=== PATIENT | male | born 1955 | race Caucasian/White ===

== ENCOUNTER 2022-12-26 10:32 | Outpatient (OUT) | payer MEDICARE, BC, SELFPAY ==
--- NOTE | 2022-12-26 10:42 | XR_ITS ---
[facility] [id number] Patient Name: FELIPE QUAN MRN: [id number] date: 1955 Sex: M Assigned Patient Location: LAB Current Patient Location: Accession/Order Number: [id number] Exam Date: 12/26/2022 10:52 Report Date: 12/27/2022 06:41 At the request of: BELLE PRUITT Procedure: XR lumbar spine 6V w bending EXAMINATION: XR lumbar spine 6V w bending HISTORY: Lumbar spondylosis M47.816 ; chronic low back pain radiating into hips and legs COMPARISON: No relevant comparison available. FINDINGS: BONES: L1 minimal grade 1 retrolisthesis on L2; stable between neutral, flexion, extension. L4 mild grade 1 anterior listhesis on L5 during flexion, with normal alignment in neutral and extension. Mild-moderate degenerative facet arthropathy L4-5, L5-S1. Bone encroachment on L5-S1 neural foramen. DISC SPACES: Marked narrowing L5-S1. Mild degenerative endplate changes without significant disc space narrowing T12-L1, L1-2. PARASPINOUS: Negative. No paraspinous abnormality is seen. OTHER: Negative. XR/XR lumbar spine 6V w bending IMPRESSION: 1. Degenerative disc disease of lower lumbar spine and multilevel mobile grade 1 listhesis of L4 on 5. Consider MRI for further evaluation. Electronically authenticated by: LUZMA YEAGER Date: 12/27/2022 06:41
[2022-12-26 11:00] LABS: Estimated Average Glucose 189 mg/dL; Glycohemoglobin A1C 8.2 % (4.5-6.2)
== END 2022-12-26 10:33 | disposition home or self-care (01) ==
LOC: LAB 10:33
PROVIDERS: PCP Internal Medicine; Visit Provider Internal Medicine
DX: E11.65 Type 2 diabetes mellitus with hyperglycemia (principal); M47.816 Spondylosis without myelopathy or radiculopathy, lumbar region; M51.36 Other intervertebral disc degeneration, lumbar region
CPT/HCPCS: 36415; 72114; 83036

== ENCOUNTER 2023-01-03 15:19 | Outpatient (RCR) | payer MEDICARE, BC, SELFPAY | END 2023-03-14 13:57 | disposition home or self-care (01) | LOC: PT 15:19 | PROVIDERS: PCP Internal Medicine; Visit Provider Internal Medicine | DX: M47.816 Spondylosis without myelopathy or radiculopathy, lumbar region (principal); M54.9 Dorsalgia, unspecified | CPT/HCPCS: 97012; 97110; 97112; 97113; 97140; 97162; 97530 ==

== ENCOUNTER 2023-04-27 07:58 | Outpatient (OUT) | payer MEDICARE, BC, SELFPAY ==
[2023-04-27 08:20] LABS: Basophils Percent Auto 0.8 % (0.2-2.0); Eosinophils Absolute Auto 0.1 10^3/uL (0.0-0.7); Eosinophils Percent Auto 2.3 % (0.9-7.0); Hematocrit 43.3 % (42.0-54.0); Hemoglobin 14.8 g/dL (14.0-18.0); Immature Granulocytes Abs Auto 0.01 10^3/uL (0.00-0.03); Immature Granulocytes Pct Auto 0.2 % (0.0-0.5); Lymphocytes Absolute Auto 0.9 10^3/uL (1.2-3.8); Lymphocytes Percent Auto 17.8 % (20.5-60.0); Mean Corpuscular HGB Conc 34.2 g/dL (29.9-35.2); Mean Corpuscular Hemoglobin 30.4 pg (25.9-34.0); Mean Corpuscular Volume 88.9 fL (80.0-94.0); Mean Platelet Volume 12.2 fL (9.5-13.5); Monocytes Absolute Auto 0.4 10^3/uL (0.3-0.8); Monocytes Percent Auto 7.4 % (1.7-12.0); Neutrophils Absolute Auto 3.5 10^3/uL (1.4-6.5); Neutrophils Percent Auto 71.5 % (43.0-75.0); Platelet Count 160 10^3/uL (150-450); Red Blood Count 4.87 10^6/uL (4.70-6.10); Red Cell Distribution Width 11.4 % (11.0-15.0); White Blood Count 4.9 10^3/uL (4.0-11.0)
[2023-04-27 08:58] LABS: Anion Gap 13.1; BUN Creatinine Ratio 15.4; Calcium 8.6 mg/dL (8.5-10.1); Carbon Dioxide 27.5 mmol/L (21.0-32.0); Chloride 102 mmol/L (98-107); Chol HDL Ratio 2.7; Cholesterol 130 mg/dL (<=200); Estimated GFR (African America >60 (>=60); Estimated GFR (Non-African Ame >60 (>=60); Glucose 184 mg/dL (74-106); HDL Cholesterol 49 mg/dL (40-60); LDL Cholesterol Calculated 56.8 mg/dL; Potassium 4.6 mmol/L (3.5-5.1); Sodium 138 mmol/L (136-145); Triglycerides 121 mg/dL (<=150); VLDL CHOLESTEROL 24.2 mg/dL
[2023-04-27 09:11] LABS: Prostate Specific Antigen Scrn 0.88 ng/mL (<=4.00)
[2023-04-27 09:14] LABS: Estimated Average Glucose 197 mg/dL; Glycohemoglobin A1C 8.5 % (4.5-6.2)
[2023-04-27 09:33] LABS: Microalbumin Urine Random <1.3 mg/dL (<=30.0)
== END 2023-04-27 07:59 | disposition home or self-care (01) ==
LOC: LAB 07:59
PROVIDERS: PCP Internal Medicine; Visit Provider Internal Medicine
DX: E11.65 Type 2 diabetes mellitus with hyperglycemia (principal); I10 Essential (primary) hypertension; E78.00 Pure hypercholesterolemia, unspecified; Z12.5 Encounter for screening for malignant neoplasm of prostate; D69.6 Thrombocytopenia, unspecified
CPT/HCPCS: 36415; 80048; 80061; 81001; 82043; 83036; 85025; G0103

== ENCOUNTER 2023-05-20 13:00 | Outpatient (OUT) | payer MEDICARE, BC, SELFPAY ==
--- NOTE | 2023-05-20 15:21 | PM.CN ---
Consult Note: HPI Data of Consult Patient: new to practice Consult date: 05/20/23 Requesting Physician: Dm Cyr MD Primary Care Provider: Bogdan Green DO Consult Narrative Reason for consult: low back pain Narrative: 67yom who presents for evaluation. worsening axial low back pain that has persisted for >1 year. underwent physical therapy in the summer and continues in a course of provider directed home exercises, which have not provided significant relief for >6 weeks >3x/week. imaging reviewed, significant for facet arthropathy in lower lumbar spine. uses otc pain meds as needed. cc:: CC: Dm Cyr MD Review of Systems ROS Status of ROS 10 or more systems reviewed and unremarkable except as noted in history and below Exam Narrative Exam Narrative: Psych-alert and oriented x 3. Attentive and appropriate, constitutionally normal, displays normal mood and affect per situation.? There are no obvious deficits in memory, reasoning, or intellect.? Skin-no obvious rashes, bruising, erythema noted to the patient's area of pain. Extremities- extremities are warm with minimal edema and palpable pulses. Lumbar-no significant tenderness to palpation noted in the lumbar spine and paraspinal musculature.? Pain is elicited with extension, and lateral rotation of the lumbar spine. Range of motion is slightly diminished with these motions due to pain. Facet loading maneuvers are positive bilaterally and do appear to be concordant with the patient's normal complaints of pain.? Coordination remains intact.? Gait remains non-antalgic. Assessment and Plan Assessment and Plan (1) Lumbar spondylosis: Plan 67yom who presents for evaluation. failed conservatives measures, as noted. imaging reviewed, as noted. given symptoms and imaging, prudent to attempt diagnostic bilateral L4-5, l5-S1 medial branch block under fluoroscopic guidance with intention of proceeding to radiofrequency ablation. he is in agreement. meds reviewed, no changes. follow up after procedure.
== END 2023-05-20 13:01 | disposition home or self-care (01) ==
LOC: PM 13:01
PROVIDERS: PCP Internal Medicine; Visit Provider Anesthesiology
DX: M47.816 Spondylosis without myelopathy or radiculopathy, lumbar region (principal)
CPT/HCPCS: G0463

== ENCOUNTER 2023-06-24 08:24 | Day surgery (SDC) | payer MEDICARE, BC, SELFPAY ==
--- OUTSIDE RECORDS SUMMARY | 2023-06-24 08:28 | XMS_ITS | CCD ---
Author Name Unknown Address [address] [place] [address] Organization [facility] Care Team Providers Care Mma Fighter Name Role Phone BOGDAN GREEN Primary Care Physician [phone] DR BOGDAN GREEN Primary Care Unavailable FRANCISCA ., DIMAS Admitting Unavailable FRANCISCA ., DIMAS Attending Unavailable FRANCISCA ., DIMAS Consulting Unavailable MARIBEL, MALENA Consulting Unavailable GUERRERO, FILIPPO Consulting Unavailable REQUEST, DR CONCEPCION LISTED Admitting Unavaila ble REQUEST, DR CONCEPCION LISTED Attending Unavaila ble PETER, DR ODONNELL Primary Care Unavailable REQUEST, DR CONCEPCION LISTED Consulting Unavaila ble REQUEST, DR CONCEPCION LISTED Admitting Unavaila ble REQUEST, DR CONCEPCION LISTED Attending Unavaila ble BALL, DR ODONNELL Primary Care Unavailable REQUEST, DR CONCEPCION LISTED Consulting Unavaila ble BALL, DR ODONNELL Admitting Unavailable BALL, DR ODONNELL Attending Unavailable BALL, DR ODONNELL Primary Care Unavailable BALL, DR ODONNELL Admitting Unavailable BALL, DR ODONNELL Attending Unavailable BALL, DR ODONNELL Primary Care Unavailable BALL, DR ODONNELL Consulting Unavailable AMBRIZ ., DR VAUGHN Admitting Unavailable AMBRIZ ., DR VAUGHN Attending Unavailable BALL, DR ODONNELL Primary Care Unavailable AMBRIZ ., DR VAUGHN Consulting Unavailable BALL, DR ODONNELL Admitting Unavailable BALL, DR ODONNELL Attending Unavailable BALL, DR ODONNELL Primary Care Unavailable BALL, DR ODONNELL Consulting Unavailable Peter, Bogdan Unavailable Hola AMBRIZ Attending Unavailable Hola AMBRIZ Attending Unavailable Klarissa MCMANUS, Dm Santos Attending Unavailable Allergies Allergy Classification Reported Allergen(s) Allergy Type Date of Onset Reaction(s) Facility (1 source) No Known Medication Allergies; 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: [No Known Medication Allergies] Propensity to adverse reactions (disorder) [facility] Repository (2 sources) patient allergy list reviewed by nurse or physicia Propensity to adverse reactions 6 Comment:Done [employer] Other Medications Current Medications Medication Drug Class(es) Dates Sig (Normalized) Sig (Original) allopurinol 100 mg oral tablet (9 sources) Xanthine Oxidase Inhibitor Start: 10-06-2021 take 1 mg by mouth twice daily allopurinol 100 mg Tab mg tab(s), Oral, BID, Refills(s) 0 Start Date: 10/06/21 Status: Ordered take 1 tablet by osbaldo th every twenty-four hours Allopurinol 100 MG 1 tablet Orally Once a day for 30 days Active amLODIPine 5 mg oral tablet (10 sources) Dihydropyridine Calcium Channel Andrew Start: 10-22-2022 take 1 tablet by mouth every twenty-four hours amLODIPine Besylate 5 MG 1 tablet Orally Once a day October, Active atorvastatin 10 mg oral tablet (17 sources) HMG-CoA Reductase Inhibitor Start: 11-09-2022 atorvastatin 10 mg Tab Refills(s) 0 Start Date: 11/09/22 Status: Ordered benazepril hydrochloride 5 mg oral tablet (18 sources) Angiotensin Converting Enzyme Inhibitor Start: 03-25-2019 take 1 tablet by mouth once daily benazepril 5 mg oral tablet 5 mg = 1 tab(s), Oral, Daily Start Date: 03/25/19 Status: Ordered take 1 tablet by osbaldo th every twenty-four hours Benazepril HCl 20 MG 1 tablet Orally Onc e a day Active take 1 tablet by osbaldo th every twenty-four hours Benazepril HCl 10 MG 1 tablet Orally Onc e a day for 30 days Active 0.5 ml dulaglutide 3 mg/ml auto-injector (17 sources) GLP-1 Receptor Agonist Start: 08-23-2022 inject 1.5 mg by subcutaneous injection every week Trulicity 1.5 MG/0.5ML 1.5mg Subcutaneous weekly for 28 days Aug, Active Start: 10-03-2020 Trulicity Pen SubCutaneous, qWeek, Refills(s) 0 Start Date: 10/03/20 Status: Ordered Trulicity 3 MG/0 .5ML INJECT 1 PEN UNDER THE SKIN ONCE A WEEK for 28 Not-Taking Trulicity 3 MG/0 .5ML INJECT 1 PEN UNDER THE SKIN ONCE A WEEK for 28 Active finasteride 5 mg oral tablet (9 sources) 5-alpha Reductase Inhibitor Start: 11-09-2022 End: 11-04-2023 take 1 tablet by mouth once daily finasteride 5 mg Tab 5 mg = 1 tab(s), Oral, Daily, X 90 day(s), # 90 tab(s), Refills(s) 3, Pharmacy: [facility]/pharmacy #[id number], 195, cm, 11/09/22 11:00:00 EDT, Height/Length Dosing, 111, kg, 11/09/22 11:00:00 EDT, Weight Dosing Start Date: 11/09/22 Stop Date: 11/04/23 Status: Ordered Start: 10-06-2021 take 1 tablet by osbaldo th once daily finasteride 5 mg Tab 5 mg = 1 tab(s), Oral, Daily, # 90 tab(s), Refills(s) 3, Pharmacy: [facility]/pharmacy #[id number], 195, cm, 10/06/21 8:16:00 EDT, Height/Length Dosing, 109.5, kg, 10/06/21 8:16:00 EDT, Weight Dosing Start Date: 10/06/21 Status: Ordered take 1 tablet by osbaldo th every twelve hours Finasteride 5 MG 1 tablet Orally twice a day Active glimepiride 4 mg oral tablet (17 sources) Sulfonylurea Start: 11-09-2022 glimepiride 4 mg Tab Refills(s) 0 Start Date: 11/09/22 Status: Ordered take 2 tablets by mo [facility] every twenty-four hours Glimepiride 4 MG 2 tablets Orally once a day Active Glimepiride 4 MG 2 tablets taken 30 minutes prior to first meal of day Orally Once a day Active 3 ml insulin glargine 100 unt/ml pen injector (20 sources) Insulin Analog Start: 11-09-2022 Lantus Solosta r Pen 100 units/mL subcutaneous solution Refills(s) 0 Start Date: 11/09/22 Status: Ordered Start: 09-25-2022 Lantus SoloSta r 100 UNIT/ML 25 units Subcutaneous q HS Sep, Active Start: 09-25-2022 inject 10 [IU] by coley bcutaneous injection once at bedtime Basaglar KwikPen 100 UNIT/ML 10 units Subcutaneous q HS for 30 days Sep, Not-Taking Start: 09-25-2022 metFORMIN hydrochloride 1000 mg oral tablet (18 sources) Biguanide Start: 03-25-2019 take 1 tablet by mouth twice daily metformin 1000 mg Tab 1,000 mg = 1 tab(s), Oral, BID Start Date: 03/25/19 Status: Ordered omeprazole 20 mg oral tablet (7 sources) Proton Pump Inhibitor take 1 tablet by mouth once daily PriLOSEC OTC 20 MG 1 tablet 30 minutes before morning meal Orally Once a day Active OneTouch Ultra - (16 sources) OneTouch Ultra - USE TO TEST BLOOD SUGAR ONCE A DAY for 50 Active Pen [place] 10/30 (12 sources) Start: 09-27-2022 Start: 09-27-2022 Pen [place] Use to inject insulin qd SC daily for 30 days Sep, Active tamsulosin hydrochloride 0.4 mg oral capsule (9 sources) alpha-Adrenergic Andrew Start: 10-06-2021 End: 10-27-2023 take 1 capsule by mouth twice daily tamsulosin 0.4 mg Cap 0.4 mg = 1 cap(s), Oral, BID, X 30 day(s), # 60 cap(s), Refills(s) 11, Pharmacy: [facility]/pharmacy #[id number], 195, cm, 10/06/21 8:16:00 EDT, Height/Length Dosing, 109.5, kg, 10/06/21 8:16:00 EDT, Weight Dosing Start Date: 11/01/22 Stop Date: 10/27/23 Status: Ordered {20 (nirmatrelvir 150 MG Oral Tablet) / 10 (ritonavir 100 MG Oral Tablet) } Pack [Paxlovid 5-Day] (1 source) Start: 05-10-2023 Paxlovid (300/100) 20 x 150 MG & 10 x 100MG as directed Orally bid for 5 days Apr, Active Completed/Discontinued Medications Medication Drug Class(es) Dates Sig (Normalized) Sig (Original) ascorbic acid 4700 mg / polyethylene glycol 3350 [id number] mg / potassium chloride 1015 mg / sodium ascorbate 5900 mg / sodium chloride 2690 mg / sodium sulfate 7500 mg powder for oral solution (16 sources) Osmotic Laxative, Vitamin C Start: 04-07-2014 MoviPrep 100 GM as directed Orally as directed for 1 dose(s) Mar, Not-Taking azithromycin 250 mg oral tablet (7 sources) Macrolide Antimicrobial Start: 11-26-2022 Azithromycin 250 MG as directed Orally 2 tabs po today, then 1 tab daily x 4 more days for 5 Nov, Not-Taking benzonatate 200 mg oral capsule (7 sources) Non-narcotic Antitussive Start: 11-26-2022 take 1 capsule by mouth every eight hours Benzonatate 200 MG 1 capsule Orally Three times a day for 10 day(s) Nov, Not-Taking pioglitazone 15 mg oral tablet (14 sources) Peroxisome Proliferator Receptor alpha Agonist, Peroxisome Proliferator Receptor gamma Agonist, Thiazolidinedione Start: 09-21-2022 take 1 tablet by mouth every twenty-four hours Pioglitazone HCl 15 MG 1 tablet Orally Once a day for 30 days Sep, Not-Taking Problems Active Problems Problem Classification Problem Date Documented Date Episodic/Chronic Coagulation and hemorrhagic disorders (10 sources) Primary thrombocytopenia; 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: [Primary thrombocytopenia, unspecified] Onset: 09-20-2018 Chronic Conditions associated with dizziness or vertigo (1 source) Dizziness and giddiness; 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: [DIZZINESS AND GIDDINESS] Onset: 07-03-2022 Episodic Diabetes mellitus with complications (20 sources) Type 2 diabetes mellitus with hyperglycemia; 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: [Type 2 diabetes mellitus] Onset: 02-10-2015 Chronic Diabetes mellitus without complication (13 sources) Diabetes mellitus; 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: [Type 2 diabetes mellitus without complications] Onset: 12-15-2013 03-25-2019 Chronic Disorders of lipid metabolism (20 sources) Pure hypercholesterolemia, unspecified; 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: [Hypercholesterolemia ] Onset: 06-07-2015 Chronic Esophageal disorders (20 sources) Gastro-esophageal reflux disease with esophagitis; 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: [Gastroesophageal reflux disease with esophagitis without hemorrhage] Chronic Essential hypertension (20 sources) Essential (primary) hypertension; 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: [Essential hypertension] Onset: 04-23-2022 Chronic Genitourinary symptoms and ill-defined conditions (4 sources) Blood in urine; 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: [Nocturia] 03-25-2019 Episodic Gout and other crystal arthropathies (8 sources) Gout; 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: [Idiopathic gout, right knee] Onset: 04-18-2022 03-25-2019 Chronic Hyperplasia of prostate (12 sources) Benign prostatic hypertrophy with outflow obstruction; 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: [Benign prostatic hyperplasia with lower urinary tract symptoms] Onset: 03-05-2014 Chronic Osteoarthritis (4 sources) Osteoarthritis of knee; 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: [Bilateral primary osteoarthritis of knee] Onset: 05-09-2015 Chronic Other aftercare (1 source) Other prison (current) drug therapy; 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: [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 THERAPY] Onset: 07-03-2022 Episodic Other aftercare (1 source) prison (current) use of oral hypoglycemic drugs; 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: [SKILLED NURSING USE ORAL HYPOGLYCEMIC DX] Onset: 07-03-2022 Episodic Other aftercare (12 sources) Long-term current use of insulin; 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: [prison (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] Episodic Other aftercare (2 sources) 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 Episodic Other aftercare (2 sources) Long-term current use of drug therapy; 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: [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] Episodic Other and unspecified benign neoplasm (13 sources) Tubular adenoma of colon; 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: [Tubular adenoma of colon] Episodic Other and unspecified benign neoplasm (16 sources) Benign neoplasm of colon; 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: [Benign neoplasm of descending colon] Episodic Other and unspecified benign neoplasm (2 sources) Benign neoplasm of descending colon; 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: [Benign neoplasm of descending colon] Episodic Other connective tissue disease (3 sources) Personal history of other diseases of the musculoskeletal system and connective tissue Episodic Other connective tissue disease (2 sources) H/O: musculoskeletal disease; 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: [Personal history of other diseases of the musculoskeletal system and connective tissue] Episodic Other nutritional; endocrine; and metabolic disorders (7 sources) Body mass index 30+ - obesity; 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: [Body mass index (BMI) 31.0-31.9, adult] Chronic Other nutritional; endocrine; and metabolic disorders (7 sources) Obesity caused by energy imbalance; 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: [Other obesity due to excess calories] Chronic Other nutritional; endocrine; and metabolic disorders (1 source) Other obesity due to excess calories Chronic Other nutritional; endocrine; and metabolic disorders (1 source) Body mass index (BMI) 31.0-31.9, adult Chronic Other nutritional; endocrine; and metabolic disorders (2 sources) Obesity; 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: [Obesity, unspecified] Onset: 12-15-2013 Chronic Other nutritional; endocrine; and metabolic disorders (4 sources) Overweight; 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: [Overweight] Onset: 05-09-2015 Episodic Other screening for suspected conditions (not mental disorders or infectious disease) (5 sources) Raised prostate specific antigen; 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: [Elevated prostate specific antigen [PSA]] Onset: 10-06-2021 Episodic Spondylosis; intervertebral disc disorders; other back problems (20 sources) Lumbar spondylosis; 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: [Spondylosis without myelopathy or radiculopathy, lumbar region] Chronic Unclassified (1 source) CONTACT W/AND (SUSP) EXPOS COVID-19; 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: [CONTACT W/AND (SUSP) EXPOS COVID-19] Onset: 07-03-2022 Past or Other Problems Problem Classification Problem Date Documented Da te Episodic/Chronic Acute bronchitis (2 sources) Acute bronchitis; 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: [Acute bronchitis, unspecified] Onset: 07-13-2015 Episodic Esophageal disorders (4 sources) Esophageal disorders; 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: [Gastro-esophageal reflux disease with esophagitis, without bleeding] Hemorrhoids (4 sources) External hemorrhoids; 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: [External hemorrhoids with other complication] Onset: 11-30-2016 Episodic Joint disorders and dislocations; trauma-related (2 sources) Current tear of medial cartilage AND/OR meniscus of knee; 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: [Tear of medial cartilage or meniscus of knee, current] Onset: 02-10-2015 Episodic Malaise and fatigue (6 sources) Weakness; 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: [Malaise and fatigue] Onset: 04-26-2018 Episodic Nonspecific chest pain (2 sources) Chest pain; 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: [Other chest pain] Onset: 06-07-2015 Episodic Other connective tissue disease (2 sources) Disorder of soft tissue; 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: [Other specified soft tissue disorders] Onset: 12-15-2013 Episodic Other lower respiratory disease (2 sources) Cough; 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: [Cough, unspecified] Onset: 07-13-2015 Episodic Other non-traumatic joint disorders (2 sources) Arthralgia of the lower leg; 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: [Pain in unspecified knee] Onset: 12-15-2013 Episodic Other nutritional; endocrine; and metabolic disorders (4 sources) Body mass index 25-29 - overweight; 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: [Body mass index 28.0-28.9, adult] Onset: 07-13-2015 Episodic Varicose veins of lower extremity (4 sources) Venous varices; 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: [Asymptomatic varicose veins] Onset: 12-15-2013 Episodic Viral infection (1 source) COVID-19 Results Test Name Value Interpretation Reference Range Facility GLYCOHEMOGLOBIN A1Con 2022 ADA RECOMMENDATION SEE BELOW Normal [facility] Comment on above: Result Comment: ADA RECOMMENDED LIMIT 4.0 - 6.0 ADA THERAPEUTIC TARGET < 7.0 ACTION SUGGESTED > 7.0 Performed By: #### B MP, LIPID, ALT, URIC #### [facility] [address] [address] [address] Jorge L Carey Glucose [Mass/Vol] 148 mg/dL Normal [facility] Comment on above: Performed By: #### B MP, LIPID, ALT, URIC #### [facility] [address] [address] [address] Jorge L Carey HbA1c (Bld) [Mass fraction] 6.8 % Critically high 4.5-6.2 [facility] Comment on above: Performed By: #### B MP, LIPID, ALT, URIC #### [facility] [address] [address] [address] Jorge L Carey CARDIAC DANAY ADMITon 023 CK [Catalytic activity/Vol] 59 U/L Normal 39-308 [facility] Comment on above: Performed By: #### C MP, CMADM #### [facility] [address] [address] [address] Jorge L Carey CK.MB [Mass/Vol] 0.99 ng/mL Normal <=3.60 [facility] Comment on above: Performed By: #### C MP, CMADM #### [facility] [address] [address] [address] Jorge L Carey HSTROP 10.0 pg/mL Normal 4.0-76.1 [facility] Comment on above: Result Comment: CUT- OFF POINTS HAVE BEEN ESTABLISHED BASED ON THE FOURTH UNIVERSAL DEFINITIONS OF MYOCARDIAL INFARCTION. THE UPPER REFERENCE LIMIT (URL) OF TROPONIN, DEFINED THE 99TH PERCENTILE OF cTnI DISTRIBUTION IN A REFERENCE POPULATION, HAS BEEN CONFIRMED THE DECISION THRESHOLD FOR SD DIAGNOSIS. Performed By: #### C MP, CMADM #### [facility] [address] [address] [address] Jorge L Carey GARLAND 52 ng/mL Normal 16-96 [facility] Comment on above: Performed By: #### C MP, CMADM #### [facility] [address] [place] [address] Dr. Jorge L Carey CBC AUTO DIFFon 07-01-2022 BASO # 0.0 103/ul Normal 0.0-0.1 [facility] Comment on above: Performed By: #### B MP, LIPID, ALT, URIC #### [facility] [address] [place] [address] Dr. Jorge L Carey Basophils/100 WBC (Bld) 0.3 % Normal 0.2-2.0 [facility] Comment on above: Performed By: #### B MP, LIPID, ALT, URIC #### [facility] [address] [place] [address] Dr. Jorge L Carey EO # 0.1 103/ul Normal 0.0-0.7 [facility] Comment on above: Performed By: #### B MP, LIPID, ALT, URIC #### [facility] [address] [place] [address] Dr. Jorge L Carey Eosinophils/100 WBC (Bld) 0.9 % Normal 0.9-7.0 [facility] Comment on above: Performed By: #### B MP, LIPID, ALT, URIC #### [facility] [address] [place] [address] Dr. Jorge L Carey Erythrocyte distribution width (RBC) [Ratio] 11.7 % Normal 11.0-15.0 [facility] Comment on above: Performed By: #### B MP, LIPID, ALT, URIC #### [facility] [address] [place] [address] Dr. Jorge L Carey Hematocrit (Bld) [Volume fraction] 41.1 % Critically low 42.0-54.0 [facility] Comment on above: Performed By: #### B MP, LIPID, ALT, URIC #### [facility] [address] [place] [address] Dr. Jorge L Carey Hemoglobin (Bld) [Mass/Vol] 14.5 g/dL Normal 14.0-18.0 [facility] Comment on above: Performed By: #### B MP, LIPID, ALT, URIC #### [facility] [address] [place] [address] Dr. Jorge L Carey IG # 0.02 10e3/ul Normal 0.00-0.03 [facility] Comment on above: Performed By: #### B MP, LIPID, ALT, URIC #### [facility] [address] [place] [address] Dr. Jorge L Carey IG % 0.3 % Normal 0.0-0.5 [facility] Comment on above: Performed By: #### B MP, LIPID, ALT, URIC #### [facility] [address] [place] [address] Dr. Jorge L Carey LYMPH # 1.1 103/ul Critically low 1.2-3.8 [facility] Comment on above: Performed By: #### B MP, LIPID, ALT, URIC #### [facility] [address] [place] [address] Dr. Jorge L Carey Lymphocytes/100 WBC (Bld) 16.6 % Critically low 20.5-60.0 [facility] Comment on above: Performed By: #### B MP, LIPID, ALT, URIC #### [facility] [address] [place] [address] Dr. Jorge L Carey MANUAL DIFF REQ NO Normal [facility] Comment on above: Performed By: #### B MP, LIPID, ALT, URIC #### [facility] [address] [place] [address] Dr. Jorge L Carey MCH (RBC) [Entitic mass] 30.1 pg Normal 25.9-34.0 [facility] Comment on above: Performed By: #### B MP, LIPID, ALT, URIC #### [facility] [address] [place] [address] Dr. Jorge L Carey MCHC (RBC) [Mass/Vol] 35.3 g/dL Critically high 29.9-35.2 [facility] Comment on above: Performed By: #### B MP, LIPID, ALT, URIC #### [facility] [address] [place] [address] Dr. Jorge L Carey MCV (RBC) [Entitic vol] 85.4 fL Normal 80.0-94.0 [facility] Comment on above: Performed By: #### B MP, LIPID, ALT, URIC #### [facility] [address] [place] [address] Dr. Jorge L Carey MONO # 0.4 103/ul Normal 0.3-0.8 [facility] Comment on above: Performed By: #### B MP, LIPID, ALT, URIC #### [facility] [address] [place] [address] Dr. Jorge L Carey Monocytes/100 WBC (Bld) 5.1 % Normal 1.7-12.0 [facility] Comment on above: Performed By: #### B MP, LIPID, ALT, URIC #### [facility] [address] [place] [address] Dr. Jorge L Carey NEUT # 5.3 103/ul Normal 1.4-6.5 [facility] Comment on above: Performed By: #### B MP, LIPID, ALT, URIC #### [facility] [address] [place] [address] Dr. Jorge L Carey Neutrophils/100 WBC (Bld) 76.8 % Critically high 43.0-75.0 [facility] Comment on above: Performed By: #### B MP, LIPID, ALT, URIC #### [facility] [address] [place] [address] Dr. Jorge L Carey Platelet mean volume (Bld) [Entitic vol] 12.1 fL Normal 9.5-13.5 [facility] Comment on above: Performed By: #### B MP, LIPID, ALT, URIC #### [facility] [address] [place] [address] Dr. Jorge L Carey PLT 147 103/ul Critically low 150-450 [facility] Comment on above: Performed By: #### B MP, LIPID, ALT, URIC #### [facility] [address] [place] [address] Dr. Jorge L Carey RBC 4.81 106/ul Normal 4.70-6.10 [facility] Comment on above: Performed By: #### B MP, LIPID, ALT, URIC #### [facility] [address] [place], [place] [address] Dr. Jorge L Carey WBC 6.9 103/ul Normal 4.0-11.0 [facility] Comment on above: Performed By: #### B MP, LIPID, ALT, URIC #### [facility] [address] [place], [place] [address] Dr[address] HEAD WO CONon 07-01-2022 CT HEAD WO CON NONCONTRAST CT SCAN OF THE HEAD CT HEAD WO CON HISTORY: HEADACHE in a 66-year-old male TECHNIQUE: Multiple axial images are taken from the level the vertex down to the base of the skull without the use of IV contrast. Images were then reconstructed in the sagittal and coronal planes. This exam was performed according to our departmental dose-optimization program which includes use of Automated Exposure Control, adjustment of the mA and/or kV according to patient size and/or use of iterative reconstruction technique. COMPARISON: None. FINDINGS: Brain Parenchyma: No intracranial mass. No intracranial hemorrhage. [place]-white matter within expected limits of normal for patient's age. Posterior fossa: Normal. Midline shift: None Extra-axial fluid collection: None Ventricles: Normal. Mastoid air cells: Normal. Sinuses: Normal. Cranium: No depressed skull fracture. Soft tissues: Normal. Orbits: Normal. IMPRESSION: 1. No noncontrast CT evidence for acute intracranial pathology. 2. If symptoms continue and if clinically indicated, MRI may help better delineate. Electronically authenticated by: MALENA LÓPEZ Date: 2022-07-01 20:24 Normal [facility] SARS-CoV-2 (COVID-19) RNA EDVIN+probe Ql (Unsp spec) Not detected Normal NOT DETECTED [facility] Comment on above: Result Comment: When diagnostic testing is negative, the possibility of a false negative should be considered in the context of a patient's recent exposures and the presence of clinical signs and symptoms consistent with SARS-CoV-2. This test is not yet approved or cleared by the [place] FDA. When there are no FDA-approved or cleared tests available, and other criteria are met, FDA can make tests available under an emergency access mechanism called an Emergency Use Authorization (EUA). The EUA for this test is supported by the [place] of Health and Human Service's declaration that circumstances exist to justify the emergency use of in vitro diagnostics for the detection and/or diagnosis of the virus that causes COVID-19. This EUA will remain in effect for the duration of the COVID-19 declaration justifying emergency of IVDs, unless it is terminated or revoked by the FDA (after which the test may no longer be used). Performed By: #### C VDTBH #### [facility] [address] [place] [address] Dr. Jorge L Carey D-DIMERon 07-01-2022 D-DIMER 0.21 mg/L FEU Normal <=0.59 [facility] Comment on above: Performed By: #### B MP, LIPID, ALT, URIC #### [facility] [address] [place] [address] Dr. Jorge L Carey D-DIMER COMMENTS SEE BELOW Normal [facility] Comment on above: Result Comment: Incr eases in D-Dimer concentration observed with thromboembolic events can be variable due to localization, size, and age of the thrombus. Therefore, a thromboembolic event cannot be diagnosed with certainty on the basis of the reference range. D-Dimers may also be elevated for a variety of disorders including: advanced age, , coronary disease, cancer, liver disease, infection, inflammation, hematoma, DIC, trauma, post-surgery, diabetes, thrombolytic or anticoagulant therapy, stress, and generalized hospitalization. Performed By: #### B MP, LIPID, ALT, URIC #### [facility] [address] [place] [address] Dr. Jorge L Carey ER URINE PROFILEon 3 Bilirubin Ql (U) Negative Normal NEGATIVE [facility] Comment on above: Performed By: #### B MP, LIPID, ALT, URIC #### [facility] [address] [place] [address] Dr. Jorge L Carye Clarity (U) CLEAR Normal CLEAR [facility] Comment on above: Performed By: #### B MP, LIPID, ALT, URIC #### [facility] [address] [place] [address] Dr. Jorge L Carey Color (U) LT. YELLOW Normal YELLOW [facility] Comment on above: Performed By: #### B MP, LIPID, ALT, URIC #### [facility] [address] [place] [address] Dr. Jorge L HERNANDEZ A micrscopic examination will be performed if indicated. Normal [facility] Comment on above: Performed By: #### B MP, LIPID, ALT, URIC #### [facility] [address] [address] [address] Jorge L Carey Glucose Ql (U) Negative Normal NEGATIVE [facility] Comment on above: Performed By: #### B MP, LIPID, ALT, URIC #### [facility] [address] [place] [address] Dr. Jorge L Carey Hemoglobin Ql (U) Negative Normal NEGATIVE [facility] Comment on above: Performed By: #### B MP, LIPID, ALT, URIC #### [facility] [address] [place] [address] Dr. Jorge L Carey Ketones Ql (U) Negative Normal NEGATIVE [facility] Comment on above: Performed By: #### B MP, LIPID, ALT, URIC #### [facility] [address] [place] [address] Dr. Jorge L Carey LEUKOCYTES Negative Normal NEGATIVE [facility] Comment on above: Performed By: #### B MP, LIPID, ALT, URIC #### [facility] [address] [place] [address] Dr. Jorge L Carey Nitrite Ql (U) Negative Normal NEGATIVE [facility] Comment on above: Performed By: #### B MP, LIPID, ALT, URIC #### [facility] [address] [place] [address] Dr. Jorge L Carey pH (U) 6.0 [pH] Normal 5-9 [facility] Comment on above: Performed By: #### B MP, LIPID, ALT, URIC #### [facility] [address] [place] [address] Dr. Jorge L Carey SPEC GRAVITY 1.020 Normal 1.005-<=1.025 [facility] Comment on above: Performed By: #### B MP, LIPID, ALT, URIC #### [facility] [address] [place] [address] Dr. Jorge L Carey UA PROTEIN Negative Normal NEGATIVE/ TRACE [facility] Comment on above: Performed By: #### B MP, LIPID, ALT, URIC #### [facility] [address] [place] [address] Dr. Jorge L Carey UR MICRO IND NOT INDICATED Normal [facility] Comment on above: Performed By: #### B MP, LIPID, ALT, URIC #### [facility] [address] [place] [address] Dr. Jorge L Carey Urobilinogen Qn (U) 1.0 {Ila'U}/dL Normal 0.2 - 1. 0 [facility] Comment on above: Performed By: #### B MP, LIPID, ALT, URIC #### [facility] [address] [place] [address] Dr. Jorge L Carey INFLUENZA A AND B AGon 07-01 [facility] SEE BELOW Normal [facility] Comment on above: Result Comment: Nega tive for Flu A protein angiten. Infection due to Flu A cannot be ruled out. Flu A angiten in the sample may be below the detection limit of the test. Performed By: #### I NFLUAB #### [facility] [address] [place] [address] Dr. [facility] L [facility] Normal [facility] Comment on above: Result Comment: Nega tive for Flu B protein antigen. Infection due to Flu B cannot be ruled out. Flu B antigen in the sample may be below the detection limit of the test. Performed By: #### I NFLUAB #### [facility] [address] [place] [address] Dr. Jorge L Carey INFLUENZA A AG Negative Normal NEGATIVE SEE COMMENT [facility] Comment on above: Performed By: #### I NFLUAB #### [facility] [address] [place] [address] Dr. Jorge L Carey INFLUENZA B AG Negative Normal NEGATIVE SEE COMMENT [facility] Comment on above: Performed By: #### I NFLUAB #### [facility] [address] [address] [address] Jorge L Carey POINT OF CARE GLUCOSEon 06-17 Glucose [Mass/Vol] 130 mg/dL Critically high 74-106 T [facility] Comment on above: Performed By: #### B MP, LIPID, ALT, URIC #### [facility] [address] [address] [address] Jorge L Carey PROF 14(COMP METB)on 023 Albumin [Mass/Vol] 3.7 g/dL Normal 3.4-5.0 [facility] Comment on above: Performed By: #### C IGGY, CMADM #### [facility] [address] [place] [address] Dr. Jorge L Carey Albumin/Globulin [Mass ratio] 1.2 {ratio} Normal [facility] Comment on above: Performed By: #### C IGGY, CMADM #### [facility] [address] [place] [address] Dr. Jorge L Carey ALP [Catalytic activity/Vol] 49 U/L Normal 46-116 [facility] Comment on above: Performed By: #### C IGGY, CMADM #### [facility] [address] [place] [address] Dr. Jorge L Carey ALT [Catalytic activity/Vol] 30 U/L Normal 16-63 [facility] Comment on above: Performed By: #### C IGGY, CMADM #### [facility] [address] [address] [address] Jorge L Carey Anion gap [Moles/Vol] 12.7 mmol/L Normal [facility] Comment on above: Performed By: #### C IGGY, CMADM #### [facility] [address] [place] [address] Dr. Jorge L Carey AST [Catalytic activity/Vol] 21 U/L Normal 15-37 [facility] Comment on above: Performed By: #### C IGGY, CMADM #### [facility] [address] [address] [address] Jorge L Carey Bilirubin [Mass/Vol] 0.5 mg/dL Normal 0.2-1.0 [facility] Comment on above: Performed By: #### C IGGY, CMADM #### [facility] [address] [place] [address] Dr. Jorge L Carey Calcium [Mass/Vol] 8.9 mg/dL Normal 8.5-10.1 [facility] Comment on above: Performed By: #### C IGGY, CMADM #### [facility] [address] [place] [address] Dr. Jorge L Carey Chloride [Moles/Vol] 100 mmol/L Normal 98-107 [facility] Comment on above: Performed By: #### C IGGY, CMADM #### [facility] [address] [place] [address] Dr. Jorge L Carey CO2 [Moles/Vol] 29.0 mmol/L Normal 21.0-32.0 [facility] Comment on above: Performed By: #### C IGGY, CMADM #### [facility] [address] [place] [address] Dr. Jorge L Carey Creatinine [Mass/Vol] 1.04 mg/dL Normal 0.70-1.30 [facility] Comment on above: Performed By: #### C IGGY, CMADM #### [facility] [address] [place] [address] Dr. Jorge L Carey EGFR-AF BAHRAINI >60 Normal >=60 [facility] Comment on above: Performed By: #### C IGGY, CMADM #### [facility] [address] [place] [address] Dr. Jorge L Carey EGFR-NON AF BAHRAINI >60 Normal >=60 [facility] Comment on above: Performed By: #### C IGGY, CMADM #### [facility] [address] [place] [address] Dr. Jorge L Carey Globulin (S) [Mass/Vol] 3.1 g/dL Normal [facility] Comment on above: Performed By: #### C IGGY, CMADM #### [facility] [address] [place] [address] Dr. Jorge L Carey Glucose [Mass/Vol] 140 mg/dL Critically high 74-106 T [facility] Comment on above: Performed By: #### C MP, CMADM #### [facility] [address] [place] [address] Dr. Jorge L Carey Potassium [Moles/Vol] 3.7 mmol/L Normal 3.5-5.1 [facility] Comment on above: Performed By: #### C MP, CMADM #### [facility] [address] [place] [address] Dr. Jorge L Carey Protein [Mass/Vol] 6.8 g/dL Normal 6.4-8.2 [facility] Comment on above: Performed By: #### C MP, CMADM #### [facility] [address] [place] [address] Dr. Jorge L Carey Sodium [Moles/Vol] 138 mmol/L Normal 136-145 [facility] Comment on above: Performed By: #### C MP, CMADM #### [facility] [address] [place] [address] Dr. Jorge L Carey Urea nitrogen [Mass/Vol] 13.0 mg/dL Normal 7.0-18.0 [facility] Comment on above: Performed By: #### C IGGY, CMADM #### [facility] [address] [place] [address] Dr. Jorge L Carey Urea nitrogen/Creatinine [Mass ratio] 12.5 mg/mg Normal [facility] Comment on above: Performed By: #### C MP, CMADM #### [facility] [address] [place] [address] Dr. Jorge L Carey TROPONIN, HIGH SENSITIVITYon 07-01-2022 HSTROP 10.9 pg/mL Normal 4.0-76.1 [facility] Comment on above: Result Comment: CUT- OFF POINTS HAVE BEEN ESTABLISHED BASED ON THE FOURTH UNIVERSAL DEFINITIONS OF MYOCARDIAL INFARCTION. THE UPPER REFERENCE LIMIT (URL) OF TROPONIN, DEFINED THE 99TH PERCENTILE OF cTnI DISTRIBUTION IN A REFERENCE POPULATION, HAS BEEN CONFIRMED THE DECISION THRESHOLD FOR SD DIAGNOSIS. Performed By: #### B MP, LIPID, ALT, URIC #### [facility] [address] [place] [address] Dr. Jorge L Carey XR CHEST 1 Von 07-01-2022 XR CHEST 1 V EXAMINATION: XR CHES T 1 V HISTORY: Shortness of breath COMPARISON: None. TECHNIQUE: Portable chest FINDINGS: The lung parenchyma is free of consolidation or infiltrate. No pneumothorax or pleural effusion. The cardiac, mediastinal and hilar contours are normal. The visualized osseous structures exhibit no gross abnormality. IMPRESSION: No acute cardiopulmonary abnormality. Electronically authenticated by: FILIPPO MASTERS Date: 2022-07-01 19:57 Normal [facility] CBC AUTO DIFFon 04-18-2022 BASO # 0.0 103/ul Normal 0.0-0.1 [facility] Comment on above: Performed By: #### C BC #### [facility] [address] [place] [address] Dr. Jorge L Carey Basophils/100 WBC (Bld) 0.7 % Normal 0.2-2.0 [facility] Comment on above: Performed By: #### C BC #### [facility] [address] [place] [address] Dr. Jorge L Carey EO # 0.2 103/ul Normal 0.0-0.7 [facility] Comment on above: Performed By: #### C BC #### [facility] [address] [place] [address] Dr. Jorge L Carey Eosinophils/100 WBC (Bld) 2.6 % Normal 0.9-7.0 [facility] Comment on above: Performed By: #### C BC #### [facility] [address] [place] [address] Dr. Jorge L Carey Erythrocyte distribution width (RBC) [Ratio] 11.5 % Normal 11.0-15.0 [facility] Comment on above: Performed By: #### C BC #### [facility] [address] [place] [address] Dr. Jorge L Carey Hematocrit (Bld) [Volume fraction] 44.7 % Normal 42.0-54.0 [facility] Comment on above: Performed By: #### C BC #### [facility] [address] [place] [address] Dr. Jorge L Carey Hemoglobin (Bld) [Mass/Vol] 15.5 g/dL Normal 14.0-18.0 [facility] Comment on above: Performed By: #### C BC #### [facility] [address] [place] [address] Dr. Jorge L Carey IG # 0.01 10e3/ul Normal 0.00-0.03 [facility] Comment on above: Performed By: #### C BC #### [facility] [address] [place] [address] Dr. Jorge L Carey IG % 0.2 % Normal 0.0-0.5 [facility] Comment on above: Performed By: #### C BC #### [facility] [address] [place] [address] Dr. Jorge L Carey LYMPH # 1.3 103/ul Normal 1.2-3.8 [facility] Comment on above: Performed By: #### C BC #### [facility] [address] [place] [address] Dr. Jorge L Carey Lymphocytes/100 WBC (Bld) 21.3 % Normal 20.5-60.0 [facility] Comment on above: Performed By: #### C BC #### [facility] [address] [place] [address] Dr. Jorge L Carey MANUAL DIFF REQ NO Normal [facility] Comment on above: Performed By: #### C BC #### [facility] [address] [place] [address] Dr. Jorge L Carey MCH (RBC) [Entitic mass] 30.1 pg Normal 25.9-34.0 [facility] Comment on above: Performed By: #### C BC #### [facility] [address] [place] [address] Dr. Jorge L Carey MCHC (RBC) [Mass/Vol] 34.7 g/dL Normal 29.9-35.2 [facility] Comment on above: Performed By: #### C BC #### [facility] [address] [place] [address] Dr. Jorge L Carey MCV (RBC) [Entitic vol] 86.8 fL Normal 80.0-94.0 [facility] Comment on above: Performed By: #### C BC #### [facility] [address] [place] [address] Dr. Jorge L Carey MONO # 0.4 103/ul Normal 0.3-0.8 [facility] Comment on above: Performed By: #### C BC #### [facility] [address] [place] [address] Dr. Jorge L Carey Monocytes/100 WBC (Bld) 7.2 % Normal 1.7-12.0 [facility] Comment on above: Performed By: #### C BC #### [facility] [address] [place] [address] Dr. Jorge L Carey NEUT # 4.1 103/ul Normal 1.4-6.5 [facility] Comment on above: Performed By: #### C BC #### [facility] [address] [place] [address] Dr. Jorge L Carey Neutrophils/100 WBC (Bld) 68.0 % Normal 43.0-75.0 [facility] Comment on above: Performed By: #### C BC #### [facility] [address] [place] [address] Dr. Jorge L Carey Platelet mean volume (Bld) [Entitic vol] 12.0 fL Normal 9.5-13.5 [facility] Comment on above: Performed By: #### C BC #### [facility] [address] [place] [address] Dr. Jorge L Carey PLT 163 103/ul Normal 150-450 [facility] Comment on above: Performed By: #### C BC #### [facility] [address] [place] [address] Dr. Jorge L Carey RBC 5.15 106/ul Normal 4.70-6.10 [facility] Comment on above: Performed By: #### C BC #### [facility] [address] [place] [address] Dr. Jorge L Carey WBC 6.1 103/ul Normal 4.0-11.0 [facility] Comment on above: Performed By: #### C BC #### [facility] [address] [address] [address] Jorge L Carey GLYCOHEMOGLOBIN A1Con 2021 ADA RECOMMENDATION SEE BELOW Normal [facility] Comment on above: Result Comment: ADA RECOMMENDED LIMIT 4.0 - 6.0 ADA THERAPEUTIC TARGET < 7.0 ACTION SUGGESTED > 7.0 Performed By: #### B MP, LIPID, ALT, URIC #### [facility] [address] [address] [address] Jorge L Carey Glucose [Mass/Vol] 146 mg/dL Normal [facility] Comment on above: Performed By: #### B MP, LIPID, ALT, URIC #### [facility] [address] [address] [address] Jorge L Carey HbA1c (Bld) [Mass fraction] 6.7 % Critically high 4.5-6.2 [facility] Comment on above: Performed By: #### B MP, LIPID, ALT, URIC #### [facility] [address] [address] [address] Jorge L Carey LIPID PROFILEon 04-18-2022 CHOL-HDL RATIO NORM SEE BELOW Normal [facility] Comment on above: Result Comment: 3.3 - 4.4 LOW RISK 4.4 - 7.1 AVERAGE RISK 7.1 - 11.0 MODERATE RISK >11.0 HIGH RISK Performed By: #### B MP, LIPID, ALT, URIC #### [facility] [address] [address] [address] Jorge L Carey Cholesterol [Mass/Vol] 117 mg/dL Normal <=200 [facility] Comment on above: Performed By: #### B MP, LIPID, ALT, URIC #### [facility] [address] [address] [address] Jorge L Carey Cholesterol in HDL [Mass/Vol] 48 mg/dL Normal 40-60 [facility] Comment on above: Performed By: #### B MP, LIPID, ALT, URIC #### [facility] [address] [address] [address] Jorge L Carey Cholesterol in LDL [Mass/Vol] 50.6 mg/dL Normal [facility] Comment on above: Performed By: #### B MP, LIPID, ALT, URIC #### [facility] [address] [address] [address] Jorge L Carey Cholesterol.total/Ch olesterol in HDL [Mass ratio] 2.4 {ratio} Normal [facility] Comment on above: Performed By: #### B MP, LIPID, ALT, URIC #### [facility] [address] [address] [address] Jorge L Carey HDL NORMAL > or = 60 mg/dl - LO W CARDIOVASCULAR RISK <40 mg/dl - HIGH CARDIOVASCULAR RISK Normal [facility] Comment on above: Performed By: #### B MP, LIPID, ALT, URIC #### [facility] [address] [address] [address] Jorge L Carey LDL CALC NORMAL SEE BELOW Normal [facility] Comment on above: Result Comment: <100 mg/dl OPTIMAL 100 - 129 mg/dl NEAR OR ABOVE OPTIMAL 130 - 159 mg/dl BORDERLINE HIGH 160 - 189 mg/dl HIGH >190 mg/dl VERY HIGH Performed By: #### B MP, LIPID, ALT, URIC #### [facility] [address] [address] [address] Jorge L Carey Triglyceride [Mass/Vol] 92 mg/dL Normal <=150 [facility] Comment on above: Performed By: #### B MP, LIPID, ALT, URIC #### [facility] [address] [address] [address] Jorge L Carey VLDL CALC 18.4 mg/dL Normal [facility] Comment on above: Performed By: #### B MP, LIPID, ALT, URIC #### [facility] [address] [address] [address] Jorge L Carey MICROALBUMIN, RAND URon 11-0 mALB <1.3 Normal <=30.0 [facility] Comment on above: Performed By: #### M ALBR #### [facility] [address] [address] [address] Jorge L Carey PROF CHEM 8 (BAS METB)on 11- 02-2022 Anion gap [Moles/Vol] 9.5 mmol/L Normal [facility] Comment on above: Performed By: #### B MP, LIPID, ALT, URIC #### [facility] [address] [place] [address] Dr. Jorge L Carey Calcium [Mass/Vol] 8.6 mg/dL Normal 8.5-10.1 [facility] Comment on above: Performed By: #### B MP, LIPID, ALT, URIC #### [facility] [address] [place] [address] Dr. Jorge L Carey Chloride [Moles/Vol] 102 mmol/L Normal 98-107 [facility] Comment on above: Performed By: #### B MP, LIPID, ALT, URIC #### [facility] [address] [place] [address] Dr. Jorge L Carey CO2 [Moles/Vol] 30.8 mmol/L Normal 21.0-32.0 [facility] Comment on above: Performed By: #### B MP, LIPID, ALT, URIC #### [facility] [address] [place] [address] Dr. Jorge L Carey Creatinine [Mass/Vol] 0.95 mg/dL Normal 0.70-1.30 [facility] Comment on above: Performed By: #### B MP, LIPID, ALT, URIC #### [facility] [address] [place] [address] Dr. Jorge L Carey EGFR-AF BAHRAINI >60 Normal >=60 [facility] Comment on above: Performed By: #### B MP, LIPID, ALT, URIC #### [facility] [address] [place] [address] Dr. Jorge L Carey EGFR-NON AF BAHRAINI >60 Normal >=60 [facility] Comment on above: Performed By: #### B MP, LIPID, ALT, URIC #### [facility] [address] [place] [address] Dr. Jorge L Carey Glucose [Mass/Vol] 142 mg/dL Critically high 74-[address] [facility] Comment on above: Performed By: #### B MP, LIPID, ALT, URIC #### [facility] [address] [address] [address] Jorge L Carey Potassium [Moles/Vol] 4.3 mmol/L Normal 3.5-5.1 [facility] Comment on above: Performed By: #### B MP, LIPID, ALT, URIC #### [facility] [address] [address] [address] Jorge L Carey Sodium [Moles/Vol] 138 mmol/L Normal 136-145 [facility] Comment on above: Performed By: #### B MP, LIPID, ALT, URIC #### [facility] [address] [place] [address] Dr. Jorge L Carey Urea nitrogen [Mass/Vol] 14.0 mg/dL Normal 7.0-18.0 [facility] Comment on above: Performed By: #### B MP, LIPID, ALT, URIC #### [facility] [address] [place] [address] Dr. Jorge L Carey Urea nitrogen/Creatinine [Mass ratio] 14.7 mg/mg Normal [facility] Comment on above: Performed By: #### B MP, LIPID, ALT, URIC #### [facility] [address] [place] [address] Dr. Jorge L Carey SGPTon 04-18-2022 ALT [Catalytic activity/Vol] 27 U/L Normal 16-63 [facility] Comment on above: Performed By: #### B MP, LIPID, ALT, URIC #### [facility] [address] [place] [address] Dr. Jorge L Carey URIC ACID SERUMon 04-18-2022 Urate [Mass/Vol] 5.5 mg/dL Normal 3.5-7.2 [facility] Comment on above: Performed By: #### B MP, LIPID, ALT, URIC #### [facility] [address] [place] [address] Dr. Jorge L Carey GLYCOHEMOGLOBIN A1Con 2021 ADA RECOMMENDATION SEE BELOW Normal [facility] Comment on above: Result Comment: ADA RECOMMENDED LIMIT 4.0 - 6.0 ADA THERAPEUTIC TARGET < 7.0 ACTION SUGGESTED > 7.0 Performed By: #### B MP, LIPID, ALT, URIC #### [facility] [address] [place], [place] [address] Dr. Jorge L Carey Glucose [Mass/Vol] 160 mg/dL Normal [facility] Comment on above: Performed By: #### B MP, LIPID, ALT, URIC #### [facility] [address] [place], [place] [address] Dr. Jorge L Carey HbA1c (Bld) [Mass fraction] 7.2 % Critically high 4.5-6.2 [facility] Comment on above: Performed By: #### B MP, LIPID, ALT, URIC #### [facility] [address] [place], [place] [address] Dr. Jorge L Carey Ambulatory Visit Summaryon 0 10-06-2021 Ambulatory Visit Summary JOHANNELATISHA FELIEP Сергей :1955 Visit Date:10/06/2021 Ambulatory Visit Instructions Your Diagnosis BPH with urinary obstruction Elevated PSA Tests Performed Urnls Dip Stick Auto w/o Microscopy POC 79084 Your Care Team Attending Physician - Hola AMBRIZ MD Primary Care Physician - BOGDAN GREEN DO This Is Your Medications List finasteride (finasteride 5 mg Tab) tamsulosin (tamsulosin 0.4 mg Cap) Contact prescribing physician if questions or concerns allopurinol (allopurinol 100 mg Tab) benazepril (benazepril 5 mg oral tablet) dulaglutide (Trulicity Pen) metformin (metformin 1000 mg Tab) Procedures Performed Cystoscopy (12/20/2015), Colonoscopy, History of hernia repair, Perirectal abscess. Discharge Vitals Heart Rate (Peripheral) 78 Blood Pressure 145/98 Height 195 cm Height 195.0 cm Weight 109.5 kg Weight 109.5 kg BMI 28.8 What to do next Scheduled Follow-Up Appointments Saturday 8:00 AM EDT With: Hola AMBRIZ MD Where: [facility] Patient Educationon 10-07-19 Patient Education Urology Benign Prostatic Hyperplasia Benign prostatic hyperplasia (BPH) is an enlarged prostate gland that is caused by the normal aging process and not by cancer. The prostate is a walnut-sized gland that is involved in the production of semen. It is located in front of the rectum and below the bladder. The bladder stores urine and the urethra is the tube that carries the urine out of the body. The prostate may get bigger as a man gets older. An enlarged prostate can press on the urethra. This can make it harder to pass urine. The build-up of urine in the bladder can cause infection. Back pressure and infection may progress to bladder damage and kidney (renal) failure. What are the causes? This condition is part of a normal aging process. However, not all men develop problems from this condition. If the prostate enlarges away from the urethra, urine flow will not be blocked. If it enlarges toward the urethra and compresses it, there will be problems passing urine. What increases the risk? This condition is more likely to develop in men over the age of 50 years. What are the signs or symptoms? Symptoms of this condition include: ? Getting up often during the night to urinate. ? Needing to urinate frequently during the day. ? Difficulty starting urine flow. ? Decrease in size and strength of your urine stream. ? Leaking (dribbling) after urinating. ? Inability to pass urine. This needs immediate treatment. ? Inability to completely empty your bladder. ? Pain when you pass urine. This is more common if there is also an infection. ? Urinary tract infection (UTI). How is this diagnosed? This condition is diagnosed based on your medical history, a physical exam, and your symptoms. Tests will also be done, such as: ? A post-void bladder scan. This measures any amount of urine that may remain in your bladder after you finish urinating. ? A digital rectal exam. In a rectal exam, your health care provider checks your prostate by putting a lubricated, gloved finger into your rectum to feel the back of your prostate gland. This exam detects the size of your gland and any abnormal lumps or growths. ? An exam of your urine (urinalysis). ? A prostate specific antigen (PSA) screening. This is a blood test used to screen for prostate cancer. ? An ultrasound. This test uses sound waves to electronically produce a picture of your prostate gland. Your health care provider may refer you to a specialist in kidney and prostate diseases (urologist). How is this treated? Once symptoms begin, your health care provider will monitor your condition (active surveillance or watchful waiting). Treatment for this condition will depend on the severity of your condition. Treatment may include: ? Observation and yearly exams. This may be the only treatment needed if your condition and symptoms are mild. ? Medicines to relieve your symptoms, including: ? Medicines to shrink the prostate. ? Medicines to relax the muscle of the prostate. ? Surgery in severe cases. Surgery may include: ? Prostatectomy. In this procedure, the prostate tissue is removed completely through an open incision or with a laparoscope or robotics. ? Transurethral resection of the prostate (TURP). In this procedure, a tool is inserted through the opening at the tip of the penis (urethra). It is used to cut away tissue of the inner core of the prostate. The pieces are removed through the same opening of the penis. This removes the blockage. ? Transurethral incision (TUIP). In this procedure, small cuts are made in the prostate. This lessens the prostate's pressure on the urethra. ? Transurethral microwave thermotherapy (TUMT). This procedure uses microwaves to create heat. The heat destroys and removes a small amount of prostate tissue. ? Transurethral needle ablation (TUNA). This procedure uses radio frequencies to destroy and remove a small amount of prostate tissue. ? Interstitial laser coagulation (ILC). This procedure uses a laser to destroy and remove a small amount of prostate tissue. ? Transurethral electrovaporization (TUVP). This procedure uses electrodes to destroy and remove a small amount of prostate tissue. ? Prostatic urethral lift. This procedure inserts an implant to push the lobes of the prostate away from the urethra. Follow these instructions at home: ? Take xutm-kxn-pnmmppu and prescription medicines only as told by your health care provider. ? Monitor your symptoms for any changes. Contact your health care provider with any changes. ? Avoid drinking large amounts of liquid before going to bed or out in public. ? Avoid or reduce how much caffeine or alcohol you drink. ? Give yourself time when you urinate. ? Keep all follow-up visits as told by your health care provider. This is important. Contact a health care provider if: ? You have unexplained back pain. ? Your symptoms do not get better with treatment. ? You d (more content not included)... [facility] Office/Clinic Noteon 10-06-2021 Urology Office/Clinic Note Chief Complaint pt here for 1yr f/u with psa HPI Staff pt is here for 1yr f/u with PSA. Recent PSA done on 09/16/21 is at 0.84, previous PSA done 03/2020 was 0.97. previous dx: BPH w/urinary obstruction. Dysuria: _denies Incomplete bladder emptying: _denies Hematuria: _denies visibly Frequency: _denies Urgency: _denies Nocturia: _denies Stream: _steady Leaking: _denies Post void dripping: _denies Wearing pads/ Depends: _denies Urge incontinence: _denies Stress incontinence: _denies Incontinence without Sensory Awareness: _denies Abdominal pain: _denies Flank pain: _denies Sexual complaints: _ History of Present Illness I have reviewed and verified the staff HPI to be accurate for this encounter. Review of Systems PHQ Score Initial Depression Screen Score: 0 ROS - Provider Constitutional: denies weight loss, denies hot flashes. Eyes: denies eye problems. Gastrointestinal: denies nausea, denies vomiting. Cardiovascular: denies chest pain or angina. Integumentary: no dryness Musculoskeletal: denies musculoskeletal symptoms. ENMT: denies otolaryngeal symptoms. Respiratory: no shortness of breath. Heme/Lymph: denies easy bleeding tendency, denies easy bruising tendency. Psychiatric: no confusion, no anxiety. Genitourinary: denies dysuria, denies hematuria, denies discharge, denies urinary frequency, denies urinary hesitancy, denies nocturia, denies incontinence, denies genital sores, denies decreased libido, and denies erectile dysfunction. Physical Exam Vitals & Measurements HR: 78(Peripheral) BP: 145/98 HT: 195 cm HT: 195.0 cm WT: 109.5 kg WT: 109.5 kg BMI: 28.8 General Appearance: alert, no distress, well nourished, well developed male. Genitourinary: normal scrotum, normal testes, normal urethra, normal epididymis, normal vas deferens/spermatic cord. Flank Pain: none. Bladder: nonpalpable. Assessment/Plan 1. BPH with urinary obstruction (N40.1: Benign prostatic hyperplasia with lower urinary tract symptoms) Pt is on Flomax 0.4mg BID. Overall pt states he is doing well with his urination. Pt states he is no longer getting up throughout the night unless he drinks coffee at night. Pt feels like he is emptying his bladder, no blood, no leaking. If pt has any concerns he will contact our office. Pt understands and acknowledges. 2. Elevated PSA (R97.20: Elevated prostate specific antigen [PSA]) PSA done on 09/16/2021 0.84 (1.68) and Previous PSA was 0.97 (1.94) Finasteride effect. Pt is on Finasteride 5mg qd. Refill of Finasteride sent today to pt's pharmacy. Discussed with pt the results of his recent PSA and that his values have been trending down. JOHANNE will be done at next visit. Pt will return in a year with a PSA and johanne. Follow-up With When Contact Information JOSE MCMANUS, TIANA Perkins In 1 year 10/06/2022 EDT [facility] [address] [place] [address]- [phone] Additional Instructions: PSA Patient Education Benign Prostatic Hyperplasia I, Ciarra Mckeon, personally scribed for Dr. Ambriz on 10/06/2021 08:37:45. . Documentation recorded by the scribe, Ciarra Mckeon, accurately reflects the services(s) I performed and decisions made by me. Problem List/Past Medical History Ongoing BPH with urinary obstruction Diabetes Elevated PSA Gout Hematuria Nocturia Historical No qualifying data Procedure/Surgical History Cystoscopy (12/20/2015), Colonoscopy, History of hernia repair, Perirectal abscess. Medications allopurinol 100 mg Tab, Oral, BID benazepril 5 mg oral tablet, 5 mg= 1 tab(s), Oral, Daily finasteride 5 mg Tab, 5 mg= 1 tab(s), Oral, Daily, 3 refills metformin 1000 mg Tab, 1000 mg= 1 tab(s), Oral, BID tamsulosin 0.4 mg Cap, 0.4 mg= 1 cap(s), Oral, BID, 3 refills Trulicity Pen, SubCutaneous, qWeek Allergies No Known Medication Allergies Social History Alcohol - Low Risk, 10/03/2020 Tobacco Never (less than 100 in lifetime) Tobacco Use:., 10/06/2021 Family History Diabetes: Father. Heart disease: Father. Immunizations Vaccine Date Status Comments influenza virus vaccine, inactivated 03/30/2021 Recorded SARS-CoV-2 (COVID-19) mRNA BNT-162b2 vax 09/16/2020 Given Prophylaxis SARS-CoV-2 (COVID-19) mRNA BNT-162b2 vax 09/16/2020 Recorded SARS-CoV-2 (COVID-19) mRNA BNT-162b2 vax 08/26/2020 Given Prophylaxis Lab Results Test Name Test Result Date/Time PSA, External 0.84 ng/mL 09/16/2021 08:13 EDT PSA, External 0.97 ng/mL 04/01/2020 14:32 EDT PSA, External 1.01 ng/mL 03/30/2019 14:32 EDT Ambulatory Point of Care Results Bilirubin Urine Dipstick: Negative (10/06/21 08:08:00) Blood Urine Dipstick: Negative (10/06/21 08:08:00) Glucose Urine Dipstick: Negative (10/06/21 08:08:00) Ketones Urine Dipstick: Negative (10/06/21 08:08:00) Leukocytes Urine Dipstick: Negative (10/06/21 08:08:00) Nitrite Urine Dipstick: Negative (10/06/21 08:08:00) (more content not included)... [facility] Comment on above: Result Comment: Elec tronically Signed By: Hola AMBRIZ MD\.br\Date and Time Signed: 10/06/21 08:39 EDT\.br\Electronically Co-Signed By: Ciarra Mckeon MA\.br\Date and Time Co-Signed: 10/06/21 08:38 EDT Lab Report[facility] 09-19-2021 Lab Reports [id number] D:127 Normal [facility] GLYCOHEMOGLOBIN A1Con 2021 ADA RECOMMENDATION ADA THERAPEUTIC TARG ET 6.0 - 7.0 ACTION SUGGESTED > 7.0 Normal [facility] Comment on above: Performed By: #### B MP, LIPID, ALT, URIC #### [facility] [address] [place], [place] [address] Dr. Jorge L Carey Glucose [Mass/Vol] 177 mg/dL Normal [facility] Comment on above: Performed By: #### B MP, LIPID, ALT, URIC #### [facility] [address] [place], [place] [address] Dr. Jorge L Carey HbA1c (Bld) [Mass fraction] 7.8 % Critically high <=6.0 [facility] Comment on above: Performed By: #### B MP, LIPID, ALT, URIC #### [facility] [address] [place], [place] [address] Dr. Jorge L Carey [facility] 09-17-2020 Glucose [Mass/Vol] 151 mg/dL Normal [facility] Comment on above: Result Comment: PERF ORMED BY: [place] [address] PATHOLOGIST EMPLOYMENT SECURITY OFFICER SUSAN SEXTON M.D. Performed By: #### O UTREACH GLYCO #### [facility] [address] [place] [address] HbA1c (Bld) [Mass fraction] 6.9 % High 4.3-5.6 [facility] Comment on above: Result Comment: Incr eased risk for diabetes: 5.7 - 6.4 diabetes: >6.4 glycemic control for adults with diabetes: <7.0 Performed By: #### O UTREACH GLYCO #### [facility] [address] [place] [address] Vital Signs Date Time Vital Sign Value Performing Clinician Facility 05-01-2023 08:30-0500 Body height 190.5 cm Bogdan Tudou Other [facility] Other 05-01-2023 08:30-0500 Body mass index (BMI) [Ratio] 32.19 kg/m2 Bogdan Tudou Other [facility] Other 05-01-2023 08:30-0500 Body weight 116.85 kg Bogdan Tudou Other [facility] Other 05-01-2023 08:30-0500 Diastolic blood pressure 81 mm[Hg] Bogdan Ball Other [facility] Other 05-01-2023 08:30-0500 Respiratory rate 12 /min Bogdan Ball Other [facility] Other 05-01-2023 08:30-0500 Systolic blood pressure 135 mm[Hg] Bogdan Ball Other [facility] Other 12-26-2022 08:30-0400 Body height 190.5 cm Bogdan Ball Other [facility] Other 12-26-2022 08:30-0400 Body mass index (BMI) [Ratio] 31.54 kg/m2 Bogdan Ball Other [facility] Other 12-26-2022 08:30-0400 Body weight 114.49 kg Bogdan Ball Other [facility] Other 12-26-2022 08:30-0400 Diastolic blood pressure 85 mm[Hg] Bogdan Ball Other [facility] Other 12-26-2022 08:30-0400 Respiratory rate 12 /min Bogdan Ball Other [facility] Other 12-26-2022 08:30-0400 Systolic blood pressure 139 mm[Hg] Bogdan Ball Other [facility] Other 11-09-2022 10:58-0400 Blood Pressure Location Hola AMBRIZ [facility] 11-09-2022 10:58-0400 Diastolic blood pressure 80 mm[Hg] Hola AMBRIZ [facility] 11-09-2022 10:58-0400 Heart rate 78 /min Hola AMBRIZ [facility] 11-09-2022 10:58-0400 Respiratory rate 16 /min Hola AMBRIZ [facility] 11-09-2022 10:58-0400 Systolic blood pressure 130 mm[Hg] Hola AMBRIZ [facility] 10-05-2022 12:15-0400 Body height 190.5 cm Bogdan Ball Other [facility] [employer] Other 10-05-2022 12:15-0400 Body mass index (BMI) [Ratio] 31.17 kg/m2 Bogdan Ball Other [facility] [employer] Other 10-05-2022 12:15-0400 Body weight 113.13 kg Bogdan Ball Other [facility] Other 10-05-2022 12:15-0400 Diastolic blood pressure 95 mm[Hg] Bogdan Ball Other [facility] [employer] Other 10-05-2022 12:15-0400 Respiratory rate 12 /min Bogdan Ball Other [facility] Other 10-05-2022 12:15-0400 Systolic blood pressure 168 mm[Hg] Bogdan Ball Other [facility] Other 08-23-2022 08:30-0500 Body height 190.5 cm Bogdan Ball Other [facility] Other 08-23-2022 08:30-0500 Body mass index (BMI) [Ratio] 31.42 kg/m2 Bogdan Ball Other [facility] Other 08-23-2022 08:30-0500 Body weight 114.04 kg Bogdan Ball Other [facility] Other 08-23-2022 08:30-0500 Diastolic blood pressure 86 mm[Hg] Bogdan Ball Other [facility] Other 08-23-2022 08:30-0500 Respiratory rate 12 /min Bogdan Ball Other [facility] Other 08-23-2022 08:30-0500 Systolic blood pressure 132 mm[Hg] Bogdan Ball Other [facility] Other 10-06-2021 08:14-0400 Blood Pressure Location Hola AMBRIZ [facility] 10-06-2021 08:14-0400 Diastolic blood pressure 98 mm[Hg] Hola AMBRIZ [facility] 10-06-2021 08:14-0400 Heart rate 78 /min Hola AMBRIZ [facility] 10-06-2021 08:14-0400 Systolic blood pressure 145 mm[Hg] Hola AMBRIZ [facility] [employer] Encounters Encounter Date Encounter Type Care Provider Facility Start: 05-20-2023 End: 05-21-2023 ambulatory Dm Cyr MD Facility:[facility] Start: 05-10-2023 End: 05-10-2023 ambulatory Bogdan Ball Other [facility] Other Start: 05-10-2023 Office outpatient vi sit 15 minutes Bogdan Ball [facility] Start: 05-01-2023 End: 05-01-2023 ambulatory Bogdan Green Other [facility] Other Start: 05-01-2023 Patient encounter procedure Bogdan Green [facility] Start: 04-24-2023 End: 04-24-2023 ambulatory Bogdan Green Other [facility] Other Start: 04-24-2023 Telephone encounter Bogdan Green [facility] Start: 02-25-2023 End: 02-25-2023 ambulatory Bogdan Green Other [facility] Other Start: 02-25-2023 Telephone encounter Bogdan Green [facility] Start: 12-27-2022 End: 12-27-2022 ambulatory Bogdan Green Other [facility] Other Start: 12-27-2022 Telephone encounter Bogdan Green [facility] Start: 12-26-2022 End: 12-26-2022 ambulatory Bogdan Green Other [facility] Other Start: 12-26-2022 Office outpatient vi sit 25 minutes Bogdan Green [facility] Start: 11-19-2022 End: 11-19-2022 ambulatory Bogdan Green Other [facility] Other Start: 11-19-2022 Telephone encounter Bogdan Green [facility] Start: 11-09-2022 ambulatory Hola AMBRIZ Facili ty:[facility] Start: 11-09-2022 End: 11-09-2022 Patient encounter procedure Hola AMBRIZ [facility] [place] Start: 10-22-2022 End: 10-22-2022 ambulatory Bogdan Green Other [facility] Other Start: 10-22-2022 Telephone encounter Bogdan Peter [facility] Start: 10-18-2022 End: 10-18-2022 ambulatory Bogdan Peter Other [facility] Other Start: 10-18-2022 Telephone encounter Bogdan Peter [facility] Start: 10-05-2022 End: 10-05-2022 ambulatory Bogdan Green Other [facility] Other Start: 10-05-2022 Office outpatient vi sit 15 minutes Bogdan Ball [facility] Start: 09-27-2022 End: 09-27-2022 ambulatory Bogdan Peter Other [facility] Other Start: 09-27-2022 Telephone encounter Bogdan Peter [facility] Start: 09-25-2022 End: 09-25-2022 ambulatory Bogdan Green Other [facility] Other Start: 09-25-2022 Telephone encounter Bogdan Green [facility] Start: 09-21-2022 End: 09-21-2022 ambulatory Bogdan Green Other [facility] Other Start: 09-21-2022 Telephone encounter Bogdan Green [facility] Start: 08-23-2022 End: 08-23-2022 ambulatory Bogdan Green Other [facility] Other Start: 08-23-2022 Office outpatient vi sit 25 minutes Bogdan Green [facility] Start: 08-17-2022 End: 08-18-[address] BOGDAN GREEN Facility:[facility] Start: 08-14-2022 End: 08-14-2022 ambulatory Bogdan Green Other [facility] Other Start: 08-14-2022 Telephone encounter Bogdan Green [facility] Start: 07-01-2022 End: 07-01-[address] BOGDAN GREEN Facility:[facility] Start: 04-25-2022 Adult health examination Bogdan Green Other [facility] Other Start: 04-18-2022 End: 04-19-[address] BOGDAN GREEN Facility:[facility] Start: 01-20-2022 End: 01-21-2022 ambulatory NONE LISTED REQUEST Facility:[facility] Start: 10-06-2021 ambulatory Hola AMBRIZ Facility : [facility] Start: 10-06-2021 End: 10-07-2021 ambulatory Hola AMBRIZ Facility:[facility] Start: 10-06-2021 End: 10-06-2021 Patient encounter procedure Hola AMBRIZ [facility] Start: 09-16-2021 End: 09-17-[address] HOLA AMBRIZ . Facility:[facility] Start: 09-15-2021 End: 09-16-2021 ambulatory NONE LISTED REQUEST Facility:[facility] Start: 08-29-[address] BOGDAN GREEN Facili ty:[facility] Procedures Date Procedure Procedure Detail Performing Clinician Start: 09-16-[address] PISANO IN [facility] Comment on above: Performed By: #### B MP, LIPID, ALT, URIC #### [facility] [address] [place] [address] Dr. Jorge L Carey Start: 03-29-2017 General examination of patient Bogdan Green Other Start: 12-20-2015 Cystoscopy Hola FAITH Start: 12-15-2013 Hyperlipidemia screening Bogdan Green Other Start: 12-15-2013 Screening for malign ant neoplasm of prostate Bogdan Green Other Colonoscopy Hola AMBRIZ Depression screening Dwight Green Other History of hernia repair Maureen AMBRIZ Perirectal abscess (disorder) Hola AMBRIZ Screening for malign ant neoplasm of colon Bogdan Green Other Immunizations Immunization Date Immunization Notes Care Provider Cinthia bartlett 04-29-2023 zoster vaccine recombinant Bogdan Green Other [facility] Other 04-26-2023 influenza, high dose seasonal, preservative-free Bogdan Green Other [facility] Other 02-26-2023 zoster vaccine recombinant Bogdan Green Other [facility] Other 04-25-2022 pneumococcal 20-alber nt conjugate vaccine Hola AMBRIZ [facility] 04-16-2022 influenza virus vaccine, split virus (incl. purified surface antigen) Bogdan Green Other [facility] Other 04-16-2022 influenza virus vaccine, unspecified formulation Hola JOSE [facility] 03-23-2022 SARS-CoV-2 (COVID-19 ) [id number] Hola AMBRIZ [facility] 05-08-2021 SARS-CoV-2 (COVID-19 ) mRNA BNT-162b2 vax Holaconnor AMBRIZ [facility] 04-22-2021 influenza virus vaccine, split virus (incl. purified surface antigen) Bogdan Green Other [facility] Other 04-22-2021 influenza virus vaccine, unspecified formulation Hola JOSE [facility] 03-30-2021 influenza virus vaccine, unspecified formulation Hola AMBRIZ [facility] 09-16-2020 COVID-19, mRNA, LNP- S, PF, 30 mcg/0.3 mL dose; 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: [Pfizer-BioNTech COVID-19 Vaccine] Hoal AMBRIZ [facility] Comment on above: Reason for Medicatio n: Prophylaxis 08-26-2020 COVID-19, mRNA, LNP- S, PF, 30 mcg/0.3 mL dose; 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: [Pfizer-BioNTech COVID-19 Vaccine] Hoal AMBRIZ [facility] Comment on above: Reason for Medicatio n: Prophylaxis 04-16-2020 influenza virus vaccine, split virus (incl. purified surface antigen) Bogdan Green Other [facility] Other 04-16-2020 influenza virus vaccine, unspecified formulation Hola AMBRIZ [facility] pneumococcal Conjuga te, unspecified formulation; 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: [Need for prophylactic vaccination against Streptococcus pneumoniae (pneumococcus)] Bogdan Green Other [facility] Other Payers Date Payer Category Payer Medicare 2022 Unknown 2021 Medicare [id number] 2020 Unknown [id number] 1959 Medicare [id number] 1959 Self-pay [id number] 1959 Unknown [id number] 1959 Unknown [id number] 1956 Unknown [id number] 2.16.84 [id number] 1956 Unknown [id number] 2.16.84 [id number] 1956 Unknown [id number] 2.16.84 [id number] 1956 Unknown [id number] 2.16.84 [id number] 1956 Unknown [id number] 2.16.84 [id number] 1956 Unknown [id number] 2.16.8 [id number] 1956 Unknown [id number] 2.16.8 [id number] 1956 Unknown [id number] 2.16. [id number] [facility] [id number] Unknown [id number] 2.16.84 [id number] Unknown [id number] 2.16.84 [id number] Social History Date Type Detail Facility Start: 10-06-2021 End: 11-09-2022 Tobacco smoking status Never smoked tobacco (finding) [facility] Sex Assigned At Male [facility] Tobacco smoking status Never [facility] Functional Status Date Assessment Result Facility 11-09-2022 Functional Status N/A [facility] Clinical Notes 10-06-2021 to 05-10-2023 Note Date & Type Note Facility 05-10-2023 Evaluation note Encounter Date Diagnosis Assessment Notes Apr, COVID-19 (ICD-10 - U07.1) Instructed to use Robitussin or Mucinex for cough, saline or Flonase NS for congestion, Tylenol for pain and fever. Age and diabetes increases risk for more prolonged, serious infection. Self isolate at home. - Cannot work - avoid contact with others - avoid pets - wipe counters, door knobs if touched - if can't avoid leaving home, must wear mask to protect others - need to stay isolated for 10 days from onset of symptoms - to discontinue isolation must be 5 days AND must be without fever for 24 hours AND symptoms must be improving. Always wear a mask in public places for complete 10 days Apr, Type 2 diabetes mellitus with hyperglycemia (ICD-10 - E11.65) This patient is following a comprehensive diabetic treatment plan. They are checking their feet daily for calluses and nonhealing ulcers. They are being seen for yearly dilated eye examinations. Goals: SBP less than 130, LDL less than 100, FBS less than 140, A1C less than 7%. They are checking their BS daily, will which are reviewed at the office visit. Continue regular routine monitoring of A1C,] Microalbumin, Dilated eye exam and Foot exam [facility] Other 11-15-2023 Evaluation note* Encounter Date Diagnosis Assessment Notes Treatment Notes Treatment Clinical Notes Apr, Medicare annual wellness visit, initial (ICD-10 - Z00.00) Personalized health advice was given to the beneficiary including a written plan for screenings discussed and provided. Advanced care planning reviewed and/or information given as requested. Additional counseling was provided here today in regards to, [ ]. The above visit was performed by [ ] under direct supervision of [ ]. Document reviewed and amended by provider signed below. Apr, Type 2 diabetes mellitus with hyperglycemia, without long-term current use of insulin (ICD-10 - E11.65) This patient is following a comprehensive diabetic treatment plan. They are checking their feet daily for calluses and nonhealing ulcers. They are being seen for yearly dilated eye examinations. Goals: SBP less than 130, LDL less than 100, FBS less than 140, A1C less than 7%. They are checking their BS daily, will which are reviewed at the office visit. Continue regular routine monitoring of A1C,] Microalbumin, Dilated eye exam and Foot exam Apr, Primary hypertension (ICD-10 - I10) This patient is instructed to consume a healthy, low-fat, low-salt diet. They are also encouraged to continue exercise to achieve/maintain a normal BMI. Apr, Elevated cholesterol (ICD-10 - E78.00) Instructed on diet and exercise with continued statin therapy.Discussed the beneficial effects of lowering cholesterol in reducing the risk for cerebrovascular and cardiovascular disease. Apr, Spondylosis without myelopathy or radiculopathy, lumbar region (ICD-10 - M47.816) The patient is instructed to avoid bending, twisting or lifting. They are to use intermittent heat and ice as needed. They may schedule a massage or gentle manipulation. They may safely use Tylenol as needed. Completed PT and continues HEP. Traction seemed to help the most. Continues w/ daily pain w/o radicular symptoms Recommend referral to pain management Apr, Gastro-esophageal reflux disease with esophagitis, without bleeding (ICD-10 - K21.00) Diet instructions: Smaller portions, avoid eating and laying flat, avoid eating or drinking prior to bedtime. Weight loss. Apr, Screening PSA (prostate specific antigen) (ICD-10 - Z12.5) Yearly JOHANNE and PSA Taking Proscar, requires to double PSA Apr, Hx of gout (ICD-10 - Z87.39) DIet instructions reviewed. No acute flares Sep, Thrombocytopenia, unspecified (ICD-10 - D69.6) [facility] Other 11-15-2023 Evaluation note* Encounter Date Diagnosis Assessment Notes Treatment Notes Treatment Clinical Notes Apr, Medicare annual wellness visit, initial (ICD-10 - Z00.00) Personalized health advice was given to the beneficiary including a written plan for screenings discussed and provided. Advanced care planning reviewed and/or information given as requested. Additional counseling was provided here today in regards to, [ ]. The above visit was performed by [ ] under direct supervision of [ ]. Document reviewed and amended by provider signed below. Apr, Type 2 diabetes mellitus with hyperglycemia, without long-term current use of insulin (ICD-10 - E11.65) This patient is following a comprehensive diabetic treatment plan. They are checking their feet daily for calluses and nonhealing ulcers. They are being seen for yearly dilated eye examinations. Goals: SBP less than 130, LDL less than 100, FBS less than 140, A1C less than 7%. They are checking their BS daily, will which are reviewed at the office visit. Continue regular routine monitoring of A1C,] Microalbumin, Dilated eye exam and Foot exam Apr, Primary hypertension (ICD-10 - I10) This patient is instructed to consume a healthy, low-fat, low-salt diet. They are also encouraged to continue exercise to achieve/maintain a normal BMI. Apr, Spondylosis without myelopathy or radiculopathy, lumbar region (ICD-10 - M47.816) The patient is instructed to avoid bending, twisting or lifting. They are to use intermittent heat and ice as needed. They may schedule a massage or gentle manipulation. They may safely use Tylenol as needed. Completed PT and continues HEP. Traction seemed to help the most. Continues w/ daily pain w/o radicular symptoms Recommend referral to pain management Apr, Elevated cholesterol (ICD-10 - E78.00) Instructed on diet and exercise with continued statin therapy.Discussed the beneficial effects of lowering cholesterol in reducing the risk for cerebrovascular and cardiovascular disease. Apr, Gastro-esophageal reflux disease with esophagitis, without bleeding (ICD-10 - K21.00) Diet instructions: Smaller portions, avoid eating and laying flat, avoid eating or drinking prior to bedtime. Weight loss. Apr, Screening PSA (prostate specific antigen) (ICD-10 - Z12.5) Yearly JOHANNE and PSA Taking Proscar, requires to double PSA Apr, Hx of gout (ICD-10 - Z87.39) DIet instructions reviewed. No acute flares Sep, Thrombocytopenia, unspecified (ICD-10 - D69.6) [facility] Other 11-08-2023 Evaluation note* Encounter Date Diagnosis Assessment Notes Treatment Notes Treatment Clinical Notes Apr, Screening PSA (prostate specific antigen) (ICD-10 - Z12.5) Apr, Type 2 diabetes mellitus with hyperglycemia, without long-term current use of insulin (ICD-10 - E11.65) Apr, Elevated cholesterol (ICD-10 - E78.00) Apr, Primary hypertension (ICD-10 - I10) Sep, Thrombocytopenia, unspecified (ICD-10 - D69.6) Thrombocytopenia [facility] Other 07-12-2023 Evaluation note* Encounter Date Diagnosis Assessment Notes Treatment Notes Treatment Clinical Notes Dec, Type 2 diabetes mellitus with hyperglycemia (ICD-10 - E11.65) This patient is following a comprehensive diabetic treatment plan. They are checking their feet daily for calluses and nonhealing ulcers. They are being seen for yearly dilated eye examinations. Goals: SBP less than 130, LDL less than 100, FBS less than 140, AC and A1C less than 7%. They are checking their BS daily, will which are reviewed at the office visit. Continue regular routine monitoring of A1C,] Microalbumin, Dilated eye exam and Foot exam Increase Lantus to 22u for now then increase to 25u Decrease Glimepiride to 8mg, taken 30 minutes prior to bkfst Continue Metformin Check A1C Dec, Primary hypertension (ICD-10 - I10) This patient is instructed to consume a healthy, low-fat, low-salt diet. They are also encouraged to continue exercise to achieve/maintain a normal BMI. Didn't take medication this morning. Patient is instructed on home BP measurements: - rest for 5 minutes w/o talking- positioned w/ feet on floor and arm supported- average best 2/3 readings w/ goal < 135-85 Dec, Elevated cholesterol (ICD-10 - E78.00) Instructed on diet and exercise with continued statin therapy.Discussed the beneficial effects of lowering cholesterol in reducing the risk for cerebrovascular and cardiovascular disease. Dec, Lumbar spondylosis (ICD-10 - M47.816) The patient is instructed to avoid bending, twisting or lifting. They are to use intermittent heat and ice as needed. They may schedule a massage or gentle manipulation. They may safely use Tylenol as needed. Limiting daily activities - XR - Pain management - MRI if no improvement Likely lumbar canal stenosis Dec, Other obesity due to excess calories (ICD-10 - E66.09) This patient has been instructed on a low-fat, high-fiber diet. They are instructed to reduce calories, portion sizes and snacks. It is recommended that they exercise for 30 minutes, 3-5 times weekly. Dec, Body mass index [BMI] 31.0-31.9, adult (ICD-10 - Z68.31) Dec, prison (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 (ICD-10 - Z79.4) [facility] Other 05-26-2023 Hospital Discharge instructions Patient Education 11/09/2022 09:16:57 Prostate Cancer Screening Prostate Cancer Screening Prostate cancer screening is testing that is done to check for the presence of prostate cancer in men. The prostate gland is a walnut-sized gland that is located below the bladder and in front of therectum in males. The function of the prostate is to add fluid to semen during ejaculation. Prostatecancer is one of the most common types of cancer in men. Who should have prostate cancer screening? Screening recommendations vary based on age and other risk factors, as well as between the professional organizations who make the recommendations. In general, screening is recommended if: You are age 50 to 70 and have an average risk for prostate cancer. You should talk with your healthcare provider about your need for screening and how often screening should be done. Because most prostate cancers are slow growing and will not cause , screening in this age group is generally reserved for men who have a 10- to 15-year life expectancy. You are younger than age 50, and you have these risk factors: ?Having a father, brother, or uncle who has been diagnosed with prostate cancer. The risk is higherif your family member's cancer occurred at an early age or if you have multiple family members withprostate cancer at an early age. ?Being a male who is Black or is of [place] or sub-Saharan descent. In general, screening is not recommended if: You are younger than age 40. You are between the ages of 40 and 49 and you have no risk factors. You are 70 years of age or older. At this age, the risks that screening can cause are greater than the benefits that it may provide. If you are at high risk for prostate cancer, your health care provider may recommend that you have screenings more often or that you start screening at a younger age. How is screening for prostate cancer done? The recommended prostate cancer screening test is a blood test called the prostate-specific antigen(PSA) test. PSA is a protein that is made in the prostate. As you age, your prostate naturally produces more PSA. Abnormally high PSA levels may be caused by: Prostate cancer. An enlarged prostate that is not caused by cancer (benign prostatic hyperplasia, or BPH). This condition is very common in older men. A prostate gland infection (prostatitis) or urinary tract infection. Certain medicines such as male hormones (like testosterone) or other medicines that raise testosterone levels. A rectal exam may be done as part of prostate cancer screening to help provide information about the size of your prostate gland. When a rectal exam is performed, it should be done after the PSA level is drawn to avoid any effect on the results. Depending on the PSA results, you may need more tests, such as: A physical exam to check the size of your prostate gland, if not done as part of screening. Blood and imaging tests. A procedure to remove tissue samples from your prostate gland for testing (biopsy). This is the only way to know for certain if you have prostate cancer. What are the benefits of prostate cancer screening? Screening can help to identify cancer at an early stage, before symptoms start and when the cancer can be treated more easily. There is a small chance that screening may lower your risk of dying from prostate cancer. The chance is small because prostate cancer is a slow-growing cancer, and most men with prostate cancer from a different cause. What are the risks of prostate cancer screening? The main risk of prostate cancer screening is diagnosing and treating prostate cancer that would never have caused any symptoms or problems. This is called overdiagnosisand overtreatment. PSA screening cannot tell you if your PSA is high due to cancer or a different cause. A prostate biopsy is the only procedure to diagnose prostate cancer. Even the results of a biopsy may not tell you if your cancer needs to be treated. Slow-growing prostate cancer may not need any treatment other than monitoring, so diagnosing and treating it may cause unnecessary stress or other side effects. Questions to ask your health care provider When should I start prostate cancer screening? What is my risk for prostate cancer? How often do I need screening? What type of screening tests do I need? How do I get my test results? What do my results mean? Do I need treatment? Where to find more information [employer]: www.cancer.org [employer]: www.auanet.org Contact a health care provider if: You have difficulty urinating. You have pain when you urinate or ejaculate. You have blood in your urine or semen. You have pain in your back or in the area of your prostate. Summary Prostate cancer is a common type of cancer in men. The prostate gland is located below the bladder and in front of the rectum. This gland adds fluid to semen during ejaculation. Prostate cancer screening may identify cancer at an early stage, when the cancer can be treated more easily and is less likely to have spread to other areas of the body. The prostate-specific antigen (PSA) test is the recommended screening test for prostate cancer, butit has associated risks. Discuss the risks and benefits of prostate cancer screening with your health care provider. If you are age 70 or older, the risks that screening can cause are greater than the benefits that it may provide. This information is not intended to replace advice given to you by your health care provider. Make sure you discuss any questions you have with your health care provider. Document Revised: 11/27/2021 Document Reviewed: 11/27/2021 [employer] Patient Education 2022 [employer]. Follow Up Care 10/06/2021 08:40:21 With:JOSE MCMANUS, Hola Rushing, URL Address: [facility] [address], [place] [address]- When: Unknown [facility] 05-08-2023 Evaluation note* Encounter Date Diagnosis Assessment Notes Treatment Notes Treatment Clinical Notes October, Primary hypertension (ICD-10 - I10) [facility] Other 05-04-2023 Evaluation note* Encounter Date Diagnosis Assessment Notes Treatment Notes Treatment Clinical Notes October, Primary hypertension (ICD-10 - I10) [facility] Other 04-21-2023 Evaluation note* Encounter Date Diagnosis Assessment Notes Treatment Notes Treatment Clinical Notes Sep, Primary hypertension (ICD-10 - I10) This patient is instructed to consume a healthy, low-fat, low-salt diet. They are also encouraged to continue exercise to achieve/maintain a normal BMI. Increase Benazepril to 10mg qd. Monitor home BP and update office in week Sep, Elevated cholesterol (ICD-10 - E78.00) Diet and exercise with continued statin therapy. Sep, Type 2 diabetes mellitus with hyperglycemia (ICD-10 - E11.65) This patient is following a comprehensive diabetic treatment plan. They are checking their feet daily for calluses and nonhealing ulcers. They are being seen for yearly dilated eye examinations. Goals: SBP less than 130, LDL less than 100, FBS less than 140, AC and A1C less than 7%. They are checking their BS daily, will which are reviewed at the office visit. Metformin and Glimepiride appear to be controlling BS. [facility] Other 04-13-2023 Evaluation note* Encounter Date Diagnosis Assessment Notes Treatment Notes Treatment Clinical Notes Sep, Type 2 diabetes mellitus with hyperglycemia (ICD-10 - E11.65) Sep, prison (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 (ICD-10 - Z79.4) [facility] Other 04-11-2023 Evaluation note* Encounter Date Diagnosis Assessment Notes Treatment Notes Treatment Clinical Notes Sep, Type 2 diabetes mellitus with hyperglycemia, without long-term current use of insulin (ICD-10 - E11.65) [facility] Other 04-07-2023 Evaluation note* Encounter Date Diagnosis Assessment Notes Treatment Notes Treatment Clinical Notes Sep, Type 2 diabetes mellitus with hyperglycemia (ICD-10 - E11.65) [facility] Other 03-09-2023 Evaluation note* Encounter Date Diagnosis Assessment Notes Treatment Notes Treatment Clinical Notes Aug, Type 2 diabetes mellitus with hyperglycemia, without long-term current use of insulin (ICD-10 - E11.65) This patient is following a comprehensive diabetic treatment plan. They are checking their feet daily for calluses and nonhealing ulcers. They are being seen for yearly dilated eye examinations. Goals: SBP less than 130, LDL less than 100, FBS less than 140, AC and A1C less than 7%. They are checking their BS daily, will which are reviewed at the office visit. A1C < 7%, good control Aug, Primary hypertension (ICD-10 - I10) This patient is instructed to consume a healthy, low-fat, low-salt diet. They are also encouraged to continue exercise to achieve/maintain a normal BMI. Aug, Elevated cholesterol (ICD-10 - E78.00) Diet and exercise with continued statin therapy. Aug, Gastroesophageal reflux disease with esophagitis without hemorrhage (ICD-10 - K21.00) Diet instructions: Smaller portions, avoid eating and laying flat, avoid eating or drinking prior to bedtime. Weight loss. Continue PPI Aug, Hx of gout (ICD-10 - Z87.39) Occasional attacks, reviewed diet instructions, continue Allopurinol. Recheck uric acid at wellness Aug, Lumbar spondylosis (ICD-10 - M47.816) The patient is instructed to avoid bending, twisting or lifting. They are to use intermittent heat and ice as needed. They may schedule a massage or gentle manipulation. They may safely use Tylenol as needed. Stretching exercise handouts given to patient. Reviewed treatment options: PT, injections Reviewed red flag symptoms and nerve impingement [facility] Other 02-28-2023 Evaluation note* Encounter Date Diagnosis Assessment Notes Treatment Notes Treatment Clinical Notes Jul, Type 2 diabetes mellitus with hyperglycemia, without long-term current use of insulin (ICD-10 - E11.65) [facility] Other 04-22-2022 Hospital Discharge instructions Patient Education 10/06/2021 08:21:03 Benign Prostatic Hyperplasia Benign Prostatic Hyperplasia Benign prostatic hyperplasia (BPH) is an enlarged prostate gland that is caused by the normal agingprocess and not by cancer. The prostate is a walnut-sized gland that is involved in the production of semen. It is located in front of the rectum and below the bladder. The bladder stores urine and the urethra is the tube that carries the urine out of the body. The prostate may get bigger as a man gets older. An enlarged prostate can press on the urethra. This can make it harder to pass urine. The build-up of urine in the bladder can cause infection. Back pressure and infection may progress to bladder damage and kidney (renal) failure. What are the causes? This condition is part of a normal aging process. However, not all men develop problems from this condition. If the prostate enlarges away from the urethra, urine flow will not be blocked. If it enlarges toward the urethra and compresses it, there will be problems passing urine. What increases the risk? This condition is more likely to develop in men over the age of 50 years. What are the signs or symptoms? Symptoms of this condition include: Getting up often during the night to urinate. Needing to urinate frequently during the day. Difficulty starting urine flow. Decrease in size and strength of your urine stream. Leaking (dribbling) after urinating. Inability to pass urine. This needs immediate treatment. Inability to completely empty your bladder. Pain when you pass urine. This is more common if there is also an infection. Urinary tract infection (UTI). How is this diagnosed? This condition is diagnosed based on your medical history, a physical exam, and your symptoms. Tests will also be done, such as: A post-void bladder scan. This measures any amount of urine that may remain in your bladder after you finish urinating. A digital rectal exam. In a rectal exam, your health care provider checks your prostate by putting a lubricated, gloved finger into your rectum to feel the back of your prostate gland. This exam detects the size of your gland and any abnormal lumps or growths. An exam of your urine (urinalysis). A prostate specific antigen (PSA) screening. This is a blood test used to screen for prostate cancer. An ultrasound. This test uses sound waves to electronically produce a picture of your prostate gland. Your health care provider may refer you to a specialist in kidney and prostate diseases (urologist). How is this treated? Once symptoms begin, your health care provider will monitor your condition (active surveillance or watchful waiting). Treatment for this condition will depend on the severity of your condition. Treatment may include: Observation and yearly exams. This may be the only treatment needed if your condition and symptoms are mild. Medicines to relieve your symptoms, including: ?Medicines to shrink the prostate. ?Medicines to relax the muscle of the prostate. Surgery in severe cases. Surgery may include: ?Prostatectomy. In this procedure, the prostate tissue is removed completely through an open incision or with a laparoscope or robotics. ?Transurethral resection of the prostate (TURP). In this procedure, a tool is inserted through the opening at the tip of the penis (urethra). It is used to cut away tissue of the inner core of the prostate. The pieces are removed through the same opening of the penis. This removes the blockage. ?Transurethral incision (TUIP). In this procedure, small cuts are made in the prostate. This lessens the prostate's pressure on the urethra. ?Transurethral microwave thermotherapy (TUMT). This procedure uses microwaves to create heat. The heat destroys and removes a small amount of prostate tissue. ?Transurethral needle ablation (TUNA). This procedure uses radio frequencies to destroy and remove a small amount of prostate tissue. ?Interstitial laser coagulation (ILC). This procedure uses a laser to destroy and remove a small amount of prostate tissue. ?Transurethral electrovaporization (TUVP). This procedure uses electrodes to destroy and remove a small amount of prostate tissue. ?Prostatic urethral lift. This procedure inserts an implant to push the lobes of the prostate away from the urethra. Follow these instructions at home: Take toag-dri-fgtjtik and prescription medicines only as told by your health care provider. Monitor your symptoms for any changes. Contact your health care provider with any changes. Avoid drinking large amounts of liquid before going to bed or out in public. Avoid or reduce how much caffeine or alcohol you drink. Give yourself time when you urinate. Keep all follow-up visits as told by your health care provider. This is important. Contact a health care provider if: You have unexplained back pain. Your symptoms do not get better with treatment. You develop side effects from the medicine you are taking. Your urine becomes very dark or has a bad smell. Your lower abdomen becomes distended and you have trouble passing your urine. Get help right away if: You have a fever or chills. You suddenly cannot urinate. You feel lightheaded, or very dizzy, or you faint. There are large amounts of blood or clots in the urine. Your urinary problems become hard to manage. You develop moderate to severe low back or flank pain. The flank is the side of your body between the ribs and the hip. These symptoms may represent a serious problem that is an emergency. Do not wait to see if the symptoms will go away. Get medical help right away. Call your local emergency services (911 in the [place] Do not drive yourself to the hospital. Summary Benign prostatic hyperplasia (BPH) is an enlarged prostate that is caused by the normal aging process and not by cancer. An enlarged prostate can press on the urethra. This can make it hard to pass urine. This condition is part of a normal aging process and is more likely to develop in men over the age of 50 years. Get help right away if you suddenly cannot urinate. This information is not intended to replace advice given to you by your health care provider. Make sure you discuss any questions you have with your health care provider. Document Released: 06/03/2006 Document Revised: 04/28/2019 Document Reviewed: 07/08/2017 [employer] Patient Education 2020 [employer]. Follow Up Care 10/03/2020 15:00:49 With:Hola AMBRIZ MD, URL Address: [facility] [address], [place] [address]- [phone] When:10/06/2022 [facility] evaluation + Plan note Future Appointments Appointment Date:10/12/2022 08:00:00 AM Scheduled Provider:Hola AMBRIZ MD Location:[facility] Appointment Type:URO Office Visit Diagnostic Tests Pending * PSA Total 10/06/21 [facility] evaluation + Plan note Future Appointments Appointment Date:11/18/2023 08:45:00 AM Scheduled Provider:Hola AMBRIZ MD Location:[facility] Appointment Type:URO Office Visit Diagnostic Tests Pending * PSA Free & Total 11/09/22 [facility] evaluation note[employer] Other Evaluation noteNo InformationNo[employer], [employer] Other [employer] general Narrative - Reported* Type Description Date Medical History Controlled type 2 di abetes mellitus with hyperglycemia, without long-term current use of insulin Medical History Primary hypertension Medical History Elevated cholesterol Medical History Gastroesophageal ref lux disease with esophagitis without hemorrhage Medical History Adenomatous polyp of descending colon Medical History Lumbar spondylosis Surgical History COLONOSCOPY 2002,2013,2019 Surgical History CYSTOSCOPY 2016 Hospitalization History SEE SURGICAL [employer] Other History general Narrative - [employer]orted[employer] Other history general Narrative - Reported* Type Description Date Medical History Controlled type 2 di abetes mellitus with hyperglycemia, without long-term current use of insulin Medical History Primary hypertension Medical History Elevated cholesterol Medical History Gastroesophageal ref lux disease with esophagitis without hemorrhage Medical History Adenomatous polyp of descending colon Medical History Lumbar spondylosis Surgical History COLONOSCOPY, (repeat 2024) 2002 ,2013,2019 Surgical History CYSTOSCOPY 2016 Hospitalization History SEE SURGICAL HX [employer] Other Hospital course Narrative No data available for this section [facility] progress note No data available for this section [facility] Summary Purpose Family History No Family History Records FoundNo Family History Records FoundNo Family History Records FoundNo Family History Records Found Advance Directives No Advanced Directives Records FoundNo Advanced Directives Records FoundNo Advanced Directives Records FoundNo Advanced Directives Records Found Reason for Referral Reason *FU 05/16 Mr. Christianson er is being referred for chronic low back pain. Diagnosis 1 Medicare annual well ness visit, initial (Z00.00) Referral Organization [facility] jono Referring Provider First Name Bogdan Referring Provider Last Name Peter Referring Provider Specialty Internal Me dicine Referred Organization [facility] Referred Provider Swapnil French Referred Address [address], [place],[address] Referred Provider Specialty Pain Medicin e Referral Priority Routine General Notes Mr. Correa has chron ic low back pain w/o radicular symptoms. He denies radiating pain, N/T or weakness. He denies bowel or bladder dysfunction. He has completed PT w/o much benefit. He does state that traction was temporarily beneficial. His pain does limit certain activities but he continues to walk the golf course and mow his lawn w/o difficulty. He is being referred for evaluation and injections. Cathie Whitten 05/02/2023 12:14:08 PM >received today, attachments made, notes locked, referral faxed Clinical Notes Include XR lumbar sp ine f: [id number] Additional Source Comments (unrecognized sect ion and content) No Status Records FoundNo Status Records FoundNo Status Records FoundNo Status Records Found INFORMATION SOURCE (unrecogn ized section and content) DATE CREATED AUTHOR 07/30/2021 [facility] DATE CREATED AUTHOR AUTHOR'S ORGANIZ ATION 08/22/2022 [facility] DATE CREATED AUTHOR AUTHOR'S ORGANIZ ATION 09/07/2022 [facility] DATE CREATED AUTHOR AUTHOR'S ORGANIZ ATION 05/31/2023 [facility] REASON FOR VISIT (unrecogniz ed section and content) [phone] PositiveW ellnesslabsLab ResultsBP readingsrefillelevated BPMedication4 MONTH FOLLOW UP Patient Care team informatio n (unrecognized section and content) Personnel Name: BOGDAN GREEN DO Address: Address: [address] FOR RECORDS PERTAINING TO PATIENTS WHO ARE OR HAVE BEEN ENROLLED IN A CHEMICAL DEPENDENCY/SUBSTANCEABUSE PROGRAM, SOME INFORMATION MAY BE OMITTED. This clinical summary was aggregated from multiple sources. Caution should be exercised in using it in the provision of clinical care. This summary normalizes information from multiple sources, and as a consequence, information in this document may materially change the coding, format and clinical context of patient data. In addition, data may be omitted in some cases. CLINICAL DECISIONS SHOULD BE BASED ON THE PRIMARY CLINICAL RECORDS. [facility] [employer] [facility]. provides no warranty or guarantee of the accuracy or completeness of information in this document.
[2023-06-24 08:42] VITALS: BP 147/94; PULSE 94; RESP 16; TEMP 36.3; O2SAT 95
[2023-06-24 08:47] LABS: Glucometer 225 mg/dL (74-106)
[2023-06-24] MEDS: LIDOCAINE HCL 2% PF 100 MG/5 ML VIAL INJ (09:14)
[2023-06-24] MEDS: BUPIVACAINE HCL 0.5% PF 50 MG/10 ML VIAL INJ (09:14)
[2023-06-24 09:15] VITALS: BP 161/83; BP 172/81; PULSE 79; PULSE 82; RESP 18; O2SAT 97; O2SAT 98
--- NOTE | 2023-06-24 09:17 | W.PM.PROCNOT ---
Date of procedure: 06/24/23 Pre-op diagnosis: Lumbar spondylosis Post-op diagnosis: same as pre-op Procedure: Procedure: Bilateral L4-5, L5-S1 medial branch block Medications: Bupivacaine 0.25% 6cc The patient was seen and examined in the preoperative holding area.? An informed consent was obtained and placed on the chart.? The patient was brought to the medical procedure unit and placed in the prone position.? A timeout was completed verifying correct patient, procedure site, positioning, plan, and special equipment.? Using aseptic technique, the needle was placed at left L4. Under direct fluoroscopic visualization a Quincke-tipped spinal needle was advanced to the junction of the superior articulating process with the transverse process at the designated medial branch segment.? Preceded by negative aspiration, the above-mentioned injectate was placed in 1 mL aliquots.? The procedure was repeated at left L5, S1.? The needle was removed and insertion site was covered. The same procedure, at the same levels, was completed on the right side. The patient was taken to the postprocedural recovery area and monitored for an appropriate length of time before found suitable for discharge in the company of a responsible adult. Anesthesia: Local Surgeon: Dm Cyr Pathology: none sent Condition: stable Disposition: no change
== END 2023-06-24 09:21 | disposition home or self-care (01) ==
PROVIDERS: PCP Internal Medicine; Visit Provider Anesthesiology
DX: M47.816 Spondylosis without myelopathy or radiculopathy, lumbar region (principal); E11.9 Type 2 diabetes mellitus without complications
CPT/HCPCS: 36415; 64493; 64494; 82948; J0665

== ENCOUNTER 2023-07-04 10:10 | Outpatient (OUT) | payer MEDICARE, BC, SELFPAY ==
--- OUTSIDE RECORDS SUMMARY | 2023-07-04 10:15 | XMS_ITS | CCD ---
Author Name Unknown Address [address] [place] [address] Organization [facility] Care Team Providers Care Director Biomedical Engineering Name Role Phone BOGDAN GREEN Primary Care Physician DR BOGDAN GREEN Primary Care Unavailable FRANCISCA [...] Unavailable AMBRIZ ., DR VAUGHN Admitting Unavailable AMRBIZ ., DR VAUGHN Attending Unavailable BALL, DR [...] Medication Allergies] Propensity to adverse reactions (disorder) [facility] Repository (2 sources) patient allergy list reviewed by nurse or physicia Propensity to adverse reactions 6 Comment:Done echoBase Other Medications Current Medications Medication Drug Class(es) [...] day(s), # 90 tab(s), Refills(s) 3, Pharmacy: [facility]/pharmacy #[id number], 195, cm, 11/09/22 11:00:00 EDT, Height/Length Dosing, 111, kg, 11/09/22 11:00:00 EDT, Weight Dosing Start Date: 11/09/22 Stop Date: 11/04/23 Status: Ordered Start: 10-06-2021 take 1 tablet by osbaldo th once daily finasteride 5 mg Tab 5 mg = 1 tab(s), Oral, Daily, # 90 tab(s), Refills(s) 3, Pharmacy: [facility]/pharmacy #[id number], 195, cm, 10/06/21 8:16:00 EDT, Height/Length [...] Status: Ordered take 2 tablets by mo [facility] every twenty-four hours Glimepiride 4 MG 2 [...] ONCE A DAY for 50 Active [place] 10/30 (12 sources) Start: 09-27-2022 Start: 09-27-2022 Pen [place] Use to inject insulin qd SC daily for 30 days Sep, Active tamsulosin hydrochloride 0.4 mg oral capsule (9 sources) alpha-Adrenergic Andrew Start: 10-06-2021 End: 10-27-2023 take 1 capsule by mouth twice daily tamsulosin 0.4 mg Cap 0.4 mg = 1 cap(s), Oral, BID, X 30 day(s), # 60 cap(s), Refills(s) 11, Pharmacy: [facility]/pharmacy #[id number], 195, cm, 10/06/21 8:16:00 EDT, Height/Length [...] acid 4700 mg / polyethylene glycol 3350 [id number] mg / potassium chloride 1015 mg / [...] 05-09-2015 Chronic Other aftercare (1 source) Other shelter (current) drug therapy; 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: [OTH CLIENT MANAGER CURRENT DRUG THERAPY] Onset: 07-03-2022 Episodic Other aftercare (1 source) [employer]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; 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: [DETENTION USE ORAL HYPOGLYCEMIC DX] Onset: 07-03-2022 Episodic Other aftercare (12 sources) Long-term current use of insulin; 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 Jorge L Carey Glucose [Mass/Vol] 148 mg/dL Normal [facility] Comment on above: Performed By: #### B MP, LIPID, ALT, URIC #### [facility] [address] [address] [address] Jorge L Carey HbA1c (Bld) [Mass fraction] 6.8 % Critically high 4.5-6.2 [facility] Comment on above: Performed By: #### B MP, LIPID, ALT, URIC #### [facility] [address] [address] [address] Jorge L Carey CARDIAC DANAY ADMITon 023 CK [Catalytic activity/Vol] 59 U/L Normal 39-308 [facility] Comment on above: Performed By: #### C MP, CMADM #### [facility] [address] [address] [address] Jorge L Carey CK.MB [Mass/Vol] 0.99 ng/mL Normal <=3.60 [facility] Comment on above: Performed By: #### C MP, CMADM #### [facility] [address] [address] [address] Jorge L Carey HSTROP 10.0 pg/mL Normal 4.0-76.1 [facility] Comment on above: Result Comment: CUT- OFF POINTS HAVE BEEN ESTABLISHED BASED ON THE FOURTH UNIVERSAL DEFINITIONS OF MYOCARDIAL INFARCTION. THE UPPER REFERENCE LIMIT (URL) OF TROPONIN, DEFINED THE 99TH PERCENTILE OF cTnI DISTRIBUTION IN A REFERENCE POPULATION, HAS BEEN CONFIRMED THE DECISION THRESHOLD FOR DE DIAGNOSIS. Performed By: #### C MP, CMADM #### [facility] [address] [address] [address] Jorge L Carey GARLAND 52 ng/mL Normal 16-96 [facility] Comment on above: Performed By: #### C MP, CMADM #### [facility] [address] [place] [address] Dr. Jorge L Carey CBC AUTO DIFFon 07-01-2022 BASO # 0.0 103/ul Normal 0.0-0.1 [facility] Comment on above: Performed By: #### B MP, LIPID, ALT, URIC #### [facility] [address] [place] [address] Dr. Jorge L Carey Basophils/100 WBC (Bld) 0.3 % Normal 0.2-2.0 [facility] Comment on above: Performed By: #### B MP, LIPID, ALT, URIC #### [facility] [address] [place] [address] Dr. Jorge L Carey EO # 0.1 103/ul Normal 0.0-0.7 [facility] Comment on above: Performed By: #### B MP, LIPID, ALT, URIC #### [facility] [address] [place] [address] Dr. Jorge L Carey Eosinophils/100 WBC (Bld) 0.9 % Normal 0.9-7.0 [facility] Comment on above: Performed By: #### B MP, LIPID, ALT, URIC #### [facility] [address] [place] [address] Dr. Jorge L Carey Erythrocyte distribution width (RBC) [Ratio] 11.7 % Normal 11.0-15.0 [facility] Comment on above: Performed By: #### B MP, LIPID, ALT, URIC #### [facility] [address] [place] [address] Dr. Jorge L Carey Hematocrit (Bld) [Volume fraction] 41.1 % Critically low 42.0-54.0 [facility] Comment on above: Performed By: #### B MP, LIPID, ALT, URIC #### [facility] [address] [place] [address] Dr. Jorge L Carey Hemoglobin (Bld) [Mass/Vol] 14.5 g/dL Normal 14.0-18.0 [facility] Comment on above: Performed By: #### B MP, LIPID, ALT, URIC #### [facility] [address] [place] [address] Dr. Jorge L Carey IG # 0.02 10e3/ul Normal 0.00-0.03 [facility] Comment on above: Performed By: #### B MP, LIPID, ALT, URIC #### [facility] [address] [place] [address] Dr. Jorge L Carey IG % 0.3 % Normal 0.0-0.5 [facility] Comment on above: Performed By: #### B MP, LIPID, ALT, URIC #### [facility] [address] [place] [address] Dr. Jorge L Carey LYMPH # 1.1 103/ul Critically low 1.2-3.8 [facility] Comment on above: Performed By: #### B MP, LIPID, ALT, URIC #### [facility] [address] [place] [address] Dr. Jorge L Carey Lymphocytes/100 WBC (Bld) 16.6 % Critically low 20.5-60.0 [facility] Comment on above: Performed By: #### B MP, LIPID, ALT, URIC #### [facility] [address] [place] [address] Dr. Jorge L Carey MANUAL DIFF REQ NO Normal [facility] Comment on above: Performed By: #### B MP, LIPID, ALT, URIC #### [facility] [address] [place] [address] Dr. Jorge L Carey MCH (RBC) [Entitic mass] 30.1 pg Normal 25.9-34.0 [facility] Comment on above: Performed By: #### B MP, LIPID, ALT, URIC #### [facility] [address] [place] [address] Dr. Jorge L Carey MCHC (RBC) [Mass/Vol] 35.3 g/dL Critically high 29.9-35.2 [facility] Comment on above: Performed By: #### B MP, LIPID, ALT, URIC #### [facility] [address] [place] [address] Dr. Jorge L Carey MCV (RBC) [Entitic vol] 85.4 fL Normal 80.0-94.0 [facility] Comment on above: Performed By: #### B MP, LIPID, ALT, URIC #### [facility] [address] [place] [address] Dr. Jorge L Carey MONO # 0.4 103/ul Normal 0.3-0.8 [facility] Comment on above: Performed By: #### B MP, LIPID, ALT, URIC #### [facility] [address] [place] [address] Dr. Jorge L Carey Monocytes/100 WBC (Bld) 5.1 % Normal 1.7-12.0 [facility] Comment on above: Performed By: #### B MP, LIPID, ALT, URIC #### [facility] [address] [place] [address] Dr. Jorge L Carey NEUT # 5.3 103/ul Normal 1.4-6.5 [facility] Comment on above: Performed By: #### B MP, LIPID, ALT, URIC #### [facility] [address] [place] [address] Dr. Jorge L Carey Neutrophils/100 WBC (Bld) 76.8 % Critically high 43.0-75.0 [facility] Comment on above: Performed By: #### B MP, LIPID, ALT, URIC #### [facility] [address] [place] [address] Dr. Jorge L Carey Platelet mean volume (Bld) [Entitic vol] 12.1 fL Normal 9.5-13.5 [facility] Comment on above: Performed By: #### B MP, LIPID, ALT, URIC #### [facility] [address] [place] [address] Dr. Jorge L Carey PLT 147 103/ul Critically low 150-450 [facility] Comment on above: Performed By: #### B MP, LIPID, ALT, URIC #### [facility] [address] [place] [address] Dr. Jorge L Carey RBC 4.81 106/ul Normal 4.70-6.10 [facility] Comment on above: Performed By: #### B MP, LIPID, ALT, URIC #### [facility] [address] [place], [place] [address] Dr. Jorge L Carey WBC 6.9 103/ul Normal 4.0-11.0 [facility] Comment on above: Performed By: #### B MP, LIPID, ALT, URIC #### [facility] [address] [place], [place] [address] [address] HEAD WO [...] MALENA LÓPEZ Date: 2022-07-01 20:24 Normal [facility] Covid-19 PCR ([facility]on 06-17 SARS-CoV-2 (COVID-19) RNA EVDIN+probe Ql (Unsp spec) Not detected Normal NOT DETECTED [facility] Comment on above: Result Comment: When [...] for this test is supported by the [place] of [employer] and Human Service's declaration that [...] used). Performed By: #### C VDTBH #### [facility] [address] [place] [address] Dr. Jorge L Carey D-DIMERon 07-01-2022 D-DIMER 0.21 mg/L FEU Normal <=0.59 [facility] Comment on above: Performed By: #### B MP, LIPID, ALT, URIC #### [facility] [address] [place] [address] Dr. Jorge L Carey D-DIMER COMMENTS SEE BELOW Normal [facility] Comment on above: Result Comment: Incr eases [...] #### B MP, LIPID, ALT, URIC #### [facility] [address] [place] [address] Dr. Jorge L Carey ER URINE PROFILEon 3 Bilirubin Ql (U) Negative Normal NEGATIVE [facility] Comment on above: Performed By: #### B MP, LIPID, ALT, URIC #### [facility] [address] [place] [address] Dr. Jorge L Carey Clarity (U) CLEAR Normal CLEAR [facility] Comment on above: Performed By: #### B MP, LIPID, ALT, URIC #### [facility] [address] [place] [address] Dr. Jorge L Carey Color (U) LT. YELLOW Normal YELLOW [facility] Comment on above: Performed By: #### B MP, LIPID, ALT, URIC #### [facility] [address] [place] [address] Dr. Jorge L HERNANDEZ A micrscopic examination will be performed if indicated. Normal [facility] Comment on above: Performed By: #### B MP, LIPID, ALT, URIC #### [facility] [address] [address] [address] Jorge L Carey Glucose Ql (U) Negative Normal NEGATIVE [facility] Comment on above: Performed By: #### B MP, LIPID, ALT, URIC #### [facility] [address] [place] [address] Dr. Jorge L Carey Hemoglobin Ql (U) Negative Normal NEGATIVE [facility] Comment on above: Performed By: #### B MP, LIPID, ALT, URIC #### [facility] [address] [place] [address] Dr. Jorge L Carey Ketones Ql (U) Negative Normal NEGATIVE [facility] Comment on above: Performed By: #### B MP, LIPID, ALT, URIC #### [facility] [address] [place] [address] Dr. Jorge L Carey LEUKOCYTES Negative Normal NEGATIVE [facility] Comment on above: Performed By: #### B MP, LIPID, ALT, URIC #### [facility] [address] [place] [address] Dr. Jorge L Carey Nitrite Ql (U) Negative Normal NEGATIVE [facility] Comment on above: Performed By: #### B MP, LIPID, ALT, URIC #### [facility] [address] [place] [address] Dr. Jorge L Carey pH (U) 6.0 [pH] Normal 5-9 [facility] Comment on above: Performed By: #### B MP, LIPID, ALT, URIC #### [facility] [address] [place] [address] Dr. Jorge L Carey SPEC GRAVITY 1.020 Normal 1.005-<=1.025 [facility] Comment on above: Performed By: #### B MP, LIPID, ALT, URIC #### [facility] [address] [place] [address] Dr. Jorge L Carey UA PROTEIN Negative Normal NEGATIVE/ TRACE [facility] Comment on above: Performed By: #### B MP, LIPID, ALT, URIC #### [facility] [address] [place] [address] Dr. Jorge L Carey UR MICRO IND NOT INDICATED Normal [facility] Comment on above: Performed By: #### B MP, LIPID, ALT, URIC #### [facility] [address] [place] [address] Dr. Jorge L Carey Urobilinogen Qn (U) 1.0 {Ila'U}/dL Normal 0.2 - 1. 0 [facility] Comment on above: Performed By: #### B MP, LIPID, ALT, URIC #### [facility] [address] [place] [address] Dr. Jorge L Carey INFLUENZA A AND B AGon 07-01 [facility] SEE BELOW Normal [facility] Comment on above: Result Comment: Nega tive for Flu A protein angiten. Infection due to Flu A cannot be ruled out. Flu A angiten in the sample may be below the detection limit of the test. Performed By: #### I NFLUAB #### [facility] [address] [place] [address] Dr. Jorge L Carey [facility] SEE BELOW Normal [facility] Comment on above: Result Comment: Nega tive for Flu B protein antigen. Infection due to Flu B cannot be ruled out. Flu B antigen in the sample may be below the detection limit of the test. Performed By: #### I NFLUAB #### [facility] [address] [place] [address] Dr. Jorge L Carey INFLUENZA A AG Negative Normal NEGATIVE SEE COMMENT [facility] Comment on above: Performed By: #### I NFLUAB #### [facility] [address] [place] [address] Dr. Jorge L Carey INFLUENZA B AG Negative Normal NEGATIVE SEE COMMENT [facility] Comment on above: Performed By: #### I NFLUAB #### [facility] [address] [address] [address] Jorge L Carey POINT OF CARE GLUCOSEon 06-17 Glucose [Mass/Vol] 130 mg/dL Critically high 74-106 [facility] Comment on above: Performed By: #### B MP, LIPID, ALT, URIC #### [facility] [address] [address] [address] Jorge L Carey PROF 14(COMP METB)on 023 Albumin [Mass/Vol] 3.7 g/dL Normal 3.4-5.0 [facility] Comment on above: Performed By: #### C IGGY, CMADM #### [facility] [address] [place] [address] Dr. Jorge L Carey Albumin/Globulin [Mass ratio] 1.2 {ratio} Normal [facility] Comment on above: Performed By: #### C IGGY, CMADM #### [facility] [address] [place] [address] Dr. Jorge L Carey ALP [Catalytic activity/Vol] 49 U/L Normal 46-116 [facility] Comment on above: Performed By: #### C IGGY, CMADM #### [facility] [address] [place] [address] Dr. Jorge L Carey ALT [Catalytic activity/Vol] 30 U/L Normal 16-63 [facility] Comment on above: Performed By: #### C IGGY, CMADM #### [facility] [address] [address] [address] Jorge L Carey Anion gap [Moles/Vol] 12.7 mmol/L Normal [facility] Comment on above: Performed By: #### C IGGY, CMADM #### [facility] [address] [place] [address] Dr. Jorge L Carey AST [Catalytic activity/Vol] 21 U/L Normal 15-37 [facility] Comment on above: Performed By: #### C IGGY, CMADM #### [facility] [address] [address] [address] Jorge L Carey Bilirubin [Mass/Vol] 0.5 mg/dL Normal 0.2-1.0 [facility] Comment on above: Performed By: #### C IGGY, CMADM #### [facility] [address] [place] [address] Dr. Jorge L Carey Calcium [Mass/Vol] 8.9 mg/dL Normal 8.5-10.1 [facility] Comment on above: Performed By: #### C IGGY, CMADM #### [facility] [address] [place] [address] Dr. Jorge L Carey Chloride [Moles/Vol] 100 mmol/L Normal 98-107 [facility] Comment on above: Performed By: #### C IGGY, CMADM #### [facility] [address] [place] [address] Dr. Jorge L Carey CO2 [Moles/Vol] 29.0 mmol/L Normal 21.0-32.0 [facility] Comment on above: Performed By: #### C IGGY, CMADM #### [facility] [address] [place] [address] Dr. Jorge L Carey Creatinine [Mass/Vol] 1.04 mg/dL Normal 0.70-1.30 [facility] Comment on above: Performed By: #### C IGGY, CMADM #### [facility] [address] [place] [address] Dr. Jorge L Carey EGFR-AF SENEGALESE >60 Normal >=60 [facility] Comment on above: Performed By: #### C IGGY, CMADM #### [facility] [address] [place] [address] Dr. Jorge L Carey EGFR-NON AF SENEGALESE >60 Normal >=60 [facility] Comment on above: Performed By: #### C IGGY, CMADM #### [facility] [address] [place] [address] Dr. Jorge L Carey Globulin (S) [Mass/Vol] 3.1 g/dL Normal [facility] Comment on above: Performed By: #### C IGGY, CMADM #### [facility] [address] [place] [address] Dr. Jorge L Carey Glucose [Mass/Vol] 140 mg/dL Critically high 74-106 T [facility] Comment on above: Performed By: #### C MP, CMADM #### [facility] [address] [place] [address] Dr. Jorge L Carey Potassium [Moles/Vol] 3.7 mmol/L Normal 3.5-5.1 [facility] Comment on above: Performed By: #### C MP, CMADM #### [facility] [address] [place] [address] Dr. Jorge L Carey Protein [Mass/Vol] 6.8 g/dL Normal 6.4-8.2 [facility] Comment on above: Performed By: #### C MP, CMADM #### [facility] [address] [place] [address] Dr. Jorge L Carey Sodium [Moles/Vol] 138 mmol/L Normal 136-145 [facility] Comment on above: Performed By: #### C MP, CMADM #### [facility] [address] [place] [address] Dr. Jorge L Carey Urea nitrogen [Mass/Vol] 13.0 mg/dL Normal 7.0-18.0 [facility] Comment on above: Performed By: #### C IGGY, CMADM #### [facility] [address] [place] [address] Dr. Jorge L Carey Urea nitrogen/Creatinine [Mass ratio] 12.5 mg/mg Normal [facility] Comment on above: Performed By: #### C MP, CMADM #### [facility] [address] [place] [address] Dr. Jorge L Carey TROPONIN, HIGH SENSITIVITYon 07-01-2022 HSTROP 10.9 pg/mL Normal 4.0-76.1 [facility] Comment on above: Result Comment: CUT- OFF POINTS HAVE BEEN ESTABLISHED BASED ON THE FOURTH UNIVERSAL DEFINITIONS OF MYOCARDIAL INFARCTION. THE UPPER REFERENCE LIMIT (URL) OF TROPONIN, DEFINED THE 99TH PERCENTILE OF cTnI DISTRIBUTION IN A REFERENCE POPULATION, HAS BEEN CONFIRMED THE DECISION THRESHOLD FOR DE DIAGNOSIS. Performed By: #### B MP, LIPID, ALT, URIC #### [facility] [address] [place] [address] Dr. Jorge L Carey XR CHEST 1 [...] FILIPPO MASTERS Date: 2022-07-01 19:57 Normal [facility] CBC AUTO DIFFon 04-18-2022 BASO # 0.0 103/ul Normal 0.0-0.1 [facility] Comment on above: Performed By: #### C BC #### [facility] [address] [place] [address] Dr. Jorge L Carey Basophils/100 WBC (Bld) 0.7 % Normal 0.2-2.0 [facility] Comment on above: Performed By: #### C BC #### [facility] [address] [place] [address] Dr. Jorge L Carey EO # 0.2 103/ul Normal 0.0-0.7 [facility] Comment on above: Performed By: #### C BC #### [facility] [address] [place] [address] Dr. Jorge L Carey Eosinophils/100 WBC (Bld) 2.6 % Normal 0.9-7.0 [facility] Comment on above: Performed By: #### C BC #### [facility] [address] [place] [address] Dr. Jorge L Carey Erythrocyte distribution width (RBC) [Ratio] 11.5 % Normal 11.0-15.0 [facility] Comment on above: Performed By: #### C BC #### [facility] [address] [place] [address] Dr. Jorge L Carey Hematocrit (Bld) [Volume fraction] 44.7 % Normal 42.0-54.0 [facility] Comment on above: Performed By: #### C BC #### [facility] [address] [place] [address] Dr. Jorge L Carey Hemoglobin (Bld) [Mass/Vol] 15.5 g/dL Normal 14.0-18.0 [facility] Comment on above: Performed By: #### C BC #### [facility] [address] [place] [address] Dr. Jorge L Carey IG # 0.01 10e3/ul Normal 0.00-0.03 [facility] Comment on above: Performed By: #### C BC #### [facility] [address] [place] [address] Dr. Jorge L Carey IG % 0.2 % Normal 0.0-0.5 [facility] Comment on above: Performed By: #### C BC #### [facility] [address] [place] [address] Dr. Jorge L Carey LYMPH # 1.3 103/ul Normal 1.2-3.8 [facility] Comment on above: Performed By: #### C BC #### [facility] [address] [place] [address] Dr. Jorge L Carey Lymphocytes/100 WBC (Bld) 21.3 % Normal 20.5-60.0 [facility] Comment on above: Performed By: #### C BC #### [facility] [address] [place] [address] Dr. Jorge L Carey MANUAL DIFF REQ NO Normal [facility] Comment on above: Performed By: #### C BC #### [facility] [address] [place] [address] Dr. Jorge L Carey MCH (RBC) [Entitic mass] 30.1 pg Normal 25.9-34.0 [facility] Comment on above: Performed By: #### C BC #### [facility] [address] [place] [address] Dr. Jorge L Carey MCHC (RBC) [Mass/Vol] 34.7 g/dL Normal 29.9-35.2 [facility] Comment on above: Performed By: #### C BC #### [facility] [address] [place] [address] Dr. Jorge L Carey MCV (RBC) [Entitic vol] 86.8 fL Normal 80.0-94.0 [facility] Comment on above: Performed By: #### C BC #### [facility] [address] [place] [address] Dr. Jorge L Carey MONO # 0.4 103/ul Normal 0.3-0.8 [facility] Comment on above: Performed By: #### C BC #### [facility] [address] [place] [address] Dr. Jorge L Carey Monocytes/100 WBC (Bld) 7.2 % Normal 1.7-12.0 [facility] Comment on above: Performed By: #### C BC #### [facility] [address] [place] [address] Dr. Jorge L Carey NEUT # 4.1 103/ul Normal 1.4-6.5 [facility] Comment on above: Performed By: #### C BC #### [facility] [address] [place] [address] Dr. Jorge L Carey Neutrophils/100 WBC (Bld) 68.0 % Normal 43.0-75.0 [facility] Comment on above: Performed By: #### C BC #### [facility] [address] [place] [address] Dr. Jorge L Carey Platelet mean volume (Bld) [Entitic vol] 12.0 fL Normal 9.5-13.5 [facility] Comment on above: Performed By: #### C BC #### [facility] [address] [place] [address] Dr. Jorge L Carey PLT 163 103/ul Normal 150-450 [facility] Comment on above: Performed By: #### C BC #### [facility] [address] [place] [address] Dr. Jorge L Carey RBC 5.15 106/ul Normal 4.70-6.10 [facility] Comment on above: Performed By: #### C BC #### [facility] [address] [place] [address] Dr. Jorge L Carey WBC 6.1 103/ul Normal 4.0-11.0 [facility] Comment on above: Performed By: #### C BC #### [facility] [address] [address] [address] Jorge L Carey GLYCOHEMOGLOBIN A1Con 2021 ADA RECOMMENDATION SEE BELOW Normal [facility] Comment on above: Result Comment: ADA RECOMMENDED LIMIT 4.0 - 6.0 ADA THERAPEUTIC TARGET < 7.0 ACTION SUGGESTED > 7.0 Performed By: #### B MP, LIPID, ALT, URIC #### [facility] [address] [address] [address] Jorge L Carey Glucose [Mass/Vol] 146 mg/dL Normal [facility] Comment on above: Performed By: #### B MP, LIPID, ALT, URIC #### [facility] [address] [address] [address] Jorge L Carey HbA1c (Bld) [Mass fraction] 6.7 % Critically high 4.5-6.2 [facility] Comment on above: Performed By: #### B MP, LIPID, ALT, URIC #### [facility] [address] [address] [address] Jorge L Carey LIPID PROFILEon 04-18-2022 CHOL-HDL RATIO NORM SEE BELOW Normal [facility] Comment on above: Result Comment: 3.3 - 4.4 LOW RISK 4.4 - 7.1 AVERAGE RISK 7.1 - 11.0 MODERATE RISK >11.0 HIGH RISK Performed By: #### B MP, LIPID, ALT, URIC #### [facility] [address] [address] [address] Jorge L Carey Cholesterol [Mass/Vol] 117 mg/dL Normal <=200 [facility] Comment on above: Performed By: #### B MP, LIPID, ALT, URIC #### [facility] [address] [address] [address] Jorge L Carey Cholesterol in HDL [Mass/Vol] 48 mg/dL Normal 40-60 [facility] Comment on above: Performed By: #### B MP, LIPID, ALT, URIC #### [facility] [address] [address] [address] Jorge L Carey Cholesterol in LDL [Mass/Vol] 50.6 mg/dL Normal [facility] Comment on above: Performed By: #### B MP, LIPID, ALT, URIC #### [facility] [address] [address] [address] Jorge L Carey Cholesterol.total/Ch olesterol in HDL [Mass ratio] 2.4 {ratio} Normal [facility] Comment on above: Performed By: #### B MP, LIPID, ALT, URIC #### [facility] [address] [address] [address] Jorge L Carey HDL NORMAL > or = 60 mg/dl - LO W CARDIOVASCULAR RISK <40 mg/dl - HIGH CARDIOVASCULAR RISK Normal [facility] Comment on above: Performed By: #### B MP, LIPID, ALT, URIC #### [facility] [address] [address] [address] Jorge L Carey LDL CALC NORMAL SEE BELOW Normal [facility] Comment on above: Result Comment: <100 mg/dl OPTIMAL 100 - 129 mg/dl NEAR OR ABOVE OPTIMAL 130 - 159 mg/dl BORDERLINE HIGH 160 - 189 mg/dl HIGH >190 mg/dl VERY HIGH Performed By: #### B MP, LIPID, ALT, URIC #### [facility] [address] [address] [address] Jorge L Carey Triglyceride [Mass/Vol] 92 mg/dL Normal <=150 [facility] Comment on above: Performed By: #### B MP, LIPID, ALT, URIC #### [facility] [address] [address] [address] Jorge L Carey VLDL CALC 18.4 mg/dL Normal [facility] Comment on above: Performed By: #### B MP, LIPID, ALT, URIC #### [facility] [address] [address] [address] Jorge L Carey MICROALBUMIN, RAND URon 11-0 mALB <1.3 Normal <=30.0 [facility] Comment on above: Performed By: #### M ALBR #### [facility] [address] [address] [address] Jorge L Carey PROF CHEM 8 (BAS METB)on 11- 02-2022 Anion gap [Moles/Vol] 9.5 mmol/L Normal [facility] Comment on above: Performed By: #### B MP, LIPID, ALT, URIC #### [facility] [address] [place] [address] Dr. Jorge L Carey Calcium [Mass/Vol] 8.6 mg/dL Normal 8.5-10.1 [facility] Comment on above: Performed By: #### B MP, LIPID, ALT, URIC #### [facility] [address] [place] [address] Dr. Jorge L Carey Chloride [Moles/Vol] 102 mmol/L Normal 98-107 [facility] Comment on above: Performed By: #### B MP, LIPID, ALT, URIC #### [facility] [address] [place] [address] Dr. Jorge L Carey CO2 [Moles/Vol] 30.8 mmol/L Normal 21.0-32.0 [facility] Comment on above: Performed By: #### B MP, LIPID, ALT, URIC #### [facility] [address] [place] [address] Dr. Jorge L Carey Creatinine [Mass/Vol] 0.95 mg/dL Normal 0.70-1.30 [facility] Comment on above: Performed By: #### B MP, LIPID, ALT, URIC #### [facility] [address] [place] [address] Dr. Jorge L Carey EGFR-AF SENEGALESE >60 Normal >=60 [facility] Comment on above: Performed By: #### B MP, LIPID, ALT, URIC #### [facility] [address] [place] [address] Dr. Jorge L Carey EGFR-NON AF SENEGALESE >60 Normal >=60 [facility] Comment on above: Performed By: #### B MP, LIPID, ALT, URIC #### [facility] [address] [place] [address] Dr. Jorge L Carey Glucose [Mass/Vol] 142 mg/dL Critically high 74-106 [facility] Comment on above: Performed By: #### B MP, LIPID, ALT, URIC #### [facility] [address] [address] [address] Jorge L Carey Potassium [Moles/Vol] 4.3 mmol/L Normal 3.5-5.1 [facility] Comment on above: Performed By: #### B MP, LIPID, ALT, URIC #### [facility] [address] [address] [address] Jorge L Carey Sodium [Moles/Vol] 138 mmol/L Normal 136-145 [facility] Comment on above: Performed By: #### B MP, LIPID, ALT, URIC #### [facility] [address] [place] [address] Dr. Jorge L Carey Urea nitrogen [Mass/Vol] 14.0 mg/dL Normal 7.0-18.0 [facility] Comment on above: Performed By: #### B MP, LIPID, ALT, URIC #### [facility] [address] [place] [address] Dr. Jorge L Carey Urea nitrogen/Creatinine [Mass ratio] 14.7 mg/mg Normal [facility] Comment on above: Performed By: #### B MP, LIPID, ALT, URIC #### [facility] [address] [place] [address] Dr. Jorge L Carey SGPTon 04-18-2022 ALT [Catalytic activity/Vol] 27 U/L Normal 16-63 [facility] Comment on above: Performed By: #### B MP, LIPID, ALT, URIC #### [facility] [address] [place] [address] Dr. Jorge L Carey URIC ACID SERUMon 04-18-2022 Urate [Mass/Vol] 5.5 mg/dL Normal 3.5-7.2 [facility] Comment on above: Performed By: #### B MP, LIPID, ALT, URIC #### [facility] [address] [place] [address] Dr. Jorge L Carey GLYCOHEMOGLOBIN A1Con 2021 ADA RECOMMENDATION SEE BELOW Normal [facility] Comment on above: Result Comment: ADA RECOMMENDED LIMIT 4.0 - 6.0 ADA THERAPEUTIC TARGET < 7.0 ACTION SUGGESTED > 7.0 Performed By: #### B MP, LIPID, ALT, URIC #### [facility] [address] [place], [place] [address] Dr. Jorge L Carey Glucose [Mass/Vol] 160 mg/dL Normal [facility] Comment on above: Performed By: #### B MP, LIPID, ALT, URIC #### [facility] [address] [place], [place] [address] Dr. Jorge L Carey HbA1c (Bld) [Mass fraction] 7.2 % Critically high 4.5-6.2 [facility] Comment on above: Performed By: #### B MP, LIPID, ALT, URIC #### [facility] [address] [place], [place] [address] Dr. Jorge L Carey Ambulatory Visit Summaryon 0 10-06-2021 Ambulatory Visit Summary JOHANNELATISHA FELIPE Сергей :1955 Visit Date:10/06/2021 Ambulatory Visit Instructions Your Diagnosis BPH with urinary obstruction Elevated PSA Tests Performed Urnls Dip Stick Auto w/o Microscopy POC [id number] Your Care Team Attending Physician - Hola [...] Hola AMBRIZ MD Where: [facility] Patient Educationon 10-07-19 Patient Education Urology Benign [...] Follow these instructions at home: ? Take lddc-fbm-yypnqlu and prescription medicines only as told by [...] You d (more content not included)... Normal [facility] Urology Office/Clinic Noteon 10-06-2021 Urology Office/Clinic [...] 10/06/2022 EDT [facility] [address] [place] [address]- [phone] Additional Instructions: PSA Patient Education Benign Prostatic [...] (10/06/21 08:08:00) (more content not included)... Normal [facility] Comment on above: Result Comment: Elec tronically Signed By: Hola AMBRIZ MD\.br\Date and Time Signed: 10/06/21 08:39 EDT\.br\Electronically Co-Signed By: Ciarra Mckeon MA\.br\Date and Time Co-Signed: 10/06/21 08:38 EDT Lab Report[facility] 09-19-2021 Lab Reports [id number] D:127 Normal [facility] GLYCOHEMOGLOBIN A1Con 2021 ADA RECOMMENDATION ADA THERAPEUTIC TARG ET 6.0 - 7.0 ACTION SUGGESTED > 7.0 Normal [facility] Comment on above: Performed By: #### B MP, LIPID, ALT, URIC #### [facility] [address] [place], [place] [address] Dr. Jorge L Carey Glucose [Mass/Vol] 177 mg/dL Normal [facility] Comment on above: Performed By: #### B MP, LIPID, ALT, URIC #### [facility] [address] [place], [place] [address] Dr. Jorge L Carey HbA1c (Bld) [Mass fraction] 7.8 % Critically high <=6.0 [facility] Comment on above: Performed By: #### B MP, LIPID, ALT, URIC #### [facility] [address] [place], [place] [address] Dr. Jorge L Carey [facility] 09-17-2020 Glucose [Mass/Vol] 151 mg/dL Normal [facility] Comment on above: Result Comment: PERF ORMED BY: [place] [address] PATHOLOGIST [employer] SUSAN SEXTON M.D. Performed By: #### O UTREACH GLYCO #### [facility] [address] [place] [address] HbA1c (Bld) [Mass fraction] 6.9 % High 4.3-5.6 [facility] Comment on above: Result Comment: Incr eased risk for diabetes: 5.7 - 6.4 diabetes: >6.4 glycemic control for adults with diabetes: <7.0 Performed By: #### O UTREACH GLYCO #### [facility] [address] [place] [address] Vital Signs Date Time Vital Sign Value Performing Clinician Facility 05-01-2023 08:30-0500 Body height 190.5 cm [facility] Other [facility] Other 05-01-2023 08:30-0500 Body mass index (BMI) [Ratio] 32.19 kg/m2 [facility] [employer] Other [facility] Other 05-01-2023 08:30-0500 Body weight 116.85 kg [facility] [employer] Other [facility] Other 05-01-2023 08:30-0500 Diastolic blood pressure 81 mm[Hg] Bogdan Ball Other [facility] Other 05-01-2023 08:30-0500 Respiratory rate 12 /min Bogdan Ball Other [facility] Other 05-01-2023 08:30-0500 Systolic blood pressure 135 mm[Hg] Bogdan Ball Other [facility] Other 12-26-2022 08:30-0400 Body height 190.5 cm Bogdan Ball Other [facility] Other 12-26-2022 08:30-0400 Body mass index (BMI) [Ratio] 31.54 kg/m2 [facility]dan Ball Other [facility] Other 12-26-2022 08:30-0400 Body weight 114.49 kg Bogdan Ball Other [facility] Other 12-26-2022 08:30-0400 Diastolic blood pressure 85 mm[Hg] Bogdan Ball Other [facility] Other 12-26-2022 08:30-0400 Respiratory rate 12 /min Bogdan Ball Other [facility] Other 12-26-2022 08:30-0400 Systolic blood pressure 139 mm[Hg] Bogdan Ball Other [facility] Other 11-09-2022 10:58-0400 Blood Pressure Location Hola AMBRIZ [facility] 11-09-2022 10:58-0400 Diastolic blood pressure 80 mm[Hg] Hola AMBRIZ [facility] 11-09-2022 10:58-0400 Heart rate 78 /min Hola AMBRIZ [facility] 11-09-2022 10:58-0400 Respiratory rate 16 /min Hola AMBRIZ [facility] 11-09-2022 10:58-0400 Systolic blood pressure 130 mm[Hg] Hola AMBRIZ [facility] 10-05-2022 12:15-0400 Body height 190.5 cm Bogdan Ball Other [facility] Other 10-05-2022 12:15-0400 Body mass index (BMI) [Ratio] 31.17 kg/m2 Bogdan Ball Other [facility] Other 10-05-2022 12:15-0400 Body weight 113.13 kg Bogdan Ball Other [facility] Other 10-05-2022 12:15-0400 Diastolic blood pressure 95 mm[Hg] Bogdan Ball Other [facility] [employer] Other 10-05-2022 12:15-0400 Respiratory rate 12 /min Bogdan Ball Other [facility] Other 10-05-2022 12:15-0400 Systolic blood pressure 168 mm[Hg] Bogdan Ball Other [facility] Other 08-23-2022 08:30-0500 Body height 190.5 cm Bogdan Ball Other [facility] Other 08-23-2022 08:30-0500 Body mass index (BMI) [Ratio] 31.42 kg/m2 [facility]dan Ball Other [facility] Other 08-23-2022 08:30-0500 Body weight 114.04 kg Bogdan Ball Other [facility] Other 08-23-2022 08:30-0500 Diastolic blood pressure 86 mm[Hg] Bogdan Ball Other [facility] Other 08-23-2022 08:30-0500 Respiratory rate 12 /min Bogdan Ball Other [facility] Other 08-23-2022 08:30-0500 Systolic blood pressure 132 mm[Hg] Bogdan Ball Other [facility] Other 10-06-2021 08:14-0400 Blood Pressure Location Hola AMBRIZ [facility] 10-06-2021 08:14-0400 Diastolic blood pressure 98 mm[Hg] Hola AMBRIZ [facility] 10-06-2021 08:14-0400 Heart rate 78 /min Hola AMBRIZ [facility] 10-06-2021 08:14-0400 Systolic blood pressure 145 mm[Hg] Hola AMBRIZ [facility] [employer] Encounters Encounter Date Encounter Type Care Provider Facility Start: 05-20-2023 End: 05-21-2023 ambulatory Dm Cyr MD Facility:[facility] Start: 05-10-2023 End: 05-10-2023 ambulatory Bogdan Ball Other [facility] Other Start: 05-10-2023 Office outpatient vi sit 15 minutes Bogdan Ball [facility] Start: 05-01-2023 End: 05-01-2023 ambulatory Bogdan Green Other [facility] Other Start: 05-01-2023 Patient encounter procedure Bogdan Green [facility] Start: 04-24-2023 End: 04-24-2023 ambulatory Bogdan Green Other [facility] Other Start: 04-24-2023 Telephone encounter Bogdan Green [facility] Start: 02-25-2023 End: 02-25-2023 ambulatory Bogdan Green Other [facility] Other Start: 02-25-2023 Telephone encounter Bogdan Green [facility] Start: 12-27-2022 End: 12-27-2022 ambulatory Bogdan Green Other [facility] Other Start: 12-27-2022 Telephone encounter Bogdan Green [facility] Start: 12-26-2022 End: 12-26-2022 ambulatory Bogdan Green Other [facility] Other Start: 12-26-2022 Office outpatient vi sit 25 minutes Bogdan Green [facility] Start: 11-19-2022 End: 11-19-2022 ambulatory Bogdan Green Other [facility] Other Start: 11-19-2022 Telephone encounter Bogdan Green [facility] Start: 11-09-2022 ambulatory Hola AMBRIZ Facili ty:[facility] [place] Start: 11-09-2022 End: 11-09-2022 Patient encounter procedure Hola AMBRIZ [facility] [place] Start: 10-22-2022 End: 10-22-2022 ambulatory Bogdan Green Other [facility] Other Start: 10-22-2022 Telephone encounter Bogdan Peter [facility] Start: 10-18-2022 End: 10-18-2022 ambulatory Bogdan Peter Other [facility] Other Start: 10-18-2022 Telephone encounter Bogdan Peter [facility] Start: 10-05-2022 End: 10-05-2022 ambulatory Bogdan Green Other [facility] Other Start: 10-05-2022 Office outpatient vi sit 15 minutes Bogdan Ball [facility] Start: 09-27-2022 End: 09-27-2022 ambulatory Bogdan Peter Other [facility] Other Start: 09-27-2022 Telephone encounter Bogdan Peter [facility] Start: 09-25-2022 End: 09-25-2022 ambulatory Bogdan Green Other [facility] Other Start: 09-25-2022 Telephone encounter Bogdan Green [facility] Start: 09-21-2022 End: 09-21-2022 ambulatory Bogdan Green Other [facility] Other Start: 09-21-2022 Telephone encounter Bogdan Green [facility] Start: 08-23-2022 End: 08-23-2022 ambulatory Bogdan Green Other [facility] Other Start: 08-23-2022 Office outpatient vi sit 25 minutes Bogdan Green [facility] Start: 08-17-2022 End: 08-18-[address] BOGDAN GREEN Facility:[facility] Start: 08-14-2022 End: 08-14-2022 ambulatory Bogdan Green Other [facility] Other Start: 08-14-2022 Telephone encounter Bogdan Green [facility] Start: 07-01-2022 End: 07-01-[address] BOGDAN GREEN Facility:[facility] Start: 04-25-2022 Adult health examination Bogdan Green Other [facility] Other Start: 04-18-2022 End: 04-19-[address] BOGDAN GREEN Facility:[facility] Start: 01-20-2022 End: 01-21-2022 ambulatory NONE LISTED REQUEST Facility:[facility] Start: 10-06-2021 ambulatory Hola AMBRIZ Facility : [facility] Start: 10-06-2021 End: 10-07-2021 ambulatory Hola AMBRIZ Facility:[facility] [place] Start: 10-06-2021 End: 10-06-2021 Patient encounter procedure Hola AMBRIZ [facility] Start: 09-16-2021 End: 09-17-[address] HOLA AMBRIZ . Facility:[facility] Start: 09-15-2021 End: 09-16-2021 ambulatory NONE LISTED REQUEST Facility:[facility] Start: 08-29-[address] BOGDAN GREEN Facili ty:[facility] Procedures Date Procedure Procedure Detail Performing Clinician Start: 09-16-[address] PISANO IN [facility] Comment on above: Performed By: #### B MP, LIPID, ALT, URIC #### [facility] [address] [place] [address] Dr. Jorge L Carey Start: 03-29-2017 General [...] 04-29-2023 zoster vaccine recombinant [facility] Other [facility] Other 04-26-2023 influenza, high dose seasonal, preservative-free Bogdan Green Other [facility] Other 02-26-2023 zoster vaccine recombinant Bogdan Green Other [facility] Other 04-25-2022 pneumococcal 20-alber nt conjugate vaccine Hola AMBRIZ [facility] 04-16-2022 influenza virus vaccine, split virus (incl. purified surface antigen) [facility] Green Other [facility] Other 04-16-2022 influenza virus vaccine, unspecified formulation Hola JOSE [facility] 03-23-2022 SARS-CoV-2 (COVID-19 ) [id number] Hola AMBRIZ [facility] 05-08-2021 SARS-CoV-2 (COVID-19 ) mRNA BNT-162b2 vax Holaconnor AMBRIZ [facility] 04-22-2021 influenza virus vaccine, split virus (incl. purified surface antigen) Bogdan Green Other [facility] Other 04-22-2021 influenza virus vaccine, unspecified formulation Hola JOSE [facility] 03-30-2021 influenza virus vaccine, unspecified formulation Hola AMBRIZ [facility] 09-16-2020 COVID-19, mRNA, LNP- S, PF, 30 mcg/0.3 mL dose; 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: [Pfizer-BioNTech COVID-19 Vaccine] Hola AMBRIZ [facility] Comment on above: Reason for Medicatio n: Prophylaxis 08-26-2020 COVID-19, mRNA, LNP- S, PF, 30 mcg/0.3 mL dose; 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: [Pfizer-BioNTech COVID-19 Vaccine] Hola AMBRIZ [facility] Comment on above: Reason for Medicatio n: Prophylaxis 04-16-2020 influenza virus vaccine, split virus (incl. purified surface antigen) [facility] Green Other [facility] Other 04-16-2020 influenza virus vaccine, unspecified formulation Hola AMBRIZ [facility] pneumococcal Conjuga te, unspecified formulation; 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: [Need for prophylactic vaccination against Streptococcus pneumoniae (pneumococcus)] Bogdan Green Other [facility] Other Payers Date Payer Category Payer Medicare 2022 Unknown 2021 Medicare [id number] 2020 Unknown [id number] 1959 Medicare [id number] 1959 Self-pay [id number] 1959 Unknown [id number] 1959 Unknown [id number] 1956 Unknown [id number] 2.16.84 [id number] 1956 Unknown [id number] 2.16.84 [id number] 1956 Unknown [id number] 2.16.84 [id number] 1956 Unknown [id number] 2.16.84 [id number] 1956 Unknown [id number] 2.16.84 [id number] 1956 Unknown [id number] 2.16.8 [id number] 1956 Unknown [id number] 2.16.8 [id number] 1956 Unknown [id number] 2.16. [id number] [facility] [id number] Unknown [id number] 2.16.84 [id number] Unknown [id number] 2.16.84 [id number] Social History Date Type Detail Facility Start: 10-06-2021 End: 11-09-2022 Tobacco smoking status Never smoked tobacco (finding) [facility] Sex Assigned At Male [facility] Tobacco smoking status Never [facility] Functional Status Date Assessment Result Facility 11-09-2022 Functional Status N/A [facility] Clinical Notes 10-06-2021 to 05-10-2023 Note Date [...] Microalbumin, Dilated eye exam and Foot exam [facility] Other 11-15-2023 Evaluation note* Encounter Date Diagnosis [...] flares Sep, Thrombocytopenia, unspecified (ICD-10 - D69.6) [facility] Other 11-15-2023 Evaluation note* Encounter Date Diagnosis [...] flares Sep, Thrombocytopenia, unspecified (ICD-10 - D69.6) [facility] Other 11-08-2023 Evaluation note* Encounter Date Diagnosis Assessment Notes Treatment Notes Treatment Clinical Notes Apr, Screening PSA (prostate specific antigen) (ICD-10 - Z12.5) Apr, Type 2 diabetes mellitus with hyperglycemia, without long-term current use of insulin (ICD-10 - E11.65) Apr, Elevated cholesterol (ICD-10 - E78.00) Apr, Primary hypertension (ICD-10 - I10) Sep, Thrombocytopenia, unspecified (ICD-10 - D69.6) Thrombocytopenia [facility] Other 07-12-2023 Evaluation note* Encounter Date Diagnosis [...] [BMI] 31.0-31.9, adult (ICD-10 - Z68.31) Dec, FDC (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 (ICD-10 - Z79.4) [facility] Other 05-26-2023 Hospital Discharge instructions Patient Education [...] treatment? Where to find more information [employer] [place] [employer]: www.cancer.org [employer] [employer]: www.auanet.org Contact a health care [...] provider. Document Revised: 11/27/2021 Document Reviewed: 11/27/2021 [employer] Patient Education 2022 [place]. Follow Up Care 10/06/2021 08:40:21 With:JOSE MCMANUS, Hola Rushing, URL Address: [facility] [address], [place] [address]- When: Unknown [facility] 05-08-2023 Evaluation note* Encounter Date Diagnosis Assessment Notes Treatment Notes Treatment Clinical Notes October, Primary hypertension (ICD-10 - I10) [facility] Other 05-04-2023 Evaluation note* Encounter Date Diagnosis Assessment Notes Treatment Notes Treatment Clinical Notes October, Primary hypertension (ICD-10 - I10) [facility] Other 04-21-2023 Evaluation note* Encounter Date Diagnosis [...] and Glimepiride appear to be controlling BS. [facility] Other 04-13-2023 Evaluation note* Encounter Date Diagnosis Assessment Notes Treatment Notes Treatment Clinical Notes Sep, Type 2 diabetes mellitus with hyperglycemia (ICD-10 - E11.65) Sep, FDC (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 (ICD-10 - Z79.4) [facility] Other 04-11-2023 Evaluation note* Encounter Date Diagnosis Assessment Notes Treatment Notes Treatment Clinical Notes Sep, Type 2 diabetes mellitus with hyperglycemia, without long-term current use of insulin (ICD-10 - E11.65) [facility] Other 04-07-2023 Evaluation note* Encounter Date Diagnosis Assessment Notes Treatment Notes Treatment Clinical Notes Sep, Type 2 diabetes mellitus with hyperglycemia (ICD-10 - E11.65) [facility] Other 03-09-2023 Evaluation note* Encounter Date Diagnosis [...] Reviewed red flag symptoms and nerve impingement [facility] Other 02-28-2023 Evaluation note* Encounter Date Diagnosis Assessment Notes Treatment Notes Treatment Clinical Notes Jul, Type 2 diabetes mellitus with hyperglycemia, without long-term current use of insulin (ICD-10 - E11.65) [facility] Other 04-22-2022 Hospital Discharge instructions Patient Education [...] urethra. Follow these instructions at home: Take [id number] and prescription medicines only as told by [...] 06/03/2006 Document Revised: 04/28/2019 Document Reviewed: 07/08/2017 [employer] Patient Education 2020 [place]. Follow Up Care 10/03/2020 15:00:49 With:Hola AMBRIZ MD, URL Address: [facility] [address], [place] [address]- [phone] When:10/06/2022 [facility] evaluation + Plan note Future Appointments Appointment Date:10/12/2022 08:00:00 AM Scheduled Provider:Hola AMBRIZ MD Location:[facility] Appointment Type:URO Office Visit Diagnostic Tests Pending * PSA Total 10/06/21 [facility] evaluation + Plan note Future Appointments Appointment Date:11/18/2023 08:45:00 AM Scheduled Provider:Hola AMBRIZ MD Location:[facility] Appointment Type:URO Office Visit Diagnostic Tests Pending * PSA Free & Total 11/09/22 [facility] evaluation [email or web address] Other Evaluation noteNo [email or web address] Other [facility] general Narrative - Reported* Type Description Date [...] History CYSTOSCOPY 2016 Hospitalization History SEE SURGICAL [employer] Other History general Narrative - [facility] Other history general Narrative - Reported* Type [...] CYSTOSCOPY 2016 Hospitalization History SEE SURGICAL HX [facility] Other Hospital course Narrative No data available for this section [facility] progress note No data available for this section [facility] Summary Purpose Family History No Family History [...] well ness visit, initial (Z00.00) Referral Organization [facility] jono Referring Provider First Name Bogdan Referring Provider Last Name Peter Referring Provider Specialty Internal Me dicine Referred Organization [facility] Referred Provider Swapnil French Referred Address [address], [place],[address] Referred Provider Specialty Pain Medicin e Referral [...] Notes Include XR lumbar sp ine f: [id number] Additional Source Comments (unrecognized sect ion and content) No Status Records FoundNo Status Records FoundNo Status Records FoundNo Status Records Found INFORMATION SOURCE (unrecogn ized section and content) DATE CREATED AUTHOR 07/30/2021 [facility] DATE CREATED AUTHOR AUTHOR'S ORGANIZ ATION 08/22/2022 [facility] DATE CREATED AUTHOR AUTHOR'S ORGANIZ ATION 09/07/2022 [facility] DATE CREATED AUTHOR AUTHOR'S ORGANIZ ATION 05/31/2023 [facility] REASON FOR VISIT (unrecogniz ed section and content) [phone] PositiveW ellnesslabsLab ResultsBP readingsrefillelevated BPMedication4 MONTH FOLLOW UP Patient Care team informatio n (unrecognized section and content) Personnel Name: BOGDAN GREEN DO Address: Address: [address] FOR RECORDS PERTAINING TO PATIENTS WHO [...] BE BASED ON THE PRIMARY CLINICAL RECORDS. [facility]. provides no warranty or guarantee of the accuracy or completeness of information in this document.
--- NOTE | 2023-07-04 11:08 | P.CN_ITS ---
Consult Note: HPI Data of Consult Patient: known to practice within the last 3 years Consult date: 05/20/23 Requesting Physician: Radha Cope NP Primary Care Provider: Bogdan Green DO Family Provider: f/u Consult Narrative Reason for consult: low back pain Narrative: 67yom who presents for evaluation. worsening axial low back pain that has persisted for >1 year. underwent physical therapy in the summer and continues in a course of provider directed home exercises, which have not provided significant relief for >6 weeks >3x/week. imaging reviewed, significant for facet arthropathy in lower lumbar spine. uses otc pain meds as needed. Recently underwent bilateral L4-5 L5-S1 facet medial branch block #1 with 80% improvement in pain and functional ability immediately following and hours after. Patients goals are to ambulate further and be able to carry his granddaughter with less pain. cc:: CC: Radha Cope NP Review of Systems ROS Status of ROS 10 or more systems reviewed and unremark able except as noted in history and below Musculoskeletal Reports: back pain PFSH PFSH Medical History History of stress test ?Z92.89 - Personal history of other medical treatment (ICD-10) Acid reflux ?K21.9 - Gastro-esophageal reflux disease without esophagitis (ICD-10) Diabetes ?E11.9 - Type 2 diabetes mellitus without complications (ICD-10) HTN (hypertension) ?I10 - Essential (primary) hypertension (ICD-10) Surgical History History of hernia repair ?Z98.890 - Other specified postprocedural states (ICD-10) ?Z87.19 - Personal history of other diseases of the digestive system (ICD-10) Meds Home Medications and Allergies Home Medications Medication Instructions Recorded Confirmed Type allopurinol 100 mg tablet 100 mg PO DAILY 06/14/23 06/14/23 History amlodipine 5 mg tablet 5 mg PO DAILY 06/14/23 06/14/23 History atorvastatin 10 mg tablet 10 mg PO DAILY 06/14/23 06/14/23 History benazepril 5 mg tablet 20 mg PO DAILY 06/14/23 06/14/23 History finasteride 5 mg tablet 5 mg PO DAILY 06/14/23 06/14/23 History glimepiride 4 mg tablet 4 mg PO DAILY 06/14/23 06/14/23 History insulin glargine 100 unit/mL (3 25 unit subcut DAILY 06/14/23 06/14/23 History mL) subcutaneous pen (Lantus Solostar U-100 Insulin) latanoprost 0.005 % eye drops 1 drp ophthalmic (eye) DAILY 06/14/23 06/14/23 History metformin 1,000 mg tablet 1,000 mg PO BID 06/14/23 06/14/23 History tamsulosin 0.4 mg capsule 0.4 mg PO Q24H 06/14/23 06/14/23 History cetirizine 10 mg capsule (All Day 10 mg PO DAILY PRN allergy symptoms 06/24/23 06/24/23 History Allergy (cetirizine)) omeprazole 10 mg capsule,delayed 10 mg PO DAILY 06/24/23 06/24/23 History release Allergies Allergy/AdvReac Type Severity Reaction Status Date / Time No Known Drug Allergies Allergy Verified 06/24/23 08:39 Exam Narrative Exam Narrative: Psych-alert and oriented x 3. Attentive and appropriate, constitutionally normal, displays normal mood and affect per situation.? There are no obvious deficits in memory, reasoning, or intellect.? Skin-no obvious rashes, bruising, erythema noted to the patient's area of pain. Extremities- extremities are warm with minimal edema and palpable pulses. Lumbar-no significant tenderness to palpation noted in the lumbar spine and paraspinal musculature.? Pain is elicited with extension, and lateral rotation of the lumbar spine. Range of motion is slightly diminished with these motions due to pain. Facet loading maneuvers are positive bilaterally and do appear to be concordant with the patient's normal complaints of pain.? Coordination remains intact.? Gait remains non-antalgic. Assessment and Plan Assessment and Plan (1) Lumbar spondylosis: Assessment and Plan: The patient has had over 3 months of moderate to severe low back pain with functional impairment and inadequate response to conservative care including NSAIDS (unless there are contraindication such as concurrent blood thinners), multiple oral or topical pain medications, and home exercise program/physical therapy.? Patient has completed >6 weeks of guided home exercise program and/or formal physical therapy program without relief of their symptoms.? We discussed the risks and benefits of the procedure with the patient, and we are NOT planning on using sedation as outlined in the guidelines from Medicare unless there is a documented reason that sedation would be strongly recommended.?? The procedure will be completed with fluoroscopic guidance.? Plan proceed with bilateral L4-5 L5-S1 mbb #2 working towards thermal RFA continue HEP as tolerated f/u 1 week after procedure
== END 2023-07-04 10:11 | disposition home or self-care (01) ==
LOC: PM 10:11
PROVIDERS: PCP Internal Medicine; Visit Provider Nurse Practitioner
DX: M47.816 Spondylosis without myelopathy or radiculopathy, lumbar region (principal)
CPT/HCPCS: G0463

== ENCOUNTER 2023-07-15 09:29 | Day surgery (SDC) | payer MEDICARE, BC, SELFPAY ==
--- OUTSIDE RECORDS SUMMARY | 2023-07-15 09:32 | XMS_ITS | CCD ---
Author Name Unknown Address [address] [facility] [address] [place] [address] Organization [facility] Care Team Providers Care Chief Mechanical Engineer Name Role Phone BOGDAN GREEN Primary Care [...] Unavailable Klarissa MCMANUS, Dm Santos Attending Unavailable Klarissa MCMANUS, Dm Santos Attending Unavailable Allergies Allergy Classification Reported Allergen(s) Allergy Type Date of Onset Reaction(s) Facility (1 source) No Known Medication Allergies; 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: [No Known Medication Allergies] Propensity to adverse reactions (disorder) [facility] Repository (2 sources) patient allergy list reviewed by nurse or physicia Propensity to adverse reactions 05-24-201 6 Comment:Done [employer] Other Medications Current Medications Medication Drug Class(es) Dates Sig (Normalized) Sig (Original) allopurinol 100 mg oral tablet (10 sources) Xanthine Oxidase Inhibitor Start: 10-06-2021 take 1 mg by mouth twice daily allopurinol 100 mg Tab mg tab(s), Oral, BID, Refills(s) 0 Start Date: 10/06/21 Status: Ordered take 1 tablet by osbaldo th every twenty-four hours Allopurinol 100 MG 1 tablet Orally Once a day for 30 days Active amLODIPine 5 mg oral tablet (11 sources) Dihydropyridine Calcium Channel Andrew Start: 10-22-2022 take 1 tablet by mouth every twenty-four hours amLODIPine Besylate 5 MG 1 tablet Orally Once a day October, Active atorvastatin 10 mg oral tablet (18 sources) HMG-CoA Reductase Inhibitor Start: 11-09-2022 atorvastatin 10 mg Tab Refills(s) 0 Start Date: 11/09/22 Status: Ordered benazepril hydrochloride 5 mg oral tablet (19 sources) Angiotensin Converting Enzyme Inhibitor Start: 03-25-2019 [...] for 30 days Active 0.5 ml dulaglutide 1.5 mg/ml auto-injector (19 sources) GLP-1 Receptor Agonist Start: 07-08-2023 inject 0.75 mg by subcutaneous injection every week Trulicity 0.75 MG/0.5ML 0.75 MG Subcutaneous weekly for 28 days Jun, Active Start: 08-23-2022 inject 1.5 mg by sub cutaneous injection every week Trulicity 1.5 MG/0.5ML 1.5mg Subcutaneous weekly for 28 days Aug, Active Start: 10-03-2020 Trulicity Pen SubCutaneous, qWeek, Refills(s) 0 Start Date: 10/03/20 Status: Ordered Trulicity 3 MG/0 .5ML INJECT 1 PEN UNDER THE SKIN ONCE A WEEK for 28 Not-Taking/PRN Trulicity 3 MG/0 .5ML INJECT 1 PEN UNDER THE SKIN ONCE A WEEK for 28 Not-Taking Trulicity 3 MG/0 .5ML INJECT 1 PEN UNDER THE SKIN ONCE A WEEK for 28 Active finasteride 5 mg oral tablet (10 sources) 5-alpha Reductase Inhibitor Start: 11-09-2022 End: 11-04-2023 take 1 tablet by mouth once daily finasteride 5 mg Tab 5 mg = 1 tab(s), Oral, Daily, X 90 day(s), # 90 tab(s), Refills(s) 3, Pharmacy: [facility]/pharmacy #[id number], 195, cm, 11/09/22 11:00:00 EDT, Height/Length Dosing, 111, kg, 11/09/22 11:00:00 EDT, Weight Dosing Start Date: 11/09/22 Stop Date: 11/04/23 Status: Ordered Start: 10-06-2021 take 1 tablet by osbaldo once daily finasteride 5 mg Tab 5 mg = 1 tab(s), Oral, Daily, # 90 tab(s), Refills(s) 3, Pharmacy: [facility]/pharmacy #[id number], 195, cm, 10/06/21 8:16:00 EDT, Height/Length Dosing, 109.5, kg, 10/06/21 8:16:00 EDT, Weight Dosing Start Date: 10/06/21 Status: Ordered take 1 tablet by osbaldo every twelve hours Finasteride 5 MG 1 tablet Orally twice a day Active glimepiride 4 mg oral tablet (18 sources) Sulfonylurea Start: 11-09-2022 glimepiride 4 mg Tab Refills(s) 0 Start Date: 11/09/22 Status: Ordered take 2 tablets by [facility] every twenty-four hours Glimepiride 4 MG 2 tablets Orally once a day Active Glimepiride 4 MG 2 tablets taken 30 minutes prior to first meal of day Orally Once a day Active 3 ml insulin glargine 100 unt/ml pen injector (20 sources) Insulin Analog Start: 11-09-2022 Lantus Solosta r Pen 100 units/mL subcutaneous solution Refills(s) 0 Start Date: 5/26/23 Status: Ordered Start: 09-25-2022 Lantus SoloSta r 100 UNIT/ML 25 units Subcutaneous q HS Sep, Active Start: 09-25-2022 inject 10 [IU] by cifuentes bcutaneous injection once at bedtime Kg YañezPen 100 UNIT/ML 10 units Subcutaneous q HS for 30 days Sep, Not-Taking/PRN Start: 09-25-2022 metFORMIN hydrochloride 1000 mg oral tablet (19 sources) Biguanide Start: 03-25-2019 take 1 tablet by mouth twice daily metformin 1000 mg Tab 1,000 mg = 1 tab(s), Oral, BID Start Date: 03/25/19 Status: Ordered omeprazole 20 mg delayed release oral tablet (8 sources) Proton Pump Inhibitor take 1 tablet by mouth once daily PriLOSEC OTC 20 MG 1 tablet 30 minutes before morning meal Orally Once a day Active take 1 tablet by mouth once mattie y PriLOSEC OTC 20 MG 1 tablet 30 minutes before morning meal Orally Once a day Active OneTouch Ultra - (17 sources) OneTouch Ultra - USE TO TEST BLOOD SUGAR ONCE A DAY for 50 Active paxlovid (300/100) 20 x 150 mg & 10 x 100mg tablet therapy pack (1 source) Start: 05-10-2023 Paxlovid (300/ 100) 20 x 150 MG & 10 x 100MG as directed Orally bid for 5 days Apr, Active Pen Armstrong 5/16 (13 sources) Start: 09-27-2022 Start: 09-27-2022 Pen Armstrong 16 Use to inject insulin qd SC daily for 30 days Sep, Active tamsulosin hydrochloride 0.4 mg oral capsule (10 sources) alpha-Adrenergic Andrew Start: 10-06-2021 End: 10-27-2023 take 1 capsule by mouth twice daily tamsulosin 0.4 mg Cap 0.4 mg = 1 cap(s), Oral, BID, X 30 day(s), # 60 cap(s), Refills(s) 11, Pharmacy: [facility]/pharmacy #[id number], 195, cm, 10/06/21 8:16:00 EDT, Height/Length [...] acid 4700 mg / polyethylene glycol 3350 096755 mg / potassium chloride 1015 mg / sodium ascorbate 5900 mg / sodium chloride 2690 mg / sodium sulfate 7500 mg powder for oral solution (17 sources) Osmotic Laxative, Vitamin C Start: 04-07-2014 MoviPrep 100 GM as directed Orally as directed for 1 dose(s) Mar, Not-Taking/PRN azithromycin 250 mg oral tablet (8 sources) Macrolide Antimicrobial Start: 11-26-2022 Azithromycin 250 MG as directed Orally 2 tabs po today, then 1 tab daily x 4 more days for 5 Nov, Not-Taking/PRN benzonatate 200 mg oral capsule (8 sources) Non-narcotic Antitussive Start: 11-26-2022 take 1 capsule by mouth every eight hours Benzonatate 200 MG 1 capsule Orally Three times a day for 10 day(s) Nov, Not-Taking/PRN pioglitazone 15 mg oral tablet (15 sources) Peroxisome Proliferator Receptor alpha Agonist, Peroxisome Proliferator Receptor gamma Agonist, Thiazolidinedione Start: 09-21-2022 take 1 tablet by mouth every twenty-four hours Pioglitazone HCl 15 MG 1 tablet Orally Once a day for 30 days Sep, Not-Taking/PRN Problems Active Problems Problem Classification Problem Date Documented Date Episodic/Chronic Coagulation and hemorrhagic disorders (11 sources) Primary thrombocytopenia; 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: [Primary thrombocytopenia, unspecified] Onset: 09-20-2018 Chronic Conditions associated with dizziness or vertigo (1 source) Dizziness and giddiness; 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: [DIZZINESS AND GIDDINESS] Onset: 07-03-2022 Episodic Diabetes mellitus with complications (20 sources) Type 2 diabetes mellitus with hyperglycemia; 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: [Type 2 diabetes mellitus] Onset: 02-10-2015 Chronic Diabetes mellitus without complication (14 sources) Diabetes mellitus; 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: [Type 2 diabetes [...] 05-09-2015 Chronic Other aftercare (1 source) Other plush dresser (current) drug therapy; 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: [OTH SENIOR CARE CURRENT DRUG THERAPY] Onset: 07-03-2022 Episodic Other aftercare (1 source) mandate retail 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 of oral hypoglycemic drugs; 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: [SENIOR CARE USE ORAL HYPOGLYCEMIC DX] Onset: 07-03-2022 Episodic Other aftercare (13 sources) Long-term current use of insulin; 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: [alf (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] Episodic Other aftercare (2 sources) alf (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 Episodic Other aftercare (2 sources) Long-term current use of drug therapy; 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: [Other fci (current) drug therapy] Episodic Other and unspecified benign neoplasm (13 sources) Tubular adenoma of colon; 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: [Tubular adenoma of colon] Episodic Other and unspecified benign neoplasm (17 sources) Benign neoplasm of colon; 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: [Benign [...] Episodic Other nutritional; endocrine; and metabolic disorders (9 sources) Body mass index 30+ - obesity; 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: [Body mass index (BMI) 31.0-31.9, adult] Chronic Other nutritional; endocrine; and metabolic disorders (8 sources) Obesity caused by energy imbalance; 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: [Other obesity due to excess calories] Chronic Other nutritional; endocrine; and metabolic disorders (2 sources) Other obesity due to excess calories Chronic Other nutritional; endocrine; and metabolic disorders (1 source) Body mass index (BMI) 31.0-31.9, adult Chronic Other nutritional; endocrine; and metabolic disorders (2 sources) Obesity; 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: [Obesity, unspecified] Onset: 12-15-2013 Chronic Other nutritional; endocrine; and metabolic disorders (1 source) Body mass index (BMI) 32.0-32.9, adult Chronic Other nutritional; endocrine; and metabolic disorders (4 sources) Overweight; 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: [Overweight] Onset: 05-09-2015 Episodic Other screening for suspected conditions (not mental disorders or infectious disease) (5 sources) Raised prostate specific antigen; 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: [Elevated prostate specific antigen [PSA]] Onset: 10-06-2021 Episodic Other upper respiratory disease (1 source) Vasomotor rhinitis; 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: [Vasomotor rhinitis] Chronic Spondylosis; intervertebral disc disorders; other back problems (20 sources) Lumbar spondylosis; 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: [Spondylosis without myelopathy or radiculopathy, lumbar region] Chronic Unclassified (1 source) CONTACT W/AND (SUSP) EXPOS COVID-19; 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: [CONTACT W/AND (SUSP) EXPOS COVID-19] Onset: 07-03-2022 Past or Other Problems Problem Classification Problem Date Documented Da te Episodic/Chronic Acute bronchitis (2 sources) Acute bronchitis; 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: [Acute bronchitis, unspecified] Onset: 07-13-2015 Episodic Esophageal disorders (5 sources) Esophageal disorders; 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: [Gastro-esophageal reflux disease [...] A1Con 2022 ADA RECOMMENDATION SEE BELOW Normal [facility] Comment on above: Result Comment: ADA RECOMMENDED LIMIT 4.0 - 6.0 ADA THERAPEUTIC TARGET < 7.0 ACTION SUGGESTED > 7.0 Performed By: #### B MP, LIPID, ALT, URIC #### [facility] [address] [address] [address] Jorge L Carey Glucose [Mass/Vol] 148 mg/dL Normal [facility] Comment on above: Performed By: #### B MP, LIPID, ALT, URIC #### [facility] [address] [place], [place] [address] Dr. Jorge L Carey HbA1c (Bld) [Mass fraction] 6.8 % Critically high 4.5-6.2 [facility] Comment on above: Performed By: #### B MP, LIPID, ALT, URIC #### [facility] [address] [address] [address] Jorge L Carey CARDIAC DANAY ADMITon 023 CK [Catalytic activity/Vol] 59 U/L Normal 39-308 [facility] Comment on above: Performed By: #### C MP, CMADM #### [facility] [address] [address] [address] Jorge L Carey CK.MB [Mass/Vol] 0.99 ng/mL Normal <=3.60 [facility] Comment on above: Performed By: #### C MP, CMADM #### [facility] [address] [address] [address] Jorge L Carey HSTROP 10.0 pg/mL Normal 4.0-76.1 [facility] Comment on above: Result Comment: CUT- OFF POINTS HAVE BEEN ESTABLISHED BASED ON THE FOURTH UNIVERSAL DEFINITIONS OF MYOCARDIAL INFARCTION. THE UPPER REFERENCE LIMIT (URL) OF TROPONIN, DEFINED THE 99TH PERCENTILE OF cTnI DISTRIBUTION IN A REFERENCE POPULATION, HAS BEEN CONFIRMED THE DECISION THRESHOLD FOR OK DIAGNOSIS. Performed By: #### C MP, CMADM #### [facility] [address] [place] [address] Dr. Jorge L Carey GARLAND 52 ng/mL Normal 16-96 [facility] Comment on above: Performed By: #### C MP, CMADM #### [facility] [address] [place] [address] Dr. Jorge L Carey CBC AUTO DIFFon 07-01-2022 BASO # 0.0 103/ul Normal 0.0-0.1 [facility] Comment on above: Performed By: #### B MP, LIPID, ALT, URIC #### [facility] [address] [address] [address] Jorge L Carey Basophils/100 WBC (Bld) 0.3 % Normal 0.2-2.0 [facility] Comment on above: Performed By: #### B MP, LIPID, ALT, URIC #### [facility] [address] [place] [address] Dr. Jogre L Carey EO # 0.1 103/ul Normal 0.0-0.7 [facility] Comment on above: Performed By: #### B MP, LIPID, ALT, URIC #### [facility] [address] [address] [address] Jorge L Carey Eosinophils/100 WBC (Bld) 0.9 % Normal 0.9-7.0 [facility] Comment on above: Performed By: #### B MP, LIPID, ALT, URIC #### [facility] [address] [place] [address] Dr. Jorge L Carey Erythrocyte distribution width (RBC) [Ratio] 11.7 % Normal 11.0-15.0 [facility] Comment on above: Performed By: #### B MP, LIPID, ALT, URIC #### [facility] [address] [place] [address] Dr. Jorge L Carey Hematocrit (Bld) [Volume fraction] 41.1 % Critically low 42.0-54.0 [facility] Comment on above: Performed By: #### B MP, LIPID, ALT, URIC #### [facility] [address] [place] [address] Dr. Jorge L Carey Hemoglobin (Bld) [Mass/Vol] 14.5 g/dL Normal 14.0-18.0 [facility] Comment on above: Performed By: #### B MP, LIPID, ALT, URIC #### [facility] [address] [place] [address] Dr. Jorge L Carey IG # 0.02 10e3/ul Normal 0.00-0.03 [facility] Comment on above: Performed By: #### B MP, LIPID, ALT, URIC #### [facility] [address] [place] [address] Dr. Jorge L Carey IG % 0.3 % Normal 0.0-0.5 [facility] Comment on above: Performed By: #### B MP, LIPID, ALT, URIC #### [facility] [address] [place] [address] Dr. Jorge L Carey LYMPH # 1.1 103/ul Critically low 1.2-3.[address] [facility] Comment on above: Performed By: #### B MP, LIPID, ALT, URIC #### [facility] [address] [place] [address] Dr. Jorge L Carey Lymphocytes/100 WBC (Bld) 16.6 % Critically low 20.5-60.0 [facility] Comment on above: Performed By: #### B MP, LIPID, ALT, URIC #### [facility] [address] [address] [address] Jorge L Carey MANUAL DIFF REQ NO Normal [facility] Comment on above: Performed By: #### B MP, LIPID, ALT, URIC #### [facility] [address] [place] [address] Dr. Jorge L Carey MCH (RBC) [Entitic mass] 30.1 pg Normal 25.9-34.0 [facility] Comment on above: Performed By: #### B MP, LIPID, ALT, URIC #### [facility] [address] [place] [address] Dr. Jorge L Carey MCHC (RBC) [Mass/Vol] 35.3 g/dL Critically high 29.9-35.2 [facility] Comment on above: Performed By: #### B MP, LIPID, ALT, URIC #### [facility] [address] [place] [address] Dr. Jorge L Carey MCV (RBC) [Entitic vol] 85.4 fL Normal 80.0-94.0 [facility] Comment on above: Performed By: #### B MP, LIPID, ALT, URIC #### [facility] [address] [place] [address] Dr. Jorge L Carey MONO # 0.4 103/ul Normal 0.3-0.8 [facility] Comment on above: Performed By: #### B MP, LIPID, ALT, URIC #### [facility] [address] [place] [address] Dr. Jorge L Carey Monocytes/100 WBC (Bld) 5.1 % Normal 1.7-12.0 [facility] Comment on above: Performed By: #### B MP, LIPID, ALT, URIC #### [facility] [address] [place] [address] Dr. Jorge L Carey NEUT # 5.3 103/ul Normal 1.4-6.5 [facility] Comment on above: Performed By: #### B MP, LIPID, ALT, URIC #### [facility] [address] [place] [address] Dr. Jorge L Carey Neutrophils/100 WBC (Bld) 76.8 % Critically high 43.0-75.0 [facility] Comment on above: Performed By: #### B MP, LIPID, ALT, URIC #### [facility] [address] [place] [address] Dr. Jorge L Carey Platelet mean volume (Bld) [Entitic vol] 12.1 fL Normal 9.5-13.5 [facility] Comment on above: Performed By: #### B MP, LIPID, ALT, URIC #### [facility] [address] [place] [address] Dr. Jorge L Carey PLT 147 103/ul Critically low 150-450 [facility] Comment on above: Performed By: #### B MP, LIPID, ALT, URIC #### [facility] [address] [place] [address] Dr. Jorge L Carey RBC 4.81 106/ul Normal 4.70-6.10 [facility] Comment on above: Performed By: #### B MP, LIPID, ALT, URIC #### [facility] [address] [place] [address] Dr. Jorge L Carey WBC 6.9 103/ul Normal 4.0-11.0 [facility] Comment on above: Performed By: #### B MP, LIPID, ALT, URIC #### [facility] [address] [place] [address] Dr[address] L [address] HEAD WO [...] MALENA LÓPEZ Date: 2022-07-01 20:24 Normal [facility] Covid-19 PCR (CVDTB)on 06-17 SARS-CoV-2 (COVID-19) RNA EDVIN+probe Ql (Unsp spec) Not detected Normal NOT DETECTED [facility] Comment on above: Result Comment: When diagnostic [...] for this test is supported by the Account Liaison of Health and Human Service's declaration that [...] used). Performed By: #### C VDTBH #### [facility] [address] [place] [address] Dr. Jorge L Carey D-DIMERon 07-01-2022 D-DIMER 0.21 mg/L FEU Normal <=0.59 [facility] Comment on above: Performed By: #### B MP, LIPID, ALT, URIC #### [facility] [address] [place], [place] [address] Dr. Jorge L Carey D-DIMER COMMENTS SEE BELOW Normal [facility] Comment on above: Result Comment: Incr [...] #### B MP, LIPID, ALT, URIC #### [facility] [address] [place] [address] Dr. Jorge L Carey ER URINE PROFILEon 3 Bilirubin Ql (U) Negative Normal NEGATIVE [facility] Comment on above: Performed By: #### B MP, LIPID, ALT, URIC #### [facility] [address] [place] [address] Dr. Jorge L Carey Clarity (U) CLEAR Normal CLEAR [facility] Comment on above: Performed By: #### B MP, LIPID, ALT, URIC #### [facility] [address] [place] [address] Dr. Jorge L Carey Color (U) LT. YELLOW Normal YELLOW [facility] Comment on above: Performed By: #### B MP, LIPID, ALT, URIC #### [facility] [address] [place] [address] Dr. Jorge L HERNANDEZ A micrscopic examination will be performed if indicated. Normal [facility] Comment on above: Performed By: #### B MP, LIPID, ALT, URIC #### [facility] [address] [place] [address] Dr. Jorge L Carey Glucose Ql (U) Negative Normal NEGATIVE [facility] Comment on above: Performed By: #### B MP, LIPID, ALT, URIC #### [facility] [address] [place] [address] Dr. Jorge L Carey Hemoglobin Ql (U) Negative Normal NEGATIVE [facility] Comment on above: Performed By: #### B MP, LIPID, ALT, URIC #### [facility] [address] [place] [address] Dr. Jorge L Carey Ketones Ql (U) Negative Normal NEGATIVE [facility] Comment on above: Performed By: #### B MP, LIPID, ALT, URIC #### [facility] [address] [address] [address] Jorge L Carey LEUKOCYTES Negative Normal NEGATIVE [facility] Comment on above: Performed By: #### B MP, LIPID, ALT, URIC #### [facility] [address] [address] [address] Jorge L Carey Nitrite Ql (U) Negative Normal NEGATIVE [facility] Comment on above: Performed By: #### B MP, LIPID, ALT, URIC #### [facility] [address] [address] [address] Jorge L Carey pH (U) 6.0 [pH] Normal 5-9 [facility] Comment on above: Performed By: #### B MP, LIPID, ALT, URIC #### [facility] [address] [address] [address] Jorge L Carey SPEC GRAVITY 1.020 Normal 1.005-<=1.025 [facility] [place] [facility] Comment on above: Performed By: #### B MP, LIPID, ALT, URIC #### [facility] [address] [address] [address] Jorge L Carey UA PROTEIN Negative Normal NEGATIVE/ TRACE [facility] Comment on above: Performed By: #### B MP, LIPID, ALT, URIC #### [facility] [address] [address] [address] Jorge L Carey UR MICRO IND NOT INDICATED Normal [facility] Comment on above: Performed By: #### B MP, LIPID, ALT, URIC #### [facility] [address] [address] [address] Jorge L Carey Urobilinogen Qn (U) 1.0 {Ila'U}/dL Normal 0.2 - 1. 0 [facility] Comment on above: Performed By: #### B MP, LIPID, ALT, URIC #### [facility] [address] [place] [address] Dr. Jorge L Carey INFLUENZA A AND B AGon 07-01 INFLUANEGH SEE BELOW Normal [facility] Comment on above: Result Comment: Nega tive for Flu A protein angiten. Infection due to Flu A cannot be ruled out. Flu A angiten in the sample may be below the detection limit of the test. Performed By: #### I NFLUAB #### [facility] [address] [place] [address] Dr. Jorge L Carey [facility] SEE BELOW [facility] Comment on above: Result Comment: Nega tive for Flu B protein antigen. Infection due to Flu B cannot be ruled out. Flu B antigen in the sample may be below the detection limit of the test. Performed By: #### I NFLUAB #### [facility] [address] [place] [address] Dr. Jorge L Carey INFLUENZA A AG Negative Normal NEGATIVE SEE COMMENT [facility] Comment on above: Performed By: #### I NFLUAB #### [facility] [address] [place] [address] Dr. Jorge L Carey INFLUENZA B AG Negative Normal NEGATIVE SEE COMMENT [facility] Comment on above: Performed By: #### I NFLUAB #### [facility] [address] [place] [address] Dr. Jorge L [facility] POINT OF CARE GLUCOSEon 06-17 Glucose [Mass/Vol] 130 mg/dL Critically high 74-106 [facility] Comment on above: Performed By: #### B MP, LIPID, ALT, URIC #### [facility] [address] [place] [address] Dr. Jorge L Carey PROF 14(COMP METB)on 023 Albumin [Mass/Vol] 3.7 g/dL Normal 3.4-5.0 [facility] Comment on above: Performed By: #### C IGGY, CMADM #### [facility] [address] [place] [address] Dr. Jorge L Carey Albumin/Globulin [Mass ratio] 1.2 {ratio} Normal [facility] Comment on above: Performed By: #### C IGGY, CMADM #### [facility] [address] [place] [address] Dr. Jorge L Carey ALP [Catalytic activity/Vol] 49 U/L Normal 46-116 [facility] Comment on above: Performed By: #### C MP, CMADM #### [facility] [address] [address] [address] Jorge L Carey ALT [Catalytic activity/Vol] 30 U/L Normal 16-63 [facility] Comment on above: Performed By: #### C MP, CMADM #### [facility] [address] [address] [address] Jorge L Carey Anion gap [Moles/Vol] 12.7 mmol/L Normal [facility] Comment on above: Performed By: #### C MP, CMADM #### [facility] [address] [address] [address] Jorge L Carey AST [Catalytic activity/Vol] 21 U/L Normal 15-37 [facility] Comment on above: Performed By: #### C IGGY, CMADM #### [facility] [address] [address] [address] Jorge L Carey Bilirubin [Mass/Vol] 0.5 mg/dL Normal 0.2-1.0 [facility] Comment on above: Performed By: #### C IGGY, CMADM #### [facility] [address] [address] [address] Jorge L Carey Calcium [Mass/Vol] 8.9 mg/dL Normal 8.5-10.1 [facility] Comment on above: Performed By: #### C IGGY, CMADM #### [facility] [address] [address] [address] Jorge L Carey Chloride [Moles/Vol] 100 mmol/L Normal 98-107 [facility] Comment on above: Performed By: #### C IGGY, CMADM #### [facility] [address] [address] [address] Jorge L Carey CO2 [Moles/Vol] 29.0 mmol/L Normal 21.0-32.0 [facility] Comment on above: Performed By: #### C IGGY, CMADM #### [facility] [address] [address] [address] Jorge L Carey Creatinine [Mass/Vol] 1.04 mg/dL Normal 0.70-1.30 [facility] Comment on above: Performed By: #### C MP, CMADM #### [facility] [address] [address] [address] Jorge L Carey EGFR-AF EMIRATI >60 Normal >=60 [facility] Comment on above: Performed By: #### C MP, CMADM #### [facility] [address] [address] [address] Jorge L Carey EGFR-NON AF EMIRATI >60 Normal >=60 [facility] Comment on above: Performed By: #### C MP, CMADM #### [facility] [address] [address] [address] Jorge L Carey Globulin (S) [Mass/Vol] 3.1 g/dL Normal [facility] Comment on above: Performed By: #### C MP, CMADM #### [facility] [address] [address] [address] Jorge L Carey Glucose [Mass/Vol] 140 mg/dL Critically high 74-106 [facility] Comment on above: Performed By: #### C MP, CMADM #### [facility] [address] [address] [address] Jorge L Carey Potassium [Moles/Vol] 3.7 mmol/L Normal 3.5-5.1 [facility] Comment on above: Performed By: #### C MP, CMADM #### [facility] [address] [address] [address] Jorge L Carey Protein [Mass/Vol] 6.8 g/dL Normal 6.4-8.2 [facility] Comment on above: Performed By: #### C MP, CMADM #### [facility] [address] [address] [address] Jorge L Carey Sodium [Moles/Vol] 138 mmol/L Normal 136-145 [facility] Comment on above: Performed By: #### C MP, CMADM #### [facility] [address] [address] [address] Jorge L Carey Urea nitrogen [Mass/Vol] 13.0 mg/dL Normal 7.0-18.0 [facility] Comment on above: Performed By: #### C MP, CMADM #### [facility] [address] [place] [address] Dr. Jorge L Carey Urea nitrogen/Creatinine [Mass ratio] 12.5 mg/mg Normal [facility] Comment on above: Performed By: #### C MP, CMADM #### [facility] [address] [place] [address] Dr. Jorge L Carey TROPONIN, HIGH SENSITIVITYon 07-01-2022 HSTROP 10.9 pg/mL Normal 4.0-76.1 [facility] Comment on above: Result Comment: CUT- OFF POINTS HAVE BEEN ESTABLISHED BASED ON THE FOURTH UNIVERSAL DEFINITIONS OF MYOCARDIAL INFARCTION. THE UPPER REFERENCE LIMIT (URL) OF TROPONIN, DEFINED THE 99TH PERCENTILE OF cTnI DISTRIBUTION IN A REFERENCE POPULATION, HAS BEEN CONFIRMED THE DECISION THRESHOLD FOR OK DIAGNOSIS. Performed By: #### B MP, LIPID, ALT, URIC #### [facility] [address] [place] [address] Dr. Jorge L Carey XR CHEST 1 [...] [employer]ERS Date: 2022-07-01 19:57 Normal [facility] CBC AUTO DIFFon 04-18-2022 BASO # 0.0 103/ul Normal 0.0-0.1 [facility] Comment on above: Performed By: #### C BC #### [facility] [address] [place] [address] Dr. Jorge L Carey Basophils/100 WBC (Bld) 0.7 % Normal 0.2-2.0 [facility] Comment on above: Performed By: #### C BC #### [facility] [address] [place] [address] Dr. Jorge L Carey EO # 0.2 103/ul Normal 0.0-0.7 [facility] Comment on above: Performed By: #### C BC #### [facility] [address] [place] [address] Dr. Jorge L Carey Eosinophils/100 WBC (Bld) 2.6 % Normal 0.9-7.0 [facility] Comment on above: Performed By: #### C BC #### [facility] [address] [place] [address] Dr. Jorge L Carey Erythrocyte distribution width (RBC) [Ratio] 11.5 % Normal 11.0-15.0 [facility] Comment on above: Performed By: #### C BC #### [facility] [address] [place] [address] Dr. Jorge L Carey Hematocrit (Bld) [Volume fraction] 44.7 % Normal 42.0-54.0 [facility] Comment on above: Performed By: #### C BC #### [facility] [address] [place] [address] Dr. Jorge L Carey Hemoglobin (Bld) [Mass/Vol] 15.5 g/dL Normal 14.0-18.0 [facility] Comment on above: Performed By: #### C BC #### [facility] [address] [place] [address] Dr. Jorge L Carey IG # 0.01 10e3/ul Normal 0.00-0.03 [facility] Comment on above: Performed By: #### C BC #### [facility] [address] [place] [address] Dr. Jorge L Carey IG % 0.2 % Normal 0.0-0.5 [facility] Comment on above: Performed By: #### C BC #### [facility] [address] [place] [address] Dr. Jorge L Carey LYMPH # 1.3 103/ul Normal 1.2-3.8 [facility] Comment on above: Performed By: #### C BC #### [facility] [address] [place] [address] Dr. Jorge L Carey Lymphocytes/100 WBC (Bld) 21.3 % Normal 20.5-60.0 [facility] Comment on above: Performed By: #### C BC #### [facility] [address] [place] [address] Dr. Jorge L Carey MANUAL DIFF REQ NO Normal [facility] Comment on above: Performed By: #### C BC #### [facility] [address] [place] [address] Dr. Jorge L Carey MCH (RBC) [Entitic mass] 30.1 pg Normal 25.9-34.0 [facility] Comment on above: Performed By: #### C BC #### [facility] [address] [place] [address] Dr. Jorge L Carey MCHC (RBC) [Mass/Vol] 34.7 g/dL Normal 29.9-35.2 [facility] Comment on above: Performed By: #### C BC #### [facility] [address] [place] [address] Dr. Jorge L Carey MCV (RBC) [Entitic vol] 86.8 fL Normal 80.0-94.0 [facility] Comment on above: Performed By: #### C BC #### [facility] [address] [place] [address] Dr. Jorge L Carey MONO # 0.4 103/ul Normal 0.3-0.8 [facility] Comment on above: Performed By: #### C BC #### [facility] [address] [place] [address] Dr. Jorge L Carey Monocytes/100 WBC (Bld) 7.2 % Normal 1.7-12.0 [facility] Comment on above: Performed By: #### C BC #### [facility] [address] [place] [address] Dr. Jorge L Carey NEUT # 4.1 103/ul Normal 1.4-6.5 [facility] Comment on above: Performed By: #### C BC #### [facility] [address] [place] [address] Dr. Jorge L Carey Neutrophils/100 WBC (Bld) 68.0 % Normal 43.0-75.0 [facility] Comment on above: Performed By: #### C BC #### [facility] [address] [address] [address] Jorge L Carey Platelet mean volume (Bld) [Entitic vol] 12.0 fL Normal 9.5-13.5 [facility] Comment on above: Performed By: #### C BC #### [facility] [address] [address] [address] Jorge L Carey PLT 163 103/ul Normal 150-450 [facility] Comment on above: Performed By: #### C BC #### [facility] [address] [place] [address] Dr. Jorge L Carey RBC 5.15 106/ul Normal 4.70-6.10 [facility] Comment on above: Performed By: #### C BC #### [facility] [address] [place] [address] Dr. Jorge L Carey WBC 6.1 103/ul Normal 4.0-11.0 [facility] Comment on above: Performed By: #### C BC #### [facility] [address] [place] [address] Dr. Jorge L Carey GLYCOHEMOGLOBIN A1Con 2021 ADA RECOMMENDATION SEE BELOW Normal [facility] Comment on above: Result Comment: ADA RECOMMENDED LIMIT 4.0 - 6.0 ADA THERAPEUTIC TARGET < 7.0 ACTION SUGGESTED > 7.0 Performed By: #### B MP, LIPID, ALT, URIC #### [facility] [address] [place] [address] Dr. Jorge L Carey Glucose [Mass/Vol] 146 mg/dL Normal [facility] Comment on above: Performed By: #### B MP, LIPID, ALT, URIC #### [facility] [address] [place] [address] Dr. Jorge L Carey HbA1c (Bld) [Mass fraction] 6.7 % Critically high 4.5-6.2 [facility] Comment on above: Performed By: #### B MP, LIPID, ALT, URIC #### [facility] [address] [place] [address] Dr. Jorge L Carey LIPID PROFILEon 04-18-2022 CHOL-HDL RATIO NORM SEE BELOW Normal [facility] Comment on above: Result Comment: 3.3 - 4.4 LOW RISK 4.4 - 7.1 AVERAGE RISK 7.1 - 11.0 MODERATE RISK >11.0 HIGH RISK Performed By: #### B MP, LIPID, ALT, URIC #### [facility] [address] [address] [address] Jorge L Carey Cholesterol [Mass/Vol] 117 mg/dL Normal <=200 [facility] Comment on above: Performed By: #### B MP, LIPID, ALT, URIC #### [facility] [address] [address] [address] Jorge L Carey Cholesterol in HDL [Mass/Vol] 48 mg/dL Normal 40-60 [facility] Comment on above: Performed By: #### B MP, LIPID, ALT, URIC #### [facility] [address] [place] [address] Dr. Jorge L Carey Cholesterol in LDL [Mass/Vol] 50.6 mg/dL Normal [facility] Comment on above: Performed By: #### B MP, LIPID, ALT, URIC #### [facility] [address] [address] [address] Jorge L Carey Cholesterol.total/Ch olesterol in HDL [Mass ratio] 2.4 {ratio} Normal [facility] Comment on above: Performed By: #### B MP, LIPID, ALT, URIC #### [facility] [address] [address] [address] Jorge L Carey HDL NORMAL > or = 60 mg/dl - LO W CARDIOVASCULAR RISK <40 mg/dl - HIGH CARDIOVASCULAR RISK Normal [facility] Comment on above: Performed By: #### B MP, LIPID, ALT, URIC #### [facility] [address] [place] [address] Dr. Jorge L Carey LDL CALC NORMAL SEE BELOW Normal [facility] Comment on above: Result Comment: <100 mg/dl OPTIMAL 100 - 129 mg/dl NEAR OR ABOVE OPTIMAL 130 - 159 mg/dl BORDERLINE HIGH 160 - 189 mg/dl HIGH >190 mg/dl VERY HIGH Performed By: #### B MP, LIPID, ALT, URIC #### [facility] [address] [place] [address] Dr. Jorge L Carey Triglyceride [Mass/Vol] 92 mg/dL Normal <=150 [facility] Comment on above: Performed By: #### B MP, LIPID, ALT, URIC #### [facility] [address] [address] [address] Jorge L Carey VLDL CALC 18.4 mg/dL Normal [facility] Comment on above: Performed By: #### B MP, LIPID, ALT, URIC #### [facility] [address] [address] [address] Jorge L Carey MICROALBUMIN, RAND URon 11-0 mALB <1.3 Normal <=30.0 [facility] Comment on above: Performed By: #### M ALBR #### [facility] [address] [place] [address] Dr. Jorge L Carey PROF CHEM 8 (BAS METB)on Anion gap [Moles/Vol] 9.5 mmol/L Normal [facility] Comment on above: Performed By: #### B MP, LIPID, ALT, URIC #### [facility] [address] [place] [address] Dr. Jorge L Carey Calcium [Mass/Vol] 8.6 mg/dL Normal 8.5-10.1 [facility] Comment on above: Performed By: #### B MP, LIPID, ALT, URIC #### [facility] [address] [address] [address] Jorge L Carey Chloride [Moles/Vol] 102 mmol/L Normal 98-107 [facility] Comment on above: Performed By: #### B MP, LIPID, ALT, URIC #### [facility] [address] [place] [address] Dr. Jorge L Carey CO2 [Moles/Vol] 30.8 mmol/L Normal 21.0-32.0 [facility] Comment on above: Performed By: #### B MP, LIPID, ALT, URIC #### [facility] [address] [place] [address] Dr. Jorge L Carey Creatinine [Mass/Vol] 0.95 mg/dL Normal 0.70-1.30 [facility] Comment on above: Performed By: #### B MP, LIPID, ALT, URIC #### [facility] [address] [address] [address] Jorge L Carey EGFR-AF EMIRATI >60 Normal >=60 [facility] Comment on above: Performed By: #### B MP, LIPID, ALT, URIC #### [facility] [address] [address] [address] Jorge L Carey EGFR-NON AF EMIRATI >60 Normal >=60 [facility] Comment on above: Performed By: #### B MP, LIPID, ALT, URIC #### [facility] [address] [address] [address] Jorge L Carey Glucose [Mass/Vol] 142 mg/dL Critically high 74-106 [facility] Comment on above: Performed By: #### B MP, LIPID, ALT, URIC #### [facility] [address] [address] [address] Jorge L Carey Potassium [Moles/Vol] 4.3 mmol/L Normal 3.5-5.1 [facility] Comment on above: Performed By: #### B MP, LIPID, ALT, URIC #### [facility] [address] [address] [address] Jorge L Carey Sodium [Moles/Vol] 138 mmol/L Normal 136-145 [facility] Comment on above: Performed By: #### B MP, LIPID, ALT, URIC #### [facility] [address] [address] [address] Jorge L Carey Urea nitrogen [Mass/Vol] 14.0 mg/dL Normal 7.0-18.0 [facility] Comment on above: Performed By: #### B MP, LIPID, ALT, URIC #### [facility] [address] [address] [address] Jorge L Carye Urea nitrogen/Creatinine [Mass ratio] 14.7 mg/mg Normal [facility] Comment on above: Performed By: #### B MP, LIPID, ALT, URIC #### [facility] [address] [address] [address] Jorge L Carey SGPTon 04-18-2022 ALT [Catalytic activity/Vol] 27 U/L Normal 16-63 [facility] Comment on above: Performed By: #### B MP, LIPID, ALT, URIC #### [facility] [address] [address] [address] Jorge L Carey URIC ACID SERUMon 04-18-2022 Urate [Mass/Vol] 5.5 mg/dL Normal 3.5-7.2 [facility] Comment on above: Performed By: #### B MP, LIPID, ALT, URIC #### [facility] [address] [address] [address] Jorge L Carey GLYCOHEMOGLOBIN A1Con 2021 ADA RECOMMENDATION SEE BELOW Normal [facility] Comment on above: Result Comment: ADA RECOMMENDED LIMIT 4.0 - 6.0 ADA THERAPEUTIC TARGET < 7.0 ACTION SUGGESTED > 7.0 Performed By: #### B MP, LIPID, ALT, URIC #### [facility] [address] [address] [address] Jorge L Carey Glucose [Mass/Vol] 160 mg/dL Normal [facility] Comment on above: Performed By: #### B MP, LIPID, ALT, URIC #### [facility] [address] [address] [address] Jorge L Carey HbA1c (Bld) [Mass fraction] 7.2 % Critically high 4.5-6.2 [facility] Comment on above: Performed By: #### B MP, LIPID, ALT, URIC #### [facility] [address] [address] [address] Jorge L Carey Ambulatory Visit Summaryon 0 10-06-2021 Ambulatory Visit Summary FELIPE QUAN :1955 Visit Date:10/06/2021 Ambulatory Visit Instructions Your Diagnosis BPH with urinary obstruction Elevated PSA Tests Performed Urnls Dip Stick Auto w/o Microscopy POC [id number] Your Care Team Attending Physician - JOSE MCMANUS, Hola Rushing Primary Care Physician - BOGDAN GREEN DO [...] Follow-Up Appointments Saturday 8:00 AM EDT With: JOSE MCMANUS, Hola Rushing Where: [facility] Patient Educationon 10-07-19 Patient Education Urology [...] Follow these instructions at home: ? Take qxbl-idy-fymvafs and prescription medicines only as told by [...] You d (more content not included)... Normal [facility] Urology Office/Clinic Noteon 10-06-2021 Urology Office/Clinic [...] year 10/06/2022 EDT [facility] [address] [place] [address]- [phone] Additional Instructions: PSA Patient Education Benign Prostatic Hyperplasia I, Ciarra Mckeon, personally scribed for Dr. Ambriz on 10/06/2021 08:37:45. . Documentation recorded by the scribsony, Ciarra Mckeon, accurately reflects the services(s) I [...] (10/06/21 08:08:00) (more content not included)... Normal [facility] Comment on above: Result Comment: Elec tronically Signed By: Hola AMBRIZ MD\.br\Date and Time Signed: 10/06/21 08:39 EDT\.br\Electronically Co-Signed By: Ciarra Mckeon MA\.br\Date and Time Co-Signed: 10/06/21 08:38 EDT Lab Reportson 09-19-2021 Lab Reports [id number] D:127 Normal [facility] GLYCOHEMOGLOBIN A1Con 2021 ADA RECOMMENDATION ADA THERAPEUTIC TARG ET 6.0 - 7.0 ACTION SUGGESTED > 7.0 Normal [facility] Comment on above: Performed By: #### B MP, LIPID, ALT, URIC #### [facility] [address] [address] [address] Jorge L Carey Glucose [Mass/Vol] 177 mg/dL Normal [facility] Comment on above: Performed By: #### B MP, LIPID, ALT, URIC #### [facility] [address] [address] [address] Jorge L Carey HbA1c (Bld) [Mass fraction] 7.8 % Critically high <=6.0 [facility] Comment on above: Performed By: #### B MP, LIPID, ALT, URIC #### [facility] [address] [address] [address] Jorge L Carey Outreach [facility] 09-17-2020 Glucose [Mass/Vol] 151 mg/dL Normal [facility] Comment on above: Result Comment: PERF ORMED BY: [place] [address] PATHOLOGIST LYE TREATER SUSAN SEXTON M.D. Performed By: #### O MOE GLYCO #### [place] [address] [facility] HbA1c (Bld) [Mass fraction] 6.9 % High 4.3-5.6 [facility] Comment on above: Result Comment: Incr eased risk for diabetes: 5.7 - 6.4 diabetes: >6.4 glycemic control for adults with diabetes: <7.0 Performed By: #### O MOE GLYCO #### [facility] [address] [id number] [facility] Vital Signs Date Time Vital Sign Value Performing Clinician Facility 07-08-2023 09:00-0500 Body height 190.5 cm Bogdan Ball Other [facility] Other 07-08-2023 09:00-0500 Body mass index (BMI) [Ratio] 32.62 kg/m2 Bogdan Ball Other [facility] Other 07-08-2023 09:00-0500 Body weight 118.39 kg Bogdan Ball Other [facility] Other 07-08-2023 09:00-0500 Diastolic blood pressure 81 mm[Hg] Bogdan Ball Other [facility] Other 07-08-2023 09:00-0500 Respiratory rate 12 /min Bogdan Ball Other [facility] Other 07-08-2023 09:00-0500 Systolic blood pressure 117 mm[Hg] Bogdan Ball Other [facility] Other 05-01-2023 08:30-0500 Body height 190.5 cm Bogdan Ball Other [facility] Other 05-01-2023 08:30-0500 Body mass index (BMI) [Ratio] 32.19 kg/m2 Bogdan Ball Other [facility] Other 05-01-2023 08:30-0500 Body weight 116.85 kg Bogdan Ball Other [facility] Other 05-01-2023 08:30-0500 Diastolic blood pressure 81 mm[Hg] Bogdan Ball Other [facility] Other 05-01-2023 08:30-0500 Respiratory rate 12 /min Bogdan Ball Other [facility] Other 05-01-2023 08:30-0500 Systolic blood pressure 135 mm[Hg] Bogdan Ball Other [facility] Other 12-26-2022 08:30-0400 Body height 190.5 cm Bogdan Ball Other [facility] Other 12-26-2022 08:30-0400 Body mass index (BMI) [Ratio] 31.54 kg/m2 Bogdan Ball Other [facility] Other 12-26-2022 08:30-0400 Body weight 114.49 kg Bogdan Ball Other [facility] Other 12-26-2022 08:30-0400 Diastolic blood pressure 85 mm[Hg] Bogdan Ball Other [facility] Other 12-26-2022 08:30-0400 Respiratory rate 12 /min Bogdan Ball Other [facility] Other 12-26-2022 08:30-0400 Systolic blood pressure 139 mm[Hg] Bogdan Ball Other [facility] Other 11-09-2022 10:58-0400 Blood Pressure Location Hola AMBRIZ [facility] 11-09-2022 10:58-0400 Diastolic blood pressure 80 mm[Hg] Hola AMBRIZ [facility] 11-09-2022 10:58-0400 Heart rate 78 /min Hola AMBRIZ [facility] 11-09-2022 10:58-0400 Respiratory rate 16 /min Hola AMBRIZ [facility] 11-09-2022 10:58-0400 Systolic blood pressure 130 mm[Hg] Hola AMBRIZ [facility] 10-05-2022 12:15-0400 Body height 190.5 cm Bogdan Ball Other [email or web address] [facility] [employer] Other 10-05-2022 12:15-0400 Body mass index (BMI) [Ratio] 31.17 kg/m2 Bogdan Ball Other [email or web address] [facility] [employer] Other 10-05-2022 12:15-0400 Body weight 113.13 kg Bogdan Ball Other [employer] Other 10-05-2022 12:15-0400 Diastolic blood pressure 95 mm[Hg] Bogdan Ball Other [email or web address] [facility] [employer] Other 10-05-2022 12:15-0400 Respiratory rate 12 /min Bogdan Ball Other [employer] Other 10-05-2022 12:15-0400 Systolic blood pressure 168 mm[Hg] Bogdan Ball Other [employer] Other 08-23-2022 08:30-0500 Body height 190.5 cm Bogdan Ball Other [employer] Other 08-23-2022 08:30-0500 Body mass index (BMI) [Ratio] 31.42 kg/m2 Bogdan Ball Other [employer] Other 08-23-2022 08:30-0500 Body weight 114.04 kg Bogdan Ball Other [employer] Other 08-23-2022 08:30-0500 Diastolic blood pressure 86 mm[Hg] Bogdan Ball Other [employer] Other 08-23-2022 08:30-0500 Respiratory rate 12 /min Bogdan Ball Other [employer] Other 08-23-2022 08:30-0500 Systolic blood pressure 132 mm[Hg] Bogdan Ball Other [employer] Other 10-06-2021 08:14-0400 Blood Pressure Location Hola [employer] [facility] [place] 10-06-2021 08:14-0400 Diastolic blood pressure 98 mm[Hg] Hola [employer] [facility] [employer] 10-06-2021 08:14-0400 Heart rate 78 /min Hola [employer] [facility] [employer] 10-06-2021 08:14-0400 Systolic blood pressure 145 mm[Hg] Hola AMBRIZ [facility] [place] Encounters Encounter Date Encounter Type Care Provider Facility Start: 07-08-2023 End: 07-08-2023 ambulatory Bogdan Ball Other [employer] Other Start: 07-08-2023 Office outpatient vi sit 25 minutes Bogdan Ball [facility] Start: 06-24-2023 End: 06-25-2023 ambulatory Dm Cyr MD Facility: [facility] Start: 05-20-2023 End: 05-21-2023 ambulatory Dm Cyr MD Facility: [facility] Start: 05-10-2023 End: 05-10-2023 ambulatory Bogdan Green Other [employer] Other Start: 05-10-2023 Office outpatient vi sit 15 minutes Bogdan Ball [facility] Start: 05-01-2023 End: 05-01-2023 ambulatory Bogdan Green Other [employer] Other Start: 05-01-2023 Patient encounter procedure Bogdan Ball [facility] Start: 04-24-2023 End: 04-24-2023 ambulatory Bogdan Green Other [employer] Other Start: 04-24-2023 Telephone encounter Bogdan Peter [facility] Start: 02-25-2023 End: 02-25-2023 ambulatory Bogdan Green Other [employer] Other Start: 02-25-2023 Telephone encounter Bogdan Green [facility] Start: 12-27-2022 End: 12-27-2022 ambulatory Bogdan Green Other [employer] Other Start: 12-27-2022 Telephone encounter Bogdan Ball [facility] Start: 12-26-2022 End: 12-26-2022 ambulatory Bogdan Ball Other [employer] Other Start: 12-26-2022 Office outpatient vi sit 25 minutes Bogdan Ball [facility] Start: 11-19-2022 End: 11-19-2022 ambulatory Bogdan Ball Other [employer] Other Start: 11-19-2022 Telephone encounter Bogdan Ball [facility] Start: 11-09-2022 ambulatory Hola AMBRIZ Facili ty:[facility] Start: 11-09-2022 End: 11-09-2022 Patient encounter procedure Hola AMBRIZ [facility] [place] Start: 10-22-2022 End: 10-22-2022 ambulatory Bogdan Green Other [employer] Other Start: 10-22-2022 Telephone encounter Bogdan Ball [facility] Start: 10-18-2022 End: 10-18-2022 ambulatory Bogdan Green Other [employer] Other Start: 10-18-2022 Telephone encounter Bogdan Ball [facility] Start: 10-05-2022 End: 10-05-2022 ambulatory Bogdan Peter Other [employer] Other Start: 10-05-2022 Office outpatient vi sit 15 minutes Bogdan Ball [facility] Start: 09-27-2022 End: 09-27-2022 ambulatory Bogdan Peter Other [employer] Other Start: 09-27-2022 Telephone encounter Bogdan Ball [facility] Start: 09-25-2022 End: 09-25-2022 ambulatory Bogdan Peter Other [employer] Other Start: 09-25-2022 Telephone encounter Bogdan Ball [facility] Start: 09-21-2022 End: 09-21-2022 ambulatory Bogdan Ball Other [employer] Other Start: 09-21-2022 Telephone encounter Bogdan Ball [facility] Start: 08-23-2022 End: 08-23-2022 ambulatory Bogdan Ball Other [employer] Other Start: 08-23-2022 Office outpatient vi sit 25 minutes Bogdan Green [facility] Start: 08-17-2022 End: 08-18-[address] BOGDAN GREEN Facility:[facility] Start: 08-14-2022 End: 08-14-2022 ambulatory Bogdan Green Other [employer] Other Start: 08-14-2022 Telephone encounter Bogdan Green [facility] Start: 07-01-2022 End: 07-01-[address] BOGDAN GREEN Facility:[facility] Start: 04-25-2022 Adult health examination Bogdan Green Other [employer] Other Start: 04-18-2022 End: 04-19-[address] BOGDAN GREEN Facility:[facility] Start: 01-20-2022 End: 01-21-2022 ambulatory NONE LISTED REQUEST Facility:[facility] Start: 10-06-2021 ambulatory Hola AMBRIZ Facility :[facility] Start: 10-06-2021 End: 10-07-2021 ambulatory Hola AMBRIZ Facility:[facility] Start: 10-06-2021 End: 10-06-2021 Patient encounter procedure Hola AMBRIZ [facility] Start: 09-16-2021 End: 09-17-[address] HOLA AMBRIZ . Facility:[facility] Start: 09-15-2021 End: 09-16-2021 ambulatory NONE LISTED REQUEST Facility:[facility] Start: 08-29-[address] BOGDAN GREEN Facili ty:[facility] Procedures Date Procedure Procedure Detail Performing Clinician Start: 09-16-[address] PISANO IN [place] Comment on above: Performed By: #### B MP, LIPID, ALT, URIC #### [facility] [address] [place] [address] Dr. Jorge L Carey Start: 03-29-2017 General examination of patient Bogdan Peter Other Start: 12-20-2015 Cystoscopy Hola FAITH Start: 12-15-2013 Hyperlipidemia screening Bogdan Green Other Start: 12-15-2013 Screening for malign ant neoplasm of prostate Bogdan Green Other Colonoscopy Hola AMBRIZ Depression screening Dwihgt Green Other History of hernia repair Maureen AMBRIZ Perirectal abscess (disorder) Hola AMBRIZ Screening for malign ant neoplasm of colon Bogdan Green Other Immunizations Immunization Date Immunization Notes Care Provider [facility] 04-29-2023 zoster vaccine recombinant Bogdan Green Other [employer] Other 04-26-2023 influenza, high dose seasonal, preservative-free Bogdan Green Other [employer] Other 02-26-2023 zoster vaccine recombinant Bogdan Green Other [employer] Other 04-25-2022 pneumococcal 20-alber nt conjugate vaccine Hola AMBRIZ [facility] 04-16-2022 influenza virus vaccine, split virus (incl. purified surface antigen) Bogdan Green Other [employer] Other 04-16-2022 influenza virus vaccine, unspecified formulation Hola AMBRIZ [facility] 03-23-2022 SARS-CoV-2 (COVID-19 ) [id number] Hola AMBRIZ [facility] 05-08-2021 SARS-CoV-2 (COVID-19 ) mRNA BNT-162b2 vax Hola AMBRIZ [facility] 04-22-2021 influenza virus vaccine, split virus (incl. purified surface antigen) Bogdan Green Other [employer] Other 04-22-2021 influenza virus vaccine, unspecified formulation Hola AMBRIZ [facility] 03-30-2021 influenza virus vaccine, unspecified formulation Hola AMBRIZ [facility] 09-16-2020 COVID-19, mRNA, LNP- S, PF, 30 mcg/0.3 mL dose; 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: [Pfizer-BioNTech COVID-19 Vaccine] Hola AMBRIZ [facility] Comment on above: Reason for Medicatio n: Prophylaxis 08-26-2020 COVID-19, mRNA, LNP- S, PF, 30 mcg/0.3 mL dose; 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: [Pfizer-BioNTech COVID-19 Vaccine] Hola AMBRIZ [facility] Comment on above: Reason for Medicatio n: Prophylaxis 04-16-2020 influenza virus vaccine, split virus (incl. purified surface antigen) Bogdan Green Other [employer] Other 04-16-2020 influenza virus vaccine, unspecified formulation Hola AMBRIZ [facility] pneumococcal Conjuga te, unspecified formulation; 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: [Need for prophylactic vaccination against Streptococcus pneumoniae (pneumococcus)] Bogdan Green Other [employer] Other Payers Date Payer Category Payer Medicare 2022 Unknown 2021 Medicare [id number] 2020 Unknown [id number] 1959 Medicare [id number] 1959 Self-pay [id number] 1959 Unknown [id number] 1959 Unknown [id number] 1956 Unknown [id number] 2.16.84 [id number] 1956 Unknown [id number] 2.16.84 [id number] 1956 Unknown [id number] 2.16.84 [id number] 1956 Unknown [id number] 2.16.84 0.1.332430.3.579.2.593 1956 Unknown [id number] 2.16.84 [id number] 1956 Unknown [id number] 2.16.8 40.1.271018.3.579.2.727 1956 Unknown [id number] 2.16.8 40.1.026355.3.579.2.727 1956 Unknown [id number] 2.16. [id number] 1956 Unknown [id number] 2.16. [id number] Blue Cross Blue Shield [id number] [id number] Unknown [id number] 2.16.84 [id number] Unknown [id number] 2.16.84 [id number] Social History Date Type Detail Facility Start: 10-06-2021 End: 11-09-2022 Tobacco smoking status Never smoked tobacco (finding) [facility] Sex Assigned At Male [facility] Tobacco smoking status Never [facility] Functional Status Date Assessment Result Facility 11-09-2022 Functional Status N/A [facility] Clinical Notes 10-06-2021 to 07-08-2023 Note Date & Type Note Facility 07-08-2023 Evaluation note Encounter Date Diagnosis Assessment Notes Jun, Type 2 diabetes mellitus with hyperglycemia, without [...] Microalbumin, Dilated eye exam and Foot exam Making changes in treatment an postponing A1C Need improved glucose control Plan to decrease and hopefully d/c CIFUENTES Plan to continue basal insulin and add GLP-1i Jun, Primary hypertension (ICD-10 - I10) This patient is instructed to consume a healthy, low-fat, low-salt diet. They are also encouraged to continue exercise to achieve/maintain a normal BMI. Patient is instructed on home BP measurements: - rest for 5 minutes w/o talking.- positioned w/ feet on floor and arm supported.- average best 2/3 readings w/ goal < 135/85.- update office w/ home readings in 2 weeks. Jun, Elevated cholesterol (ICD-10 - E78.00) Instructed on diet and exercise with continued statin therapy.Discussed the beneficial effects of lowering cholesterol in reducing the risk for cerebrovascular and cardiovascular disease. Jun, Spondylosis without myelopathy or radiculopathy, lumbar region (ICD-10 - M47.816) The patient is instructed to avoid bending, twisting or lifting. They are to use intermittent heat and ice as needed. They may schedule a massage or gentle manipulation. They may safely use Tylenol as needed. Reviewed pain management treatment - completed localizing injections w/ some benefit - planning ablation in near future Completed PT No improvement w/ injections would schedule MRI Jun, Gastro-esophage al reflux disease with esophagitis, without bleeding (ICD-10 - K21.00) Avoid lying flat after eating. Avoid eating 2 hours prior to bedtime. Smaller, frequent meals may be better tolerated.Weight loss if overweight.PPI with any heartburn.Monitor for dysphagia. Jun, Other obesity due to excess calories (ICD-10 - E66.09) Jun, Body mass index [BMI] 32.0-32.9, adult (ICD-10 - Z68.32) [employer] Other 11-24-2023 Evaluation note* Encounter Date Diagnosis Assessment Notes Treatment Notes Treatment Clinical Notes Apr, COVID-19 (ICD-10 - U07.1) Instructed [...] Microalbumin, Dilated eye exam and Foot exam [employer] Other 11-15-2023 Evaluation note* Encounter Date Diagnosis [...] flares Sep, Thrombocytopenia, unspecified (ICD-10 - D69.6) [employer] Other 11-15-2023 Evaluation note* Encounter Date Diagnosis [...] flares Sep, Thrombocytopenia, unspecified (ICD-10 - D69.6) [employer] Other 11-08-2023 Evaluation note* Encounter Date Diagnosis Assessment Notes Treatment Notes Treatment Clinical Notes Apr, Screening PSA (prostate specific antigen) (ICD-10 - Z12.5) Apr, Type 2 diabetes mellitus with hyperglycemia, without long-term current use of insulin (ICD-10 - E11.65) Apr, Elevated cholesterol (ICD-10 - E78.00) Apr, Primary hypertension (ICD-10 - I10) Sep, Thrombocytopenia, unspecified (ICD-10 - D69.6) Thrombocytopenia [employer] Other 07-12-2023 Evaluation note* Encounter Date Diagnosis [...] [BMI] 31.0-31.9, adult (ICD-10 - Z68.31) Dec, alf (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 (ICD-10 - Z79.4) [employer] Other 05-26-2023 Hospital Discharge instructions Patient Education [...] treatment? Where to find more information [employer] [employer]: www.cancer.org [employer]: www.auanet.org Contact a health care [...] provider. Document Revised: 11/27/2021 Document Reviewed: 11/27/2021 [employer] Patient Education 2022 [employer]. Follow Up Care 10/06/2021 08:40:21 With:JOSE MCMANUS, Hola Rushing, URL Address: [facility] [address] , [place] [address]- When: Unknown [facility] 05-08-2023 Evaluation note* Encounter Date Diagnosis Assessment Notes Treatment Notes Treatment Clinical Notes October, Primary hypertension (ICD-10 - I10) [employer] Other 05-04-2023 Evaluation note* Encounter Date Diagnosis Assessment Notes Treatment Notes Treatment Clinical Notes October, Primary hypertension (ICD-10 - I10) [employer] Other 04-21-2023 Evaluation note* Encounter Date Diagnosis [...] and Glimepiride appear to be controlling BS. 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) [employer] Other 04-11-2023 Evaluation note* Encounter Date Diagnosis Assessment Notes Treatment Notes Treatment Clinical Notes Sep, Type 2 diabetes mellitus with hyperglycemia, without long-term current use of insulin (ICD-10 - E11.65) [employer] Other 04-07-2023 Evaluation note* Encounter Date Diagnosis Assessment Notes Treatment Notes Treatment Clinical Notes Sep, Type 2 diabetes mellitus with hyperglycemia (ICD-10 - E11.65) [employer] Other 03-09-2023 Evaluation note* Encounter Date Diagnosis [...] Reviewed red flag symptoms and nerve impingement [employer] Other 02-28-2023 Evaluation note* Encounter Date Diagnosis Assessment Notes Treatment Notes Treatment Clinical Notes Jul, Type 2 diabetes mellitus with hyperglycemia, without long-term current use of insulin (ICD-10 - E11.65) [employer] Other 04-22-2022 Hospital Discharge instructions Patient Education [...] urethra. Follow these instructions at home: Take nmeh-tjt-ykswycu and prescription medicines only as told by [...] 06/03/2006 Document Revised: 04/28/2019 Document Reviewed: 07/08/2017 [employer] Patient Education [employer]. Follow Up Care 10/03/2020 15:00:49 With:JOSE MCMANUS, Hola Rushing, URL Address: [facility] [address], [place] [address]- [phone] When:10/06/2022 [facility] evaluation + Plan note Future Appointments Appointment Date:10/12/2022 08:00:00 AM Scheduled Provider:Hola AMBRIZ MD Location:[facility] Appointment Type:URO Office Visit Diagnostic Tests Pending * PSA Total 10/06/21 [facility] evaluation + Plan note Future Appointments Appointment Date:11/18/2023 08:45:00 AM Scheduled Provider:Hola AMBRIZ MD Location:[facility] Appointment Type:URO Office Visit Diagnostic Tests Pending * PSA Free & Total 11/09/22 [facility] evaluation noteNortQazzow Other Evaluation noteNo InformationNort [employer] Other History general Narrative - Reported* Type Description Date [...] CYSTOSCOPY 2016 Hospitalization History SEE SURGICAL HX [employer] Other History general Narrative - ReportedNoQazzow Other History general Narrative - Reported* Type Description Date [...] CYSTOSCOPY 2016 Hospitalization History SEE SURGICAL HX [employer] Other Hospital course Narrative No data available for this section [facility] progress note No data available for this section [facility] Summary Purpose Family History No Family [...] well ness visit, initial (Z00.00) Referral Organization [facility] jono Referring Provider First Name Bogdan Referring Provider Last Name Peter Referring Provider Specialty Internal Me dicine Referred Organization [facility] Referred Provider Swapnil French Referred Address [address] [place], [place],[address] Referred Provider Specialty Pain Medicin e Referral Priority Routine General Notes Mr. Quan has chron ic low back pain w/o [...] Notes Include XR lumbar sp ine f: [id number] Additional Source Comments (unrecognized sect ion and content) No Status Records FoundNo Status Records FoundNo Status Records FoundNo Status Records Found INFORMATION SOURCE (unrecogn ized section and content) DATE CREATED AUTHOR 07/30/2021 [facility] DATE CREATED AUTHOR AUTHOR'S ORGANIZ ATION 08/22/2022 [facility] DATE CREATED AUTHOR AUTHOR'S ORGANIZ ATION [facility]/2022 [facility] DATE CREATED AUTHOR AUTHOR'S ORGANIZ ATION 07/09/2023 [facility] REASON FOR VISIT (unrecogniz ed section and content) Elevated blood [id number] Positive[employer]ness[employer] ResultsBP readingsrefillelevated BPMedication4 MONTH FOLLOW UP Patient Care team informatio n (unrecognized section and content) Personnel Name: PETER SANTOS BOGDAN Address: Address: [address] [place], [place] [address] FOR RECORDS PERTAINING TO PATIENTS WHO ARE [...] BE BASED ON THE PRIMARY CLINICAL RECORDS. [facility] [employer] [facility]. provides no warranty or guarantee of the accuracy or completeness of information in this document.
[2023-07-15 10:42] LABS: Glucometer 218 mg/dL (74-106)
[2023-07-15 10:46] VITALS: BP 131/86; PULSE 96; RESP 16; TEMP 36.6; O2SAT 96
[2023-07-15] MEDS: LIDOCAINE HCL 2% PF 100 MG/5 ML VIAL 1 ML INJ (11:15)
[2023-07-15] MEDS: BUPIVACAINE HCL 0.25% PF 25 MG/10 ML VIAL 8 ML INJ (11:15)
[2023-07-15 11:17] VITALS: BP 147/79; PULSE 79; PULSE 83; RESP 18; O2SAT 96
--- NOTE | 2023-07-15 11:17 | W.PM.PROCNOT ---
Date of procedure: 07/15/23 Pre-op diagnosis: Lumbar spondylosis Post-op diagnosis: same as pre-op Procedure: Procedure: Bilateral L4-5, L5-S1 medial branch block Medications: Bupivacaine 0.25% 6cc The patient was seen and examined in the preoperative holding area.? An informed consent was obtained and placed on the chart.? The patient was brought to the medical procedure unit and placed in the prone position.? A timeout was completed verifying correct patient, procedure site, positioning, plan, and special equipment.? Using aseptic technique, the needle was placed at left L4. Under direct fluoroscopic visualization a Quincke-tipped spinal needle was advanced to the junction of the superior articulating process with the transverse process at the designated medial branch segment.? Preceded by negative aspiration, the above-mentioned injectate was placed in 1 mL aliquots.? The procedure was repeated at left L5, S1.? The needle was removed and insertion site was covered. The same procedure, at the same levels, was completed on the right side. The patient was taken to the postprocedural recovery area and monitored for an appropriate length of time before found suitable for discharge in the company of a responsible adult. Anesthesia: Local Surgeon: Dm Cyr Pathology: none sent Condition: stable Disposition: no change
[2023-07-15 11:18] VITALS: BP 147/81
== END 2023-07-15 11:24 | disposition home or self-care (01) ==
PROVIDERS: PCP Internal Medicine; Visit Provider Anesthesiology
DX: M47.816 Spondylosis without myelopathy or radiculopathy, lumbar region (principal); Z79.84 Long term (current) use of oral hypoglycemic drugs; Z79.4 Long term (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
CPT/HCPCS: 36415; 64493; 64494; 82948; J0665

== ENCOUNTER 2023-07-25 10:06 | Outpatient (OUT) | payer MEDICARE, BC, SELFPAY ==
--- NOTE | 2023-07-25 10:10 | P.CN_ITS ---
Consult Note: HPI Data of Consult Patient: known to practice within the last 3 years Consult date: 05/20/23 Requesting Physician: Radha Cope NP Primary Care Provider: Bogdan Green DO Family Provider: f/u Consult Narrative Reason for consult: low back pain Narrative: 67yom who presents for evaluation. worsening axial low back pain that has persisted for >1 year. underwent physical therapy in the summer and continues in a course of provider directed home exercises, which have not provided significant relief for >6 weeks >3x/week. imaging reviewed, significant for facet arthropathy in lower lumbar spine. uses otc pain meds as needed. Recently underwent bilateral L4-5 L5-S1 facet medial branch block #2 with 80% improvement in pain and functional ability immediately following and hours after. Patients goals are to ambulate further and be able to carry his granddaughter with less pain. patient has had moderate to severe intermittent right calf pain the past 1-2 weeks. cc:: CC: Radha Cope NP Review of Systems ROS Status of ROS 10 or more systems reviewed and unremark able except as noted in history and below Musculoskeletal Reports: back pain, extremity pain and joint pain PFSH PFSH Medical History History of stress test ?Z92.89 - Personal history of other medical treatment (ICD-10) Acid reflux ?K21.9 - Gastro-esophageal reflux disease without esophagitis (ICD-10) Diabetes ?E11.9 - Type 2 diabetes mellitus without complications (ICD-10) HTN (hypertension) ?I10 - Essential (primary) hypertension (ICD-10) Surgical History History of hernia repair ?Z98.890 - Other specified postprocedural states (ICD-10) ?Z87.19 - Personal history of other diseases of the digestive system (ICD-10) Meds Home Medications and Allergies Home Medications Medication Instructions Recorded Confirmed Type allopurinol 100 mg tablet 100 mg PO DAILY 06/14/23 07/15/23 History amlodipine 5 mg tablet 5 mg PO DAILY 06/14/23 07/15/23 History atorvastatin 10 mg tablet 10 mg PO DAILY 06/14/23 07/15/23 History benazepril 5 mg tablet 20 mg PO DAILY 06/14/23 07/15/23 History finasteride 5 mg tablet 5 mg PO DAILY 06/14/23 07/15/23 History glimepiride 4 mg tablet 4 mg PO DAILY 06/14/23 07/15/23 History insulin glargine 100 unit/mL (3 25 unit subcut DAILY 06/14/23 07/15/23 History mL) subcutaneous pen (Lantus Solostar U-100 Insulin) latanoprost 0.005 % eye drops 1 drp ophthalmic (eye) DAILY 06/14/23 07/15/23 History metformin 1,000 mg tablet 1,000 mg PO BID 06/14/23 07/15/23 History tamsulosin 0.4 mg capsule 0.4 mg PO Q24H 06/14/23 07/15/23 History cetirizine 10 mg capsule (All Day 10 mg PO DAILY PRN allergy symptoms 06/24/23 07/15/23 History Allergy (cetirizine)) omeprazole 10 mg capsule,delayed 10 mg PO DAILY 06/24/23 07/15/23 History release Allergies Allergy/AdvReac Type Severity Reaction Status Date / Time No Known Drug Allergies Allergy Verified 07/15/23 10:42 Exam Narrative Exam Narrative: Psych-alert and oriented x 3. Attentive and appropriate, constitutionally normal, displays normal mood and affect per situation.? There are no obvious deficits in memory, reasoning, or intellect.? Skin-no obvious rashes, bruising, erythema noted to the patient's area of pain. Extremities- extremities are warm with minimal edema and palpable pulses. Lumbar-no significant tenderness to palpation noted in the lumbar spine and paraspinal musculature.? Pain is elicited with extension, and lateral rotation of the lumbar spine. Range of motion is slightly diminished with these motions due to pain. Facet loading maneuvers are positive bilaterally and do appear to be concordant with the patient's normal complaints of pain.? Coordination remains intact.? Gait remains non-antalgic. Constitutional Documenting provider has reviewed patient's vital signs: yes Common normals: no apparent distress, oriented x3, healthy appearing, alert and well nourished General appearance: cooperative [facility] Common normals: normocephalic, hearing grossly normal bilaterally and moist oral mucous membranes Head and scalp: normocephalic Eye Common normals: PERRL Pupil: PERRL Neck & C-Spine Common normals: full ROM General: normal visual inspection Chest Common normals: inspection of chest normal Respiratory Common normals: normal respiratory effort, no retractions and no use of accessory muscles Back & Pelvis Sacroiliac joints: SI joint(s) abnormal Other: positive PSIS, 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 and gaenslens Extremity Other: positive homans right calf, no redness heat or swelling at this time, tender to touch on posterior calf Neuro Common normals: oriented x3, CN's II-XII intact bilaterally, moves all extremities, no focal motor deficits, no sensory deficits noted and deep tendon reflexes 2+ bilaterally Sensorium/orientation: alert Motor exam: strength 5/5 throughout and no movement abnormalities noted Psych Common normals: mental status grossly normal, thought process normal, cooperative, affect normal, speech normal and activity/motor behavior normal Speech: normal speech Thought process: normal thought process Results Additional Findings Additional findings: I have checked an [facility] report on this patient today and there are no aberrancies noted in the prescribing history.?? A drug screen was completed and reviewed within the last year, and if there has not been a drug screen completed we ordered one today to monitor higher risk, state monitored pain medication use. As part of providing excellent, safe, comprehensive care, the following was completed at our patient's visit: 1. A medication reconciliation and review to ensure accurate knowledge of current/active medications, including asking our patients to inform us about any ytsr-man-fnqzvik medications or herbal remedies/nutritional supplements/alternative remedies. 2. A review to specifically ensure our patients have had annual screening for: elevated body mass index (BMI), tobacco use, screening for depression, and screening for unhealthy alcohol use. When screening is concerning, patients are provided with education and the specific recommendation to discuss the concerning health issue and treatment options with their primary care provider. Assessment and Plan Assessment and Plan (1) Lumbar spondylosis: (2) Right calf pain: (3) Bilateral sacroiliitis: Plan new onset intermittent moderate to severe right calf pain, positive homans sign negative for edema redness or heat to touch. stat ultrasound to right calf rule out DVT bilateral SIJ injection under fluoroscopy with Dr Cyr bilateral L4-5 L5-S1 facet medial branch RFA continue HEP as tolerated encouraged NSAIDs with food f/u after injection
== END 2023-07-25 10:07 | disposition home or self-care (01) ==
LOC: PM 10:06
PROVIDERS: PCP Internal Medicine; Visit Provider Nurse Practitioner
DX: M79.661 Pain in right lower leg (principal); M47.816 Spondylosis without myelopathy or radiculopathy, lumbar region; M46.1 Sacroiliitis, not elsewhere classified
CPT/HCPCS: 93971; G0463

== ENCOUNTER 2023-07-25 10:55 | Outpatient (OUT) | payer MEDICARE, BC, SELFPAY ==
--- NOTE | 2023-07-25 11:00 | US_ITS ---
[facility] [place] [id number] Patient Name: FELIPE QUAN MRN: [id number] date: 1955 Sex: M Assigned Patient Location: RAD Current Patient Location: RAD Accession/Order Number: [id number] Exam Date: 07/25/2023 11:01 Report Date: 07/25/2023 11:38 At the request of: KIMBERLY HERNANDEZ Procedure: US venous doppler LE RT ULTRASOUND OF RIGHT LOWER EXTREMITY VENOUS SYSTEMS WITH DUPLEX, 07/25/2023 11:01 AM EST INDICATION: Intermittent right calf pain. COMPARISON: No prior right lower extremity Doppler ultrasound available for comparison at the time of this dictation. TECHNIQUE: Multi-planar real-time ultrasonography of the right lower extremity venous systems using grayscale imaging supplemented by color Doppler. Augmentation and compression maneuvers were utilized as needed. FINDINGS: The saphenofemoral junction, common femoral, profunda femoral, superficial femoral and popliteal veins are fully compressible with anterograde flow. Respiratory variation and waveform response to augmentation within normal limits. The posterior tibial, peroneal, greater saphenous, smaller saphenous and anterior tibial veins are fully compressible. US/US venous doppler LE RT IMPRESSION: Negative for venous thrombosis within the right lower extremity. Electronically authenticated by: JUAN DAVID BEASLEY Date: 07/25/2023 11:38
--- OUTSIDE RECORDS SUMMARY | 2023-07-25 11:17 | XMS_ITS | CCD ---
Author Name Unknown Address [address] [facility] [address] [place] [address] Organization [facility] Care Team Providers Care Inside Finisher Name Role Phone BOGDAN GREEN Primary Care Physician [phone] DR BOGDAN GREEN Primary Care Unavailable FRANCISCA [...] Medication Allergies] Propensity to adverse reactions (disorder) [facility] Repository (2 sources) patient allergy list reviewed by nurse or physicia Propensity to adverse reactions 05-24-201 6 Comment:Done Stitch.es Other Medications Current Medications Medication Drug Class(es) [...] day(s), # 90 tab(s), Refills(s) 3, Pharmacy: [facility]/pharmacy #[id number], 195, cm, 11/09/22 11:00:00 EDT, Height/Length Dosing, 111, kg, 11/09/22 11:00:00 EDT, Weight Dosing Start Date: 11/09/22 Stop Date: 11/04/23 Status: Ordered Start: 10-06-2021 take 1 tablet by osbaldo once daily finasteride 5 mg Tab 5 mg = 1 tab(s), Oral, Daily, # 90 tab(s), Refills(s) 3, Pharmacy: [facility]/pharmacy #[id number], 195, cm, 10/06/21 8:16:00 EDT, [...] Status: Ordered take 2 tablets by mo [facility] every twenty-four hours Glimepiride 4 MG [...] bid for 5 days Apr, Active [place] 5/16 (13 sources) Start: 09-27-2022 Start: 09-27-2022 [place] 16 Use to inject insulin qd SC daily for 30 days Sep, Active tamsulosin hydrochloride 0.4 mg oral capsule (10 sources) alpha-Adrenergic Andrew Start: 10-06-2021 End: 10-27-2023 take 1 capsule by mouth twice daily tamsulosin 0.4 mg Cap 0.4 mg = 1 cap(s), Oral, BID, X 30 day(s), # 60 cap(s), Refills(s) 11, Pharmacy: [facility]/pharmacy #[id number], 195, cm, 10/06/21 8:16:00 EDT, [...] acid 4700 mg / polyethylene glycol 3350 [id number] mg / potassium chloride 1015 mg / [...] 05-09-2015 Chronic Other aftercare (1 source) 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; 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: [OTH CUSTODIAL CURRENT DRUG THERAPY] Onset: 07-03-2022 Episodic Other aftercare (1 source) cutter down (current) use of oral hypoglycemic drugs; 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: [CUSTODIAL USE ORAL HYPOGLYCEMIC DX] Onset: 07-03-2022 Episodic Other aftercare (13 sources) Long-term current use of insulin; 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: [detention (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] Episodic Other aftercare (2 sources) detention (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 Episodic Other aftercare (2 sources) Long-term current use of drug therapy; 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: [Other jail (current) drug therapy] Episodic Other and unspecified [...] A1Con 2022 ADA RECOMMENDATION SEE BELOW Normal [facility] Comment on above: Result Comment: ADA RECOMMENDED LIMIT 4.0 - 6.0 ADA THERAPEUTIC TARGET < 7.0 ACTION SUGGESTED > 7.0 Performed By: #### B MP, LIPID, ALT, URIC #### [facility] [address] [address] [address] Jorge L Carey Glucose [Mass/Vol] 148 mg/dL Normal [facility] Comment on above: Performed By: #### B MP, LIPID, ALT, URIC #### [facility] [address] [place], [place] [address] Dr. Jorge L Carey HbA1c (Bld) [Mass fraction] 6.8 % Critically high 4.5-6.2 [facility] Comment on above: Performed By: #### B MP, LIPID, ALT, URIC #### [facility] [address] [address] [address] Jorge L Carey CARDIAC DANAY ADMITon 023 CK [Catalytic activity/Vol] 59 U/L Normal 39-308 [facility] Comment on above: Performed By: #### C MP, CMADM #### [facility] [address] [address] [address] Jorge L Carey CK.MB [Mass/Vol] 0.99 ng/mL Normal <=3.60 [facility] Comment on above: Performed By: #### C MP, CMADM #### [facility] [address] [address] [address] Jorge L Carey HSTROP 10.0 pg/mL Normal 4.0-76.1 [facility] Comment on above: Result Comment: CUT- OFF POINTS HAVE BEEN ESTABLISHED BASED ON THE FOURTH UNIVERSAL DEFINITIONS OF MYOCARDIAL INFARCTION. THE UPPER REFERENCE LIMIT (URL) OF TROPONIN, DEFINED THE 99TH PERCENTILE OF cTnI DISTRIBUTION IN A REFERENCE POPULATION, HAS BEEN CONFIRMED THE DECISION THRESHOLD FOR [place] DIAGNOSIS. Performed By: #### C MP, CMADM #### [facility] [address] [place] [address] Dr. Jorge L Carey GARLAND 52 ng/mL Normal 16-96 [facility] Comment on above: Performed By: #### C MP, CMADM #### [facility] [address] [place] [address] Dr. Jorge L Carey CBC AUTO DIFFon 07-01-2022 BASO # 0.0 103/ul Normal 0.0-0.1 [facility] Comment on above: Performed By: #### B MP, LIPID, ALT, URIC #### [facility] [address] [address] [address] Jorge L Carey Basophils/100 WBC (Bld) 0.3 % Normal 0.2-2.0 [facility] Comment on above: Performed By: #### B MP, LIPID, ALT, URIC #### [facility] [address] [place] [address] Dr. Jorge L Carey EO # 0.1 103/ul Normal 0.0-0.7 [facility] Comment on above: Performed By: #### B MP, LIPID, ALT, URIC #### [facility] [address] [address] [address] Jorge L Carey Eosinophils/100 WBC (Bld) 0.9 % Normal 0.9-7.0 [facility] Comment on above: Performed By: #### B MP, LIPID, ALT, URIC #### [facility] [address] [place] [address] Dr. Jorge L Carey Erythrocyte distribution width (RBC) [Ratio] 11.7 % Normal 11.0-15.0 [facility] Comment on above: Performed By: #### B MP, LIPID, ALT, URIC #### [facility] [address] [place] [address] Dr. Jorge L Carey Hematocrit (Bld) [Volume fraction] 41.1 % Critically low 42.0-54.0 [facility] Comment on above: Performed By: #### B MP, LIPID, ALT, URIC #### [facility] [address] [place] [address] Dr. Jorge L Carey Hemoglobin (Bld) [Mass/Vol] 14.5 g/dL Normal 14.0-18.0 [facility] Comment on above: Performed By: #### B MP, LIPID, ALT, URIC #### [facility] [address] [place] [address] Dr. Jorge L Carey IG # 0.02 10e3/ul Normal 0.00-0.03 [facility] Comment on above: Performed By: #### B MP, LIPID, ALT, URIC #### [facility] [address] [place] [address] Dr. Jorge L Carey IG % 0.3 % Normal 0.0-0.5 [facility] Comment on above: Performed By: #### B MP, LIPID, ALT, URIC #### [facility] [address] [place] [address] Dr. Jorge L Carey LYMPH # 1.1 103/ul Critically low 1.2-3.8 [facility] Comment on above: Performed By: #### B MP, LIPID, ALT, URIC #### [facility] [address] [place] [address] Dr. Jorge L Carey Lymphocytes/100 WBC (Bld) 16.6 % Critically low 20.5-60.0 [facility] Comment on above: Performed By: #### B MP, LIPID, ALT, URIC #### [facility] [address] [address] [address] Jorge L Carey MANUAL DIFF REQ NO Normal [facility] Comment on above: Performed By: #### B MP, LIPID, ALT, URIC #### [facility] [address] [place] [address] Dr. Jorge L Carey MCH (RBC) [Entitic mass] 30.1 pg Normal 25.9-34.0 [facility] Comment on above: Performed By: #### B MP, LIPID, ALT, URIC #### [facility] [address] [place] [address] Dr. Jorge L Carey MCHC (RBC) [Mass/Vol] 35.3 g/dL Critically high 29.9-35.2 [facility] Comment on above: Performed By: #### B MP, LIPID, ALT, URIC #### [facility] [address] [place] [address] Dr. Jorge L Carey MCV (RBC) [Entitic vol] 85.4 fL Normal 80.0-94.0 [facility] Comment on above: Performed By: #### B MP, LIPID, ALT, URIC #### [facility] [address] [place] [address] Dr. Jorge L Carey MONO # 0.4 103/ul Normal 0.3-0.8 [facility] Comment on above: Performed By: #### B MP, LIPID, ALT, URIC #### [facility] [address] [place] [address] Dr. Jorge L Carey Monocytes/100 WBC (Bld) 5.1 % Normal 1.7-12.0 [facility] Comment on above: Performed By: #### B MP, LIPID, ALT, URIC #### [facility] [address] [place] [address] Dr. Jorge L Carey NEUT # 5.3 103/ul Normal 1.4-6.5 [facility] Comment on above: Performed By: #### B MP, LIPID, ALT, URIC #### [facility] [address] [place] [address] Dr. Jorge L Carey Neutrophils/100 WBC (Bld) 76.8 % Critically high 43.0-75.0 [facility] Comment on above: Performed By: #### B MP, LIPID, ALT, URIC #### [facility] [address] [place] [address] Dr. Jorge L Carey Platelet mean volume (Bld) [Entitic vol] 12.1 fL Normal 9.5-13.5 [facility] Comment on above: Performed By: #### B MP, LIPID, ALT, URIC #### [facility] [address] [place] [address] Dr. Jorge L Carey PLT 147 103/ul Critically low 150-450 [facility] Comment on above: Performed By: #### B MP, LIPID, ALT, URIC #### [facility] [address] [place] [address] Dr. Jorge L Carey RBC 4.81 106/ul Normal 4.70-6.10 [facility] Comment on above: Performed By: #### B MP, LIPID, ALT, URIC #### [facility] [address] [place] [address] Dr. Jorge L Carey WBC 6.9 103/ul Normal 4.0-11.0 [facility] Comment on above: Performed By: #### B MP, LIPID, ALT, URIC #### [facility] [address] [place] [address] Dr[address] HEAD WO [...] MALENA LÓPEZ Date: 2022-07-01 20:24 Normal [facility] Covid-19 PCR (CVDTB)on 06-17 SARS-CoV-2 (COVID-19) RNA EDVIN+probe Ql (Unsp spec) Not detected Normal NOT DETECTED [facility] Comment on above: Result Comment: When [...] for this test is supported by the Patrol Captain of Health and Human Service's declaration that [...] used). Performed By: #### C VDTBH #### [facility] [address] [place] [address] Dr. Jorge L Carey D-DIMERon 07-01-2022 D-DIMER 0.21 mg/L FEU Normal <=0.59 [facility] Comment on above: Performed By: #### B MP, LIPID, ALT, URIC #### [facility] [address] [place], [place] [address] Dr. Jorge L Carey D-DIMER COMMENTS SEE BELOW Normal [facility] Comment on above: Result Comment: Incr eases [...] #### B MP, LIPID, ALT, URIC #### [facility] [address] [place] [address] Dr. Jorge L Carey ER URINE PROFILEon 3 Bilirubin Ql (U) Negative Normal NEGATIVE [facility] Comment on above: Performed By: #### B MP, LIPID, ALT, URIC #### [facility] [address] [place] [address] Dr. Jorge L Carey Clarity (U) CLEAR Normal CLEAR [facility] Comment on above: Performed By: #### B MP, LIPID, ALT, URIC #### [facility] [address] [place] [address] Dr. Jorge L Carey Color (U) LT. YELLOW Normal YELLOW [facility] Comment on above: Performed By: #### B MP, LIPID, ALT, URIC #### [facility] [address] [place] [address] Dr. Jorge L HERNANDEZ A micrscopic examination will be performed if indicated. Normal [facility] Comment on above: Performed By: #### B MP, LIPID, ALT, URIC #### [facility] [address] [place] [address] Dr. Jorge L Carey Glucose Ql (U) Negative Normal NEGATIVE [facility] Comment on above: Performed By: #### B MP, LIPID, ALT, URIC #### [facility] [address] [place] [address] Dr. Jorge L Carey Hemoglobin Ql (U) Negative Normal NEGATIVE [facility] Comment on above: Performed By: #### B MP, LIPID, ALT, URIC #### [facility] [address] [place] [address] Dr. Jorge L Carey Ketones Ql (U) Negative Normal NEGATIVE [facility] Comment on above: Performed By: #### B MP, LIPID, ALT, URIC #### [facility] [address] [address] [address] Jorge L Carey LEUKOCYTES Negative Normal NEGATIVE [facility] Comment on above: Performed By: #### B MP, LIPID, ALT, URIC #### [facility] [address] [address] [address] Jorge L Carey Nitrite Ql (U) Negative Normal NEGATIVE [facility] Comment on above: Performed By: #### B MP, LIPID, ALT, URIC #### [facility] [address] [address] [address] Jorge L Carey pH (U) 6.0 [pH] Normal 5-9 [facility] Comment on above: Performed By: #### B MP, LIPID, ALT, URIC #### [facility] [address] [address] [address] Jorge L Carey SPEC GRAVITY 1.020 Normal 1.005-<=1.025 [facility] Comment on above: Performed By: #### B MP, LIPID, ALT, URIC #### [facility] [address] [address] [address] Jorge L Carey UA PROTEIN Negative Normal NEGATIVE/ TRACE [facility] Comment on above: Performed By: #### B MP, LIPID, ALT, URIC #### [facility] [address] [address] [address] Jorge L Carey UR MICRO IND NOT INDICATED Normal [facility] Comment on above: Performed By: #### B MP, LIPID, ALT, URIC #### [facility] [address] [address] [address] Jorge L Carey Urobilinogen Qn (U) 1.0 {Ila'U}/dL Normal 0.2 - 1. 0 [facility] Comment on above: Performed By: #### B MP, LIPID, ALT, URIC #### [facility] [address] [place] [address] Dr. Jorge L Carey INFLUENZA A AND B AGon 07-01 INFLUANEGH SEE BELOW Normal [facility] Comment on above: Result Comment: Nega tive for Flu A protein angiten. Infection due to Flu A cannot be ruled out. Flu A angiten in the sample may be below the detection limit of the test. Performed By: #### I NFLUAB #### [facility] [address] [place] [address] Dr. Jorge L Carey INFLUUNITED [facility] SEE BELOW [facility] Comment on above: Result Comment: Nega tive for Flu B protein antigen. Infection due to Flu B cannot be ruled out. Flu B antigen in the sample may be below the detection limit of the test. Performed By: #### I NFLUAB #### [facility] [address] [place] [address] Dr. Jorge L Carey INFLUENZA A AG Negative Normal NEGATIVE SEE COMMENT [facility] Comment on above: Performed By: #### I NFLUAB #### [facility] [address] [place] [address] Dr. Jorge L Carey INFLUENZA B AG Negative Normal NEGATIVE SEE COMMENT [facility] Comment on above: Performed By: #### I NFLUAB #### [facility] [address] [place] [address] Dr. Jorge L Carey POINT OF CARE GLUCOSEon 06-17 Glucose [Mass/Vol] 130 mg/dL Critically high 74-106 [facility] Comment on above: Performed By: #### B MP, LIPID, ALT, URIC #### [facility] [address] [place] [address] Dr. Jorge L Carey PROF 14(COMP METB)on 023 Albumin [Mass/Vol] 3.7 g/dL Normal 3.4-5.0 [facility] Comment on above: Performed By: #### C IGGY, CMADM #### [facility] [address] [place] [address] Dr. Jorge L Carey Albumin/Globulin [Mass ratio] 1.2 {ratio} Normal [facility] Comment on above: Performed By: #### C IGGY, CMADM #### [facility] [address] [place] [address] Dr. Jorge L Carey ALP [Catalytic activity/Vol] 49 U/L Normal 46-116 [facility] Comment on above: Performed By: #### C MP, CMADM #### [facility] [address] [address] [address] Jorge L Carey ALT [Catalytic activity/Vol] 30 U/L Normal 16-63 [facility] Comment on above: Performed By: #### C MP, CMADM #### [facility] [address] [address] [address] Jorge L Carey Anion gap [Moles/Vol] 12.7 mmol/L Normal [facility] Comment on above: Performed By: #### C MP, CMADM #### [facility] [address] [address] [address] Jorge L Carey AST [Catalytic activity/Vol] 21 U/L Normal 15-37 [facility] Comment on above: Performed By: #### C IGGY, CMADM #### [facility] [address] [address] [address] Jorge L Carey Bilirubin [Mass/Vol] 0.5 mg/dL Normal 0.2-1.0 [facility] Comment on above: Performed By: #### C IGGY, CMADM #### [facility] [address] [address] [address] Jorge L Carey Calcium [Mass/Vol] 8.9 mg/dL Normal 8.5-10.1 [facility] Comment on above: Performed By: #### C IGGY, CMADM #### [facility] [address] [address] [address] Jorge L Carey Chloride [Moles/Vol] 100 mmol/L Normal 98-107 [facility] Comment on above: Performed By: #### C IGGY, CMADM #### [facility] [address] [address] [address] Jorge L Carey CO2 [Moles/Vol] 29.0 mmol/L Normal 21.0-32.0 [facility] Comment on above: Performed By: #### C IGGY, CMADM #### [facility] [address] [address] [address] Jorge L Carey Creatinine [Mass/Vol] 1.04 mg/dL Normal 0.70-1.30 [facility] Comment on above: Performed By: #### C MP, CMADM #### [facility] [address] [address] [address] Jorge L Carey EGFR-AF CHINESE >60 Normal >=60 [facility] Comment on above: Performed By: #### C MP, CMADM #### [facility] [address] [address] [address] Jorge L Carey EGFR-NON AF CHINESE >60 Normal >=60 [facility] Comment on above: Performed By: #### C MP, CMADM #### [facility] [address] [address] [address] Jorge L Carey Globulin (S) [Mass/Vol] 3.1 g/dL Normal [facility] Comment on above: Performed By: #### C MP, CMADM #### [facility] [address] [address] [address] Jorge L Carey Glucose [Mass/Vol] 140 mg/dL Critically high 74-106 [facility] Comment on above: Performed By: #### C MP, CMADM #### [facility] [address] [address] [address] Jorge L Carey Potassium [Moles/Vol] 3.7 mmol/L Normal 3.5-5.1 [facility] Comment on above: Performed By: #### C MP, CMADM #### [facility] [address] [address] [address] Jorge L Carey Protein [Mass/Vol] 6.8 g/dL Normal 6.4-8.2 [facility] Comment on above: Performed By: #### C MP, CMADM #### [facility] [address] [address] [address] Jorge L Carey Sodium [Moles/Vol] 138 mmol/L Normal 136-145 [facility] Comment on above: Performed By: #### C MP, CMADM #### [facility] [address] [address] [address] Jorge L Carey Urea nitrogen [Mass/Vol] 13.0 mg/dL Normal 7.0-18.0 [facility] Comment on above: Performed By: #### C MP, CMADM #### [facility] [address] [place] [address] Dr. Jorge L Carey Urea nitrogen/Creatinine [Mass ratio] 12.5 mg/mg Normal [facility] Comment on above: Performed By: #### C MP, CMADM #### [facility] [address] [place] [address] Dr. Jorge L Carey TROPONIN, HIGH SENSITIVITYon 07-01-2022 HSTROP 10.9 pg/mL Normal 4.0-76.1 [facility] Comment on above: Result Comment: CUT- OFF POINTS HAVE BEEN ESTABLISHED BASED ON THE FOURTH UNIVERSAL DEFINITIONS OF MYOCARDIAL INFARCTION. THE UPPER REFERENCE LIMIT (URL) OF TROPONIN, DEFINED THE 99TH PERCENTILE OF cTnI DISTRIBUTION IN A REFERENCE POPULATION, HAS BEEN CONFIRMED THE DECISION THRESHOLD FOR [place] DIAGNOSIS. Performed By: #### B MP, LIPID, ALT, URIC #### [facility] [address] [place] [address] Dr. Jorge L Carey XR CHEST 1 [...] FILIPPO MASTERS Date: 2022-07-01 19:57 Normal [facility] CBC AUTO DIFFon 04-18-2022 BASO # 0.0 103/ul Normal 0.0-0.1 [facility] Comment on above: Performed By: #### C BC #### [facility] [address] [place] [address] Dr. Jorge L Carey Basophils/100 WBC (Bld) 0.7 % Normal 0.2-2.0 [facility] Comment on above: Performed By: #### C BC #### [facility] [address] [place] [address] Dr. Jorge L Carey EO # 0.2 103/ul Normal 0.0-0.7 [facility] Comment on above: Performed By: #### C BC #### [facility] [address] [place] [address] Dr. Jorge L Carey Eosinophils/100 WBC (Bld) 2.6 % Normal 0.9-7.0 [facility] Comment on above: Performed By: #### C BC #### [facility] [address] [place] [address] Dr. Jorge L Carey Erythrocyte distribution width (RBC) [Ratio] 11.5 % Normal 11.0-15.0 [facility] Comment on above: Performed By: #### C BC #### [facility] [address] [place] [address] Dr. Jorge L Carey Hematocrit (Bld) [Volume fraction] 44.7 % Normal 42.0-54.0 [facility] Comment on above: Performed By: #### C BC #### [facility] [address] [place] [address] Dr. Jorge L Carey Hemoglobin (Bld) [Mass/Vol] 15.5 g/dL Normal 14.0-18.0 [facility] Comment on above: Performed By: #### C BC #### [facility] [address] [place] [address] Dr. Jorge L Carey IG # 0.01 10e3/ul Normal 0.00-0.03 [facility] Comment on above: Performed By: #### C BC #### [facility] [address] [place] [address] Dr. Jorge L Carey IG % 0.2 % Normal 0.0-0.5 [facility] Comment on above: Performed By: #### C BC #### [facility] [address] [place] [address] Dr. Jorge L Carey LYMPH # 1.3 103/ul Normal 1.2-3.8 [facility] Comment on above: Performed By: #### C BC #### [facility] [address] [place] [address] Dr. Jorge L Carey Lymphocytes/100 WBC (Bld) 21.3 % Normal 20.5-60.0 [facility] Comment on above: Performed By: #### C BC #### [facility] [address] [place] [address] Dr. Jorge L Carey MANUAL DIFF REQ NO Normal [facility] Comment on above: Performed By: #### C BC #### [facility] [address] [place] [address] Dr. Jorge L Carey MCH (RBC) [Entitic mass] 30.1 pg Normal 25.9-34.0 [facility] Comment on above: Performed By: #### C BC #### [facility] [address] [place] [address] Dr. Jorge L Carey MCHC (RBC) [Mass/Vol] 34.7 g/dL Normal 29.9-35.2 [facility] Comment on above: Performed By: #### C BC #### [facility] [address] [place] [address] Dr. Jorge L Carey MCV (RBC) [Entitic vol] 86.8 fL Normal 80.0-94.0 [facility] Comment on above: Performed By: #### C BC #### [facility] [address] [place] [address] Dr. Jorge L Carey MONO # 0.4 103/ul Normal 0.3-0.8 [facility] Comment on above: Performed By: #### C BC #### [facility] [address] [place] [address] Dr. Jorge L Carey Monocytes/100 WBC (Bld) 7.2 % Normal 1.7-12.0 [facility] Comment on above: Performed By: #### C BC #### [facility] [address] [place] [address] Dr. Jorge L Carey NEUT # 4.1 103/ul Normal 1.4-6.5 [facility] Comment on above: Performed By: #### C BC #### [facility] [address] [place] [address] Dr. Jorge L Carey Neutrophils/100 WBC (Bld) 68.0 % Normal 43.0-75.0 [facility] Comment on above: Performed By: #### C BC #### [facility] [address] [address] [address] Jorge L Carey Platelet mean volume (Bld) [Entitic vol] 12.0 fL Normal 9.5-13.5 [facility] Comment on above: Performed By: #### C BC #### [facility] [address] [address] [address] Jorge L Carey PLT 163 103/ul Normal 150-450 [facility] Comment on above: Performed By: #### C BC #### [facility] [address] [place] [address] Dr. Jorge L Carey RBC 5.15 106/ul Normal 4.70-6.10 [facility] Comment on above: Performed By: #### C BC #### [facility] [address] [place] [address] Dr. Jorge L Carey WBC 6.1 103/ul Normal 4.0-11.0 [facility] Comment on above: Performed By: #### C BC #### [facility] [address] [place] [address] Dr. Jorge L Carey GLYCOHEMOGLOBIN A1Con 2021 ADA RECOMMENDATION SEE BELOW Normal [facility] Comment on above: Result Comment: ADA RECOMMENDED LIMIT 4.0 - 6.0 ADA THERAPEUTIC TARGET < 7.0 ACTION SUGGESTED > 7.0 Performed By: #### B MP, LIPID, ALT, URIC #### [facility] [address] [place] [address] Dr. Jorge L Carey Glucose [Mass/Vol] 146 mg/dL Normal [facility] Comment on above: Performed By: #### B MP, LIPID, ALT, URIC #### [facility] [address] [place] [address] Dr. Jorge L Carey HbA1c (Bld) [Mass fraction] 6.7 % Critically high 4.5-6.2 [facility] Comment on above: Performed By: #### B MP, LIPID, ALT, URIC #### [facility] [address] [place] [address] Dr. Jorge L Carey LIPID PROFILEon 04-18-2022 CHOL-HDL RATIO NORM SEE BELOW Normal [facility] Comment on above: Result Comment: 3.3 - 4.4 LOW RISK 4.4 - 7.1 AVERAGE RISK 7.1 - 11.0 MODERATE RISK >11.0 HIGH RISK Performed By: #### B MP, LIPID, ALT, URIC #### [facility] [address] [address] [address] Jroge L Carey Cholesterol [Mass/Vol] 117 mg/dL Normal <=200 [facility] Comment on above: Performed By: #### B MP, LIPID, ALT, URIC #### [facility] [address] [address] [address] Jorge L Carey Cholesterol in HDL [Mass/Vol] 48 mg/dL Normal 40-60 [facility] Comment on above: Performed By: #### B MP, LIPID, ALT, URIC #### [facility] [address] [place] [address] Dr. Jorge L Carey Cholesterol in LDL [Mass/Vol] 50.6 mg/dL Normal [facility] Comment on above: Performed By: #### B MP, LIPID, ALT, URIC #### [facility] [address] [address] [address] Jorge L Carey Cholesterol.total/Ch olesterol in HDL [Mass ratio] 2.4 {ratio} Normal [facility] Comment on above: Performed By: #### B MP, LIPID, ALT, URIC #### [facility] [address] [address] [address] Jorge L Carey HDL NORMAL > or = 60 mg/dl - LO W CARDIOVASCULAR RISK <40 mg/dl - HIGH CARDIOVASCULAR RISK Normal [facility] Comment on above: Performed By: #### B MP, LIPID, ALT, URIC #### [facility] [address] [place] [address] Dr. Jorge L Carey LDL CALC NORMAL SEE BELOW Normal [facility] Comment on above: Result Comment: <100 mg/dl OPTIMAL 100 - 129 mg/dl NEAR OR ABOVE OPTIMAL 130 - 159 mg/dl BORDERLINE HIGH 160 - 189 mg/dl HIGH >190 mg/dl VERY HIGH Performed By: #### B MP, LIPID, ALT, URIC #### [facility] [address] [place] [address] Dr. Jorge L Carey Triglyceride [Mass/Vol] 92 mg/dL Normal <=150 [facility] Comment on above: Performed By: #### B MP, LIPID, ALT, URIC #### [facility] [address] [address] [address] Jorge L Carey VLDL CALC 18.4 mg/dL Normal [facility] Comment on above: Performed By: #### B MP, LIPID, ALT, URIC #### [facility] [address] [address] [address] Jorge L Carey MICROALBUMIN, RAND URon 11-0 mALB <1.3 Normal <=30.0 [facility] Comment on above: Performed By: #### M ALBR #### [facility] [address] [place] [address] Dr. Jorge L Carey PROF CHEM 8 (BAS METB)on Anion gap [Moles/Vol] 9.5 mmol/L Normal [facility] Comment on above: Performed By: #### B MP, LIPID, ALT, URIC #### [facility] [address] [place] [address] Dr. Jorge L Carey Calcium [Mass/Vol] 8.6 mg/dL Normal 8.5-10.1 [facility] Comment on above: Performed By: #### B MP, LIPID, ALT, URIC #### [facility] [address] [address] [address] Jorge L Carey Chloride [Moles/Vol] 102 mmol/L Normal 98-107 [facility] Comment on above: Performed By: #### B MP, LIPID, ALT, URIC #### [facility] [address] [place] [address] Dr. Jorge L Carey CO2 [Moles/Vol] 30.8 mmol/L Normal 21.0-32.0 [facility] Comment on above: Performed By: #### B MP, LIPID, ALT, URIC #### [facility] [address] [place] [address] Dr. Jorge L Carey Creatinine [Mass/Vol] 0.95 mg/dL Normal 0.70-1.30 [facility] Comment on above: Performed By: #### B MP, LIPID, ALT, URIC #### [facility] [address] [address] [address] Jorge L Carey EGFR-AF CHINESE >60 Normal >=60 [facility] Comment on above: Performed By: #### B MP, LIPID, ALT, URIC #### [facility] [address] [address] [address] Jorge L Carey EGFR-NON AF CHINESE >60 Normal >=60 [facility] Comment on above: Performed By: #### B MP, LIPID, ALT, URIC #### [facility] [address] [address] [address] Jorge L Carey Glucose [Mass/Vol] 142 mg/dL Critically high 74-106 [facility] Comment on above: Performed By: #### B MP, LIPID, ALT, URIC #### [facility] [address] [address] [address] Jorge L Carey Potassium [Moles/Vol] 4.3 mmol/L Normal 3.5-5.1 [facility] Comment on above: Performed By: #### B MP, LIPID, ALT, URIC #### [facility] [address] [address] [address] Jorge L Carey Sodium [Moles/Vol] 138 mmol/L Normal 136-145 [facility] Comment on above: Performed By: #### B MP, LIPID, ALT, URIC #### [facility] [address] [address] [address] Jorge L Carey Urea nitrogen [Mass/Vol] 14.0 mg/dL Normal 7.0-18.0 [facility] Comment on above: Performed By: #### B MP, LIPID, ALT, URIC #### [facility] [address] [address] [address] Jorge L Carey Urea nitrogen/Creatinine [Mass ratio] 14.7 mg/mg Normal [facility] Comment on above: Performed By: #### B MP, LIPID, ALT, URIC #### [facility] [address] [address] [address] Jorge L Carey SGPTon 04-18-2022 ALT [Catalytic activity/Vol] 27 U/L Normal 16-63 [facility] Comment on above: Performed By: #### B MP, LIPID, ALT, URIC #### [facility] [address] [address] [address] Jorge L Carey URIC ACID SERUMon 04-18-2022 Urate [Mass/Vol] 5.5 mg/dL Normal 3.5-7.2 [facility] Comment on above: Performed By: #### B MP, LIPID, ALT, URIC #### [facility] [address] [address] [address] Jorge L Carey GLYCOHEMOGLOBIN A1Con 2021 ADA RECOMMENDATION SEE BELOW Normal [facility] Comment on above: Result Comment: ADA RECOMMENDED LIMIT 4.0 - 6.0 ADA THERAPEUTIC TARGET < 7.0 ACTION SUGGESTED > 7.0 Performed By: #### B MP, LIPID, ALT, URIC #### [facility] [address] [address] [address] Jorge L Carey Glucose [Mass/Vol] 160 mg/dL Normal [facility] Comment on above: Performed By: #### B MP, LIPID, ALT, URIC #### [facility] [address] [address] [address] Jorge L Carey HbA1c (Bld) [Mass fraction] 7.2 % Critically high 4.5-6.2 [facility] Comment on above: Performed By: #### B MP, LIPID, ALT, URIC #### [facility] [address] [address] [address] Jorge L Carey Ambulatory Visit Summaryon 0 10-06-2021 Ambulatory Visit Summary FELIPE QUAN :1955 Visit Date:10/06/2021 Ambulatory Visit Instructions Your Diagnosis BPH with urinary obstruction Elevated PSA Tests Performed Urnls Dip Stick Auto w/o Microscopy POC 88902 Your Care Team Attending Physician - JOSE [...] MCMANUS, Hola Rushing Where: [facility] Patient Educationon 10-07-19 Patient Education Urology Benign [...] Follow these instructions at home: ? Take qwab-[id number] and prescription medicines only as told by [...] You d (more content not included)... Normal [facility] Urology Office/Clinic Noteon 10-06-2021 Urology Office/Clinic [...] EDT [facility] [address] [place] [address]- [phone] Additional Instructions: PSA Patient Education Benign Prostatic [...] (10/06/21 08:08:00) (more content not included)... Normal [facility] Comment on above: Result Comment: Elec tronically Signed By: Hola AMBRIZ MD\.br\Date and Time Signed: 10/06/21 08:39 EDT\.br\Electronically Co-Signed By: Ciarra Mckeon MA\.br\Date and Time Co-Signed: 10/06/21 08:38 EDT Lab [facility] 09-19-2021 Lab Reports [id number] D:[address] [facility] GLYCOHEMOGLOBIN A1Con 2021 ADA RECOMMENDATION ADA THERAPEUTIC TARG ET 6.0 - 7.0 ACTION SUGGESTED > 7.0 Normal [facility] Comment on above: Performed By: #### B MP, LIPID, ALT, URIC #### [facility] [address] [address] [address] Jorge L Carey Glucose [Mass/Vol] 177 mg/dL Normal [facility] Comment on above: Performed By: #### B MP, LIPID, ALT, URIC #### [facility] [address] [address] [address] Jorge L Carey HbA1c (Bld) [Mass fraction] 7.8 % Critically high <=6.0 [facility] Comment on above: Performed By: #### B MP, LIPID, ALT, URIC #### [facility] [address] [address] [address] Jorge L Carey [facility] 09-17-2020 Glucose [Mass/Vol] 151 mg/dL Normal [facility] Comment on above: Result Comment: PERF ORMED BY: [place] [address] PATHOLOGIST VALVE REPAIRER SUSAN SEXTON M.D. Performed By: #### O MOE GLYCO #### [place] [address] [facility] HbA1c (Bld) [Mass fraction] 6.9 % High 4.3-5.6 [facility] Comment on above: Result Comment: Incr eased risk for diabetes: 5.7 - 6.4 diabetes: >6.4 glycemic control for adults with diabetes: <7.0 Performed By: #### O MOE GLYCO #### [facility] [address] [id number] [facility] Vital Signs Date Time Vital Sign Value Performing Clinician Facility 07-08-2023 09:00-0500 Body height 190.5 cm Bogdan Ball Other [facility] Other 07-08-2023 09:00-0500 Body mass index (BMI) [Ratio] 32.62 kg/m2 Bogdan Ball Other [facility] Other 07-08-2023 09:00-0500 Body weight 118.39 kg Bogdan Ball Other [facility] Other 07-08-2023 09:00-0500 Diastolic blood pressure 81 mm[Hg] Bogdan Ball Other [facility] Other 07-08-2023 09:00-0500 Respiratory rate 12 /min Bogdan Ball Other [facility] Other 07-08-2023 09:00-0500 Systolic blood pressure 117 mm[Hg] Bogdan Ball Other [facility] Other 05-01-2023 08:30-0500 Body height 190.5 cm Bogdan Ball Other [facility] Other 05-01-2023 08:30-0500 Body mass index (BMI) [Ratio] 32.19 kg/m2 Bogdan Ball Other [facility] Other 05-01-2023 08:30-0500 Body weight 116.85 kg Bogdan Ball Other [facility] Other 05-01-2023 08:30-0500 Diastolic blood pressure 81 mm[Hg] Bogdan Ball Other [facility] Other 05-01-2023 08:30-0500 Respiratory rate 12 /min Bogdan Ball Other [facility] Other 05-01-2023 08:30-0500 Systolic blood pressure 135 mm[Hg] Bogdan Ball Other [facility] Other 12-26-2022 08:30-0400 Body height 190.5 cm Bogdan Ball Other [facility] Other 12-26-2022 08:30-0400 Body mass index (BMI) [Ratio] 31.54 kg/m2 Bogdan Ball Other [facility] Other 12-26-2022 08:30-0400 Body weight 114.49 kg Bogdan Ball Other [facility] Other 12-26-2022 08:30-0400 Diastolic blood pressure 85 mm[Hg] Bogdan Ball Other [facility] Other 12-26-2022 08:30-0400 Respiratory rate 12 /min Bogdan Ball Other [facility] Other 12-26-2022 08:30-0400 Systolic blood pressure 139 mm[Hg] Bogdan Ball Other [facility] Other 11-09-2022 10:58-0400 Blood Pressure Location Hola AMBRIZ [facility] 11-09-2022 10:58-0400 Diastolic blood pressure 80 mm[Hg] Hola AMBRIZ [facility] 11-09-2022 10:58-0400 Heart rate 78 /min Hola AMBRIZ [facility] 11-09-2022 10:58-0400 Respiratory rate 16 /min Hola AMBRIZ [facility] 11-09-2022 10:58-0400 Systolic blood pressure 130 mm[Hg] Hola AMBRIZ [facility] 10-05-2022 12:15-0400 Body height 190.5 cm Bogdan Ball Other [employer] [facility] [employer] Other 10-05-2022 12:15-0400 Body mass index (BMI) [Ratio] 31.17 kg/m2 Bogdan Ball Other [facility] [facility] [employer] Other 10-05-2022 12:15-0400 Body weight 113.13 kg Bogdan Ball Other [facility] Other 10-05-2022 12:15-0400 Diastolic blood pressure 95 mm[Hg] Bogdan Ball Other [facility] [employer] Other 10-05-2022 12:15-0400 Respiratory rate 12 /min Bogdan Ball Other [facility] Other 10-05-2022 12:15-0400 Systolic blood pressure 168 mm[Hg] Bogdan Ball Other [facility] Other 08-23-2022 08:30-0500 Body height 190.5 cm Bogdan Ball Other [facility] Other 08-23-2022 08:30-0500 Body mass index (BMI) [Ratio] 31.42 kg/m2 Bogdan Ball Other [facility] Other 08-23-2022 08:30-0500 Body weight 114.04 kg Bogdan Ball Other [facility] Other 08-23-2022 08:30-0500 Diastolic blood pressure 86 mm[Hg] Bogdan Ball Other [facility] Other 08-23-2022 08:30-0500 Respiratory rate 12 /min Bogdan Ball Other [facility] Other 08-23-2022 08:30-0500 Systolic blood pressure 132 mm[Hg] Bogdan Ball Other [facility] Other 10-06-2021 08:14-0400 Blood Pressure Location Hola [employer] [facility] 10-06-2021 08:14-0400 Diastolic blood pressure 98 mm[Hg] Hola [employer] [facility] 10-06-2021 08:14-0400 Heart rate 78 /min Hola [employer] [facility] 10-06-2021 08:14-0400 Systolic blood pressure 145 mm[Hg] Hola AMBRIZ [facility] Encounters Encounter Date Encounter Type Care Provider Facility Start: 07-08-2023 End: 07-08-2023 ambulatory Bogdan Ball Other [facility] Other Start: 07-08-2023 Office outpatient vi sit 25 minutes Bogdan Ball [facility] Start: 06-24-2023 End: 06-25-2023 ambulatory Dm Cyr MD Facility: [facility] Start: 05-20-2023 End: 05-21-2023 ambulatory Dm Cyr MD Facility: [facility] Start: 05-10-2023 End: 05-10-2023 ambulatory Bogdan Green Other [facility] Other Start: 05-10-2023 Office outpatient vi sit 15 minutes Bogdan Ball [facility] Start: 05-01-2023 End: 05-01-2023 ambulatory Bogdan Green Other [facility] Other Start: 05-01-2023 Patient encounter procedure Bogdan Ball [facility] Start: 04-24-2023 End: 04-24-2023 ambulatory Bogdan Green Other [facility] Other Start: 04-24-2023 Telephone encounter Bogdan Peter [facility] Start: 02-25-2023 End: 02-25-2023 ambulatory Bogdan Green Other [facility] Other Start: 02-25-2023 Telephone encounter Bogdan Green [facility] Start: 12-27-2022 End: 12-27-2022 ambulatory Bogdan Green Other [facility] Other Start: 12-27-2022 Telephone encounter Bogdan Ball [facility] Start: 12-26-2022 End: 12-26-2022 ambulatory Bogdan Ball Other [facility] Other Start: 12-26-2022 Office outpatient vi sit 25 minutes Bogdan Ball [facility] Start: 11-19-2022 End: 11-19-2022 ambulatory Bogdan Ball Other [facility] Other Start: 11-19-2022 Telephone encounter Bogdan Ball [facility] Start: 11-09-2022 ambulatory Hola AMBRIZ Facili ty:[facility] Start: 11-09-2022 End: 11-09-2022 Patient encounter procedure Hola AMBRIZ [facility] Start: 10-22-2022 End: 10-22-2022 ambulatory Bogdan Green Other [facility] Other Start: 10-22-2022 Telephone encounter Bogdan Ball [facility] Start: 10-18-2022 End: 10-18-2022 ambulatory Bogdan Green Other [facility] Other Start: 10-18-2022 Telephone encounter Bogdan Ball [facility] Start: 10-05-2022 End: 10-05-2022 ambulatory Bogdan Peter Other [facility] Other Start: 10-05-2022 Office outpatient vi sit 15 minutes Bogdan Ball [facility] Start: 09-27-2022 End: 09-27-2022 ambulatory Bogdan Peter Other [facility] Other Start: 09-27-2022 Telephone encounter Bogdan Ball [facility] Start: 09-25-2022 End: 09-25-2022 ambulatory Bogdan Peter Other [facility] Other Start: 09-25-2022 Telephone encounter Bogdan Ball [facility] Start: 09-21-2022 End: 09-21-2022 ambulatory Bogdan Ball Other [facility] Other Start: 09-21-2022 Telephone encounter Bogdan Ball [facility] Start: 08-23-2022 End: 08-23-2022 ambulatory Bogdan Ball Other [facility] Other Start: 08-23-2022 Office outpatient vi sit 25 minutes Bogdan Green [facility] Start: 08-17-2022 End: 08-18-[address] BOGDAN GREEN Facility:[facility] Start: 08-14-2022 End: 08-14-2022 ambulatory Bogdan Green Other [facility] Other Start: 08-14-2022 Telephone encounter Bogdan Green [facility] Start: 07-01-2022 End: 07-01-[address] BOGDAN GREEN Facility:[facility] Start: 04-25-2022 Adult health examination Bogdan Green Other [facility] Other Start: 04-18-2022 End: 04-19-[address] BOGDAN GREEN Facility:[facility] Start: 01-20-2022 End: 01-21-2022 ambulatory NONE LISTED REQUEST Facility:[facility] Start: 10-06-2021 ambulatory Hola AMBRIZ Facility :[facility] Start: 10-06-2021 End: 10-07-2021 ambulatory Hola AMBRIZ [facility] Start: 10-06-2021 End: 10-06-2021 Patient encounter procedure Hola AMBRIZ [facility] Start: 09-16-2021 End: 09-17-[address] HOLA AMBRIZ . Facility:[facility] Start: 09-15-2021 End: 09-16-2021 ambulatory NONE LISTED REQUEST Facility:[facility] Start: 08-29-[address] BOGDAN GREEN Facili ty:[facility] Procedures Date Procedure Procedure Detail Performing Clinician Start: 09-16-[address] PISANO [place] Comment on above: Performed By: #### B MP, LIPID, ALT, URIC #### [facility] [address] [place] [address] Dr. Jorge L Carey Start: 03-29-2017 General [...] Immunization Date Immunization Notes Care Provider Fa [facility] 04-29-2023 zoster vaccine recombinant Bogdan Green Other [facility] Other 04-26-2023 influenza, high dose seasonal, preservative-free Bogdan Green Other [facility] Other 02-26-2023 zoster vaccine recombinant Bogdan Green Other [facility] Other 04-25-2022 pneumococcal 20-alber nt conjugate vaccine Hola AMBRIZ [facility] 04-16-2022 influenza virus vaccine, split virus (incl. purified surface antigen) Bogdan Green Other [facility] Other 04-16-2022 influenza virus vaccine, unspecified formulation Hola AMBRIZ [facility] 03-23-2022 SARS-CoV-2 (COVID-19 ) [id number] Hola AMBRIZ [facility] 05-08-2021 SARS-CoV-2 (COVID-19 ) mRNA BNT-162b2 vax Hola AMBRIZ [facility] 04-22-2021 influenza virus vaccine, split virus (incl. purified surface antigen) Bogdan Green Other [facility] Other 04-22-2021 influenza virus vaccine, unspecified formulation Hola AMBRIZ [facility] 03-30-2021 influenza virus vaccine, unspecified formulation Hola AMBRIZ [facility] 09-16-2020 COVID-19, mRNA, LNP- S, PF, 30 mcg/0.3 mL dose; 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: [Pfizer-BioNTech COVID-19 Vaccine] Hola AMBRIZ [facility] Comment on above: Reason for Medicatio n: Prophylaxis 08-26-2020 COVID-19, mRNA, LNP- S, PF, 30 mcg/0.3 mL dose; 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: [Pfizer-BioNTech COVID-19 Vaccine] Hola AMBRIZ [facility] Comment on above: Reason for Medicatio n: Prophylaxis 04-16-2020 influenza virus vaccine, split virus (incl. purified surface antigen) Bogdan Green Other [facility] Other 04-16-2020 influenza virus vaccine, unspecified formulation Hola AMBRIZ [facility] pneumococcal Conjuga te, unspecified formulation; 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: [Need for prophylactic vaccination against Streptococcus pneumoniae (pneumococcus)] Bogdan Green Other [facility] Other Payers Date Payer Category Payer Medicare 2022 Unknown 2021 Medicare [id number] 2020 Unknown [id number] 1959 Medicare [id number] 1959 Self-pay [id number] 1959 Unknown [id number] 1959 Unknown [id number] 1956 Unknown [id number] 2.16.84 [id number] 1956 Unknown [id number] 2.16.84 [id number] 1956 Unknown [id number] 2.16.84 [id number] 1956 Unknown [id number] 2.16.84 [id number] 1956 Unknown [id number] 2.16.84 [id number] 1956 Unknown [id number] 2.16.8 [id number] 1956 Unknown [id number] 2.16.8 [id number] 1956 Unknown [id number] 2.16. [id number] 1955 Unknown [id number] 2.16. [id number] Blue Cross Blue Shield [id number] Unknown [id number] 2.16.84 [id number] Unknown [id number] 2.16.84 [id number] Social History Date Type Detail Facility Start: 10-06-2021 End: 11-09-2022 Tobacco smoking status Never smoked tobacco (finding) [facility] Sex Assigned At Male [facility] Tobacco smoking status Never [facility] Functional Status Date Assessment Result Facility 11-09-2022 Functional Status N/A [facility] Clinical Notes 10-06-2021 to 07-08-2023 Note [...] index [BMI] 32.0-32.9, adult (ICD-10 - Z68.32) [facility] Other 11-24-2023 Evaluation note* Encounter Date Diagnosis [...] Microalbumin, Dilated eye exam and Foot exam [facility] Other 11-15-2023 Evaluation note* Encounter Date Diagnosis [...] flares Sep, Thrombocytopenia, unspecified (ICD-10 - D69.6) [facility] Other 11-15-2023 Evaluation note* Encounter Date Diagnosis [...] flares Sep, Thrombocytopenia, unspecified (ICD-10 - D69.6) [facility] Other 11-08-2023 Evaluation note* Encounter Date Diagnosis Assessment Notes Treatment Notes Treatment Clinical Notes Apr, Screening PSA (prostate specific antigen) (ICD-10 - Z12.5) Apr, Type 2 diabetes mellitus with hyperglycemia, without long-term current use of insulin (ICD-10 - E11.65) Apr, Elevated cholesterol (ICD-10 - E78.00) Apr, Primary hypertension (ICD-10 - I10) Sep, Thrombocytopenia, unspecified (ICD-10 - D69.6) Thrombocytopenia [facility] Other 07-12-2023 Evaluation note* Encounter Date Diagnosis [...] [BMI] 31.0-31.9, adult (ICD-10 - Z68.31) Dec, detention (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 (ICD-10 - Z79.4) [facility] Other 05-26-2023 Hospital Discharge instructions Patient Education [...] treatment? Where to find more information [employer]: www.cancer.org [employer]: www.auanet.org Contact a health care [...] provider. Document Revised: 11/27/2021 Document Reviewed: 11/27/2021 [employer] Patient Education 2022 e-contratos. Follow Up Care 10/06/2021 08:40:21 With:JOSE MCMANUS, Hola Rushing, URL Address: [facility] [address] , [place] [address]- When: Unknown [facility] Kyree 05-08-2023 Evaluation note* Encounter Date Diagnosis Assessment Notes Treatment Notes Treatment Clinical Notes October, Primary hypertension (ICD-10 - I10) [facility] Other 05-04-2023 Evaluation note* Encounter Date Diagnosis Assessment Notes Treatment Notes Treatment Clinical Notes October, Primary hypertension (ICD-10 - I10) [facility] Other 04-21-2023 Evaluation note* Encounter Date Diagnosis [...] and Glimepiride appear to be controlling BS. [facility] Other 04-13-2023 Evaluation note* Encounter Date Diagnosis Assessment Notes Treatment Notes Treatment Clinical Notes Sep, Type 2 diabetes mellitus with hyperglycemia (ICD-10 - E11.65) Sep, cutter down (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 (ICD-10 - Z79.4) [facility] Other 04-11-2023 Evaluation note* Encounter Date Diagnosis Assessment Notes Treatment Notes Treatment Clinical Notes Sep, Type 2 diabetes mellitus with hyperglycemia, without long-term current use of insulin (ICD-10 - E11.65) [facility] Other 04-07-2023 Evaluation note* Encounter Date Diagnosis Assessment Notes Treatment Notes Treatment Clinical Notes Sep, Type 2 diabetes mellitus with hyperglycemia (ICD-10 - E11.65) [facility] Other 03-09-2023 Evaluation note* Encounter Date Diagnosis [...] Reviewed red flag symptoms and nerve impingement [facility] Other 02-28-2023 Evaluation note* Encounter Date Diagnosis Assessment Notes Treatment Notes Treatment Clinical Notes Jul, Type 2 diabetes mellitus with hyperglycemia, without long-term current use of insulin (ICD-10 - E11.65) [facility] Other 04-22-2022 Hospital Discharge instructions Patient Education [...] urethra. Follow these instructions at home: Take wege-fdx-nvuizug and prescription medicines only as told by [...] 06/03/2006 Document Revised: 04/28/2019 Document Reviewed: 07/08/2017 [employer] Patient Education [employer]. Follow Up Care 10/03/2020 15:00:49 With:JOSE MCMANUS, Hola Rushing, URL Address: [facility] [address], [place] [address]- [phone] When:10/06/2022 [facility] evaluation + Plan note Future Appointments Appointment Date:10/12/2022 08:00:00 AM Scheduled Provider:Hola AMBRIZ MD Location:[facility] Appointment Type:URO Office Visit Diagnostic Tests Pending * PSA Total 10/06/21 [facility] evaluation + Plan note Future Appointments Appointment Date:11/18/2023 08:45:00 AM Scheduled Provider:Hola AMBRIZ MD Location:[facility] Appointment Type:URO Office Visit Diagnostic Tests Pending * PSA Free & Total 11/09/22 [facility] evaluation noteNortGeckoLife Other Evaluation noteNo InformationNort [employer] Other History general Narrative - Reported* Type [...] CYSTOSCOPY 2016 Hospitalization History SEE SURGICAL HX [facility] Other History general Narrative - ReportedNoGeckoLife Other History general Narrative - Reported* Type [...] CYSTOSCOPY 2016 Hospitalization History SEE SURGICAL HX [facility] Other Hospital course Narrative No data available for this section [facility] progress note No data available for this section [facility] Summary Purpose Family History No Family [...] well ness visit, initial (Z00.00) Referral Organization [facility] jono Referring Provider First Name Bogdan Referring Provider Last Name Peter Referring Provider Specialty Internal Me dicine Referred Organization [facility] Referred Provider Swapnil French Referred Address [address] [place], [place],[address] Referred Provider Specialty Pain Medicin e Referral [...] Notes Include XR lumbar sp ine f: [phone] Additional Source Comments (unrecognized sect ion and content) No Status Records FoundNo Status Records FoundNo Status Records FoundNo Status Records Found INFORMATION SOURCE (unrecogn ized section and content) DATE CREATED AUTHOR 07/30/2021 [facility] DATE CREATED AUTHOR AUTHOR'S ORGANIZ ATION 08/22/2022 [facility] DATE CREATED AUTHOR AUTHOR'S ORGANIZ ATION [facility] DATE CREATED AUTHOR AUTHOR'S ORGANIZ ATION 07/09/2023 [facility] REASON FOR VISIT (unrecogniz ed section and content) Elevated blood [id number] PositiveWellnesslabsLab ResultsBP readingsrefillelevated BPMedication4 MONTH FOLLOW UP Patient Care team informatio n (unrecognized section and content) Personnel Name: PETER SANTOS BOGDAN Address: Address: [address] [place], [place] [address] FOR RECORDS PERTAINING TO PATIENTS WHO ARE [...] BE BASED ON THE PRIMARY CLINICAL RECORDS. [facility] [employer] [facility]. provides no warranty or guarantee of the accuracy or completeness of information in this document.
== END 2023-07-25 10:56 | disposition home or self-care (01) ==
PROVIDERS: PCP Internal Medicine; Visit Provider Nurse Practitioner
DX: M79.661 Pain in right lower leg (principal)
CPT/HCPCS: 93971

== ENCOUNTER 2023-07-29 09:13 | Day surgery (SDC) | payer MEDICARE, BC, SELFPAY ==
--- OUTSIDE RECORDS SUMMARY | 2023-07-29 09:21 | XMS_ITS | CCD ---
Author Name Unknown Address [id number] [facility] [address] [place] [address] Organization [facility] Care Team Providers Care Chief Information Officer Name Role Phone BOGDAN GREEN Primary Care [...] Allergies] Propensity to adverse reactions (disorder) [facility] Repository (2 sources) patient allergy list reviewed by nurse or physicia Propensity to adverse reactions 05-24-201 6 Comment:Done [employer] Other Medications Current Medications Medication Drug Class(es) [...] day(s), # 90 tab(s), Refills(s) 3, Pharmacy: [facility]/pharmacy #[id number], 195, cm, 11/09/22 11:00:00 EDT, Height/Length Dosing, 111, kg, 11/09/22 11:00:00 EDT, Weight Dosing Start Date: 11/09/22 Stop Date: 11/04/23 Status: Ordered Start: 10-06-2021 take 1 tablet by osbaldo once daily finasteride 5 mg Tab 5 mg = 1 tab(s), Oral, Daily, # 90 tab(s), Refills(s) 3, Pharmacy: [facility]/pharmacy #[id number], 195, cm, 10/06/21 [...] Status: Ordered take 2 tablets by mo [facility] every twenty-four hours Glimepiride 4 MG 2 [...] bid for 5 days Apr, Active [place] 5/16 (13 sources) Start: 09-27-2022 Start: 09-27-2022 [place] 16 Use to inject insulin qd SC daily for 30 days Sep, Active tamsulosin hydrochloride 0.4 mg oral capsule (10 sources) alpha-Adrenergic Andrew Start: 10-06-2021 End: 10-27-2023 take 1 capsule by mouth twice daily tamsulosin 0.4 mg Cap 0.4 mg = 1 cap(s), Oral, BID, X 30 day(s), # 60 cap(s), Refills(s) 11, Pharmacy: [facility]/pharmacy #[id number], 195, cm, 10/06/21 [...] acid 4700 mg / polyethylene glycol 3350 277464 mg / potassium chloride 1015 mg / [...] 05-09-2015 Chronic Other aftercare (1 source) Other intermediate (current) drug therapy; 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: [OTH SLURRY MAN CURRENT DRUG THERAPY] Onset: 07-03-2022 Episodic Other aftercare (1 source) 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; 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: [SLURRY MAN USE ORAL HYPOGLYCEMIC DX] Onset: 07-03-2022 Episodic Other aftercare (13 sources) Long-term current use of insulin; 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: [half-way (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] Episodic Other aftercare (2 sources) 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 Jorge L Carey Glucose [Mass/Vol] 148 mg/dL Normal The [facility] Comment on above: Performed By: #### B MP, LIPID, ALT, URIC #### [facility] [address] [place], [place] [address] Dr. Jorge L Carey HbA1c (Bld) [Mass fraction] 6.8 % Critically high 4.5-6.2 [facility] Comment on above: Performed By: #### B MP, LIPID, ALT, URIC #### [facility] [address] [address] [address] Jorge L Carey CARDIAC DANAY ADMITon 023 CK [Catalytic activity/Vol] 59 U/L Normal 39-308 [facility] Comment on above: Performed By: #### C MP, CMADM #### [facility] [address] [address] [address] Jorge L Carey CK.MB [Mass/Vol] 0.99 ng/mL Normal <=3.60 [facility] Comment on above: Performed By: #### C MP, CMADM #### [facility] [address] [address] [address] Jorge L Carey HSTROP 10.0 pg/mL Normal 4.0-76.1 [facility] Comment on above: Result Comment: CUT- OFF POINTS HAVE BEEN ESTABLISHED BASED ON THE FOURTH UNIVERSAL DEFINITIONS OF MYOCARDIAL INFARCTION. THE UPPER REFERENCE LIMIT (URL) OF TROPONIN, DEFINED THE 99TH PERCENTILE OF cTnI DISTRIBUTION IN A REFERENCE POPULATION, HAS BEEN CONFIRMED THE DECISION THRESHOLD FOR HI DIAGNOSIS. Performed By: #### C MP, CMADM #### [facility] [address] [place] [address] Dr. Jorge L Carey GARLAND 52 ng/mL Normal 16-96 [facility] Comment on above: Performed By: #### C MP, CMADM #### [facility] [address] [place] [address] Dr. Jorge L Carey CBC AUTO DIFFon 07-01-2022 BASO # 0.0 103/ul Normal 0.0-0.1 [facility] Comment on above: Performed By: #### B MP, LIPID, ALT, URIC #### [facility] [address] [address] [address] Jorge L Carey Basophils/100 WBC (Bld) 0.3 % Normal 0.2-2.0 [facility] Comment on above: Performed By: #### B MP, LIPID, ALT, URIC #### [facility] [address] [place] [address] Dr. Jorge L Carey EO # 0.1 103/ul Normal 0.0-0.7 [facility] Comment on above: Performed By: #### B MP, LIPID, ALT, URIC #### [facility] [address] [address] [address] Jorge L Carey Eosinophils/100 WBC (Bld) 0.9 % Normal 0.9-7.0 [facility] Comment on above: Performed By: #### B MP, LIPID, ALT, URIC #### [facility] [address] [place] [address] Dr. Jorge L Carey Erythrocyte distribution width (RBC) [Ratio] 11.7 % Normal 11.0-15.0 [facility] Comment on above: Performed By: #### B MP, LIPID, ALT, URIC #### [facility] [address] [place] [address] Dr. Jorge L Carey Hematocrit (Bld) [Volume fraction] 41.1 % Critically low 42.0-54.0 [facility] Comment on above: Performed By: #### B MP, LIPID, ALT, URIC #### [facility] [address] [place] [address] Dr. Jorge L Carey Hemoglobin (Bld) [Mass/Vol] 14.5 g/dL Normal 14.0-18.0 [facility] Comment on above: Performed By: #### B MP, LIPID, ALT, URIC #### [facility] [address] [place] [address] Dr. Jorge L Carey IG # 0.02 10e3/ul Normal 0.00-0.03 [facility] Comment on above: Performed By: #### B MP, LIPID, ALT, URIC #### [facility] [address] [place] [address] Dr. Jorge L Carey IG % 0.3 % Normal 0.0-0.5 [facility] Comment on above: Performed By: #### B MP, LIPID, ALT, URIC #### [facility] [address] [place] [address] Dr. Jorge L Carey LYMPH # 1.1 103/ul Critically low 1.2-3.8 [facility] Comment on above: Performed By: #### B MP, LIPID, ALT, URIC #### [facility] [address] [place] [address] Dr. Jorge L Carey Lymphocytes/100 WBC (Bld) 16.6 % Critically low 20.5-60.0 [facility] Comment on above: Performed By: #### B MP, LIPID, ALT, URIC #### [facility] [address] [address] [address] Jorge L Carey MANUAL DIFF REQ NO Normal [facility] Comment on above: Performed By: #### B MP, LIPID, ALT, URIC #### [facility] [address] [place] [address] Dr. Jorge L Carey MCH (RBC) [Entitic mass] 30.1 pg Normal 25.9-34.0 [facility] Comment on above: Performed By: #### B MP, LIPID, ALT, URIC #### [facility] [address] [place] [address] Dr. Jorge L Carey MCHC (RBC) [Mass/Vol] 35.3 g/dL Critically high 29.9-35.2 [facility] Comment on above: Performed By: #### B MP, LIPID, ALT, URIC #### [facility] [address] [place] [address] Dr. Jorge L Carey MCV (RBC) [Entitic vol] 85.4 fL Normal 80.0-94.0 [facility] Comment on above: Performed By: #### B MP, LIPID, ALT, URIC #### [facility] [address] [place] [address] Dr. Jorge L Carey MONO # 0.4 103/ul Normal 0.3-0.8 [facility] Comment on above: Performed By: #### B MP, LIPID, ALT, URIC #### [facility] [address] [place] [address] Dr. Jorge L Carey Monocytes/100 WBC (Bld) 5.1 % Normal 1.7-12.0 [facility] Comment on above: Performed By: #### B MP, LIPID, ALT, URIC #### [facility] [address] [place] [address] Dr. Jorge L Carey NEUT # 5.3 103/ul Normal 1.4-6.5 [facility] Comment on above: Performed By: #### B MP, LIPID, ALT, URIC #### [facility] [address] [place] [address] Dr. Jorge L Carey Neutrophils/100 WBC (Bld) 76.8 % Critically high 43.0-75.0 [facility] Comment on above: Performed By: #### B MP, LIPID, ALT, URIC #### [facility] [address] [place] [address] Dr. Jorge L Carey Platelet mean volume (Bld) [Entitic vol] 12.1 fL Normal 9.5-13.5 [facility] Comment on above: Performed By: #### B MP, LIPID, ALT, URIC #### [facility] [address] [place] [address] Dr. Jorge L Carey PLT 147 103/ul Critically low 150-450 [facility] Comment on above: Performed By: #### B MP, LIPID, ALT, URIC #### [facility] [address] [place] [address] Dr. Jorge L Carey RBC 4.81 106/ul Normal 4.70-6.10 [facility] Comment on above: Performed By: #### B MP, LIPID, ALT, URIC #### [facility] [address] [place] [address] Dr. Jorge L Carey WBC 6.9 103/ul Normal 4.0-11.0 [facility] Comment on above: Performed By: #### B MP, LIPID, ALT, URIC #### [facility] [address] [place] [address] Dr[address] HEAD WO [...] MALENA LÓPEZ Date: 2022-07-01 20:24 Normal [facility] Covid-19 PCR (CVDTB)on 06-17 SARS-CoV-2 (COVID-19) RNA EDVIN+probe Ql (Unsp spec) Not detected Normal NOT DETECTED [facility] Comment on above: Result Comment: When [...] for this test is supported by the [place] of Health and Human Service's declaration that [...] used). Performed By: #### C VDTBH #### [facility] [address] [place] [address] Dr. Jorge L Carey D-DIMERon 07-01-2022 D-DIMER 0.21 mg/L FEU Normal <=0.59 [facility] Comment on above: Performed By: #### B MP, LIPID, ALT, URIC #### [facility] [address] [place], [place] [address] Dr. Jorge L Carey D-DIMER COMMENTS SEE BELOW Normal [facility] Comment on above: Result Comment: Incr [...] #### B MP, LIPID, ALT, URIC #### [facility] [address] [place] [address] Dr. Jorge L Carey ER URINE PROFILEon 3 Bilirubin Ql (U) Negative Normal NEGATIVE [facility] Comment on above: Performed By: #### B MP, LIPID, ALT, URIC #### [facility] [address] [place] [address] Dr. Jorge L Carey Clarity (U) CLEAR Normal CLEAR [facility] Comment on above: Performed By: #### B MP, LIPID, ALT, URIC #### [facility] [address] [place] [address] Dr. Jorge L Carey Color (U) LT. YELLOW Normal YELLOW [facility] Comment on above: Performed By: #### B MP, LIPID, ALT, URIC #### [facility] [address] [place] [address] Dr. Jorge L HERNANDEZ A micrscopic examination will be performed if indicated. Normal [facility] Comment on above: Performed By: #### B MP, LIPID, ALT, URIC #### [facility] [address] [place] [address] Dr. Jorge L Carey Glucose Ql (U) Negative Normal NEGATIVE [facility] Comment on above: Performed By: #### B MP, LIPID, ALT, URIC #### [facility] [address] [place] [address] Dr. Jorge L Carey Hemoglobin Ql (U) Negative Normal NEGATIVE [facility] Comment on above: Performed By: #### B MP, LIPID, ALT, URIC #### [facility] [address] [place] [address] Dr. Jorge L Carey Ketones Ql (U) Negative Normal NEGATIVE [facility] Comment on above: Performed By: #### B MP, LIPID, ALT, URIC #### [facility] [address] [address] [address] Jorge L Carey LEUKOCYTES Negative Normal NEGATIVE [facility] Comment on above: Performed By: #### B MP, LIPID, ALT, URIC #### [facility] [address] [address] [address] Jorge L Carey Nitrite Ql (U) Negative Normal NEGATIVE [facility] Comment on above: Performed By: #### B MP, LIPID, ALT, URIC #### [facility] [address] [address] [address] Jorge L Carey pH (U) 6.0 [pH] Normal 5-9 [facility] Comment on above: Performed By: #### B MP, LIPID, ALT, URIC #### [facility] [address] [address] [address] Jorge L Carey SPEC GRAVITY 1.020 Normal 1.005-<=1.025 [facility] Comment on above: Performed By: #### B MP, LIPID, ALT, URIC #### [facility] [address] [address] [address] Jorge L Carey UA PROTEIN Negative Normal NEGATIVE/ TRACE [facility] Comment on above: Performed By: #### B MP, LIPID, ALT, URIC #### [facility] [address] [address] [address] Jorge L Carey UR MICRO IND NOT INDICATED Normal [facility] Comment on above: Performed By: #### B MP, LIPID, ALT, URIC #### [facility] [address] [address] [address] Jorge L Carey Urobilinogen Qn (U) 1.0 {Ila'U}/dL Normal 0.2 - 1. 0 [facility] Comment on above: Performed By: #### B MP, LIPID, ALT, URIC #### [facility] [address] [place] [address] Dr. Jorge L Carey INFLUENZA A AND B AGon 07-01 INFLUANEGH SEE BELOW Normal [facility] Comment on above: Result Comment: Nega tive for Flu A protein angiten. Infection due to Flu A cannot be ruled out. Flu A angiten in the sample may be below the detection limit of the test. Performed By: #### I NFLUAB #### [facility] [address] [place] [address] Dr. Jorge L Carey [facility] SEE BELOW [facility] Comment on above: Result Comment: Nega tive for Flu B protein antigen. Infection due to Flu B cannot be ruled out. Flu B antigen in the sample may be below the detection limit of the test. Performed By: #### I NFLUAB #### [facility] [address] [place] [address] Dr. Jorge L Carey INFLUENZA A AG Negative Normal NEGATIVE SEE COMMENT [facility] Comment on above: Performed By: #### I NFLUAB #### [facility] [address] [place] [address] Dr. Jorge L Carey INFLUENZA B AG Negative Normal NEGATIVE SEE COMMENT [facility] Comment on above: Performed By: #### I NFLUAB #### [facility] [address] [place] [address] Dr. Jorge L Carey POINT OF CARE GLUCOSEon 06-17 Glucose [Mass/Vol] 130 mg/dL Critically high 74-106 [facility] Comment on above: Performed By: #### B MP, LIPID, ALT, URIC #### [facility] [address] [place] [address] Dr. Jorge L Carey PROF 14(COMP METB)on 023 Albumin [Mass/Vol] 3.7 g/dL Normal 3.4-5.0 [facility] Comment on above: Performed By: #### C IGGY, CMADM #### [facility] [address] [place] [address] Dr. Jorge L Carey Albumin/Globulin [Mass ratio] 1.2 {ratio} Normal [facility] Comment on above: Performed By: #### C IGGY, CMADM #### [facility] [address] [place] [address] Dr. Jorge L Carey ALP [Catalytic activity/Vol] 49 U/L Normal 46-116 [facility] Comment on above: Performed By: #### C MP, CMADM #### [facility] [address] [address] [address] Jorge L Carey ALT [Catalytic activity/Vol] 30 U/L Normal 16-63 [facility] Comment on above: Performed By: #### C MP, CMADM #### [facility] [address] [address] [address] Jorge L Carey Anion gap [Moles/Vol] 12.7 mmol/L Normal [facility] Comment on above: Performed By: #### C MP, CMADM #### [facility] [address] [address] [address] Jorge L Carey AST [Catalytic activity/Vol] 21 U/L Normal 15-37 [facility] Comment on above: Performed By: #### C IGGY, CMADM #### [facility] [address] [address] [address] Jorge L Carey Bilirubin [Mass/Vol] 0.5 mg/dL Normal 0.2-1.0 [facility] Comment on above: Performed By: #### C IGGY, CMADM #### [facility] [address] [address] [address] Jorge L Carey Calcium [Mass/Vol] 8.9 mg/dL Normal 8.5-10.1 [facility] Comment on above: Performed By: #### C IGGY, CMADM #### [facility] [address] [address] [address] Jorge L Carey Chloride [Moles/Vol] 100 mmol/L Normal 98-107 [facility] Comment on above: Performed By: #### C IGGY, CMADM #### [facility] [address] [address] [address] Jorge L Carey CO2 [Moles/Vol] 29.0 mmol/L Normal 21.0-32.0 [facility] Comment on above: Performed By: #### C IGGY, CMADM #### [facility] [address] [address] [address] Jorge L Carey Creatinine [Mass/Vol] 1.04 mg/dL Normal 0.70-1.30 [facility] Comment on above: Performed By: #### C MP, CMADM #### [facility] [address] [address] [address] Jorge L Carey EGFR-AF SPANISH >60 Normal >=60 [facility] Comment on above: Performed By: #### C MP, CMADM #### [facility] [address] [address] [address] Jorge L Carey EGFR-NON AF SPANISH >60 Normal >=60 [facility] Comment on above: Performed By: #### C MP, CMADM #### [facility] [address] [address] [address] Jorge L Carey Globulin (S) [Mass/Vol] 3.1 g/dL Normal [facility] Comment on above: Performed By: #### C MP, CMADM #### [facility] [address] [address] [address] Jorge L Carey Glucose [Mass/Vol] 140 mg/dL Critically high 74-106 [facility] Comment on above: Performed By: #### C MP, CMADM #### [facility] [address] [address] [address] Jorge L Carey Potassium [Moles/Vol] 3.7 mmol/L Normal 3.5-5.1 [facility] Comment on above: Performed By: #### C MP, CMADM #### [facility] [address] [address] [address] Jorge L Carey Protein [Mass/Vol] 6.8 g/dL Normal 6.4-8.2 [facility] Comment on above: Performed By: #### C MP, CMADM #### [facility] [address] [address] [address] Jorge L Carey Sodium [Moles/Vol] 138 mmol/L Normal 136-145 [facility] Comment on above: Performed By: #### C MP, CMADM #### [facility] [address] [address] [address] Jorge L Carey Urea nitrogen [Mass/Vol] 13.0 mg/dL Normal 7.0-18.0 [facility] Comment on above: Performed By: #### C MP, CMADM #### [facility] [address] [place] [address] Dr. Jorge L Carey Urea nitrogen/Creatinine [Mass ratio] 12.5 mg/mg Normal [facility] Comment on above: Performed By: #### C MP, CMADM #### [facility] [address] [place] [address] Dr. Jorge L Carey TROPONIN, HIGH SENSITIVITYon 07-01-2022 HSTROP 10.9 pg/mL Normal 4.0-76.1 [facility] Comment on above: Result Comment: CUT- OFF POINTS HAVE BEEN ESTABLISHED BASED ON THE FOURTH UNIVERSAL DEFINITIONS OF MYOCARDIAL INFARCTION. THE UPPER REFERENCE LIMIT (URL) OF TROPONIN, DEFINED THE 99TH PERCENTILE OF cTnI DISTRIBUTION IN A REFERENCE POPULATION, HAS BEEN CONFIRMED THE DECISION THRESHOLD FOR HI DIAGNOSIS. Performed By: #### B MP, LIPID, ALT, URIC #### [facility] [address] [place] [address] Dr. Jorge L Carey XR CHEST 1 [...] FILIPPO MASTERS Date: 2022-07-01 19:57 Normal [facility] CBC AUTO DIFFon 04-18-2022 BASO # 0.0 103/ul Normal 0.0-0.1 [facility] Comment on above: Performed By: #### C BC #### [facility] [address] [place] [address] Dr. Jorge L Carey Basophils/100 WBC (Bld) 0.7 % Normal 0.2-2.0 [facility] Comment on above: Performed By: #### C BC #### [facility] [address] [place] [address] Dr. Jorge L Carey EO # 0.2 103/ul Normal 0.0-0.7 [facility] Comment on above: Performed By: #### C BC #### [facility] [address] [place] [address] Dr. Jorge L Carey Eosinophils/100 WBC (Bld) 2.6 % Normal 0.9-7.0 [facility] Comment on above: Performed By: #### C BC #### [facility] [address] [place] [address] Dr. Jorge L Carey Erythrocyte distribution width (RBC) [Ratio] 11.5 % Normal 11.0-15.0 [facility] Comment on above: Performed By: #### C BC #### [facility] [address] [place] [address] Dr. Jorge L Carey Hematocrit (Bld) [Volume fraction] 44.7 % Normal 42.0-54.0 [facility] Comment on above: Performed By: #### C BC #### [facility] [address] [place] [address] Dr. Jorge L Carey Hemoglobin (Bld) [Mass/Vol] 15.5 g/dL Normal 14.0-18.0 [facility] Comment on above: Performed By: #### C BC #### [facility] [address] [place] [address] Dr. Jorge L Carey IG # 0.01 10e3/ul Normal 0.00-0.03 [facility] Comment on above: Performed By: #### C BC #### [facility] [address] [place] [address] Dr. Jorge L Carey IG % 0.2 % Normal 0.0-0.5 [facility] Comment on above: Performed By: #### C BC #### [facility] [address] [place] [address] Dr. Jorge L Carey LYMPH # 1.3 103/ul Normal 1.2-3.8 [facility] Comment on above: Performed By: #### C BC #### [facility] [address] [place] [address] Dr. Jorge L Carey Lymphocytes/100 WBC (Bld) 21.3 % Normal 20.5-60.0 [facility] Comment on above: Performed By: #### C BC #### [facility] [address] [place] [address] Dr. Jorge L Carey MANUAL DIFF REQ NO Normal [facility] Comment on above: Performed By: #### C BC #### [facility] [address] [place] [address] Dr. Jorge L Carey MCH (RBC) [Entitic mass] 30.1 pg Normal 25.9-34.0 [facility] Comment on above: Performed By: #### C BC #### [facility] [address] [place] [address] Dr. Jorge L Carey MCHC (RBC) [Mass/Vol] 34.7 g/dL Normal 29.9-35.2 [facility] Comment on above: Performed By: #### C BC #### [facility] [address] [place] [address] Dr. Jorge L Carey MCV (RBC) [Entitic vol] 86.8 fL Normal 80.0-94.0 [facility] Comment on above: Performed By: #### C BC #### [facility] [address] [place] [address] Dr. Jorge L Carey MONO # 0.4 103/ul Normal 0.3-0.8 [facility] Comment on above: Performed By: #### C BC #### [facility] [address] [place] [address] Dr. Jorge L Carey Monocytes/100 WBC (Bld) 7.2 % Normal 1.7-12.0 [facility] Comment on above: Performed By: #### C BC #### [facility] [address] [place] [address] Dr. Jorge L Carey NEUT # 4.1 103/ul Normal 1.4-6.5 [facility] Comment on above: Performed By: #### C BC #### [facility] [address] [place] [address] Dr. Jorge L Carey Neutrophils/100 WBC (Bld) 68.0 % Normal 43.0-75.0 [facility] Comment on above: Performed By: #### C BC #### [facility] [address] [address] [address] Jorge L Carey Platelet mean volume (Bld) [Entitic vol] 12.0 fL Normal 9.5-13.5 [facility] Comment on above: Performed By: #### C BC #### [facility] [address] [address] [address] Jorge L Carey PLT 163 103/ul Normal 150-450 [facility] Comment on above: Performed By: #### C BC #### [facility] [address] [place] [address] Dr. Jorge L Carey RBC 5.15 106/ul Normal 4.70-6.10 [facility] Comment on above: Performed By: #### C BC #### [facility] Laboratory [address] [place] [address] Dr. Jorge L Carey WBC 6.1 103/ul Normal 4.0-11.0 [facility] Comment on above: Performed By: #### C BC #### [facility] [address] [place] [address] Dr. Jorge L Carey GLYCOHEMOGLOBIN A1Con 2021 ADA RECOMMENDATION SEE BELOW Normal [facility] Comment on above: Result Comment: ADA RECOMMENDED LIMIT 4.0 - 6.0 ADA THERAPEUTIC TARGET < 7.0 ACTION SUGGESTED > 7.0 Performed By: #### B MP, LIPID, ALT, URIC #### [facility] [address] [place] [address] Dr. Jorge L Carey Glucose [Mass/Vol] 146 mg/dL Normal The [facility] Comment on above: Performed By: #### B MP, LIPID, ALT, URIC #### [facility] [address] [place] [address] Dr. Jorge L Craey HbA1c (Bld) [Mass fraction] 6.7 % Critically high 4.5-6.2 [facility] Comment on above: Performed By: #### B MP, LIPID, ALT, URIC #### [facility] [address] [place] [address] Dr. Jorge L Carey LIPID PROFILEon 04-18-2022 CHOL-HDL RATIO NORM SEE BELOW Normal [facility] Comment on above: Result Comment: 3.3 - 4.4 LOW RISK 4.4 - 7.1 AVERAGE RISK 7.1 - 11.0 MODERATE RISK >11.0 HIGH RISK Performed By: #### B MP, LIPID, ALT, URIC #### [facility] [address] [address] [address] Jorge L Carey Cholesterol [Mass/Vol] 117 mg/dL Normal <=200 [facility] Comment on above: Performed By: #### B MP, LIPID, ALT, URIC #### [facility] [address] [address] [address] Jorge L Carey Cholesterol in HDL [Mass/Vol] 48 mg/dL Normal 40-60 [facility] Comment on above: Performed By: #### B MP, LIPID, ALT, URIC #### [facility] [address] [place] [address] Dr. Jorge L Carey Cholesterol in LDL [Mass/Vol] 50.6 mg/dL Normal [facility] Comment on above: Performed By: #### B MP, LIPID, ALT, URIC #### [facility] [address] [address] [address] Jorge L Carey Cholesterol.total/Ch olesterol in HDL [Mass ratio] 2.4 {ratio} Normal [facility] Comment on above: Performed By: #### B MP, LIPID, ALT, URIC #### [facility] [address] [address] [address] Jorge L Carey HDL NORMAL > or = 60 mg/dl - LO W CARDIOVASCULAR RISK <40 mg/dl - HIGH CARDIOVASCULAR RISK Normal [facility] Comment on above: Performed By: #### B MP, LIPID, ALT, URIC #### [facility] [address] [place] [address] Dr. Jorge L Carey LDL CALC NORMAL SEE BELOW Normal [facility] Comment on above: Result Comment: <100 mg/dl OPTIMAL 100 - 129 mg/dl NEAR OR ABOVE OPTIMAL 130 - 159 mg/dl BORDERLINE HIGH 160 - 189 mg/dl HIGH >190 mg/dl VERY HIGH Performed By: #### B MP, LIPID, ALT, URIC #### [facility] [address] [place] [address] Dr. Jorge L Carey Triglyceride [Mass/Vol] 92 mg/dL Normal <=150 [facility] Comment on above: Performed By: #### B MP, LIPID, ALT, URIC #### [facility] [address] [address] [address] Jorge L Carey VLDL CALC 18.4 mg/dL Normal [facility] Comment on above: Performed By: #### B MP, LIPID, ALT, URIC #### [facility] [address] [address] [address] Jorge L Carey MICROALBUMIN, RAND URon 11-0 mALB <1.3 Normal <=30.0 [facility] Comment on above: Performed By: #### M ALBR #### [facility] [address] [place] [address] Dr. Jorge L Carey PROF CHEM 8 (BAS METB)on Anion gap [Moles/Vol] 9.5 mmol/L Normal [facility] Comment on above: Performed By: #### B MP, LIPID, ALT, URIC #### [facility] [address] [place] [address] Dr. Jorge L Carey Calcium [Mass/Vol] 8.6 mg/dL Normal 8.5-10.1 [facility] Comment on above: Performed By: #### B MP, LIPID, ALT, URIC #### [facility] [address] [address] [address] Jorge L Carey Chloride [Moles/Vol] 102 mmol/L Normal 98-107 [facility] Comment on above: Performed By: #### B MP, LIPID, ALT, URIC #### [facility] [address] [place] [address] Dr. Jorge L Carey CO2 [Moles/Vol] 30.8 mmol/L Normal 21.0-32.0 [facility] Comment on above: Performed By: #### B MP, LIPID, ALT, URIC #### [facility] [address] [place] [address] Dr. Jorge L Carey Creatinine [Mass/Vol] 0.95 mg/dL Normal 0.70-1.30 [facility] Comment on above: Performed By: #### B MP, LIPID, ALT, URIC #### [facility] [address] [address] [address] Jorge L Carey EGFR-AF SPANISH >60 Normal >=60 [facility] Comment on above: Performed By: #### B MP, LIPID, ALT, URIC #### [facility] [address] [address] [address] Jorge L Carey EGFR-NON AF SPANISH >60 Normal >=60 [facility] Comment on above: Performed By: #### B MP, LIPID, ALT, URIC #### [facility] [address] [address] [address] Jorge L Carey Glucose [Mass/Vol] 142 mg/dL Critically high 74-106 [facility] Comment on above: Performed By: #### B MP, LIPID, ALT, URIC #### [facility] [address] [address] [address] Jorge L Carey Potassium [Moles/Vol] 4.3 mmol/L Normal 3.5-5.1 [facility] Comment on above: Performed By: #### B MP, LIPID, ALT, URIC #### [facility] [address] [address] [address] Jorge L Carey Sodium [Moles/Vol] 138 mmol/L Normal 136-145 [facility] Comment on above: Performed By: #### B MP, LIPID, ALT, URIC #### [facility] [address] [address] [address] JorgeL Carey Urea nitrogen [Mass/Vol] 14.0 mg/dL Normal 7.0-18.0 [facility] Comment on above: Performed By: #### B MP, LIPID, ALT, URIC #### [facility] [address] [address] [address] Jorge L Carey Urea nitrogen/Creatinine [Mass ratio] 14.7 mg/mg Normal [facility] Comment on above: Performed By: #### B MP, LIPID, ALT, URIC #### [facility] [address] [address] [address] Jorge L Carey SGPTon 04-18-2022 ALT [Catalytic activity/Vol] 27 U/L Normal 16-63 [facility] Comment on above: Performed By: #### B MP, LIPID, ALT, URIC #### [facility] [address] [address] [address] Jorge L Carey URIC ACID SERUMon 04-18-2022 Urate [Mass/Vol] 5.5 mg/dL Normal 3.5-7.2 [facility] Comment on above: Performed By: #### B MP, LIPID, ALT, URIC #### [facility] [address] [address] [address] Jorge L Carey GLYCOHEMOGLOBIN A1Con 2021 ADA RECOMMENDATION SEE BELOW Normal The [facility] Comment on above: Result Comment: ADA RECOMMENDED LIMIT 4.0 - 6.0 ADA THERAPEUTIC TARGET < 7.0 ACTION SUGGESTED > 7.0 Performed By: #### B MP, LIPID, ALT, URIC #### [facility] [address] [address] [address] Jorge L Carey Glucose [Mass/Vol] 160 mg/dL Normal The [facility] Comment on above: Performed By: #### B MP, LIPID, ALT, URIC #### [facility] [address] [address] [address] Jorge L Carey HbA1c (Bld) [Mass fraction] 7.2 % Critically high 4.5-6.2 [facility] Comment on above: Performed By: #### B MP, LIPID, ALT, URIC #### [facility] [address] [address] [address] Jorge L Carey Ambulatory Visit Summaryon 0 10-06-2021 Ambulatory Visit Summary FELIPE QUAN :1955 Visit Date:10/06/2021 Ambulatory Visit Instructions Your Diagnosis BPH with urinary obstruction Elevated PSA Tests Performed Urnls Dip Stick Auto w/o Microscopy POC [id number] Your Care Team Attending Physician - JOSE [...] Rushing Where: [facility] Patient Educationon 10-07-19 Patient Education [...] Follow these instructions at home: ? Take [id number]-[id number] and prescription medicines only as told by [...] d (more content not included)... Normal [facility] Urology Office/Clinic Noteon 10-06-2021 Urology Office/Clinic Note [...] EDT [facility] [address] [place] [address]- [phone] Additional Instructions: PSA Patient Education Benign Prostatic [...] 08:08:00) (more content not included)... Normal [facility] Comment on above: Result Comment: Elec tronically Signed By: Hola AMBRIZ MD\.br\Date and Time Signed: 10/06/21 08:39 EDT\.br\Electronically Co-Signed By: Ciarra Mckeon MA\.br\Date and Time Co-Signed: 10/06/21 08:38 EDT Lab Reportson 09-19-2021 Lab Reports [id number] D:127 Normal [facility] GLYCOHEMOGLOBIN A1Con 2021 ADA RECOMMENDATION ADA THERAPEUTIC TARG ET 6.0 - 7.0 ACTION SUGGESTED > 7.0 Normal [facility] Comment on above: Performed By: #### B MP, LIPID, ALT, URIC #### [facility] [address] [address] [address] Jorge L Carey Glucose [Mass/Vol] 177 mg/dL Normal [facility] Comment on above: Performed By: #### B MP, LIPID, ALT, URIC #### [facility] [address] [address] [address] Jorge L Carey HbA1c (Bld) [Mass fraction] 7.8 % Critically high <=6.0 [facility] Comment on above: Performed By: #### B MP, LIPID, ALT, URIC #### [facility] [address] [address] [address] Jorge L Carey [facility] 09-17-2020 Glucose [Mass/Vol] 151 mg/dL Normal [facility] Comment on above: Result Comment: PERF ORMED BY: [place] [address] PATHOLOGIST [employer] SUSAN SEXTON M.D. Performed By: #### O MOE GLYCO #### [place] [address] [facility] HbA1c (Bld) [Mass fraction] 6.9 % High 4.3-5.6 [facility] Comment on above: Result Comment: Incr eased risk for diabetes: 5.7 - 6.4 diabetes: >6.4 glycemic control for adults with diabetes: <7.0 Performed By: #### O MOE GLYCO #### [facility] [address] [id number] [facility] Vital Signs Date Time Vital Sign Value Performing Clinician Facility 07-08-2023 09:00-0500 Body height 190.5 cm Bogdan Ball Other [facility] Other 07-08-2023 09:00-0500 Body mass index (BMI) [Ratio] 32.62 kg/m2 Bogdan Ball Other [facility] Other 07-08-2023 09:00-0500 Body weight 118.39 kg Bogdan Ball Other [facility] Other 07-08-2023 09:00-0500 Diastolic blood pressure 81 mm[Hg] Bogdan Ball Other [facility] Other 07-08-2023 09:00-0500 Respiratory rate 12 /min Bogdan Ball Other [facility] Other 07-08-2023 09:00-0500 Systolic blood pressure 117 mm[Hg] Bogdan Ball Other [facility] Other 05-01-2023 08:30-0500 Body height 190.5 cm Bogdan Ball Other [facility] Other 05-01-2023 08:30-0500 Body mass index (BMI) [Ratio] 32.19 kg/m2 Bogdan Ball Other [facility] Other 05-01-2023 08:30-0500 Body weight 116.85 kg Bogdan Ball Other [facility] Other 05-01-2023 08:30-0500 Diastolic blood pressure 81 mm[Hg] Bogdan Ball Other [facility] Other 05-01-2023 08:30-0500 Respiratory rate 12 /min Bogdan Ball Other [facility] Other 05-01-2023 08:30-0500 Systolic blood pressure 135 mm[Hg] Bogdan Ball Other [facility] Other 12-26-2022 08:30-0400 Body height 190.5 cm Bogdan Ball Other [facility] Other 12-26-2022 08:30-0400 Body mass index (BMI) [Ratio] 31.54 kg/m2 Bogdan Ball Other [facility] Other 12-26-2022 08:30-0400 Body weight 114.49 kg Bogdan Ball Other [facility] Other 12-26-2022 08:30-0400 Diastolic blood pressure 85 mm[Hg] Bogdan Ball Other [facility] Other 12-26-2022 08:30-0400 Respiratory rate 12 /min Bogdan Ball Other [facility] Other 12-26-2022 08:30-0400 Systolic blood pressure 139 mm[Hg] Bogdan Ball Other [facility] Other 11-09-2022 10:58-0400 Blood Pressure Location Hola AMBRIZ [facility] 11-09-2022 10:58-0400 Diastolic blood pressure 80 mm[Hg] Hola AMBRIZ [facility] 11-09-2022 10:58-0400 Heart rate 78 /min Hola AMBRIZ [facility] 11-09-2022 10:58-0400 Respiratory rate 16 /min Hola AMBRIZ [facility] 11-09-2022 10:58-0400 Systolic blood pressure 130 mm[Hg] Hola AMBRIZ [facility] 10-05-2022 12:15-0400 Body height 190.5 cm Bogdan Ball Other [facility] [employer] Other 10-05-2022 12:15-0400 Body mass index (BMI) [Ratio] 31.17 kg/m2 Bogdan Ball Other [facility] [employer] Other 10-05-2022 12:15-0400 Body weight 113.13 kg Bogdan Ball Other [facility] Other 10-05-2022 12:15-0400 Diastolic blood pressure 95 mm[Hg] Bogdan Ball Other [facility] [employer] Other 10-05-2022 12:15-0400 Respiratory rate 12 /min Bogdan Ball Other [facility] Other 10-05-2022 12:15-0400 Systolic blood pressure 168 mm[Hg] Bogdan Ball Other [facility] Other 08-23-2022 08:30-0500 Body height 190.5 cm Bogdan Ball Other [facility] Other 08-23-2022 08:30-0500 Body mass index (BMI) [Ratio] 31.42 kg/m2 Bogdan Ball Other [facility] Other 08-23-2022 08:30-0500 Body weight 114.04 kg Bogdan Ball Other [facility] Other 08-23-2022 08:30-0500 Diastolic blood pressure 86 mm[Hg] Bogdan Ball Other [facility] Other 08-23-2022 08:30-0500 Respiratory rate 12 /min Bogdan Ball Other [facility] Other 08-23-2022 08:30-0500 Systolic blood pressure 132 mm[Hg] Bogdan Ball Other [facility] Other 10-06-2021 08:14-0400 Blood Pressure Location [facility] 10-06-2021 08:14-0400 Diastolic blood pressure 98 mm[Hg] [facility] 10-06-2021 08:14-0400 Heart rate 78 /min [facility] 10-06-2021 08:14-0400 Systolic blood pressure 145 mm[Hg] Hola AMBRIZ [facility] Encounters Encounter Date Encounter Type Care Provider Facility Start: 07-08-2023 End: 07-08-2023 ambulatory Bogdan Ball Other [facility] Other Start: 07-08-2023 Office outpatient vi sit 25 minutes Bogdan Ball [facility] Start: 06-24-2023 End: 06-25-2023 ambulatory Dm Cyr MD Facility: [facility] Start: 05-20-2023 End: 05-21-2023 ambulatory Dm Cyr MD Facility: [facility] Start: 05-10-2023 End: 05-10-2023 ambulatory Bogdan Green Other [facility] Other Start: 05-10-2023 Office outpatient vi sit 15 minutes Bogdan Ball [facility] Start: 05-01-2023 End: 05-01-2023 ambulatory Bogdan Green Other [facility] Other Start: 05-01-2023 Patient encounter procedure Bogdan Ball [facility] Start: 04-24-2023 End: 04-24-2023 ambulatory Bogdan Green Other [facility] Other Start: 04-24-2023 Telephone encounter Bogdan Peter [facility] Start: 02-25-2023 End: 02-25-2023 ambulatory Bogdan Green Other [facility] Other Start: 02-25-2023 Telephone encounter Bogdan Green [facility] Start: 12-27-2022 End: 12-27-2022 ambulatory Bogdan Green Other [facility] Other Start: 12-27-2022 Telephone encounter Bogdan Ball [facility] Start: 12-26-2022 End: 12-26-2022 ambulatory Bogdan Ball Other [facility] Other Start: 12-26-2022 Office outpatient vi sit 25 minutes Bogdan Ball [facility] Start: 11-19-2022 End: 11-19-2022 ambulatory Bogdan Ball Other [facility] Other Start: 11-19-2022 Telephone encounter Bogdan Ball [facility] Start: 11-09-2022 ambulatory Hola AMBRIZ Facili ty:[facility] Start: 11-09-2022 End: 11-09-2022 Patient encounter procedure Hola AMBRIZ [facility] Start: 10-22-2022 End: 10-22-2022 ambulatory Bogdan Green Other [facility] Other Start: 10-22-2022 Telephone encounter Bogdan Ball [facility] Start: 10-18-2022 End: 10-18-2022 ambulatory Bogdan Green Other [facility] Other Start: 10-18-2022 Telephone encounter Bogdan Ball [facility] Start: 10-05-2022 End: 10-05-2022 ambulatory Bogdan Peter Other [facility] Other Start: 10-05-2022 Office outpatient vi sit 15 minutes Bogdan Ball [facility] Start: 09-27-2022 End: 09-27-2022 ambulatory Bogdan Peter Other [facility] Other Start: 09-27-2022 Telephone encounter Bogdan Ball [facility] Start: 09-25-2022 End: 09-25-2022 ambulatory Bogdan Peter Other [facility] Other Start: 09-25-2022 Telephone encounter Bogdan Ball [facility] Start: 09-21-2022 End: 09-21-2022 ambulatory Bogdan Ball Other [facility] Other Start: 09-21-2022 Telephone encounter Bogdan Ball [facility] Start: 08-23-2022 End: 08-23-2022 ambulatory Bogdan Ball Other [facility] Other Start: 08-23-2022 Office outpatient vi sit 25 minutes Bogdan Green [facility] Start: 08-17-2022 End: 08-18-[address] BOGDAN GREEN Facility:[facility] Start: 08-14-2022 End: 08-14-2022 ambulatory Bogdan Green Other [facility] Other Start: 08-14-2022 Telephone encounter Bogdan Green [facility] Start: 07-01-2022 End: 07-01-[address] BOGDAN GREEN Facility:[facility] Start: 04-25-2022 Adult health examination Bogdan Green Other [facility] Other Start: 04-18-2022 End: 04-19-[address] BOGDAN GREEN Facility:[facility] Start: 01-20-2022 End: 01-21-2022 ambulatory NONE LISTED REQUEST Facility:[facility] Start: 10-06-2021 ambulatory Hola AMBRIZ Facility :[facility] Start: 10-06-2021 End: 10-07-2021 ambulatory Hola AMBRIZ Facility:[facility] Start: 10-06-2021 End: 10-06-2021 Patient encounter procedure Hola AMBRIZ [facility] Start: 09-16-2021 End: 09-17-[address] HOLA AMBRIZ . Facility:[facility] Start: 09-15-2021 End: 09-16-2021 ambulatory NONE LISTED REQUEST Facility:[facility] Start: 08-29-[address] BOGDAN GREEN Facili ty:[facility] Procedures Date Procedure Procedure Detail Performing Clinician Start: 09-16-[address] PISANO IN [place] Comment on above: Performed By: #### B MP, LIPID, ALT, URIC #### [facility] [address] [place] [address] Dr. Jorge L Carey Start: 03-29-2017 General [...] Immunization Date Immunization Notes Care Provider Fa [facility] 04-29-2023 zoster vaccine recombinant Bogdan Green Other [facility] Other 04-26-2023 influenza, high dose seasonal, preservative-free Bogdan Green Other [facility] Other 02-26-2023 zoster vaccine recombinant Bogdan Green Other [facility] Other 04-25-2022 pneumococcal 20-alber nt conjugate vaccine Hola AMBRIZ [facility] 04-16-2022 influenza virus vaccine, split virus (incl. purified surface antigen) Bogdan Green Other [facility] Other 04-16-2022 influenza virus vaccine, unspecified formulation Hola AMBRIZ [facility] 03-23-2022 SARS-CoV-2 (COVID-19 ) [id number] Hola AMBRIZ [facility] 05-08-2021 SARS-CoV-2 (COVID-19 ) mRNA BNT-162b2 vax Hola AMBRIZ [facility] 04-22-2021 influenza virus vaccine, split virus (incl. purified surface antigen) Bogdan Green Other [facility] Other 04-22-2021 influenza virus vaccine, unspecified formulation Hola AMBRIZ [facility] 03-30-2021 influenza virus vaccine, unspecified formulation Hola AMBRIZ [facility] 09-16-2020 COVID-19, mRNA, LNP- S, PF, 30 mcg/0.3 mL dose; 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: [Pfizer-BioNTech COVID-19 Vaccine] Hola AMBRIZ [facility] Comment on above: Reason for Medicatio n: Prophylaxis 08-26-2020 COVID-19, mRNA, LNP- S, PF, 30 mcg/0.3 mL dose; 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: [Pfizer-BioNTech COVID-19 Vaccine] Hola AMBRIZ [facility] Comment on above: Reason for Medicatio n: Prophylaxis 04-16-2020 influenza virus vaccine, split virus (incl. purified surface antigen) Bogdan Green Other [facility] Other 04-16-2020 influenza virus vaccine, unspecified formulation Hola AMBRIZ [facility] pneumococcal Conjuga te, unspecified formulation; 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: [Need for prophylactic vaccination against Streptococcus pneumoniae (pneumococcus)] Bogdan Green Other [facility] Other Payers Date Payer Category Payer Medicare 2022 Unknown 2021 Medicare [id number] 2020 Unknown [id number] 1959 Medicare [id number] 1959 Self-pay [id number] 1959 Unknown [id number] 1959 Unknown [id number] 1956 Unknown [id number] 2.16.84 [id number] 1956 Unknown [id number] 2.16.84 [id number] 1956 Unknown [id number] 2.16.84 [id number] 1956 Unknown [id number] 2.16.84 [id number] 1956 Unknown [id number] 2.16.84 [id number] 1956 Unknown [id number] 2.16.8 [id number] 1956 Unknown [id number] 2.16.8 [id number] 1956 Unknown [id number] 2.16. [id number] 1955 Unknown [id number] 2.16. [id number] Blue Cross Blue Shield [id number] Unknown [id number] 2.16.84 [id number] Unknown [id number] 2.16.84 [id number] Social History Date Type Detail Facility Start: 10-06-2021 End: 11-09-2022 Tobacco smoking status Never smoked tobacco (finding) [facility] Sex Assigned At Male [facility] Tobacco smoking status Never [facility] Functional Status Date Assessment Result Facility 11-09-2022 Functional Status N/A [facility] Clinical Notes 10-06-2021 to 07-08-2023 Note Date [...] index [BMI] 32.0-32.9, adult (ICD-10 - Z68.32) [facility] Other 11-24-2023 Evaluation note* Encounter Date Diagnosis [...] Microalbumin, Dilated eye exam and Foot exam [facility] Other 11-15-2023 Evaluation note* Encounter Date Diagnosis [...] flares Sep, Thrombocytopenia, unspecified (ICD-10 - D69.6) [facility] Other 11-15-2023 Evaluation note* Encounter Date Diagnosis [...] flares Sep, Thrombocytopenia, unspecified (ICD-10 - D69.6) [facility] Other 11-08-2023 Evaluation note* Encounter Date Diagnosis Assessment Notes Treatment Notes Treatment Clinical Notes Apr, Screening PSA (prostate specific antigen) (ICD-10 - Z12.5) Apr, Type 2 diabetes mellitus with hyperglycemia, without long-term current use of insulin (ICD-10 - E11.65) Apr, Elevated cholesterol (ICD-10 - E78.00) Apr, Primary hypertension (ICD-10 - I10) Sep, Thrombocytopenia, unspecified (ICD-10 - D69.6) Thrombocytopenia [facility] Other 07-12-2023 Evaluation note* Encounter Date Diagnosis [...] [BMI] 31.0-31.9, adult (ICD-10 - Z68.31) 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 Where to find more information [employer] [employer]: www.cancer.org [employer] [employer]: www.auanet.org Contact a health care [...] provider. Document Revised: 11/27/2021 Document Reviewed: 11/27/2021 [email or web address] Patient Education 2022 [employer]. Follow Up Care 10/06/2021 08:40:21 With:JOSE MCMANUS, Hola Rushing, URL Address: [facility] [address] , [place] [address]- When: Unknown [facility] 05-08-2023 Evaluation note* Encounter Date Diagnosis Assessment Notes Treatment Notes Treatment Clinical Notes October, Primary hypertension (ICD-10 - I10) [facility] Other 05-04-2023 Evaluation note* Encounter Date Diagnosis Assessment Notes Treatment Notes Treatment Clinical Notes October, Primary hypertension (ICD-10 - I10) [facility] Other 04-21-2023 Evaluation note* Encounter Date Diagnosis [...] and Glimepiride appear to be controlling BS. 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) [facility] Other 04-11-2023 Evaluation note* Encounter Date Diagnosis Assessment Notes Treatment Notes Treatment Clinical Notes Sep, Type 2 diabetes mellitus with hyperglycemia, without long-term current use of insulin (ICD-10 - E11.65) [facility] Other 04-07-2023 Evaluation note* Encounter Date Diagnosis Assessment Notes Treatment Notes Treatment Clinical Notes Sep, Type 2 diabetes mellitus with hyperglycemia (ICD-10 - E11.65) [facility] Other 03-09-2023 Evaluation note* Encounter Date Diagnosis [...] Reviewed red flag symptoms and nerve impingement [facility] Other 02-28-2023 Evaluation note* Encounter Date Diagnosis Assessment Notes Treatment Notes Treatment Clinical Notes Jul, Type 2 diabetes mellitus with hyperglycemia, without long-term current use of insulin (ICD-10 - E11.65) [facility] Other 04-22-2022 Hospital Discharge instructions Patient Education [...] urethra. Follow these instructions at home: Take wagk-hkj-huvxgqm and prescription medicines only as told by [...] 06/03/2006 Document Revised: 04/28/2019 Document Reviewed: 07/08/2017 [email or web address] Patient Education M[place]rid[place]. Follow Up Care 10/03/2020 15:00:49 With:JOSE MCMANUS, Hola Rushing, URL Address: [facility] [address], [place] [address]- [phone] When:10/06/2022 [facility] evaluation + Plan note Future Appointments Appointment Date:10/12/2022 08:00:00 AM Scheduled Provider:Hola AMBRIZ MD Location:[facility] Appointment Type:URO Office Visit Diagnostic Tests Pending * PSA Total 10/06/21 [facility] evaluation + Plan note Future Appointments Appointment Date:11/18/2023 08:45:00 AM Scheduled Provider:Hola AMBRIZ MD Location:[facility] Appointment Type:URO Office Visit Diagnostic Tests Pending * PSA Free & Total 11/09/22 [facility] evaluation noteNortCareerStarter Other Evaluation noteNo InformationNort ticketscript Other History general Narrative - Reported* Type [...] CYSTOSCOPY 2016 Hospitalization History SEE SURGICAL HX [facility] Other History general Narrative - ReportedNoCareerStarter Other History general Narrative - Reported* Type [...] CYSTOSCOPY 2016 Hospitalization History SEE SURGICAL HX [facility] Other Hospital course Narrative No data available for this section [facility] progress note No data available for this section [facility] Summary Purpose Family History No Family History [...] well ness visit, initial (Z00.00) Referral Organization [facility] jono Referring Provider First Name Bogdan Referring Provider Last Name Peter Referring Provider Specialty Internal Me dicine Referred Organization [facility] Referred Provider Swapnil French Referred Address [address] [place], [place],[address] Referred Provider Specialty Pain Medicin e Referral [...] Notes Include XR lumbar sp ine f: [phone] Additional Source Comments (unrecognized sect ion and content) No Status Records FoundNo Status Records FoundNo Status Records FoundNo Status Records Found INFORMATION SOURCE (unrecogn ized section and content) DATE CREATED AUTHOR 07/30/2021 [facility] DATE CREATED AUTHOR AUTHOR'S ORGANIZ ATION [facility]/22/2022 [facility] DATE CREATED AUTHOR AUTHOR'S ORGANIZ ATION [facility] DATE CREATED AUTHOR AUTHOR'S ORGANIZ ATION 07/09/2023 [facility] REASON FOR VISIT (unrecogniz ed section and content) Elevated blood -[phone] [phone] PositiveWellnesslabsLab ResultsBP readingsrefillelevated BPMedication4 MONTH FOLLOW UP Patient Care team informatio n (unrecognized section and content) Personnel Name: PETER SANTOS BOGDAN Address: Address: [address] [place], [place] [address] FOR RECORDS PERTAINING TO PATIENTS WHO [...] BE BASED ON THE PRIMARY CLINICAL RECORDS. [facility]. provides no warranty or guarantee of the accuracy or completeness of information in this document.
[2023-07-29 09:25] VITALS: BP 147/88; PULSE 88; RESP 16; TEMP 36.3; O2SAT 98
[2023-07-29 09:43] LABS: Glucometer 202 mg/dL (74-106)
[2023-07-29 09:58] VITALS: BP 163/83; BP 166/101; PULSE 84; PULSE 88; RESP 18; O2SAT 97
[2023-07-29] MEDS: LIDOCAINE HCL 2% PF 100 MG/5 ML VIAL 1 ML INJ (10:06)
[2023-07-29] MEDS: BUPIVACAINE HCL 0.25% PF 25 MG/10 ML VIAL 4 ML INJ (10:06)
[2023-07-29] MEDS: TRIAMCINOLONE ACETONIDE 40 MG/ML VIAL INJ (10:06)
[2023-07-29] MEDS: IOHEXOL 240 MG/ML - 10 ML VIAL INJ (10:06)
--- NOTE | 2023-07-29 10:10 | P.ON_ITS ---
Date of procedure: 07/29/23 Pre-op diagnosis: Sacroiliitis, bilateral Post-op diagnosis: same as pre-op Procedure: Procedure: Bilateral sacroiliitis Medications: Bupivacaine 0.25% 3cc, kenalog 40mg x2 After informed consent was obtained, the patient was brought to the medical pro cedure unit and placed in the prone position, when a timeout was completed verifying correct patient, procedure, site, positioning, implant, and/or special equipment.? The skin overlying the area was prepped and draped in standard sterile fashion using alcohol.? A 25-gauge needle was inserted towards the left sacroiliac joint under direct fluoroscopic imaging.? Needle tip was advanced until the joint was encountered.? We instilled a total of 3 mL of solution.? The same procedure was then completed on the right side.? Postoperatively needles were removed.? The patient tolerated the procedure well without complication.? The patient reported reduction in pain symptoms postoperatively. Anesthesia: Local Surgeon: Dm Cyr Pathology: none sent Condition: stable Disposition: no change
== END 2023-07-29 10:14 | disposition home or self-care (01) ==
PROVIDERS: PCP Internal Medicine; Visit Provider Anesthesiology
DX: M46.1 Sacroiliitis, not elsewhere classified (principal); Z79.4 Long term (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
CPT/HCPCS: 27096; 36415; 82948; J0665; J3301; Q9966

== ENCOUNTER 2023-08-19 08:17 | Day surgery (SDC) | payer MEDICARE, BC, SELFPAY ==
--- OUTSIDE RECORDS SUMMARY | 2023-08-19 08:22 | XMS_ITS | CCD ---
Author Name Unknown Address [id number] [place] [address] Organization [facility] Care Team Providers Care Central Aisle Cashier Name Role Phone BOGDAN GREEN Primary Care [...] Care Unavailable BALL, DR ODONNELL Consulting Unavailable JOSE ., DR VAUGHN Admitting Unavailable AMBRIZ ., [...] Medication Allergies] Propensity to adverse reactions (disorder) [facility] Repository (2 sources) patient allergy list reviewed by nurse or physicia Propensity to adverse reactions Comment:Done [employer] Other Medications Current Medications Medication Drug Class(es) Dates Sig (Normalized) Sig (Original) allopurinol 100 mg oral tablet (12 sources) Xanthine Oxidase Inhibitor Start: 10-06-2021 take 1 mg by mouth twice daily allopurinol 100 mg Tab mg tab(s), Oral, BID, Refills(s) 0 Start Date: 10/06/21 Status: Ordered take 1 tablet by osbaldo th every twenty-four hours Allopurinol 100 MG 1 tablet Orally Once a day for 30 days Active amLODIPine 5 mg oral tablet (13 sources) Dihydropyridine Calcium Channel Andrew Start: 10-22-2022 take 1 tablet by mouth every twenty-four hours amLODIPine Besylate 5 MG 1 tablet Orally Once a day October, Active atorvastatin 10 mg oral tablet (20 sources) HMG-CoA Reductase Inhibitor Start: 11-09-2022 atorvastatin 10 mg Tab Refills(s) 0 Start Date: 11/09/22 Status: Ordered benazepril hydrochloride 5 mg oral tablet (20 sources) Angiotensin Converting Enzyme Inhibitor Start: 03-25-2019 [...] Active 0.5 ml dulaglutide 3 mg/ml auto-injector (20 sources) GLP-1 Receptor Agonist Start: 07-08-2023 inject 1.5 mg by subcutaneous injection every week Trulicity 1.5 MG/0.5ML 1.5MG Subcutaneous weekly for 28 days Jun, Active Start: 07-08-2023 inject 0.75 mg by cifuentes bcutaneous injection every week Trulicity 0.75 MG/0.5ML 0.75 [...] 28 Active finasteride 5 mg oral tablet (12 sources) 5-alpha Reductase Inhibitor Start: 11-09-2022 End: 11-04-2023 take 1 tablet by mouth once daily finasteride 5 mg Tab 5 mg = 1 tab(s), Oral, Daily, X 90 day(s), # 90 tab(s), Refills(s) 3, Pharmacy: [facility]/pharmacy #[id number], 195, cm, 11/09/22 11:00:00 EDT, Height/Length Dosing, 111, kg, 11/09/22 11:00:00 EDT, Weight Dosing Start Date: 11/09/22 Stop Date: 11/04/23 Status: Ordered Start: 10-06-2021 take 1 tablet by osbaldo once daily finasteride 5 mg Tab 5 mg = 1 tab(s), Oral, Daily, # 90 tab(s), Refills(s) 3, Pharmacy: [facility]/pharmacy #[id number], 195, cm, 10/06/21 8:16:00 EDT, Height/Length Dosing, 109.5, kg, 10/06/21 8:16:00 EDT, Weight Dosing Start Date: 10/06/21 Status: Ordered take 1 tablet by osbaldo every twelve hours Finasteride 5 MG 1 tablet Orally twice a day Active glimepiride 4 mg oral tablet (20 sources) Sulfonylurea Start: 11-09-2022 glimepiride 4 mg Tab Refills(s) 0 Start Date: 11/09/22 Status: Ordered take 2 tablets by mo [facility] every twenty-four hours Glimepiride 4 MG 2 [...] 09-25-2022 metFORMIN hydrochloride 1000 mg oral tablet (20 sources) Biguanide Start: 03-25-2019 take 1 tablet by mouth twice daily metformin 1000 mg Tab 1,000 mg = 1 tab(s), Oral, BID Start Date: 03/25/19 Status: Ordered omeprazole 20 mg delayed release oral tablet (10 sources) Proton Pump Inhibitor take 1 tablet by mouth once daily PriLOSEC OTC 20 MG 1 tablet 30 minutes before morning meal Orally Once a day Active take 1 tablet by mouth once mattie y PriLOSEC OTC 20 MG 1 tablet 30 minutes before morning meal Orally Once a day Active OneTouch Ultra - (19 sources) OneTouch Ultra - USE TO TEST BLOOD SUGAR ONCE A DAY for 50 Active paxlovid (300/100) 20 x 150 mg & 10 x 100mg tablet therapy pack (3 sources) Start: 05-10-2023 Paxlovid (300/ 100) 20 x 150 MG & 10 x 100MG as directed Orally bid for 5 days Apr, Active [place] 5/16 (15 sources) Start: 09-27-2022 Start: 09-27-2022 [place] 5 16 Use to inject insulin qd SC daily for 30 days Sep, Active tamsulosin hydrochloride 0.4 mg oral capsule (12 sources) alpha-Adrenergic Andrew Start: 10-06-2021 End: 10-27-2023 take 1 capsule by mouth twice daily tamsulosin 0.4 mg Cap 0.4 mg = 1 cap(s), Oral, BID, X 30 day(s), # 60 cap(s), Refills(s) 11, Pharmacy: [facility]/pharmacy #[id number], 195, cm, 10/06/21 8:16:00 EDT, Height/Length [...] acid 4700 mg / polyethylene glycol 3350 [id number] mg / potassium chloride 1015 mg / sodium ascorbate 5900 mg / sodium chloride 2690 mg / sodium sulfate 7500 mg powder for oral solution (19 sources) Osmotic Laxative, Vitamin C Start: 04-07-2014 MoviPrep 100 GM as directed Orally as directed for 1 dose(s) Mar, Not-Taking/PRN azithromycin 250 mg oral tablet (10 sources) Macrolide Antimicrobial Start: 11-26-2022 Azithromycin 250 MG as directed Orally 2 tabs po today, then 1 tab daily x 4 more days for 5 Nov, Not-Taking/PRN benzonatate 200 mg oral capsule (10 sources) Non-narcotic Antitussive Start: 11-26-2022 take 1 capsule by mouth every eight hours Benzonatate 200 MG 1 capsule Orally Three times a day for 10 day(s) Nov, Not-Taking/PRN pioglitazone 15 mg oral tablet (17 sources) Peroxisome Proliferator Receptor alpha Agonist, Peroxisome Proliferator Receptor gamma Agonist, Thiazolidinedione Start: 09-21-2022 take 1 tablet by mouth every twenty-four hours Pioglitazone HCl 15 MG 1 tablet Orally Once a day for 30 days Sep, Not-Taking/PRN Problems Active Problems Problem Classification Problem Date Documented Date Episodic/Chronic Coagulation and hemorrhagic disorders (13 sources) Primary thrombocytopenia; 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: [Primary thrombocytopenia, unspecified] Onset: 09-20-2018 Chronic Conditions associated with dizziness or vertigo (1 source) Dizziness and giddiness; 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: [DIZZINESS AND GIDDINESS] Onset: 07-03-2022 Episodic Diabetes mellitus with complications (20 sources) Type 2 diabetes mellitus with hyperglycemia; 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: [Type 2 diabetes mellitus] Onset: 02-10-2015 Chronic Diabetes mellitus without complication (16 sources) Diabetes mellitus; 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: [Type 2 diabetes [...] 05-09-2015 Chronic Other aftercare (1 source) Other nursing home (current) drug therapy; 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: [OTH [facility] CURRENT DRUG THERAPY] Onset: 07-03-2022 Episodic Other aftercare (1 source) jail (current) use of oral hypoglycemic drugs; 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: [[facility] USE ORAL HYPOGLYCEMIC DX] Onset: 07-03-2022 Episodic Other aftercare (15 sources) Long-term current use of insulin; 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: [termination clerk (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] Episodic Other aftercare (2 sources) termination clerk (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 Episodic Other aftercare (2 sources) Long-term current use of drug therapy; 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: [Other nursing home (current) drug therapy] Episodic Other and unspecified benign neoplasm (13 sources) Tubular adenoma of colon; 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: [Tubular adenoma of colon] Episodic Other and unspecified benign neoplasm (19 sources) Benign neoplasm of colon; 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: [Benign [...] Episodic Other nutritional; endocrine; and metabolic disorders (13 sources) Body mass index 30+ - obesity; 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: [Body mass index (BMI) 31.0-31.9, adult] Chronic Other nutritional; endocrine; and metabolic disorders (10 sources) Obesity caused by energy imbalance; 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: [...] Onset: 10-06-2021 Episodic Other upper respiratory disease (3 sources) Vasomotor rhinitis; 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: [Vasomotor rhinitis] Chronic Spondylosis; [...] 2022 ADA RECOMMENDATION SEE BELOW Normal [facility] Comment on above: Result Comment: ADA RECOMMENDED LIMIT 4.0 - 6.0 ADA THERAPEUTIC TARGET < 7.0 ACTION SUGGESTED > 7.0 Performed By: #### B MP, LIPID, ALT, URIC #### [facility] [address] [place], [place] [address] Dr. Jorge L Carey Glucose [Mass/Vol] 148 mg/dL Normal [facility] Comment on above: Performed By: #### B MP, LIPID, ALT, URIC #### [facility] [address] [place], [place] [address] Dr. Jorge L Carey HbA1c (Bld) [Mass fraction] 6.8 % Critically high 4.5-6.2 [facility] Comment on above: Performed By: #### B MP, LIPID, ALT, URIC #### [facility] [address] [place] [address] Dr. Jorge L Carey CARDIAC DANAY ADMITon 023 CK [Catalytic activity/Vol] 59 U/L Normal 39-308 [facility] Comment on above: Performed By: #### C MP, CMADM #### [facility] [address] [place] [address] Dr. Jorge L Carey CK.MB [Mass/Vol] 0.99 ng/mL Normal <=3.60 [facility] Comment on above: Performed By: #### C IGGY, CMADM #### [facility] [address] [place] [address] Dr. Jorge L Carey HSTROP 10.0 pg/mL Normal 4.0-76.1 [facility] Comment on above: Result Comment: CUT- OFF POINTS HAVE BEEN ESTABLISHED BASED ON THE FOURTH UNIVERSAL DEFINITIONS OF MYOCARDIAL INFARCTION. THE UPPER REFERENCE LIMIT (URL) OF TROPONIN, DEFINED THE 99TH PERCENTILE OF cTnI DISTRIBUTION IN A REFERENCE POPULATION, HAS BEEN CONFIRMED THE DECISION THRESHOLD FOR CT DIAGNOSIS. Performed By: #### C IGGY, CMADM #### [facility] [address] [place] [address] Dr. Jorge L Carey GARLAND 52 ng/mL Normal 16-96 [facility] Comment on above: Performed By: #### C IGGY, CMADM #### [facility] [address] [place] [address] Dr. Jorge L Carey CBC AUTO DIFFon 07-01-2022 BASO # 0.0 103/ul Normal 0.0-0.1 [facility] Comment on above: Performed By: #### B MP, LIPID, ALT, URIC #### [facility] [address] [place] [address] Dr. Jorge L Carey Basophils/100 WBC (Bld) 0.3 % Normal 0.2-2.0 [facility] Comment on above: Performed By: #### B MP, LIPID, ALT, URIC #### [facility] [address] [place] [address] Dr. Jorge L Carey EO # 0.1 103/ul Normal 0.0-0.7 [facility] Comment on above: Performed By: #### B MP, LIPID, ALT, URIC #### [facility] [address] [place] [address] [address] Jorge L Carey Eosinophils/100 WBC (Bld) 0.9 % Normal 0.9-7.0 [facility] Comment on above: Performed By: #### B MP, LIPID, ALT, URIC #### [facility] [address] [place] [address] Dr. Jorge L Carey Erythrocyte distribution width (RBC) [Ratio] 11.7 % Normal 11.0-15.0 [facility] Comment on above: Performed By: #### B MP, LIPID, ALT, URIC #### [facility] [address] [place] [address] Dr. Jorge L Carey Hematocrit (Bld) [Volume fraction] 41.1 % Critically low 42.0-54.0 [facility] Comment on above: Performed By: #### B MP, LIPID, ALT, URIC #### [facility] [address] [place] [address] Dr. Jorge L Carey Hemoglobin (Bld) [Mass/Vol] 14.5 g/dL Normal 14.0-18.0 [facility] Comment on above: Performed By: #### B MP, LIPID, ALT, URIC #### [facility] [address] [place] [address] Dr. Jorge L Carey IG # 0.02 10e3/ul Normal 0.00-0.03 [facility] Comment on above: Performed By: #### B MP, LIPID, ALT, URIC #### [facility] [address] [place] [address] Dr. Jorge L Carey IG % 0.3 % Normal 0.0-0.5 [facility] Comment on above: Performed By: #### B MP, LIPID, ALT, URIC #### [facility] [address] [place] [address] Dr. Jorge L Carey LYMPH # 1.1 103/ul Critically low 1.2-3.8 [facility] Comment on above: Performed By: #### B MP, LIPID, ALT, URIC #### [facility] [address] [place] [address] [address] Jorge L Carey Lymphocytes/100 WBC (Bld) 16.6 % Critically low 20.5-60.0 [facility] Comment on above: Performed By: #### B MP, LIPID, ALT, URIC #### [facility] [address] [place] [address] Dr. Jorge L Carey MANUAL DIFF REQ NO Normal [facility] Comment on above: Performed By: #### B MP, LIPID, ALT, URIC #### [facility] [address] [place] [address] Dr. Jorge L Carey MCH (RBC) [Entitic mass] 30.1 pg Normal 25.9-34.0 [facility] Comment on above: Performed By: #### B MP, LIPID, ALT, URIC #### [facility] [address] [place] [address] Dr. Jorge L Carey MCHC (RBC) [Mass/Vol] 35.3 g/dL Critically high 29.9-35.2 [facility] Comment on above: Performed By: #### B MP, LIPID, ALT, URIC #### [facility] [address] [place] [address] Dr. Jorge L Carey MCV (RBC) [Entitic vol] 85.4 fL Normal 80.0-94.0 [facility] Comment on above: Performed By: #### B MP, LIPID, ALT, URIC #### [facility] [address] [place] [address] Dr. Jorge L Carey MONO # 0.4 103/ul Normal 0.3-0.8 [facility] Comment on above: Performed By: #### B MP, LIPID, ALT, URIC #### [facility] [address] [place] [address] Dr. Jorge L Carey Monocytes/100 WBC (Bld) 5.1 % Normal 1.7-12.0 [facility] Comment on above: Performed By: #### B MP, LIPID, ALT, URIC #### [facility] [address] [place] [address] [address] Jorge L Carey NEUT # 5.3 103/ul Normal 1.4-6.5 [facility] Comment on above: Performed By: #### B MP, LIPID, ALT, URIC #### [facility] [address] [address] [address] Jorge L Carey Neutrophils/100 WBC (Bld) 76.8 % Critically high 43.0-75.0 [facility] Comment on above: Performed By: #### B MP, LIPID, ALT, URIC #### [facility] [address] [address] [address] Jorge L Carey Platelet mean volume (Bld) [Entitic vol] 12.1 fL Normal 9.5-13.5 [facility] Comment on above: Performed By: #### B MP, LIPID, ALT, URIC #### [facility] [address] [place] [address] [address] Jorge L Carey PLT 147 103/ul Critically low 150-450 [facility] Comment on above: Performed By: #### B MP, LIPID, ALT, URIC #### [facility] [address] [place] [address] [address] Jorge L Carey RBC 4.81 106/ul Normal 4.70-6.10 [facility] Comment on above: Performed By: #### B MP, LIPID, ALT, URIC #### [facility] [address] [place] [address] [address] Jorge L Carey WBC 6.9 103/ul Normal 4.0-11.0 [facility] Comment on above: Performed By: #### B MP, LIPID, ALT, URIC #### [facility] [address] [place] [address] [address] L [address] HEAD WO [...] MALENA LÓPEZ Date: 2022-07-01 20:24 Normal [facility] Covid-19 PCR (CVDTBH)on 06-17 SARS-CoV-2 (COVID-19) RNA EDVIN+probe Ql (Unsp spec) Not detected Normal NOT DETECTED [facility] Comment on above: Result Comment: When [...] this test is supported by the [place] of Health and Human Service's declaration that [...] longer be used). Performed By: #### C VDTB #### [facility] [address] [place] [address] Dr. Jorge L Carey D-DIMERon 07-01-2022 D-DIMER 0.21 mg/L FEU Normal <=0.59 [facility] Comment on above: Performed By: #### B MP, LIPID, ALT, URIC #### [facility] [address] [place] [address] Dr. Jorge L Carey D-DIMER COMMENTS SEE BELOW Normal [facility] Comment on above: Result Comment: Incr [...] #### B MP, LIPID, ALT, URIC #### [facility] [address] [place] [address] Dr. Jorge L Carey ER URINE PROFILEon 3 Bilirubin Ql (U) Negative Normal NEGATIVE [facility] Comment on above: Performed By: #### B MP, LIPID, ALT, URIC #### [facility] [address] [place] [address] Dr. Jorge L Carey Clarity (U) CLEAR Normal CLEAR [facility] Comment on above: Performed By: #### B MP, LIPID, ALT, URIC #### [facility] [address] [place] [address] Dr. Jorge L Carey Color (U) LT. YELLOW Normal YELLOW [facility] Comment on above: Performed By: #### B MP, LIPID, ALT, URIC #### [facility] [address] [place] [address] Dr. Jorge L Carey ERUAHD A micrscopic examination will be performed if indicated. Normal [facility] Comment on above: Performed By: #### B MP, LIPID, ALT, URIC #### [facility] [address] [place] [address] Dr. Jorge L Carey Glucose Ql (U) Negative Normal NEGATIVE [facility] Comment on above: Performed By: #### B MP, LIPID, ALT, URIC #### [facility] [address] [place] [address] Dr. Jorge L Carey Hemoglobin Ql (U) Negative Normal NEGATIVE [facility] Comment on above: Performed By: #### B MP, LIPID, ALT, URIC #### [facility] [address] [place] [address] [address] Jorge L Carey Ketones Ql (U) Negative Normal NEGATIVE [facility] Comment on above: Performed By: #### B MP, LIPID, ALT, URIC #### [facility] [address] [place] [address] [address] Jorge L Carey LEUKOCYTES Negative Normal NEGATIVE [facility] Comment on above: Performed By: #### B MP, LIPID, ALT, URIC #### [facility] [address] [place] [address] [address] Jorge L Carey Nitrite Ql (U) Negative Normal NEGATIVE [facility] Comment on above: Performed By: #### B MP, LIPID, ALT, URIC #### [facility] [address] [place] [address] Dr. Jorge L Carey pH (U) 6.0 [pH] Normal 5-9 [facility] Comment on above: Performed By: #### B MP, LIPID, ALT, URIC #### [facility] [address] [place] [address] [address] Jorge L Carey SPEC GRAVITY 1.020 Normal 1.005-<=1.025 [facility] Comment on above: Performed By: #### B MP, LIPID, ALT, URIC #### [facility] [address] [place] [address] [address] Jorge L Carey UA PROTEIN Negative Normal NEGATIVE/ TRACE [facility] Comment on above: Performed By: #### B MP, LIPID, ALT, URIC #### [facility] [address] [place] [address] [address] Jorge L Carey UR MICRO IND NOT INDICATED Normal [facility] Comment on above: Performed By: #### B MP, LIPID, ALT, URIC #### [facility] [address] [place] [address] Dr. Jorge L Carey Urobilinogen Qn (U) 1.0 {Ila'U}/dL Normal 0.2 - 1. 0 [facility] Comment on above: Performed By: #### B MP, LIPID, ALT, URIC #### [facility] [address] [place] [address] Dr. JorgeL Carey INFLUENZA A AND B AGon 07-01 INFLUANE SEE BELOW Normal [facility] Comment on above: Result Comment: Nega tive for Flu A protein angiten. Infection due to Flu A cannot be ruled out. Flu A angiten in the sample may be below the detection limit of the test. Performed By: #### I NFLUAB #### [facility] [address] [place] [address] Dr. Jorge L Carey INFLUBNEG SEE BELOW Normal [facility] Comment on above: Result Comment: Nega tive for Flu B protein antigen. Infection due to Flu B cannot be ruled out. Flu B antigen in the sample may be below the detection limit of the test. Performed By: #### I NFLUAB #### [facility] [address] [place] [address] Dr. Jorge L Carey INFLUENZA A AG Negative Normal NEGATIVE SEE COMMENT [facility] Comment on above: Performed By: #### I NFLUAB #### [facility] [address] [place] [address] Dr. Jorge L Carey INFLUENZA B AG Negative Normal NEGATIVE SEE COMMENT [facility] Comment on above: Performed By: #### I NFLUAB #### [facility] [address] [place] [address] Dr. Jorge L Carey POINT OF CARE GLUCOSEon 06-17 Glucose [Mass/Vol] 130 mg/dL Critically high 74-106 [facility] Comment on above: Performed By: #### B MP, LIPID, ALT, URIC #### [facility] [address] [place] [address] Dr. Jorge L Carey PROF 14(COMP METB)on 023 Albumin [Mass/Vol] 3.7 g/dL Normal 3.4-5.0 [facility] Comment on above: Performed By: #### C MP, CMADM #### [facility] [address] [place] [address] Dr. Jorge L Carey Albumin/Globulin [Mass ratio] 1.2 {ratio} Normal [facility] Comment on above: Performed By: #### C MP, CMADM #### [facility] [address] [place] [address] Dr. Jorge L Carey ALP [Catalytic activity/Vol] 49 U/L Normal 46-116 [facility] Comment on above: Performed By: #### C MP, CMADM #### [facility] [address] [place] [address] Dr. Jorge L Carey ALT [Catalytic activity/Vol] 30 U/L Normal 16-63 [facility] Comment on above: Performed By: #### C MP, CMADM #### [facility] [address] [place] [address] Dr. Jorge L Carey Anion gap [Moles/Vol] 12.7 mmol/L Normal [facility] Comment on above: Performed By: #### C IGGY, CMADM #### [facility] [address] [place] [address] Dr. Jorge L Carey AST [Catalytic activity/Vol] 21 U/L Normal 15-37 [facility] Comment on above: Performed By: #### C IGGY, CMADM #### [facility] [address] [place] [address] Dr. Jorge L Carey Bilirubin [Mass/Vol] 0.5 mg/dL Normal 0.2-1.0 [facility] Comment on above: Performed By: #### C MP, CMADM #### [facility] [address] [place] [address] Dr. Jorge L Carey Calcium [Mass/Vol] 8.9 mg/dL Normal 8.5-10.1 [facility] Comment on above: Performed By: #### C MP, CMADM #### [facility] [address] [place] [address] Dr. Jorge L Carey Chloride [Moles/Vol] 100 mmol/L Normal 98-107 [facility] Comment on above: Performed By: #### C MP, CMADM #### [facility] [address] [place] [address] Dr. Jorge L Carey CO2 [Moles/Vol] 29.0 mmol/L Normal 21.0-32.0 [facility] Comment on above: Performed By: #### C MP, CMADM #### [facility] [address] [place] [address] Dr. Jorge L Carey Creatinine [Mass/Vol] 1.04 mg/dL Normal 0.70-1.30 [facility] Comment on above: Performed By: #### C MP, CMADM #### [facility] [facility] [address] [address] [address] Jorge L Carey EGFR-AF MONTENEGRIN >60 Normal >=60 [facility] Comment on above: Performed By: #### C IGGY, CMADM #### [facility] [address] [place] [address] Dr. Jorge L Carey EGFR-NON AF MONTENEGRIN >60 Normal >=60 [facility] Comment on above: Performed By: #### C IGGY, CMADM #### [facility] [address] [place] [address] Dr. Jorge L Carey Globulin (S) [Mass/Vol] 3.1 g/dL Normal [facility] Comment on above: Performed By: #### C IGGY, CMADM #### [facility] [address] [place] [address] Dr. Jorge L Carey Glucose [Mass/Vol] 140 mg/dL Critically high 74-106 T [facility] Comment on above: Performed By: #### C IGGY, CMADM #### [facility] [address] [address] [address] Jorge L Carey Potassium [Moles/Vol] 3.7 mmol/L Normal 3.5-5.1 [facility] Comment on above: Performed By: #### C MP, CMADM #### [facility] [address] [place] [address] Dr. Jorge L Carey Protein [Mass/Vol] 6.8 g/dL Normal 6.4-8.2 [facility] Comment on above: Performed By: #### C MP, CMADM #### [facility] [address] [place] [address] Dr. Jorge L Carey Sodium [Moles/Vol] 138 mmol/L Normal 136-145 [facility] Comment on above: Performed By: #### C CEE PARKINSON #### [facility] [address] [place] [address] Dr. Jorge L Carey Urea nitrogen [Mass/Vol] 13.0 mg/dL Normal 7.0-18.0 [facility] Comment on above: Performed By: #### C CEE PARKINSON #### [facility] [address] [place] [address] Dr. Jorge L Carey Urea nitrogen/Creatinine [Mass ratio] 12.5 mg/mg Normal [facility] Comment on above: Performed By: #### C CEE PARKINSON #### [facility] [address] [place] [address] Dr. Jorge L Carey TROPONIN, HIGH SENSITIVITYon 07-01-2022 HSTROP 10.9 pg/mL Normal 4.0-76.1 [facility] Comment on above: Result Comment: CUT- OFF POINTS HAVE BEEN ESTABLISHED BASED ON THE FOURTH UNIVERSAL DEFINITIONS OF MYOCARDIAL INFARCTION. THE UPPER REFERENCE LIMIT (URL) OF TROPONIN, DEFINED THE 99TH PERCENTILE OF cTnI DISTRIBUTION IN A REFERENCE POPULATION, HAS BEEN CONFIRMED THE DECISION THRESHOLD FOR CT DIAGNOSIS. Performed By: #### B MP, LIPID, ALT, URIC #### [facility] [address] [place] [address] Dr. Jorge L Carey XR CHEST 1 [...] by: FILIPPO MASTERS Date: 2022-07-01 19:57 Normal [facility] CBC AUTO DIFFon 04-18-2022 BASO # 0.0 103/ul Normal 0.0-0.1 [facility] Comment on above: Performed By: #### C BC #### [facility] [address] [place] [address] Dr. Jorge L Carey Basophils/100 WBC (Bld) 0.7 % Normal 0.2-2.0 [facility] Comment on above: Performed By: #### C BC #### [facility] [address] [place] [address] Dr. Jorge L Carey EO # 0.2 103/ul Normal 0.0-0.7 [facility] Comment on above: Performed By: #### C BC #### [facility] [address] [place] [address] Dr. Jorge L Carey Eosinophils/100 WBC (Bld) 2.6 % Normal 0.9-7.0 [facility] Comment on above: Performed By: #### C BC #### [facility] [address] [place] [address] Dr. Jorge L Carey Erythrocyte distribution width (RBC) [Ratio] 11.5 % Normal 11.0-15.0 [facility] Comment on above: Performed By: #### C BC #### [facility] [address] [place] [address] Dr. Jorge L Carey Hematocrit (Bld) [Volume fraction] 44.7 % Normal 42.0-54.0 [facility] Comment on above: Performed By: #### C BC #### [facility] [address] [place] [address] Dr. Jorge L Carey Hemoglobin (Bld) [Mass/Vol] 15.5 g/dL Normal 14.0-18.0 [facility] Comment on above: Performed By: #### C BC #### [facility] [address] [place] [address] Dr. Jorge L Carey IG # 0.01 10e3/ul Normal 0.00-0.03 [facility] Comment on above: Performed By: #### C BC #### [facility] [address] [place] [address] Dr. Jorge L Carey IG % 0.2 % Normal 0.0-0.5 [facility] Comment on above: Performed By: #### C BC #### [facility] [address] [place] [address] Dr. Jorge L Carey LYMPH # 1.3 103/ul Normal 1.2-3.8 [facility] Comment on above: Performed By: #### C BC #### [facility] [address] [place] [address] Dr. Jorge L Carey Lymphocytes/100 WBC (Bld) 21.3 % Normal 20.5-60.0 [facility] Comment on above: Performed By: #### C BC #### [facility] [address] [place] [address] Dr. Jorge L Carey MANUAL DIFF REQ NO Normal [facility] Comment on above: Performed By: #### C BC #### [facility] [address] [place] [address] Dr. Jorge L Carey MCH (RBC) [Entitic mass] 30.1 pg Normal 25.9-34.0 [facility] Comment on above: Performed By: #### C BC #### [facility] [address] [place] [address] Dr. Jorge L Carey MCHC (RBC) [Mass/Vol] 34.7 g/dL Normal 29.9-35.2 [facility] Comment on above: Performed By: #### C BC #### [facility] [address] [place] [address] Dr. Jorge L Carey MCV (RBC) [Entitic vol] 86.8 fL Normal 80.0-94.0 [facility] Comment on above: Performed By: #### C BC #### [facility] [address] [place] [address] Dr. Jorge L Carey MONO # 0.4 103/ul Normal 0.3-0.8 [facility] Comment on above: Performed By: #### C BC #### [facility] [address] [place] [address] Dr. Jorge L Carey Monocytes/100 WBC (Bld) 7.2 % Normal 1.7-12.0 [facility] Comment on above: Performed By: #### C BC #### [facility] [address] [place] [address] Dr. Jorge L Carey NEUT # 4.1 103/ul Normal 1.4-6.5 [facility] Comment on above: Performed By: #### C BC #### [facility] [address] [address] [address] Jorge L Carey Neutrophils/100 WBC (Bld) 68.0 % Normal 43.0-75.0 [facility] Comment on above: Performed By: #### C BC #### [facility] [address] [address] [address] Jorge L Carey Platelet mean volume (Bld) [Entitic vol] 12.0 fL Normal 9.5-13.5 [facility] Comment on above: Performed By: #### C BC #### [facility] [address] [place] [address] Dr. Jorge L Carey PLT 163 103/ul Normal 150-450 [facility] Comment on above: Performed By: #### C BC #### [facility] [address] [place] [address] Dr. Jorge L Carey RBC 5.15 106/ul Normal 4.70-6.10 [facility] Comment on above: Performed By: #### C BC #### [facility] [address] [place] [address] Dr. Jorge L Carey WBC 6.1 103/ul Normal 4.0-11.0 [facility] Comment on above: Performed By: #### C BC #### [facility] [address] [place] [address] Dr. Jorge L Carey GLYCOHEMOGLOBIN A1Con 2021 ADA RECOMMENDATION SEE BELOW Normal [facility] Comment on above: Result Comment: ADA RECOMMENDED LIMIT 4.0 - 6.0 ADA THERAPEUTIC TARGET < 7.0 ACTION SUGGESTED > 7.0 Performed By: #### B MP, LIPID, ALT, URIC #### [facility] [address] [place] [address] Dr. Jorge L Carey Glucose [Mass/Vol] 146 mg/dL Normal [facility] Comment on above: Performed By: #### B MP, LIPID, ALT, URIC #### [facility] [address] [place] [address] Dr. Jorge L Carey HbA1c (Bld) [Mass fraction] 6.7 % Critically high 4.5-6.2 [facility] Comment on above: Performed By: #### B MP, LIPID, ALT, URIC #### [facility] [address] [address] [address] Jorge L Carey LIPID PROFILEon 04-18-2022 CHOL-HDL RATIO NORM SEE BELOW Normal [facility] Comment on above: Result Comment: 3.3 - 4.4 LOW RISK 4.4 - 7.1 AVERAGE RISK 7.1 - 11.0 MODERATE RISK >11.0 HIGH RISK Performed By: #### B MP, LIPID, ALT, URIC #### [facility] [address] [address] [address] Jorge L Carey Cholesterol [Mass/Vol] 117 mg/dL Normal <=200 [facility] Comment on above: Performed By: #### B MP, LIPID, ALT, URIC #### [facility] [address] [place] [address] Dr. Jorge L Carey Cholesterol in HDL [Mass/Vol] 48 mg/dL Normal 40-60 [facility] Comment on above: Performed By: #### B MP, LIPID, ALT, URIC #### [facility] [address] [place] [address] Dr. Jorge L Carey Cholesterol in LDL [Mass/Vol] 50.6 mg/dL Normal [facility] Comment on above: Performed By: #### B MP, LIPID, ALT, URIC #### [facility] [address] [address] [address] Jorge L Carey Cholesterol.total/Ch olesterol in HDL [Mass ratio] 2.4 {ratio} Normal [facility] Comment on above: Performed By: #### B MP, LIPID, ALT, URIC #### [facility] [address] [place] [address] Dr. Jorge L Carey HDL NORMAL > or = 60 mg/dl - LO W CARDIOVASCULAR RISK <40 mg/dl - HIGH CARDIOVASCULAR RISK Normal [facility] Comment on above: Performed By: #### B MP, LIPID, ALT, URIC #### [facility] [address] [place] [address] Dr. Jorge L Carey LDL CALC NORMAL SEE BELOW Normal [facility] Comment on above: Result Comment: <100 mg/dl OPTIMAL 100 - 129 mg/dl NEAR OR ABOVE OPTIMAL 130 - 159 mg/dl BORDERLINE HIGH 160 - 189 mg/dl HIGH >190 mg/dl VERY HIGH Performed By: #### B MP, LIPID, ALT, URIC #### [facility] [address] [address] [address] Jorge L Carey Triglyceride [Mass/Vol] 92 mg/dL Normal <=150 [facility] Comment on above: Performed By: #### B MP, LIPID, ALT, URIC #### [facility] [address] [address] [address] Jorge L Carey VLDL CALC 18.4 mg/dL Normal [facility] Comment on above: Performed By: #### B MP, LIPID, ALT, URIC #### [facility] [address] [address] [address] Jorge L Carey MICROALBUMIN, RAND URon 11-0 mALB <1.3 Normal <=30.0 [facility] Comment on above: Performed By: #### M ALBR #### [facility] [address] [address] [address] Jorge L Carey PROF CHEM 8 (BAS METB)on Anion gap [Moles/Vol] 9.5 mmol/L Normal [facility] Comment on above: Performed By: #### B MP, LIPID, ALT, URIC #### [facility] [address] [address] [address] Jorge L Carey Calcium [Mass/Vol] 8.6 mg/dL Normal 8.5-10.1 [facility] Comment on above: Performed By: #### B MP, LIPID, ALT, URIC #### [facility] [address] [address] [address] Jorge L Carey Chloride [Moles/Vol] 102 mmol/L Normal 98-107 [facility] Comment on above: Performed By: #### B MP, LIPID, ALT, URIC #### [facility] [address] [address] [address] Jorge L Carey CO2 [Moles/Vol] 30.8 mmol/L Normal 21.0-32.0 [facility] Comment on above: Performed By: #### B MP, LIPID, ALT, URIC #### [facility] [address] [address] [address] Jorge L Carey Creatinine [Mass/Vol] 0.95 mg/dL Normal 0.70-1.30 [facility] Comment on above: Performed By: #### B MP, LIPID, ALT, URIC #### [facility] [address] [address] [address] Jorge L Carey EGFR-AF MONTENEGRIN >60 Normal >=60 [facility] Comment on above: Performed By: #### B MP, LIPID, ALT, URIC #### [facility] [address] [place] [address] Dr. Jorge L Carey EGFR-NON AF MONTENEGRIN >60 Normal >=60 [facility] Comment on above: Performed By: #### B MP, LIPID, ALT, URIC #### [facility] [address] [address] [address] Jorge L Carey Glucose [Mass/Vol] 142 mg/dL Critically high 74-106 T [facility] Comment on above: Performed By: #### B MP, LIPID, ALT, URIC #### [facility] [address] [address] [address] Jorge L Carey Potassium [Moles/Vol] 4.3 mmol/L Normal 3.5-5.1 [facility] Comment on above: Performed By: #### B MP, LIPID, ALT, URIC #### [facility] [address] [address] [address] Jorge L Carey Sodium [Moles/Vol] 138 mmol/L Normal 136-145 [facility] Comment on above: Performed By: #### B MP, LIPID, ALT, URIC #### [facility] [address] [address] [address] Jorge L Carey Urea nitrogen [Mass/Vol] 14.0 mg/dL Normal 7.0-18.0 [facility] Comment on above: Performed By: #### B MP, LIPID, ALT, URIC #### [facility] [address] [address] [address] Jorge L Carey Urea nitrogen/Creatinine [Mass ratio] 14.7 mg/mg Normal [facility] Comment on above: Performed By: #### B MP, LIPID, ALT, URIC #### [facility] [address] [address] [address] Jorge L Carey SGPTon 04-18-2022 ALT [Catalytic activity/Vol] 27 U/L Normal 16-63 [facility] Comment on above: Performed By: #### B MP, LIPID, ALT, URIC #### [facility] [address] [address] [address] Jorge L Carey URIC ACID SERUMon 04-18-2022 Urate [Mass/Vol] 5.5 mg/dL Normal 3.5-7.2 [facility] Comment on above: Performed By: #### B MP, LIPID, ALT, URIC #### [facility] [address] [address] [address] Jorge L Carey GLYCOHEMOGLOBIN A1Con 2021 ADA RECOMMENDATION SEE BELOW Normal [facility] Comment on above: Result Comment: ADA RECOMMENDED LIMIT 4.0 - 6.0 ADA THERAPEUTIC TARGET < 7.0 ACTION SUGGESTED > 7.0 Performed By: #### B MP, LIPID, ALT, URIC #### [facility] [address] [address] [address] Jorge L Carey Glucose [Mass/Vol] 160 mg/dL Normal [facility] Comment on above: Performed By: #### B MP, LIPID, ALT, URIC #### [facility] [address] [address] [address] Jorge L Carey HbA1c (Bld) [Mass fraction] 7.2 % Critically high 4.5-6.2 [facility] Comment on above: Performed By: #### B MP, LIPID, ALT, URIC #### [facility] [address] [address] [address] Jorge L Carey Ambulatory Visit Summaryon 0 10-06-2021 Ambulatory Visit Summary FELIPE QUAN :1955 Visit Date:10/06/2021 Ambulatory Visit Instructions Your Diagnosis BPH with urinary obstruction Elevated PSA Tests Performed Urnls Dip Stick Auto w/o Microscopy POC [id number] Your Care Team Attending Physician - Hola [...] MCMANUS, Hola Rushing Where: [facility] Patient Educationon 10-07-19 Patient Education [...] Follow these instructions at home: ? Take [id number] and prescription medicines only as told by [...] You d (more content not included)... Normal [facility] Urology Office/Clinic Noteon 10-06-2021 Urology Office/Clinic [...] Follow-up With When Contact Information JOSE MCMANUS, Hola R, URL In 1 year 10/06/2022 EDT [facility] [address] [place] [address]- [phone] Additional Instructions: PSA Patient Education Benign Prostatic [...] (10/06/21 08:08:00) (more content not included)... Normal [facility] Comment on above: Result Comment: Elec tronically Signed By: Hola AMBRIZ MD\.br\Date and Time Signed: 10/06/21 08:39 EDT\.br\Electronically Co-Signed By: Ciarra Mckeon MA\.br\Date and Time Co-Signed: 10/06/21 08:38 EDT [facility] 09-19-2021 Lab Reports [id number] D:127 Normal [facility] GLYCOHEMOGLOBIN A1Con 2021 ADA RECOMMENDATION ADA THERAPEUTIC TARG ET 6.0 - 7.0 ACTION SUGGESTED > 7.0 Normal [facility] Comment on above: Performed By: #### B MP, LIPID, ALT, URIC #### [facility] [address] [address] [address] Jorge L Carey Glucose [Mass/Vol] 177 mg/dL Normal [facility] Comment on above: Performed By: #### B MP, LIPID, ALT, URIC #### [facility] [address] [place], [place] [address] Dr. Jorge L Carey HbA1c (Bld) [Mass fraction] 7.8 % Critically high <=6.0 [facility] Comment on above: Performed By: #### B MP, LIPID, ALT, URIC #### [facility] [address] [address] [address] Jorge L Carey [facility] 09-17-2020 Glucose [Mass/Vol] 151 mg/dL Normal [facility] Comment on above: Result Comment: PERF ORMED BY: [place] [address] PATHOLOGIST BOILER OPERATOR SUSAN SEXTON M.D. Performed By: #### O UTREACH GLYCO #### [facility] [address] [place] [address] HbA1c (Bld) [Mass fraction] 6.9 % High 4.3-5.6 [facility] Comment on above: Result Comment: Incr eased risk for diabetes: 5.7 - 6.4 diabetes: >6.4 glycemic control for adults with diabetes: <7.0 Performed By: #### O UTREACH GLYCO #### [facility] [address] [place] [address] Vital Signs Date Time Vital Sign Value Performing Clinician Facility 07-08-2023 09:00-0500 Body height 190.5 cm Bogdan Ball Other [facility] Other 07-08-2023 09:00-0500 Body mass index (BMI) [Ratio] 32.62 kg/m2 Bogdan Ball Other [facility] Other 07-08-2023 09:00-0500 Body weight 118.39 kg Bogdan Ball Other [facility] Other 07-08-2023 09:00-0500 Diastolic blood pressure 81 mm[Hg] Bogdan Ball Other [facility] Other 07-08-2023 09:00-0500 Respiratory rate 12 /min Bogdan Ball Other [facility] Other 07-08-2023 09:00-0500 Systolic blood pressure 117 mm[Hg] Bogdan Ball Other [facility] Other 05-01-2023 08:30-0500 Body height 190.5 cm Bogdan Ball Other [facility] Other 05-01-2023 08:30-0500 Body mass index (BMI) [Ratio] 32.19 kg/m2 Bogdan Ball Other [facility] Other 05-01-2023 08:30-0500 Body weight 116.85 kg Bogdan Ball Other [facility] Other 05-01-2023 08:30-0500 Diastolic blood pressure 81 mm[Hg] Bogdan Ball Other [facility] Other 05-01-2023 08:30-0500 Respiratory rate 12 /min Bogdan Ball Other [facility] Other 05-01-2023 08:30-0500 Systolic blood pressure 135 mm[Hg] Bogdan Ball Other [facility] Other 12-26-2022 08:30-0400 Body height 190.5 cm Bogdan Ball Other [facility] Other 12-26-2022 08:30-0400 Body mass index (BMI) [Ratio] 31.54 kg/m2 Bogdan Ball Other [facility] Other 12-26-2022 08:30-0400 Body weight 114.49 kg Bogdan Ball Other [facility] Other 12-26-2022 08:30-0400 Diastolic blood pressure 85 mm[Hg] Bogdan Ball Other [facility] Other 12-26-2022 08:30-0400 Respiratory rate 12 /min Bogdan Ball Other [facility] Other 12-26-2022 08:30-0400 Systolic blood pressure 139 mm[Hg] Bogdan Ball Other [facility] Other 11-09-2022 10:58-0400 Blood Pressure Location Hola AMBRIZ [facility] 11-09-2022 10:58-0400 Diastolic blood pressure 80 mm[Hg] Hola AMBRIZ [facility] 11-09-2022 10:58-0400 Heart rate 78 /min Hola AMBRIZ [facility] 11-09-2022 10:58-0400 Respiratory rate 16 /min oHla AMBRIZ [facility] 11-09-2022 10:58-0400 Systolic blood pressure 130 mm[Hg] Hola AMBRIZ [facility] 10-05-2022 12:15-0400 Body height 190.5 cm Bogdan Ball Other [facility] [employer] Other 10-05-2022 12:15-0400 Body mass index (BMI) [Ratio] 31.17 kg/m2 Bogdan Ball Other [facility] [employer] Other 10-05-2022 12:15-0400 Body weight 113.13 kg Bogdan Ball Other [facility] [employer] Other 10-05-2022 12:15-0400 Diastolic blood pressure 95 mm[Hg] Bogdan Ball Other [facility] Other 10-05-2022 12:15-0400 Respiratory rate 12 /min Bogdan Ball Other [facility] Other 10-05-2022 12:15-0400 Systolic blood pressure 168 mm[Hg] Bogdan Ball Other [facility] Other 08-23-2022 08:30-0500 Body height 190.5 cm Bogdan Ball Other [facility] Other 08-23-2022 08:30-0500 Body mass index (BMI) [Ratio] 31.42 kg/m2 Bogdan Ball Other [facility] Other 08-23-2022 08:30-0500 Body weight 114.04 kg Bogdan Ball Other [facility] Other 08-23-2022 08:30-0500 Diastolic blood pressure 86 mm[Hg] Bogdan Ball Other [facility] Other 08-23-2022 08:30-0500 Respiratory rate 12 /min Bogdan Ball Other [facility] Other 08-23-2022 08:30-0500 Systolic blood pressure 132 mm[Hg] Bogdan Ball Other [facility] Other 10-06-2021 08:14-0400 Blood Pressure Location Hola [employer] [facility] 10-06-2021 08:14-0400 Diastolic blood pressure 98 mm[Hg] Hola AMBRIZ [facility] 10-06-2021 08:14-0400 Heart rate 78 /min Hola AMBRIZ [facility] 10-06-2021 08:14-0400 Systolic blood pressure 145 mm[Hg] Hola AMBRIZ [facility] Encounters Encounter Date Encounter Type Care Provider Facility Start: 07-29-2023 End: 07-30-2023 ambulatory Dm Cyr MD [facility] Other Start: 07-29-2023 Telephone encounter Bogdan Green [facility] Start: 07-08-2023 End: 07-08-2023 ambulatory Bogdan Green Other [facility] Other Start: 07-08-2023 Office outpatient vi sit 25 minutes Bogdan Green [facility] Start: 06-24-2023 End: 06-25-2023 ambulatory Dm Cyr MD Facility:[facility] Start: 05-20-2023 End: 05-21-2023 ambulatory Dm Cyr MD Facility:[facility] Start: 05-10-2023 End: 05-10-2023 ambulatory Bogdan Green Other [facility] Other Start: 05-10-2023 Office outpatient vi sit 15 minutes Bogdan Green [facility] Start: 05-01-2023 End: 05-01-2023 ambulatory Bogdan Green Other [facility] Other Start: 05-01-2023 Patient encounter procedure Bogdan Green [facility] Start: 04-24-2023 End: 04-24-2023 ambulatory Bogdan Green Other [facility] Other Start: 04-24-2023 Telephone encounter Bogdan Green [facility] [facility] Start: 02-25-2023 End: 02-25-2023 ambulatory Bogdan Green Other [employer] Other Start: 02-25-2023 Telephone encounter Bogdan Green FP [facility] Start: 12-27-2022 End: 12-27-2022 ambulatory Bogdan Green Other [employer] Other Start: 12-27-2022 Telephone encounter Bogdan Ball FP [facility] Start: 12-26-2022 End: 12-26-2022 ambulatory Bogdan Ball Other [employer] Other Start: 12-26-2022 Office outpatient vi sit 25 minutes Bogdan Ball [facility] Start: 11-19-2022 End: 11-19-2022 ambulatory Bogdan Ball Other [employer] Other Start: 11-19-2022 Telephone encounter Bogdan Ball FP [facility] Start: 11-09-2022 ambulatory Hola AMBRIZ Facili ty:[facility] Start: 11-09-2022 End: 11-09-2022 Patient encounter procedure Hola AMBRIZ [facility] [place] Start: 10-22-2022 End: 10-22-2022 ambulatory Bogdan Ball Other [employer] Other Start: 10-22-2022 Telephone encounter Bogdan Ball FP [facility] Start: 10-18-2022 End: 10-18-2022 ambulatory Bogdan Ball Other [employer] Other Start: 10-18-2022 Telephone encounter Bogdan Ball FP [facility] Start: 10-05-2022 End: 10-05-2022 ambulatory Bogdan Ball Other [employer] Other Start: 10-05-2022 Office outpatient vi sit 15 minutes Bogdan Ball [facility] Start: 09-27-2022 End: 09-27-2022 ambulatory Bogdan Ball Other [employer] Other Start: 09-27-2022 Telephone encounter Bogdan Ball [facility] Start: 09-25-2022 End: 09-25-2022 ambulatory Bogdan Ball Other [employer] Other Start: 09-25-2022 Telephone encounter Bogdan Green [facility] Start: 09-21-2022 End: 09-21-2022 ambulatory Bogdan Green Other [employer] Other Start: 09-21-2022 Telephone encounter Bogdan Green [facility] Start: 08-23-2022 End: 08-23-2022 ambulatory Bogdan Green Other [employer] Other Start: 08-23-2022 Office outpatient vi sit 25 minutes Bogdan Green [facility] Start: 08-17-2022 End: 08-18-[address] BOGDAN GREEN Facility:[facility] Start: 08-14-2022 End: 08-14-2022 ambulatory Bogdan Green Other [employer] Other Start: 08-14-2022 Telephone encounter Bogdan Green [facility] Start: 07-01-2022 End: 07-01-[address] BOGDAN GREEN Facility:[facility] Start: 04-25-2022 Adult health examination Bogdan Green Other [employer] Other Start: 04-18-2022 End: 04-19-[address] BOGDAN GREEN Facility:[facility] Start: 01-20-2022 End: 01-21-2022 ambulatory NONE LISTED REQUEST Facility:[facility] Start: 10-06-2021 ambulatory Hola AMBRIZ Facility :[facility] Start: 10-06-2021 End: 10-07-2021 ambulatory Hola AMBRIZ Facility:[facility] Start: 10-06-2021 End: 10-06-2021 Patient encounter procedure Hola AMBRIZ [facility] Start: 09-16-2021 End: 09-17-[address] HOLA AMBRIZ . Facility:[facility] Start: 09-15-2021 End: 09-16-2021 ambulatory NONE LISTED REQUEST Facility:[facility] Start: 08-29-[address] BOGDAN GREEN Facili ty:[facility] Procedures Date Procedure Procedure Detail Performing Clinician Start: 09-16-[address] PISANO IN [place] Comment on above: Performed By: #### B MP, LIPID, ALT, URIC #### [facility] [address] [address] [address] Jorge L Carey Start: 03-29-2017 General examination of patient Bogdan Green Other Start: 12-20-2015 Cystoscopy Hola GENO FAITH Start: 12-15-2013 Hyperlipidemia screening Bogdan Green Other Start: 12-15-2013 Screening for malign ant neoplasm of prostate Bogdan Green Other Colonoscopy Hola AMBRIZ Depression screening Dwight Green Other History of hernia repair Maureen AMBRIZ Perirectal abscess (disorder) Hola AMBRIZ Screening for malign ant neoplasm of colon Bogdan Green Other Immunizations Immunization Date Immunization Notes Care Provider [facility] 04-29-2023 zoster vaccine recombinant Bogdan Green Other [employer] Other 04-26-2023 influenza, high dose seasonal, preservative-free Bogdan Green Other [employer] Other 02-26-2023 zoster vaccine recombinant Bogdan Green Other [employer] Other 04-25-2022 pneumococcal 20-alber nt conjugate vaccine Hola AMBRIZ [facility] 04-16-2022 influenza virus vaccine, split virus (incl. purified surface antigen) Bogdan Green Other [employer] Other 04-16-2022 influenza virus vaccine, unspecified formulation Hola AMBRIZ [facility] 03-23-2022 SARS-CoV-2 (COVID-19 ) [id number] Hola AMBRIZ [facility] 05-08-2021 SARS-CoV-2 (COVID-19 ) mRNA BNT-162b2 vax Hola AMBRIZ [facility] 04-22-2021 influenza virus vaccine, split virus (incl. purified surface antigen) Bogdan Green Other [employer] Other 04-22-2021 influenza virus vaccine, unspecified formulation Hola AMBRIZ [facility] 03-30-2021 influenza virus vaccine, unspecified formulation Hola AMBRIZ [facility] 09-16-2020 COVID-19, mRNA, LNP- S, PF, 30 mcg/0.3 mL dose; 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: [Pfizer-BioNTech COVID-19 Vaccine] Hola AMBRIZ [facility] Comment on above: Reason for Medicatio n: Prophylaxis 08-26-2020 COVID-19, mRNA, LNP- S, PF, 30 mcg/0.3 mL dose; 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: [Pfizer-BioNTech COVID-19 Vaccine] Hola AMBRIZ [facility] Comment on above: Reason for Medicatio n: Prophylaxis 04-16-2020 influenza virus vaccine, split virus (incl. purified surface antigen) Bogdan Green Other [employer] Other 04-16-2020 influenza virus vaccine, unspecified formulation Hola AMBRIZ [facility] pneumococcal Conjuga te, unspecified formulation; 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: [Need for prophylactic vaccination against Streptococcus pneumoniae (pneumococcus)] Bogdan Green Other [employer] Other Payers Date Payer Category Payer Medicare 2022 Unknown 2021 Medicare [id number] 2020 Unknown [id number] 1959 Medicare [id number] 1959 Self-pay [id number] 1959 Unknown [id number] 1959 Unknown [id number] 1956 Unknown [id number] 2.16.84 [id number] 1956 Unknown [id number] 2.16.84 [id number] 1956 Unknown [id number] 2.16.84 0.1.261009.3.579.2.593 1956 Unknown [id number] 2.16.84 0.1.915923.3.579.2.593 1956 Unknown [id number] 2.16.84 0.1.870091.3.579.2.593 1956 Unknown [id number] 2.16.8 40.1.066182.3.579.2.727 1956 Unknown [id number] 2.16.8 40.1.740788.3.579.2.727 1956 Unknown [id number] 2.16. 840.1.196245.3.579.2.196 1956 Unknown [id number] 2.16. 840.1.496480.3.579.2.196 1956 Unknown [id number] 2.16. [id number] Blue Cross Blue Shield [id number] [id number] Unknown [id number] 2.16.84 0.1.965506.3.579.2.593 Unknown [id number] 2.16.84 0.1.457428.3.579.2.593 Social History Date Type Detail Facility Start: 10-06-2021 End: 11-09-2022 Tobacco smoking status Never smoked tobacco (finding) [facility] Sex Assigned At Male [facility] Tobacco smoking status Never [facility] Functional Status Date Assessment Result Facility 11-09-2022 Functional Status N/A [facility] Clinical Notes 10-06-2021 to 07-29-2023 Note Date & Type Note Facility 07-29-2023 Evaluation note Encounter Date Diagnosis Assessment Notes Jul, Type 2 diabetes mellitus with hyperglycemia , without long-term current use of insulin (ICD-10 - E11.65) [employer] Other 01-22-2024 Evaluation note* Encounter Date Diagnosis Assessment Notes Treatment Notes Treatment Clinical Notes Jun, Type 2 diabetes mellitus with [...] improvement w/ injections would schedule MRI Jun, Gastro-esophageal reflux disease with esophagitis, without bleeding (ICD-10 - K21.00) Avoid lying flat after eating. Avoid eating 2 hours prior to bedtime. Smaller, frequent meals may be better tolerated.Weight loss if overweight.PPI with any heartburn.Monitor for dysphagia. Jun, Other obesity due to excess calories (ICD-10 - E66.09) Jun, Body mass index [BMI] 32.0-32.9, adult (ICD-10 - Z68.32) [employer] Other 11-24-2023 Evaluation note* Encounter Date Diagnosis [...] Microalbumin, Dilated eye exam and Foot exam [employer] Other 11-15-2023 Evaluation note* Encounter Date Diagnosis [...] flares Sep, Thrombocytopenia, unspecified (ICD-10 - D69.6) [facility] Other 11-15-2023 Evaluation note* Encounter Date Diagnosis [...] flares Sep, Thrombocytopenia, unspecified (ICD-10 - D69.6) [employer] Other 11-08-2023 Evaluation note* Encounter Date Diagnosis Assessment Notes Treatment Notes Treatment Clinical Notes Apr, Screening PSA (prostate specific antigen) (ICD-10 - Z12.5) Apr, Type 2 diabetes mellitus with hyperglycemia, without long-term current use of insulin (ICD-10 - E11.65) Apr, Elevated cholesterol (ICD-10 - E78.00) Apr, Primary hypertension (ICD-10 - I10) Sep, Thrombocytopenia, unspecified (ICD-10 - D69.6) Thrombocytopenia [employer] Other 07-12-2023 Evaluation note* Encounter Date Diagnosis [...] [BMI] 31.0-31.9, adult (ICD-10 - Z68.31) Dec, jail (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 (ICD-10 - Z79.4) [employer] Other 05-26-2023 Hospital Discharge instructions Patient Education [...] treatment? Where to find more information The [place] Cancer Society: www.cancer.org Citizen [place] Urological Association: www.auanet.org Contact a health care [...] provider. Document Revised: 11/27/2021 Document Reviewed: 11/27/2021 [employer] Patient Education 2022 [employer]. Follow Up Care 10/06/2021 08:40:21 With:JOSE MCMANUS, Hola Rushing, URL Address: [facility] [address], [place] [address]- When: Unknown [facility] 05-08-2023 Evaluation note* Encounter Date Diagnosis Assessment Notes Treatment Notes Treatment Clinical Notes October, Primary hypertension (ICD-10 - I10) [facility] Other 05-04-2023 Evaluation note* Encounter Date Diagnosis Assessment Notes Treatment Notes Treatment Clinical Notes October, Primary hypertension (ICD-10 - I10) [facility] Other 04-21-2023 Evaluation note* Encounter Date Diagnosis [...] and Glimepiride appear to be controlling BS. 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) [employer] Other 04-11-2023 Evaluation note* Encounter Date Diagnosis Assessment Notes Treatment Notes Treatment Clinical Notes Sep, Type 2 diabetes mellitus with hyperglycemia, without long-term current use of insulin (ICD-10 - E11.65) [employer] Other 04-07-2023 Evaluation note* Encounter Date Diagnosis Assessment Notes Treatment Notes Treatment Clinical Notes Sep, Type 2 diabetes mellitus with hyperglycemia (ICD-10 - E11.65) [employer] Other 03-09-2023 Evaluation note* Encounter Date Diagnosis [...] Reviewed red flag symptoms and nerve impingement [employer] Other 02-28-2023 Evaluation note* Encounter Date Diagnosis Assessment Notes Treatment Notes Treatment Clinical Notes Jul, Type 2 diabetes mellitus with hyperglycemia, without long-term current use of insulin (ICD-10 - E11.65) [employer] Other 04-22-2022 Hospital Discharge instructions Patient Education [...] urethra. Follow these instructions at home: Take diqq-zwi-rskdyxh and prescription medicines only as told by [...] 06/03/2006 Document Revised: 04/28/2019 Document Reviewed: 07/08/2017 [employer] Patient Education 2020 [employer]. Follow Up Care 10/03/2020 15:00:49 With:JOSE MCMANUS, Hola Rushing, ATTILAL Address: [facility] [address] , [place] [address]- [phone] When:10/06/2022 [facility] evaluation + Plan note Future Appointments Appointment Date:10/12/2022 08:00:00 AM Scheduled Provider:Hola AMBRIZ MD Location:[facility] Appointment Type:URO Office Visit Diagnostic Tests Pending * PSA Total 10/06/21 [facility] evaluation + Plan note Future Appointments Appointment Date:11/18/2023 08:45:00 AM Scheduled Provider:Hola AMBRIZ MD Location:[facility] Appointment Type:URO Office Visit Diagnostic Tests Pending * PSA Free & Total 11/09/22 [facility] Other Evaluation [facility]No [facility] [employer] Other History general Narrative - Reported* Type Description Date Medical History Controlled type 2 di abetes mellitus with hyperglycemia, without long-term current use of insulin Medical History Primary hypertension Medical History Elevated cholesterol Medical History Gastroesophageal ref lux disease with esophagitis without hemorrhage Medical History Adenomatous polyp of descending colon Medical History Lumbar spondylosis Surgical History COLONOSCOPY 2002,2013,2020 Surgical History CYSTOSCOPY 2016 Hospitalization History SEE SURGICAL HX [employer] Other [facility] - [facility] [employer] Other [facility] Narrative - Reported* Type Description Date Medical History Controlled type 2 di abetes mellitus with hyperglycemia, without long-term current use of insulin Medical History Primary hypertension Medical History Elevated cholesterol Medical History Gastroesophageal ref lux disease with esophagitis without hemorrhage Medical History Adenomatous polyp of descending colon Medical History Lumbar spondylosis Surgical History COLONOSCOPY, (repeat 2024) 2002 ,2013,2020 Surgical History CYSTOSCOPY 2016 Hospitalization History SEE SURGICAL HX [employer] Other Hospital course Narrative No data available for this section [facility] No data available for this section [facility] Summary Purpose Family History No Family History [...] well ness visit, initial (Z00.00) Referral Organization [facility] C jono Referring Provider First Name Bogdan Referring Provider Last Name Peter Referring Provider Specialty Internal Me dicine Referred Organization [facility] Referred Provider Swapnil French Referred Address [address] [place], [place],[address] Referred Provider Specialty Pain Medicin e Referral [...] Notes Include XR lumbar sp ine f: [id number] Additional Source Comments (unrecognized sect ion and content) No Status Records FoundNo Status Records FoundNo Status Records FoundNo Status Records Found INFORMATION SOURCE (unrecogn ized section and content) DATE CREATED AUTHOR 07/30/2021 [facility] DATE CREATED AUTHOR AUTHOR'S ORGANIZ ATION 08/22/2022 [facility] DATE CREATED AUTHOR AUTHOR'S ORGANIZ ATION 09/07/2022 [facility] DATE CREATED AUTHOR AUTHOR'S ORGANIZ ATION 08/04/2023 [facility] REASON FOR VISIT (unrecogniz ed section and content) BS readingsElevated blood cifuentes [id number] [employer] ResultsBP readingsrefillelevated BPMedication4 MONTH FOLLOW UP Patient Care team informatio n (unrecognized section and content) Personnel Name: BOGDAN GREEN DO Address: Address: [address] [facility], [place] FOR RECORDS PERTAINING TO PATIENTS WHO [...] BE BASED ON THE PRIMARY CLINICAL RECORDS. [facility]. provides no warranty or guarantee of the accuracy or completeness of information in this document.
[2023-08-19 08:27] VITALS: BP 139/84; PULSE 97; RESP 16; TEMP 36.6; O2SAT 99
[2023-08-19 08:33] LABS: Glucometer 149 mg/dL (74-106)
[2023-08-19 09:13] VITALS: RESP 20
[2023-08-19 09:20] VITALS: BP 145/87; PULSE 84; PULSE 88; O2SAT 96; O2SAT 97
[2023-08-19] MEDS: TRIAMCINOLONE ACETONIDE 40 MG/ML VIAL 80 MG INJ (09:22)
[2023-08-19] MEDS: LIDOCAINE HCL 2% 400 MG/20 ML MDV 12 ML INJ (09:22)
[2023-08-19] MEDS: BUPIVACAINE HCL 0.25% PF 25 MG/10 ML VIAL 4 ML INJ (09:22)
[2023-08-19 09:26] VITALS: BP 138/81
--- NOTE | 2023-08-19 09:31 | P.ON_ITS ---
Date of procedure: 08/19/23 Pre-op diagnosis: Lumbar spondylosis Post-op diagnosis: same as pre-op Procedure: Procedure: Bilateral L4-5, L5-S1 radiofrequency ablation Medications: Bupivacaine 0.25% 6cc, lidocaine 2% 5cc, kenalog 80mg The patient was seen and examined in the preoperative holding area.? The site was marked.? Written informed consent was obtained and placed on the chart.? The patient was brought to the medical procedure unit and placed in the prone position.? A timeout was completed verifying correct patient, procedure, positioning, and special requirements.? The skin overlying the target points, the designated medial branch, were prepped and draped in the usual sterile fashion.? The target point was achieved with a 20-gauge 15 cm with a 10 mm curved active tip radiofrequency cannula under direct fluoroscopic visualization.? The needle was inserted at level L4 on the right side. Needle tip position was confirmed with lateral fluoroscopic position.? Motor stimulation was carried out at 2 Hz up to 5 volts with the absence of extremity activity.? This was repeated at level L5, S1 on right side.?? Sensory stimulation was carried out.? Concordant pain was realized at the above- mentioned sites.? Then radiofrequency lesioning was carried out times 90 seconds at 80 degrees times 2 lesions at each level.? The radiofrequency probe was removed prior to cannula removal.? The above-mentioned injectate was placed in 1 mL increments.? The needle was removed. The same procedure, with the same steps, was then completed on the left side at the same levels. Insertion sites were covered.? The patient was taken to the postoperative recovery area and monitored for an appropriate length of time before being found suitable for discharge in the company of a responsible adult. Anesthesia: Local Surgeon: Dm Cyr Pathology: none sent Condition: stable Disposition: no change
== END 2023-08-19 09:35 | disposition home or self-care (01) ==
LOC: SURGOUT 08:18
PROVIDERS: PCP Internal Medicine; Visit Provider Anesthesiology
DX: M47.816 Spondylosis without myelopathy or radiculopathy, lumbar region (principal); Z79.4 Long term (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; Z79.84 Long term (current) use of oral hypoglycemic drugs
CPT/HCPCS: 36415; 64635; 64636; 82948

== ENCOUNTER 2023-09-26 10:11 | Outpatient (OUT) | payer MEDICARE, BC, SELFPAY ==
--- NOTE | 2023-09-26 10:35 | PM.CN ---
Consult Note: HPI Data of Consult Patient: known to practice within the last 3 years Consult date: 05/20/23 Requesting Physician: Radha Cope NP Primary Care Provider: Bogdan Green DO Family Provider: f/u Consult Narrative Reason for consult: f/u Narrative: 68yom who presents for evaluation. worsening axial low back pain that has persisted for >1 year. underwent physical therapy in the summer and continues in a course of provider directed home exercises, which have not provided significant relief for >6 weeks >3x/week. imaging reviewed, significant for facet arthropathy in lower lumbar spine. uses otc pain meds as needed. Patient recently underwent bilateral L4-5 L5-S1 thermal RFA with mild improvement ongoing, patient notices improvement in ambulation. Patient reports he continues to notice gradual improvement, but is pleased with the results. Pain today 2/10 in low back and bilateral hips, increasing to 4-5/10 by end of day. cc:: CC: Radha Cope NP Review of Systems ROS Status of ROS 10 or more systems reviewed and unremarkable except as noted in history and below Musculoskeletal Reports: back pain PFSH PFSH Medical History History of stress test ?Z92.89 - Personal history of other medical treatment (ICD-10) Acid reflux ?K21.9 - Gastro-esophageal reflux disease without esophagitis (ICD-10) Diabetes ?E11.9 - Type 2 diabetes mellitus without complications (ICD-10) HTN (hypertension) ?I10 - Essential (primary) hypertension (ICD-10) Surgical History History of hernia repair ?Z98.890 - Other specified postprocedural states (ICD-10) ?Z87.19 - Personal history of other diseases of the digestive system (ICD-10) Meds Home Medications and Allergies Home Medications ?Medication ?Instructions ?Recorded ?Confirmed ?Type allopurinol 100 mg tablet 100 mg PO DAILY 06/14/23 08/19/23 History amlodipine 5 mg tablet 5 mg PO DAILY 06/14/23 08/19/23 History atorvastatin 10 mg tablet 10 mg PO DAILY 06/14/23 08/19/23 History benazepril 5 mg tablet 20 mg PO DAILY 06/14/23 08/19/23 History finasteride 5 mg tablet 5 mg PO DAILY 06/14/23 08/19/23 History glimepiride 4 mg tablet 4 mg PO DAILY 06/14/23 08/19/23 History insulin glargine 100 unit/mL (3 25 unit subcut DAILY 06/14/23 08/19/23 History mL) subcutaneous pen (Lantus Solostar U-100 Insulin) latanoprost 0.005 % eye drops 1 drp ophthalmic (eye) DAILY 06/14/23 08/19/23 History metformin 1,000 mg tablet 1,000 mg PO BID 06/14/23 08/19/23 History tamsulosin 0.4 mg capsule 0.4 mg PO Q24H 06/14/23 08/19/23 History cetirizine 10 mg capsule (All Day 10 mg PO DAILY PRN allergy symptoms 06/24/23 08/19/23 History Allergy (cetirizine)) omeprazole 10 mg capsule,delayed 10 mg PO DAILY 06/24/23 08/19/23 History release dulaglutide 0.75 mg/0.5 mL 0.75 mg subcut QWEEK 08/07/23 08/07/23 History subcutaneous pen injector (Trulicity) Allergies Allergy/AdvReac Type Severity Reaction Status Date / Time No Known Drug Allergies Allergy Verified 07/29/23 09:29 Exam Constitutional Documenting provider has reviewed patient's vital signs: yes Common normals: no apparent distress, oriented x3, healthy appearing, alert and well nourished General appearance: cooperative [facility] Common normals: normocephalic, hearing grossly normal bilaterally and moist oral mucous membranes Head and scalp: normocephalic Eye Common normals: PERRL Pupil: PERRL Neck & C-Spine Common normals: full ROM General: normal visual inspection Chest Common normals: inspection of chest normal Respiratory Common normals: normal respiratory effort, no retractions and no use of accessory muscles Back & Pelvis Lumbar spine/lower back: lumbar ROM normal, pain with ROM and lumbar spinal tenderness Sacroiliac joints: SI joints normal Other: negative PSIS, 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 and gaenslens mildly positive facet loading myofascial pain without notable trigger points Extremity Common normals: normal to inspection and full ROM Neuro Common normals: oriented x3, CN's II-XII intact bilaterally, moves all extremities, no focal motor deficits, no sensory deficits noted, deep tendon reflexes 2+ bilaterally and gait normal Sensorium/orientation: alert Motor exam: strength 5/5 throughout and no movement abnormalities noted Psych Common normals: mental status grossly normal, thought process normal, cooperative, affect normal, speech normal and activity/motor behavior normal Speech: normal speech Thought process: normal thought process Results Additional Findings Additional findings: If on a controlled substance or opioids, I have checked an [place]ARRS report on this patient and there are no aberrancies noted in the prescribing history.??If on a controlled substance or opioid a drug screen was completed and reviewed within the last year, and if there has not been a drug screen completed we ordered one today to monitor higher risk, state monitored pain medication use. As part of providing excellent, safe, comprehensive care, the following was completed at our patient's visit: 1. A medication reconciliation and review to ensure accurate knowledge of current/active medications, including asking our patients to inform us about any [id number]-pws-rjgobqt medications or herbal remedies/nutritional supplements/alternative remedies. 2. A review to specifically ensure our patients have had annual screening for screening for depression, screening for tobacco use, and screening for unhealthy alcohol use. For concerning screenings had a discussion with the patient, provided patient education, and recommended follow-up with primary care provider when appropriate. If patient noted with a risk of falling, they received education on strength, gait, and balance training to prevent future risk of falling. Assessment and Plan Assessment and Plan (1) Lumbar spondylosis: (2) Bilateral sacroiliitis: Assessment and Plan: negative exam as noted above Plan overall improvement as a result of bilateral SI nerve blocks and bilateral L4-5 L5-S1 facet RFA continue HEP as tolerated continue otc medications for mild pain continue heat prn declining muscle relaxer for PRN use f/u 6 months, sooner if needed
--- OUTSIDE RECORDS SUMMARY | 2023-09-26 10:35 | XMS_ITS | CCD ---
Author Organization [facility] Care Team Providers Care Brush Maker Machine Name Role Phone BOGDAN GREEN Primary Care Physician [phone] DR BOGDAN GREEN Primary Care Unavailable FRANCISCA [...] AMBRIZ Attending Unavailable Hola AMBRIZ Attending Unavailable Giedraitis , Dm Santos Attending Unavailable Giedraitis , Andrius Vmarietta Attending Unavailable Giwilitis , Andrius Tom Attending Unavailable Gieditis , Andrius Vmarietta Attending Unavailable Gieditis , Andri Vmarietta Attending Unavailable Allergies Allergy Classification Reported Allergen(s) Allergy Type Date of Onset Reaction(s) Facility (1 source) No Known Medication Allergies; 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: [No Known Medication Allergies] Propensity to adverse reactions (disorder) [facility] Repository (2 sources) patient allergy list reviewed by nurse or physicia Propensity to adverse reactions Comment:Done Gazelle Other Medications Current Medications Medication Drug Class(es) [...] day(s), # 90 tab(s), Refills(s) 3, Pharmacy: [facility]/pharmacy #[id number], 195, cm, 11/09/22 11:00:00 EDT, Height/Length Dosing, 111, kg, 11/09/22 11:00:00 EDT, Weight Dosing Start Date: 11/09/22 Stop Date: 11/04/23 Status: Ordered Start: 10-06-2021 take 1 tablet by osbaldo th once daily finasteride 5 mg Tab 5 mg = 1 tab(s), Oral, Daily, # 90 tab(s), Refills(s) 3, Pharmacy: [facility]/pharmacy #[id number], 195, cm, 10/06/21 8:16:00 EDT, [...] Status: Ordered take 2 tablets by mo ut every twenty-four hours Glimepiride 4 MG 2 [...] by cifuentes bcutaneous injection once at bedtime Luz Mariaaglar GeoffreyikPen 100 UNIT/ML 10 units Subcutaneous q HS [...] bid for 5 days Apr, Active Pen Toponas 5/16 (15 sources) Start: 09-27-2022 Start: 09-27-2022 Pen Toponas 5/ 16 Use to inject insulin qd SC daily for 30 days Sep, Active tamsulosin hydrochloride 0.4 mg oral capsule (12 sources) alpha-Adrenergic Andrew Start: 10-06-2021 End: 10-27-2023 take 1 capsule by mouth twice daily tamsulosin 0.4 mg Cap 0.4 mg = 1 cap(s), Oral, BID, X 30 day(s), # 60 cap(s), Refills(s) 11, Pharmacy: [facility]/pharmacy #[id number], 195, cm, 10/06/21 8:16:00 EDT, [...] acid 4700 mg / polyethylene glycol 3350 [id number] mg / potassium chloride 1015 mg / [...] 05-09-2015 Chronic Other aftercare (1 source) 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..] 2022 ADA RECOMMENDATION SEE BELOW Normal [facility] Comment on above: Result Comment: ADA RECOMMENDED LIMIT 4.0 - 6.0 ADA THERAPEUTIC TARGET < 7.0 ACTION SUGGESTED > 7.0 Performed By: #### B MP, LIPID, ALT, URIC #### [facility] [address] [place], [place] [address] Dr. Jorge L Carey Glucose [Mass/Vol] 148 mg/dL Normal [facility] Comment on above: Performed By: #### B MP, LIPID, ALT, URIC #### [facility] [address] [place], [place] [address] Dr. Jorge L Carey HbA1c (Bld) [Mass fraction] 6.8 % Critically high 4.5-6.2 [facility] Comment on above: Performed By: #### B MP, LIPID, ALT, URIC #### [facility] [address] [place] [address] Dr. Jorge L Carey CARDIAC DANAY ADMITon 023 CK [Catalytic activity/Vol] 59 U/L Normal 39-308 [facility] Comment on above: Performed By: #### C IGGY, CMADM #### [facility] [address] [place] [address] Dr. Jorge L Carey CK.MB [Mass/Vol] 0.99 ng/mL Normal <=3.60 The [facility] Comment on above: Performed By: #### C IGGY CMADM #### [facility] [address] [place] [address] Dr. Jorge L Carey HSTROP 10.0 pg/mL Normal 4.0-76.1 [facility] Comment on above: Result Comment: CUT- OFF POINTS HAVE BEEN ESTABLISHED BASED ON THE FOURTH UNIVERSAL DEFINITIONS OF MYOCARDIAL INFARCTION. THE UPPER REFERENCE LIMIT (URL) OF TROPONIN, DEFINED THE 99TH PERCENTILE OF cTnI DISTRIBUTION IN A REFERENCE POPULATION, HAS BEEN CONFIRMED THE DECISION THRESHOLD FOR [place] DIAGNOSIS. Performed By: #### C IGGY CMADM #### [facility] [address] [place] [address] Dr. Jorge L Carey GARLAND 52 ng/mL Normal 16-96 [facility] Comment on above: Performed By: #### C IGGY, CMADM #### [facility] [address] [place] [address] Dr. Jorge L Carey CBC AUTO DIFFon 07-01-2022 BASO # 0.0 103/ul Normal 0.0-0.1 [facility] Comment on above: Performed By: #### B MP, LIPID, ALT, URIC #### [facility] [address] [place] [address] Dr. Jorge L Carey Basophils/100 WBC (Bld) 0.3 % Normal 0.2-2.0 [facility] Comment on above: Performed By: #### B MP, LIPID, ALT, URIC #### [facility] [address] [place] [address] Dr. Jorge L Carey EO # 0.1 103/ul Normal 0.0-0.7 [facility] Comment on above: Performed By: #### B MP, LIPID, ALT, URIC #### [facility] [address] [place] [address] Dr. Jorge L Carey Eosinophils/100 WBC (Bld) 0.9 % Normal 0.9-7.0 [facility] Comment on above: Performed By: #### B MP, LIPID, ALT, URIC #### [facility] [address] [place] [address] Dr. Jorge L Carey Erythrocyte distribution width (RBC) [Ratio] 11.7 % Normal 11.0-15.0 [facility] Comment on above: Performed By: #### B MP, LIPID, ALT, URIC #### [facility] [address] [place] [address] Dr. Jorge L Carey Hematocrit (Bld) [Volume fraction] 41.1 % Critically low 42.0-54.0 [facility] Comment on above: Performed By: #### B MP, LIPID, ALT, URIC #### [facility] [address] [place] [address] Dr. Jorge L Carey Hemoglobin (Bld) [Mass/Vol] 14.5 g/dL Normal 14.0-18.0 [facility] Comment on above: Performed By: #### B MP, LIPID, ALT, URIC #### [facility] [address] [place] [address] Dr. Jorge L Carey IG # 0.02 10e3/ul Normal 0.00-0.03 [facility] Comment on above: Performed By: #### B MP, LIPID, ALT, URIC #### [facility] [address] [place] [address] Dr. Jorge L Carey IG % 0.3 % Normal 0.0-0.5 [facility] Comment on above: Performed By: #### B MP, LIPID, ALT, URIC #### [facility] [address] [place] [address] Dr. Jorge L Carey LYMPH # 1.1 103/ul Critically low 1.2-3.8 [facility] Comment on above: Performed By: #### B MP, LIPID, ALT, URIC #### [facility] [address] [place] [address] Dr. Jorge L Carey Lymphocytes/100 WBC (Bld) 16.6 % Critically low 20.5-60.0 [facility] Comment on above: Performed By: #### B MP, LIPID, ALT, URIC #### [facility] [address] [place] [address] Dr. Jorge L Carey MANUAL DIFF REQ NO Normal [facility] Comment on above: Performed By: #### B MP, LIPID, ALT, URIC #### [facility] [address] [place] [address] Dr. Jorge L Caery MCH (RBC) [Entitic mass] 30.1 pg Normal 25.9-34.0 [facility] Comment on above: Performed By: #### B MP, LIPID, ALT, URIC #### [facility] [address] [place] [address] Dr. Jorge L Carey MCHC (RBC) [Mass/Vol] 35.3 g/dL Critically high 29.9-35.2 [facility] Comment on above: Performed By: #### B MP, LIPID, ALT, URIC #### [facility] [address] [place] [address] Dr. Jorge L Carey MCV (RBC) [Entitic vol] 85.4 fL Normal 80.0-94.0 [facility] Comment on above: Performed By: #### B MP, LIPID, ALT, URIC #### [facility] [address] [place] [address] Dr. Jorge L Carey MONO # 0.4 103/ul Normal 0.3-0.8 [facility] Comment on above: Performed By: #### B MP, LIPID, ALT, URIC #### [facility] [address] [place] [address] Dr. Jorge L Carey Monocytes/100 WBC (Bld) 5.1 % Normal 1.7-12.0 [facility] Comment on above: Performed By: #### B MP, LIPID, ALT, URIC #### [facility] [address] [place] [address] [address] Jorge L Carey NEUT # 5.3 103/ul Normal 1.4-6.5 [facility] Comment on above: Performed By: #### B MP, LIPID, ALT, URIC #### [facility] [address] [place] [address] [address] Jorge L Carey Neutrophils/100 WBC (Bld) 76.8 % Critically high 43.0-75.0 [facility] Comment on above: Performed By: #### B MP, LIPID, ALT, URIC #### [facility] [address] [place] [address] [address] Jorge L Carey Platelet mean volume (Bld) [Entitic vol] 12.1 fL Normal 9.5-13.5 [facility] Comment on above: Performed By: #### B MP, LIPID, ALT, URIC #### [facility] [address] [place] [address] Dr. Jorge L Carey PLT 147 103/ul Critically low 150-450 [facility] Comment on above: Performed By: #### B MP, LIPID, ALT, URIC #### [facility] [address] [place] [address] [address] Jorge L Carey RBC 4.81 106/ul Normal 4.70-6.10 [facility] Comment on above: Performed By: #### B MP, LIPID, ALT, URIC #### [facility] [address] [place] [address] Dr. Jorge L Carey WBC 6.9 103/ul Normal 4.0-11.0 [facility] Comment on above: Performed By: #### B MP, LIPID, ALT, URIC #### [facility] [address] [place] [address] [address] HEAD WO [...] MALENA LÓPEZ Date: 2022-07-01 20:24 Normal [facility]17 SARS-CoV-2 (COVID-19) RNA EDVIN+probe Ql (Unsp spec) Not detected Normal NOT DETECTED [facility] Comment on above: Result Comment: When diagnostic [...] for this test is supported by the [place] of Health and Human Service's declaration that [...] used). Performed By: #### C VDTB #### [facility] [address] [place] [address] Dr. Jorge L Carey D-DIMERon 07-01-2022 D-DIMER 0.21 mg/L FEU Normal <=0.59 [facility] Comment on above: Performed By: #### B MP, LIPID, ALT, URIC #### [facility] [address] [place] [address] Dr. Jorge L Carey D-DIMER COMMENTS SEE BELOW Normal [facility] Comment on above: Result Comment: Incr eases [...] #### B MP, LIPID, ALT, URIC #### [facility] [address] [place] [address] Dr. Jorge L Carey ER URINE PROFILEon 3 Bilirubin Ql (U) Negative Normal NEGATIVE [facility] Comment on above: Performed By: #### B MP, LIPID, ALT, URIC #### [facility] [address] [place] [address] Dr. Jorge L Carey Clarity (U) CLEAR Normal CLEAR [facility] Comment on above: Performed By: #### B MP, LIPID, ALT, URIC #### [facility] [address] [place] [address] Dr. Jorge L Carey Color (U) LT. YELLOW Normal YELLOW [facility] Comment on above: Performed By: #### B MP, LIPID, ALT, URIC #### [facility] [address] [place] [address] Dr. Jorge L Carey ERUAHD A micrscopic examination will be performed if indicated. Normal [facility] Comment on above: Performed By: #### B MP, LIPID, ALT, URIC #### [facility] [address] [place] [address] Dr. Jorge L Carey Glucose Ql (U) Negative Normal NEGATIVE [facility] Comment on above: Performed By: #### B MP, LIPID, ALT, URIC #### [facility] [address] [place] [address] Dr. Jorge L Carey Hemoglobin Ql (U) Negative Normal NEGATIVE [facility] Comment on above: Performed By: #### B MP, LIPID, ALT, URIC #### [facility] [address] [place] [address] [address] Jorge L Carey Ketones Ql (U) Negative Normal NEGATIVE [facility] Comment on above: Performed By: #### B MP, LIPID, ALT, URIC #### [facility] [address] [place] [address] [address] Jorge L Carey LEUKOCYTES Negative Normal NEGATIVE [facility] Comment on above: Performed By: #### B MP, LIPID, ALT, URIC #### [facility] [address] [place] [address] [address] Jorge L Carey Nitrite Ql (U) Negative Normal NEGATIVE [facility] Comment on above: Performed By: #### B MP, LIPID, ALT, URIC #### [facility] [address] [place] [address] Dr. Jorge L Carey pH (U) 6.0 [pH] Normal 5-9 [facility] Comment on above: Performed By: #### B MP, LIPID, ALT, URIC #### [facility] [address] [place] [address] [address] Jorge L Carey SPEC GRAVITY 1.020 Normal 1.005-<=1.025 [facility] Comment on above: Performed By: #### B MP, LIPID, ALT, URIC #### [facility] [address] [place] [address] [address] Jorge L Carey UA PROTEIN Negative Normal NEGATIVE/ TRACE [facility] Comment on above: Performed By: #### B MP, LIPID, ALT, URIC #### [facility] [address] [place] [address] [address] Jorge L Carey UR MICRO IND NOT INDICATED Normal [facility] Comment on above: Performed By: #### B MP, LIPID, ALT, URIC #### [facility] [address] [place] [address] [address] Jorge L Carey Urobilinogen Qn (U) 1.0 {Ila'U}/dL Normal 0.2 - 1. 0 [facility] Comment on above: Performed By: #### B MP, LIPID, ALT, URIC #### [facility] [address] [place] [address] Dr. Jorge L Carey INFLUENZA A AND B AGon 07-01 [facility] SEE BELOW Normal [facility] Comment on above: Result Comment: Nega tive for Flu A protein angiten. Infection due to Flu A cannot be ruled out. Flu A angiten in the sample may be below the detection limit of the test. Performed By: #### I NFLUAB #### [facility] [address] [place] [address] Dr. Jorge L [facility] Normal [facility] Comment on above: Result Comment: Nega tive for Flu B protein antigen. Infection due to Flu B cannot be ruled out. Flu B antigen in the sample may be below the detection limit of the test. Performed By: #### I NFLUAB #### [facility] [address] [place] [address] Dr. Jorge L Carey INFLUENZA A AG Negative Normal NEGATIVE SEE COMMENT [facility] Comment on above: Performed By: #### I NFLUAB #### [facility] [address] [place] [address] Dr. Jorge L Carey INFLUENZA B AG Negative Normal NEGATIVE SEE COMMENT [facility] Comment on above: Performed By: #### I NFLUAB #### [facility] [address] [place] [address] Dr. Jorge L Carey POINT OF CARE GLUCOSEon 06-17 Glucose [Mass/Vol] 130 mg/dL Critically high 74-106 T [facility] Comment on above: Performed By: #### B MP, LIPID, ALT, URIC #### [facility] [address] [place] [address] Dr. Jorge L Carey PROF 14(COMP METB)on 023 Albumin [Mass/Vol] 3.7 g/dL Normal 3.4-5.0 [facility] Comment on above: Performed By: #### C MP, CMADM #### [facility] [address] [place] [address] Dr. Jorge L Carey Albumin/Globulin [Mass ratio] 1.2 {ratio} Normal [facility] Comment on above: Performed By: #### C IGGY, CMADM #### [facility] [address] [place] [address] [address] Jorge L Carey ALP [Catalytic activity/Vol] 49 U/L Normal 46-116 [facility] Comment on above: Performed By: #### C IGGY, CMADM #### [facility] [address] [place] [address] [address] Jorge L Carey ALT [Catalytic activity/Vol] 30 U/L Normal 16-63 [facility] Comment on above: Performed By: #### C IGGY, RAMYDM #### [facility] [address] [place] [address] Dr. Jorge L Carey Anion gap [Moles/Vol] 12.7 mmol/L Normal [facility] Comment on above: Performed By: #### C IGGY, CMADM #### [facility] [address] [place] [address] [address] Jorge L Carey AST [Catalytic activity/Vol] 21 U/L Normal 15-37 [facility] Comment on above: Performed By: #### C IGGY, RAMYDM #### [facility] [address] [place] [address] Dr. Jorge L Carey Bilirubin [Mass/Vol] 0.5 mg/dL Normal 0.2-1.0 [facility] Comment on above: Performed By: #### C IGGY, CMADM #### [facility] [address] [place] [address] [address] Jorge L Carey Calcium [Mass/Vol] 8.9 mg/dL Normal 8.5-10.1 [facility] Comment on above: Performed By: #### C IGGY, CMADM #### [facility] [address] [place] [address] Dr. Jorge L Carey Chloride [Moles/Vol] 100 mmol/L Normal 98-107 [facility] Comment on above: Performed By: #### C IGGY, RAMYDM #### [facility] [address] [place] [address] Dr. Jorge L Carey CO2 [Moles/Vol] 29.0 mmol/L Normal 21.0-32.0 [facility] Comment on above: Performed By: #### C IGGY, CMADM #### [facility] [address] [place] [address] [address] Jorge L Carey Creatinine [Mass/Vol] 1.04 mg/dL Normal 0.70-1.30 [facility] Comment on above: Performed By: #### C IGGY, CMADM #### [facility] [address] [place] [address] [address] Jorge L Carey EGFR-AF UZBEK >60 Normal >=60 [facility] Comment on above: Performed By: #### C IGGY, CMADM #### [facility] [address] [place] [address] [address] Jorge L Carey EGFR-NON AF UZBEK >60 Normal >=60 [facility] Comment on above: Performed By: #### C IGGY, CMADM #### [facility] [address] [place] [address] [address] Jorge L Carey Globulin (S) [Mass/Vol] 3.1 g/dL Normal [facility] Comment on above: Performed By: #### C IGGY, CMADM #### [facility] [address] [place] [address] [address] Jorge L Carey Glucose [Mass/Vol] 140 mg/dL Critically high 74-106 T [facility] Comment on above: Performed By: #### C IGGY, CMADM #### [facility] [address] [place] [address] [address] Jorge L Carey Potassium [Moles/Vol] 3.7 mmol/L Normal 3.5-5.1 [facility] Comment on above: Performed By: #### C IGGY, CMADM #### [facility] [address] [place] [address] [address] Jorge L Carey Protein [Mass/Vol] 6.8 g/dL Normal 6.4-8.2 [facility] Comment on above: Performed By: #### C IGGY, RAMYDM #### [facility] [address] [place] [address] [address] Jorge L Carey Sodium [Moles/Vol] 138 mmol/L Normal 136-145 [facility] Comment on above: Performed By: #### C IGGY, CEE #### [facility] [address] [place] [address] Dr. Jorge L Carey Urea nitrogen [Mass/Vol] 13.0 mg/dL Normal 7.0-18.0 [facility] Comment on above: Performed By: #### C IGGY, CEE #### [facility] [address] [place] [address] Dr. Jorge L Carey Urea nitrogen/Creatinine [Mass ratio] 12.5 mg/mg Normal [facility] Comment on above: Performed By: #### C CEE PARKINSON #### [facility] [address] [place] [address] Dr. Jorge L Carey TROPONIN, HIGH SENSITIVITYon 07-01-2022 HSTROP 10.9 pg/mL Normal 4.0-76.1 [facility] Comment on above: Result Comment: CUT- OFF POINTS HAVE BEEN ESTABLISHED BASED ON THE FOURTH UNIVERSAL DEFINITIONS OF MYOCARDIAL INFARCTION. THE UPPER REFERENCE LIMIT (URL) OF TROPONIN, DEFINED THE 99TH PERCENTILE OF cTnI DISTRIBUTION IN A REFERENCE POPULATION, HAS BEEN CONFIRMED THE DECISION THRESHOLD FOR [place] DIAGNOSIS. Performed By: #### B MP, LIPID, ALT, URIC #### [facility] [address] [place] [address] Dr. Jorge L Carey XR CHEST 1 [...] FILIPPO MASTERS Date: 2022-07-01 19:57 Normal [facility] CBC AUTO DIFFon 04-18-2022 BASO # 0.0 103/ul Normal 0.0-0.1 [facility] Comment on above: Performed By: #### C BC #### [facility] [address] [place] [address] Dr. Jorge L Carey Basophils/100 WBC (Bld) 0.7 % Normal 0.2-2.0 [facility] Comment on above: Performed By: #### C BC #### [facility] [address] [place] [address] Dr. Jorge L Carey EO # 0.2 103/ul Normal 0.0-0.7 [facility] Comment on above: Performed By: #### C BC #### [facility] [address] [place] [address] Dr. Jorge L Carey Eosinophils/100 WBC (Bld) 2.6 % Normal 0.9-7.0 [facility] Comment on above: Performed By: #### C BC #### [facility] [address] [place] [address] Dr. Jorge L Carey Erythrocyte distribution width (RBC) [Ratio] 11.5 % Normal 11.0-15.0 [facility] Comment on above: Performed By: #### C BC #### [facility] [address] [place] [address] Dr. Jorge L Carey Hematocrit (Bld) [Volume fraction] 44.7 % Normal 42.0-54.0 [facility] Comment on above: Performed By: #### C BC #### [facility] [address] [place] [address] Dr. Jorge L Carey Hemoglobin (Bld) [Mass/Vol] 15.5 g/dL Normal 14.0-18.0 [facility] Comment on above: Performed By: #### C BC #### [facility] [address] [place] [address] Dr. Jorge L Carey IG # 0.01 10e3/ul Normal 0.00-0.03 [facility] Comment on above: Performed By: #### C BC #### [facility] [address] [place] [address] Dr. Jorge L Carey IG % 0.2 % Normal 0.0-0.5 [facility] Comment on above: Performed By: #### C BC #### [facility] [address] [place] [address] Dr. Jorge L Carey LYMPH # 1.3 103/ul Normal 1.2-3.8 [facility] Comment on above: Performed By: #### C BC #### [facility] [address] [place] [address] Dr. Jorge L Carey Lymphocytes/100 WBC (Bld) 21.3 % Normal 20.5-60.0 [facility] Comment on above: Performed By: #### C BC #### [facility] [address] [place] [address] Dr. Jorge L Carey MANUAL DIFF REQ NO Normal [facility] Comment on above: Performed By: #### C BC #### [facility] [address] [place] [address] Dr. Jorge L Carey MCH (RBC) [Entitic mass] 30.1 pg Normal 25.9-34.0 [facility] Comment on above: Performed By: #### C BC #### [facility] [address] [place] [address] Dr. Jorge L Carey MCHC (RBC) [Mass/Vol] 34.7 g/dL Normal 29.9-35.2 [facility] Comment on above: Performed By: #### C BC #### [facility] [address] [place] [address] Dr. Jorge L Carey MCV (RBC) [Entitic vol] 86.8 fL Normal 80.0-94.0 [facility] Comment on above: Performed By: #### C BC #### [facility] [address] [place] [address] Dr. Jorge L Carey MONO # 0.4 103/ul Normal 0.3-0.8 [facility] Comment on above: Performed By: #### C BC #### [facility] [address] [place] [address] Dr. Jorge L Carey Monocytes/100 WBC (Bld) 7.2 % Normal 1.7-12.0 [facility] Comment on above: Performed By: #### C BC #### [facility] [address] [place] [address] Dr. Jorge L Carey NEUT # 4.1 103/ul Normal 1.4-6.5 [facility] Comment on above: Performed By: #### C BC #### [facility] [address] [place] [address] Dr. Jorge L Carey Neutrophils/100 WBC (Bld) 68.0 % Normal 43.0-75.0 [facility] Comment on above: Performed By: #### C BC #### [facility] [address] [place] [address] Dr. Jorge L Carey Platelet mean volume (Bld) [Entitic vol] 12.0 fL Normal 9.5-13.5 [facility] Comment on above: Performed By: #### C BC #### [facility] [address] [place] [address] Dr. Jorge L Carey PLT 163 103/ul Normal 150-450 [facility] Comment on above: Performed By: #### C BC #### [facility] [address] [place] [address] Dr. Jorge L Carey RBC 5.15 106/ul Normal 4.70-6.10 [facility] Comment on above: Performed By: #### C BC #### [facility] [address] [place] [address] Dr. Jorge L Carey WBC 6.1 103/ul Normal 4.0-11.0 [facility] Comment on above: Performed By: #### C BC #### [facility] [address] [place] [address] Dr. Jorge L Carey GLYCOHEMOGLOBIN A1Con 2021 ADA RECOMMENDATION SEE BELOW Normal [facility] Comment on above: Result Comment: ADA RECOMMENDED LIMIT 4.0 - 6.0 ADA THERAPEUTIC TARGET < 7.0 ACTION SUGGESTED > 7.0 Performed By: #### B MP, LIPID, ALT, URIC #### [facility] [address] [place] [address] Dr. Jorge L Carey Glucose [Mass/Vol] 146 mg/dL Normal [facility] Comment on above: Performed By: #### B MP, LIPID, ALT, URIC #### [facility] [address] [place] [address] Dr. Jorge L Carey HbA1c (Bld) [Mass fraction] 6.7 % Critically high 4.5-6.2 [facility] Comment on above: Performed By: #### B MP, LIPID, ALT, URIC #### [facility] [address] [address] [address] Jorge L Carey LIPID PROFILEon 04-18-2022 CHOL-HDL RATIO NORM SEE BELOW Normal [facility] Comment on above: Result Comment: 3.3 - 4.4 LOW RISK 4.4 - 7.1 AVERAGE RISK 7.1 - 11.0 MODERATE RISK >11.0 HIGH RISK Performed By: #### B MP, LIPID, ALT, URIC #### [facility] [address] [address] [address] Jorge L Carey Cholesterol [Mass/Vol] 117 mg/dL Normal <=200 [facility] Comment on above: Performed By: #### B MP, LIPID, ALT, URIC #### [facility] [address] [place] [address] Dr. Jorge L Carey Cholesterol in HDL [Mass/Vol] 48 mg/dL Normal 40-60 [facility] Comment on above: Performed By: #### B MP, LIPID, ALT, URIC #### [facility] [address] [address] [address] Jorge L Carey Cholesterol in LDL [Mass/Vol] 50.6 mg/dL Normal [facility] Comment on above: Performed By: #### B MP, LIPID, ALT, URIC #### [facility] [address] [place] [address] Dr. Jorge L Carey Cholesterol.total/Ch olesterol in HDL [Mass ratio] 2.4 {ratio} Normal [facility] Comment on above: Performed By: #### B MP, LIPID, ALT, URIC #### [facility] [address] [place] [address] Dr. Jorge L Carey HDL NORMAL > or = 60 mg/dl - LO W CARDIOVASCULAR RISK <40 mg/dl - HIGH CARDIOVASCULAR RISK Normal [facility] Comment on above: Performed By: #### B MP, LIPID, ALT, URIC #### [facility] [address] [place], [place] [id number] Dr. Jorge L Carey LDL CALC NORMAL SEE BELOW Normal [facility] Comment on above: Result Comment: <100 mg/dl OPTIMAL 100 - 129 mg/dl NEAR OR ABOVE OPTIMAL 130 - 159 mg/dl BORDERLINE HIGH 160 - 189 mg/dl HIGH >190 mg/dl VERY HIGH Performed By: #### B MP, LIPID, ALT, URIC #### [facility] [address] [address] [address] Jorge L Carey Triglyceride [Mass/Vol] 92 mg/dL Normal <=150 [facility] Comment on above: Performed By: #### B MP, LIPID, ALT, URIC #### [facility] [address] [place] [address] Dr. Jorge L Carey VLDL CALC 18.4 mg/dL Normal [facility] Comment on above: Performed By: #### B MP, LIPID, ALT, URIC #### [facility] [address] [place] [address] Dr. Jorge L Carey MICROALBUMIN, RAND URon 11-0 mALB <1.3 Normal <=30.0 [facility] Comment on above: Performed By: #### M ALBR #### [facility] [address] [place] [address] Dr. Jorge L Carey PROF CHEM 8 (BAS METB)on Anion gap [Moles/Vol] 9.5 mmol/L Normal [facility] Comment on above: Performed By: #### B MP, LIPID, ALT, URIC #### [facility] [address] [address] [address] Jorge L Carey Calcium [Mass/Vol] 8.6 mg/dL Normal 8.5-10.1 [facility] Comment on above: Performed By: #### B MP, LIPID, ALT, URIC #### [facility] [address] [address] [address] Jorge L Carey Chloride [Moles/Vol] 102 mmol/L Normal 98-107 [facility] Comment on above: Performed By: #### B MP, LIPID, ALT, URIC #### [facility] [address] [place], [place] [id number] Dr. Jorge L Carey CO2 [Moles/Vol] 30.8 mmol/L Normal 21.0-32.0 [facility] Comment on above: Performed By: #### B MP, LIPID, ALT, URIC #### [facility] [address] [address] [address] Jorge L Carey Creatinine [Mass/Vol] 0.95 mg/dL Normal 0.70-1.30 [facility] Comment on above: Performed By: #### B MP, LIPID, ALT, URIC #### [facility] [address] [address] [address] Jorge L Carey EGFR-AF UZBEK >60 Normal >=60 [facility] Comment on above: Performed By: #### B MP, LIPID, ALT, URIC #### [facility] [address] [place] [address] Dr. Jorge L Carey EGFR-NON AF UZBEK >60 Normal >=60 [facility] Comment on above: Performed By: #### B MP, LIPID, ALT, URIC #### [facility] [address] [address] [address] Jorge L Carey Glucose [Mass/Vol] 142 mg/dL Critically high 74-106 [facility] Comment on above: Performed By: #### B MP, LIPID, ALT, URIC #### [facility] [address] [place] [address] Dr. Jorge L Carey Potassium [Moles/Vol] 4.3 mmol/L Normal 3.5-5.1 [facility] Comment on above: Performed By: #### B MP, LIPID, ALT, URIC #### [facility] [address] [address] [address] Jorge L Carey Sodium [Moles/Vol] 138 mmol/L Normal 136-145 [facility] Comment on above: Performed By: #### B MP, LIPID, ALT, URIC #### [facility] [address] [address] [address] Jorge L Carey Urea nitrogen [Mass/Vol] 14.0 mg/dL Normal 7.0-18.0 [facility] Comment on above: Performed By: #### B MP, LIPID, ALT, URIC #### [facility] [address] [address] [address] Jorge L Carey Urea nitrogen/Creatinine [Mass ratio] 14.7 mg/mg Normal [facility] Comment on above: Performed By: #### B MP, LIPID, ALT, URIC #### [facility] [address] [address] [address] Jorge L Carey SGPTon 04-18-2022 ALT [Catalytic activity/Vol] 27 U/L Normal 16-63 [facility] Comment on above: Performed By: #### B MP, LIPID, ALT, URIC #### [facility] [address] [address] [address] Jorge L Carey URIC ACID SERUMon 04-18-2022 Urate [Mass/Vol] 5.5 mg/dL Normal 3.5-7.2 [facility] Comment on above: Performed By: #### B MP, LIPID, ALT, URIC #### [facility] [address] [address] [address] Jorge L Carey GLYCOHEMOGLOBIN A1Con 2021 ADA RECOMMENDATION SEE BELOW Normal [facility] Comment on above: Result Comment: ADA RECOMMENDED LIMIT 4.0 - 6.0 ADA THERAPEUTIC TARGET < 7.0 ACTION SUGGESTED > 7.0 Performed By: #### B MP, LIPID, ALT, URIC #### [facility] [address] [address] [address] Jorge L Carey Glucose [Mass/Vol] 160 mg/dL Normal [facility] Comment on above: Performed By: #### B MP, LIPID, ALT, URIC #### [facility] [address] [address] [address] Jorge L Carey HbA1c (Bld) [Mass fraction] 7.2 % Critically high 4.5-6.2 [facility] Comment on above: Performed By: #### B MP, LIPID, ALT, URIC #### [facility] [address] [address] [address] Jorge L Carey Ambulatory Visit Summaryon 0 10-06-2021 Ambulatory Visit Summary FELIPE QUAN:1955 Visit Date:10/06/2021 Ambulatory Visit Instructions Your Diagnosis BPH with urinary obstruction Elevated PSA Tests Performed Urnls Dip Stick Auto w/o Microscopy POC [id number] Your Care Team Attending Physician - Hola [...] Hola AMBRIZ MD Where: [facility] Patient Educationon 10-07-19 Patient [...] Follow these instructions at home: ? Take [id number] and prescription medicines only as told by [...] You d (more content not included)... Normal [facility] Urology Office/Clinic Noteon 10-06-2021 Urology Office/Clinic Note [...] year 10/06/2022 EDT [facility] [address] [place] [address] [phone] Additional Instructions: PSA Patient Education Benign Prostatic [...] (10/06/21 08:08:00) (more content not included)... Normal [facility] Comment on above: Result Comment: Elec tronically Signed By: Hola AMBRIZ MD\.br\Date and Time Signed: 10/06/21 08:39 EDT\.br\Electronically Co-Signed By: Ciarra Mckeon MA\.br\Date and Time Co-Signed: 10/06/21 08:38 EDT [facility] 09-19-2021 Lab Reports [id number] D:127 Normal [facility] GLYCOHEMOGLOBIN A1Con 2021 ADA RECOMMENDATION ADA THERAPEUTIC TARG ET 6.0 - 7.0 ACTION SUGGESTED > 7.0 Normal [facility] Comment on above: Performed By: #### B MP, LIPID, ALT, URIC #### [facility] [address] [address] [address] Jorge L Carey Glucose [Mass/Vol] 177 mg/dL Normal [facility] Comment on above: Performed By: #### B MP, LIPID, ALT, URIC #### [facility] [address] [place], [place] [address] Dr. Jorge L Carey HbA1c (Bld) [Mass fraction] 7.8 % Critically high <=6.0 [facility] Comment on above: Performed By: #### B MP, LIPID, ALT, URIC #### [facility] [address] [address] [address] Jorge L Carey [facility] 09-17-2020 Glucose [Mass/Vol] 151 mg/dL Normal [facility] Comment on above: Result Comment: PERF ORMED BY: [place] [address] PATHOLOGIST [facility] SUSAN SEXTON M.D. Performed By: #### O UTREACH GLYCO #### [facility] [address] HbA1c (Bld) [Mass fraction] 6.9 % High 4.3-5.6 [facility] Comment on above: Result Comment: Incr eased risk for diabetes: 5.7 - 6.4 diabetes: >6.4 glycemic control for adults with diabetes: <7.0 Performed By: #### O UTREACH GLYCO #### [facility] [address] [place] [address] Vital Signs Date Time Vital Sign Value Performing Clinician Facility 07-08-2023 09:00-0500 Body height 190.5 cm Bogdan [facility] Other [facility] Other 07-08-2023 09:00-0500 Body mass index (BMI) [Ratio] 32.62 kg/m2 Bogdan Ball Other [facility] Other 07-08-2023 09:00-0500 Body weight 118.39 kg Bogdan Ball Other [facility] Other 07-08-2023 09:00-0500 Diastolic blood pressure 81 mm[Hg] Bogdan Ball Other [facility] Other 07-08-2023 09:00-0500 Respiratory rate 12 /min Bogdan Ball Other [facility] Other 07-08-2023 09:00-0500 Systolic blood pressure 117 mm[Hg] Bogdan Ball Other [facility] Other 05-01-2023 08:30-0500 Body height 190.5 cm Bogdan Ball Other [facility] Other 05-01-2023 08:30-0500 Body mass index (BMI) [Ratio] 32.19 kg/m2 Bogdan Ball Other [facility] Other 05-01-2023 08:30-0500 Body weight 116.85 kg Bogdan Ball Other [facility] Other 05-01-2023 08:30-0500 Diastolic blood pressure 81 mm[Hg] Bogdan Ball Other [facility] Other 05-01-2023 08:30-0500 Respiratory rate 12 /min Bogdan Ball Other [facility] Other 05-01-2023 08:30-0500 Systolic blood pressure 135 mm[Hg] Bogdan Ball Other [facility] Other 12-26-2022 08:30-0400 Body height 190.5 cm Bogdan Ball Other [facility] Other 12-26-2022 08:30-0400 Body mass index (BMI) [Ratio] 31.54 kg/m2 Bogdan Ball Other [facility] Other 12-26-2022 08:30-0400 Body weight 114.49 kg Bogdan Ball Other [facility] Other 12-26-2022 08:30-0400 Diastolic blood pressure 85 mm[Hg] Bogdan Ball Other [facility] Other 12-26-2022 08:30-0400 Respiratory rate 12 /min Bogdan Ball Other [facility] Other 12-26-2022 08:30-0400 Systolic blood pressure 139 mm[Hg] Bogdan Ball Other [facility] [email or web address] Other 11-09-2022 10:58-0400 Blood Pressure Location Hola AMBRIZ [facility] 11-09-2022 10:58-0400 Diastolic blood pressure 80 mm[Hg] Hola AMBRIZ [facility] 11-09-2022 10:58-0400 Heart rate 78 /min Hola AMBRIZ [facility] 11-09-2022 10:58-0400 Respiratory rate 16 /min Hola AMBRIZ [facility] 11-09-2022 10:58-0400 Systolic blood pressure 130 mm[Hg] Hola AMBRIZ [facility] 10-05-2022 12:15-0400 Body height 190.5 cm Bogdan Ball Other [facility] [email or web address] Other 10-05-2022 12:15-0400 Body mass index (BMI) [Ratio] 31.17 kg/m2 Bogdan Ball Other [facility] [employer] Other 10-05-2022 12:15-0400 Body weight 113.13 kg Bogdan Ball Other [facility] [employer] Other 10-05-2022 12:15-0400 Diastolic blood pressure 95 mm[Hg] Bogdan Ball Other [facility] [employer] Other 10-05-2022 12:15-0400 Respiratory rate 12 /min Bogdan Ball Other [facility] [employer] Other 10-05-2022 12:15-0400 Systolic blood pressure 168 mm[Hg] Bogdan Ball Other [facility] Other 08-23-2022 08:30-0500 Body height 190.5 cm Bogdan Ball Other [facility] Other 08-23-2022 08:30-0500 Body mass index (BMI) [Ratio] 31.42 kg/m2 Bogdan Ball Other [facility] Other 08-23-2022 08:30-0500 Body weight 114.04 kg Bogdan Ball Other [facility] Other 08-23-2022 08:30-0500 Diastolic blood pressure 86 mm[Hg] Bogdan Ball Other [facility] Other 08-23-2022 08:30-0500 Respiratory rate 12 /min Bogdan Ball Other [facility] Other 08-23-2022 08:30-0500 Systolic blood pressure 132 mm[Hg] Bogdan Ball Other [facility] Other 10-06-2021 08:14-0400 Blood Pressure Location Hola [place] Self Representation Document Preparation [facility] 10-06-2021 08:14-0400 Diastolic blood pressure 98 mm[Hg] Hola AMBRIZ [facility] 10-06-2021 08:14-0400 Heart rate 78 /min Hola AMBRIZ [facility] 10-06-2021 08:14-0400 Systolic blood pressure 145 mm[Hg] Hola AMBRIZ [facility] Encounters Encounter Date Encounter Type Care Provider Facility Start: 08-19-2023 End: 08-20-2023 ambulatory Dm Cyr MD Facility:[facility] Start: 07-29-2023 End: 07-30-2023 ambulatory Dm Cyr MD [facility] Other Start: 07-29-2023 Telephone encounter Bogdan HORTON [facility] Start: 07-15-2023 End: 07-16-2023 ambulatory Dm Cyr MD Facility:[facility] Start: 07-08-2023 End: 07-08-2023 ambulatory Bogdan Green Other [facility] Other Start: 07-08-2023 Office outpatient vi sit 25 minutes Bogdan Green [facility] Start: 06-24-2023 End: 06-25-2023 ambulatory Dm Cyr MD Facility:[facility] Start: 05-20-2023 End: 05-21-2023 ambulatory Dm Cyr MD Facility:[facility] Start: 05-10-2023 End: 05-10-2023 ambulatory Bogdan Green Other [facility] Other Start: 05-10-2023 Office outpatient vi sit 15 minutes Bogdan Green [facility] Start: 05-01-2023 End: 05-01-2023 ambulatory Bogdan Green Other [facility] Other Start: 05-01-2023 Patient encounter procedure Bogdan Green [facility] Start: 04-24-2023 End: 04-24-2023 ambulatory Bogdan Green Other [facility] Other Start: 04-24-2023 Telephone encounter Bogdan HORTON [facility] Start: 02-25-2023 End: 02-25-2023 ambulatory Bogdan Green Other [facility] Other Start: 02-25-2023 Telephone encounter Bogdan Green [facility] Start: 12-27-2022 End: 12-27-2022 ambulatory Bogdan Green Other [facility] Other Start: 12-27-2022 Telephone encounter Bogdan Green [facility] Start: 12-26-2022 End: 12-26-2022 ambulatory Bogdan Green Other [facility] Other Start: 12-26-2022 Office outpatient vi sit 25 minutes Bogdan Ball [facility] Start: 11-19-2022 End: 11-19-2022 ambulatory Bogdan Peter Other [facility] Other Start: 11-19-2022 Telephone encounter Bogdan Green [facility] Start: 11-09-2022 ambulatory Hola AMBRIZ Facili ty:[facility] [place] Start: 11-09-2022 End: 11-09-2022 Patient encounter procedure Hola AMBRIZ [facility] Start: 10-22-2022 End: 10-22-2022 ambulatory Bogdan Green Other [facility] Other Start: 10-22-2022 Telephone encounter Bogdan Green [facility] Start: 10-18-2022 End: 10-18-2022 ambulatory Bogdan Green Other [facility] Other Start: 10-18-2022 Telephone encounter Bogdan Green [facility] Start: 10-05-2022 End: 10-05-2022 ambulatory Bogdan Green Other [facility] Other Start: 10-05-2022 Office outpatient vi sit 15 minutes Bogdan Ball [facility] Start: 09-27-2022 End: 09-27-2022 ambulatory Bogdan Ball Other [facility] Other Start: 09-27-2022 Telephone encounter Bogdan Green [facility] Start: 09-25-2022 End: 09-25-2022 ambulatory Bogdan Green Other [facility] Other Start: 09-25-2022 Telephone encounter Bogdan Green [facility] Start: 09-21-2022 End: 09-21-2022 ambulatory Bogdan Green Other [facility] Other Start: 09-21-2022 Telephone encounter Bogdan Green [facility] Start: 08-23-2022 End: 08-23-2022 ambulatory Bogdan Green Other [facility] Other Start: 08-23-2022 Office outpatient vi sit 25 minutes Bogdan Green [facility] Start: 08-17-2022 End: 08-18-[address] BOGDAN GREEN Facility:[facility] Start: 08-14-2022 End: 08-14-2022 ambulatory Bogdan Green Other [facility] Other Start: 08-14-2022 Telephone encounter Bogdan Green [facility] Start: 07-01-2022 End: 07-01-[address] BOGDAN GREEN Facility:[facility] Start: 04-25-2022 Adult health examination Bogdan Green Other [facility] Other Start: 04-18-2022 End: 04-19-[address] BOGDAN GREEN Facility:[facility] Start: 01-20-2022 End: 01-21-[address] CONCEPCION LISTED REQUEST Facility:[facility] Start: 10-06-2021 ambulatory Hola AMBRIZ Facility :[facility] Start: 10-06-2021 End: 10-07-2021 ambulatory Hola AMBRIZ Facility:[facility] Start: 10-06-2021 End: 10-06-2021 Patient encounter procedure Hola AMBRIZ [facility] Start: 09-16-2021 End: 09-17-[address] HOLA AMBRIZ . Facility:[facility] Start: 09-15-2021 End: 09-16-[address] CONCEPCION LISTED REQUEST Facility:[facility] Start: 08-29-[address] BOGDAN GREEN Facili ty:[facility] Procedures Date Procedure Procedure Detail Performing Clinician Start: 09-16-[address] NORRIS GREEN Comment on above: Performed By: #### B MP, LIPID, ALT, URIC #### [facility] [address] [address] [address] Jorge L Carey Start: 03-29-2017 General examination of patient Bogdan Peter Other Start: 12-20-2015 Cystoscopy Hola FAITH Start: 12-15-2013 Hyperlipidemia screening Bogdan Peter Other Start: 12-15-2013 Screening for malign ant neoplasm of prostate Bogdan Peter Other Colonoscopy Hola AMBRIZ Depression screening Dwight Green Other History of hernia repair Maureen AMBRIZ Perirectal abscess (disorder) Hola AMBRIZ Screening for malign ant neoplasm of colon Bogdan Green Other Immunizations Immunization Date Immunization Notes Care Provider Cinthia bartlett 04-29-2023 zoster vaccine recombinant Bogdan Green Other [facility] Other 04-26-2023 influenza, high dose seasonal, preservative-free Bogdan Green Other [facility] Other 02-26-2023 zoster vaccine recombinant Bogdan Peter Other [facility] Other 04-25-2022 pneumococcal 20-alber nt conjugate vaccine Hola AMBRIZ [facility] 04-16-2022 influenza virus vaccine, split virus (incl. purified surface antigen) Bogdan Green Other [facility] Other 04-16-2022 influenza virus vaccine, unspecified formulation Hola AMBRIZ [facility] 03-23-2022 SARS-CoV-2 (COVID-19 ) [id number] Hola AMBRIZ [facility] 05-08-2021 SARS-CoV-2 (COVID-19 ) mRNA BNT-162b2 vax Hola AMBRIZ [facility] 04-22-2021 influenza virus vaccine, split virus (incl. purified surface antigen) Bogdan Green Other [facility] Other 04-22-2021 influenza virus vaccine, unspecified formulation Hola AMBRIZ [facility] 03-30-2021 influenza virus vaccine, unspecified formulation Hola AMBRIZ [facility] 09-16-2020 COVID-19, mRNA, LNP- S, PF, 30 mcg/0.3 mL dose; 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: [Pfizer-BioNTech COVID-19 Vaccine] Hola AMBRIZ [facility] Comment on above: Reason for Medicatio n: Prophylaxis 08-26-2020 COVID-19, mRNA, LNP- S, PF, 30 mcg/0.3 mL dose; 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: [Pfizer-BioNTech COVID-19 Vaccine] Hola AMBRIZ [facility] Comment on above: Reason for Medicatio n: Prophylaxis 04-16-2020 influenza virus vaccine, split virus (incl. purified surface antigen) Bogdan Peter Other [facility] Other 04-16-2020 influenza virus vaccine, unspecified formulation Hola AMBRIZ [facility] pneumococcal Conjuga te, unspecified formulation; 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: [Need for prophylactic vaccination against Streptococcus pneumoniae (pneumococcus)] Bogdan Green Other [facility] Other Payers Date Payer Category Payer Medicare 2022 Unknown 2021 Medicare [id number] 2020 Unknown [id number] 1958 Medicare [id number] 1959 Self-pay [id number] 1959 Unknown [id number] 1959 Unknown [id number] 1956 Unknown [id number] 2.16.84 [id number] 1956 Unknown [id number] 2.16.84 [id number] 1956 Unknown [id number] 2.16.84 [id number] 1956 Unknown [id number] 2.16.84 0.1.496002.3.579.2.593 1956 Unknown [id number] 2.16.84 0.1.968572.3.579.2.593 1956 Unknown [id number] 2.16.8 40.1.421275.3.579.2.727 1956 Unknown [id number] 2.16.8 40.1.622182.3.579.2.727 1956 Unknown [id number] 2.16. [id number] 1956 Unknown [id number] 2.16. 840.1.238182.3.579.2.196 1956 Unknown [id number] 2.16. 840.1.883767.3.579.2.196 1956 Unknown [id number] 2.16. 840.1.557649.3.579.2.196 1956 Unknown [id number] 2.16. [id number] [facility] [id number] [id number] Unknown [id number] 2.16.84 [id number] Unknown [id number] Social History Date Type Detail Facility Start: 10-06-2021 End: 11-09-2022 Tobacco smoking status Never smoked tobacco (finding) [facility] Sex Assigned At Male [facility] Tobacco smoking status Never [facility] Functional Status Date Assessment Result Facility 11-09-2022 Functional Status N/A [facility] Clinical Notes 10-06-2021 to 07-29-2023 Note Date & Type Note Facility 07-29-2023 Evaluation note Encounter Date Diagnosis Assessment Notes Jul, Type 2 diabetes mellitus with hyperglycemia , without long-term current use of insulin (ICD-10 - E11.65) [facility] 01-22-2024 Evaluation note* Encounter Date Diagnosis [...] index [BMI] 32.0-32.9, adult (ICD-10 - Z68.32) [facility] Other 11-24-2023 Evaluation note* Encounter Date Diagnosis [...] Microalbumin, Dilated eye exam and Foot exam [facility] Other 11-15-2023 Evaluation note* Encounter Date Diagnosis [...] flares Sep, Thrombocytopenia, unspecified (ICD-10 - D69.6) [facility] Other 11-15-2023 Evaluation note* Encounter Date Diagnosis [...] flares Sep, Thrombocytopenia, unspecified (ICD-10 - D69.6) [facility] Other 11-08-2023 Evaluation note* Encounter Date Diagnosis Assessment Notes Treatment Notes Treatment Clinical Notes Apr, Screening PSA (prostate specific antigen) (ICD-10 - Z12.5) Apr, Type 2 diabetes mellitus with hyperglycemia, without long-term current use of insulin (ICD-10 - E11.65) Apr, Elevated cholesterol (ICD-10 - E78.00) Apr, Primary hypertension (ICD-10 - I10) Sep, Thrombocytopenia, unspecified (ICD-10 - D69.6) Thrombocytopenia [facility] Other 07-12-2023 Evaluation note* Encounter Date Diagnosis [...] exercise for 30 minutes, 3-5 times weekly. 12 Preston, 2023 Body mass index [BMI] 31.0-31.9, adult (ICD-10 - Z68.31) Dec, alf (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 (ICD-10 - Z79.4) [facility] Other 05-26-2023 Hospital Discharge instructions Patient Education [...] treatment? Where to find more information [employer]: www.cancer.org [employer]: www.auanet.org Contact a health care [...] provider. Document Revised: 11/27/2021 Document Reviewed: 11/27/2021 [facility] Patient Education 2022 [employer]. Follow Up Care 10/06/2021 08:40:21 With:JOSE MCMANUS, Hola Rushing, URL Address: [facility] [address], [place] [address]- When: Unknown [facility] 05-08-2023 Evaluation note* Encounter Date Diagnosis Assessment Notes Treatment Notes Treatment Clinical Notes October, Primary hypertension (ICD-10 - I10) [facility] [email or web address] Other 05-04-2023 Evaluation note* Encounter Date Diagnosis Assessment Notes Treatment Notes Treatment Clinical Notes October, Primary hypertension (ICD-10 - I10) [facility] [email or web address] Other 04-21-2023 Evaluation note* Encounter Date Diagnosis [...] and Glimepiride appear to be controlling BS. [facility] Other 04-13-2023 Evaluation note* Encounter Date Diagnosis Assessment Notes Treatment Notes Treatment Clinical Notes Sep, Type 2 diabetes mellitus with hyperglycemia (ICD-10 - E11.65) Sep, alf (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 (ICD-10 - Z79.4) [facility] Other 04-11-2023 Evaluation note* Encounter Date Diagnosis Assessment Notes Treatment Notes Treatment Clinical Notes Sep, Type 2 diabetes mellitus with hyperglycemia, without long-term current use of insulin (ICD-10 - E11.65) [facility] Other 04-07-2023 Evaluation note* Encounter Date Diagnosis Assessment Notes Treatment Notes Treatment Clinical Notes Sep, Type 2 diabetes mellitus with hyperglycemia (ICD-10 - E11.65) [facility] Other 03-09-2023 Evaluation note* Encounter Date Diagnosis [...] Reviewed red flag symptoms and nerve impingement [facility] Other 02-28-2023 Evaluation note* Encounter Date Diagnosis Assessment Notes Treatment Notes Treatment Clinical Notes Jul, Type 2 diabetes mellitus with hyperglycemia, without long-term current use of insulin (ICD-10 - E11.65) [facility] Other 04-22-2022 Hospital Discharge instructions Patient Education [...] urethra. Follow these instructions at home: Take exzi-efo-iroglpy and prescription medicines only as told by [...] 06/03/2006 Document Revised: 04/28/2019 Document Reviewed: 07/08/2017 [facility] Patient Education 2020 [employer]. Follow Up Care 10/03/2020 15:00:49 With:Hola AMBRIZ MD, URL Address: [facility] [address], [place] [address]- [phone] When:10/06/2022 [facility] evaluation + Plan note Future Appointments Appointment Date:10/12/2022 08:00:00 AM Scheduled Provider:Hola AMBRIZ MD Location:[facility] Appointment Type:URO Office Visit Diagnostic Tests Pending * PSA Total 10/06/21 [facility] evaluation + Plan note Future Appointments Appointment Date:11/18/2023 08:45:00 AM Scheduled Provider:Hola AMBRIZ MD Location:[facility] Appointment Type:URO Office Visit Diagnostic Tests Pending * PSA Free & Total 11/09/22 [facility] [employer] Other Evaluation noteNo InformationNowashington [facility] [employer] Other Hisygbb general Narrative - Reported* Type Description Date [...] CYSTOSCOPY 2016 Hospitalization History SEE SURGICAL HX [facility] [employer] Other Hisjpfm general Narrative - [facility] [employer] Other Hisjxhe general Narrative - Reported* Type Description Date [...] CYSTOSCOPY 2016 Hospitalization History SEE SURGICAL HX [facility] [email or web address] Other Hospital course Narrative No data available for this section [facility] progress note No data available for this section [facility] Summary Purpose Family History No Family [...] well ness visit, initial (Z00.00) Referral Organization formerly [facility] Referring Provider First Name Bogdan Referring Provider Last Name Peter Referring Provider Specialty Internal Me dicine Referred Organization [facility] Referred Provider Swapnil French Referred Address [address] [place], [place],[address] Referred Provider Specialty Pain Medicin e Referral [...] Notes Include XR lumbar sp ine f: [id number] Additional Source Comments (unrecognized sect ion and content) No Status Records FoundNo Status Records FoundNo Status Records FoundNo Status Records Found INFORMATION SOURCE (unrecogn ized section and content) DATE CREATED AUTHOR 07/30/2021 [facility] DATE CREATED AUTHOR AUTHOR'S ORGANIZ ATION 08/22/2022 [facility] DATE CREATED AUTHOR AUTHOR'S ORGANIZ ATION 09/07/2022 [facility] DATE CREATED AUTHOR AUTHOR'S ORGANIZ ATION 08/23/2023 [facility] REASON FOR VISIT (unrecogniz ed section and content) BS readingsElevated blood cifuentes [id number] [employer] ResultsBP readingsrefillelevated BPMedication4 MONTH FOLLOW UP Patient Care team informatio n (unrecognized section and content) Personnel Name: BOGDAN GREEN DO Address: Address: [address] [place], [place] [address] FOR RECORDS PERTAINING TO PATIENTS WHO [...] BE BASED ON THE PRIMARY CLINICAL RECORDS. [facility] [employer] [facility]. provides no warranty or guarantee of the accuracy or completeness of information in this document.
== END 2023-09-26 10:12 | disposition home or self-care (01) ==
LOC: PM 10:11
PROVIDERS: PCP Internal Medicine; Visit Provider Nurse Practitioner
DX: M47.816 Spondylosis without myelopathy or radiculopathy, lumbar region (principal); M46.1 Sacroiliitis, not elsewhere classified
CPT/HCPCS: G0463

== ENCOUNTER 2023-10-12 06:38 | Outpatient (OUT) | payer MEDICARE, BC, SELFPAY ==
--- OUTSIDE RECORDS SUMMARY | 2023-10-12 06:41 | XMS_ITS | CCD ---
Author Organization [facility] Care Team Providers Care Broadcast Operations Director Name Role Phone BOGDAN GREEN Primary Care [...] Unavailable Giedraitis , Andrius Vmarietta Attending Unavailable Gishai MCMANUS, Andrius Tom Attending Unavailable Gieditis , Andrius Vmarietta Attending Unavailable Gieditis , Andri Vmarietta Attending Unavailable Allergies Allergy Classification Reported Allergen(s) Allergy Type Date of Onset Reaction(s) Facility (1 source) No Known Medication Allergies; 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: [No Known Medication Allergies] Propensity to adverse reactions (disorder) [facility] Repository (2 sources) patient allergy list reviewed by nurse or physicia Propensity to adverse reactions Comment:Done Girls Guide To Other Medications Current Medications Medication Drug Class(es) [...] day(s), # 90 tab(s), Refills(s) 3, Pharmacy: [facility]/pharmacy #[id number], 195, cm, 11/09/22 11:00:00 EDT, Height/Length Dosing, 111, kg, 11/09/22 11:00:00 EDT, Weight Dosing Start Date: 11/09/22 Stop Date: 11/04/23 Status: Ordered Start: 10-06-2021 take 1 tablet by osbaldo th once daily finasteride 5 mg Tab 5 mg = 1 tab(s), Oral, Daily, # 90 tab(s), Refills(s) 3, Pharmacy: [facility]/pharmacy #[id number], 195, cm, 10/06/21 8:16:00 EDT, [...] bid for 5 days Apr, Active [place] 5/16 (15 sources) Start: 09-27-2022 Start: 09-27-2022 [place] 5/ 16 Use to inject insulin qd SC daily for 30 days Sep, Active tamsulosin hydrochloride 0.4 mg oral capsule (12 sources) alpha-Adrenergic Andrew Start: 10-06-2021 End: 10-27-2023 take 1 capsule by mouth twice daily tamsulosin 0.4 mg Cap 0.4 mg = 1 cap(s), Oral, BID, X 30 day(s), # 60 cap(s), Refills(s) 11, Pharmacy: [facility]/pharmacy #[id number], 195, cm, 10/06/21 8:16:00 EDT, [...] acid 4700 mg / polyethylene glycol 3350 869195 mg / potassium chloride 1015 mg / [...] 05-09-2015 Chronic Other aftercare (1 source) Other long term care phlebotomist (current) drug therapy; 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] Onset: 07-03-2022 Episodic Other aftercare (1 source) long term care phlebotomist (current) use of oral hypoglycemic drugs; 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: [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 USE ORAL HYPOGLYCEMIC DX] Onset: 07-03-2022 Episodic Other aftercare (15 sources) Long-term current use of insulin; 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: [correction (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] Episodic Other aftercare (2 sources) correction (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 Episodic Other aftercare (2 sources) Long-term current use of drug therapy; 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: [Other halfway (current) drug therapy] Episodic Other and unspecified [...] 2022 ADA RECOMMENDATION SEE BELOW Normal [facility] Comment on above: Result Comment: ADA RECOMMENDED LIMIT 4.0 - 6.0 ADA THERAPEUTIC TARGET < 7.0 ACTION SUGGESTED > 7.0 Performed By: #### B MP, LIPID, ALT, URIC #### [facility] [address], [place] [address] Dr. Jorge L Carey Glucose [Mass/Vol] 148 mg/dL Normal [facility] Comment on above: Performed By: #### B MP, LIPID, ALT, URIC #### [facility] [address] [place], [place] [address] Dr. Jorge L Carey HbA1c (Bld) [Mass fraction] 6.8 % Critically high 4.5-6.[address] [facility] Comment on above: Performed By: #### B MP, LIPID, ALT, URIC #### [facility] [address] [place] [address] Dr. Jorge L Carey CARDIAC DANAY ADMITon 023 CK [Catalytic activity/Vol] 59 U/L Normal 39-[address] [facility] Comment on above: Performed By: #### C IGGY, CMADM #### [facility] [address] [place] [address] Dr. oJrge L Carey CK.MB [Mass/Vol] 0.99 ng/mL Normal <=3.60 [facility] Comment on above: Performed By: #### C IGGY CMADM #### [facility] [address] [place] [address] Dr. Jorge L Carey HSTROP 10.0 pg/mL Normal 4.0-76.[address] [facility] Comment on above: Result Comment: CUT- OFF POINTS HAVE BEEN ESTABLISHED BASED ON THE FOURTH UNIVERSAL DEFINITIONS OF MYOCARDIAL INFARCTION. THE UPPER REFERENCE LIMIT (URL) OF TROPONIN, DEFINED THE 99TH PERCENTILE OF cTnI DISTRIBUTION IN A REFERENCE POPULATION, HAS BEEN CONFIRMED THE DECISION THRESHOLD FOR DC DIAGNOSIS. Performed By: #### C IGGY CMADM #### [facility] [address] [place] [address] Dr. Jorge L Carey GARLAND 52 ng/mL Normal 16-[address] [facility] Comment on above: Performed By: #### C IGGY, CMADM #### [facility] [address] [place] [address] Dr. Jorge L Carey CBC AUTO DIFFon 07-01-2022 BASO # 0.0 103/ul Normal 0.0-0.1 [facility] Comment on above: Performed By: #### B MP, LIPID, ALT, URIC #### [facility] [address] [place] [address] Dr. Jorge L Carey Basophils/100 WBC (Bld) 0.3 % Normal 0.2-2.[address] [facility] Comment on above: Performed By: #### B MP, LIPID, ALT, URIC #### [facility] [address] [place] [address] Dr. Jorge L Carey EO # 0.1 103/ul Normal 0.0-0.[address] [facility] Comment on above: Performed By: #### B MP, LIPID, ALT, URIC #### [facility] [address] [place] [address] Dr. Jorge L Carey Eosinophils/100 WBC (Bld) 0.9 % Normal 0.9-7.0 [facility] Comment on above: Performed By: #### B MP, LIPID, ALT, URIC #### [facility] [address] [place] [address] Dr. Jorge L Carey Erythrocyte distribution width (RBC) [Ratio] 11.7 % Normal 11.0-15.[address] [facility] Comment on above: Performed By: #### B MP, LIPID, ALT, URIC #### [facility] [address] [place] [address] Dr. Jorge L Carey Hematocrit (Bld) [Volume fraction] 41.1 % Critically low 42.0-54.0 [facility] Comment on above: Performed By: #### B MP, LIPID, ALT, URIC #### [facility] [address] [place] [address] Dr. Jorge L Carey Hemoglobin (Bld) [Mass/Vol] 14.5 g/dL Normal 14.0-18.0 [facility] Comment on above: Performed By: #### B MP, LIPID, ALT, URIC #### [facility] [address] [place] [address] Dr. Jorge L Carey IG # 0.02 10e3/ul Normal 0.00-0.[address] [facility] Comment on above: Performed By: #### B MP, LIPID, ALT, URIC #### [facility] [address] [place] [address] Dr. Jorge L Carey IG % 0.3 % Normal 0.0-0.[address] [facility] Comment on above: Performed By: #### B MP, LIPID, ALT, URIC #### [facility] [address] [place] [address] Dr. Jorge L Carey LYMPH # 1.1 103/ul Critically low 1.2-3.8 The [facility] Comment on above: Performed By: #### B MP, LIPID, ALT, URIC #### [facility] [address] [place] [address] Dr. Jorge L Carey Lymphocytes/100 WBC (Bld) 16.6 % Critically low 20.5-60.0 [facility] Comment on above: Performed By: #### B MP, LIPID, ALT, URIC #### [facility] [address] [place] [address] Dr. Jorge L Carey MANUAL DIFF REQ NO Normal [facility] Comment on above: Performed By: #### B MP, LIPID, ALT, URIC #### [facility] [address] [place] [address] Dr. Jorge L Carey MCH (RBC) [Entitic mass] 30.1 pg Normal 25.9-34.0 [facility] Comment on above: Performed By: #### B MP, LIPID, ALT, URIC #### [facility] [address] [place] [address] Dr. Jorge L Carey MCHC (RBC) [Mass/Vol] 35.3 g/dL Critically high 29.9-35.[address] [facility] Comment on above: Performed By: #### B MP, LIPID, ALT, URIC #### [facility] [address] [place] [address] Dr. Jorge L Carey MCV (RBC) [Entitic vol] 85.4 fL Normal 80.0-94.[address] [facility] Comment on above: Performed By: #### B MP, LIPID, ALT, URIC #### [facility] [address] [place] [address] Dr. Jorge L Carey MONO # 0.4 103/ul Normal 0.3-0.[address] [facility] Comment on above: Performed By: #### B MP, LIPID, ALT, URIC #### [facility] [address] [place] [address] Dr. Jorge L Carey Monocytes/100 WBC (Bld) 5.1 % Normal 1.7-12.0 [facility] Comment on above: Performed By: #### B MP, LIPID, ALT, URIC #### [facility] [address] [place] [address] [address] Jorge L Carey NEUT # 5.3 103/ul Normal 1.4-6.[address] [facility] Comment on above: Performed By: #### B MP, LIPID, ALT, URIC #### [facility] [address] [place] [address] [address] Jorge L Carey Neutrophils/100 WBC (Bld) 76.8 % Critically high 43.0-75.0 [facility] Comment on above: Performed By: #### B MP, LIPID, ALT, URIC #### [facility] [address] [place] [address] [address] Jorge L Carey Platelet mean volume (Bld) [Entitic vol] 12.1 fL Normal 9.5-13.5 [facility] Comment on above: Performed By: #### B MP, LIPID, ALT, URIC #### [facility] [address] [place] [address] Dr. Jorge L Carey PLT 147 103/ul Critically low 150-450 [facility] Comment on above: Performed By: #### B MP, LIPID, ALT, URIC #### [facility] [address] [place] [address] [address] Jorge L Carey RBC 4.81 106/ul Normal 4.70-6.[address] [facility] Comment on above: Performed By: #### B MP, LIPID, ALT, URIC #### [facility] [address] [place] [address] Dr. Jorge L Carey WBC 6.9 103/ul Normal 4.0-11.[address] [facility] Comment on above: Performed By: #### B MP, LIPID, ALT, URIC #### [facility] [address] [place] [address] Dr[address] HEAD WO [...] MALENA LÓPEZ Date: 2022-07-01 20:[address] [facility] SARS-CoV-2 (COVID-19) RNA EDVIN+probe Ql (Unsp spec) Not detected Normal NOT DETECTED [facility] Comment on above: Result Comment: [...] for this test is supported by the [place] of Health and Human Service's declaration that [...] used). Performed By: #### C VDTB #### [facility] [address] [place] [address] Dr. Jorge L Carey D-DIMERon 07-01-2022 D-DIMER 0.21 mg/L FEU Normal <=0.59 [facility] Comment on above: Performed By: #### B MP, LIPID, ALT, URIC #### [facility] [address] [place] [address] Dr. Jorge L Carey D-DIMER COMMENTS SEE BELOW Normal [facility] Comment on above: Result Comment: Incr [...] #### B MP, LIPID, ALT, URIC #### [facility] [address] [place] [address] Dr. Jorge L Carey ER URINE PROFILEon 3 Bilirubin Ql (U) Negative Normal NEGATIVE [facility] Comment on above: Performed By: #### B MP, LIPID, ALT, URIC #### [facility] [address] [place] [address] Dr. Jorge L Carey Clarity (U) CLEAR Normal CLEAR [facility] Comment on above: Performed By: #### B MP, LIPID, ALT, URIC #### [facility] [address] [place] [address] Dr. Jorge L Carey Color (U) LT. YELLOW Normal YELLOW [facility] Comment on above: Performed By: #### B MP, LIPID, ALT, URIC #### [facility] [address] [place] [address] Dr. Jorge L Carey ERUAHD A micrscopic examination will be performed if indicated. Normal [facility] Comment on above: Performed By: #### B MP, LIPID, ALT, URIC #### [facility] [address] [place] [address] Dr. Jorge L Carey Glucose Ql (U) Negative Normal NEGATIVE [facility] Comment on above: Performed By: #### B MP, LIPID, ALT, URIC #### [facility] [address] [place] [address] Dr. Jorge L Carey Hemoglobin Ql (U) Negative Normal NEGATIVE [facility] Comment on above: Performed By: #### B MP, LIPID, ALT, URIC #### [facility] [address] [place] [address] [address] Jorge L Carey Ketones Ql (U) Negative Normal NEGATIVE [facility] Comment on above: Performed By: #### B MP, LIPID, ALT, URIC #### [facility] [address] [place] [address] [address] Jorge L Carey LEUKOCYTES Negative Normal NEGATIVE [facility] Comment on above: Performed By: #### B MP, LIPID, ALT, URIC #### [facility] [address] [place] [address] [address] Jorge L Carey Nitrite Ql (U) Negative Normal NEGATIVE [facility] Comment on above: Performed By: #### B MP, LIPID, ALT, URIC #### [facility] [address] [place] [address] Dr. Jorge L Carey pH (U) 6.0 [pH] Normal 5-9 [facility] Comment on above: Performed By: #### B MP, LIPID, ALT, URIC #### [facility] [address] [place] [address] [address] Jorge L Carey SPEC GRAVITY 1.020 Normal 1.005-<=1.025 [facility] Comment on above: Performed By: #### B MP, LIPID, ALT, URIC #### [facility] [address] [place] [address] [address] Jorge L Carey UA PROTEIN Negative Normal NEGATIVE/ TRACE [facility] Comment on above: Performed By: #### B MP, LIPID, ALT, URIC #### [facility] [address] [place] [address] [address] Jorge L Carey UR MICRO IND NOT INDICATED Normal [facility] Comment on above: Performed By: #### B MP, LIPID, ALT, URIC #### [facility] [address] [place] [address] [address] Jorge L Carey Urobilinogen Qn (U) 1.0 {Ila'U}/dL Normal 0.2 - 1. 0 [facility] Comment on above: Performed By: #### B MP, LIPID, ALT, URIC #### [facility] [address] [place] [address] Dr. Jorge L Carey INFLUENZA A AND B AGon 07-01 [facility] SEE BELOW Normal [facility] Comment on above: Result Comment: Nega tive for Flu A protein angiten. Infection due to Flu A cannot be ruled out. Flu A angiten in the sample may be below the detection limit of the test. Performed By: #### I NFLUAB #### [facility] [address] [place] [address] Dr. Jorge L Carey [facility] SEE BELOW Normal [facility] Comment on above: Result Comment: Nega tive for Flu B protein antigen. Infection due to Flu B cannot be ruled out. Flu B antigen in the sample may be below the detection limit of the test. Performed By: #### I NFLUAB #### [facility] [address] [place] [address] Dr. Jorge L Carey INFLUENZA A AG Negative Normal NEGATIVE SEE COMMENT [facility] Comment on above: Performed By: #### I NFLUAB #### [facility] [address] [place] [address] Dr. Jorge L Carey INFLUENZA B AG Negative Normal NEGATIVE SEE COMMENT [facility] Comment on above: Performed By: #### I NFLUAB #### [facility] [address] [place] [address] Dr. Jorge L Caery POINT OF CARE GLUCOSEon 06-17 Glucose [Mass/Vol] 130 mg/dL Critically high 74-106 [facility] Comment on above: Performed By: #### B MP, LIPID, ALT, URIC #### [facility] [address] [place] [address] Dr. Jorge L Carey PROF 14(COMP METB)on 023 Albumin [Mass/Vol] 3.7 g/dL Normal 3.4-5.0 [facility] Comment on above: Performed By: #### C MP, CMADM #### [facility] [address] [place] [address] Dr. Jorge L Carey Albumin/Globulin [Mass ratio] 1.2 {ratio} Normal [facility] Comment on above: Performed By: #### C IGGY, CMADM #### [facility] [address] [place] [address] [address] Jorge L Carey ALP [Catalytic activity/Vol] 49 U/L Normal 46-116 [facility] Comment on above: Performed By: #### C IGGY, CMADM #### [facility] [address] [place] [address] [address] Jorge L Carey ALT [Catalytic activity/Vol] 30 U/L Normal 16-63 [facility] Comment on above: Performed By: #### C IGGY, RAMYDM #### [facility] [address] [place] [address] Dr. Jorge L Carey Anion gap [Moles/Vol] 12.7 mmol/L Normal [facility] Comment on above: Performed By: #### C IGGY, CMADM #### [facility] [address] [place] [address] [address] Jorge L Carey AST [Catalytic activity/Vol] 21 U/L Normal 15-37 [facility] Comment on above: Performed By: #### C IGGY, RAMYDM #### [facility] [address] [place] [address] Dr. Jorge L Carey Bilirubin [Mass/Vol] 0.5 mg/dL Normal 0.2-1.0 [facility] Comment on above: Performed By: #### C IGGY, CMADM #### [facility] [address] [place] [address] [address] Jorge L Carey Calcium [Mass/Vol] 8.9 mg/dL Normal 8.5-10.1 [facility] Comment on above: Performed By: #### C IGGY, CMADM #### [facility] [address] [place] [address] Dr. Jorge L Carey Chloride [Moles/Vol] 100 mmol/L Normal 98-107 [facility] Comment on above: Performed By: #### C IGGY, RAMYDM #### [facility] [address] [place] [address] Dr. Jorge L Carey CO2 [Moles/Vol] 29.0 mmol/L Normal 21.0-32.0 [facility] Comment on above: Performed By: #### C IGGY, CMADM #### [facility] [address] [place] [address] [address] Jorge L Carey Creatinine [Mass/Vol] 1.04 mg/dL Normal 0.70-1.30 [facility] Comment on above: Performed By: #### C IGGY, CMADM #### [facility] [address] [place] [address] [address] Jorge L Carey EGFR-AF JAMA[place] >60 Normal >=60 [facility] Comment on above: Performed By: #### C IGGY, CMADM #### [facility] [address] [place] [address] [address] Jorge L Carey EGFR-NON AF [place] >60 Normal >=60 [facility] Comment on above: Performed By: #### C IGGY, CMADM #### [facility] [address] [place] [address] [address] Jorge L Carey Globulin (S) [Mass/Vol] 3.1 g/dL Normal [facility] Comment on above: Performed By: #### C IGGY, CMADM #### [facility] [address] [place] [address] [address] Jorge L Carey Glucose [Mass/Vol] 140 mg/dL Critically high 74-106 [facility] Comment on above: Performed By: #### C IGGY, CMADM #### [facility] [address] [place] [address] [address] Jorge L Carey Potassium [Moles/Vol] 3.7 mmol/L Normal 3.5-5.[address] [facility] Comment on above: Performed By: #### C IGGY, CMADM #### [facility] [address] [place] [address] [address] Jorge L Carey Protein [Mass/Vol] 6.8 g/dL Normal 6.4-8.2 [facility] Comment on above: Performed By: #### C IGGY, RAMYDM #### [facility] [address] [place] [address] [address] Jorge L Carey Sodium [Moles/Vol] 138 mmol/L Normal 136-145 [facility] Comment on above: Performed By: #### C IGGY, CEE #### [facility] [address] [place] [address] Dr. Jorge L Carey Urea nitrogen [Mass/Vol] 13.0 mg/dL Normal 7.0-18.0 [facility] Comment on above: Performed By: #### C IGGY, CEE #### [facility] [address] [place] [address] Dr. Jorge L Carey Urea nitrogen/Creatinine [Mass ratio] 12.5 mg/mg Normal [facility] Comment on above: Performed By: #### C CEE PARKINSON #### [facility] [address] [place] [address] Dr. Jorge L Carey TROPONIN, HIGH SENSITIVITYon 07-01-2022 HSTROP 10.9 pg/mL Normal 4.0-76.1 [facility] Comment on above: Result Comment: CUT- OFF POINTS HAVE BEEN ESTABLISHED BASED ON THE FOURTH UNIVERSAL DEFINITIONS OF MYOCARDIAL INFARCTION. THE UPPER REFERENCE LIMIT (URL) OF TROPONIN, DEFINED THE 99TH PERCENTILE OF cTnI DISTRIBUTION IN A REFERENCE POPULATION, HAS BEEN CONFIRMED THE DECISION THRESHOLD FOR DC DIAGNOSIS. Performed By: #### B MP, LIPID, ALT, URIC #### [facility] [address] [place] [address] Dr. Jorge L Carey XR CHEST 1 [...] FILIPPO MASTERS Date: 2022-07-01 19:[address] [facility] CBC AUTO DIFFon 04-18-2022 BASO # 0.0 103/ul Normal 0.0-0.1 [facility] Comment on above: Performed By: #### C BC #### [facility] [address] [place] [address] Dr. Jorge L Carey Basophils/100 WBC (Bld) 0.7 % Normal 0.2-2.0 [facility] Comment on above: Performed By: #### C BC #### [facility] [address] [place] [address] Dr. Jorge L Carey EO # 0.2 103/ul Normal 0.0-0.7 [facility] Comment on above: Performed By: #### C BC #### [facility] [address] [place] [address] Dr. Jorge L Carey Eosinophils/100 WBC (Bld) 2.6 % Normal 0.9-7.0 [facility] Comment on above: Performed By: #### C BC #### [facility] [address] [place] [address] Dr. Jorge L Carey Erythrocyte distribution width (RBC) [Ratio] 11.5 % Normal 11.0-15.0 [facility] Comment on above: Performed By: #### C BC #### [facility] [address] [place] [address] Dr. Jorge L Carey Hematocrit (Bld) [Volume fraction] 44.7 % Normal 42.0-54.0 [facility] Comment on above: Performed By: #### C BC #### [facility] [address] [place] [address] Dr. Jorge L Carey Hemoglobin (Bld) [Mass/Vol] 15.5 g/dL Normal 14.0-18.0 [facility] Comment on above: Performed By: #### C BC #### [facility] [address] [place] [address] Dr. Jorge L Carey IG # 0.01 10e3/ul Normal 0.00-0.03 [facility] Comment on above: Performed By: #### C BC #### [facility] [address] [place] [address] Dr. Jorge L Carey IG % 0.2 % Normal 0.0-0.[address] [facility] Comment on above: Performed By: #### C BC #### [facility] [address] [place] [address] Dr. Jorge L Carey LYMPH # 1.3 103/ul Normal 1.2-3.8 [facility] Comment on above: Performed By: #### C BC #### [facility] [address] [place] [address] Dr. Jorge L Carey Lymphocytes/100 WBC (Bld) 21.3 % Normal 20.5-60.0 [facility] Comment on above: Performed By: #### C BC #### [facility] [address] [place] [address] Dr. Jorge L Carey MANUAL DIFF REQ NO Normal [facility] Comment on above: Performed By: #### C BC #### [facility] [address] [place] [address] Dr. Jorge L Carey MCH (RBC) [Entitic mass] 30.1 pg Normal 25.9-34.0 [facility] Comment on above: Performed By: #### C BC #### [facility] [address] [place] [address] Dr. Jorge L Carey MCHC (RBC) [Mass/Vol] 34.7 g/dL Normal 29.9-35.2 [facility] Comment on above: Performed By: #### C BC #### [facility] [address] [place] [address] Dr. Jorge L Carey MCV (RBC) [Entitic vol] 86.8 fL Normal 80.0-94.0 [facility] Comment on above: Performed By: #### C BC #### [facility] [address] [place] [address] Dr. Jorge L Carey MONO # 0.4 103/ul Normal 0.3-0.8 [facility] Comment on above: Performed By: #### C BC #### [facility] [address] [place] [address] Dr. Jorge L Carey Monocytes/100 WBC (Bld) 7.2 % Normal 1.7-12.0 [facility] Comment on above: Performed By: #### C BC #### [facility] [address] [place] [address] Dr. Jorge L Carey NEUT # 4.1 103/ul Normal 1.4-6.5 [facility] Comment on above: Performed By: #### C BC #### [facility] [address] [place] [address] Dr. Jorge L Carey Neutrophils/100 WBC (Bld) 68.0 % Normal 43.0-75.0 [facility] Comment on above: Performed By: #### C BC #### [facility] [address] [place] [address] Dr. Jorge L Carey Platelet mean volume (Bld) [Entitic vol] 12.0 fL Normal 9.5-13.5 [facility] Comment on above: Performed By: #### C BC #### [facility] [address] [place] [address] Dr. Jorge L Carey PLT 163 103/ul Normal 150-450 [facility] Comment on above: Performed By: #### C BC #### [facility] [address] [place] [address] Dr. Jorge L Carey RBC 5.15 106/ul Normal 4.70-6.10 [facility] Comment on above: Performed By: #### C BC #### [facility] [address] [place] [address] Dr. Jorge L Carey WBC 6.1 103/ul Normal 4.0-11.0 [facility] Comment on above: Performed By: #### C BC #### [facility] [address] [place] [address] Dr. Jorge L Carey GLYCOHEMOGLOBIN A1Con 2021 ADA RECOMMENDATION SEE BELOW Normal [facility] Comment on above: Result Comment: ADA RECOMMENDED LIMIT 4.0 - 6.0 ADA THERAPEUTIC TARGET < 7.0 ACTION SUGGESTED > 7.0 Performed By: #### B MP, LIPID, ALT, URIC #### [facility] [address] [place] [address] Dr. Jorge L Carey Glucose [Mass/Vol] 146 mg/dL Normal [facility] Comment on above: Performed By: #### B MP, LIPID, ALT, URIC #### [facility] [address] [place] [address] Dr. Jorge L Carey HbA1c (Bld) [Mass fraction] 6.7 % Critically high 4.5-6.2 [facility] Comment on above: Performed By: #### B MP, LIPID, ALT, URIC #### [facility] [address] [address] [address] Jorge L Carey LIPID PROFILEon 04-18-2022 CHOL-HDL RATIO NORM SEE BELOW Normal [facility] Comment on above: Result Comment: 3.3 - 4.4 LOW RISK 4.4 - 7.1 AVERAGE RISK 7.1 - 11.0 MODERATE RISK >11.0 HIGH RISK Performed By: #### B MP, LIPID, ALT, URIC #### [facility] [address] [address] [address] Jorge L Carey Cholesterol [Mass/Vol] 117 mg/dL Normal <=200 [facility] Comment on above: Performed By: #### B MP, LIPID, ALT, URIC #### [facility] [address] [place] [address] Dr. Jorge L Carey Cholesterol in HDL [Mass/Vol] 48 mg/dL Normal 40-60 [facility] Comment on above: Performed By: #### B MP, LIPID, ALT, URIC #### [facility] [address] [address] [address] Jorge L Carey Cholesterol in LDL [Mass/Vol] 50.6 mg/dL Normal [facility] Comment on above: Performed By: #### B MP, LIPID, ALT, URIC #### [facility] [address] [place] [address] Dr. Jorge L Carey Cholesterol.total/Ch olesterol in HDL [Mass ratio] 2.4 {ratio} Normal [facility] Comment on above: Performed By: #### B MP, LIPID, ALT, URIC #### [facility] [address] [place] [address] Dr. Jorge L Carey HDL NORMAL > or = 60 mg/dl - LO W CARDIOVASCULAR RISK <40 mg/dl - HIGH CARDIOVASCULAR RISK Normal [facility] Comment on above: Performed By: #### B MP, LIPID, ALT, URIC #### [facility] [address] [place], [place] [id number] Dr. Jorge L Carey LDL CALC NORMAL SEE BELOW Normal [facility] Comment on above: Result Comment: <100 mg/dl OPTIMAL 100 - 129 mg/dl NEAR OR ABOVE OPTIMAL 130 - 159 mg/dl BORDERLINE HIGH 160 - 189 mg/dl HIGH >190 mg/dl VERY HIGH Performed By: #### B MP, LIPID, ALT, URIC #### [facility] [address] [address] [address] Jorge L Carey Triglyceride [Mass/Vol] 92 mg/dL Normal <=150 [facility] Comment on above: Performed By: #### B MP, LIPID, ALT, URIC #### [facility] [address] [place] [address] Dr. Jorge L Carey VLDL CALC 18.4 mg/dL Normal [facility] Comment on above: Performed By: #### B MP, LIPID, ALT, URIC #### [facility] [address] [place] [address] Dr. Jorge L Carey MICROALBUMIN, RAND URon 11-0 mALB <1.3 Normal <=30.0 [facility] Comment on above: Performed By: #### M ALBR #### [facility] [address] [place] [address] Dr. Jorge L Carey PROF CHEM 8 (BAS METB)on Anion gap [Moles/Vol] 9.5 mmol/L Normal [facility] Comment on above: Performed By: #### B MP, LIPID, ALT, URIC #### [facility] [address] [address] [address] Jorge L Carey Calcium [Mass/Vol] 8.6 mg/dL Normal 8.5-10.1 [facility] Comment on above: Performed By: #### B MP, LIPID, ALT, URIC #### [facility] [address] [address] [address] Jorge L Carey Chloride [Moles/Vol] 102 mmol/L Normal 98-107 [facility] Comment on above: Performed By: #### B MP, LIPID, ALT, URIC #### [facility] [address] [place], [place] [id number] Dr. Jorge L Carey CO2 [Moles/Vol] 30.8 mmol/L Normal 21.0-32.0 [facility] Comment on above: Performed By: #### B MP, LIPID, ALT, URIC #### [facility] [address] [address] [address] Jorge L Carey Creatinine [Mass/Vol] 0.95 mg/dL Normal 0.70-1.30 [facility] Comment on above: Performed By: #### B MP, LIPID, ALT, URIC #### [facility] [address] [address] [address] Jorge L Carey EGFR-AF JAMAICAN >60 Normal >=60 [facility] Comment on above: Performed By: #### B MP, LIPID, ALT, URIC #### [facility] [address] [place] [address] Dr. Jorge L Carey EGFR-NON AF JAMAICAN >60 Normal >=60 [facility] Comment on above: Performed By: #### B MP, LIPID, ALT, URIC #### [facility] [address] [address] [address] Jorge L Carey Glucose [Mass/Vol] 142 mg/dL Critically high 74-106 [facility] Comment on above: Performed By: #### B MP, LIPID, ALT, URIC #### [facility] [address] [place] [address] Dr. Jorge L Carey Potassium [Moles/Vol] 4.3 mmol/L Normal 3.5-5.1 [facility] Comment on above: Performed By: #### B MP, LIPID, ALT, URIC #### [facility] [address] [address] [address] Jorge L Carey Sodium [Moles/Vol] 138 mmol/L Normal 136-145 [facility] Comment on above: Performed By: #### B MP, LIPID, ALT, URIC #### [facility] [address] [address] [address] Jorge L Carey Urea nitrogen [Mass/Vol] 14.0 mg/dL Normal 7.0-18.0 [facility] Comment on above: Performed By: #### B MP, LIPID, ALT, URIC #### [facility] [address] [address] [address] Jorge L Carey Urea nitrogen/Creatinine [Mass ratio] 14.7 mg/mg Normal [facility] Comment on above: Performed By: #### B MP, LIPID, ALT, URIC #### [facility] [address] [address] [address] Jorge L Carey SGPTon 04-18-2022 ALT [Catalytic activity/Vol] 27 U/L Normal 16-63 [facility] Comment on above: Performed By: #### B MP, LIPID, ALT, URIC #### [facility] [address] [address] [address] Jorge L Carey URIC ACID SERUMon 04-18-2022 Urate [Mass/Vol] 5.5 mg/dL Normal 3.5-7.2 [facility] Comment on above: Performed By: #### B MP, LIPID, ALT, URIC #### [facility] [address] [address] [address] Jorge L Carey GLYCOHEMOGLOBIN A1Con 2021 ADA RECOMMENDATION SEE BELOW Normal [facility] Comment on above: Result Comment: ADA RECOMMENDED LIMIT 4.0 - 6.0 ADA THERAPEUTIC TARGET < 7.0 ACTION SUGGESTED > 7.0 Performed By: #### B MP, LIPID, ALT, URIC #### [facility] [address] [address] [address] Jorge L Carey Glucose [Mass/Vol] 160 mg/dL Normal [facility] Comment on above: Performed By: #### B MP, LIPID, ALT, URIC #### [facility] [address] [address] [address] Jorge L Carey HbA1c (Bld) [Mass fraction] 7.2 % Critically high 4.5-6.2 [facility] Comment on above: Performed By: #### B MP, LIPID, ALT, URIC #### [facility] [address] [address] [address] Jorge L Carey Ambulatory Visit Summaryon 0 10-06-2021 Ambulatory Visit Summary FELIPE QUAN:1955 Visit Date:10/06/2021 Ambulatory Visit Instructions Your Diagnosis BPH with urinary obstruction Elevated PSA Tests Performed Urnls Dip Stick Auto w/o Microscopy POC 96520 Your Care Team Attending Physician - Hola AMBIRZ MD Primary Care Physician - BOGDAN GREEN [...] Hola AMBRIZ MD Where: [facility] Patient Educationon 10-07-19 Patient Education Urology Benign [...] Follow these instructions at home: ? Take bhzu-[id number] and prescription medicines only as told by [...] You d (more content not included)... Normal [facility] Urology Office/Clinic Noteon 10-06-2021 Urology Office/Clinic [...] [facility] [address] [place] [phone] Additional Instructions: PSA Patient Education Benign Prostatic [...] (10/06/21 08:08:00) (more content not included)... Normal [facility] Comment on above: Result Comment: Elec tronically Signed By: Hola AMBRIZ MD\.br\Date and Time Signed: 10/06/21 08:39 EDT\.br\Electronically Co-Signed By: Ciarra Mckeon MA\.br\Date and Time Co-Signed: 10/06/21 08:38 EDT Lab Reportson 09-19-2021 Lab Reports [id number] D:127 Normal [facility] GLYCOHEMOGLOBIN A1Con 2021 ADA RECOMMENDATION ADA THERAPEUTIC TARG ET 6.0 - 7.0 ACTION SUGGESTED > 7.0 Normal [facility] Comment on above: Performed By: #### B MP, LIPID, ALT, URIC #### [facility] [address] [address] [address] Jorge L Carey Glucose [Mass/Vol] 177 mg/dL Normal [facility] Comment on above: Performed By: #### B MP, LIPID, ALT, URIC #### [facility] [address] [place], [place] [address] Dr. Jorge L Carey HbA1c (Bld) [Mass fraction] 7.8 % Critically high <=6.0 [facility] Comment on above: Performed By: #### B MP, LIPID, ALT, URIC #### [facility] [address] [address] [address] Jorge L Carey [facility] 09-17-2020 Glucose [Mass/Vol] 151 mg/dL Normal [facility] Comment on above: Result Comment: PERF ORMED BY: [place] [address] PATHOLOGIST [employer] SUPER[employer] SUSAN SEXTON M.D. Performed By: #### O UTREACH GLYCO #### [facility] [address] HbA1c (Bld) [Mass fraction] 6.9 % High 4.3-5.6 [facility] Comment on above: Result Comment: Incr eased risk for diabetes: 5.7 - 6.4 diabetes: >6.4 glycemic control for adults with diabetes: <7.0 Performed By: #### O UTREACH GLYCO #### [facility] [address] [place] [address] Vital Signs Date Time Vital Sign Value Performing Clinician Facility 07-08-2023 09:00-0500 Body height 190.5 cm Bogdan [facility] Other [facility] Other 07-08-2023 09:00-0500 Body mass index (BMI) [Ratio] 32.62 kg/m2 Bogdan Ball Other [facility] Other 07-08-2023 09:00-0500 Body weight 118.39 kg Bogdan Ball Other [facility] Other 07-08-2023 09:00-0500 Diastolic blood pressure 81 mm[Hg] Bogdan Ball Other [facility] Other 07-08-2023 09:00-0500 Respiratory rate 12 /min Bogdan Ball Other [facility] Other 07-08-2023 09:00-0500 Systolic blood pressure 117 mm[Hg] Bogdan Ball Other [facility] Other 05-01-2023 08:30-0500 Body height 190.5 cm Bodgan Ball Other [facility] Other 05-01-2023 08:30-0500 Body mass index (BMI) [Ratio] 32.19 kg/m2 Bogdan Ball Other [facility] Other 05-01-2023 08:30-0500 Body weight 116.85 kg Bogdan Ball Other [facility] Other 05-01-2023 08:30-0500 Diastolic blood pressure 81 mm[Hg] Bogdan Ball Other [facility] Other 05-01-2023 08:30-0500 Respiratory rate 12 /min Bogdan Ball Other [facility] Other 05-01-2023 08:30-0500 Systolic blood pressure 135 mm[Hg] Bogdan Ball Other [facility] Other 12-26-2022 08:30-0400 Body height 190.5 cm Bogdan Ball Other [facility] Other 12-26-2022 08:30-0400 Body mass index (BMI) [Ratio] 31.54 kg/m2 Bogdan Ball Other [facility] Other 12-26-2022 08:30-0400 Body weight 114.49 kg Bogdan Ball Other [facility] Other 12-26-2022 08:30-0400 Diastolic blood pressure 85 mm[Hg] Bogdan Ball Other [facility] Other 12-26-2022 08:30-0400 Respiratory rate 12 /min Bogdan Ball Other [facility] Other 12-26-2022 08:30-0400 Systolic blood pressure 139 mm[Hg] Bogdan Ball Other [facility] [employer] Other 11-09-2022 10:58-0400 Blood Pressure Location Hola AMBRIZ [facility] 11-09-2022 10:58-0400 Diastolic blood pressure 80 mm[Hg] Hola AMBRIZ [facility] 11-09-2022 10:58-0400 Heart rate 78 /min Hola AMBRIZ [facility] 11-09-2022 10:58-0400 Respiratory rate 16 /min Hola AMBRIZ [facility] 11-09-2022 10:58-0400 Systolic blood pressure 130 mm[Hg] Hola AMBRIZ [facility] 10-05-2022 12:15-0400 Body height 190.5 cm Bogdan Ball Other [facility] [employer] Other 10-05-2022 12:15-0400 Body mass index (BMI) [Ratio] 31.17 kg/m2 Bogdan Ball Other [facility] [employer] Other 10-05-2022 12:15-0400 Body weight 113.13 kg Bogdan Ball Other [facility] [employer] Other 10-05-2022 12:15-0400 Diastolic blood pressure 95 mm[Hg] Bogdan Ball Other [facility] [employer] Other 10-05-2022 12:15-0400 Respiratory rate 12 /min Bogdan Ball Other [facility] [employer] Other 10-05-2022 12:15-0400 Systolic blood pressure 168 mm[Hg] Bogdan Ball Other [facility] Other 08-23-2022 08:30-0500 Body height 190.5 cm Bogdan Ball Other [facility] Other 08-23-2022 08:30-0500 Body mass index (BMI) [Ratio] 31.42 kg/m2 Bogdan Ball Other [facility] Other 08-23-2022 08:30-0500 Body weight 114.04 kg Bogdan Ball Other [facility] Other 08-23-2022 08:30-0500 Diastolic blood pressure 86 mm[Hg] Bogdan Ball Other [facility] Other 08-23-2022 08:30-0500 Respiratory rate 12 /min Bogdan Ball Other [facility] Other 08-23-2022 08:30-0500 Systolic blood pressure 132 mm[Hg] Bogdan Ball Other [facility] Other 10-06-2021 08:14-0400 Blood Pressure Location [facility] 10-06-2021 08:14-0400 Diastolic blood pressure 98 mm[Hg] Hola AMBRIZ [facility] 10-06-2021 08:14-0400 Heart rate 78 /min Hola AMBRIZ [facility] 10-06-2021 08:14-0400 Systolic blood pressure 145 mm[Hg] Hola AMBRIZ [facility] Encounters Encounter Date Encounter Type Care Provider Facility Start: 08-19-2023 End: 08-20-2023 ambulatory Dm Cyr MD Facility:[facility] Start: 07-29-2023 End: 07-30-2023 ambulatory Dm Cyr MD [facility] Start: 07-29-2023 Telephone encounter Bogdan HORTON [facility] Start: 07-15-2023 End: 07-16-2023 ambulatory Dm Cyr MD Facility:[facility] Start: 07-08-2023 End: 07-08-2023 ambulatory Bogdan Green Other [facility] Other Start: 07-08-2023 Office outpatient vi sit 25 minutes Bogdan Green [facility] Start: 06-24-2023 End: 06-25-2023 ambulatory Dm Cyr MD Facility:[facility] Start: 05-20-2023 End: 05-21-2023 ambulatory Dm Cyr MD Facility:[facility] Start: 05-10-2023 End: 05-10-2023 ambulatory Bogdan Green Other [facility] Other Start: 05-10-2023 Office outpatient vi sit 15 minutes Bogdan Green [facility] Start: 05-01-2023 End: 05-01-2023 ambulatory Bogdan Green Other [facility] Other Start: 05-01-2023 Patient encounter procedure Bogdan Green [facility] Start: 04-24-2023 End: 04-24-2023 ambulatory Bogdan Green Other [facility] Other Start: 04-24-2023 Telephone encounter Bogdan HORTON [facility] Start: 02-25-2023 End: 02-25-2023 ambulatory Bogdan Green Other [facility] Other Start: 02-25-2023 Telephone encounter Bogdan Green [facility] Start: 12-27-2022 End: 12-27-2022 ambulatory Bogdan Green Other [facility] Other Start: 12-27-2022 Telephone encounter Bogdan Green [facility] Start: 12-26-2022 End: 12-26-2022 ambulatory Bogdan Green Other [facility] Other Start: 12-26-2022 Office outpatient vi sit 25 minutes Bogdan Ball [facility] Start: 11-19-2022 End: 11-19-2022 ambulatory Bogdan Peter Other [facility] Other Start: 11-19-2022 Telephone encounter Bogdan Green [facility] Start: 11-09-2022 ambulatory Hola AMBRIZ Facili ty:[facility] [place] Start: 11-09-2022 End: 11-09-2022 Patient encounter procedure Hola AMBRIZ [facility] Start: 10-22-2022 End: 10-22-2022 ambulatory Bogdan Green Other [facility] Other Start: 10-22-2022 Telephone encounter Bogdan Green [facility] Start: 10-18-2022 End: 10-18-2022 ambulatory Bogdan Green Other [facility] Other Start: 10-18-2022 Telephone encounter Bogdan Green [facility] Start: 10-05-2022 End: 10-05-2022 ambulatory Bogdan Green Other [facility] Other Start: 10-05-2022 Office outpatient vi sit 15 minutes Bogdan Ball [facility] Start: 09-27-2022 End: 09-27-2022 ambulatory Bogdan Ball Other [facility] Other Start: 09-27-2022 Telephone encounter Bogdan Green [facility] Start: 09-25-2022 End: 09-25-2022 ambulatory Bogdan Green Other [facility] Other Start: 09-25-2022 Telephone encounter Bogdan Green [facility] Start: 09-21-2022 End: 09-21-2022 ambulatory Bogdan Green Other [facility] Other Start: 09-21-2022 Telephone encounter Bogdan Green [facility] Start: 08-23-2022 End: 08-23-2022 ambulatory Bogdan Green Other [facility] Other Start: 08-23-2022 Office outpatient vi sit 25 minutes Bogdan Green [facility] Start: 08-17-2022 End: 08-18-[address] BOGDAN GREEN Facility:[facility] Start: 08-14-2022 End: 08-14-2022 ambulatory Bogdan Green Other [facility] Start: 08-14-2022 Telephone encounter Bogdan Green [facility] Start: 07-01-2022 End: 07-01-[address] BOGDAN GREEN Facility:[facility] Start: 04-25-2022 Adult health examination Bogdan Green Other [facility] Other Start: 04-18-2022 End: 04-19-[address] BOGDAN GREEN Facility:[facility] Start: 01-20-2022 End: 01-21-[address] CONCEPCION LISTED REQUEST Facility:[facility] Start: 10-06-2021 ambulatory Hola AMBRIZ Facility :[facility] [place] Start: 10-06-2021 End: 10-07-2021 ambulatory Hola AMBRIZ Facility:[facility] Start: 10-06-2021 End: 10-06-2021 Patient encounter procedure Hola AMBRIZ [facility] Start: 09-16-2021 End: 09-17-[address] HOLA AMBRIZ . Facility:[facility] Start: 09-15-2021 End: 09-16-[address] CONCEPCION LISTED REQUEST Facility:[facility] Start: 08-29-[address] BOGDAN GREEN Facili ty:[facility] Procedures Date Procedure Procedure Detail Performing Clinician Start: 09-16-[address] NORRIS GREEN Comment on above: Performed By: #### B MP, LIPID, ALT, URIC #### [facility] [address] [address] [address] Jorge L Carey Start: 03-29-2017 General [...] 04-29-2023 zoster vaccine recombinant Bogdan Green Other [facility] Other 04-26-2023 influenza, high dose seasonal, preservative-free Bogdan Green Other [facility] Other 02-26-2023 zoster vaccine recombinant Bogdan Peter Other [facility] Other 04-25-2022 pneumococcal 20-alber nt conjugate vaccine Hola AMBRIZ [facility] 04-16-2022 influenza virus vaccine, split virus (incl. purified surface antigen) Bogdan Green Other [facility] Other 04-16-2022 influenza virus vaccine, unspecified formulation Hola AMBRIZ [facility] 03-23-2022 SARS-CoV-2 (COVID-19 ) [id number] Hola AMBRIZ [facility] 05-08-2021 SARS-CoV-2 (COVID-19 ) mRNA BNT-162b2 vax Hola AMBRIZ [facility] 04-22-2021 influenza virus vaccine, split virus (incl. purified surface antigen) Bogdan Green Other [facility] Other 04-22-2021 influenza virus vaccine, unspecified formulation Hola AMBRIZ [facility] 03-30-2021 influenza virus vaccine, unspecified formulation Hola AMBRIZ [facility] 09-16-2020 COVID-19, mRNA, LNP- S, PF, 30 mcg/0.3 mL dose; 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: [Pfizer-BioNTech COVID-19 Vaccine] Hola AMBRIZ [facility] Comment on above: Reason for Medicatio n: Prophylaxis 08-26-2020 COVID-19, mRNA, LNP- S, PF, 30 mcg/0.3 mL dose; 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: [Pfizer-BioNTech COVID-19 Vaccine] Hola AMBRIZ [facility] Comment on above: Reason for Medicatio n: Prophylaxis 04-16-2020 influenza virus vaccine, split virus (incl. purified surface antigen) Bogdan Peter Other [facility] Other 04-16-2020 influenza virus vaccine, unspecified formulation Hola AMBRIZ [facility] pneumococcal Conjuga te, unspecified formulation; 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: [Need for prophylactic vaccination against Streptococcus pneumoniae (pneumococcus)] Bogdan Green Other [facility] Other Payers Date Payer Category Payer Medicare 2022 Unknown 2021 Medicare [id number] 2020 Unknown [id number] 1959 Medicare [id number] 1959 Self-pay [id number] 1959 Unknown [id number] 1959 Unknown [id number] 1956 Unknown [id number] 2.16.84 [id number] 1956 Unknown [id number] 2.16.84 [id number] 1956 Unknown [id number] 2.16.84 0.1.003389.3.579.2.593 1956 Unknown [id number] 2.16.84 0.1.148294.3.579.2.593 1956 Unknown [id number] 2.16.84 0.1.163949.3.579.2.593 1956 Unknown [id number] 2.16.8 40.1.711252.3.579.2.727 1956 Unknown [id number] 2.16.8 40.1.669542.3.579.2.727 1956 Unknown [id number] 2.16. 840.1.997096.3.579.2.196 1956 Unknown [id number] 2.16. 840.1.224730.3.579.2.196 1956 Unknown [id number] 2.16. 840.1.012643.3.579.2.196 1956 Unknown [id number] 2.16. 840.1.115424.3.579.2.196 1956 Unknown [id number] 2.16. 840.1.913764.3.579.2.196 [facility] [id number] [id number] Unknown [id number] 2.16.84 0.1.709802.3.579.2.593 Unknown [id number] 2.16.84 0.1.162174.3.579.2.593 Social History Date Type Detail Facility Start: 10-06-2021 End: 11-09-2022 Tobacco smoking status Never smoked tobacco (finding) [facility] Sex Assigned At Male [facility] Tobacco smoking status Never [facility] Functional Status Date Assessment Result Facility 11-09-2022 Functional Status N/A [facility] Clinical Notes 10-06-2021 to 07-29-2023 Note Date & Type Note Facility 07-29-2023 Evaluation note Encounter Date Diagnosis Assessment Notes Jul, Type 2 diabetes mellitus with hyperglycemia , without long-term current use of insulin (ICD-10 - E11.65) [facility] Other 01-22-2024 Evaluation note* Encounter Date Diagnosis [...] index [BMI] 32.0-32.9, adult (ICD-10 - Z68.32) [facility] Other 11-24-2023 Evaluation note* Encounter Date Diagnosis [...] Microalbumin, Dilated eye exam and Foot exam [facility] Other 11-15-2023 Evaluation note* Encounter Date Diagnosis [...] flares Sep, Thrombocytopenia, unspecified (ICD-10 - D69.6) [facility] Other 11-15-2023 Evaluation note* Encounter Date Diagnosis [...] flares Sep, Thrombocytopenia, unspecified (ICD-10 - D69.6) [facility] Other 11-08-2023 Evaluation note* Encounter Date Diagnosis Assessment Notes Treatment Notes Treatment Clinical Notes Apr, Screening PSA (prostate specific antigen) (ICD-10 - Z12.5) Apr, Type 2 diabetes mellitus with hyperglycemia, without long-term current use of insulin (ICD-10 - E11.65) Apr, Elevated cholesterol (ICD-10 - E78.00) Apr, Primary hypertension (ICD-10 - I10) Sep, Thrombocytopenia, unspecified (ICD-10 - D69.6) Thrombocytopenia [facility] Other 07-12-2023 Evaluation note* Encounter Date Diagnosis [...] [BMI] 31.0-31.9, adult (ICD-10 - Z68.31) Dec, correction (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 (ICD-10 - Z79.4) [facility] Other 05-26-2023 Hospital Discharge instructions Patient Education [...] treatment? Where to find more information [employer]: www.cancer.org [employer]: www.auanet.org Contact a health care [...] provider. Document Revised: 11/27/2021 Document Reviewed: 11/27/2021 [employer] Patient Education 2022 [employer]. Follow Up Care 10/06/2021 08:40:21 With:JOSE MCMANUS, Hola Rushing, URL Address: [facility] [address], [place] [address]- When: Unknown [facility] 05-08-2023 Evaluation note* Encounter Date Diagnosis Assessment Notes Treatment Notes Treatment Clinical Notes October, Primary hypertension (ICD-10 - I10) [facility] [employer] Other 05-04-2023 Evaluation note* Encounter Date Diagnosis Assessment Notes Treatment Notes Treatment Clinical Notes October, Primary hypertension (ICD-10 - I10) [facility] [employer] Other 04-21-2023 Evaluation note* Encounter Date Diagnosis [...] and Glimepiride appear to be controlling BS. [facility] Other 04-13-2023 Evaluation note* Encounter Date Diagnosis Assessment Notes Treatment Notes Treatment Clinical Notes Sep, Type 2 diabetes mellitus with hyperglycemia (ICD-10 - E11.65) Sep, correction (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 (ICD-10 - Z79.4) [facility] Other 04-11-2023 Evaluation note* Encounter Date Diagnosis Assessment Notes Treatment Notes Treatment Clinical Notes Sep, Type 2 diabetes mellitus with hyperglycemia, without long-term current use of insulin (ICD-10 - E11.65) [facility] Other 04-07-2023 Evaluation note* Encounter Date Diagnosis Assessment Notes Treatment Notes Treatment Clinical Notes Sep, Type 2 diabetes mellitus with hyperglycemia (ICD-10 - E11.65) [facility] Other 03-09-2023 Evaluation note* Encounter Date Diagnosis [...] Reviewed red flag symptoms and nerve impingement [facility] Other 02-28-2023 Evaluation note* Encounter Date Diagnosis Assessment Notes Treatment Notes Treatment Clinical Notes Jul, Type 2 diabetes mellitus with hyperglycemia, without long-term current use of insulin (ICD-10 - E11.65) [facility] Other 04-22-2022 Hospital Discharge instructions Patient Education [...] urethra. Follow these instructions at home: Take [id number] and prescription medicines only as told by [...] 06/03/2006 Document Revised: 04/28/2019 Document Reviewed: 07/08/2017 [employer] Patient Education 2020 [employer]. Follow Up Care 10/03/2020 15:00:49 With:Hola AMBRIZ MD, URL Address: [facility] [address], [place] [address]- [phone] When:10/06/2022 [facility] evaluation + Plan note Future Appointments Appointment Date:10/12/2022 08:00:00 AM Scheduled Provider:Hola AMBRIZ MD Location:[facility] Appointment Type:URO Office Visit Diagnostic Tests Pending * PSA Total 10/06/21 [facility] evaluation + Plan note Future Appointments Appointment Date:11/18/2023 08:45:00 AM Scheduled Provider:Hola AMBRIZ MD Location:[facility] Appointment Type:URO Office Visit Diagnostic Tests Pending * PSA Free & Total 11/09/22 [facility] [employer] Other Evaluation noteNo [facility] [employer] Other Hisvzwa general Narrative - Reported* Type Description Date [...] CYSTOSCOPY 2016 Hospitalization History SEE SURGICAL HX [place] [employer] Other Hisdfxs general Narrative - [facility] [employer] Other Hisotcu general Narrative - Reported* Type Description Date [...] CYSTOSCOPY 2016 Hospitalization History SEE SURGICAL HX [facility] [employer] Other Hospital course Narrative No data available for this section [facility] progress note No data available for this section [facility] Summary Purpose Family History No Family [...] ness visit, initial (Z00.00) Referral Organization [facility] jono Referring Provider First Name Bogdan Referring Provider Last Name Peter Referring Provider Specialty Internal Me dicine Referred Organization [facility] Referred Provider Swapnil French Referred Address [address], [place],[address] Referred Provider Specialty Pain Medicin e Referral [...] Notes Include XR lumbar sp ine f: [id number] Additional Source Comments (unrecognized sect ion and content) No Status Records FoundNo Status Records FoundNo Status Records FoundNo Status Records Found INFORMATION SOURCE (unrecogn ized section and content) DATE CREATED AUTHOR 07/30/2021 [facility] DATE CREATED AUTHOR AUTHOR'S ORGANIZ ATION 08/22/2022 [facility] DATE CREATED AUTHOR AUTHOR'S ORGANIZ ATION 09/07/2022 [facility] DATE CREATED AUTHOR AUTHOR'S ORGANIZ ATION 08/23/2023 [facility] REASON FOR VISIT (unrecogniz ed section and content) BS readingsElevated blood cifuentes [id number] [facility] ResultsBP readingsrefillelevated BPMedication4 MONTH FOLLOW UP Patient Care team informatio n (unrecognized section and content) Personnel Name: BOGDAN GREEN DO Address: Address: [address] [place] [place], [place] [address] FOR RECORDS PERTAINING TO PATIENTS WHO ARE [...] BE BASED ON THE PRIMARY CLINICAL RECORDS. [facility] [email or web address] [facility]. provides no warranty or guarantee of the accuracy or completeness of information in this document.
[2023-10-12 07:15] LABS: Estimated Average Glucose 180 mg/dL; Glycohemoglobin A1C 7.9 % (4.5-6.2)
== END 2023-10-12 06:39 | disposition home or self-care (01) ==
LOC: LAB 06:39
PROVIDERS: PCP Internal Medicine; Visit Provider Internal Medicine
DX: Z79.4 Long term (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 (principal); E11.65 Type 2 diabetes mellitus with hyperglycemia
CPT/HCPCS: 36415; 83036

== ENCOUNTER 2024-02-11 07:02 | Outpatient (OUT) | payer MEDICARE, BC, SELFPAY ==
--- OUTSIDE RECORDS SUMMARY | 2024-02-11 07:05 | XMS_ITS | CCD ---
Author Organization [facility] Care Team Providers Care Geology Professor Name Role Phone BOGDAN GREEN Primary Care Physician PETER, DR MCFADDEN Primary Care Unavailable FRANCISCA ., DIMAS Admitting Unavailable FRANCISCA ., DIMAS Attending Unavailable FRANCISCA ., DIMAS Consulting Unavailable MARIBEL, MALENA Consulting Unavailable GUERRERO, FILIPPO Consulting Unavailable REQUEST, DR CONCEPCION LISTED Admitting Unavaila ble REQUEST, DR CONCEPCION LISTED Attending Unavaila ble BALL, DR MCFADDEN Primary Care Unavailable REQUEST, DR CONCEPCION LISTED Consulting Unavaila ble REQUEST, DR CONCEPCION LISTED Admitting Unavaila ble REQUEST, DR CONCEPCION LISTED Attending Unavaila ble BALL, DR MCFADDEN Primary Care Unavailable REQUEST, DR CONCEPCION LISTED Consulting Unavaila ble BALL, DR MCFADDEN Admitting Unavailable BALL, DR MCFADDEN Attending Unavailable BALL, DR MCFADDEN Primary Care Unavailable BALL, DR MCFADDEN Admitting Unavailable BALL, DR MCFADDEN Attending Unavailable BALL, DR MCFADDEN Primary Care Unavailable BALL, DR MCFADDEN Consulting Unavailable GARCIA ., DR VAUGHN Admitting Unavailable GARCIA ., DR VAUGHN Attending Unavailable BALL, DR MCFADDEN Primary Care Unavailable GARCIA ., DR VAUGHN Consulting Unavailable BALL, DR MCFADDEN Admitting Unavailable BALL, DR MCFADDEN Attending Unavailable BALL, DR MCFADDEN Primary Care Unavailable BALL, DR MCFADDEN Consulting Unavailable Peter, Bogdan Unavailable Klarissa MCMANUS, Dm Santos Attending Unavailable Klarissa MCMANUS, Andrius Vmarietta Attending Unavailable Klarissa MCMANUS, Andrius Tom Attending Unavailable Klarissa MCMANUS, Andrius Tom Attending Unavailable Klarissa MCMANUS, Dm Santos Attending Unavailable Hola GARCIA Attending Unavailable Allergies Allergy Classification Reported Allergen(s) Allergy Type Date of Onset Reaction(s) Facility (2 sources) patient allergy list reviewed by nurse or physicia Propensity to adverse reactions 6 Comment:Done [employer] Other (1 source) No Known Medication Allergies; 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: [No Known Medication Allergies] Propensity to adverse reactions (disorder) [facility] Repository Medications Current Medications Medication Drug Class(es) Dates Sig (Normalized) Sig (Original) allopurinol 100 mg oral tablet (13 sources) Xanthine Oxidase Inhibitor Start: 07-27-2023 take 1 tablet by mouth once daily Allopurinol Active 1 TAB PO Daily July 27, 2023 1:00am FreeTextSi tablet Orally Once a day; Note: Source Status: Taking; Refills: 12; Qty: 30 Tablet; Provider: Peter Hagan Start: 10-06-2021 take 1 mg by mouth twice daily allopurinol 100 mg Tab mg tab(s), Oral, BID, Refills(s) 0 Start Date: 10/06/21 Status: Ordered amLODIPine 5 mg oral tablet (14 sources) Dihydropyridine Calcium Channel Andrew Start: 10-22-2022 take 1 tablet by mouth once daily Amlodipine Active 1 TAB PO Daily July 27, 2023 1:00am FreeText[employer] tablet Orally Once a day; Note: Source Status: Continue; Provider: Peter Mcfadden ( ) atorvastatin 10 mg oral tablet (20 sources) HMG-CoA Reductase Inhibitor Start: 11-09-2022 take 1 tablet by mouth once daily Atorvastatin Active 1 TAB PO Daily July 27, 2023 1:00am FreeTextSig: TAKE 1 TABLET BY MOUTH EVERY DAY; Note: Source Status: Start; Refills: 11; Qty: 30 Tablet; Provider: Peter Mcfadden ( ) benazepril hydrochloride 20 mg oral tablet (20 sources) Angiotensin Converting Enzyme Inhibitor Start: 07-27-2023 take 1 tablet by mouth once daily Benazepril Active 1 TAB PO Daily July 27, 2023 1:00am FreeTextSi tablet Orally Once a day; Note: Source Status: Continue; Provider: Peter Mcfadden ( ) Start: 03-25-2019 take 1 tablet by osbaldo th once daily benazepril 5 mg oral tablet 5 mg = 1 tab(s), Oral, Daily Start Date: 03/25/19 Status: Ordered take 1 tablet by osbaldo th every twenty-four hours Benazepril HCl 10 MG 1 tablet Orally Once a day for 30 days Active 0.5 ml dulaglutide 1.5 mg/ml auto-injector (20 sources) GLP-1 Receptor Agonist Start: 07-27-2023 End: 09-02-2023 Dulaglutide (Trulicity) 0.75 mg/0.5 mL pen injector Active 0.75 MG SUBCUT every week 6 90 September 02, 2023 5:00pm Start: 07-08-2023 inject 1.5 mg by sub cutaneous injection every week Trulicity 1.5 MG/0.5ML 1.5MG [...] 28 Active finasteride 5 mg oral tablet (13 sources) 5-alpha Reductase Inhibitor Start: 07-27-2023 take 1 tablet by mouth twice daily Finasteride Active 1 TAB PO Twice daily July 27, 2023 1:00am FreeTextSi tablet Orally twice a day; Note: Source Status: Taking; Provider: Peter Mcfadden ( ) Start: 11-09-2022 End: 11-04-2023 take 1 tablet by mouth once daily finasteride 5 mg Tab 5 mg = 1 tab(s), Oral, Daily, X 90 day(s), # 90 tab(s), Refills(s) 3, Pharmacy: [facility]/pharmacy #[id number], 195, cm, 11/09/22 11:00:00 EDT, Height/Length Dosing, 111, kg, 11/09/22 11:00:00 EDT, Weight Dosing Start Date: 11/09/22 Stop Date: 11/04/23 Status: Ordered Start: 10-06-2021 take 1 tablet by osbaldo th once daily finasteride 5 mg Tab 5 mg = 1 tab(s), Oral, Daily, # 90 tab(s), Refills(s) 3, Pharmacy: [facility]/pharmacy #[id number], 195, cm, 10/06/21 8:16:00 EDT, Height/Length Dosing, 109.5, kg, 10/06/21 8:16:00 EDT, Weight Dosing Start Date: 10/06/21 Status: Ordered glimepiride 4 mg oral tablet (20 sources) Sulfonylurea Start: 07-27-2023 take 2 tablets by mouth once daily Glimepiride Active 2 TAB PO Daily July 27, 2023 1:00am FreeTextSi tablets Orally once a day; Note: Source Status: Continue; Provider: Peter Hagan Start: 11-09-2022 glimepiride 4 mg Tab Refills(s) 0 Start Date: 11/09/22 Status: Ordered Glimepiride 4 MG 2 tablets taken 30 minutes prior to first meal of day Orally Once a day Active 3 ml insulin glargine 100 unt/ml pen injector (20 sources) Insulin Analog Start: 08-23-2023 End: 08-23-2023 Insulin Glargine (Lantus Solostar U-100 Insulin) 100 unit/mL (3 mL) insulin pen Active 30 UNIT SUBCUT Every evening 03 16August 23, 2023 2:30pm Start: 11-09-2022 Lantus Solosta r Pen 100 units/mL subcutaneous solution Refills(s) 0 Start Date: 11/09/22 Status: Ordered Start: 09-25-2022 inject 10 [IU] by cifuentes bcutaneous injection once at bedtime Insulin Glargine (Basaglar Kwikpen U-100 Insulin) 100 unit/mL (3 mL) insulin pen Active UNIT SUBCUT July 27, 2023 1:00am FreeTextSi units Subcutaneous q HS; Note: Source Status: Not-Taking\PRN; Refills: 5; Qty: 1 Each; Provider: Peter Hagan Start: 09-25-2022 Lantus SoloSta r 100 UNIT/ML 25 units Subcutaneous q HS Sep, Active Start: 09-25-2022 metFORMIN hydrochloride 1000 mg oral tablet (20 sources) Biguanide Start: 09-16-2023 take 1 tablet by mouth before breakfast Metformin Active 0 .ROUTE .COMPLEX 180 September 16, 2023 5:10pm TAKE 1 TABLET BY MOUTH BEFORE BREAKFAST AND EVENING MEAL Start: 03-25-2019 End: 09-16-2023 take 1000 mg by mouth twice daily at mealtime Metformin Discontinued 1000 MG PO Twice daily with meals July 27, 2023 1:00am September 16, 2023 5:10pm omeprazole 20 mg delayed release oral tablet (10 sources) Proton Pump Inhibitor take 1 tablet by mouth once daily PriLOSEC OTC 20 MG 1 tablet 30 minutes before morning meal Orally Once a day Active take 1 tablet by mouth once mattie y PriLOSEC OTC 20 MG 1 tablet 30 minutes before morning meal Orally Once a day Active Omeprazole Magnesium (Prilosec Otc) 20 mg tablet,delayed release (DR/EC) (1 source) Start: 07-27-2023 take 1 tablet by mouth once daily Omeprazole Magnesium (Prilosec Otc) 20 mg tablet,delayed release (DR/EC) Active 20 MG PO Daily July 27, 2023 1:00am OneTouch Ultra - (19 sources) OneTouch Ultra - USE TO TEST BLOOD SUGAR ONCE A DAY for 50 Active paxlovid (300/100) 20 x 150 mg & 10 x 100mg tablet therapy pack (3 sources) Start: 05-10-2023 Paxlovid (300/ 100) 20 x 150 MG & 10 x 100MG as directed Orally bid for 5 days Apr, Active Pen Grandin /16 (15 sources) Start: 09-27-2022 Start: 09-27-2022 Pen Grandin 16 Use to inject insulin qd SC daily for 30 days Sep, Active tamsulosin hydrochloride 0.4 mg oral capsule (13 sources) alpha-Adrenergic Andrew Start: 10-06-2021 End: 10-27-2023 take 1 capsule by mouth twice daily Tamsulosin Active 1 CAP PO Twice daily July 27, 2023 1:00am FreeTextSi capsule Orally twice a day; Note: Source Status: Taking; Provider: Peter Mcfadden ( ) {20 (nirmatrelvir 150 MG Oral Tablet) / 10 (ritonavir 100 MG Oral Tablet) } Pack [Paxlovid 5-Day] (1 source) Start: 05-10-2023 Paxlovid (300/100) 20 x 150 MG & 10 x 100MG as directed Orally bid for 5 days Apr, Active Completed/Discontinued Medications Medication Drug Class(es) Dates Sig (Normalized) Sig (Original) ascorbic acid 4700 mg / polyethylene glycol 3350 [id number] mg / potassium chloride 1015 mg / [...] a day for 10 day(s) Nov, Not-Taking/PRN Blood Sugar Diagnostic (1 source) Start: 08-16-2023 End: 08-16-2023 Blood Sugar Diagnostic Discontinued 0 .Route 50 August 16, 2023 1:00am August 16, 2023 6:08pm As directed pioglitazone 15 mg oral tablet (17 sources) [...] [Gastroesophageal reflux disease with esophagitis without hemorrhage] 07-27-2023 Chronic Essential hypertension (20 sources) Essential (primary) [...] Other shelter (current) drug therapy; 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: [OTH INTERMEDIATE CURRENT DRUG THERAPY] Onset: 07-03-2022 Episodic Other aftercare (1 source) longterm (current) use of oral hypoglycemic drugs; 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] Onset: 07-03-2022 Episodic Other aftercare (15 sources) Long-term current use of insulin; 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] Episodic Other aftercare (2 sources) 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 Episodic Other aftercare [...] Chronic Other nutritional; endocrine; and metabolic disorders (3 sources) Obesity; 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: [Obesity, unspecified] Onset: 12-15-2013 10-18-2023 Chronic Other nutritional; endocrine; and metabolic disorders (1 source) Body mass index (BMI) 32.0-32.9, adult Chronic Other nutritional; endocrine; and metabolic disorders (1 source) Obesity, unspecified; 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: [Obesity, unspecified] 10-18-2023 Chronic Other nutritional; endocrine; and metabolic disorders [...] Test Name Value Interpretation Reference Range Facility Glucose mean value [Mass/vol ume] in Blood Estimated from glycated hemoglobinon 10-12-2023 Average glucose Estimated from glycated hemoglobin (Bld) [Mass/Vol] 180 mg/dL [facility] - Hematology and Cell countson 10-12-2023 HbA1c (Bld) [Mass fraction] 7.9 % 4.5-6.2 [facility] Comment on above: ADA RECOMMENDED LIMI T 4.0 - 6.0ADA THERAPEUTIC TARGET < 7.0ACTION SUGGESTED> 7.0 GLYCOHEMOGLOBIN A1Con 2022 ADA RECOMMENDATION SEE BELOW Normal [facility] Comment on above: Result Comment: ADA RECOMMENDED LIMIT 4.0 - 6.0 ADA THERAPEUTIC TARGET < 7.0 ACTION SUGGESTED > 7.0 Performed By: #### B MP, LIPID, ALT, URIC #### [facility] [address] [address] [address] Jorge L Carey Glucose [Mass/Vol] 148 mg/dL Normal [facility] Comment on above: Performed By: #### B MP, LIPID, ALT, URIC #### [facility] [address] [address] [address] Jorge L Carey HbA1c (Bld) [Mass fraction] 6.8 % Critically high 4.5-6.2 [facility] Comment on above: Performed By: #### B MP, LIPID, ALT, URIC #### [facility] [address] [place] [address] Dr. Jorge L Carey CARDIAC DANAY ADMITon 023 CK [Catalytic activity/Vol] 59 U/L Normal 39-308 [facility] Comment on above: Performed By: #### C MP, CMADM #### [facility] [address] [place] [address] Dr. Jorge L Carey CK.MB [Mass/Vol] 0.99 ng/mL Normal <=3.60 [facility] Comment on above: Performed By: #### C MP, CMADM #### [facility] [address] [place] [address] Dr. Jorge L Carey HSTROP 10.0 pg/mL Normal 4.0-76.1 [facility] Comment on above: Result Comment: CUT- OFF POINTS HAVE BEEN ESTABLISHED BASED ON THE FOURTH UNIVERSAL DEFINITIONS OF MYOCARDIAL INFARCTION. THE UPPER REFERENCE LIMIT (URL) OF TROPONIN, DEFINED THE 99TH PERCENTILE OF cTnI DISTRIBUTION IN A REFERENCE POPULATION, HAS BEEN CONFIRMED THE DECISION THRESHOLD FOR NC DIAGNOSIS. Performed By: #### C MP, CMADM #### [facility] [address] [place] [address] Dr. Jorge L Carey GARLAND 52 ng/mL Normal 16-96 [facility] Comment on above: Performed By: #### C MP, CMADM #### [facility] [address] [place] [address] Dr. Jorge L Carey CBC AUTO DIFFon 07-01-2022 BASO # 0.0 103/ul Normal 0.0-0.1 [facility] Comment on above: Performed By: #### B MP, LIPID, ALT, URIC #### [facility] [address] [place] [address] Dr. Jorge L Carey Basophils/100 WBC (Bld) 0.3 % Normal 0.2-2.0 [facility] Comment on above: Performed By: #### B MP, LIPID, ALT, URIC #### [facility] [address] [place] [address] Dr. Jorge L Carey EO # 0.1 103/ul Normal 0.0-0.7 [facility] Comment on above: Performed By: #### B MP, LIPID, ALT, URIC #### [facility] [address] [place] [address] Dr. Jorge L Carey Eosinophils/100 WBC (Bld) 0.9 % Normal 0.9-7.0 [facility] Comment on above: Performed By: #### B MP, LIPID, ALT, URIC #### [facility] [address] [place] [address] Dr. Jorge L Carey Erythrocyte distribution width (RBC) [Ratio] 11.7 % Normal 11.0-15.0 [facility] Comment on above: Performed By: #### B MP, LIPID, ALT, URIC #### [facility] [address] [place] [address] Dr. Jorge L Carey Hematocrit (Bld) [Volume fraction] 41.1 % Critically low 42.0-54.0 [facility] Comment on above: Performed By: #### B MP, LIPID, ALT, URIC #### [facility] [address] [place] [address] Dr. Jorge L Carey Hemoglobin (Bld) [Mass/Vol] 14.5 g/dL Normal 14.0-18.0 [facility] Comment on above: Performed By: #### B MP, LIPID, ALT, URIC #### [facility] [address] [address] [address] Jorge L Carey IG # 0.02 10e3/ul Normal 0.00-0.03 [facility] Comment on above: Performed By: #### B MP, LIPID, ALT, URIC #### [facility] [address] [place] [address] Dr. Jorge L Carey IG % 0.3 % Normal 0.0-0.5 [facility] Comment on above: Performed By: #### B MP, LIPID, ALT, URIC #### [facility] [address] [place] [address] Dr. Jorge L Carey LYMPH # 1.1 103/ul Critically low 1.2-3.8 [facility] Comment on above: Performed By: #### B MP, LIPID, ALT, URIC #### [facility] [address] [place] [address] Dr. Jorge L Carey Lymphocytes/100 WBC (Bld) 16.6 % Critically low 20.5-60.0 [facility] Comment on above: Performed By: #### B MP, LIPID, ALT, URIC #### [facility] [address] [place] [address] Dr. Jorge L Carey MANUAL DIFF REQ NO Normal [facility] Comment on above: Performed By: #### B MP, LIPID, ALT, URIC #### [facility] [address] [place] [address] Dr. Jorge L Carey MCH (RBC) [Entitic mass] 30.1 pg Normal 25.9-34.0 [facility] Comment on above: Performed By: #### B MP, LIPID, ALT, URIC #### [facility] [address] [place] [address] Dr. Jorge L Carey MCHC (RBC) [Mass/Vol] 35.3 g/dL Critically high 29.9-35.2 [facility] Comment on above: Performed By: #### B MP, LIPID, ALT, URIC #### [facility] [address] [place] [address] Dr. Jorge L Carey MCV (RBC) [Entitic vol] 85.4 fL Normal 80.0-94.0 [facility] Comment on above: Performed By: #### B MP, LIPID, ALT, URIC #### [facility] [address] [place] [address] Dr. Jorge L Carey MONO # 0.4 103/ul Normal 0.3-0.8 [facility] Comment on above: Performed By: #### B MP, LIPID, ALT, URIC #### [facility] [address] [place] [address] Dr. Jorge L Carey Monocytes/100 WBC (Bld) 5.1 % Normal 1.7-12.0 [facility] Comment on above: Performed By: #### B MP, LIPID, ALT, URIC #### [facility] [address] [place] [address] Dr. Jorge L Carey NEUT # 5.3 103/ul Normal 1.4-6.5 [facility] Comment on above: Performed By: #### B MP, LIPID, ALT, URIC #### [facility] [address] [place] [address] Dr. Jorge L Carey Neutrophils/100 WBC (Bld) 76.8 % Critically high 43.0-75.0 [facility] Comment on above: Performed By: #### B MP, LIPID, ALT, URIC #### [facility] [address] [place] [address] Dr. Jorge L Carey Platelet mean volume (Bld) [Entitic vol] 12.1 fL Normal 9.5-13.5 [facility] Comment on above: Performed By: #### B MP, LIPID, ALT, URIC #### [facility] [address] [place] [address] Dr. Jorge L Carey PLT 147 103/ul Critically low 150-450 [facility] Comment on above: Performed By: #### B MP, LIPID, ALT, URIC #### [facility] [address] [place] [address] Dr. Jorge L Carey RBC 4.81 106/ul Normal 4.70-6.10 [facility] Comment on above: Performed By: #### B MP, LIPID, ALT, URIC #### [facility] [address], [place] [address] Dr. Jorge L Carey WBC 6.9 103/ul Normal 4.0-11.0 [facility] Comment on above: Performed By: #### B MP, LIPID, ALT, URIC #### [facility] [address], [place] [address] [address] HEAD WO [...] MALENA LÓPEZ Date: 2022-07-01 20:24 Normal [facility] Covid-19 PCR (CVDTB)on 06-17 SARS-CoV-2 (COVID-19) RNA EDVIN+probe Ql (Unsp spec) Not detected Normal NOT DETECTED [facility] Comment on above: Result Comment: When [...] for this test is supported by the [place] of Health and Human Service's declaration that [...] used). Performed By: #### C VDTBH #### [facility] [address] [place] [address] Dr. Jorge L Carey D-DIMERon 07-01-2022 D-DIMER 0.21 mg/L FEU Normal <=0.59 [facility] Comment on above: Performed By: #### B MP, LIPID, ALT, URIC #### [facility] [address] [place] [address] Dr. Jorge L Carey D-DIMER COMMENTS SEE BELOW Normal [facility] Comment on above: Result Comment: Incr eases [...] #### B MP, LIPID, ALT, URIC #### [facility] [address] [place] [address] Dr. Jorge L Carey ER URINE PROFILEon 3 Bilirubin Ql (U) Negative Normal NEGATIVE [facility] Comment on above: Performed By: #### B MP, LIPID, ALT, URIC #### [facility] [address] [place] [address] Dr. Jorge L Carey Clarity (U) CLEAR Normal CLEAR [facility] Comment on above: Performed By: #### B MP, LIPID, ALT, URIC #### [facility] [address] [place] [address] Dr. Jorge L Carey Color (U) LT. YELLOW Normal YELLOW [facility] Comment on above: Performed By: #### B MP, LIPID, ALT, URIC #### [facility] [address] [address] [address] Jorge L HERNANDEZ A micrscopic examination will be performed if indicated. Normal [facility] Comment on above: Performed By: #### B MP, LIPID, ALT, URIC #### [facility] [address] [address] [address] Jorge L Carey Glucose Ql (U) Negative Normal NEGATIVE [facility] Comment on above: Performed By: #### B MP, LIPID, ALT, URIC #### [facility] [address] [place] [address] Dr. Jorge L Carey Hemoglobin Ql (U) Negative Normal NEGATIVE [facility] Comment on above: Performed By: #### B MP, LIPID, ALT, URIC #### [facility] [address] [place] [address] Dr. Jorge L Carey Ketones Ql (U) Negative Normal NEGATIVE [facility] Comment on above: Performed By: #### B MP, LIPID, ALT, URIC #### [facility] [address] [place] [address] Dr. Jorge L Carey LEUKOCYTES Negative Normal NEGATIVE [facility] Comment on above: Performed By: #### B MP, LIPID, ALT, URIC #### [facility] [address] [place] [address] Dr. Jorge L Carey Nitrite Ql (U) Negative Normal NEGATIVE [facility] Comment on above: Performed By: #### B MP, LIPID, ALT, URIC #### [facility] [address] [place] [address] Dr. Jorge L Carey pH (U) 6.0 [pH] Normal 5-9 [facility] Comment on above: Performed By: #### B MP, LIPID, ALT, URIC #### [facility] [address] [address] [address] Jorge L Carey SPEC GRAVITY 1.020 Normal 1.005-<=1.025 [facility] Comment on above: Performed By: #### B MP, LIPID, ALT, URIC #### [facility] [address] [place] [address] Dr. Jorge L Carey UA PROTEIN Negative Normal NEGATIVE/ TRACE [facility] Comment on above: Performed By: #### B MP, LIPID, ALT, URIC #### [facility] [address] [place] [address] Dr. Jorge L Carey UR MICRO IND NOT INDICATED Normal [facility] Comment on above: Performed By: #### B MP, LIPID, ALT, URIC #### [facility] [address] [place] [address] Dr. Jorge L Carey Urobilinogen Qn (U) 1.0 {Ila'U}/dL Normal 0.2 - 1. 0 [facility] Comment on above: Performed By: #### B MP, LIPID, ALT, URIC #### [facility] [address] [place] [address] Dr. Jorge L Carey INFLUENZA A AND B AGon 07-01 [facility] SEE BELOW Normal [facility] Comment on above: Result Comment: Nega tive for Flu A protein angiten. Infection due to Flu A cannot be ruled out. Flu A angiten in the sample may be below the detection limit of the test. Performed By: #### I NFLUAB #### [facility] [address] [place] [address] Dr. Jorge L Carey INFLUBNEGH SEE BELOW Normal [facility] Comment on above: Result Comment: Nega tive for Flu B protein antigen. Infection due to Flu B cannot be ruled out. Flu B antigen in the sample may be below the detection limit of the test. Performed By: #### I NFLUAB #### [facility] [address] [place] [address] Dr. Jorge L Carey INFLUENZA A AG Negative Normal NEGATIVE SEE COMMENT [facility] Comment on above: Performed By: #### I NFLUAB #### [facility] [address] [place] [address] Dr. Jorge L Carey INFLUENZA B AG Negative Normal NEGATIVE SEE COMMENT [facility] Comment on above: Performed By: #### I NFLUAB #### [facility] [address] [place] [address] Dr. Jorge L Carey POINT OF CARE GLUCOSEon 06-17 Glucose [Mass/Vol] 130 mg/dL Critically [facility] Comment on above: Performed By: #### B MP, LIPID, ALT, URIC #### [facility] [address] [place] [address] Dr. Jorge L Carey PROF 14(COMP METB)on 023 Albumin [Mass/Vol] 3.7 g/dL Normal 3.4-5.0 [facility] Comment on above: Performed By: #### C MP, CMADM #### [facility] [address] [place] [address] Dr. Jorge L Carey Albumin/Globulin [Mass ratio] 1.2 {ratio} Normal [facility] Comment on above: Performed By: #### C IGGY, CMADM #### [facility] [address] [place] [address] Dr. Jorge L Carey ALP [Catalytic activity/Vol] 49 U/L Normal 46-116 [facility] Comment on above: Performed By: #### C IGGY, CMADM #### [facility] [address] [place] [address] Dr. Jorge L Carey ALT [Catalytic activity/Vol] 30 U/L Normal 16-63 [facility] Comment on above: Performed By: #### C IGGY, CMADM #### [facility] [address] [place] [address] Dr. Jorge L Carey Anion gap [Moles/Vol] 12.7 mmol/L Normal [facility] Comment on above: Performed By: #### C MP, CMADM #### [facility] [address] [place] [address] Dr. Jorge L Carey AST [Catalytic activity/Vol] 21 U/L Normal 15-37 [facility] Comment on above: Performed By: #### C MP, CMADM #### [facility] [address] [place] [address] Dr. Jorge L Carey Bilirubin [Mass/Vol] 0.5 mg/dL Normal 0.2-1.0 [facility] Comment on above: Performed By: #### C IGGY, CMADM #### [facility] [address] [address] [address] Jorge L Carey Calcium [Mass/Vol] 8.9 mg/dL Normal 8.5-10.1 [facility] Comment on above: Performed By: #### C MP, CMADM #### [facility] [address] [place] [address] Dr. Jorge L Carey Chloride [Moles/Vol] 100 mmol/L Normal 98-107 [facility] Comment on above: Performed By: #### C IGGY, CMADM #### [facility] [address] [place] [address] Dr. Jorge L Carey CO2 [Moles/Vol] 29.0 mmol/L Normal 21.0-32.0 [facility] Comment on above: Performed By: #### C IGGY, CMADM #### [facility] [address] [place] [address] Dr. Jorge L Carey Creatinine [Mass/Vol] 1.04 mg/dL Normal 0.70-1.30 [facility] Comment on above: Performed By: #### C IGGY, CMADM #### [facility] [address] [place] [address] Dr. Jorge L Carey EGFR-AF SINGAPOREAN >60 Normal >=60 [facility] Comment on above: Performed By: #### C IGGY, CMADM #### [facility] [address] [place] [address] Dr. Jorge L Carey EGFR-NON AF SINGAPOREAN >60 Normal >=60 [facility] Comment on above: Performed By: #### C IGGY, CMADM #### [facility] [address] [place] [address] Dr. Jorge L Carey Globulin (S) [Mass/Vol] 3.1 g/dL Normal [facility] Comment on above: Performed By: #### C IGGY, CMADM #### [facility] [address] [place] [address] Dr. Jorge L Carey Glucose [Mass/Vol] 140 mg/dL Critically high 74-106 [facility] Comment on above: Performed By: #### C MP, CMADM #### [facility] [address] [place] [address] Dr. Jorge L Carey Potassium [Moles/Vol] 3.7 mmol/L Normal 3.5-5.1 [facility] Comment on above: Performed By: #### C MP, CMADM #### [facility] [address] [place] [address] Dr. Jorge L Carey Protein [Mass/Vol] 6.8 g/dL Normal 6.4-8.2 [facility] Comment on above: Performed By: #### C MP, CMADM #### [facility] [address] [place] [address] Dr. Jorge L Carey Sodium [Moles/Vol] 138 mmol/L Normal 136-145 [facility] Comment on above: Performed By: #### C MP, CMADM #### [facility] [address] [place] [address] Dr. Jorge L Carey Urea nitrogen [Mass/Vol] 13.0 mg/dL Normal 7.0-18.0 [facility] Comment on above: Performed By: #### C IGGY, CMADM #### [facility] [address] [place] [address] Dr. Jorge L Carey Urea nitrogen/Creatinine [Mass ratio] 12.5 mg/mg Normal [facility] Comment on above: Performed By: #### C IGGY, CMADM #### [facility] [address] [place] [address] Dr. Jorge L Carey TROPONIN, HIGH SENSITIVITYon 07-01-2022 HSTROP 10.9 pg/mL Normal 4.0-76.1 [facility] Comment on above: Result Comment: CUT- OFF POINTS HAVE BEEN ESTABLISHED BASED ON THE FOURTH UNIVERSAL DEFINITIONS OF MYOCARDIAL INFARCTION. THE UPPER REFERENCE LIMIT (URL) OF TROPONIN, DEFINED THE 99TH PERCENTILE OF cTnI DISTRIBUTION IN A REFERENCE POPULATION, HAS BEEN CONFIRMED THE DECISION THRESHOLD FOR NC DIAGNOSIS. Performed By: #### B MP, LIPID, ALT, URIC #### [facility] [address] [place] [address] Dr. Jorge L Carey XR CHEST 1 Von 07-01-2022 XR CHEST 1 V EXAMINATION: XR CHEST 1 V HISTORY: Shortness of breath COMPARISON: None. TECHNIQUE: Portable chest FINDINGS: The lung parenchyma is free of consolidation or infiltrate. No pneumothorax or pleural effusion. The cardiac, mediastinal and hilar contours are normal. The visualized osseous structures exhibit no gross abnormality. IMPRESSION: No acute cardiopulmonary abnormality. Electronically authenticated by: [employer] MASTERS Date: 2022-07-01 19:57 Normal [facility] CBC AUTO DIFFon 04-18-2022 BASO # 0.0 103/ul Normal 0.0-0.1 [facility] Comment on above: Performed By: #### C BC #### [facility] [address] [place] [address] Dr. Jorge L Carey Basophils/100 WBC (Bld) 0.7 % Normal 0.2-2.0 [facility] Comment on above: Performed By: #### C BC #### [facility] [address] [place] [address] Dr. Jorge L Carey EO # 0.2 103/ul Normal 0.0-0.7 [facility] Comment on above: Performed By: #### C BC #### [facility] [address] [place] [address] Dr. Jorge L Carey Eosinophils/100 WBC (Bld) 2.6 % Normal 0.9-7.0 [facility] Comment on above: Performed By: #### C BC #### [facility] [address] [place] [address] Dr. Jorge L Carey Erythrocyte distribution width (RBC) [Ratio] 11.5 % Normal 11.0-15.0 [facility] Comment on above: Performed By: #### C BC #### [facility] [address] [place] [address] Dr. Jorge L Carey Hematocrit (Bld) [Volume fraction] 44.7 % Normal 42.0-54.0 [facility] Comment on above: Performed By: #### C BC #### [facility] [address] [place] [address] Dr. Jorge L Carey Hemoglobin (Bld) [Mass/Vol] 15.5 g/dL Normal 14.0-18.0 [facility] Comment on above: Performed By: #### C BC #### [facility] [address] [place] [address] Dr. Jorge L Carey IG # 0.01 10e3/ul Normal 0.00-0.03 [facility] Comment on above: Performed By: #### C BC #### [facility] [address] [place] [address] Dr. Jorge L Carey IG % 0.2 % Normal 0.0-0.5 [facility] Comment on above: Performed By: #### C BC #### [facility] [address] [place] [address] Dr. Jorge L Carey LYMPH # 1.3 103/ul Normal 1.2-3.8 [facility] Comment on above: Performed By: #### C BC #### [facility] [address] [place] [address] Dr. Jorge L Carey Lymphocytes/100 WBC (Bld) 21.3 % Normal 20.5-60.0 [facility] Comment on above: Performed By: #### C BC #### [facility] [address] [place] [address] Dr. Jorge L Carey MANUAL DIFF REQ NO Normal [facility] Comment on above: Performed By: #### C BC #### [facility] [address] [place] [address] Dr. Jorge L Carey MCH (RBC) [Entitic mass] 30.1 pg Normal 25.9-34.0 [facility] Comment on above: Performed By: #### C BC #### [facility] [address] [place] [address] Dr. Jorge L Carey MCHC (RBC) [Mass/Vol] 34.7 g/dL Normal 29.9-35.2 [facility] Comment on above: Performed By: #### C BC #### [facility] [address] [place] [address] Dr. Jorge L Carey MCV (RBC) [Entitic vol] 86.8 fL Normal 80.0-94.0 [facility] Comment on above: Performed By: #### C BC #### [facility] [address] [place] [address] Dr. Jorge L Carey MONO # 0.4 103/ul Normal 0.3-0.8 [facility] Comment on above: Performed By: #### C BC #### [facility] [address] [place] [address] Dr. Jorge L Carey Monocytes/100 WBC (Bld) 7.2 % Normal 1.7-12.0 [facility] Comment on above: Performed By: #### C BC #### [facility] [address] [place] [address] Dr. Jorge L Carey NEUT # 4.1 103/ul Normal 1.4-6.5 [facility] Comment on above: Performed By: #### C BC #### [facility] [address] [place] [address] Dr. Jorge L Carey Neutrophils/100 WBC (Bld) 68.0 % Normal 43.0-75.0 [facility] Comment on above: Performed By: #### C BC #### [facility] [address] [place] [address] Dr. Jorge L Carey Platelet mean volume (Bld) [Entitic vol] 12.0 fL Normal 9.5-13.5 [facility] Comment on above: Performed By: #### C BC #### [facility] [address] [place] [address] Dr. Jorge L Carey PLT 163 103/ul Normal 150-450 [facility] Comment on above: Performed By: #### C BC #### [facility] [address] [place] [address] Dr. Jorge L Carey RBC 5.15 106/ul Normal 4.70-6.10 [facility] Comment on above: Performed By: #### C BC #### [facility] [address] [place] [address] Dr. Jorge L Carey WBC 6.1 103/ul Normal 4.0-11.0 [facility] Comment on above: Performed By: #### C BC #### [facility] [address] [address] [address] Jorge L Carey GLYCOHEMOGLOBIN A1Con 2021 ADA RECOMMENDATION SEE BELOW Normal [facility] Comment on above: Result Comment: ADA RECOMMENDED LIMIT 4.0 - 6.0 ADA THERAPEUTIC TARGET < 7.0 ACTION SUGGESTED > 7.0 Performed By: #### B MP, LIPID, ALT, URIC #### [facility] [address] [address] [address] Jorge L Carey Glucose [Mass/Vol] 146 mg/dL Normal [facility] Comment on above: Performed By: #### B MP, LIPID, ALT, URIC #### [facility] [address] [address] [address] Jorge L Carey HbA1c (Bld) [Mass fraction] 6.7 % Critically high 4.5-6.2 [facility] Comment on above: Performed By: #### B MP, LIPID, ALT, URIC #### [facility] [address] [address] [address] Jorge L Carey LIPID PROFILEon 04-18-2022 CHOL-HDL RATIO NORM SEE BELOW Normal [facility] Comment on above: Result Comment: 3.3 - 4.4 LOW RISK 4.4 - 7.1 AVERAGE RISK 7.1 - 11.0 MODERATE RISK >11.0 HIGH RISK Performed By: #### B MP, LIPID, ALT, URIC #### [facility] [address] [address] [address] Jorge L Carey Cholesterol [Mass/Vol] 117 mg/dL Normal <=200 [facility] Comment on above: Performed By: #### B MP, LIPID, ALT, URIC #### [facility] [address] [address] [address] Jorge L Carey Cholesterol in HDL [Mass/Vol] 48 mg/dL Normal 40-60 [facility] Comment on above: Performed By: #### B MP, LIPID, ALT, URIC #### [facility] [address] [address] [address] Jorge L Carey Cholesterol in LDL [Mass/Vol] 50.6 mg/dL Normal [facility] Comment on above: Performed By: #### B MP, LIPID, ALT, URIC #### [facility] [address] [address] [address] Jorge L Carey Cholesterol.total/Cho lesterol in HDL [Mass ratio] 2.4 {ratio} Normal [facility] Comment on above: Performed By: #### B MP, LIPID, ALT, URIC #### [facility] [address] [address] [address] Jorge L Carey HDL NORMAL > or = 60 mg/dl - LOW CARDIOVASCULAR RISK <40 mg/dl - HIGH CARDIOVASCULAR RISK Normal [facility] Comment on above: Performed By: #### B MP, LIPID, ALT, URIC #### [facility] [address] [address] [address] Jorge L Carey LDL CALC NORMAL SEE BELOW Normal [facility] Comment on above: Result Comment: <100 mg/dl OPTIMAL 100 - 129 mg/dl NEAR OR ABOVE OPTIMAL 130 - 159 mg/dl BORDERLINE HIGH 160 - 189 mg/dl HIGH >190 mg/dl VERY HIGH Performed By: #### B MP, LIPID, ALT, URIC #### [facility] [address] [address] [address] Jorge L Carey Triglyceride [Mass/Vol] 92 mg/dL Normal <=150 [facility] Comment on above: Performed By: #### B MP, LIPID, ALT, URIC #### [facility] [address] [address] [address] Jorge L Carey VLDL CALC 18.4 mg/dL Normal [facility] Comment on above: Performed By: #### B MP, LIPID, ALT, URIC #### [facility] [address] [address] [address] Jorge L Carey MICROALBUMIN, RAND URon 11-0 mALB <1.3 Normal <=30.0 [facility] Comment on above: Performed By: #### M ALBR #### [facility] [address] [address] [address] Jorge L Carey PROF CHEM 8 (BAS METB)on Anion gap [Moles/Vol] 9.5 mmol/L Normal [facility] Comment on above: Performed By: #### B MP, LIPID, ALT, URIC #### [facility] [address] [place] [address] Dr. Jorge L Carey Calcium [Mass/Vol] 8.6 mg/dL Normal 8.5-10.1 [facility] Comment on above: Performed By: #### B MP, LIPID, ALT, URIC #### [facility] [address] [place] [address] Dr. Jorge L Carey Chloride [Moles/Vol] 102 mmol/L Normal 98-107 [facility] Comment on above: Performed By: #### B MP, LIPID, ALT, URIC #### [facility] [address] [place] [address] Dr. Jorge L Carey CO2 [Moles/Vol] 30.8 mmol/L Normal 21.0-32.0 [facility] Comment on above: Performed By: #### B MP, LIPID, ALT, URIC #### [facility] [address] [place] [address] Dr. Jorge L Carey Creatinine [Mass/Vol] 0.95 mg/dL Normal 0.70-1.30 [facility] Comment on above: Performed By: #### B MP, LIPID, ALT, URIC #### [facility] [address] [place] [address] Dr. Jorge L Carey EGFR-AF SINGAPOREAN >60 Normal >=60 [facility] Comment on above: Performed By: #### B MP, LIPID, ALT, URIC #### [facility] [address] [place] [address] Dr. Jorge L Carey EGFR-NON AF SINGAPOREAN >60 Normal >=60 [facility] Comment on above: Performed By: #### B MP, LIPID, ALT, URIC #### [facility] [address] [place] [address] Dr. Jorge L Carey Glucose [Mass/Vol] 142 mg/dL Critically high 74-106 [facility] Comment on above: Performed By: #### B MP, LIPID, ALT, URIC #### [facility] [address] [place] [address] Dr. Jorge L Carey Potassium [Moles/Vol] 4.3 mmol/L Normal 3.5-5.1 [facility] Comment on above: Performed By: #### B MP, LIPID, ALT, URIC #### [facility] [address] [place] [address] Dr. Jorge L Carey Sodium [Moles/Vol] 138 mmol/L Normal 136-145 [facility] Comment on above: Performed By: #### B MP, LIPID, ALT, URIC #### [facility] [address] [place] [address] Dr. Jorge L Carey Urea nitrogen [Mass/Vol] 14.0 mg/dL Normal 7.0-18.0 [facility] Comment on above: Performed By: #### B MP, LIPID, ALT, URIC #### [facility] [address] [place] [address] Dr. Jorge L Carey Urea nitrogen/Creatinine [Mass ratio] 14.7 mg/mg Normal [facility] Comment on above: Performed By: #### B MP, LIPID, ALT, URIC #### [facility] [address] [place] [address] Dr. Jorge L Carey SGPTon 04-18-2022 ALT [Catalytic activity/Vol] 27 U/L Normal 16-63 [facility] Comment on above: Performed By: #### B MP, LIPID, ALT, URIC #### [facility] [address] [place] [address] Dr. Jorge L Carey URIC ACID SERUMon 04-18-2022 Urate [Mass/Vol] 5.5 mg/dL Normal 3.5-7.2 [facility] Comment on above: Performed By: #### B MP, LIPID, ALT, URIC #### [facility] [address] [place] [address] Dr. Jorge L Carey GLYCOHEMOGLOBIN A1Con 2021 ADA RECOMMENDATION SEE BELOW Normal [facility] Comment on above: Result Comment: ADA RECOMMENDED LIMIT 4.0 - 6.0 ADA THERAPEUTIC TARGET < 7.0 ACTION SUGGESTED > 7.0 Performed By: #### B MP, LIPID, ALT, URIC #### [facility] [address] [address] [address] Jorge L Carey Glucose [Mass/Vol] 160 mg/dL Normal [facility] Comment on above: Performed By: #### B MP, LIPID, ALT, URIC #### [facility] [address] [address] [address] Jorge L Carey HbA1c (Bld) [Mass fraction] 7.2 % Critically high 4.5-6.2 [facility] Comment on above: Performed By: #### B MP, LIPID, ALT, URIC #### [facility] [address] [address] [address] Jorge L Carey GLYCOHEMOGLOBIN A1Con 2021 ADA RECOMMENDATION ADA THERAPEUTIC TARGET 6.0 - 7.0 ACTION SUGGESTED > 7.0 Normal [facility] Comment on above: Performed By: #### B MP, LIPID, ALT, URIC #### [facility] [address] [address] [address] Jorge L Carey Glucose [Mass/Vol] 177 mg/dL Normal [facility] Comment on above: Performed By: #### B MP, LIPID, ALT, URIC #### [facility] [address] [address] [address] Jorge L Carey HbA1c (Bld) [Mass fraction] 7.8 % Critically high <=6.0 [facility] Comment on above: Performed By: #### B MP, LIPID, ALT, URIC #### [facility] [address] [address] [address] Jorge L Carey [facility] [employer] 09-17-2020 Glucose [Mass/Vol] 151 mg/dL Normal [facility] Comment on above: Result Comment: PERF ORMED BY: [place] [address] PATHOLOGIST [employer] SUSAN SEXTON M.D. Performed By: #### O LUCI GLYCO #### [address] HbA1c (Bld) [Mass fraction] 6.9 % High 4.3-5.6 [facility] Comment on above: Result Comment: Incr eased risk for diabetes: 5.7 - 6.4 diabetes: >6.4 glycemic control for adults with diabetes: <7.0 Performed By: #### O MOE GLYCO #### [id number] [facility] Vital Signs Date Time Vital Sign Value Performing Clinician Facility 10-18-2023 09:06-0400 Body height 190.5 cm [facility] 10-18-2023 09:06-0400 Body mass index (BMI) [Ratio] 31.8 kg/m2 [facility] 10-18-2023 [id number] Body weight 115.32 kg [facility] 10-18-2023 09:06-0400 Diastolic blood pressure 77 mm[Hg] [facility] 10-18-2023 09:06-0400 Heart rate 80 /min [facility] 10-18-2023 09:06-0400 Respiratory rate 12 /min [facility] 10-18-2023 09:06-0400 Systolic blood pressure 116 mm[Hg] [facility] 07-08-2023 09:00-0500 Body height 190.5 cm Bogdan Ball Other [facility] [employer] Other 07-08-2023 09:00-0500 Body mass index (BMI) [Ratio] 32.62 kg/m2 Bogdan Ball Other [facility] [employer] Other 07-08-2023 09:00-0500 Body weight 118.39 kg Bogdan Ball Other [facility] [employer] Other 07-08-2023 09:00-0500 Diastolic blood pressure 81 mm[Hg] Bogdan Ball Other [facility] [employer] Other 07-08-2023 09:00-0500 Respiratory rate 12 /min Bogdan Ball Other [facility] [employer] Other 07-08-2023 09:00-0500 Systolic blood pressure 117 mm[Hg] Bogdan Ball Other [employer] Other 05-01-2023 08:30-0500 Body height 190.5 cm Bogdan Ball Other [employer] Other 05-01-2023 08:30-0500 Body mass index (BMI) [Ratio] 32.19 kg/m2 Bogdan Ball Other [employer] Other 05-01-2023 08:30-0500 Body weight 116.85 kg Bogdan Ball Other [employer] Other 05-01-2023 08:30-0500 Diastolic blood pressure 81 mm[Hg] Bogdan Ball Other [employer] Other 05-01-2023 08:30-0500 Respiratory rate 12 /min Bogdan Ball Other [employer] Other 05-01-2023 08:30-0500 Systolic blood pressure 135 mm[Hg] Bogdan Ball Other [employer] Other 12-26-2022 08:30-0400 Body height 190.5 cm Bogdan Ball Other [employer] Other 12-26-2022 08:30-0400 Body mass index (BMI) [Ratio] 31.54 kg/m2 Bogdan Ball Other [employer] Other 12-26-2022 08:30-0400 Body weight 114.49 kg Bogdan Ball Other [employer] Other 12-26-2022 08:30-0400 Diastolic blood pressure 85 mm[Hg] Bogdan Ball Other [employer] Other 12-26-2022 08:30-0400 Respiratory rate 12 /min Bogdan Ball Other [employer] [facility] [employer] Other 12-26-2022 08:30-0400 Systolic blood pressure 139 mm[Hg] Bogdan Ball Other [employer] [facility] [employer] Other 11-09-2022 10:58-0400 Blood Pressure Location Hola GARCIA [facility] 11-09-2022 10:58-0400 Diastolic blood pressure 80 mm[Hg] Hola GARCIA [facility] 11-09-2022 10:58-0400 Heart rate 78 /min Hola GARCIA [facility] 11-09-2022 10:58-0400 Respiratory rate 16 /min Hola GARCIA [facility] 11-09-2022 10:58-0400 Systolic blood pressure 130 mm[Hg] Hola GARCIA [facility] 10-05-2022 12:15-0400 Body height 190.5 cm Bogdan Ball Other [facility] [employer] Other 10-05-2022 12:15-0400 Body mass index (BMI) [Ratio] 31.17 kg/m2 Bogdan Ball Other [employer] [facility] [employer] Other 10-05-2022 12:15-0400 Body weight 113.13 kg Bogdan Ball Other [employer] Other 10-05-2022 12:15-0400 Diastolic blood pressure 95 mm[Hg] Bogdan Ball Other [employer] Other 10-05-2022 12:15-0400 Respiratory rate 12 /min Bogdan Ball Other [employer] Other 10-05-2022 12:15-0400 Systolic blood pressure 168 mm[Hg] Bogdan Ball Other [employer] Other 08-23-2022 08:30-0500 Body height 190.5 cm Bogdan Ball Other [employer] Other 08-23-2022 08:30-0500 Body mass index (BMI) [Ratio] 31.42 kg/m2 Bogdan Ball Other [employer] Other 08-23-2022 08:30-0500 Body weight 114.04 kg Bogdan Ball Other [employer] Other 08-23-2022 08:30-0500 Diastolic blood pressure 86 mm[Hg] Bogdan Ball Other [employer] Other 08-23-2022 08:30-0500 Respiratory rate 12 /min Bogdan Ball Other [employer] Other 08-23-2022 08:30-0500 Systolic blood pressure 132 mm[Hg] Bogdan Ball Other [employer] Other 10-06-2021 08:14-0400 Blood Pressure Location Hola GARCIA [facility] 10-06-2021 08:14-0400 Diastolic blood pressure 98 mm[Hg] Hola GARCIA [facility] 10-06-2021 08:14-0400 Heart rate 78 /min Hola GARCIA [facility] 10-06-2021 08:14-0400 Systolic blood pressure 145 mm[Hg] [facility] Encounter Date Encounter Type Care Provider Facility Start: 04-03-2024 ambulatory Hola GARCIA Facili ty:[facility] Start: 10-18-2023 End: 10-18-2023 ambulatory [facility] Work Phone: Start: 10-18-2023 End: 10-18-2023 Patient encounter procedure [facility] Work Phone: Start: 10-12-2023 Non-patient / Non-visit [facility] Work Phone: Start: 08-23-2023 Non-patient / Non-visit [facility] Work Phone: Start: 08-19-2023 End: 08-20-2023 ambulatory Dm Cyr MD Facility:[facility] Start: 08-16-2023 Non-patient / Non-visit [facility] Work Phone: Start: 07-30-2023 Non-patient / Non-visit [facility] Work Phone: Start: 07-29-2023 End: 07-30-2023 ambulatory Dm Cyr MD [employer] Other Start: 07-29-2023 Telephone encounter Bogdan HORTON [facility] Start: 07-15-2023 End: 07-16-2023 ambulatory [facility] Start: 07-08-2023 End: 07-08-2023 ambulatory Bogdan Green Other [employer] Other Start: 07-08-2023 Office outpatient vi sit 25 minutes Bogdan Ball [facility] Start: 06-24-2023 End: 06-25-2023 ambulatory [facility] Start: 05-20-2023 End: 05-21-2023 ambulatory Dm Cyr MD Facility:[facility] Start: 05-10-2023 End: 05-10-2023 ambulatory Bogdan Peter Other [employer] Other Start: 05-10-2023 Office outpatient vi sit 15 minutes Bogdan Ball [facility] Start: 05-01-2023 End: 05-01-2023 ambulatory Bogdan Ball Other [employer] Other Start: 05-01-2023 Patient encounter procedure Bogdan Ball [facility] Start: 04-24-2023 End: 04-24-2023 ambulatory Bogdan Ball Other [employer] Other Start: 04-24-2023 Telephone encounter Bogdan Ball [facility] Start: 02-25-2023 End: 02-25-2023 ambulatory Bogdan Ball Other [employer] Other Start: 02-25-2023 Telephone encounter Bogdan Ball [facility] Start: 12-27-2022 End: 12-27-2022 ambulatory Bogdan Ball Other [employer] Other Start: 12-27-2022 Telephone encounter Bogdan Ball [facility] Start: 12-26-2022 End: 12-26-2022 ambulatory Bogdan Ball Other [employer] Other Start: 12-26-2022 Office outpatient vi sit 25 minutes Bogdan Ball [facility] Start: 11-19-2022 End: 11-19-2022 ambulatory Bogdan Ball Other [employer] Other Start: 11-19-2022 Telephone encounter Bogdan Ball [facility] Start: 11-09-2022 End: 11-09-2022 Patient encounter procedure Hola GARCIA [facility] Start: 10-22-2022 End: 10-22-2022 ambulatory Bogdan Ball Other [employer] Other Start: 10-22-2022 Telephone encounter Bogdan Ball [facility] Start: 10-18-2022 End: 10-18-2022 ambulatory Bogdan Ball Other [employer] Other Start: 10-18-2022 Telephone encounter Bogdan Ball [facility] Start: 10-05-2022 End: 10-05-2022 ambulatory Bogdan Ball Other [employer] Other Start: 10-05-2022 Office outpatient vi sit 15 minutes Bogdan Ball [facility] Start: 09-27-2022 End: 09-27-2022 ambulatory Bogdan Ball Other [employer] Other Start: 09-27-2022 Telephone encounter Bogdan Ball [facility] Start: 09-25-2022 End: 09-25-2022 ambulatory Bogdan Ball Other [employer] Other Start: 09-25-2022 Telephone encounter Bogdan Ball [facility] Start: 09-21-2022 End: 09-21-2022 ambulatory Bogdan Ball Other [employer] Other Start: 09-21-2022 Telephone encounter Bogdan Ball [facility] Start: 08-23-2022 End: 08-23-2022 ambulatory Bogdan Ball Other [employer] Other Start: 08-23-2022 Office outpatient vi sit 25 minutes Bogdan Ball [facility] Start: 08-17-2022 End: 08-18-[address] BOGDAN GREEN Facility:[facility] Start: 08-14-2022 End: 08-14-2022 ambulatory Bogdan Green Other [employer] Other Start: 08-14-2022 Telephone encounter Bogdan Green [facility] Start: 07-01-2022 End: 07-01-[address] BOGDAN GREEN Facility:[facility] Start: 04-25-2022 Adult health examination Bogdan Peter Other [employer] Other Start: 04-18-2022 End: 04-19-[address] BOGDAN GREEN Facility:[facility] Start: 01-20-2022 End: 01-21-2022 ambulatory NONE LISTED REQUEST Facility:[facility] Start: 10-06-2021 End: 10-06-2021 Patient encounter procedure Hola GARCIA [facility] Start: 09-16-2021 End: 09-17-[address] HOLA GARCIA . Facility:[facility] Start: 09-15-2021 End: 09-16-2021 ambulatory NONE LISTED REQUEST Facility:[facility] Start: 08-29-[address] BOGDAN GREEN Facili ty:[facility] Procedures Date Procedure Procedure Detail Performing Clinician Start: 09-16-[address] PISANO [place] Comment on above: Performed By: #### B MP, LIPID, ALT, URIC #### [facility] [address] [address] [address] Jorge L Carey Start: 03-29-2017 General examination of patient Bogdan Green Other Start: 12-20-2015 Cystoscopy Hola FAITH Start: 12-15-2013 Hyperlipidemia screening Bogdan Green Other Start: 12-15-2013 Screening for malign ant neoplasm of prostate Bogdan Green Other Colonoscopy Hola GARCIA Depression screening Dwight Green Other History of hernia repair Maureen GARCIA Perirectal abscess (disorder) Hola GARCIA Screening for malign ant neoplasm of colon Bogdan Green Other Plan of Treatment Date Care Activity Detail Author [facility] Immunizations Immunization Date Immunization Notes Care Provider Fa tri 04-29-2023 zoster vaccine recombinant Bogdan Green Other [facility] 04-26-2023 influenza virus vaccine, unspecified formulation [facility] 04-26-2023 influenza, high dose seasonal, preservative-free Bogdan Green Other [employer] Other 02-26-2023 zoster vaccine recombinant Bogdan Green Other [facility] 04-25-2022 pneumococcal 20-alber nt conjugate vaccine Hola GARCIA [facility] 04-16-2022 influenza virus vaccine, split virus (incl. purified surface antigen) Bogdan Green Other [employer] Other 04-16-2022 influenza virus vaccine, unspecified formulation Hola GARCIA [facility] 03-23-2022 SARS-CoV-2 (COVID-19 ) [id number] Hola GARCIA [facility] 05-08-2021 SARS-CoV-2 (COVID-19 ) mRNA BNT-162b2 vax Hola GARCIA [facility] 04-22-2021 influenza virus vaccine, split virus (incl. purified surface antigen) Bogdan Green Other [employer] Other 04-22-2021 influenza virus vaccine, unspecified formulation Hola GARCIA [facility] 03-30-2021 influenza virus vaccine, unspecified formulation Hola GARCIA [facility] 09-16-2020 COVID-19, mRNA, LNP- S, PF, 30 mcg/0.3 mL dose; 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: [Pfizer-BioNTech COVID-19 Vaccine] Hola GARCIA [facility] Comment on above: Reason for Medicatio n: Prophylaxis 08-26-2020 COVID-19, mRNA, LNP- S, PF, 30 mcg/0.3 mL dose; 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: [Pfizer-BioNTech COVID-19 Vaccine] Hola GARCIA [facility] Comment on above: Reason for Medicatio n: Prophylaxis 04-16-2020 influenza virus vaccine, split virus (incl. purified surface antigen) Bogdan Green Other [employer] Other 04-16-2020 influenza virus vaccine, unspecified formulation Holaconnor GARCIA [facility] pneumococcal Conjuga te, unspecified formulation; 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: [Need for prophylactic vaccination against Streptococcus pneumoniae (pneumococcus)] Bogdan Green Other [employer] Other Payers Date Payer Category Payer Medicare 2022 Unknown 2021 Medicare [id number] 2020 Unknown [id number] 1959 Medicare [id number] 1959 Self-pay [id number] 1959 Unknown [id number] 1959 Unknown [id number] 1955 Unknown [id number] 2.16.84 [id number] 1955 Unknown [id number] 2.16.84 [id number] 1955 Unknown [id number] 2.16.84 0.1.641234.3.579.2.593 1956 Unknown [id number] 2.16.84 0.1.699422.3.579.2.593 1956 Unknown [id number] 2.16.84 0.1.845390.3.579.2.593 1956 Unknown [id number] 2.16. 840.1.568932.3.579.2.196 1955 Unknown [id number] 2.16. 840.1.138010.3.579.2.196 1955 Unknown [id number] 2.16. 840.1.044397.3.579.2.196 1956 Unknown [id number] 2.16. 840.1.906770.3.579.2.196 1956 Unknown [id number] 2.16. 840.1.358554.3.579.2.196 1955 Unknown [id number] 2.16.8 [id number] Blue Cross Blue [facility] [id number] [id number] Self-pay Self Pay [id number] Unknown [id number] 2.16.84 [id number] Unknown [id number] 2.16.84 [id number] Social History Date Type Detail Facility Start: 10-06-2021 End: 07-27-2023 Tobacco smoking status Never smoked tobacco (finding) [facility] Sex Assigned At Male [facility] Tobacco smoking status Never [facility] Start: 1955 Sex Assigned At Male F [facility] Medical Equipment Procedure Code Equipment Code Equipment Origin al Text Equipment Identifier Dates Blood Sugar Diagnostic (Onetouch Ultra Test) strip Start: 08-16-2023 Functional Status Date Assessment Result Facility 11-09-2022 Functional Status N/A [facility] Clinical Notes 10-06-2021 to 07-29-2023 Note Date & Type Note Facility 07-29-2023 Evaluation note Encounter Date Diagnosis Assessment Notes Jul, Type 2 diabetes mellitus with hyperglycemia , without long-term current use of insulin (ICD-10 - E11.65) [employer] Other 01-22-2024 Evaluation note* Encounter Date Diagnosis [...] index [BMI] 32.0-32.9, adult (ICD-10 - Z68.32) [employer] Other 11-24-2023 Evaluation note* Encounter Date Diagnosis [...] Microalbumin, Dilated eye exam and Foot exam [employer] Other 11-15-2023 Evaluation note* Encounter Date Diagnosis [...] flares Sep, Thrombocytopenia, unspecified (ICD-10 - D69.6) [employer] Other 11-15-2023 Evaluation note* Encounter Date Diagnosis [...] flares Sep, Thrombocytopenia, unspecified (ICD-10 - D69.6) [employer] Other 11-08-2023 Evaluation note* Encounter Date Diagnosis Assessment Notes Treatment Notes Treatment Clinical Notes Apr, Screening PSA (prostate specific antigen) (ICD-10 - Z12.5) Apr, Type 2 diabetes mellitus with hyperglycemia, without long-term current use of insulin (ICD-10 - E11.65) Apr, Elevated cholesterol (ICD-10 - E78.00) Apr, Primary hypertension (ICD-10 - I10) Sep, Thrombocytopenia, unspecified (ICD-10 - D69.6) Thrombocytopenia [employer] Other 07-12-2023 Evaluation note* Encounter Date Diagnosis [...] [BMI] 31.0-31.9, adult (ICD-10 - Z68.31) Dec, 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 Where to find more information [employer] [place] [employer]: www.cancer.org [place] [employer]: www.auanet.org Contact a health care [...] provider. Document Revised: 11/27/2021 Document Reviewed: 11/27/2021 [employer] Patient Education 2022 [employer]. Follow Up Care 10/06/2021 08:40:21 With:JOSE MCMANUS, Hola Rushing, URL Address: [facility] [address], [place] [address]- When: Unknown [facility] 05-08-2023 Evaluation note* Encounter Date Diagnosis Assessment Notes Treatment Notes Treatment Clinical Notes October, Primary hypertension (ICD-10 - I10) [employer] Other 05-04-2023 Evaluation note* Encounter Date Diagnosis Assessment Notes Treatment Notes Treatment Clinical Notes October, Primary hypertension (ICD-10 - I10) [employer] Other 04-21-2023 Evaluation note* Encounter Date Diagnosis [...] and Glimepiride appear to be controlling BS. [employer] Other 04-13-2023 Evaluation note* Encounter Date Diagnosis Assessment Notes Treatment Notes Treatment Clinical Notes Sep, Type 2 diabetes mellitus with hyperglycemia (ICD-10 - E11.65) Sep, longterm (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 (ICD-10 - Z79.4) [employer] Other 04-11-2023 Evaluation note* Encounter Date Diagnosis Assessment Notes Treatment Notes Treatment Clinical Notes Sep, Type 2 diabetes mellitus with hyperglycemia, without long-term current use of insulin (ICD-10 - E11.65) [employer] Other 04-07-2023 Evaluation note* Encounter Date Diagnosis Assessment Notes Treatment Notes Treatment Clinical Notes Sep, Type 2 diabetes mellitus with hyperglycemia (ICD-10 - E11.65) [employer] Other 03-09-2023 Evaluation note* Encounter Date Diagnosis [...] Reviewed red flag symptoms and nerve impingement [employer] Other 02-28-2023 Evaluation note* Encounter Date Diagnosis Assessment Notes Treatment Notes Treatment Clinical Notes Jul, Type 2 diabetes mellitus with hyperglycemia, without long-term current use of insulin (ICD-10 - E11.65) [employer] Other 04-22-2022 Hospital Discharge instructions Patient Education [...] urethra. Follow these instructions at home: Take qhas-rdl-dwfytju and prescription medicines only as told by [...] 06/03/2006 Document Revised: 04/28/2019 Document Reviewed: 07/08/2017 [employer] Patient Education 2020 [employer]. Follow Up Care 10/03/2020 15:00:49 With:Hola GARCIA MD, URL Address: [facility] [address] , [place] [address]- [phone] When:10/06/2022 [facility] evaluation + Plan note Future Appointments Appointment Date:10/12/2022 08:00:00 AM Scheduled Provider:Hola GARCIA MD Location:[facility] Appointment Type:URO Office Visit Diagnostic Tests Pending * PSA Total 4/22/22 [facility] evaluation + Plan note Future Appointments Appointment Date:11/18/2023 08:45:00 AM Scheduled Provider:Hola GARCIA MD Location:[facility] Appointment Type:URO Office Visit Diagnostic Tests Pending * PSA Free & Total 11/09/22 [facility] evaluation noteNort [employer] Other Evaluation noteNo InformationNoUnidym Other Evaluation note* Diagnosis Onset Date Resolution Status Elevated cholesterol acute Gastroesophageal reflux dise ase with esophagitis without hemorrhage acute Obesity acute Primary hypertension acute Spondylosis without myelopat hy or radiculopathy, lumbar region acute Type 2 diabetes mellitus with hyperglycemia acute [facility] Work Phone: [facility] general Narrative - Reported* Type Description Date [...] CYSTOSCOPY 2016 Hospitalization History SEE SURGICAL HX [employer] Other [facility] N[facility] - [facility] [employer] Other [facility] general Narrative - Reported* Type Description Date [...] CYSTOSCOPY 2016 Hospitalization History SEE SURGICAL HX [employer] Other Hospital course Narrative No data available for this section [facility] progress note No data available for this section [facility] Summary Purpose Family History No Family History Records Found Relationship Condition Age at Onset Recorded Date/T marbella father Heart disease Unknown Hypertension Unknown Diabetes mellitus Unknown Unknown Not Specified Unknown Advance Directives No Advanced Directives Records Found Advance Directive Response Recorded Date/ Time Advance Directives No July 06, 2023 1:00pm Reason for Referral Reason *FU 05/16 Mr. Christianson er is being referred for chronic low back pain. Diagnosis 1 Medicare annual well ness visit, initial (Z00.00) Referral Organization [facility] linlibertad Referring Provider First Name Bogdan Referring Provider Last Name Peter Referring Provider Specialty Internal Me dicine Referred Organization [facility] Referred Provider Swapnil French Referred Address [address], [place],[address] Referred Provider Specialty Pain Medicin e Referral Priority Routine General Notes Mr. uQan has chron ic low back pain w/o [...] Notes Include XR lumbar sp ine f: [id number] Chief Complaint and Reason for Visit Chief Complaint Amb Documentation Amb Documentation Amb Documentation 3 month follow up (LM FOR PATIENT TO RESCHDULE) Reason for Visit Elevated cholesterol Gastroesophageal reflux disease with esophagitis without hemorrhage Obesity Primary hypertension Spondylosis without myelopathy or radiculopathy, lumbar region Type 2 diabetes mellitus with hyperglycemia Additional Source Comments (unrecognized sect ion and content) No Status Records FoundNo Status Records FoundNo Status Records FoundNo Status Records Found INFORMATION SOURCE (unrecogn ized section and content) DATE CREATED AUTHOR 07/30/2021 [facility] DATE CREATED AUTHOR AUTHOR'S ORGANIZ ATION 08/22/[address] [facility] DATE CREATED AUTHOR AUTHOR'S ORGANIZ ATION 08/23/2023 [facility] DATE CREATED AUTHOR AUTHOR'S ORGANIZ ATION 11/14/2023 [employer] [facility] REASON FOR VISIT (unrecogniz ed section and content) BS readingsElevated blood cifuentes [id number] [facility] ResultsBP readingsrefillelevated BPMedication4 MONTH FOLLOW UP Patient Care team informatio n (unrecognized section and content) Team Status: Active Member Role Status Dates Bogdan Green , Primary Care Provider Active Team Status: Active Member Role Status Dates Bogdan Green , Primary Care Provide r, Attending Provider Active Start: July 30, 2023 Team Status: Active Member Role Status Dates Bogdan Green , Primary Care Provider Active Start: August 16, 2023 [employer] Max Attending Provider Active Start : August 16, 2023 Team Status: Active Member Role Status Dates Bogdan Green , Primary Care Provider Active Start: August 23, 2023 [employer] Alvarez Attending Provider Active St art: August 23, 2023 Team Status: Active Member Role Status Dates Bogdan Green , Primary Care Provide r, Attending Provider Active Start: October 12, 2023 Team Status: Inactive Member Role Status Dates Bogdan Green , Primary Care Provide r, Attending Provider Active Start: October 18, 2023 End: October 18, 2023 Goals (unrecognized section and content) Goals may be documented in a n alternate section FOR RECORDS PERTAINING TO PATIENTS WHO ARE [...] BE BASED ON THE PRIMARY CLINICAL RECORDS. [facility] [facility]. provides no warranty or guarantee of the accuracy or completeness of information in this document.
[2024-02-11 08:01] LABS: Estimated Average Glucose 169 mg/dL; Glycohemoglobin A1C 7.5 % (4.5-6.2)
== END 2024-02-11 07:03 | disposition home or self-care (01) ==
LOC: LAB 07:02
PROVIDERS: PCP Internal Medicine; Visit Provider Internal Medicine
DX: Z79.4 Long term (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 (principal); E11.65 Type 2 diabetes mellitus with hyperglycemia
CPT/HCPCS: 36415; 83036

== ENCOUNTER 2024-02-26 09:49 | Outpatient (OUT) | payer MEDICARE, BC, SELFPAY ==
--- NOTE | 2024-02-26 09:53 | CA_ITS ---
Patient Name: FELIPE QUAN MR#: [id number] : 1955 Exam Date: 02/26/2024 Ordering Doctor: DR Bogdan Green D.O. ECHOCARDIOGRAM REPORT PROCEDURE: CA ECHO DOPPLER COMPLETE INDICATIONS: Dyspnea, Murmur, Primary HTN COMPARISON: None. DESCRIPTION: COMPLETE ECHOCARDIOGRAM Real-time transthoracic echocardiography with 2D, M-mode, spectral and color flow Doppler performed. QUALITY: Technical quality was good. LEFT VENTRICLE: Normal chamber size. Moderate left ventricular hypertrophy. LV EF: Global left ventricular systolic function is normal. Calculated left ventricular ejection fraction is 58%. No significant wall motion abnormalities. DIASTOLIC: Normal diastolic function. ATRIAL SEPTUM: Inadequately seen. LEFT ATRIUM: Moderate dilatation. RIGHT ATRIUM: Moderate dilatation. RIGHT VENTRICLE: Normal chamber size. Normal right ventricular systolic function. TRICUSPID VALVE: Normal mobility and thickness. No stenosis with trivial regurgitation. Mild pulmonary hypertension. RVSP 39mmHg MITRAL VALVE: Normal mobility and thickness. No evidence of mitral valve stenosis. There is no mitral annular calcification. Trivial mitral regurgitation. AORTIC VALVE: Normal trileaflet appearance. No visible sclerosis. Normal leaflet mobility. No evidence of aortic valve stenosis. No aortic regurgitation. AORTIC ROOT: Normal diameter and appearance. PULMONIC VALVE: Normal thickness and mobility. No stenosis. Trivial regurgitation. PERICARDIUM: No evidence of pericardial effusion. IVC: Collapses with inspirations. Mild dilatation. CONCLUSION: 1. Global left ventricular systolic function is normal; visually estimated ejection fraction is 55 to 60% 2. Normal right ventricular size and systolic function 3. Moderate left ventricular hypertrophy 4. Normal diastolic function 5. Moderate biatrial enlargement 6. Mildly elevated right ventricular systolic pressure; RVSP 39 mmHg 7. No significant valvular abnormalities Adult Echocardiography Procedure Report Left Ventricle LVEDD (3.7 - 5.6 cm): 4.63 cm LVESD (2.2 - 4.0 cm): 2.96 cm LVIVS thickness (0.6 - 1.2 cm): 1.40 cm LVPW thickness (0.5 - 1.0 cm): 1.38 cm e': 0.15 m/s E - e': 4.91 LVOT Max Gradient: 3.95 mm[Hg] LVOT Area (cm2): 0.99 m/s Peak Velocity (LVOT): 0.99 m/s Mean Velocity (LVOT): 0.64 m/s LVOT Diameter 2.22 cm Left Ventricular Ejection Fraction: 58.20 % Left Atrium LA Volume Index (2D A2C): 48.77 ml/m2 Left Atrium Systolic Dimension: 5.21 cm Mitral Valve MV E to A Ratio: 1.14, 1 Mitral Valve A-Wave Peak Velocity: 0.70 m/s Mitral Valve E-Wave Peak Velocity: 0.75 m/s Right Ventricle RV Internal Diastolic Dimension: 3.62 cm Aorta AO Root Diam: 3.74 cm Ascending Ao Diam: 3.33 cm Aortic Valve AoV Area (Peak Matthew): 3.18 cm2, 3.18 cm2 AoV Area (VTI): 3.01 cm2, 3.01 cm2 Peak Velocity(Antegrade Flow): 1.21 m/s Peak Gradient(Antegrade Flow): 5.82 mm[Hg] Mean Velocity(Antegrade Flow): 0.87 m/s Mean Gradient(Antegrade Flow): 3.49 mm[Hg] Velocity Time Integral: 26.23 cm Tricuspid Valve Peak Velocity (Regurgitant Flow): 2.62 m/s, 2.44 m/s, 2.78 m/s Pulmonic Valve Peak Velocity: 0.90 m/s Peak Gradient: 3.01 mm[Hg], 3.46 mm[Hg] Right Atrium Right Atrium Systolic Pressure: 47.59 ml, 47.59 ml Dictated by: Jori Ferraro M.D. on 02/27/2024 at 15:19 Approved by: Jori Ferraro M.D. on 02/27/2024 at 15:23
--- OUTSIDE RECORDS SUMMARY | 2024-02-26 10:10 | XMS_ITS | CCD ---
Author Organization [facility] Care Team Providers Care Grill Chef Name Role Phone BOGDAN GREEN Primary Care Physician [phone] PETER, DR MCFADDEN Primary Care Unavailable FRANCISCA [...] Andrius Vmarietta Attending Unavailable Klarissa MCMANUS, Andrius oTm Attending Unavailable Klarissa MCMANUS, Andrius Tom Attending Unavailable Klarissa MCMANUS, Dm Santos Attending Unavailable Hola GARCIA Attending Unavailable Allergies Allergy Classification Reported Allergen(s) Allergy Type Date of Onset Reaction(s) Facility (2 sources) patient allergy list reviewed by nurse or physicia Propensity to adverse reactions 6 Comment:Done Scour Prevention Other (1 source) No Known Medication Allergies; 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: [No Known Medication Allergies] Propensity to adverse reactions (disorder) [facility] Repository Medications Current Medications Medication Drug Class(es) Dates Sig (Normalized) Sig (Original) allopurinol 100 mg oral tablet (14 sources) Xanthine Oxidase Inhibitor Start: 07-27-2023 take [...] Status: Ordered amLODIPine 5 mg oral tablet (16 sources) Dihydropyridine Calcium Channel Andrew Start: 02-12-2024 take 1 tablet by mouth once daily Amlodipine Active 0 .ROUTE .COMPLEX February 12, 2024 7:38am TAKE 1 TABLET BY MOUTH EVERY DAY FOR 90 DAYS Start: 10-22-2022 End: 02-12-2024 take 1 tablet by mouth once daily Amlodipine Discontinued 1 TAB PO Daily July 27, 2023 1:00am February 12, 2024 7:38am FreeTextSi tablet Orally Once a day; Note: [...] Tablet; Provider: Peter Mcfadden ( ) benazepril (20 sources) Angiotensin Converting Enzyme Inhibitor Start: 02-12-2024 take 1 tablet by mouth once daily Benazepril Active 0 .ROUTE .COMPLEX February 12, 2024 7:38am TAKE 1 TABLET BY MOUTH EVERY DAY FOR 90 DAYS Start: 07-27-2023 End: 02-12-2024 take 1 tablet by mouth once daily Benazepril Discontinued 1 TAB PO Daily July 27, 2023 1:00am February 12, 2024 7:38am FreeTextSi tablet Orally Once a day; Note: [...] auto-injector (20 sources) GLP-1 Receptor Agonist Start: 12-03-2023 Dulaglutide (Trulicity) 1.5 mg/0.5 mL pen injector Active 1.5 MG SUBCUT every week 08 14December 03, 2023 11:24am Start: 10-28-2023 End: 12-03-2023 Dulaglutide (Trulicity) 0.75 mg/0.5 mL pen injector Discontinued 1.5 MG SUBCUT every week 13 October 28, 2023 5:39pm December 03, 2023 11:24am Start: 07-27-2023 End: 10-28-2023 Dulaglutide (Trulicity) 0.75 mg/0.5 mL pen injector Discontinued 0.75 MG SUBCUT every week July 30, 2023 12:46pm September 02, 2023 5:01pm Start: 07-08-2023 inject 1.5 mg by sub [...] 28 Active finasteride 5 mg oral tablet (14 sources) 5-alpha Reductase Inhibitor Start: 07-27-2023 take [...] day(s), # 90 tab(s), Refills(s) 3, Pharmacy: [facility]/pharmacy #[id number], 195, cm, 11/09/22 11:00:00 EDT, Height/Length Dosing, 111, kg, 11/09/22 11:00:00 EDT, Weight Dosing Start Date: 11/09/22 Stop Date: 11/04/23 Status: Ordered Start: 10-06-2021 take 1 tablet by osbaldo th once daily finasteride 5 mg Tab 5 mg = 1 tab(s), Oral, Daily, # 90 tab(s), Refills(s) 3, Pharmacy: [facility]/pharmacy #[id number], 195, cm, 10/06/21 8:16:00 EDT, Height/Length Dosing, 109.5, kg, 10/06/21 8:16:00 EDT, Weight Dosing Start Date: 10/06/21 Status: Ordered glimepiride 4 mg oral tablet (20 sources) Sulfonylurea Start: 12-22-2023 take 2 tablets by mouth once daily at mealtime Glimepiride Active 0 .ROUTE .COMPLEX 60 December 22, 2023 2:14pm TAKE 2 TABLETS BY MOUTH ONCE DAILY 30 MINUTES PRIOR TO FIRST MEAL OF THE DAY Start: 07-27-2023 End: 12-22-2023 take 4 mg by mouth once daily Glimepiride Discontinued 4 MG PO Daily October 29, 2023 1:09pm December 22, 2023 2:14pm Start: 07-27-2023 take 2 tablets by mo uth once daily Glimepiride Active 2 TAB PO [...] Start Date: 11/09/22 Status: Ordered Start: 09-25-2022 End: 02-18-2024 inject 10 [IU] by subcutaneous injection once at bedtime Insulin Glargine (Basaglar Kwikpen U-100 Insulin) 100 unit/mL (3 mL) insulin pen Discontinued UNIT SUBCUT July 27, 2023 1:00am February 18, 2024 9:43am FreeTextSi units Subcutaneous q HS; Note: Source Status: Not-Taking\PRN; Refills: 5; Qty: 1 Each; Provider: Peter Hagan Start: 09-25-2022 Lantus SoloSta r 100 UNIT/ML 25 units Subcutaneous q HS Sep, Active Start: 09-25-2022 latanoprost 0.05 mg/ml ophthalmic solution (1 source) Prostaglandin Analog Start: 02-18-2024 take 1 drop(s) into the eye(s) once daily Latanoprost Active 1 DROPS EYE-BOTH Daily February 18, 2024 12:00am metFORMIN hydrochloride 1000 mg oral tablet (20 [...] (Prilosec Otc) 20 mg tablet,delayed release (DR/EC) (2 sources) Start: 07-27-2023 take 1 tablet by mouth [...] bid for 5 days Apr, Active Pen Hoolehua 5/16 (15 sources) Start: 09-27-2022 Start: 09-27-2022 Pen Hoolehua 5/ 16 Use to inject insulin qd SC daily for 30 days Sep, Active tamsulosin hydrochloride 0.4 mg oral capsule (14 sources) alpha-Adrenergic Andrew Start: 10-06-2021 End: 10-27-2023 [...] acid 4700 mg / polyethylene glycol 3350 [id number] mg / potassium chloride 1015 mg / [...] 10 day(s) Nov, Not-Taking/PRN Blood Sugar Diagnostic (2 sources) Start: 08-16-2023 End: 08-16-2023 Blood Sugar Diagnostic [...] 05-09-2015 Chronic Other aftercare (1 source) 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..] musculoskeletal system and connective tissue] Episodic Other lower respiratory disease (1 source) Dyspnea; 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: [Dyspnea, unspecified] 02-18-2024 Episodic Other nutritional; endocrine; and metabolic disorders [...] nutritional; endocrine; and metabolic disorders (4 sources) Obesity; 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: [Obesity, unspecified] Onset: 12-15-2013 [...] ume] in Blood Estimated from glycated hemoglobinon 02-11-2024 Average glucose Estimated from glycated hemoglobin (Bld) [Mass/Vol] 169 mg/dL [facility] - Hematology and Cell countson 02-11-2024 HbA1c (Bld) [Mass fraction] 7.5 % High 4.5-6.2 [facility] Comment on above: ADA RECOMMENDED LIMI T 4.0 - 6.0ADA THERAPEUTIC TARGET < 7.0ACTION SUGGESTED> 7.0 Glucose mean value [Mass/vol ume] in Blood Estimated from glycated hemoglobinon 10-12-2023 Average glucose Estimated from glycated hemoglobin (Bld) [Mass/Vol] 180 mg/dL [facility] - Hematology and Cell countson 10-12-2023 HbA1c (Bld) [Mass fraction] 7.9 % 4.5-6.2 [facility] Comment on above: ADA RECOMMENDED LIMI T 4.0 - 6.0ADA THERAPEUTIC TARGET < 7.0ACTION SUGGESTED> 7.0 GLYCOHEMOGLOBIN A1Con 2022 ADA RECOMMENDATION SEE BELOW Normal [facility] Comment on above: Result Comment: ADA RECOMMENDED LIMIT 4.0 - 6.0 ADA THERAPEUTIC TARGET < 7.0 ACTION SUGGESTED > 7.0 Performed By: #### B MP, LIPID, ALT, URIC #### [facility] [address] [place] [address] Dr. Jorge L Carey Glucose [Mass/Vol] 148 mg/dL Normal [facility] Comment on above: Performed By: #### B MP, LIPID, ALT, URIC #### [facility] [address] [address] [address] Jorge L Carey HbA1c (Bld) [Mass fraction] 6.8 % Critically high 4.5-6.2 [facility] Comment on above: Performed By: #### B MP, LIPID, ALT, URIC #### [facility] [address] [address] [address] Jorge L Carey CARDIAC DANAY ADMITon 023 CK [Catalytic activity/Vol] 59 U/L Normal 39-308 [facility] Comment on above: Performed By: #### C MP, CMADM #### [facility] [address] [address] [address] Jorge L Carey CK.MB [Mass/Vol] 0.99 ng/mL Normal <=3.[address] [facility] Comment on above: Performed By: #### C MP, CMADM #### [facility] [address] [place] [address] Dr. Jorge L Carey HSTROP 10.0 pg/mL Normal 4.0-76.1 [facility] Comment on above: Result Comment: CUT- OFF POINTS HAVE BEEN ESTABLISHED BASED ON THE FOURTH UNIVERSAL DEFINITIONS OF MYOCARDIAL INFARCTION. THE UPPER REFERENCE LIMIT (URL) OF TROPONIN, DEFINED THE 99TH PERCENTILE OF cTnI DISTRIBUTION IN A REFERENCE POPULATION, HAS BEEN CONFIRMED THE DECISION THRESHOLD FOR SD DIAGNOSIS. Performed By: #### C MP, CMADM #### [facility] [address] [place] [address] Dr. Jorge L Carey GARLAND 52 ng/mL Normal 16-96 [facility] Comment on above: Performed By: #### C MP, CMADM #### [facility] [address] [place] [address] Dr. Jorge L Carey CBC AUTO DIFFon 07-01-2022 BASO # 0.0 103/ul Normal 0.0-0.1 [facility] Comment on above: Performed By: #### B MP, LIPID, ALT, URIC #### [facility] [address] [place] [address] Dr. Jorge L Carey Basophils/100 WBC (Bld) 0.3 % Normal 0.2-2.0 [facility] Comment on above: Performed By: #### B MP, LIPID, ALT, URIC #### [facility] [address] [place] [address] Dr. Jorge L Carey EO # 0.1 103/ul Normal 0.0-0.7 [facility] Comment on above: Performed By: #### B MP, LIPID, ALT, URIC #### [facility] [address] [place] [address] Dr. Jorge L Carey Eosinophils/100 WBC (Bld) 0.9 % Normal 0.9-7.0 [facility] Comment on above: Performed By: #### B MP, LIPID, ALT, URIC #### [facility] [address] [place] [address] Dr. Jorge L Carey Erythrocyte distribution width (RBC) [Ratio] 11.7 % Normal 11.0-15.0 [facility] Comment on above: Performed By: #### B MP, LIPID, ALT, URIC #### [facility] [address] [place] [address] Dr. Jorge L Carey Hematocrit (Bld) [Volume fraction] 41.1 % Critically low 42.0-54.0 [facility] Comment on above: Performed By: #### B MP, LIPID, ALT, URIC #### [facility] [address] [address] [address] Jorge L Carey Hemoglobin (Bld) [Mass/Vol] 14.5 g/dL Normal 14.0-18.0 [facility] Comment on above: Performed By: #### B MP, LIPID, ALT, URIC #### [facility] [address] [place] [address] Dr. Jorge L Carey IG # 0.02 10e3/ul Normal 0.00-0.03 [facility] Comment on above: Performed By: #### B MP, LIPID, ALT, URIC #### [facility] [address] [place] [address] Dr. Jorge L Carey IG % 0.3 % Normal 0.0-0.5 [facility] Comment on above: Performed By: #### B MP, LIPID, ALT, URIC #### [facility] [address] [place] [address] Dr. Jorge L Carey LYMPH # 1.1 103/ul Critically low 1.2-3.8 [facility] Comment on above: Performed By: #### B MP, LIPID, ALT, URIC #### [facility] [address] [place] [address] Dr. Jorge L Carey Lymphocytes/100 WBC (Bld) 16.6 % Critically low 20.5-60.0 [facility] Comment on above: Performed By: #### B MP, LIPID, ALT, URIC #### [facility] [address] [place] [address] Dr. Jorge L Carey MANUAL DIFF REQ NO Normal [facility] Comment on above: Performed By: #### B MP, LIPID, ALT, URIC #### [facility] [address] [place] [address] Dr. Jorge L Carey MCH (RBC) [Entitic mass] 30.1 pg Normal 25.9-34.0 [facility] Comment on above: Performed By: #### B MP, LIPID, ALT, URIC #### [facility] [address] [place] [address] Dr. Jorge L Carey MCHC (RBC) [Mass/Vol] 35.3 g/dL Critically high 29.9-35.2 [facility] Comment on above: Performed By: #### B MP, LIPID, ALT, URIC #### [facility] [address] [place] [address] Dr. Jorge L Carey MCV (RBC) [Entitic vol] 85.4 fL Normal 80.0-94.0 [facility] Comment on above: Performed By: #### B MP, LIPID, ALT, URIC #### [facility] [address] [place] [address] Dr. Jorge L Carey MONO # 0.4 103/ul Normal 0.3-0.8 [facility] Comment on above: Performed By: #### B MP, LIPID, ALT, URIC #### [facility] [address] [place] [address] Dr. Jorge L Carey Monocytes/100 WBC (Bld) 5.1 % Normal 1.7-12.0 [facility] Comment on above: Performed By: #### B MP, LIPID, ALT, URIC #### [facility] [address] [place] [address] Dr. Jorge L Carey NEUT # 5.3 103/ul Normal 1.4-6.5 [facility] Comment on above: Performed By: #### B MP, LIPID, ALT, URIC #### [facility] [address] [place] [address] Dr. Jorge L Carey Neutrophils/100 WBC (Bld) 76.8 % Critically high 43.0-75.0 [facility] Comment on above: Performed By: #### B MP, LIPID, ALT, URIC #### [facility] [address] [place] [address] Dr. Jorge L Carey Platelet mean volume (Bld) [Entitic vol] 12.1 fL Normal 9.5-13.5 [facility] Comment on above: Performed By: #### B MP, LIPID, ALT, URIC #### [facility] [address] [place] [address] Dr. Jorge L Carey PLT 147 103/ul Critically low 150-450 [facility] Comment on above: Performed By: #### B MP, LIPID, ALT, URIC #### [facility] [address], [place] [address] Dr. Jorge L Carey RBC 4.81 106/ul Normal 4.70-6.10 [facility] Comment on above: Performed By: #### B MP, LIPID, ALT, URIC #### [facility] [address], [place] [address] Dr. Jorge L Carey WBC 6.9 103/ul Normal 4.0-11.0 [facility] Comment on above: Performed By: #### B MP, LIPID, ALT, URIC #### [facility] [address] [place], [place] [address] [address] HEAD WO [...] Date: 2022-07-01 20:24 Normal [facility] Covid-19 PCR (CVDTB)on 06-17 SARS-CoV-2 (COVID-19) RNA EDVIN+probe Ql (Unsp spec) Not detected Normal NOT DETECTED [facility] Comment on above: Result Comment: When [...] for this test is supported by the Permit Agent of Health and Human Service's declaration that [...] By: #### C VDTBH #### [facility] [address] [place] [address] Dr. Jorge L Carey D-DIMERon 07-01-2022 D-DIMER 0.21 mg/L FEU Normal <=0.59 [facility] Comment on above: Performed By: #### B MP, LIPID, ALT, URIC #### [facility] [address] [place] [address] Dr. Jorge L Carey D-DIMER COMMENTS SEE BELOW Normal [facility] Comment on above: Result Comment: [...] MP, LIPID, ALT, URIC #### [facility] [address] [place] [address] Dr. Jorge L Carey ER URINE PROFILEon 3 Bilirubin Ql (U) Negative Normal NEGATIVE [facility] Comment on above: Performed By: #### B MP, LIPID, ALT, URIC #### [facility] [address] [place] [address] Dr. Jorge L Carey Clarity (U) CLEAR Normal CLEAR [facility] Comment on above: Performed By: #### B MP, LIPID, ALT, URIC #### [facility] [address] [address] [address] Jorge L Carey Color (U) LT. YELLOW Normal YELLOW [facility] Comment on above: Performed By: #### B MP, LIPID, ALT, URIC #### [facility] [address] [address] [address] Jorge L Carey ERUAHD A micrscopic examination will be performed if indicated. Normal [facility] Comment on above: Performed By: #### B MP, LIPID, ALT, URIC #### [facility] [address] [address] [address] Jorge L Carey Glucose Ql (U) Negative Normal NEGATIVE [facility] Comment on above: Performed By: #### B MP, LIPID, ALT, URIC #### [facility] [address] [address] [address] Jorge L Carey Hemoglobin Ql (U) Negative Normal NEGATIVE [facility] Comment on above: Performed By: #### B MP, LIPID, ALT, URIC #### [facility] [address] [address] [address] Jorge L Carey Ketones Ql (U) Negative Normal NEGATIVE [facility] Comment on above: Performed By: #### B MP, LIPID, ALT, URIC #### [facility] [address] [address] [address] Jorge L Carey LEUKOCYTES Negative Normal NEGATIVE [facility] Comment on above: Performed By: #### B MP, LIPID, ALT, URIC #### [facility] [address] [address] [address] Jorge L Carey Nitrite Ql (U) Negative Normal NEGATIVE [facility] Comment on above: Performed By: #### B MP, LIPID, ALT, URIC #### [facility] [address] [address] [address] Jorge L Carey pH (U) 6.0 [pH] Normal 5-9 [facility] Comment on above: Performed By: #### B MP, LIPID, ALT, URIC #### [facility] [address] [place] [address] Dr. Jorge L Carey SPEC GRAVITY 1.020 Normal 1.005-<=1.025 [facility] Comment on above: Performed By: #### B MP, LIPID, ALT, URIC #### [facility] [address] [place] [address] Dr. Jorge L Carey UA PROTEIN Negative Normal NEGATIVE/ TRACE [facility] Comment on above: Performed By: #### B MP, LIPID, ALT, URIC #### [facility] [address] [place] [address] Dr. Jorge L Carey UR MICRO IND NOT INDICATED Normal [facility] Comment on above: Performed By: #### B MP, LIPID, ALT, URIC #### [facility] [address] [place] [address] Dr. Jorge L Carey Urobilinogen Qn (U) 1.0 {Ila'U}/dL Normal 0.2 - 1. 0 [facility] Comment on above: Performed By: #### B MP, LIPID, ALT, URIC #### [facility] [address] [place] [address] Dr. Jorge L Carey INFLUENZA A AND B AGon 07-01 [facility] SEE BELOW Normal [facility] Comment on above: Result Comment: Nega tive for Flu A protein angiten. Infection due to Flu A cannot be ruled out. Flu A angiten in the sample may be below the detection limit of the test. Performed By: #### I NFLUAB #### [facility] [address] [place] [address] Dr. Jorge L Carey INFLUBNEGH SEE BELOW Normal [facility] Comment on above: Result Comment: Nega tive for Flu B protein antigen. Infection due to Flu B cannot be ruled out. Flu B antigen in the sample may be below the detection limit of the test. Performed By: #### I NFLUAB #### [facility] [address] [place] [address] Dr. Jorge L Carey INFLUENZA A AG Negative Normal NEGATIVE SEE COMMENT [facility] Comment on above: Performed By: #### I NFLUAB #### [facility] [address] [address] [address] oJrge L Carey INFLUENZA B AG Negative Normal NEGATIVE SEE COMMENT [facility] Comment on above: Performed By: #### I NFLUAB #### [facility] [address] [address] [address] Jorge L Carey POINT OF CARE GLUCOSEon 06-17 Glucose [Mass/Vol] 130 mg/dL Critically high 74-106 [facility] Comment on above: Performed By: #### B MP, LIPID, ALT, URIC #### [facility] [address] [address] [address] Jorge L Carey PROF 14(COMP METB)on 023 Albumin [Mass/Vol] 3.7 g/dL Normal 3.4-5.0 [facility] Comment on above: Performed By: #### C IGGY, CMADM #### [facility] [address] [place] [address] Dr. Jorge L Carey Albumin/Globulin [Mass ratio] 1.2 {ratio} Normal [facility] Comment on above: Performed By: #### C IGGY, CMADM #### [facility] [address] [place] [address] Dr. Jorge L Carey ALP [Catalytic activity/Vol] 49 U/L Normal 46-116 [facility] Comment on above: Performed By: #### C IGGY, CMADM #### [facility] [address] [address] [address] Jorge L Carey ALT [Catalytic activity/Vol] 30 U/L Normal 16-63 [facility] Comment on above: Performed By: #### C MP, CMADM #### [facility] [address] [place] [address] Dr. Jorge L Carey Anion gap [Moles/Vol] 12.7 mmol/L Normal [facility] Comment on above: Performed By: #### C MP, CMADM #### [facility] [address] [place] [address] Dr. Jorge L Carey AST [Catalytic activity/Vol] 21 U/L Normal 15-37 [facility] Comment on above: Performed By: #### C IGGY, CMADM #### [facility] [address] [place] [address] Dr. Jorge L Carey Bilirubin [Mass/Vol] 0.5 mg/dL Normal 0.2-1.0 [facility] Comment on above: Performed By: #### C IGGY, CMADM #### [facility] [address] [place] [address] Dr. Jorge L Carey Calcium [Mass/Vol] 8.9 mg/dL Normal 8.5-10.1 [facility] Comment on above: Performed By: #### C IGGY, CMADM #### [facility] [address] [place] [address] Dr. Jorge L Carey Chloride [Moles/Vol] 100 mmol/L Normal 98-107 [facility] Comment on above: Performed By: #### C IGGY, CMADM #### [facility] [address] [place] [address] Dr. Jorge L Carey CO2 [Moles/Vol] 29.0 mmol/L Normal 21.0-32.[address] [facility] Comment on above: Performed By: #### C IGGY, CMADM #### [facility] [address] [place] [address] Dr. Jorge L Carey Creatinine [Mass/Vol] 1.04 mg/dL Normal 0.70-1.30 [facility] Comment on above: Performed By: #### C IGGY, CMADM #### [facility] [address] [place] [address] Dr. Jorge L Carey EGFR-AF [place]IZ[place] >60 Normal >=[address] [facility] Comment on above: Performed By: #### C IGGY, CMADM #### [facility] [address] [place] [address] Dr. Jorge L Carey EGFR-NON AF [place]IZ[place] >60 Normal >=60 [facility] Comment on above: Performed By: #### C IGGY, CMADM #### [facility] [address] [place] [address] Dr. Jorge L Carey Globulin (S) [Mass/Vol] 3.1 g/dL Normal [facility] Comment on above: Performed By: #### C IGGY, RAMYDM #### [facility] [address] [place] [address] Dr. Jorge L Carey Glucose [Mass/Vol] 140 mg/dL Critically high 74-106 T [facility] Comment on above: Performed By: #### C IGGY, CMADM #### [facility] [address] [place] [address] Dr. Jorge L Carey Potassium [Moles/Vol] 3.7 mmol/L Normal 3.5-5.1 [facility] Comment on above: Performed By: #### C IGGY, RAMYDM #### [facility] [address] [place] [address] Dr. Jorge L Carey Protein [Mass/Vol] 6.8 g/dL Normal 6.4-8.2 The [facility] Comment on above: Performed By: #### C RAMY PARKINSONDM #### [facility] [address] [place] [address] Dr. Jorge L Carey Sodium [Moles/Vol] 138 mmol/L Normal 136-145 [facility] Comment on above: Performed By: #### C IGGY, RAMYDM #### [facility] [address] [place] [address] Dr. Jorge L Carey Urea nitrogen [Mass/Vol] 13.0 mg/dL Normal 7.0-18.0 [facility] Comment on above: Performed By: #### C IGGY, RAMYDM #### [facility] [address] [place] [address] Dr. Jorge L Carey Urea nitrogen/Creatinine [Mass ratio] 12.5 mg/mg Normal [facility] Comment on above: Performed By: #### C IGGY, CMADM #### [facility] [address] [place] [address] Dr. Jorge L Carey TROPONIN, HIGH SENSITIVITYon 07-01-2022 HSTROP 10.9 pg/mL Normal 4.0-76.1 [facility] Comment on above: Result Comment: CUT- OFF POINTS HAVE BEEN ESTABLISHED BASED ON THE FOURTH UNIVERSAL DEFINITIONS OF MYOCARDIAL INFARCTION. THE UPPER REFERENCE LIMIT (URL) OF TROPONIN, DEFINED THE 99TH PERCENTILE OF cTnI DISTRIBUTION IN A REFERENCE POPULATION, HAS BEEN CONFIRMED THE DECISION THRESHOLD FOR SD DIAGNOSIS. Performed By: #### B MP, LIPID, ALT, URIC #### [facility] [address] [place] [address] Dr. Jorge L Carey XR CHEST 1 [...] Date: 2022-07-01 19:57 Normal [facility] CBC AUTO DIFFon 04-18-2022 BASO # 0.0 103/ul Normal 0.0-0.1 [facility] Comment on above: Performed By: #### C BC #### [facility] [address] [place] [address] Dr. Jorge L Carey Basophils/100 WBC (Bld) 0.7 % Normal 0.2-2.0 [facility] Comment on above: Performed By: #### C BC #### [facility] [address] [place] [address] Dr. Jorge L Carey EO # 0.2 103/ul Normal 0.0-0.7 [facility] Comment on above: Performed By: #### C BC #### [facility] [address] [place] [address] Dr. Jorge L Carey Eosinophils/100 WBC (Bld) 2.6 % Normal 0.9-7.0 [facility] Comment on above: Performed By: #### C BC #### [facility] [address] [place] [address] Dr. Jorge L Carey Erythrocyte distribution width (RBC) [Ratio] 11.5 % Normal 11.0-15.0 [facility] Comment on above: Performed By: #### C BC #### [facility] [address] [place] [address] Dr. Jorge L Carey Hematocrit (Bld) [Volume fraction] 44.7 % Normal 42.0-54.0 [facility] Comment on above: Performed By: #### C BC #### [facility] [address] [place] [address] Dr. Jorge L Carey Hemoglobin (Bld) [Mass/Vol] 15.5 g/dL Normal 14.0-18.0 [facility] Comment on above: Performed By: #### C BC #### [facility] [address] [place] [address] Dr. Jorge L Carey IG # 0.01 10e3/ul Normal 0.00-0.03 [facility] Comment on above: Performed By: #### C BC #### [facility] [address] [place] [address] Dr. Jorge L Carey IG % 0.2 % Normal 0.0-0.5 [facility] Comment on above: Performed By: #### C BC #### [facility] [address] [place] [address] Dr. Jorge L Carey LYMPH # 1.3 103/ul Normal 1.2-3.8 [facility] Comment on above: Performed By: #### C BC #### [facility] [address] [place] [address] Dr. Jorge L Carey Lymphocytes/100 WBC (Bld) 21.3 % Normal 20.5-60.0 [facility] Comment on above: Performed By: #### C BC #### [facility] [address] [place] [address] Dr. Jorge L Carey MANUAL DIFF REQ NO Normal [facility] Comment on above: Performed By: #### C BC #### [facility] [address] [place] [address] Dr. Jorge L Carey MCH (RBC) [Entitic mass] 30.1 pg Normal 25.9-34.0 [facility] Comment on above: Performed By: #### C BC #### [facility] [address] [place] [address] Dr. Jorge L Carey MCHC (RBC) [Mass/Vol] 34.7 g/dL Normal 29.9-35.2 [facility] Comment on above: Performed By: #### C BC #### [facility] [address] [address] [address] Jorge L Carey MCV (RBC) [Entitic vol] 86.8 fL Normal 80.0-94.0 [facility] Comment on above: Performed By: #### C BC #### [facility] [address] [address] [address] Jorge L Carey MONO # 0.4 103/ul Normal 0.3-0.8 [facility] Comment on above: Performed By: #### C BC #### [facility] [address] [place] [address] Dr. Jorge L Carey Monocytes/100 WBC (Bld) 7.2 % Normal 1.7-12.0 [facility] Comment on above: Performed By: #### C BC #### [facility] [address] [place] [address] Dr. Jorge L Carey NEUT # 4.1 103/ul Normal 1.4-6.5 [facility] Comment on above: Performed By: #### C BC #### [facility] [address] [place] [address] Dr. Jorge L Carey Neutrophils/100 WBC (Bld) 68.0 % Normal 43.0-75.0 [facility] Comment on above: Performed By: #### C BC #### [facility] [address] [place] [address] Dr. Jorge L Carey Platelet mean volume (Bld) [Entitic vol] 12.0 fL Normal 9.5-13.5 [facility] Comment on above: Performed By: #### C BC #### [facility] [address] [place] [address] Dr. Jorge L Carey PLT 163 103/ul Normal 150-450 [facility] Comment on above: Performed By: #### C BC #### [facility] [address] [place] [address] Dr. Jorge L Carey RBC 5.15 106/ul Normal 4.70-6.10 [facility] Comment on above: Performed By: #### C BC #### [facility] [address] [address] [address] Jorge L Carey WBC 6.1 103/ul Normal 4.0-11.0 [facility] Comment on above: Performed By: #### C BC #### [facility] [address] [address] [address] Jorge L Carey GLYCOHEMOGLOBIN A1Con 2021 ADA RECOMMENDATION SEE BELOW Normal [facility] Comment on above: Result Comment: ADA RECOMMENDED LIMIT 4.0 - 6.0 ADA THERAPEUTIC TARGET < 7.0 ACTION SUGGESTED > 7.0 Performed By: #### B MP, LIPID, ALT, URIC #### [facility] [address] [address] [address] Jorge L Carey Glucose [Mass/Vol] 146 mg/dL Normal [facility] Comment on above: Performed By: #### B MP, LIPID, ALT, URIC #### [facility] [address] [address] [address] Jorge L Carey HbA1c (Bld) [Mass fraction] 6.7 % Critically high 4.5-6.2 [facility] Comment on above: Performed By: #### B MP, LIPID, ALT, URIC #### [facility] [address] [address] [address] Jorge L Carey LIPID PROFILEon 04-18-2022 CHOL-HDL RATIO NORM SEE BELOW Normal [facility] Comment on above: Result Comment: 3.3 - 4.4 LOW RISK 4.4 - 7.1 AVERAGE RISK 7.1 - 11.0 MODERATE RISK >11.0 HIGH RISK Performed By: #### B MP, LIPID, ALT, URIC #### [facility] [address] [address] [address] Jorge L Carey Cholesterol [Mass/Vol] 117 mg/dL Normal <=200 [facility] Comment on above: Performed By: #### B MP, LIPID, ALT, URIC #### [facility] [address] [address] [address] Jorge L Carey Cholesterol in HDL [Mass/Vol] 48 mg/dL Normal 40-60 [facility] Comment on above: Performed By: #### B MP, LIPID, ALT, URIC #### [facility] [address] [address] [address] Jorge L Carey Cholesterol in LDL [Mass/Vol] 50.6 mg/dL Normal [facility] Comment on above: Performed By: #### B MP, LIPID, ALT, URIC #### [facility] [address] [address] [address] Jorge L Carey Cholesterol.total/Cho lesterol in HDL [Mass ratio] 2.4 {ratio} Normal [facility] Comment on above: Performed By: #### B MP, LIPID, ALT, URIC #### [facility] [address] [address] [address] Jorge L Carey HDL NORMAL > or = 60 mg/dl - LOW CARDIOVASCULAR RISK <40 mg/dl - HIGH CARDIOVASCULAR RISK Normal [facility] Comment on above: Performed By: #### B MP, LIPID, ALT, URIC #### [facility] [address] [address] [address] Jorge L Carey LDL CALC NORMAL SEE BELOW Normal [facility] Comment on above: Result Comment: <100 mg/dl OPTIMAL 100 - 129 mg/dl NEAR OR ABOVE OPTIMAL 130 - 159 mg/dl BORDERLINE HIGH 160 - 189 mg/dl HIGH >190 mg/dl VERY HIGH Performed By: #### B MP, LIPID, ALT, URIC #### [facility] [address] [address] [address] Jorge L Carey Triglyceride [Mass/Vol] 92 mg/dL Normal <=150 [facility] Comment on above: Performed By: #### B MP, LIPID, ALT, URIC #### [facility] [address] [address] [address] Jorge L Carey VLDL CALC 18.4 mg/dL Normal [facility] Comment on above: Performed By: #### B MP, LIPID, ALT, URIC #### [facility] [address] [address] [address] Jorge L Carey MICROALBUMIN, RAND URon 11-0 mALB <1.3 Normal <=30.0 [facility] Comment on above: Performed By: #### M ALBR #### [facility] [address] [address] [address] Jorge L Carey PROF CHEM 8 (BAS METB)on Anion gap [Moles/Vol] 9.5 mmol/L Normal [facility] Comment on above: Performed By: #### B MP, LIPID, ALT, URIC #### [facility] [address] [place] [address] Dr. Jorge L Carey Calcium [Mass/Vol] 8.6 mg/dL Normal 8.5-10.1 [facility] Comment on above: Performed By: #### B MP, LIPID, ALT, URIC #### [facility] [address] [place] [address] Dr. Jorge L Carey Chloride [Moles/Vol] 102 mmol/L Normal 98-107 [facility] Comment on above: Performed By: #### B MP, LIPID, ALT, URIC #### [facility] [address] [place] [address] Dr. Jorge L Carey CO2 [Moles/Vol] 30.8 mmol/L Normal 21.0-32.[address] [facility] Comment on above: Performed By: #### B MP, LIPID, ALT, URIC #### [facility] [address] [place] [address] Dr. Jorge L Carey Creatinine [Mass/Vol] 0.95 mg/dL Normal 0.70-1.30 [facility] Comment on above: Performed By: #### B MP, LIPID, ALT, URIC #### [facility] [address] [place] [address] Dr. Jorge L Carey EGFR-AF [place] CITIZ[place] >60 Normal >=[address] [facility] Comment on above: Performed By: #### B MP, LIPID, ALT, URIC #### [facility] [address] [place] [address] Dr. Jorge L Carey EGFR-NON AF [place] CITIZ[place] >60 Normal >=60 [facility] Comment on above: Performed By: #### B MP, LIPID, ALT, URIC #### [facility] [address] [address] [address] Jorge L Carey Glucose [Mass/Vol] 142 mg/dL Critically high 74-106 [facility] Comment on above: Performed By: #### B MP, LIPID, ALT, URIC #### [facility] [address] [place] [address] Dr. Jorge L Carey Potassium [Moles/Vol] 4.3 mmol/L Normal 3.5-5.1 [facility] Comment on above: Performed By: #### B MP, LIPID, ALT, URIC #### [facility] [address] [place] [address] Dr. Jorge L Carey Sodium [Moles/Vol] 138 mmol/L Normal 136-145 [facility] Comment on above: Performed By: #### B MP, LIPID, ALT, URIC #### [facility] [address] [place] [address] Dr. Jorge L Carey Urea nitrogen [Mass/Vol] 14.0 mg/dL Normal 7.0-18.0 [facility] Comment on above: Performed By: #### B MP, LIPID, ALT, URIC #### [facility] [address] [place] [address] Dr. Jorge L Carey Urea nitrogen/Creatinine [Mass ratio] 14.7 mg/mg Normal [facility] Comment on above: Performed By: #### B MP, LIPID, ALT, URIC #### [facility] [address] [place] [address] Dr. Jorge L Carey SGPTon 04-18-2022 ALT [Catalytic activity/Vol] 27 U/L Normal 16-63 [facility] Comment on above: Performed By: #### B MP, LIPID, ALT, URIC #### [facility] [address] [place] [address] Dr. Jorge L Carey URIC ACID SERUMon 04-18-2022 Urate [Mass/Vol] 5.5 mg/dL Normal 3.5-7.2 [facility] Comment on above: Performed By: #### B MP, LIPID, ALT, URIC #### [facility] [address] [place] [address] Dr. Jorge L Carey GLYCOHEMOGLOBIN A1Con 08-06- 2022 ADA RECOMMENDATION SEE BELOW Normal [facility] Comment on above: Result Comment: ADA RECOMMENDED LIMIT 4.0 - 6.0 ADA THERAPEUTIC TARGET < 7.0 ACTION SUGGESTED > 7.0 Performed By: #### B MP, LIPID, ALT, URIC #### [facility] [address] [address] [address] Jorge L Carey Glucose [Mass/Vol] 160 mg/dL Normal [facility] Comment on above: Performed By: #### B MP, LIPID, ALT, URIC #### [facility] [address] [address] [address] Jorge L Carey HbA1c (Bld) [Mass fraction] 7.2 % Critically high 4.5-6.2 [facility] Comment on above: Performed By: #### B MP, LIPID, ALT, URIC #### [facility] [address] [place] [address] Dr. Jorge L Carey GLYCOHEMOGLOBIN A1Con 2021 ADA RECOMMENDATION ADA THERAPEUTIC TARGET 6.0 - 7.0 ACTION SUGGESTED > 7.0 Normal [facility] Comment on above: Performed By: #### B MP, LIPID, ALT, URIC #### [facility] [address] [address] [address] Jorge L Carey Glucose [Mass/Vol] 177 mg/dL Normal [facility] Comment on above: Performed By: #### B MP, LIPID, ALT, URIC #### [facility] [address] [address] [address] Jorge L Carey HbA1c (Bld) [Mass fraction] 7.8 % Critically high <=6.0 [facility] Comment on above: Performed By: #### B MP, LIPID, ALT, URIC #### [facility] [address] [place] [address] Dr. Jorge L Carey [facility] [employer] 09-17-2020 Glucose [Mass/Vol] 151 mg/dL Normal [facility] Comment on above: Result Comment: PERF ORMED BY: [address] [place] [address] PATHOLOGIST [employer] SUSAN SEXTON M.D. Performed By: #### O UTREACH GLYCO #### [facility] [address] [place] [address] [facility] HbA1c (Bld) [Mass fraction] 6.9 % High 4.3-5.6 [facility] Comment on above: Result Comment: Incr eased risk for diabetes: 5.7 - 6.4 diabetes: >6.4 glycemic control for adults with diabetes: <7.0 Performed By: #### O UTREACH GLYCO #### [facility] [address] [place] [address] [facility] Vital Signs Date Time Vital Sign Value Performing Clinician Facility 02-18-2024 09:37-0400 Body height 190.5 cm [facility] 02-18-2024 09:37-0400 Body mass index (BMI) [Ratio] 32.1 kg/m2 [facility] 02-18-2024 09:37-0400 Body weight 116.74 kg [facility] 02-18-2024 09:37-0400 Diastolic blood pressure 81 mm[Hg] [facility] 02-18-2024 09:37-0400 Heart rate 76 /min [facility] 02-18-2024 09:37-0400 Respiratory rate 12 /min [facility] 02-18-2024 09:37-0400 Systolic blood pressure 136 mm[Hg] [facility] 10-18-2023 09:06-0400 Body height 190.5 cm [facility] 10-18-2023 09:06-0400 Body mass index (BMI) [Ratio] 31.8 kg/m2 [facility] 10-18-2023 09:06-0400 Body weight 115.32 kg [facility] 10-18-2023 09:06-0400 Diastolic blood pressure 77 mm[Hg] [facility] 10-18-2023 09:06-0400 Heart rate 80 /min [facility] 10-18-2023 09:06-0400 Respiratory rate 12 /min [facility] 10-18-2023 09:06-0400 Systolic blood pressure 116 mm[Hg] [facility] 07-08-2023 09:00-0500 Body height 190.5 cm Bogdan Ball Other [facility] Other 07-08-2023 09:00-0500 Body mass index (BMI) [Ratio] 32.62 kg/m2 Bogdan Ball Other [facility] Other 07-08-2023 09:00-0500 Body weight 118.39 kg Bogdan Ball Other [facility] Other 07-08-2023 09:00-0500 Diastolic blood pressure 81 mm[Hg] Bogdan Ball Other [facility] Other 07-08-2023 09:00-0500 Respiratory rate 12 /min Bogdan Ball Other [facility] Other 07-08-2023 09:00-0500 Systolic blood pressure 117 mm[Hg] Bogdan Ball Other [facility] Other 05-01-2023 08:30-0500 Body height 190.5 cm Bogdan Ball Other [facility] Other 05-01-2023 08:30-0500 Body mass index (BMI) [Ratio] 32.19 kg/m2 Bogdan Ball Other [facility] Other 05-01-2023 08:30-0500 Body weight 116.85 kg Bogdan Ball Other [facility] Other 05-01-2023 08:30-0500 Diastolic blood pressure 81 mm[Hg] Bogdan Ball Other [facility] Other 05-01-2023 08:30-0500 Respiratory rate 12 /min Bogdan Ball Other [facility] Other 05-01-2023 08:30-0500 Systolic blood pressure 135 mm[Hg] Bogdan Ball Other [facility] Other 12-26-2022 08:30-0400 Body height 190.5 cm Bogdan Ball Other [facility] Other 12-26-2022 08:30-0400 Body mass index (BMI) [Ratio] 31.54 kg/m2 Bogdan Ball Other [facility] Other 12-26-2022 08:30-0400 Body weight 114.49 kg Bogdan Ball Other [facility] Other 12-26-2022 08:30-0400 Diastolic blood pressure 85 mm[Hg] Bogdan Ball Other [facility] Other 12-26-2022 08:30-0400 Respiratory rate 12 /min Bogdan Ball Other [facility] Other 12-26-2022 08:30-0400 Systolic blood pressure 139 mm[Hg] Bogdan Ball Other [facility] Other 11-09-2022 10:58-0400 Blood Pressure Location Hola GARCIA [facility] 11-09-2022 10:58-0400 Diastolic blood pressure 80 mm[Hg] Hola GARCIA [facility] 11-09-2022 10:58-0400 Heart rate 78 /min Hola GARCIA [facility] 11-09-2022 10:58-0400 Respiratory rate 16 /min Holaconnor GARCIA [facility] 11-09-2022 10:58-0400 Systolic blood pressure 130 mm[Hg] Hola GARCIA [facility] 10-05-2022 12:15-0400 Body height 190.5 cm Bogdan Ball Other [facility] Other 10-05-2022 12:15-0400 Body mass index (BMI) [Ratio] 31.17 kg/m2 Bogdan Ball Other [facility] Other 10-05-2022 12:15-0400 Body weight 113.13 kg Bogdan Ball Other [facility] Other 10-05-2022 12:15-0400 Diastolic blood pressure 95 mm[Hg] Bogdan Ball Other [facility] Other 10-05-2022 12:15-0400 Respiratory rate 12 /min Bogdan Ball Other [facility] Other 10-05-2022 12:15-0400 Systolic blood pressure 168 mm[Hg] Bogdan Ball Other [facility] Other 08-23-2022 08:30-0500 Body height 190.5 cm Bogdan Ball Other [facility] Other 08-23-2022 08:30-0500 Body mass index (BMI) [Ratio] 31.42 kg/m2 Bogdan Ball Other [facility] Other 08-23-2022 08:30-0500 Body weight 114.04 kg Bogdan Ball Other [facility] Other 08-23-2022 08:30-0500 Diastolic blood pressure 86 mm[Hg] Bogdan Ball Other [facility] [employer] Other 08-23-2022 08:30-0500 Respiratory rate 12 /min Bogdan Green Other [facility] [employer] Other 08-23-2022 08:30-0500 Systolic blood pressure 132 mm[Hg] Bogdan Green Other [facility] [employer] Other 10-06-2021 08:14-0400 Blood Pressure Location Hola GARCIA [facility] 10-06-2021 08:14-0400 Diastolic blood pressure 98 mm[Hg] Holaconnor GARCIA [facility] 10-06-2021 08:14-0400 Heart rate 78 /min Holaconnor GARCIA [facility] 10-06-2021 08:14-0400 Systolic blood pressure 145 mm[Hg] Hola GARCIA [facility] Encounters Encounter Date Encounter Type Care Provider Facility Start: 04-03-2024 ambulatory Hola GARCIA Facili ty:[facility] Start: 02-18-2024 End: 02-18-2024 ambulatory [facility] Work Phone: Start: 02-18-2024 End: 02-18-2024 Patient encounter procedure [facility] Work Phone: Start: 02-11-2024 Non-patient / Non-visit [facility] Work Phone: Start: 10-18-2023 End: 10-18-2023 ambulatory [facility] Work Phone: Start: 10-18-2023 End: 10-18-2023 Patient encounter procedure [facility] Work Phone: Start: 10-12-2023 Non-patient / Non-visit [facility] Work Phone: Start: 08-23-2023 Non-patient / Non-visit [facility] Work Phone: Start: 08-19-2023 End: 08-20-2023 ambulatory Dm Cyr MD Facility: [facility] Start: 08-16-2023 Non-patient / Non-visit [facility] Work Phone: Start: 07-30-2023 Non-patient / Non-visit [facility] Work Phone: Start: 07-29-2023 End: 07-30-2023 ambulatory Dm Cyr MD [facility] Other Start: 07-29-2023 Telephone encounter Bogdan Green [facility] Start: 07-15-2023 End: 07-16-2023 ambulatory Dm Cyr MD Facility: [facility] Start: 07-08-2023 End: 07-08-2023 ambulatory Bogdan Green Other [facility] Other Start: 07-08-2023 Office outpatient vi sit 25 minutes Bogdan Green [facility] Start: 06-24-2023 End: 06-25-2023 ambulatory Dm Cyr MD Facility:[facility] Start: 05-20-2023 End: 05-21-2023 ambulatory Dm Cyr MD Facility: [facility] Start: 05-10-2023 End: 05-10-2023 ambulatory Bogdan Green Other [facility] Other Start: 05-10-2023 Office outpatient vi sit 15 minutes Bogdan Ball [facility] Start: 05-01-2023 End: 05-01-2023 ambulatory Bogdan Green Other [facility] Other Start: 05-01-2023 Patient encounter procedure Bogdan Green [facility] Start: 04-24-2023 End: 04-24-2023 ambulatory Bogdan Green Other [facility] Other Start: 04-24-2023 Telephone encounter Bogdan Ball [facility] Start: 02-25-2023 End: 02-25-2023 ambulatory Bogdan Peter Other [facility] Other Start: 02-25-2023 Telephone encounter Bogdan Green [facility] Start: 12-27-2022 End: 12-27-2022 ambulatory Bogdan Green Other [facility] Other Start: 12-27-2022 Telephone encounter Bogdan Ball [facility] Start: 12-26-2022 End: 12-26-2022 ambulatory Bogdan Green Other [facility] Other Start: 12-26-2022 Office outpatient vi sit 25 minutes Bogdan Green [facility] Start: 11-19-2022 End: 11-19-2022 ambulatory Bogdan Green Other [facility] Other Start: 11-19-2022 Telephone encounter Bogdan Ball [facility] Start: 11-09-2022 End: 11-09-2022 Patient encounter procedure Hola GARCIA [facility] Start: 10-22-2022 End: 10-22-2022 ambulatory Bogdan Green Other [facility] Other Start: 10-22-2022 Telephone encounter Bogdan Ball [facility] Start: 10-18-2022 End: 10-18-2022 ambulatory Bogdan Peter Other [facility] Other Start: 10-18-2022 Telephone encounter Bogdan Peter [facility] Start: 10-05-2022 End: 10-05-2022 ambulatory Bogdan Green Other [facility] Other Start: 10-05-2022 Office outpatient vi sit 15 minutes Bogdan Peter [facility] Start: 09-27-2022 End: 09-27-2022 ambulatory Bogdan Green Other [facility] Other Start: 09-27-2022 Telephone encounter Bogdan Green [facility] Start: 09-25-2022 End: 09-25-2022 ambulatory Bogdan Green Other [facility] Other Start: 09-25-2022 Telephone encounter Bogdan Green [facility] Start: 09-21-2022 End: 09-21-2022 ambulatory Bogdan Green Other [facility] Other Start: 09-21-2022 Telephone encounter Bogdan Green [facility] Start: 08-23-2022 End: 08-23-2022 ambulatory Bogdan Green Other [facility] Other Start: 08-23-2022 Office outpatient vi sit 25 minutes Bogdan Green [facility] Start: 08-17-2022 End: 08-18-[address] BOGDAN GREEN Facility:[facility] Start: 08-14-2022 End: 08-14-2022 ambulatory Bogdan Green Other [facility] Other Start: 08-14-2022 Telephone encounter Bogdan Green [facility] Start: 07-01-2022 End: 07-01-[address] BOGDAN GREEN Facility:[facility] Start: 04-25-2022 Adult health examination Bogdan Green Other [facility] Other Start: 04-18-2022 End: 04-19-[address] BOGDAN GREEN Facility:[facility] Start: 01-20-2022 End: 01-21-2022 ambulatory NONE LISTED REQUEST Facility:[facility] Start: 10-06-2021 End: 10-06-2021 Patient encounter procedure Hola GARCIA [facility] Start: 09-16-2021 End: 09-17-[address] HOLA GARCIA . Facility:[facility] Start: 09-15-2021 End: 09-16-2021 ambulatory NONE LISTED REQUEST Facility:[facility] Start: 08-29-[address] BOGDAN GREEN Facili ty:[facility]1 Procedures Date Procedure Procedure Detail Performing Clinician Start: 09-16-[address] NORRIS GREEN Comment on above: Performed By: #### B MP, LIPID, ALT, URIC #### [facility] [address] [place] [address] Dr. Jorge L Carey Start: 03-29-2017 General [...] of Treatment Date Care Activity Detail Author US Heart Transthoracic [facility] XR Chest [address] [facility] Immunizations Immunization Date Immunization Notes Care Provider Fa cility 04-29-2023 zoster vaccine recombinant Bogdan Green Other [facility] 04-26-2023 influenza virus vaccine, unspecified formulation [facility] 04-26-2023 influenza, high dose seasonal, preservative-free Bogdan Green Other [facility] Other 02-26-2023 zoster vaccine recombinant Bogdan Green Other [facility] 04-25-2022 pneumococcal 20-alber nt conjugate vaccine Hola GARCIA [facility] 04-16-2022 influenza virus vaccine, split virus (incl. purified surface antigen) Bogdan Green Other [facility] Other 04-16-2022 influenza virus vaccine, unspecified formulation Hola GARCIA [facility] 03-23-2022 SARS-CoV-2 (COVID-19 ) [id number] Hola GARCIA [facility] 05-08-2021 SARS-CoV-2 (COVID-19 ) mRNA BNT-162b2 vax Hola GARCIA [facility] 04-22-2021 influenza virus vaccine, split virus (incl. purified surface antigen) Bogdan Green Other [facility] Other 04-22-2021 influenza virus vaccine, unspecified formulation Hola GARCIA [facility] 03-30-2021 influenza virus vaccine, unspecified formulation Hola GARCIA [facility] 09-16-2020 COVID-19, mRNA, LNP- S, PF, 30 mcg/0.3 mL dose; 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: [[employer] COVID-19 Vaccine] Hola GARCIA [facility] Comment on above: Reason for Medicatio n: Prophylaxis 08-26-2020 COVID-19, mRNA, LNP- S, PF, 30 mcg/0.3 mL dose; 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: [Pfizer-BioNTech COVID-19 Vaccine] Hola GARCIA [facility] Comment on above: Reason for Medicatio n: Prophylaxis 04-16-2020 influenza virus vaccine, split virus (incl. purified surface antigen) Bogdan Green Other [facility] Other 04-16-2020 influenza virus vaccine, unspecified formulation Hola GARCIA [facility] pneumococcal Conjuga te, unspecified formulation; 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: [Need for prophylactic vaccination against Streptococcus pneumoniae (pneumococcus)] Bogdan Green Other [facility] Other Payers Date Payer Category Payer Medicare 2022 Unknown 2021 Medicare [id number] 2020 Unknown [id number] 1959 Medicare [id number] 1958 Self-pay [id number] 1959 Unknown [id number] 1959 Unknown [id number] 1955 Unknown [id number] .16.84 [id number] 1955 Unknown [id number] .16.84 0.1.488254.3.579.2.593 1956 Unknown [id number] .16.84 0.1.748952.3.579.2.593 1956 Unknown [id number] .16.84 0.1.813463.3.579.2.593 1956 Unknown [id number] 2.16.84 0.1.798425.3.579.2.593 1956 Unknown [id number] 2.16. 840.1.020709.3.579.2.196 1956 Unknown [id number] 2.16. 840.1.701615.3.579.2.196 1956 Unknown [id number] 2.16. 840.1.790085.3.579.2.196 1956 Unknown [id number] 2.16. 840.1.354693.3.579.2.196 1956 Unknown [id number] 2.16. 840.1.127870.3.579.2.196 1955 Unknown [id number] 2.16.8 40.1.718030.3.579.2.727 Blue Cross Blue Shield [id number] [id number] Self-pay Self Pay [id number] Unknown [id number] 2.16.84 0.1.376886.3.579.2.593 Unknown [id number] 2.16.84 0.1.496130.3.579.2.593 Social History Date Type Detail Facility Start: 10-06-2021 End: 07-27-2023 Tobacco smoking status Never smoked tobacco (finding) [facility] Sex Assigned At Male [facility] Tobacco smoking status Never [facility] Start: 1955 Sex Assigned At Male [facility] Medical Equipment Procedure Code Equipment Code Equipment Origin al Text Equipment Identifier Dates Blood Sugar Diagnostic (Onetouch Ultra Test) strip Start: 08-16-2023 Blood Sugar Diagnostic (Onetouch Ultra Test) strip Start: 08-16-2023 Pen Needle, Diab etic (Bd Isa 2nd Gen Pen Needle) 32 gauge x 5/32 needle Start: 10-29-2023 Pen Needle, Diab etic (Bd Isa 2nd Gen Pen Needle) 32 gauge x 5/32 needle Start: 10-29-2023 End: 10-29-2023 Functional Status Date Assessment Result Facility 11-09-2022 Functional Status N/A [facility] Clinical Notes 10-06-2021 to 07-29-2023 Note Date & Type Note Facility 07-29-2023 Evaluation note Encounter Date Diagnosis Assessment Notes Jul, Type 2 diabetes mellitus with hyperglycemia , without long-term current use of insulin (ICD-10 - E11.65) [facility] Other 01-22-2024 Evaluation note* Encounter Date Diagnosis [...] index [BMI] 32.0-32.9, adult (ICD-10 - Z68.32) [facility] Other 11-24-2023 Evaluation note* Encounter Date Diagnosis [...] Microalbumin, Dilated eye exam and Foot exam [facility] Other 11-15-2023 Evaluation note* Encounter Date Diagnosis [...] flares Sep, Thrombocytopenia, unspecified (ICD-10 - D69.6) [facility] Other 11-15-2023 Evaluation note* Encounter Date Diagnosis [...] flares Sep, Thrombocytopenia, unspecified (ICD-10 - D69.6) [facility] Other 11-08-2023 Evaluation note* Encounter Date Diagnosis Assessment Notes Treatment Notes Treatment Clinical Notes Apr, Screening PSA (prostate specific antigen) (ICD-10 - Z12.5) Apr, Type 2 diabetes mellitus with hyperglycemia, without long-term current use of insulin (ICD-10 - E11.65) Apr, Elevated cholesterol (ICD-10 - E78.00) Apr, Primary hypertension (ICD-10 - I10) Sep, Thrombocytopenia, unspecified (ICD-10 - D69.6) Thrombocytopenia [facility] Other 07-12-2023 Evaluation note* Encounter Date Diagnosis [...] [BMI] 31.0-31.9, adult (ICD-10 - Z68.31) Dec, care home (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 (ICD-10 - Z79.4) [facility] Other 05-26-2023 Hospital Discharge instructions Patient Education [...] treatment? Where to find more information [employer] [place] [employer]: www.cancer.org [employer] [place]: www.auanet.org Contact a health care [...] provider. Document Revised: 11/27/2021 Document Reviewed: 11/27/2021 [employer] Patient Education 2022 [employer]. Follow Up Care 10/06/2021 08:40:21 With:JOSE MCMANUS, Hola Rushing, URL Address: [facility] [address] [place] [address]- When: Unknown [facility] [place] 05-08-2023 Evaluation note* Encounter Date Diagnosis Assessment Notes Treatment Notes Treatment Clinical Notes October, Primary hypertension (ICD-10 - I10) [facility] Other 05-04-2023 Evaluation note* Encounter Date Diagnosis Assessment Notes Treatment Notes Treatment Clinical Notes October, Primary hypertension (ICD-10 - I10) [facility] Other 04-21-2023 Evaluation note* Encounter Date Diagnosis [...] and Glimepiride appear to be controlling BS. [facility] Other 04-13-2023 Evaluation note* Encounter Date Diagnosis Assessment Notes Treatment Notes Treatment Clinical Notes Sep, Type 2 diabetes mellitus with hyperglycemia (ICD-10 - E11.65) Sep, 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 (ICD-10 - Z79.4) [facility] Other 04-11-2023 Evaluation note* Encounter Date Diagnosis Assessment Notes Treatment Notes Treatment Clinical Notes Sep, Type 2 diabetes mellitus with hyperglycemia, without long-term current use of insulin (ICD-10 - E11.65) [facility] Other 04-07-2023 Evaluation note* Encounter Date Diagnosis Assessment Notes Treatment Notes Treatment Clinical Notes Sep, Type 2 diabetes mellitus with hyperglycemia (ICD-10 - E11.65) [facility] Other 03-09-2023 Evaluation note* Encounter Date Diagnosis [...] Reviewed red flag symptoms and nerve impingement [facility] Other 02-28-2023 Evaluation note* Encounter Date Diagnosis Assessment Notes Treatment Notes Treatment Clinical Notes Jul, Type 2 diabetes mellitus with hyperglycemia, without long-term current use of insulin (ICD-10 - E11.65) [facility] Other 04-22-2022 Hospital Discharge instructions Patient Education [...] urethra. Follow these instructions at home: Take fyaq-vmr-lwwxxig and prescription medicines only as told by [...] 06/03/2006 Document Revised: 04/28/2019 Document Reviewed: 07/08/2017 [employer] Patient Education 2020 [employer]. Follow Up Care 10/03/2020 15:00:49 With:Hola GARCIA MD, URL Address: [facility] [address] [place] [address]- [phone] When:10/06/2022 [facility] evaluation + Plan note Future Appointments Appointment Date:10/12/2022 08:00:00 AM Scheduled Provider:Hola GARCIA MD Location:[facility] Appointment Type:URO Office Visit Diagnostic Tests Pending * PSA Total 10/06/21 [facility] evaluation + Plan note Future Appointments Appointment Date:11/18/2023 08:45:00 AM Scheduled Provider:Hola GARCIA MD Location:[facility] Appointment Type:URO Office Visit Diagnostic Tests Pending * PSA Free & Total 11/09/22 [facility] evaluation noteNort [facility] Other evaluation noteNo [facility] Other Evaluation note* Diagnosis Onset Date Resolution Status Elevated cholesterol acute Gastroesophageal reflux dise ase with esophagitis without hemorrhage acute Obesity acute Primary hypertension acute Spondylosis without myelopat hy or radiculopathy, lumbar region acute Type 2 diabetes mellitus with hyperglycemia acute [facility] Work Phone: Evaluation note* Diagnosis Onset Date Resolution Status Elevated cholesterol acute Gastroesophageal reflux dise ase with esophagitis without hemorrhage acute Primary hypertension acute Spondylosis without myelopat hy or radiculopathy, lumbar region acute Type 2 diabetes mellitus with hyperglycemia acute [facility] Work Phone: [employer] general Narrative - Reported* Type Description Date [...] CYSTOSCOPY 2016 Hospitalization History SEE SURGICAL HX [facility] Other [facility] general Narrative - [facility] Other Hisndft general Narrative - Reported* Type Description Date [...] CYSTOSCOPY 2016 Hospitalization History SEE SURGICAL HX [facility] Other Hospital course Narrative No data available for this section [facility] progress note No data available for this section [facility] Summary Purpose Family History Relationship Condition Age at Onset Recorded Date/T marbella father Heart disease Unknown Hypertension Unknown Diabetes mellitus Unknown Unknown Not Specified Unknown Relationship Condition Age at Onset Recorded Date/T marbella father Heart disease Unknown Hypertension Unknown Diabetes mellitus Unknown Unknown mother Unknown Advance Directives Advance Directive Response Recorded Date/ Time Advance Directives No July 06, 2023 1:00pm Reason for Referral Reason *FU 05/16 Mr. Christianson er is being referred for chronic low back pain. Diagnosis 1 Medicare annual well ness visit, initial (Z00.00) Referral Organization [facility] Peter de la cruz Referring Provider First Name Bogdan Referring Provider Last Name Peter Referring Provider Specialty Internal Me dicine Referred Organization [facility] Referred Provider Swapnil French Referred Address [address], [place],[address] Referred Provider Specialty Pain Medicin e Referral [...] Notes Include XR lumbar sp ine f: [id number] Chief Complaint and Reason for Visit Chief Complaint Amb Documentation Amb Documentation Amb Documentation 3 month follow up (LM FOR PATIENT TO RESCHDULE) Reason for Visit Elevated cholesterol Gastroesophageal reflux disease with esophagitis without hemorrhage Obesity Primary hypertension Spondylosis without myelopathy or radiculopathy, lumbar region Type 2 diabetes mellitus with hyperglycemia Chief Complaint 4 month f/u Reason for Visit Elevated cholesterol Gastroesophageal reflux disease with esophagitis without hemorrhage Primary hypertension Spondylosis without myelopathy or radiculopathy, lumbar region Type 2 diabetes mellitus with hyperglycemia Additional Source Comments (unrecognized sect ion and content) No Status Records FoundNo Status Records FoundNo Status Records FoundNo Status Records Found INFORMATION SOURCE (unrecogn ized section and content) DATE CREATED AUTHOR 07/30/2021 [facility] DATE CREATED AUTHOR AUTHOR'S ORGANIZ ATION 08/22/2022 [facility] DATE CREATED AUTHOR AUTHOR'S ORGANIZ ATION 08/23/2023 [facility] DATE CREATED AUTHOR AUTHOR'S ORGANIZ ATION 11/14/2023 [facility] REASON FOR VISIT (unrecogniz ed section and content) BS readingsElevated blood cifuentes [id number] PositiveWellnesslabsLab ResultsBP readingsrefillelevated BPMedication4 MONTH FOLLOW UP Patient Care team informatio n (unrecognized section and content) Team Status: Active Member Role Status Dates Bogdan Green , Primary Care Provider Active Team Status: Active Member Role Status Dates Bogdan Green DO Primary Care Provide r, Attending Provider Active Start: July 30, 2023 Team Status: Active Member Role Status Dates Bogdan Green DO Primary Care Provider Active Start: August 16, 2023 [facility] Max Attending Provider Active Start : August 16, 2023 Team Status: Active Member Role Status Dates Bogdan Green DO Primary Care Provider Active Start: August 23, 2023 EF[facility] Alvarez Attending Provider Active St art: August 23, 2023 Team Status: Active Member Role Status Dates Bogdan Green DO Primary Care Provide r, Attending Provider Active Start: October 12, 2023 Team Status: Inactive Member Role Status Dates Bogdan Green , DO Primary Care Provide r, Attending Provider Active Start: October 18, 2023 End: October 18, 2023 Team Status: Active Member Role Status Rubin Green DO Primary Care Provide r, Attending Provider Active Start: February 11, 2024 Team Status: Inactive Member Role Status Dates Bogdan Green DO Primary Care Provide r, Attending Provider Active Start: February 18, 2024 End: February 18, 2024 Goals (unrecognized section and content) Goals may [...] BE BASED ON THE PRIMARY CLINICAL RECORDS. [facility] [employer] [facility]. provides no warranty or guarantee of the accuracy or completeness of information in this document.
--- NOTE | 2024-02-26 10:33 | XR_ITS ---
The [address] [address] Patient Name: FELIPE QUAN MRN: [id number] date: 1955 Sex: M Assigned Patient Location: CARD Current Patient Location: Accession/Order Number: [id number] Exam Date: 02/26/2024 10:40 Report Date: 02/27/2024 08:08 At the request of: BELLE PRUITT Procedure: XR chest 2V PROCEDURE: XR chest 2V DATE: 02/26/2024 9:40 AM CDT COMPARISONS: 07/01/2022 CLINICAL INDICATION: 68 years Male Dyspnea FINDINGS: The cardiomediastinal silhouette and pulmonary vasculature are within normal limits. The lungs are hypoaerated. Increased interstitial markings of the perihilar and infrahilar regions likely represents atelectasis due to hypoaerated lungs. The lungs are otherwise clear. There is no evidence of pleural effusion or pneumothorax. XR/XR chest 2V IMPRESSION: Less than optimal inspiratory radiograph. Chest radiograph is otherwise essentially within normal limits and stable. Electronically authenticated by: DANISHA FUNES Date: 02/27/2024 08:08
== END 2024-02-26 09:50 | disposition home or self-care (01) ==
LOC: CARD 09:50
PROVIDERS: PCP Internal Medicine; Visit Provider Internal Medicine
DX: R06.00 Dyspnea, unspecified (principal); R01.1 Cardiac murmur, unspecified; I10 Essential (primary) hypertension
CPT/HCPCS: 71046; 93306

== ENCOUNTER 2024-03-25 10:19 | Outpatient (OUT) | payer MEDICARE, BC, SELFPAY ==
--- OUTSIDE RECORDS SUMMARY | 2024-03-25 10:30 | XMS_ITS | CCD ---
Author Organization 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 Repository Medications Current Medications Medication Drug [...] day(s), # 90 tab(s), Refills(s) 3, Pharmacy: [facility]/pharmacy #[id number], 195, cm, 11/09/22 11:00:00 EDT, Height/Length Dosing, 111, kg, 11/09/22 11:00:00 EDT, Weight Dosing Start Date: 11/09/22 Stop Date: 11/04/23 Status: Ordered Start: 10-06-2021 take 1 tablet by osbaldo th once daily finasteride 5 mg Tab 5 mg = 1 tab(s), Oral, Daily, # 90 tab(s), Refills(s) 3, Pharmacy: [facility]/pharmacy #[id number], 195, cm, 10/06/21 8:16:00 EDT, Height/Length [...] bid for 5 days Apr, Active [place] 5/16 (15 sources) Start: 09-27-2022 Start: 09-27-2022 [place] 5/ 16 Use to inject insulin qd [...] acid 4700 mg / polyethylene glycol 3350 [id number] mg / potassium chloride 1015 mg / [...] 05-09-2015 Chronic Other aftercare (1 source) 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; 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] Onset: 07-03-2022 Episodic Other aftercare (1 source) 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; 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: [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 USE 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 HYPOGLYCEMIC DX] Onset: 07-03-2022 Episodic Other aftercare (15 sources) Long-term current use of insulin; 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: [check services clerk (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] Episodic Other aftercare (2 sources) prison (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 Episodic Other aftercare (2 sources) Long-term current use of drug therapy; 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] Episodic Other and unspecified [...] from glycated hemoglobin (Bld) [Mass/Vol] 169 mg/dL [facility] - Hematology and Cell countson 02-11-2024 HbA1c (Bld) [Mass fraction] 7.5 % High 4.5-6.2 [facility] Comment on above: ADA RECOMMENDED LIMI T 4.0 - 6.0ADA THERAPEUTIC TARGET < 7.0ACTION SUGGESTED> 7.0 Glucose mean value [Mass/vol ume] in Blood Estimated from glycated hemoglobinon 10-12-2023 Average glucose Estimated from glycated hemoglobin (Bld) [Mass/Vol] 180 mg/dL [facility] - Hematology and Cell countson 10-12-2023 HbA1c (Bld) [Mass fraction] 7.9 % 4.5-6.2 [facility] Comment on above: ADA RECOMMENDED LIMI T 4.0 - 6.0ADA THERAPEUTIC TARGET < 7.0ACTION SUGGESTED> 7.0 GLYCOHEMOGLOBIN A1Con 2022 ADA RECOMMENDATION SEE BELOW Normal [facility] Comment on above: Result Comment: ADA RECOMMENDED LIMIT 4.0 - 6.0 ADA THERAPEUTIC TARGET < 7.0 ACTION SUGGESTED > 7.0 Performed By: #### B MP, LIPID, ALT, URIC #### [facility] [address] [place] [address] Dr. Jorge L Carey Glucose [Mass/Vol] 148 mg/dL Normal [facility] Comment on above: Performed By: #### B MP, LIPID, ALT, URIC #### [facility] [address] [address] [address] Jorge L Carey HbA1c (Bld) [Mass fraction] 6.8 % Critically high 4.5-6.2 [facility] Comment on above: Performed By: #### B MP, LIPID, ALT, URIC #### [facility] [address] [address] [address] Jorge L Carey CARDIAC DANAY ADMITon 023 CK [Catalytic activity/Vol] 59 U/L Normal 39-308 [facility] Comment on above: Performed By: #### C MP, CMADM #### [facility] [address] [address] [address] Jorge L Carey CK.MB [Mass/Vol] 0.99 ng/mL Normal <=3.60 [facility] Comment on above: Performed By: #### C MP, CMADM #### [facility] [address] [place] [address] Dr. Jorge L Carey HSTROP 10.0 pg/mL Normal 4.0-76.1 [facility] Comment on above: Result Comment: CUT- OFF POINTS HAVE BEEN ESTABLISHED BASED ON THE FOURTH UNIVERSAL DEFINITIONS OF MYOCARDIAL INFARCTION. THE UPPER REFERENCE LIMIT (URL) OF TROPONIN, DEFINED THE 99TH PERCENTILE OF cTnI DISTRIBUTION IN A REFERENCE POPULATION, HAS BEEN CONFIRMED THE DECISION THRESHOLD FOR ND DIAGNOSIS. Performed By: #### C MP, CMADM #### [facility] [address] [place] [address] Dr. Jorge L Carey GARLAND 52 ng/mL Normal 16-96 [facility] Comment on above: Performed By: #### C MP, CMADM #### [facility] [address] [place] [address] Dr. Jorge L Carey CBC AUTO DIFFon 07-01-2022 BASO # 0.0 103/ul Normal 0.0-0.1 [facility] Comment on above: Performed By: #### B MP, LIPID, ALT, URIC #### [facility] [address] [place] [address] Dr. Jorge L Carey Basophils/100 WBC (Bld) 0.3 % Normal 0.2-2.0 [facility] Comment on above: Performed By: #### B MP, LIPID, ALT, URIC #### [facility] [address] [place] [address] Dr. Jorge L Carey EO # 0.1 103/ul Normal 0.0-0.7 [facility] Comment on above: Performed By: #### B MP, LIPID, ALT, URIC #### [facility] [address] [place] [address] Dr. Jorge L Carey Eosinophils/100 WBC (Bld) 0.9 % Normal 0.9-7.0 [facility] Comment on above: Performed By: #### B MP, LIPID, ALT, URIC #### [facility] [address] [place] [address] Dr. Jorge L Carey Erythrocyte distribution width (RBC) [Ratio] 11.7 % Normal 11.0-15.0 [facility] Comment on above: Performed By: #### B MP, LIPID, ALT, URIC #### [facility] [address] [place] [address] Dr. Jorge L Carey Hematocrit (Bld) [Volume fraction] 41.1 % Critically low 42.0-54.0 [facility] Comment on above: Performed By: #### B MP, LIPID, ALT, URIC #### [facility] [address] [address] [address] Jorge L Carey Hemoglobin (Bld) [Mass/Vol] 14.5 g/dL Normal 14.0-18.0 [facility] Comment on above: Performed By: #### B MP, LIPID, ALT, URIC #### [facility] [address] [place] [address] Dr. Jorge L Carey IG # 0.02 10e3/ul Normal 0.00-0.03 [facility] Comment on above: Performed By: #### B MP, LIPID, ALT, URIC #### [facility] [address] [place] [address] Dr. Jorge L Carey IG % 0.3 % Normal 0.0-0.5 [facility] Comment on above: Performed By: #### B MP, LIPID, ALT, URIC #### [facility] [address] [place] [address] Dr. Jorge L Carey LYMPH # 1.1 103/ul Critically low 1.2-3.8 [facility] Comment on above: Performed By: #### B MP, LIPID, ALT, URIC #### [facility] [address] [place] [address] Dr. Jorge L Carey Lymphocytes/100 WBC (Bld) 16.6 % Critically low 20.5-60.0 [facility] Comment on above: Performed By: #### B MP, LIPID, ALT, URIC #### [facility] [address] [place] [address] Dr. Jorge L Carey MANUAL DIFF REQ NO Normal [facility] Comment on above: Performed By: #### B MP, LIPID, ALT, URIC #### [facility] [address] [place] [address] Dr. Jorge L Carey MCH (RBC) [Entitic mass] 30.1 pg Normal 25.9-34.0 [facility] Comment on above: Performed By: #### B MP, LIPID, ALT, URIC #### [facility] [address] [place] [address] Dr. Jorge L Carey MCHC (RBC) [Mass/Vol] 35.3 g/dL Critically high 29.9-35.2 [facility] Comment on above: Performed By: #### B MP, LIPID, ALT, URIC #### [facility] [address] [place] [address] Dr. Jorge L Carey MCV (RBC) [Entitic vol] 85.4 fL Normal 80.0-94.0 [facility] Comment on above: Performed By: #### B MP, LIPID, ALT, URIC #### [facility] [address] [place] [address] Dr. Jorge L Carey MONO # 0.4 103/ul Normal 0.3-0.8 [facility] Comment on above: Performed By: #### B MP, LIPID, ALT, URIC #### [facility] [address] [place] [address] Dr. Jorge L Carey Monocytes/100 WBC (Bld) 5.1 % Normal 1.7-12.0 [facility] Comment on above: Performed By: #### B MP, LIPID, ALT, URIC #### [facility] [address] [place] [address] Dr. Jorge L Carey NEUT # 5.3 103/ul Normal 1.4-6.5 [facility] Comment on above: Performed By: #### B MP, LIPID, ALT, URIC #### [facility] [address] [place] [address] Dr. Jorge L Carey Neutrophils/100 WBC (Bld) 76.8 % Critically high 43.0-75.0 [facility] Comment on above: Performed By: #### B MP, LIPID, ALT, URIC #### [facility] [address] [place] [address] Dr. Jorge L Carey Platelet mean volume (Bld) [Entitic vol] 12.1 fL Normal 9.5-13.5 [facility] Comment on above: Performed By: #### B MP, LIPID, ALT, URIC #### [facility] [address] [place] [address] Dr. Jorge L Carey PLT 147 103/ul Critically low 150-450 [facility] Comment on above: Performed By: #### B MP, LIPID, ALT, URIC #### [facility] [address] [place], [place] [address] Dr. Jorge L Carey RBC 4.81 106/ul Normal 4.70-6.10 [facility] Comment on above: Performed By: #### B MP, LIPID, ALT, URIC #### [facility] [address] [place], [place] [address] Dr. Jorge L Carey WBC 6.9 103/ul Normal 4.0-11.0 [facility] Comment on above: Performed By: #### B MP, LIPID, ALT, URIC #### [facility] [address] [place], [place] [address] Dr[address] Jorge L [address] HEAD WO [...] MALENA LÓPEZ Date: 2022-07-01 20:24 Normal [facility] Covid-19 PCR (CVDTB)on 06-17 SARS-CoV-2 (COVID-19) RNA EDVIN+probe Ql (Unsp spec) Not detected Normal NOT DETECTED [facility] Comment on above: Result Comment: When [...] for this test is supported by the [employer] of Health and Human Service's declaration that [...] used). Performed By: #### C VDTBH #### [facility] [address] [place] [address] Dr. Jorge L Carey D-DIMERon 07-01-2022 D-DIMER 0.21 mg/L FEU Normal <=0.59 [facility] Comment on above: Performed By: #### B MP, LIPID, ALT, URIC #### [facility] [address] [place] [address] Dr. Joreg L Carey D-DIMER COMMENTS SEE BELOW Normal [facility] Comment on above: Result Comment: Incr eases [...] #### B MP, LIPID, ALT, URIC #### [facility] [address] [place] [address] Dr. Jorge L Carey ER URINE PROFILEon 3 Bilirubin Ql (U) Negative Normal NEGATIVE [facility] Comment on above: Performed By: #### B MP, LIPID, ALT, URIC #### [facility] [address] [place] [address] Dr. Jorge L Carey Clarity (U) CLEAR Normal CLEAR [facility] Comment on above: Performed By: #### B MP, LIPID, ALT, URIC #### [facility] [address] [address] [address] Jorge L Carey Color (U) LT. YELLOW Normal YELLOW [facility] Comment on above: Performed By: #### B MP, LIPID, ALT, URIC #### [facility] [address] [address] [address] Jorge L Carey ERUAHD A micrscopic examination will be performed if indicated. Normal [facility] Comment on above: Performed By: #### B MP, LIPID, ALT, URIC #### [facility] [address] [address] [address] Jorge L Carey Glucose Ql (U) Negative Normal NEGATIVE [facility] Comment on above: Performed By: #### B MP, LIPID, ALT, URIC #### [facility] [address] [address] [address] Jorge L Carey Hemoglobin Ql (U) Negative Normal NEGATIVE [facility] Comment on above: Performed By: #### B MP, LIPID, ALT, URIC #### [facility] [address] [address] [address] Jorge L Carey Ketones Ql (U) Negative Normal NEGATIVE [facility] Comment on above: Performed By: #### B MP, LIPID, ALT, URIC #### [facility] [address] [address] [address] Jorge L Carey LEUKOCYTES Negative Normal NEGATIVE [facility] Comment on above: Performed By: #### B MP, LIPID, ALT, URIC #### [facility] [address] [address] [address] Jorge L Carey Nitrite Ql (U) Negative Normal NEGATIVE [facility] Comment on above: Performed By: #### B MP, LIPID, ALT, URIC #### [facility] [address] [address] [address] Jorge L Carey pH (U) 6.0 [pH] Normal 5-9 [facility] Comment on above: Performed By: #### B MP, LIPID, ALT, URIC #### [facility] [address] [place] [address] Dr. Jorge L Carey SPEC GRAVITY 1.020 Normal 1.005-<=1.025 [facility] Comment on above: Performed By: #### B MP, LIPID, ALT, URIC #### [facility] [address] [place] [address] Dr. Jorge L Carey UA PROTEIN Negative Normal NEGATIVE/ TRACE [facility] Comment on above: Performed By: #### B MP, LIPID, ALT, URIC #### [facility] [address] [place] [address] Dr. Jorge L Carey UR MICRO IND NOT INDICATED Normal [facility] Comment on above: Performed By: #### B MP, LIPID, ALT, URIC #### [facility] [address] [place] [address] Dr. Jorge L Carey Urobilinogen Qn (U) 1.0 {Ila'U}/dL Normal 0.2 - 1. 0 [facility] Comment on above: Performed By: #### B MP, LIPID, ALT, URIC #### [facility] [address] [place] [address] Dr. Jorge L Carey INFLUENZA A AND B AGon 07-01 [facility] SEE BELOW Normal [facility] Comment on above: Result Comment: Nega tive for Flu A protein angiten. Infection due to Flu A cannot be ruled out. Flu A angiten in the sample may be below the detection limit of the test. Performed By: #### I NFLUAB #### [facility] [address] [place] [address] Dr. Jorge L Carey INFLUBNEGH SEE BELOW Normal [facility] Comment on above: Result Comment: Nega tive for Flu B protein antigen. Infection due to Flu B cannot be ruled out. Flu B antigen in the sample may be below the detection limit of the test. Performed By: #### I NFLUAB #### [facility] [address] [place] [address] Dr. Jorge L Carey INFLUENZA A AG Negative Normal NEGATIVE SEE COMMENT [facility] Comment on above: Performed By: #### I NFLUAB #### [facility] [address] [address] [address] Jorge L Carey INFLUENZA B AG Negative Normal NEGATIVE SEE COMMENT [facility] Comment on above: Performed By: #### I NFLUAB #### [facility] [address] [address] [address] Jorge L Carey POINT OF CARE GLUCOSEon 06-17 Glucose [Mass/Vol] 130 mg/dL Critically high 74-106 [facility] Comment on above: Performed By: #### B MP, LIPID, ALT, URIC #### [facility] [address] [address] [address] Jorge L Carey PROF 14(COMP METB)on 023 Albumin [Mass/Vol] 3.7 g/dL Normal 3.4-5.0 [facility] Comment on above: Performed By: #### C IGGY, CMADM #### [facility] [address] [place] [address] Dr. Jorge L Carey Albumin/Globulin [Mass ratio] 1.2 {ratio} Normal [facility] Comment on above: Performed By: #### C IGGY, CMADM #### [facility] [address] [place] [address] Dr. Jorge L Carey ALP [Catalytic activity/Vol] 49 U/L Normal 46-116 [facility] Comment on above: Performed By: #### C IGGY, CMADM #### [facility] [address] [address] [address] Jorge L Carey ALT [Catalytic activity/Vol] 30 U/L Normal 16-63 [facility] Comment on above: Performed By: #### C MP, CMADM #### [facility] [address] [place] [address] Dr. Jorge L Carey Anion gap [Moles/Vol] 12.7 mmol/L Normal [facility] Comment on above: Performed By: #### C MP, CMADM #### [facility] [address] [place] [address] Dr. Jorge L Carey AST [Catalytic activity/Vol] 21 U/L Normal 15-37 [facility] Comment on above: Performed By: #### C IGGY, CMADM #### [facility] [address] [place] [address] Dr. Jorge L Carey Bilirubin [Mass/Vol] 0.5 mg/dL Normal 0.2-1.0 [facility] Comment on above: Performed By: #### C IGGY, CMADM #### [facility] [address] [place] [address] Dr. Jorge L Carey Calcium [Mass/Vol] 8.9 mg/dL Normal 8.5-10.1 [facility] Comment on above: Performed By: #### C IGGY, CMADM #### [facility] [address] [place] [address] Dr. Jorge L Carey Chloride [Moles/Vol] 100 mmol/L Normal 98-107 [facility] Comment on above: Performed By: #### C IGGY, CMADM #### [facility] [address] [place] [address] Dr. Jorge L Craey CO2 [Moles/Vol] 29.0 mmol/L Normal 21.0-32.0 [facility] Comment on above: Performed By: #### C IGGY, CMADM #### [facility] [address] [place] [address] Dr. Jorge L Carey Creatinine [Mass/Vol] 1.04 mg/dL Normal 0.70-1.30 [facility] Comment on above: Performed By: #### C IGGY, CMADM #### [facility] [address] [place] [address] Dr. Jorge L Carey EGFR-AF CYMRO >60 Normal >=60 [facility] Comment on above: Performed By: #### C IGGY, CMADM #### [facility] [address] [place] [address] Dr. Jorge L Carey EGFR-NON AF CYMRO >60 Normal >=60 [facility] Comment on above: Performed By: #### C IGGY, CMADM #### [facility] [address] [place] [address] Dr. Jorge L Carey Globulin (S) [Mass/Vol] 3.1 g/dL Normal [facility] Comment on above: Performed By: #### C IGGY, RAMYDM #### [facility] [address] [place] [address] Dr. Jorge L Carey Glucose [Mass/Vol] 140 mg/dL Critically high 74-106 [facility] Comment on above: Performed By: #### C IGGY, CMADM #### [facility] [address] [place] [address] Dr. Jorge L Carey Potassium [Moles/Vol] 3.7 mmol/L Normal 3.5-5.1 [facility] Comment on above: Performed By: #### C IGGY, RAMYDM #### [facility] [address] [place] [address] Dr. Jorge L Carey Protein [Mass/Vol] 6.8 g/dL Normal 6.4-8.2 [facility] Comment on above: Performed By: #### C RAMY PARKINSONDM #### [facility] [address] [place] [address] Dr. Jorge L Carey Sodium [Moles/Vol] 138 mmol/L Normal 136-145 [facility] Comment on above: Performed By: #### C IGGY, RAMYDM #### [facility] [address] [place] [address] Dr. Jorge L Carey Urea nitrogen [Mass/Vol] 13.0 mg/dL Normal 7.0-18.0 [facility] Comment on above: Performed By: #### C IGGY, RAMYDM #### [facility] [address] [place] [address] Dr. Jorge L Carey Urea nitrogen/Creatinine [Mass ratio] 12.5 mg/mg Normal [facility] Comment on above: Performed By: #### C IGGY, CMADM #### [facility] [address] [place] [address] Dr. Jorge L Carey TROPONIN, HIGH SENSITIVITYon 07-01-2022 HSTROP 10.9 pg/mL Normal 4.0-76.1 [facility] Comment on above: Result Comment: CUT- OFF POINTS HAVE BEEN ESTABLISHED BASED ON THE FOURTH UNIVERSAL DEFINITIONS OF MYOCARDIAL INFARCTION. THE UPPER REFERENCE LIMIT (URL) OF TROPONIN, DEFINED THE 99TH PERCENTILE OF cTnI DISTRIBUTION IN A REFERENCE POPULATION, HAS BEEN CONFIRMED THE DECISION THRESHOLD FOR ND DIAGNOSIS. Performed By: #### B MP, LIPID, ALT, URIC #### [facility] [address] [place] [address] Dr. Jorge L Carey XR CHEST 1 [...] [employer]ERS Date: 2022-07-01 19:57 Normal [facility] CBC AUTO DIFFon 04-18-2022 BASO # 0.0 103/ul Normal 0.0-0.1 [facility] Comment on above: Performed By: #### C BC #### [facility] [address] [place] [address] Dr. Jorge L Carey Basophils/100 WBC (Bld) 0.7 % Normal 0.2-2.0 [facility] Comment on above: Performed By: #### C BC #### [facility] [address] [place] [address] Dr. Jorge L Carey EO # 0.2 103/ul Normal 0.0-0.7 [facility] Comment on above: Performed By: #### C BC #### [facility] [address] [place] [address] Dr. Jorge L Carey Eosinophils/100 WBC (Bld) 2.6 % Normal 0.9-7.0 [facility] Comment on above: Performed By: #### C BC #### [facility] [address] [place] [address] Dr. Jorge L Carey Erythrocyte distribution width (RBC) [Ratio] 11.5 % Normal 11.0-15.0 [facility] Comment on above: Performed By: #### C BC #### [facility] [address] [place] [address] Dr. Jorge L Carey Hematocrit (Bld) [Volume fraction] 44.7 % Normal 42.0-54.0 [facility] Comment on above: Performed By: #### C BC #### [facility] [address] [place] [address] Dr. Jorge L Carey Hemoglobin (Bld) [Mass/Vol] 15.5 g/dL Normal 14.0-18.0 [facility] Comment on above: Performed By: #### C BC #### [facility] [address] [place] [address] Dr. Jorge L Carey IG # 0.01 10e3/ul Normal 0.00-0.03 [facility] Comment on above: Performed By: #### C BC #### [facility] [address] [place] [address] Dr. Jorge L Carey IG % 0.2 % Normal 0.0-0.5 [facility] Comment on above: Performed By: #### C BC #### [facility] [address] [place] [address] Dr. Jorge L Carey LYMPH # 1.3 103/ul Normal 1.2-3.8 [facility] Comment on above: Performed By: #### C BC #### [facility] [address] [place] [address] Dr. Jorge L Carey Lymphocytes/100 WBC (Bld) 21.3 % Normal 20.5-60.0 [facility] Comment on above: Performed By: #### C BC #### [facility] [address] [place] [address] Dr. Jorge L Carey MANUAL DIFF REQ NO Normal [facility] Comment on above: Performed By: #### C BC #### [facility] [address] [place] [address] Dr. Jorge L Carey MCH (RBC) [Entitic mass] 30.1 pg Normal 25.9-34.0 [facility] Comment on above: Performed By: #### C BC #### [facility] [address] [place] [address] Dr. Jorge L Carey MCHC (RBC) [Mass/Vol] 34.7 g/dL Normal 29.9-35.2 [facility] Comment on above: Performed By: #### C BC #### [facility] [address] [address] [address] Jorge L Carey MCV (RBC) [Entitic vol] 86.8 fL Normal 80.0-94.0 [facility] Comment on above: Performed By: #### C BC #### [facility] [address] [address] [address] Jorge L Carey MONO # 0.4 103/ul Normal 0.3-0.8 [facility] Comment on above: Performed By: #### C BC #### [facility] [address] [place] [address] Dr. Jorge L Carey Monocytes/100 WBC (Bld) 7.2 % Normal 1.7-12.0 [facility] Comment on above: Performed By: #### C BC #### [facility] [address] [place] [address] Dr. Jorge L Carey NEUT # 4.1 103/ul Normal 1.4-6.5 [facility] Comment on above: Performed By: #### C BC #### [facility] [address] [place] [address] Dr. Jorge L Carey Neutrophils/100 WBC (Bld) 68.0 % Normal 43.0-75.0 [facility] Comment on above: Performed By: #### C BC #### [facility] [address] [place] [address] Dr. Jorge L Carey Platelet mean volume (Bld) [Entitic vol] 12.0 fL Normal 9.5-13.5 [facility] Comment on above: Performed By: #### C BC #### [facility] [address] [place] [address] Dr. Jorge L Carey PLT 163 103/ul Normal 150-450 [facility] Comment on above: Performed By: #### C BC #### [facility] [address] [place] [address] Dr. Jorge L Carey RBC 5.15 106/ul Normal 4.70-6.10 [facility] Comment on above: Performed By: #### C BC #### [facility] [address] [address] [address] Jorge L Carey WBC 6.1 103/ul Normal 4.0-11.0 [facility] Comment on above: Performed By: #### C BC #### [facility] [address] [address] [address] Jorge L Carey GLYCOHEMOGLOBIN A1Con 2021 ADA RECOMMENDATION SEE BELOW Normal [facility] Comment on above: Result Comment: ADA RECOMMENDED LIMIT 4.0 - 6.0 ADA THERAPEUTIC TARGET < 7.0 ACTION SUGGESTED > 7.0 Performed By: #### B MP, LIPID, ALT, URIC #### [facility] [address] [address] [address] Jorge L Carey Glucose [Mass/Vol] 146 mg/dL Normal [facility] Comment on above: Performed By: #### B MP, LIPID, ALT, URIC #### [facility] [address] [address] [address] Jorge L Carey HbA1c (Bld) [Mass fraction] 6.7 % Critically high 4.5-6.2 [facility] Comment on above: Performed By: #### B MP, LIPID, ALT, URIC #### [facility] [address] [address] [address] Jorge L Carey LIPID PROFILEon 04-18-2022 CHOL-HDL RATIO NORM SEE BELOW Normal [facility] Comment on above: Result Comment: 3.3 - 4.4 LOW RISK 4.4 - 7.1 AVERAGE RISK 7.1 - 11.0 MODERATE RISK >11.0 HIGH RISK Performed By: #### B MP, LIPID, ALT, URIC #### [facility] [address] [address] [address] Jorge L Carey Cholesterol [Mass/Vol] 117 mg/dL Normal <=200 [facility] Comment on above: Performed By: #### B MP, LIPID, ALT, URIC #### [facility] [address] [address] [address] Jorge L Carey Cholesterol in HDL [Mass/Vol] 48 mg/dL Normal 40-60 [facility] Comment on above: Performed By: #### B MP, LIPID, ALT, URIC #### [facility] [address] [address] [address] Jorge L Carey Cholesterol in LDL [Mass/Vol] 50.6 mg/dL Normal [facility] Comment on above: Performed By: #### B MP, LIPID, ALT, URIC #### [facility] [address] [address] [address] Jorge L Carey Cholesterol.total/Cho lesterol in HDL [Mass ratio] 2.4 {ratio} Normal [facility] Comment on above: Performed By: #### B MP, LIPID, ALT, URIC #### [facility] [address] [address] [address] Jorge L Carey HDL NORMAL > or = 60 mg/dl - LOW CARDIOVASCULAR RISK <40 mg/dl - HIGH CARDIOVASCULAR RISK Normal [facility] Comment on above: Performed By: #### B MP, LIPID, ALT, URIC #### [facility] [address] [address] [address] Jorge L Carey LDL CALC NORMAL SEE BELOW Normal [facility] Comment on above: Result Comment: <100 mg/dl OPTIMAL 100 - 129 mg/dl NEAR OR ABOVE OPTIMAL 130 - 159 mg/dl BORDERLINE HIGH 160 - 189 mg/dl HIGH >190 mg/dl VERY HIGH Performed By: #### B MP, LIPID, ALT, URIC #### [facility] [address] [address] [address] Jorge L Carey Triglyceride [Mass/Vol] 92 mg/dL Normal <=150 [facility] Comment on above: Performed By: #### B MP, LIPID, ALT, URIC #### [facility] [address] [address] [address] Jorge L Carey VLDL CALC 18.4 mg/dL Normal [facility] Comment on above: Performed By: #### B MP, LIPID, ALT, URIC #### [facility] [address] [address] [address] Jorge L Carey MICROALBUMIN, RAND URon 11-0 mALB <1.3 Normal <=30.0 [facility] Comment on above: Performed By: #### M ALBR #### [facility] [address] [address] [address] Jorge L Carey PROF CHEM 8 (BAS METB)on Anion gap [Moles/Vol] 9.5 mmol/L Normal [facility] Comment on above: Performed By: #### B MP, LIPID, ALT, URIC #### [facility] [address] [place] [address] Dr. Jorge L Carey Calcium [Mass/Vol] 8.6 mg/dL Normal 8.5-10.1 [facility] Comment on above: Performed By: #### B MP, LIPID, ALT, URIC #### [facility] [address] [place] [address] Dr. Jorge L Carey Chloride [Moles/Vol] 102 mmol/L Normal 98-107 [facility] Comment on above: Performed By: #### B MP, LIPID, ALT, URIC #### [facility] [address] [place] [address] Dr. Jorge L Carey CO2 [Moles/Vol] 30.8 mmol/L Normal 21.0-32.0 [facility] Comment on above: Performed By: #### B MP, LIPID, ALT, URIC #### [facility] [address] [place] [address] Dr. Jorge L Carey Creatinine [Mass/Vol] 0.95 mg/dL Normal 0.70-1.30 [facility] Comment on above: Performed By: #### B MP, LIPID, ALT, URIC #### [facility] [address] [place] [address] Dr. Jorge L Carey EGFR-AF CYMRO >60 Normal >=60 [facility] Comment on above: Performed By: #### B MP, LIPID, ALT, URIC #### [facility] [address] [place] [address] Dr. Jorge L Carey EGFR-NON AF CYMRO >60 Normal >=60 [facility] Comment on above: Performed By: #### B MP, LIPID, ALT, URIC #### [facility] [address] [address] [address] Jroge L Carey Glucose [Mass/Vol] 142 mg/dL Critically high 74-106 [facility] Comment on above: Performed By: #### B MP, LIPID, ALT, URIC #### [facility] [address] [place] [address] Dr. Jorge L Carey Potassium [Moles/Vol] 4.3 mmol/L Normal 3.5-5.1 [facility] Comment on above: Performed By: #### B MP, LIPID, ALT, URIC #### [facility] [address] [place] [address] Dr. Jorge L Carey Sodium [Moles/Vol] 138 mmol/L Normal 136-145 [facility] Comment on above: Performed By: #### B MP, LIPID, ALT, URIC #### [facility] [address] [place] [address] Dr. Jorge L Carey Urea nitrogen [Mass/Vol] 14.0 mg/dL Normal 7.0-18.0 [facility] Comment on above: Performed By: #### B MP, LIPID, ALT, URIC #### [facility] [address] [place] [address] Dr. Jorge L Carey Urea nitrogen/Creatinine [Mass ratio] 14.7 mg/mg Normal [facility] Comment on above: Performed By: #### B MP, LIPID, ALT, URIC #### [facility] [address] [place] [address] Dr. Jorge L Carey SGPTon 04-18-2022 ALT [Catalytic activity/Vol] 27 U/L Normal 16-63 [facility] Comment on above: Performed By: #### B MP, LIPID, ALT, URIC #### [facility] [address] [place] [address] Dr. Jorge L Carey URIC ACID SERUMon 04-18-2022 Urate [Mass/Vol] 5.5 mg/dL Normal 3.5-7.2 [facility] Comment on above: Performed By: #### B MP, LIPID, ALT, URIC #### [facility] [address] [place] [address] Dr. Jorge L Carey GLYCOHEMOGLOBIN A1Con 08-06- 2022 ADA RECOMMENDATION SEE BELOW Normal [facility] Comment on above: Result Comment: ADA RECOMMENDED LIMIT 4.0 - 6.0 ADA THERAPEUTIC TARGET < 7.0 ACTION SUGGESTED > 7.0 Performed By: #### B MP, LIPID, ALT, URIC #### [facility] [address] [address] [address] Jorge L Carey Glucose [Mass/Vol] 160 mg/dL Normal [facility] Comment on above: Performed By: #### B MP, LIPID, ALT, URIC #### [facility] [address] [address] [address] Jorge L Carey HbA1c (Bld) [Mass fraction] 7.2 % Critically high 4.5-6.2 [facility] Comment on above: Performed By: #### B MP, LIPID, ALT, URIC #### [facility] [address] [place] [address] Dr. Jorge L Carey GLYCOHEMOGLOBIN A1Con 2021 ADA RECOMMENDATION ADA THERAPEUTIC TARGET 6.0 - 7.0 ACTION SUGGESTED > 7.0 Normal [facility] Comment on above: Performed By: #### B MP, LIPID, ALT, URIC #### [facility] [address] [address] [address] Jorge L Carey Glucose [Mass/Vol] 177 mg/dL Normal [facility] Comment on above: Performed By: #### B MP, LIPID, ALT, URIC #### [facility] [address] [address] [address] Jorge L Carey HbA1c (Bld) [Mass fraction] 7.8 % Critically high <=6.0 [facility] Comment on above: Performed By: #### B MP, LIPID, ALT, URIC #### [facility] [address] [place] [address] Dr. Jorge L Carey [facility] 09-17-2020 Glucose [Mass/Vol] 151 mg/dL Normal [facility] Comment on above: Result Comment: PERF ORMED BY: [address] [place] [address] PATHOLOGIST PRICE ANALYST SUSAN SEXTON M.D. Performed By: #### O UTREACH GLYCO #### [facility] [address] [place] [address] [facility] HbA1c (Bld) [Mass fraction] 6.9 % High 4.3-5.6 [facility] Comment on above: Result Comment: Incr eased risk for diabetes: 5.7 - 6.4 diabetes: >6.4 glycemic control for adults with diabetes: <7.0 Performed By: #### O UTREACH GLYCO #### [facility] [address] [place] [address] [facility] Vital Signs Date Time Vital Sign Value Performing Clinician Facility 02-18-2024 09:37-0400 Body height 190.[address] [facility] 02-18-2024 09:37-0400 Body mass index (BMI) [Ratio] 32.1 kg/m2 [facility] 02-18-2024 09:37-0400 Body weight 116.[address] [facility] 02-18-2024 09:37-0400 Diastolic blood pressure 81 mm[Hg] [facility] 02-18-2024 09:37-0400 Heart rate 76 /min [facility] 02-18-2024 09:37-0400 Respiratory rate 12 /min [facility] 02-18-2024 09:37-0400 Systolic blood pressure 136 mm[Hg] [facility] 10-18-2023 09:06-0400 Body height 190.[address] [facility] 10-18-2023 09:06-0400 Body mass index (BMI) [Ratio] 31.8 kg/m2 [facility] 10-18-2023 09:06-0400 Body weight 115.[address] [facility] 10-18-2023 09:06-0400 Diastolic blood pressure 77 mm[Hg] [facility] 10-18-2023 09:06-0400 Heart rate 80 /min [facility] 10-18-2023 09:06-0400 Respiratory rate 12 /min [facility] 10-18-2023 09:06-0400 Systolic blood pressure 116 mm[Hg] [facility] 07-08-2023 09:00-0500 Body height 190.5 cm Bogdan Ball Other [employer] Other 07-08-2023 09:00-0500 Body mass index (BMI) [Ratio] 32.62 kg/m2 Bogdan Ball Other [employer] Other 07-08-2023 09:00-0500 Body weight 118.39 kg Bogdan Ball Other [employer] Other 07-08-2023 09:00-0500 Diastolic blood pressure 81 mm[Hg] Bogdan Ball Other [employer] [facility] Other 07-08-2023 09:00-0500 Respiratory rate 12 /min Bogdan Ball Other [employer] Other 07-08-2023 09:00-0500 Systolic blood pressure 117 mm[Hg] Bogdan Ball Other [employer] Other 05-01-2023 08:30-0500 Body height 190.5 cm Bogdan Ball Other [employer] [facility] Other 05-01-2023 08:30-0500 Body mass index (BMI) [Ratio] 32.19 kg/m2 Bogdan Ball Other [facility] Other 05-01-2023 08:30-0500 Body weight 116.85 kg Bogdan Ball Other [employer] Other 05-01-2023 08:30-0500 Diastolic blood pressure 81 mm[Hg] Bogdan Ball Other [employer] Other 05-01-2023 08:30-0500 Respiratory rate 12 /min Bogdan Ball Other [employer] [facility] Other 05-01-2023 08:30-0500 Systolic blood pressure 135 mm[Hg] Bogdan Ball Other [employer] Other 12-26-2022 08:30-0400 Body height 190.5 cm Bogdan Ball Other [employer] Other 12-26-2022 08:30-0400 Body mass index (BMI) [Ratio] 31.54 kg/m2 Bogdan Ball Other [facility] Other 12-26-2022 08:30-0400 Body weight 114.49 kg Bogdan Ball Other [employer] Other 12-26-2022 08:30-0400 Diastolic blood pressure 85 mm[Hg] Bogdan Ball Other [facility] Other 12-26-2022 08:30-0400 Respiratory rate 12 /min Bogdan Ball Other [employer] Other 12-26-2022 08:30-0400 Systolic blood pressure 139 mm[Hg] Bogdan Ball Other [employer] Other 11-09-2022 10:58-0400 Blood Pressure Location Hola GARCIA [facility] 11-09-2022 10:58-0400 Diastolic blood pressure 80 mm[Hg] Hola GARCIA [facility] 11-09-2022 10:58-0400 Heart rate 78 /min Hola GARCIA [facility] 11-09-2022 10:58-0400 Respiratory rate 16 /min Holaconnor GARCIA [facility] 11-09-2022 10:58-0400 Systolic blood pressure 130 mm[Hg] Hola GARCIA [facility] 10-05-2022 12:15-0400 Body height 190.5 cm Bogdan Ball Other [employer] Other 10-05-2022 12:15-0400 Body mass index (BMI) [Ratio] 31.17 kg/m2 Bogdan Ball Other [employer] Other 10-05-2022 12:15-0400 Body weight 113.13 kg Bogdan Ball Other [employer] Other 10-05-2022 12:15-0400 Diastolic blood pressure 95 mm[Hg] Bogdan Ball Other [employer] Other 10-05-2022 12:15-0400 Respiratory rate 12 /min Bogdan Ball Other [employer] [facility] Other 10-05-2022 12:15-0400 Systolic blood pressure 168 mm[Hg] Bogdan Ball Other [employer] Other 08-23-2022 08:30-0500 Body height 190.5 cm Bogdan Ball Other [employer] [facility] Other 08-23-2022 08:30-0500 Body mass index (BMI) [Ratio] 31.42 kg/m2 Bogdan Ball Other [employer] Other 08-23-2022 08:30-0500 Body weight 114.04 kg Bogdan Ball Other [employer] Other 08-23-2022 08:30-0500 Diastolic blood pressure 86 mm[Hg] Bogdan Ball Other [facility] [employer] Other 08-23-2022 08:30-0500 Respiratory rate 12 /min Bogdan Green Other [facility] [employer] Other 08-23-2022 08:30-0500 Systolic blood pressure 132 mm[Hg] Bogdan Green Other [facility] [employer] Other 10-06-2021 08:14-0400 Blood Pressure Location Hola GARCIA [facility] 10-06-2021 08:14-0400 Diastolic blood pressure 98 mm[Hg] Holaconnor GARCIA [facility] 10-06-2021 08:14-0400 Heart rate 78 /min Holaconnor GARCIA [facility] 10-06-2021 08:14-0400 Systolic blood pressure 145 mm[Hg] Hola GARCIA [facility] Encounters Encounter Date Encounter Type Care Provider Facility Start: 04-03-2024 ambulatory Hola GARCIA Facili ty:[facility] Start: 02-18-2024 End: 02-18-2024 ambulatory [facility] Work Phone: Start: 02-18-2024 End: 02-18-2024 Patient encounter procedure [facility] Work Phone: Start: 02-11-2024 Non-patient / Non-visit [facility] [facility] Work Phone: Start: 10-18-2023 End: 10-18-2023 ambulatory [facility] Work Phone: Start: 10-18-2023 End: 10-18-2023 Patient encounter procedure [facility] Phys[facility] Work Phone: Start: 10-12-2023 Non-patient / Non-visit [facility] Work Phone: Start: 08-23-2023 Non-patient / Non-visit [facility] Work Phone: Start: 08-19-2023 End: 08-20-2023 ambulatory Dm Cyr MD Facility: [facility] Start: 08-16-2023 Non-patient / Non-visit [facility] Work Phone: Start: 07-30-2023 Non-patient / Non-visit [facility] Work Phone: Start: 07-29-2023 End: 07-30-2023 ambulatory Dm Cyr MD [employer] Other Start: 07-29-2023 Telephone encounter Bogdan Green [facility] Start: 07-15-2023 End: 07-16-2023 ambulatory Dm Cyr MD Facility: [facility] Start: 07-08-2023 End: 07-08-2023 ambulatory Bogdan Green Other [employer] Other Start: 07-08-2023 Office outpatient vi sit 25 minutes Bogdan Green [facility] Start: 06-24-2023 End: 06-25-2023 ambulatory Dm Cyr MD Facility:[facility] Start: 05-20-2023 End: 05-21-2023 ambulatory Dm Cyr MD Facility: [facility] Start: 05-10-2023 End: 05-10-2023 ambulatory Bogdan Green Other [employer] Other Start: 05-10-2023 Office outpatient vi sit 15 minutes Bogdan Ball [facility] Start: 05-01-2023 End: 05-01-2023 ambulatory Bogdan Green Other [employer] Other Start: 05-01-2023 Patient encounter procedure Bogdan Green [facility] Start: 04-24-2023 End: 04-24-2023 ambulatory Bogdan Green Other [employer] Other Start: 04-24-2023 Telephone encounter Bogdan Ball [facility] Start: 02-25-2023 End: 02-25-2023 ambulatory Bogdan Peter Other [employer] Other Start: 02-25-2023 Telephone encounter Bogdan Green [facility] Start: 12-27-2022 End: 12-27-2022 ambulatory Bogdan Green Other [employer] Other Start: 12-27-2022 Telephone encounter Bogdan Ball [facility] Start: 12-26-2022 End: 12-26-2022 ambulatory Bogdan Green Other [employer] Other Start: 12-26-2022 Office outpatient vi sit 25 minutes Bogdan Green [facility] Start: 11-19-2022 End: 11-19-2022 ambulatory Bogdan Green Other [employer] Other Start: 11-19-2022 Telephone encounter Bogdan Ball [facility] Start: 11-09-2022 End: 11-09-2022 Patient encounter procedure Hola GARCIA [facility] Start: 10-22-2022 End: 10-22-2022 ambulatory Bogdan Green Other [employer] Other Start: 10-22-2022 Telephone encounter Bogdan Ball [facility] Start: 10-18-2022 End: 10-18-2022 ambulatory Bogdan Peter Other [employer] Other Start: 10-18-2022 Telephone encounter Bogdan Peter [facility] Start: 10-05-2022 End: 10-05-2022 ambulatory Bogdan Green Other [employer] Other Start: 10-05-2022 Office outpatient vi sit 15 minutes Bogdan Peter [facility] Start: 09-27-2022 End: 09-27-2022 ambulatory Bogdan Green Other [employer] Other Start: 09-27-2022 Telephone encounter Bogdan Green [facility] Start: 09-25-2022 End: 09-25-2022 ambulatory Bogdan Green Other [employer] Other Start: 09-25-2022 Telephone encounter Bogdan Green [facility] Start: 09-21-2022 End: 09-21-2022 ambulatory Bogdan Green Other [employer] Other Start: 09-21-2022 Telephone encounter Bogdan Green [facility] Start: 08-23-2022 End: 08-23-2022 ambulatory Bogdan Green Other [employer] Other Start: 08-23-2022 Office outpatient vi sit 25 minutes Bogdan Green [facility] Start: 08-17-2022 End: 08-18-[address] BOGDAN GREEN Facility:[facility] Start: 08-14-2022 End: 08-14-2022 ambulatory Bogdan Green Other [employer] Other Start: 08-14-2022 Telephone encounter Bogdan Green [facility] Start: 07-01-2022 End: 07-01-[address] BOGDAN GREEN Facility:[facility] Start: 04-25-2022 Adult health examination Bogdan Green Other [employer] Other Start: 04-18-2022 End: 04-19-[address] BOGDAN GREEN Facility:[facility] Start: 01-20-2022 End: 01-21-2022 ambulatory NONE LISTED REQUEST Facility:[facility] Start: 10-06-2021 End: 10-06-2021 Patient encounter procedure Hola GARCIA [facility] Start: 09-16-2021 End: 09-17-[address] HOLA GARCIA . Facility:[facility] Start: 09-15-2021 End: 09-16-2021 ambulatory NONE LISTED REQUEST Facility:[facility] Start: 08-29-[address] BOGDAN GREEN Facili ty:[facility] Procedures Date Procedure Procedure Detail Performing Clinician Start: 09-16-[address] NORRIS GREEN Comment on above: Performed By: #### B MP, LIPID, ALT, URIC #### [facility] [address] [place] [address] Dr. Jorge L Carey Start: 03-29-2017 General [...] Care Activity Detail Author US Heart Transthoracic [facility] XR Chest 2 Views [facility] Immunizations Immunization Date Immunization Notes Care Provider Fa cility 04-29-2023 zoster vaccine recombinant Bogdan Green Other [facility] 04-26-2023 influenza virus vaccine, unspecified formulation [facility] 04-26-2023 influenza, high dose seasonal, preservative-free Bogdan Green Other [employer] Other 02-26-2023 zoster vaccine recombinant Bogdan Green Other [facility] 04-25-2022 pneumococcal 20-alber nt conjugate vaccine Hola GARCIA [facility] 04-16-2022 influenza virus vaccine, split virus (incl. purified surface antigen) Bogdan Green Other [employer] Other 04-16-2022 influenza virus vaccine, unspecified formulation Hola GARCIA [facility] 03-23-2022 SARS-CoV-2 (COVID-19 ) [id number] Hola GARCIA [facility] 05-08-2021 SARS-CoV-2 (COVID-19 ) mRNA BNT-162b2 vax Hola GARCIA [facility] 04-22-2021 influenza virus vaccine, split virus (incl. purified surface antigen) Bogdan Green Other [facility] Other 04-22-2021 influenza virus vaccine, unspecified formulation Hola GARCIA [facility] 03-30-2021 influenza virus vaccine, unspecified formulation Hola GARCIA [facility] 09-16-2020 COVID-19, mRNA, LNP- S, PF, 30 mcg/0.3 mL dose; 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: [[employer] COVID-19 Vaccine] Hola GARCIA [facility] Comment on above: Reason for Medicatio n: Prophylaxis 08-26-2020 COVID-19, mRNA, LNP- S, PF, 30 mcg/0.3 mL dose; 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: [Pfizer-BioNTech COVID-19 Vaccine] Hola GARCIA [facility] Comment on above: Reason for Medicatio n: Prophylaxis 04-16-2020 influenza virus vaccine, split virus (incl. purified surface antigen) Bogdan Green Other [facility] Other 04-16-2020 influenza virus vaccine, unspecified formulation Hola GARCIA [facility] pneumococcal Conjuga te, unspecified formulation; 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: [Need for prophylactic vaccination against Streptococcus pneumoniae (pneumococcus)] Bogdan Green Other [facility] Other Payers Date Payer Category Payer Medicare 2022 Unknown 2021 Medicare [id number] 2020 Unknown [id number] 1959 Medicare [id number] 1959 Self-pay [id number] 1959 Unknown [id number] 1959 Unknown [id number] 1956 Unknown [id number] .16.84 [id number] 1956 Unknown [id number] .16.84 [id number] 1956 Unknown [id number] .16.84 [id number] 1956 Unknown [id number] .16.84 [id number] 1956 Unknown [id number] 2.16.84 [id number] 1956 Unknown [id number] 2.16. [id number] 1956 Unknown [id number] 2.16. [id number] 1956 Unknown [id number] 2.16. [id number] 1956 Unknown [id number] 2.16. [id number] 1956 Unknown [id number] 2.16. [id number] 1956 Unknown [id number] 2.16.8 [id number] Blue Cross Blue Shield [id number] Self-pay Self Pay [id number] Unknown [id number] 2.16.84 [id number] Unknown [id number] 2.16.84 [id number] Social History Date Type Detail Facility Start: 10-06-2021 End: 07-27-2023 Tobacco smoking status Never smoked tobacco (finding) [facility] Sex Assigned At Male [facility] Tobacco smoking status Never [facility] Start: 1955 Sex Assigned At Male F [facility] Medical Equipment Procedure Code Equipment Code [...] 11-09-2022 Functional Status N/A [facility] Clinical Notes 10-06-2021 to 07-29-2023 Note Date & Type Note Facility 07-29-2023 Evaluation note Encounter Date Diagnosis Assessment Notes Jul, Type 2 diabetes mellitus with hyperglycemia , without long-term current use of insulin (ICD-10 - E11.65) [facility] Other 01-22-2024 Evaluation note* Encounter Date Diagnosis [...] index [BMI] 32.0-32.9, adult (ICD-10 - Z68.32) [facility] Other 11-24-2023 Evaluation note* Encounter Date Diagnosis [...] Microalbumin, Dilated eye exam and Foot exam [facility] Other 11-15-2023 Evaluation note* Encounter Date Diagnosis [...] flares Sep, Thrombocytopenia, unspecified (ICD-10 - D69.6) [facility] Other 11-15-2023 Evaluation note* Encounter Date Diagnosis [...] flares Sep, Thrombocytopenia, unspecified (ICD-10 - D69.6) [facility] Other 11-08-2023 Evaluation note* Encounter Date Diagnosis Assessment Notes Treatment Notes Treatment Clinical Notes Apr, Screening PSA (prostate specific antigen) (ICD-10 - Z12.5) Apr, Type 2 diabetes mellitus with hyperglycemia, without long-term current use of insulin (ICD-10 - E11.65) Apr, Elevated cholesterol (ICD-10 - E78.00) Apr, Primary hypertension (ICD-10 - I10) Sep, Thrombocytopenia, unspecified (ICD-10 - D69.6) Thrombocytopenia [employer] Other 07-12-2023 Evaluation note* Encounter Date Diagnosis [...] (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 (ICD-10 - Z79.4) [facility] Other 05-26-2023 Hospital Discharge instructions Patient Education [...] treatment? Where to find more information [employer]: www.cancer.org [employer]: www.auanet.org Contact a health care [...] provider. Document Revised: 11/27/2021 Document Reviewed: 11/27/2021 [employer] Patient Education 2022 [employer]. Follow Up Care 10/06/2021 08:40:21 With:JOSE MCMANUS, Hola Rushing, URL Address: [facility] [address] [place] [address]- When: Unknown [facility] 05-08-2023 Evaluation note* Encounter Date Diagnosis Assessment Notes Treatment Notes Treatment Clinical Notes October, Primary hypertension (ICD-10 - I10) [facility] Other 05-04-2023 Evaluation note* Encounter Date Diagnosis Assessment Notes Treatment Notes Treatment Clinical Notes October, Primary hypertension (ICD-10 - I10) [facility] [facility] Other 04-21-2023 Evaluation note* Encounter Date Diagnosis [...] and Glimepiride appear to be controlling BS. 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) [employer] [facility] Other 04-11-2023 Evaluation note* Encounter Date Diagnosis Assessment Notes Treatment Notes Treatment Clinical Notes Sep, Type 2 diabetes mellitus with hyperglycemia, without long-term current use of insulin (ICD-10 - E11.65) [facility] Other 04-07-2023 Evaluation note* Encounter Date Diagnosis Assessment Notes Treatment Notes Treatment Clinical Notes Sep, Type 2 diabetes mellitus with hyperglycemia (ICD-10 - E11.65) [facility] Other 03-09-2023 Evaluation note* Encounter Date Diagnosis [...] Reviewed red flag symptoms and nerve impingement [facility] Other 02-28-2023 Evaluation note* Encounter Date Diagnosis Assessment Notes Treatment Notes Treatment Clinical Notes Jul, Type 2 diabetes mellitus with hyperglycemia, without long-term current use of insulin (ICD-10 - E11.65) [facility] Other 04-22-2022 Hospital Discharge instructions Patient Education [...] urethra. Follow these instructions at home: Take qwfr-dse-nuwqzkp and prescription medicines only as told by [...] 06/03/2006 Document Revised: 04/28/2019 Document Reviewed: 07/08/2017 [employer] Patient Education 2020 [employer]. Follow Up Care 10/03/2020 15:00:49 With:Hola GARCIA MD, URL Address: [facility] [address] [place] [address]- [phone] When:10/06/2022 [facility] evaluation + Plan note Future Appointments Appointment Date:10/12/2022 08:00:00 AM Scheduled Provider:Hola GARCIA MD Location:[facility] Appointment Type:URO Office Visit Diagnostic Tests Pending * PSA Total 10/06/21 [facility] evaluation + Plan note Future Appointments Appointment Date:11/18/2023 08:45:00 AM Scheduled Provider:Hola GARCIA MD Location:[facility] Appointment Type:URO Office Visit Diagnostic Tests Pending * PSA Free & Total 11/09/22 [facility] evaluation noteNort [employer] Other [facility]No [facility] [employer] Other Evaluation note* Diagnosis Onset Date Resolution Status Elevated cholesterol acute Gastroesophageal reflux dise ase with esophagitis without hemorrhage acute Obesity acute Primary hypertension acute Spondylosis without myelopat hy or radiculopathy, lumbar region acute Type 2 diabetes mellitus with hyperglycemia acute [facility] Work Phone: Evaluation note* Diagnosis Onset Date Resolution Status Elevated cholesterol acute Gastroesophageal reflux dise ase with esophagitis without hemorrhage acute Primary hypertension acute Spondylosis without myelopat hy or radiculopathy, lumbar region acute Type 2 diabetes mellitus with hyperglycemia acute [facility] Work Phone: [facility] general Narrative - Reported* Type Description Date [...] CYSTOSCOPY 2016 Hospitalization History SEE SURGICAL HX [facility] Other [facility] - [facility] [employer] Other [facility] general Narrative - Reported* Type Description Date [...] CYSTOSCOPY 2016 Hospitalization History SEE SURGICAL HX [employer] Other Hospital course Narrative No data available for this section [facility] progress note No data available for this section [facility] Summary Purpose Family History Relationship Condition Age [...] well ness visit, initial (Z00.00) Referral Organization [facility] Peter de la cruz Referring Provider First Name Bogdan Referring Provider Last Name Peter Referring Provider Specialty Internal Me dicine Referred Organization [facility] Referred Provider Swapnil French Referred Address [address] [place], [place],[address] Referred Provider Specialty Pain Medicin e Referral [...] Notes Include XR lumbar sp ine f: [id number] Chief Complaint and Reason for Visit Chief [...] section and content) DATE CREATED AUTHOR 07/30/[address] [facility] DATE CREATED AUTHOR AUTHOR'S ORGANIZ ATION 08/22/2022 [facility] DATE CREATED AUTHOR AUTHOR'S ORGANIZ ATION 08/23/2023 [facility] DATE CREATED AUTHOR AUTHOR'S ORGANIZ ATION 11/14/2023 [facility] REASON FOR VISIT (unrecogniz ed section and content) BS readingsElevated blood cifuentes [id number] [facility]ness[facility]absLab ResultsBP readingsrefillelevated BPMedication4 MONTH FOLLOW UP [...] ON THE PRIMARY CLINICAL RECORDS. [facility] Independent IP [facility]. provides no warranty or guarantee of the accuracy or completeness of information in this document.
--- NOTE | 2024-03-25 10:46 | PM.CN ---
Consult Note: HPI Data of Consult Patient: known to practice within the last 3 years Consult date: 05/20/23 Requesting Physician: Radha Cope NP Primary Care Provider: Bogdan Green DO Family Provider: f/u Consult Narrative Reason for consult: f/u Narrative: 68yom who presents for evaluation. worsening axial low back pain that has persisted for >1 year. underwent physical therapy in the summer and continues in a course of provider directed home exercises, which have not provided significant relief for >6 weeks >3x/week. imaging reviewed, significant for facet arthropathy in lower lumbar spine. uses otc pain meds as needed. Patient recently underwent bilateral L4-5 L5-S1 thermal RFA with moderate improvement ongoing, patient notices improvement in ambulation. Pain today 2/10 in low back increasing to 6/10 with standing and walking. improved with forward flexion and upon sitting. cc:: CC: Radha Cope NP Review of Systems ROS Status of ROS 10 or more systems reviewed and unremarkable except as noted in history and below Musculoskeletal Reports: back pain PFSH PFSH Medical History History of stress test ?Z92.89 - Personal history of other medical treatment (ICD-10) Acid reflux ?K21.9 - Gastro-esophageal reflux disease without esophagitis (ICD-10) Diabetes ?E11.9 - Type 2 diabetes mellitus without complications (ICD-10) HTN (hypertension) ?I10 - Essential (primary) hypertension (ICD-10) Surgical History History of hernia repair ?Z98.890 - Other specified postprocedural states (ICD-10) ?Z87.19 - Personal history of other diseases of the digestive system (ICD-10) Meds Home Medications and Allergies Home Medications ?Medication ?Instructions ?Recorded ?Confirmed ?Type allopurinol 100 mg tablet 100 mg PO DAILY 06/14/23 08/19/23 History amlodipine 5 mg tablet 5 mg PO DAILY 06/14/23 08/19/23 History atorvastatin 10 mg tablet 10 mg PO DAILY 06/14/23 08/19/23 History benazepril 5 mg tablet 20 mg PO DAILY 06/14/23 08/19/23 History finasteride 5 mg tablet 5 mg PO DAILY 06/14/23 08/19/23 History glimepiride 4 mg tablet 4 mg PO DAILY 06/14/23 08/19/23 History insulin glargine 100 unit/mL (3 25 unit subcut DAILY 06/14/23 08/19/23 History mL) subcutaneous pen (Lantus Solostar U-100 Insulin) latanoprost 0.005 % eye drops 1 drp ophthalmic (eye) DAILY 06/14/23 08/19/23 History metformin 1,000 mg tablet 1,000 mg PO BID 06/14/23 08/19/23 History tamsulosin 0.4 mg capsule 0.4 mg PO Q24H 06/14/23 08/19/23 History cetirizine 10 mg capsule (All Day 10 mg PO DAILY PRN allergy symptoms 06/24/23 08/19/23 History Allergy (cetirizine)) omeprazole 10 mg capsule,delayed 10 mg PO DAILY 06/24/23 08/19/23 History release dulaglutide 0.75 mg/0.5 mL 0.75 mg subcut QWEEK 08/07/23 08/07/23 History subcutaneous pen injector (Trulicity) Allergies Allergy/AdvReac Type Severity Reaction Status Date / Time No Known Drug Allergies Allergy Verified 07/29/23 09:29 Exam Constitutional Documenting provider has reviewed patient's vital signs: yes Common normals: no apparent distress, oriented x3, healthy appearing, alert and well nourished General appearance: cooperative [facility] Common normals: normocephalic, hearing grossly normal bilaterally and moist oral mucous membranes Head and scalp: normocephalic Eye Common normals: PERRL Pupil: PERRL Neck & C-Spine Common normals: full ROM General: normal visual inspection Chest Common normals: inspection of chest normal Respiratory Common normals: normal respiratory effort, no retractions and no use of accessory muscles Back & Pelvis Lumbar spine/lower back: lumbar ROM normal, lumbar spinal tenderness and straight leg raise negative bilaterally; no pain with ROM Sacroiliac joints: SI joints normal Other: negative PSIS, 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 and gaenslens mildly positive facet loading increased low back pain with standing and walking, improved with forward flexion Extremity Common normals: normal to inspection and full ROM Neuro Common normals: oriented x3, CN's II-XII intact bilaterally, moves all extremities, no focal motor deficits, no sensory deficits noted and deep tendon reflexes 2+ bilaterally Sensorium/orientation: alert Motor exam: strength 5/5 throughout and no movement abnormalities noted Psych Common normals: mental status grossly normal, thought process normal, cooperative, affect normal, speech normal and activity/motor behavior normal Speech: normal speech Thought process: normal thought process Results Additional Findings Additional findings: If on a controlled substance or opioids, I have checked an OARRS report on this patient and there are no aberrancies noted in the prescribing history.??If on a controlled substance or opioid a drug screen was completed and reviewed within the last year, and if there has not been a drug screen completed we ordered one today to monitor higher risk, state monitored pain medication use. As part of providing excellent, safe, comprehensive care, the following was completed at our patient's visit: 1. A medication reconciliation and review to ensure accurate knowledge of current/active medications, including asking our patients to inform us about any [id number] medications or herbal remedies/nutritional supplements/alternative remedies. 2. A review to specifically ensure our patients have had annual screening for screening for depression, screening for tobacco use, and screening for unhealthy alcohol use. For concerning screenings had a discussion with the patient, provided patient education, and recommended follow-up with primary care provider when appropriate. If patient noted with a risk of falling, they received education on strength, gait, and balance training to prevent future risk of falling. Assessment and Plan Assessment and Plan (1) Lumbar stenosis with neurogenic claudication: (2) Lumbar spondylosis: (3) Bilateral sacroiliitis: Plan update lumbar MRI without contrast to assess lumbar stenosis with NC unresponsive to heat/ice, NSAIDs, tylenol, >6 weeks of PT/giuded HEP. essential to evaluate stenosis for interventional therapy vs NS consult. pt nervous to complete MRI, i did offer valium 10mg PO 30-60mins prior to MRI. 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
== END 2024-03-25 10:20 | disposition home or self-care (01) ==
LOC: PM 10:20
PROVIDERS: PCP Internal Medicine; Visit Provider Nurse Practitioner
DX: M48.062 Spinal stenosis, lumbar region with neurogenic claudication (principal); M47.816 Spondylosis without myelopathy or radiculopathy, lumbar region; M46.1 Sacroiliitis, not elsewhere classified
CPT/HCPCS: G0463

== ENCOUNTER 2024-03-30 06:16 | Outpatient (OUT) | payer MEDICARE, BC, SELFPAY ==
--- NOTE | 2024-03-30 | MR_ITS ---
[address] [address] Patient Name: FELIPE QUAN MRN: [id number] date: 1955 Sex: M Assigned Patient Location: MRI Current Patient Location: MRI Accession/Order Number: [id number] Exam Date: 03/30/2024 06:40 Report Date: 03/30/2024 08:23 At the request of: KIMBERLY HERNANDEZ Procedure: MR lumbar spine wo con EXAMINATION: MR lumbar spine wo con HISTORY: Lumbar stenosis COMPARISON: No relevant comparison available. TECHNIQUE: A variety of imaging planes and parameters were utilized for visualization of suspected pathology. FINDINGS: For the purposes of numbering, sagittal T2 image # 8 extends from the T11 vertebral body superiorly to the S2 level inferiorly. PARASPINAL AREA: Normal with no visible mass. BONES: Normal alignment with no acute fracture or spondylolisthesis. Heterogeneous marrow signal likely age-related change. r area of focal signal abnormality in the L1 vertebral body measuring 1.4 cm likely hemangioma CORD/CAUDA EQUINA: Normal caliber, contour, and signal intensity. DISC LEVELS: 12-L1: No significant disc/facet abnormality, spinal stenosis, or foraminal stenosis. L1-L2: No significant disc/facet abnormality, spinal stenosis, or foraminal stenosis. L2-L3: Disc desiccation. No disc bulge or herniation. No central or foraminal stenosis L3-L4: Disc desiccation. No disc bulge or herniation. No central or foraminal stenosis L4-L5: Disc desiccation. Mild posterior disc/osteophyte complex. Moderate to severe ligamentum flavum hypertrophy and facet osteoarthropathy. Moderate to severe trefoil narrowing of the central canal best seen on axial T2 image 26. No foraminal stenosis L5-S1: Moderate to severe disc space narrowing and disc desiccation. Moderate diffuse disc/osteophyte complex. Moderate ligamentum flavum hypertrophy and facet osteoarthropathy. No central canal stenosis. Mild right and minimal left foraminal stenosis MR/MR lumbar spine wo con IMPRESSION: Degenerative changes most significant at L4-L5 and L5-S1 with central and foraminal stenosis detailed above Electronically authenticated by: FILIPPO MENDOZA Date: 03/30/2024 08:23
--- OUTSIDE RECORDS SUMMARY | 2024-03-30 06:20 | XMS_ITS | CCD ---
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 Name Role Phone BOGDAN GREEN Primary Care [...] physicia Propensity to adverse reactions 6 Comment:Done Songza Other (1 source) No Known Medication Allergies; 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: [No Known Medication Allergies] Propensity to adverse reactions (disorder) [facility] Repository Medications Current Medications Medication [...] day(s), # 90 tab(s), Refills(s) 3, Pharmacy: [facility]/pharmacy #[id number], 195, cm, 11/09/22 11:00:00 EDT, Height/Length Dosing, 111, kg, 11/09/22 11:00:00 EDT, Weight Dosing Start Date: 11/09/22 Stop Date: 11/04/23 Status: Ordered Start: 10-06-2021 take 1 tablet by osbaldo th once daily finasteride 5 mg Tab 5 mg = 1 tab(s), Oral, Daily, # 90 tab(s), Refills(s) 3, Pharmacy: [facility]/pharmacy #[id number], 195, cm, 10/06/21 8:16:00 EDT, Height/Length [...] bid for 5 days Apr, Active Pen H[place]dal 5/16 (15 sources) Start: 09-27-2022 Start: 09-27-2022 Pen Hitterdal 5/ 16 Use to inject insulin qd [...] acid 4700 mg / polyethylene glycol 3350 [id number] mg / potassium chloride 1015 mg / [...] 05-09-2015 Chronic Other aftercare (1 source) 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; 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: [OTH SHAREHOLDER CURRENT DRUG THERAPY] Onset: 07-03-2022 Episodic Other aftercare (1 source) 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 - Hematology and Cell countson 02-11-2024 HbA1c (Bld) [Mass fraction] 7.5 % High 4.5-6.2 [facility] Comment on above: ADA RECOMMENDED LIMI T 4.0 - 6.0ADA THERAPEUTIC TARGET < 7.0ACTION SUGGESTED> 7.0 Glucose mean value [Mass/vol ume] in Blood Estimated from glycated hemoglobinon 10-12-2023 Average glucose Estimated from glycated hemoglobin (Bld) [Mass/Vol] 180 mg/dL [facility] - Hematology and Cell countson 10-12-2023 HbA1c (Bld) [Mass fraction] 7.9 % 4.5-6.2 [facility] Comment on above: ADA RECOMMENDED LIMI T 4.0 - 6.0ADA THERAPEUTIC TARGET < 7.0ACTION SUGGESTED> 7.0 GLYCOHEMOGLOBIN A1Con 2022 ADA RECOMMENDATION SEE BELOW Normal [facility] Comment on above: Result Comment: ADA RECOMMENDED LIMIT 4.0 - 6.0 ADA THERAPEUTIC TARGET < 7.0 ACTION SUGGESTED > 7.0 Performed By: #### B MP, LIPID, ALT, URIC #### [facility] [address] [place] [address] Dr. Jorge L Carey Glucose [Mass/Vol] 148 mg/dL Normal [facility] Comment on above: Performed By: #### B MP, LIPID, ALT, URIC #### [facility] [address] [address] [address] Jorge L Carey HbA1c (Bld) [Mass fraction] 6.8 % Critically high 4.5-6.2 [facility] Comment on above: Performed By: #### B MP, LIPID, ALT, URIC #### [facility] [address] [address] [address] Jorge L Carey CARDIAC DANAY ADMITon 023 CK [Catalytic activity/Vol] 59 U/L Normal 39-308 [facility] Comment on above: Performed By: #### C MP, CMADM #### [facility] [address] [address] [address] Jorge L Carey CK.MB [Mass/Vol] 0.99 ng/mL Normal <=3.60 [facility] Comment on above: Performed By: #### C MP, CMADM #### [facility] [address] [place] [address] Dr. Jorge L Carey HSTROP 10.0 pg/mL Normal 4.0-76.1 [facility] Comment on above: Result Comment: CUT- OFF POINTS HAVE BEEN ESTABLISHED BASED ON THE FOURTH UNIVERSAL DEFINITIONS OF MYOCARDIAL INFARCTION. THE UPPER REFERENCE LIMIT (URL) OF TROPONIN, DEFINED THE 99TH PERCENTILE OF cTnI DISTRIBUTION IN A REFERENCE POPULATION, HAS BEEN CONFIRMED THE DECISION THRESHOLD FOR [place] DIAGNOSIS. Performed By: #### C MP, CMADM #### [facility] [address] [place] [address] Dr. Jorge L Carey GARLAND 52 ng/mL Normal 16-96 [facility] Comment on above: Performed By: #### C MP, CMADM #### [facility] [address] [place] [address] Dr. Jorge L Carey CBC AUTO DIFFon 07-01-2022 BASO # 0.0 103/ul Normal 0.0-0.1 [facility] Comment on above: Performed By: #### B MP, LIPID, ALT, URIC #### [facility] [address] [place] [address] Dr. Jorge L Carey Basophils/100 WBC (Bld) 0.3 % Normal 0.2-2.0 [facility] Comment on above: Performed By: #### B MP, LIPID, ALT, URIC #### [facility] [address] [place] [address] Dr. Jorge L Carey EO # 0.1 103/ul Normal 0.0-0.7 [facility] Comment on above: Performed By: #### B MP, LIPID, ALT, URIC #### [facility] [address] [place] [address] Dr. Jorge L Carey Eosinophils/100 WBC (Bld) 0.9 % Normal 0.9-7.0 [facility] Comment on above: Performed By: #### B MP, LIPID, ALT, URIC #### [facility] [address] [place] [address] Dr. Jorge L Carey Erythrocyte distribution width (RBC) [Ratio] 11.7 % Normal 11.0-15.0 [facility] Comment on above: Performed By: #### B MP, LIPID, ALT, URIC #### [facility] [address] [place] [address] Dr. Jorge L Carey Hematocrit (Bld) [Volume fraction] 41.1 % Critically low 42.0-54.0 [facility] Comment on above: Performed By: #### B MP, LIPID, ALT, URIC #### [facility] [address] [address] [address] Jorge L Carey Hemoglobin (Bld) [Mass/Vol] 14.5 g/dL Normal 14.0-18.0 [facility] Comment on above: Performed By: #### B MP, LIPID, ALT, URIC #### [facility] [address] [place] [address] Dr. Jorge L Carey IG # 0.02 10e3/ul Normal 0.00-0.03 [facility] Comment on above: Performed By: #### B MP, LIPID, ALT, URIC #### [facility] [address] [place] [address] Dr. Jorge L Carey IG % 0.3 % Normal 0.0-0.5 [facility] Comment on above: Performed By: #### B MP, LIPID, ALT, URIC #### [facility] [address] [place] [address] Dr. Jorge L Carey LYMPH # 1.1 103/ul Critically low 1.2-3.8 [facility] Comment on above: Performed By: #### B MP, LIPID, ALT, URIC #### [facility] [address] [place] [address] Dr. Jorge L Carey Lymphocytes/100 WBC (Bld) 16.6 % Critically low 20.5-60.0 [facility] Comment on above: Performed By: #### B MP, LIPID, ALT, URIC #### [facility] [address] [place] [address] Dr. Jorge L Carey MANUAL DIFF REQ NO Normal [facility] Comment on above: Performed By: #### B MP, LIPID, ALT, URIC #### [facility] [address] [place] [address] Dr. Jorge L Carey MCH (RBC) [Entitic mass] 30.1 pg Normal 25.9-34.0 [facility] Comment on above: Performed By: #### B MP, LIPID, ALT, URIC #### [facility] [address] [place] [address] Dr. Jorge L Carey MCHC (RBC) [Mass/Vol] 35.3 g/dL Critically high 29.9-35.2 [facility] Comment on above: Performed By: #### B MP, LIPID, ALT, URIC #### [facility] [address] [place] [address] Dr. Jorge L Carey MCV (RBC) [Entitic vol] 85.4 fL Normal 80.0-94.0 [facility] Comment on above: Performed By: #### B MP, LIPID, ALT, URIC #### [facility] [address] [place] [address] Dr. Jorge L Carey MONO # 0.4 103/ul Normal 0.3-0.8 [facility] Comment on above: Performed By: #### B MP, LIPID, ALT, URIC #### [facility] [address] [place] [address] Dr. Jorge L Carey Monocytes/100 WBC (Bld) 5.1 % Normal 1.7-12.0 [facility] Comment on above: Performed By: #### B MP, LIPID, ALT, URIC #### [facility] [address] [place] [address] Dr. Jorge L Carey NEUT # 5.3 103/ul Normal 1.4-6.5 [facility] Comment on above: Performed By: #### B MP, LIPID, ALT, URIC #### [facility] [address] [place] [address] Dr. Jorge L Carey Neutrophils/100 WBC (Bld) 76.8 % Critically high 43.0-75.0 [facility] Comment on above: Performed By: #### B MP, LIPID, ALT, URIC #### [facility] [address] [place] [address] Dr. Jorge L Carey Platelet mean volume (Bld) [Entitic vol] 12.1 fL Normal 9.5-13.5 [facility] Comment on above: Performed By: #### B MP, LIPID, ALT, URIC #### [facility] [address] [place] [address] Dr. Jorge L Carey PLT 147 103/ul Critically low 150-450 [facility] Comment on above: Performed By: #### B MP, LIPID, ALT, URIC #### [facility] [address] [place], [place] [address] Dr. Jorge L Carey RBC 4.81 106/ul Normal 4.70-6.10 [facility] Comment on above: Performed By: #### B MP, LIPID, ALT, URIC #### [facility] [address] [place], [place] [address] Dr. Jorge L Carey WBC 6.9 103/ul Normal 4.0-11.0 [facility] Comment on above: Performed By: #### B MP, LIPID, ALT, URIC #### [facility] [address] [place], [place] [address] [address] L [address] HEAD WO [...] MALENA LÓPEZ Date: 2022-07-01 20:24 Normal [facility] Covid-19 PCR (CVDTB)on 06-17 SARS-CoV-2 (COVID-19) RNA EDVIN+probe Ql (Unsp spec) Not detected Normal NOT DETECTED [facility] Comment on above: Result [...] for this test is supported by the [place] of Health and Human Service's declaration that [...] used). Performed By: #### C VDTBH #### [facility] [address] [place] [address] Dr. Jorge L Carey D-DIMERon 07-01-2022 D-DIMER 0.21 mg/L FEU Normal <=0.59 [facility] Comment on above: Performed By: #### B MP, LIPID, ALT, URIC #### [facility] [address] [place] [address] Dr. Jorge L Carey D-DIMER COMMENTS SEE BELOW Normal [facility] Comment on above: [...] #### B MP, LIPID, ALT, URIC #### [facility] [address] [place] [address] Dr. Jorge L Carey ER URINE PROFILEon 3 Bilirubin Ql (U) Negative Normal NEGATIVE [facility] Comment on above: Performed By: #### B MP, LIPID, ALT, URIC #### [facility] [address] [place] [address] Dr. Jorge L Carey Clarity (U) CLEAR Normal CLEAR [facility] Comment on above: Performed By: #### B MP, LIPID, ALT, URIC #### [facility] [address] [address] [address] Jorge L Carey Color (U) LT. YELLOW Normal YELLOW [facility] Comment on above: Performed By: #### B MP, LIPID, ALT, URIC #### [facility] [address] [address] [address] Jorge L Carey ERUAHD A micrscopic examination will be performed if indicated. Normal [facility] Comment on above: Performed By: #### B MP, LIPID, ALT, URIC #### [facility] [address] [address] [address] Jorge L Carey Glucose Ql (U) Negative Normal NEGATIVE [facility] Comment on above: Performed By: #### B MP, LIPID, ALT, URIC #### [facility] [address] [address] [address] Jorge L Carey Hemoglobin Ql (U) Negative Normal NEGATIVE [facility] Comment on above: Performed By: #### B MP, LIPID, ALT, URIC #### [facility] [address] [address] [address] Jorge L Carey Ketones Ql (U) Negative Normal NEGATIVE [facility] Comment on above: Performed By: #### B MP, LIPID, ALT, URIC #### [facility] [address] [address] [address] Jorge L Caery LEUKOCYTES Negative Normal NEGATIVE [facility] Comment on above: Performed By: #### B MP, LIPID, ALT, URIC #### [facility] [address] [address] [address] Jorge L Carey Nitrite Ql (U) Negative Normal NEGATIVE [facility] Comment on above: Performed By: #### B MP, LIPID, ALT, URIC #### [facility] [address] [address] [address] Jorge L Carey pH (U) 6.0 [pH] Normal 5-9 [facility] Comment on above: Performed By: #### B MP, LIPID, ALT, URIC #### [facility] [address] [place] [address] Dr. Jorge L Carey SPEC GRAVITY 1.020 Normal 1.005-<=1.025 [facility] Comment on above: Performed By: #### B MP, LIPID, ALT, URIC #### [facility] [address] [place] [address] Dr. Jorge L Carey UA PROTEIN Negative Normal NEGATIVE/ TRACE [facility] Comment on above: Performed By: #### B MP, LIPID, ALT, URIC #### [facility] [address] [place] [address] Dr. Jorge L Carey UR MICRO IND NOT INDICATED Normal [facility] Comment on above: Performed By: #### B MP, LIPID, ALT, URIC #### [facility] [address] [place] [address] Dr. Jorge L Carey Urobilinogen Qn (U) 1.0 {Ila'U}/dL Normal 0.2 - 1. 0 [facility] Comment on above: Performed By: #### B MP, LIPID, ALT, URIC #### [facility] [address] [place] [address] Dr. Jorge L Carey INFLUENZA A AND B AGon 07-01 [facility] SEE BELOW Normal [facility] Comment on above: Result Comment: Nega tive for Flu A protein angiten. Infection due to Flu A cannot be ruled out. Flu A angiten in the sample may be below the detection limit of the test. Performed By: #### I NFLUAB #### [facility] [address] [place] [address] Dr. Jorge L Carey INFLUBNEGH SEE BELOW Normal [facility] Comment on above: Result Comment: Nega tive for Flu B protein antigen. Infection due to Flu B cannot be ruled out. Flu B antigen in the sample may be below the detection limit of the test. Performed By: #### I NFLUAB #### [facility] [address] [place] [address] Dr. Jorge L Carey INFLUENZA A AG Negative Normal NEGATIVE SEE COMMENT [facility] Comment on above: Performed By: #### I NFLUAB #### [facility] [address] [address] [address] Jorge L Carey INFLUENZA B AG Negative Normal NEGATIVE SEE COMMENT [facility] Comment on above: Performed By: #### I NFLUAB #### [facility] [address] [address] [address] Jorge L Carey POINT OF CARE GLUCOSEon 06-17 Glucose [Mass/Vol] 130 mg/dL Critically high 74-106 T [facility] Comment on above: Performed By: #### B MP, LIPID, ALT, URIC #### [facility] [address] [address] [address] Jorge L Carey PROF 14(COMP METB)on 023 Albumin [Mass/Vol] 3.7 g/dL Normal 3.4-5.0 [facility] Comment on above: Performed By: #### C IGGY, CMADM #### [facility] [address] [place] [address] Dr. Jorge L Carey Albumin/Globulin [Mass ratio] 1.2 {ratio} Normal [facility] Comment on above: Performed By: #### C IGGY, CMADM #### [facility] [address] [place] [address] Dr. Jorge L Caery ALP [Catalytic activity/Vol] 49 U/L Normal 46-116 [facility] Comment on above: Performed By: #### C IGGY, CMADM #### [facility] [address] [address] [address] Jorge L Carey ALT [Catalytic activity/Vol] 30 U/L Normal 16-63 [facility] Comment on above: Performed By: #### C MP, CMADM #### [facility] [address] [place] [address] Dr. Jorge L Carey Anion gap [Moles/Vol] 12.7 mmol/L Normal [facility] Comment on above: Performed By: #### C MP, CMADM #### [facility] [address] [place] [address] Dr. Jorge L Carey AST [Catalytic activity/Vol] 21 U/L Normal 15-37 [facility] Comment on above: Performed By: #### C IGGY, CMADM #### [facility] [address] [place] [address] Dr. Jorge L Carey Bilirubin [Mass/Vol] 0.5 mg/dL Normal 0.2-1.0 [facility] Comment on above: Performed By: #### C IGGY, CMADM #### [facility] [address] [place] [address] Dr. Jorge L Carey Calcium [Mass/Vol] 8.9 mg/dL Normal 8.5-10.1 [facility] Comment on above: Performed By: #### C IGGY, CMADM #### [facility] [address] [place] [address] Dr. Jorge L Carey Chloride [Moles/Vol] 100 mmol/L Normal 98-107 [facility] Comment on above: Performed By: #### C IGGY, CMADM #### [facility] [address] [place] [address] Dr. Jorge L Carey CO2 [Moles/Vol] 29.0 mmol/L Normal 21.0-32.0 [facility] Comment on above: Performed By: #### C IGGY, CMADM #### [facility] [address] [place] [address] Dr. Jorge L Carey Creatinine [Mass/Vol] 1.04 mg/dL Normal 0.70-1.30 [facility] Comment on above: Performed By: #### C IGGY, CMADM #### [facility] [address] [place] [address] Dr. Jorge L Carey EGFR-AF SLOVENIAN >60 Normal >=60 [facility] Comment on above: Performed By: #### C IGGY, CMADM #### [facility] [address] [place] [address] Dr. Jorge L Carey EGFR-NON AF SLOVENIAN >60 Normal >=60 [facility] Comment on above: Performed By: #### C IGGY, CMADM #### [facility] [address] [place] [address] Dr. Jorge L Carey Globulin (S) [Mass/Vol] 3.1 g/dL Normal [facility] Comment on above: Performed By: #### C IGGY, RAMYDM #### [facility] [address] [place] [address] Dr. Jorge L Carey Glucose [Mass/Vol] 140 mg/dL Critically high 74-106 T [facility] Comment on above: Performed By: #### C IGGY, CMADM #### [facility] [address] [place] [address] Dr. Jorge L Carey Potassium [Moles/Vol] 3.7 mmol/L Normal 3.5-5.1 [facility] Comment on above: Performed By: #### C IGGY, RAMYDM #### [facility] [address] [place] [address] Dr. Jorge L Carey Protein [Mass/Vol] 6.8 g/dL Normal 6.4-8.2 [facility] Comment on above: Performed By: #### C RAMY PARKINSONDM #### [facility] [address] [place] [address] Dr. Jorge L Carey Sodium [Moles/Vol] 138 mmol/L Normal 136-145 [facility] Comment on above: Performed By: #### C IGGY, RAMYDM #### [facility] [address] [place] [address] Dr. Jorge L Carey Urea nitrogen [Mass/Vol] 13.0 mg/dL Normal 7.0-18.0 [facility] Comment on above: Performed By: #### C IGGY, RAMYDM #### [facility] [address] [place] [address] Dr. Jorge L Carey Urea nitrogen/Creatinine [Mass ratio] 12.5 mg/mg Normal [facility] Comment on above: Performed By: #### C IGGY, CMADM #### [facility] [address] [place] [address] Dr. Jorge L Carey TROPONIN, HIGH SENSITIVITYon 07-01-2022 HSTROP 10.9 pg/mL Normal 4.0-76.1 [facility] Comment on above: Result Comment: CUT- OFF POINTS HAVE BEEN ESTABLISHED BASED ON THE FOURTH UNIVERSAL DEFINITIONS OF MYOCARDIAL INFARCTION. THE UPPER REFERENCE LIMIT (URL) OF TROPONIN, DEFINED THE 99TH PERCENTILE OF cTnI DISTRIBUTION IN A REFERENCE POPULATION, HAS BEEN CONFIRMED THE DECISION THRESHOLD FOR [place] DIAGNOSIS. Performed By: #### B MP, LIPID, ALT, URIC #### [facility] [address] [place] [address] Dr. Jorge L Carey XR CHEST 1 [...] FILIPPO MASTERS Date: 2022-07-01 19:57 Normal [facility] CBC AUTO DIFFon 04-18-2022 BASO # 0.0 103/ul Normal 0.0-0.1 [facility] Comment on above: Performed By: #### C BC #### [facility] [address] [place] [address] Dr. Jorge L Carey Basophils/100 WBC (Bld) 0.7 % Normal 0.2-2.0 [facility] Comment on above: Performed By: #### C BC #### [facility] [address] [place] [address] Dr. Jorge L Carey EO # 0.2 103/ul Normal 0.0-0.7 [facility] Comment on above: Performed By: #### C BC #### [facility] [address] [place] [address] Dr. Jorge L Carey Eosinophils/100 WBC (Bld) 2.6 % Normal 0.9-7.0 [facility] Comment on above: Performed By: #### C BC #### [facility] [address] [place] [address] Dr. Jorge L Carey Erythrocyte distribution width (RBC) [Ratio] 11.5 % Normal 11.0-15.0 [facility] Comment on above: Performed By: #### C BC #### [facility] [address] [place] [address] Dr. Jorge L Carey Hematocrit (Bld) [Volume fraction] 44.7 % Normal 42.0-54.0 [facility] Comment on above: Performed By: #### C BC #### [facility] Laboratory [address] [place] [address] Dr. Jorge L Carey Hemoglobin (Bld) [Mass/Vol] 15.5 g/dL Normal 14.0-18.0 [facility] Comment on above: Performed By: #### C BC #### [facility] Laboratory [address] [place] [address] Dr. Jorge L Carey IG # 0.01 10e3/ul Normal 0.00-0.03 [facility] Comment on above: Performed By: #### C BC #### [facility] Laboratory [address] [place] [address] Dr. Jorge L Carey IG % 0.2 % Normal 0.0-0.5 [facility] Comment on above: Performed By: #### C BC #### [facility] [address] [place] [address] Dr. Jorge L Carey LYMPH # 1.3 103/ul Normal 1.2-3.8 [facility] Comment on above: Performed By: #### C BC #### [facility] Laboratory [address] [place] [address] Dr. Jorge L Carey Lymphocytes/100 WBC (Bld) 21.3 % Normal 20.5-60.0 [facility] Comment on above: Performed By: #### C BC #### [facility] Laboratory [address] [place] [address] Dr. Jorge L Carey MANUAL DIFF REQ NO Normal [facility] Comment on above: Performed By: #### C BC #### [facility] Laboratory [address] [place] [address] Dr. Jorge L Carey MCH (RBC) [Entitic mass] 30.1 pg Normal 25.9-34.0 [facility] Comment on above: Performed By: #### C BC #### [facility] [address] [place] [address] Dr. Jorge L Carey MCHC (RBC) [Mass/Vol] 34.7 g/dL Normal 29.9-35.2 [facility] Comment on above: Performed By: #### C BC #### [facility] Laboratory [address] [address] [address] Jorge L Carey MCV (RBC) [Entitic vol] 86.8 fL Normal 80.0-94.0 [facility] Comment on above: Performed By: #### C BC #### [facility] [address] [address] [address] Jorge L Carey MONO # 0.4 103/ul Normal 0.3-0.8 [facility] Comment on above: Performed By: #### C BC #### [facility] [address] [place] [address] Dr. Jorge L Carey Monocytes/100 WBC (Bld) 7.2 % Normal 1.7-12.0 [facility] Comment on above: Performed By: #### C BC #### [facility] [address] [place] [address] Dr. Jorge L Carey NEUT # 4.1 103/ul Normal 1.4-6.5 [facility] Comment on above: Performed By: #### C BC #### [facility] [address] [place] [address] Dr. Jorge L Carey Neutrophils/100 WBC (Bld) 68.0 % Normal 43.0-75.0 [facility] Comment on above: Performed By: #### C BC #### [facility] [address] [place] [address] Dr. Jorge L Carey Platelet mean volume (Bld) [Entitic vol] 12.0 fL Normal 9.5-13.5 [facility] Comment on above: Performed By: #### C BC #### [facility] [address] [place] [address] Dr. Jorge L Carey PLT 163 103/ul Normal 150-450 [facility] Comment on above: Performed By: #### C BC #### [facility] [address] [place] [address] Dr. Jorge L Carey RBC 5.15 106/ul Normal 4.70-6.10 [facility] Comment on above: Performed By: #### C BC #### [facility] [address] [address] [address] Jorge L Carey WBC 6.1 103/ul Normal 4.0-11.0 [facility] Comment on above: Performed By: #### C BC #### [facility] [address] [address] [address] Jorge L Carey GLYCOHEMOGLOBIN A1Con 2021 ADA RECOMMENDATION SEE BELOW Normal [facility] Comment on above: Result Comment: ADA RECOMMENDED LIMIT 4.0 - 6.0 ADA THERAPEUTIC TARGET < 7.0 ACTION SUGGESTED > 7.0 Performed By: #### B MP, LIPID, ALT, URIC #### [facility] [address] [address] [address] Jorge L Carey Glucose [Mass/Vol] 146 mg/dL Normal [facility] Comment on above: Performed By: #### B MP, LIPID, ALT, URIC #### [facility] [address] [address] [address] Jorge L Carey HbA1c (Bld) [Mass fraction] 6.7 % Critically high 4.5-6.2 [facility] Comment on above: Performed By: #### B MP, LIPID, ALT, URIC #### [facility] [address] [address] [address] Jorge L Carey LIPID PROFILEon 04-18-2022 CHOL-HDL RATIO NORM SEE BELOW Normal [facility] Comment on above: Result Comment: 3.3 - 4.4 LOW RISK 4.4 - 7.1 AVERAGE RISK 7.1 - 11.0 MODERATE RISK >11.0 HIGH RISK Performed By: #### B MP, LIPID, ALT, URIC #### [facility] [address] [address] [address] Jorge L Carey Cholesterol [Mass/Vol] 117 mg/dL Normal <=200 [facility] Comment on above: Performed By: #### B MP, LIPID, ALT, URIC #### [facility] [address] [address] [address] Jorge L Carey Cholesterol in HDL [Mass/Vol] 48 mg/dL Normal 40-60 [facility] Comment on above: Performed By: #### B MP, LIPID, ALT, URIC #### [facility] [address] [address] [address] Jorge L Carey Cholesterol in LDL [Mass/Vol] 50.6 mg/dL Normal [facility] Comment on above: Performed By: #### B MP, LIPID, ALT, URIC #### [facility] [address] [address] [address] Jorge L Carey Cholesterol.total/Cho lesterol in HDL [Mass ratio] 2.4 {ratio} Normal [facility] Comment on above: Performed By: #### B MP, LIPID, ALT, URIC #### [facility] [address] [address] [address] Jorge L Carey HDL NORMAL > or = 60 mg/dl - LOW CARDIOVASCULAR RISK <40 mg/dl - HIGH CARDIOVASCULAR RISK Normal [facility] Comment on above: Performed By: #### B MP, LIPID, ALT, URIC #### [facility] [address] [address] [address] Jorge L Carey LDL CALC NORMAL SEE BELOW Normal [facility] Comment on above: Result Comment: <100 mg/dl OPTIMAL 100 - 129 mg/dl NEAR OR ABOVE OPTIMAL 130 - 159 mg/dl BORDERLINE HIGH 160 - 189 mg/dl HIGH >190 mg/dl VERY HIGH Performed By: #### B MP, LIPID, ALT, URIC #### [facility] [address] [address] [address] Jorge L Carey Triglyceride [Mass/Vol] 92 mg/dL Normal <=150 [facility] Comment on above: Performed By: #### B MP, LIPID, ALT, URIC #### [facility] [address] [address] [address] Jorge L Carey VLDL CALC 18.4 mg/dL Normal [facility] Comment on above: Performed By: #### B MP, LIPID, ALT, URIC #### [facility] [address] [address] [address] Jorge L Carey MICROALBUMIN, RAND URon 11-0 mALB <1.3 Normal <=30.0 [facility] Comment on above: Performed By: #### M ALBR #### [facility] [address] [address] [address] Jorge L Carey PROF CHEM 8 (BAS METB)on Anion gap [Moles/Vol] 9.5 mmol/L Normal [facility] Comment on above: Performed By: #### B MP, LIPID, ALT, URIC #### [facility] [address] [place] [address] Dr. Jorge L Carey Calcium [Mass/Vol] 8.6 mg/dL Normal 8.5-10.1 [facility] Comment on above: Performed By: #### B MP, LIPID, ALT, URIC #### [facility] [address] [place] [address] Dr. Jorge L Carey Chloride [Moles/Vol] 102 mmol/L Normal 98-107 [facility] Comment on above: Performed By: #### B MP, LIPID, ALT, URIC #### [facility] [address] [place] [address] Dr. Jorge L Carey CO2 [Moles/Vol] 30.8 mmol/L Normal 21.0-32.0 [facility] Comment on above: Performed By: #### B MP, LIPID, ALT, URIC #### [facility] [address] [place] [address] Dr. Jorge L Carey Creatinine [Mass/Vol] 0.95 mg/dL Normal 0.70-1.30 [facility] Comment on above: Performed By: #### B MP, LIPID, ALT, URIC #### [facility] Laboratory [address] [place] [address] Dr. Jorge L Carey EGFR-AF SLOVENIAN >60 Normal >=60 [facility] Comment on above: Performed By: #### B MP, LIPID, ALT, URIC #### [facility] [address] [place] [address] Dr. Jorge L Carey EGFR-NON AF SLOVENIAN >60 Normal >=60 [facility] Comment on above: Performed By: #### B MP, LIPID, ALT, URIC #### [facility] [address] [address] [address] Jorge L Carey Glucose [Mass/Vol] 142 mg/dL Critically high 74-106 T [facility] Comment on above: Performed By: #### B MP, LIPID, ALT, URIC #### [facility] [address] [place] [address] Dr. Jorge L Carey Potassium [Moles/Vol] 4.3 mmol/L Normal 3.5-5.1 [facility] Comment on above: Performed By: #### B MP, LIPID, ALT, URIC #### [facility] [address] [place] [address] Dr. Jorge L Carey Sodium [Moles/Vol] 138 mmol/L Normal 136-145 [facility] Comment on above: Performed By: #### B MP, LIPID, ALT, URIC #### [facility] [address] [place] [address] Dr. Jorge L Carey Urea nitrogen [Mass/Vol] 14.0 mg/dL Normal 7.0-18.0 [facility] Comment on above: Performed By: #### B MP, LIPID, ALT, URIC #### [facility] [address] [place] [address] Dr. Jorge L Carey Urea nitrogen/Creatinine [Mass ratio] 14.7 mg/mg Normal [facility] Comment on above: Performed By: #### B MP, LIPID, ALT, URIC #### [facility] [address] [place] [address] Dr. Jorge L Carey SGPTon 04-18-2022 ALT [Catalytic activity/Vol] 27 U/L Normal 16-63 [facility] Comment on above: Performed By: #### B MP, LIPID, ALT, URIC #### [facility] [address] [place] [address] Dr. Jorge L Carey URIC ACID SERUMon 04-18-2022 Urate [Mass/Vol] 5.5 mg/dL Normal 3.5-7.2 [facility] Comment on above: Performed By: #### B MP, LIPID, ALT, URIC #### [facility] [address] [place] [address] Dr. Jorge L Carey GLYCOHEMOGLOBIN A1Con 08-06- 2022 ADA RECOMMENDATION SEE BELOW Normal [facility] Comment on above: Result Comment: ADA RECOMMENDED LIMIT 4.0 - 6.0 ADA THERAPEUTIC TARGET < 7.0 ACTION SUGGESTED > 7.0 Performed By: #### B MP, LIPID, ALT, URIC #### [facility] [address] [address] [address] Jorge L Carey Glucose [Mass/Vol] 160 mg/dL Normal [facility] Comment on above: Performed By: #### B MP, LIPID, ALT, URIC #### [facility] [address] [address] [address] Jorge L Carey HbA1c (Bld) [Mass fraction] 7.2 % Critically high 4.5-6.2 [facility] Comment on above: Performed By: #### B MP, LIPID, ALT, URIC #### [facility] [address] [place] [address] Dr. Jorge L Carey GLYCOHEMOGLOBIN A1Con 2021 ADA RECOMMENDATION ADA THERAPEUTIC TARGET 6.0 - 7.0 ACTION SUGGESTED > 7.0 Normal [facility] Comment on above: Performed By: #### B MP, LIPID, ALT, URIC #### [facility] [address] [address] [address] Jorge L Carey Glucose [Mass/Vol] 177 mg/dL Normal [facility] Comment on above: Performed By: #### B MP, LIPID, ALT, URIC #### [facility] [address] [address] [address] Jorge L Carey HbA1c (Bld) [Mass fraction] 7.8 % Critically high <=6.0 [facility] Comment on above: Performed By: #### B MP, LIPID, ALT, URIC #### [facility] [address] [place] [address] Dr. Jorge L Carey [facility] [employer] 09-17-2020 Glucose [Mass/Vol] 151 mg/dL Normal [facility] Comment on above: Result Comment: PERF ORMED BY: [address] [place] [address] PATHOLOGIST [place]DI[place] NANNY SUSAN SEXTON M.D. Performed By: #### O UTREACH GLYCO #### [facility] [address] [place] [address] [facility] HbA1c (Bld) [Mass fraction] 6.9 % High 4.3-5.6 [facility] Comment on above: Result Comment: Incr eased risk for diabetes: 5.7 - 6.4 diabetes: >6.4 glycemic control for adults with diabetes: <7.0 Performed By: #### O UTREACH GLYCO #### [facility] [address] [place] [address] [facility] Vital Signs Date Time Vital Sign Value Performing Clinician Facility 02-18-2024 09:37-0400 Body height 190.5 cm [facility] 02-18-2024 09:37-0400 Body mass index (BMI) [Ratio] 32.1 kg/m2 [facility] 02-18-2024 09:37-0400 Body weight 116.74 kg [facility] 02-18-2024 09:37-0400 Diastolic blood pressure 81 mm[Hg] [facility] 02-18-2024 09:37-0400 Heart rate 76 /min [facility] 02-18-2024 09:37-0400 Respiratory rate 12 /min [facility] 02-18-2024 09:37-0400 Systolic blood pressure 136 mm[Hg] [facility] 10-18-2023 09:06-0400 Body height 190.5 cm [facility] 10-18-2023 09:06-0400 Body mass index (BMI) [Ratio] 31.8 kg/m2 [facility] 10-18-2023 09:06-0400 Body weight 115.32 kg [facility] 10-18-2023 09:06-0400 Diastolic blood pressure 77 mm[Hg] [facility] 10-18-2023 09:06-0400 Heart rate 80 /min [facility] 10-18-2023 09:06-0400 Respiratory rate 12 /min [facility] 10-18-2023 09:06-0400 Systolic blood pressure 116 mm[Hg] [facility] 07-08-2023 09:00-0500 Body height 190.5 cm Bogdan Ball Other [facility] Other 07-08-2023 09:00-0500 Body mass index (BMI) [Ratio] 32.62 kg/m2 Bogdan Ball Other [facility] Other 07-08-2023 09:00-0500 Body weight 118.39 kg Bogdan Ball Other [facility] Other 07-08-2023 09:00-0500 Diastolic blood pressure 81 mm[Hg] Bogdan Ball Other [facility] Other 07-08-2023 09:00-0500 Respiratory rate 12 /min Bogdan Ball Other [facility] Other 07-08-2023 09:00-0500 Systolic blood pressure 117 mm[Hg] Bogdan Ball Other [facility] Other 05-01-2023 08:30-0500 Body height 190.5 cm Bogdan Ball Other [facility] Other 05-01-2023 08:30-0500 Body mass index (BMI) [Ratio] 32.19 kg/m2 Bogdan Ball Other [facility] Other 05-01-2023 08:30-0500 Body weight 116.85 kg Bogdan Ball Other [facility] Other 05-01-2023 08:30-0500 Diastolic blood pressure 81 mm[Hg] Bogdan Ball Other [facility] Other 05-01-2023 08:30-0500 Respiratory rate 12 /min Bogdan Ball Other [facility] Other 05-01-2023 08:30-0500 Systolic blood pressure 135 mm[Hg] Bogdan Ball Other [facility] Other 12-26-2022 08:30-0400 Body height 190.5 cm Bogdan Ball Other [facility] Other 12-26-2022 08:30-0400 Body mass index (BMI) [Ratio] 31.54 kg/m2 Bogdan Ball Other [facility] Other 12-26-2022 08:30-0400 Body weight 114.49 kg Bogdan Ball Other [facility] Other 12-26-2022 08:30-0400 Diastolic blood pressure 85 mm[Hg] Bogdan Ball Other [facility] Other 12-26-2022 08:30-0400 Respiratory rate 12 /min Bogdan Ball Other [facility] Other 12-26-2022 08:30-0400 Systolic blood pressure 139 mm[Hg] Bogdan Ball Other [facility] Other 11-09-2022 10:58-0400 Blood Pressure Location Hola GARCIA [facility] 11-09-2022 10:58-0400 Diastolic blood pressure 80 mm[Hg] Hola GARCIA [facility] 11-09-2022 10:58-0400 Heart rate 78 /min Hola GARCIA [facility] 11-09-2022 10:58-0400 Respiratory rate 16 /min Holaconnor GARCIA [facility] 11-09-2022 10:58-0400 Systolic blood pressure 130 mm[Hg] Hola GARCIA [facility] 10-05-2022 12:15-0400 Body height 190.5 cm Bogdan Ball Other [facility] Other 10-05-2022 12:15-0400 Body mass index (BMI) [Ratio] 31.17 kg/m2 Bogdan Ball Other [facility] Other 10-05-2022 12:15-0400 Body weight 113.13 kg Bogdan Ball Other [facility] Other 10-05-2022 12:15-0400 Diastolic blood pressure 95 mm[Hg] Bogdan Ball Other [facility] Other 10-05-2022 12:15-0400 Respiratory rate 12 /min Bogdan Ball Other [facility] Other 10-05-2022 12:15-0400 Systolic blood pressure 168 mm[Hg] Bogdan Ball Other [facility] Other 08-23-2022 08:30-0500 Body height 190.5 cm Bogdan Ball Other [facility] Other 08-23-2022 08:30-0500 Body mass index (BMI) [Ratio] 31.42 kg/m2 Bogdan Ball Other [facility] Other 08-23-2022 08:30-0500 Body weight 114.04 kg Bogdan Ball Other [facility] Other 08-23-2022 08:30-0500 Diastolic blood pressure 86 mm[Hg] Bogdan Ball Other [facility] Other 08-23-2022 08:30-0500 Respiratory rate 12 /min Bogdan Green Other [facility] Other 08-23-2022 08:30-0500 Systolic blood pressure 132 mm[Hg] Bogdan Green Other [facility] [employer] Other 10-06-2021 08:14-0400 Blood Pressure Location Hola GARCIA [facility] 10-06-2021 08:14-0400 Diastolic blood pressure 98 mm[Hg] Holaconnor GARCIA [facility] 10-06-2021 08:14-0400 Heart rate 78 /min Holaconnor GARCIA [facility] 10-06-2021 08:14-0400 Systolic blood pressure 145 mm[Hg] Hola GARCIA [facility] Encounters Encounter Date Encounter Type Care Provider Facility Start: 04-03-2024 ambulatory Hola GARCIA Facili ty:[facility] Start: 02-18-2024 End: 02-18-2024 ambulatory [facility] Work Phone: Start: 02-18-2024 End: 02-18-2024 Patient encounter procedure [facility] Work Phone: Start: 02-11-2024 Non-patient / Non-visit [facility] Work Phone: Start: 10-18-2023 End: 10-18-2023 ambulatory [facility] Work Phone: Start: 10-18-2023 End: 10-18-2023 Patient encounter procedure [facility] Work Phone: Start: 10-12-2023 Non-patient / Non-visit [facility] Work Phone: Start: 08-23-2023 Non-patient / Non-visit [facility] Work Phone: Start: 08-19-2023 End: 08-20-2023 ambulatory Dm Cyr MD Facility: [facility] Start: 08-16-2023 Non-patient / Non-visit [facility] Work Phone: Start: 07-30-2023 Non-patient / Non-visit [facility] Work Phone: Start: 07-29-2023 End: 07-30-2023 ambulatory Dm Cyr MD [facility] Other Start: 07-29-2023 Telephone encounter Bogdan Green [facility] Start: 07-15-2023 End: 07-16-2023 ambulatory Dm Cyr MD Facility: [facility] Start: 07-08-2023 End: 07-08-2023 ambulatory Bogdan Green Other [facility] Other Start: 07-08-2023 Office outpatient vi sit 25 minutes Bogdan Green [facility] Start: 06-24-2023 End: 06-25-2023 ambulatory Dm Cyr MD Facility:[facility] Start: 05-20-2023 End: 05-21-2023 ambulatory Dm Cyr MD Facility: [facility] Start: 05-10-2023 End: 05-10-2023 ambulatory Bogdan Green Other [facility] Other Start: 05-10-2023 Office outpatient vi sit 15 minutes Bogdan Ball [facility] Start: 05-01-2023 End: 05-01-2023 ambulatory Bogdan Green Other [facility] Other Start: 05-01-2023 Patient encounter procedure Bogdan Green [facility] Start: 04-24-2023 End: 04-24-2023 ambulatory Bogdan Green Other [facility] Other Start: 04-24-2023 Telephone encounter Bogdan Ball [facility] Start: 02-25-2023 End: 02-25-2023 ambulatory Bogdan Peter Other [facility] Other Start: 02-25-2023 Telephone encounter Bogdan Green [facility] Start: 12-27-2022 End: 12-27-2022 ambulatory Bogdan Green Other [facility] Other Start: 12-27-2022 Telephone encounter Bogdan Ball [facility] Start: 12-26-2022 End: 12-26-2022 ambulatory Bogdan Green Other [facility] Other Start: 12-26-2022 Office outpatient vi sit 25 minutes Bogdan Green [facility] Start: 11-19-2022 End: 11-19-2022 ambulatory Bogdan Green Other [facility] Other Start: 11-19-2022 Telephone encounter Bogdan Ball [facility] Start: 11-09-2022 End: 11-09-2022 Patient encounter procedure Hola GARCIA [facility] Start: 10-22-2022 End: 10-22-2022 ambulatory Bogdan Green Other [facility] Other Start: 10-22-2022 Telephone encounter Bogdan Ball [facility] Start: 10-18-2022 End: 10-18-2022 ambulatory Bogdan Peter Other [facility] Other Start: 10-18-2022 Telephone encounter Bogdan Peter [facility] Start: 10-05-2022 End: 10-05-2022 ambulatory Bogdan Green Other [facility] Other Start: 10-05-2022 Office outpatient vi sit 15 minutes Bogdan Peter [facility] Start: 09-27-2022 End: 09-27-2022 ambulatory Bogdan Green Other [facility] Other Start: 09-27-2022 Telephone encounter Bogdan Green [facility] Start: 09-25-2022 End: 09-25-2022 ambulatory Bogdan Green Other [facility] Other Start: 09-25-2022 Telephone encounter Bogdan Green [facility] Start: 09-21-2022 End: 09-21-2022 ambulatory Bogdan Green Other [facility] Other Start: 09-21-2022 Telephone encounter Bogdan Green [facility] Start: 08-23-2022 End: 08-23-2022 ambulatory Bogdan Green Other [facility] Other Start: 08-23-2022 Office outpatient vi sit 25 minutes Bogdan Green [facility] Start: 08-17-2022 End: 08-18-[address] BOGDAN GREEN Facility:[facility] Start: 08-14-2022 End: 08-14-2022 ambulatory Bogdan Green Other [facility] Other Start: 08-14-2022 Telephone encounter Bogdan Green [facility] Start: 07-01-2022 End: 07-01-[address] BOGDAN GREEN Facility:[facility] Start: 04-25-2022 Adult health examination Bogdan Green Other [facility] Other Start: 04-18-2022 End: 04-19-[address] BOGDAN GREEN Facility:[facility] Start: 01-20-2022 End: 01-21-2022 ambulatory NONE LISTED REQUEST Facility:[facility] Start: 10-06-2021 End: 10-06-2021 Patient encounter procedure Hola GARCIA [facility] Start: 09-16-2021 End: 09-17-[address] HOLA GARCIA . Facility:[facility] Start: 09-15-2021 End: 09-16-2021 ambulatory NONE LISTED REQUEST Facility:[facility] Start: 08-29-[address] BOGDAN GREEN Facili ty:[facility] Procedures Date Procedure Procedure Detail Performing Clinician Start: 09-16-[address] NORRIS GREEN Comment on above: Performed By: #### B MP, LIPID, ALT, URIC #### [facility] [address] [place] [address] Dr. Jorge L Carey Start: 03-29-2017 General [...] Care Activity Detail Author US [facility] XR Chest 2 Views [facility] Immunizations Immunization Date Immunization Notes Care Provider Fa cility 04-29-2023 zoster vaccine recombinant Bogdan Green Other [facility] [facility] 04-26-2023 influenza virus vaccine, unspecified formulation [facility] 04-26-2023 influenza, high dose seasonal, preservative-free Bogdan Green Other [facility] Other 02-26-2023 zoster vaccine recombinant Bogdan Green Other [facility] 04-25-2022 pneumococcal 20-alber nt conjugate vaccine Hola GARCIA [facility] 04-16-2022 influenza virus vaccine, split virus (incl. purified surface antigen) Bogdan Green Other [facility] Other 04-16-2022 influenza virus vaccine, unspecified formulation Hola GARCIA [facility] 03-23-2022 SARS-CoV-2 (COVID-19 ) [id number] Hola GARCIA [facility] 05-08-2021 SARS-CoV-2 (COVID-19 ) mRNA BNT-162b2 vax Hola GARCIA [facility] 04-22-2021 influenza virus vaccine, split virus (incl. purified surface antigen) Bogdan Green Other [facility] Other 04-22-2021 influenza virus vaccine, unspecified formulation Hola GARCIA [facility] 03-30-2021 influenza virus vaccine, unspecified formulation Hola GARCIA [facility] 09-16-2020 COVID-19, mRNA, LNP- S, PF, 30 mcg/0.3 mL dose; 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: [[place] FFT COVID-19 Vaccine] Hola GARCIA [facility] Comment on above: Reason for Medicatio n: Prophylaxis 08-26-2020 COVID-19, mRNA, LNP- S, PF, 30 mcg/0.3 mL dose; 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: [Pfizer-BioNTech COVID-19 Vaccine] Hola GARCIA [facility] Comment on above: Reason for Medicatio n: Prophylaxis 04-16-2020 influenza virus vaccine, split virus (incl. purified surface antigen) Bogdan Green Other [facility] Other 04-16-2020 influenza virus vaccine, unspecified formulation Hola GARCIA [facility] pneumococcal Conjuga te, unspecified formulation; 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: [Need for prophylactic vaccination against Streptococcus pneumoniae (pneumococcus)] Bogdan Green Other [facility] Other Payers Date Payer Category Payer Medicare 2022 Unknown 2021 Medicare [id number] 2020 Unknown [id number] 1959 Medicare [id number] 1959 Self-pay [id number] 1959 Unknown [id number] 1959 Unknown [id number] 1956 Unknown [id number] .16.84 0.1.966940.3.579.2.593 1956 Unknown [id number] .16.84 0.1.577809.3.579.2.593 1956 Unknown [id number] .16.84 0.1.075926.3.579.2.593 1956 Unknown [id number] .16.84 0.1.323887.3.579.2.593 1956 Unknown [id number] 2.16.84 0.1.996756.3.579.2.593 1956 Unknown [id number] 2.16. 840.1.571021.3.579.2.196 1956 Unknown [id number] 2.16. 840.1.910182.3.579.2.196 1956 Unknown [id number] 2.16. 840.1.573995.3.579.2.196 1956 Unknown [id number] 2.16. 840.1.886448.3.579.2.196 1956 Unknown [id number] 2.16. 840.1.811692.3.579.2.196 1956 Unknown [id number] 2.16.8 40.1.949501.3.579.2.727 Blue Cross Blue Shield [id number] 2.16.840.1.131963.19 Self-pay Self Pay [id number] Unknown [id number] 2.16.84 0.1.215318.3.579.2.593 Unknown [id number] 2.16.84 0.1.443119.3.579.2.593 Social History Date Type Detail Facility Start: 10-06-2021 End: 07-27-2023 Tobacco smoking status Never smoked tobacco (finding) [facility] Sex Assigned At Male [facility] Tobacco smoking status Never [facility] Start: 1955 Sex Assigned At Male F [facility] Medical Equipment Procedure Code Equipment Code Equipment [...] 11-09-2022 Functional Status N/A [facility] Clinical Notes 10-06-2021 to 07-29-2023 Note Date & Type Note Facility 07-29-2023 Evaluation note Encounter Date Diagnosis Assessment Notes Jul, Type 2 diabetes mellitus with hyperglycemia , without long-term current use of insulin (ICD-10 - E11.65) [facility] Other 01-22-2024 Evaluation note* Encounter Date Diagnosis [...] index [BMI] 32.0-32.9, adult (ICD-10 - Z68.32) [facility] Other 11-24-2023 Evaluation note* Encounter Date Diagnosis [...] Microalbumin, Dilated eye exam and Foot exam [facility] Other 11-15-2023 Evaluation note* Encounter Date Diagnosis [...] flares Sep, Thrombocytopenia, unspecified (ICD-10 - D69.6) [facility] Other 11-15-2023 Evaluation note* Encounter Date Diagnosis [...] flares Sep, Thrombocytopenia, unspecified (ICD-10 - D69.6) [facility] Other 11-08-2023 Evaluation note* Encounter Date Diagnosis Assessment Notes Treatment Notes Treatment Clinical Notes Apr, Screening PSA (prostate specific antigen) (ICD-10 - Z12.5) Apr, Type 2 diabetes mellitus with hyperglycemia, without long-term current use of insulin (ICD-10 - E11.65) Apr, Elevated cholesterol (ICD-10 - E78.00) Apr, Primary hypertension (ICD-10 - I10) Sep, Thrombocytopenia, unspecified (ICD-10 - D69.6) Thrombocytopenia [facility] Other 07-12-2023 Evaluation note* Encounter Date Diagnosis [...] [BMI] 31.0-31.9, adult (ICD-10 - Z68.31) Dec, residential (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 (ICD-10 - Z79.4) [facility] Other 05-26-2023 Hospital Discharge instructions Patient Education [...] treatment? Where to find more information [employer]: www.cancer.org [employer]: www.auanet.org Contact a health care [...] provider. Document Revised: 11/27/2021 Document Reviewed: 11/27/2021 [employer] Patient Education 2022 [employer]. Follow Up Care 10/06/2021 08:40:21 With:JOSE MCMANUS, Hola Rushing, URL Address: [facility] [address] [place] [address]- When: Unknown [facility] Kyree 05-08-2023 Evaluation note* Encounter Date Diagnosis Assessment Notes Treatment Notes Treatment Clinical Notes October, Primary hypertension (ICD-10 - I10) [facility] Other 05-04-2023 Evaluation note* Encounter Date Diagnosis Assessment Notes Treatment Notes Treatment Clinical Notes October, Primary hypertension (ICD-10 - I10) [facility] Other 04-21-2023 Evaluation note* Encounter Date Diagnosis [...] and Glimepiride appear to be controlling BS. 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) [facility] Other 04-11-2023 Evaluation note* Encounter Date Diagnosis Assessment Notes Treatment Notes Treatment Clinical Notes Sep, Type 2 diabetes mellitus with hyperglycemia, without long-term current use of insulin (ICD-10 - E11.65) [facility] Other 04-07-2023 Evaluation note* Encounter Date Diagnosis Assessment Notes Treatment Notes Treatment Clinical Notes Sep, Type 2 diabetes mellitus with hyperglycemia (ICD-10 - E11.65) [facility] Other 03-09-2023 Evaluation note* Encounter Date Diagnosis [...] Reviewed red flag symptoms and nerve impingement [facility] Other 02-28-2023 Evaluation note* Encounter Date Diagnosis Assessment Notes Treatment Notes Treatment Clinical Notes Jul, Type 2 diabetes mellitus with hyperglycemia, without long-term current use of insulin (ICD-10 - E11.65) [facility] Other 04-22-2022 Hospital Discharge instructions Patient Education [...] urethra. Follow these instructions at home: Take wcnn-uek-evncumy and prescription medicines only as told by [...] 06/03/2006 Document Revised: 04/28/2019 Document Reviewed: 07/08/2017 [employer] Patient Education 2020 [employer]. Follow Up Care 10/03/2020 15:00:49 With:Hola GARCIA MD, URL Address: [facility] [address] [place] [address]- [phone] When:10/06/2022 [facility] evaluation + Plan note Future Appointments Appointment Date:10/12/2022 08:00:00 AM Scheduled Provider:Hola GARCIA MD Location:[facility] Appointment Type:URO Office Visit Diagnostic Tests Pending * PSA Total 10/06/21 [facility] evaluation + Plan note Future Appointments Appointment Date:11/18/2023 08:45:00 AM Scheduled Provider:Hola GARCIA MD Location:[facility] Appointment Type:URO Office Visit Diagnostic Tests Pending * PSA Free & Total 11/09/22 [facility] evaluation noteNort Kites Other evaluation noteNo InformationNocarondelet health [facility] Other Evaluation note* Diagnosis Onset Date Resolution Status Elevated cholesterol acute Gastroesophageal reflux dise ase with esophagitis without hemorrhage acute Obesity acute Primary hypertension acute Spondylosis without myelopat hy or radiculopathy, lumbar region acute Type 2 diabetes mellitus with hyperglycemia acute [facility] Work Phone: Evaluation note* Diagnosis Onset Date Resolution Status Elevated cholesterol acute Gastroesophageal reflux dise ase with esophagitis without hemorrhage acute Primary hypertension acute Spondylosis without myelopat hy or radiculopathy, lumbar region acute Type 2 diabetes mellitus with hyperglycemia acute [facility] Work Phone: [facility] general Narrative - Reported* Type Description Date [...] CYSTOSCOPY 2016 Hospitalization History SEE SURGICAL HX [facility] Other [facility] N[facility]ative - [facility] Other [facility] Narrative - Reported* Type Description Date [...] CYSTOSCOPY 2016 Hospitalization History SEE SURGICAL HX [facility] Other Hospital course Narrative No data available for this section [facility] progress note No data available for this section [facility] Summary Purpose Family History Relationship Condition [...] well ness visit, initial (Z00.00) Referral Organization [facility] Peter de la cruz Referring Provider First Name Bogdan Referring Provider Last Name Peter Referring Provider Specialty Internal Me dicine Referred Organization [facility] Referred Provider Swapnil French Referred Address [address] [place], [place],[address] Referred Provider Specialty Pain Medicin e Referral [...] Notes Include XR lumbar sp ine f: [id number] Chief Complaint and Reason for Visit Chief [...] section and content) DATE CREATED AUTHOR 07/30/2021 [facility] DATE CREATED AUTHOR AUTHOR'S ORGANIZ ATION 08/22/2022 [facility] DATE CREATED AUTHOR AUTHOR'S ORGANIZ ATION 08/23/2023 [facility] DATE CREATED AUTHOR AUTHOR'S ORGANIZ ATION 11/14/2023 [facility] REASON FOR VISIT (unrecogniz ed section and content) BS readingsElevated blood cifuentes [id number] PositiveWellnesslabsLab ResultsBP readingsrefillelevated BPMedication4 MONTH FOLLOW UP [...] BE BASED ON THE PRIMARY CLINICAL RECORDS. [facility] [employer] [facility]. provides no warranty or guarantee of the accuracy or completeness of information in this document.
== END 2024-03-30 06:17 | disposition home or self-care (01) ==
LOC: MRI 06:18
PROVIDERS: PCP Internal Medicine; Visit Provider Nurse Practitioner
DX: M48.061 Spinal stenosis, lumbar region without neurogenic claudication (principal)
CPT/HCPCS: 72148

== ENCOUNTER 2024-04-09 11:16 | Outpatient (OUT) | payer MEDICARE, BC, SELFPAY ==
--- OUTSIDE RECORDS SUMMARY | 2024-04-09 11:28 | XMS_ITS | CCD ---
Author Organization [facility] Care Team Providers Care Dental Laboratory Manager Name Role Phone BOGDAN GREEN Primary Care Physician [phone] PETER, DR MCFADDEN Primary Care Unavailable FRANCISCA [...] physicia Propensity to adverse reactions 6 Comment:Done [employer] Other (1 source) No Known Medication Allergies; 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: [No Known Medication Allergies] Propensity to adverse reactions (disorder) [facility] Repository Medications Current Medications Medication Drug Class(es) [...] day(s), # 90 tab(s), Refills(s) 3, Pharmacy: [facility]/pharmacy #[id number], 195, cm, 11/09/22 11:00:00 EDT, Height/Length Dosing, 111, kg, 11/09/22 11:00:00 EDT, Weight Dosing Start Date: 11/09/22 Stop Date: 11/04/23 Status: Ordered Start: 10-06-2021 take 1 tablet by osbaldo th once daily finasteride 5 mg Tab 5 mg = 1 tab(s), Oral, Daily, # 90 tab(s), Refills(s) 3, Pharmacy: [facility]/pharmacy #[id number], 195, cm, 10/06/21 8:16:00 [...] bid for 5 days Apr, Active [place] 5/16 (15 sources) Start: 09-27-2022 Start: 09-27-2022 [place] 5/ 16 Use to inject insulin qd [...] acid 4700 mg / polyethylene glycol 3350 [id number] mg / potassium chloride 1015 mg / [...] Chronic Other aftercare (1 source) 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; 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: [OTH HISTOLOGY MANAGER CURRENT DRUG THERAPY] Onset: 07-03-2022 Episodic Other aftercare (1 source) 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; 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: [HISTOLOGY MANAGER USE ORAL HYPOGLYCEMIC DX] Onset: 07-03-2022 Episodic Other aftercare (15 sources) Long-term current use of insulin; 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: [terminal 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 assembler (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] Episodic Other aftercare (2 sources) alf (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 Episodic Other aftercare (2 sources) Long-term current use of drug therapy; 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: [Other senior living (current) drug therapy] Episodic Other and unspecified [...] from glycated hemoglobin (Bld) [Mass/Vol] 169 mg/dL [facility] - Hematology and Cell countson 02-11-2024 HbA1c (Bld) [Mass fraction] 7.5 % High 4.5-6.2 [facility] Comment on above: ADA RECOMMENDED LIMI T 4.0 - 6.0ADA THERAPEUTIC TARGET < 7.0ACTION SUGGESTED> 7.0 Glucose mean value [Mass/vol ume] in Blood Estimated from glycated hemoglobinon 10-12-2023 Average glucose Estimated from glycated hemoglobin (Bld) [Mass/Vol] 180 mg/dL [facility] - Hematology and Cell countson 10-12-2023 HbA1c (Bld) [Mass fraction] 7.9 % 4.5-6.2 [facility] Comment on above: ADA RECOMMENDED LIMI T 4.0 - 6.0ADA THERAPEUTIC TARGET < 7.0ACTION SUGGESTED> 7.0 GLYCOHEMOGLOBIN A1Con 2022 ADA RECOMMENDATION SEE BELOW Normal [facility] Comment on above: Result Comment: ADA RECOMMENDED LIMIT 4.0 - 6.0 ADA THERAPEUTIC TARGET < 7.0 ACTION SUGGESTED > 7.0 Performed By: #### B MP, LIPID, ALT, URIC #### [facility] [address] [place] [address] Dr. Jorge L Carey Glucose [Mass/Vol] 148 mg/dL Normal [facility] Comment on above: Performed By: #### B MP, LIPID, ALT, URIC #### [facility] [address] [address] [address] Jorge L Carey HbA1c (Bld) [Mass fraction] 6.8 % Critically high 4.5-6.2 [facility] Comment on above: Performed By: #### B MP, LIPID, ALT, URIC #### [facility] [address] [address] [address] Jorge L Carey CARDIAC DANAY ADMITon 023 CK [Catalytic activity/Vol] 59 U/L Normal 39-308 [facility] Comment on above: Performed By: #### C MP, CMADM #### [facility] [address] [address] [address] Jorge L Carey CK.MB [Mass/Vol] 0.99 ng/mL Normal <=3.60 [facility] Comment on above: Performed By: #### C MP, CMADM #### [facility] [address] [place] [address] Dr. Jorge L Carey HSTROP 10.0 pg/mL Normal 4.0-76.1 [facility] Comment on above: Result Comment: CUT- OFF POINTS HAVE BEEN ESTABLISHED BASED ON THE FOURTH UNIVERSAL DEFINITIONS OF MYOCARDIAL INFARCTION. THE UPPER REFERENCE LIMIT (URL) OF TROPONIN, DEFINED THE 99TH PERCENTILE OF cTnI DISTRIBUTION IN A REFERENCE POPULATION, HAS BEEN CONFIRMED THE DECISION THRESHOLD FOR NM DIAGNOSIS. Performed By: #### C MP, CMADM #### [facility] [address] [place] [address] Dr. Jorge L Carey GARLAND 52 ng/mL Normal 16-96 [facility] Comment on above: Performed By: #### C MP, CMADM #### [facility] [address] [place] [address] Dr. Jorge L Carey CBC AUTO DIFFon 07-01-2022 BASO # 0.0 103/ul Normal 0.0-0.1 [facility] Comment on above: Performed By: #### B MP, LIPID, ALT, URIC #### [facility] [address] [place] [address] Dr. Jorge L Carey Basophils/100 WBC (Bld) 0.3 % Normal 0.2-2.0 [facility] Comment on above: Performed By: #### B MP, LIPID, ALT, URIC #### [facility] [address] [place] [address] Dr. Jorge L Carey EO # 0.1 103/ul Normal 0.0-0.7 [facility] Comment on above: Performed By: #### B MP, LIPID, ALT, URIC #### [facility] [address] [place] [address] Dr. Jorge L Carey Eosinophils/100 WBC (Bld) 0.9 % Normal 0.9-7.0 [facility] Comment on above: Performed By: #### B MP, LIPID, ALT, URIC #### [facility] [address] [place] [address] Dr. Jorge L Carey Erythrocyte distribution width (RBC) [Ratio] 11.7 % Normal 11.0-15.0 [facility] Comment on above: Performed By: #### B MP, LIPID, ALT, URIC #### [facility] [address] [place] [address] Dr. Jorge L Carey Hematocrit (Bld) [Volume fraction] 41.1 % Critically low 42.0-54.0 [facility] Comment on above: Performed By: #### B MP, LIPID, ALT, URIC #### [facility] [address] [address] [address] Jorge L Carey Hemoglobin (Bld) [Mass/Vol] 14.5 g/dL Normal 14.0-18.0 [facility] Comment on above: Performed By: #### B MP, LIPID, ALT, URIC #### [facility] [address] [place] [address] Dr. Jorge L Carey IG # 0.02 10e3/ul Normal 0.00-0.03 [facility] Comment on above: Performed By: #### B MP, LIPID, ALT, URIC #### [facility] [address] [place] [address] Dr. Jorge L Carey IG % 0.3 % Normal 0.0-0.5 [facility] Comment on above: Performed By: #### B MP, LIPID, ALT, URIC #### [facility] [address] [place] [address] Dr. Jorge L Carey LYMPH # 1.1 103/ul Critically low 1.2-3.8 [facility] Comment on above: Performed By: #### B MP, LIPID, ALT, URIC #### [facility] [address] [place] [address] Dr. Jorge L Carey Lymphocytes/100 WBC (Bld) 16.6 % Critically low 20.5-60.0 [facility] Comment on above: Performed By: #### B MP, LIPID, ALT, URIC #### [facility] [address] [place] [address] Dr. Jorge L Carey MANUAL DIFF REQ NO Normal [facility] Comment on above: Performed By: #### B MP, LIPID, ALT, URIC #### [facility] [address] [place] [address] Dr. Jorge L Carey MCH (RBC) [Entitic mass] 30.1 pg Normal 25.9-34.0 [facility] Comment on above: Performed By: #### B MP, LIPID, ALT, URIC #### [facility] [address] [place] [address] Dr. Jorge L Carey MCHC (RBC) [Mass/Vol] 35.3 g/dL Critically high 29.9-35.2 [facility] Comment on above: Performed By: #### B MP, LIPID, ALT, URIC #### [facility] [address] [place] [address] Dr. Jorge L Carey MCV (RBC) [Entitic vol] 85.4 fL Normal 80.0-94.0 [facility] Comment on above: Performed By: #### B MP, LIPID, ALT, URIC #### [facility] [address] [place] [address] Dr. Jorge L Carey MONO # 0.4 103/ul Normal 0.3-0.8 [facility] Comment on above: Performed By: #### B MP, LIPID, ALT, URIC #### [facility] [address] [place] [address] Dr. Jorge L Carey Monocytes/100 WBC (Bld) 5.1 % Normal 1.7-12.0 [facility] Comment on above: Performed By: #### B MP, LIPID, ALT, URIC #### [facility] [address] [place] [address] Dr. Jorge L Carey NEUT # 5.3 103/ul Normal 1.4-6.5 [facility] Comment on above: Performed By: #### B MP, LIPID, ALT, URIC #### [facility] [address] [place] [address] Dr. Jorge L Carey Neutrophils/100 WBC (Bld) 76.8 % Critically high 43.0-75.0 [facility] Comment on above: Performed By: #### B MP, LIPID, ALT, URIC #### [facility] [address] [place] [address] Dr. Jorge L Carey Platelet mean volume (Bld) [Entitic vol] 12.1 fL Normal 9.5-13.5 [facility] Comment on above: Performed By: #### B MP, LIPID, ALT, URIC #### [facility] [address] [place] [address] Dr. Jorge L Carey PLT 147 103/ul Critically low 150-450 [facility] Comment on above: Performed By: #### B MP, LIPID, ALT, URIC #### [facility] [address] [place], [place] [address] Dr. Jorge L Carey RBC 4.81 106/ul Normal 4.70-6.10 [facility] Comment on above: Performed By: #### B MP, LIPID, ALT, URIC #### [facility] [address] [place], [place] [address] Dr. Jorge L Carey WBC 6.9 103/ul Normal 4.0-11.0 [facility] Comment on above: Performed By: #### B MP, LIPID, ALT, URIC #### [facility] [address] [place], [place] [address] [address] HEAD WO [...] Date: 2022-07-01 20:24 Normal [facility] Covid-19 PCR (CVDTB)on 06-17 SARS-CoV-2 (COVID-19) RNA EDVIN+probe Ql (Unsp spec) Not detected Normal NOT DETECTED [facility] Comment on above: Result Comment: When diagnostic [...] for this test is supported by the [place] of Health and Human Service's declaration that [...] used). Performed By: #### C VDTBH #### [facility] [address] [place] [address] Dr. Jorge L Carey D-DIMERon 07-01-2022 D-DIMER 0.21 mg/L FEU Normal <=0.59 [facility] Comment on above: Performed By: #### B MP, LIPID, ALT, URIC #### [facility] [address] [place] [address] Dr. Jorge L Carey D-DIMER COMMENTS SEE BELOW Normal [facility] Comment on above: Result Comment: [...] MP, LIPID, ALT, URIC #### [facility] [address] [place] [address] Dr. Jorge L Carey ER URINE PROFILEon 3 Bilirubin Ql (U) Negative Normal NEGATIVE [facility] Comment on above: Performed By: #### B MP, LIPID, ALT, URIC #### [facility] [address] [place] [address] Dr. Jorge L Carey Clarity (U) CLEAR Normal CLEAR [facility] Comment on above: Performed By: #### B MP, LIPID, ALT, URIC #### [facility] [address] [address] [address] Jorge L Carey Color (U) LT. YELLOW Normal YELLOW [facility] Comment on above: Performed By: #### B MP, LIPID, ALT, URIC #### [facility] [address] [address] [address] Jorge L Carey ERUAHD A micrscopic examination will be performed if indicated. Normal [facility] Comment on above: Performed By: #### B MP, LIPID, ALT, URIC #### [facility] [address] [address] [address] Jorge L Carey Glucose Ql (U) Negative Normal NEGATIVE [facility] Comment on above: Performed By: #### B MP, LIPID, ALT, URIC #### [facility] [address] [address] [address] Jorge L Carey Hemoglobin Ql (U) Negative Normal NEGATIVE [facility] Comment on above: Performed By: #### B MP, LIPID, ALT, URIC #### [facility] [address] [address] [address] Jorge L Carey Ketones Ql (U) Negative Normal NEGATIVE [facility] Comment on above: Performed By: #### B MP, LIPID, ALT, URIC #### [facility] [address] [address] [address] Jorge L Craey LEUKOCYTES Negative Normal NEGATIVE [facility] Comment on above: Performed By: #### B MP, LIPID, ALT, URIC #### [facility] [address] [address] [address] Jorge L Carey Nitrite Ql (U) Negative Normal NEGATIVE [facility] Comment on above: Performed By: #### B MP, LIPID, ALT, URIC #### [facility] [address] [address] [address] Jorge L Carey pH (U) 6.0 [pH] Normal 5-9 [facility] Comment on above: Performed By: #### B MP, LIPID, ALT, URIC #### [facility] [address] [place] [address] Dr. Jorge L Carey SPEC GRAVITY 1.020 Normal 1.005-<=1.[address] [facility] Comment on above: Performed By: #### B MP, LIPID, ALT, URIC #### [facility] [address] [place] [address] Dr. Jorge L Carey UA PROTEIN Negative Normal NEGATIVE/ TRACE [facility] Comment on above: Performed By: #### B MP, LIPID, ALT, URIC #### [facility] [address] [place] [address] Dr. Jorge L Carey UR MICRO IND NOT INDICATED Normal [facility] Comment on above: Performed By: #### B MP, LIPID, ALT, URIC #### [facility] [address] [place] [address] Dr. Jorge L Carey Urobilinogen Qn (U) 1.0 {Ila'U}/dL Normal 0.2 - 1. 0 [facility] Comment on above: Performed By: #### B MP, LIPID, ALT, URIC #### [facility] [address] [place] [address] Dr. Jorge L Carey INFLUENZA A AND B AGon 07-01 [facility] SEE BELOW Normal [facility] Comment on above: Result Comment: Nega tive for Flu A protein angiten. Infection due to Flu A cannot be ruled out. Flu A angiten in the sample may be below the detection limit of the test. Performed By: #### I NFLUAB #### [facility] [address] [place] [address] Dr. Jorge L Carey INFLUBNEGH SEE BELOW Normal [facility] Comment on above: Result Comment: Nega tive for Flu B protein antigen. Infection due to Flu B cannot be ruled out. Flu B antigen in the sample may be below the detection limit of the test. Performed By: #### I NFLUAB #### [facility] [address] [place] [address] Dr. Jorge L Carey INFLUENZA A AG Negative Normal NEGATIVE SEE COMMENT [facility] Comment on above: Performed By: #### I NFLUAB #### [facility] [address] [address] [address] Jorge L Carey INFLUENZA B AG Negative Normal NEGATIVE SEE COMMENT [facility] Comment on above: Performed By: #### I NFLUAB #### [facility] [address] [address] [address] Jorge L Carey POINT OF CARE GLUCOSEon 06-17 Glucose [Mass/Vol] 130 mg/dL Critically high 74-106 [facility] Comment on above: Performed By: #### B MP, LIPID, ALT, URIC #### [facility] [address] [address] [address] Jorge L Carey PROF 14(COMP METB)on 023 Albumin [Mass/Vol] 3.7 g/dL Normal 3.4-5.0 [facility] Comment on above: Performed By: #### C IGGY, CMADM #### [facility] [address] [place] [address] Dr. Jorge L Carey Albumin/Globulin [Mass ratio] 1.2 {ratio} Normal [facility] Comment on above: Performed By: #### C IGGY, CMADM #### [facility] [address] [place] [address] Dr. Jorge L Carey ALP [Catalytic activity/Vol] 49 U/L Normal 46-116 [facility] Comment on above: Performed By: #### C IGGY, CMADM #### [facility] [address] [address] [address] Jorge L Carey ALT [Catalytic activity/Vol] 30 U/L Normal 16-63 [facility] Comment on above: Performed By: #### C MP, CMADM #### [facility] [address] [place] [address] Dr. Jorge L Carey Anion gap [Moles/Vol] 12.7 mmol/L Normal [facility] Comment on above: Performed By: #### C MP, CMADM #### [facility] [address] [place] [address] Dr. Jorge L Carey AST [Catalytic activity/Vol] 21 U/L Normal 15-37 [facility] Comment on above: Performed By: #### C IGGY, CMADM #### [facility] [address] [place] [address] Dr. Jorge L Carey Bilirubin [Mass/Vol] 0.5 mg/dL Normal 0.2-1.0 [facility] Comment on above: Performed By: #### C IGGY, CMADM #### [facility] [address] [place] [address] Dr. Jorge L Carey Calcium [Mass/Vol] 8.9 mg/dL Normal 8.5-10.1 [facility] Comment on above: Performed By: #### C IGGY, CMADM #### [facility] [address] [place] [address] Dr. Jorge L Carey Chloride [Moles/Vol] 100 mmol/L Normal 98-107 [facility] Comment on above: Performed By: #### C IGGY, CMADM #### [facility] [address] [place] [address] Dr. Jorge L Carey CO2 [Moles/Vol] 29.0 mmol/L Normal 21.0-32.0 [facility] Comment on above: Performed By: #### C IGGY, CMADM #### [facility] [address] [place] [address] Dr. Jorge L Carey Creatinine [Mass/Vol] 1.04 mg/dL Normal 0.70-1.30 [facility] Comment on above: Performed By: #### C IGGY, CMADM #### [facility] [address] [place] [address] Dr. Jorge L Carey EGFR-AF GUINEAN >60 Normal >=60 [facility] Comment on above: Performed By: #### C IGGY, CMADM #### [facility] [address] [place] [address] Dr. Jorge L Carey EGFR-NON AF GUINEAN >60 Normal >=60 [facility] Comment on above: Performed By: #### C IGGY, CMADM #### [facility] [address] [place] [address] Dr. Jorge L Carey Globulin (S) [Mass/Vol] 3.1 g/dL Normal [facility] Comment on above: Performed By: #### C IGGY, RAMYDM #### [facility] [address] [place] [address] Dr. Jorge L Carey Glucose [Mass/Vol] 140 mg/dL Critically high 74-106 T [facility] Comment on above: Performed By: #### C IGGY, CMADM #### [facility] [address] [place] [address] Dr. Jorge L Carey Potassium [Moles/Vol] 3.7 mmol/L Normal 3.5-5.1 [facility] Comment on above: Performed By: #### C IGGY, RAMYDM #### [facility] [address] [place] [address] Dr. Jorge L Carey Protein [Mass/Vol] 6.8 g/dL Normal 6.4-8.2 [facility] Comment on above: Performed By: #### C RAMY PARKINSONDM #### [facility] [address] [place] [address] Dr. Jorge L Carey Sodium [Moles/Vol] 138 mmol/L Normal 136-145 [facility] Comment on above: Performed By: #### C IGGY, RAMYDM #### [facility] [address] [place] [address] Dr. Jorge L Carey Urea nitrogen [Mass/Vol] 13.0 mg/dL Normal 7.0-18.0 [facility] Comment on above: Performed By: #### C IGGY, RAMYDM #### [facility] [address] [place] [address] Dr. Jorge L Carey Urea nitrogen/Creatinine [Mass ratio] 12.5 mg/mg Normal [facility] Comment on above: Performed By: #### C IGGY, CMADM #### [facility] [address] [place] [address] Dr. Jorge L Carey TROPONIN, HIGH SENSITIVITYon 07-01-2022 HSTROP 10.9 pg/mL Normal 4.0-76.1 [facility] Comment on above: Result Comment: CUT- OFF POINTS HAVE BEEN ESTABLISHED BASED ON THE FOURTH UNIVERSAL DEFINITIONS OF MYOCARDIAL INFARCTION. THE UPPER REFERENCE LIMIT (URL) OF TROPONIN, DEFINED THE 99TH PERCENTILE OF cTnI DISTRIBUTION IN A REFERENCE POPULATION, HAS BEEN CONFIRMED THE DECISION THRESHOLD FOR NM DIAGNOSIS. Performed By: #### B MP, LIPID, ALT, URIC #### [facility] [address] [place] [address] Dr. Jorge L Carey XR CHEST 1 [...] Date: 2022-07-01 19:57 Normal [facility] CBC AUTO DIFFon 04-18-2022 BASO # 0.0 103/ul Normal 0.0-0.1 [facility] Comment on above: Performed By: #### C BC #### [facility] [address] [place] [address] Dr. Jorge L Carey Basophils/100 WBC (Bld) 0.7 % Normal 0.2-2.0 [facility] Comment on above: Performed By: #### C BC #### [facility] [address] [place] [address] Dr. Jorge L Carey EO # 0.2 103/ul Normal 0.0-0.7 [facility] Comment on above: Performed By: #### C BC #### [facility] [address] [place] [address] Dr. Jorge L Carey Eosinophils/100 WBC (Bld) 2.6 % Normal 0.9-7.0 [facility] Comment on above: Performed By: #### C BC #### [facility] [address] [place] [address] Dr. Jorge L Carey Erythrocyte distribution width (RBC) [Ratio] 11.5 % Normal 11.0-15.0 [facility] Comment on above: Performed By: #### C BC #### [facility] [address] [place] [address] Dr. Jorge L Carey Hematocrit (Bld) [Volume fraction] 44.7 % Normal 42.0-54.0 [facility] Comment on above: Performed By: #### C BC #### [facility] [address] [place] [address] Dr. Jorge L Carey Hemoglobin (Bld) [Mass/Vol] 15.5 g/dL Normal 14.0-18.0 [facility] Comment on above: Performed By: #### C BC #### [facility] [address] [place] [address] Dr. Jorge L Carey IG # 0.01 10e3/ul Normal 0.00-0.03 [facility] Comment on above: Performed By: #### C BC #### [facility] [address] [place] [address] Dr. Jorge L Carey IG % 0.2 % Normal 0.0-0.5 [facility] Comment on above: Performed By: #### C BC #### [facility] [address] [place] [address] Dr. Jorge L Carey LYMPH # 1.3 103/ul Normal 1.2-3.8 [facility] Comment on above: Performed By: #### C BC #### [facility] [address] [place] [address] Dr. Jorge L Carey Lymphocytes/100 WBC (Bld) 21.3 % Normal 20.5-60.0 [facility] Comment on above: Performed By: #### C BC #### [facility] [address] [place] [address] Dr. Jorge L Carey MANUAL DIFF REQ NO Normal [facility] Comment on above: Performed By: #### C BC #### [facility] [address] [place] [address] Dr. Jorge L Carey MCH (RBC) [Entitic mass] 30.1 pg Normal 25.9-34.0 [facility] Comment on above: Performed By: #### C BC #### [facility] [address] [place] [address] Dr. Jorge L Carey MCHC (RBC) [Mass/Vol] 34.7 g/dL Normal 29.9-35.2 [facility] Comment on above: Performed By: #### C BC #### [facility] [address] [address] [address] Jorge L Carey MCV (RBC) [Entitic vol] 86.8 fL Normal 80.0-94.0 [facility] Comment on above: Performed By: #### C BC #### [facility] [address] [address] [address] Jorge L Carey MONO # 0.4 103/ul Normal 0.3-0.8 [facility] Comment on above: Performed By: #### C BC #### [facility] [address] [place] [address] Dr. Jorge L Carey Monocytes/100 WBC (Bld) 7.2 % Normal 1.7-12.0 [facility] Comment on above: Performed By: #### C BC #### [facility] [address] [place] [address] Dr. Jorge L Carey NEUT # 4.1 103/ul Normal 1.4-6.5 [facility] Comment on above: Performed By: #### C BC #### [facility] [address] [place] [address] Dr. Jorge L Carey Neutrophils/100 WBC (Bld) 68.0 % Normal 43.0-75.0 [facility] Comment on above: Performed By: #### C BC #### [facility] [address] [place] [address] Dr. Jorge L Carey Platelet mean volume (Bld) [Entitic vol] 12.0 fL Normal 9.5-13.5 [facility] Comment on above: Performed By: #### C BC #### [facility] [address] [place] [address] Dr. Jorge L Carey PLT 163 103/ul Normal 150-450 [facility] Comment on above: Performed By: #### C BC #### [facility] [address] [place] [address] Dr. Jorge L Carey RBC 5.15 106/ul Normal 4.70-6.10 [facility] Comment on above: Performed By: #### C BC #### [facility] [address] [address] [address] Jorge L Carey WBC 6.1 103/ul Normal 4.0-11.0 [facility] Comment on above: Performed By: #### C BC #### [facility] [address] [address] [address] Jorge L Carey GLYCOHEMOGLOBIN A1Con 2021 ADA RECOMMENDATION SEE BELOW Normal [facility] Comment on above: Result Comment: ADA RECOMMENDED LIMIT 4.0 - 6.0 ADA THERAPEUTIC TARGET < 7.0 ACTION SUGGESTED > 7.0 Performed By: #### B MP, LIPID, ALT, URIC #### [facility] [address] [address] [address] Jorge L Carey Glucose [Mass/Vol] 146 mg/dL Normal [facility] Comment on above: Performed By: #### B MP, LIPID, ALT, URIC #### [facility] [address] [address] [address] Jorge L Carey HbA1c (Bld) [Mass fraction] 6.7 % Critically high 4.5-6.2 [facility] Comment on above: Performed By: #### B MP, LIPID, ALT, URIC #### [facility] [address] [address] [address] Jorge L Carey LIPID PROFILEon 04-18-2022 CHOL-HDL RATIO NORM SEE BELOW Normal [facility] Comment on above: Result Comment: 3.3 - 4.4 LOW RISK 4.4 - 7.1 AVERAGE RISK 7.1 - 11.0 MODERATE RISK >11.0 HIGH RISK Performed By: #### B MP, LIPID, ALT, URIC #### [facility] [address] [address] [address] Jorge L Carey Cholesterol [Mass/Vol] 117 mg/dL Normal <=200 [facility] Comment on above: Performed By: #### B MP, LIPID, ALT, URIC #### [facility] [address] [address] [address] Jorge L Carey Cholesterol in HDL [Mass/Vol] 48 mg/dL Normal 40-60 [facility] Comment on above: Performed By: #### B MP, LIPID, ALT, URIC #### [facility] [address] [address] [address] Jorge L Carey Cholesterol in LDL [Mass/Vol] 50.6 mg/dL Normal [facility] Comment on above: Performed By: #### B MP, LIPID, ALT, URIC #### [facility] [address] [address] [address] Jorge L Carey Cholesterol.total/Cho lesterol in HDL [Mass ratio] 2.4 {ratio} Normal [facility] Comment on above: Performed By: #### B MP, LIPID, ALT, URIC #### [facility] [address] [address] [address] Jorge L Carey HDL NORMAL > or = 60 mg/dl - LOW CARDIOVASCULAR RISK <40 mg/dl - HIGH CARDIOVASCULAR RISK Normal [facility] Comment on above: Performed By: #### B MP, LIPID, ALT, URIC #### [facility] [address] [address] [address] Jorge L Carey LDL CALC NORMAL SEE BELOW Normal [facility] Comment on above: Result Comment: <100 mg/dl OPTIMAL 100 - 129 mg/dl NEAR OR ABOVE OPTIMAL 130 - 159 mg/dl BORDERLINE HIGH 160 - 189 mg/dl HIGH >190 mg/dl VERY HIGH Performed By: #### B MP, LIPID, ALT, URIC #### [facility] [address] [address] [address] Jorge L Carey Triglyceride [Mass/Vol] 92 mg/dL Normal <=150 [facility] Comment on above: Performed By: #### B MP, LIPID, ALT, URIC #### [facility] [address] [address] [address] Jorge L Carey VLDL CALC 18.4 mg/dL Normal [facility] Comment on above: Performed By: #### B MP, LIPID, ALT, URIC #### [facility] [address] [address] [address] Jorge L Carey MICROALBUMIN, RAND URon 11-0 mALB <1.3 Normal <=30.0 [facility] Comment on above: Performed By: #### M ALBR #### [facility] [address] [address] [address] Jorge L Carey PROF CHEM 8 (BAS METB)on Anion gap [Moles/Vol] 9.5 mmol/L Normal [facility] Comment on above: Performed By: #### B MP, LIPID, ALT, URIC #### [facility] [address] [place] [address] Dr. Jorge L Carey Calcium [Mass/Vol] 8.6 mg/dL Normal 8.5-10.1 [facility] Comment on above: Performed By: #### B MP, LIPID, ALT, URIC #### [facility] [address] [place] [address] Dr. Jorge L Carey Chloride [Moles/Vol] 102 mmol/L Normal 98-107 [facility] Comment on above: Performed By: #### B MP, LIPID, ALT, URIC #### [facility] [address] [place] [address] Dr. Jorge L Carey CO2 [Moles/Vol] 30.8 mmol/L Normal 21.0-32.0 [facility] Comment on above: Performed By: #### B MP, LIPID, ALT, URIC #### [facility] [address] [place] [address] Dr. Jorge L Carey Creatinine [Mass/Vol] 0.95 mg/dL Normal 0.70-1.30 [facility] Comment on above: Performed By: #### B MP, LIPID, ALT, URIC #### [facility] [address] [place] [address] Dr. Jorge L Carey EGFR-AF GUINEAN >60 Normal >=60 [facility] Comment on above: Performed By: #### B MP, LIPID, ALT, URIC #### [facility] [address] [place] [address] Dr. Jorge L Carey EGFR-NON AF GUINEAN >60 Normal >=60 [facility] Comment on above: Performed By: #### B MP, LIPID, ALT, URIC #### [facility] [address] [address] [address] Jorge L Carey Glucose [Mass/Vol] 142 mg/dL Critically high 74-106 T [facility] Comment on above: Performed By: #### B MP, LIPID, ALT, URIC #### [facility] [address] [place] [address] Dr. Jorge L Carey Potassium [Moles/Vol] 4.3 mmol/L Normal 3.5-5.1 [facility] Comment on above: Performed By: #### B MP, LIPID, ALT, URIC #### [facility] [address] [place] [address] Dr. Jorge L Carey Sodium [Moles/Vol] 138 mmol/L Normal 136-145 [facility] Comment on above: Performed By: #### B MP, LIPID, ALT, URIC #### [facility] [address] [place] [address] Dr. Jorge L Carey Urea nitrogen [Mass/Vol] 14.0 mg/dL Normal 7.0-18.0 [facility] Comment on above: Performed By: #### B MP, LIPID, ALT, URIC #### [facility] [address] [place] [address] Dr. Jorge L Carey Urea nitrogen/Creatinine [Mass ratio] 14.7 mg/mg Normal [facility] Comment on above: Performed By: #### B MP, LIPID, ALT, URIC #### [facility] [address] [place] [address] Dr. Jorge L Carey SGPTon 04-18-2022 ALT [Catalytic activity/Vol] 27 U/L Normal 16-63 [facility] Comment on above: Performed By: #### B MP, LIPID, ALT, URIC #### [facility] [address] [place] [address] Dr. Jorge L Carey URIC ACID SERUMon 04-18-2022 Urate [Mass/Vol] 5.5 mg/dL Normal 3.5-7.2 [facility] Comment on above: Performed By: #### B MP, LIPID, ALT, URIC #### [facility] [address] [place] [address] Dr. Jorge L Carey GLYCOHEMOGLOBIN A1Con 08-06- 2022 ADA RECOMMENDATION SEE BELOW Normal [facility] Comment on above: Result Comment: ADA RECOMMENDED LIMIT 4.0 - 6.0 ADA THERAPEUTIC TARGET < 7.0 ACTION SUGGESTED > 7.0 Performed By: #### B MP, LIPID, ALT, URIC #### [facility] [address] [address] [address] Jorge L Carey Glucose [Mass/Vol] 160 mg/dL Normal [facility] Comment on above: Performed By: #### B MP, LIPID, ALT, URIC #### [facility] [address] [address] [address] Jorge L Carey HbA1c (Bld) [Mass fraction] 7.2 % Critically high 4.5-6.2 [facility] Comment on above: Performed By: #### B MP, LIPID, ALT, URIC #### [facility] [address] [place] [address] Dr. Jorge L Carey GLYCOHEMOGLOBIN A1Con 2021 ADA RECOMMENDATION ADA THERAPEUTIC TARGET 6.0 - 7.0 ACTION SUGGESTED > 7.0 Normal [facility] Comment on above: Performed By: #### B MP, LIPID, ALT, URIC #### [facility] [address] [address] [address] Jorge L Carey Glucose [Mass/Vol] 177 mg/dL Normal [facility] Comment on above: Performed By: #### B MP, LIPID, ALT, URIC #### [facility] [address] [address] [address] Jorge L Carey HbA1c (Bld) [Mass fraction] 7.8 % Critically high <=6.0 [facility] Comment on above: Performed By: #### B MP, LIPID, ALT, URIC #### [facility] [address] [place] [address] Dr. Jorge L Carey [facility] [employer] 09-17-2020 Glucose [Mass/Vol] 151 mg/dL Normal [facility] Comment on above: Result Comment: PERF ORMED BY: [address] [place] [address] PATHOLOGIST [employer] SUSAN SEXTON M.D. Performed By: #### O UTREACH GLYCO #### [facility] [address] [place] [address] [facility] HbA1c (Bld) [Mass fraction] 6.9 % High 4.3-5.6 [facility] Comment on above: Result Comment: Incr eased risk for diabetes: 5.7 - 6.4 diabetes: >6.4 glycemic control for adults with diabetes: <7.0 Performed By: #### O UTREACH GLYCO #### [facility] [address] [place] [address] [facility] Vital Signs Date Time Vital Sign Value Performing Clinician Facility 02-18-2024 09:37-0400 Body height 190.5 cm [facility] 02-18-2024 09:37-0400 Body mass index (BMI) [Ratio] 32.1 kg/m2 [facility] 02-18-2024 09:37-0400 Body weight 116.74 kg [facility] 02-18-2024 09:37-0400 Diastolic blood pressure 81 mm[Hg] [facility] 02-18-2024 09:37-0400 Heart rate 76 /min [facility] 02-18-2024 09:37-0400 Respiratory rate 12 /min [facility] 02-18-2024 09:37-0400 Systolic blood pressure 136 mm[Hg] [facility] 10-18-2023 09:06-0400 Body height 190.5 cm [facility] 10-18-2023 09:06-0400 Body mass index (BMI) [Ratio] 31.8 kg/m2 [facility] 10-18-2023 09:06-0400 Body weight 115.32 kg [facility] 10-18-2023 09:06-0400 Diastolic blood pressure 77 mm[Hg] [facility] 10-18-2023 09:06-0400 Heart rate 80 /min [facility] 10-18-2023 09:06-0400 Respiratory rate 12 /min [facility] 10-18-2023 09:06-0400 Systolic blood pressure 116 mm[Hg] [facility] 07-08-2023 09:00-0500 Body height 190.5 cm Bogdan Ball Other [employer] Other 07-08-2023 09:00-0500 Body mass index (BMI) [Ratio] 32.62 kg/m2 Bogdan Ball Other [employer] Other 07-08-2023 09:00-0500 Body weight 118.39 kg Bogdan Ball Other [employer] Other 07-08-2023 09:00-0500 Diastolic blood pressure 81 mm[Hg] Bogdan Ball Other [employer] Other 07-08-2023 09:00-0500 Respiratory rate 12 /min Bogdan Ball Other [employer] Other 07-08-2023 09:00-0500 Systolic blood pressure 117 mm[Hg] Bogdan Ball Other [employer] Other 05-01-2023 08:30-0500 Body height 190.5 cm Bogdan Ball Other [employer] Other 05-01-2023 08:30-0500 Body mass index (BMI) [Ratio] 32.19 kg/m2 Bogdan Ball Other [employer] Other 05-01-2023 08:30-0500 Body weight 116.85 kg Bogdan Ball Other [employer] Other 05-01-2023 08:30-0500 Diastolic blood pressure 81 mm[Hg] Bogdan Ball Other [employer] Other 05-01-2023 08:30-0500 Respiratory rate 12 /min Bogdan Ball Other [employer] Other 05-01-2023 08:30-0500 Systolic blood pressure 135 mm[Hg] Bogdan Ball Other [employer] Other 12-26-2022 08:30-0400 Body height 190.5 cm Bogdan Ball Other [employer] Other 12-26-2022 08:30-0400 Body mass index (BMI) [Ratio] 31.54 kg/m2 Bogdan Ball Other [employer] Other 12-26-2022 08:30-0400 Body weight 114.49 kg Bogdan Ball Other [employer] Other 12-26-2022 08:30-0400 Diastolic blood pressure 85 mm[Hg] Bogdan Ball Other [employer] Other 12-26-2022 08:30-0400 Respiratory rate 12 /min Bogdan Ball Other [employer] Other 12-26-2022 08:30-0400 Systolic blood pressure 139 mm[Hg] Bogdan Ball Other [employer] Other 11-09-2022 10:58-0400 Blood Pressure Location Hola GARCIA [facility] 11-09-2022 10:58-0400 Diastolic blood pressure 80 mm[Hg] Hola GARCIA [facility] 11-09-2022 10:58-0400 Heart rate 78 /min Hola GARCIA [facility] 11-09-2022 10:58-0400 Respiratory rate 16 /min Holaconnor GARCIA [facility] 11-09-2022 10:58-0400 Systolic blood pressure 130 mm[Hg] Hola GARCIA [facility] 10-05-2022 12:15-0400 Body height 190.5 cm Bogdan Ball Other [employer] Other 10-05-2022 12:15-0400 Body mass index (BMI) [Ratio] 31.17 kg/m2 Bogdan Ball Other [employer] Other 10-05-2022 12:15-0400 Body weight 113.13 kg Bogdan Ball Other [employer] Other 10-05-2022 12:15-0400 Diastolic blood pressure 95 mm[Hg] Bogdan Ball Other [employer] Other 10-05-2022 12:15-0400 Respiratory rate 12 /min Bogdan Ball Other [employer] Other 10-05-2022 12:15-0400 Systolic blood pressure 168 mm[Hg] Bogdan Ball Other [employer] Other 08-23-2022 08:30-0500 Body height 190.5 cm Bogdan Ball Other [employer] Other 08-23-2022 08:30-0500 Body mass index (BMI) [Ratio] 31.42 kg/m2 Bogdan Ball Other [employer] Other 08-23-2022 08:30-0500 Body weight 114.04 kg Bogdan Ball Other [employer] Other 08-23-2022 08:30-0500 Diastolic blood pressure 86 mm[Hg] Bogdan Ball Other [facility] [employer] Other 08-23-2022 08:30-0500 Respiratory rate 12 /min Bogdan Green Other [facility] [employer] Other 08-23-2022 08:30-0500 Systolic blood pressure 132 mm[Hg] Bogdan Green Other [facility] [employer] Other 10-06-2021 08:14-0400 Blood Pressure Location Hola GARCIA [facility] 10-06-2021 08:14-0400 Diastolic blood pressure 98 mm[Hg] Holaconnor GARCIA [facility] 10-06-2021 08:14-0400 Heart rate 78 /min Holaconnor GARCIA [facility] 10-06-2021 08:14-0400 Systolic blood pressure 145 mm[Hg] Hola GARCIA [facility] Encounters Encounter Date Encounter Type Care Provider Facility Start: 04-03-2024 ambulatory Hola GARCIA Facili ty:[facility] Start: 02-18-2024 End: 02-18-2024 ambulatory [facility] Work Phone: Start: 02-18-2024 End: 02-18-2024 Patient encounter procedure [facility] Work Phone: Start: 02-11-2024 Non-patient / Non-visit [facility] Work Phone: Start: 10-18-2023 End: 10-18-2023 ambulatory [facility] Work Phone: Start: 10-18-2023 End: 10-18-2023 [facility] Work Phone: Start: 10-12-2023 Non-patient / Non-visit [facility] Work Phone: Start: 08-23-2023 Non-patient / Non-visit [facility] Work Phone: Start: 08-19-2023 End: 08-20-2023 ambulatory Dm Cyr MD Facility: [place] Start: 08-16-2023 Non-patient / Non-visit [facility] Work Phone: Start: 07-30-2023 Non-patient / Non-visit [facility] Work Phone: Start: 07-29-2023 End: 07-30-2023 ambulatory Dm Cyr MD [employer] Other Start: 07-29-2023 Telephone encounter Bogdan Green [facility] Start: 07-15-2023 End: 07-16-2023 ambulatory Dm Cyr MD Facility: [facility] Start: 07-08-2023 End: 07-08-2023 ambulatory Bogdan Green Other [employer] Other Start: 07-08-2023 Office outpatient vi sit 25 minutes Bogdan Green [facility] Start: 06-24-2023 End: 06-25-2023 ambulatory Dm Cyr MD Facility:[facility] Start: 05-20-2023 End: 05-21-2023 ambulatory Dm Cyr MD Facility: [facility] Start: 05-10-2023 End: 05-10-2023 ambulatory Bogdan Green Other [employer] Other Start: 05-10-2023 Office outpatient vi sit 15 minutes Bogdan Ball [facility] Start: 05-01-2023 End: 05-01-2023 ambulatory Bogdan Green Other [employer] Other Start: 05-01-2023 Patient encounter procedure Bogdan Green [facility] Start: 04-24-2023 End: 04-24-2023 ambulatory Bogdan Green Other [employer] Other Start: 04-24-2023 Telephone encounter Bogdan Ball [facility] Start: 02-25-2023 End: 02-25-2023 ambulatory Bogdan Peter Other [employer] Other Start: 02-25-2023 Telephone encounter Bogdan Green [facility] Start: 12-27-2022 End: 12-27-2022 ambulatory Bogdan Green Other [employer] Other Start: 12-27-2022 Telephone encounter Bogdan Ball [facility] Start: 12-26-2022 End: 12-26-2022 ambulatory Bogdan Green Other [employer] Other Start: 12-26-2022 Office outpatient vi sit 25 minutes Bogdan Green [facility] Start: 11-19-2022 End: 11-19-2022 ambulatory Bogdan Green Other [employer] Other Start: 11-19-2022 Telephone encounter Bogdan Ball [facility] Start: 11-09-2022 End: 11-09-2022 Patient encounter procedure Hola GARCIA [facility] Start: 10-22-2022 End: 10-22-2022 ambulatory Bogdan Green Other [employer] Other Start: 10-22-2022 Telephone encounter Bogdan Ball [facility] Start: 10-18-2022 End: 10-18-2022 ambulatory Bogdan Peter Other [employer] Other Start: 10-18-2022 Telephone encounter Bogdan Peter [facility] Start: 10-05-2022 End: 10-05-2022 ambulatory Bogdan Green Other [employer] Other Start: 10-05-2022 Office outpatient vi sit 15 minutes Bogdan Peter [facility] Start: 09-27-2022 End: 09-27-2022 ambulatory Bogdan Green Other [employer] Other Start: 09-27-2022 Telephone encounter Bogdan Green [facility] Start: 09-25-2022 End: 09-25-2022 ambulatory Bogdan Green Other [employer] Other Start: 09-25-2022 Telephone encounter Bogdan Green [facility] Start: 09-21-2022 End: 09-21-2022 ambulatory Bogdan Green Other [employer] Other Start: 09-21-2022 Telephone encounter Bogdan Green [facility] Start: 08-23-2022 End: 08-23-2022 ambulatory Bogdan Green Other [employer] Other Start: 08-23-2022 Office outpatient vi sit 25 minutes Bogdan Green [facility] Start: 08-17-2022 End: 08-18-[address] BOGDAN GREEN Facility:[facility] Start: 08-14-2022 End: 08-14-2022 ambulatory Bogdan Green Other [employer] Other Start: 08-14-2022 Telephone encounter Bogdan Green [facility] Start: 07-01-2022 End: 07-01-[address] BOGDAN GREEN Facility:[facility] Start: 04-25-2022 Adult health examination Bogdan Green Other [employer] Other Start: 04-18-2022 End: 04-19-[address] BOGDAN GREEN Facility:[facility] Start: 01-20-2022 End: 01-21-2022 ambulatory NONE LISTED REQUEST Facility:[facility] Start: 10-06-2021 End: 10-06-2021 Patient encounter procedure Hola GARCIA [facility] Start: 09-16-2021 End: 09-17-[address] HOLA GARCIA . Facility:[facility] Start: 09-15-2021 End: 09-16-2021 ambulatory NONE LISTED REQUEST Facility:[facility] Start: 08-29-[address] BOGDAN GREEN Facili ty:[facility] Procedures Date Procedure Procedure Detail Performing Clinician Start: 09-16-[address] NORRIS GREEN Comment on above: Performed By: #### B MP, LIPID, ALT, URIC #### [facility] [address] [place] [address] Dr. Jorge L Carey Start: 03-29-2017 General [...] Care Activity Detail Author US Heart Transthoracic [facility] XR Chest 2 Views [facility] Immunizations Immunization Date Immunization Notes Care Provider Fa cility 04-29-2023 zoster vaccine recombinant Bogdan Green Other [facility] 04-26-2023 influenza virus vaccine, unspecified formulation [facility] 04-26-2023 influenza, high dose seasonal, preservative-free Bogdan Green Other [employer] Other 02-26-2023 zoster vaccine recombinant Bogdan Green Other [facility] 04-25-2022 pneumococcal 20-alber nt conjugate vaccine Hola GARCIA [facility] 04-16-2022 influenza virus vaccine, split virus (incl. purified surface antigen) Bogdan Green Other [employer] Other 04-16-2022 influenza virus vaccine, unspecified formulation Hola GARCIA [facility] 03-23-2022 SARS-CoV-2 (COVID-19 ) [id number] Hola GARCIA [facility] 05-08-2021 SARS-CoV-2 (COVID-19 ) mRNA BNT-162b2 vax Hola GARCIA [facility] 04-22-2021 influenza virus vaccine, split virus (incl. purified surface antigen) Bogdan Green Other [employer] Other 04-22-2021 influenza virus vaccine, unspecified formulation Hola GARCIA [facility] 03-30-2021 influenza virus vaccine, unspecified formulation Hola GARCIA [facility] 09-16-2020 COVID-19, mRNA, LNP- S, PF, 30 mcg/0.3 mL dose; 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: [Wriggle COVID-19 Vaccine] Hola GARCIA [facility] Comment on above: Reason for Medicatio n: Prophylaxis 08-26-2020 COVID-19, mRNA, LNP- S, PF, 30 mcg/0.3 mL dose; 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: [Pfizer-BioNTech COVID-19 Vaccine] Hola GARCIA [facility] Comment on above: Reason for Medicatio n: Prophylaxis 04-16-2020 influenza virus vaccine, split virus (incl. purified surface antigen) Bogdan Green Other [employer] Other 04-16-2020 influenza virus vaccine, unspecified formulation Hola GARCIA [facility] pneumococcal Conjuga te, unspecified formulation; 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: [Need for prophylactic vaccination against Streptococcus pneumoniae (pneumococcus)] Bogdan Green Other [employer] Other Payers Date Payer Category Payer Medicare 2022 Unknown 2021 Medicare [id number] 2020 Unknown [id number] 1959 Medicare [id number] 1959 Self-pay [id number] 1959 Unknown [id number] 1959 Unknown [id number] 1956 Unknown [id number] .16.84 [id number] 1956 Unknown [id number] .16.84 [id number] 1956 Unknown [id number] .16.84 [id number] 1956 Unknown [id number] .16.84 [id number] 1956 Unknown [id number] 2.16.84 [id number] 1956 Unknown [id number] 2.16. [id number] 1956 Unknown [id number] 2.16. [id number] 1956 Unknown [id number] 2.16. [id number] 1956 Unknown [id number] 2.16. [id number] 1956 Unknown [id number] 2.16. [id number] 1956 Unknown [id number] 2.16.8 [id number] Blue Cross Blue Shield [id number] Self-pay Self Pay [id number] Unknown [id number] 2.16.84 [id number] Unknown [id number] 2.16.84 [id number] Social History Date Type Detail Facility Start: 10-06-2021 End: 07-27-2023 Tobacco smoking status Never smoked tobacco (finding) [facility] Sex Assigned At Male [facility] Tobacco smoking status Never [facility] Start: 1955 Sex Assigned At Male [facility] Medical Equipment Procedure Code Equipment Code [...] 11-09-2022 Functional Status N/A [facility] Clinical Notes 10-06-2021 to 07-29-2023 Note Date & Type Note Facility 07-29-2023 Evaluation note Encounter Date Diagnosis Assessment Notes Jul, Type 2 diabetes mellitus with hyperglycemia , without long-term current use of insulin (ICD-10 - E11.65) [facility] Other 01-22-2024 Evaluation note* Encounter Date Diagnosis [...] index [BMI] 32.0-32.9, adult (ICD-10 - Z68.32) [facility] Other 11-24-2023 Evaluation note* Encounter Date Diagnosis [...] Microalbumin, Dilated eye exam and Foot exam [facility] Other 11-15-2023 Evaluation note* Encounter Date Diagnosis [...] flares Sep, Thrombocytopenia, unspecified (ICD-10 - D69.6) [facility] Other 11-15-2023 Evaluation note* Encounter Date Diagnosis [...] flares Sep, Thrombocytopenia, unspecified (ICD-10 - D69.6) [facility] Other 11-08-2023 Evaluation note* Encounter Date Diagnosis Assessment Notes Treatment Notes Treatment Clinical Notes Apr, Screening PSA (prostate specific antigen) (ICD-10 - Z12.5) Apr, Type 2 diabetes mellitus with hyperglycemia, without long-term current use of insulin (ICD-10 - E11.65) Apr, Elevated cholesterol (ICD-10 - E78.00) Apr, Primary hypertension (ICD-10 - I10) Sep, Thrombocytopenia, unspecified (ICD-10 - D69.6) Thrombocytopenia [facility] Other 07-12-2023 Evaluation note* Encounter Date Diagnosis [...] (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 (ICD-10 - Z79.4) [facility] Other 05-26-2023 Hospital Discharge instructions Patient Education [...] treatment? Where to find more information [employer]: www.cancer.org [employer]: www.auanet.org Contact a health care [...] provider. Document Revised: 11/27/2021 Document Reviewed: 11/27/2021 [employer] Patient Education 2022 [employer]. Follow Up Care 10/06/2021 08:40:21 With:JOSE MCMANUS, Hola Rushing, URL Address: [facility] [address] [place] [address]- When: Unknown [facility] Kyree 05-08-2023 Evaluation note* Encounter Date Diagnosis Assessment Notes Treatment Notes Treatment Clinical Notes October, Primary hypertension (ICD-10 - I10) [facility] Other 05-04-2023 Evaluation note* Encounter Date Diagnosis Assessment Notes Treatment Notes Treatment Clinical Notes October, Primary hypertension (ICD-10 - I10) [facility] Other 04-21-2023 Evaluation note* Encounter Date Diagnosis [...] and Glimepiride appear to be controlling BS. 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) [facility] Other 04-11-2023 Evaluation note* Encounter Date Diagnosis Assessment Notes Treatment Notes Treatment Clinical Notes Sep, Type 2 diabetes mellitus with hyperglycemia, without long-term current use of insulin (ICD-10 - E11.65) [facility] Other 04-07-2023 Evaluation note* Encounter Date Diagnosis Assessment Notes Treatment Notes Treatment Clinical Notes Sep, Type 2 diabetes mellitus with hyperglycemia (ICD-10 - E11.65) [facility] Other 03-09-2023 Evaluation note* Encounter Date Diagnosis [...] Reviewed red flag symptoms and nerve impingement [facility] Other 02-28-2023 Evaluation note* Encounter Date Diagnosis Assessment Notes Treatment Notes Treatment Clinical Notes Jul, Type 2 diabetes mellitus with hyperglycemia, without long-term current use of insulin (ICD-10 - E11.65) [facility] Other 04-22-2022 Hospital Discharge instructions Patient Education [...] urethra. Follow these instructions at home: Take izpt-evn-avpwsyw and prescription medicines only as told by [...] 06/03/2006 Document Revised: 04/28/2019 Document Reviewed: 07/08/2017 [employer] Patient Education 2020 [employer]. Follow Up Care 10/03/2020 15:00:49 With:Hola GARCIA MD, URL Address: [facility] [address] [place] [address]- [phone] When:10/06/2022 [facility] evaluation + Plan note Future Appointments Appointment Date:10/12/2022 08:00:00 AM Scheduled Provider:Hola GARCIA MD Location:[facility] Appointment Type:URO Office Visit Diagnostic Tests Pending * PSA Total 10/06/21 [facility] evaluation + Plan note Future Appointments Appointment Date:11/18/2023 08:45:00 AM Scheduled Provider:Hola GARCIA MD Location:[facility] Appointment Type:URO Office Visit Diagnostic Tests Pending * PSA Free & Total 11/09/22 [facility] evaluation noteNort better. Other [facility] Other Evaluation note* Diagnosis Onset Date Resolution Status Elevated cholesterol acute Gastroesophageal reflux dise ase with esophagitis without hemorrhage acute Obesity acute Primary hypertension acute Spondylosis without myelopat hy or radiculopathy, lumbar region acute Type 2 diabetes mellitus with hyperglycemia acute [facility] Work Phone: Evaluation note* Diagnosis Onset Date Resolution Status Elevated cholesterol acute Gastroesophageal reflux dise ase with esophagitis without hemorrhage acute Primary hypertension acute Spondylosis without myelopat hy or radiculopathy, lumbar region acute Type 2 diabetes mellitus with hyperglycemia acute [facility] Work Phone: Hiszfoe general Narrative - Reported* Type Description Date [...] CYSTOSCOPY 2016 Hospitalization History SEE SURGICAL HX [facility] Other Hisafdi general Narrative - [facility] Other Hisfnkk general Narrative - Reported* Type Description Date [...] CYSTOSCOPY 2016 Hospitalization History SEE SURGICAL HX [facility] Other Hospital course Narrative No data available for this section [facility] progress note No data available for this section [facility] Summary Purpose Family History Relationship Condition [...] well ness visit, initial (Z00.00) Referral Organization [facility] Peter de la cruz Referring Provider First Name Bogdan Referring Provider Last Name Peter Referring Provider Specialty Internal Me dicine Referred Organization [facility] Referred Provider Swapnil French Referred Address [address], [place],[address] Referred Provider Specialty Pain Medicin e Referral [...] Notes Include XR lumbar sp ine f: [id number] Chief Complaint and Reason for Visit Chief [...] section and content) DATE CREATED AUTHOR 07/30/2021 [facility] DATE CREATED AUTHOR AUTHOR'S ORGANIZ ATION 08/22/2022 [facility] DATE CREATED AUTHOR AUTHOR'S ORGANIZ ATION 08/23/2023 [facility] DATE CREATED AUTHOR AUTHOR'S ORGANIZ ATION 11/14/2023 [facility] REASON FOR VISIT (unrecogniz ed section and content) BS readingsElevated blood cifuentes [id number] PositiveWellnesslabsLab ResultsBP readingsrefillelevated BPMedication4 MONTH FOLLOW UP [...] PRIMARY CLINICAL RECORDS. [facility] [employer] [facility]. provides no warranty or guarantee of the accuracy or completeness of information in this document.
--- NOTE | 2024-04-09 11:57 | PM.CN ---
Consult Note: HPI Data of Consult Patient: known to practice within the last 3 years Consult date: 05/20/23 Requesting Physician: Radha Cope NP Primary Care Provider: Bogdan Green DO Family Provider: f/u Consult Narrative Reason for consult: f/u Narrative: 68yom who presents for evaluation. worsening axial low back pain that has persisted for >1 year. underwent physical therapy in the summer and continues in a course of provider directed home exercises, which have not provided significant relief for >6 weeks >3x/week. imaging reviewed, significant for facet arthropathy in lower lumbar spine. uses otc pain meds as needed. Patient recently underwent bilateral L4-5 L5-S1 thermal RFA with moderate improvement ongoing, patient notices improvement in ambulation. Pain today 2/10 in low back increasing to 6/10 with standing and walking. improved with forward flexion and upon sitting. lumbar MRI completed which is consistent with multilevel disc degeneration and stenosis most significant at L4-S1. cc:: CC: Radha Cope NP Review of Systems ROS Status of ROS 10 or more systems reviewed and unremarkable except as noted in history and below Musculoskeletal Reports: back pain and extremity pain PFSH PFSH Medical History History of stress test ?Z92.89 - Personal history of other medical treatment (ICD-10) Acid reflux ?K21.9 - Gastro-esophageal reflux disease without esophagitis (ICD-10) Diabetes ?E11.9 - Type 2 diabetes mellitus without complications (ICD-10) HTN (hypertension) ?I10 - Essential (primary) hypertension (ICD-10) Surgical History History of hernia repair ?Z98.890 - Other specified postprocedural states (ICD-10) ?Z87.19 - Personal history of other diseases of the digestive system (ICD-10) Meds Home Medications and Allergies Home Medications ?Medication ?Instructions ?Recorded ?Confirmed ?Type allopurinol 100 mg tablet 100 mg PO DAILY 06/14/23 08/19/23 History amlodipine 5 mg tablet 5 mg PO DAILY 06/14/23 08/19/23 History atorvastatin 10 mg tablet 10 mg PO DAILY 06/14/23 08/19/23 History benazepril 5 mg tablet 20 mg PO DAILY 06/14/23 08/19/23 History finasteride 5 mg tablet 5 mg PO DAILY 06/14/23 08/19/23 History glimepiride 4 mg tablet 4 mg PO DAILY 06/14/23 08/19/23 History insulin glargine 100 unit/mL (3 25 unit subcut DAILY 06/14/23 08/19/23 History mL) subcutaneous pen (Lantus Solostar U-100 Insulin) latanoprost 0.005 % eye drops 1 drp ophthalmic (eye) DAILY 06/14/23 08/19/23 History metformin 1,000 mg tablet 1,000 mg PO BID 06/14/23 08/19/23 History tamsulosin 0.4 mg capsule 0.4 mg PO Q24H 06/14/23 08/19/23 History cetirizine 10 mg capsule (All Day 10 mg PO DAILY PRN allergy symptoms 06/24/23 08/19/23 History Allergy (cetirizine)) omeprazole 10 mg capsule,delayed 10 mg PO DAILY 06/24/23 08/19/23 History release dulaglutide 0.75 mg/0.5 mL 0.75 mg subcut QWEEK 08/07/23 08/07/23 History subcutaneous pen injector (Trulicity) Allergies Allergy/AdvReac Type Severity Reaction Status Date / Time No Known Drug Allergies Allergy Verified 07/29/23 09:29 Exam Constitutional Documenting provider has reviewed patient's vital signs: yes Common normals: no apparent distress, oriented x3, healthy appearing, alert and well nourished General appearance: cooperative [facility] Common normals: normocephalic, hearing grossly normal bilaterally and moist oral mucous membranes Head and scalp: normocephalic Eye Common normals: PERRL Pupil: PERRL Neck & C-Spine Common normals: full ROM General: normal visual inspection Chest Common normals: inspection of chest normal Respiratory Common normals: normal respiratory effort, no retractions and no use of accessory muscles Back & Pelvis Lumbar spine/lower back: lumbar ROM normal, lumbar spinal tenderness and straight leg raise negative bilaterally; no pain with ROM Sacroiliac joints: SI joints normal Other: negative PSIS, 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 and gaenslens mildly positive facet loading increased low back pain with standing and walking, improved with forward flexion Extremity Common normals: normal to inspection and full ROM Neuro Common normals: oriented x3, CN's II-XII intact bilaterally, moves all extremities, no focal motor deficits, no sensory deficits noted and deep tendon reflexes 2+ bilaterally Sensorium/orientation: alert Motor exam: strength 5/5 throughout and no movement abnormalities noted Psych Common normals: mental status grossly normal, thought process normal, cooperative, affect normal, speech normal and activity/motor behavior normal Speech: normal speech Thought process: normal thought process Results Additional Findings Additional findings: If on a controlled substance or opioids, I have checked an [place]AR[place] report on this patient and there are no aberrancies noted in the prescribing history.??If on a controlled substance or opioid a drug screen was completed and reviewed within the last year, and if there has not been a drug screen completed we ordered one today to monitor higher risk, state monitored pain medication use. As part of providing excellent, safe, comprehensive care, the following was completed at our patient's visit: 1. A medication reconciliation and review to ensure accurate knowledge of current/active medications, including asking our patients to inform us about any urgm-vsn-bpldwqy medications or herbal remedies/nutritional supplements/alternative remedies. 2. A review to specifically ensure our patients have had annual screening for screening for depression, screening for tobacco use, and screening for unhealthy alcohol use. For concerning screenings had a discussion with the patient, provided patient education, and recommended follow-up with primary care provider when appropriate. If patient noted with a risk of falling, they received education on strength, gait, and balance training to prevent future risk of falling. Assessment and Plan Assessment and Plan (1) Lumbar stenosis with neurogenic claudication: (2) Lumbar spondylosis: (3) Degenerative disc disease, lumbar: Plan bilateral L4-5 TFESI followed by Bilateral L5-S1 TFESI under fluoroscopy, risks vs benefits reviewed continue HEP as tolerated f/u after injections complete
== END 2024-04-09 11:17 | disposition home or self-care (01) ==
LOC: PM 11:16
PROVIDERS: PCP Internal Medicine; Visit Provider Nurse Practitioner
DX: M48.062 Spinal stenosis, lumbar region with neurogenic claudication (principal); M47.816 Spondylosis without myelopathy or radiculopathy, lumbar region; M51.369 Other intervertebral disc degeneration, lumbar region without mention of lumbar back pain or lower extremity pain
CPT/HCPCS: G0463

== ENCOUNTER 2024-04-20 09:53 | Day surgery (SDC) | payer MEDICARE, BC, SELFPAY ==
--- OUTSIDE RECORDS SUMMARY | 2024-04-20 10:02 | XMS_ITS | CCD ---
Author Organization [facility] Care Team Providers Care Hvac Specialist Name Role Phone BOGDAN GREEN Primary Care Physician [phone] PETER, DR MCFADDEN Primary Care Unavailable FRANCISCA [...] physicia Propensity to adverse reactions 6 Comment:Done Hiptype Other (1 source) No Known Medication Allergies; 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: [No Known Medication Allergies] Propensity to adverse reactions (disorder) [facility] Repository Medications Current Medications Medication Drug Class(es) [...] day(s), # 90 tab(s), Refills(s) 3, Pharmacy: [facility]/pharmacy #[id number], 195, cm, 11/09/22 11:00:00 EDT, Height/Length Dosing, 111, kg, 11/09/22 11:00:00 EDT, Weight Dosing Start Date: 11/09/22 Stop Date: 11/04/23 Status: Ordered Start: 10-06-2021 take 1 tablet by osbaldo th once daily finasteride 5 mg Tab 5 mg = 1 tab(s), Oral, Daily, # 90 tab(s), Refills(s) 3, Pharmacy: [facility]/pharmacy #[id number], 195, cm, 10/06/21 8:16:00 [...] bid for 5 days Apr, Active [place] 5/16 (15 sources) Start: 09-27-2022 Start: 09-27-2022 [place] 5/ 16 Use to inject insulin qd [...] acid 4700 mg / polyethylene glycol 3350 [id number] mg / potassium chloride 1015 mg / [...] 05-09-2015 Chronic Other aftercare (1 source) Other meterman (current) drug therapy; 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: [OTH DRAW FURNACE TENDER CURRENT DRUG THERAPY] Onset: 07-03-2022 Episodic Other aftercare (1 source) terminologist (current) use of oral hypoglycemic drugs; 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: [DRAW FURNACE TENDER USE ORAL HYPOGLYCEMIC DX] Onset: 07-03-2022 Episodic Other aftercare (15 sources) Long-term current use of insulin; 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: [terminologist (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] Episodic Other aftercare (2 sources) [facility] (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 Episodic Other aftercare (2 sources) Long-term current use of drug therapy; 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: [Other m[facility]p (current) drug therapy] Episodic Other and unspecified [...] from glycated hemoglobin (Bld) [Mass/Vol] 169 mg/dL [facility] 02-11-2024 HbA1c (Bld) [Mass fraction] 7.5 % High 4.5-6.2 [facility] Comment on above: ADA RECOMMENDED LIMI T 4.0 - 6.0ADA THERAPEUTIC TARGET < 7.0ACTION SUGGESTED> 7.0 Glucose mean value [Mass/vol ume] in Blood Estimated from glycated hemoglobinon 10-12-2023 Average glucose Estimated from glycated hemoglobin (Bld) [Mass/Vol] 180 mg/dL [facility] 10-12-2023 HbA1c (Bld) [Mass fraction] 7.9 % 4.5-6.2 [facility] Comment on above: ADA RECOMMENDED LIMI T 4.0 - 6.0ADA THERAPEUTIC TARGET < 7.0ACTION SUGGESTED> 7.0 GLYCOHEMOGLOBIN A1Con 2022 ADA RECOMMENDATION SEE BELOW Normal [facility] Comment on above: Result Comment: ADA RECOMMENDED LIMIT 4.0 - 6.0 ADA THERAPEUTIC TARGET < 7.0 ACTION SUGGESTED > 7.0 Performed By: #### B MP, LIPID, ALT, URIC #### [facility] [address] [place] [address] Dr. Jorge L Carey Glucose [Mass/Vol] 148 mg/dL Normal [facility] Comment on above: Performed By: #### B MP, LIPID, ALT, URIC #### [facility] [address] [address] [address] Jorge L Carey HbA1c (Bld) [Mass fraction] 6.8 % Critically high 4.5-6.2 [facility] Comment on above: Performed By: #### B MP, LIPID, ALT, URIC #### [facility] [address] [address] [address] Jorge L Carey CARDIAC DANAY ADMITon 023 CK [Catalytic activity/Vol] 59 U/L Normal 39-308 [facility] Comment on above: Performed By: #### C MP, CMADM #### [facility] [address] [address] [address] Jorge L Carey CK.MB [Mass/Vol] 0.99 ng/mL Normal <=3.60 [facility] Comment on above: Performed By: #### C MP, CMADM #### [facility] [address] [place] [address] Dr. Jorge L Carey HSTROP 10.0 pg/mL Normal 4.0-76.1 [facility] Comment on above: Result Comment: CUT- OFF POINTS HAVE BEEN ESTABLISHED BASED ON THE FOURTH UNIVERSAL DEFINITIONS OF MYOCARDIAL INFARCTION. THE UPPER REFERENCE LIMIT (URL) OF TROPONIN, DEFINED THE 99TH PERCENTILE OF cTnI DISTRIBUTION IN A REFERENCE POPULATION, HAS BEEN CONFIRMED THE DECISION THRESHOLD FOR NM DIAGNOSIS. Performed By: #### C MP, CMADM #### [facility] [address] [place] [address] Dr. Jorge L Carey GARLAND 52 ng/mL Normal 16-96 [facility] Comment on above: Performed By: #### C MP, CMADM #### [facility] [address] [place] [address] Dr. Jorge L Carey CBC AUTO DIFFon 07-01-2022 BASO # 0.0 103/ul Normal 0.0-0.1 [facility] Comment on above: Performed By: #### B MP, LIPID, ALT, URIC #### [facility] [address] [place] [address] Dr. Jorge L Carey Basophils/100 WBC (Bld) 0.3 % Normal 0.2-2.0 [facility] Comment on above: Performed By: #### B MP, LIPID, ALT, URIC #### [facility] [address] [place] [address] Dr. Jorge L Carey EO # 0.1 103/ul Normal 0.0-0.7 [facility] Comment on above: Performed By: #### B MP, LIPID, ALT, URIC #### [facility] [address] [place] [address] Dr. Jorge L Carey Eosinophils/100 WBC (Bld) 0.9 % Normal 0.9-7.0 [facility] Comment on above: Performed By: #### B MP, LIPID, ALT, URIC #### [facility] [address] [place] [address] Dr. Jorge L Carey Erythrocyte distribution width (RBC) [Ratio] 11.7 % Normal 11.0-15.0 [facility] Comment on above: Performed By: #### B MP, LIPID, ALT, URIC #### [facility] [address] [place] [address] Dr. Jorge L Carey Hematocrit (Bld) [Volume fraction] 41.1 % Critically low 42.0-54.0 [facility] Comment on above: Performed By: #### B MP, LIPID, ALT, URIC #### [facility] [address] [address] [address] Jorge L Carey Hemoglobin (Bld) [Mass/Vol] 14.5 g/dL Normal 14.0-18.0 [facility] Comment on above: Performed By: #### B MP, LIPID, ALT, URIC #### [facility] [address] [place] [address] Dr. Jorge L Carey IG # 0.02 10e3/ul Normal 0.00-0.03 [facility] Comment on above: Performed By: #### B MP, LIPID, ALT, URIC #### [facility] [address] [place] [address] Dr. Jorge L Carey IG % 0.3 % Normal 0.0-0.5 [facility] Comment on above: Performed By: #### B MP, LIPID, ALT, URIC #### [facility] [address] [place] [address] Dr. Jorge L Carey LYMPH # 1.1 103/ul Critically low 1.2-3.8 [facility] Comment on above: Performed By: #### B MP, LIPID, ALT, URIC #### [facility] [address] [place] [address] Dr. Jorge L Carey Lymphocytes/100 WBC (Bld) 16.6 % Critically low 20.5-60.0 [facility] Comment on above: Performed By: #### B MP, LIPID, ALT, URIC #### [facility] [address] [place] [address] Dr. Jorge L Carey MANUAL DIFF REQ NO Normal [facility] Comment on above: Performed By: #### B MP, LIPID, ALT, URIC #### [facility] [address] [place] [address] Dr. Jorge L Carey MCH (RBC) [Entitic mass] 30.1 pg Normal 25.9-34.0 [facility] Comment on above: Performed By: #### B MP, LIPID, ALT, URIC #### [facility] [address] [place] [address] Dr. Jorge L Carey MCHC (RBC) [Mass/Vol] 35.3 g/dL Critically high 29.9-35.2 [facility] Comment on above: Performed By: #### B MP, LIPID, ALT, URIC #### [facility] [address] [place] [address] Dr. Jorge L Carey MCV (RBC) [Entitic vol] 85.4 fL Normal 80.0-94.0 [facility] Comment on above: Performed By: #### B MP, LIPID, ALT, URIC #### [facility] [address] [place] [address] Dr. Jorge L Carey MONO # 0.4 103/ul Normal 0.3-0.8 [facility] Comment on above: Performed By: #### B MP, LIPID, ALT, URIC #### [facility] [address] [place] [address] Dr. Jorge L Carey Monocytes/100 WBC (Bld) 5.1 % Normal 1.7-12.0 [facility] Comment on above: Performed By: #### B MP, LIPID, ALT, URIC #### [facility] [address] [place] [address] Dr. Jorge L Carey NEUT # 5.3 103/ul Normal 1.4-6.5 [facility] Comment on above: Performed By: #### B MP, LIPID, ALT, URIC #### [facility] [address] [place] [address] Dr. Jorge L Carey Neutrophils/100 WBC (Bld) 76.8 % Critically high 43.0-75.0 [facility] Comment on above: Performed By: #### B MP, LIPID, ALT, URIC #### [facility] [address] [place] [address] Dr. Jorge L Carey Platelet mean volume (Bld) [Entitic vol] 12.1 fL Normal 9.5-13.5 [facility] Comment on above: Performed By: #### B MP, LIPID, ALT, URIC #### [facility] [address] [place] [address] Dr. Jorge L Carey PLT 147 103/ul Critically low 150-450 [facility] Comment on above: Performed By: #### B MP, LIPID, ALT, URIC #### [facility] [address] [place], [place] [address] Dr. Jorge L Carey RBC 4.81 106/ul Normal 4.70-6.10 [facility] Comment on above: Performed By: #### B MP, LIPID, ALT, URIC #### [facility] [address] [place], [place] [address] Dr. Jorge L Carey WBC 6.9 103/ul Normal 4.0-11.0 [facility] Comment on above: Performed By: #### B MP, LIPID, ALT, URIC #### [facility] [address] [place], [place] [address] [address] HEAD WO [...] MALENA LÓPEZ Date: 2022-07-01 20:24 Normal [facility] Covid-19 PCR (CVDTB)on 06-17 SARS-CoV-2 (COVID-19) RNA EDVIN+probe Ql (Unsp spec) Not detected Normal NOT DETECTED [facility] Comment on above: Result Comment: When diagnostic [...] for this test is supported by the [place] of [employer] and Human Service's declaration that [...] used). Performed By: #### C VDTBH #### [facility] [address] [place] [address] Dr. Jorge L Carey D-DIMERon 07-01-2022 D-DIMER 0.21 mg/L FEU Normal <=0.59 [facility] Comment on above: Performed By: #### B MP, LIPID, ALT, URIC #### [facility] [address] [place] [address] Dr. Jorge L Carey D-DIMER COMMENTS SEE BELOW Normal [facility] [...] #### B MP, LIPID, ALT, URIC #### [facility] [address] [place] [address] Dr. Jorge L Carey ER URINE PROFILEon 3 Bilirubin Ql (U) Negative Normal NEGATIVE [facility] Comment on above: Performed By: #### B MP, LIPID, ALT, URIC #### [facility] [address] [place] [address] Dr. Jorge L Carey Clarity (U) CLEAR Normal CLEAR [facility] Comment on above: Performed By: #### B MP, LIPID, ALT, URIC #### [facility] [address] [address] [address] Jorge L Carey Color (U) LT. YELLOW Normal YELLOW [facility] Comment on above: Performed By: #### B MP, LIPID, ALT, URIC #### [facility] [address] [address] [address] Jorge L Carey ERUAHD A micrscopic examination will be performed if indicated. Normal [facility] Comment on above: Performed By: #### B MP, LIPID, ALT, URIC #### [facility] [address] [address] [address] Jorge L Carey Glucose Ql (U) Negative Normal NEGATIVE [facility] Comment on above: Performed By: #### B MP, LIPID, ALT, URIC #### [facility] [address] [address] [address] Jorge L Carey Hemoglobin Ql (U) Negative Normal NEGATIVE [facility] Comment on above: Performed By: #### B MP, LIPID, ALT, URIC #### [facility] [address] [address] [address] Jorge L Carey Ketones Ql (U) Negative Normal NEGATIVE [facility] Comment on above: Performed By: #### B MP, LIPID, ALT, URIC #### [facility] [address] [address] [address] Jorge L Carey LEUKOCYTES Negative Normal NEGATIVE [facility] Comment on above: Performed By: #### B MP, LIPID, ALT, URIC #### [facility] [address] [address] [address] Jorge L Carey Nitrite Ql (U) Negative Normal NEGATIVE [facility] Comment on above: Performed By: #### B MP, LIPID, ALT, URIC #### [facility] [address] [address] [address] Jorge L Carey pH (U) 6.0 [pH] Normal 5-9 [facility] Comment on above: Performed By: #### B MP, LIPID, ALT, URIC #### [facility] [address] [place] [address] Dr. Jorge L Carey SPEC GRAVITY 1.020 Normal 1.005-<=1.025 [facility] Comment on above: Performed By: #### B MP, LIPID, ALT, URIC #### [facility] [address] [place] [address] Dr. Jorge L Carey UA PROTEIN Negative Normal NEGATIVE/ TRACE [facility] Comment on above: Performed By: #### B MP, LIPID, ALT, URIC #### [facility] [address] [place] [address] Dr. Jorge L Carey UR MICRO IND NOT INDICATED Normal [facility] Comment on above: Performed By: #### B MP, LIPID, ALT, URIC #### [facility] [address] [place] [address] Dr. Jorge L Carey Urobilinogen Qn (U) 1.0 {Ila'U}/dL Normal 0.2 - 1. 0 [facility] Comment on above: Performed By: #### B MP, LIPID, ALT, URIC #### [facility] [address] [place] [address] Dr. Jorge L Carey INFLUENZA A AND B AGon 07-01 [facility] SEE BELOW Normal [facility] Comment on above: Result Comment: Nega tive for Flu A protein angiten. Infection due to Flu A cannot be ruled out. Flu A angiten in the sample may be below the detection limit of the test. Performed By: #### I NFLUAB #### [facility] [address] [place] [address] Dr. Jorge L Carey INFLUBNEGH SEE BELOW Normal [facility] Comment on above: Result Comment: Nega tive for Flu B protein antigen. Infection due to Flu B cannot be ruled out. Flu B antigen in the sample may be below the detection limit of the test. Performed By: #### I NFLUAB #### [facility] [address] [place] [address] Dr. Jorge L Carey INFLUENZA A AG Negative Normal NEGATIVE SEE COMMENT [facility] Comment on above: Performed By: #### I NFLUAB #### [facility] [address] [address] [address] Jorge L Carey INFLUENZA B AG Negative Normal NEGATIVE SEE COMMENT [facility] Comment on above: Performed By: #### I NFLUAB #### [facility] [address] [address] [address] Jorge L Carey POINT OF CARE GLUCOSEon 06-17 Glucose [Mass/Vol] 130 mg/dL Critically high 74-106 [facility] Comment on above: Performed By: #### B MP, LIPID, ALT, URIC #### [facility] [address] [address] [address] Jorge L Carey PROF 14(COMP METB)on 023 Albumin [Mass/Vol] 3.7 g/dL Normal 3.4-5.0 [facility] Comment on above: Performed By: #### C IGGY, CMADM #### [facility] [address] [place] [address] Dr. Jorge L Carey Albumin/Globulin [Mass ratio] 1.2 {ratio} Normal [facility] Comment on above: Performed By: #### C IGGY, CMADM #### [facility] [address] [place] [address] Dr. Jorge L Carey ALP [Catalytic activity/Vol] 49 U/L Normal 46-116 [facility] Comment on above: Performed By: #### C IGGY, CMADM #### [facility] [address] [address] [address] Jorge L Carey ALT [Catalytic activity/Vol] 30 U/L Normal 16-63 [facility] Comment on above: Performed By: #### C MP, CMADM #### [facility] [address] [place] [address] Dr. Jorge L Carey Anion gap [Moles/Vol] 12.7 mmol/L Normal [facility] Comment on above: Performed By: #### C MP, CMADM #### [facility] [address] [place] [address] Dr. Jorge L Carey AST [Catalytic activity/Vol] 21 U/L Normal 15-37 [facility] Comment on above: Performed By: #### C IGGY, CMADM #### [facility] [address] [place] [address] Dr. Jorge L Carey Bilirubin [Mass/Vol] 0.5 mg/dL Normal 0.2-1.0 [facility] Comment on above: Performed By: #### C IGGY, CMADM #### [facility] [address] [place] [address] Dr. Jorge L Carey Calcium [Mass/Vol] 8.9 mg/dL Normal 8.5-10.1 [facility] Comment on above: Performed By: #### C IGGY, CMADM #### [facility] [address] [place] [address] Dr. Jorge L Carey Chloride [Moles/Vol] 100 mmol/L Normal 98-107 [facility] Comment on above: Performed By: #### C IGGY, CMADM #### [facility] [address] [place] [address] Dr. Jorge L Carey CO2 [Moles/Vol] 29.0 mmol/L Normal 21.0-32.0 [facility] Comment on above: Performed By: #### C IGGY, CMADM #### [facility] [address] [place] [address] Dr. Jorge L Carey Creatinine [Mass/Vol] 1.04 mg/dL Normal 0.70-1.30 [facility] Comment on above: Performed By: #### C IGGY, CMADM #### [facility] [address] [place] [address] Dr. Jorge L Carey EGFR-AF BOTSWANAN >60 Normal >=60 [facility] Comment on above: Performed By: #### C IGGY, CMADM #### [facility] [address] [place] [address] Dr. Jorge L Carey EGFR-NON AF BOTSWANAN >60 Normal >=60 [facility] Comment on above: Performed By: #### C IGGY, CMADM #### [facility] [address] [place] [address] Dr. Jorge L Carey Globulin (S) [Mass/Vol] 3.1 g/dL Normal [facility] Comment on above: Performed By: #### C IGGY, RAMYDM #### [facility] [address] [place] [address] Dr. Jorge L Carey Glucose [Mass/Vol] 140 mg/dL Critically high 74-106 [facility] Comment on above: Performed By: #### C IGGY, CMADM #### [facility] [address] [place] [address] Dr. Jorge L Carey Potassium [Moles/Vol] 3.7 mmol/L Normal 3.5-5.1 [facility] Comment on above: Performed By: #### C IGGY, RAMYDM #### [facility] [address] [place] [address] Dr. Jorge L Carey Protein [Mass/Vol] 6.8 g/dL Normal 6.4-8.2 [facility] Comment on above: Performed By: #### C RAMY PARKINSONDM #### [facility] [address] [place] [address] Dr. Jorge L Carey Sodium [Moles/Vol] 138 mmol/L Normal 136-145 [facility] Comment on above: Performed By: #### C IGGY, RAMYDM #### [facility] [address] [place] [address] Dr. Jorge L Carey Urea nitrogen [Mass/Vol] 13.0 mg/dL Normal 7.0-18.0 [facility] Comment on above: Performed By: #### C IGGY, RAMYDM #### [facility] [address] [place] [address] Dr. Jorge L Carey Urea nitrogen/Creatinine [Mass ratio] 12.5 mg/mg Normal [facility] Comment on above: Performed By: #### C IGGY, CMADM #### [facility] [address] [place] [address] Dr. Jorge L Carey TROPONIN, HIGH SENSITIVITYon 07-01-2022 HSTROP 10.9 pg/mL Normal 4.0-76.1 [facility] Comment on above: Result Comment: CUT- OFF POINTS HAVE BEEN ESTABLISHED BASED ON THE FOURTH UNIVERSAL DEFINITIONS OF MYOCARDIAL INFARCTION. THE UPPER REFERENCE LIMIT (URL) OF TROPONIN, DEFINED THE 99TH PERCENTILE OF cTnI DISTRIBUTION IN A REFERENCE POPULATION, HAS BEEN CONFIRMED THE DECISION THRESHOLD FOR NM DIAGNOSIS. Performed By: #### B MP, LIPID, ALT, URIC #### [facility] [address] [place] [address] Dr. Jorge L Carey XR CHEST 1 [...] FILIPPO MASTERS Date: 2022-07-01 19:57 Normal [facility] CBC AUTO DIFFon 04-18-2022 BASO # 0.0 103/ul Normal 0.0-0.1 [facility] Comment on above: Performed By: #### C BC #### [facility] [address] [place] [address] Dr. Jorge L Carey Basophils/100 WBC (Bld) 0.7 % Normal 0.2-2.0 [facility] Comment on above: Performed By: #### C BC #### [facility] [address] [place] [address] Dr. Jorge L Carey EO # 0.2 103/ul Normal 0.0-0.7 [facility] Comment on above: Performed By: #### C BC #### [facility] [address] [place] [address] Dr. Jorge L Carey Eosinophils/100 WBC (Bld) 2.6 % Normal 0.9-7.0 [facility] Comment on above: Performed By: #### C BC #### [facility] [address] [place] [address] Dr. Jorge L Carey Erythrocyte distribution width (RBC) [Ratio] 11.5 % Normal 11.0-15.0 [facility] Comment on above: Performed By: #### C BC #### [facility] [address] [place] [address] Dr. Jorge L Carey Hematocrit (Bld) [Volume fraction] 44.7 % Normal 42.0-54.0 [facility] Comment on above: Performed By: #### C BC #### [facility] [address] [place] [address] Dr. Jorge L Carey Hemoglobin (Bld) [Mass/Vol] 15.5 g/dL Normal 14.0-18.0 [facility] Comment on above: Performed By: #### C BC #### [facility] [address] [place] [address] Dr. Jorge L Carey IG # 0.01 10e3/ul Normal 0.00-0.03 [facility] Comment on above: Performed By: #### C BC #### [facility] [address] [place] [address] Dr. Jorge L Carey IG % 0.2 % Normal 0.0-0.5 [facility] Comment on above: Performed By: #### C BC #### [facility] [address] [place] [address] Dr. Jorge L Carey LYMPH # 1.3 103/ul Normal 1.2-3.8 [facility] Comment on above: Performed By: #### C BC #### [facility] [address] [place] [address] Dr. Jorge L Carey Lymphocytes/100 WBC (Bld) 21.3 % Normal 20.5-60.0 [facility] Comment on above: Performed By: #### C BC #### [facility] [address] [place] [address] Dr. Jorge L Carey MANUAL DIFF REQ NO Normal [facility] Comment on above: Performed By: #### C BC #### [facility] [address] [place] [address] Dr. Jorge L Carey MCH (RBC) [Entitic mass] 30.1 pg Normal 25.9-34.0 [facility] Comment on above: Performed By: #### C BC #### [facility] [address] [place] [address] Dr. Jorge L Carey MCHC (RBC) [Mass/Vol] 34.7 g/dL Normal 29.9-35.2 [facility] Comment on above: Performed By: #### C BC #### [facility] [address] [address] [address] Jorge L Carey MCV (RBC) [Entitic vol] 86.8 fL Normal 80.0-94.0 [facility] Comment on above: Performed By: #### C BC #### [facility] [address] [address] [address] Jorge L Carey MONO # 0.4 103/ul Normal 0.3-0.8 [facility] Comment on above: Performed By: #### C BC #### [facility] [address] [place] [address] Dr. Jorge L Carey Monocytes/100 WBC (Bld) 7.2 % Normal 1.7-12.0 [facility] [facility] Comment on above: Performed By: #### C BC #### [facility] [address] [place] [address] Dr. Jorge L Carey NEUT # 4.1 103/ul Normal 1.4-6.5 [facility] Comment on above: Performed By: #### C BC #### [facility] [address] [place] [address] Dr. Jorge L Carey Neutrophils/100 WBC (Bld) 68.0 % Normal 43.0-75.0 [facility] Comment on above: Performed By: #### C BC #### [facility] [address] [place] [address] Dr. Jorge L Carey Platelet mean volume (Bld) [Entitic vol] 12.0 fL Normal 9.5-13.5 [facility] Comment on above: Performed By: #### C BC #### [facility] [address] [place] [address] Dr. Jorge L Carey PLT 163 103/ul Normal 150-450 [facility] Comment on above: Performed By: #### C BC #### [facility] [address] [place] [address] Dr. Jorge L Carey RBC 5.15 106/ul Normal 4.70-6.10 [facility] Comment on above: Performed By: #### C BC #### [facility] [address] [address] [address] Jorge L Carey WBC 6.1 103/ul Normal 4.0-11.0 [facility] Comment on above: Performed By: #### C BC #### [facility] [address] [address] [address] Jorge L Carey GLYCOHEMOGLOBIN A1Con 2021 ADA RECOMMENDATION SEE BELOW Normal [facility] Comment on above: Result Comment: ADA RECOMMENDED LIMIT 4.0 - 6.0 ADA THERAPEUTIC TARGET < 7.0 ACTION SUGGESTED > 7.0 Performed By: #### B MP, LIPID, ALT, URIC #### [facility] [address] [address] [address] Jorge L Carey Glucose [Mass/Vol] 146 mg/dL Normal [facility] Comment on above: Performed By: #### B MP, LIPID, ALT, URIC #### [facility] [address] [address] [address] Jorge L Carey HbA1c (Bld) [Mass fraction] 6.7 % Critically high 4.5-6.2 [facility] Comment on above: Performed By: #### B MP, LIPID, ALT, URIC #### [facility] [address] [address] [address] Jorge L Carey LIPID PROFILEon 04-18-2022 CHOL-HDL RATIO NORM SEE BELOW Normal [facility] Comment on above: Result Comment: 3.3 - 4.4 LOW RISK 4.4 - 7.1 AVERAGE RISK 7.1 - 11.0 MODERATE RISK >11.0 HIGH RISK Performed By: #### B MP, LIPID, ALT, URIC #### [facility] [address] [address] [address] Jorge L Carey Cholesterol [Mass/Vol] 117 mg/dL Normal <=200 [facility] Comment on above: Performed By: #### B MP, LIPID, ALT, URIC #### [facility] [address] [address] [address] Jorge L Carey Cholesterol in HDL [Mass/Vol] 48 mg/dL Normal 40-60 [facility] Comment on above: Performed By: #### B MP, LIPID, ALT, URIC #### [facility] [address] [address] [address] Jorge L Carey Cholesterol in LDL [Mass/Vol] 50.6 mg/dL Normal [facility] Comment on above: Performed By: #### B MP, LIPID, ALT, URIC #### [facility] [address] [address] [address] Jorge L Carey Cholesterol.total/Cho lesterol in HDL [Mass ratio] 2.4 {ratio} Normal [facility] Comment on above: Performed By: #### B MP, LIPID, ALT, URIC #### [facility] [address] [address] [address] Jorge L Carey HDL NORMAL > or = 60 mg/dl - LOW CARDIOVASCULAR RISK <40 mg/dl - HIGH CARDIOVASCULAR RISK Normal [facility] Comment on above: Performed By: #### B MP, LIPID, ALT, URIC #### [facility] [address] [address] [address] Jorge L Carey LDL CALC NORMAL SEE BELOW Normal [facility] Comment on above: Result Comment: <100 mg/dl OPTIMAL 100 - 129 mg/dl NEAR OR ABOVE OPTIMAL 130 - 159 mg/dl BORDERLINE HIGH 160 - 189 mg/dl HIGH >190 mg/dl VERY HIGH Performed By: #### B MP, LIPID, ALT, URIC #### [facility] [address] [address] [address] Jorge L Carey Triglyceride [Mass/Vol] 92 mg/dL Normal <=150 [facility] Comment on above: Performed By: #### B MP, LIPID, ALT, URIC #### [facility] [address] [address] [address] Jorge L Carey VLDL CALC 18.4 mg/dL Normal [facility] Comment on above: Performed By: #### B MP, LIPID, ALT, URIC #### [facility] [address] [address] [address] Jorge L Carey MICROALBUMIN, RAND URon 11-0 mALB <1.3 Normal <=30.0 [facility] Comment on above: Performed By: #### M ALBR #### [facility] [address] [address] [address] Jorge L Carey PROF CHEM 8 (BAS METB)on Anion gap [Moles/Vol] 9.5 mmol/L Normal [facility] Comment on above: Performed By: #### B MP, LIPID, ALT, URIC #### [facility] [address] [place] [address] Dr. Jorge L Carey Calcium [Mass/Vol] 8.6 mg/dL Normal 8.5-10.1 [facility] Comment on above: Performed By: #### B MP, LIPID, ALT, URIC #### [facility] [address] [place] [address] Dr. Jorge L Carey Chloride [Moles/Vol] 102 mmol/L Normal 98-107 [facility] Comment on above: Performed By: #### B MP, LIPID, ALT, URIC #### [facility] [address] [place] [address] Dr. Jorge L Carey CO2 [Moles/Vol] 30.8 mmol/L Normal 21.0-32.0 [facility] Comment on above: Performed By: #### B MP, LIPID, ALT, URIC #### [facility] [address] [place] [address] Dr. Jorge L Carey Creatinine [Mass/Vol] 0.95 mg/dL Normal 0.70-1.30 [facility] Comment on above: Performed By: #### B MP, LIPID, ALT, URIC #### [facility] [address] [place] [address] Dr. Jorge L Carey EGFR-AF BOTSWANAN >60 Normal >=60 [facility] Comment on above: Performed By: #### B MP, LIPID, ALT, URIC #### [facility] [address] [place] [address] Dr. Jorge L Carey EGFR-NON AF BOTSWANAN >60 Normal >=60 [facility] Comment on above: Performed By: #### B MP, LIPID, ALT, URIC #### [facility] [address] [address] [address] Jorge L Carey Glucose [Mass/Vol] 142 mg/dL Critically high 74-106 [facility] Comment on above: Performed By: #### B MP, LIPID, ALT, URIC #### [facility] [address] [place] [address] Dr. Jorge L Carey Potassium [Moles/Vol] 4.3 mmol/L Normal 3.5-5.1 [facility] Comment on above: Performed By: #### B MP, LIPID, ALT, URIC #### [facility] [address] [place] [address] Dr. Jorge L Carey Sodium [Moles/Vol] 138 mmol/L Normal 136-145 [facility] Comment on above: Performed By: #### B MP, LIPID, ALT, URIC #### [facility] [address] [place] [address] Dr. Jorge L Carey Urea nitrogen [Mass/Vol] 14.0 mg/dL Normal 7.0-18.0 [facility] Comment on above: Performed By: #### B MP, LIPID, ALT, URIC #### [facility] [address] [place] [address] Dr. Jorge L Carey Urea nitrogen/Creatinine [Mass ratio] 14.7 mg/mg Normal [facility] Comment on above: Performed By: #### B MP, LIPID, ALT, URIC #### [facility] [address] [place] [address] Dr. Jorge L Carey SGPTon 04-18-2022 ALT [Catalytic activity/Vol] 27 U/L Normal 16-63 [facility] Comment on above: Performed By: #### B MP, LIPID, ALT, URIC #### [facility] [address] [place] [address] Dr. Jorge L Carey URIC ACID SERUMon 04-18-2022 Urate [Mass/Vol] 5.5 mg/dL Normal 3.5-7.2 [facility] Comment on above: Performed By: #### B MP, LIPID, ALT, URIC #### [facility] [address] [place] [address] Dr. Jorge L Carey GLYCOHEMOGLOBIN A1Con 08-06- 2022 ADA RECOMMENDATION SEE BELOW Normal [facility] Comment on above: Result Comment: ADA RECOMMENDED LIMIT 4.0 - 6.0 ADA THERAPEUTIC TARGET < 7.0 ACTION SUGGESTED > 7.0 Performed By: #### B MP, LIPID, ALT, URIC #### [facility] [address] [address] [address] Jorge L Carey Glucose [Mass/Vol] 160 mg/dL Normal [facility] Comment on above: Performed By: #### B MP, LIPID, ALT, URIC #### [facility] [address] [address] [address] Jorge L Carey HbA1c (Bld) [Mass fraction] 7.2 % Critically high 4.5-6.2 [facility] Comment on above: Performed By: #### B MP, LIPID, ALT, URIC #### [facility] [address] [place] [address] Dr. Jorge L Carey GLYCOHEMOGLOBIN A1Con 2021 ADA RECOMMENDATION ADA THERAPEUTIC TARGET 6.0 - 7.0 ACTION SUGGESTED > 7.0 Normal [facility] Comment on above: Performed By: #### B MP, LIPID, ALT, URIC #### [facility] [address] [address] [address] Jorge L Carey Glucose [Mass/Vol] 177 mg/dL Normal [facility] Comment on above: Performed By: #### B MP, LIPID, ALT, URIC #### [facility] [address] [address] [address] Jorge L Carey HbA1c (Bld) [Mass fraction] 7.8 % Critically high <=6.0 [facility] Comment on above: Performed By: #### B MP, LIPID, ALT, URIC #### [facility] [address] [place] [address] Dr. Jorge L Carey [facility] 09-17-2020 Glucose [Mass/Vol] 151 mg/dL Normal [facility] Comment on above: Result Comment: PERF ORMED BY: [address] [place] [address] PATHOLOGIST INSURANCE ADJUSTER SUSAN SEXTON M.D. Performed By: #### O UTREACH GLYCO #### [facility] [address] [place] [address] [facility] HbA1c (Bld) [Mass fraction] 6.9 % High 4.3-5.6 [facility] Comment on above: Result Comment: Incr eased risk for diabetes: 5.7 - 6.4 diabetes: >6.4 glycemic control for adults with diabetes: <7.0 Performed By: #### O UTREACH GLYCO #### [facility] [address] [place] [address] [facility] Vital Signs Date Time Vital Sign Value Performing Clinician Facility 02-18-2024 09:37-0400 Body height 190.5 cm [facility] 02-18-2024 09:37-0400 Body mass index (BMI) [Ratio] 32.1 kg/m2 [facility] 02-18-2024 09:37-0400 Body weight 116.74 kg [facility] 02-18-2024 09:37-0400 Diastolic blood pressure 81 mm[Hg] [facility] 02-18-2024 09:37-0400 Heart rate 76 /min [facility] 02-18-2024 09:37-0400 Respiratory rate 12 /min [facility] 02-18-2024 09:37-0400 Systolic blood pressure 136 mm[Hg] [facility] 10-18-2023 09:06-0400 Body height 190.5 cm [facility] 10-18-2023 09:06-0400 Body mass index (BMI) [Ratio] 31.8 kg/m2 [facility] 10-18-2023 09:06-0400 Body weight 115.32 kg [facility] 10-18-2023 09:06-0400 Diastolic blood pressure 77 mm[Hg] [facility] 10-18-2023 09:06-0400 Heart rate 80 /min [facility] 10-18-2023 09:06-0400 Respiratory rate 12 /min [facility] 10-18-2023 09:06-0400 Systolic blood pressure 116 mm[Hg] [facility] 07-08-2023 09:00-0500 Body height 190.5 cm Bogdan Ball Other [facility] Other 07-08-2023 09:00-0500 Body mass index (BMI) [Ratio] 32.62 kg/m2 Bogdan Ball Other [facility] Other 07-08-2023 09:00-0500 Body weight 118.39 kg Bogdan Ball Other [facility] Other 07-08-2023 09:00-0500 Diastolic blood pressure 81 mm[Hg] Bogdan Ball Other [facility] Other 07-08-2023 09:00-0500 Respiratory rate 12 /min Bogdan Ball Other [facility] Other 07-08-2023 09:00-0500 Systolic blood pressure 117 mm[Hg] Bogdan Ball Other [facility] Other 05-01-2023 08:30-0500 Body height 190.5 cm Bogdan Ball Other [facility] Other 05-01-2023 08:30-0500 Body mass index (BMI) [Ratio] 32.19 kg/m2 Bogdan Ball Other [facility] Other 05-01-2023 08:30-0500 Body weight 116.85 kg Bogdan Ball Other [facility] Other 05-01-2023 08:30-0500 Diastolic blood pressure 81 mm[Hg] Bogdan Ball Other [facility] Other 05-01-2023 08:30-0500 Respiratory rate 12 /min Bogdan Ball Other [facility] Other 05-01-2023 08:30-0500 Systolic blood pressure 135 mm[Hg] Bogdan Ball Other [facility] Other 12-26-2022 08:30-0400 Body height 190.5 cm Bogdan Ball Other [facility] Other 12-26-2022 08:30-0400 Body mass index (BMI) [Ratio] 31.54 kg/m2 Bogdan Ball Other [facility] Other 12-26-2022 08:30-0400 Body weight 114.49 kg Bogdan Ball Other [facility] Other 12-26-2022 08:30-0400 Diastolic blood pressure 85 mm[Hg] Bogdan Ball Other [facility] Other 12-26-2022 08:30-0400 Respiratory rate 12 /min Bogdan Ball Other [facility] Other 12-26-2022 08:30-0400 Systolic blood pressure 139 mm[Hg] Bogdan Ball Other [facility] Other 11-09-2022 10:58-0400 Blood Pressure Location Hola GARCIA [facility] 11-09-2022 10:58-0400 Diastolic blood pressure 80 mm[Hg] Hola GARCIA [facility] 11-09-2022 10:58-0400 Heart rate 78 /min Hola GARCIA [facility] 11-09-2022 10:58-0400 Respiratory rate 16 /min Holaconnor GARCIA [facility] 11-09-2022 10:58-0400 Systolic blood pressure 130 mm[Hg] Hola GARCIA [facility] 10-05-2022 12:15-0400 Body height 190.5 cm Bogdan Ball Other [facility] Other 10-05-2022 12:15-0400 Body mass index (BMI) [Ratio] 31.17 kg/m2 Bogdan Ball Other [facility] Other 10-05-2022 12:15-0400 Body weight 113.13 kg Bgodan Ball Other [facility] Other 10-05-2022 12:15-0400 Diastolic blood pressure 95 mm[Hg] Bogdan Ball Other [facility] Other 10-05-2022 12:15-0400 Respiratory rate 12 /min Bogdan Ball Other [facility] Other 10-05-2022 12:15-0400 Systolic blood pressure 168 mm[Hg] Bogdan Ball Other [facility] Other 08-23-2022 08:30-0500 Body height 190.5 cm Bogdan Ball Other [facility] Other 08-23-2022 08:30-0500 Body mass index (BMI) [Ratio] 31.42 kg/m2 Bogdan Ball Other [facility] Other 08-23-2022 08:30-0500 Body weight 114.04 kg Bogdan Ball Other [facility] Other 08-23-2022 08:30-0500 Diastolic blood pressure 86 mm[Hg] Bogdan Ball Other [facility] [employer] Other 08-23-2022 08:30-0500 Respiratory rate 12 /min Bogdan Green Other [facility] [employer] Other 08-23-2022 08:30-0500 Systolic blood pressure 132 mm[Hg] Bogdan Green Other [facility] [employer] Other 10-06-2021 08:14-0400 Blood Pressure Location Hola GARCIA [facility] 10-06-2021 08:14-0400 Diastolic blood pressure 98 mm[Hg] Holaconnor GARCIA [facility] 10-06-2021 08:14-0400 Heart rate 78 /min Holaconnor GARCIA [facility] 10-06-2021 08:14-0400 Systolic blood pressure 145 mm[Hg] Hola GARCIA [facility] Encounters Encounter Date Encounter Type Care Provider Facility Start: 04-03-2024 ambulatory Hola GARCIA Facili ty:[facility] Start: 02-18-2024 End: 02-18-2024 ambulatory [facility] Work Phone: Start: 02-18-2024 End: 02-18-2024 Patient encounter procedure [facility] Work Phone: Start: 02-11-2024 Non-patient / Non-visit [facility] Work Phone: Start: 10-18-2023 End: 10-18-2023 ambulatory [facility] Work Phone: Start: 10-18-2023 End: 10-18-2023 Patient encounter procedure [facility] Work Phone: Start: 10-12-2023 Non-patient / Non-visit [facility] Work Phone: Start: 08-23-2023 Non-patient / Non-visit [facility] Work Phone: Start: 08-19-2023 End: 08-20-2023 ambulatory Dm Cyr MD Facility: [place] Start: 08-16-2023 Non-patient / Non-visit [facility] Work Phone: Start: 07-30-2023 Non-patient / Non-visit [facility] Work Phone: Start: 07-29-2023 End: 07-30-2023 ambulatory Dm Cyr MD [facility] Other Start: 07-29-2023 Telephone encounter Bogdan Green [facility] Start: 07-15-2023 End: 07-16-2023 ambulatory Dm Cyr MD Facility: [facility] Start: 07-08-2023 End: 07-08-2023 ambulatory Bogdan Green Other [facility] Other Start: 07-08-2023 Office outpatient vi sit 25 minutes Bogdan Green [facility] Start: 06-24-2023 End: 06-25-2023 ambulatory Dm Cyr MD Facility:[facility] Start: 05-20-2023 End: 05-21-2023 ambulatory Dm Cyr MD Facility: [facility] Start: 05-10-2023 End: 05-10-2023 ambulatory Bogdan Green Other [facility] Other Start: 05-10-2023 Office outpatient vi sit 15 minutes Bogdan Ball [facility] Start: 05-01-2023 End: 05-01-2023 ambulatory Bogdan Green Other [facility] Other Start: 05-01-2023 Patient encounter procedure Bogdan Green [facility] Start: 04-24-2023 End: 04-24-2023 ambulatory Bogdan Green Other [facility] Other Start: 04-24-2023 Telephone encounter Bogdan Ball [facility] Start: 02-25-2023 End: 02-25-2023 ambulatory Bogdan Peter Other [facility] Other Start: 02-25-2023 Telephone encounter Bogdan Green [facility] Start: 12-27-2022 End: 12-27-2022 ambulatory Bogdan Grene Other [facility] Other Start: 12-27-2022 Telephone encounter Bogdan Ball [facility] Start: 12-26-2022 End: 12-26-2022 ambulatory Bogdan Green Other [facility] Other Start: 12-26-2022 Office outpatient vi sit 25 minutes Bogdan Green [facility] Start: 11-19-2022 End: 11-19-2022 ambulatory Bogdan Green Other [facility] Other Start: 11-19-2022 Telephone encounter Bogdan Ball [facility] Start: 11-09-2022 End: 11-09-2022 Patient encounter procedure Hola GARCIA [facility] Start: 10-22-2022 End: 10-22-2022 ambulatory Bogdan Green Other [facility] Other Start: 10-22-2022 Telephone encounter Bogdan Ball [facility] Start: 10-18-2022 End: 10-18-2022 ambulatory Bogdan Peter Other [facility] Other Start: 10-18-2022 Telephone encounter Bogdan Peter [facility] Start: 10-05-2022 End: 10-05-2022 ambulatory Bogdan Green Other [facility] Other Start: 10-05-2022 Office outpatient vi sit 15 minutes Bogdan Peter [facility] Start: 09-27-2022 End: 09-27-2022 ambulatory Bogdan Green Other [facility] Other Start: 09-27-2022 Telephone encounter Bogdan Green [facility] Start: 09-25-2022 End: 09-25-2022 ambulatory Bogdan Green Other [facility] Other Start: 09-25-2022 Telephone encounter Bogdan Green [facility] Start: 09-21-2022 End: 09-21-2022 ambulatory Bogdan Green Other [facility] Other Start: 09-21-2022 Telephone encounter Bogdan Green [facility] Start: 08-23-2022 End: 08-23-2022 ambulatory Bogdan Green Other [facility] Other Start: 08-23-2022 Office outpatient vi sit 25 minutes Bogdan Green [facility] Start: 08-17-2022 End: 08-18-[address] BOGDAN GREEN Facility:[facility] Start: 08-14-2022 End: 08-14-2022 ambulatory Bogdan Green Other [facility] Other Start: 08-14-2022 Telephone encounter Bogdan Green [facility] Start: 07-01-2022 End: 07-01-[address] BOGDAN GREEN Facility:[facility] Start: 04-25-2022 Adult health examination Bogdan Green Other [facility] Other Start: 04-18-2022 End: 04-19-[address] BOGDAN GREEN Facility:[facility] Start: 01-20-2022 End: 01-21-2022 ambulatory NONE LISTED REQUEST Facility:[facility] Start: 10-06-2021 End: 10-06-2021 Patient encounter procedure Hola GARCIA [facility] Start: 09-16-2021 End: 09-17-[address] HOLA GARCIA . Facility:[facility] Start: 09-15-2021 End: 09-16-2021 ambulatory NONE LISTED REQUEST Facility:[facility] Start: 08-29-[address] BOGDAN GREEN Facili ty:[facility] Procedures Date Procedure Procedure Detail Performing Clinician Start: 09-16-[address] NORRIS GREEN Comment on above: Performed By: #### B MP, LIPID, ALT, URIC #### [facility] [address] [place] [address] Dr. Jorge L Carey Start: 03-29-2017 General [...] Care Activity Detail Author US Heart Transthoracic [facility] XR Chest 2 Views [facility] Immunizations Immunization Date Immunization Notes Care Provider Fa cility 04-29-2023 zoster vaccine recombinant Bogdan Green Other [facility] 04-26-2023 influenza virus vaccine, unspecified formulation [facility] 04-26-2023 influenza, high dose seasonal, preservative-free Bogdan Green Other [facility] Other 02-26-2023 zoster vaccine recombinant Bogdan Green Other [facility] 04-25-2022 pneumococcal 20-alber nt conjugate vaccine Hola GARCIA [facility] 04-16-2022 influenza virus vaccine, split virus (incl. purified surface antigen) Bogdan Green Other [facility] Other 04-16-2022 influenza virus vaccine, unspecified formulation Hola GARCIA [facility] 03-23-2022 SARS-CoV-2 (COVID-19 ) [id number] Hola GARCIA [facility] 05-08-2021 SARS-CoV-2 (COVID-19 ) mRNA BNT-162b2 vax Hola GARCIA [facility] 04-22-2021 influenza virus vaccine, split virus (incl. purified surface antigen) Bogdan Green Other [facility] Other 04-22-2021 influenza virus vaccine, unspecified formulation Hola GARCIA [facility] 03-30-2021 influenza virus vaccine, unspecified formulation Hola GARCIA [facility] 09-16-2020 COVID-19, mRNA, LNP- S, PF, 30 mcg/0.3 mL dose; 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: [[employer] COVID-19 Vaccine] Hola GARCIA [facility] Comment on above: Reason for Medicatio n: Prophylaxis 08-26-2020 COVID-19, mRNA, LNP- S, PF, 30 mcg/0.3 mL dose; 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: [Pf[employer]-BioNTech COVID-19 Vaccine] Hola GARCIA [facility] Comment on above: Reason for Medicatio n: Prophylaxis 04-16-2020 influenza virus vaccine, split virus (incl. purified surface antigen) Bogdan Green Other [facility] Other 04-16-2020 influenza virus vaccine, unspecified formulation Hola GARCIA [facility] pneumococcal Conjuga te, unspecified formulation; 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: [Need for prophylactic vaccination against Streptococcus pneumoniae (pneumococcus)] Bogdan Green Other [facility] Other Payers Date Payer Category Payer Medicare 2022 Unknown 2021 Medicare [id number] 2020 Unknown [id number] 1959 Medicare [id number] 1959 Self-pay [id number] 1959 Unknown [id number] 1959 Unknown [id number] 1956 Unknown [id number] .16.84 [id number] 1956 Unknown [id number] .16.84 [id number] 1956 Unknown [id number] .16.84 [id number] 1956 Unknown [id number] .16.84 [id number] 1956 Unknown [id number] 2.16.84 [id number] 1956 Unknown [id number] 2.16. [id number] 1956 Unknown [id number] 2.16. [id number] 1956 Unknown [id number] 2.16. [id number] 1956 Unknown [id number] 2.16. [id number] 1956 Unknown [id number] 2.16. [id number] 1956 Unknown [id number] 2.16.8 [id number] Blue [employer] Blue Shield [id number] Self-pay Self Pay [id number] Unknown [id number] 2.16.84 [id number] Unknown [id number] 2.16.84 [id number] Social History Date Type Detail Facility Start: 10-06-2021 End: 07-27-2023 Tobacco smoking status Never smoked tobacco (finding) [facility] Sex Assigned At Male [facility] Tobacco smoking status Never [facility] Start: 1955 Sex Assigned At Male [facility] Medical Equipment Procedure Code Equipment [...] 11-09-2022 Functional Status N/A [facility] Clinical Notes 10-06-2021 to 07-29-2023 Note Date & Type Note Facility 07-29-2023 Evaluation note Encounter Date Diagnosis Assessment Notes Jul, Type 2 diabetes mellitus with hyperglycemia , without long-term current use of insulin (ICD-10 - E11.65) [facility] Other 01-22-2024 Evaluation note* Encounter Date Diagnosis [...] index [BMI] 32.0-32.9, adult (ICD-10 - Z68.32) [facility] Other 11-24-2023 Evaluation note* Encounter Date Diagnosis [...] Microalbumin, Dilated eye exam and Foot exam [facility] Other 11-15-2023 Evaluation note* Encounter Date Diagnosis [...] flares Sep, Thrombocytopenia, unspecified (ICD-10 - D69.6) [facility] Other 11-15-2023 Evaluation note* Encounter Date Diagnosis [...] flares Sep, Thrombocytopenia, unspecified (ICD-10 - D69.6) [facility] Other 11-08-2023 Evaluation note* Encounter Date Diagnosis Assessment Notes Treatment Notes Treatment Clinical Notes Apr, Screening PSA (prostate specific antigen) (ICD-10 - Z12.5) Apr, Type 2 diabetes mellitus with hyperglycemia, without long-term current use of insulin (ICD-10 - E11.65) Apr, Elevated cholesterol (ICD-10 - E78.00) Apr, Primary hypertension (ICD-10 - I10) Sep, Thrombocytopenia, unspecified (ICD-10 - D69.6) Thrombocytopenia [facility] Other 07-12-2023 Evaluation note* Encounter Date Diagnosis [...] [BMI] 31.0-31.9, adult (ICD-10 - Z68.31) Dec, FPC (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 (ICD-10 - Z79.4) [facility] Other 05-26-2023 Hospital Discharge instructions Patient Education [...] treatment? Where to find more information [employer]: www.cancer.org [employer]: www.auanet.org Contact a health care [...] provider. Document Revised: 11/27/2021 Document Reviewed: 11/27/2021 [employer] Patient Education [address] [employer] Follow Up Care 10/06/2021 08:40:21 With:JOSE MCMANUS, Hola Rushing, URL Address: [facility] [address] [place] [address]- When: Unknown [facility] Kyree 05-08-2023 Evaluation note* Encounter Date Diagnosis Assessment Notes Treatment Notes Treatment Clinical Notes October, Primary hypertension (ICD-10 - I10) [facility] Other 05-04-2023 Evaluation note* Encounter Date Diagnosis Assessment Notes Treatment Notes Treatment Clinical Notes October, Primary hypertension (ICD-10 - I10) [facility] Other 04-21-2023 Evaluation note* Encounter Date Diagnosis [...] and Glimepiride appear to be controlling BS. [facility] Other 04-13-2023 Evaluation note* Encounter Date Diagnosis Assessment Notes Treatment Notes Treatment Clinical Notes Sep, Type 2 diabetes mellitus with hyperglycemia (ICD-10 - E11.65) Sep, terminologist (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 (ICD-10 - Z79.4) [facility] Other 04-11-2023 Evaluation note* Encounter Date Diagnosis Assessment Notes Treatment Notes Treatment Clinical Notes Sep, Type 2 diabetes mellitus with hyperglycemia, without long-term current use of insulin (ICD-10 - E11.65) [facility] Other 04-07-2023 Evaluation note* Encounter Date Diagnosis Assessment Notes Treatment Notes Treatment Clinical Notes Sep, Type 2 diabetes mellitus with hyperglycemia (ICD-10 - E11.65) [facility] Other 03-09-2023 Evaluation note* Encounter Date Diagnosis [...] Reviewed red flag symptoms and nerve impingement [facility] Other 02-28-2023 Evaluation note* Encounter Date Diagnosis Assessment Notes Treatment Notes Treatment Clinical Notes Jul, Type 2 diabetes mellitus with hyperglycemia, without long-term current use of insulin (ICD-10 - E11.65) [facility] Other 04-22-2022 Hospital Discharge instructions Patient Education [...] urethra. Follow these instructions at home: Take wxgm-dea-rthmryl and prescription medicines only as told by [...] 06/03/2006 Document Revised: 04/28/2019 Document Reviewed: 07/08/2017 [employer] Patient Education [address] [employer] Follow Up Care 10/03/2020 15:00:49 With:Hola GARCIA MD, URL Address: [facility] [address] [place] [address]- [phone] When:10/06/2022 [facility] evaluation + Plan note Future Appointments Appointment Date:10/12/2022 08:00:00 AM Scheduled Provider:Hola GARCIA MD Location:[facility] Appointment Type:URO Office Visit Diagnostic Tests Pending * PSA Total 10/06/21 [facility] evaluation + Plan note Future Appointments Appointment Date:11/18/2023 08:45:00 AM Scheduled Provider:Hola GARCIA MD Location:[facility] Appointment Type:URO Office Visit Diagnostic Tests Pending * PSA Free & Total 11/09/22 [facility] evaluation noteNort [employer] Other evaluation noteNo InformationNocoxhealth [facility] [facility] Other Evaluation note* Diagnosis Onset Date Resolution Status Elevated cholesterol acute Gastroesophageal reflux dise ase with esophagitis without hemorrhage acute Obesity acute Primary hypertension acute Spondylosis without myelopat hy or radiculopathy, lumbar region acute Type 2 diabetes mellitus with hyperglycemia acute [facility] Work Phone: Evaluation note* Diagnosis Onset Date Resolution Status Elevated cholesterol acute Gastroesophageal reflux dise ase with esophagitis without hemorrhage acute Primary hypertension acute Spondylosis without myelopat hy or radiculopathy, lumbar region acute Type 2 diabetes mellitus with hyperglycemia acute [facility] Work Phone: [employer] [facility] Narrative - Reported* Type Description Date [...] CYSTOSCOPY 2016 Hospitalization History SEE SURGICAL HX [facility] Other [facility] Narrative - ReportedNocoxhealth [employer] Other [facility] Narrative - Reported* Type Description Date [...] CYSTOSCOPY 2016 Hospitalization History SEE SURGICAL HX [facility] Other Hospital course Narrative No data available for this section [facility] progress note No data available for this section [facility] Summary Purpose Family History Relationship Condition [...] well ness visit, initial (Z00.00) Referral Organization [facility] Peter de la cruz Referring Provider First Name Bogdan Referring Provider Last Name Peter Referring Provider Specialty Internal Me dicine Referred Organization [facility] Referred Provider Swapnil French Referred Address [address], [place],[address] Referred Provider Specialty Pain Medicin e Referral [...] Notes Include XR lumbar sp ine f: [id number] Chief Complaint and Reason for Visit Chief [...] section and content) DATE CREATED AUTHOR 07/30/2021 [facility] DATE CREATED AUTHOR AUTHOR'S ORGANIZ ATION 08/22/2022 [facility] DATE CREATED AUTHOR AUTHOR'S ORGANIZ ATION 08/23/2023 [facility] DATE CREATED AUTHOR AUTHOR'S ORGANIZ ATION 11/14/2023 [facility] REASON FOR VISIT (unrecogniz ed section and content) BS readingsElevated blood cifuentes [id number] [facility] ResultsBP readingsrefillelevated BPMedication4 MONTH FOLLOW UP [...] PRIMARY CLINICAL RECORDS. [facility] [employer] [facility]. provides no warranty or guarantee of the accuracy or completeness of information in this document.
[2024-04-20 10:52] VITALS: BP 161/98; PULSE 78; TEMP 36.4; O2SAT 97
[2024-04-20 11:00] LABS: Glucometer 136 mg/dL (74-106)
[2024-04-20 11:21] VITALS: BP 161/77; PULSE 75; O2SAT 97
[2024-04-20 11:25] VITALS: BP 156/95; PULSE 74; O2SAT 95
[2024-04-20] MEDS: BUPIVACAINE HCL 0.25% PF 25 MG/10 ML VIAL INJ (11:26)
[2024-04-20] MEDS: 0.9 % SODIUM CHLORIDE 10 ML SYRINGE - SALINE FLUSH INJ (11:26)
--- NOTE | 2024-04-20 11:26 | W.PM.PROCNOT ---
Date of procedure: 04/20/24 Pre-op diagnosis: Pain due to lumbar stenosis with neurogenic claudication Post-op diagnosis: same as pre-op Procedure: Procedure: Bilateral L4-5 transforaminal epidural steroid injection Medications: Bupivacaine 0.25% 2cc, lidocaine 2% 1cc, kenalog 80mg The patient was seen and examined in the preoperative holding area.? Informed consent was obtained and placed on the chart.? Patient was brought to the medical procedure unit and placed in the prone position where a timeout was completed verifying the correct patient, procedure site, position, and planned special equipment using sterile aseptic technique.? Under direct fluoroscopic visualization a 25-gauge Quincke tipped spinal needle was advanced at level left L4-5 to the designated neural foramen where contrast dye was injected to show adequate spread.? There was no evidence of vascular or adverse uptake.? Epidural spread was appreciated.? The above-mentioned injectate was then placed in a 1.5 mL aliquot preceded by negative aspiration.? The needle was removed. The same procedure, at the same level, was completed on the opposite side. ? Patient was taken to the postprocedural recovery area and monitored for an appropriate length of time before found suitable for discharge in the accompaniment of a responsible adult. Anesthesia: Local Surgeon: Dm Cyr Pathology: none sent Condition: stable Disposition: no change
[2024-04-20] MEDS: LIDOCAINE HCL 2% 400 MG/20 ML MDV 3 ML INJ (11:27)
[2024-04-20] MEDS: TRIAMCINOLONE ACETONIDE 40 MG/ML VIAL 80 MG INJ (11:27)
[2024-04-20] MEDS: IOHEXOL 240 MG/ML - 10 ML VIAL 24 MG INJ (11:27)
== END 2024-04-20 11:29 | disposition home or self-care (01) ==
LOC: SURGOUT 09:54
PROVIDERS: PCP Internal Medicine; Visit Provider Anesthesiology
DX: M48.062 Spinal stenosis, lumbar region with neurogenic claudication (principal); E11.9 Type 2 diabetes mellitus without complications; Z79.84 Long term (current) use of oral hypoglycemic drugs; Z79.4 Long term (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
CPT/HCPCS: 36415; 64483; 82948; J0665; J3301; Q9966

== ENCOUNTER 2024-05-04 09:28 | Day surgery (SDC) | payer MEDICARE, BC, SELFPAY ==
--- OUTSIDE RECORDS SUMMARY | 2024-05-04 09:50 | XMS_ITS | CCD ---
Author Organization [facility] Care Team Providers Care Criminal Justice Social Worker Name Role Phone BOGDAN GREEN Primary Care Physician [phone] DR BOGDAN GREEN Primary Care Unavailable FRANCISCA [...] MCFADDEN Primary Care Unavailable GARCIA ., DR VAGUHN Consulting Unavailable BALL, DR MCFADDEN Admitting Unavailable BALL, DR MCFADDEN Attending Unavailable BALL, DR MCFADDEN Primary Care Unavailable BALL, DR MCFADDEN Consulting Unavailable Peter, Bogdan Unavailable Hola GARCIA Attending Unavailable Klarissa MCMANUS, Dm Santos Attending Unavailable Klarissa MCMANUS, Taus Tom Attending Unavailable Klarissa MCMANUS, Andrius Tom Attending Unavailable Klarissa MCMANUS, Andrius Tom Attending Unavailable Klarissa MCMANUS, Andrius Vytjovany Attending Unavailable Klarissa MCMANUS, Andkathy Vmarietta Attending Unavailable Allergies Allergy Classification Reported Allergen(s) Allergy Type Date of Onset Reaction(s) Facility (2 sources) patient allergy list reviewed by nurse or physicia Propensity to adverse reactions Comment:Done [place] Other (1 source) No Known Medication Allergies; 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: [No Known Medication Allergies] Propensity to adverse reactions (disorder) [facility] Repository Medications Current Medications Medication Drug [...] injector Active 1.5 MG SUBCUT every week 2 December 03, 2023 11:24am Start: 10-28-2023 End: 12-03-2023 [...] day(s), # 90 tab(s), Refills(s) 3, Pharmacy: [facility]/pharmacy #[id number], 195, cm, 11/09/22 11:00:00 EDT, Height/Length Dosing, 111, kg, 11/09/22 11:00:00 EDT, Weight Dosing Start Date: 11/09/22 Stop Date: 11/04/23 Status: Ordered Start: 10-06-2021 take 1 tablet by osbaldo once daily finasteride 5 mg Tab 5 mg = 1 tab(s), Oral, Daily, # 90 tab(s), Refills(s) 3, Pharmacy: [facility]/pharmacy #[id number], 195, cm, 10/06/21 8:16:00 EDT, [...] bid for 5 days Apr, Active [facility] [place] 5/16 (15 sources) Start: 09-27-2022 Start: 09-27-2022 [facility] [place] 5/ 16 Use to inject insulin qd [...] acid 4700 mg / polyethylene glycol 3350 237179 mg / potassium chloride 1015 mg / [...] 05-09-2015 Chronic Other aftercare (1 source) Other manager terminal (current) drug therapy; 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] Onset: 07-03-2022 Episodic Other aftercare (1 source) 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; 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: [SNF USE ORAL HYPOGLYCEMIC DX] Onset: 07-03-2022 Episodic Other aftercare (15 sources) Long-term current use of insulin; 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: [exterminator (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] Episodic Other aftercare (2 sources) longterm (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 Episodic Other aftercare (2 sources) Long-term current use of drug therapy; 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: [Other manager terminal (current) drug therapy] Episodic Other and unspecified [...] from glycated hemoglobin (Bld) [Mass/Vol] 169 mg/dL [facility] - Hematology and Cell countson 02-11-2024 HbA1c (Bld) [Mass fraction] 7.5 % High 4.5-6.2 [facility] Comment on above: ADA RECOMMENDED LIMI T 4.0 - 6.0ADA THERAPEUTIC TARGET < 7.0ACTION SUGGESTED> 7.0 Glucose mean value [Mass/vol ume] in Blood Estimated from glycated hemoglobinon 04-27-2024 Average glucose Estimated from glycated hemoglobin (Bld) [Mass/Vol] 180 mg/dL [facility] - Hematology and Cell countson 10-12-2023 HbA1c (Bld) [Mass fraction] 7.9 % 4.5-6.2 [facility] Comment on above: ADA RECOMMENDED LIMI T 4.0 - 6.0ADA THERAPEUTIC TARGET < 7.0ACTION SUGGESTED> 7.0 GLYCOHEMOGLOBIN A1Con 2022 ADA RECOMMENDATION SEE BELOW Normal [facility] Comment on above: Result Comment: ADA RECOMMENDED LIMIT 4.0 - 6.0 ADA THERAPEUTIC TARGET < 7.0 ACTION SUGGESTED > 7.0 Performed By: #### B MP, LIPID, ALT, URIC #### [facility] [address] [place] [address] Dr. Jorge L Carey Glucose [Mass/Vol] 148 mg/dL Normal [facility] Comment on above: Performed By: #### B MP, LIPID, ALT, URIC #### [facility] [address] [address] [address] Jorge L Carey HbA1c (Bld) [Mass fraction] 6.8 % Critically high 4.5-6.2 [facility] Comment on above: Performed By: #### B MP, LIPID, ALT, URIC #### [facility] [address] [address] [address] Jorge L Carey CARDIAC DANAY ADMITon 023 CK [Catalytic activity/Vol] 59 U/L Normal 39-308 [facility] Comment on above: Performed By: #### C MP, CMADM #### [facility] [address] [place] [address] Dr. Jorge L Carey CK.MB [Mass/Vol] 0.99 ng/mL Normal <=3.[address] [facility] Comment on above: Performed By: #### C IGGY, CMADM #### [facility] [address] [place] [address] Dr. Jorge L Carey HSTROP 10.0 pg/mL Normal 4.0-76.1 [facility] Comment on above: Result Comment: CUT- OFF POINTS HAVE BEEN ESTABLISHED BASED ON THE FOURTH UNIVERSAL DEFINITIONS OF MYOCARDIAL INFARCTION. THE UPPER REFERENCE LIMIT (URL) OF TROPONIN, DEFINED THE 99TH PERCENTILE OF cTnI DISTRIBUTION IN A REFERENCE POPULATION, HAS BEEN CONFIRMED THE DECISION THRESHOLD FOR LA DIAGNOSIS. Performed By: #### C IGGY, CMADM #### [facility] [address] [place] [address] Dr. Jorge L Carey GARLAND 52 ng/mL Normal 16-96 [facility] Comment on above: Performed By: #### C IGGY, CMADM #### [facility] [address] [place] [address] Dr. Jorge L Carey CBC AUTO DIFFon 07-01-2022 BASO # 0.0 103/ul Normal 0.0-0.1 [facility] Comment on above: Performed By: #### B MP, LIPID, ALT, URIC #### [facility] [address] [place] [address] Dr. Jorge L Carey Basophils/100 WBC (Bld) 0.3 % Normal 0.2-2.0 [facility] Comment on above: Performed By: #### B MP, LIPID, ALT, URIC #### [facility] [address] [place] [address] Dr. Jorge L Carey EO # 0.1 103/ul Normal 0.0-0.7 [facility] Comment on above: Performed By: #### B MP, LIPID, ALT, URIC #### [facility] [address] [place] [address] Dr. Jorge L Carey Eosinophils/100 WBC (Bld) 0.9 % Normal 0.9-7.0 [facility] Comment on above: Performed By: #### B MP, LIPID, ALT, URIC #### [facility] [address] [place] [address] Dr. Jorge L Carey Erythrocyte distribution width (RBC) [Ratio] 11.7 % Normal 11.0-15.0 [facility] Comment on above: Performed By: #### B MP, LIPID, ALT, URIC #### [facility] [address] [place] [address] Dr. Jorge L Carey Hematocrit (Bld) [Volume fraction] 41.1 % Critically low 42.0-54.0 [facility] Comment on above: Performed By: #### B MP, LIPID, ALT, URIC #### [facility] [address] [address] [address] Jorge L Carey Hemoglobin (Bld) [Mass/Vol] 14.5 g/dL Normal 14.0-18.0 [facility] Comment on above: Performed By: #### B MP, LIPID, ALT, URIC #### [facility] [address] [place] [address] Dr. Jorge L Carey IG # 0.02 10e3/ul Normal 0.00-0.03 [facility] Comment on above: Performed By: #### B MP, LIPID, ALT, URIC #### [facility] [address] [place] [address] Dr. Jorge L Carey IG % 0.3 % Normal 0.0-0.5 [facility] Comment on above: Performed By: #### B MP, LIPID, ALT, URIC #### [facility] [address] [place] [address] Dr. Jorge L Carey LYMPH # 1.1 103/ul Critically low 1.2-3.8 [facility] Comment on above: Performed By: #### B MP, LIPID, ALT, URIC #### [facility] [address] [place] [address] Dr. Jorge L Carey Lymphocytes/100 WBC (Bld) 16.6 % Critically low 20.5-60.0 [facility] Comment on above: Performed By: #### B MP, LIPID, ALT, URIC #### [facility] [address] [place] [address] Dr. Jorge L Carey MANUAL DIFF REQ NO Normal [facility] Comment on above: Performed By: #### B MP, LIPID, ALT, URIC #### [facility] [address] [place] [address] Dr. Jorge L Carey MCH (RBC) [Entitic mass] 30.1 pg Normal 25.9-34.0 [facility] Comment on above: Performed By: #### B MP, LIPID, ALT, URIC #### [facility] [address] [place] [address] Dr. Jorge L Carey MCHC (RBC) [Mass/Vol] 35.3 g/dL Critically high 29.9-35.2 [facility] Comment on above: Performed By: #### B MP, LIPID, ALT, URIC #### [facility] [address] [address] [address] Jorge L Carey MCV (RBC) [Entitic vol] 85.4 fL Normal 80.0-94.0 [facility] Comment on above: Performed By: #### B MP, LIPID, ALT, URIC #### [facility] [address] [place] [address] Dr. Jorge L Carey MONO # 0.4 103/ul Normal 0.3-0.8 [facility] Comment on above: Performed By: #### B MP, LIPID, ALT, URIC #### [facility] [address] [place] [address] Dr. Jorge L Carey Monocytes/100 WBC (Bld) 5.1 % Normal 1.7-12.0 [facility] Comment on above: Performed By: #### B MP, LIPID, ALT, URIC #### [facility] [address] [place] [address] Dr. Jorge L Carey NEUT # 5.3 103/ul Normal 1.4-6.5 [facility] Comment on above: Performed By: #### B MP, LIPID, ALT, URIC #### [facility] [address] [place] [address] Dr. Jorge L Carey Neutrophils/100 WBC (Bld) 76.8 % Critically high 43.0-75.0 [facility] Comment on above: Performed By: #### B MP, LIPID, ALT, URIC #### [facility] [address] [place] [address] Dr. Jorge L Carey Platelet mean volume (Bld) [Entitic vol] 12.1 fL Normal 9.5-13.5 [facility] Comment on above: Performed By: #### B MP, LIPID, ALT, URIC #### [facility] [address] [place] [address] Dr. Jorge L Carey PLT 147 103/ul Critically low 150-450 [facility] Comment on above: Performed By: #### B MP, LIPID, ALT, URIC #### [facility] [address] [address] [address] Jorge L Carey RBC 4.81 106/ul Normal 4.70-6.10 [facility] Comment on above: Performed By: #### B MP, LIPID, ALT, URIC #### [facility] [id number] Jorge L Carey WBC 6.9 103/ul Normal 4.0-11.0 [facility] Comment on above: Performed By: #### B MP, LIPID, ALT, URIC #### [facility] [address] [address] [address] Jorge L [address] HEAD WO [...] MALENA LÓPEZ Date: 2022-07-01 20:24 Normal [facility] Covid-19 PCR (CVDTB)on 06-17 SARS-CoV-2 (COVID-19) RNA EDVIN+probe Ql (Unsp spec) Not detected Normal NOT DETECTED [facility] Comment on above: Result Comment: [...] for this test is supported by the [place] of Health and Human Service's declaration that [...] used). Performed By: #### C VDTBH #### [facility] [address] [place] [address] Dr. Jorge L Carey D-DIMERon 07-01-2022 D-DIMER 0.21 mg/L FEU Normal <=0.59 [facility] Comment on above: Performed By: #### B MP, LIPID, ALT, URIC #### [facility] [address] [place] [address] Dr. Jorge L Carey D-DIMER COMMENTS SEE BELOW Normal [facility] Comment on above: Result Comment: Incr [...] #### B MP, LIPID, ALT, URIC #### [facility] [address] [place] [address] Dr. Jorge L Carey ER URINE PROFILEon 3 Bilirubin Ql (U) Negative Normal NEGATIVE [facility] Comment on above: Performed By: #### B MP, LIPID, ALT, URIC #### [facility] [address] [address] [address] Jorge L Carey Clarity (U) CLEAR Normal CLEAR [facility] Comment on above: Performed By: #### B MP, LIPID, ALT, URIC #### [facility] [address] [address] [address] Jorge L Carey Color (U) LT. YELLOW Normal YELLOW [facility] Comment on above: Performed By: #### B MP, LIPID, ALT, URIC #### [facility] [address] [address] [address] Jorge L Carey ERUAHJacy A micrscopic examination will be performed if indicated. Normal [facility] Comment on above: Performed By: #### B MP, LIPID, ALT, URIC #### [facility] [address] [place] [address] Dr. Jorge L Carey Glucose Ql (U) Negative Normal NEGATIVE [facility] Comment on above: Performed By: #### B MP, LIPID, ALT, URIC #### [facility] [address] [place] [address] Dr. Jorge L Carey Hemoglobin Ql (U) Negative Normal NEGATIVE [facility] Comment on above: Performed By: #### B MP, LIPID, ALT, URIC #### [facility] [address] [place] [address] Dr. Jorge L Carey Ketones Ql (U) Negative Normal NEGATIVE [facility] Comment on above: Performed By: #### B MP, LIPID, ALT, URIC #### [facility] [address] [address] [address] Jorge L Carey LEUKOCYTES Negative Normal NEGATIVE [facility] Comment on above: Performed By: #### B MP, LIPID, ALT, URIC #### [facility] [address] [address] [address] Jorge L Carey Nitrite Ql (U) Negative Normal NEGATIVE [facility] Comment on above: Performed By: #### B MP, LIPID, ALT, URIC #### [facility] [address] [address] [address] Jorge L Carey pH (U) 6.0 [pH] Normal 5-9 [facility] Comment on above: Performed By: #### B MP, LIPID, ALT, URIC #### [facility] [address] [place] [address] Dr. Jorge L Carey SPEC GRAVITY 1.020 Normal 1.005-<=1.025 [facility] Comment on above: Performed By: #### B MP, LIPID, ALT, URIC #### [facility] [address] [place] [address] Dr. Jorge L Carey UA PROTEIN Negative Normal NEGATIVE/ TRACE [facility] Comment on above: Performed By: #### B MP, LIPID, ALT, URIC #### [facility] [address] [place] [address] Dr. Jorge L Carey UR MICRO IND NOT INDICATED Normal [facility] Comment on above: Performed By: #### B MP, LIPID, ALT, URIC #### [facility] [address] [place] [address] Dr. Jorge L Carey Urobilinogen Qn (U) 1.0 {Ila'U}/dL Normal 0.2 - 1. 0 [facility] Comment on above: Performed By: #### B MP, LIPID, ALT, URIC #### [facility] [address] [place] [address] Dr. Jorge L Carey INFLUENZA A AND B AGon 07-01 [facility] SEE BELOW Normal [facility] Comment on above: Result Comment: Nega tive for Flu A protein angiten. Infection due to Flu A cannot be ruled out. Flu A angiten in the sample may be below the detection limit of the test. Performed By: #### I NFLUAB #### [facility] [address] [place] [address] Dr. Jorge L Carey INFLUBNEGH SEE BELOW Normal [facility] Comment on above: Result Comment: Nega tive for Flu B protein antigen. Infection due to Flu B cannot be ruled out. Flu B antigen in the sample may be below the detection limit of the test. Performed By: #### I NFLUAB #### [facility] [address] [place] [address] Dr. Jorge L Carey INFLUENZA A AG Negative Normal NEGATIVE SEE COMMENT [facility] Comment on above: Performed By: #### I NFLUAB #### [facility] [address] [place] [address] Dr. Jorge L Carey INFLUENZA B AG Negative Normal NEGATIVE SEE COMMENT [facility] Comment on above: Performed By: #### I NFLUAB #### [facility] [address] [place] [address] Dr. Jorge L Carey POINT OF CARE GLUCOSEon 06-17 Glucose [Mass/Vol] 130 mg/dL Critically high 74-106 [facility] Comment on above: Performed By: #### B MP, LIPID, ALT, URIC #### [facility] [address] [place] [address] Dr. Jorge L Carey PROF 14(COMP METB)on 023 Albumin [Mass/Vol] 3.7 g/dL Normal 3.4-5.0 [facility] Comment on above: Performed By: #### C CEE PARKINSON #### [facility] [address] [place] [address] Dr. Jorge L Carey Albumin/Globulin [Mass ratio] 1.2 {ratio} Normal [facility] Comment on above: Performed By: #### C RAMY PARKINSONDM #### [facility] [address] [place] [address] Dr. Jorge L Carey ALP [Catalytic activity/Vol] 49 U/L Normal 46-116 [facility] Comment on above: Performed By: #### C IGGY, CMADM #### [facility] [address] [place] [address] Dr. Jorge L Carey ALT [Catalytic activity/Vol] 30 U/L Normal 16-63 [facility] Comment on above: Performed By: #### C IGGY, CMADM #### [facility] [address] [place] [address] Dr. Jorge L Carey Anion gap [Moles/Vol] 12.7 mmol/L Normal [facility] Comment on above: Performed By: #### C IGGY, CMADM #### [facility] [address] [place] [address] Dr. Jorge L Carey AST [Catalytic activity/Vol] 21 U/L Normal 15-37 [facility] Comment on above: Performed By: #### C IGGY, CMADM #### [facility] [address] [address] [address] Jorge L Carey Bilirubin [Mass/Vol] 0.5 mg/dL Normal 0.2-1.0 [facility] Comment on above: Performed By: #### C IGGY, CMADM #### [facility] [address] [place] [address] Dr. Jorge L Carey Calcium [Mass/Vol] 8.9 mg/dL Normal 8.5-10.1 [facility] Comment on above: Performed By: #### C IGGY, CMADM #### [facility] [address] [place] [address] Dr. Jorge L Carey Chloride [Moles/Vol] 100 mmol/L Normal 98-107 [facility] Comment on above: Performed By: #### C IGGY, CMADM #### [facility] [address] [place] [address] Dr. Jorge L Carey CO2 [Moles/Vol] 29.0 mmol/L Normal 21.0-32.0 [facility] Comment on above: Performed By: #### C IGGY, CMADM #### [facility] [address] [place] [address] Dr. Jorge L Carey Creatinine [Mass/Vol] 1.04 mg/dL Normal 0.70-1.30 [facility] Comment on above: Performed By: #### C IGGY, CMADM #### [facility] [address] [place] [address] Dr. Jorge L Carey EGFR-AF BRAZILIAN >60 Normal >=[address] [facility] Comment on above: Performed By: #### C IGGY, CMADM #### [facility] [address] [place] [address] Dr. Jorge L Carey EGFR-NON AF BRAZILIAN >60 Normal >=60 [facility] Comment on above: Performed By: #### C IGGY, CMADM #### [facility] [address] [place] [address] Dr. Jorge L Carey Globulin (S) [Mass/Vol] 3.1 g/dL Normal [facility] Comment on above: Performed By: #### C IGGY, RAMYDM #### [facility] [address] [address] [address] Jorge L Carey Glucose [Mass/Vol] 140 mg/dL Critically high 74-106 [facility] Comment on above: Performed By: #### C IGGY, CMADM #### [facility] [address] [address] [address] Jorge L Carey Potassium [Moles/Vol] 3.7 mmol/L Normal 3.5-5.1 [facility] Comment on above: Performed By: #### C IGGY, ARMYDM #### [facility] [address] [place] [address] Dr. Jorge L Carey Protein [Mass/Vol] 6.8 g/dL Normal 6.4-8.2 [facility] Comment on above: Performed By: #### C IGGY, RAMYDM #### [facility] [address] [place] [address] Dr. Jorge L Carey Sodium [Moles/Vol] 138 mmol/L Normal 136-145 [facility] Comment on above: Performed By: #### C IGGY, RAMYDM #### [facility] [address] [place] [address] Dr. Jorge L Carey Urea nitrogen [Mass/Vol] 13.0 mg/dL Normal 7.0-18.0 [facility] Comment on above: Performed By: #### C IGGY, CMADM #### [facility] [address] [place] [address] Dr. Jorge L Carey Urea nitrogen/Creatinine [Mass ratio] 12.5 mg/mg Normal [facility] Comment on above: Performed By: #### C IGGY, CMADM #### [facility] [address] [place] [address] Dr. Jorge L Carey TROPONIN, HIGH SENSITIVITYon 07-01-2022 HSTROP 10.9 pg/mL Normal 4.0-76.1 [facility] Comment on above: Result Comment: CUT- OFF POINTS HAVE BEEN ESTABLISHED BASED ON THE FOURTH UNIVERSAL DEFINITIONS OF MYOCARDIAL INFARCTION. THE UPPER REFERENCE LIMIT (URL) OF TROPONIN, DEFINED THE 99TH PERCENTILE OF cTnI DISTRIBUTION IN A REFERENCE POPULATION, HAS BEEN CONFIRMED THE DECISION THRESHOLD FOR LA DIAGNOSIS. Performed By: #### B MP, LIPID, ALT, URIC #### [facility] [address] [place] [address] Dr. Jorge L Carey XR CHEST 1 [...] FILIPPO MASTERS Date: 2022-07-01 19:57 Normal [facility] CBC AUTO DIFFon 04-18-2022 BASO # 0.0 103/ul Normal 0.0-0.1 [facility] Comment on above: Performed By: #### C BC #### [facility] [address] [place] [address] Dr. Jorge L Carey Basophils/100 WBC (Bld) 0.7 % Normal 0.2-2.0 [facility] Comment on above: Performed By: #### C BC #### [facility] [address] [place] [address] Dr. Jorge L Carey EO # 0.2 103/ul Normal 0.0-0.7 [facility] Comment on above: Performed By: #### C BC #### [facility] [address] [place] [address] Dr. Jorge L Carey Eosinophils/100 WBC (Bld) 2.6 % Normal 0.9-7.0 [facility] Comment on above: Performed By: #### C BC #### [facility] [address] [place] [address] Dr. Jorge L Carey Erythrocyte distribution width (RBC) [Ratio] 11.5 % Normal 11.0-15.0 [facility] Comment on above: Performed By: #### C BC #### [facility] [address] [place] [address] Dr. Jorge L Carey Hematocrit (Bld) [Volume fraction] 44.7 % Normal 42.0-54.0 [facility] Comment on above: Performed By: #### C BC #### [facility] [address] [place] [address] Dr. Jorge L Carey Hemoglobin (Bld) [Mass/Vol] 15.5 g/dL Normal 14.0-18.0 [facility] Comment on above: Performed By: #### C BC #### [facility] [address] [place] [address] Dr. Jorge L Carey IG # 0.01 10e3/ul Normal 0.00-0.03 [facility] Comment on above: Performed By: #### C BC #### [facility] [address] [place] [address] Dr. Jorge L Carey IG % 0.2 % Normal 0.0-0.5 [facility] Comment on above: Performed By: #### C BC #### [facility] [address] [place] [address] Dr. Jorge L Carey LYMPH # 1.3 103/ul Normal 1.2-3.8 [facility] Comment on above: Performed By: #### C BC #### [facility] [address] [place] [address] Dr. Jorge L Carey Lymphocytes/100 WBC (Bld) 21.3 % Normal 20.5-60.0 [facility] Comment on above: Performed By: #### C BC #### [facility] [address] [place] [address] Dr. Jorge L Carey MANUAL DIFF REQ NO Normal The [facility] Comment on above: Performed By: #### C BC #### [facility] [address] [place] [address] Dr. Jorge L Carey MCH (RBC) [Entitic mass] 30.1 pg Normal 25.9-34.0 [facility] Comment on above: Performed By: #### C BC #### [facility] [address] [place] [address] Dr. Jorge L Carey MCHC (RBC) [Mass/Vol] 34.7 g/dL Normal 29.9-35.2 [facility] Comment on above: Performed By: #### C BC #### [facility] [address] [place] [address] Dr. Jorge L Carey MCV (RBC) [Entitic vol] 86.8 fL Normal 80.0-94.0 [facility] Comment on above: Performed By: #### C BC #### [facility] [address] [address] [address] Jorge L Carey MONO # 0.4 103/ul Normal 0.3-0.8 [facility] Comment on above: Performed By: #### C BC #### [facility] [address] [place] [address] Dr. Jorge L Carey Monocytes/100 WBC (Bld) 7.2 % Normal 1.7-12.0 [facility] Comment on above: Performed By: #### C BC #### [facility] [address] [place] [address] Dr. Jorge L Carey NEUT # 4.1 103/ul Normal 1.4-6.5 [facility] Comment on above: Performed By: #### C BC #### [facility] [address] [place] [address] Dr. Jorge L Carey Neutrophils/100 WBC (Bld) 68.0 % Normal 43.0-75.0 [facility] Comment on above: Performed By: #### C BC #### [facility] [address] [place] [address] Dr. Jorge L Carey Platelet mean volume (Bld) [Entitic vol] 12.0 fL Normal 9.5-13.5 [facility] Comment on above: Performed By: #### C BC #### [facility] [address] [place] [address] Dr. Jorge L Carey PLT 163 103/ul Normal 150-450 [facility] Comment on above: Performed By: #### C BC #### [facility] [address] [place] [address] Dr. Jorge L Carey RBC 5.15 106/ul Normal 4.70-6.10 [facility] Comment on above: Performed By: #### C BC #### [facility] [address] [address] [address] Jorge L Carey WBC 6.1 103/ul Normal 4.0-11.0 [facility] Comment on above: Performed By: #### C BC #### [facility] [address] [address] [address] Jorge L Carey GLYCOHEMOGLOBIN A1Con 2021 ADA RECOMMENDATION SEE BELOW Normal [facility] Comment on above: Result Comment: ADA RECOMMENDED LIMIT 4.0 - 6.0 ADA THERAPEUTIC TARGET < 7.0 ACTION SUGGESTED > 7.0 Performed By: #### B MP, LIPID, ALT, URIC #### [facility] [address] [place] [address] Dr. Jorge L Carey Glucose [Mass/Vol] 146 mg/dL Normal [facility] Comment on above: Performed By: #### B MP, LIPID, ALT, URIC #### [facility] [address] [place] [address] Dr. Jorge L Carey HbA1c (Bld) [Mass fraction] 6.7 % Critically high 4.5-6.2 [facility] Comment on above: Performed By: #### B MP, LIPID, ALT, URIC #### [facility] [address] [place] [address] Dr. Jorge L Carey LIPID PROFILEon 04-18-2022 CHOL-HDL RATIO NORM SEE BELOW Normal [facility] Comment on above: Result Comment: 3.3 - 4.4 LOW RISK 4.4 - 7.1 AVERAGE RISK 7.1 - 11.0 MODERATE RISK >11.0 HIGH RISK Performed By: #### B MP, LIPID, ALT, URIC #### [facility] [address] [place] [address] Dr. Jorge L Carey Cholesterol [Mass/Vol] 117 mg/dL Normal <=200 [facility] Comment on above: Performed By: #### B MP, LIPID, ALT, URIC #### [facility] [address] [place] [address] Dr. Jorge L Carey Cholesterol in HDL [Mass/Vol] 48 mg/dL Normal 40-60 [facility] Comment on above: Performed By: #### B MP, LIPID, ALT, URIC #### [facility] [address] [address] [address] Jorge L Carey Cholesterol in LDL [Mass/Vol] 50.6 mg/dL Normal [facility] Comment on above: Performed By: #### B MP, LIPID, ALT, URIC #### [facility] [address] [address] [address] Jorge L Carey Cholesterol.total/Cho lesterol in HDL [Mass ratio] 2.4 {ratio} Normal [facility] Comment on above: Performed By: #### B MP, LIPID, ALT, URIC #### [facility] [address] [place] [address] Dr. Jorge L Carey HDL NORMAL > or = 60 mg/dl - LOW CARDIOVASCULAR RISK <40 mg/dl - HIGH CARDIOVASCULAR RISK Normal [facility] Comment on above: Performed By: #### B MP, LIPID, ALT, URIC #### [facility] [address] [address] [address] Jorge L Carey LDL CALC NORMAL SEE BELOW Normal [facility] Comment on above: Result Comment: <100 mg/dl OPTIMAL 100 - 129 mg/dl NEAR OR ABOVE OPTIMAL 130 - 159 mg/dl BORDERLINE HIGH 160 - 189 mg/dl HIGH >190 mg/dl VERY HIGH Performed By: #### B MP, LIPID, ALT, URIC #### [facility] [address] [address] [address] Jorge L Carey Triglyceride [Mass/Vol] 92 mg/dL Normal <=150 [facility] Comment on above: Performed By: #### B MP, LIPID, ALT, URIC #### [facility] [address] [address] [address] Jorge L Carey VLDL CALC 18.4 mg/dL Normal [facility] Comment on above: Performed By: #### B MP, LIPID, ALT, URIC #### [facility] [address] [address] [address] Jorge L Carey MICROALBUMIN, RAND URon 11-0 mALB <1.3 Normal <=30.0 [facility] Comment on above: Performed By: #### M ALBR #### [facility] [address] [place] [address] Dr. Jorge L Carey PROF CHEM 8 (BAS METB)on Anion gap [Moles/Vol] 9.5 mmol/L Normal [facility] Comment on above: Performed By: #### B MP, LIPID, ALT, URIC #### [facility] [address] [place] [address] Dr. Jorge L Carey Calcium [Mass/Vol] 8.6 mg/dL Normal 8.5-10.1 [facility] Comment on above: Performed By: #### B MP, LIPID, ALT, URIC #### [facility] [address] [place] [address] Dr. Jorge L Carey Chloride [Moles/Vol] 102 mmol/L Normal 98-107 [facility] Comment on above: Performed By: #### B MP, LIPID, ALT, URIC #### [facility] [address] [place] [address] Dr. Jorge L Carey CO2 [Moles/Vol] 30.8 mmol/L Normal 21.0-32.[address] [facility] Comment on above: Performed By: #### B MP, LIPID, ALT, URIC #### [facility] [address] [place] [address] Dr. Jorge L Carey Creatinine [Mass/Vol] 0.95 mg/dL Normal 0.70-1.30 [facility] Comment on above: Performed By: #### B MP, LIPID, ALT, URIC #### [facility] [address] [place] [address] Dr. Jorge L Carey EGFR-AF BRAZILIAN >60 Normal >=[address] [facility] Comment on above: Performed By: #### B MP, LIPID, ALT, URIC #### [facility] [address] [place] [address] Dr. Jorge L Carey EGFR-NON AF BRAZILIAN >60 Normal >=60 [facility] Comment on above: Performed By: #### B MP, LIPID, ALT, URIC #### [facility] [address] [address] [address] Jorge L Carey Glucose [Mass/Vol] 142 mg/dL Critically high 74-106 [facility] Comment on above: Performed By: #### B MP, LIPID, ALT, URIC #### [facility] [address] [place] [address] Dr. Jorge L Carey Potassium [Moles/Vol] 4.3 mmol/L Normal 3.5-5.1 [facility] Comment on above: Performed By: #### B MP, LIPID, ALT, URIC #### [facility] [address] [place] [address] Dr. Jorge L Carey Sodium [Moles/Vol] 138 mmol/L Normal 136-145 [facility] Comment on above: Performed By: #### B MP, LIPID, ALT, URIC #### [facility] [address] [place] [address] Dr. Jorge L Carey Urea nitrogen [Mass/Vol] 14.0 mg/dL Normal 7.0-18.0 [facility] Comment on above: Performed By: #### B MP, LIPID, ALT, URIC #### [facility] [address] [place] [address] Dr. Jorge L Carey Urea nitrogen/Creatinine [Mass ratio] 14.7 mg/mg Normal [facility] Comment on above: Performed By: #### B MP, LIPID, ALT, URIC #### [facility] [address] [place] [address] Dr. Jorge L Carey SGPTon 04-18-2022 ALT [Catalytic activity/Vol] 27 U/L Normal 16-63 [facility] Comment on above: Performed By: #### B MP, LIPID, ALT, URIC #### [facility] [address] [place] [address] Dr. Jorge L Carey URIC ACID SERUMon 04-18-2022 Urate [Mass/Vol] 5.5 mg/dL Normal 3.5-7.2 [facility] Comment on above: Performed By: #### B MP, LIPID, ALT, URIC #### [facility] [address] [address] [address] Jorge L Carey GLYCOHEMOGLOBIN A1Con 2021 ADA RECOMMENDATION SEE BELOW Normal [facility] Comment on above: Result Comment: ADA RECOMMENDED LIMIT 4.0 - 6.0 ADA THERAPEUTIC TARGET < 7.0 ACTION SUGGESTED > 7.0 Performed By: #### B MP, LIPID, ALT, URIC #### [facility] [address] [address] [address] Jorge L Carey Glucose [Mass/Vol] 160 mg/dL Normal [facility] Comment on above: Performed By: #### B MP, LIPID, ALT, URIC #### [facility] [address] [address] [address] Jorge L Carey HbA1c (Bld) [Mass fraction] 7.2 % Critically high 4.5-6.2 [facility] Comment on above: Performed By: #### B MP, LIPID, ALT, URIC #### [facility] [address] [address] [address] Jorge L Carey GLYCOHEMOGLOBIN A1Con 2021 ADA RECOMMENDATION ADA THERAPEUTIC TARGET 6.0 - 7.0 ACTION SUGGESTED > 7.0 Normal [facility] Comment on above: Performed By: #### B MP, LIPID, ALT, URIC #### [facility] [address] [address] [address] Jorge L Carey Glucose [Mass/Vol] 177 mg/dL Normal [facility] Comment on above: Performed By: #### B MP, LIPID, ALT, URIC #### [facility] [address] [address] [address] Jorge L Carey HbA1c (Bld) [Mass fraction] 7.8 % Critically high <=6.0 [facility] Comment on above: Performed By: #### B MP, LIPID, ALT, URIC #### [facility] [address] [place] [address] Dr. Jorge L Carey [facility] 09-17-2020 Glucose [Mass/Vol] 151 mg/dL Normal [facility] Comment on above: Result Comment: PERF ORMED BY: [facility] [address] [id number] PATHOLOGIST [employer] SUSAN SEXTON M.D. Performed By: #### O UTREACH GLYCO #### [facility] [address] [id number] [facility] HbA1c (Bld) [Mass fraction] 6.9 % High 4.3-5.6 [facility] Comment on above: Result Comment: Incr eased risk for diabetes: 5.7 - 6.4 diabetes: >6.4 glycemic control for adults with diabetes: <7.0 Performed By: #### O UTREACH GLYCO #### [facility] [address] [place] [address] [facility] Vital Signs Date Time Vital Sign Value Performing Clinician Facility 02-18-2024 09:37-0400 Body height 190.5 cm [facility] 02-18-2024 09:37-0400 Body mass index (BMI) [Ratio] 32.1 kg/m2 [facility] 02-18-2024 09:37-0400 Body weight 116.74 kg [facility] 02-18-2024 09:37-0400 Diastolic blood pressure 81 mm[Hg] [facility] 02-18-2024 09:37-0400 Heart rate 76 /min [facility] 02-18-2024 09:37-0400 Respiratory rate 12 /min [facility] 02-18-2024 09:37-0400 Systolic blood pressure 136 mm[Hg] [facility] 10-18-2023 09:06-0400 Body height 190.5 cm [facility] 10-18-2023 09:06-0400 Body mass index (BMI) [Ratio] 31.8 kg/m2 [facility] 10-18-2023 09:06-0400 Body weight 115.32 kg [facility] 10-18-2023 09:06-0400 Diastolic blood pressure 77 mm[Hg] [facility] 10-18-2023 09:06-0400 Heart rate 80 /min [facility] 10-18-2023 09:06-0400 Respiratory rate 12 /min [facility] 10-18-2023 09:06-0400 Systolic blood pressure 116 mm[Hg] [facility] 07-08-2023 09:00-0500 Body height 190.5 cm Bogdan Ball Other [facility] 07-08-2023 09:00-0500 Body mass index (BMI) [Ratio] 32.62 kg/m2 Bogdan Ball Other [facility] 07-08-2023 09:00-0500 Body weight 118.39 kg Bogdan Ball Other [facility] 07-08-2023 09:00-0500 Diastolic blood pressure 81 mm[Hg] Bogdan Ball Other [facility] 07-08-2023 09:00-0500 Respiratory rate 12 /min Bogdan Ball Other [facility] 07-08-2023 09:00-0500 Systolic blood pressure 117 mm[Hg] Bogdan Ball Other [facility] 05-01-2023 08:30-0500 Body height 190.5 cm Bogdan Ball Other [facility] 05-01-2023 08:30-0500 Body mass index (BMI) [Ratio] 32.19 kg/m2 Bog[facility] Ball Other [facility] 05-01-2023 08:30-0500 Body weight 116.85 kg Bogdan Ball Other [facility] 05-01-2023 08:30-0500 Diastolic blood pressure 81 mm[Hg] Bogdan Ball Other [facility] 05-01-2023 08:30-0500 Respiratory rate 12 /min Bogdan Ball Other [facility] 05-01-2023 08:30-0500 Systolic blood pressure 135 mm[Hg] Bogdan Ball Other [facility] 12-26-2022 08:30-0400 Body height 190.5 cm Bogdan Ball Other [facility] 12-26-2022 08:30-0400 Body mass index (BMI) [Ratio] 31.54 kg/m2 Bogdan Ball Other [facility] 12-26-2022 08:30-0400 Body weight 114.49 kg Bogdan Ball Other [facility] 12-26-2022 08:30-0400 Diastolic blood pressure 85 mm[Hg] Bogdan Ball Other [facility] 12-26-2022 08:30-0400 Respiratory rate 12 /min Bogdan Ball Other [facility] 12-26-2022 08:30-0400 Systolic blood pressure 139 mm[Hg] Bogdan Ball Other [facility] 11-09-2022 10:58-0400 Blood Pressure Location Hola GARCIA [facility] 11-09-2022 10:58-0400 Diastolic blood pressure 80 mm[Hg] Hola GARCIA [facility] 11-09-2022 10:58-0400 Heart rate 78 /min Hola GARCIA [facility] 11-09-2022 10:58-0400 Respiratory rate 16 /min Hola GARCIA [facility] 11-09-2022 10:58-0400 Systolic blood pressure 130 mm[Hg] Hola GARCIA [facility] 10-05-2022 12:15-0400 Body height 190.5 cm Bogdan Ball Other [facility] 10-05-2022 12:15-0400 Body mass index (BMI) [Ratio] 31.17 kg/m2 Bogdan Ball Other [facility] 10-05-2022 12:15-0400 Body weight 113.13 kg Bogdan Ball Other [facility] 10-05-2022 12:15-0400 Diastolic blood pressure 95 mm[Hg] Bogdan Ball Other [facility] 10-05-2022 12:15-0400 Respiratory rate 12 /min Bogdan Ball Other [facility] 10-05-2022 12:15-0400 Systolic blood pressure 168 mm[Hg] Bogdan Ball Other [facility] 08-23-2022 08:30-0500 Body height 190.5 cm Bogdan Ball Other [facility] 08-23-2022 08:30-0500 Body mass index (BMI) [Ratio] 31.42 kg/m2 Bogdan Ball Other [facility] 08-23-2022 08:30-0500 Body weight 114.04 kg Bogdan Ball Other [facility] 08-23-2022 08:30-0500 Diastolic blood pressure 86 mm[Hg] Bogdan Green Other [facility] 08-23-2022 08:30-0500 Respiratory rate 12 /min Bogdan Green Other [facility] 08-23-2022 08:30-0500 Systolic blood pressure 132 mm[Hg] Bogdan Green Other [facility] 10-06-2021 08:14-0400 Blood Pressure Location Hola GARCIA [facility] 10-06-2021 08:14-0400 Diastolic blood pressure 98 mm[Hg] [place] [facility] 10-06-2021 08:14-0400 Heart rate 78 /min [place] GARCIA [facility] 10-06-2021 08:14-0400 Systolic blood pressure 145 mm[Hg] [place] GARCIA [facility] Encounters Encounter Date Encounter Type Care Provider Facility Start: 04-20-2024 End: 04-20-2024 ambulatory Dm Cyr MD Facility:[facility] [place] Start: 04-03-2024 ambulatory Hola Cid ty:[facility] [place] Start: 02-18-2024 End: 02-18-2024 ambulatory [facility] Work Phone: Start: 02-18-2024 End: 02-18-2024 Patient encounter procedure [facility] Physician [facility] Work Phone: Start: 02-11-2024 Non-patient / Non-visit [facility] Work Phone: Start: 10-18-2023 End: 10-18-2023 ambulatory [facility] Work Phone: Start: 10-18-2023 End: 10-18-2023 Patient encounter procedure [facility] Work Phone: Start: 10-12-2023 Non-patient / Non-visit [facility] Work Phone: Start: 08-23-2023 Non-patient / Non-visit [facility] Work Phone: Start: 08-19-2023 End: 08-19-2023 ambulatory Dm Cyr MD Facility: [facility] Start: 08-16-2023 Non-patient / Non-visit [facility] Work Phone: Start: 07-30-2023 Non-patient / Non-visit [facility] Work Phone: Start: 07-29-2023 End: 07-29-2023 ambulatory Bogdan Green Other [facility] Other Start: 07-29-2023 Telephone encounter Bogdan Green [facility] Start: 07-29-2023 End: 07-29-2023 ambulatory Dm Cyr MD Facility:[facility] Start: 07-15-2023 End: 07-15-2023 ambulatory Dm Cyr MD Facility:[facility] Start: 07-08-2023 End: 07-08-2023 ambulatory Bogdan Green Other [facility] Other Start: 07-08-2023 Office outpatient vi sit 25 minutes Bogdan Green [facility] Start: 06-24-2023 End: 06-24-2023 ambulatory Dm Cyr MD Facility: [facility] Start: 05-20-2023 End: 05-20-2023 ambulatory Dm Cyr MD Facility: [facility] Start: 05-10-2023 End: 05-10-2023 ambulatory Bogdan Green Other [facility] Other Start: 05-10-2023 Office outpatient vi sit 15 minutes Bogdan Ball [facility] Start: 05-01-2023 End: 05-01-2023 ambulatory Bogdan Ball Other [facility] Other Start: 05-01-2023 Patient encounter procedure Bogdan Ball [facility] Start: 04-24-2023 End: 04-24-2023 ambulatory Bogdan Ball Other [facility] Other Start: 04-24-2023 Telephone encounter Bogdan Ball [facility] Start: 02-25-2023 End: 02-25-2023 ambulatory Bogdan Ball Other [facility] Other Start: 02-25-2023 Telephone encounter Bogdan Ball [facility] Start: 12-27-2022 End: 12-27-2022 ambulatory Bogdan Ball Other [facility] Other Start: 12-27-2022 Telephone encounter Bogdan Ball [facility] Start: 12-26-2022 End: 12-26-2022 ambulatory Bogdan Ball Other [facility] Other Start: 12-26-2022 Office outpatient vi sit 25 minutes Bogdan Ball [facility] Start: 11-19-2022 End: 11-19-2022 ambulatory Bogdan Ball Other [facility] Other Start: 11-19-2022 Telephone encounter Bogdan Ball [facility] Start: 11-09-2022 End: 11-09-2022 Patient encounter procedure Hola GARCIA [facility] Start: 10-22-2022 End: 10-22-2022 ambulatory Bogdan Green Other [facility] Other Start: 10-22-2022 Telephone encounter Bogdan Ball [facility] Start: 10-18-2022 End: 10-18-2022 ambulatory Bogdan Ball Other [facility] Other Start: 10-18-2022 Telephone encounter Bogdan Ball [facility] Start: 10-05-2022 End: 10-05-2022 ambulatory Bogdan Ball Other [facility] Other Start: 10-05-2022 Office outpatient vi sit 15 minutes Bogdan Ball [facility] Start: 09-27-2022 End: 09-27-2022 ambulatory Bogdan Green Other [facility] Other Start: 09-27-2022 Telephone encounter Bogdan Ball [facility] Start: 09-25-2022 End: 09-25-2022 ambulatory Bogdan Green Other [facility] Other Start: 09-25-2022 Telephone encounter Bogdan Ball [facility] Start: 09-21-2022 End: 09-21-2022 ambulatory Bogdan Ball Other [facility] Other Start: 09-21-2022 Telephone encounter Bogdan Ball [facility] Start: 08-23-2022 End: 08-23-2022 ambulatory Bogdan Ball Other [facility] Other Start: 08-23-2022 Office outpatient vi sit 25 minutes Bogdan Ball [facility] Start: 08-17-2022 End: 08-18-[address] BOGDAN GREEN Facility: Start: 08-14-2022 End: 08-14-2022 ambulatory Bogdan Ball Other [facility] Other Start: 08-14-2022 Telephone encounter Bogdan [facility] Start: 07-01-2022 End: 07-01-[address] BOGDAN GREEN Facility:[facility] Start: 04-25-2022 Adult health examination Bogdan Green Other [facility] Other Start: 04-18-2022 End: 04-19-[address] BOGDAN GREEN Facility:[facility] Start: 01-20-2022 End: 01-21-2022 ambulatory NONE LISTED REQUEST Facility:[facility] Start: 10-06-2021 End: 10-06-2021 Patient encounter procedure Hola GARCIA [facility] Start: 09-16-2021 End: 09-17-[address] HOLA GARCIA . Facility:[facility] Start: 09-15-2021 End: 09-16-2021 ambulatory NONE LISTED REQUEST Facility:[facility] Start: 08-29-[address] BOGDAN GREEN Facili ty:[facility] Procedures Date Procedure Procedure Detail Performing Clinician Start: 09-16-[address] [place]ISANO [place] Comment on above: Performed By: #### B MP, LIPID, ALT, URIC #### [facility] [address] [place] [address] Dr. Jorge L Carey Start: 03-29-2017 General [...] Care Activity Detail Author US Heart Transthoracic [facility] XR Chest [address] [facility] Immunizations Immunization Date Immunization Notes Care Provider Cinthia bartlett 04-29-2023 zoster vaccine recombinant Bogdan Green Other [facility] 04-26-2023 influenza virus vaccine, unspecified formulation [facility] 04-26-2023 influenza, high dose seasonal, preservative-free Bogdan Green Other [facility] Other 02-26-2023 zoster vaccine recombinant Bogdan Green Other [facility] 04-25-2022 pneumococcal 20-alber nt conjugate vaccine Hola GARCIA [facility] 04-16-2022 influenza virus vaccine, split virus (incl. purified surface antigen) Bogdan Green Other [facility] 04-16-2022 influenza virus vaccine, unspecified formulation Hola GARCIA [facility] 03-23-2022 SARS-CoV-2 (COVID-19 ) [id number] Hola GARCIA [facility] 05-08-2021 SARS-CoV-2 (COVID-19 ) mRNA BNT-162b2 vax Hola GARCIA [facility] 04-22-2021 influenza virus vaccine, split virus (incl. purified surface antigen) Bogdan Green Other [facility] 04-22-2021 influenza virus vaccine, unspecified formulation Hola GARCIA [facility] 03-30-2021 influenza virus vaccine, unspecified formulation Hola GARCIA [facility] 09-16-2020 COVID-19, mRNA, LNP- S, PF, 30 mcg/0.3 mL dose; 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: [Pfizer-BioNTech COVID-19 Vaccine] Hola GARCIA [facility] Comment on above: Reason for Medicatio n: Prophylaxis 08-26-2020 COVID-19, mRNA, LNP- S, PF, 30 mcg/0.3 mL dose; 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: [Pfizer-BioNTech COVID-19 Vaccine] Hola GARCIA [facility] Comment on above: Reason for Medicatio n: Prophylaxis 04-16-2020 influenza virus vaccine, split virus (incl. purified surface antigen) Bogdan Green Other [facility] Other 04-16-2020 influenza virus vaccine, unspecified formulation Hola GARCIA [facility] pneumococcal Conjuga te, unspecified formulation; 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: [Need for prophylactic vaccination against Streptococcus pneumoniae (pneumococcus)] Bogdan Green Other [facility] Other Payers Date Payer Category Payer Medicare 2022 Unknown 2021 Medicare [id number] 2020 Unknown [id number] 1959 Medicare [id number] 1959 Self-pay [id number] 1959 Unknown [id number] 1959 Unknown [id number] 1956 Unknown [id number] 2.16.84 0.1.694154.3.579.2.593 1956 Unknown [id number] 2.16.84 0.1.439089.3.579.2.593 1956 Unknown [id number] 2.16.84 0.1.501988.3.579.2.593 1956 Unknown [id number] 2.16.84 0.1.531775.3.579.2.593 1956 Unknown [id number] 2.16.84 0.1.424179.3.579.2.593 1956 Unknown [id number] 2.16.8 40.1.847214.3.579.2.727 1956 Unknown [id number] 2.16. 840.1.751048.3.579.2.196 1956 Unknown [id number] 2.16. 840.1.777946.3.579.2.196 1956 Unknown [id number] 2.16. 840.1.214070.3.579.2.196 1956 Unknown [id number] 2.16. 840.1.069340.3.579.2.196 1956 Unknown [id number] 2.16. 840.1.285138.3.579.2.196 1956 Unknown [id number] 2.16. 840.1.859171.3.579.2.196 Blue Cross Blue Shield [id number] [id number] Self-pay Self Pay [id number] Unknown [id number] 2.16.84 0.1.829244.3.579.2.593 Unknown [id number] 2.16.84 0.1.160749.3.579.2.593 Social History Date Type Detail Facility Start: 10-06-2021 End: 07-27-2023 Tobacco smoking status Never smoked tobacco (finding) [facility] Sex Assigned At Male [facility] Tobacco smoking status Never [facility] Start: 1955 Sex Assigned At Male F [...] 11-09-2022 Functional Status N/A [facility] Clinical Notes 10-06-2021 to 07-29-2023 Note Date & Type Note Facility 07-29-2023 Evaluation note Encounter Date Diagnosis Assessment Notes Jul, Type 2 diabetes mellitus with hyperglycemia , without long-term current use of insulin (ICD-10 - E11.65) [facility] Other 01-22-2024 Evaluation note* Encounter Date Diagnosis [...] index [BMI] 32.0-32.9, adult (ICD-10 - Z68.32) [facility] Other 11-24-2023 Evaluation note* Encounter Date Diagnosis [...] Microalbumin, Dilated eye exam and Foot exam [facility] Other 11-15-2023 Evaluation note* Encounter Date Diagnosis [...] flares Sep, Thrombocytopenia, unspecified (ICD-10 - D69.6) [facility] Other 11-15-2023 Evaluation note* Encounter Date Diagnosis [...] flares Sep, Thrombocytopenia, unspecified (ICD-10 - D69.6) [facility] Other 11-08-2023 Evaluation note* Encounter Date Diagnosis Assessment Notes Treatment Notes Treatment Clinical Notes Apr, Screening PSA (prostate specific antigen) (ICD-10 - Z12.5) Apr, Type 2 diabetes mellitus with hyperglycemia, without long-term current use of insulin (ICD-10 - E11.65) Apr, Elevated cholesterol (ICD-10 - E78.00) Apr, Primary hypertension (ICD-10 - I10) Sep, Thrombocytopenia, unspecified (ICD-10 - D69.6) Thrombocytopenia [facility] Other 07-12-2023 Evaluation note* Encounter Date Diagnosis [...] [BMI] 31.0-31.9, adult (ICD-10 - Z68.31) 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 Where to find more information [employer]: www.cancer.org [employer]: www.auanet.org Contact a health care [...] provider. Document Revised: 11/27/2021 Document Reviewed: 11/27/2021 [place] Patient Education 2022 [place]. Follow Up Care 10/06/2021 08:40:21 With:JOSE MCMANUS, Hola Rushing, URL Address: [facility] [address], [place] [address]- When: Unknown [facility] 05-08-2023 Evaluation note* Encounter Date Diagnosis Assessment Notes Treatment Notes Treatment Clinical Notes October, Primary hypertension (ICD-10 - I10) [facility] Other 05-04-2023 Evaluation note* Encounter Date Diagnosis Assessment Notes Treatment Notes Treatment Clinical Notes October, Primary hypertension (ICD-10 - I10) [facility] Other 04-21-2023 Evaluation note* Encounter Date Diagnosis [...] and Glimepiride appear to be controlling BS. 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) [facility] Other 04-11-2023 Evaluation note* Encounter Date Diagnosis Assessment Notes Treatment Notes Treatment Clinical Notes Sep, Type 2 diabetes mellitus with hyperglycemia, without long-term current use of insulin (ICD-10 - E11.65) [facility] Other 04-07-2023 Evaluation note* Encounter Date Diagnosis Assessment Notes Treatment Notes Treatment Clinical Notes Sep, Type 2 diabetes mellitus with hyperglycemia (ICD-10 - E11.65) [facility] Other 03-09-2023 Evaluation note* Encounter Date Diagnosis [...] Reviewed red flag symptoms and nerve impingement [facility] Other 02-28-2023 Evaluation note* Encounter Date Diagnosis Assessment Notes Treatment Notes Treatment Clinical Notes Jul, Type 2 diabetes mellitus with hyperglycemia, without long-term current use of insulin (ICD-10 - E11.65) [facility] Other 04-22-2022 Hospital Discharge instructions Patient Education [...] urethra. Follow these instructions at home: Take jqkl-njc-rpyaley and prescription medicines only as told by [...] 06/03/2006 Document Revised: 04/28/2019 Document Reviewed: 07/08/2017 [employer] Patient Education 2020 [place]. Follow Up Care 10/03/2020 15:00:49 With:JOSE MCMANUS, Hola Rushing, ATTILAL Address: [facility] [address] , [place] [address]- [phone] When:10/06/2022 [facility] evaluation + Plan note Future Appointments Appointment Date:10/12/2022 08:00:00 AM Scheduled Provider:Hola GARCIA MD Location:[facility] Appointment Type:URO Office Visit Diagnostic Tests Pending * PSA Total 10/06/21 [facility] evaluation + Plan note Future Appointments Appointment Date:11/18/2023 08:45:00 AM Scheduled Provider:Hola GARCIA MD Location:[facility] Appointment Type:URO Office Visit Diagnostic Tests Pending * PSA Free & Total 11/09/22 [facility] evaluation noteNort [facility] Other evaluation noteNo InformationWassaic re[facility]play.it Other Evaluation note* Diagnosis Onset Date Resolution Status Elevated cholesterol acute Gastroesophageal reflux dise ase with esophagitis without hemorrhage acute Obesity acute Primary hypertension acute Spondylosis without myelopat hy or radiculopathy, lumbar region acute Type 2 diabetes mellitus with hyperglycemia acute [facility] Work Phone: Evaluation note* Diagnosis Onset Date Resolution Status Elevated cholesterol acute Gastroesophageal reflux dise ase with esophagitis without hemorrhage acute Primary hypertension acute Spondylosis without myelopat hy or radiculopathy, lumbar region acute Type 2 diabetes mellitus with hyperglycemia acute [facility] Work Phone: Hisficr general Narrative - Reported* Type Description Date [...] CYSTOSCOPY 2016 Hospitalization History SEE SURGICAL HX [facility] Other [place] [facility] Other [facility] general Narrative - Reported* Type Description Date [...] CYSTOSCOPY 2016 Hospitalization History SEE SURGICAL HX [facility] Other Hospital course Narrative No data available for this section [facility] progress note No data available for this section [facility] Summary Purpose Family History No Family History Records Found Relationship Condition Age at Onset Recorded Date/T marbella father Heart disease Unknown Hypertension Unknown Diabetes mellitus Unknown Unknown Not Specified Unknown Relationship Condition Age at Onset Recorded Date/T marbella father Heart disease Unknown Hypertension Unknown Diabetes mellitus Unknown Unknown mother Unknown Advance Directives No Advanced Directives Records Found Advance Directive Response Recorded Date/ Time Advance Directives No July 06, 2023 1:00pm Reason for Referral Reason *FU 05/16 Mr. Christianson er is being referred for chronic low back pain. Diagnosis 1 Medicare annual well ness visit, initial (Z00.00) Referral Organization [facility] jono Referring Provider First Name Bogdan Referring Provider Last Name Peter Referring Provider Specialty Internal Me dicine Referred Organization [facility] Referred Provider Swapnil French Referred Address [address], [place],[address] Referred Provider Specialty Pain Medicin e Referral [...] Notes Include XR lumbar sp ine f: [id number] Chief Complaint and Reason for Visit Chief [...] content) DATE CREATED AUTHOR 07/30/2021 [facility] DATE CREATED AUTHOR AUTHOR'S ORGANIZ ATION 08/22/2022 [facility] DATE CREATED AUTHOR AUTHOR'S ORGANIZ ATION 11/14/2023 [facility] DATE CREATED AUTHOR AUTHOR'S ORGANIZ ATION 04/25/2024 [facility] REASON FOR VISIT (unrecogniz ed section and content) BS readingsElevated blood cifuentes [id number] [facility]Lab ResultsBP readingsrefillelevated BPMedication4 MONTH FOLLOW UP Patient Care team informatio n (unrecognized section and content) Team Status: Active Member Role Status Dates Bogdna Green DO Primary Care Provider Active Team Status: Active [...] PRIMARY CLINICAL RECORDS. [facility] [employer] provides no warranty or guarantee of the accuracy or completeness of information in this document.
[2024-05-04 10:09] VITALS: BP 123/82; PULSE 109; TEMP 36.3; O2SAT 98
[2024-05-04 10:11] LABS: Glucometer 187 mg/dL (74-106)
[2024-05-04] MEDS: 0.9 % SODIUM CHLORIDE 10 ML SYRINGE - SALINE FLUSH INJ (11:12)
[2024-05-04] MEDS: BUPIVACAINE HCL 0.25% PF 25 MG/10 ML VIAL 4 ML INJ (11:13)
[2024-05-04] MEDS: IOHEXOL 240 MG/ML - 10 ML VIAL INJ (11:13)
[2024-05-04] MEDS: LIDOCAINE HCL 2% 400 MG/20 ML MDV 3 ML INJ (11:13)
[2024-05-04] MEDS: TRIAMCINOLONE ACETONIDE 40 MG/ML VIAL 80 MG INJ (11:14)
--- NOTE | 2024-05-04 11:14 | W.PM.PROCNOT ---
Date of procedure: 05/04/24 Pre-op diagnosis: Pain due to lumbar stenosis with neurogenic claudication Post-op diagnosis: same as pre-op Procedure: Procedure: Bilateral L5-S1 transforaminal epidural steroid injection Medications: Bupivacaine 0.25% 2cc, lidocaine 2% 1cc, kenalog 80mg The patient was seen and examined in the preoperative holding area.? Informed consent was obtained and placed on the chart.? Patient was brought to the medical procedure unit and placed in the prone position where a timeout was completed verifying the correct patient, procedure site, position, and planned special equipment using sterile aseptic technique.? Under direct fluoroscopic visualization a 25-gauge Quincke tipped spinal needle was advanced at level left L5-S1 to the designated neural foramen where contrast dye was injected to show adequate spread.? There was no evidence of vascular or adverse uptake.? Epidural spread was appreciated.? The above-mentioned injectate was then placed in a 1.5 mL aliquot preceded by negative aspiration.? The needle was removed. The same procedure, at the same level, was completed on the opposite side. ? Patient was taken to the postprocedural recovery area and monitored for an appropriate length of time before found suitable for discharge in the accompaniment of a responsible adult. Anesthesia: Local Surgeon: Dm Cyr Pathology: none sent Condition: stable Disposition: no change
[2024-05-04 11:15] VITALS: BP 131/71; BP 132/82; PULSE 80; PULSE 97; O2SAT 96; O2SAT 97
== END 2024-05-04 11:25 | disposition home or self-care (01) ==
LOC: SURGOUT 09:31
PROVIDERS: PCP Internal Medicine; Visit Provider Anesthesiology
DX: M48.062 Spinal stenosis, lumbar region with neurogenic claudication (principal); E11.9 Type 2 diabetes mellitus without complications
CPT/HCPCS: 36415; 64483; 82948; J0665; J3301; Q9966

== ENCOUNTER 2024-05-11 06:34 | Outpatient (OUT) | payer MEDICARE, BC, SELFPAY ==
--- OUTSIDE RECORDS SUMMARY | 2024-05-11 06:36 | XMS_ITS | CCD ---
Author Organization [facility] Care Team Providers Care Haulpak Driver Name Role Phone BOGDAN GREEN Primary Care Physician [phone] DR BOGDAN GREEN Primary Care Unavailable FRANCISCA [...] Peter, Bogdan Unavailable Hola GARCIA Attending Unavailable Giedraitis , Dm Santos Attending Unavailable Giedraitis , Taus Tom Attending Unavailable Gishai MCMANUS, Andrius Tom Attending Unavailable Giwilitis , Andrius Tom Attending Unavailable Gishai MCMANUS, Andrius Vytjovany Attending Unavailable Gishai MCMANUS, Andrius Vytjovany Attending Unavailable Gishai MCMANUS, Andkathy Santos Attending Unavailable Allergies Allergy Classification Reported Allergen(s) Allergy Type Date of Onset Reaction(s) Facility (2 sources) patient allergy list reviewed by nurse or physicia Propensity to adverse reactions Comment:Done [employer] Other (1 source) No Known Medication Allergies; 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: [No Known Medication Allergies] Propensity to adverse reactions (disorder) [facility] Repository Medications Current Medications Medication Drug [...] injector Discontinued 1.5 MG SUBCUT every week October 28, 2023 5:39pm December 03, 2023 [...] Ordered Start: 10-06-2021 take 1 tablet by [facility] once daily finasteride 5 mg Tab 5 [...] bid for 5 days Apr, Active [facility] 5/16 (15 sources) Start: 09-27-2022 Start: 09-27-2022 [facility] / 16 Use to inject insulin qd SC [...] acid 4700 mg / polyethylene glycol 3350 165155 mg / potassium chloride 1015 mg / [...] 05-09-2015 Chronic Other aftercare (1 source) Other [facility] (current) drug therapy; 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: [OTH NEWS CONTENT SPECIALIST CURRENT DRUG THERAPY] Onset: 07-03-2022 Episodic Other aftercare (1 source) [facility] (current) use of oral hypoglycemic drugs; 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: [NEWS CONTENT SPECIALIST USE ORAL HYPOGLYCEMIC DX] Onset: 07-03-2022 Episodic Other aftercare (15 sources) Long-term current use of insulin; 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: [manager 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] Episodic Other aftercare (2 sources) manager 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 Episodic Other aftercare (2 sources) Long-term current use of drug therapy; 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: [Other long term care phlebotomist (current) drug therapy] Episodic Other and unspecified [...] from glycated hemoglobin (Bld) [Mass/Vol] 169 mg/dL [facility] 02-11-2024 HbA1c (Bld) [Mass fraction] 7.5 % High 4.5-6.2 [facility] Comment on above: ADA RECOMMENDED LIMI T 4.0 - 6.0ADA THERAPEUTIC TARGET < 7.0ACTION SUGGESTED> 7.0 Glucose mean value [Mass/vol ume] in Blood Estimated from glycated hemoglobinon 10-12-2023 Average glucose Estimated from glycated hemoglobin (Bld) [Mass/Vol] 180 mg/dL [facility] Cell [facility] 10-12-2023 HbA1c (Bld) [Mass fraction] 7.9 % 4.5-6.2 [facility] Comment on above: ADA RECOMMENDED LIMI T 4.0 - 6.0ADA THERAPEUTIC TARGET < 7.0ACTION SUGGESTED> 7.0 GLYCOHEMOGLOBIN A1Con 2022 ADA RECOMMENDATION SEE BELOW Normal [facility] Comment on above: Result Comment: ADA RECOMMENDED LIMIT 4.0 - 6.0 ADA THERAPEUTIC TARGET < 7.0 ACTION SUGGESTED > 7.0 Performed By: #### B MP, LIPID, ALT, URIC #### [facility] [address] [place] [address] Dr. Jorge L Carey Glucose [Mass/Vol] 148 mg/dL Normal [facility] Comment on above: Performed By: #### B MP, LIPID, ALT, URIC #### [facility] [address] [address] [address] Jorge L Carey HbA1c (Bld) [Mass fraction] 6.8 % Critically high 4.5-6.2 [facility] Comment on above: Performed By: #### B MP, LIPID, ALT, URIC #### [facility] [address] [address] [address] Jorge L Carey CARDIAC DANAY ADMITon 023 CK [Catalytic activity/Vol] 59 U/L Normal 39-308 [facility] Comment on above: Performed By: #### C MP, CMADM #### [facility] [address] [address] [address] Jorge L Carey CK.MB [Mass/Vol] 0.99 ng/mL Normal <=3.60 [facility] Comment on above: Performed By: #### C MP, CMADM #### [facility] [address] [place] [address] Dr. Jorge L Carey HSTROP 10.0 pg/mL Normal 4.0-76.1 [facility] Comment on above: Result Comment: CUT- OFF POINTS HAVE BEEN ESTABLISHED BASED ON THE FOURTH UNIVERSAL DEFINITIONS OF MYOCARDIAL INFARCTION. THE UPPER REFERENCE LIMIT (URL) OF TROPONIN, DEFINED THE 99TH PERCENTILE OF cTnI DISTRIBUTION IN A REFERENCE POPULATION, HAS BEEN CONFIRMED THE DECISION THRESHOLD FOR SD DIAGNOSIS. Performed By: #### C MP, CMADM #### [facility] [address] [place] [address] Dr. Jorge L Carey GARLAND 52 ng/mL Normal 16-96 [facility] Comment on above: Performed By: #### C MP, CMADM #### [facility] [address] [place] [address] Dr. Jorge L Carey CBC AUTO DIFFon 07-01-2022 BASO # 0.0 103/ul Normal 0.0-0.1 [facility] Comment on above: Performed By: #### B MP, LIPID, ALT, URIC #### [facility] [address] [place] [address] Dr. Jorge L Carey Basophils/100 WBC (Bld) 0.3 % Normal 0.2-2.0 [facility] Comment on above: Performed By: #### B MP, LIPID, ALT, URIC #### [facility] [address] [place] [address] Dr. Jorge L Carey EO # 0.1 103/ul Normal 0.0-0.7 [facility] Comment on above: Performed By: #### B MP, LIPID, ALT, URIC #### [facility] [address] [place] [address] Dr. Jorge L Carey Eosinophils/100 WBC (Bld) 0.9 % Normal 0.9-7.0 [facility] Comment on above: Performed By: #### B MP, LIPID, ALT, URIC #### [facility] [address] [place] [address] Dr. Jorge L Carey Erythrocyte distribution width (RBC) [Ratio] 11.7 % Normal 11.0-15.0 [facility] Comment on above: Performed By: #### B MP, LIPID, ALT, URIC #### [facility] [address] [place] [address] Dr. Jorge L Carey Hematocrit (Bld) [Volume fraction] 41.1 % Critically low 42.0-54.0 [facility] Comment on above: Performed By: #### B MP, LIPID, ALT, URIC #### [facility] [address] [place] [address] Dr. Jorge L Carey Hemoglobin (Bld) [Mass/Vol] 14.5 g/dL Normal 14.0-18.0 [facility] Comment on above: Performed By: #### B MP, LIPID, ALT, URIC #### [facility] [address] [place] [address] Dr. Jorge L Carey IG # 0.02 10e3/ul Normal 0.00-0.03 [facility] Comment on above: Performed By: #### B MP, LIPID, ALT, URIC #### [facility] [address] [place] [address] Dr. Jorge L Carey IG % 0.3 % Normal 0.0-0.5 [facility] Comment on above: Performed By: #### B MP, LIPID, ALT, URIC #### [facility] [address] [place] [address] Dr. Jorge L Carey LYMPH # 1.1 103/ul Critically low 1.2-3.8 [facility] Comment on above: Performed By: #### B MP, LIPID, ALT, URIC #### [facility] [address] [place] [address] Dr. Jorge L Carey Lymphocytes/100 WBC (Bld) 16.6 % Critically low 20.5-60.0 [facility] Comment on above: Performed By: #### B MP, LIPID, ALT, URIC #### [facility] [address] [place] [address] Dr. Jorge L Carey MANUAL DIFF REQ NO Normal [facility] Comment on above: Performed By: #### B MP, LIPID, ALT, URIC #### [facility] [address] [place] [address] Dr. Jorge L Carey MCH (RBC) [Entitic mass] 30.1 pg Normal 25.9-34.0 [facility] Comment on above: Performed By: #### B MP, LIPID, ALT, URIC #### [facility] [address] [place] [address] Dr. Jorge L Carey MCHC (RBC) [Mass/Vol] 35.3 g/dL Critically high 29.9-35.2 [facility] Comment on above: Performed By: #### B MP, LIPID, ALT, URIC #### [facility] [address] [place] [address] Dr. Jorge L Carey MCV (RBC) [Entitic vol] 85.4 fL Normal 80.0-94.0 [facility] Comment on above: Performed By: #### B MP, LIPID, ALT, URIC #### [facility] [address] [place] [address] Dr. Jorge L Carey MONO # 0.4 103/ul Normal 0.3-0.8 [facility] Comment on above: Performed By: #### B MP, LIPID, ALT, URIC #### [facility] [address] [place] [address] Dr. Jorge L Carey Monocytes/100 WBC (Bld) 5.1 % Normal 1.7-12.0 [facility] Comment on above: Performed By: #### B MP, LIPID, ALT, URIC #### [facility] [address] [place] [address] Dr. Jorge L Carey NEUT # 5.3 103/ul Normal 1.4-6.5 [facility] Comment on above: Performed By: #### B MP, LIPID, ALT, URIC #### [facility] [address] [place] [address] Dr. Jorge L Carey Neutrophils/100 WBC (Bld) 76.8 % Critically high 43.0-75.0 [facility] Comment on above: Performed By: #### B MP, LIPID, ALT, URIC #### [facility] [address] [place] [address] Dr. Jorge L Carey Platelet mean volume (Bld) [Entitic vol] 12.1 fL Normal 9.5-13.5 [facility] Comment on above: Performed By: #### B MP, LIPID, ALT, URIC #### [facility] [address] [place] [address] Dr. Jorge L Carey PLT 147 103/ul Critically low 150-450 [facility] Comment on above: Performed By: #### B MP, LIPID, ALT, URIC #### [facility] [address] [address] [address] Jorge L Carey RBC 4.81 106/ul Normal 4.70-6.10 [facility] Comment on above: Performed By: #### B MP, LIPID, ALT, URIC #### [facility] [address] [address] [address] Jorge L Carey WBC 6.9 103/ul Normal 4.0-11.0 [facility] Comment on above: Performed By: #### B MP, LIPID, ALT, URIC #### [facility] [address] [address] [address] Jorge L Carey [address] HEAD WO [...] MALENA LÓPEZ Date: 2022-07-01 20:24 Normal [facility] Covid-19 PCR (CVDTB)on 06-17 SARS-CoV-2 (COVID-19) RNA EDVIN+probe Ql (Unsp spec) Not detected Normal NOT DETECTED [facility] Comment on above: Result Comment: [...] for this test is supported by the [employer] of Health and Human Service's declaration that [...] used). Performed By: #### C VDTBH #### [facility] [address] [place] [address] Dr. Jorge L Carey D-DIMERon 07-01-2022 D-DIMER 0.21 mg/L FEU Normal <=0.59 [facility] Comment on above: Performed By: #### B MP, LIPID, ALT, URIC #### [facility] [address] [place] [address] Dr. Jorge L Carey D-DIMER COMMENTS SEE BELOW Normal [facility] Comment on above: Result Comment: [...] #### B MP, LIPID, ALT, URIC #### [facility] [address] [place] [address] Dr. Jorge L Carey ER URINE PROFILEon Bilirubin Ql (U) Negative Normal NEGATIVE [facility] Comment on above: Performed By: #### B MP, LIPID, ALT, URIC #### [facility] [address] [address] [address] Jorge L Carey Clarity (U) CLEAR Normal CLEAR [facility] Comment on above: Performed By: #### B MP, LIPID, ALT, URIC #### [facility] [address] [address] [address] Jorge L Carey Color (U) LT. YELLOW Normal YELLOW [facility] Comment on above: Performed By: #### B MP, LIPID, ALT, URIC #### [facility] [address] [address] [address] Jorge L Carey ERUAHJacy A micrscopic examination will be performed if indicated. Normal [facility] Comment on above: Performed By: #### B MP, LIPID, ALT, URIC #### [facility] [address] [place] [address] Dr. Jorge L Carey Glucose Ql (U) Negative Normal NEGATIVE [facility] Comment on above: Performed By: #### B MP, LIPID, ALT, URIC #### [facility] [address] [place] [address] Dr. Jorge L Carey Hemoglobin Ql (U) Negative Normal NEGATIVE [facility] Comment on above: Performed By: #### B MP, LIPID, ALT, URIC #### [facility] [address] [address] [address] Jorge L Carey Ketones Ql (U) Negative Normal NEGATIVE [facility] Comment on above: Performed By: #### B MP, LIPID, ALT, URIC #### [facility] [address] [place] [address] Dr. Jorge L Carey LEUKOCYTES Negative Normal NEGATIVE [facility] Comment on above: Performed By: #### B MP, LIPID, ALT, URIC #### [facility] [address] [address] [address] Jorge L Carey Nitrite Ql (U) Negative Normal NEGATIVE [facility] Comment on above: Performed By: #### B MP, LIPID, ALT, URIC #### [facility] [address] [place] [address] Dr. Jorge L Carey pH (U) 6.0 [pH] Normal 5-9 [facility] Comment on above: Performed By: #### B MP, LIPID, ALT, URIC #### [facility] [address] [place] [address] Dr. Jorge L Carey SPEC GRAVITY 1.020 Normal 1.005-<=1.025 [facility] Comment on above: Performed By: #### B MP, LIPID, ALT, URIC #### [facility] [address] [place] [address] Dr. Jorge L Carey UA PROTEIN Negative Normal NEGATIVE/ TRACE [facility] Comment on above: Performed By: #### B MP, LIPID, ALT, URIC #### [facility] [address] [place] [address] Dr. Jorge L Carey UR MICRO IND NOT INDICATED Normal [facility] Comment on above: Performed By: #### B MP, LIPID, ALT, URIC #### [facility] [address] [place] [address] Dr. Jorge L Carey Urobilinogen Qn (U) 1.0 {Ila'U}/dL Normal 0.2 - 1. 0 [facility] Comment on above: Performed By: #### B MP, LIPID, ALT, URIC #### [facility] [address] [place] [address] Dr. Jorge L Carey INFLUENZA A AND B [facility] 07-01 [facility] SEE BELOW Normal [facility] Comment on above: Result Comment: Nega tive for Flu A protein angiten. Infection due to Flu A cannot be ruled out. Flu A angiten in the sample may be below the detection limit of the test. Performed By: #### I NFLUAB #### [facility] [address] [place] [address] Dr. Jorge L [facility] Normal [facility] Comment on above: Result Comment: Nega tive for Flu B protein antigen. Infection due to Flu B cannot be ruled out. Flu B antigen in the sample may be below the detection limit of the test. Performed By: #### I NFLUAB #### [facility] [address] [place] [address] Dr. Jorge L Carey INFLUENZA A AG Negative Normal NEGATIVE SEE COMMENT [facility] Comment on above: Performed By: #### I NFLUAB #### [facility] [address] [place] [address] Dr. Jorge L Carey INFLUENZA B AG Negative Normal NEGATIVE SEE COMMENT [facility] Comment on above: Performed By: #### I NFLUAB #### [facility] [address] [place] [address] Dr. Jorge L Carey POINT OF CARE GLUCOSEon 06-17 Glucose [Mass/Vol] 130 mg/dL Critically high 74-106 [facility] Comment on above: Performed By: #### B MP, LIPID, ALT, URIC #### [facility] [address] [place] [address] Dr. Jorge L Carey PROF 14(COMP METB)on 023 Albumin [Mass/Vol] 3.7 g/dL Normal 3.4-5.0 [facility] Comment on above: Performed By: #### C IGGY, CMADM #### [facility] [address] [place] [address] Dr. Jorge L Carey Albumin/Globulin [Mass ratio] 1.2 {ratio} Normal [facility] Comment on above: Performed By: #### C IGGY, CMADM #### [facility] [address] [place] [address] Dr. Jorge L Carey ALP [Catalytic activity/Vol] 49 U/L Normal 46-116 [facility] Comment on above: Performed By: #### C MP, CMADM #### [facility] [address] [place] [address] Dr. Jorge L Carey ALT [Catalytic activity/Vol] 30 U/L Normal 16-63 [facility] Comment on above: Performed By: #### C IGGY, CMADM #### [facility] [address] [place] [address] Dr. Jorge L Carey Anion gap [Moles/Vol] 12.7 mmol/L Normal [facility] Comment on above: Performed By: #### C IGGY, CMADM #### [facility] [address] [address] [address] Jorge L Carey AST [Catalytic activity/Vol] 21 U/L Normal 15-37 [facility] Comment on above: Performed By: #### C MP, CMADM #### [facility] [address] [address] [address] Jorge L Carey Bilirubin [Mass/Vol] 0.5 mg/dL Normal 0.2-1.0 [facility] Comment on above: Performed By: #### C MP, CMADM #### [facility] [address] [address] [address] Jorge L Carey Calcium [Mass/Vol] 8.9 mg/dL Normal 8.5-10.1 [facility] Comment on above: Performed By: #### C MP, CMADM #### [facility] [address] [place] [address] Dr. Jorge L Carey Chloride [Moles/Vol] 100 mmol/L Normal 98-107 [facility] Comment on above: Performed By: #### C MP, CMADM #### [facility] [address] [place] [address] Dr. Jorge L Carey CO2 [Moles/Vol] 29.0 mmol/L Normal 21.0-32.0 [facility] Comment on above: Performed By: #### C MP, CMADM #### [facility] [address] [place] [address] Dr. Jorge L Carey Creatinine [Mass/Vol] 1.04 mg/dL Normal 0.70-1.30 [facility] Comment on above: Performed By: #### C MP, CMADM #### [facility] [address] [place] [address] Dr. Jorge L Carey EGFR-AF SRI LANKAN >60 Normal >=60 [facility] Comment on above: Performed By: #### C MP, CMADM #### [facility] [address] [address] [address] Jorge L Carey EGFR-NON AF SRI LANKAN >60 Normal >=60 [facility] Comment on above: Performed By: #### C IGGY, CMADM #### [facility] [address] [address] [address] Jorge L Carey Globulin (S) [Mass/Vol] 3.1 g/dL Normal [facility] Comment on above: Performed By: #### C MP, CMADM #### [facility] [address] [address] [address] Jorge L Carey Glucose [Mass/Vol] 140 mg/dL Critically high 74-106 [facility] Comment on above: Performed By: #### C MP, CMADM #### [facility] [address] [address] [address] Jorge L Carey Potassium [Moles/Vol] 3.7 mmol/L Normal 3.5-5.1 [facility] Comment on above: Performed By: #### C IGGY, CMADM #### [facility] [address] [place] [address] Dr. Jorge L Carey Protein [Mass/Vol] 6.8 g/dL Normal 6.4-8.2 [facility] Comment on above: Performed By: #### C IGGY, CMADM #### [facility] [address] [place] [address] Dr. Jorge L Carey Sodium [Moles/Vol] 138 mmol/L Normal 136-145 [facility] Comment on above: Performed By: #### C IGGY, CMADM #### [facility] [address] [place] [address] Dr. Jorge L Carey Urea nitrogen [Mass/Vol] 13.0 mg/dL Normal 7.0-18.0 [facility] Comment on above: Performed By: #### C IGGY, CMADM #### [facility] [address] [place] [address] Dr. Jorge L Carey Urea nitrogen/Creatinine [Mass ratio] 12.5 mg/mg Normal [facility] Comment on above: Performed By: #### C IGGY, CMADM #### [facility] [address] [address] [address] Jorge L Carey TROPONIN, HIGH SENSITIVITYon 07-01-2022 HSTROP 10.9 pg/mL Normal 4.0-76.1 [facility] Comment on above: Result Comment: CUT- OFF POINTS HAVE BEEN ESTABLISHED BASED ON THE FOURTH UNIVERSAL DEFINITIONS OF MYOCARDIAL INFARCTION. THE UPPER REFERENCE LIMIT (URL) OF TROPONIN, DEFINED THE 99TH PERCENTILE OF cTnI DISTRIBUTION IN A REFERENCE POPULATION, HAS BEEN CONFIRMED THE DECISION THRESHOLD FOR SD DIAGNOSIS. Performed By: #### B MP, LIPID, ALT, URIC #### [facility] [address] [place] [address] Dr. Jorge L Carey XR CHEST 1 [...] acute cardiopulmonary abnormality. Electronically authenticated by: FILIPPO MASTRES Date: 2022-07-01 19:57 Normal [facility] CBC AUTO DIFFon 04-18-2022 BASO # 0.0 103/ul Normal 0.0-0.1 [facility] Comment on above: Performed By: #### C BC #### [facility] [address] [place] [address] Dr. Jorge L Carey Basophils/100 WBC (Bld) 0.7 % Normal 0.2-2.0 [facility] Comment on above: Performed By: #### C BC #### [facility] [address] [place] [address] Dr. Jorge L Carey EO # 0.2 103/ul Normal 0.0-0.7 [facility] Comment on above: Performed By: #### C BC #### [facility] [address] [place] [address] Dr. Jorge L Carey Eosinophils/100 WBC (Bld) 2.6 % Normal 0.9-7.0 [facility] Comment on above: Performed By: #### C BC #### [facility] [address] [place] [address] Dr. Jorge L Carey Erythrocyte distribution width (RBC) [Ratio] 11.5 % Normal 11.0-15.0 [facility] Comment on above: Performed By: #### C BC #### [facility] [address] [place] [address] Dr. Jorge L Carey Hematocrit (Bld) [Volume fraction] 44.7 % Normal 42.0-54.0 [facility] Comment on above: Performed By: #### C BC #### [facility] [address] [place] [address] Dr. Jorge L Carey Hemoglobin (Bld) [Mass/Vol] 15.5 g/dL Normal 14.0-18.0 [facility] Comment on above: Performed By: #### C BC #### [facility] [address] [place] [address] Dr. Jorge L Carey IG # 0.01 10e3/ul Normal 0.00-0.03 [facility] Comment on above: Performed By: #### C BC #### [facility] [address] [place] [address] Dr. Jorge L Carey IG % 0.2 % Normal 0.0-0.5 [facility] Comment on above: Performed By: #### C BC #### [facility] [address] [place] [address] Dr. Jorge L Carey LYMPH # 1.3 103/ul Normal 1.2-3.8 [facility] Comment on above: Performed By: #### C BC #### [facility] [address] [place] [address] Dr. Jorge L Carey Lymphocytes/100 WBC (Bld) 21.3 % Normal 20.5-60.0 [facility] Comment on above: Performed By: #### C BC #### [facility] [address] [place] [address] Dr. Jorge L Carey MANUAL DIFF REQ NO Normal [facility] Comment on above: Performed By: #### C BC #### [facility] [address] [place] [address] Dr. Jorge L Carey MCH (RBC) [Entitic mass] 30.1 pg Normal 25.9-34.0 [facility] Comment on above: Performed By: #### C BC #### [facility] [address] [place] [address] Dr. Jorge L Carey MCHC (RBC) [Mass/Vol] 34.7 g/dL Normal 29.9-35.2 [facility] Comment on above: Performed By: #### C BC #### [facility] [address] [place] [address] Dr. Jorge L Carey MCV (RBC) [Entitic vol] 86.8 fL Normal 80.0-94.0 [facility] Comment on above: Performed By: #### C BC #### [facility] [address] [place] [address] Dr. Jorge L Carey MONO # 0.4 103/ul Normal 0.3-0.8 [facility] Comment on above: Performed By: #### C BC #### [facility] [address] [place] [address] Dr. Jorge L Carey Monocytes/100 WBC (Bld) 7.2 % Normal 1.7-12.0 [facility] Comment on above: Performed By: #### C BC #### [facility] [address] [place] [address] Dr. Jorge L Carey NEUT # 4.1 103/ul Normal 1.4-6.5 [facility] Comment on above: Performed By: #### C BC #### [facility] [address] [place] [address] Dr. Jorge L Carey Neutrophils/100 WBC (Bld) 68.0 % Normal 43.0-75.0 [facility] Comment on above: Performed By: #### C BC #### [facility] [address] [place] [address] Dr. Jorge L Carey Platelet mean volume (Bld) [Entitic vol] 12.0 fL Normal 9.5-13.5 [facility] Comment on above: Performed By: #### C BC #### [facility] [address] [place] [address] Dr. Jorge L Carey PLT 163 103/ul Normal 150-450 [facility] Comment on above: Performed By: #### C BC #### [facility] [address] [place] [address] Dr. Jorge L Carey RBC 5.15 106/ul Normal 4.70-6.10 [facility] Comment on above: Performed By: #### C BC #### [facility] [address] [place] [address] Dr. Jorge L Carey WBC 6.1 103/ul Normal 4.0-11.0 [facility] Comment on above: Performed By: #### C BC #### [facility] [address] [place] [address] Dr. Jorge L Carey GLYCOHEMOGLOBIN A1Con 2021 ADA RECOMMENDATION SEE BELOW Normal [facility] Comment on above: Result Comment: ADA RECOMMENDED LIMIT 4.0 - 6.0 ADA THERAPEUTIC TARGET < 7.0 ACTION SUGGESTED > 7.0 Performed By: #### B MP, LIPID, ALT, URIC #### [facility] [address] [place] [address] Dr. Jorge L Carey Glucose [Mass/Vol] 146 mg/dL Normal [facility] Comment on above: Performed By: #### B MP, LIPID, ALT, URIC #### [facility] [address] [place] [address] Dr. Jorge L Carey HbA1c (Bld) [Mass fraction] 6.7 % Critically high 4.5-6.2 [facility] Comment on above: Performed By: #### B MP, LIPID, ALT, URIC #### [facility] [address] [place] [address] Dr. Jorge L Carey LIPID PROFILEon 04-18-2022 CHOL-HDL RATIO NORM SEE BELOW Normal [facility] Comment on above: Result Comment: 3.3 - 4.4 LOW RISK 4.4 - 7.1 AVERAGE RISK 7.1 - 11.0 MODERATE RISK >11.0 HIGH RISK Performed By: #### B MP, LIPID, ALT, URIC #### [facility] [address] [place] [address] Dr. Jorge L Carey Cholesterol [Mass/Vol] 117 mg/dL Normal <=200 [facility] Comment on above: Performed By: #### B MP, LIPID, ALT, URIC #### [facility] [address] [address] [address] Jorge L Carey Cholesterol in HDL [Mass/Vol] 48 mg/dL Normal 40-60 [facility] Comment on above: Performed By: #### B MP, LIPID, ALT, URIC #### [facility] [address] [address] [address] Jorge L Carey Cholesterol in LDL [Mass/Vol] 50.6 mg/dL Normal [facility] Comment on above: Performed By: #### B MP, LIPID, ALT, URIC #### [facility] [address] [address] [address] Jorge L Carey Cholesterol.total/Cho lesterol in HDL [Mass ratio] 2.4 {ratio} Normal [facility] Comment on above: Performed By: #### B MP, LIPID, ALT, URIC #### [facility] [address] [address] [address] Jorge L Carey HDL NORMAL > or = 60 mg/dl - LOW CARDIOVASCULAR RISK <40 mg/dl - HIGH CARDIOVASCULAR RISK Normal [facility] Comment on above: Performed By: #### B MP, LIPID, ALT, URIC #### [facility] [address] [address] [address] Jorge L Carey LDL CALC NORMAL SEE BELOW Normal [facility] Comment on above: Result Comment: <100 mg/dl OPTIMAL 100 - 129 mg/dl NEAR OR ABOVE OPTIMAL 130 - 159 mg/dl BORDERLINE HIGH 160 - 189 mg/dl HIGH >190 mg/dl VERY HIGH Performed By: #### B MP, LIPID, ALT, URIC #### [facility] [address] [address] [address] Jorge L Carey Triglyceride [Mass/Vol] 92 mg/dL Normal <=150 [facility] Comment on above: Performed By: #### B MP, LIPID, ALT, URIC #### [facility] [address] [address] [address] Jorge L Carey VLDL CALC 18.4 mg/dL Normal [facility] Comment on above: Performed By: #### B MP, LIPID, ALT, URIC #### [facility] [address] [address] [address] Jorge L Carey MICROALBUMIN, RAND URon 11-0 mALB <1.3 Normal <=30.0 [facility] Comment on above: Performed By: #### M ALBR #### [facility] [address] [address] [address] Jorge L Carey PROF CHEM 8 (BAS METB)on Anion gap [Moles/Vol] 9.5 mmol/L Normal [facility] Comment on above: Performed By: #### B MP, LIPID, ALT, URIC #### [facility] [address] [address] [address] Jorge L Carey Calcium [Mass/Vol] 8.6 mg/dL Normal 8.5-10.1 [facility] Comment on above: Performed By: #### B MP, LIPID, ALT, URIC #### [facility] [address] [place] [address] Dr. Jorge L Carey Chloride [Moles/Vol] 102 mmol/L Normal 98-107 [facility] Comment on above: Performed By: #### B MP, LIPID, ALT, URIC #### [facility] [address] [address] [address] Jorge L Carey CO2 [Moles/Vol] 30.8 mmol/L Normal 21.0-32.0 [facility] Comment on above: Performed By: #### B MP, LIPID, ALT, URIC #### [facility] [address] [address] [address] Jorge L Carey Creatinine [Mass/Vol] 0.95 mg/dL Normal 0.70-1.30 [facility] Comment on above: Performed By: #### B MP, LIPID, ALT, URIC #### [facility] [address] [address] [address] Jorge L Carey EGFR-AF SRI LANKAN >60 Normal >=60 [facility] Comment on above: Performed By: #### B MP, LIPID, ALT, URIC #### [facility] [address] [address] [address] Jorge L Carey EGFR-NON AF SRI LANKAN >60 Normal >=60 [facility] Comment on above: Performed By: #### B MP, LIPID, ALT, URIC #### [facility] [address] [address] [address] Jorge L Carey Glucose [Mass/Vol] 142 mg/dL Critically high 74-106 [facility] Comment on above: Performed By: #### B MP, LIPID, ALT, URIC #### [facility] [address] [place] [address] Dr. Joreg L Carey Potassium [Moles/Vol] 4.3 mmol/L Normal 3.5-5.1 [facility] Comment on above: Performed By: #### B MP, LIPID, ALT, URIC #### [facility] [address] [place] [address] Dr. Jorge L Carey Sodium [Moles/Vol] 138 mmol/L Normal 136-145 [facility] Comment on above: Performed By: #### B MP, LIPID, ALT, URIC #### [facility] [address] [place] [address] Dr. Jorge L Carey Urea nitrogen [Mass/Vol] 14.0 mg/dL Normal 7.0-18.0 [facility] Comment on above: Performed By: #### B MP, LIPID, ALT, URIC #### [facility] [address] [place] [address] Dr. Jorge L Carey Urea nitrogen/Creatinine [Mass ratio] 14.7 mg/mg Normal [facility] Comment on above: Performed By: #### B MP, LIPID, ALT, URIC #### [facility] [address] [place] [address] Dr. Jorge L Carey [facility] 04-18-2022 ALT [Catalytic activity/Vol] 27 U/L Normal 16-63 [facility] Comment on above: Performed By: #### B MP, LIPID, ALT, URIC #### [facility] [address] [place] [address] Dr. Jorge L Carey URIC ACID SERUMon 04-18-2022 Urate [Mass/Vol] 5.5 mg/dL Normal 3.5-7.2 [facility] Comment on above: Performed By: #### B MP, LIPID, ALT, URIC #### [facility] [address] [address] [address] Jorge L Carey GLYCOHEMOGLOBIN A1Con 2021 ADA RECOMMENDATION SEE BELOW Normal [facility] Comment on above: Result Comment: ADA RECOMMENDED LIMIT 4.0 - 6.0 ADA THERAPEUTIC TARGET < 7.0 ACTION SUGGESTED > 7.0 Performed By: #### B MP, LIPID, ALT, URIC #### [facility] [address] [address] [address] Jorge L Carey Glucose [Mass/Vol] 160 mg/dL Normal [facility] Comment on above: Performed By: #### B MP, LIPID, ALT, URIC #### [facility] [address] [address] [address] Jorge L Carey HbA1c (Bld) [Mass fraction] 7.2 % Critically high 4.5-6.2 [facility] Comment on above: Performed By: #### B MP, LIPID, ALT, URIC #### [facility] [address] [address] [address] Jorge L Carey GLYCOHEMOGLOBIN A1Con 2021 ADA RECOMMENDATION ADA THERAPEUTIC TARGET 6.0 - 7.0 ACTION SUGGESTED > 7.0 Normal [facility] Comment on above: Performed By: #### B MP, LIPID, ALT, URIC #### [facility] [address] [address] [address] Jorge L Carey Glucose [Mass/Vol] 177 mg/dL Normal [facility] Comment on above: Performed By: #### B MP, LIPID, ALT, URIC #### [facility] [address] [address] [address] Jorge L Carey HbA1c (Bld) [Mass fraction] 7.8 % Critically high <=6.0 [facility] Comment on above: Performed By: #### B MP, LIPID, ALT, URIC #### [facility] [address] [address] [address] Jorge L Carey [facility] [employer] 09-17-2020 Glucose [Mass/Vol] 151 mg/dL Normal [facility] Comment on above: Result Comment: PERF ORMED BY: [place] [address] PATHOLOGIST QUILTING MACHINE OPERATOR SUSAN SEXTON M.D. Performed By: #### O MOE GLYCO #### [facility] [address] HbA1c (Bld) [Mass fraction] 6.9 % High 4.3-5.6 [facility] Comment on above: Result Comment: Incr eased risk for diabetes: 5.7 - 6.4 diabetes: >6.4 glycemic control for adults with diabetes: <7.0 Performed By: #### O MOE GLYCO #### [facility] [address] [place] [address] Vital Signs Date Time Vital Sign Value Performing Clinician Facility 02-18-2024 09:37-0400 Body height 190.5 cm [facility] 02-18-2024 09:37-0400 Body mass index (BMI) [Ratio] 32.1 kg/m2 [facility] 02-18-2024 09:37-0400 Body weight 116.74 kg [facility] 02-18-2024 09:37-0400 Diastolic blood pressure 81 mm[Hg] [facility] 02-18-2024 09:37-0400 Heart rate 76 /min [facility] 02-18-2024 09:37-0400 Respiratory rate 12 /min [facility] 02-18-2024 09:37-0400 Systolic blood pressure 136 mm[Hg] [facility] 10-18-2023 09:06-0400 Body height 190.5 cm [facility] 10-18-2023 09:06-0400 Body mass index (BMI) [Ratio] 31.8 kg/m2 [facility] 10-18-2023 09:06-0400 Body weight 115.32 kg [facility] 10-18-2023 09:06-0400 Diastolic blood pressure 77 mm[Hg] [facility] 10-18-2023 09:06-0400 Heart rate 80 /min [facility] 10-18-2023 09:06-0400 Respiratory rate 12 /min [facility] 10-18-2023 09:06-0400 Systolic blood pressure 116 mm[Hg] [facility] 07-08-2023 09:00-0500 Body height 190.5 cm Bogdan Ball Other [employer] Other 07-08-2023 09:00-0500 Body mass index (BMI) [Ratio] 32.62 kg/m2 Bogdan Ball Other [employer] [facility] Other 07-08-2023 09:00-0500 Body weight 118.39 kg Bogdan Ball Other [employer] Other 07-08-2023 09:00-0500 Diastolic blood pressure 81 mm[Hg] Bogdan Ball Other [employer] [facility] Other 07-08-2023 09:00-0500 Respiratory rate 12 /min Bogdan Ball Other [employer] Other 07-08-2023 09:00-0500 Systolic blood pressure 117 mm[Hg] Bogdan Ball Other [employer] [facility] Other 05-01-2023 08:30-0500 Body height 190.5 cm Bogdan Ball Other [employer] Other 05-01-2023 08:30-0500 Body mass index (BMI) [Ratio] 32.19 kg/m2 Bogdan Ball Other [employer] [facility] Other 05-01-2023 08:30-0500 Body weight 116.85 kg Bogdan Ball Other [employer] Other 05-01-2023 08:30-0500 Diastolic blood pressure 81 mm[Hg] Bogdan Ball Other [employer] Other 05-01-2023 08:30-0500 Respiratory rate 12 /min Bogdan Ball Other [employer] [facility] Other 05-01-2023 08:30-0500 Systolic blood pressure 135 mm[Hg] Bogdan Ball Other [employer] [facility] Other 12-26-2022 08:30-0400 Body height 190.5 cm Bogdan Ball Other [employer] [facility] Other 12-26-2022 08:30-0400 Body mass index (BMI) [Ratio] 31.54 kg/m2 Bogdan Ball Other [employer] Other 12-26-2022 08:30-0400 Body weight 114.49 kg Bogdan Ball Other [employer] Other 12-26-2022 08:30-0400 Diastolic blood pressure 85 mm[Hg] Bogdan Ball Other [employer] [facility] Other 12-26-2022 08:30-0400 Respiratory rate 12 /min Bogdan Ball Other [employer] [facility] Other 12-26-2022 08:30-0400 Systolic blood pressure 139 mm[Hg] Bogdan Ball Other [employer] Other 11-09-2022 10:58-0400 Blood Pressure Location Hola GARCIA [facility] 11-09-2022 10:58-0400 Diastolic blood pressure 80 mm[Hg] Hola GARCIA [facility] 11-09-2022 10:58-0400 Heart rate 78 /min Hola GARCIA [facility] 11-09-2022 10:58-0400 Respiratory rate 16 /min Hola GARCIA [facility] 11-09-2022 10:58-0400 Systolic blood pressure 130 mm[Hg] Hola GARCIA [facility] 10-05-2022 12:15-0400 Body height 190.5 cm Bogdan Ball Other [employer] Other 10-05-2022 12:15-0400 Body mass index (BMI) [Ratio] 31.17 kg/m2 Bogdan Ball Other [employer] Other 10-05-2022 12:15-0400 Body weight 113.13 kg Bogdan Ball Other [employer] Other 10-05-2022 12:15-0400 Diastolic blood pressure 95 mm[Hg] Bogdan Ball Other [employer] Other 10-05-2022 12:15-0400 Respiratory rate 12 /min Bogdan Ball Other [employer] [facility] Other 10-05-2022 12:15-0400 Systolic blood pressure 168 mm[Hg] Bogdan Ball Other [employer] Other 08-23-2022 08:30-0500 Body height 190.5 cm Bogdan Ball Other [employer] Other 08-23-2022 08:30-0500 Body mass index (BMI) [Ratio] 31.42 kg/m2 Bogdan Ball Other [employer] [facility] Other 08-23-2022 08:30-0500 Body weight 114.04 kg Bogdan Ball Other [employer] [facility] Other 08-23-2022 08:30-0500 Diastolic blood pressure 86 mm[Hg] Bogdan Ball Other [employer] [facility] Other 08-23-2022 08:30-0500 Respiratory rate 12 /min Bogdan Ball Other [employer] [facility] Other 08-23-2022 08:30-0500 Systolic blood pressure 132 mm[Hg] Bogdan Ball Other [employer] Other 10-06-2021 08:14-0400 Blood Pressure Location Hola GARCIA [facility] 10-06-2021 08:14-0400 Diastolic blood pressure 98 mm[Hg] Hola GARCIA [facility] 10-06-2021 08:14-0400 Heart rate 78 /min Hola GARCIA [facility] 10-06-2021 08:14-0400 Systolic blood pressure 145 mm[Hg] Hola GARCIA [facility] Encounters Encounter Date Encounter Type Care Provider Facility Start: 05-04-2024 End: 05-04-2024 ambulatory Dm Cyr [facility] Start: 04-20-2024 End: 04-20-2024 ambulatory Dm Cyr MD Facility:[facility] Start: 04-03-2024 ambulatory Hola Cid ty:BRITTANY Viola Start: 02-18-2024 End: 02-18-2024 ambulatory [facility] Work Phone: Start: 02-18-2024 End: 02-18-2024 Patient encounter procedure [facility] Phys[facility] Work Phone: Start: 02-11-2024 Non-patient / Non-visit [facility] Work Phone: Start: 10-18-2023 End: 10-18-2023 ambulatory [facility] Work Phone: Start: 10-18-2023 End: 10-18-2023 Patient encounter procedure [facility] Work Phone: Start: 10-12-2023 Non-patient / Non-visit [facility] Phys[facility] Work Phone: Start: 08-23-2023 Non-patient / Non-visit [facility] Work Phone: Start: 08-19-2023 End: 08-19-2023 ambulatory Dm Cyr MD Facility: [facility] Start: 08-16-2023 Non-patient / Non-visit [facility] Work Phone: Start: 07-30-2023 Non-patient / Non-visit [facility] Work Phone: Start: 07-29-2023 End: 07-29-2023 ambulatory Bogdan Green Other [employer] [employer] Other Start: 07-29-2023 Telephone encounter Bogdan Green [facility] Start: 07-29-2023 End: 07-29-2023 ambulatory Dm Cyr MD Facility:[facility] Start: 07-15-2023 End: 07-15-2023 ambulatory Dm Cyr MD Facility:[facility] Start: 07-08-2023 End: 07-08-2023 ambulatory Bogdan Green Other [employer] [employer] Other Start: 07-08-2023 Office outpatient vi sit 25 minutes Bogdan Ball [facility] Start: 06-24-2023 End: 06-24-2023 ambulatory Dm Cyr MD Facility: [facility] Start: 05-20-2023 End: 05-20-2023 ambulatory Dm Cyr MD [facility] Start: 05-10-2023 End: 05-10-2023 ambulatory Bogdan Green Other [employer] [facility] [facility] Other Start: 05-10-2023 Office outpatient vi sit 15 minutes Bogdan Ball [facility] Start: 05-01-2023 End: 05-01-2023 ambulatory Bogdan Green Other [employer] [facility] Other Start: 05-01-2023 Patient encounter procedure Bogdan Ball [facility] Start: 04-24-2023 End: 04-24-2023 ambulatory Bogdan Green Other [employer] [employer] [facility] Other Start: 04-24-2023 Telephone encounter Bogdan Green [facility] Start: 02-25-2023 End: 02-25-2023 ambulatory Bogdan Peter Other [employer] Other Start: 02-25-2023 Telephone encounter Bogdan Green [facility] Start: 12-27-2022 End: 12-27-2022 ambulatory Bogdan Green Other [facility] Other Start: 12-27-2022 Telephone encounter Bogdan Ball [facility] Start: 12-26-2022 End: 12-26-2022 ambulatory Bogdan Ball Other [employer] Other Start: 12-26-2022 Office outpatient vi sit 25 minutes Bogdan Ball [facility] Start: 11-19-2022 End: 11-19-2022 ambulatory Bogdan Ball Other [employer] Other Start: 11-19-2022 Telephone encounter Bogdan Ball [facility] Start: 11-09-2022 End: 11-09-2022 Patient encounter procedure Hola Rushing JOSE [facility] Start: 10-22-2022 End: 10-22-2022 ambulatory Bogdan Ball Other [employer] Other Start: 10-22-2022 Telephone encounter Bogdan Ball [facility] Start: 10-18-2022 End: 10-18-2022 ambulatory Bogdan Ball Other [employer] Other Start: 10-18-2022 Telephone encounter Bogdan Ball [facility] Start: 10-05-2022 End: 10-05-2022 ambulatory Bogdan Ball Other [employer] [facility] [facility] Other Start: 10-05-2022 Office outpatient vi sit 15 minutes Bogdan Ball [facility] Start: 09-27-2022 End: 09-27-2022 ambulatory Bogdan Ball Other [employer] [facility] [employer] [facility] Other Start: 09-27-2022 Telephone encounter Bogdan Ball [facility] Start: 09-25-2022 End: 09-25-2022 ambulatory Bogdan Ball Other [employer] Other Start: 09-25-2022 Telephone encounter Bogdan Ball [facility] Start: 09-21-2022 End: 09-21-2022 ambulatory Bogdan Ball Other [employer] Other Start: 09-21-2022 Telephone encounter Bogdan Ball [facility] Start: 08-23-2022 End: 08-23-2022 ambulatory Bogdan Ball Other [facility] Other Start: 08-23-2022 Office outpatient vi sit 25 minutes Bogdan Ball [facility] Start: 08-17-2022 End: 08-18-[address] BOGDAN GREEN Facility:[facility] Start: 08-14-2022 End: 08-14-2022 ambulatory Bogdan Green Other [facility] Other Start: 08-14-2022 Telephone encounter Bogdan HORTON [facility] Start: 07-01-2022 End: 07-01-[address] BOGDAN GREEN Facility:[facility] Start: 04-25-2022 Adult health examination Bogdan Green Other [employer] Other Start: 04-18-2022 End: 04-19-[address] BOGDAN GREEN Facility:[facility] Start: 01-20-2022 End: 01-21-2022 ambulatory NONE LISTED REQUEST Facility:[facility] Start: 10-06-2021 End: 10-06-2021 Patient encounter procedure Hola GARCIA [facility] Start: 09-16-2021 End: 09-17-[address] HOLA GARCIA . Facility:[facility] Start: 09-15-2021 End: 09-16-2021 ambulatory NONE LISTED REQUEST Facility:[facility] Start: 08-29-[address] BOGDAN GREEN Facili ty:[facility] Procedures Date Procedure Procedure Detail Performing Clinician Start: 09-16-[address] NORRIS GREEN Comment on above: Performed By: #### B MP, LIPID, ALT, URIC #### [facility] [address] [place] [address] Dr. Jorge L Carey Start: 03-29-2017 General examination of patient Bogdan Peter Other Start: 12-20-2015 Cystoscopy Hola FAITH Start: 12-15-2013 Hyperlipidemia screening Bogdan Green Other Start: 12-15-2013 Screening for malign ant neoplasm of prostate Bogdan Green Other Colonoscopy Hola GARCIA Depression screening Yanetjocelyn yonis Green Other History of hernia repair Maureen GARCIA Perirectal abscess (disorder) Hola GARCIA Screening for malign ant neoplasm of colon Bogdan Green Other Plan of Treatment Date Care Activity Detail Author [facility] XR Chest 2 Views [facility] Immunizations Immunization Date Immunization Notes Care Provider Fa tri 04-29-2023 zoster vaccine recombinant Bogdan Green Other [facility] 04-26-2023 influenza virus vaccine, unspecified formulation [facility] 04-26-2023 influenza, high dose seasonal, preservative-free Bogdan Green Other [facility] Other 02-26-2023 zoster vaccine recombinant Bogdan Green Other [facility] 04-25-2022 pneumococcal 20-alber nt conjugate vaccine Hola GARCIA [facility] 04-16-2022 influenza virus vaccine, split virus (incl. purified surface antigen) Bogdan Green Other [facility] Other 04-16-2022 influenza virus vaccine, unspecified formulation Hola GARCIA [facility] 03-23-2022 SARS-CoV-2 (COVID-19 ) [id number] Hola GARCIA [facility] 05-08-2021 SARS-CoV-2 (COVID-19 ) mRNA BNT-162b2 vax Hola GARCIA [facility] 04-22-2021 influenza virus vaccine, split virus (incl. purified surface antigen) Bogdan Green Other [facility] Other 04-22-2021 influenza virus vaccine, unspecified formulation Hola GARCIA [facility] 03-30-2021 influenza virus vaccine, unspecified formulation Hola GARCIA [facility] 09-16-2020 COVID-19, mRNA, LNP- S, PF, 30 mcg/0.3 mL dose; 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: [Pfizer-BioNTech COVID-19 Vaccine] Hola GARCIA [facility] Comment on above: Reason for Medicatio n: Prophylaxis 08-26-2020 COVID-19, mRNA, LNP- S, PF, 30 mcg/0.3 mL dose; 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: [Pfizer-BioNTech COVID-19 Vaccine] Hola GARCIA [facility] Comment on above: Reason for Medicatio n: Prophylaxis 04-16-2020 influenza virus vaccine, split virus (incl. purified surface antigen) Bogdan Green Other [facility] Other 04-16-2020 influenza virus vaccine, unspecified formulation Hola GARCIA [facility] pneumococcal Conjuga te, unspecified formulation; 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: [Need for prophylactic vaccination against Streptococcus pneumoniae (pneumococcus)] Bogdan Green Other [facility] Other Payers Date Payer Category Payer Medicare 2022 Unknown 2021 Medicare [id number] 2020 Unknown [id number] 1959 Medicare [id number] 1959 Self-pay [id number] 1959 Unknown [id number] 1959 Unknown [id number] 1956 Unknown [id number] 2.16.84 0.1.581148.3.579.2.593 1956 Unknown [id number] 2.16.84 0.1.742817.3.579.2.593 1956 Unknown [id number] 2.16.84 0.1.476213.3.579.2.593 1956 Unknown [id number] 2.16.84 0.1.790814.3.579.2.593 1956 Unknown [id number] 2.16.84 0.1.740162.3.579.2.593 1956 Unknown [id number] 2.16.8 40.1.517395.3.579.2.727 1956 Unknown [id number] 2.16. 840.1.978733.3.579.2.196 1956 Unknown [id number] 2.16. 840.1.736411.3.579.2.196 1956 Unknown [id number] 2.16. 840.1.978773.3.579.2.196 1956 Unknown [id number] 2.16. 840.1.005972.3.579.2.196 1956 Unknown [id number] 2.16. 840.1.661324.3.579.2.196 1956 Unknown [id number] 2.16. 840.1.302113.3.579.2.196 1956 Unknown [id number] 2.16. 840.1.238273.3.579.2.196 Blue Cross Blue Shield [id number] 2.16.840.1.797351.19 Self-pay Self Pay [id number] Unknown [id number] 2.16.84 0.1.758302.3.579.2.593 Unknown [id number] 2.16.84 0.1.430080.3.579.2.593 Social History Date Type Detail Facility Start: 10-06-2021 End: 07-27-2023 Tobacco smoking status Never smoked tobacco (finding) [facility] Sex Assigned At Male [facility] Tobacco smoking status Never [facility] Start: 1955 Sex Assigned At Male F [facility] Medical Equipment Procedure Code Equipment Code Equipment [...] current use of insulin (ICD-10 - E11.65) [facility] Other 01-22-2024 Evaluation note* Encounter Date Diagnosis [...] index [BMI] 32.0-32.9, adult (ICD-10 - Z68.32) [facility] Other 11-24-2023 Evaluation note* Encounter Date Diagnosis [...] Microalbumin, Dilated eye exam and Foot exam [facility] Other 11-15-2023 Evaluation note* Encounter Date [...] flares Sep, Thrombocytopenia, unspecified (ICD-10 - D69.6) [facility] Other 11-15-2023 Evaluation note* Encounter Date [...] flares Sep, Thrombocytopenia, unspecified (ICD-10 - D69.6) [facility] Other 11-08-2023 Evaluation note* Encounter Date Diagnosis Assessment Notes Treatment Notes Treatment Clinical Notes Apr, Screening PSA (prostate specific antigen) (ICD-10 - Z12.5) Apr, Type 2 diabetes mellitus with hyperglycemia, without long-term current use of insulin (ICD-10 - E11.65) Apr, Elevated cholesterol (ICD-10 - E78.00) Apr, Primary hypertension (ICD-10 - I10) Sep, Thrombocytopenia, unspecified (ICD-10 - D69.6) Thrombocytopenia [facility] Other 07-12-2023 Evaluation note* Encounter Date [...] [BMI] 31.0-31.9, adult (ICD-10 - Z68.31) Dec, FCI (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 (ICD-10 - Z79.4) [facility] Other 05-26-2023 Hospital Discharge instructions Patient [...] treatment? Where to find more information [employer]: www.cancer.org [employer]: www.auanet.org Contact a health care [...] provider. Document Revised: 11/27/2021 Document Reviewed: 11/27/2021 [employer]ohchi Patient Education 2022 [employer]. Follow Up Care 10/06/2021 08:40:21 With:JOSE MCMANUS, Hola Rushing, URL Address: [facility] [address] , [place] [address]- When: Unknown [facility] 05-08-2023 Evaluation note* Encounter Date Diagnosis Assessment Notes Treatment Notes Treatment Clinical Notes October, Primary hypertension (ICD-10 - I10) [facility] [place] Other 05-04-2023 Evaluation note* Encounter Date Diagnosis Assessment Notes Treatment Notes Treatment Clinical Notes October, Primary hypertension (ICD-10 - I10) [facility] [place] Other 04-21-2023 Evaluation note* Encounter Date Diagnosis [...] and Glimepiride appear to be controlling BS. 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 (ICD-10 - Z79.4) [facility] Other 04-11-2023 Evaluation note* Encounter Date Diagnosis Assessment Notes Treatment Notes Treatment Clinical Notes Sep, Type 2 diabetes mellitus with hyperglycemia, without long-term current use of insulin (ICD-10 - E11.65) [facility] Other 04-07-2023 Evaluation note* Encounter Date Diagnosis Assessment Notes Treatment Notes Treatment Clinical Notes Sep, Type 2 diabetes mellitus with hyperglycemia (ICD-10 - E11.65) [facility] Other 03-09-2023 Evaluation note* Encounter Date [...] Reviewed red flag symptoms and nerve impingement [facility] Other 02-28-2023 Evaluation note* Encounter Date Diagnosis Assessment Notes Treatment Notes Treatment Clinical Notes Jul, Type 2 diabetes mellitus with hyperglycemia, without long-term current use of insulin (ICD-10 - E11.65) [facility] Other 04-22-2022 Hospital Discharge instructions Patient [...] urethra. Follow these instructions at home: Take blbi-npf-oyfwxsu and prescription medicines only as told by [...] 06/03/2006 Document Revised: 04/28/2019 Document Reviewed: 07/08/2017 mohchi Patient Education 2020 [employer]. Follow Up Care 10/03/2020 15:00:49 With:Hola GARCIA MD, URL Address: [facility] [address], [place] [phone] When:10/06/2022 [facility] evaluation + Plan note Future Appointments Appointment Date:10/12/2022 08:00:00 AM Scheduled Provider:Hola GARCIA MD Location:[facility] Appointment Type:URO Office Visit Diagnostic Tests Pending * PSA Total 10/06/21 [facility] evaluation + Plan note Future Appointments Appointment Date:11/18/2023 08:45:00 AM Scheduled Provider:Hola GARCIA MD Location:[facility] Appointment Type:URO Office Visit Diagnostic Tests Pending * PSA Free & Total 11/09/22 [facility] evaluation [employer] Other evaluation noteNo Information[facility] Other evaluation note* Diagnosis Onset Date Resolution Status Elevated cholesterol acute Gastroesophageal reflux dise ase with esophagitis without hemorrhage acute Obesity acute Primary hypertension acute Spondylosis without myelopat hy or radiculopathy, lumbar region acute Type 2 diabetes mellitus with hyperglycemia [facility] Work Phone: Evaluation note* Diagnosis Onset Date Resolution Status Elevated cholesterol acute Gastroesophageal reflux dise ase with esophagitis without hemorrhage acute Primary hypertension acute Spondylosis without myelopat hy or radiculopathy, lumbar region acute Type 2 diabetes mellitus with hyperglycemia acute [facility] Work Phone: History general Narrative - Reported* Type Description [...] CYSTOSCOPY 2016 Hospitalization History SEE SURGICAL HX [facility] Other History general Narrative - Rep[employer]Nort [employer] Other History general Narrative - Reported* Type [...] CYSTOSCOPY 2016 Hospitalization History SEE SURGICAL HX [facility] Other Hospital course Narrative No data available for this section [facility] [employer] note No data available for this section [facility] [employer] Summary Purpose Family History No Family History [...] well ness visit, initial (Z00.00) Referral Organization [facility] [place] Referring Provider First Name Bogdan Referring Provider Last Name Peter Referring Provider Specialty Internal Me dicine Referred Organization [facility] Referred Provider Swapnil French Referred Address [address], [place],[address] Referred Provider Specialty Pain Medicin e Referral [...] Notes Include XR lumbar sp ine f: [id number] Chief Complaint and Reason for Visit Chief [...] section and content) DATE CREATED AUTHOR 07/30/2021 [facility] DATE CREATED AUTHOR AUTHOR'S ORGANIZ ATION 08/22/2022 [facility] DATE CREATED AUTHOR AUTHOR'S ORGANIZ ATION 11/14/2023 [facility] DATE CREATED AUTHOR AUTHOR'S ORGANIZ ATION 05/09/2024 [facility] REASON FOR VISIT (unrecogniz ed section and content) BS readingsElevated blood cifuentes [id number] [employer]Lab ResultsBP readingsrefillelevated BPMedication4 MONTH FOLLOW UP Patient Care team informatio n (unrecognized section and content) Team Status: Active Member Role Status Dates Bogdan Green DO Primary Care Provider Active Team [...] Status: Active Member Role Status Dates Bogdan Ball , DO Primary Care Provide r, Attending [...] BE BASED ON THE PRIMARY CLINICAL RECORDS. [facility] [employer] [facility]. provides no warranty or guarantee of the accuracy or completeness of information in this document.
[2024-05-11 07:02] LABS: Creatinine Urine Random 93.68 mg/dL (20.00-300.00); Microalbumin Urine Random <1.3 mg/dL (<=30.0)
[2024-05-11 07:04] LABS: Estimated Average Glucose 197 mg/dL; Glycohemoglobin A1C 8.5 % (4.5-6.2)
[2024-05-11 07:05] LABS: Alanine Aminotransferase 51 U/L (16-63); Albumin Level 3.6 g/dL (3.4-5.0); Alkaline Phosphatase 53 U/L (46-116); Anion Gap 15.8; Aspartate Amino Transferase 32 U/L (15-37); Bilirubin Total 0.7 mg/dL (0.2-1.0); Calcium 8.9 mg/dL (8.5-10.1); Carbon Dioxide 26.5 mmol/L (21.0-32.0); Chloride 102 mmol/L (98-107); Chol HDL Ratio 2.2; Cholesterol 130 mg/dL (<=200); Estimated GFR (African America >60 (>=60 mL/min/1.73m^2); Estimated GFR (Non-African Ame >60 (>=60 mL/min/1.73m^2); Globulin 3.5 g/dL; Glucose 142 mg/dL (74-106); HDL Cholesterol 60 mg/dL (40-60); LDL Cholesterol Calculated 55.6 mg/dL; Potassium 4.3 mmol/L (3.5-5.1); Sodium 140 mmol/L (136-145); Total Protein 7.1 g/dL (6.4-8.2); Triglycerides 72 mg/dL (<=150); VLDL CHOLESTEROL 14.4 mg/dL
[2024-05-11 07:19] LABS: Basophils Percent Auto 0.2 % (0.2-2.0); Eosinophils Absolute Auto 0.1 10^3/uL (0.0-0.7); Eosinophils Percent Auto 0.9 % (0.9-7.0); Hematocrit 47.3 % (42.0-54.0); Hemoglobin 15.9 g/dL (14.0-18.0); Immature Granulocytes Abs Auto 0.03 10^3/uL (0.00-0.03); Immature Granulocytes Pct Auto 0.3 % (0.0-0.5); Lymphocytes Absolute Auto 1.8 10^3/uL (1.2-3.8); Lymphocytes Percent Auto 17.5 % (20.5-60.0); Mean Corpuscular HGB Conc 33.6 g/dL (29.9-35.2); Mean Corpuscular Hemoglobin 29.8 pg (25.9-34.0); Mean Corpuscular Volume 88.7 fL (80.0-94.0); Mean Platelet Volume 12.6 fL (9.5-13.5); Monocytes Absolute Auto 0.6 10^3/uL (0.3-0.8); Monocytes Percent Auto 5.3 % (1.7-12.0); Neutrophils Percent Auto 75.8 % (43.0-75.0); Platelet Count 191 10^3/uL (150-450); Red Blood Count 5.33 10^6/uL (4.70-6.10); Red Cell Distribution Width 11.7 % (11.0-15.0); White Blood Count 10.5 10^3/uL (4.0-11.0)
== END 2024-05-11 06:35 | disposition home or self-care (01) ==
PROVIDERS: PCP Internal Medicine; Visit Provider Internal Medicine
DX: E78.00 Pure hypercholesterolemia, unspecified (principal); E11.65 Type 2 diabetes mellitus with hyperglycemia; Z79.4 Long term (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; I10 Essential (primary) hypertension; Z12.5 Encounter for screening for malignant neoplasm of prostate
CPT/HCPCS: 36415; 80053; 80061; 82043; 82570; 83036; 85025; G0103

== ENCOUNTER 2024-05-13 10:35 | Outpatient (OUT) | payer MEDICARE, BC, SELFPAY ==
--- NOTE | 2024-05-13 10:55 | P.CN_ITS ---
Consult Note: HPI Data of Consult Patient: known to practice within the last 3 years Consult date: 05/20/23 Requesting Physician: Radha Cope NP Primary Care Provider: Bogdan Green DO Family Provider: f/u Consult Narrative Reason for consult: f/u Narrative: 68yom who presents for evaluation. worsening axial low back pain that has persisted for >1 year. underwent physical therapy in the summer and continues in a course of provider directed home exercises, which have not provided significant relief for >6 weeks >3x/week. imaging reviewed, significant for facet arthropathy in lower lumbar spine. uses otc pain meds as needed. Patient recently underwent bilateral L4-5 L5-S1 thermal RFA with moderate improvement ongoing, patient notices improvement in ambulation. Pain today 0-1/10 in low back increasing to 3/10 with standing and walking. improved with forward flexion and upon sitting. lumbar MRI completed which is consistent with multilevel disc degeneration and stenosis most significant at L4-S1. recent repeat bilateral L4- 5 TFESI and L5-S1 TFESI providing significant pain relief and functional improvement. cc:: CC: Radha Cope NP Review of Systems ROS Status of ROS 10 or more systems reviewed and unremark able except as noted in history and below PFSH PFSH Medical History History of stress test ?Z92.89 - Personal history of other medical treatment (ICD-10) Acid reflux ?K21.9 - Gastro-esophageal reflux disease without esophagitis (ICD-10) Diabetes ?E11.9 - Type 2 diabetes mellitus without complications (ICD-10) HTN (hypertension) ?I10 - Essential (primary) hypertension (ICD-10) Surgical History History of hernia repair ?Z98.890 - Other specified postprocedural states (ICD-10) ?Z87.19 - Personal history of other diseases of the digestive system (ICD-10) Meds Home Medications and Allergies Home Medications ?Medication ?Instructions ?Recorded ?Confirmed ?Type allopurinol 100 mg tablet 100 mg PO DAILY 06/14/23 05/04/24 History amlodipine 5 mg tablet 5 mg PO DAILY 06/14/23 05/04/24 History atorvastatin 10 mg tablet 10 mg PO DAILY 06/14/23 05/04/24 History benazepril 5 mg tablet 20 mg PO DAILY 06/14/23 05/04/24 History finasteride 5 mg tablet 5 mg PO DAILY 06/14/23 05/04/24 History glimepiride 4 mg tablet 4 mg PO DAILY 06/14/23 05/04/24 History insulin glargine 100 unit/mL (3 25 unit subcut DAILY 06/14/23 05/04/24 History mL) subcutaneous pen (Lantus Solostar U-100 Insulin) latanoprost 0.005 % eye drops 1 drp ophthalmic (eye) DAILY 06/14/23 05/04/24 History metformin 1,000 mg tablet 1,000 mg PO BID 06/14/23 05/04/24 History tamsulosin 0.4 mg capsule 0.4 mg PO Q24H 06/14/23 05/04/24 History cetirizine 10 mg capsule (All Day 10 mg PO DAILY PRN allergy symptoms 06/24/23 05/04/24 History Allergy (cetirizine)) omeprazole 10 mg capsule,delayed 10 mg PO DAILY 06/24/23 05/04/24 History release dulaglutide 0.75 mg/0.5 mL 0.75 mg subcut QWEEK 08/07/23 05/04/24 History subcutaneous pen injector (Trulicity) Allergies Allergy/AdvReac Type Severity Reaction Status Date / Time No Known Drug Allergies Allergy Verified 05/04/24 10:11 Exam Constitutional Documenting provider has reviewed patient's vital signs: yes Common normals: no apparent distress, oriented x3, healthy appearing, alert and well nourished General appearance: cooperative [facility] Common normals: normocephalic, hearing grossly normal bilaterally and moist oral mucous membranes Head and scalp: normocephalic Eye Common normals: PERRL Pupil: PERRL Neck & C-Spine Common normals: full ROM General: normal visual inspection Chest Common normals: inspection of chest normal Respiratory Common normals: normal respiratory effort, no retractions and no use of acces yandy muscles Back & Pelvis Lumbar spine/lower back: lumbar ROM normal and straight leg raise negative bilaterally; no pain with ROM and no lumbar spinal tenderness Sacroiliac joints: SI joints normal Other: negative PSIS, 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 and gaenslens mildly positive facet loading increased low back pain with standing and walking, improved with forward flexion Extremity Common normals: normal to inspection and full ROM Neuro Common normals: oriented x3, CN's II-XII intact bilaterally, moves all extremities, no focal motor deficits, no sensory deficits noted and deep tendon reflexes 2+ bilaterally Sensorium/orientation: alert Motor exam: strength 5/5 throughout and no movement abnormalities noted Psych Common normals: mental status grossly normal, thought process normal, cooperative, affect normal, speech normal and activity/motor behavior normal Speech: normal speech Thought process: normal thought process Results Additional Findings Additional findings: If on a controlled substance or opioids, I have checked an [place]ARRS report on this patient and there are no aberrancies noted in the prescribing history.??If on a controlled substance or opioid a drug screen was completed and reviewed within the last year, and if there has not been a drug screen completed we ordered one today to monitor higher risk, state monitored pain medication use. As part of providing excellent, safe, comprehensive care, the following was completed at our patient's visit: 1. A medication reconciliation and review to ensure accurate knowledge of current/active medications, including asking our patients to inform us about any xzvp-pcs-camqaze medications or herbal remedies/nutritional supplements/alternative remedies. 2. A review to specifically ensure our patients have had annual screening for screening for depression, screening for tobacco use, and screening for unhealthy alcohol use. For concerning screenings had a discussion with the patient, provided patient education, and recommended follow-up with primary care provider when appropriate. If patient noted with a risk of falling, they received education on strength, gait, and balance training to prevent future risk of falling. Assessment and Plan Assessment and Plan (1) Lumbar stenosis with neurogenic claudication: (2) Degenerative disc disease, lumbar: (3) Lumbar spondylosis: Plan update lumbar xray with flexion to assess for stability consider L4-5 vertifcece, Dr Cyr to review chart continue HEP as tolerated
== END 2024-05-13 10:36 | disposition home or self-care (01) ==
LOC: PM 10:36
PROVIDERS: PCP Internal Medicine; Visit Provider Nurse Practitioner
DX: M48.062 Spinal stenosis, lumbar region with neurogenic claudication (principal); M51.369 Other intervertebral disc degeneration, lumbar region without mention of lumbar back pain or lower extremity pain; M47.816 Spondylosis without myelopathy or radiculopathy, lumbar region
CPT/HCPCS: G0463

== ENCOUNTER 2024-05-18 10:55 | Outpatient (OUT) | payer MEDICARE, BC, SELFPAY ==
--- NOTE | 2024-05-18 | XR_ITS ---
The [address] [address] Patient Name: FELIPE QUAN MRN: [id number] date: 1955 Sex: M Assigned Patient Location: [facility] Current Patient Location: Accession/Order Number: [id number] Exam Date: 05/18/2024 11:20 Report Date: 05/19/2024 06:46 At the request of: KIMBERLY HERNANDEZ Procedure: XR lumbar spine 6V w bending EXAMINATION: XR lumbar spine 6V w bending HISTORY: LUMBAR SPONDYLOSIS COMPARISON: XR lumbar spine 12/26/2022 FINDINGS: BONES: Mild degenerative facet arthropathy L4-L5, L5-S1. Normal height and alignment of the vertebral bodies; no fracture, bone lesion, or significant listhesis. No change in alignment during flexion and extension. DISC SPACES: Marked narrowing L5-S1. PARASPINOUS: Negative. No paraspinous abnormality is seen. OTHER: Negative. XR/XR lumbar spine 6V w bending IMPRESSION: 1. L5-S1 marked degenerative disc disease; stable to minimally progressed compared to prior study. Electronically authenticated by: LUZMA YEAGER Date: 05/19/2024 06:46
--- OUTSIDE RECORDS SUMMARY | 2024-05-18 11:18 | XMS_ITS | CCD ---
Author Organization [facility] Care Team Providers Care Engineering Secretary Name Role Phone BOGDAN GREEN Primary Care [...] Unavailable Giedraitis , Taus Tom Attending Unavailable Giwilitis , Andrius Tom Attending Unavailable Giwilitis , Andrius Tom Attending Unavailable Gishai MCMANUS, Andrius Vytjovany Attending Unavailable Giwilitis , Andrius Vytjovany Attending Unavailable Gishai MCMANUS, Andkathy Santos Attending Unavailable Allergies Allergy Classification Reported Allergen(s) Allergy Type Date of Onset Reaction(s) Facility (2 sources) patient allergy list reviewed by nurse or physicia Propensity to adverse reactions Comment:Done [facility] Other (1 source) No Known Medication Allergies; 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: [No Known Medication Allergies] Propensity to adverse reactions (disorder) [facility] Repository Medications Current Medications Medication Drug [...] day(s), # 90 tab(s), Refills(s) 3, Pharmacy: [facility]/pharmacy #[id number], 195, cm, 11/09/22 11:00:00 EDT, Height/Length Dosing, 111, kg, 11/09/22 11:00:00 EDT, Weight Dosing Start Date: 11/09/22 Stop Date: 11/04/23 Status: Ordered Start: 10-06-2021 take 1 tablet by [facility] once daily finasteride 5 mg Tab 5 mg = 1 tab(s), Oral, Daily, # 90 tab(s), Refills(s) 3, Pharmacy: 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; 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: [SENIOR LIVING USE ORAL HYPOGLYCEMIC DX] Onset: 07-03-2022 Episodic Other aftercare (15 sources) Long-term current use of insulin; 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: [entry manager (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] Episodic Other aftercare (2 sources) senior living (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 Episodic Other aftercare (2 sources) Long-term current use of drug therapy; 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: [Other body specialist (current) drug therapy] Episodic Other and unspecified [...] from glycated hemoglobin (Bld) [Mass/Vol] 169 mg/dL [facility] - Hematology and Cell countson 02-11-2024 HbA1c (Bld) [Mass fraction] 7.5 % High 4.5-6.2 [facility] Comment on above: ADA RECOMMENDED LIMI T 4.0 - 6.0ADA THERAPEUTIC TARGET < 7.0ACTION SUGGESTED> 7.0 Glucose mean value [Mass/vol ume] in Blood Estimated from glycated hemoglobinon 10-12-2023 Average glucose Estimated from glycated hemoglobin (Bld) [Mass/Vol] 180 mg/dL [facility] - Hematology and Cell countson 10-12-2023 HbA1c (Bld) [Mass fraction] 7.9 % 4.5-6.2 [facility] Comment on above: ADA RECOMMENDED LIMI T 4.0 - 6.0ADA THERAPEUTIC TARGET < 7.0ACTION SUGGESTED> 7.0 GLYCOHEMOGLOBIN A1Con 2022 ADA RECOMMENDATION SEE BELOW Normal [facility] Comment on above: Result Comment: ADA RECOMMENDED LIMIT 4.0 - 6.0 ADA THERAPEUTIC TARGET < 7.0 ACTION SUGGESTED > 7.0 Performed By: #### B MP, LIPID, ALT, URIC #### [facility] [address] [place] [address] Dr. Jorge L Carey Glucose [Mass/Vol] 148 mg/dL Normal [facility] Comment on above: Performed By: #### B MP, LIPID, ALT, URIC #### [facility] [address] [address] [address] Jorge L Carey HbA1c (Bld) [Mass fraction] 6.8 % Critically high 4.5-6.2 [facility] Comment on above: Performed By: #### B MP, LIPID, ALT, URIC #### [facility] [address] [address] [address] Jorge L Carey CARDIAC DANAY ADMITon 023 CK [Catalytic activity/Vol] 59 U/L Normal 39-308 [facility] Comment on above: Performed By: #### C MP, CMADM #### [facility] [address] [address] [address] Jorge L Carey CK.MB [Mass/Vol] 0.99 ng/mL Normal <=3.60 [facility] Comment on above: Performed By: #### C MP, CMADM #### [facility] [address] [place] [address] Dr. Jorge L Carey HSTROP 10.0 pg/mL Normal 4.0-76.1 [facility] Comment on above: Result Comment: CUT- OFF POINTS HAVE BEEN ESTABLISHED BASED ON THE FOURTH UNIVERSAL DEFINITIONS OF MYOCARDIAL INFARCTION. THE UPPER REFERENCE LIMIT (URL) OF TROPONIN, DEFINED THE 99TH PERCENTILE OF cTnI DISTRIBUTION IN A REFERENCE POPULATION, HAS BEEN CONFIRMED THE DECISION THRESHOLD FOR CT DIAGNOSIS. Performed By: #### C MP, CMADM #### [facility] [address] [place] [address] Dr. Jorge L Carey GARLAND 52 ng/mL Normal 16-96 [facility] Comment on above: Performed By: #### C MP, CMADM #### [facility] [address] [place] [address] Dr. Jorge L Carey CBC AUTO DIFFon 07-01-2022 BASO # 0.0 103/ul Normal 0.0-0.1 [facility] Comment on above: Performed By: #### B MP, LIPID, ALT, URIC #### [facility] [address] [place] [address] Dr. Jorge L Carey Basophils/100 WBC (Bld) 0.3 % Normal 0.2-2.0 [facility] Comment on above: Performed By: #### B MP, LIPID, ALT, URIC #### [facility] [address] [place] [address] Dr. Jorge L Carey EO # 0.1 103/ul Normal 0.0-0.7 [facility] Comment on above: Performed By: #### B MP, LIPID, ALT, URIC #### [facility] [address] [place] [address] Dr. Jorge L Carey Eosinophils/100 WBC (Bld) 0.9 % Normal 0.9-7.0 [facility] Comment on above: Performed By: #### B MP, LIPID, ALT, URIC #### [facility] [address] [place] [address] Dr. Jorge L Carey Erythrocyte distribution width (RBC) [Ratio] 11.7 % Normal 11.0-15.0 [facility] Comment on above: Performed By: #### B MP, LIPID, ALT, URIC #### [facility] [address] [place] [address] Dr. Jorge L Carey Hematocrit (Bld) [Volume fraction] 41.1 % Critically low 42.0-54.0 [facility] Comment on above: Performed By: #### B MP, LIPID, ALT, URIC #### [facility] [address] [place] [address] Dr. Jorge L Carey Hemoglobin (Bld) [Mass/Vol] 14.5 g/dL Normal 14.0-18.0 [facility] Comment on above: Performed By: #### B MP, LIPID, ALT, URIC #### [facility] [address] [place] [address] Dr. Jorge L Carey IG # 0.02 10e3/ul Normal 0.00-0.03 [facility] Comment on above: Performed By: #### B MP, LIPID, ALT, URIC #### [facility] [address] [place] [address] Dr. Jorge L Carey IG % 0.3 % Normal 0.0-0.5 [facility] Comment on above: Performed By: #### B MP, LIPID, ALT, URIC #### [facility] [address] [place] [address] Dr. Jorge L Carey LYMPH # 1.1 103/ul Critically low 1.2-3.8 [facility] Comment on above: Performed By: #### B MP, LIPID, ALT, URIC #### [facility] [address] [place] [address] Dr. Jorge L Carey Lymphocytes/100 WBC (Bld) 16.6 % Critically low 20.5-60.0 [facility] Comment on above: Performed By: #### B MP, LIPID, ALT, URIC #### [facility] [address] [place] [address] Dr. Jorge L Carey MANUAL DIFF REQ NO Normal The [facility] Comment on above: Performed By: #### B MP, LIPID, ALT, URIC #### [facility] [address] [place] [address] Dr. Jorge L Carey MCH (RBC) [Entitic mass] 30.1 pg Normal 25.9-34.0 [facility] Comment on above: Performed By: #### B MP, LIPID, ALT, URIC #### [facility] [address] [place] [address] Dr. Jorge L Carey MCHC (RBC) [Mass/Vol] 35.3 g/dL Critically high 29.9-35.2 [facility] Comment on above: Performed By: #### B MP, LIPID, ALT, URIC #### [facility] [address] [place] [address] Dr. Jorge L Carey MCV (RBC) [Entitic vol] 85.4 fL Normal 80.0-94.0 [facility] Comment on above: Performed By: #### B MP, LIPID, ALT, URIC #### [facility] [address] [place] [address] Dr. Jorge L Carey MONO # 0.4 103/ul Normal 0.3-0.8 [facility] Comment on above: Performed By: #### B MP, LIPID, ALT, URIC #### [facility] [address] [place] [address] Dr. Jorge L Carey Monocytes/100 WBC (Bld) 5.1 % Normal 1.7-12.0 [facility] Comment on above: Performed By: #### B MP, LIPID, ALT, URIC #### [facility] [address] [place] [address] Dr. Jorge L Carey NEUT # 5.3 103/ul Normal 1.4-6.5 [facility] Comment on above: Performed By: #### B MP, LIPID, ALT, URIC #### [facility] [address] [place] [address] Dr. Jorge L Carey Neutrophils/100 WBC (Bld) 76.8 % Critically high 43.0-75.0 [facility] Comment on above: Performed By: #### B MP, LIPID, ALT, URIC #### [facility] [address] [place] [address] Dr. Jorge L Carey Platelet mean volume (Bld) [Entitic vol] 12.1 fL Normal 9.5-13.5 [facility] Comment on above: Performed By: #### B MP, LIPID, ALT, URIC #### [facility] [address] [place] [address] Dr. Jorge L Carey PLT 147 103/ul Critically low 150-450 [facility] Comment on above: Performed By: #### B MP, LIPID, ALT, URIC #### [facility] [address] [address] [address] Jorge L Carey RBC 4.81 106/ul Normal 4.70-6.10 [facility] Comment on above: Performed By: #### B MP, LIPID, ALT, URIC #### [facility] [address] [address] [address] Jorge L Carey WBC 6.9 103/ul Normal 4.0-11.0 [facility] Comment on above: Performed By: #### B MP, LIPID, ALT, URIC #### [facility] [address] [address] [address] Jorge L Carey [address] HEAD WO [...] MALENA LÓPEZ Date: 2022-07-01 20:24 Normal [facility] Covid-19 PCR (CVDTB)on 06-17 SARS-CoV-2 (COVID-19) RNA EDVIN+probe Ql (Unsp spec) Not detected Normal NOT DETECTED [facility] Comment on above: Result Comment: When diagnostic [...] for this test is supported by the Ceramic Designer of Health and Human Service's declaration that [...] used). Performed By: #### C VDTBH #### [facility] [address] [place] [address] Dr. Jorge L Carey D-DIMERon 07-01-2022 D-DIMER 0.21 mg/L FEU Normal <=0.[address] [facility] Comment on above: Performed By: #### B MP, LIPID, ALT, URIC #### [facility] [address] [place] [address] Dr. Jorge L Carey D-DIMER COMMENTS SEE BELOW Normal [facility] Comment on above: Result Comment: [...] #### B MP, LIPID, ALT, URIC #### [facility] [address] [place] [address] Dr. Jorge L Carey ER URINE PROFILEon Bilirubin Ql (U) Negative Normal NEGATIVE [facility] Comment on above: Performed By: #### B MP, LIPID, ALT, URIC #### [facility] [address] [address] [address] Jorge L Carey Clarity (U) CLEAR Normal CLEAR [facility] Comment on above: Performed By: #### B MP, LIPID, ALT, URIC #### [facility] [address] [address] [address] Jorge L Carey Color (U) LT. YELLOW Normal YELLOW [facility] Comment on above: Performed By: #### B MP, LIPID, ALT, URIC #### [facility] [address] [address] [address] Jorge L Carey ERUAHJacy A micrscopic examination will be performed if indicated. Normal [facility] Comment on above: Performed By: #### B MP, LIPID, ALT, URIC #### [facility] [address] [place] [address] Dr. Jorge L Carey Glucose Ql (U) Negative Normal NEGATIVE [facility] Comment on above: Performed By: #### B MP, LIPID, ALT, URIC #### [facility] [address] [place] [address] Dr. Jorge L Carey Hemoglobin Ql (U) Negative Normal NEGATIVE [facility] Comment on above: Performed By: #### B MP, LIPID, ALT, URIC #### [facility] [address] [address] [address] Jorge L Carey Ketones Ql (U) Negative Normal NEGATIVE [facility] Comment on above: Performed By: #### B MP, LIPID, ALT, URIC #### [facility] [address] [place] [address] Dr. Jorge L Carey LEUKOCYTES Negative Normal NEGATIVE [facility] Comment on above: Performed By: #### B MP, LIPID, ALT, URIC #### [facility] [address] [address] [address] Jorge L Carey Nitrite Ql (U) Negative Normal NEGATIVE [facility] Comment on above: Performed By: #### B MP, LIPID, ALT, URIC #### [facility] [address] [place] [address] Dr. Jorge L Carey pH (U) 6.0 [pH] Normal 5-9 [facility] Comment on above: Performed By: #### B MP, LIPID, ALT, URIC #### [facility] [address] [place] [address] Dr. Jorge L Carey SPEC GRAVITY 1.020 Normal 1.005-<=1.025 [facility] Comment on above: Performed By: #### B MP, LIPID, ALT, URIC #### [facility] [address] [place] [address] Dr. Jorge L Carey UA PROTEIN Negative Normal NEGATIVE/ TRACE [facility] Comment on above: Performed By: #### B MP, LIPID, ALT, URIC #### [facility] [address] [place] [address] Dr. Jorge L Carey UR MICRO IND NOT INDICATED Normal [facility] Comment on above: Performed By: #### B MP, LIPID, ALT, URIC #### [facility] [address] [place] [address] Dr. Jorge L Carey Urobilinogen Qn (U) 1.0 {Ila'U}/dL Normal 0.2 - 1. 0 [facility] Comment on above: Performed By: #### B MP, LIPID, ALT, URIC #### [facility] [address] [place] [address] Dr. Jorge L Carey INFLUENZA A AND B [facility] 07-01 [facility] SEE BELOW Normal [facility] Comment on above: Result Comment: Nega tive for Flu A protein angiten. Infection due to Flu A cannot be ruled out. Flu A angiten in the sample may be below the detection limit of the test. Performed By: #### I NFLUAB #### [facility] [address] [place] [address] Dr. Jorge L Carey [facility] SEE BEL[facility] Normal [facility] Comment on above: Result Comment: Nega tive for Flu B protein antigen. Infection due to Flu B cannot be ruled out. Flu B antigen in the sample may be below the detection limit of the test. Performed By: #### I NFLUAB #### [facility] [address] [place] [address] Dr. Jorge L Carey INFLUENZA A AG Negative Normal NEGATIVE SEE COMMENT [facility] Comment on above: Performed By: #### I NFLUAB #### [facility] [address] [place] [address] Dr. Jorge L Carey INFLUENZA B AG Negative Normal NEGATIVE SEE COMMENT [facility] Comment on above: Performed By: #### I NFLUAB #### [facility] [address] [place] [address] Dr. Jorge L Carey POINT OF CARE GLUCOSEon 06-17 Glucose [Mass/Vol] 130 mg/dL Critically high 74-106 [facility] Comment on above: Performed By: #### B MP, LIPID, ALT, URIC #### [facility] [address] [place] [address] Dr. Jorge L Carey PROF 14(COMP METB)on 023 Albumin [Mass/Vol] 3.7 g/dL Normal 3.4-5.0 [facility] Comment on above: Performed By: #### C IGGY, CMADM #### [facility] [address] [place] [address] Dr. Jorge L Carey Albumin/Globulin [Mass ratio] 1.2 {ratio} Normal [facility] Comment on above: Performed By: #### C IGGY, CMADM #### [facility] [address] [place] [address] Dr. Jorge L Carey ALP [Catalytic activity/Vol] 49 U/L Normal 46-116 [facility] Comment on above: Performed By: #### C MP, CMADM #### [facility] [address] [place] [address] Dr. Jorge L Carey ALT [Catalytic activity/Vol] 30 U/L Normal 16-63 [facility] Comment on above: Performed By: #### C IGGY, CMADM #### [facility] [address] [place] [address] Dr. Jorge L Carey Anion gap [Moles/Vol] 12.7 mmol/L Normal [facility] Comment on above: Performed By: #### C IGGY, CMADM #### [facility] [address] [address] [address] Jorge L Carey AST [Catalytic activity/Vol] 21 U/L Normal 15-37 [facility] Comment on above: Performed By: #### C MP, CMADM #### [facility] [address] [address] [address] Jorge L Carey Bilirubin [Mass/Vol] 0.5 mg/dL Normal 0.2-1.0 [facility] Comment on above: Performed By: #### C MP, CMADM #### [facility] [address] [address] [address] Jorge L Carey Calcium [Mass/Vol] 8.9 mg/dL Normal 8.5-10.1 [facility] Comment on above: Performed By: #### C MP, CMADM #### [facility] [address] [place] [address] Dr. Jorge L Carey Chloride [Moles/Vol] 100 mmol/L Normal 98-107 [facility] Comment on above: Performed By: #### C MP, CMADM #### [facility] [address] [place] [address] Dr. Jorge L Carey CO2 [Moles/Vol] 29.0 mmol/L Normal 21.0-32.0 [facility] Comment on above: Performed By: #### C MP, CMADM #### [facility] [address] [place] [address] Dr. Jorge L Carey Creatinine [Mass/Vol] 1.04 mg/dL Normal 0.70-1.30 [facility] Comment on above: Performed By: #### C MP, CMADM #### [facility] [address] [place] [address] Dr. Jorge L Carey EGFR-AF NEPALESE >60 Normal >=60 [facility] Comment on above: Performed By: #### C MP, CMADM #### [facility] [address] [address] [address] Jorge L Carye EGFR-NON AF NEPALESE >60 Normal >=60 [facility] Comment on above: Performed By: #### C IGGY, CMADM #### [facility] [address] [address] [address] Jorge L Carey Globulin (S) [Mass/Vol] 3.1 g/dL Normal [facility] Comment on above: Performed By: #### C MP, CMADM #### [facility] [address] [address] [address] Jorge L Carey Glucose [Mass/Vol] 140 mg/dL Critically high 74-106 [facility] Comment on above: Performed By: #### C MP, CMADM #### [facility] [address] [address] [address] Jorge L Carey Potassium [Moles/Vol] 3.7 mmol/L Normal 3.5-5.1 [facility] Comment on above: Performed By: #### C IGGY, CMADM #### [facility] [address] [place] [address] Dr. Jorge L Carey Protein [Mass/Vol] 6.8 g/dL Normal 6.4-8.2 [facility] Comment on above: Performed By: #### C IGGY, CMADM #### [facility] [address] [place] [address] Dr. Jorge L Carey Sodium [Moles/Vol] 138 mmol/L Normal 136-145 [facility] Comment on above: Performed By: #### C IGGY, CMADM #### [facility] [address] [place] [address] Dr. Jorge L Carey Urea nitrogen [Mass/Vol] 13.0 mg/dL Normal 7.0-18.0 [facility] Comment on above: Performed By: #### C IGGY, CMADM #### [facility] [address] [place] [address] Dr. Jorge L Carey Urea nitrogen/Creatinine [Mass ratio] 12.5 mg/mg Normal [facility] Comment on above: Performed By: #### C IGGY, CMADM #### [facility] [address] [address] [address] Jorge L Carey TROPONIN, HIGH SENSITIVITYon 07-01-2022 HSTROP 10.9 pg/mL Normal 4.0-76.1 [facility] Comment on above: Result Comment: CUT- OFF POINTS HAVE BEEN ESTABLISHED BASED ON THE FOURTH UNIVERSAL DEFINITIONS OF MYOCARDIAL INFARCTION. THE UPPER REFERENCE LIMIT (URL) OF TROPONIN, DEFINED THE 99TH PERCENTILE OF cTnI DISTRIBUTION IN A REFERENCE POPULATION, HAS BEEN CONFIRMED THE DECISION THRESHOLD FOR CT DIAGNOSIS. Performed By: #### B MP, LIPID, ALT, URIC #### [facility] [address] [place] [address] Dr. Jorge L Carey XR CHEST 1 [...] FILIPPO MASTERS Date: 2022-07-01 19:57 Normal [facility] CBC AUTO DIFFon 04-18-2022 BASO # 0.0 103/ul Normal 0.0-0.1 [facility] Comment on above: Performed By: #### C BC #### [facility] [address] [place] [address] Dr. Jorge L Carey Basophils/100 WBC (Bld) 0.7 % Normal 0.2-2.0 [facility] Comment on above: Performed By: #### C BC #### [facility] [address] [place] [address] Dr. Jorge L Carey EO # 0.2 103/ul Normal 0.0-0.7 [facility] Comment on above: Performed By: #### C BC #### [facility] [address] [place] [address] Dr. Jorge L Carey Eosinophils/100 WBC (Bld) 2.6 % Normal 0.9-7.0 [facility] Comment on above: Performed By: #### C BC #### [facility] [address] [place] [address] Dr. Jorge L Carey Erythrocyte distribution width (RBC) [Ratio] 11.5 % Normal 11.0-15.0 [facility] Comment on above: Performed By: #### C BC #### [facility] [address] [place] [address] Dr. Jorge L Carey Hematocrit (Bld) [Volume fraction] 44.7 % Normal 42.0-54.0 [facility] Comment on above: Performed By: #### C BC #### [facility] [address] [place] [address] Dr. Jorge L Carey Hemoglobin (Bld) [Mass/Vol] 15.5 g/dL Normal 14.0-18.0 [facility] Comment on above: Performed By: #### C BC #### [facility] [address] [place] [address] Dr. Jorge L Carey IG # 0.01 10e3/ul Normal 0.00-0.03 [facility] Comment on above: Performed By: #### C BC #### [facility] [address] [place] [address] Dr. Jorge L Carey IG % 0.2 % Normal 0.0-0.5 [facility] Comment on above: Performed By: #### C BC #### [facility] [address] [place] [address] Dr. Jorge L Carey LYMPH # 1.3 103/ul Normal 1.2-3.8 [facility] Comment on above: Performed By: #### C BC #### [facility] [address] [place] [address] Dr. Jorge L Carey Lymphocytes/100 WBC (Bld) 21.3 % Normal 20.5-60.0 [facility] Comment on above: Performed By: #### C BC #### [facility] [address] [place] [address] Dr. Jorge L Carey MANUAL DIFF REQ NO Normal The [facility] Comment on above: Performed By: #### C BC #### [facility] [address] [place] [address] Dr. Jorge L Carey MCH (RBC) [Entitic mass] 30.1 pg Normal 25.9-34.0 [facility] Comment on above: Performed By: #### C BC #### [facility] [address] [place] [address] Dr. Jorge L Carey MCHC (RBC) [Mass/Vol] 34.7 g/dL Normal 29.9-35.2 [facility] Comment on above: Performed By: #### C BC #### [facility] [address] [place] [address] Dr. Jorge L Carey MCV (RBC) [Entitic vol] 86.8 fL Normal 80.0-94.0 [facility] Comment on above: Performed By: #### C BC #### [facility] [address] [place] [address] Dr. Jorge L Carey MONO # 0.4 103/ul Normal 0.3-0.8 [facility] Comment on above: Performed By: #### C BC #### [facility] [address] [place] [address] Dr. Jorge L Carey Monocytes/100 WBC (Bld) 7.2 % Normal 1.7-12.0 [facility] Comment on above: Performed By: #### C BC #### [facility] [address] [place] [address] Dr. Jorge L Carey NEUT # 4.1 103/ul Normal 1.4-6.5 [facility] Comment on above: Performed By: #### C BC #### [facility] [address] [place] [address] Dr. Jorge L Carey Neutrophils/100 WBC (Bld) 68.0 % Normal 43.0-75.0 [facility] Comment on above: Performed By: #### C BC #### [facility] [address] [place] [address] Dr. Jorge L Carey Platelet mean volume (Bld) [Entitic vol] 12.0 fL Normal 9.5-13.5 [facility] Comment on above: Performed By: #### C BC #### [facility] [address] [place] [address] Dr. Jorge L Carey PLT 163 103/ul Normal 150-450 [facility] Comment on above: Performed By: #### C BC #### [facility] [address] [place] [address] Dr. Jorge L Carey RBC 5.15 106/ul Normal 4.70-6.10 [facility] Comment on above: Performed By: #### C BC #### [facility] [address] [place] [address] Dr. Jorge L Carey WBC 6.1 103/ul Normal 4.0-11.0 [facility] Comment on above: Performed By: #### C BC #### [facility] [address] [place] [address] Dr. Jorge L Carey GLYCOHEMOGLOBIN A1Con 2021 ADA RECOMMENDATION SEE BELOW Normal [facility] Comment on above: Result Comment: ADA RECOMMENDED LIMIT 4.0 - 6.0 ADA THERAPEUTIC TARGET < 7.0 ACTION SUGGESTED > 7.0 Performed By: #### B MP, LIPID, ALT, URIC #### [facility] [address] [place] [address] Dr. Jorge L Carey Glucose [Mass/Vol] 146 mg/dL Normal [facility] Comment on above: Performed By: #### B MP, LIPID, ALT, URIC #### [facility] [address] [place] [address] Dr. Jorge L Carey HbA1c (Bld) [Mass fraction] 6.7 % Critically high 4.5-6.2 [facility] Comment on above: Performed By: #### B MP, LIPID, ALT, URIC #### [facility] [address] [place] [address] Dr. Jorge L Carey LIPID PROFILEon 04-18-2022 CHOL-HDL RATIO NORM SEE BELOW Normal [facility] Comment on above: Result Comment: 3.3 - 4.4 LOW RISK 4.4 - 7.1 AVERAGE RISK 7.1 - 11.0 MODERATE RISK >11.0 HIGH RISK Performed By: #### B MP, LIPID, ALT, URIC #### [facility] [address] [place] [address] Dr. Jorge L Carey Cholesterol [Mass/Vol] 117 mg/dL Normal <=200 [facility] Comment on above: Performed By: #### B MP, LIPID, ALT, URIC #### [facility] [address] [address] [address] Jorge L Carey Cholesterol in HDL [Mass/Vol] 48 mg/dL Normal 40-60 [facility] Comment on above: Performed By: #### B MP, LIPID, ALT, URIC #### [facility] [address] [address] [address] Jorge L Carey Cholesterol in LDL [Mass/Vol] 50.6 mg/dL Normal [facility] Comment on above: Performed By: #### B MP, LIPID, ALT, URIC #### [facility] [address] [address] [address] Jorge L Carey Cholesterol.total/Cho lesterol in HDL [Mass ratio] 2.4 {ratio} Normal [facility] Comment on above: Performed By: #### B MP, LIPID, ALT, URIC #### [facility] [address] [address] [address] Jorge L Carey HDL NORMAL > or = 60 mg/dl - LOW CARDIOVASCULAR RISK <40 mg/dl - HIGH CARDIOVASCULAR RISK Normal [facility] Comment on above: Performed By: #### B MP, LIPID, ALT, URIC #### [facility] [address] [address] [address] Jorge L Carey LDL CALC NORMAL SEE BELOW Normal [facility] Comment on above: Result Comment: <100 mg/dl OPTIMAL 100 - 129 mg/dl NEAR OR ABOVE OPTIMAL 130 - 159 mg/dl BORDERLINE HIGH 160 - 189 mg/dl HIGH >190 mg/dl VERY HIGH Performed By: #### B MP, LIPID, ALT, URIC #### [facility] [address] [address] [address] Jorge L Carey Triglyceride [Mass/Vol] 92 mg/dL Normal <=150 [facility] Comment on above: Performed By: #### B MP, LIPID, ALT, URIC #### [facility] [address] [address] [address] Jorge L Carey VLDL CALC 18.4 mg/dL Normal [facility] Comment on above: Performed By: #### B MP, LIPID, ALT, URIC #### [facility] [address] [address] [address] Jorge L Carey MICROALBUMIN, RAND URon 11-0 mALB <1.3 Normal <=30.0 [facility] Comment on above: Performed By: #### M ALBR #### [facility] [address] [address] [address] Jorge L Carey PROF CHEM 8 (BAS METB)on Anion gap [Moles/Vol] 9.5 mmol/L Normal [facility] Comment on above: Performed By: #### B MP, LIPID, ALT, URIC #### [facility] [address] [address] [address] Jorge L Carey Calcium [Mass/Vol] 8.6 mg/dL Normal 8.5-10.1 [facility] Comment on above: Performed By: #### B MP, LIPID, ALT, URIC #### [facility] [address] [place] [address] Dr. Jorge L Carey Chloride [Moles/Vol] 102 mmol/L Normal 98-107 [facility] Comment on above: Performed By: #### B MP, LIPID, ALT, URIC #### [facility] [address] [address] [address] Jorge L Carey CO2 [Moles/Vol] 30.8 mmol/L Normal 21.0-32.0 [facility] Comment on above: Performed By: #### B MP, LIPID, ALT, URIC #### [facility] [address] [address] [address] Jorge L Carey Creatinine [Mass/Vol] 0.95 mg/dL Normal 0.70-1.30 [facility] Comment on above: Performed By: #### B MP, LIPID, ALT, URIC #### [facility] [address] [address] [address] Jorge L Carey EGFR-AF NEPALESE >60 Normal >=60 [facility] Comment on above: Performed By: #### B MP, LIPID, ALT, URIC #### [facility] [address] [address] [address] Jorge L Carey EGFR-NON AF NEPALESE >60 Normal >=60 [facility] Comment on above: Performed By: #### B MP, LIPID, ALT, URIC #### [facility] [address] [address] [address] Jorge L Carey Glucose [Mass/Vol] 142 mg/dL Critically high 74-106 T [facility] Comment on above: Performed By: #### B MP, LIPID, ALT, URIC #### [facility] [address] [place] [address] Dr. Jorge L Carey Potassium [Moles/Vol] 4.3 mmol/L Normal 3.5-5.1 [facility] Comment on above: Performed By: #### B MP, LIPID, ALT, URIC #### [facility] [address] [place] [address] Dr. Jorge L Carey Sodium [Moles/Vol] 138 mmol/L Normal 136-145 [facility] Comment on above: Performed By: #### B MP, LIPID, ALT, URIC #### [facility] [address] [place] [address] Dr. Jorge L Carey Urea nitrogen [Mass/Vol] 14.0 mg/dL Normal 7.0-18.0 [facility] Comment on above: Performed By: #### B MP, LIPID, ALT, URIC #### [facility] [address] [place] [address] Dr. Jorge L Carey Urea nitrogen/Creatinine [Mass ratio] 14.7 mg/mg Normal [facility] Comment on above: Performed By: #### B MP, LIPID, ALT, URIC #### [facility] [address] [place] [address] Dr. Jorge L Carey [facility] 04-18-2022 ALT [Catalytic activity/Vol] 27 U/L Normal 16-63 [facility] Comment on above: Performed By: #### B MP, LIPID, ALT, URIC #### [facility] [address] [place] [address] Dr. Jorge L Carey URIC ACID SERUMon 04-18-2022 Urate [Mass/Vol] 5.5 mg/dL Normal 3.5-7.2 [facility] Comment on above: Performed By: #### B MP, LIPID, ALT, URIC #### [facility] [address] [address] [address] Jorge L Carey GLYCOHEMOGLOBIN A1Con 2021 ADA RECOMMENDATION SEE BELOW Normal [facility] Comment on above: Result Comment: ADA RECOMMENDED LIMIT 4.0 - 6.0 ADA THERAPEUTIC TARGET < 7.0 ACTION SUGGESTED > 7.0 Performed By: #### B MP, LIPID, ALT, URIC #### [facility] [address] [address] [address] Jorge L Carey Glucose [Mass/Vol] 160 mg/dL Normal [facility] Comment on above: Performed By: #### B MP, LIPID, ALT, URIC #### [facility] [address] [address] [address] Jorge L Carey HbA1c (Bld) [Mass fraction] 7.2 % Critically high 4.5-6.2 [facility] Comment on above: Performed By: #### B MP, LIPID, ALT, URIC #### [facility] [address] [address] [address] Jorge L Carey GLYCOHEMOGLOBIN A1Con 2021 ADA RECOMMENDATION ADA THERAPEUTIC TARGET 6.0 - 7.0 ACTION SUGGESTED > 7.0 Normal [facility] Comment on above: Performed By: #### B MP, LIPID, ALT, URIC #### [facility] [address] [address] [address] Jorge L Carey Glucose [Mass/Vol] 177 mg/dL Normal [facility] Comment on above: Performed By: #### B MP, LIPID, ALT, URIC #### [facility] [address] [address] [address] Jorge L Carey HbA1c (Bld) [Mass fraction] 7.8 % Critically high <=6.0 [facility] Comment on above: Performed By: #### B MP, LIPID, ALT, URIC #### [facility] [address] [address] [address] Jorge L Carey [facility] 09-17-2020 Glucose [Mass/Vol] 151 mg/dL Normal [facility] Comment on above: Result Comment: PERF ORMED BY: [place] [address] PATHOLOGIST DRUG AND ALCOHOL COUNSELLOR SUSAN SEXTON M.D. Performed By: #### O MOE GLYCO #### [facility] [address] HbA1c (Bld) [Mass fraction] 6.9 % High 4.3-5.6 [facility] Comment on above: Result Comment: Incr eased risk for diabetes: 5.7 - 6.4 diabetes: >6.4 glycemic control for adults with diabetes: <7.0 Performed By: #### O MOE GLYCO #### [facility] [address] [place] [address] Vital Signs Date Time Vital Sign Value Performing Clinician Facility 02-18-2024 09:37-0400 Body height 190.5 cm [facility] 02-18-2024 09:37-0400 Body mass index (BMI) [Ratio] 32.1 kg/m2 [facility] 02-18-2024 09:37-0400 Body weight 116.74 kg [facility] 02-18-2024 09:37-0400 Diastolic blood pressure 81 mm[Hg] [facility] 02-18-2024 09:37-0400 Heart rate 76 /min [facility] 02-18-2024 09:37-0400 Respiratory rate 12 /min [facility] 02-18-2024 09:37-0400 Systolic blood pressure 136 mm[Hg] [facility] 10-18-2023 09:06-0400 Body height 190.5 cm [facility] 10-18-2023 09:06-0400 Body mass index (BMI) [Ratio] 31.8 kg/m2 [facility] 10-18-2023 09:06-0400 Body weight 115.32 kg [facility] 10-18-2023 09:06-0400 Diastolic blood pressure 77 mm[Hg] [facility] 10-18-2023 09:06-0400 Heart rate 80 /min [facility] 10-18-2023 09:06-0400 Respiratory rate 12 /min [facility] 10-18-2023 09:06-0400 Systolic blood pressure 116 mm[Hg] [facility] 07-08-2023 09:00-0500 Body height 190.5 cm Bogdan Ball Other [facility] Other 07-08-2023 09:00-0500 Body mass index (BMI) [Ratio] 32.62 kg/m2 Bogdan Ball Other [facility] Other 07-08-2023 09:00-0500 Body weight 118.39 kg Bogdan Ball Other [facility] Other 07-08-2023 09:00-0500 Diastolic blood pressure 81 mm[Hg] Bogdan Ball Other [facility] Other 07-08-2023 09:00-0500 Respiratory rate 12 /min Bogdan Ball Other [facility] Other 07-08-2023 09:00-0500 Systolic blood pressure 117 mm[Hg] Bogdan Ball Other [facility] Other 05-01-2023 08:30-0500 Body height 190.5 cm Bogdan Ball Other [facility] Other 05-01-2023 08:30-0500 Body mass index (BMI) [Ratio] 32.19 kg/m2 Bogdan Ball Other [facility] Other 05-01-2023 08:30-0500 Body weight 116.85 kg Bogdan Ball Other [facility] Other 05-01-2023 08:30-0500 Diastolic blood pressure 81 mm[Hg] Bogdan Ball Other [facility] Other 05-01-2023 08:30-0500 Respiratory rate 12 /min Bogdan Ball Other [facility] Other 05-01-2023 08:30-0500 Systolic blood pressure 135 mm[Hg] Bogdan Ball Other [facility] Other 12-26-2022 08:30-0400 Body height 190.5 cm Bogdan Ball Other [facility] Other 12-26-2022 08:30-0400 Body mass index (BMI) [Ratio] 31.54 kg/m2 Bogdan Ball Other [facility] Other 12-26-2022 08:30-0400 Body weight 114.49 kg Bogdan Ball Other [facility] Other 12-26-2022 08:30-0400 Diastolic blood pressure 85 mm[Hg] Bogdan Ball Other [facility] Other 12-26-2022 08:30-0400 Respiratory rate 12 /min Bogdan Ball Other [facility] Other 12-26-2022 08:30-0400 Systolic blood pressure 139 mm[Hg] Bogdan Ball Other [facility] [facility] Other 11-09-2022 10:58-0400 Blood Pressure Location Hola GARCIA [facility] 11-09-2022 10:58-0400 Diastolic blood pressure 80 mm[Hg] Hola GARCIA [facility] 11-09-2022 10:58-0400 Heart rate 78 /min Hola GARCIA [facility] 11-09-2022 10:58-0400 Respiratory rate 16 /min Hola GARCIA [facility] 11-09-2022 10:58-0400 Systolic blood pressure 130 mm[Hg] Hola GARCIA [facility] 10-05-2022 12:15-0400 Body height 190.5 cm Bogdan Ball Other [facility] [facility] Other 10-05-2022 12:15-0400 Body mass index (BMI) [Ratio] 31.17 kg/m2 Bogdan Ball Other [facility] Other 10-05-2022 12:15-0400 Body weight 113.13 kg Bogdan Ball Other [facility] Other 10-05-2022 12:15-0400 Diastolic blood pressure 95 mm[Hg] Bogdan Ball Other [facility] Other 10-05-2022 12:15-0400 Respiratory rate 12 /min Bogdan Ball Other [facility] Other 10-05-2022 12:15-0400 Systolic blood pressure 168 mm[Hg] Bogdan Ball Other [facility] Other 08-23-2022 08:30-0500 Body height 190.5 cm Bogdan Ball Other [facility] Other 08-23-2022 08:30-0500 Body mass index (BMI) [Ratio] 31.42 kg/m2 Bogdan Ball Other [facility] Other 08-23-2022 08:30-0500 Body weight 114.04 kg Bogdan Ball Other [facility] Other 08-23-2022 08:30-0500 Diastolic blood pressure 86 mm[Hg] Bogdan Ball Other [facility] Other 08-23-2022 08:30-0500 Respiratory rate 12 /min Bogdan Ball Other [facility] Other 08-23-2022 08:30-0500 Systolic blood pressure 132 mm[Hg] Bogdan Ball Other [facility] Other 10-06-2021 08:14-0400 Blood Pressure Location Hola GARCIA [facility] 10-06-2021 08:14-0400 Diastolic blood pressure 98 mm[Hg] Hola GARCIA [facility] 10-06-2021 08:14-0400 Heart rate 78 /min Hola GARCIA [facility] 10-06-2021 08:14-0400 Systolic blood pressure 145 mm[Hg] Hola GARCIA [facility] Encounters Encounter Date Encounter Type Care Provider Facility Start: 05-04-2024 End: 05-04-2024 ambulatory Dm C[facility] Start: 04-20-2024 End: 04-20-2024 ambulatory Dm Cyr MD Facility:[facility] Start: 04-03-2024 ambulatory Hola Cid ty:[facility] Start: 02-18-2024 End: 02-18-2024 ambulatory [facility] Work Phone: Start: 02-18-2024 End: 02-18-2024 Patient encounter procedure [facility] Physician [facility] Work Phone: Start: 02-11-2024 Non-patient / Non-visit [facility]ician [facility] Work Phone: Start: 10-18-2023 End: 10-18-2023 ambulatory [facility] Work Phone: Start: 10-18-2023 End: 10-18-2023 Patient encounter procedure [facility] Work Phone: Start: 10-12-2023 Non-patient / Non-visit [facility] Physician [facility] Work Phone: Start: 08-23-2023 Non-patient / Non-visit [facility] Physician [facility] Work Phone: Start: 08-19-2023 End: 08-19-2023 ambulatory Dm Cyr MD Facility: [facility] Start: 08-16-2023 Non-patient / Non-visit [facility] Work Phone: Start: 07-30-2023 Non-patient / Non-visit [facility] Work Phone: Start: 07-29-2023 End: 07-29-2023 ambulatory Bogdan Green Other [facility] Other Start: 07-29-2023 Telephone encounter Bogdan Green [facility] Start: 07-29-2023 End: 07-29-2023 ambulatory Dm Cyr MD Facility:[facility] Start: 07-15-2023 End: 07-15-2023 ambulatory Dm Cyr MD Facility:[facility] Start: 07-08-2023 End: 07-08-2023 ambulatory Bogdan Green Other [facility] Other Start: 07-08-2023 Office outpatient vi sit 25 minutes Bogdan Ball [facility] Start: 06-24-2023 End: 06-24-2023 ambulatory mD Cyr MD Facility: [facility] Start: 05-20-2023 End: 05-20-2023 ambulatory Dm Cyr MD [facility] Start: 05-10-2023 End: 05-10-2023 ambulatory Bogdan Green Other [facility] Other Start: 05-10-2023 Office outpatient vi sit 15 minutes Bogdan Ball [facility] Start: 05-01-2023 End: 05-01-2023 ambulatory Bogdan Green Other [facility] Other Start: 05-01-2023 Patient encounter procedure Bogdan Ball [facility] Start: 04-24-2023 End: 04-24-2023 ambulatory Bogdan Green Other [facility] Other Start: 04-24-2023 Telephone encounter Bogdan Green [facility] Start: 02-25-2023 End: 02-25-2023 ambulatory Bogdan Peter Other [facility] Other Start: 02-25-2023 Telephone encounter Bogdan Green [facility] Start: 12-27-2022 End: 12-27-2022 ambulatory Bogdan Green Other [facility] Other Start: 12-27-2022 Telephone encounter Bogdan Ball [facility] Start: 12-26-2022 End: 12-26-2022 ambulatory Bogdan Ball Other [facility] Other Start: 12-26-2022 Office outpatient vi sit 25 minutes Bogdan Ball [facility] Start: 11-19-2022 End: 11-19-2022 ambulatory Bogdan Ball Other [facility] Other Start: 11-19-2022 Telephone encounter Bogdan Ball [facility] Start: 11-09-2022 End: 11-09-2022 Patient encounter procedure Hola Rushing JOSE [facility] Start: 10-22-2022 End: 10-22-2022 ambulatory Bogdan Ball Other [facility] Other Start: 10-22-2022 Telephone encounter Bogdan Ball [facility] Start: 10-18-2022 End: 10-18-2022 ambulatory Bogdan Ball Other [facility] Other Start: 10-18-2022 Telephone encounter Bogdan Ball [facility] Start: 10-05-2022 End: 10-05-2022 ambulatory Bogdan Ball Other [facility] Other Start: 10-05-2022 Office outpatient vi sit 15 minutes Bogdan Ball [facility] Start: 09-27-2022 End: 09-27-2022 ambulatory Bogdan Ball Other [facility] Other Start: 09-27-2022 Telephone encounter Bogdan Ball [facility] Start: 09-25-2022 End: 09-25-2022 ambulatory Bogdan Ball Other [facility] Other Start: 09-25-2022 Telephone encounter Bogdan Ball [facility] Start: 09-21-2022 End: 09-21-2022 ambulatory Bogdan Ball Other [facility] Other Start: 09-21-2022 Telephone encounter Bogdan Ball [facility] Start: 08-23-2022 End: 08-23-2022 ambulatory Bogdan Ball Other [facility] Other Start: 08-23-2022 Office outpatient vi sit 25 minutes Bogdan Ball [facility] Start: 08-17-2022 End: 08-18-[address] BOGDAN GREEN Facility:[facility] Start: 08-14-2022 End: 08-14-2022 ambulatory Bogdan Green Other [facility] Other Start: 08-14-2022 Telephone encounter Bogdan HORTON [facility] Start: 07-01-2022 End: 07-01-[address] BOGDAN GREEN Facility:[facility] Start: 04-25-2022 Adult health examination Bogdan Green Other [facility] Other Start: 04-18-2022 End: 04-19-[address] BOGDAN GREEN Facility:[facility] Start: 01-20-2022 End: 01-21-2022 ambulatory NONE LISTED REQUEST Facility:[facility] Start: 10-06-2021 End: 10-06-2021 Patient encounter procedure Hola GARCIA [facility] Start: 09-16-2021 End: 09-17-[address] HOLA GARCIA . Facility:[facility] Start: 09-15-2021 End: 09-16-2021 ambulatory NONE LISTED REQUEST Facility:[facility] Start: 08-29-[address] BOGDAN GREEN Facili ty:[facility] Procedures Date Procedure Procedure Detail Performing Clinician Start: 09-16-[address] NORRIS GREEN Comment on above: Performed By: #### B MP, LIPID, ALT, URIC #### [facility] [address] [place] [address] Dr. Jorge L Carey Start: 03-29-2017 General [...] Care Activity Detail Author US Heart Transthoracic [facility] XR Chest 2 Views [facility] Immunizations Immunization Date Immunization Notes Care Provider Fa tri 04-29-2023 zoster vaccine recombinant Bogdan Green Other [facility] 04-26-2023 influenza virus vaccine, unspecified formulation [facility] 04-26-2023 influenza, high dose seasonal, preservative-free Bogdan Green Other [facility] Other 02-26-2023 zoster vaccine recombinant Bogdan Green Other [facility] 04-25-2022 pneumococcal 20-alber nt conjugate vaccine Hola GARCIA [facility] 04-16-2022 influenza virus vaccine, split virus (incl. purified surface antigen) Bogdan Green Other [facility] Other 04-16-2022 influenza virus vaccine, unspecified formulation Hola GARCIA [facility] 03-23-2022 SARS-CoV-2 (COVID-19 ) [id number] Hola GARCIA [facility] 05-08-2021 SARS-CoV-2 (COVID-19 ) mRNA BNT-162b2 vax Hola GARCIA [facility] 04-22-2021 influenza virus vaccine, split virus (incl. purified surface antigen) Bogdan Green Other [facility] Other 04-22-2021 influenza virus vaccine, unspecified formulation Hola GARCIA [facility] 03-30-2021 influenza virus vaccine, unspecified formulation Hola GARCIA [facility] 09-16-2020 COVID-19, mRNA, LNP- S, PF, 30 mcg/0.3 mL dose; 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: [Pfizer-BioNTech COVID-19 Vaccine] Hola GARCIA [facility] Comment on above: Reason for Medicatio n: Prophylaxis 08-26-2020 COVID-19, mRNA, LNP- S, PF, 30 mcg/0.3 mL dose; 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: [Pfizer-BioNTech COVID-19 Vaccine] Hola GARCIA [facility] Comment on above: Reason for Medicatio n: Prophylaxis 04-16-2020 influenza virus vaccine, split virus (incl. purified surface antigen) Bogdan Green Other [facility] Other 04-16-2020 influenza virus vaccine, unspecified formulation Hola GARCIA [facility] pneumococcal Conjuga te, unspecified formulation; 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: [Need for prophylactic vaccination against Streptococcus pneumoniae (pneumococcus)] Bogdan Green Other [facility] Other Payers Date Payer Category Payer Medicare 2022 Unknown 2021 Medicare [id number] 2020 Unknown [id number] 1959 Medicare [id number] 1959 Self-pay [id number] 1959 Unknown [id number] 1959 Unknown [id number] 1956 Unknown [id number] 2.16.84 [id number] 1956 Unknown [id number] 2.16.84 [id number] 1956 Unknown [id number] 2.16.84 [id number] 1956 Unknown [id number] 2.16.84 [id number] 1956 Unknown [id number] 2.16.84 [id number] 1956 Unknown [id number] 2.16.8 [id number] 1956 Unknown [id number] 2.16. [id number] 1956 Unknown [id number] 2.16. [id number] 1956 Unknown [id number] 2.16. [id number] 1956 Unknown [id number] 2.16. [id number] 1956 Unknown [id number] 2.16. [id number] 1956 Unknown [id number] 2.16. [id number] 1955 Unknown [id number] [employer] Blue Shield [id number] Self-pay Self Pay [id number] Unknown [id number] Unknown [id number] Social History Date Type Detail Facility Start: 10-06-2021 End: 07-27-2023 Tobacco smoking status Never smoked tobacco (finding) [facility] Sex Assigned At Male [facility] Tobacco smoking status Never [facility] Start: 1955 Sex Assigned At Male F [facility] Equipment Procedure Code Equipment Code Equipment [...] 11-09-2022 Functional Status N/A [facility] Clinical Notes 10-06-2021 to 07-29-2023 Note Date & Type Note Facility 07-29-2023 Evaluation note Encounter Date Diagnosis Assessment Notes Jul, Type 2 diabetes mellitus with hyperglycemia , without long-term current use of insulin (ICD-10 - E11.65) [facility] Other 01-22-2024 Evaluation note* Encounter Date Diagnosis [...] index [BMI] 32.0-32.9, adult (ICD-10 - Z68.32) [facility] Other 11-24-2023 Evaluation note* Encounter Date Diagnosis [...] Microalbumin, Dilated eye exam and Foot exam [facility] Other 11-15-2023 Evaluation note* Encounter Date Diagnosis [...] flares Sep, Thrombocytopenia, unspecified (ICD-10 - D69.6) [facility] Other 11-15-2023 Evaluation note* Encounter Date Diagnosis [...] (prostate specific antigen) (ICD-10 - Z12.5) Yearly JOHNANE and PSA Taking Proscar, requires to double PSA Apr, Hx of gout (ICD-10 - Z87.39) DIet instructions reviewed. No acute flares Sep, Thrombocytopenia, unspecified (ICD-10 - D69.6) [facility] Other 11-08-2023 Evaluation note* Encounter Date Diagnosis Assessment Notes Treatment Notes Treatment Clinical Notes Apr, Screening PSA (prostate specific antigen) (ICD-10 - Z12.5) Apr, Type 2 diabetes mellitus with hyperglycemia, without long-term current use of insulin (ICD-10 - E11.65) Apr, Elevated cholesterol (ICD-10 - E78.00) Apr, Primary hypertension (ICD-10 - I10) Sep, Thrombocytopenia, unspecified (ICD-10 - D69.6) Thrombocytopenia [facility] Other 07-12-2023 Evaluation note* Encounter Date Diagnosis [...] [BMI] 31.0-31.9, adult (ICD-10 - Z68.31) Dec, 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 Where to find more information [employer]: www.cancer.org [employer]: www.auanet.org Contact a health care [...] provider. Document Revised: 11/27/2021 Document Reviewed: 11/27/2021 simfy Patient Education 2022 [employer]. Follow Up Care 10/06/2021 08:40:21 With:JOSE MCMANUS, Hola Rushing, URL Address: [facility] [address] , [place] [address]- When: Unknown [facility] 05-08-2023 Evaluation note* Encounter Date Diagnosis Assessment Notes Treatment Notes Treatment Clinical Notes October, Primary hypertension (ICD-10 - I10) [facility] Other 05-04-2023 Evaluation note* Encounter Date Diagnosis Assessment Notes Treatment Notes Treatment Clinical Notes October, Primary hypertension (ICD-10 - I10) [facility] Other 04-21-2023 Evaluation note* Encounter Date Diagnosis [...] and Glimepiride appear to be controlling BS. 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.4) [facility] Other 04-11-2023 Evaluation note* Encounter Date Diagnosis Assessment Notes Treatment Notes Treatment Clinical Notes Sep, Type 2 diabetes mellitus with hyperglycemia, without long-term current use of insulin (ICD-10 - E11.65) [facility] Other 04-07-2023 Evaluation note* Encounter Date Diagnosis Assessment Notes Treatment Notes Treatment Clinical Notes Sep, Type 2 diabetes mellitus with hyperglycemia (ICD-10 - E11.65) [facility] Other 03-09-2023 Evaluation note* Encounter Date Diagnosis [...] Reviewed red flag symptoms and nerve impingement [facility] Other 02-28-2023 Evaluation note* Encounter Date Diagnosis Assessment Notes Treatment Notes Treatment Clinical Notes Jul, Type 2 diabetes mellitus with hyperglycemia, without long-term current use of insulin (ICD-10 - E11.65) [facility] Other 04-22-2022 Hospital Discharge instructions Patient Education [...] urethra. Follow these instructions at home: Take [id number] and prescription medicines only as told by [...] 06/03/2006 Document Revised: 04/28/2019 Document Reviewed: 07/08/2017 simfy Patient Education 2020 [employer]. Follow Up Care 10/03/2020 15:00:49 With:Hola GARCIA MD, URL Address: [facility] [address], [place] [address] [id number] When:10/06/2022 [facility] evaluation + Plan note Future Appointments Appointment Date:10/12/2022 08:00:00 AM Scheduled Provider:Hola GARCIA MD Location:[facility] Appointment Type:URO Office Visit Diagnostic Tests Pending * PSA Total 10/06/21 [facility] evaluation + Plan note Future Appointments Appointment Date:11/18/2023 08:45:00 AM Scheduled Provider:Hola GARCIA MD Location:[facility] Appointment Type:URO Office Visit Diagnostic Tests Pending * PSA Free & Total 11/09/22 [facility] evaluation [employer] Other evaluation noteNo Information[facility] Other evaluation note* Diagnosis Onset Date Resolution Status Elevated cholesterol acute Gastroesophageal reflux dise ase with esophagitis without hemorrhage acute Obesity acute Primary hypertension acute Spondylosis without myelopat hy or radiculopathy, lumbar region acute Type 2 diabetes mellitus with hyperglycemia [facility] Work Phone: Evaluation note* Diagnosis Onset Date Resolution Status Elevated cholesterol acute Gastroesophageal reflux dise ase with esophagitis without hemorrhage acute Primary hypertension acute Spondylosis without myelopat hy or radiculopathy, lumbar region acute Type 2 diabetes mellitus with hyperglycemia acute [facility] Work Phone: History general Narrative - Reported* [...] CYSTOSCOPY 2016 Hospitalization History SEE SURGICAL HX [facility] Other History general Narrative - ReportedNort [employer] Other History general Narrative - Reported* Type [...] CYSTOSCOPY 2016 Hospitalization History SEE SURGICAL HX [facility] Other Hospital course Narrative No data available for this section [facility] [employer] progress note No data available for this section [facility] [employer] Summary Purpose Family History No Family History [...] well ness visit, initial (Z00.00) Referral Organization [facility] Referring Provider First Name Bogdan Referring Provider Last Name Peter Referring Provider Specialty Internal Me dicine Referred Organization [facility] Referred Provider Swapnil French Referred Address [address], [place],[address] Referred Provider Specialty Pain Medicin e Referral [...] Notes Include XR lumbar sp ine f: [phone] Chief Complaint and Reason for Visit Chief [...] section and content) DATE CREATED AUTHOR 07/30/2021 [facility] DATE CREATED AUTHOR AUTHOR'S ORGANIZ ATION 08/22/2022 [facility] DATE CREATED AUTHOR AUTHOR'S ORGANIZ ATION 11/14/2023 [facility] DATE CREATED AUTHOR AUTHOR'S ORGANIZ ATION 05/09/2024 [facility] REASON FOR VISIT (unrecogniz ed section and content) BS readingsElevated blood cifuentes [id number] [facility] ResultsBP readingsrefillelevated BPMedication4 MONTH FOLLOW UP [...] BE BASED ON THE PRIMARY CLINICAL RECORDS. [facility] [employer] [facility]. provides no warranty or guarantee of the accuracy or completeness of information in this document.
== END 2024-05-18 10:56 | disposition home or self-care (01) ==
LOC: RAD 10:58
PROVIDERS: PCP Internal Medicine; Visit Provider Nurse Practitioner
DX: M47.816 Spondylosis without myelopathy or radiculopathy, lumbar region (principal); M51.369 Other intervertebral disc degeneration, lumbar region without mention of lumbar back pain or lower extremity pain
CPT/HCPCS: 72114

== ENCOUNTER 2024-06-01 13:34 | Outpatient (OUT) | payer MEDICARE, BC, SELFPAY ==
--- OUTSIDE RECORDS SUMMARY | 2024-06-01 13:53 | XMS_ITS | CCD ---
Author Organization [facility] Care Team Providers Care Community Health Educator Name Role Phone BOGDAN GREEN Primary Care [...] or physicia Propensity to adverse reactions Comment:Done BombBomb Other (1 source) No Known Medication Allergies; 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: [No Known Medication Allergies] Propensity to adverse reactions (disorder) [facility] Repository Medications Current Medications Medication [...] day(s), # 90 tab(s), Refills(s) 3, Pharmacy: [facility]/pharmacy #[id number], 195, cm, 11/09/22 11:00:00 EDT, Height/Length Dosing, 111, kg, 11/09/22 11:00:00 EDT, Weight Dosing Start Date: 11/09/22 Stop Date: 11/04/23 Status: Ordered Start: 10-06-2021 take 1 tablet by [facility] once daily finasteride 5 mg Tab 5 mg = 1 tab(s), Oral, Daily, # 90 tab(s), Refills(s) 3, Pharmacy: [facility]/pharmacy #[id number], 195, cm, 10/06/21 [...] bid for 5 days Apr, Active Pen Gorham 5/16 (15 sources) Start: 09-27-2022 Start: 09-27-2022 Pen Gorham / 16 Use to inject insulin qd [...] acid 4700 mg / polyethylene glycol 3350 800645 mg / potassium chloride 1015 mg / [...] 05-09-2015 Chronic Other aftercare (1 source) Other [facility]p (current) drug therapy; 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: [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 THERAPY] Onset: 07-03-2022 Episodic Other aftercare (1 source) [facility] (current) use of oral hypoglycemic drugs; 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: [RUG FRAME MOUNTER USE ORAL HYPOGLYCEMIC DX] Onset: 07-03-2022 Episodic Other aftercare (15 sources) Long-term current use of insulin; 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 - Hematology and Cell countson 02-11-2024 HbA1c (Bld) [Mass fraction] 7.5 % High 4.5-6.2 [facility] Comment on above: ADA RECOMMENDED LIMI T 4.0 - 6.0ADA THERAPEUTIC TARGET < 7.0ACTION SUGGESTED> 7.0 Glucose mean value [Mass/vol ume] in Blood Estimated from glycated hemoglobinon 10-12-2023 Average glucose Estimated from glycated hemoglobin (Bld) [Mass/Vol] 180 mg/dL [facility] - Hematology and Cell countson 10-12-2023 HbA1c (Bld) [Mass fraction] 7.9 % 4.5-6.2 [facility] Comment on above: ADA RECOMMENDED LIMI T 4.0 - 6.0ADA THERAPEUTIC TARGET < 7.0ACTION SUGGESTED> 7.0 GLYCOHEMOGLOBIN A1Con 2022 ADA RECOMMENDATION SEE BELOW Normal [facility] Comment on above: Result Comment: ADA RECOMMENDED LIMIT 4.0 - 6.0 ADA THERAPEUTIC TARGET < 7.0 ACTION SUGGESTED > 7.0 Performed By: #### B MP, LIPID, ALT, URIC #### [facility] [address] [place] [address] Dr. Jorge L Carey Glucose [Mass/Vol] 148 mg/dL Normal [facility] Comment on above: Performed By: #### B MP, LIPID, ALT, URIC #### [facility] [address] [address] [address] Jorge L Carey HbA1c (Bld) [Mass fraction] 6.8 % Critically high 4.5-6.2 [facility] Comment on above: Performed By: #### B MP, LIPID, ALT, URIC #### [facility] [address] [address] [address] Jorge L Carey CARDIAC DANAY ADMITon 023 CK [Catalytic activity/Vol] 59 U/L Normal 39-308 [facility] Comment on above: Performed By: #### C MP, CMADM #### [facility] [address] [address] [address] Jorge L Carey CK.MB [Mass/Vol] 0.99 ng/mL Normal <=3.60 [facility] Comment on above: Performed By: #### C MP, CMADM #### [facility] [address] [place] [address] Dr. Jorge L Carey HSTROP 10.0 pg/mL Normal 4.0-76.1 [facility] Comment on above: Result Comment: CUT- OFF POINTS HAVE BEEN ESTABLISHED BASED ON THE FOURTH UNIVERSAL DEFINITIONS OF MYOCARDIAL INFARCTION. THE UPPER REFERENCE LIMIT (URL) OF TROPONIN, DEFINED THE 99TH PERCENTILE OF cTnI DISTRIBUTION IN A REFERENCE POPULATION, HAS BEEN CONFIRMED THE DECISION THRESHOLD FOR [place] DIAGNOSIS. Performed By: #### C MP, CMADM #### [facility] [address] [place] [address] Dr. Jorge L Carey GARLAND 52 ng/mL Normal 16-96 [facility] Comment on above: Performed By: #### C MP, CMADM #### [facility] [address] [place] [address] Dr. Jorge L Carey CBC AUTO DIFFon 07-01-2022 BASO # 0.0 103/ul Normal 0.0-0.1 [facility] Comment on above: Performed By: #### B MP, LIPID, ALT, URIC #### [facility] [address] [place] [address] Dr. Jorge L Carey Basophils/100 WBC (Bld) 0.3 % Normal 0.2-2.0 [facility] Comment on above: Performed By: #### B MP, LIPID, ALT, URIC #### [facility] [address] [place] [address] Dr. Jorge L Carey EO # 0.1 103/ul Normal 0.0-0.7 [facility] Comment on above: Performed By: #### B MP, LIPID, ALT, URIC #### [facility] [address] [place] [address] Dr. Jorge L Carey Eosinophils/100 WBC (Bld) 0.9 % Normal 0.9-7.0 [facility] Comment on above: Performed By: #### B MP, LIPID, ALT, URIC #### [facility] [address] [place] [address] Dr. Jorge L Carey Erythrocyte distribution width (RBC) [Ratio] 11.7 % Normal 11.0-15.0 [facility] Comment on above: Performed By: #### B MP, LIPID, ALT, URIC #### [facility] [address] [place] [address] Dr. Jorge L Carey Hematocrit (Bld) [Volume fraction] 41.1 % Critically low 42.0-54.0 [facility] Comment on above: Performed By: #### B MP, LIPID, ALT, URIC #### [facility] [address] [place] [address] Dr. Jorge L Carey Hemoglobin (Bld) [Mass/Vol] 14.5 g/dL Normal 14.0-18.0 [facility] Comment on above: Performed By: #### B MP, LIPID, ALT, URIC #### [facility] [address] [place] [address] Dr. Jorge L Carey IG # 0.02 10e3/ul Normal 0.00-0.03 [facility] Comment on above: Performed By: #### B MP, LIPID, ALT, URIC #### [facility] [address] [place] [address] Dr. Jorge L Carey IG % 0.3 % Normal 0.0-0.5 [facility] Comment on above: Performed By: #### B MP, LIPID, ALT, URIC #### [facility] [address] [place] [address] Dr. Jorge L Carey LYMPH # 1.1 103/ul Critically low 1.2-3.8 [facility] Comment on above: Performed By: #### B MP, LIPID, ALT, URIC #### [facility] [address] [place] [address] Dr. Jorge L Carey Lymphocytes/100 WBC (Bld) 16.6 % Critically low 20.5-60.0 [facility] Comment on above: Performed By: #### B MP, LIPID, ALT, URIC #### [facility] [address] [place] [address] Dr. Jorge L Carey MANUAL DIFF REQ NO Normal [facility] Comment on above: Performed By: #### B MP, LIPID, ALT, URIC #### [facility] [address] [place] [address] Dr. Jorge L Carey MCH (RBC) [Entitic mass] 30.1 pg Normal 25.9-34.0 [facility] Comment on above: Performed By: #### B MP, LIPID, ALT, URIC #### [facility] [address] [place] [address] Dr. Jorge L Carey MCHC (RBC) [Mass/Vol] 35.3 g/dL Critically high 29.9-35.2 [facility] Comment on above: Performed By: #### B MP, LIPID, ALT, URIC #### [facility] [address] [place] [address] Dr. Jorge L Carey MCV (RBC) [Entitic vol] 85.4 fL Normal 80.0-94.0 [facility] Comment on above: Performed By: #### B MP, LIPID, ALT, URIC #### [facility] [address] [place] [address] Dr. Jorge L Carey MONO # 0.4 103/ul Normal 0.3-0.8 [facility] Comment on above: Performed By: #### B MP, LIPID, ALT, URIC #### [facility] [address] [place] [address] Dr. Jorge L Carey Monocytes/100 WBC (Bld) 5.1 % Normal 1.7-12.0 [facility] Comment on above: Performed By: #### B MP, LIPID, ALT, URIC #### [facility] [address] [place] [address] Dr. Jorge L Carey NEUT # 5.3 103/ul Normal 1.4-6.5 [facility] Comment on above: Performed By: #### B MP, LIPID, ALT, URIC #### [facility] [address] [place] [address] Dr. Jorge L Carey Neutrophils/100 WBC (Bld) 76.8 % Critically high 43.0-75.0 [facility] Comment on above: Performed By: #### B MP, LIPID, ALT, URIC #### [facility] [address] [place] [address] Dr. Jorge L Carey Platelet mean volume (Bld) [Entitic vol] 12.1 fL Normal 9.5-13.5 [facility] Comment on above: Performed By: #### B MP, LIPID, ALT, URIC #### [facility] [address] [place] [address] Dr. Jorge L Carey PLT 147 103/ul Critically low 150-450 [facility] Comment on above: Performed By: #### B MP, LIPID, ALT, URIC #### [facility] [address] [address] [address] Jorge L Carey RBC 4.81 106/ul Normal 4.70-6.10 [facility] Comment on above: Performed By: #### B MP, LIPID, ALT, URIC #### [facility] [address] [address] [address] Jorge L Carey WBC 6.9 103/ul Normal 4.0-11.0 [facility] Comment on above: Performed By: #### B MP, LIPID, ALT, URIC #### [facility] [address] [address] [address] Jorge L Carey [address] HEAD WO [...] LÓPEZ Date: 2022-07-01 20:24 Normal [facility] Covid-19 PCR (CVDTB)on 06-17 SARS-CoV-2 (COVID-19) RNA EDVIN+probe Ql (Unsp spec) Not detected Normal NOT DETECTED [facility] Comment on above: Result Comment: When [...] for this test is supported by the [employer] of Health and Human Service's declaration that [...] Performed By: #### C VDTBH #### [facility] [address] [place] [address] Dr. Jorge L Carey D-DIMERon 07-01-2022 D-DIMER 0.21 mg/L FEU Normal <=0.59 [facility] Comment on above: Performed By: #### B MP, LIPID, ALT, URIC #### [facility] [address] [place] [address] Dr. Jorge L Carey D-DIMER COMMENTS SEE BELOW Normal [facility] Comment on above: Result Comment: Incr eases [...] B MP, LIPID, ALT, URIC #### [facility] [address] [place] [address] Dr. Jorge L Carey ER URINE PROFILEon Bilirubin Ql (U) Negative Normal NEGATIVE [facility] Comment on above: Performed By: #### B MP, LIPID, ALT, URIC #### [facility] [address] [address] [address] Jorge L Carey Clarity (U) CLEAR Normal CLEAR [facility] Comment on above: Performed By: #### B MP, LIPID, ALT, URIC #### [facility] [address] [address] [address] Jorge L Carey Color (U) LT. YELLOW Normal YELLOW [facility] Comment on above: Performed By: #### B MP, LIPID, ALT, URIC #### [facility] [address] [address] [address] Jorge L Carey ERUAHJacy A micrscopic examination will be performed if indicated. Normal [facility] Comment on above: Performed By: #### B MP, LIPID, ALT, URIC #### [facility] [address] [place] [address] Dr. Jorge L Carey Glucose Ql (U) Negative Normal NEGATIVE [facility] Comment on above: Performed By: #### B MP, LIPID, ALT, URIC #### [facility] [address] [place] [address] Dr. Jorge L Carey Hemoglobin Ql (U) Negative Normal NEGATIVE [facility] Comment on above: Performed By: #### B MP, LIPID, ALT, URIC #### [facility] [address] [address] [address] Jorge L Carey Ketones Ql (U) Negative Normal NEGATIVE [facility] Comment on above: Performed By: #### B MP, LIPID, ALT, URIC #### [facility] [address] [place] [address] Dr. Jorge L Carey LEUKOCYTES Negative Normal NEGATIVE [facility] Comment on above: Performed By: #### B MP, LIPID, ALT, URIC #### [facility] [address] [address] [address] Jorge L Carey Nitrite Ql (U) Negative Normal NEGATIVE [facility] Comment on above: Performed By: #### B MP, LIPID, ALT, URIC #### [facility] [address] [place] [address] Dr. Jorge L Carey pH (U) 6.0 [pH] Normal 5-9 [facility] Comment on above: Performed By: #### B MP, LIPID, ALT, URIC #### [facility] [address] [place] [address] Dr. Jorge L Carey SPEC GRAVITY 1.020 Normal 1.005-<=1.025 [facility] Comment on above: Performed By: #### B MP, LIPID, ALT, URIC #### [facility] [address] [place] [address] Dr. Jorge L Carey UA PROTEIN Negative Normal NEGATIVE/ TRACE [facility] Comment on above: Performed By: #### B MP, LIPID, ALT, URIC #### [facility] [address] [place] [address] Dr. Jorge L Carey UR MICRO IND NOT INDICATED Normal [facility] Comment on above: Performed By: #### B MP, LIPID, ALT, URIC #### [facility] [address] [place] [address] Dr. Jorge L Carey Urobilinogen Qn (U) 1.0 {Ila'U}/dL Normal 0.2 - 1. 0 [facility] Comment on above: Performed By: #### B MP, LIPID, ALT, URIC #### [facility] [address] [place] [address] Dr. Jorge L Carey INFLUENZA A AND B [facility] 07-01 [facility] SEE BELOW Normal [facility] Comment on above: Result Comment: Nega tive for Flu A protein angiten. Infection due to Flu A cannot be ruled out. Flu A angiten in the sample may be below the detection limit of the test. Performed By: #### I NFLUAB #### [facility] [address] [place] [address] Dr. Jorge L Carey [facility] SEE BELOW Normal [facility] Comment on above: Result Comment: Nega tive for Flu B protein antigen. Infection due to Flu B cannot be ruled out. Flu B antigen in the sample may be below the detection limit of the test. Performed By: #### I NFLUAB #### [facility] [address] [place] [address] Dr. Jorge L Carey INFLUENZA A AG Negative Normal NEGATIVE SEE COMMENT [facility] Comment on above: Performed By: #### I NFLUAB #### [facility] [address] [place] [address] Dr. Jorge L Carey INFLUENZA B AG Negative Normal NEGATIVE SEE COMMENT [facility] Comment on above: Performed By: #### I NFLUAB #### [facility] [address] [place] [address] Dr. Jorge L Carey POINT OF CARE GLUCOSEon 06-17 Glucose [Mass/Vol] 130 mg/dL Critically high 74-106 [facility] Comment on above: Performed By: #### B MP, LIPID, ALT, URIC #### [facility] [address] [place] [address] Dr. Jorge L Carey PROF 14(COMP METB)on 023 Albumin [Mass/Vol] 3.7 g/dL Normal 3.4-5.0 [facility] Comment on above: Performed By: #### C IGGY, CMADM #### [facility] [address] [place] [address] Dr. Jorge L Carey Albumin/Globulin [Mass ratio] 1.2 {ratio} Normal [facility] Comment on above: Performed By: #### C IGGY, CMADM #### [facility] [address] [place] [address] Dr. Jorge L Carey ALP [Catalytic activity/Vol] 49 U/L Normal 46-116 [facility] Comment on above: Performed By: #### C MP, CMADM #### [facility] [address] [place] [address] Dr. Jorge L Carey ALT [Catalytic activity/Vol] 30 U/L Normal 16-63 [facility] Comment on above: Performed By: #### C IGGY, CMADM #### [facility] [address] [place] [address] Dr. Jorge L Carey Anion gap [Moles/Vol] 12.7 mmol/L Normal [facility] Comment on above: Performed By: #### C IGGY, CMADM #### [facility] [address] [address] [address] Jorge L Carey AST [Catalytic activity/Vol] 21 U/L Normal 15-37 [facility] Comment on above: Performed By: #### C MP, CMADM #### [facility] [address] [address] [address] Jorge L Carey Bilirubin [Mass/Vol] 0.5 mg/dL Normal 0.2-1.0 [facility] Comment on above: Performed By: #### C MP, CMADM #### [facility] [address] [address] [address] Jorge L Carey Calcium [Mass/Vol] 8.9 mg/dL Normal 8.5-10.1 [facility] Comment on above: Performed By: #### C MP, CMADM #### [facility] [address] [place] [address] Dr. Jorge L Carey Chloride [Moles/Vol] 100 mmol/L Normal 98-107 [facility] Comment on above: Performed By: #### C MP, CMADM #### [facility] [address] [place] [address] Dr. Jorge L Carey CO2 [Moles/Vol] 29.0 mmol/L Normal 21.0-32.0 [facility] Comment on above: Performed By: #### C MP, CMADM #### [facility] [address] [place] [address] Dr. Jorge L Carey Creatinine [Mass/Vol] 1.04 mg/dL Normal 0.70-1.30 [facility] Comment on above: Performed By: #### C MP, CMADM #### [facility] [address] [place] [address] Dr. Jorge L Carey EGFR-AF TURKMEN >60 Normal >=60 [facility] Comment on above: Performed By: #### C MP, CMADM #### [facility] [address] [address] [address] Jorge L Carey EGFR-NON AF TURKMEN >60 Normal >=60 [facility] Comment on above: Performed By: #### C IGGY, CMADM #### [facility] [address] [address] [address] Jorge L Carey Globulin (S) [Mass/Vol] 3.1 g/dL Normal [facility] Comment on above: Performed By: #### C MP, CMADM #### [facility] [address] [address] [address] Jorge L Carey Glucose [Mass/Vol] 140 mg/dL Critically high 74-106 [facility] Comment on above: Performed By: #### C MP, CMADM #### [facility] [address] [address] [address] Jorge L Carey Potassium [Moles/Vol] 3.7 mmol/L Normal 3.5-5.1 [facility] Comment on above: Performed By: #### C IGGY, CMADM #### [facility] [address] [place] [address] Dr. Jorge L Carey Protein [Mass/Vol] 6.8 g/dL Normal 6.4-8.2 [facility] Comment on above: Performed By: #### C IGGY, CMADM #### [facility] [address] [place] [address] Dr. Jorge L Carey Sodium [Moles/Vol] 138 mmol/L Normal 136-145 [facility] Comment on above: Performed By: #### C IGGY, CMADM #### [facility] [address] [place] [address] Dr. Jorge L Carey Urea nitrogen [Mass/Vol] 13.0 mg/dL Normal 7.0-18.0 [facility] Comment on above: Performed By: #### C IGGY, CMADM #### [facility] [address] [place] [address] Dr. Jorge L Carey Urea nitrogen/Creatinine [Mass ratio] 12.5 mg/mg Normal [facility] Comment on above: Performed By: #### C IGGY, CMADM #### [facility] [address] [address] [address] Jorge L Carey TROPONIN, HIGH SENSITIVITYon 07-01-2022 HSTROP 10.9 pg/mL Normal 4.0-76.1 [facility] Comment on above: Result Comment: CUT- OFF POINTS HAVE BEEN ESTABLISHED BASED ON THE FOURTH UNIVERSAL DEFINITIONS OF MYOCARDIAL INFARCTION. THE UPPER REFERENCE LIMIT (URL) OF TROPONIN, DEFINED THE 99TH PERCENTILE OF cTnI DISTRIBUTION IN A REFERENCE POPULATION, HAS BEEN CONFIRMED THE DECISION THRESHOLD FOR [place] DIAGNOSIS. Performed By: #### B MP, LIPID, ALT, URIC #### [facility] [address] [place] [address] Dr. Jorge L Carey XR CHEST 1 [...] MASTERS Date: 2022-07-01 19:57 Normal [facility] CBC AUTO DIFFon 04-18-2022 BASO # 0.0 103/ul Normal 0.0-0.1 [facility] Comment on above: Performed By: #### C BC #### [facility] [address] [place] [address] Dr. Jorge L Carey Basophils/100 WBC (Bld) 0.7 % Normal 0.2-2.0 [facility] Comment on above: Performed By: #### C BC #### [facility] [address] [place] [address] Dr. Jorge L Carey EO # 0.2 103/ul Normal 0.0-0.7 [facility] Comment on above: Performed By: #### C BC #### [facility] [address] [place] [address] Dr. Jorge L Carey Eosinophils/100 WBC (Bld) 2.6 % Normal 0.9-7.0 [facility] Comment on above: Performed By: #### C BC #### [facility] [address] [place] [address] Dr. Jorge L Carey Erythrocyte distribution width (RBC) [Ratio] 11.5 % Normal 11.0-15.0 [facility] Comment on above: Performed By: #### C BC #### [facility] [address] [place] [address] Dr. Jorge L Carey Hematocrit (Bld) [Volume fraction] 44.7 % Normal 42.0-54.0 [facility] Comment on above: Performed By: #### C BC #### [facility] [address] [place] [address] Dr. Jorge L Carey Hemoglobin (Bld) [Mass/Vol] 15.5 g/dL Normal 14.0-18.0 [facility] Comment on above: Performed By: #### C BC #### [facility] [address] [place] [address] Dr. Jorge L Carey IG # 0.01 10e3/ul Normal 0.00-0.03 [facility] Comment on above: Performed By: #### C BC #### [facility] [address] [place] [address] Dr. Jorge L Carey IG % 0.2 % Normal 0.0-0.5 [facility] Comment on above: Performed By: #### C BC #### [facility] [address] [place] [address] Dr. Jorge L Carey LYMPH # 1.3 103/ul Normal 1.2-3.8 [facility] Comment on above: Performed By: #### C BC #### [facility] [address] [place] [address] Dr. Jorge L Carey Lymphocytes/100 WBC (Bld) 21.3 % Normal 20.5-60.0 [facility] Comment on above: Performed By: #### C BC #### [facility] [address] [place] [address] Dr. Jorge L Carey MANUAL DIFF REQ NO Normal [facility] Comment on above: Performed By: #### C BC #### [facility] [address] [place] [address] Dr. Jorge L Carey MCH (RBC) [Entitic mass] 30.1 pg Normal 25.9-34.0 [facility] Comment on above: Performed By: #### C BC #### [facility] Laboratory [address] [place] [address] Dr. Jorge L Carey MCHC (RBC) [Mass/Vol] 34.7 g/dL Normal 29.9-35.2 [facility] Comment on above: Performed By: #### C BC #### [facility] [address] [place] [address] Dr. Jorge L Carey MCV (RBC) [Entitic vol] 86.8 fL Normal 80.0-94.0 [facility] Comment on above: Performed By: #### C BC #### [facility] [address] [place] [address] Dr. Jorge L Carey MONO # 0.4 103/ul Normal 0.3-0.8 [facility] Comment on above: Performed By: #### C BC #### [facility] [address] [place] [address] Dr. Jorge L Carey Monocytes/100 WBC (Bld) 7.2 % Normal 1.7-12.0 [facility] Comment on above: Performed By: #### C BC #### [facility] [address] [place] [address] Dr. Jorge L Carey NEUT # 4.1 103/ul Normal 1.4-6.5 [facility] Comment on above: Performed By: #### C BC #### [facility] [address] [place] [address] Dr. Jorge L Carey Neutrophils/100 WBC (Bld) 68.0 % Normal 43.0-75.0 [facility] Comment on above: Performed By: #### C BC #### [facility] [address] [place] [address] Dr. Jorge L Carey Platelet mean volume (Bld) [Entitic vol] 12.0 fL Normal 9.5-13.5 [facility] Comment on above: Performed By: #### C BC #### [facility] [address] [place] [address] Dr. Jorge L Carey PLT 163 103/ul Normal 150-450 [facility] Comment on above: Performed By: #### C BC #### [facility] [address] [place] [address] Dr. Jorge L Carey RBC 5.15 106/ul Normal 4.70-6.10 [facility] Comment on above: Performed By: #### C BC #### [facility] [address] [place] [address] Dr. Jorge L Carey WBC 6.1 103/ul Normal 4.0-11.0 [facility] Comment on above: Performed By: #### C BC #### [facility] [address] [place] [address] Dr. Jorge L Carey GLYCOHEMOGLOBIN A1Con 2021 ADA RECOMMENDATION SEE BELOW Normal [facility] Comment on above: Result Comment: ADA RECOMMENDED LIMIT 4.0 - 6.0 ADA THERAPEUTIC TARGET < 7.0 ACTION SUGGESTED > 7.0 Performed By: #### B MP, LIPID, ALT, URIC #### [facility] [address] [place] [address] Dr. Jorge L Carey Glucose [Mass/Vol] 146 mg/dL Normal [facility] Comment on above: Performed By: #### B MP, LIPID, ALT, URIC #### [facility] [address] [place] [address] Dr. Jorge L Carey HbA1c (Bld) [Mass fraction] 6.7 % Critically high 4.5-6.2 [facility] Comment on above: Performed By: #### B MP, LIPID, ALT, URIC #### [facility] [address] [place] [address] Dr. Jorge L Carey LIPID PROFILEon 04-18-2022 CHOL-HDL RATIO NORM SEE BELOW Normal [facility] Comment on above: Result Comment: 3.3 - 4.4 LOW RISK 4.4 - 7.1 AVERAGE RISK 7.1 - 11.0 MODERATE RISK >11.0 HIGH RISK Performed By: #### B MP, LIPID, ALT, URIC #### [facility] [address] [place] [address] Dr. Jorge L Carey Cholesterol [Mass/Vol] 117 mg/dL Normal <=200 [facility] Comment on above: Performed By: #### B MP, LIPID, ALT, URIC #### [facility] [address] [address] [address] Jorge L Carey Cholesterol in HDL [Mass/Vol] 48 mg/dL Normal 40-60 [facility] Comment on above: Performed By: #### B MP, LIPID, ALT, URIC #### [facility] [address] [address] [address] Jorge L Carey Cholesterol in LDL [Mass/Vol] 50.6 mg/dL Normal [facility] Comment on above: Performed By: #### B MP, LIPID, ALT, URIC #### [facility] [address] [address] [address] Jorge L Carey Cholesterol.total/Cho lesterol in HDL [Mass ratio] 2.4 {ratio} Normal [facility] Comment on above: Performed By: #### B MP, LIPID, ALT, URIC #### [facility] [address] [address] [address] Jorge L Carey HDL NORMAL > or = 60 mg/dl - LOW CARDIOVASCULAR RISK <40 mg/dl - HIGH CARDIOVASCULAR RISK Normal [facility] Comment on above: Performed By: #### B MP, LIPID, ALT, URIC #### [facility] [address] [address] [address] Jorge L Carey LDL CALC NORMAL SEE BELOW Normal [facility] Comment on above: Result Comment: <100 mg/dl OPTIMAL 100 - 129 mg/dl NEAR OR ABOVE OPTIMAL 130 - 159 mg/dl BORDERLINE HIGH 160 - 189 mg/dl HIGH >190 mg/dl VERY HIGH Performed By: #### B MP, LIPID, ALT, URIC #### [facility] [address] [address] [address] Jorge L Carey Triglyceride [Mass/Vol] 92 mg/dL Normal <=150 [facility] Comment on above: Performed By: #### B MP, LIPID, ALT, URIC #### [facility] [address] [address] [address] Jorge L Carey VLDL CALC 18.4 mg/dL Normal [facility] Comment on above: Performed By: #### B MP, LIPID, ALT, URIC #### [facility] [address] [address] [address] Jorge L Carey MICROALBUMIN, RAND URon 11-0 mALB <1.3 Normal <=30.0 [facility] Comment on above: Performed By: #### M ALBR #### [facility] [address] [address] [address] Jorge L Carey PROF CHEM 8 (BAS METB)on Anion gap [Moles/Vol] 9.5 mmol/L Normal [facility] Comment on above: Performed By: #### B MP, LIPID, ALT, URIC #### [facility] [address] [address] [address] Jorge L Carey Calcium [Mass/Vol] 8.6 mg/dL Normal 8.5-10.1 [facility] Comment on above: Performed By: #### B MP, LIPID, ALT, URIC #### [facility] [address] [place] [address] Dr. Jorge L Carey Chloride [Moles/Vol] 102 mmol/L Normal 98-107 [facility] Comment on above: Performed By: #### B MP, LIPID, ALT, URIC #### [facility] [address] [address] [address] Jorge L Carey CO2 [Moles/Vol] 30.8 mmol/L Normal 21.0-32.0 [facility] Comment on above: Performed By: #### B MP, LIPID, ALT, URIC #### [facility] [address] [address] [address] Jorge L Carey Creatinine [Mass/Vol] 0.95 mg/dL Normal 0.70-1.30 [facility] Comment on above: Performed By: #### B MP, LIPID, ALT, URIC #### [facility] [address] [address] [address] Jorge L Carey EGFR-AF TURKMEN >60 Normal >=60 [facility] Comment on above: Performed By: #### B MP, LIPID, ALT, URIC #### [facility] [address] [address] [address] Jorge L Carey EGFR-NON AF TURKMEN >60 Normal >=60 [facility] Comment on above: Performed By: #### B MP, LIPID, ALT, URIC #### [facility] [address] [address] [address] Jorge L Carey Glucose [Mass/Vol] 142 mg/dL Critically high 74-106 [facility] Comment on above: Performed By: #### B MP, LIPID, ALT, URIC #### [facility] [address] [place] [address] Dr. Jorge L Carey Potassium [Moles/Vol] 4.3 mmol/L Normal 3.5-5.1 [facility] Comment on above: Performed By: #### B MP, LIPID, ALT, URIC #### [facility] [address] [place] [address] Dr. Jorge L Carey Sodium [Moles/Vol] 138 mmol/L Normal 136-145 [facility] Comment on above: Performed By: #### B MP, LIPID, ALT, URIC #### [facility] [address] [place] [address] Dr. Jorge L Carey Urea nitrogen [Mass/Vol] 14.0 mg/dL Normal 7.0-18.0 [facility] Comment on above: Performed By: #### B MP, LIPID, ALT, URIC #### [facility] [address] [place] [address] Dr. Jorge L Carey Urea nitrogen/Creatinine [Mass ratio] 14.7 mg/mg Normal [facility] Comment on above: Performed By: #### B MP, LIPID, ALT, URIC #### [facility] [address] [place] [address] Dr. Jorge L Carey [facility] 04-18-2022 ALT [Catalytic activity/Vol] 27 U/L Normal 16-63 [facility] Comment on above: Performed By: #### B MP, LIPID, ALT, URIC #### [facility] [address] [place] [address] Dr. Jorge L Carey URIC ACID SERUMon 04-18-2022 Urate [Mass/Vol] 5.5 mg/dL Normal 3.5-7.2 [facility] Comment on above: Performed By: #### B MP, LIPID, ALT, URIC #### [facility] [address] [address] [address] Jorge L Carey GLYCOHEMOGLOBIN A1Con 2021 ADA RECOMMENDATION SEE BELOW Normal [facility] Comment on above: Result Comment: ADA RECOMMENDED LIMIT 4.0 - 6.0 ADA THERAPEUTIC TARGET < 7.0 ACTION SUGGESTED > 7.0 Performed By: #### B MP, LIPID, ALT, URIC #### [facility] [address] [address] [address] Jorge L Carey Glucose [Mass/Vol] 160 mg/dL Normal [facility] Comment on above: Performed By: #### B MP, LIPID, ALT, URIC #### [facility] [address] [address] [address] Jorge L Carey HbA1c (Bld) [Mass fraction] 7.2 % Critically high 4.5-6.2 [facility] Comment on above: Performed By: #### B MP, LIPID, ALT, URIC #### [facility] [address] [address] [address] Jorge L Carey GLYCOHEMOGLOBIN A1Con 2021 ADA RECOMMENDATION ADA THERAPEUTIC TARGET 6.0 - 7.0 ACTION SUGGESTED > 7.0 Normal [facility] Comment on above: Performed By: #### B MP, LIPID, ALT, URIC #### [facility] [address] [address] [address] Jorge L Carey Glucose [Mass/Vol] 177 mg/dL Normal [facility] Comment on above: Performed By: #### B MP, LIPID, ALT, URIC #### [facility] [address] [address] [address] Jorge L Carey HbA1c (Bld) [Mass fraction] 7.8 % Critically high <=6.0 [facility] Comment on above: Performed By: #### B MP, LIPID, ALT, URIC #### [facility] [address] [address] [address] Jorge L Carey [facility] 09-17-2020 Glucose [Mass/Vol] 151 mg/dL Normal [facility] Comment on above: Result Comment: PERF ORMED BY: [place] [address] PATHOLOGIST [employer]NA[employer] KEEPER SUSAN SEXTON M.D. Performed By: #### O MOE GLYCO #### [facility] [address] HbA1c (Bld) [Mass fraction] 6.9 % High 4.3-5.6 [facility] Comment on above: Result Comment: Incr eased risk for diabetes: 5.7 - 6.4 diabetes: >6.4 glycemic control for adults with diabetes: <7.0 Performed By: #### O MOE GLYCO #### [facility] [address] [place] [address] Vital Signs Date Time Vital Sign Value Performing Clinician Facility 02-18-2024 09:37-0400 Body height 190.5 cm [facility] 02-18-2024 09:37-0400 Body mass index (BMI) [Ratio] 32.1 kg/m2 [facility] 02-18-2024 09:37-0400 Body weight 116.74 kg [facility] 02-18-2024 09:37-0400 Diastolic blood pressure 81 mm[Hg] [facility] 02-18-2024 09:37-0400 Heart rate 76 /min [facility] 02-18-2024 09:37-0400 Respiratory rate 12 /min [facility] 02-18-2024 09:37-0400 Systolic blood pressure 136 mm[Hg] [facility] 10-18-2023 09:06-0400 Body height 190.5 cm [facility] 10-18-2023 09:06-0400 Body mass index (BMI) [Ratio] 31.8 kg/m2 [facility] 10-18-2023 09:06-0400 Body weight 115.32 kg [facility] 10-18-2023 09:06-0400 Diastolic blood pressure 77 mm[Hg] [facility] 10-18-2023 09:06-0400 Heart rate 80 /min [facility] 10-18-2023 09:06-0400 Respiratory rate 12 /min [facility] 10-18-2023 09:06-0400 Systolic blood pressure 116 mm[Hg] [facility] 07-08-2023 09:00-0500 Body height 190.5 cm Bogdan Ball Other [facility] Other 07-08-2023 09:00-0500 Body mass index (BMI) [Ratio] 32.62 kg/m2 Bogdan Ball Other [facility] Other 07-08-2023 09:00-0500 Body weight 118.39 kg Bogdan Ball Other [facility] Other 07-08-2023 09:00-0500 Diastolic blood pressure 81 mm[Hg] Bogdan Ball Other [facility] Other 07-08-2023 09:00-0500 Respiratory rate 12 /min Bogdan Ball Other [facility] Other 07-08-2023 09:00-0500 Systolic blood pressure 117 mm[Hg] Bogdan Ball Other [facility] Other 05-01-2023 08:30-0500 Body height 190.5 cm Bogdan Ball Other [facility] Other 05-01-2023 08:30-0500 Body mass index (BMI) [Ratio] 32.19 kg/m2 Bogdan Ball Other [facility] Other 05-01-2023 08:30-0500 Body weight 116.85 kg Bogdan Ball Other [facility] Other 05-01-2023 08:30-0500 Diastolic blood pressure 81 mm[Hg] Bogdan Ball Other [facility] Other 05-01-2023 08:30-0500 Respiratory rate 12 /min Bogdan Ball Other [facility] Other 05-01-2023 08:30-0500 Systolic blood pressure 135 mm[Hg] Bogdan Ball Other [facility] Other 12-26-2022 08:30-0400 Body height 190.5 cm Bogdan Ball Other [facility] Other 12-26-2022 08:30-0400 Body mass index (BMI) [Ratio] 31.54 kg/m2 Bogdan Ball Other [facility] Other 12-26-2022 08:30-0400 Body weight 114.49 kg Bogdan Ball Other [facility] Other 12-26-2022 08:30-0400 Diastolic blood pressure 85 mm[Hg] Bogdan Ball Other [facility] Other 12-26-2022 08:30-0400 Respiratory rate 12 /min Bogdan Ball Other [facility] Other 12-26-2022 08:30-0400 Systolic blood pressure 139 mm[Hg] Bogdan Ball Other [facility] Other 11-09-2022 10:58-0400 Blood Pressure Location Hola GARCIA [facility] 11-09-2022 10:58-0400 Diastolic blood pressure 80 mm[Hg] Hola GARCIA [facility] 11-09-2022 10:58-0400 Heart rate 78 /min Hola GARCIA [facility] 11-09-2022 10:58-0400 Respiratory rate 16 /min Hola GARCIA [facility] 11-09-2022 10:58-0400 Systolic blood pressure 130 mm[Hg] Hola GARCIA [facility] 10-05-2022 12:15-0400 Body height 190.5 cm Bogdan Ball Other [facility] Other 10-05-2022 12:15-0400 Body mass index (BMI) [Ratio] 31.17 kg/m2 Bogdan Ball Other [facility] Other 10-05-2022 12:15-0400 Body weight 113.13 kg Bogdan Ball Other [facility] Other 10-05-2022 12:15-0400 Diastolic blood pressure 95 mm[Hg] Bogdan Ball Other [facility] Other 10-05-2022 12:15-0400 Respiratory rate 12 /min Bogdan Ball Other [facility] Other 10-05-2022 12:15-0400 Systolic blood pressure 168 mm[Hg] Bogdan Ball Other [facility] Other 08-23-2022 08:30-0500 Body height 190.5 cm Bogdan Ball Other [facility] Other 08-23-2022 08:30-0500 Body mass index (BMI) [Ratio] 31.42 kg/m2 Bogdan Ball Other [facility] Other 08-23-2022 08:30-0500 Body weight 114.04 kg Bogdan Ball Other [facility] Other 08-23-2022 08:30-0500 Diastolic blood pressure 86 mm[Hg] Bogdan Ball Other [facility] Other 08-23-2022 08:30-0500 Respiratory rate 12 /min Bogdan Ball Other [facility] Other 08-23-2022 08:30-0500 Systolic blood pressure 132 mm[Hg] Bogdan Ball Other [facility] Other 10-06-2021 08:14-0400 Blood Pressure Location Hola GARCIA [facility] 10-06-2021 08:14-0400 Diastolic blood pressure 98 mm[Hg] Hola GARCIA [facility] 10-06-2021 08:14-0400 Heart rate 78 /min Hola GARCIA [facility] 10-06-2021 08:14-0400 Systolic blood pressure 145 mm[Hg] Hola GARCIA [facility] Encounters Encounter Date Encounter Type Care Provider Facility Start: 05-04-2024 End: 05-04-2024 amb[facility] Start: 04-20-2024 End: 04-20-2024 ambulatory Dm Cyr MD Facility:[facility] Start: 04-03-2024 ambulatory Hola Cid ty:[facility] [place] Start: 02-18-2024 End: 02-18-2024 ambulatory [facility] Work Phone: Start: 02-18-2024 End: 02-18-2024 Patient encounter procedure [facility] Work Phone: Start: 02-11-2024 Non-patient / Non-visit [facility] Work Phone: Start: 10-18-2023 End: 10-18-2023 ambulatory [facility] Work Phone: Start: 10-18-2023 End: 10-18-2023 Patient encounter procedure [facility] Work Phone: Start: 10-12-2023 Non-patient / Non-visit [facility] Work Phone: Start: 08-23-2023 Non-patient / Non-visit [facility] Work Phone: Start: 08-19-2023 End: 08-19-2023 ambulatory Dm Cyr MD Facility: [facility] Start: 08-16-2023 Non-patient / Non-visit [facility] Work Phone: Start: 07-30-2023 Non-patient / Non-visit [facility] Work Phone: Start: 07-29-2023 End: 07-29-2023 ambulatory Bogdan Green Other [facility] Other Start: 07-29-2023 Telephone encounter Bogdan Green [facility] Start: 07-29-2023 End: 07-29-2023 ambulatory Dm Cyr MD Facility:[facility] Start: 07-15-2023 End: 07-15-2023 ambulatory Dm Cyr MD Facility:[facility] Start: 07-08-2023 End: 07-08-2023 ambulatory Bogdan Green Other [facility] Other Start: 07-08-2023 Office outpatient vi sit 25 minutes Bogdan Ball [facility] Start: 06-24-2023 End: 06-24-2023 ambulatory Dm Cyr MD Facility: [facility] Start: 05-20-2023 End: 05-20-2023 ambulatory [facility] Start: 05-10-2023 End: 05-10-2023 ambulatory Bogdan Green Other [facility] Other Start: 05-10-2023 Office outpatient vi sit 15 minutes Bogdan Ball [facility] Start: 05-01-2023 End: 05-01-2023 ambulatory Bogdan Green Other [facility] Other Start: 05-01-2023 Patient encounter procedure Bogdan Ball [facility] Start: 04-24-2023 End: 04-24-2023 ambulatory Bogdan Green Other [facility] Other Start: 04-24-2023 Telephone encounter Bogdan Green [facility] Start: 02-25-2023 End: 02-25-2023 ambulatory Bogdan Peter Other [facility] Other Start: 02-25-2023 Telephone encounter Bogdan Green [facility] Start: 12-27-2022 End: 12-27-2022 ambulatory Bogdan Green Other [facility] Other Start: 12-27-2022 Telephone encounter Bogdan Ball [facility] Start: 12-26-2022 End: 12-26-2022 ambulatory Bogdan Ball Other [facility] Other Start: 12-26-2022 Office outpatient vi sit 25 minutes Bogdan Ball [facility] Start: 11-19-2022 End: 11-19-2022 ambulatory Bogdan Ball Other [facility] Other Start: 11-19-2022 Telephone encounter Bogdan Ball [facility] Start: 11-09-2022 End: 11-09-2022 Patient encounter procedure Hola Rushing JOSE [facility] Start: 10-22-2022 End: 10-22-2022 ambulatory Bogdan Ball Other [facility] Other Start: 10-22-2022 Telephone encounter Bogdan Ball [facility] Start: 10-18-2022 End: 10-18-2022 ambulatory Bogadn Ball Other [facility] Other Start: 10-18-2022 Telephone encounter Bogdan Ball [facility] Start: 10-05-2022 End: 10-05-2022 ambulatory Bogdan Ball Other [facility] Other Start: 10-05-2022 Office outpatient vi sit 15 minutes Bogdan Ball [facility] Start: 09-27-2022 End: 09-27-2022 ambulatory Bogdan Ball Other [facility] Other Start: 09-27-2022 Telephone encounter Bogdan Ball [facility] Start: 09-25-2022 End: 09-25-2022 ambulatory Bogdan Ball Other [facility] Other Start: 09-25-2022 Telephone encounter Bogdan Ball [facility] Start: 09-21-2022 End: 09-21-2022 ambulatory Bogdan Ball Other [facility] Other Start: 09-21-2022 Telephone encounter Bogdan Ball [facility] Start: 08-23-2022 End: 08-23-2022 ambulatory Bogdan Ball Other [facility] Other Start: 08-23-2022 Office outpatient vi sit 25 minutes Bogdan Ball [facility] Start: 08-17-2022 End: 08-18-[address] BOGDAN GREEN Facility:[facility] Start: 08-14-2022 End: 08-14-2022 ambulatory Bogdan Green Other [facility] Other Start: 08-14-2022 Telephone encounter Bogdan HORTON [facility] Start: 07-01-2022 End: 07-01-[address] BOGDAN GREEN Facility:[facility] Start: 04-25-2022 Adult health examination Bogdan Green Other [facility] Other Start: 04-18-2022 End: 04-19-[address] BOGDAN GREEN Facility:[facility] Start: 01-20-2022 End: 01-21-2022 ambulatory NONE LISTED REQUEST Facility:[facility] Start: 10-06-2021 End: 10-06-2021 Patient encounter procedure Hola GARCIA [facility] Start: 09-16-2021 End: 09-17-[address] HOLA GARCIA . Facility:[facility] Start: 09-15-2021 End: 09-16-2021 ambulatory NONE LISTED REQUEST Facility:[facility] Start: 08-29-[address] BOGDAN GREEN Facili ty:[facility] Procedures Date Procedure Procedure Detail Performing Clinician Start: 09-16-[address] NORRIS GREEN Comment on above: Performed By: #### B MP, LIPID, ALT, URIC #### [facility] [address] [place] [address] Dr. Jorge L Carey Start: 03-29-2017 General [...] Care Activity Detail Author US Heart Transthoracic [facility] XR Chest 2 Views [facility] Immunizations Immunization Date Immunization Notes Care Provider Fa tri 04-29-2023 zoster vaccine recombinant Bogdan Green Other [facility] 04-26-2023 influenza virus vaccine, unspecified formulation [facility] 04-26-2023 influenza, high dose seasonal, preservative-free Bogdan Green Other [facility] Other 02-26-2023 zoster vaccine recombinant Bogdan Green Other [facility] 04-25-2022 pneumococcal 20-alber nt conjugate vaccine Hola GARCIA [facility] 04-16-2022 influenza virus vaccine, split virus (incl. purified surface antigen) Bogdan Green Other [facility] Other 04-16-2022 influenza virus vaccine, unspecified formulation Hola GARCIA [facility] 03-23-2022 SARS-CoV-2 (COVID-19 ) [id number] Hola GARCIA [facility] 05-08-2021 SARS-CoV-2 (COVID-19 ) mRNA BNT-162b2 vax Hola GARCIA [facility] 04-22-2021 influenza virus vaccine, split virus (incl. purified surface antigen) Bogdan Green Other [facility] Other 04-22-2021 influenza virus vaccine, unspecified formulation Hola GARCIA [facility] 03-30-2021 influenza virus vaccine, unspecified formulation Hola GARCIA [facility] 09-16-2020 COVID-19, mRNA, LNP- S, PF, 30 mcg/0.3 mL dose; 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: [Pfizer-BioNTech COVID-19 Vaccine] Hola GARCIA [facility] Comment on above: Reason for Medicatio n: Prophylaxis 08-26-2020 COVID-19, mRNA, LNP- S, PF, 30 mcg/0.3 mL dose; 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: [Pfizer-BioNTech COVID-19 Vaccine] Hola GARCIA [facility] Comment on above: Reason for Medicatio n: Prophylaxis 04-16-2020 influenza virus vaccine, split virus (incl. purified surface antigen) Bogdan Green Other [facility] Other 04-16-2020 influenza virus vaccine, unspecified formulation Hola GARCIA [facility] pneumococcal Conjuga te, unspecified formulation; Translations: [Need for prophylactic vaccination against Streptococcus pneumoniae (pneumococcus)] Bogdan Green Other [facility] Other Payers Date Payer Category Payer Medicare 2022 Unknown 2021 Medicare [id number] 2020 Unknown [id number] 1958 Medicare [id number] 1958 Self-pay [id number] Unknown [id number] 1958 Unknown [id number] 1955 Unknown [id number] 2.16.84 0.1.428321.3.579.2.593 1955 Unknown [id number] 2.16.84 0.1.221263.3.579.2.593 1955 Unknown [id number] 2.16.84 0.1.532474.3.579.2.593 1956 Unknown [id number] 2.16.84 0.1.273602.3.579.2.593 1956 Unknown [id number] 2.16.84 0.1.123472.3.579.2.593 1956 Unknown [id number] 2.16.8 40.1.530599.3.579.2.727 1955 Unknown [id number] 2.16. 840.1.024009.3.579.2.196 1956 Unknown [id number] 2.16. 840.1.696930.3.579.2.196 1956 Unknown [id number] 2.16. 840.1.017085.3.579.2.196 1956 Unknown [id number] 2.16. 840.1.446588.3.579.2.196 1956 Unknown [id number] 2.16. 840.1.358255.3.579.2.196 1956 Unknown [id number] 2.16. 840.1.681536.3.579.2.196 1955 Unknown [id number] 2.16. 840.1.926882.3.579.2.196 Blue [employer] Blue Shield [id number] 2.16.840.1.533701.19 Self-pay Self Pay [id number] Unknown [id number] 2.16.84 0.1.293901.3.579.2.593 Unknown [id number] 2.16.84 0.1.177075.3.579.2.593 Social History Date Type Detail Facility Start: 10-06-2021 End: 07-27-2023 Tobacco smoking status Never smoked tobacco (finding) [facility] Sex Assigned At Male [facility] Tobacco smoking status Never [facility] Start: 1955 Sex Assigned At Male [facility] Medical Equipment Procedure Code Equipment Code [...] 11-09-2022 Functional Status N/A [facility] Clinical Notes 10-06-2021 to 07-29-2023 Note Date & Type Note Facility 07-29-2023 Evaluation note Encounter Date Diagnosis Assessment Notes Jul, Type 2 diabetes mellitus with hyperglycemia , without long-term current use of insulin (ICD-10 - E11.65) [facility] Other 01-22-2024 Evaluation note* Encounter Date Diagnosis [...] index [BMI] 32.0-32.9, adult (ICD-10 - Z68.32) [facility] Other 11-24-2023 Evaluation note* Encounter Date Diagnosis [...] Microalbumin, Dilated eye exam and Foot exam [facility] Other 11-15-2023 Evaluation note* Encounter Date Diagnosis [...] flares Sep, Thrombocytopenia, unspecified (ICD-10 - D69.6) [facility] Other 11-15-2023 Evaluation note* Encounter Date Diagnosis [...] flares Sep, Thrombocytopenia, unspecified (ICD-10 - D69.6) [facility] Other 11-08-2023 Evaluation note* Encounter Date Diagnosis Assessment Notes Treatment Notes Treatment Clinical Notes Apr, Screening PSA (prostate specific antigen) (ICD-10 - Z12.5) Apr, Type 2 diabetes mellitus with hyperglycemia, without long-term current use of insulin (ICD-10 - E11.65) Apr, Elevated cholesterol (ICD-10 - E78.00) Apr, Primary hypertension (ICD-10 - I10) Sep, Thrombocytopenia, unspecified (ICD-10 - D69.6) Thrombocytopenia [facility] Other 07-12-2023 Evaluation note* Encounter Date Diagnosis [...] (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 (ICD-10 - Z79.4) [facility] Other 05-26-2023 Hospital Discharge instructions Patient Education [...] treatment? Where to find more information [employer]: www.cancer.org [employer]: www.auanet.org Contact a health care [...] provider. Document Revised: 11/27/2021 Document Reviewed: 11/27/2021 Seriously Patient Education 2022 [employer]. Follow Up Care 10/06/2021 08:40:21 With:JOSE MCMANUS, Hola Rushing, URL Address: [facility] [address] , [place] [address]- When: Unknown [facility] 05-08-2023 Evaluation note* Encounter Date Diagnosis Assessment Notes Treatment Notes Treatment Clinical Notes October, Primary hypertension (ICD-10 - I10) [facility] Other 05-04-2023 Evaluation note* Encounter Date Diagnosis Assessment Notes Treatment Notes Treatment Clinical Notes October, Primary hypertension (ICD-10 - I10) [facility] Other 04-21-2023 Evaluation note* Encounter Date Diagnosis [...] and Glimepiride appear to be controlling BS. 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) [facility] Other 04-11-2023 Evaluation note* Encounter Date Diagnosis Assessment Notes Treatment Notes Treatment Clinical Notes Sep, Type 2 diabetes mellitus with hyperglycemia, without long-term current use of insulin (ICD-10 - E11.65) [facility] Other 04-07-2023 Evaluation note* Encounter Date Diagnosis Assessment Notes Treatment Notes Treatment Clinical Notes Sep, Type 2 diabetes mellitus with hyperglycemia (ICD-10 - E11.65) [facility] Other 03-09-2023 Evaluation note* Encounter Date Diagnosis [...] Reviewed red flag symptoms and nerve impingement [facility] Other 02-28-2023 Evaluation note* Encounter Date Diagnosis Assessment Notes Treatment Notes Treatment Clinical Notes Jul, Type 2 diabetes mellitus with hyperglycemia, without long-term current use of insulin (ICD-10 - E11.65) [facility] Other 04-22-2022 Hospital Discharge instructions Patient Education [...] urethra. Follow these instructions at home: Take [id number] and prescription medicines only as told by [...] 06/03/2006 Document Revised: 04/28/2019 Document Reviewed: 07/08/2017 Seriously Patient Education 2020 [employer]. Follow Up Care 10/03/2020 15:00:49 With:Hola GARCIA MD, URL Address: [facility] [address], [place] [phone] When:10/06/2022 [facility] evaluation + Plan note Future Appointments Appointment Date:10/12/2022 08:00:00 AM Scheduled Provider:Hola GARCIA MD Location:[facility] Appointment Type:URO Office Visit Diagnostic Tests Pending * PSA Total 10/06/21 [facility] evaluation + Plan note Future Appointments Appointment Date:11/18/2023 08:45:00 AM Scheduled Provider:Hola GARCIA MD Location:[facility] Appointment Type:URO Office Visit Diagnostic Tests Pending * PSA Free & Total 11/09/22 [facility] evaluation [email or web address] Other evaluation noteNo [facility] Other evaluation note* Diagnosis Onset Date Resolution Status Elevated cholesterol acute Gastroesophageal reflux dise ase with esophagitis without hemorrhage acute Obesity acute Primary hypertension acute Spondylosis without myelopat hy or radiculopathy, lumbar region acute Type 2 diabetes mellitus with hyperglycemia [facility] Work Phone: Evaluation note* Diagnosis Onset Date Resolution Status Elevated cholesterol acute Gastroesophageal reflux dise ase with esophagitis without hemorrhage acute Primary hypertension acute Spondylosis without myelopat hy or radiculopathy, lumbar region acute Type 2 diabetes mellitus with hyperglycemia acute [facility] Work Phone: History general Narrative - [...] CYSTOSCOPY 2016 Hospitalization History SEE SURGICAL HX [facility] Other History general Narrative - ReportedNort [facility] Other History general Narrative - Reported* Type [...] CYSTOSCOPY 2016 Hospitalization History SEE SURGICAL HX [facility] Other Hospital course Narrative No data available for this section [facility] [employer] progress note No data available for this section [facility] Summary Purpose Family History No Family History [...] well ness visit, initial (Z00.00) Referral Organization [facility] Referring Provider First Name Bogdan Referring Provider Last Name Peter Referring Provider Specialty Internal Me dicine Referred Organization [facility] Referred Provider Swapnil French Referred Address [address], [place],[address] Referred Provider Specialty Pain Medicin e Referral [...] Notes Include XR lumbar sp ine f: [id number] Chief Complaint and Reason for Visit Chief [...] section and content) DATE CREATED AUTHOR 07/30/2021 [facility] DATE CREATED AUTHOR AUTHOR'S ORGANIZ ATION 08/22/2022 [facility] DATE CREATED AUTHOR AUTHOR'S ORGANIZ ATION 11/14/2023 [facility] DATE CREATED AUTHOR AUTHOR'S ORGANIZ ATION 05/09/2024 [facility] REASON FOR VISIT (unrecogniz ed section and content) BS readingsElevated blood cifuentes [id number] [facility] ResultsBP readingsrefillelevated BPMedication4 MONTH FOLLOW UP [...] BE BASED ON THE PRIMARY CLINICAL RECORDS. [facility] [email or web address] [facility]. provides no warranty or guarantee of the accuracy or completeness of information in this document.
--- NOTE | 2024-06-01 14:22 | PM.CN ---
Consult Note: HPI Data of Consult Patient: known to practice within the last 3 years Consult date: 06/01/24 Requesting Physician: Dm Cyr MD Primary Care Provider: Bogdan Green, Consult Narrative Reason for consult: low back, bilateral lower extremity pain Narrative: 68yom who presents for assessment. notes that he still feels pretty good from his recent lumbar tfesis, but can feel some pain returning in low back and bilateral lower extremities. mri reviewed, significant for moderate to severe canal stenosis at l4-5. lumbar xr with flexion and extension does not show any significant instability with movement. continues to stay very active at home. uses otc meds as needed. denies adverse med side effects. cc:: CC: Dm Cyr MD Review of Systems ROS Status of ROS 10 or more systems reviewed and unremarkable except as noted in history and below [facility] Medical History History of stress test ?Z92.89 - Personal history of other medical treatment (ICD-10) Acid reflux ?K21.9 - Gastro-esophageal reflux disease without esophagitis (ICD-10) Diabetes ?E11.9 - Type 2 diabetes mellitus without complications (ICD-10) HTN (hypertension) ?I10 - Essential (primary) hypertension (ICD-10) Surgical History History of hernia repair ?Z98.890 - Other specified postprocedural states (ICD-10) ?Z87.19 - Personal history of other diseases of the digestive system (ICD-10) Meds Home Medications and Allergies Home Medications ?Medication ?Instructions ?Recorded ?Confirmed ?Type allopurinol 100 mg tablet 100 mg PO DAILY 06/14/23 05/04/24 History amlodipine 5 mg tablet 5 mg PO DAILY 06/14/23 05/04/24 History atorvastatin 10 mg tablet 10 mg PO DAILY 06/14/23 05/04/24 History benazepril 5 mg tablet 20 mg PO DAILY 06/14/23 05/04/24 History finasteride 5 mg tablet 5 mg PO DAILY 06/14/23 05/04/24 History glimepiride 4 mg tablet 4 mg PO DAILY 06/14/23 05/04/24 History insulin glargine 100 unit/mL (3 25 unit subcut DAILY 06/14/23 05/04/24 History mL) subcutaneous pen (Lantus Solostar U-100 Insulin) latanoprost 0.005 % eye drops 1 drp ophthalmic (eye) DAILY 06/14/23 05/04/24 History metformin 1,000 mg tablet 1,000 mg PO BID 06/14/23 05/04/24 History tamsulosin 0.4 mg capsule 0.4 mg PO Q24H 06/14/23 05/04/24 History cetirizine 10 mg capsule (All Day 10 mg PO DAILY PRN allergy symptoms 06/24/23 05/04/24 History Allergy (cetirizine)) omeprazole 10 mg capsule,delayed 10 mg PO DAILY 06/24/23 05/04/24 History release dulaglutide 0.75 mg/0.5 mL 0.75 mg subcut QWEEK 08/07/23 05/04/24 History subcutaneous pen injector (Trulicity) Allergies Allergy/AdvReac Type Severity Reaction Status Date / Time No Known Drug Allergies Allergy Verified 05/04/24 10:11 Exam Narrative Exam Narrative: Psych-alert and oriented x 3. Attentive and appropriate, constitutionally normal, displays normal mood and affect per situation. There are no obvious deficits in memory, reasoning, or intellect.? Skin-no obvious rashes, bruising, erythema noted to the patient's area of pain.? Extremities- extremities are warm with minimal edema and palpable pulses. Lumbar-tenderness to palpation noted in the lumbar spine and paraspinal musculature. Pain is not elicited with flexion, extension, and lateral rotation of the lumbar spine. Range of motion is not diminished with these motions. Facet loading maneuvers are negative.? Strength-noted to be unremarkable with the exception of decreased strength rated at 4 out of 5 in bilateral quadriceps femoris, anterior tibialis. Sensory-no notable sensory deficits in the bilateral lower extremities to touch or pinprick in all dermatomal distributions with the exception to decreased sensation to the bilateral L4, 5 dermatomal distribution Coordination remains intact.? Gait remains non-antalgic. Assessment and Plan Assessment and Plan (1) Lumbar stenosis with neurogenic claudication: Plan 68yom who presents for assessment. failed conservative measures, as noted. imaging reviewed, as noted. has had significant response historically with lumbar tfesis. discussed that given findings on mri, coupled with his symptoms and response to tfesis, he would be good candidate for vertiflex at l4-5. he is interested and will call to schedule after holidays. meds reviewed, no changes. follow up after procedure.
== END 2024-06-01 13:35 | disposition home or self-care (01) ==
LOC: PM 13:34
PROVIDERS: PCP Internal Medicine; Visit Provider Anesthesiology
DX: M48.062 Spinal stenosis, lumbar region with neurogenic claudication (principal)
CPT/HCPCS: G0463

== ENCOUNTER 2024-08-27 12:38 | Outpatient (OUT) | payer MEDICARE, BC, SELFPAY ==
--- OUTSIDE RECORDS SUMMARY | 2024-08-27 12:44 | XMS_ITS | CCD ---
Author Organization [facility] [place] [facility] Care Team Providers Care Video Photographer Name Role Phone BOGDAN GREEN Primary Care [...] Unavailable Klarissa MCMANUS, Dm Santos Attending Unavailable Ball Bogdan SANTOS Primary Care Unavail able Allergies Allergy Classification Reported Allergen(s) Allergy Type Date of Onset Reaction(s) Facility (2 sources) patient allergy list reviewed by nurse or physicia Propensity to adverse reactions 6 Comment:Done Horrance Other (2 sources) No Known Medication Allergies; Translations: [No Known Medication Allergies] Propensity to adverse reactions (disorder) [facility] Repository Medications Current Medications Medication Drug Class(es) [...] bid for 5 days Apr, Active Pen Saltese 5/16 (15 sources) Start: 09-27-2022 Start: 09-27-2022 Pen Saltese 5/ 16 Use to inject insulin qd [...] acid 4700 mg / polyethylene glycol 3350 [id number] mg / potassium chloride 1015 mg / [...] Other prison (current) drug therapy; Translations: [OTH 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 AIDE CURRENT DRUG THERAPY] Onset: 07-03-2022 Episodic Other aftercare (1 source) 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; Translations: [CHILD CARE AIDE USE ORAL HYPOGLYCEMIC DX] Onset: 07-03-2022 Episodic Other aftercare (15 sources) Long-term current use of insulin; Translations: [[facility] (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] Episodic Other aftercare (2 sources) [facility] (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 Episodic Other aftercare (2 sources) Long-term current use of drug therapy; Translations: [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] Episodic Other and unspecified [...] Test Name Value Interpretation Reference Range Facility POC Glucose Randomon 025 Glucose [Mass/Vol] 147 mg/dL High 70-99 [facility] Comment on above: Performed By: #### C [id number] #### [address] [address] Glucose mean value [Mass/vol ume] in Blood Estimated from glycated hemoglobinon 02-11-2024 Average glucose Estimated from glycated hemoglobin (Bld) [Mass/Vol] 169 mg/dL [facility] 02-11-2024 HbA1c (Bld) [Mass fraction] 7.5 % High 4.5-6.2 [facility] Comment on above: ADA RECOMMENDED LIMI T 4.0 - 6.0ADA THERAPEUTIC TARGET < 7.0ACTION SUGGESTED> 7.0 Glucose mean value [Mass/vol ume] in Blood Estimated from glycated hemoglobinon 10-12-2023 Average glucose Estimated from glycated hemoglobin (Bld) [Mass/Vol] 180 mg/dL [facility] 10-12-2023 HbA1c (Bld) [Mass fraction] 7.9 % 4.5-6.2 [facility] Comment on above: ADA RECOMMENDED LIMI T 4.0 - 6.0ADA THERAPEUTIC TARGET < 7.0ACTION SUGGESTED> 7.0 GLYCOHEMOGLOBIN A1Con 2022 ADA RECOMMENDATION SEE BELOW Normal [facility] Comment on above: Result Comment: ADA RECOMMENDED LIMIT 4.0 - 6.0 ADA THERAPEUTIC TARGET < 7.0 ACTION SUGGESTED > 7.0 Performed By: #### B MP, LIPID, ALT, URIC #### [facility] [address] [place] [address] Dr. Jorge L Carey Glucose [Mass/Vol] 148 mg/dL Normal [facility] Comment on above: Performed By: #### B MP, LIPID, ALT, URIC #### [facility] [address] [address] [address] Jorge L Carey HbA1c (Bld) [Mass fraction] 6.8 % Critically high 4.5-6.2 [facility] Comment on above: Performed By: #### B MP, LIPID, ALT, URIC #### [facility] [address] [address] [address] Jorge L Carey CARDIAC DANAY ADMITon 023 CK [Catalytic activity/Vol] 59 U/L Normal 39-308 [facility] Comment on above: Performed By: #### C MP, CMADM #### [facility] [address] [place] [address] Dr. Jorge L Carey CK.MB [Mass/Vol] 0.99 ng/mL Normal <=3.60 [facility] Comment on above: Performed By: #### C MP, CMADM #### [facility] [address] [address] [address] Jorge L Carey HSTROP 10.0 pg/mL Normal 4.0-76.1 [facility] Comment on above: Result Comment: CUT- OFF POINTS HAVE BEEN ESTABLISHED BASED ON THE FOURTH UNIVERSAL DEFINITIONS OF MYOCARDIAL INFARCTION. THE UPPER REFERENCE LIMIT (URL) OF TROPONIN, DEFINED THE 99TH PERCENTILE OF cTnI DISTRIBUTION IN A REFERENCE POPULATION, HAS BEEN CONFIRMED THE DECISION THRESHOLD FOR IN DIAGNOSIS. Performed By: #### C IGGY, CMADM #### [facility] [address] [place] [address] Dr. Jorge L Carey GARLAND 52 ng/mL Normal 16-96 [facility] Comment on above: Performed By: #### C IGGY, CMADM #### [facility] [address] [place] [address] Dr. Jorge L Carey CBC AUTO DIFFon 07-01-2022 BASO # 0.0 103/ul Normal 0.0-0.1 [facility] Comment on above: Performed By: #### B MP, LIPID, ALT, URIC #### [facility] [address] [place] [address] Dr. Jorge L Carey Basophils/100 WBC (Bld) 0.3 % Normal 0.2-2.0 [facility] Comment on above: Performed By: #### B MP, LIPID, ALT, URIC #### [facility] [address] [place] [address] Dr. Jorge L Carey EO # 0.1 103/ul Normal 0.0-0.7 [facility] Comment on above: Performed By: #### B MP, LIPID, ALT, URIC #### [facility] [address] [place] [address] Dr. Jorge L Carey Eosinophils/100 WBC (Bld) 0.9 % Normal 0.9-7.0 [facility] Comment on above: Performed By: #### B MP, LIPID, ALT, URIC #### [facility] [address] [place] [address] Dr. Jorge L Carey Erythrocyte distribution width (RBC) [Ratio] 11.7 % Normal 11.0-15.0 [facility] Comment on above: Performed By: #### B MP, LIPID, ALT, URIC #### [facility] [address] [place] [address] Dr. Jorge L Carey Hematocrit (Bld) [Volume fraction] 41.1 % Critically low 42.0-54.0 [facility] Comment on above: Performed By: #### B MP, LIPID, ALT, URIC #### [facility] [address] [place] [address] Dr. Jorge L Carey Hemoglobin (Bld) [Mass/Vol] 14.5 g/dL Normal 14.0-18.0 [facility] Comment on above: Performed By: #### B MP, LIPID, ALT, URIC #### [facility] [address] [place] [address] Dr. Jorge L Carey IG # 0.02 10e3/ul Normal 0.00-0.03 [facility] Comment on above: Performed By: #### B MP, LIPID, ALT, URIC #### [facility] [address] [place] [address] Dr. Jorge L Carey IG % 0.3 % Normal 0.0-0.5 [facility] Comment on above: Performed By: #### B MP, LIPID, ALT, URIC #### [facility] [address] [place] [address] Dr. Jorge L Carey LYMPH # 1.1 103/ul Critically low 1.2-3.8 [facility] Comment on above: Performed By: #### B MP, LIPID, ALT, URIC #### [facility] [address] [place] [address] Dr. Jorge L Carey Lymphocytes/100 WBC (Bld) 16.6 % Critically low 20.5-60.0 [facility] Comment on above: Performed By: #### B MP, LIPID, ALT, URIC #### [facility] [address] [place] [address] Dr. Jorge L Carey MANUAL DIFF REQ NO Normal [facility] Comment on above: Performed By: #### B MP, LIPID, ALT, URIC #### [facility] [address] [place] [address] Dr. Jorge L Carey MCH (RBC) [Entitic mass] 30.1 pg Normal 25.9-34.0 [facility] Comment on above: Performed By: #### B MP, LIPID, ALT, URIC #### [facility] [address] [place] [address] Dr. Jorge L Carey MCHC (RBC) [Mass/Vol] 35.3 g/dL Critically high 29.9-35.2 [facility] Comment on above: Performed By: #### B MP, LIPID, ALT, URIC #### [facility] [address] [place] [address] Dr. Jorge L Carey MCV (RBC) [Entitic vol] 85.4 fL Normal 80.0-94.0 [facility] Comment on above: Performed By: #### B MP, LIPID, ALT, URIC #### [facility] [address] [place] [address] Dr. Jorge L Carey MONO # 0.4 103/ul Normal 0.3-0.8 [facility] Comment on above: Performed By: #### B MP, LIPID, ALT, URIC #### [facility] [address] [place] [address] Dr. Jorge L Carey Monocytes/100 WBC (Bld) 5.1 % Normal 1.7-12.0 [facility] Comment on above: Performed By: #### B MP, LIPID, ALT, URIC #### [facility] [address] [place] [address] Dr. Jorge L Carey NEUT # 5.3 103/ul Normal 1.4-6.5 [facility] Comment on above: Performed By: #### B MP, LIPID, ALT, URIC #### [facility] [address] [place] [address] Dr. Jorge L Carey Neutrophils/100 WBC (Bld) 76.8 % Critically high 43.0-75.0 [facility] Comment on above: Performed By: #### B MP, LIPID, ALT, URIC #### [facility] [address] [place] [address] Dr. Jorge L Carey Platelet mean volume (Bld) [Entitic vol] 12.1 fL Normal 9.5-13.5 [facility] Comment on above: Performed By: #### B MP, LIPID, ALT, URIC #### [facility] [address] [place], [place] [address] Dr. Jorge L Carey PLT 147 103/ul Critically low 150-450 [facility] Comment on above: Performed By: #### B MP, LIPID, ALT, URIC #### [facility] [address] [place], [place] [address] Dr. Jorge L Carey RBC 4.81 106/ul Normal 4.70-6.10 [facility] Comment on above: Performed By: #### B MP, LIPID, ALT, URIC #### [facility] [address] [place], [place] [address] Dr. Jorge L Carey WBC 6.9 103/ul Normal 4.0-11.0 [facility] Comment on above: Performed By: #### B MP, LIPID, ALT, URIC #### [facility] [address] [address] [address] Jorge L Carey CT HEAD WO [...] by: MALENA LÓPEZ Date: 2022-07-01 20:24 Normal [facility] Covid-19 PCR (CVDTBH)on 06-17 SARS-CoV-2 (COVID-19) RNA EDVIN+probe Ql (Unsp spec) Not detected Normal NOT DETECTED [facility] Comment on above: Result Comment: [...] for this test is supported by the Explosives Handler of Health and Human Service's declaration that [...] used). Performed By: #### C VDTBH #### [facility] [address] [place] [address] Dr. Jorge L Carey D-DIMERon 07-01-2022 D-DIMER 0.21 mg/L FEU Normal <=0.59 [facility] [place] [facility] Comment on above: Performed By: #### B MP, LIPID, ALT, URIC #### [facility] [address] [place] [address] Dr. Jorge L Carey D-DIMER COMMENTS SEE BELOW Normal [facility] Comment on above: Result Comment: Incr [...] #### B MP, LIPID, ALT, URIC #### [facility] [address] [place] [address] Dr. Jorge L Carey ER URINE PROFILEon 3 Bilirubin Ql (U) Negative Normal NEGATIVE [facility] Comment on above: Performed By: #### B MP, LIPID, ALT, URIC #### [facility] [address] [place] [address] Dr. Jorge L Carey Clarity (U) CLEAR Normal CLEAR [facility] Comment on above: Performed By: #### B MP, LIPID, ALT, URIC #### [facility] [address] [address] [address] Jorge L Carey Color (U) LT. YELLOW Normal YELLOW [facility] Comment on above: Performed By: #### B MP, LIPID, ALT, URIC #### [facility] [address] [place] [address] Dr. Jorge L HERNANDEZ A micrscopic examination will be performed if indicated. Normal [facility] Comment on above: Performed By: #### B MP, LIPID, ALT, URIC #### [facility] [address] [place] [address] Dr. Jorge L Carey Glucose Ql (U) Negative Normal NEGATIVE [facility] Comment on above: Performed By: #### B MP, LIPID, ALT, URIC #### [facility] [address] [place] [address] Dr. Jorge L Carey Hemoglobin Ql (U) Negative Normal NEGATIVE [facility] Comment on above: Performed By: #### B MP, LIPID, ALT, URIC #### [facility] [address] [place] [address] Dr. Jorge L Carey Ketones Ql (U) Negative Normal NEGATIVE [facility] Comment on above: Performed By: #### B MP, LIPID, ALT, URIC #### [facility] [address] [place] [address] Dr. Jorge L Carey LEUKOCYTES Negative Normal NEGATIVE [facility] Comment on above: Performed By: #### B MP, LIPID, ALT, URIC #### [facility] [address] [place] [address] Dr. Jorge L Carey Nitrite Ql (U) Negative Normal NEGATIVE [facility] Comment on above: Performed By: #### B MP, LIPID, ALT, URIC #### [facility] [address] [address] [address] Jorge L Carey pH (U) 6.0 [pH] Normal 5-9 [facility] Comment on above: Performed By: #### B MP, LIPID, ALT, URIC #### [facility] [address] [address] [address] Jorge L Carey SPEC GRAVITY 1.020 Normal 1.005-<=1.025 [facility] Comment on above: Performed By: #### B MP, LIPID, ALT, URIC #### [facility] [address] [address] [address] Jorge L Carey UA PROTEIN Negative Normal NEGATIVE/ TRACE [facility] Comment on above: Performed By: #### B MP, LIPID, ALT, URIC #### [facility] [address] [place] [address] Dr. Jorge L Carey UR MICRO IND NOT INDICATED Normal [facility] Comment on above: Performed By: #### B MP, LIPID, ALT, URIC #### [facility] [address] [place] [address] Dr. Jorge L Carey Urobilinogen Qn (U) 1.0 {Ila'U}/dL Normal 0.2 - 1. 0 [facility] Comment on above: Performed By: #### B MP, LIPID, ALT, URIC #### [facility] [address] [place] [address] Dr. Jorge L Carey [facility] Normal [facility] Comment on above: Result Comment: Nega tive for Flu A protein angiten. Infection due to Flu A cannot be ruled out. Flu A angiten in the sample may be below the detection limit of the test. Performed By: #### I NFLUAB #### [facility] [address] [place] [address] Dr. Jorge L Carey INFLUBNEG SEE BELOW Normal [facility] Comment on above: Result Comment: Nega tive for Flu B protein antigen. Infection due to Flu B cannot be ruled out. Flu B antigen in the sample may be below the detection limit of the test. Performed By: #### I NFLUAB #### [facility] [address] [place] [address] Dr. Jorge L Carey INFLUENZA A AG Negative Normal NEGATIVE SEE COMMENT [facility] Comment on above: Performed By: #### I NFLUAB #### [facility] [address] [place] [address] Dr. Jorge L Carey INFLUENZA B AG Negative Normal NEGATIVE SEE COMMENT [facility] Comment on above: Performed By: #### I NFLUAB #### [facility] [address] [place] [address] Dr. Jorge L Carey POINT OF CARE GLUCOSEon 06-17 Glucose [Mass/Vol] 130 mg/dL Critically high 74-106 [facility] Comment on above: Performed By: #### B MP, LIPID, ALT, URIC #### [facility] [address] [place] [address] Dr. Jorge L Carey PROF 14(COMP METB)on 023 Albumin [Mass/Vol] 3.7 g/dL Normal 3.4-5.0 [facility] Comment on above: Performed By: #### C CEE PARKINSON #### [facility] [address] [place] [address] Dr. Jorge L Carey Albumin/Globulin [Mass ratio] 1.2 {ratio} Normal [facility] Comment on above: Performed By: #### C CEE PARKINSON #### [facility] [address] [place] [address] Dr. Jorge L Carey ALP [Catalytic activity/Vol] 49 U/L Normal 46-116 [facility] Comment on above: Performed By: #### C CEE PARKINSON #### [facility] [address] [place] [address] Dr. Jorge L Carey ALT [Catalytic activity/Vol] 30 U/L Normal 16-63 [facility] Comment on above: Performed By: #### C CEE PARKINSON #### [facility] [address] [place] [address] Dr. Jorge L Carey Anion gap [Moles/Vol] 12.7 mmol/L Normal [facility] Comment on above: Performed By: #### C IGGY, CMADM #### [facility] [address] [place] [address] Dr. Jorge L Carey AST [Catalytic activity/Vol] 21 U/L Normal 15-37 [facility] Comment on above: Performed By: #### C IGGY, CMADM #### [facility] [address] [place] [address] Dr. Jorge L Carey Bilirubin [Mass/Vol] 0.5 mg/dL Normal 0.2-1.0 [facility] Comment on above: Performed By: #### C IGGY, CMADM #### [facility] [address] [place] [address] Dr. Jorge L Carey Calcium [Mass/Vol] 8.9 mg/dL Normal 8.5-10.1 [facility] Comment on above: Performed By: #### C IGGY, CMADM #### [facility] [address] [place] [address] Dr. Jorge L Carey Chloride [Moles/Vol] 100 mmol/L Normal 98-107 [facility] Comment on above: Performed By: #### C IGGY, RAMYDM #### [facility] [address] [place] [address] Dr. Jorge L Carey CO2 [Moles/Vol] 29.0 mmol/L Normal 21.0-32.0 [facility] Comment on above: Performed By: #### C IGGY, CMADM #### [facility] [address] [place] [address] Dr. Jorge L Carey Creatinine [Mass/Vol] 1.04 mg/dL Normal 0.70-1.30 [facility] Comment on above: Performed By: #### C IGGY, CMADM #### [facility] [address] [place] [address] Dr. Jorge L Carey EGFR-AF MICRONESIAN >60 Normal >=60 [facility] Comment on above: Performed By: #### C IGGY, RAMYDM #### [facility] [address] [place] [address] Dr. Jorge L Carey EGFR-NON AF MICRONESIAN >60 Normal >=60 [facility] Comment on above: Performed By: #### C IGGY, CMADM #### [facility] [address] [address] [address] Jorge L Carey Globulin (S) [Mass/Vol] 3.1 g/dL Normal [facility] Comment on above: Performed By: #### C IGGY, CMADM #### [facility] [address] [address] [address] Jorge L Carey Glucose [Mass/Vol] 140 mg/dL Critically high 74-106 [facility] Comment on above: Performed By: #### C IGGY, RAMYDM #### [facility] [address] [place] [address] Dr. Jorge L Carey Potassium [Moles/Vol] 3.7 mmol/L Normal 3.5-5.1 [facility] Comment on above: Performed By: #### C RAMY PARKINSONDM #### [facility] [address] [place] [address] Dr. Jorge L Carey Protein [Mass/Vol] 6.8 g/dL Normal 6.4-8.2 [facility] Comment on above: Performed By: #### C RAMY PARKINSONDM #### [facility] [address] [place] [address] Dr. Jorge L Carey Sodium [Moles/Vol] 138 mmol/L Normal 136-145 [facility] Comment on above: Performed By: #### C IGGY, RAMYDM #### [facility] [address] [place] [address] Dr. Jorge L Carey Urea nitrogen [Mass/Vol] 13.0 mg/dL Normal 7.0-18.0 [facility] Comment on above: Performed By: #### C RAMY PARKINSONDM #### [facility] [address] [place] [address] Dr. Jorge L Carey Urea nitrogen/Creatinine [Mass ratio] 12.5 mg/mg Normal [facility] Comment on above: Performed By: #### C RAMY PARKINSONDM #### [facility] [address] [place] [address] Dr. Jorge L Carey TROPONIN, HIGH SENSITIVITYon 07-01-2022 HSTROP 10.9 pg/mL Normal 4.0-76.1 [facility] Comment on above: Result Comment: CUT- OFF POINTS HAVE BEEN ESTABLISHED BASED ON THE FOURTH UNIVERSAL DEFINITIONS OF MYOCARDIAL INFARCTION. THE UPPER REFERENCE LIMIT (URL) OF TROPONIN, DEFINED THE 99TH PERCENTILE OF cTnI DISTRIBUTION IN A REFERENCE POPULATION, HAS BEEN CONFIRMED THE DECISION THRESHOLD FOR IN DIAGNOSIS. Performed By: #### B MP, LIPID, ALT, URIC #### [facility] [address] [place] [address] Dr. Jorge L Carey XR CHEST 1 [...] FILIPPO MASTERS Date: 2022-07-01 19:57 Normal [facility] CBC AUTO DIFFon 04-18-2022 BASO # 0.0 103/ul Normal 0.0-0.1 [facility] Comment on above: Performed By: #### C BC #### [facility] [address] [place] [address] Dr. Jorge L Carey Basophils/100 WBC (Bld) 0.7 % Normal 0.2-2.0 [facility] Comment on above: Performed By: #### C BC #### [facility] [address] [place] [address] Dr. Jorge L Carey EO # 0.2 103/ul Normal 0.0-0.7 [facility] Comment on above: Performed By: #### C BC #### [facility] [address] [place] [address] Dr. Jorge L Carey Eosinophils/100 WBC (Bld) 2.6 % Normal 0.9-7.0 [facility] Comment on above: Performed By: #### C BC #### [facility] [address] [place] [address] Dr. Jorge L Carey Erythrocyte distribution width (RBC) [Ratio] 11.5 % Normal 11.0-15.0 [facility] Comment on above: Performed By: #### C BC #### [facility] [address] [place] [address] Dr. Jorge L Carey Hematocrit (Bld) [Volume fraction] 44.7 % Normal 42.0-54.0 [facility] Comment on above: Performed By: #### C BC #### [facility] [address] [place] [address] Dr. Jorge L Carey Hemoglobin (Bld) [Mass/Vol] 15.5 g/dL Normal 14.0-18.0 [facility] Comment on above: Performed By: #### C BC #### [facility] [address] [place] [address] Dr. Jorge L Carey IG # 0.01 10e3/ul Normal 0.00-0.03 [facility] Comment on above: Performed By: #### C BC #### [facility] [address] [place] [address] Dr. Jorge L Carey IG % 0.2 % Normal 0.0-0.5 [facility] Comment on above: Performed By: #### C BC #### [facility] [address] [place] [address] Dr. Jorge L Carey LYMPH # 1.3 103/ul Normal 1.2-3.8 [facility] Comment on above: Performed By: #### C BC #### [facility] [address] [place] [address] Dr. Jorge L Carey Lymphocytes/100 WBC (Bld) 21.3 % Normal 20.5-60.0 [facility] Comment on above: Performed By: #### C BC #### [facility] [address] [place] [address] Dr. Jorge L Carey MANUAL DIFF REQ NO Normal [facility] Comment on above: Performed By: #### C BC #### [facility] [address] [place] [address] Dr. Jorge L Carey MCH (RBC) [Entitic mass] 30.1 pg Normal 25.9-34.0 [facility] Comment on above: Performed By: #### C BC #### [facility] [address] [place] [address] Dr. Jorge L Carey MCHC (RBC) [Mass/Vol] 34.7 g/dL Normal 29.9-35.2 [facility] [facility] Comment on above: Performed By: #### C BC #### [facility] [address] [place] [address] Dr. Jorge L Carey MCV (RBC) [Entitic vol] 86.8 fL Normal 80.0-94.0 [facility] Comment on above: Performed By: #### C BC #### [facility] [address] [place] [address] Dr. Jorge L Carey MONO # 0.4 103/ul Normal 0.3-0.8 [facility] Comment on above: Performed By: #### C BC #### [facility] [address] [place] [address] Dr. Jorge L Carey Monocytes/100 WBC (Bld) 7.2 % Normal 1.7-12.0 [facility] Comment on above: Performed By: #### C BC #### [facility] [address] [place] [address] Dr. Jorge L Carey NEUT # 4.1 103/ul Normal 1.4-6.5 [facility] Comment on above: Performed By: #### C BC #### [facility] [address] [place] [address] Dr. Jorge L Carey Neutrophils/100 WBC (Bld) 68.0 % Normal 43.0-75.0 [facility] Comment on above: Performed By: #### C BC #### [facility] [address] [place] [address] Dr. Jorge L Carey Platelet mean volume (Bld) [Entitic vol] 12.0 fL Normal 9.5-13.5 [facility] Comment on above: Performed By: #### C BC #### [facility] [address] [place] [address] Dr. Jorge L Carey PLT 163 103/ul Normal 150-450 [facility] Comment on above: Performed By: #### C BC #### [facility] [address] [address] [address] Jorge L Carey RBC 5.15 106/ul Normal 4.70-6.10 [facility] Comment on above: Performed By: #### C BC #### [facility] [address] [address] [address] Jorge L Carey WBC 6.1 103/ul Normal 4.0-11.0 [facility] Comment on above: Performed By: #### C BC #### [facility] [address] [address] [address] Jorge L Carey GLYCOHEMOGLOBIN A1Con 2021 ADA RECOMMENDATION SEE BELOW Normal [facility] Comment on above: Result Comment: ADA RECOMMENDED LIMIT 4.0 - 6.0 ADA THERAPEUTIC TARGET < 7.0 ACTION SUGGESTED > 7.0 Performed By: #### B MP, LIPID, ALT, URIC #### [facility] [address] [address] [address] Jorge L Carey Glucose [Mass/Vol] 146 mg/dL Normal [facility] Comment on above: Performed By: #### B MP, LIPID, ALT, URIC #### [facility] [address] [address] [address] Jorge L Carey HbA1c (Bld) [Mass fraction] 6.7 % Critically high 4.5-6.2 [facility] Comment on above: Performed By: #### B MP, LIPID, ALT, URIC #### [facility] [address] [place] [address] Dr. Jorge L Carey LIPID PROFILEon 04-18-2022 CHOL-HDL RATIO NORM SEE BELOW Normal [facility] Comment on above: Result Comment: 3.3 - 4.4 LOW RISK 4.4 - 7.1 AVERAGE RISK 7.1 - 11.0 MODERATE RISK >11.0 HIGH RISK Performed By: #### B MP, LIPID, ALT, URIC #### [facility] [address] [address] [address] Jorge L Carey Cholesterol [Mass/Vol] 117 mg/dL Normal <=200 [facility] Comment on above: Performed By: #### B MP, LIPID, ALT, URIC #### [facility] [address] [address] [address] Jorge L Carey Cholesterol in HDL [Mass/Vol] 48 mg/dL Normal 40-60 [facility] Comment on above: Performed By: #### B MP, LIPID, ALT, URIC #### [facility] [address] [address] [address] Jorge L Carey Cholesterol in LDL [Mass/Vol] 50.6 mg/dL Normal [facility] Comment on above: Performed By: #### B MP, LIPID, ALT, URIC #### [facility] [address] [address] [address] Jorge L Carey Cholesterol.total/Cho lesterol in HDL [Mass ratio] 2.4 {ratio} Normal [facility] Comment on above: Performed By: #### B MP, LIPID, ALT, URIC #### [facility] [address] [address] [address] Jorge L Carey HDL NORMAL > or = 60 mg/dl - LOW CARDIOVASCULAR RISK <40 mg/dl - HIGH CARDIOVASCULAR RISK Normal [facility] Comment on above: Performed By: #### B MP, LIPID, ALT, URIC #### [facility] [address] [place] [address] Dr. Jorge L Carey LDL CALC NORMAL SEE BELOW Normal [facility] Comment on above: Result Comment: <100 mg/dl OPTIMAL 100 - 129 mg/dl NEAR OR ABOVE OPTIMAL 130 - 159 mg/dl BORDERLINE HIGH 160 - 189 mg/dl HIGH >190 mg/dl VERY HIGH Performed By: #### B MP, LIPID, ALT, URIC #### [facility] [address] [address] [address] Jorge L Carey Triglyceride [Mass/Vol] 92 mg/dL Normal <=150 [facility] Comment on above: Performed By: #### B MP, LIPID, ALT, URIC #### [facility] [address] [address] [address] Jorge L Carey VLDL CALC 18.4 mg/dL Normal [facility] Comment on above: Performed By: #### B MP, LIPID, ALT, URIC #### [facility] [address] [place] [address] Dr. Jorge L Carey MICROALBUMIN, RAND URon 11-0 mALB <1.3 Normal <=30.0 [facility] Comment on above: Performed By: #### M ALBR #### [facility] [address] [place] [address] Dr. Jorge L Carey PROF CHEM 8 (BAS METB)on Anion gap [Moles/Vol] 9.5 mmol/L Normal [facility] Comment on above: Performed By: #### B MP, LIPID, ALT, URIC #### [facility] [address] [place] [address] Dr. Jorge L Carey Calcium [Mass/Vol] 8.6 mg/dL Normal 8.5-10.1 [facility] Comment on above: Performed By: #### B MP, LIPID, ALT, URIC #### [facility] [address] [place] [address] Dr. Jorge L Carey Chloride [Moles/Vol] 102 mmol/L Normal 98-107 [facility] Comment on above: Performed By: #### B MP, LIPID, ALT, URIC #### [facility] [address] [place] [address] Dr. Jorge L Carey CO2 [Moles/Vol] 30.8 mmol/L Normal 21.0-32.0 [facility] Comment on above: Performed By: #### B MP, LIPID, ALT, URIC #### [facility] [address] [place] [address] Dr. Jorge L Carey Creatinine [Mass/Vol] 0.95 mg/dL Normal 0.70-1.30 [facility] Comment on above: Performed By: #### B MP, LIPID, ALT, URIC #### [facility] [address] [place] [address] Dr. Jorge L Carey EGFR-AF MICRONESIAN >60 Normal >=60 [facility] Comment on above: Performed By: #### B MP, LIPID, ALT, URIC #### [facility] [address] [address] [address] Jorge L Carey EGFR-NON AF MICRONESIAN >60 Normal >=60 [facility] Comment on above: Performed By: #### B MP, LIPID, ALT, URIC #### [facility] [address] [address] [address] Jorge L Carey Glucose [Mass/Vol] 142 mg/dL Critically high 74-106 T [facility] Comment on above: Performed By: #### B MP, LIPID, ALT, URIC #### [facility] [address] [place] [address] Dr. Jorge L Carey Potassium [Moles/Vol] 4.3 mmol/L Normal 3.5-5.1 [facility] Comment on above: Performed By: #### B MP, LIPID, ALT, URIC #### [facility] [address] [address] [address] Jorge L Carey Sodium [Moles/Vol] 138 mmol/L Normal 136-145 [facility] Comment on above: Performed By: #### B MP, LIPID, ALT, URIC #### [facility] [address] [address] [address] Jorge L Carey Urea nitrogen [Mass/Vol] 14.0 mg/dL Normal 7.0-18.0 [facility] Comment on above: Performed By: #### B MP, LIPID, ALT, URIC #### [facility] [address] [address] [address] Jorge L Carey Urea nitrogen/Creatinine [Mass ratio] 14.7 mg/mg Normal [facility] Comment on above: Performed By: #### B MP, LIPID, ALT, URIC #### [facility] [address] [place] [address] Dr. Jorge L Carey SGPTon 04-18-2022 ALT [Catalytic activity/Vol] 27 U/L Normal 16-63 [facility] Comment on above: Performed By: #### B MP, LIPID, ALT, URIC #### [facility] [address] [place] [address] Dr. Jorge L Carey URIC ACID SERUMon 04-18-2022 Urate [Mass/Vol] 5.5 mg/dL Normal 3.5-7.2 [facility] Comment on above: Performed By: #### B MP, LIPID, ALT, URIC #### [facility] [address] [place] [address] Dr. Jorge L Carey GLYCOHEMOGLOBIN A1Con 2021 ADA RECOMMENDATION SEE BELOW Normal [facility] Comment on above: Result Comment: ADA RECOMMENDED LIMIT 4.0 - 6.0 ADA THERAPEUTIC TARGET < 7.0 ACTION SUGGESTED > 7.0 Performed By: #### B MP, LIPID, ALT, URIC #### [facility] [address] [place] [address] Dr. Jorge L Carey Glucose [Mass/Vol] 160 mg/dL Normal [facility] Comment on above: Performed By: #### B MP, LIPID, ALT, URIC #### [facility] [address] [place] [address] Dr. Jorge L Carey HbA1c (Bld) [Mass fraction] 7.2 % Critically high 4.5-6.2 [facility] Comment on above: Performed By: #### B MP, LIPID, ALT, URIC #### [facility] [address] [place] [address] Dr. Jorge L Carey GLYCOHEMOGLOBIN A1Con 2021 ADA RECOMMENDATION ADA THERAPEUTIC TARGET 6.0 - 7.0 ACTION SUGGESTED > 7.0 Normal [facility] Comment on above: Performed By: #### B MP, LIPID, ALT, URIC #### [facility] [address] [place] [address] Dr. Jorge L Carey Glucose [Mass/Vol] 177 mg/dL Normal [facility] Comment on above: Performed By: #### B MP, LIPID, ALT, URIC #### [facility] [address] [place] [address] Dr. Jorge L Carey HbA1c (Bld) [Mass fraction] 7.8 % Critically high <=6.0 [facility] Comment on above: Performed By: #### B MP, LIPID, ALT, URIC #### [facility] [address] [place] [address] Dr. Jorge L Carey [facility] 09-17-2020 Glucose [Mass/Vol] 151 mg/dL Normal [facility] Comment on above: Result Comment: PERF ORMED BY: [facility] [address] [place] [address] PATHOLOGIST [employer] REDEMPTION CLERK SUSAN SEXTON M.D. Performed By: #### O FEDEEALETA GLYCO #### [facility] [address] HbA1c (Bld) [Mass fraction] 6.9 % High 4.3-5.6 [place] Comment on above: Result Comment: Incr eased risk for diabetes: 5.7 - 6.4 diabetes: >6.4 glycemic control for adults with diabetes: <7.0 Performed By: #### O FEDEEALETA GLYCO #### [facility] [address] Vital Signs Date Time Vital Sign Value Performing Clinician Facility 02-18-2024 09:37-0400 Body height 190.5 cm [facility] 02-18-2024 09:37-0400 Body mass index (BMI) [Ratio] 32.1 kg/m2 [place] 02-18-2024 09:37-0400 Body weight 116.74 kg [facility] 02-18-2024 09:37-0400 Diastolic blood pressure 81 mm[Hg] [place] 02-18-2024 09:37-0400 Heart rate 76 /min [facility] 02-18-2024 09:37-0400 Respiratory rate 12 /min [facility] 02-18-2024 09:37-0400 Systolic blood pressure 136 mm[Hg] [place] 10-18-2023 09:06-0400 Body height 190.5 cm [facility] 10-18-2023 09:06-0400 Body mass index (BMI) [Ratio] 31.8 kg/m2 [place] 10-18-2023 09:06-0400 Body weight 115.32 kg [facility] 10-18-2023 09:06-0400 Diastolic blood pressure 77 mm[Hg] [place] 10-18-2023 09:06-0400 Heart rate 80 /min [facility] 10-18-2023 09:06-0400 Respiratory rate 12 /min [facility] 10-18-2023 09:06-0400 Systolic blood pressure 116 mm[Hg] [place] 07-08-2023 09:00-0500 Body height 190.5 cm Bogdan Ball Other [facility] [employer] Other 07-08-2023 09:00-0500 Body mass index (BMI) [Ratio] 32.62 kg/m2 Bogdan Ball Other [facility] [employer] Other 07-08-2023 09:00-0500 Body weight 118.39 kg Bogdan Ball Other [facility] Other 07-08-2023 09:00-0500 Diastolic blood pressure 81 mm[Hg] Bogdan Ball Other [facility] Other 07-08-2023 09:00-0500 Respiratory rate 12 /min Bogdan Ball Other [facility] Other 07-08-2023 09:00-0500 Systolic blood pressure 117 mm[Hg] Bogdan Ball Other [facility] Other 05-01-2023 08:30-0500 Body height 190.5 cm Bogdan Ball Other [facility] Other 05-01-2023 08:30-0500 Body mass index (BMI) [Ratio] 32.19 kg/m2 Bogdan Ball Other [facility] Other 05-01-2023 08:30-0500 Body weight 116.85 kg Bogdan Ball Other [facility] Other 05-01-2023 08:30-0500 Diastolic blood pressure 81 mm[Hg] Bogdan Ball Other [facility] Other 05-01-2023 08:30-0500 Respiratory rate 12 /min Bogdan Ball Other [facility] Other 05-01-2023 08:30-0500 Systolic blood pressure 135 mm[Hg] Bogdan Ball Other [facility] Other 12-26-2022 08:30-0400 Body height 190.5 cm Bogdan Ball Other [facility] Other 12-26-2022 08:30-0400 Body mass index (BMI) [Ratio] 31.54 kg/m2 Bogdan Ball Other [facility] Other 12-26-2022 08:30-0400 Body weight 114.49 kg Bogdan Ball Other [facility] Other 12-26-2022 08:30-0400 Diastolic blood pressure 85 mm[Hg] Bogdan Ball Other [facility] Other 12-26-2022 08:30-0400 Respiratory rate 12 /min Bogdan Ball Other [facility] Other 12-26-2022 08:30-0400 Systolic blood pressure 139 mm[Hg] Bogdan Ball Other [facility] Other 11-09-2022 10:58-0400 Blood Pressure Location Hola JOSE [facility] 11-09-2022 10:58-0400 Diastolic blood pressure 80 mm[Hg] Hola GARCIA [facility] 11-09-2022 10:58-0400 Heart rate 78 /min Hola GARCIA [facility] 11-09-2022 10:58-0400 Respiratory rate 16 /min Hola GARCIA [facility] 11-09-2022 10:58-0400 Systolic blood pressure 130 mm[Hg] Hola GARCIA [facility] 10-05-2022 12:15-0400 Body height 190.5 cm Bogdan Ball Other [facility] [employer] Other 10-05-2022 12:15-0400 Body mass index (BMI) [Ratio] 31.17 kg/m2 Bodgan Ball Other [facility] Other 10-05-2022 12:15-0400 Body weight 113.13 kg Bogdan Ball Other [facility] [employer] Other 10-05-2022 12:15-0400 Diastolic blood pressure 95 mm[Hg] Bogdan Ball Other [facility] [employer] Other 10-05-2022 12:15-0400 Respiratory rate 12 /min Bogdan Ball Other [facility] [employer] Other 10-05-2022 12:15-0400 Systolic blood pressure 168 mm[Hg] Bogdan Ball Other [facility] Other 08-23-2022 08:30-0500 Body height 190.5 cm Bogdan Ball Other [facility] Other 08-23-2022 08:30-0500 Body mass index (BMI) [Ratio] 31.42 kg/m2 Bogdan Ball Other [facility] Other 08-23-2022 08:30-0500 Body weight 114.04 kg Bogdan Ball Other [facility] Other 08-23-2022 08:30-0500 Diastolic blood pressure 86 mm[Hg] Bogdan Ball Other [facility] Other 08-23-2022 08:30-0500 Respiratory rate 12 /min Bogdan Ball Other [facility] Other 08-23-2022 08:30-0500 Systolic blood pressure 132 mm[Hg] Bogdan Ball Other [facility] Other 10-06-2021 08:14-0400 Blood Pressure Location Hola GARCIA [facility] 10-06-2021 08:14-0400 Diastolic blood pressure 98 mm[Hg] Hola GARCIA [facility] 10-06-2021 08:14-0400 Heart rate 78 /min Hola GARCIA [facility] 10-06-2021 08:14-0400 Systolic blood pressure 145 mm[Hg] Hola GARCIA [facility] [employer] Encounters Encounter Date Encounter Type Care Provider Facility Start: 08-21-2024 End: 08-21-2024 ambulatory Dm Cyr MD Facility:[facility] Start: 06-01-2024 End: 06-01-2024 ambulatory Dm Cyr MD Facility:[facility] Start: 05-04-2024 End: 05-04-2024 ambulatory Andkathy Cyr MD Facility:[facility] Start: 04-20-2024 End: 04-20-2024 ambulatory Dm Cyr MD Facility:[facility] Start: 04-03-2024 ambulatory oHla Cid ty:[facility] Start: 02-18-2024 End: 02-18-2024 ambulatory [facility] Work Phone: Start: 02-18-2024 End: 02-18-2024 Patient encounter procedure [facility] Work Phone: Start: 02-11-2024 Non-patient / Non-visit [facility] Physician [facility] Work Phone: Start: 10-18-2023 End: 10-18-2023 ambulatory [facility] Work Phone: Start: 10-18-2023 End: 10-18-2023 Patient encounter procedure [facility] Phys[facility] Work Phone: Start: 10-12-2023 Non-patient / Non-visit [facility] Physician [facility] Work Phone: Start: 08-23-2023 Non-patient / Non-visit [facility] Physician [facility] Work Phone: Start: 08-16-2023 Non-patient / Non-visit [facility] Physician [facility] Work Phone: Start: 07-30-2023 Non-patient / Non-visit [facility] Physician [facility] Work Phone: Start: 07-29-2023 End: 07-29-2023 ambulatory Bogdan Green Other [facility] Other Start: 07-29-2023 Telephone encounter Bogdan Green [facility] Start: 07-08-2023 End: 07-08-2023 ambulatory Bogdan Green Other [facility] Other Start: 07-08-2023 Office outpatient vi sit 25 minutes Bogdan Ball [facility] Start: 05-10-2023 End: 05-10-2023 ambulatory Bogdan Ball Other [facility] Other Start: 05-10-2023 Office outpatient vi sit 15 minutes Bogdan Ball [facility] Start: 05-01-2023 End: 05-01-2023 ambulatory Bogdan Ball Other [facility] Other Start: 05-01-2023 Patient encounter procedure Bogdan Ball [facility] Start: 04-24-2023 End: 04-24-2023 ambulatory Bogdan Ball Other [facility] Other Start: 04-24-2023 Telephone encounter Bogdan Ball [facility] Start: 02-25-2023 End: 02-25-2023 ambulatory Bogdan Ball Other [facility] Other Start: 02-25-2023 Telephone encounter Bogdan Ball [facility] Start: 12-27-2022 End: 12-27-2022 ambulatory Bogdan Ball Other [facility] Other Start: 12-27-2022 Telephone encounter Bogdan Ball [facility] Start: 12-26-2022 End: 12-26-2022 ambulatory Bogdan Ball Other [facility] Other Start: 12-26-2022 Office outpatient vi sit 25 minutes Bogdan Ball [facility] Start: 11-19-2022 End: 11-19-2022 ambulatory Bogdan Ball Other [facility] Other Start: 11-19-2022 Telephone encounter Bogdan Ball [facility] Start: 11-09-2022 End: 11-09-2022 Patient encounter procedure Hola GARCIA [facility] Start: 10-22-2022 End: 10-22-2022 ambulatory Bogdan Green Other [facility] Other Start: 10-22-2022 Telephone encounter Bogdan Green [facility] Start: 10-18-2022 End: 10-18-2022 ambulatory Bogdan Green Other [facility] Other Start: 10-18-2022 Telephone encounter Bogdan Ball [facility] Start: 10-05-2022 End: 10-05-2022 ambulatory Bogdan Green Other [facility] Other Start: 10-05-2022 Office outpatient vi sit 15 minutes Bogdan Green [facility] Start: 09-27-2022 End: 09-27-2022 ambulatory Bogdan Green Other [facility] Other Start: 09-27-2022 Telephone encounter Bogdan Ball [facility] Start: 09-25-2022 End: 09-25-2022 ambulatory Bogdan Green Other [facility] Other Start: 09-25-2022 Telephone encounter Bogdan Green [facility] Start: 09-21-2022 End: 09-21-2022 ambulatory Bogdan Green Other [facility] Other Start: 09-21-2022 Telephone encounter Bogdan Ball [facility] Start: 08-23-2022 End: 08-23-2022 ambulatory Bogdan Green Other [facility] Other Start: 08-23-2022 Office outpatient vi sit 25 minutes Bogdan Ball [facility] Start: 08-17-2022 End: 08-18-[address] BOGDAN GREEN Facility: Start: 08-14-2022 End: 08-14-2022 ambulatory Bogdan Peter Other [facility] Other Start: 08-14-2022 Telephone encounter Bogdan Green [facility] Start: 07-01-2022 End: 07-01-[address] BOGDAN GREEN Facility:[facility] Start: 04-25-2022 Adult health examination Bogdan Green Other [facility] [employer] Other Start: 04-18-2022 End: 04-19-[address] BOGDAN GREEN Facility:[facility] Start: 01-20-2022 End: 01-21-2022 ambulatory NONE LISTED REQUEST Facility:[facility] Start: 10-06-2021 End: 10-06-2021 Patient encounter procedure Hola GARCIA [facility] Start: 09-16-2021 End: 09-17-[address] HOLA GARCIA . Facility:[facility] Start: 09-15-2021 End: 09-16-2021 ambulatory NONE LISTED REQUEST Facility:[facility] Start: 08-29-[address] BOGDAN GREEN Facili ty:[facility] Procedures Date Procedure Procedure Detail Performing Clinician Start: 09-16-[address] [place] Comment on above: Performed By: #### B MP, LIPID, ALT, URIC #### [facility] [address] [place] [address] Dr. Jorge L Carey Start: 03-29-2017 General [...] Care Activity Detail Author [facility] Immunizations Immunization Date Immunization Notes Care Provider Cinthia bartlett 04-29-2023 zoster vaccine recombinant Bogdan Green Other [place] 04-26-2023 influenza virus vaccine, unspecified formulation [place] 04-26-2023 influenza, high dose seasonal, preservative-free Bogdan Green Other [facility] Other 02-26-2023 zoster vaccine recombinant Bogdan Peter Other [place] 04-25-2022 pneumococcal 20-alber nt conjugate vaccine Hola GARCIA [facility] 04-16-2022 influenza virus vaccine, split virus (incl. purified surface antigen) Bogdan Green Other [facility] [employer] Other 04-16-2022 influenza virus vaccine, unspecified formulation Hola GARCIA [facility] 03-23-2022 SARS-CoV-2 (COVID-19 ) [id number] Hola GARCIA [facility] 05-08-2021 SARS-CoV-2 (COVID-19 ) mRNA BNT-162b2 vax Hola GARCIA [facility] 04-22-2021 influenza virus vaccine, split virus (incl. purified surface antigen) Bogdan Green Other [facility] Other 04-22-2021 influenza virus vaccine, unspecified formulation Hola GARCIA [facility] 03-30-2021 influenza virus vaccine, unspecified formulation Hola GARCIA [facility] 09-16-2020 COVID-19, mRNA, LNP- S, PF, 30 mcg/0.3 mL dose; Translations: [Pfizer-BioNTech COVID-19 Vaccine] Hola GARCIA [facility] Comment on above: Reason for Medicatio n: Prophylaxis 08-26-2020 COVID-19, mRNA, LNP- S, PF, 30 mcg/0.3 mL dose; Translations: [Pfizer-BioNTech COVID-19 Vaccine] Hola GARCIA [facility] Comment on above: Reason for Medicatio n: Prophylaxis 04-16-2020 influenza virus vaccine, split virus (incl. purified surface antigen) Bogdan Green Other [facility] Other 04-16-2020 influenza virus vaccine, unspecified formulation Hola GARCIA [facility] pneumococcal Conjuga te, unspecified formulation; Translations: [Need for prophylactic vaccination against Streptococcus pneumoniae (pneumococcus)] Bogdan Green Other [facility] Other Payers Date Payer Category Payer Medicare 2022 Unknown 2021 Medicare [id number] 2020 Unknown [id number] 1959 Medicare [id number] 1959 Self-pay [id number] 1959 Unknown [id number] 1959 Unknown [id number] 1956 Unknown [id number] 1956 Unknown [id number] 1956 Unknown [id number] [id number] 1955 Unknown [id number] 2.16.84 [id number] 1955 Unknown [id number] 2.16.84 [id number] 1955 Unknown [id number] 2.16.8 [id number] 1955 Unknown [id number] 2.16. [id number] 1956 Unknown [id number] 2.16. [id number] 1955 Unknown [id number] 2.16. [id number] 1955 Unknown [id number] 2.16. [id number] Blue [employer] Blue Shield [id number] Self-pay Self Pay [id number] Unknown [id number] 2.16.84 [id number] Unknown [id number] 2.16.84 [id number] Social History Date Type Detail Facility Start: 10-06-2021 End: 07-27-2023 Tobacco smoking status Never smoked tobacco (finding) [facility] Sex Assigned At Male [facility] Tobacco smoking status Never [facility] Start: 1955 Sex Assigned At Male [facility] Medical Equipment Procedure Code Equipment Code [...] 11-09-2022 Functional Status N/A [facility] Clinical Notes 10-06-2021 to 08-21-2024 Note Date & Type Note Facility 08-21-2024 Note Procedure: Vertiflex Superion Placement at L4-5 PREOPERATIVE and POSTOPERATIVE DIAGNOSES: M48.062 Spinal stenosis, lumbar region with neurogenic claudication Anesthesia: MAC anesthesia is medically necessary for the procedure due to the procedure requiring the patient to remain in a painful position. ANTIBIOTICS: Ancef 2grams intravenously 30 minutes prior to the procedure as a prophylaxis. PROCEDURE PERFORMED: Description of Procedure- Indirect Lumbar Decompression: Vertiflex Superion Placement at L4. After risks and benefits were explained to the patient, an informed consent was obtained. A peripheral IV was started and antibiotics administered prior to the start of the procedure for infection prophylaxis. The patient was brought back to the operative suite and placed in the prone position on the procedure table. The patients thoracic, lumbar and sacral regions were prepped and draped in a surgical sterile fashion using Chloraprep, followed by a full laparotomy drape. A fluoroscopic C-Arm was brought into AP orientation. The interspace between L4 and L5 was identified. The skin was anesthetized first with 1% lidocaine with epinephrine combined with 0.25% bupivacaine. A scalpel was used to make a stab incision down to the supraspinous ligament. A Vertiflex dilator was placed into the skin and advanced using intermittent fluoroscopic guidance in an alternating AP and lateral images down to the lamina between L4 and L5. A series of dilators were used to place the working cannula in proper position, dorsal to the lamina. A measuring gauge was introduced to the proper depth and the space was measured. The space measured and found to be 10mm. A 10mm Superion device was introduced and deployed at the correct depth and then advanced down to the lamina. AP and lateral images were taken to confirm proper placement of the device. This document serves as a record of the services and decisions personally performed and made by the attending provider. It was created on his/her behalf by a trained remote medical coder. The creation of this document is based on the provider?s statements to the remote medical coder. Electronically signed by Dm Cyr MD 08/21/24 11:25 EST Electronically signed by Cyn Osorio 08/21/2024 11:18 EST [facility] 08-21-2024 Note History of Present I llness HISTORY OF PRESENT ILLNESS The patient has a longstanding history of severe chronic pain that has been recalcitrant to conservative treatments and presents today for an interventional pain management procedure. REVIEW OF SYSTEMS Review of respiratory, gastrointestinal, skin & integumentary, psychiatric, cardiovascular, genitourinary, musculoskeletal and neurological systems was conducted. The review was found to be noncontributory and unchanged from previous clinic visit. PHYSICAL EXAM - Limited Patient is Constitutionally normal and displays a normal mood and affect per situation. Alert and Oriented x 4, Attentive and appropriate, Answers questions appropriately Vital Signs are Stable Heart ? Normal Rate and Rhythm consistent with the patient?s history Lungs ? No significant wheezing, Clear Bilaterally ASSESSMENT / PLAN Diagnosis ? Severe Chronic Pain Risks/Benefits/Expected Outcomes of the planned procedure were discussed with the patient and the patient is in agreement that the potential benefits outweigh the risks of the procedure. The patient does appear to be in acceptable health today to undergo the procedure. It is felt that the patient will likely benefit from the procedure and that the procedure is medically necessary noting the patient?s poor response to more conservative therapies. For these reasons we will proceed as planned with the pain management procedure. Procedure ? Pain Management Injection Physical Exam Vitals & Measurements T: 36.4 ?C (Temporal Artery) HR: 100 (Peripheral) RR: 16 BP: 140/95 SpO2: 97% HT: 195 cm WT: 115 kg (Dosing) Additional Vitals No qualifying data available. Assessment/Plan Spinal stenosis of lumbar region with neurogenic claudication (M48.062) This document serves as a record of the services and decisions personally performed and made by the attending provider. It was created on his/her behalf by a trained remote medical coder. The creation of this document is based on the provider?s statements to the remote medical coder. Problem List/Past Medical History Ongoing Acid reflux Diabetes Hypertension Historical No qualifying data Procedure/Surgical History History of hernia repair Medications Inpatient ceFAZolin, 2 g= 50 mL, IV Piggyback, Once Sodium Chloride 0.9% intravenous solution 500 mL, 500 mL, IV Home allopurinol, 100 mg, Oral, Daily amLODIPine, 5 mg, Oral, Daily atorvastatin, 10 mg, Oral, Daily benazepril, 20 mg, Oral, Daily cetirizine, 10 mg, Oral, Daily, PRN finasteride, 5 mg, Oral, Daily glimepiride, 4 mg, Oral, Daily Lantus Solostar Pen, 25 units, Subcutaneous, Daily latanoprost 0.005% ophthalmic emulsion, 1 drops, Eye-Both, qPM metFORMIN, 1000 mg, Oral, BID omeprazole, 10 mg, Oral, Daily tamsulosin, 0.4 mg, Oral, Daily Trulicity Pen, 0.75 mg, Subcutaneous, Weekly, ON SATURDAYS Allergies No Known Medication Allergies Social History Alcohol Current, 1-2 times per month Tobacco Never (less than 100 in lifetime) Use:. Lab Results Test Name Test Result Date/Time POC Gluc Random 147 mg/dL (High) 08/21/2024 09:03 EST Microbiology - Current Encounter No qualifying data available. Electronically signed by Dm Cyr MD 08/21/24 09:34 EST Electronically signed by DevonCyn clark Pauline 08/21/2024 09:29 [facility] 07-29-2023 Evaluation note Encounter Date Diagnosis Assessment Notes Jul, Type 2 diabetes mellitus with hyperglycemia , without long-term current use of insulin (ICD-10 - E11.65) [facility] Other 01-22-2024 Evaluation note* Encounter Date Diagnosis [...] index [BMI] 32.0-32.9, adult (ICD-10 - Z68.32) [facility] Other 11-24-2023 Evaluation note* Encounter Date Diagnosis [...] Microalbumin, Dilated eye exam and Foot exam [facility] Other 11-15-2023 Evaluation note* Encounter Date Diagnosis [...] flares Sep, Thrombocytopenia, unspecified (ICD-10 - D69.6) [facility] Other 11-15-2023 Evaluation note* Encounter Date Diagnosis [...] flares Sep, Thrombocytopenia, unspecified (ICD-10 - D69.6) [facility] Other 11-08-2023 Evaluation note* Encounter Date Diagnosis Assessment Notes Treatment Notes Treatment Clinical Notes Apr, Screening PSA (prostate specific antigen) (ICD-10 - Z12.5) Apr, Type 2 diabetes mellitus with hyperglycemia, without long-term current use of insulin (ICD-10 - E11.65) Apr, Elevated cholesterol (ICD-10 - E78.00) Apr, Primary hypertension (ICD-10 - I10) Sep, Thrombocytopenia, unspecified (ICD-10 - D69.6) Thrombocytopenia [facility] 07-12-2023 Evaluation note* Encounter Date Diagnosis [...] [BMI] 31.0-31.9, adult (ICD-10 - Z68.31) Dec, [facility] (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 (ICD-10 - Z79.4) [facility] Other 05-26-2023 Hospital Discharge instructions Patient Education [...] treatment? Where to find more information [employer]: www.cancer.org [employer]: www.auanet.org Contact a health care [...] provider. Document Revised: 11/27/2021 Document Reviewed: 11/27/2021 [employer] Patient Education 2022 [employer]. Follow Up Care 10/06/2021 08:40:21 With:JOSE MCMANUS, Hola Rushing, URL Address: [facility] [address] , [place] [address]- When: Unknown [facility] 05-08-2023 Evaluation note* Encounter Date Diagnosis Assessment Notes Treatment Notes Treatment Clinical Notes October, Primary hypertension (ICD-10 - I10) [facility] Other 05-04-2023 Evaluation note* Encounter Date Diagnosis Assessment Notes Treatment Notes Treatment Clinical Notes October, Primary hypertension (ICD-10 - I10) [facility] 04-21-2023 Evaluation note* Encounter Date Diagnosis [...] and Glimepiride appear to be controlling BS. [facility] Other 04-13-2023 Evaluation note* Encounter Date Diagnosis Assessment Notes Treatment Notes Treatment Clinical Notes Sep, Type 2 diabetes mellitus with hyperglycemia (ICD-10 - E11.65) Sep, [facility] (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 (ICD-10 - Z79.4) [facility] Other 04-11-2023 Evaluation note* Encounter Date Diagnosis Assessment Notes Treatment Notes Treatment Clinical Notes Sep, Type 2 diabetes mellitus with hyperglycemia, without long-term current use of insulin (ICD-10 - E11.65) [facility] Other 04-07-2023 Evaluation note* Encounter Date Diagnosis Assessment Notes Treatment Notes Treatment Clinical Notes Sep, Type 2 diabetes mellitus with hyperglycemia (ICD-10 - E11.65) [facility] Other 03-09-2023 Evaluation note* Encounter Date Diagnosis [...] Reviewed red flag symptoms and nerve impingement [facility] Other 02-28-2023 Evaluation note* Encounter Date Diagnosis Assessment Notes Treatment Notes Treatment Clinical Notes Jul, Type 2 diabetes mellitus with hyperglycemia, without long-term current use of insulin (ICD-10 - E11.65) [facility] Other 04-22-2022 Hospital Discharge instructions Patient Education [...] urethra. Follow these instructions at home: Take cnjf-teb-rpxjkcj and prescription medicines only as told by [...] 06/03/2006 Document Revised: 04/28/2019 Document Reviewed: 07/08/2017 [employer] Patient Education [employer]. Follow Up Care 10/03/2020 15:00:49 With:Hola GARCIA MD, URL Address: [facility] [address], [place] [address] [phone] When:10/06/2022 [facility] evaluation + Plan note Future Appointments Appointment Date:10/12/2022 08:00:00 AM Scheduled Provider:Hola GARCIA MD Location:[facility] Appointment Type:URO Office Visit Diagnostic Tests Pending * PSA Total 10/06/21 [facility] evaluation + Plan note Future Appointments Appointment Date:11/18/2023 08:45:00 AM Scheduled Provider:Hola GARCIA MD Location:[facility] Appointment Type:URO Office Visit Diagnostic Tests Pending * PSA Free & Total 11/09/22 [facility] evaluation noteNort [facility] Other [facility] Other Evaluation note* Diagnosis Onset Date Resolution Status Elevated cholesterol acute Gastroesophageal reflux dise ase with esophagitis without hemorrhage acute Obesity acute Primary hypertension acute Spondylosis without myelopat hy or radiculopathy, lumbar region acute Type 2 diabetes mellitus with hyperglycemia acute [facility] Work Phone: Evaluation note* Diagnosis Onset Date Resolution Status Elevated cholesterol acute Gastroesophageal reflux dise ase with esophagitis without hemorrhage acute Primary hypertension acute Spondylosis without myelopat hy or radiculopathy, lumbar region acute Type 2 diabetes mellitus with hyperglycemia acute [facility] Work Phone: History general Narrative - [...] CYSTOSCOPY 2016 Hospitalization History SEE SURGICAL HX [facility] Other History general Narrative - [facility] Other History general Narrative - Reported* Type [...] CYSTOSCOPY 2016 Hospitalization History SEE SURGICAL HX [facility] Other Hospital course Narrative No data available for this section [facility] [employer] progress note No data available for this section [facility] [employer] Summary Purpose Family History No Family History [...] well ness visit, initial (Z00.00) Referral Organization [facility] Referring Provider First Name Bogdan Referring Provider Last Name Peter Referring Provider Specialty Internal Me dicine Referred Organization [facility] Referred Provider Swapnil French Referred Address [address] [place], [place],[address] Referred Provider Specialty Pain Medicin e Referral [...] Notes Include XR lumbar sp ine f: [id number] Chief Complaint and Reason for Visit Chief [...] section and content) DATE CREATED AUTHOR 07/30/2021 [facility] DATE CREATED AUTHOR AUTHOR'S ORGANIZ ATION 08/22/2022 [facility] DATE CREATED AUTHOR AUTHOR'S ORGANIZ ATION 11/14/2023 Kobi Gonzalez [facility] DATE CREATED AUTHOR AUTHOR'S ORGANIZ ATION 08/25/2024 [facility] REASON FOR VISIT (unrecogniz ed section and content) BS readingsElevated blood cifuentes [id number] PositiveWellnesslabsLab ResultsBP readingsrefillelevated BPMedication4 MONTH FOLLOW UP Patient Care team informatio n (unrecognized section and content) Team Status: Active Member Role Status Dates Bogdan Green , DO Primary Care Provider Active Team Status: [...] Dates Bogdan Green , DO Primary Care Provider Active Start: August [...] BE BASED ON THE PRIMARY CLINICAL RECORDS. [facility]. provides no warranty or guarantee of the accuracy or completeness of information in this document.
--- NOTE | 2024-08-27 13:06 | P.CN_ITS ---
Consult Note: HPI Data of Consult Patient: known to practice within the last 3 years Requesting Physician: Radha Cope NP Primary Care Provider: Bogdan Green DO Consult Narrative Reason for consult: f/u Narrative: Esdras Correa a pleasant 68 year old male presents for evaluation. Recently underwent L4-5 vertiflex placement 08-21-[address] Cyr at [facility]. Pt reporting pain 0-1/10 at incision sight, soreness. pt reports he missed a few doses of his post op antibiotic, will complete tomorrow AM. Is without fever, chills, body aches. Pt is noticing improvement in pain below bilateral knees and improvement with ambulation. He has not resumed normal activities at this time as instructed. He is eager to start walking more around his neighborhood. cc:: CC: Radha Cope NP Review of Systems ROS Status of ROS 10 or more systems reviewed and unremark able except as noted in history and below Musculoskeletal Reports: back pain PFSH PFSH Medical History History of stress test ?Z92.89 - Personal history of other medical treatment (ICD-10) Acid reflux ?K21.9 - Gastro-esophageal reflux disease without esophagitis (ICD-10) Diabetes ?E11.9 - Type 2 diabetes mellitus without complications (ICD-10) HTN (hypertension) ?I10 - Essential (primary) hypertension (ICD-10) Surgical History History of hernia repair ?Z98.890 - Other specified postprocedural states (ICD-10) ?Z87.19 - Personal history of other diseases of the digestive system (ICD-10) Meds Home Medications and Allergies Home Medications ?Medication ?Instructions ?Recorded ?Confirmed ?Type allopurinol 100 mg tablet 100 mg PO DAILY 06/14/23 05/04/24 History amlodipine 5 mg tablet 5 mg PO DAILY 06/14/23 05/04/24 History atorvastatin 10 mg tablet 10 mg PO DAILY 06/14/23 05/04/24 History benazepril 5 mg tablet 20 mg PO DAILY 06/14/23 05/04/24 History finasteride 5 mg tablet 5 mg PO DAILY 06/14/23 05/04/24 History glimepiride 4 mg tablet 4 mg PO DAILY 06/14/23 05/04/24 History insulin glargine 100 unit/mL (3 25 unit subcut DAILY 06/14/23 05/04/24 History mL) subcutaneous pen (Lantus Solostar U-100 Insulin) latanoprost 0.005 % eye drops 1 drp ophthalmic (eye) DAILY 06/14/23 05/04/24 History metformin 1,000 mg tablet 1,000 mg PO BID 06/14/23 05/04/24 History tamsulosin 0.4 mg capsule 0.4 mg PO Q24H 06/14/23 05/04/24 History cetirizine 10 mg capsule (All Day 10 mg PO DAILY PRN allergy symptoms 06/24/23 05/04/24 History Allergy (cetirizine)) omeprazole 10 mg capsule,delayed 10 mg PO DAILY 06/24/23 05/04/24 History release dulaglutide 0.75 mg/0.5 mL 0.75 mg subcut QWEEK 08/07/23 05/04/24 History subcutaneous pen injector (Trulicity) Allergies Allergy/AdvReac Type Severity Reaction Status Date / Time No Known Drug Allergies Allergy Verified 05/04/24 10:11 Exam Constitutional Documenting provider has reviewed patient's vital signs: yes Common normals: no apparent distress, oriented x3, healthy appearing, alert and well nourished General appearance: cooperative HENMT Common normals: normocephalic, hearing grossly normal bilaterally and moist oral mucous membranes Head and scalp: normocephalic Eye Common normals: PERRL Pupil: PERRL Neck & C-Spine Common normals: full ROM General: normal visual inspection Chest Common normals: inspection of chest normal Respiratory Common normals: normal respiratory effort, no retractions and no use of accessory muscles Back & Pelvis Lumbar spine/lower back: lumbar spinal tenderness and other soft tissue f indings; no paraspinal muscle tenderness and no paraspinal muscle spasm Other: incision noted, sutures and dressing clean dry and intact. minimal dried blood noted. steri strips intact. no redness warmth or edema Neuro Common normals: oriented x3, CN's II-XII intact bilaterally, moves all extremities, no focal motor deficits, no sensory deficits noted and deep tendon reflexes 2+ bilaterally Sensorium/orientation: alert Motor exam: strength 5/5 throughout and no movement abnormalities noted Psych Common normals: mental status grossly normal, thought process normal, cooperative, affect normal, speech normal and activity/motor behavior normal Speech: normal speech Thought process: normal thought process Results Additional Findings Additional findings: If on a controlled substance or opioids, I have checked an [place]ARRS report on this patient and there are no aberrancies noted in the prescribing history.??If on a controlled substance or opioid a drug screen was completed and reviewed within the last year, and if there has not been a drug screen completed we ordered one today to monitor higher risk, state monitored pain medication use. As part of providing excellent, safe, comprehensive care, the following was completed at our patient's visit: 1. A medication reconciliation and review to ensure accurate knowledge of current/active medications, including asking our patients to inform us about any hfji-gld-iequifw medications or herbal remedies/nutritional supplements/alternative remedies. 2. A review to specifically ensure our patients have had annual screening for screening for depression, screening for tobacco use, and screening for unhealthy alcohol use. For concerning screenings had a discussion with the patient, provided patient education, and recommended follow-up with primary care provider when appropriate. If patient noted with a risk of falling, they received education on strength, gait, and balance training to prevent future risk of falling. Portions of this note may have been carried over from the previous visit and updated as appropriate. Please note this office utilizes paper charting in addition to the electronic medical record. A list of current medications, vitals, and PMH is available there as the clinical staff outside of myself do not have access to [employer] charting during the clinic day operations. As part of providing quality comprehensive care the current medications, vitals, and PMH were reviewed in the paper chart. Assessment and Plan Assessment and Plan (1) Lumbar stenosis with neurogenic claudication: Plan pt status post L4-5 vertiflex, completed by Dr Cyr on 08-21-24, bandage removed and site inspected. sutures clean dry and intact, steri strips intact. instructed pt to complete post op antibiotics as ordered. denies s/s of infection, encouraged to monitor. Pt to continue to follow 10lb lifting restriction, encouraged pt to utilize proper body mechanics. Pt instructed to avoid soaking the incision in water, can shower and pat dry. pt was cleared to resume long periods of walking at this time. pt instructed to avoid strenuous activity, continue 10lb weight lifting limit, and avoid any high impact activities such as running and golfing. f/u 1 month to assess lumbar stenosis with NC. sooner if needed as discussed.
== END 2024-08-27 12:39 | disposition home or self-care (01) ==
LOC: PM 12:38
PROVIDERS: PCP Internal Medicine; Visit Provider Nurse Practitioner
DX: M48.062 Spinal stenosis, lumbar region with neurogenic claudication (principal)
CPT/HCPCS: G0463

== ENCOUNTER 2024-09-30 10:32 | Outpatient (OUT) | payer MEDICARE, BC, SELFPAY ==
--- OUTSIDE RECORDS SUMMARY | 2024-09-30 10:53 | XMS_ITS | CCD ---
Author Organization [facility] Care Team Providers Care Pc Support Specialist Name Role Phone BOGDAN GREEN Primary [...] physicia Propensity to adverse reactions 6 Comment:Done [place] Other (2 sources) No Known Medication Allergies; Translations: [No Known Medication Allergies] Propensity to adverse reactions (disorder) [facility] Repository Medications Current Medications Medication [...] day(s), # 90 tab(s), Refills(s) 3, Pharmacy: [facility]/pharmacy #[id number], 195, cm, 11/09/22 11:00:00 EDT, Height/Length Dosing, 111, kg, 11/09/22 11:00:00 EDT, Weight Dosing Start Date: 11/09/22 Stop Date: 11/04/23 Status: Ordered Start: 10-06-2021 take 1 tablet by osbaldo once daily finasteride 5 mg Tab 5 mg = 1 tab(s), Oral, Daily, # 90 tab(s), Refills(s) 3, Pharmacy: [facility]/pharmacy #[id number], 195, cm, 10/06/21 8:16:00 [...] a day; Note: Source Status: Continue; Provider: Pteer Hagan Start: 11-09-2022 glimepiride 4 mg Tab [...] bid for 5 days Apr, Active [place] 5/16 (15 sources) Start: 09-27-2022 Start: 09-27-2022 [place] 5/ 16 Use to inject insulin qd [...] acid 4700 mg / polyethylene glycol 3350 875330 mg / potassium chloride 1015 mg / [...] Other mcfp (current) drug therapy; Translations: [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] Onset: 07-03-2022 Episodic Other aftercare (1 source) 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; Translations: [WASTE EXAMINER USE ORAL HYPOGLYCEMIC DX] Onset: 07-03-2022 Episodic Other aftercare (15 sources) Long-term current use of insulin; Translations: [snf (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] Episodic Other aftercare (2 sources) snf (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 Episodic Other aftercare (2 sources) Long-term current use of drug therapy; 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] Episodic Other [...] 025 Glucose [Mass/Vol] 147 mg/dL High 70-99 [facility] Comment on above: Performed By: #### C [id number] #### [address] [address] Glucose mean value [Mass/vol ume] in Blood Estimated from glycated hemoglobinon 02-11-2024 Average glucose Estimated from glycated hemoglobin (Bld) [Mass/Vol] 169 mg/dL [facility] - Hematology and Cell countson 02-11-2024 HbA1c (Bld) [Mass fraction] 7.5 % High 4.5-6.[address] [facility] Comment on above: ADA RECOMMENDED LIMI T 4.0 - 6.0ADA THERAPEUTIC TARGET < 7.0ACTION SUGGESTED> 7.0 Glucose mean value [Mass/vol ume] in Blood Estimated from glycated hemoglobinon 10-12-2023 Average glucose Estimated from glycated hemoglobin (Bld) [Mass/Vol] 180 mg/dL [facility] - Hematology and Cell countson 10-12-2023 HbA1c (Bld) [Mass fraction] 7.9 % 4.5-6.[address] [facility] Comment on above: ADA RECOMMENDED LIMI T 4.0 - 6.0ADA THERAPEUTIC TARGET < 7.0ACTION SUGGESTED> 7.0 GLYCOHEMOGLOBIN A1Con 2022 ADA RECOMMENDATION SEE BELOW Normal [facility] Comment on above: Result Comment: ADA RECOMMENDED LIMIT 4.0 - 6.0 ADA THERAPEUTIC TARGET < 7.0 ACTION SUGGESTED > 7.0 Performed By: #### B MP, LIPID, ALT, URIC #### [facility] [address] [place] [address] Dr. Jorge L Carey Glucose [Mass/Vol] 148 mg/dL Normal [facility] Comment on above: Performed By: #### B MP, LIPID, ALT, URIC #### [facility] [address] [address] [address] Jorge L Carey HbA1c (Bld) [Mass fraction] 6.8 % Critically high 4.5-6.2 [facility] Comment on above: Performed By: #### B MP, LIPID, ALT, URIC #### [facility] [address] [address] [address] Jorge L Carey CARDIAC DANAY ADMITon 023 CK [Catalytic activity/Vol] 59 U/L Normal 39-308 [facility] Comment on above: Performed By: #### C MP, CMADM #### [facility] [address] [place] [address] Dr. Jorge L Carey CK.MB [Mass/Vol] 0.99 ng/mL Normal <=3.60 [facility] Comment on above: Performed By: #### C MP, CMADM #### [facility] [address] [address] [address] Jorge L Carey HSTROP 10.0 pg/mL Normal 4.0-76.1 [facility] Comment on above: Result Comment: CUT- OFF POINTS HAVE BEEN ESTABLISHED BASED ON THE FOURTH UNIVERSAL DEFINITIONS OF MYOCARDIAL INFARCTION. THE UPPER REFERENCE LIMIT (URL) OF TROPONIN, DEFINED THE 99TH PERCENTILE OF cTnI DISTRIBUTION IN A REFERENCE POPULATION, HAS BEEN CONFIRMED THE DECISION THRESHOLD FOR SC DIAGNOSIS. Performed By: #### C IGGY, CMADM #### [facility] [address] [place] [address] Dr. Jorge L Carey GARLAND 52 ng/mL Normal 16-96 [facility] Comment on above: Performed By: #### C IGGY, CMADM #### [facility] [address] [place] [address] Dr. Jorge L Carey CBC AUTO DIFFon 07-01-2022 BASO # 0.0 103/ul Normal 0.0-0.1 [facility] Comment on above: Performed By: #### B MP, LIPID, ALT, URIC #### [facility] [address] [place] [address] Dr. Jorge L Carey Basophils/100 WBC (Bld) 0.3 % Normal 0.2-2.0 [facility] Comment on above: Performed By: #### B MP, LIPID, ALT, URIC #### [facility] [address] [place] [address] Dr. Jorge L Carey EO # 0.1 103/ul Normal 0.0-0.7 [facility] Comment on above: Performed By: #### B MP, LIPID, ALT, URIC #### [facility] [address] [place] [address] Dr. Jorge L Carey Eosinophils/100 WBC (Bld) 0.9 % Normal 0.9-7.0 [facility] Comment on above: Performed By: #### B MP, LIPID, ALT, URIC #### [facility] [address] [place] [address] Dr. Jorge L Carey Erythrocyte distribution width (RBC) [Ratio] 11.7 % Normal 11.0-15.0 [facility] Comment on above: Performed By: #### B MP, LIPID, ALT, URIC #### [facility] [address] [place] [address] Dr. Jorge L Carey Hematocrit (Bld) [Volume fraction] 41.1 % Critically low 42.0-54.0 [facility] Comment on above: Performed By: #### B MP, LIPID, ALT, URIC #### [facility] [address] [place] [address] Dr. Jorge L Carey Hemoglobin (Bld) [Mass/Vol] 14.5 g/dL Normal 14.0-18.0 [facility] Comment on above: Performed By: #### B MP, LIPID, ALT, URIC #### [facility] [address] [place] [address] Dr. Jorge L Carey IG # 0.02 10e3/ul Normal 0.00-0.03 [facility] Comment on above: Performed By: #### B MP, LIPID, ALT, URIC #### [facility] [address] [place] [address] Dr. Jorge L Carey IG % 0.3 % Normal 0.0-0.5 [facility] Comment on above: Performed By: #### B MP, LIPID, ALT, URIC #### [facility] [address] [place] [address] Dr. Jorge L Carey LYMPH # 1.1 103/ul Critically low 1.2-3.8 [facility] Comment on above: Performed By: #### B MP, LIPID, ALT, URIC #### [facility] [address] [place] [address] Dr. Jorge L Carey Lymphocytes/100 WBC (Bld) 16.6 % Critically low 20.5-60.0 [facility] Comment on above: Performed By: #### B MP, LIPID, ALT, URIC #### [facility] [address] [place] [address] Dr. Jorge L Carey MANUAL DIFF REQ NO Normal [facility] Comment on above: Performed By: #### B MP, LIPID, ALT, URIC #### [facility] [address] [place] [address] Dr. Jorge L Carey MCH (RBC) [Entitic mass] 30.1 pg Normal 25.9-34.0 [facility] Comment on above: Performed By: #### B MP, LIPID, ALT, URIC #### [facility] [address] [place] [address] Dr. Jorge L Carey MCHC (RBC) [Mass/Vol] 35.3 g/dL Critically high 29.9-35.2 [facility] Comment on above: Performed By: #### B MP, LIPID, ALT, URIC #### [facility] [address] [place] [address] Dr. Jorge L Carey MCV (RBC) [Entitic vol] 85.4 fL Normal 80.0-94.0 [facility] Comment on above: Performed By: #### B MP, LIPID, ALT, URIC #### [facility] [address] [place] [address] Dr. Jorge L Carey MONO # 0.4 103/ul Normal 0.3-0.8 [facility] Comment on above: Performed By: #### B MP, LIPID, ALT, URIC #### [facility] [address] [place] [address] Dr. Jorge L Carey Monocytes/100 WBC (Bld) 5.1 % Normal 1.7-12.0 [facility] Comment on above: Performed By: #### B MP, LIPID, ALT, URIC #### [facility] [address] [place] [address] Dr. Jorge L Carey NEUT # 5.3 103/ul Normal 1.4-6.5 [facility] Comment on above: Performed By: #### B MP, LIPID, ALT, URIC #### [facility] [address] [place] [address] Dr. Jorge L Carey Neutrophils/100 WBC (Bld) 76.8 % Critically high 43.0-75.0 [facility] Comment on above: Performed By: #### B MP, LIPID, ALT, URIC #### [facility] [address] [place] [address] Dr. Jorge L Carey Platelet mean volume (Bld) [Entitic vol] 12.1 fL Normal 9.5-13.5 [facility] Comment on above: Performed By: #### B MP, LIPID, ALT, URIC #### [facility] [address] [place], [place] [address] Dr. Jorge L Carey PLT 147 103/ul Critically low 150-450 [facility] Comment on above: Performed By: #### B MP, LIPID, ALT, URIC #### [facility] [address] [place], [place] [address] Dr. Jorge L Carey RBC 4.81 106/ul Normal 4.70-6.10 [facility] Comment on above: Performed By: #### B MP, LIPID, ALT, URIC #### [facility] [address] [place], [place] [address] Dr. Jorge L Carey WBC 6.9 103/ul Normal 4.0-11.0 [facility] Comment on above: Performed By: #### B MP, LIPID, ALT, URIC #### [facility] [address] [address] [address] Jorge L [address] HEAD WO [...] by: MALENA LÓPEZ Date: 2022-07-01 20:24 Normal [facility] Covid-19 PCR (CVDTBH)on 06-17 SARS-CoV-2 (COVID-19) RNA EDVIN+probe Ql (Unsp spec) Not detected Normal NOT DETECTED [facility] Comment [...] for this test is supported by the Industrial Engineering Director of Health and Human Service's declaration that [...] By: #### C VDTBH #### [facility] [address] [place] [address] Dr. Jorge L Carey D-DIMERon 07-01-2022 D-DIMER 0.21 mg/L FEU Normal <=0.[address] [facility] Comment on above: Performed By: #### B MP, LIPID, ALT, URIC #### [facility] [address] [place] [address] Dr. Jorge L Carey D-DIMER COMMENTS SEE BELOW Normal [facility] Comment on above: Result [...] MP, LIPID, ALT, URIC #### [facility] [address] [place] [address] Dr. Jorge L Carey ER URINE PROFILEon 3 Bilirubin Ql (U) Negative Normal NEGATIVE [facility] Comment on above: Performed By: #### B MP, LIPID, ALT, URIC #### [facility] [address] [place] [address] Dr. Jorge L Carey Clarity (U) CLEAR Normal CLEAR [facility] Comment on above: Performed By: #### B MP, LIPID, ALT, URIC #### [facility] [address] [address] [address] Jorge L Carey Color (U) LT. YELLOW Normal YELLOW [facility] Comment on above: Performed By: #### B MP, LIPID, ALT, URIC #### [facility] [address] [place] [address] Dr. Jorge L HERNANDEZ A micrscopic examination will be performed if indicated. Normal [facility] Comment on above: Performed By: #### B MP, LIPID, ALT, URIC #### [facility] [address] [place] [address] Dr. Jorge L Carey Glucose Ql (U) Negative Normal NEGATIVE [facility] Comment on above: Performed By: #### B MP, LIPID, ALT, URIC #### [facility] [address] [place] [address] Dr. Jorge L Carey Hemoglobin Ql (U) Negative Normal NEGATIVE [facility] Comment on above: Performed By: #### B MP, LIPID, ALT, URIC #### [facility] [address] [place] [address] Dr. Jorge L Carey Ketones Ql (U) Negative Normal NEGATIVE [facility] Comment on above: Performed By: #### B MP, LIPID, ALT, URIC #### [facility] [address] [place] [address] Dr. Jorge L Carey LEUKOCYTES Negative Normal NEGATIVE [facility] Comment on above: Performed By: #### B MP, LIPID, ALT, URIC #### [facility] [address] [place] [address] Dr. Jorge L Carey Nitrite Ql (U) Negative Normal NEGATIVE [facility] Comment on above: Performed By: #### B MP, LIPID, ALT, URIC #### [facility] [address] [address] [address] Jorge L Carey pH (U) 6.0 [pH] Normal 5-9 [facility] Comment on above: Performed By: #### B MP, LIPID, ALT, URIC #### [facility] [address] [address] [address] Jorge L Carey SPEC GRAVITY 1.020 Normal 1.005-<=1.025 [facility] Comment on above: Performed By: #### B MP, LIPID, ALT, URIC #### [facility] [address] [address] [address] Jorge L Carey UA PROTEIN Negative Normal NEGATIVE/ TRACE [facility] Comment on above: Performed By: #### B MP, LIPID, ALT, URIC #### [facility] [address] [place] [address] Dr. Jorge L Carey UR MICRO IND NOT INDICATED Normal [facility] Comment on above: Performed By: #### B MP, LIPID, ALT, URIC #### [facility] [address] [place] [address] Dr. Jorge L Carey Urobilinogen Qn (U) 1.0 {Ila'U}/dL Normal 0.2 - 1. 0 [facility] Comment on above: Performed By: #### B MP, LIPID, ALT, URIC #### [facility] [address] [place] [address] Dr. Jorge L Carey INFLUENZA A AND B AGon 07-01 [facility] Normal [facility] Comment on above: Result Comment: Nega tive for Flu A protein angiten. Infection due to Flu A cannot be ruled out. Flu A angiten in the sample may be below the detection limit of the test. Performed By: #### I NFLUAB #### [facility] [address] [place] [address] Dr. Jorge L Carey INFLUBNEG SEE BELOW Normal [facility] Comment on above: Result Comment: Nega tive for Flu B protein antigen. Infection due to Flu B cannot be ruled out. Flu B antigen in the sample may be below the detection limit of the test. Performed By: #### I NFLUAB #### [facility] [address] [place] [address] Dr. Jorge L Carey INFLUENZA A AG Negative Normal NEGATIVE SEE COMMENT [facility] Comment on above: Performed By: #### I NFLUAB #### [facility] [address] [place] [address] Dr. Jorge L Carey INFLUENZA B AG Negative Normal NEGATIVE SEE COMMENT [facility] Comment on above: Performed By: #### I NFLUAB #### [facility] [address] [place] [address] Dr. Jorge L Carey POINT OF CARE GLUCOSEon 06-17 Glucose [Mass/Vol] 130 mg/dL Critically high 74-106 [facility] Comment on above: Performed By: #### B MP, LIPID, ALT, URIC #### [facility] [address] [place] [address] Dr. Jorge L Carey PROF 14(COMP METB)on 023 Albumin [Mass/Vol] 3.7 g/dL Normal 3.4-5.0 [facility] Comment on above: Performed By: #### C CEE PARKINSON #### [facility] [address] [place] [address] Dr. Jorge L Carey Albumin/Globulin [Mass ratio] 1.2 {ratio} Normal [facility] Comment on above: Performed By: #### C CEE PARKINSON #### [facility] [address] [place] [address] Dr. Jorge L Carey ALP [Catalytic activity/Vol] 49 U/L Normal 46-116 [facility] Comment on above: Performed By: #### C CEE PARKINSON #### [facility] [address] [place] [address] Dr. Jorge L Carey ALT [Catalytic activity/Vol] 30 U/L Normal 16-63 [facility] Comment on above: Performed By: #### C CEE PARKINSON #### [facility] [address] [place] [address] Dr. Jorge L Carey Anion gap [Moles/Vol] 12.7 mmol/L Normal [facility] Comment on above: Performed By: #### C IGGY, CMADM #### [facility] [address] [place] [address] Dr. Jorge L Carey AST [Catalytic activity/Vol] 21 U/L Normal 15-37 [facility] Comment on above: Performed By: #### C IGGY, CMADM #### [facility] [address] [place] [address] Dr. Jorge L Carey Bilirubin [Mass/Vol] 0.5 mg/dL Normal 0.2-1.0 [facility] Comment on above: Performed By: #### C IGGY, CMADM #### [facility] [address] [place] [address] Dr. Jorge L Carey Calcium [Mass/Vol] 8.9 mg/dL Normal 8.5-10.1 [facility] Comment on above: Performed By: #### C IGGY, CMADM #### [facility] [address] [place] [address] Dr. Jorge L Carey Chloride [Moles/Vol] 100 mmol/L Normal 98-107 [facility] Comment on above: Performed By: #### C IGGY, RAMYDM #### [facility] [address] [place] [address] Dr. Jorge L Carey CO2 [Moles/Vol] 29.0 mmol/L Normal 21.0-32.0 [facility] Comment on above: Performed By: #### C IGGY, CMADM #### [facility] [address] [place] [address] Dr. Jorge L Carey Creatinine [Mass/Vol] 1.04 mg/dL Normal 0.70-1.30 [facility] Comment on above: Performed By: #### C IGGY, CMADM #### [facility] [address] [place] [address] Dr. Jorge L Carey EGFR-AF SOUTH AFRICAN >60 Normal >=60 [facility] Comment on above: Performed By: #### C IGGY, RAMYDM #### [facility] [address] [place] [address] Dr. Jorge L Carey EGFR-NON AF SOUTH AFRICAN >60 Normal >=60 [facility] Comment on above: Performed By: #### C IGGY, CMADM #### [facility] [address] [address] [address] Jorge L Carey Globulin (S) [Mass/Vol] 3.1 g/dL Normal [facility] Comment on above: Performed By: #### C IGGY, CMADM #### [facility] [address] [address] [address] Jorge L Carey Glucose [Mass/Vol] 140 mg/dL Critically high 74-106 [facility] Comment on above: Performed By: #### C IGGY, RAMYDM #### [facility] [address] [place] [address] Dr. Jorge L Carey Potassium [Moles/Vol] 3.7 mmol/L Normal 3.5-5.1 [facility] Comment on above: Performed By: #### C RAMY PARKINSONDM #### [facility] [address] [place] [address] Dr. Jorge L Carey Protein [Mass/Vol] 6.8 g/dL Normal 6.4-8.2 [facility] Comment on above: Performed By: #### C RAMY PARKINSONDM #### [facility] [address] [place] [address] Dr. Jorge L Carey Sodium [Moles/Vol] 138 mmol/L Normal 136-145 [facility] Comment on above: Performed By: #### C IGGY, RAMYDM #### [facility] [address] [place] [address] Dr. Jorge L Carey Urea nitrogen [Mass/Vol] 13.0 mg/dL Normal 7.0-18.0 [facility] Comment on above: Performed By: #### C RAMY PARKINSONDM #### [facility] [address] [place] [address] Dr. Jorge L Carey Urea nitrogen/Creatinine [Mass ratio] 12.5 mg/mg Normal [facility] Comment on above: Performed By: #### C RAMY PARKINSONDM #### [facility] [address] [place] [address] Dr. Jorge L Carey TROPONIN, HIGH SENSITIVITYon 07-01-2022 HSTROP 10.9 pg/mL Normal 4.0-76.1 [facility] Comment on above: Result Comment: CUT- OFF POINTS HAVE BEEN ESTABLISHED BASED ON THE FOURTH UNIVERSAL DEFINITIONS OF MYOCARDIAL INFARCTION. THE UPPER REFERENCE LIMIT (URL) OF TROPONIN, DEFINED THE 99TH PERCENTILE OF cTnI DISTRIBUTION IN A REFERENCE POPULATION, HAS BEEN CONFIRMED THE DECISION THRESHOLD FOR SC DIAGNOSIS. Performed By: #### B MP, LIPID, ALT, URIC #### [facility] [address] [place] [address] Dr. Jorge L Carey XR CHEST 1 [...] Date: 2022-07-01 19:57 Normal [facility] CBC AUTO DIFFon 04-18-2022 BASO # 0.0 103/ul Normal 0.0-0.1 [facility] Comment on above: Performed By: #### C BC #### [facility] [address] [place] [address] Dr. Jorge L Carey Basophils/100 WBC (Bld) 0.7 % Normal 0.2-2.0 [facility] Comment on above: Performed By: #### C BC #### [facility] [address] [place] [address] Dr. Jorge L Carey EO # 0.2 103/ul Normal 0.0-0.7 [facility] Comment on above: Performed By: #### C BC #### [facility] [address] [place] [address] Dr. Jorge L Carey Eosinophils/100 WBC (Bld) 2.6 % Normal 0.9-7.0 [facility] Comment on above: Performed By: #### C BC #### [facility] [address] [place] [address] Dr. Jorge L Carey Erythrocyte distribution width (RBC) [Ratio] 11.5 % Normal 11.0-15.0 [facility] Comment on above: Performed By: #### C BC #### [facility] [address] [place] [address] Dr. Jorge L Carey Hematocrit (Bld) [Volume fraction] 44.7 % Normal 42.0-54.0 [facility] Comment on above: Performed By: #### C BC #### [facility] [address] [place] [address] Dr. Jorge L Carey Hemoglobin (Bld) [Mass/Vol] 15.5 g/dL Normal 14.0-18.0 [facility] Comment on above: Performed By: #### C BC #### [facility] [address] [place] [address] Dr. Jorge L Carey IG # 0.01 10e3/ul Normal 0.00-0.03 [facility] Comment on above: Performed By: #### C BC #### [facility] [address] [place] [address] Dr. Jorge L Carey IG % 0.2 % Normal 0.0-0.5 [facility] Comment on above: Performed By: #### C BC #### [facility] [address] [place] [address] Dr. Jorge L Carey LYMPH # 1.3 103/ul Normal 1.2-3.8 [facility] Comment on above: Performed By: #### C BC #### [facility] [address] [place] [address] Dr. Jorge L Carey Lymphocytes/100 WBC (Bld) 21.3 % Normal 20.5-60.0 [facility] Comment on above: Performed By: #### C BC #### [facility] [address] [place] [address] Dr. Jorge L Carey MANUAL DIFF REQ NO Normal [facility] Comment on above: Performed By: #### C BC #### [facility] [address] [place] [address] Dr. Jorge L Carey MCH (RBC) [Entitic mass] 30.1 pg Normal 25.9-34.0 [facility] Comment on above: Performed By: #### C BC #### [facility] [address] [place] [address] Dr. Jorge L Carey MCHC (RBC) [Mass/Vol] 34.7 g/dL Normal 29.9-35.2 [facility] Comment on above: Performed By: #### C BC #### [facility] [address] [place] [address] Dr. Jorge L Carey MCV (RBC) [Entitic vol] 86.8 fL Normal 80.0-94.0 [facility] Comment on above: Performed By: #### C BC #### [facility] [address] [place] [address] Dr. Jorge L Carey MONO # 0.4 103/ul Normal 0.3-0.8 [facility] Comment on above: Performed By: #### C BC #### [facility] [address] [place] [address] Dr. Jorge L Carey Monocytes/100 WBC (Bld) 7.2 % Normal 1.7-12.0 [facility] Comment on above: Performed By: #### C BC #### [facility] [address] [place] [address] Dr. Jorge L Carey NEUT # 4.1 103/ul Normal 1.4-6.5 [facility] Comment on above: Performed By: #### C BC #### [facility] [address] [place] [address] Dr. Jorge L Carey Neutrophils/100 WBC (Bld) 68.0 % Normal 43.0-75.0 [facility] Comment on above: Performed By: #### C BC #### [facility] [address] [place] [address] Dr. Jorge L Carey Platelet mean volume (Bld) [Entitic vol] 12.0 fL Normal 9.5-13.5 [facility] Comment on above: Performed By: #### C BC #### [facility] [address] [place] [address] Dr. Jorge L Carey PLT 163 103/ul Normal 150-450 [facility] Comment on above: Performed By: #### C BC #### [facility] [address] [address] [address] Jorge L Carey RBC 5.15 106/ul Normal 4.70-6.10 [facility] Comment on above: Performed By: #### C BC #### [facility] [address] [address] [address] Jorge L Carey WBC 6.1 103/ul Normal 4.0-11.0 [facility] Comment on above: Performed By: #### C BC #### [facility] [address] [address] [address] Jorge L Carey GLYCOHEMOGLOBIN A1Con 2021 ADA RECOMMENDATION SEE BELOW Normal [facility] Comment on above: Result Comment: ADA RECOMMENDED LIMIT 4.0 - 6.0 ADA THERAPEUTIC TARGET < 7.0 ACTION SUGGESTED > 7.0 Performed By: #### B MP, LIPID, ALT, URIC #### [facility] [address] [address] [address] Jorge L Carey Glucose [Mass/Vol] 146 mg/dL Normal [facility] Comment on above: Performed By: #### B MP, LIPID, ALT, URIC #### [facility] [address] [address] [address] Jorge L Carey HbA1c (Bld) [Mass fraction] 6.7 % Critically high 4.5-6.2 [facility] Comment on above: Performed By: #### B MP, LIPID, ALT, URIC #### [facility] [address] [place] [address] Dr. Jorge L Carey LIPID PROFILEon 04-18-2022 CHOL-HDL RATIO NORM SEE BELOW Normal [facility] Comment on above: Result Comment: 3.3 - 4.4 LOW RISK 4.4 - 7.1 AVERAGE RISK 7.1 - 11.0 MODERATE RISK >11.0 HIGH RISK Performed By: #### B MP, LIPID, ALT, URIC #### [facility] [address] [address] [address] Jorge L Carey Cholesterol [Mass/Vol] 117 mg/dL Normal <=200 [facility] Comment on above: Performed By: #### B MP, LIPID, ALT, URIC #### [facility] [address] [address] [address] Jorge L Carey Cholesterol in HDL [Mass/Vol] 48 mg/dL Normal 40-60 [facility] Comment on above: Performed By: #### B MP, LIPID, ALT, URIC #### [facility] [address] [address] [address] Jorge L Carey Cholesterol in LDL [Mass/Vol] 50.6 mg/dL Normal [facility] Comment on above: Performed By: #### B MP, LIPID, ALT, URIC #### [facility] [address] [address] [address] Jorge L Carey Cholesterol.total/Cho lesterol in HDL [Mass ratio] 2.4 {ratio} Normal [facility] Comment on above: Performed By: #### B MP, LIPID, ALT, URIC #### [facility] [address] [address] [address] Jorge L Carey HDL NORMAL > or = 60 mg/dl - LOW CARDIOVASCULAR RISK <40 mg/dl - HIGH CARDIOVASCULAR RISK Normal [facility] Comment on above: Performed By: #### B MP, LIPID, ALT, URIC #### [facility] [address] [place] [address] Dr. Jorge L Carey LDL CALC NORMAL SEE BELOW Normal [facility] Comment on above: Result Comment: <100 mg/dl OPTIMAL 100 - 129 mg/dl NEAR OR ABOVE OPTIMAL 130 - 159 mg/dl BORDERLINE HIGH 160 - 189 mg/dl HIGH >190 mg/dl VERY HIGH Performed By: #### B MP, LIPID, ALT, URIC #### [facility] [address] [address] [address] Jorge L Carey Triglyceride [Mass/Vol] 92 mg/dL Normal <=150 [facility] Comment on above: Performed By: #### B MP, LIPID, ALT, URIC #### [facility] [address] [address] [address] Jorge L Carey VLDL CALC 18.4 mg/dL Normal [facility] Comment on above: Performed By: #### B MP, LIPID, ALT, URIC #### [facility] [address] [place] [address] Dr. Jorge L Carey MICROALBUMIN, RAND URon 11-0 mALB <1.3 Normal <=30.0 [facility] Comment on above: Performed By: #### M ALBR #### [facility] [address] [place] [address] Dr. Jorge L Carey PROF CHEM 8 (BAS METB)on Anion gap [Moles/Vol] 9.5 mmol/L Normal [facility] Comment on above: Performed By: #### B MP, LIPID, ALT, URIC #### [facility] [address] [place] [address] Dr. Jorge L Carey Calcium [Mass/Vol] 8.6 mg/dL Normal 8.5-10.1 [facility] Comment on above: Performed By: #### B MP, LIPID, ALT, URIC #### [facility] [address] [place] [address] Dr. Jorge L Carey Chloride [Moles/Vol] 102 mmol/L Normal 98-107 [facility] Comment on above: Performed By: #### B MP, LIPID, ALT, URIC #### [facility] [address] [place] [address] Dr. Jorge L Carey CO2 [Moles/Vol] 30.8 mmol/L Normal 21.0-32.0 [facility] Comment on above: Performed By: #### B MP, LIPID, ALT, URIC #### [facility] [address] [place] [address] Dr. Jorge L Carey Creatinine [Mass/Vol] 0.95 mg/dL Normal 0.70-1.30 [facility] Comment on above: Performed By: #### B MP, LIPID, ALT, URIC #### [facility] [address] [place] [address] Dr. Jorge L Carey EGFR-AF SOUTH AFRICAN >60 Normal >=60 [facility] Comment on above: Performed By: #### B MP, LIPID, ALT, URIC #### [facility] [address] [address] [address] Jorge L Carey EGFR-NON AF SOUTH AFRICAN >60 Normal >=60 [facility] Comment on above: Performed By: #### B MP, LIPID, ALT, URIC #### [facility] [address] [address] [address] Jorge L Carey Glucose [Mass/Vol] 142 mg/dL Critically high 74-106 [facility] Comment on above: Performed By: #### B MP, LIPID, ALT, URIC #### [facility] [address] [place] [address] Dr. Jorge L Carey Potassium [Moles/Vol] 4.3 mmol/L Normal 3.5-5.1 [facility] Comment on above: Performed By: #### B MP, LIPID, ALT, URIC #### [facility] [address] [address] [address] Jorge L Carey Sodium [Moles/Vol] 138 mmol/L Normal 136-145 [facility] Comment on above: Performed By: #### B MP, LIPID, ALT, URIC #### [facility] [address] [address] [address] Jorge L Carey Urea nitrogen [Mass/Vol] 14.0 mg/dL Normal 7.0-18.0 [facility] Comment on above: Performed By: #### B MP, LIPID, ALT, URIC #### [facility] [address] [address] [address] Jorge L Carey Urea nitrogen/Creatinine [Mass ratio] 14.7 mg/mg Normal [facility] Comment on above: Performed By: #### B MP, LIPID, ALT, URIC #### [facility] [address] [place] [address] Dr. Jorge L Carey SGPTon 04-18-2022 ALT [Catalytic activity/Vol] 27 U/L Normal 16-63 [facility] Comment on above: Performed By: #### B MP, LIPID, ALT, URIC #### [facility] [address] [place] [address] Dr. Jorge L Carey URIC ACID SERUMon 04-18-2022 Urate [Mass/Vol] 5.5 mg/dL Normal 3.5-7.2 [facility] Comment on above: Performed By: #### B MP, LIPID, ALT, URIC #### [facility] [address] [place] [address] Dr. Jorge L Carey GLYCOHEMOGLOBIN A1Con 2021 ADA RECOMMENDATION SEE BELOW Normal [facility] Comment on above: Result Comment: ADA RECOMMENDED LIMIT 4.0 - 6.0 ADA THERAPEUTIC TARGET < 7.0 ACTION SUGGESTED > 7.0 Performed By: #### B MP, LIPID, ALT, URIC #### [facility] [address] [place] [address] Dr. Jorge L Carey Glucose [Mass/Vol] 160 mg/dL Normal [facility] Comment on above: Performed By: #### B MP, LIPID, ALT, URIC #### [facility] [address] [place] [address] Dr. Jorge L Carey HbA1c (Bld) [Mass fraction] 7.2 % Critically high 4.5-6.2 [facility] Comment on above: Performed By: #### B MP, LIPID, ALT, URIC #### [facility] [address] [place] [address] Dr. Jogre L Carey GLYCOHEMOGLOBIN A1Con 2021 ADA RECOMMENDATION ADA THERAPEUTIC TARGET 6.0 - 7.0 ACTION SUGGESTED > 7.0 Normal [facility] Comment on above: Performed By: #### B MP, LIPID, ALT, URIC #### [facility] [address] [place] [address] Dr. Jorge L Carey Glucose [Mass/Vol] 177 mg/dL Normal [facility] Comment on above: Performed By: #### B MP, LIPID, ALT, URIC #### [facility] [address] [place] [address] Dr. Jorge L Carey HbA1c (Bld) [Mass fraction] 7.8 % Critically high <=6.0 [facility] Comment on above: Performed By: #### B MP, LIPID, ALT, URIC #### [facility] [address] [place] [address] Dr. Jorge L Carey [facility] [employer] 09-17-2020 Glucose [Mass/Vol] 151 mg/dL Normal [facility] Comment on above: Result Comment: PERF ORMED BY: [facility] [address] [place] [address] PATHOLOGIST INVESTMENT STRATEGIST SUSAN SEXTON M.D. Performed By: #### O FEDEEALETA GLYCO #### [facility] [address] HbA1c (Bld) [Mass fraction] 6.9 % High 4.3-5.[address] [facility] Comment on above: Result Comment: Incr eased risk for diabetes: 5.7 - 6.4 diabetes: >6.4 glycemic control for adults with diabetes: <7.0 Performed By: #### O FEDEEALETA GLYCO #### [facility] [address] Vital Signs Date Time Vital Sign Value Performing Clinician Facility 02-18-2024 09:37-0400 Body height 190.5 cm [facility] 02-18-2024 09:37-0400 Body mass index (BMI) [Ratio] 32.1 kg/m2 [facility] 02-18-2024 09:37-0400 Body weight 116.74 kg [facility] 02-18-2024 09:37-0400 Diastolic blood pressure 81 mm[Hg] [facility] 02-18-2024 09:37-0400 Heart rate 76 /min [facility] 02-18-2024 09:37-0400 Respiratory rate 12 /min [facility] 02-18-2024 09:37-0400 Systolic blood pressure 136 mm[Hg] [facility] 10-18-2023 09:06-0400 Body height 190.5 cm [facility] 10-18-2023 09:06-0400 Body mass index (BMI) [Ratio] 31.8 kg/m2 [facility] 10-18-2023 09:06-0400 Body weight 115.32 kg [facility] 10-18-2023 09:06-0400 Diastolic blood pressure 77 mm[Hg] [facility] 10-18-2023 09:06-0400 Heart rate 80 /min [facility] 10-18-2023 09:06-0400 Respiratory rate 12 /min [facility] 10-18-2023 09:06-0400 Systolic blood pressure 116 mm[Hg] [facility] 07-08-2023 09:00-0500 Body height 190.5 cm Bogdan Ball Other [facility] Other 07-08-2023 09:00-0500 Body mass index (BMI) [Ratio] 32.62 kg/m2 Bogdan Ball Other [place] [facility] Other 07-08-2023 09:00-0500 Body weight 118.39 kg Bogdan Ball Other [facility] Other 07-08-2023 09:00-0500 Diastolic blood pressure 81 mm[Hg] Bogdan Ball Other [facility] Other 07-08-2023 09:00-0500 Respiratory rate 12 /min Bogdan Ball Other [facility] Other 07-08-2023 09:00-0500 Systolic blood pressure 117 mm[Hg] Bogdan Ball Other [facility] Other 05-01-2023 08:30-0500 Body height 190.5 cm Bogdan Ball Other [facility] Other 05-01-2023 08:30-0500 Body mass index (BMI) [Ratio] 32.19 kg/m2 Bogdan Ball Other [facility] Other 05-01-2023 08:30-0500 Body weight 116.85 kg Bogdan Ball Other [facility] Other 05-01-2023 08:30-0500 Diastolic blood pressure 81 mm[Hg] Bogdan Ball Other [facility] Other 05-01-2023 08:30-0500 Respiratory rate 12 /min Bogdan Ball Other [facility] Other 05-01-2023 08:30-0500 Systolic blood pressure 135 mm[Hg] Bogdan Ball Other [facility] Other 12-26-2022 08:30-0400 Body height 190.5 cm Bogdan Ball Other [facility] Other 12-26-2022 08:30-0400 Body mass index (BMI) [Ratio] 31.54 kg/m2 Bogdan Ball Other [facility] Other 12-26-2022 08:30-0400 Body weight 114.49 kg Bogdan Ball Other [facility] Other 12-26-2022 08:30-0400 Diastolic blood pressure 85 mm[Hg] Bogdan Ball Other [facility] Other 12-26-2022 08:30-0400 Respiratory rate 12 /min Bogdan Ball Other [facility] Other 12-26-2022 08:30-0400 Systolic blood pressure 139 mm[Hg] Bogdan Ball Other [facility] Other 11-09-2022 10:58-0400 Blood Pressure Location Hola JOSE [facility] 11-09-2022 10:58-0400 Diastolic blood pressure 80 mm[Hg] Hola GARCIA [facility] 11-09-2022 10:58-0400 Heart rate 78 /min Hola GARCIA [facility] 11-09-2022 10:58-0400 Respiratory rate 16 /min Hola GARCIA [facility] 11-09-2022 10:58-0400 Systolic blood pressure 130 mm[Hg] Hola GARCIA [facility] 10-05-2022 12:15-0400 Body height 190.5 cm Bogdan Ball Other [facility] [employer] Other 10-05-2022 12:15-0400 Body mass index (BMI) [Ratio] 31.17 kg/m2 Bogdan Ball Other [facility] Other 10-05-2022 12:15-0400 Body weight 113.13 kg Bogdan Ball Other [facility] Other 10-05-2022 12:15-0400 Diastolic blood pressure 95 mm[Hg] Bogdan Ball Other [place] [facility] Other 10-05-2022 12:15-0400 Respiratory rate 12 /min Bogdan Ball Other [place] [facility] Other 10-05-2022 12:15-0400 Systolic blood pressure 168 mm[Hg] Bogdan Ball Other [facility] Other 08-23-2022 08:30-0500 Body height 190.5 cm Bogdan Ball Other [facility] Other 08-23-2022 08:30-0500 Body mass index (BMI) [Ratio] 31.42 kg/m2 Bogdan Ball Other [facility] Other 08-23-2022 08:30-0500 Body weight 114.04 kg Bogdan Ball Other [facility] Other 08-23-2022 08:30-0500 Diastolic blood pressure 86 mm[Hg] Bogdan Ball Other [facility] Other 08-23-2022 08:30-0500 Respiratory rate 12 /min Bogdan Ball Other [facility] Other 08-23-2022 08:30-0500 Systolic blood pressure 132 mm[Hg] Bogdan Ball Other [facility] Other 10-06-2021 08:14-0400 Blood Pressure Location Hola GARCIA [facility] 10-06-2021 08:14-0400 Diastolic blood pressure 98 mm[Hg] Hola GARCIA [facility] 10-06-2021 08:14-0400 Heart rate 78 /min Hola GARCIA [facility] 10-06-2021 08:14-0400 Systolic blood pressure 145 mm[Hg] Hola GARCIA [facility] iTagged Encounters Encounter Date Encounter Type Care Provider Facility Start: 08-21-2024 End: 08-21-2024 ambulatory Dm Cyr MD Facility:[facility] Start: 06-01-2024 End: 06-01-2024 ambulatory Dm Cyr MD Facility:[facility] Start: 05-04-2024 End: 05-04-2024 ambulatory Andkathy Cyr MD Facility:[facility] Start: 04-20-2024 End: 04-20-2024 ambulatory Dm Cyr MD Facility:[facility] Start: 04-03-2024 ambulatory Hola Cid ty:[facility] [place] Start: 02-18-2024 End: 02-18-2024 ambulatory [facility] Work Phone: Start: 02-18-2024 End: 02-18-2024 Patient encounter procedure [facility] Physician [facility] Work Phone: Start: 02-11-2024 Non-patient / Non-visit [facility] Physician [facility] Work Phone: Start: 10-18-2023 End: 10-18-2023 ambulatory [facility] Work Phone: Start: 10-18-2023 End: 10-18-2023 Patient encounter procedure [facility] Physician [facility] Work Phone: Start: 10-12-2023 Non-patient / Non-visit [facility] Physician [facility] Work Phone: Start: 08-23-2023 Non-patient / Non-visit [facility] Physician [facility] Work Phone: Start: 08-16-2023 Non-patient / Non-visit [facility] Physician [facility] Work Phone: Start: 07-30-2023 Non-patient / Non-visit [facility] Physician [facility] Work Phone: Start: 07-29-2023 End: 07-29-2023 ambulatory Bogdan Green Other [facility] Other Start: 07-29-2023 Telephone encounter Bogdan Green [facility] Start: 07-08-2023 End: 07-08-2023 ambulatory Bogdan Green Other [facility] Other Start: 07-08-2023 Office outpatient vi sit 25 minutes Bogdan Ball [facility] Start: 05-10-2023 End: 05-10-2023 ambulatory Bogdan Ball Other [facility] Other Start: 05-10-2023 Office outpatient vi sit 15 minutes Bogdan Ball [facility] Start: 05-01-2023 End: 05-01-2023 ambulatory Bogdan Ball Other [facility] Other Start: 05-01-2023 Patient encounter procedure Bogdan Ball [facility] Start: 04-24-2023 End: 04-24-2023 ambulatory Bogdan Ball Other [facility] Other Start: 04-24-2023 Telephone encounter Bogdan Ball [facility] Start: 02-25-2023 End: 02-25-2023 ambulatory Bogdan Ball Other [facility] Other Start: 02-25-2023 Telephone encounter Bogdan Ball [facility] Start: 12-27-2022 End: 12-27-2022 ambulatory Bogdan Ball Other [facility] Other Start: 12-27-2022 Telephone encounter Bogdan Ball [facility] Start: 12-26-2022 End: 12-26-2022 ambulatory Bogdan Ball Other [facility] Other Start: 12-26-2022 Office outpatient vi sit 25 minutes Bogdan Ball [facility] Start: 11-19-2022 End: 11-19-2022 ambulatory Bogdan Ball Other [facility] Other Start: 11-19-2022 Telephone encounter Bogdan Ball [facility] Start: 11-09-2022 End: 11-09-2022 Patient encounter procedure Hola GARCIA [facility] Start: 10-22-2022 End: 10-22-2022 ambulatory Bogdan Green Other [facility] Other Start: 10-22-2022 Telephone encounter Bogdan Green [facility] Start: 10-18-2022 End: 10-18-2022 ambulatory Bogdan Green Other [facility] Other Start: 10-18-2022 Telephone encounter Bogdan Ball [facility] Start: 10-05-2022 End: 10-05-2022 ambulatory Bogdan Green Other [facility] Other Start: 10-05-2022 Office outpatient vi sit 15 minutes Bogdan Green [facility] Start: 09-27-2022 End: 09-27-2022 ambulatory Bogdan rGeen Other [facility] Other Start: 09-27-2022 Telephone encounter Bogdan Ball [facility] Start: 09-25-2022 End: 09-25-2022 ambulatory Bogdan Green Other [facility] Other Start: 09-25-2022 Telephone encounter Bogdan Green [facility] Start: 09-21-2022 End: 09-21-2022 ambulatory Bogdan Green Other [facility] Other Start: 09-21-2022 Telephone encounter Bogdan Ball [facility] Start: 08-23-2022 End: 08-23-2022 ambulatory Bogdan Green Other [facility] Other Start: 08-23-2022 Office outpatient vi sit 25 minutes Bogdan Ball [facility] Start: 08-17-2022 End: 08-18-[address] BOGDAN GREEN Facility: Start: 08-14-2022 End: 08-14-2022 ambulatory Bogdan Peter Other [facility] Other Start: 08-14-2022 Telephone encounter Bogdan Green [facility] Start: 07-01-2022 End: 07-01-[address] BOGDAN GREEN Facility:[facility] Start: 04-25-2022 Adult health examination Bogdan Green Other [facility] [employer] Other Start: 04-18-2022 End: 04-19-[address] BOGDAN GREEN Facility:[facility] Start: 01-20-2022 End: 01-21-2022 ambulatory NONE LISTED REQUEST Facility:[facility] Start: 10-06-2021 End: 10-06-2021 Patient encounter procedure Hola GARCIA [facility] Start: 09-16-2021 End: 09-17-[address] HOLA GARCIA . Facility:[facility] Start: 09-15-2021 End: 09-16-2021 ambulatory NONE LISTED REQUEST Facility:[facility] Start: 08-29-[address] BOGDAN GREEN Facili ty:[facility] Procedures Date Procedure Procedure Detail Performing Clinician Start: 09-16-[address] PISANO IN [place] Comment on above: Performed By: #### B MP, LIPID, ALT, URIC #### [facility] [address] [place] [address] Dr. Jorge L Carey Start: 03-29-2017 General [...] Activity Detail Author [facility] 2 [facility] Immunizations Immunization Date Immunization Notes Care Provider Cinthia bartlett 04-29-2023 zoster vaccine recombinant Bogdan Green Other [facility] 04-26-2023 influenza virus vaccine, unspecified formulation [facility] 04-26-2023 influenza, high dose seasonal, preservative-free Bogdan Green Other [facility] 02-26-2023 zoster vaccine recombinant Bogdan Peter Other [facility] 04-25-2022 pneumococcal 20-alber nt conjugate vaccine Hola GARCIA [facility] 04-16-2022 influenza virus vaccine, split virus (incl. purified surface antigen) Bogdan Green Other [facility] Other 04-16-2022 influenza virus vaccine, unspecified formulation Hola GARCIA [facility] 03-23-2022 SARS-CoV-2 (COVID-19 ) [id number] Hola GARCIA [facility] 05-08-2021 SARS-CoV-2 (COVID-19 ) mRNA BNT-162b2 vax Hola GARCIA [facility] 04-22-2021 influenza virus vaccine, split virus (incl. purified surface antigen) Bogdan Green Other [facility] 04-22-2021 influenza virus vaccine, unspecified formulation Hola GARCIA [facility] 03-30-2021 influenza virus vaccine, unspecified formulation Hola GARCIA [facility] 09-16-2020 COVID-19, mRNA, LNP- S, PF, 30 mcg/0.3 mL dose; Translations: [Pfizer-BioNTech COVID-19 Vaccine] Hola GARCIA [facility] Comment on above: Reason for Medicatio n: Prophylaxis 08-26-2020 COVID-19, mRNA, LNP- S, PF, 30 mcg/0.3 mL dose; Translations: [Pfizer-BioNTech COVID-19 Vaccine] Hola GARCIA [facility] Comment on above: Reason for Medicatio n: Prophylaxis 04-16-2020 influenza virus vaccine, split virus (incl. purified surface antigen) Bogdan Green Other [facility] 04-16-2020 influenza virus vaccine, unspecified formulation Hola GARCIA [facility] pneumococcal Conjuga te, unspecified formulation; Translations: [Need for prophylactic vaccination against Streptococcus pneumoniae (pneumococcus)] Bogdan Green Other [facility] Other Payers Date Payer Category Payer Medicare 2022 Unknown 2021 Medicare [id number] 2020 Unknown [id number] 1959 Medicare [id number] 1959 Self-pay [id number] 1959 Unknown [id number] 1959 Unknown [id number] 1956 Unknown [id number] 2.16.84 [id number] 1956 Unknown [id number] 2.16.84 [id number] 1956 Unknown [id number] 2.16.84 0.1.075743.3.579.2.593 1956 Unknown [id number] 2.16.84 0.1.073847.3.579.2.593 1956 Unknown [id number] 2.16.84 0.1.311382.3.579.2.593 1956 Unknown [id number] 2.16.8 40.1.287295.3.579.2.727 1956 Unknown [id number] 2.16. 840.1.489806.3.579.2.196 1956 Unknown [id number] 2.16. 840.1.287210.3.579.2.196 1956 Unknown [id number] 2.16. 840.1.376573.3.579.2.196 1956 Unknown [id number] 2.16. [id number] Blue Cross Blue Shield [id number] [id number] Self-pay Self Pay [id number] Unknown [id number] 2.16.84 [id number] Unknown [id number] 2.16.84 [id number] Social History Date Type Detail Facility Start: 10-06-2021 End: 07-27-2023 Tobacco smoking status Never smoked tobacco (finding) [facility] Sex Assigned At Male [facility] Tobacco smoking status Never [facility] Start: 1955 Sex Assigned At Male F [facility] Medical Equipment Procedure Code Equipment Code Equipment [...] 11-09-2022 Functional Status N/A [facility] Clinical Notes 10-06-2021 to 08-21-2024 [...] created on his/her behalf by a trained medical case manager. The creation of this document is based on the provider?s statements to the medical case manager. Electronically signed by Dm Cyr MD 08/21/24 11:25 EST Electronically signed by Cyn Osorio 08/21/2024 11:18 EST [facility] 08-21-2024 Note History of Present I [...] created on his/her behalf by a trained medical case manager. The creation of this document is based on the provider?s statements to the medical case manager. Problem List/Past Medical History Ongoing Acid reflux [...] signed by DevonCyn clark Pauline 08/21/2024 09:29 [facility] 07-29-2023 Evaluation note Encounter Date Diagnosis Assessment Notes Jul, Type 2 diabetes mellitus with hyperglycemia , without long-term current use of insulin (ICD-10 - E11.65) [facility] 01-22-2024 Evaluation note* Encounter Date Diagnosis [...] index [BMI] 32.0-32.9, adult (ICD-10 - Z68.32) [facility] 11-24-2023 Evaluation note* Encounter Date Diagnosis [...] Microalbumin, Dilated eye exam and Foot exam [facility] 11-15-2023 Evaluation note* Encounter Date Diagnosis [...] flares Sep, Thrombocytopenia, unspecified (ICD-10 - D69.6) [facility] 11-15-2023 Evaluation note* Encounter Date Diagnosis [...] flares Sep, Thrombocytopenia, unspecified (ICD-10 - D69.6) [facility] 11-08-2023 Evaluation note* Encounter Date Diagnosis Assessment Notes Treatment Notes Treatment Clinical Notes Apr, Screening PSA (prostate specific antigen) (ICD-10 - Z12.5) Apr, Type 2 diabetes mellitus with hyperglycemia, without long-term current use of insulin (ICD-10 - E11.65) Apr, Elevated cholesterol (ICD-10 - E78.00) Apr, Primary hypertension (ICD-10 - I10) Sep, Thrombocytopenia, unspecified (ICD-10 - D69.6) Thrombocytopenia [facility] 07-12-2023 Evaluation note* Encounter Date Diagnosis [...] [BMI] 31.0-31.9, adult (ICD-10 - Z68.31) Dec, snf (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 (ICD-10 - Z79.4) [facility] 05-26-2023 Hospital Discharge instructions Patient Education [...] treatment? Where to find more information [employer]: www.cancer.org [employer]: www.auanet.org Contact a health care [...] provider. Document Revised: 11/27/2021 Document Reviewed: 11/27/2021 [employer] Patient Education 2022 [employer]. Follow Up Care 10/06/2021 08:40:21 With:JOSE MCMANUS, Hola Rushing, URL Address: [facility] [address] , [place] [address]- When: Unknown [facility] 05-08-2023 Evaluation note* Encounter Date Diagnosis Assessment Notes Treatment Notes Treatment Clinical Notes October, Primary hypertension (ICD-10 - I10) [facility] 05-04-2023 Evaluation note* Encounter Date Diagnosis Assessment Notes Treatment Notes Treatment Clinical Notes October, Primary hypertension (ICD-10 - I10) [facility] 04-21-2023 Evaluation note* Encounter Date Diagnosis [...] and Glimepiride appear to be controlling BS. [facility] 04-13-2023 Evaluation note* Encounter Date Diagnosis Assessment Notes Treatment Notes Treatment Clinical Notes Sep, Type 2 diabetes mellitus with hyperglycemia (ICD-10 - E11.65) Sep, snf (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 (ICD-10 - Z79.4) [facility] 04-11-2023 Evaluation note* Encounter Date Diagnosis Assessment Notes Treatment Notes Treatment Clinical Notes Sep, Type 2 diabetes mellitus with hyperglycemia, without long-term current use of insulin (ICD-10 - E11.65) [facility] 04-07-2023 Evaluation note* Encounter Date Diagnosis Assessment Notes Treatment Notes Treatment Clinical Notes Sep, Type 2 diabetes mellitus with hyperglycemia (ICD-10 - E11.65) [facility] 03-09-2023 Evaluation note* Encounter Date Diagnosis [...] Reviewed red flag symptoms and nerve impingement [facility] 02-28-2023 Evaluation note* Encounter Date Diagnosis Assessment Notes Treatment Notes Treatment Clinical Notes Jul, Type 2 diabetes mellitus with hyperglycemia, without long-term current use of insulin (ICD-10 - E11.65) [facility] 04-22-2022 Hospital Discharge instructions Patient Education [...] urethra. Follow these instructions at home: Take ancb-lep-ykvzpny and prescription medicines only as told by [...] 06/03/2006 Document Revised: 04/28/2019 Document Reviewed: 07/08/2017 [employer] Patient Education [employer]. Follow Up Care 10/03/2020 15:00:49 With:Hola GARCIA MD, URL Address: [facility] [address], [place] [address]- [phone] When:10/06/2022 [facility] evaluation + Plan note Future Appointments Appointment Date:10/12/2022 08:00:00 AM Scheduled Provider:Hola GARCIA MD Location:[facility] Appointment Type:URO Office Visit Diagnostic Tests Pending * PSA Total 10/06/21 [facility] evaluation + Plan note Future Appointments Appointment Date:11/18/2023 08:45:00 AM Scheduled Provider:Hola GARCIA MD Location:[facility] Appointment Type:URO Office Visit Diagnostic Tests Pending * PSA Free & Total 11/09/22 [facility] evaluation noteNort [facility] Other Evaluation note* Diagnosis Onset Date Resolution Status Elevated cholesterol acute Gastroesophageal reflux dise ase with esophagitis without hemorrhage acute Obesity acute Primary hypertension acute Spondylosis without myelopat hy or radiculopathy, lumbar region acute Type 2 diabetes mellitus with hyperglycemia acute [facility] Work Phone: Evaluation note* Diagnosis Onset Date Resolution Status Elevated cholesterol acute Gastroesophageal reflux dise ase with esophagitis without hemorrhage acute Primary hypertension acute Spondylosis without myelopat hy or radiculopathy, lumbar region acute Type 2 diabetes mellitus with hyperglycemia acute [facility] Work Phone: History general Narrative - Reported* [...] CYSTOSCOPY 2016 Hospitalization History SEE SURGICAL HX [facility] History [facility] Other History general Narrative - Reported* Type [...] CYSTOSCOPY 2016 Hospitalization History SEE SURGICAL HX [facility] Other Hospital course Narrative No data available for this section [facility] [employer] progress note No data available for this section [facility] [employer] Summary Purpose Family History No Family History [...] well ness visit, initial (Z00.00) Referral Organization [facility] Referring Provider First Name Bogdan Referring Provider Last Name Peter Referring Provider Specialty Internal Me dicine Referred Organization [facility] Referred Provider Swapnil French Referred Address [address], [place],[address] Referred Provider Specialty Pain Medicin e Referral [...] Notes Include XR lumbar sp ine f: [id number] Chief Complaint and Reason for Visit Chief [...] section and content) DATE CREATED AUTHOR 07/30/2021 [facility] DATE CREATED AUTHOR AUTHOR'S ORGANIZ ATION 08/22/2022 [facility] DATE CREATED AUTHOR AUTHOR'S ORGANIZ ATION 11/14/2023 Kobi Gonzalez [facility] DATE CREATED AUTHOR AUTHOR'S ORGANIZ ATION 08/25/2024 [facility] REASON FOR VISIT (unrecogniz ed section and content) BS readingsElevated blood cifuentes [id number] [employer] ResultsBP readingsrefillelevated BPMedication4 MONTH FOLLOW UP [...] ON THE PRIMARY CLINICAL RECORDS. [facility] [employer] [facility]. provides no warranty or guarantee of the accuracy or completeness of information in this document.
--- NOTE | 2024-09-30 10:59 | P.CN_ITS ---
Consult Note: HPI Data of Consult Patient: known to practice within the last 3 years Requesting Physician: Radha Cope NP Primary Care Provider: Bogdan Green, DO Consult Narrative Reason for consult: f/u Narrative: Esdras Correa a pleasant 69 year old male presents for evaluation. since vertiflex at L4-5 was placed patient has noticed significant improvement in functional ability and overall pain. today low back pain 0/10, intermittent severe pain >6/10 without known cause or aggravating/alleviating factors per pt. pt utilizes tylenol, motrin PRN, heat, ice without benefit. denies falls/injury. cc:: CC: Radha Cope NP Review of Systems ROS Status of ROS 10 or more systems reviewed and unremark able except as noted in history and below Musculoskeletal Denies: back pain or extremity pain PFSH PFSH Medical History History of stress test ?Z92.89 - Personal history of other medical treatment (ICD-10) Acid reflux ?K21.9 - Gastro-esophageal reflux disease without esophagitis (ICD-10) Diabetes ?E11.9 - Type 2 diabetes mellitus without complications (ICD-10) HTN (hypertension) ?I10 - Essential (primary) hypertension (ICD-10) Surgical History History of hernia repair ?Z98.890 - Other specified postprocedural states (ICD-10) ?Z87.19 - Personal history of other diseases of the digestive system (ICD-10) Meds Home Medications and Allergies Home Medications ?Medication ?Instructions ?Recorded ?Confirmed ?Type allopurinol 100 mg tablet 100 mg PO DAILY 06/14/23 05/04/24 History amlodipine 5 mg tablet 5 mg PO DAILY 06/14/23 05/04/24 History atorvastatin 10 mg tablet 10 mg PO DAILY 06/14/23 05/04/24 History benazepril 5 mg tablet 20 mg PO DAILY 06/14/23 05/04/24 History finasteride 5 mg tablet 5 mg PO DAILY 06/14/23 05/04/24 History glimepiride 4 mg tablet 4 mg PO DAILY 06/14/23 05/04/24 History insulin glargine 100 unit/mL (3 25 unit subcut DAILY 06/14/23 05/04/24 History mL) subcutaneous pen (Lantus Solostar U-100 Insulin) latanoprost 0.005 % eye drops 1 drp ophthalmic (eye) DAILY 06/14/23 05/04/24 History metformin 1,000 mg tablet 1,000 mg PO BID 06/14/23 05/04/24 History tamsulosin 0.4 mg capsule 0.4 mg PO Q24H 06/14/23 05/04/24 History cetirizine 10 mg capsule (All Day 10 mg PO DAILY PRN allergy symptoms 06/24/23 05/04/24 History Allergy (cetirizine)) omeprazole 10 mg capsule,delayed 10 mg PO DAILY 06/24/23 05/04/24 History release dulaglutide 0.75 mg/0.5 mL 0.75 mg subcut QWEEK 08/07/23 05/04/24 History subcutaneous pen injector (Trulicity) Allergies Allergy/AdvReac Type Severity Reaction Status Date / Time No Known Drug Allergies Allergy Verified 05/04/24 10:11 Exam Constitutional Documenting provider has reviewed patient's vital signs: yes Common normals: no apparent distress, oriented x3, healthy appearing, alert and well nourished General appearance: cooperative HENMT Common normals: normocephalic, hearing grossly normal bilaterally and moist oral mucous membranes Head and scalp: normocephalic Eye Common normals: PERRL Pupil: PERRL Neck & C-Spine Common normals: full ROM General: normal visual inspection Chest Common normals: inspection of chest normal Respiratory Common normals: normal respiratory effort, no retractions and no use of accessory muscles Back & Pelvis Thoracic spine/upper back: ROM not limited, no pain with ROM and no thoracic spinal tenderness Other: intermittent pain and heaviness following L5/S1 pattern to BLE Neuro Common normals: oriented x3 Sensorium/orientation: alert Psych Common normals: mental status grossly normal, thought process normal, cooperative, affect normal, speech normal and activity/motor behavior normal Speech: normal speech Thought process: normal thought process Assessment and Plan Assessment and Plan (1) Lumbar stenosis with neurogenic claudication: (2) Degenerative disc disease, lumbar: (3) Lumbar spondylosis: Plan overall patient doing very well after L4-5 vertiflex completed 08/21/24. notable improvement in day to day functional ability, pt able to stand and walk for as long as he wants with minimal pain and NC symptoms. he is noticing intermittent severe low back and buttock pain without obvious cause or aggravating factors, pain does not respond well to tylenol, motrin, heat, ice, or rest. will trial tramadol 50mg once daily as needed for moderate to severe pain 7 tabs to last 30 days. risks vs benefits reviewed. update UDS today. defer L5-S1 TFESI at this time as pain is not consistent. pt able to resume normal activities at this time. f/u 3 months, sooner if pain worsens.
== END 2024-09-30 10:33 | disposition home or self-care (01) ==
LOC: PM 10:32
PROVIDERS: PCP Internal Medicine; Visit Provider Nurse Practitioner
DX: M48.062 Spinal stenosis, lumbar region with neurogenic claudication (principal); M51.369 Other intervertebral disc degeneration, lumbar region without mention of lumbar back pain or lower extremity pain; M47.816 Spondylosis without myelopathy or radiculopathy, lumbar region; Z51.81 Encounter for therapeutic drug level monitoring
CPT/HCPCS: G0463

== ENCOUNTER 2024-10-05 06:32 | Outpatient (OUT) | payer MEDICARE, BC, SELFPAY ==
--- OUTSIDE RECORDS SUMMARY | 2024-10-05 06:34 | XMS_ITS | CCD ---
Author Organization [facility] Care Team Providers Care Study Abroad Advisor Name Role Phone BOGDAN GREEN Primary Care [...] physicia Propensity to adverse reactions 6 Comment:Done [employer] Other (2 sources) No Known Medication Allergies; Translations: [No Known Medication Allergies] Propensity to adverse reactions (disorder) [facility] Repository Medications Current Medications Medication Drug [...] day(s), # 90 tab(s), Refills(s) 3, Pharmacy: [facility]/pharmacy #[id number], 195, cm, 11/09/22 11:00:00 EDT, Height/Length Dosing, 111, kg, 11/09/22 11:00:00 EDT, Weight Dosing Start Date: 11/09/22 Stop Date: 11/04/23 Status: Ordered Start: 10-06-2021 take 1 tablet by osbaldo once daily finasteride 5 mg Tab 5 mg = 1 tab(s), Oral, Daily, # 90 tab(s), Refills(s) 3, Pharmacy: [facility]/pharmacy #[id number], 195, cm, 10/06/21 8:16:00 EDT, [...] bid for 5 days Apr, Active Pen Allen 5/16 (15 sources) Start: 09-27-2022 Start: 09-27-2022 Pen Allen 5/ 16 Use to inject insulin qd [...] acid 4700 mg / polyethylene glycol 3350 [id number] mg / potassium chloride 1015 mg / [...] care facility (current) drug therapy; 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: [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] Onset: 07-03-2022 Episodic Other aftercare (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; Translations: [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 USE ORAL HYPOGLYCEMIC DX] Onset: 07-03-2022 Episodic Other aftercare (15 sources) Long-term current use of insulin; Translations: [senior care (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] Episodic Other aftercare (2 sources) senior care (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 Episodic Other aftercare (2 sources) Long-term current use of drug therapy; Translations: [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] Episodic Other and unspecified [...] 025 Glucose [Mass/Vol] 147 mg/dL High 70-99 [facility] Comment on above: Performed By: #### C [id number] #### [address] [address] Glucose mean value [Mass/vol ume] in Blood Estimated from glycated hemoglobinon 02-11-2024 Average glucose Estimated from glycated hemoglobin (Bld) [Mass/Vol] 169 mg/dL [facility] - Hematology and Cell countson 02-11-2024 HbA1c (Bld) [Mass fraction] 7.5 % High 4.5-6.2 [facility] Comment on above: ADA RECOMMENDED LIMI T 4.0 - 6.0ADA THERAPEUTIC TARGET < 7.0ACTION SUGGESTED> 7.0 Glucose mean value [Mass/vol ume] in Blood Estimated from glycated hemoglobinon 10-12-2023 Average glucose Estimated from glycated hemoglobin (Bld) [Mass/Vol] 180 mg/dL [facility] - Hematology and Cell countson 10-12-2023 HbA1c (Bld) [Mass fraction] 7.9 % 4.5-6.2 [facility] Comment on above: ADA [...] URIC #### [facility] [address] [place] [address] Dr. Jorge L Carey Glucose [Mass/Vol] 148 mg/dL Normal [facility] Comment on above: Performed By: #### B MP, LIPID, ALT, URIC #### [facility] [address] [address] [address] Jorge L Carey HbA1c (Bld) [Mass fraction] 6.8 % Critically high 4.5-6.2 [facility] Comment on above: Performed By: #### B MP, LIPID, ALT, URIC #### [facility] [address] [address] [address] Jorge L Carey CARDIAC DANAY ADMITon 023 CK [Catalytic activity/Vol] 59 U/L Normal 39-308 [facility] Comment on above: Performed By: #### C MP, CMADM #### [facility] [address] [place] [address] Dr. Jorge L Carey CK.MB [Mass/Vol] 0.99 ng/mL Normal <=3.60 [facility] Comment on above: Performed By: #### C MP, CMADM #### [facility] [address] [address] [address] Jorge L Carey HSTROP 10.0 pg/mL Normal 4.0-76.1 [facility] Comment on above: Result Comment: CUT- OFF POINTS HAVE BEEN ESTABLISHED BASED ON THE FOURTH UNIVERSAL DEFINITIONS OF MYOCARDIAL INFARCTION. THE UPPER REFERENCE LIMIT (URL) OF TROPONIN, DEFINED THE 99TH PERCENTILE OF cTnI DISTRIBUTION IN A REFERENCE POPULATION, HAS BEEN CONFIRMED THE DECISION THRESHOLD FOR TX DIAGNOSIS. Performed By: #### C IGGY, CMADM #### [facility] [address] [place] [address] Dr. Jorge L Carey GARLAND 52 ng/mL Normal 16-96 [facility] Comment on above: Performed By: #### C IGGY, CMADM #### [facility] [address] [place] [address] Dr. Jorge L Carey CBC AUTO DIFFon 07-01-2022 BASO # 0.0 103/ul Normal 0.0-0.1 [facility] Comment on above: Performed By: #### B MP, LIPID, ALT, URIC #### [facility] [address] [place] [address] Dr. Jorge L Carey Basophils/100 WBC (Bld) 0.3 % Normal 0.2-2.0 [facility] Comment on above: Performed By: #### B MP, LIPID, ALT, URIC #### [facility] [address] [place] [address] Dr. Jorge L Carey EO # 0.1 103/ul Normal 0.0-0.7 [facility] Comment on above: Performed By: #### B MP, LIPID, ALT, URIC #### [facility] [address] [place] [address] Dr. Jorge L Carey Eosinophils/100 WBC (Bld) 0.9 % Normal 0.9-7.0 [facility] Comment on above: Performed By: #### B MP, LIPID, ALT, URIC #### [facility] [address] [place] [address] Dr. Jorge L Carey Erythrocyte distribution width (RBC) [Ratio] 11.7 % Normal 11.0-15.0 [facility] Comment on above: Performed By: #### B MP, LIPID, ALT, URIC #### [facility] [address] [place] [address] Dr. Jorge L Carey Hematocrit (Bld) [Volume fraction] 41.1 % Critically low 42.0-54.0 [facility] Comment on above: Performed By: #### B MP, LIPID, ALT, URIC #### [facility] [address] [place] [address] Dr. Jorge L Carey Hemoglobin (Bld) [Mass/Vol] 14.5 g/dL Normal 14.0-18.0 [facility] Comment on above: Performed By: #### B MP, LIPID, ALT, URIC #### [facility] [address] [place] [address] Dr. Jorge L Carey IG # 0.02 10e3/ul Normal 0.00-0.03 [facility] Comment on above: Performed By: #### B MP, LIPID, ALT, URIC #### [facility] [address] [place] [address] Dr. Jorge L Carey IG % 0.3 % Normal 0.0-0.5 [facility] Comment on above: Performed By: #### B MP, LIPID, ALT, URIC #### [facility] [address] [place] [address] Dr. Jorge L Carey LYMPH # 1.1 103/ul Critically low 1.2-3.8 [facility] Comment on above: Performed By: #### B MP, LIPID, ALT, URIC #### [facility] [address] [place] [address] Dr. Jorge L Carey Lymphocytes/100 WBC (Bld) 16.6 % Critically low 20.5-60.0 [facility] Comment on above: Performed By: #### B MP, LIPID, ALT, URIC #### [facility] [address] [place] [address] Dr. Jorge L Carey MANUAL DIFF REQ NO Normal [facility] Comment on above: Performed By: #### B MP, LIPID, ALT, URIC #### [facility] [address] [place] [address] Dr. Jorge L Carey MCH (RBC) [Entitic mass] 30.1 pg Normal 25.9-34.0 [facility] Comment on above: Performed By: #### B MP, LIPID, ALT, URIC #### [facility] [address] [place] [address] Dr. Jorge L Carey MCHC (RBC) [Mass/Vol] 35.3 g/dL Critically high 29.9-35.2 [facility] Comment on above: Performed By: #### B MP, LIPID, ALT, URIC #### [facility] [address] [place] [address] Dr. Jorge L Carey MCV (RBC) [Entitic vol] 85.4 fL Normal 80.0-94.0 [facility] Comment on above: Performed By: #### B MP, LIPID, ALT, URIC #### [facility] [address] [place] [address] Dr. Jorge L Carey MONO # 0.4 103/ul Normal 0.3-0.8 [facility] Comment on above: Performed By: #### B MP, LIPID, ALT, URIC #### [facility] [address] [place] [address] Dr. Jorge L Carey Monocytes/100 WBC (Bld) 5.1 % Normal 1.7-12.0 [facility] Comment on above: Performed By: #### B MP, LIPID, ALT, URIC #### [facility] [address] [place] [address] Dr. Jorge L Carey NEUT # 5.3 103/ul Normal 1.4-6.5 [facility] Comment on above: Performed By: #### B MP, LIPID, ALT, URIC #### [facility] [address] [place] [address] Dr. Jorge L Carey Neutrophils/100 WBC (Bld) 76.8 % Critically high 43.0-75.0 [facility] Comment on above: Performed By: #### B MP, LIPID, ALT, URIC #### [facility] [address] [place] [address] Dr. Jorge L Carey Platelet mean volume (Bld) [Entitic vol] 12.1 fL Normal 9.5-13.5 [facility] Comment on above: Performed By: #### B MP, LIPID, ALT, URIC #### [facility] [address] [place], [place] [address] Dr. Jorge L Carey PLT 147 103/ul Critically low 150-450 [facility] Comment on above: Performed By: #### B MP, LIPID, ALT, URIC #### [facility] [address] [place], [place] [address] Dr. Jorge L Carey RBC 4.81 106/ul Normal 4.70-6.10 [facility] Comment on above: Performed By: #### B MP, LIPID, ALT, URIC #### [facility] [address] [place], [place] [address] Dr. Jorge L Carey WBC 6.9 103/ul Normal 4.0-11.0 [facility] Comment on above: Performed By: #### B MP, LIPID, ALT, URIC #### [facility] [address] [address] [address] Jorge L [address] HEAD WO [...] by: MALENA LÓPEZ Date: 2022-07-01 20:24 Normal [facility] Covid-19 PCR (CVDTBH)on 06-17 SARS-CoV-2 [...] for this test is supported by the Manager Business Information of Health and Human Service's declaration that [...] By: #### C VDTBH #### [facility] [address] [place] [address] Dr. Jorge L Carey D-DIMERon 07-01-2022 D-DIMER 0.21 mg/L FEU Normal <=0.59 [facility] Comment on above: Performed By: #### B MP, LIPID, ALT, URIC #### [facility] [address] [place] [address] Dr. Jorge L Carey D-DIMER COMMENTS SEE BELOW Normal [facility] Comment on above: Result Comment: Incr [...] URIC #### [facility] [address] [place] [address] Dr. Jorge L Carey ER URINE PROFILEon 3 Bilirubin Ql (U) Negative Normal NEGATIVE [facility] Comment on above: Performed By: #### B MP, LIPID, ALT, URIC #### [facility] [address] [place] [address] Dr. Jorge L Carey Clarity (U) CLEAR Normal CLEAR [facility] Comment on above: Performed By: #### B MP, LIPID, ALT, URIC #### [facility] [address] [address] [address] Jorge L Carey Color (U) LT. YELLOW Normal YELLOW [facility] Comment on above: Performed By: #### B MP, LIPID, ALT, URIC #### [facility] [address] [place] [address] Dr. Jorge L HERNANDEZ A micrscopic examination will be performed if indicated. Normal [facility] Comment on above: Performed By: #### B MP, LIPID, ALT, URIC #### [facility] [address] [place] [address] Dr. Jorge L Carey Glucose Ql (U) Negative Normal NEGATIVE [facility] Comment on above: Performed By: #### B MP, LIPID, ALT, URIC #### [facility] [address] [place] [address] Dr. Jorge L Carey Hemoglobin Ql (U) Negative Normal NEGATIVE [facility] Comment on above: Performed By: #### B MP, LIPID, ALT, URIC #### [facility] [address] [place] [address] Dr. Jorge L Carey Ketones Ql (U) Negative Normal NEGATIVE [facility] Comment on above: Performed By: #### B MP, LIPID, ALT, URIC #### [facility] [address] [place] [address] Dr. Jorge L Carey LEUKOCYTES Negative Normal NEGATIVE [facility] Comment on above: Performed By: #### B MP, LIPID, ALT, URIC #### [facility] [address] [place] [address] Dr. Jorge L Carey Nitrite Ql (U) Negative Normal NEGATIVE [facility] Comment on above: Performed By: #### B MP, LIPID, ALT, URIC #### [facility] [address] [address] [address] Jorge L Carey pH (U) 6.0 [pH] Normal 5-9 [facility] Comment on above: Performed By: #### B MP, LIPID, ALT, URIC #### [facility] [address] [address] [address] Jorge L Carey SPEC GRAVITY 1.020 Normal 1.005-<=1.025 [facility] Comment on above: Performed By: #### B MP, LIPID, ALT, URIC #### [facility] [address] [address] [address] Jorge L Carey UA PROTEIN Negative Normal NEGATIVE/ TRACE [facility] Comment on above: Performed By: #### B MP, LIPID, ALT, URIC #### [facility] [address] [place] [address] Dr. Jorge L Carey UR MICRO IND NOT INDICATED Normal [facility] Comment on above: Performed By: #### B MP, LIPID, ALT, URIC #### [facility] [address] [place] [address] Dr. Jorge L Carey Urobilinogen Qn (U) 1.0 {Ila'U}/dL Normal 0.2 - 1. 0 [facility] Comment on above: Performed By: #### B MP, LIPID, ALT, URIC #### [facility] [address] [place] [address] Dr. Jorge L Carey INFLUENZA A AND B AGon 07-01 [facility] SEE BELOW Normal [facility] Comment on above: Result Comment: Nega tive for Flu A protein angiten. Infection due to Flu A cannot be ruled out. Flu A angiten in the sample may be below the detection limit of the test. Performed By: #### I NFLUAB #### [facility] [address] [place] [address] Dr. Jorge L Carey INFLUBNEG SEE BELOW Normal [facility] Comment on above: Result Comment: Nega tive for Flu B protein antigen. Infection due to Flu B cannot be ruled out. Flu B antigen in the sample may be below the detection limit of the test. Performed By: #### I NFLUAB #### [facility] [address] [place] [address] Dr. Jorge L Carey INFLUENZA A AG Negative Normal NEGATIVE SEE COMMENT [facility] Comment on above: Performed By: #### I NFLUAB #### [facility] [address] [place] [address] Dr. Jorge L Carey INFLUENZA B AG Negative Normal NEGATIVE SEE COMMENT [facility] Comment on above: Performed By: #### I NFLUAB #### [facility] [address] [place] [address] Dr. Jorge L Carey POINT OF CARE GLUCOSEon 06-17 Glucose [Mass/Vol] 130 mg/dL Critically high 74-106 [facility] Comment on above: Performed By: #### B MP, LIPID, ALT, URIC #### [facility] [address] [place] [address] Dr. Jorge L Carey PROF 14(COMP METB)on 023 Albumin [Mass/Vol] 3.7 g/dL Normal 3.4-5.0 [facility] Comment on above: Performed By: #### C CEE PARKINSON #### [facility] [address] [place] [address] Dr. Jorge L Carey Albumin/Globulin [Mass ratio] 1.2 {ratio} Normal [facility] Comment on above: Performed By: #### C CEE PARKINSON #### [facility] [address] [place] [address] Dr. Jorge L Carey ALP [Catalytic activity/Vol] 49 U/L Normal 46-116 [facility] Comment on above: Performed By: #### C CEE PARKINSON #### [facility] [address] [place] [address] Dr. Jorge L Carey ALT [Catalytic activity/Vol] 30 U/L Normal 16-63 [facility] Comment on above: Performed By: #### C CEE PARKINSON #### [facility] [address] [place] [address] Dr. Jorge L Carey Anion gap [Moles/Vol] 12.7 mmol/L Normal [facility] Comment on above: Performed By: #### C IGGY, CMADM #### [facility] [address] [place] [address] Dr. Jorge L Carey AST [Catalytic activity/Vol] 21 U/L Normal 15-37 [facility] Comment on above: Performed By: #### C IGGY, CMADM #### [facility] [address] [place] [address] Dr. Jorge L Carey Bilirubin [Mass/Vol] 0.5 mg/dL Normal 0.2-1.0 [facility] Comment on above: Performed By: #### C IGGY, CMADM #### [facility] [address] [place] [address] Dr. Jorge L Carey Calcium [Mass/Vol] 8.9 mg/dL Normal 8.5-10.1 [facility] Comment on above: Performed By: #### C IGGY, CMADM #### [facility] [address] [place] [address] Dr. Jorge L Carey Chloride [Moles/Vol] 100 mmol/L Normal 98-107 [facility] Comment on above: Performed By: #### C IGGY, RAMYDM #### [facility] [address] [place] [address] Dr. Jorge L Carey CO2 [Moles/Vol] 29.0 mmol/L Normal 21.0-32.0 [facility] Comment on above: Performed By: #### C IGGY, CMADM #### [facility] [address] [place] [address] Dr. Jorge L Carey Creatinine [Mass/Vol] 1.04 mg/dL Normal 0.70-1.30 [facility] Comment on above: Performed By: #### C IGGY, CMADM #### [facility] [address] [place] [address] Dr. Jorge L Carey EGFR-AF LIBERIAN >60 Normal >=60 [facility] Comment on above: Performed By: #### C IGGY, RAMYDM #### [facility] [address] [place] [address] Dr. Jorge L Carey EGFR-NON AF LIBERIAN >60 Normal >=60 [facility] Comment on above: Performed By: #### C IGGY, CMADM #### [facility] [address] [address] [address] Jorge L Carey Globulin (S) [Mass/Vol] 3.1 g/dL Normal [facility] Comment on above: Performed By: #### C IGGY, CMADM #### [facility] [address] [address] [address] Jorge L Carey Glucose [Mass/Vol] 140 mg/dL Critically high 74-106 [facility] Comment on above: Performed By: #### C IGGY, RAMYDM #### [facility] [address] [place] [address] Dr. Jorge L Carey Potassium [Moles/Vol] 3.7 mmol/L Normal 3.5-5.1 [facility] Comment on above: Performed By: #### C RAMY PARKINSONDM #### [facility] [address] [place] [address] Dr. Jorge L Carey Protein [Mass/Vol] 6.8 g/dL Normal 6.4-8.2 [facility] Comment on above: Performed By: #### C RAMY PARKINSONDM #### [facility] [address] [place] [address] Dr. Jorge L Carey Sodium [Moles/Vol] 138 mmol/L Normal 136-145 [facility] Comment on above: Performed By: #### C IGGY, RAMYDM #### [facility] [address] [place] [address] Dr. Jorge L Carey Urea nitrogen [Mass/Vol] 13.0 mg/dL Normal 7.0-18.0 [facility] Comment on above: Performed By: #### C RAMY PARKINSONDM #### [facility] [address] [place] [address] Dr. Jorge L Carey Urea nitrogen/Creatinine [Mass ratio] 12.5 mg/mg Normal [facility] Comment on above: Performed By: #### C RAMY PARKINSONDM #### [facility] [address] [place] [address] Dr. Jorge L Carey TROPONIN, HIGH SENSITIVITYon 07-01-2022 HSTROP 10.9 pg/mL Normal 4.0-76.1 [facility] Comment on above: Result Comment: CUT- OFF POINTS HAVE BEEN ESTABLISHED BASED ON THE FOURTH UNIVERSAL DEFINITIONS OF MYOCARDIAL INFARCTION. THE UPPER REFERENCE LIMIT (URL) OF TROPONIN, DEFINED THE 99TH PERCENTILE OF cTnI DISTRIBUTION IN A REFERENCE POPULATION, HAS BEEN CONFIRMED THE DECISION THRESHOLD FOR TX DIAGNOSIS. Performed By: #### B MP, LIPID, ALT, URIC #### [facility] [address] [place] [address] Dr. Jorge L Carye XR CHEST 1 Von 07-01-2022 XR CHEST [...] 04-18-2022 BASO # 0.0 103/ul Normal 0.0-0.1 [facility] Comment on above: Performed By: #### C BC #### [facility] [address] [place] [address] Dr. Jorge L Carey Basophils/100 WBC (Bld) 0.7 % Normal 0.2-2.0 [facility] Comment on above: Performed By: #### C BC #### [facility] [address] [place] [address] Dr. Jorge L Carey EO # 0.2 103/ul Normal 0.0-0.7 [facility] Comment on above: Performed By: #### C BC #### [facility] [address] [place] [address] Dr. Jorge L Carey Eosinophils/100 WBC (Bld) 2.6 % Normal 0.9-7.0 [facility] Comment on above: Performed By: #### C BC #### [facility] [address] [place] [address] Dr. Jorge L Carey Erythrocyte distribution width (RBC) [Ratio] 11.5 % Normal 11.0-15.0 [facility] Comment on above: Performed By: #### C BC #### [facility] [address] [place] [address] Dr. Jorge L Carey Hematocrit (Bld) [Volume fraction] 44.7 % Normal 42.0-54.0 [facility] Comment on above: Performed By: #### C BC #### [facility] [address] [place] [address] Dr. Jorge L Carey Hemoglobin (Bld) [Mass/Vol] 15.5 g/dL Normal 14.0-18.0 [facility] Comment on above: Performed By: #### C BC #### [facility] [address] [place] [address] Dr. Jorge L Carey IG # 0.01 10e3/ul Normal 0.00-0.03 [facility] Comment on above: Performed By: #### C BC #### [facility] [address] [place] [address] Dr. Jorge L Carey IG % 0.2 % Normal 0.0-0.5 [facility] Comment on above: Performed By: #### C BC #### [facility] [address] [place] [address] Dr. Jorge L Carye LYMPH # 1.3 103/ul Normal 1.2-3.8 [facility] Comment on above: Performed By: #### C BC #### [facility] [address] [place] [address] Dr. Jorge L Carey Lymphocytes/100 WBC (Bld) 21.3 % Normal 20.5-60.0 [facility] Comment on above: Performed By: #### C BC #### [facility] [address] [place] [address] Dr. Jorge L Carey MANUAL DIFF REQ NO Normal [facility] Comment on above: Performed By: #### C BC #### [facility] [address] [place] [address] Dr. Jorge L Carey MCH (RBC) [Entitic mass] 30.1 pg Normal 25.9-34.0 [facility] Comment on above: Performed By: #### C BC #### [facility] [address] [place] [address] Dr. Jorge L Carey MCHC (RBC) [Mass/Vol] 34.7 g/dL Normal 29.9-35.2 [facility] Comment on above: Performed By: #### C BC #### [facility] [address] [place] [address] Dr. Jorge L Carey MCV (RBC) [Entitic vol] 86.8 fL Normal 80.0-94.0 [facility] Comment on above: Performed By: #### C BC #### [facility] [facility] [address] [place] [address] Dr. Jorge L Carey MONO # 0.4 103/ul Normal 0.3-0.8 [facility] Comment on above: Performed By: #### C BC #### [facility] [address] [place] [address] Dr. Jorge L Carey Monocytes/100 WBC (Bld) 7.2 % Normal 1.7-12.0 [facility] Comment on above: Performed By: #### C BC #### [facility] [address] [place] [address] Dr. Jorge L Carey NEUT # 4.1 103/ul Normal 1.4-6.5 [facility] Comment on above: Performed By: #### C BC #### [facility] [address] [place] [address] Dr. Jorge L Carey Neutrophils/100 WBC (Bld) 68.0 % Normal 43.0-75.0 [facility] Comment on above: Performed By: #### C BC #### [facility] [address] [place] [address] Dr. Jorge L Carey Platelet mean volume (Bld) [Entitic vol] 12.0 fL Normal 9.5-13.5 [facility] Comment on above: Performed By: #### C BC #### [facility] [address] [place] [address] Dr. Jorge L Carey PLT 163 103/ul Normal 150-450 [facility] Comment on above: Performed By: #### C BC #### [facility] [address] [address] [address] Jorge L Carey RBC 5.15 106/ul Normal 4.70-6.10 [facility] Comment on above: Performed By: #### C BC #### [facility] [address] [address] [address] Jorge L Carey WBC 6.1 103/ul Normal 4.0-11.0 [facility] Comment on above: Performed By: #### C BC #### [facility] [address] [address] [address] Jorge L Carey GLYCOHEMOGLOBIN A1Con 2021 ADA RECOMMENDATION SEE BELOW Normal [facility] Comment on above: Result Comment: ADA RECOMMENDED LIMIT 4.0 - 6.0 ADA THERAPEUTIC TARGET < 7.0 ACTION SUGGESTED > 7.0 Performed By: #### B MP, LIPID, ALT, URIC #### [facility] [address] [address] [address] Jorge L Carey Glucose [Mass/Vol] 146 mg/dL Normal [facility] Comment on above: Performed By: #### B MP, LIPID, ALT, URIC #### [facility] [address] [address] [address] Jorge L Carey HbA1c (Bld) [Mass fraction] 6.7 % Critically high 4.5-6.2 [facility] Comment on above: Performed By: #### B MP, LIPID, ALT, URIC #### [facility] [address] [place] [address] Dr. Jorge L Carey LIPID PROFILEon 04-18-2022 CHOL-HDL RATIO NORM SEE BELOW Normal [facility] Comment on above: Result Comment: 3.3 - 4.4 LOW RISK 4.4 - 7.1 AVERAGE RISK 7.1 - 11.0 MODERATE RISK >11.0 HIGH RISK Performed By: #### B MP, LIPID, ALT, URIC #### [facility] [address] [address] [address] Jorge L Carey Cholesterol [Mass/Vol] 117 mg/dL Normal <=200 [facility] Comment on above: Performed By: #### B MP, LIPID, ALT, URIC #### [facility] [address] [address] [address] Jorge L Carey Cholesterol in HDL [Mass/Vol] 48 mg/dL Normal 40-60 [facility] Comment on above: Performed By: #### B MP, LIPID, ALT, URIC #### [facility] [address] [address] [address] Jorge L Carey Cholesterol in LDL [Mass/Vol] 50.6 mg/dL Normal [facility] Comment on above: Performed By: #### B MP, LIPID, ALT, URIC #### [facility] [address] [address] [address] Jorge L Carey Cholesterol.total/Cho lesterol in HDL [Mass ratio] 2.4 {ratio} Normal [facility] Comment on above: Performed By: #### B MP, LIPID, ALT, URIC #### [facility] [address] [address] [address] Jorge L Carey HDL NORMAL > or = 60 mg/dl - LOW CARDIOVASCULAR RISK <40 mg/dl - HIGH CARDIOVASCULAR RISK Normal [facility] Comment on above: Performed By: #### B MP, LIPID, ALT, URIC #### [facility] [address] [place] [address] Dr. Jorge L Carey LDL CALC NORMAL SEE BELOW Normal [facility] Comment on above: Result Comment: <100 mg/dl OPTIMAL 100 - 129 mg/dl NEAR OR ABOVE OPTIMAL 130 - 159 mg/dl BORDERLINE HIGH 160 - 189 mg/dl HIGH >190 mg/dl VERY HIGH Performed By: #### B MP, LIPID, ALT, URIC #### [facility] [address] [address] [address] Jorge L Carey Triglyceride [Mass/Vol] 92 mg/dL Normal <=150 [facility] Comment on above: Performed By: #### B MP, LIPID, ALT, URIC #### [facility] [address] [address] [address] Jorge L Carey VLDL CALC 18.4 mg/dL Normal [facility] Comment on above: Performed By: #### B MP, LIPID, ALT, URIC #### [facility] [address] [place] [address] Dr. Jorge L Carey MICROALBUMIN, RAND URon 11-0 mALB <1.3 Normal <=30.0 [facility] Comment on above: Performed By: #### M ALBR #### [facility] [address] [place] [address] Dr. Jorge L Carey PROF CHEM 8 (BAS METB)on Anion gap [Moles/Vol] 9.5 mmol/L Normal [facility] Comment on above: Performed By: #### B MP, LIPID, ALT, URIC #### [facility] [address] [place] [address] Dr. Jorge L Carey Calcium [Mass/Vol] 8.6 mg/dL Normal 8.5-10.1 [facility] Comment on above: Performed By: #### B MP, LIPID, ALT, URIC #### [facility] [address] [place] [address] Dr. Jorge L Carey Chloride [Moles/Vol] 102 mmol/L Normal 98-107 [facility] Comment on above: Performed By: #### B MP, LIPID, ALT, URIC #### [facility] [address] [place] [address] Dr. Jorge L Carey CO2 [Moles/Vol] 30.8 mmol/L Normal 21.0-32.0 [facility] Comment on above: Performed By: #### B MP, LIPID, ALT, URIC #### [facility] [address] [place] [address] Dr. Jorge L Carey Creatinine [Mass/Vol] 0.95 mg/dL Normal 0.70-1.30 [facility] Comment on above: Performed By: #### B MP, LIPID, ALT, URIC #### [facility] [address] [place] [address] Dr. Jorge L Carey EGFR-AF LIBERIAN >60 Normal >=60 [facility] Comment on above: Performed By: #### B MP, LIPID, ALT, URIC #### [facility] [address] [address] [address] Jorge L Carey EGFR-NON AF LIBERIAN >60 Normal >=60 [facility] Comment on above: Performed By: #### B MP, LIPID, ALT, URIC #### [facility] [address] [address] [address] Jorge L Carey Glucose [Mass/Vol] 142 mg/dL Critically high 74-106 [facility] Comment on above: Performed By: #### B MP, LIPID, ALT, URIC #### [facility] [address] [place] [address] Dr. Jorge L Carey Potassium [Moles/Vol] 4.3 mmol/L Normal 3.5-5.1 [facility] Comment on above: Performed By: #### B MP, LIPID, ALT, URIC #### [facility] [address] [address] [address] Jorge L Carey Sodium [Moles/Vol] 138 mmol/L Normal 136-145 [facility] Comment on above: Performed By: #### B MP, LIPID, ALT, URIC #### [facility] [address] [address] [address] Jorge L Carey Urea nitrogen [Mass/Vol] 14.0 mg/dL Normal 7.0-18.0 [facility] Comment on above: Performed By: #### B MP, LIPID, ALT, URIC #### [facility] [address] [address] [address] Jorge L Carey Urea nitrogen/Creatinine [Mass ratio] 14.7 mg/mg Normal [facility] Comment on above: Performed By: #### B MP, LIPID, ALT, URIC #### [facility] [address] [place] [address] Dr. Jorge L Carey SGPTon 04-18-2022 ALT [Catalytic activity/Vol] 27 U/L Normal 16-63 [facility] Comment on above: Performed By: #### B MP, LIPID, ALT, URIC #### [facility] [address] [place] [address] Dr. Jorge L Carey URIC ACID SERUMon 04-18-2022 Urate [Mass/Vol] 5.5 mg/dL Normal 3.5-7.2 [facility] Comment on above: Performed By: #### B MP, LIPID, ALT, URIC #### [facility] [address] [place] [address] Dr. Jorge L Carey GLYCOHEMOGLOBIN A1Con 2021 ADA RECOMMENDATION SEE BELOW Normal [facility] Comment on above: Result Comment: ADA RECOMMENDED LIMIT 4.0 - 6.0 ADA THERAPEUTIC TARGET < 7.0 ACTION SUGGESTED > 7.0 Performed By: #### B MP, LIPID, ALT, URIC #### [facility] [address] [place] [address] Dr. Jorge L Carey Glucose [Mass/Vol] 160 mg/dL Normal [facility] Comment on above: Performed By: #### B MP, LIPID, ALT, URIC #### [facility] [address] [place] [address] Dr. Jorge L Carey HbA1c (Bld) [Mass fraction] 7.2 % Critically high 4.5-6.2 [facility] Comment on above: Performed By: #### B MP, LIPID, ALT, URIC #### [facility] [address] [place] [address] Dr. Jorge L Carey GLYCOHEMOGLOBIN A1Con 2021 ADA RECOMMENDATION ADA THERAPEUTIC TARGET 6.0 - 7.0 ACTION SUGGESTED > 7.0 Normal [facility] Comment on above: Performed By: #### B MP, LIPID, ALT, URIC #### [facility] [address] [place] [address] Dr. Jorge L Carey Glucose [Mass/Vol] 177 mg/dL Normal [facility] Comment on above: Performed By: #### B MP, LIPID, ALT, URIC #### [facility] [address] [place] [address] Dr. Jorge L Carey HbA1c (Bld) [Mass fraction] 7.8 % Critically high <=6.0 [facility] Comment on above: Performed By: #### B MP, LIPID, ALT, URIC #### [facility] [address] [place] [address] Dr. Jorge L Carey [facility] 09-17-2020 Glucose [Mass/Vol] 151 mg/dL Normal [facility] Comment on above: Result Comment: PERF ORMED BY: [facility] [address] [place] [address] PATHOLOGIST [employer] SUSAN SEXTON M.D. Performed By: #### O FEDEEALETA GLYCO #### [facility] [address] HbA1c (Bld) [Mass fraction] 6.9 % High 4.3-5.6 [facility] Comment on above: Result Comment: Incr eased risk for diabetes: 5.7 - 6.4 diabetes: >6.4 glycemic control for adults with diabetes: <7.0 Performed By: #### O FEDEEALETA GLYCO #### [facility] [address] Vital Signs Date Time Vital Sign Value Performing Clinician Facility 02-18-2024 09:37-0400 Body height 190.5 cm [facility] 02-18-2024 09:37-0400 Body mass index (BMI) [Ratio] 32.1 kg/m2 [facility] 02-18-2024 09:37-0400 Body weight 116.74 kg [facility] 02-18-2024 09:37-0400 Diastolic blood pressure 81 mm[Hg] [facility] 02-18-2024 09:37-0400 Heart rate 76 /min [facility] 02-18-2024 09:37-0400 Respiratory rate 12 /min [facility] 02-18-2024 09:37-0400 Systolic blood pressure 136 mm[Hg] [facility] 10-18-2023 09:06-0400 Body height 190.5 cm [facility] 10-18-2023 09:06-0400 Body mass index (BMI) [Ratio] 31.8 kg/m2 [facility] 10-18-2023 09:06-0400 Body weight 115.32 kg [facility] 10-18-2023 09:06-0400 Diastolic blood pressure 77 mm[Hg] [facility] 10-18-2023 09:06-0400 Heart rate 80 /min [facility] 10-18-2023 09:06-0400 Respiratory rate 12 /min [facility] 10-18-2023 09:06-0400 Systolic blood pressure 116 mm[Hg] [facility] 07-08-2023 09:00-0500 Body height 190.5 cm Bogdan Ball Other [facility] Other 07-08-2023 09:00-0500 Body mass index (BMI) [Ratio] 32.62 kg/m2 Bogdan Ball Other [employer] Other 07-08-2023 09:00-0500 Body weight 118.39 kg Bogdan Ball Other [employer] Other 07-08-2023 09:00-0500 Diastolic blood pressure 81 mm[Hg] Bogdan Ball Other [employer] Other 07-08-2023 09:00-0500 Respiratory rate 12 /min Bogdan Ball Other [employer] Other 07-08-2023 09:00-0500 Systolic blood pressure 117 mm[Hg] Bogdan Ball Other [employer] Other 05-01-2023 08:30-0500 Body height 190.5 cm Bogdan Ball Other [employer] Other 05-01-2023 08:30-0500 Body mass index (BMI) [Ratio] 32.19 kg/m2 Bogdan Ball Other [employer] Other 05-01-2023 08:30-0500 Body weight 116.85 kg Bogdan Ball Other [employer] Other 05-01-2023 08:30-0500 Diastolic blood pressure 81 mm[Hg] Bogdan Ball Other [employer] Other 05-01-2023 08:30-0500 Respiratory rate 12 /min Bogdan Ball Other [employer] Other 05-01-2023 08:30-0500 Systolic blood pressure 135 mm[Hg] Bogdan Ball Other [employer] Other 12-26-2022 08:30-0400 Body height 190.5 cm Bogdan Ball Other [employer] Other 12-26-2022 08:30-0400 Body mass index (BMI) [Ratio] 31.54 kg/m2 Bogdan Ball Other [employer] Other 12-26-2022 08:30-0400 Body weight 114.49 kg Bogdan Ball Other [employer] Other 12-26-2022 08:30-0400 Diastolic blood pressure 85 mm[Hg] Bogdan Ball Other [employer] Other 12-26-2022 08:30-0400 Respiratory rate 12 /min Bogdan Ball Other [employer] Other 12-26-2022 08:30-0400 Systolic blood pressure 139 mm[Hg] Bogdan Ball Other [employer] Other 11-09-2022 10:58-0400 Blood Pressure Location Hola JOSE [facility] 11-09-2022 10:58-0400 Diastolic blood pressure 80 mm[Hg] Hola GARCIA [facility] 11-09-2022 10:58-0400 Heart rate 78 /min Hola GARCIA [facility] 11-09-2022 10:58-0400 Respiratory rate 16 /min Hola GARCIA [facility] 11-09-2022 10:58-0400 Systolic blood pressure 130 mm[Hg] Hola GARCIA [facility] 10-05-2022 12:15-0400 Body height 190.5 cm Bogdan Ball Other [facility] [employer] Other 10-05-2022 12:15-0400 Body mass index (BMI) [Ratio] 31.17 kg/m2 Bogdan Ball Other [employer] Other 10-05-2022 12:15-0400 Body weight 113.13 kg Bogdan Ball Other [facility] [employer] Other 10-05-2022 12:15-0400 Diastolic blood pressure 95 mm[Hg] Bogdan Ball Other [employer] Other 10-05-2022 12:15-0400 Respiratory rate 12 /min Bogdan Ball Other [employer] Other 10-05-2022 12:15-0400 Systolic blood pressure 168 mm[Hg] Bogdan Ball Other [employer] Other 08-23-2022 08:30-0500 Body height 190.5 cm Bogdan Ball Other [employer] Other 08-23-2022 08:30-0500 Body mass index (BMI) [Ratio] 31.42 kg/m2 Bogdan Ball Other [employer] Other 08-23-2022 08:30-0500 Body weight 114.04 kg Bogdan Ball Other [employer] Other 08-23-2022 08:30-0500 Diastolic blood pressure 86 mm[Hg] Bogdan Ball Other [employer] Other 08-23-2022 08:30-0500 Respiratory rate 12 /min Bogdan Ball Other [employer] Other 08-23-2022 08:30-0500 Systolic blood pressure 132 mm[Hg] Bogdan Ball Other [employer] Other 10-06-2021 08:14-0400 Blood Pressure Location Hola GARCIA [facility] 10-06-2021 08:14-0400 Diastolic blood pressure 98 mm[Hg] Hola GARCIA [facility] 10-06-2021 08:14-0400 Heart rate 78 /min Hola GARCIA [facility] 10-06-2021 08:14-0400 Systolic blood pressure 145 mm[Hg] Hola GARCIA [facility] [employer] Encounters Encounter Date Encounter Type Care Provider Facility Start: 08-21-2024 End: 08-21-2024 ambulatory [facility] Start: 06-01-2024 End: 06-01-2024 ambulatory Dm Cyr MD Facility:[facility] Start: 05-04-2024 End: 05-04-2024 ambulatory Andkathy Cyr MD Facility:[facility] Start: 04-20-2024 End: 04-20-2024 ambulatory Dm Cyr MD Facility:[facility] Start: 04-03-2024 ambulatory Hola Cid ty:[facility] [place] Start: 02-18-2024 End: 02-18-2024 ambulatory [facility] Work Phone: Start: 02-18-2024 End: 02-18-2024 Patient encounter procedure [facility] Work Phone: Start: 02-11-2024 Non-patient / Non-visit [facility] Work Phone: Start: 10-18-2023 End: 10-18-2023 ambulatory [facility] Work Phone: Start: 10-18-2023 End: 10-18-2023 Patient encounter procedure [facility] Work Phone: Start: 10-12-2023 Non-patient / Non-visit [facility] Work Phone: Start: 08-23-2023 Non-patient / Non-visit [facility] Work Phone: Start: 08-16-2023 Non-patient / Non-visit [facility] Work Phone: Start: 07-30-2023 Non-patient / Non-visit [facility] Work Phone: Start: 07-29-2023 End: 07-29-2023 ambulatory Bogdan Green Other [employer] Other Start: 07-29-2023 Telephone encounter Bogdan Green [facility] Start: 07-08-2023 End: 07-08-2023 ambulatory Bogdan Green Other [employer] Other Start: 07-08-2023 Office outpatient vi sit 25 minutes Bogdan Ball [facility] Start: 05-10-2023 End: 05-10-2023 ambulatory Bogdan Ball Other [employer] Other Start: 05-10-2023 Office outpatient vi sit 15 minutes Bogdan Ball [facility] Start: 05-01-2023 End: 05-01-2023 ambulatory Bogdan Ball Other [employer] Other Start: 05-01-2023 Patient encounter procedure Bogdan Ball [facility] Start: 04-24-2023 End: 04-24-2023 ambulatory Bogdan Ball Other [employer] Other Start: 04-24-2023 Telephone encounter Bogdan Ball [facility] Start: 02-25-2023 End: 02-25-2023 ambulatory Bogdan Ball Other [employer] Other Start: 02-25-2023 Telephone encounter Bogdan Ball [facility] Start: 12-27-2022 End: 12-27-2022 ambulatory Bogdan Ball Other [employer] Other Start: 12-27-2022 Telephone encounter Bogdan Ball [facility] Start: 12-26-2022 End: 12-26-2022 ambulatory Bogdan Ball Other [employer] Other Start: 12-26-2022 Office outpatient vi sit 25 minutes Bogdan Ball [facility] Start: 11-19-2022 End: 11-19-2022 ambulatory Bogdan Ball Other [employer] Other Start: 11-19-2022 Telephone encounter Bogdan Ball [facility] Start: 11-09-2022 End: 11-09-2022 Patient encounter procedure oHla GARCIA [facility] Start: 10-22-2022 End: 10-22-2022 ambulatory Bogdan Green Other [employer] Other Start: 10-22-2022 Telephone encounter Bogdan Green [facility] Start: 10-18-2022 End: 10-18-2022 ambulatory Bogdan Green Other [employer] Other Start: 10-18-2022 Telephone encounter Bogdan Ball [facility] Start: 10-05-2022 End: 10-05-2022 ambulatory Bogdan Green Other [employer] Other Start: 10-05-2022 Office outpatient vi sit 15 minutes Bogdan Green [facility] Start: 09-27-2022 End: 09-27-2022 ambulatory Bogdan Green Other [employer] Other Start: 09-27-2022 Telephone encounter Bogdan Ball [facility] Start: 09-25-2022 End: 09-25-2022 ambulatory Bogdan Green Other [employer] Other Start: 09-25-2022 Telephone encounter Bogdan Green [facility] Start: 09-21-2022 End: 09-21-2022 ambulatory Bogdan Green Other [employer] Other Start: 09-21-2022 Telephone encounter Bogdan Ball [facility] Start: 08-23-2022 End: 08-23-2022 ambulatory Bogdan Green Other [employer] Other Start: 08-23-2022 Office outpatient vi sit 25 minutes Bogdan Ball [facility] Start: 08-17-2022 End: 08-18-[address] BOGDAN GREEN Facility: Start: 08-14-2022 End: 08-14-2022 ambulatory Bogdan Peter Other [employer] Other Start: 08-14-2022 Telephone encounter Bogdan Green [facility] Start: 07-01-2022 End: 07-01-[address] BOGDAN GREEN Facility:[facility] Start: 04-25-2022 Adult health examination Bogdan Green Other [facility] [employer] Other Start: 04-18-2022 End: 04-19-[address] BOGDAN GREEN Facility:[facility] Start: 01-20-2022 End: 01-21-2022 ambulatory NONE LISTED REQUEST Facility:[facility] Start: 10-06-2021 End: 10-06-2021 Patient encounter procedure Hola GARCIA [facility] Start: 09-16-2021 End: 09-17-[address] HOLA GARCIA . Facility:[facility] Start: 09-15-2021 End: 09-16-2021 ambulatory NONE LISTED REQUEST Facility:[facility] Start: 08-29-[address] BOGDAN GREEN Facili ty:[facility] Procedures Date Procedure Procedure Detail Performing Clinician Start: 09-16-[address] PISANO [place] Comment on above: Performed By: #### B MP, LIPID, ALT, URIC #### [facility] [address] [place] [address] Dr. Jorge L Carey Start: 03-29-2017 General examination of patient Bogdan Green Other Start: 12-20-2015 Cystoscopy Hola FAITH Start: 12-15-2013 Hyperlipidemia screening Bogdan Green Other Start: 12-15-2013 Screening for malign ant neoplasm of prostate Bogdan Green Other Colonoscopy Hola GARCIA Depression screening Dwight rGeen Other History of hernia repair Maureen GARCIA Perirectal abscess (disorder) Hola GARCIA Screening for malign ant neoplasm of colon Bogdan Green Other Plan of Treatment Date Care Activity Detail Author [facility] Immunizations Immunization Date Immunization Notes Care Provider Cinthia bartlett 04-29-2023 zoster vaccine recombinant Bogdan Green Other [facility] 04-26-2023 influenza virus vaccine, unspecified formulation [facility] 04-26-2023 influenza, high dose seasonal, preservative-free Bogdan Green Other [employer] Other 02-26-2023 zoster vaccine recombinant Bogdan Peter Other [facility] 04-25-2022 pneumococcal 20-alber nt conjugate vaccine Hola GARCIA [facility] 04-16-2022 influenza virus vaccine, split virus (incl. purified surface antigen) Bogdan Green Other [facility] Other 04-16-2022 influenza virus vaccine, unspecified formulation Hola GARCIA [facility] 03-23-2022 SARS-CoV-2 (COVID-19 ) [id number] Hola GARCIA [facility] 05-08-2021 SARS-CoV-2 (COVID-19 ) mRNA BNT-162b2 vax Hola GARCIA [facility] 04-22-2021 influenza virus vaccine, split virus (incl. purified surface antigen) Bogdan Green Other [employer] Other 04-22-2021 influenza virus vaccine, unspecified formulation Hola GARCIA [facility] 03-30-2021 influenza virus vaccine, unspecified formulation Hola GARCIA [facility] 09-16-2020 COVID-19, mRNA, LNP- S, PF, 30 mcg/0.3 mL dose; Translations: [Pfizer-BioNTech COVID-19 Vaccine] Hola GARCIA [facility] Comment on above: Reason for Medicatio n: Prophylaxis 08-26-2020 COVID-19, mRNA, LNP- S, PF, 30 mcg/0.3 mL dose; Translations: [Pfizer-BioNTech COVID-19 Vaccine] Hola GARCIA [facility] Comment on above: Reason for Medicatio n: Prophylaxis 04-16-2020 influenza virus vaccine, split virus (incl. purified surface antigen) Bogdan Green Other [employer] Other 04-16-2020 influenza virus vaccine, unspecified formulation Hola GARCIA [facility] pneumococcal Conjuga te, unspecified formulation; Translations: [Need for prophylactic vaccination against Streptococcus pneumoniae (pneumococcus)] Bogdan Green Other [employer] Other Payers Date Payer Category Payer Medicare 2022 Unknown 2021 Medicare [id number] 2020 Unknown [id number] 1959 Medicare [id number] 1959 Self-pay [id number] 1959 Unknown [id number] 1959 Unknown [id number] 1956 Unknown [id number] 2.16.84 0.1.623964.3.579.2.593 1956 Unknown [id number] 2.16.84 0.1.098304.3.579.2.593 1956 Unknown [id number] 2.16.84 0.1.939718.3.579.2.593 1956 Unknown [id number] 2.16.84 0.1.183257.3.579.2.593 1956 Unknown [id number] 2.16.84 0.1.404228.3.579.2.593 1956 Unknown [id number] 2.16.8 40.1.333863.3.579.2.727 1956 Unknown [id number] 2.16. 840.1.265291.3.579.2.196 1956 Unknown [id number] 2.16. 840.1.587868.3.579.2.196 1956 Unknown [id number] 2.16. 840.1.764073.3.579.2.196 1956 Unknown [id number] 2.16. 840.1.562290.3.579.2.196 Blue Cross Blue Shield [id number] [id number] Self-pay Self Pay [id number] Unknown [id number] 2.16.84 0.1.204026.3.579.2.593 Unknown [id number] 2.16.84 0.1.982871.3.579.2.593 Social History Date Type Detail Facility Start: 10-06-2021 End: 07-27-2023 Tobacco smoking status Never smoked tobacco (finding) [facility] Sex Assigned At Male [facility] Tobacco smoking status Never [facility] Start: 1955 Sex Assigned At Male F [facility] Medical Equipment Procedure Code Equipment Code [...] 11-09-2022 Functional Status N/A [facility] Clinical Notes 10-06-2021 to 08-21-2024 Note Date [...] on his/her behalf by a trained medical parasitologist. The creation of this document is based on the provider?s statements to the medical parasitologist. Electronically signed by Dm Cyr MD 08/21/24 11:25 EST Electronically signed by Cyn Osorio 08/21/2024 11:18 EST [facility] 08-21-2024 Note History of Present I [...] on his/her behalf by a trained medical parasitologist. The creation of this document is based on the provider?s statements to the medical parasitologist. Problem List/Past Medical History Ongoing Acid reflux [...] signed by DevonCyn clark Pauline 08/21/2024 09:29 [facility] 07-29-2023 Evaluation note Encounter Date Diagnosis Assessment Notes Jul, Type 2 diabetes mellitus with hyperglycemia , without long-term current use of insulin (ICD-10 - E11.65) [employer] Other 01-22-2024 Evaluation note* Encounter Date Diagnosis [...] index [BMI] 32.0-32.9, adult (ICD-10 - Z68.32) [employer] Other 11-24-2023 Evaluation note* Encounter Date Diagnosis [...] Microalbumin, Dilated eye exam and Foot exam [employer] Other 11-15-2023 Evaluation note* Encounter Date Diagnosis [...] flares Sep, Thrombocytopenia, unspecified (ICD-10 - D69.6) [employer] Other 11-15-2023 Evaluation note* Encounter Date Diagnosis [...] flares Sep, Thrombocytopenia, unspecified (ICD-10 - D69.6) [employer] Other 11-08-2023 Evaluation note* Encounter Date Diagnosis Assessment Notes Treatment Notes Treatment Clinical Notes Apr, Screening PSA (prostate specific antigen) (ICD-10 - Z12.5) Apr, Type 2 diabetes mellitus with hyperglycemia, without long-term current use of insulin (ICD-10 - E11.65) Apr, Elevated cholesterol (ICD-10 - E78.00) Apr, Primary hypertension (ICD-10 - I10) Sep, Thrombocytopenia, unspecified (ICD-10 - D69.6) Thrombocytopenia [facility] Other 07-12-2023 Evaluation note* Encounter Date Diagnosis [...] [BMI] 31.0-31.9, adult (ICD-10 - Z68.31) Dec, senior care (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 (ICD-10 - Z79.4) [facility] Other 05-26-2023 Hospital Discharge instructions Patient Education [...] treatment? Where to find more information [employer]: www.cancer.org [employer]: www.auanet.org Contact a health care [...] provider. Document Revised: 11/27/2021 Document Reviewed: 11/27/2021 [employer] Patient Education 2022 [employer]. Follow Up Care 10/06/2021 08:40:21 With:JOSE MCMANUS, Hola Rushing, URL Address: [facility] [address] , [place] [id number]- When: Unknown [facility] 05-08-2023 Evaluation note* Encounter Date Diagnosis Assessment Notes Treatment Notes Treatment Clinical Notes October, Primary hypertension (ICD-10 - I10) [facility] Other 05-04-2023 Evaluation note* Encounter Date Diagnosis Assessment Notes Treatment Notes Treatment Clinical Notes October, Primary hypertension (ICD-10 - I10) [facility] Other 04-21-2023 Evaluation note* Encounter Date Diagnosis [...] and Glimepiride appear to be controlling BS. [employer] Other 04-13-2023 Evaluation note* Encounter Date Diagnosis Assessment Notes Treatment Notes Treatment Clinical Notes Sep, Type 2 diabetes mellitus with hyperglycemia (ICD-10 - E11.65) Sep, senior care (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 (ICD-10 - Z79.4) [employer] Other 04-11-2023 Evaluation note* Encounter Date Diagnosis Assessment Notes Treatment Notes Treatment Clinical Notes Sep, Type 2 diabetes mellitus with hyperglycemia, without long-term current use of insulin (ICD-10 - E11.65) [employer] Other 04-07-2023 Evaluation note* Encounter Date Diagnosis Assessment Notes Treatment Notes Treatment Clinical Notes Sep, Type 2 diabetes mellitus with hyperglycemia (ICD-10 - E11.65) [facility] Other 03-09-2023 Evaluation note* Encounter Date Diagnosis [...] Reviewed red flag symptoms and nerve impingement [employer] Other 02-28-2023 Evaluation note* Encounter Date Diagnosis Assessment Notes Treatment Notes Treatment Clinical Notes Jul, Type 2 diabetes mellitus with hyperglycemia, without long-term current use of insulin (ICD-10 - E11.65) [facility] Other 04-22-2022 Hospital Discharge instructions Patient Education [...] urethra. Follow these instructions at home: Take [id number] and prescription medicines only as told by [...] 06/03/2006 Document Revised: 04/28/2019 Document Reviewed: 07/08/2017 [employer] Patient Education [employer]. Follow Up Care 10/03/2020 15:00:49 With:Hola GARCIA MD, URL Address: [facility] [address], [place] [id number]- [id number] When:10/06/2022 [facility] evaluation + Plan note Future Appointments Appointment Date:10/12/2022 08:00:00 AM Scheduled Provider:Hola GARCIA MD Location:[facility] Appointment Type:URO Office Visit Diagnostic Tests Pending * PSA Total 10/06/21 [facility] evaluation + Plan note Future Appointments Appointment Date:11/18/2023 08:45:00 AM Scheduled Provider:Hola GARCIA MD Location:[facility] Appointment Type:URO Office Visit Diagnostic Tests Pending * PSA Free & Total 11/09/22 [facility] evaluation noteNort [employer] Other Evaluation noteNo InformationNob[facility] [employer] Other Evaluation note* Diagnosis Onset Date Resolution [...] hyperglycemia acute [facility] Work Phone: History general Narrative - [...] CYSTOSCOPY 2016 Hospitalization History SEE SURGICAL HX [employer] Other History general Narrative - [facility] [employer] Other History general Narrative - Reported* Type [...] CYSTOSCOPY 2016 Hospitalization History SEE SURGICAL HX [employer] Other Hospital course Narrative No data available for this section [facility] progress note No data available for this section [facility] Summary Purpose Family History No Family History [...] well ness visit, initial (Z00.00) Referral Organization [facility] C jono Referring Provider First Name Bogdan Referring Provider Last Name Peter Referring Provider Specialty Internal Me dicine Referred Organization [facility] Referred Provider Swapnil French Referred Address [address] [place], [place],[address] Referred Provider Specialty Pain Medicin e Referral [...] Notes Include XR lumbar sp ine f: [id number] Chief Complaint and Reason for Visit Chief [...] and content) DATE CREATED AUTHOR 07/30/2021 [facility] DATE CREATED AUTHOR AUTHOR'S ORGANIZ ATION 08/22/2022 [facility] DATE CREATED AUTHOR AUTHOR'S ORGANIZ ATION 11/14/2023 Kobi Gonzalez [facility] DATE CREATED AUTHOR AUTHOR'S ORGANIZ ATION 08/25/2024 [facility] REASON FOR VISIT (unrecogniz ed section and content) BS readingsElevated blood cifuentes [id number] [facility] ResultsBP readingsrefillelevated BPMedication4 MONTH FOLLOW UP [...] BE BASED ON THE PRIMARY CLINICAL RECORDS. [facility] [employer] [facility]. provides no warranty or guarantee of the accuracy or completeness of information in this document.
[2024-10-05 06:58] LABS: Estimated Average Glucose 177 mg/dL; Glycohemoglobin A1C 7.8 % (4.5-6.2)
== END 2024-10-05 06:33 | disposition home or self-care (01) ==
LOC: LAB 06:32
PROVIDERS: PCP Internal Medicine; Visit Provider Internal Medicine
DX: E11.65 Type 2 diabetes mellitus with hyperglycemia (principal); Z79.4 Long term (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
CPT/HCPCS: 36415; 83036

== ENCOUNTER 2024-12-30 09:10 | Outpatient (OUT) | payer MEDICARE, BC, SELFPAY ==
--- NOTE | 2024-12-30 09:42 | PM.CN ---
Consult Note: HPI Data of Consult Patient: known to practice within the last 3 years Requesting Physician: Radha Cope NP Primary Care Provider: Bogdan Green DO Consult Narrative Reason for consult: f/u Narrative: Esdras Correa a pleasant 69 year old male presents for evaluation. since vertiflex at L4-5 was placed patient has noticed moderate improvement in functional ability and overall pain. today low back pain 0/10, intermittent severe pain >6/10 without known cause or aggravating/alleviating factors per pt. pt utilizes tylenol, motrin PRN, heat, ice without benefit. denies falls/injury. did not trial tramadol prn since last visit. CONSUELO well controlled at 8% cc:: CC: Radha Cope NP Review of Systems ROS Status of ROS 10 or more systems reviewed and unremarkable except as noted in history and below Musculoskeletal Denies: back pain or extremity pain PFSH PFSH Medical History History of stress test �Z92.89 - Personal history of other medical treatment (ICD-10) Acid reflux �K21.9 - Gastro-esophageal reflux disease without esophagitis (ICD-10) Diabetes �E11.9 - Type 2 diabetes mellitus without complications (ICD-10) HTN (hypertension) �I10 - Essential (primary) hypertension (ICD-10) Surgical History History of hernia repair �Z98.890 - Other specified postprocedural states (ICD-10) �Z87.19 - Personal history of other diseases of the digestive system (ICD-10) Meds Home Medications and Allergies Home Medications �Medication �Instructions �Recorded �Confirmed �Type allopurinol 100 mg tablet 100 mg PO DAILY 06/14/23 05/04/24 History amlodipine 5 mg tablet 5 mg PO DAILY 06/14/23 05/04/24 History atorvastatin 10 mg tablet 10 mg PO DAILY 06/14/23 05/04/24 History benazepril 5 mg tablet 20 mg PO DAILY 06/14/23 05/04/24 History finasteride 5 mg tablet 5 mg PO DAILY 06/14/23 05/04/24 History glimepiride 4 mg tablet 4 mg PO DAILY 06/14/23 05/04/24 History insulin glargine 100 unit/mL (3 25 unit subcut DAILY 06/14/23 05/04/24 History mL) subcutaneous pen (Lantus Solostar U-100 Insulin) latanoprost 0.005 % eye drops 1 drp ophthalmic (eye) DAILY 06/14/23 05/04/24 History metformin 1,000 mg tablet 1,000 mg PO BID 06/14/23 05/04/24 History tamsulosin 0.4 mg capsule 0.4 mg PO Q24H 06/14/23 05/04/24 History cetirizine 10 mg capsule (All Day 10 mg PO DAILY PRN allergy symptoms 06/24/23 05/04/24 History Allergy (cetirizine)) omeprazole 10 mg capsule,delayed 10 mg PO DAILY 06/24/23 05/04/24 History release dulaglutide 0.75 mg/0.5 mL 0.75 mg subcut QWEEK 08/07/23 05/04/24 History subcutaneous pen injector (Trulicity) tramadol 50 mg tablet 50 mg PO DAILY PRN pain #7 tabs 09/30/24 Rx Allergies Allergy/AdvReac Type Severity Reaction Status Date / Time No Known Drug Allergies Allergy Verified 05/04/24 10:11 Exam Constitutional Documenting provider has reviewed patient's vital signs: yes Common normals: no apparent distress, oriented x3, healthy appearing, alert and well nourished General appearance: cooperative HENMT Common normals: normocephalic, hearing grossly normal bilaterally and moist oral mucous membranes Head and scalp: normocephalic Eye Common normals: PERRL Pupil: PERRL Neck & C-Spine Common normals: full ROM General: normal visual inspection Chest Common normals: inspection of chest normal Respiratory Common normals: normal respiratory effort, no retractions and no use of accessory muscles Back & Pelvis Thoracic spine/upper back: ROM not limited, no pain with ROM and no thoracic spinal tenderness Other: intermittent pain and heaviness following L5/S1 pattern to BLE Neuro Common normals: oriented x3 Sensorium/orientation: alert Psych Common normals: mental status grossly normal, thought process normal, cooperative, affect normal, speech normal and activity/motor behavior normal Speech: normal speech Thought process: normal thought process Assessment and Plan Assessment and Plan (1) Lumbar stenosis with neurogenic claudication: (2) Degenerative disc disease, lumbar: (3) Lumbar spondylosis: Plan pain overall well controlled per pt, declining repeat l5-S1 TFESI under fluoroscopy at this time. previous injection did provide at least 50% improvement in NC for 3 months but has since worn off continue otc tylenol PRN, declining additional medication management continue HEP as tolerated f/u PRN
== END 2024-12-30 09:11 | disposition home or self-care (01) ==
LOC: PM 09:10
PROVIDERS: PCP Internal Medicine; Visit Provider Nurse Practitioner
DX: M48.062 Spinal stenosis, lumbar region with neurogenic claudication (principal); M51.369 Other intervertebral disc degeneration, lumbar region without mention of lumbar back pain or lower extremity pain; M47.816 Spondylosis without myelopathy or radiculopathy, lumbar region
CPT/HCPCS: G0463

== ENCOUNTER 2025-02-03 06:32 | Outpatient (OUT) | payer MEDICARE, BC, SELFPAY ==
--- OUTSIDE RECORDS SUMMARY | 2025-02-03 06:35 | XMS_ITS | CCD ---
Author Organization [facility] Care Team Providers Care Certified Neurodiagnostic Technologist Name Role Phone BOGDAN GREEN Primary Care Physician [phone] DR BOGDAN GREEN Primary Care Unavailable FRANCISCA [...] Care Unavailable BALL, DR MCFADDEN Consulting Unavailable Bogdan Green Unavailable Hola GARCIA Attending Unavailable Klarissa MCMANUS, [...] physicia Propensity to adverse reactions 6 Comment:Done Coin Other (2 sources) No Known Medication Allergies; Translations: [No Known Medication Allergies] Propensity to adverse reactions (disorder) [facility] Repository Medications Current Medications Medication Drug Class(es) Dates Sig (Normalized) Sig (Original) allopurinol 100 mg oral tablet (16 sources) Xanthine Oxidase Inhibitor Start: 03-10-2024 take 1 tablet by mouth once daily Allopurinol 100 mg tablet Active 0 .ROUTE .COMPLEX March 10, 2024 7:38am TAKE 1 TABLET BY MOUTH EVERY DAY FOR 30 DAYS Start: 07-27-2023 End: 03-10-2024 take 1 tablet by mouth once daily Allopurinol 100 mg tablet Discontinued 1 TAB PO Daily July 27, 2023 1:00am March 10, 2024 7:38am FreeTextSi tablet Orally Once a day; Note: Source Status: Taking; Refills: 12; Qty: 30 Tablet; Provider: Peter Hagan Start: 10-06-2021 take 1 mg by mouth twice daily allopurinol 100 mg Tab mg tab(s), Oral, BID, Refills(s) 0 Start Date: 10/06/21 Status: Ordered amLODIPine 5 mg oral tablet (18 sources) Dihydropyridine Calcium Channel Andrew Start: 02-12-2024 take 1 tablet by mouth once daily Amlodipine 5 mg tablet Active 0 .ROUTE .COMPLEX February 12, 2024 7:38am TAKE 1 TABLET BY MOUTH EVERY DAY FOR 90 DAYS Start: 10-22-2022 End: 02-12-2024 take 1 tablet by mouth once daily Amlodipine 5 mg tablet Discontinued 1 TAB PO Daily July 27, 2023 1:00am February 12, 2024 7:38am FreeTextSi tablet Orally Once a day; Note: Source Status: Continue; Provider: Peter Mcfadden ( ) atorvastatin 10 mg oral tablet (20 sources) HMG-CoA Reductase Inhibitor Start: 07-07-2024 take 1 tablet by mouth once daily Atorvastatin 10 mg tablet Active 0 .ROUTE .COMPLEX July 07, 2024 8:30am TAKE 1 TABLET BY MOUTH EVERY DAY Start: 11-09-2022 End: 07-07-2024 take 1 tablet by mouth once daily Atorvastatin 10 mg tablet Discontinued 1 TAB PO Daily July 27, 2023 1:00am July 07, 2024 8:30am FreeTextSig: TAKE 1 TABLET BY MOUTH EVERY DAY; Note: Source Status: Start; Refills: 11; Qty: 30 Tablet; Provider: Peter Mcfadden ( ) Dulaglutide 3 mg/0.5 mL pen injector (4 sources) Start: 09-07-2024 Dulaglutide 3 mg/0.5 mL pen injector Active 3 MG SUBCUT every week 2 September 07, 2024 5:59pm Start: 07-22-2024 End: 09-07-2024 Dulaglutide 3 mg/0.5 mL pen injector Discontinued 3 MG SUBCUT every week 2 July 22, 2024 2:01pm September 07, 2024 5:59pm Start: 07-21-2024 End: 07-22-2024 Dulaglutide 3 mg/0.5 mL pen injector Discontinued 1.5 MG SUBCUT every week 1 July 21, 2024 10:04am July 22, 2024 2:02pm Start: 04-21-2024 End: 05-18-2024 Dulaglutide 3 mg/0.5 mL pen injector Discontinued 3 MG SUBCUT every week 2 April 21, 2024 5:16pm May 18, 2024 11:09am finasteride 5 mg oral tablet (16 sources) 5-alpha Reductase Inhibitor Start: 05-18-2024 take 1 tablet by mouth once daily Finasteride 5 mg tablet Active 5 MG PO Daily May 18, 2024 11:22am Start: 07-27-2023 End: 05-18-2024 take 1 tablet by mouth twice daily Finasteride 5 mg tablet Discontinued 1 TAB PO Twice daily July 27, 2023 1:00am May 18, 2024 11:23am FreeTextSi tablet Orally twice a day; Note: Source Status: Taking; Provider: Peter Mcfadden ( ) Start: 11-09-2022 End: 11-04-2023 take 1 tablet by mouth once daily finasteride 5 mg Tab 5 mg = 1 tab(s), Oral, Daily, X 90 day(s), # 90 tab(s), Refills(s) 3, Pharmacy: [facility]/pharmacy #[id number], 195, cm, 11/09/22 11:00:00 EDT, Height/Length Dosing, 111, kg, 11/09/22 11:00:00 EDT, Weight Dosing Start Date: 11/09/22 Stop Date: 11/04/23 Status: Ordered Start: 10-06-2021 take 1 tablet by osbaldo th once daily finasteride 5 mg Tab 5 mg = 1 tab(s), Oral, Daily, # 90 tab(s), Refills(s) 3, Pharmacy: [facility]/pharmacy #[id number], 195, cm, 10/06/21 8:16:00 EDT, Height/Length Dosing, 109.5, kg, 10/06/21 8:16:00 EDT, Weight Dosing Start Date: 10/06/21 Status: Ordered glimepiride 4 mg oral tablet (20 sources) Sulfonylurea Start: 12-22-2023 take 2 tablets by mouth once daily at mealtime Glimepiride 4 mg tablet Active 0 .ROUTE .COMPLEX 60 December 22, 2023 2:14pm TAKE 2 TABLETS BY MOUTH ONCE DAILY 30 MINUTES PRIOR TO FIRST MEAL OF THE DAY Start: 07-27-2023 End: 12-22-2023 take 1 tablet by mouth once daily Glimepiride 4 mg tablet Discontinued 4 MG PO Daily October 29, 2023 1:09pm December 22, 2023 2:14pm Start: 07-27-2023 End: 10-28-2023 take 2 tablets by mouth once daily Glimepiride 4 mg tablet Discontinued 2 TAB PO Daily July 27, 2023 1:00am October 28, 2023 5:39pm FreeTextSi tablets Orally once a day; Note: Source Status: Continue; Provider: Peter Hagan Start: 11-09-2022 glimepiride 4 mg Tab Refills(s) 0 Start Date: 11/09/22 Status: Ordered Glimepiride 4 MG 2 tablets taken 30 minutes prior to first meal of day Orally Once a day Active 3 ml insulin glargine 100 unt/ml pen injector (20 sources) Insulin Analog Start: 08-23-2023 End: 08-15-2024 Insulin Glargine (Basaglar Kwikpen U-100 Insulin) 100 unit/mL (3 mL) insulin pen Active 30 UNIT SUBCUT Every evening 15 August 15, 2024 1:00am Start: 11-09-2022 Lantus Solosta r Pen 100 units/mL subcutaneous solution Refills(s) 0 Start Date: 11/09/22 Status: Ordered Start: 09-25-2022 End: 02-18-2024 inject 10 [IU] by subcutaneous injection once at bedtime Insulin Glargine (Basaglar Kwikpen U-100 Insulin) 100 unit/mL (3 mL) insulin pen Discontinued UNIT SUBCUT July 27, 2023 1:00am February 18, 2024 9:43am FreeTextSi units Subcutaneous q HS; Note: Source Status: Not-TakingundefinedPRN; Refills: 5; Qty: 1 Each; Provider: Peter Hagan Start: 09-25-2022 Lantus SoloSta r 100 UNIT/ML 25 units Subcutaneous q HS Sep, Active Start: 09-25-2022 latanoprost 0.05 mg/ml ophthalmic solution (2 sources) Prostaglandin Analog Start: 02-18-2024 take 1 drop(s) into the eye(s) once daily Latanoprost 0.005 % drops Active 1 DROPS EYE-BOTH Daily February 18, 2024 12:00am Start: 02-18-2024 take 1 drop(s) into the eye(s) once daily Latanoprost Active 1 DROPS EYE-BOTH Daily February 18, 2024 12:00am metFORMIN hydrochloride 1000 mg oral tablet (20 sources) Biguanide Start: 09-16-2023 End: 09-06-2024 take 1 tablet by mouth before breakfast Metformin 1,000 mg tablet Active 0 .ROUTE .COMPLEX 180 September 06, 2024 5:06pm TAKE 1 TABLET BY MOUTH BEFORE BREAKFAST AND EVENING MEAL Start: 09-16-2023 take 1 tablet by osbaldo th before breakfast Metformin Active 0 .ROUTE .COMPLEX 180 September 16, 2023 5:10pm TAKE 1 TABLET BY MOUTH BEFORE BREAKFAST AND EVENING MEAL Start: 03-25-2019 End: 09-16-2023 take 1 tablet by mouth twice daily at mealtime Metformin 1,000 mg tablet Discontinued 1000 MG PO Twice daily with [...] (Prilosec Otc) 20 mg tablet,delayed release (DR/EC) (3 sources) Start: 07-27-2023 take 1 tablet by [...] bid for 5 days Apr, Active Pen [place] 5/16 (15 sources) Start: 09-27-2022 Start: 09-27-2022 Pen [place] 5/ 16 Use to inject insulin qd SC daily for 30 days Sep, Active tamsulosin hydrochloride 0.4 mg oral capsule (15 sources) alpha-Adrenergic Andrew Start: 10-06-2021 End: 10-27-2023 take 1 capsule by mouth twice daily Tamsulosin 0.4 mg capsule Active 1 CAP PO Twice daily July 27, 2023 1:00am FreeTextSi capsule Orally twice a day; Note: Source Status: Taking; Provider: Peter Mcfadden ( ) telmisartan 40 mg oral tablet (1 source) Angiotensin 2 Receptor Andrew Start: 05-18-2024 take 1 tablet by mouth once daily Telmisartan 40 mg tablet Active 40 MG PO Daily May 18, 2024 1:00am {20 (nirmatrelvir 150 MG Oral Tablet) / 10 (ritonavir 100 MG Oral Tablet) } Pack [Paxlovid 5-Day] (1 source) Start: 05-10-2023 Paxlovid (300/100) 20 x 150 MG & 10 x 100MG as directed Orally bid for 5 days Apr, Active Completed/Discontinued Medications Medication Drug Class(es) Dates Sig (Normalized) Sig (Original) ascorbic acid 4700 mg / polyethylene glycol 3350 [id number] mg / potassium chloride 1015 mg / [...] 4 more days for 5 Nov, Not-Taking/PRN benazepril hydrochloride 20 mg oral tablet (20 sources) Angiotensin Converting Enzyme Inhibitor Start: 02-12-2024 End: 05-18-2024 take 1 tablet by mouth once daily Benazepril 20 mg tablet Discontinued 0 .ROUTE .COMPLEX February 12, 2024 7:38am May 18, 2024 11:19am TAKE 1 TABLET BY MOUTH EVERY DAY FOR 90 DAYS Start: 02-12-2024 take 1 tablet by osbaldo th once daily Benazepril Active 0 .ROUTE .COMPLEX February 12, 2024 7:38am TAKE 1 TABLET BY MOUTH EVERY DAY FOR 90 DAYS Start: 07-27-2023 End: 02-12-2024 take 1 tablet by mouth once daily Benazepril 20 mg tablet Discontinued 1 TAB PO Daily July 27, [...] Once a day for 30 days Active benzonatate 200 mg oral capsule (10 sources) Non-narcotic Antitussive Start: 11-26-2022 take 1 capsule by mouth every eight hours Benzonatate 200 MG 1 capsule Orally Three times a day for 10 day(s) Nov, Not-Taking/PRN Blood Sugar Diagnostic (2 sources) Start: 08-16-2023 End: 08-16-2023 Blood Sugar Diagnostic Discontinued 0 .Route 50 August 16, 2023 1:00am August 16, 2023 6:08pm As directed 0.5 ml dulaglutide 3 mg/ml auto-injector (20 sources) GLP-1 Receptor Agonist Start: 05-18-2024 End: 07-21-2024 Dulaglutide 1.5 mg/0.5 mL pen injector Discontinued 1.5 MG SUBCUT every week 2 May 18, 2024 11:07am July 21, 2024 10:04am Start: 12-03-2023 End: 04-21-2024 Dulaglutide (Trulicity) 1.5 mg/0.5 mL pen injector Discontinued 1.5 MG SUBCUT every week 2 March 20, 2024 12:40pm April 21, 2024 5:16pm Start: 10-28-2023 End: 12-03-2023 Dulaglutide (Trulicity) 0.75 [...] SKIN ONCE A WEEK for 28 Active pioglitazone 15 mg oral tablet (17 sources) [...] hypertension; Translations: [Essential hypertension] Onset: 04-23-2022 Chronic Comment on above: Echo: LVEF 55%, norm al RV size/function, LVH, ZAYNAB, RVSP 39 02/2024 Genitourinary symptoms and ill-defined conditions (4 sources) Blood in urine; Translations: [Nocturia] 03-25-2019 Episodic Gout and other crystal arthropathies (8 sources) Gout; Translations: [Idiopathic gout, right knee] Onset: 04-18-2022 03-25-2019 Chronic Hyperplasia of prostate (12 sources) Benign prostatic hypertrophy with outflow obstruction; Translations: [Benign prostatic hyperplasia with lower urinary tract symptoms] Onset: 03-05-2014 Chronic Nonspecific chest pain (3 sources) Chest pain; Translations: [Other chest pain] Onset: 06-07-2015 02-27-2024 Episodic Osteoarthritis (4 sources) Osteoarthritis of knee; Translations: [Bilateral primary osteoarthritis of knee] Onset: 05-09-2015 Chronic Other aftercare (1 source) Other long-term (current) drug therapy; 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] Onset: 07-03-2022 Episodic Other aftercare (1 source) intermediate (current) use of oral hypoglycemic drugs; Translations: [SKILLED NURSING USE ORAL HYPOGLYCEMIC DX] Onset: 07-03-2022 Episodic Other aftercare (15 sources) Long-term current use of insulin; Translations: [intermediate (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] Episodic Other aftercare (2 sources) 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 Episodic Other aftercare (2 sources) Long-term current use of drug therapy; Translations: [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] Episodic Other and unspecified [...] connective tissue] Episodic Other lower respiratory disease (2 sources) Dyspnea; Translations: [Dyspnea, unspecified] 02-18-2024 Episodic Other lower respiratory disease (1 source) Dyspnea, unspecified; Translations: [Other respiratory abnormalities] 10-07-2024 Episodic Other nutritional; endocrine; and metabolic disorders [...] Chronic Other nutritional; endocrine; and metabolic disorders (5 sources) Obesity; Translations: [Obesity, unspecified] Onset: 12-15-2013 [...] conditions (not mental disorders or infectious disease) (7 sources) Raised prostate specific antigen; Translations: [Elevated prostate specific antigen [PSA]] Onset: 10-06-2021 Episodic Comment on above: PSA: 0.8 - 04/2024 Other upper respiratory disease (3 sources) Vasomotor [...] Translations: [Malaise and fatigue] Onset: 04-26-2018 Episodic Other connective tissue disease (2 sources) [...] ume] in Blood Estimated from glycated hemoglobinon 10-05-2024 Average glucose Estimated from glycated hemoglobin (Bld) [Mass/Vol] Glucose mean value [Mass/volume] in Blood Estimated from glycated hemoglobin [facility] Hemoglobin A1c percentageon 10-05-2024 HbA1c (Bld) [Mass fraction] Hemoglobin A1c percentage High 4.5-6.2 [facility] Comment on above: ADA RECOMMENDED LIMI T 4.0 - 6.0ADA THERAPEUTIC TARGET < 7.0ACTION SUGGESTED> 7.0 POC Glucose Randomon 025 Glucose [Mass/Vol] 147 mg/dL High 70-99 [facility] Comment on above: Performed By: #### C [id number] #### [place] [address] Glucose mean value [Mass/vol ume] in Blood Estimated from glycated hemoglobinon 02-11-2024 Average glucose Estimated from glycated hemoglobin (Bld) [Mass/Vol] 169 mg/dL [facility] Laboratory - Hematology and Cell countson 02-11-2024 HbA1c (Bld) [Mass fraction] 7.5 % High 4.5-6.2 [facility] Comment on above: ADA RECOMMENDED LIMI T 4.0 - 6.0ADA THERAPEUTIC TARGET < 7.0ACTION SUGGESTED> 7.0 Glucose mean value [Mass/vol ume] in Blood Estimated from glycated hemoglobinon 10-12-2023 Average glucose Estimated from glycated hemoglobin (Bld) [Mass/Vol] 180 mg/dL [facility] - Hematology and Cell countson 10-12-2023 HbA1c (Bld) [Mass fraction] 7.9 % 4.5-6.2 [facility] Comment on above: ADA RECOMMENDED LIMI T 4.0 - 6.0ADA THERAPEUTIC TARGET < 7.0ACTION SUGGESTED> 7.0 GLYCOHEMOGLOBIN A1Con 2022 ADA RECOMMENDATION SEE BELOW Normal [facility] Comment on above: Result Comment: ADA RECOMMENDED LIMIT 4.0 - 6.0 ADA THERAPEUTIC TARGET < 7.0 ACTION SUGGESTED > 7.0 Performed By: #### B MP, LIPID, ALT, URIC #### [facility] [address] [address] [address] Jorge L Carey Glucose [Mass/Vol] 148 mg/dL Normal [facility] Comment on above: Performed By: #### B MP, LIPID, ALT, URIC #### [facility] [address] [address] [address] Jorge L Carey HbA1c (Bld) [Mass fraction] 6.8 % Critically high 4.5-6.2 [facility] Comment on above: Performed By: #### B MP, LIPID, ALT, URIC #### [facility] [address] [address] [address] Jorge L Carey CARDIAC DANAY ADMITon 023 CK [Catalytic activity/Vol] 59 U/L Normal 39-308 [facility] Comment on above: Performed By: #### C MP, CMADM #### [facility] [address] [address] [address] Jorge L Carey CK.MB [Mass/Vol] 0.99 ng/mL Normal <=3.60 [facility] Comment on above: Performed By: #### C MP, CMADM #### [facility] [address] [address] [address] Jorge L Carey HSTROP 10.0 pg/mL Normal 4.0-76.1 [facility] Comment on above: Result Comment: CUT- OFF POINTS HAVE BEEN ESTABLISHED BASED ON THE FOURTH UNIVERSAL DEFINITIONS OF MYOCARDIAL INFARCTION. THE UPPER REFERENCE LIMIT (URL) OF TROPONIN, DEFINED THE 99TH PERCENTILE OF cTnI DISTRIBUTION IN A REFERENCE POPULATION, HAS BEEN CONFIRMED THE DECISION THRESHOLD FOR [place] DIAGNOSIS. Performed By: #### C MP, CMADM #### [facility] [address] [place] [address] Dr. Jorge L Carey GARLAND 52 ng/mL Normal 16-96 [facility] Comment on above: Performed By: #### C MP, CMADM #### [facility] [address] [place] [address] Dr. Jorge L Carey CBC AUTO DIFFon 07-01-2022 BASO # 0.0 103/ul Normal 0.0-0.1 [facility] Comment on above: Performed By: #### B MP, LIPID, ALT, URIC #### [facility] [address] [place] [address] Dr. Jorge L Carey Basophils/100 WBC (Bld) 0.3 % Normal 0.2-2.0 [facility] Comment on above: Performed By: #### B MP, LIPID, ALT, URIC #### [facility] [address] [place] [address] Dr. Jorge L Carey EO # 0.1 103/ul Normal 0.0-0.7 [facility] Comment on above: Performed By: #### B MP, LIPID, ALT, URIC #### [facility] [address] [place] [address] Dr. Jorge L Carey Eosinophils/100 WBC (Bld) 0.9 % Normal 0.9-7.0 [facility] Comment on above: Performed By: #### B MP, LIPID, ALT, URIC #### [facility] [address] [place] [address] Dr. Jorge L Carey Erythrocyte distribution width (RBC) [Ratio] 11.7 % Normal 11.0-15.0 [facility] Comment on above: Performed By: #### B MP, LIPID, ALT, URIC #### [facility] [address] [place] [address] Dr. Jorge L Carey Hematocrit (Bld) [Volume fraction] 41.1 % Critically low 42.0-54.0 [facility] Comment on above: Performed By: #### B MP, LIPID, ALT, URIC #### [facility] [address] [place] [address] Dr. Jorge L Carey Hemoglobin (Bld) [Mass/Vol] 14.5 g/dL Normal 14.0-18.0 [facility] Comment on above: Performed By: #### B MP, LIPID, ALT, URIC #### [facility] [address] [place] [address] Dr. Jorge L Carey IG # 0.02 10e3/ul Normal 0.00-0.03 [facility] Comment on above: Performed By: #### B MP, LIPID, ALT, URIC #### [facility] [address] [place] [address] Dr. Jorge L Carey IG % 0.3 % Normal 0.0-0.5 [facility] Comment on above: Performed By: #### B MP, LIPID, ALT, URIC #### [facility] [address] [place] [address] Dr. Jorge L Carey LYMPH # 1.1 103/ul Critically low 1.2-3.8 [facility] Comment on above: Performed By: #### B MP, LIPID, ALT, URIC #### [facility] [address] [place] [address] Dr. Jorge L Carey Lymphocytes/100 WBC (Bld) 16.6 % Critically low 20.5-60.0 [facility] Comment on above: Performed By: #### B MP, LIPID, ALT, URIC #### [facility] [address] [place] [address] Dr. Jorge L Carey MANUAL DIFF REQ NO Normal [facility] Comment on above: Performed By: #### B MP, LIPID, ALT, URIC #### [facility] [address] [place] [address] Dr. Jorge L Carey MCH (RBC) [Entitic mass] 30.1 pg Normal 25.9-34.0 [facility] Comment on above: Performed By: #### B MP, LIPID, ALT, URIC #### [facility] [address] [place] [address] Dr. Jorge L Carey MCHC (RBC) [Mass/Vol] 35.3 g/dL Critically high 29.9-35.2 [facility] Comment on above: Performed By: #### B MP, LIPID, ALT, URIC #### [facility] [address] [place] [address] Dr. Jorge L Carey MCV (RBC) [Entitic vol] 85.4 fL Normal 80.0-94.0 [facility] Comment on above: Performed By: #### B MP, LIPID, ALT, URIC #### [facility] [address] [place] [address] Dr. Jorge L Carey MONO # 0.4 103/ul Normal 0.3-0.8 [facility] Comment on above: Performed By: #### B MP, LIPID, ALT, URIC #### [facility] [address] [place] [address] Dr. Jorge L Carey Monocytes/100 WBC (Bld) 5.1 % Normal 1.7-12.0 [facility] Comment on above: Performed By: #### B MP, LIPID, ALT, URIC #### [facility] [address] [place] [address] Dr. Jorge L Carey NEUT # 5.3 103/ul Normal 1.4-6.5 [facility] Comment on above: Performed By: #### B MP, LIPID, ALT, URIC #### [facility] [address] [place] [address] Dr. Jorge L Carey Neutrophils/100 WBC (Bld) 76.8 % Critically high 43.0-75.0 [facility] Comment on above: Performed By: #### B MP, LIPID, ALT, URIC #### [facility] [address] [place] [address] Dr. Jorge L Carey Platelet mean volume (Bld) [Entitic vol] 12.1 fL Normal 9.5-13.5 [facility] Comment on above: Performed By: #### B MP, LIPID, ALT, URIC #### [facility] [address] [place] [address] Dr. Jorge L Carey PLT 147 103/ul Critically low 150-450 [facility] Comment on above: Performed By: #### B MP, LIPID, ALT, URIC #### [facility] [address] [address] [address] Jorge L Carey RBC 4.81 106/ul Normal 4.70-6.10 [facility] Comment on above: Performed By: #### B MP, LIPID, ALT, URIC #### [facility] [address] [address] [address] Jorge L Carey WBC 6.9 103/ul Normal 4.0-11.0 [facility] Comment on above: Performed By: #### B MP, LIPID, ALT, URIC #### [facility] [address] [address] [address] Jorge L Carey CT HEAD WO [...] [facility] Covid-19 PCR (CVDTBH)on 06-17 SARS-CoV-2 (COVID-19) [...] for this test is supported by the [place] of [employer] and Human Service's declaration that [...] VDTBH #### [facility] [address] [place] [address] Dr. Jorge L Carey D-DIMERon 07-01-2022 D-DIMER 0.21 mg/L FEU Normal <=0.59 [facility] Comment on above: Performed By: #### B MP, LIPID, ALT, URIC #### [facility] [address] [address] [address] Jorge L Carey D-DIMER COMMENTS SEE BELOW Normal [facility] Comment on above: Result Comment: Incr [...] #### [facility] [address] [address] [address] Jorge L Carey ER URINE PROFILEon Bilirubin Ql (U) Negative Normal NEGATIVE [facility] Comment on above: Performed By: #### B MP, LIPID, ALT, URIC #### [facility] [address] [place] [address] Dr. Jorge L Carey Clarity (U) CLEAR Normal CLEAR [facility] Comment on above: Performed By: #### B MP, LIPID, ALT, URIC #### [facility] [address] [place] [address] Dr. Jorge L Carey Color (U) LT. YELLOW Normal YELLOW [facility] Comment on above: Performed By: #### B MP, LIPID, ALT, URIC #### [facility] [address] [place] [address] Dr. Jorge L Carey ERUAHJacy A micrscopic examination will be performed if indicated. Normal [facility] Comment on above: Performed By: #### B MP, LIPID, ALT, URIC #### [facility] [address] [place] [address] Dr. Jorge L Carey Glucose Ql (U) Negative Normal NEGATIVE [facility] Comment on above: Performed By: #### B MP, LIPID, ALT, URIC #### [facility] [address] [place] [address] Dr. Jorge L Carey Hemoglobin Ql (U) Negative Normal NEGATIVE [facility] Comment on above: Performed By: #### B MP, LIPID, ALT, URIC #### [facility] [address] [place] [address] Dr. Jorge L Carey Ketones Ql (U) Negative Normal NEGATIVE [facility] Comment on above: Performed By: #### B MP, LIPID, ALT, URIC #### [facility] [address] [place] [address] Dr. Jorge L Carey LEUKOCYTES Negative Normal NEGATIVE [facility] Comment on above: Performed By: #### B MP, LIPID, ALT, URIC #### [facility] [address] [place] [address] Dr. Jorge L Carey Nitrite Ql (U) Negative Normal NEGATIVE [facility] Comment on above: Performed By: #### B MP, LIPID, ALT, URIC #### [facility] [facility] [address] [place] [address] Dr. Jorge L Carey pH (U) 6.0 [pH] Normal 5-9 [facility] Comment on above: Performed By: #### B MP, LIPID, ALT, URIC #### [facility] [address] [place] [address] Dr. Jorge L Carey SPEC GRAVITY 1.020 Normal 1.005-<=1.025 [facility] Comment on above: Performed By: #### B MP, LIPID, ALT, URIC #### [facility] [address] [place] [address] Dr. Jorge L Carey UA PROTEIN Negative Normal NEGATIVE/ TRACE [facility] Comment on above: Performed By: #### B MP, LIPID, ALT, URIC #### [facility] [address] [place] [address] Dr. Jorge L Carey UR MICRO IND NOT INDICATED Normal [facility] Comment on above: Performed By: #### B MP, LIPID, ALT, URIC #### [facility] [address] [place] [address] Dr. Jorge L Carey Urobilinogen Qn (U) 1.0 {Ila'U}/dL Normal 0.2 - 1. 0 [facility] Comment on above: Performed By: #### B MP, LIPID, ALT, URIC #### [facility] [address] [place] [address] Dr. Jorge L Carey INFLUENZA A AND B [facility] 07-01 [facility] SEE BELOW Normal [facility] Comment on above: Result Comment: Nega tive for Flu A protein angiten. Infection due to Flu A cannot be ruled out. Flu A angiten in the sample may be below the detection limit of the test. Performed By: #### I NFLUAB #### [facility] [address] [place] [address] Dr. Jorge L Carey INFLUBNEGH SEE BELOW Normal [facility] Comment on above: Result Comment: Nega tive for Flu B protein antigen. Infection due to Flu B cannot be ruled out. Flu B antigen in the sample may be below the detection limit of the test. Performed By: #### I NFLUAB #### [facility] [address] [place], [place] [id number] Dr. Jorge L Carey INFLUENZA A AG Negative Normal NEGATIVE SEE COMMENT [facility] Comment on above: Performed By: #### I NFLUAB #### [facility] [address] [place] [address] Dr. Jorge L Carey INFLUENZA B AG Negative Normal NEGATIVE SEE COMMENT [facility] Comment on above: Performed By: #### I NFLUAB #### [facility] [address] [place] [address] Dr. Jorge L Carey POINT OF CARE GLUCOSEon 06-17 Glucose [Mass/Vol] 130 mg/dL Critically high 74-106 [facility] Comment on above: Performed By: #### B MP, LIPID, ALT, URIC #### [facility] [address] [place] [address] Dr. Jorge L Carey PROF 14(COMP METB)on 023 Albumin [Mass/Vol] 3.7 g/dL Normal 3.4-5.0 [facility] Comment on above: Performed By: #### C IGGY, CMADM #### [facility] [address] [place] [address] Dr. Jorge L Carey Albumin/Globulin [Mass ratio] 1.2 {ratio} Normal [facility] Comment on above: Performed By: #### C IGGY, CMADM #### [facility] [address] [place] [address] Dr. Jorge L Carey ALP [Catalytic activity/Vol] 49 U/L Normal 46-116 [facility] Comment on above: Performed By: #### C IGGY, CMADM #### [facility] [address] [place] [address] Dr. Jorge L Carey ALT [Catalytic activity/Vol] 30 U/L Normal 16-63 [facility] Comment on above: Performed By: #### C IGGY, CMADM #### [facility] [address] [place] [address] Dr. Jorge L Carey Anion gap [Moles/Vol] 12.7 mmol/L Normal [facility] Comment on above: Performed By: #### C IGGY, CMADM #### [facility] [address] [address] [address] Jorge L Carey AST [Catalytic activity/Vol] 21 U/L Normal 15-37 [facility] Comment on above: Performed By: #### C IGGY, CMADM #### [facility] [address] [address] [address] Jorge L Carey Bilirubin [Mass/Vol] 0.5 mg/dL Normal 0.2-1.0 [facility] Comment on above: Performed By: #### C IGGY, CMADM #### [facility] [address] [address] [address] Jorge L Carey Calcium [Mass/Vol] 8.9 mg/dL Normal 8.5-10.1 [facility] Comment on above: Performed By: #### C IGGY, CMADM #### [facility] [address] [place] [address] Dr. Jorge L Carey Chloride [Moles/Vol] 100 mmol/L Normal 98-107 [facility] Comment on above: Performed By: #### C IGGY, CMADM #### [facility] [address] [address] [address] Jorge L Carey CO2 [Moles/Vol] 29.0 mmol/L Normal 21.0-32.0 [facility] Comment on above: Performed By: #### C IGYG, CMADM #### [facility] [address] [place] [address] Dr. Jorge L Carey Creatinine [Mass/Vol] 1.04 mg/dL Normal 0.70-1.30 [facility] Comment on above: Performed By: #### C IGGY, CMADM #### [facility] [address] [address] [address] Jorge L Carey EGFR-AF BENINESE >60 Normal >=60 [facility] Comment on above: Performed By: #### C IGGY, CMADM #### [facility] [address] [address] [address] Jorge L Carey EGFR-NON AF BENINESE >60 Normal >=60 [facility] Comment on above: Performed By: #### C IGGY, CMADM #### [facility] [address] [address] [address] Jorge L Carey Globulin (S) [Mass/Vol] 3.1 g/dL Normal [facility] Comment on above: Performed By: #### C IGGY, CMADM #### [facility] [address] [address] [address] Jorge L Carey Glucose [Mass/Vol] 140 mg/dL Critically high 74-106 [facility] Comment on above: Performed By: #### C IGGY, CMADM #### [facility] [address] [place] [address] Dr. Jorge L Carey Potassium [Moles/Vol] 3.7 mmol/L Normal 3.5-5.1 [facility] Comment on above: Performed By: #### C IGGY, CMADM #### [facility] [address] [place] [address] Dr. Jorge L Carey Protein [Mass/Vol] 6.8 g/dL Normal 6.4-8.2 [facility] Comment on above: Performed By: #### C IGGY, CMADM #### [facility] [address] [place] [address] Dr. Jorge L Carey Sodium [Moles/Vol] 138 mmol/L Normal 136-145 [facility] Comment on above: Performed By: #### C IGGY, CMADM #### [facility] [address] [place] [address] Dr. Jorge L Carey Urea nitrogen [Mass/Vol] 13.0 mg/dL Normal 7.0-18.0 [facility] Comment on above: Performed By: #### C IGGY, CMADM #### [facility] [address] [place] [address] Dr. Jorge L Carey Urea nitrogen/Creatinine [Mass ratio] 12.5 mg/mg Normal [facility] Comment on above: Performed By: #### C IGGY, CMADM #### [facility] [address] [place] [address] Dr. Jorge L Carey TROPONIN, HIGH SENSITIVITYon 07-01-2022 HSTROP 10.9 pg/mL Normal 4.0-76.1 [facility] Comment on above: Result Comment: CUT- OFF POINTS HAVE BEEN ESTABLISHED BASED ON THE FOURTH UNIVERSAL DEFINITIONS OF MYOCARDIAL INFARCTION. THE UPPER REFERENCE LIMIT (URL) OF TROPONIN, DEFINED THE 99TH PERCENTILE OF cTnI DISTRIBUTION IN A REFERENCE POPULATION, HAS BEEN CONFIRMED THE DECISION THRESHOLD FOR [place] DIAGNOSIS. Performed By: #### B MP, LIPID, ALT, URIC #### [facility] [address] [place] [address] Dr. Jorge L Carey XR CHEST 1 [...] 04-18-2022 BASO # 0.0 103/ul Normal 0.0-0.1 [facility] Comment on above: Performed By: #### C BC #### [facility] [address] [place] [address] Dr. Jorge L Carey Basophils/100 WBC (Bld) 0.7 % Normal 0.2-2.0 [facility] Comment on above: Performed By: #### C BC #### [facility] [address] [place] [address] Dr. Jorge L Carey EO # 0.2 103/ul Normal 0.0-0.7 [facility] Comment on above: Performed By: #### C BC #### [facility] [address] [place] [address] Dr. Jorge L Carey Eosinophils/100 WBC (Bld) 2.6 % Normal 0.9-7.0 [facility] Comment on above: Performed By: #### C BC #### [facility] [address] [place] [address] Dr. Jorge L Carey Erythrocyte distribution width (RBC) [Ratio] 11.5 % Normal 11.0-15.0 [facility] Comment on above: Performed By: #### C BC #### [facility] [address] [place] [address] Dr. Jorge L Carey Hematocrit (Bld) [Volume fraction] 44.7 % Normal 42.0-54.0 [facility] Comment on above: Performed By: #### C BC #### [facility] [address] [place] [address] Dr. Jorge L Carey Hemoglobin (Bld) [Mass/Vol] 15.5 g/dL Normal 14.0-18.0 [facility] Comment on above: Performed By: #### C BC #### [facility] [address] [place] [address] Dr. Jorge L Carey IG # 0.01 10e3/ul Normal 0.00-0.03 [facility] Comment on above: Performed By: #### C BC #### [facility] [address] [place] [address] Dr. Jorge L Carey IG % 0.2 % Normal 0.0-0.5 [facility] Comment on above: Performed By: #### C BC #### [facility] [address] [place] [address] Dr. Jorge L Carey LYMPH # 1.3 103/ul Normal 1.2-3.8 [facility] Comment on above: Performed By: #### C BC #### [facility] [address] [place] [address] Dr. Jorge L Carey Lymphocytes/100 WBC (Bld) 21.3 % Normal 20.5-60.0 [facility] Comment on above: Performed By: #### C BC #### [facility] [address] [place] [address] Dr. Jorge L Carey MANUAL DIFF REQ NO Normal [facility] Comment on above: Performed By: #### C BC #### [facility] [address] [place] [address] Dr. Jorge L Carey MCH (RBC) [Entitic mass] 30.1 pg Normal 25.9-34.0 [facility] Comment on above: Performed By: #### C BC #### [facility] [address] [place] [address] Dr. Jorge L Carey MCHC (RBC) [Mass/Vol] 34.7 g/dL Normal 29.9-35.2 [facility] Comment on above: Performed By: #### C BC #### [facility] [address] [address] [address] Jorge L Carey MCV (RBC) [Entitic vol] 86.8 fL Normal 80.0-94.0 [facility] Comment on above: Performed By: #### C BC #### [facility] [address] [place] [address] Dr. Jorge L Carey MONO # 0.4 103/ul Normal 0.3-0.8 [facility] Comment on above: Performed By: #### C BC #### [facility] [address] [place] [address] Dr. Jorge L Carey Monocytes/100 WBC (Bld) 7.2 % Normal 1.7-12.0 [facility] Comment on above: Performed By: #### C BC #### [facility] [address] [place] [address] Dr. Jorge L Carey NEUT # 4.1 103/ul Normal 1.4-6.5 [facility] Comment on above: Performed By: #### C BC #### [facility] [address] [place] [address] Dr. Jorge L Carey Neutrophils/100 WBC (Bld) 68.0 % Normal 43.0-75.0 [facility] Comment on above: Performed By: #### C BC #### [facility] [address] [place] [address] Dr. Jorge L Carey Platelet mean volume (Bld) [Entitic vol] 12.0 fL Normal 9.5-13.5 [facility] Comment on above: Performed By: #### C BC #### [facility] [address] [place] [address] Dr. Jorge L Carey PLT 163 103/ul Normal 150-450 [facility] Comment on above: Performed By: #### C BC #### [facility] [address] [place] [address] Dr. Jorge L Carey RBC 5.15 106/ul Normal 4.70-6.10 [facility] Comment on above: Performed By: #### C BC #### [facility] [address] [place] [address] Dr. Jorge L Carey WBC 6.1 103/ul Normal 4.0-11.0 [facility] Comment on above: Performed By: #### C BC #### [facility] [address] [place] [address] Dr. Jorge L Carey GLYCOHEMOGLOBIN A1Con 2021 ADA RECOMMENDATION SEE BELOW Normal [facility] Comment on above: Result Comment: ADA RECOMMENDED LIMIT 4.0 - 6.0 ADA THERAPEUTIC TARGET < 7.0 ACTION SUGGESTED > 7.0 Performed By: #### B MP, LIPID, ALT, URIC #### [facility] [address] [place] [address] Dr. Jorge L Carey Glucose [Mass/Vol] 146 mg/dL Normal [facility] Comment on above: Performed By: #### B MP, LIPID, ALT, URIC #### [facility] [address] [place] [address] Dr. Jorge L Carey HbA1c (Bld) [Mass fraction] 6.7 % Critically high 4.5-6.2 [facility] Comment on above: Performed By: #### B MP, LIPID, ALT, URIC #### [facility] [address] [place] [address] Dr. Jorge L Carey LIPID PROFILEon 04-18-2022 CHOL-HDL RATIO NORM SEE BELOW Normal [facility] Comment on above: Result Comment: 3.3 - 4.4 LOW RISK 4.4 - 7.1 AVERAGE RISK 7.1 - 11.0 MODERATE RISK >11.0 HIGH RISK Performed By: #### B MP, LIPID, ALT, URIC #### [facility] [address] [place] [address] Dr. Jorge L Carey Cholesterol [Mass/Vol] 117 mg/dL Normal <=200 [facility] Comment on above: Performed By: #### B MP, LIPID, ALT, URIC #### [facility] [address] [place], [place] [id number] Dr. Jorge L Carey Cholesterol in HDL [Mass/Vol] 48 mg/dL Normal 40-60 [facility] Comment on above: Performed By: #### B MP, LIPID, ALT, URIC #### [facility] [address] [place] [address] Dr. Jorge L Carey Cholesterol in LDL [Mass/Vol] 50.6 mg/dL Normal [facility] Comment on above: Performed By: #### B MP, LIPID, ALT, URIC #### [facility] [address] [place] [address] Dr. Jorge L Carey Cholesterol.total/Cho lesterol in HDL [Mass ratio] 2.4 {ratio} Normal [facility] Comment on above: Performed By: #### B MP, LIPID, ALT, URIC #### [facility] [address] [place] [address] Dr. Jorge L Carey HDL NORMAL > or = 60 mg/dl - LOW CARDIOVASCULAR RISK <40 mg/dl - HIGH CARDIOVASCULAR RISK Normal [facility] Comment on above: Performed By: #### B MP, LIPID, ALT, URIC #### [facility] [address] [place] [address] Dr. Jorge L Carey LDL CALC NORMAL SEE BELOW Normal [facility] Comment on above: Result Comment: <100 mg/dl OPTIMAL 100 - 129 mg/dl NEAR OR ABOVE OPTIMAL 130 - 159 mg/dl BORDERLINE HIGH 160 - 189 mg/dl HIGH >190 mg/dl VERY HIGH Performed By: #### B MP, LIPID, ALT, URIC #### [facility] [address] [place] [address] Dr. Jorge L Carey Triglyceride [Mass/Vol] 92 mg/dL Normal <=150 [facility] Comment on above: Performed By: #### B MP, LIPID, ALT, URIC #### [facility] [address] [place] [address] Dr. Jorge L Carey VLDL CALC 18.4 mg/dL Normal [facility] Comment on above: Performed By: #### B MP, LIPID, ALT, URIC #### [facility] [address] [place] [address] Dr. Jorge L Carey MICROALBUMIN, RAND URon 11-0 mALB <1.3 Normal <=30.0 [facility] Comment on above: Performed By: #### M ALBR #### [facility] [address] [place] [address] Dr. Jorge L Carey PROF CHEM 8 (BAS METB)on Anion gap [Moles/Vol] 9.5 mmol/L Normal [facility] Comment on above: Performed By: #### B MP, LIPID, ALT, URIC #### [facility] [address] [place] [address] Dr. Jorge L Carey Calcium [Mass/Vol] 8.6 mg/dL Normal 8.5-10.1 [facility] Comment on above: Performed By: #### B MP, LIPID, ALT, URIC #### [facility] [address] [place] [address] Dr. Jorge L Carey Chloride [Moles/Vol] 102 mmol/L Normal 98-107 [facility] Comment on above: Performed By: #### B MP, LIPID, ALT, URIC #### [facility] [address] [place] [address] Dr. Jorge L Carey CO2 [Moles/Vol] 30.8 mmol/L Normal 21.0-32.0 [facility] Comment on above: Performed By: #### B MP, LIPID, ALT, URIC #### [facility] [address] [place] [address] Dr. Jorge L Carey Creatinine [Mass/Vol] 0.95 mg/dL Normal 0.70-1.30 [facility] Comment on above: Performed By: #### B MP, LIPID, ALT, URIC #### [facility] [address] [place] [address] Dr. Jorge L Carey EGFR-AF BENINESE >60 Normal >=60 [facility] Comment on above: Performed By: #### B MP, LIPID, ALT, URIC #### [facility] [address] [place] [address] Dr. Jorge L Carey EGFR-NON AF BENINESE >60 Normal >=60 [facility] Comment on above: Performed By: #### B MP, LIPID, ALT, URIC #### [facility] [address] [place] [address] Dr. Jorge L Carey Glucose [Mass/Vol] 142 mg/dL Critically high 74-106 [facility] Comment on above: Performed By: #### B MP, LIPID, ALT, URIC #### [facility] [address] [place] [address] Dr. Jorge L Carey Potassium [Moles/Vol] 4.3 mmol/L Normal 3.5-5.1 [facility] Comment on above: Performed By: #### B MP, LIPID, ALT, URIC #### [facility] [address] [place] [address] Dr. Jorge L Carey Sodium [Moles/Vol] 138 mmol/L Normal 136-145 [facility] Comment on above: Performed By: #### B MP, LIPID, ALT, URIC #### [facility] [address] [place] [address] Dr. Jorge L Carey Urea nitrogen [Mass/Vol] 14.0 mg/dL Normal 7.0-18.0 [facility] Comment on above: Performed By: #### B MP, LIPID, ALT, URIC #### [facility] [address] [place] [address] Dr. Jorge L Carey Urea nitrogen/Creatinine [Mass ratio] 14.7 mg/mg Normal [facility] Comment on above: Performed By: #### B MP, LIPID, ALT, URIC #### [facility] [address] [place] [address] Dr. Jorge L Carey [facility] 04-18-2022 ALT [Catalytic activity/Vol] 27 U/L Normal 16-63 [facility] Comment on above: Performed By: #### B MP, LIPID, ALT, URIC #### [facility] [address] [place] [address] Dr. Jorge L Carey URIC ACID SERUMon 04-18-2022 Urate [Mass/Vol] 5.5 mg/dL Normal 3.5-7.2 [facility] Comment on above: Performed By: #### B MP, LIPID, ALT, URIC #### [facility] [address] [address] [address] Jorge L Carey GLYCOHEMOGLOBIN A1Con 2021 ADA RECOMMENDATION SEE BELOW Normal [facility] Comment on above: Result Comment: ADA RECOMMENDED LIMIT 4.0 - 6.0 ADA THERAPEUTIC TARGET < 7.0 ACTION SUGGESTED > 7.0 Performed By: #### B MP, LIPID, ALT, URIC #### [facility] [address] [address] [address] Jorge L Carey Glucose [Mass/Vol] 160 mg/dL Normal [facility] Comment on above: Performed By: #### B MP, LIPID, ALT, URIC #### [facility] [address] [address] [address] Jorge L Carey HbA1c (Bld) [Mass fraction] 7.2 % Critically high 4.5-6.2 [facility] Comment on above: Performed By: #### B MP, LIPID, ALT, URIC #### [facility] [address] [address] [address] Jorge L Carey GLYCOHEMOGLOBIN A1Con 2021 ADA RECOMMENDATION ADA THERAPEUTIC TARGET 6.0 - 7.0 ACTION SUGGESTED > 7.0 Normal [facility] Comment on above: Performed By: #### B MP, LIPID, ALT, URIC #### [facility] [address] [address] [address] Jorge L Carey Glucose [Mass/Vol] 177 mg/dL Normal [facility] Comment on above: Performed By: #### B MP, LIPID, ALT, URIC #### [facility] [address] [address] [address] Jorge L Carey HbA1c (Bld) [Mass fraction] 7.8 % Critically high <=6.0 [facility] Comment on above: Performed By: #### B MP, LIPID, ALT, URIC #### [facility] [address] [address] [address] Jorge L Carey [facility] 09-17-2020 Glucose [Mass/Vol] 151 mg/dL Normal [facility] Comment on above: Result Comment: PERF ORMED BY: [facility] [address] [place] [address] PATHOLOGIST [employer] SUSAN SEXTON M.D. Performed By: #### O UTRGIANNI GLYCO #### [facility] [address] [id number] [facility] HbA1c (Bld) [Mass fraction] 6.9 % High 4.3-5.6 [facility] Comment on above: Result Comment: Incr eased risk for diabetes: 5.7 - 6.4 diabetes: >6.4 glycemic control for adults with diabetes: <7.0 Performed By: #### O MOE GLYCO #### [facility] [address] Vital Signs Date Time Vital Sign Value Performing Clinician Facility 10-07-2024 11:25-0400 Body height 190.5 cm [facility] 10-07-2024 11:25-0400 Body mass index (BMI) [Ratio] 33.1 kg/m2 [facility] 10-07-2024 11:25-0400 Body weight 120.25 kg [facility] 10-07-2024 11:25-0400 Diastolic blood pressure 82 mm[Hg] [facility] 10-07-2024 11:25-0400 Heart rate 92 /min [facility] 10-07-2024 11:25-0400 Respiratory rate 12 /min [facility] 10-07-2024 11:25-0400 Systolic blood pressure 124 mm[Hg] [facility] 02-18-2024 09:37-0400 Body height 190.5 cm [facility] 02-18-2024 09:37-0400 Body mass index (BMI) [Ratio] 32.1 kg/m2 [facility] 02-18-2024 09:37-0400 Body weight 116.74 kg [facility] 02-18-2024 09:37-0400 Diastolic blood pressure 81 mm[Hg] [facility] 02-18-2024 09:37-0400 Heart rate 76 /min [facility] 02-18-2024 09:37-0400 Respiratory rate 12 /min [facility] 02-18-2024 09:37-0400 Systolic blood pressure 136 mm[Hg] [facility] 10-18-2023 09:06-0400 Body height 190.5 cm [facility] 10-18-2023 09:06-0400 Body mass index (BMI) [Ratio] 31.8 kg/m2 [facility] 10-18-2023 09:06-0400 Body weight 115.32 kg [facility] 10-18-2023 09:06-0400 Diastolic blood pressure 77 mm[Hg] [facility] 10-18-2023 09:06-0400 Heart rate 80 /min [facility] 10-18-2023 09:06-0400 Respiratory rate 12 /min [facility] 10-18-2023 09:06-0400 Systolic blood pressure 116 mm[Hg] [facility] 07-08-2023 09:00-0500 Body height 190.5 cm Bogdan Ball Other [facility] [employer] Other 07-08-2023 09:00-0500 Body mass index (BMI) [Ratio] 32.62 kg/m2 Bogdan Ball Other [facility] [employer] Other 07-08-2023 09:00-0500 Body weight 118.39 kg Bogdan Ball Other [employer] [facility] [employer] Other 07-08-2023 09:00-0500 Diastolic blood pressure 81 mm[Hg] [facility] [employer] Other 07-08-2023 09:00-0500 Respiratory rate 12 /min Bogdan Ball Other [facility] [employer] Other 07-08-2023 09:00-0500 Systolic blood pressure 117 mm[Hg] Bogdan Ball Other [facility] [employer] Other 05-01-2023 08:30-0500 Body height 190.5 cm Bogdan Ball Other [facility] Other 05-01-2023 08:30-0500 Body mass index (BMI) [Ratio] 32.19 kg/m2 Bogdan Ball Other [facility] Other 05-01-2023 08:30-0500 Body weight 116.85 kg Bogdan Ball Other [facility] Other 05-01-2023 08:30-0500 Diastolic blood pressure 81 mm[Hg] Bogdan Ball Other [facility] Other 05-01-2023 08:30-0500 Respiratory rate 12 /min Bogdan Ball Other [facility] Other 05-01-2023 08:30-0500 Systolic blood pressure 135 mm[Hg] Bogdan Ball Other [facility] Other 12-26-2022 08:30-0400 Body height 190.5 cm Bogdan Ball Other [facility] Other 12-26-2022 08:30-0400 Body mass index (BMI) [Ratio] 31.54 kg/m2 Bogdan Ball Other [facility] Other 12-26-2022 08:30-0400 Body weight 114.49 kg Bogdan Ball Other [facility] Other 12-26-2022 08:30-0400 Diastolic blood pressure 85 mm[Hg] Bogdan Ball Other [facility] Other 12-26-2022 08:30-0400 Respiratory rate 12 /min Bogdan Ball Other [facility] Other 12-26-2022 08:30-0400 Systolic blood pressure 139 mm[Hg] Bogdan Ball Other [facility] [employer] Other 11-09-2022 10:58-0400 Blood Pressure Location Hola GARCIA [facility] 11-09-2022 10:58-0400 Diastolic blood pressure 80 mm[Hg] Hola GARCIA [facility] 11-09-2022 10:58-0400 Heart rate 78 /min Hola GARCIA [facility] 11-09-2022 10:58-0400 Respiratory rate 16 /min Hola GARCIA [facility] 11-09-2022 10:58-0400 Systolic blood pressure 130 mm[Hg] Hola GARCIA [facility] 10-05-2022 12:15-0400 Body height 190.5 cm Bogdan Ball Other [facility] [employer] Other 10-05-2022 12:15-0400 Body mass index (BMI) [Ratio] 31.17 kg/m2 Bogdan Ball Other [facility] [employer] Other 10-05-2022 12:15-0400 Body weight 113.13 kg Bogdan Ball Other [employer] [facility] [employer] Other 10-05-2022 12:15-0400 Diastolic blood pressure 95 mm[Hg] Bogdan Ball Other [employer] [facility] [employer] Other 10-05-2022 12:15-0400 Respiratory rate 12 /min Bogdan Ball Other [employer] [facility] [employer] Other 10-05-2022 12:15-0400 Systolic blood pressure 168 mm[Hg] Bogdan Ball Other [facility] Other 08-23-2022 08:30-0500 Body height 190.5 cm Bogdan Ball Other [facility] Other 08-23-2022 08:30-0500 Body mass index (BMI) [Ratio] 31.42 kg/m2 Bogdan Ball Other [facility] Other 08-23-2022 08:30-0500 Body weight 114.04 kg Bogdan Ball Other [facility] Other 08-23-2022 08:30-0500 Diastolic blood pressure 86 mm[Hg] Bogdan Ball Other [facility] Other 08-23-2022 08:30-0500 Respiratory rate 12 /min Bogdan Ball Other [facility] Other 08-23-2022 08:30-0500 Systolic blood pressure 132 mm[Hg] Bogdan Ball Other [facility] Other 10-06-2021 08:14-0400 Blood Pressure Location Hola GARCIA [facility] 10-06-2021 08:14-0400 Diastolic blood pressure 98 mm[Hg] Hola GARCIA [facility] 10-06-2021 08:14-0400 Heart rate 78 /min Hola GARCIA [facility] 10-06-2021 08:14-0400 Systolic blood pressure 145 mm[Hg] Hola GARCIA [facility] Encounters Encounter Date Encounter Type Care Provider Facility Start: 10-07-2024 End: 10-07-2024 ambulatory [facility] Work Phone: Start: 10-07-2024 End: 10-07-2024 Patient encounter procedure [facility] Work Phone: Start: 10-05-2024 Non-patient / Non-visit [facility] Work Phone: Start: 08-21-2024 End: 08-21-2024 ambulatory Dm Cyr MD Facility:[facility] Start: 06-01-2024 End: 06-01-2024 ambulatory Dm Cyr MD Facility:[facility] Start: 05-14-2024 Patient encounter procedure [facility] Start: 05-04-2024 End: 05-04-2024 ambulatory Dm Cyr MD Facility:[facility] Start: 04-20-2024 End: 04-20-2024 ambulatory Dm Cyr MD Facility:[facility] Start: 04-03-2024 ambulatory Hola GARCIA Facili ty:[facility] Start: 02-18-2024 End: 02-18-2024 ambulatory [facility] Work Phone: Start: 02-18-2024 End: 02-18-2024 Patient encounter procedure [facility] Work Phone: Start: 02-11-2024 Non-patient / Non-visit [facility] Work Phone: Start: 10-18-2023 End: 10-18-2023 ambulatory [facility] Work Phone: Start: 10-18-2023 End: 10-18-2023 Patient encounter procedure [facility] Work Phone: Start: 10-12-2023 Non-patient / Non-visit [facility] Work Phone: Start: 08-23-2023 Non-patient / Non-visit [facility] Work Phone: Start: 08-16-2023 Non-patient / Non-visit [facility] Work Phone: Start: 07-30-2023 Non-patient / Non-visit [facility] Work Phone: Start: 07-29-2023 End: 07-29-2023 ambulatory Bogdan Ball Other [facility] Other Start: 07-29-2023 Telephone encounter Bogdan Ball [facility] Start: 07-08-2023 End: 07-08-2023 ambulatory Bogdan Ball Other [facility] Other Start: 07-08-2023 Office outpatient vi sit 25 minutes Bogdan Ball [facility] Start: 05-10-2023 End: 05-10-2023 ambulatory Bogdan Ball Other [facility] Other Start: 05-10-2023 Office outpatient vi sit 15 minutes Bogdan Ball [facility] Start: 05-01-2023 End: 05-01-2023 ambulatory Bogdan Ball Other [facility] Other Start: 05-01-2023 Patient encounter procedure Bogdan Ball [facility] Start: 04-24-2023 End: 04-24-2023 ambulatory Bogdan Ball Other [facility] Other Start: 04-24-2023 Telephone encounter Bogdan Ball [facility] Start: 02-25-2023 End: 02-25-2023 ambulatory Bogdan Ball Other [facility] Other Start: 02-25-2023 Telephone encounter Bogdan Ball [facility] Start: 12-27-2022 End: 12-27-2022 ambulatory Bogdan Ball Other [facility] Other Start: 12-27-2022 Telephone encounter Bogdan Ball [facility] Start: 12-26-2022 End: 12-26-2022 ambulatory Bogdan Ball Other [facility] Other Start: 12-26-2022 Office outpatient vi sit 25 minutes Bogdan Ball [facility] Start: 11-19-2022 End: 11-19-2022 ambulatory Bogdan Ball Other [facility] Other Start: 11-19-2022 Telephone encounter Bogdan Ball [facility] Start: 11-09-2022 End: 11-09-2022 Patient encounter procedure Hola GARCIA [facility] Start: 10-22-2022 End: 10-22-2022 ambulatory Bogdan Ball Other [facility] Other Start: 10-22-2022 Telephone encounter Bogdan Ball [facility] Start: 10-18-2022 End: 10-18-2022 ambulatory Bogdan Ball Other [facility] Other Start: 10-18-2022 Telephone encounter Bogdan Ball [facility] Start: 10-05-2022 End: 10-05-2022 ambulatory Bogdan Ball Other [facility] Other Start: 10-05-2022 Office outpatient vi sit 15 minutes Bogdan Ball [facility] Start: 09-27-2022 End: 09-27-2022 ambulatory Bogdan Ball Other [facility] Other Start: 09-27-2022 Telephone encounter Bogdan Ball [facility] Start: 09-25-2022 End: 09-25-2022 ambulatory Bogdan Green Other [facility] Other Start: 09-25-2022 Telephone encounter Bogdan Peter [facility] Start: 09-21-2022 End: 09-21-2022 ambulatory Bogdan Green Other [facility] Other Start: 09-21-2022 Telephone encounter Bogdan Peter [facility] Start: 08-23-2022 End: 08-23-2022 ambulatory Bogdan Green Other [facility] Other Start: 08-23-2022 Office outpatient vi sit 25 minutes Bogdan Green [facility] Start: 08-17-2022 End: 08-18-[address] BOGDAN GREEN Facility:[facility] Start: 08-14-2022 End: 08-14-2022 ambulatory Bogdan Green Other [facility] Other Start: 08-14-2022 Telephone encounter Bogdan Green [facility] Start: 07-01-2022 End: 07-01-[address] BOGDAN GREEN Facility:[facility] Start: 04-25-2022 Adult health examination Bogdan Green Other [facility] Other Start: 04-18-2022 End: 04-19-[address] BOGDAN GREEN Facility:[facility] Start: 01-20-2022 End: 01-21-2022 ambulatory NONE LISTED REQUEST Facility:[facility] Start: 10-06-2021 End: 10-06-2021 Patient encounter procedure Hola GARCIA [facility] Start: 09-16-2021 End: 09-17-[address] HOLA GARCIA . Facility:[facility] Start: 09-15-2021 End: 09-16-2021 ambulatory NONE LISTED REQUEST Facility:[facility] Start: 08-29-[address] BOGDAN GREEN Facili ty:[facility] Procedures Date Procedure Procedure Detail Performing Clinician Start: 09-16-[address] NORRIS GREEN Comment on above: Performed By: #### B MP, LIPID, ALT, URIC #### [facility] [address] [address] [address] Jorge L Carey Start: 03-29-2017 General examination of patient Bogdan Green Other Start: 12-20-2015 Cystoscopy Hola GENO FAITH Start: 12-15-2013 Hyperlipidemia screening Bogdan Green Other Start: 12-15-2013 Screening for malign ant neoplasm of prostate Bogdan Peter Other Colonoscopy Hola GARCIA Depression screening Dwight Green Other History of hernia repair Maureen GARCIA Perirectal abscess (disorder) Hola GARCIA Screening for malign ant neoplasm of colon Bogdan Green Other Plan of Treatment Date Care Activity Detail Author US Heart Transthoracic [facility] XR Chest 2 Views [facility] Immunizations Immunization Date Immunization Notes Care Provider Cinthia bartlett 04-29-2023 zoster vaccine recombinant Bogdan Green Other [facility] 04-26-2023 influenza virus vaccine, unspecified formulation [facility] 04-26-2023 influenza, high dose seasonal, preservative-free Bogdan Green Other [facility] Other 02-26-2023 zoster vaccine recombinant Bogdan Peter Other [facility] 04-25-2022 pneumococcal 20-alber nt conjugate vaccine Hola GARCIA [facility] 04-16-2022 influenza virus vaccine, split virus (incl. purified surface antigen) Bogdan Green Other [facility] 04-16-2022 influenza virus vaccine, unspecified formulation Hola GARCIA [facility] 03-23-2022 SARS-CoV-2 (COVID-19 ) [id number] Hola GARCIA [facility] 05-08-2021 SARS-CoV-2 (COVID-19 ) mRNA BNT-162b2 vax Hola GARCIA [facility] 04-22-2021 influenza virus vaccine, split virus (incl. purified surface antigen) Bogdan Green Other [facility] Other 04-22-2021 influenza virus vaccine, unspecified formulation Hola GARCIA [facility] 03-30-2021 influenza virus vaccine, unspecified formulation Hola GARCIA [facility] 09-16-2020 COVID-19, mRNA, LNP- S, PF, 30 mcg/0.3 mL dose; Translations: [Pfizer-BioNTech COVID-19 Vaccine] Hola GARCIA [facility] Comment on above: Reason for Medicatio n: Prophylaxis 08-26-2020 COVID-19, mRNA, LNP- S, PF, 30 mcg/0.3 mL dose; Translations: [Pfizer-BioNTech COVID-19 Vaccine] Hola GARCIA [facility] Comment on above: Reason for Medicatio n: Prophylaxis 04-16-2020 influenza virus vaccine, split virus (incl. purified surface antigen) Bogdan Green Other [facility] Other 04-16-2020 influenza virus vaccine, unspecified formulation Hola GARCIA [facility] pneumococcal Conjuga te, unspecified formulation; Translations: [Need for prophylactic vaccination against Streptococcus pneumoniae (pneumococcus)] Bogdan Peter Other [facility] Other Payers Date Payer Category Payer Medicare 2022 Unknown 2021 Medicare [id number] 2020 Unknown [id number] 1959 Medicare [id number] 1959 Self-pay [id number] 1959 Unknown [id number] 1959 Unknown [id number] 1956 Unknown [id number] 2.16.84 [id number] 1956 Unknown [id number] 2.16.84 [id number] 1956 Unknown [id number] 2.16.84 [id number] 1956 Unknown [id number] 2.16.84 [id number] 1956 Unknown [id number] 2.16.84 [id number] 1956 Unknown [id number] 2.16.8 [id number] 1956 Unknown [id number] 2.16. [id number] 1956 Unknown [id number] 2.16. [id number] 1956 Unknown [id number] 2.16. [id number] 1956 Unknown [id number] 2.16. [id number] Blue Cross [facility] [id number] Self-pay Self Pay [id number] Unknown [id number] 2.16.84 [id number] Unknown [id number] 2.16.84 [id number] Social History Date Type Detail Facility Start: 10-06-2021 End: 07-27-2023 Tobacco smoking status Never smoked tobacco (finding) [facility] Sex Assigned At Male [facility] Tobacco smoking status Never [facility] Start: 1955 Sex Assigned At Male [facility] Start: 10-07-2024 Sex Male (finding) [facility] Medical Equipment Procedure Code Equipment Code Equipment [...] x 5/32 needle Start: 10-29-2023 End: 10-29-2023 Blood Sugar Diagnostic (Onetouch Ultra Test) strip Start: 08-26-2024 Pen Needle, Diab etic (Bd Isa 2nd Gen Pen Needle) 32 gauge x 5/32 needle Start: 10-29-2023 Blood Sugar Diagnostic (Onetouch Ultra Test) strip Start: 08-16-2023 End: 08-26-2024 Blood Sugar Diagnostic strip Start: 08-16-2023 End: 03-01-2024 Pen Needle, Diab etic (Bd Isa 2nd Gen Pen Needle) 32 gauge x 5/32 needle Start: 10-29-2023 End: 10-29-2023 Functional Status Date Assessment Result Facility 11-09-2022 Functional Status N/A [facility] Clinical Notes 10-06-2021 to 08-21-2024 Note [...] on his/her behalf by a trained medical records technician. The creation of this document is based on the provider?s statements to the medical records technician. Electronically signed by Dm Cyr MD 08/21/24 11:25 EST Electronically signed by DevonCyn Pauline 08/21/2024 11:18 EST [facility] 08-21-2024 Note History of Present I [...] on his/her behalf by a trained medical records technician. The creation of this document is based on the provider?s statements to the medical records technician. Problem List/Past Medical History Ongoing Acid reflux [...] MD 08/21/24 09:34 EST Electronically signed by Cyn Osorio 08/21/2024 09:29 EST [facility] 07-29-2023 Evaluation note Encounter Date Diagnosis Assessment Notes Jul, Type 2 diabetes mellitus with hyperglycemia , without long-term current use of insulin (ICD-10 - E11.65) [facility] Other 01-22-2024 Evaluation note* Encounter Date Diagnosis [...] index [BMI] 32.0-32.9, adult (ICD-10 - Z68.32) [facility] Other 11-24-2023 Evaluation note* Encounter Date Diagnosis [...] Microalbumin, Dilated eye exam and Foot exam [facility] Other 11-15-2023 Evaluation note* Encounter Date Diagnosis [...] flares Sep, Thrombocytopenia, unspecified (ICD-10 - D69.6) [facility] Other 11-15-2023 Evaluation note* Encounter Date Diagnosis [...] flares Sep, Thrombocytopenia, unspecified (ICD-10 - D69.6) [facility] Other 11-08-2023 Evaluation note* Encounter Date Diagnosis Assessment Notes Treatment Notes Treatment Clinical Notes Apr, Screening PSA (prostate specific antigen) (ICD-10 - Z12.5) Apr, Type 2 diabetes mellitus with hyperglycemia, without long-term current use of insulin (ICD-10 - E11.65) Apr, Elevated cholesterol (ICD-10 - E78.00) Apr, Primary hypertension (ICD-10 - I10) Sep, Thrombocytopenia, unspecified (ICD-10 - D69.6) Thrombocytopenia [facility] 07-12-2023 Evaluation note* Encounter Date Diagnosis [...] [BMI] 31.0-31.9, adult (ICD-10 - Z68.31) Dec, intermediate (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 (ICD-10 - Z79.4) [facility] Other 05-26-2023 Hospital Discharge instructions Patient Education [...] treatment? Where to find more information [employer]: www.cancer.org [employer]: www.auanet.org Contact a health care [...] provider. Document Revised: 11/27/2021 Document Reviewed: 11/27/2021 [employer] Patient Education 2022 [employer]. Follow Up Care 10/06/2021 08:40:21 With:JOSE MCMANUS, Hola Rushing, URL Address: [facility] [address] , [place] [address]- When: Unknown [facility] 05-08-2023 Evaluation note* Encounter Date Diagnosis Assessment Notes Treatment Notes Treatment Clinical Notes October, Primary hypertension (ICD-10 - I10) [facility] Other 05-04-2023 Evaluation note* Encounter Date Diagnosis Assessment Notes Treatment Notes Treatment Clinical Notes October, Primary hypertension (ICD-10 - I10) [facility] Other 04-21-2023 Evaluation note* Encounter Date Diagnosis Assessment Notes Treatment Notes Treatment Clinical Notes Sep, Primary hypertension (ICD-10 - I10) This patient is instructed to consume a healthy, low-fat, low-salt diet. They are also encouraged to continue exercise to achieve/maintain a normal BMI. Increase Benazepril to 10mg qd. Monitor home BP and update office in week 21 Sep, 2022 Elevated cholesterol (ICD-10 - E78.00) Diet and [...] and Glimepiride appear to be controlling BS. 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.4) [facility] Other 04-11-2023 Evaluation note* Encounter Date Diagnosis Assessment Notes Treatment Notes Treatment Clinical Notes Sep, Type 2 diabetes mellitus with hyperglycemia, without long-term current use of insulin (ICD-10 - E11.65) [facility] Other 04-07-2023 Evaluation note* Encounter Date Diagnosis Assessment Notes Treatment Notes Treatment Clinical Notes Sep, Type 2 diabetes mellitus with hyperglycemia (ICD-10 - E11.65) [facility] Other 03-09-2023 Evaluation note* Encounter Date Diagnosis [...] Reviewed red flag symptoms and nerve impingement [facility] Other 02-28-2023 Evaluation note* Encounter Date Diagnosis Assessment Notes Treatment Notes Treatment Clinical Notes Jul, Type 2 diabetes mellitus with hyperglycemia, without long-term current use of insulin (ICD-10 - E11.65) [facility] Other 04-22-2022 Hospital Discharge instructions Patient Education [...] urethra. Follow these instructions at home: Take gxwv-yhw-msyghxh and prescription medicines only as told by [...] 06/03/2006 Document Revised: 04/28/2019 Document Reviewed: 07/08/2017 [employer] Patient Education 2020 [employer]is. Follow Up Care 10/03/2020 15:00:49 With:Hola GARCIA MD, URL Address: [facility] [address], [place] [address]- [phone] When:10/06/2022 [facility] evaluation + Plan note Future Appointments Appointment Date:10/12/2022 08:00:00 AM Scheduled Provider:Hola GARCIA MD Location:[facility] Appointment Type:URO Office Visit Diagnostic Tests Pending * PSA Total 10/06/21 [facility] evaluation + Plan note Future Appointments Appointment Date:11/18/2023 08:45:00 AM Scheduled Provider:Hola GARCIA MD Location:[facility] Appointment Type:URO Office Visit Diagnostic Tests Pending * PSA Free & Total 11/09/22 [facility] evaluation [employer] Other evaluywnqt noteNo [employer] Other evaluyirbo note* Diagnosis Onset Date Resolution Status Elevated cholesterol acute Gastroesophageal reflux dise ase with esophagitis without hemorrhage acute Obesity acute Primary hypertension acute Spondylosis without myelopat hy or radiculopathy, lumbar region acute Type 2 diabetes mellitus with hyperglycemia acute [facility] Work Phone: Evaluation note* Diagnosis Onset Date Resolution Status Elevated cholesterol acute Gastroesophageal reflux dise ase with esophagitis without hemorrhage acute Primary hypertension acute Spondylosis without myelopat hy or radiculopathy, lumbar region acute Type 2 diabetes mellitus with hyperglycemia acute [facility] Work Phone: Evaluation note* Diagnosis Onset Date Resolution Status Admit Date Dyspnea acute October 07 10:54am Elevated cholesterol acute Apri l 2024 10:54am Gastroesophageal reflux dise ase with esophagitis without hemorrhage acute October 07, 2024 10:54am Primary hypertension acute Apri l 2024 10:54am Spondylosis without myelopat hy or radiculopathy, lumbar region acute October 07, 2024 10:54am Type 2 diabetes mellitus wit h hyperglycemia acute October 07, 2024 10:54am Screening for colon cancer noneactiv e October 07, 2024 10:54am [facility] Work Phone: History general Narrative - Reported* [...] CYSTOSCOPY 2016 Hospitalization History SEE SURGICAL HX [facility] Other [facility] [employer] Other [employer] general Narrative - Reported* Type Description Date [...] CYSTOSCOPY 2016 Hospitalization History SEE SURGICAL HX [facility] Other Hospital course Narrative No data available for this section [facility] progress note No data available for this section [facility] Summary Purpose Family History Relationship Condition [...] well ness visit, initial (Z00.00) Referral Organization [facility] Shiloh jono Referring Provider First Name Bogdan Referring Provider Last Name Peter Referring Provider Specialty Internal Me dicine Referred Organization [facility] Referred Provider Swapnil French Referred Address [address], [place],[address] Referred Provider Specialty Pain Medicin e Referral [...] Notes Include XR lumbar sp ine f: [id number] Chief Complaint and Reason for Visit Chief [...] 2 diabetes mellitus with hyperglycemia Chief Complaint Admit Date 4 month f/u/A1C October 07, 2024 10: 54am Reason for Visit Admit Date Dyspnea October 07, 2024 10: 54am Elevated cholesterol October 07, 2024 10 :54am Gastroesophageal reflux dise ase with esophagitis without hemorrhage October 07, 2024 10:54am Primary hypertension October 07, 2024 10 :54am Spondylosis without myelopat hy or radiculopathy, lumbar region October 07, 2024 10:54am Type 2 diabetes mellitus with hyperglyce karina October 07, 2024 10:54am Screening for colon cancer October 07, 2 025 10:54am Additional Source Comments (unrecognized sect ion and content) No Status Records FoundNo Status Records FoundNo Status Records FoundNo Status Records Found INFORMATION SOURCE (unrecogn ized section and content) DATE CREATED AUTHOR 07/30/2021 [facility] DATE CREATED AUTHOR AUTHOR'S ORGANIZ ATION 08/22/2022 [facility] DATE CREATED AUTHOR AUTHOR'S ORGANIZ ATION 11/14/2023 [facility] DATE CREATED AUTHOR AUTHOR'S ORGANIZ ATION 08/25/2024 [facility] REASON FOR VISIT (unrecogniz ed section and content) BS readingsElevated blood cifuentes [id number] [employer] ResultsBP readingsrefillelevated BPMedication4 MONTH FOLLOW UP [...] February 18, 2024 End: February 18, 2024 Team Status: Active Member Role Status Dates Bogdan Green , DO Primary Care Provide r, Attending Provider Active Start: October 05, 2024 Team Status: Inactive Member Role Status Dates Bogdan Green , DO Primary Care Provide r, Attending Provider Active Start: October 07, 2024 End: October 07, 2024 Goals (unrecognized section and content) Goals [...] THE PRIMARY CLINICAL RECORDS. [facility] [employer] provides no warranty or guarantee of the accuracy or completeness of information in this document.
== END 2025-02-03 06:33 | disposition home or self-care (01) ==
LOC: LAB 06:32
PROVIDERS: PCP Internal Medicine; Visit Provider Internal Medicine
DX: E11.65 Type 2 diabetes mellitus with hyperglycemia (principal); Z79.4 Long term (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
CPT/HCPCS: 83036

== ENCOUNTER 2025-05-12 06:35 | Outpatient (OUT) | payer MEDICARE, BC, SELFPAY ==
--- OUTSIDE RECORDS SUMMARY | 2025-05-04 09:37 | XMS_ITS | Continuity of Care Document ---
Author Organization [facility] Address [address] [place] [address] Phone Care Team Providers Care Tube Coverer Name Role Phone Bogdan Green DO Primary Care Provider Bogdan Green DO Attending Provider Victor Manuel Ohara MD Attending Provider Victor Manuel Ohara MD Other Provider Tali Washburn CMA Attending Provider Unavailabl e Care Teams Patient Care Team Team Status: Active Member Role/Relationship Status Dates Bogdan Green DO Primary Care Provider Active Visit Care Team Team Status: Active Member Role/Relationship Status Dates Bogdan Green DO Primary Care Provider Active Start: February 03, 2025 Le Plascencia ProviderActiveStart: February 03, 2025 Visit Care Team Team Status: Inactive Member Role/Relationship Status Dates Bogdan Green DO Primary Care Provider Active Start: February 09, 2025 End: February 09Le [place] ProviderActiveStart: February 09, 2025 End: February 09, 2025 Visit Care Team Team Status: Active Member Role/Relationship Status Dates Bogdan Green DO Primary Care Provider Active Start: April 26, 2025 Dariel Frank ProviderActiveStart: April 26, 2025 Primitivo Frank ProviderActiveStart: April 26, 2025 Visit Care Team Team Status: Active Member Role/Relationship Status Dates Bogdan Green DO Primary Care Provider Active Start: April 26, 2025 Tali Washburn CMAAttending ProviderActiveStart: April 26, 2025 Patient Care Team Team Status: Active Member Role/Relationship Status Dates Bogdan Green DO Primary Care Provider Active Start: May 04, 2025 Victor Manuel Ohara MDAttending ProviderActiveStart: May 04, 2025 Victor Manuel Ohara MDOther ProviderActiveStart: May 04, 2025 Chief Complaint and Reason for Visit Chief Complaint Admit Date A1C 4 mo f/u February 09, 2025 9: 52am hx of colon polyps April 26, 2025 8:47am Amb Documentation April 26, 2025 12:56pm cancerous polyps May 04, 2025 10:43am Reason for Visit Admit Date Dyspnea February 09, 2025 9: 52am Elevated cholesterol February 09, 2025 9 :52am Gastroesophageal reflux dise ase with esophagitis without hemorrhage February 09, 2025 9:52am Primary hypertension February 09, 2025 9 :52am Spondylosis without myelopat hy or radiculopathy, lumbar region February 09, 2025 9:52am Type 2 diabetes mellitus with hyperglyce karina February 09, 2025 9:52am Screening for colon cancer February 09, 2025 9:52am Allergies, Adverse Reactions, Alerts Allergen Type Severity Reaction Last Updated Verified Status No Known Allergies Allergy Unknown April 27, 2025 1:17pmYesActive Social History Smoking Status Status Start Date End Date Date of Observa tion Never smoked tobacco (finding) April 26, 2025 8:54am Observation Status Observation Response Date of Response Legal Sex [facility] ([facility]) [facility] Family History Relationship Condition Age at Onset Recorded Date/T marbella father Heart disease Unknown HypertensionUnknownDiabetes mellitusUnknownDeceasedUnknownmotherDeceasedUnknown Problems Active Problems Problem Diagnosis/Recorded Date Onset Date Status C omments Medicare annual wellness vis it, subsequent May 14, 2024 8:11am Unknown Active Gastroesophageal reflux disease with esophagitis without hemorrhageFebruary 2023 3:14pmUnknownActiveScreening PSA (prostate specific antigen)May 06, 2024 12:51pmUnknownActivePSA: 0.8 - 11/2023Spondylosis without myelopathy or radiculopathy, lumbar regionFebruary 2023 3:14pmUnknownActiveType 2 diabetes mellitus with hyperglycemiaFebruary 2023 9:16pmUnknownActive Elevated cholesterolFebruary 2023 3:14pmUnknownActiveDyspneaSeptember 2023 9:09amUnknownActiveSerrated polyp of colonNovember 2024 6:12uz7871 Activew/ dysplasiaPrimary hypertensionFebruary 2023 3:14pmUnknownActive Echo: LVEF 55%, normal RV size/function, LVH, ZAYNAB, RVSP 39 - 9/4Chest pain February 27, 2024 2:54pmUnknownActiveObesityMay 2023 8:54amUnknownActive Medications Medication Status Dose Units Route Directions Qty Days Refills S tart Date Stop Date End Date Reason(s) Instructions Adherence Dulaglutide (Trulicity) 0.75 mg/0.5 mL pen injector Discontinued 0.75 MG SUBCUT every week July 30, 2023 11:41amFebruary 2023 11:48amBlood Sugar Diagnostic (Pelican Renewablesuch Ultra Test) stripDiscontinued0.ROUTE.AFHYSRJ5047Gevia 2023 5:08pm August 26, 2024 12:32pmType 2 diabetes mellitus with hyperglycemia Type 2 diabetes mellitus with hyperglycemiaUSE TO TEST BLOOD SUGAR ONCE A DAY Dulaglutide (Trulicity) 0.75 mg/0.5 mL pen injectorDiscontinued0.75MGSUBCUTevery dsju3274Jtzuz 2023 4:00pmMay 2023 4:39pmMetformin 1,000 mg tablet Discontinued0.ROUTE.PNJNYTJ9976Prwhn 2023 4:10pmMarch 2024 4:07pmTAKE 1 TABLET BY MOUTH BEFORE BREAKFAST AND EVENING MEALDulaglutide (Trulicity) 0.75 mg/0.5 mL pen injectorDiscontinued1.5MGSUBCUTevery jxgy82631Jos2023 4:39pmJune 2023 10:24amGlimepiride 4 mg zzhfsxBuzdubgkzvsd0RHFIPnqelGlg 2023 4:39pmMay 2023 12:09pmGlimepiride 4 mg pipvuyHuysgzhyrqrd1GEMQ Lysow46227Eez 2023 12:09pmJuly 2023 1:14pmPen Needle, Diabetic (Bd Isa 2nd Gen Pen Needle) 32 gauge x 5/32 needleDiscontinued0.ROUTE.LNTMCCH5121 October 29, 2023 12:09pmJune 2024 9:18amUSE TO INJECT INSULIN SUBCUTANEOUSLY ONCE EVERYDAYDulaglutide (Trulicity) 1.5 mg/0.5 mL pen injectorDiscontinued1.5MG SUBCUTevery flke3819Rsbz 18th, 2024 10:24amOctober 2023 11:41amGlimepiride 4 mg tabletDiscontinued0.ROUTE.MSRHFHG3708Vmyj 2023 1:14pmJuly 2024 7:35amTAKE 2 TABLETS BY MOUTH ONCE DAILY 30 MINUTES PRIOR TO FIRST MEAL OF THE DAYBenazepril 20 mg tabletDiscontinued0.ROUTE.MIBVQJP498Smasdw2023 6:38am May 18, 2024 10:19amTAKE 1 TABLET BY MOUTH EVERY DAY FOR 90 DAYSAmlodipine 5 mg tabletActive0.ROUTE.AYUFFTF850Xomuiw2023 6:38amTAKE 1 TABLET BY MOUTH EVERY DAY FOR 90 DAYSComplies with drug therapyAllopurinol 100 mg tablet Discontinued0.ROUTE.ASLDYHV5853Pqaelffkz 2023 6:38amSeptember 2024 4:01pmTAKE 1 TABLET BY MOUTH EVERY DAY FOR 30 DAYSDulaglutide (Trulicity) 1.5 mg/0.5 mL pen injectorDiscontinued1.5MGSUBCUTevery ovqi6347Okzhzzc 2023 11:40amNovember 2023 4:16pmDulaglutide 3 mg/0.5 mL pen injectorDiscontinued 3MGSUBCUTevery tljw2264Imbavkiw 5th, 2024 4:16pmDecember 2023 10:09am Insulin Glargine (Lantus Solostar U-100 Insulin) 100 unit/mL (3 mL) insulin pen Rvndjnnhrqbm25ALQDXGFMSPNmngi43218Gkcmivem 2023 10:18pmMarch 2024 12:13pmAtorvastatin 10 mg tabletActive0.ROUTE.AJBETVS3382Ohreblh 2024 7:30amTAKE 1 TABLET BY MOUTH EVERY DAYComplies with drug therapyDulaglutide 3 mg/0.5 mL pen injectorDiscontinued1.5MGSUBCUTevery lyco2012Lrzsrwij 2024 9:04amFebruary 2024 1:02pmDulaglutide 3 mg/0.5 mL pen injectorDiscontinued3 MGSUBCUTevery hrmn7929Nqxiplmm 2024 1:01pmMarch 2024 4:59pmInsulin Glargine (Basaglar Kwikpen U-100 Insulin) 100 unit/mL (3 mL) insulin orcOdgret53 UNITSUBCUTEvery vnfbkes24632Adqjc 2024 12:00amComplies with drug therapy Blood Sugar Diagnostic (Pelican [employer]uch Ultra Test) stripActive0.ROUTE.SSEUNAI3028Nugcf 2024 12:31pmType 2 diabetes mellitus with hyperglycemia Type 2 diabetes mellitus with hyperglycemiaUSE TO TEST BLOOD SUGAR ONCE A DAY Metformin 1,000 mg tabletActive0.ROUTE.BOZRYHZ3279Tmxgf 2024 4:06pmTAKE 1 TABLET BY MOUTH BEFORE BREAKFAST AND EVENING MEALComplies with drug therapy Dulaglutide 3 mg/0.5 mL pen jzmvvstfEaobhteevhit3TWMRBOJQieqdy bxwp21839Uuhzh 2024 4:59pmAugust 2024 9:28amFinasteride 5 mg jnxdfsLvuftc6NVSLVibff 239644Vykz 2024 9:11amComplies with drug therapyTamsulosin 0.4 mg capsule Active0.4MGPOTwice kbbnt671425Qyan 2024 9:12amComplies with drug therapy Pen Needle, Diabetic 32 gauge x needleActive0.ROUTE.MQQVKUT38466Lrgq 12th, 2025 9:18amUSE TO INJECT INSULIN SUBCUTANEOUSLY ONCE DAILYGlimepiride 4 mg tabletActive0.ROUTE.GOJSOBI9992Uzhy 2024 7:35amTAKE 2 TABLETS BY MOUTH ONCE DAILY 30 MINUTES PRIOR TO FIRST MEAL OF THE DAYComplies with drug therapy Sod Picosulf-Mag Ox-Citric Ac (Clenpiq) 10 mg-3.5 gram- 12 gram/175 mL solution Tilbezrxyiah941LXJNUprwq98387Cekxwaddw 1st, 2025 11:00pmNov2024 9:02amTake the first dose at 3:00 p.m. the day before the colonoscopy, take the second dose at 9:00 p.m. the day before the colonoscopyAllopurinol 100 mg tablet Ydavvt976SDOQNpwyy47924Kprdbyvig 21st, 2025 4:00pmComplies with drug therapy Tirzepatide (Mounjaro) 2.5 mg/0.5 mL pen injectorActive2.5MGSUBCUTevery March 30, 2025 12:16pmfor 4 weeksComplies with drug therapySod Picosulf-Mag Ox-Citric Ac (Clenpiq) 10 mg-3.5 gram- 12 gram/175 mL vpfpglamBvqpbr270TWLPTdasl 29844Mevhfslz2024 12:00amTake the first dose at 3:00 p.m. the day before the colonoscopy, take the second dose at 9:00 p.m. the day before the colonoscopyUnknownBrimonidine 0.2 % bscebMkemly4ILBPCJOW-RMZSPeoay dailyOctober 2024 11:00pmComplies with drug therapyAtorvastatin 10 mg tablet Xwioyjelegar0FNCYSYawqdUhetcixh 2023 12:00amJanuary 2024 7:30am FreeTextSig: TAKE 1 TABLET BY MOUTH EVERY DAY; Note: Source Status: Start; Refills: 11; Qty: 30 Tablet; Provider: Peter Mcfadden ( ) Dulaglutide (Trulicity) 0.75 mg/0.5 mL pen injectorDiscontinuedMGSUBCUTFebruary 2023 12:00amFebruary 2023 11:42amFreeTextSi.75 MG Subcutaneous weekly; Note: Source Status: Start; Refills: 0; Qty: 4 Each; Provider: Peter Mcfadden EFinasteride 5 mg haryyrXyqyryzrzmaq6JETNYMnqnp dailyFebruary 2023 12:00amDecember 2023 10:23amFreeTextSi tablet Orally twice a day; Note: Source Status: Taking; Provider: Peter Mcfadden ( ) Benazepril 20 mg wumxxdXduegdpkzars4CZKLFGvsthEyqffpwg 2023 12:00amAugust 2023 6:38amFreeTextSi tablet Orally Once a day; Note: Source Status: Continue; Provider: Peter Mcfadden ( )Glimepiride 4 mg tablet Oygakdoesjti0HLRNNPxsgeCivgcqxr 2023 12:00amMay 2023 4:39pm FreeTextSi tablets Orally once a day; Note: Source Status: Continue; Provider: Peter Mcfadden EMetformin 1,000 mg ljhskyFokjqijigqvk0006LPRXRyron daily with mealsFeuary 2023 12:00amApril 2023 4:10pmTamsulosin 0.4 mg cxqbnyaNfiedicahufd2GGQOYAqexc dailyFebruary 2023 12:00amJune 2024 9:12amFreeTextSi capsule Orally twice a day; Note: Source Status: Taking; Provider: Peter Mcfadden ( )Allopurinol 100 mg tablet Mgogllypthzl9EZUAWXwuqeGdghmywg 2023 12:00amSept2023 6:38am FreeTextSi tablet Orally Once a day; Note: Source Status: Taking; Refills: 12; Qty: 30 Tablet; Provider: Peter Mcfadden EAmlodipine 5 mg tabletDiscontinued1 TABPODailyFebruary 2023 12:002023 6:38amFreeTextSi tablet Orally Once a day; Note: Source Status: Continue; Provider: Peter Mcfadden ( )Insulin Glargine (Basaglar Kwikpen U-100 Insulin) 100 unit/mL (3 mL) insulin penDiscontinuedUNITSUBCUTFebary 2023 12:00am February 18, 2024 8:43amFreeTextSi units Subcutaneous q HS; Note: Source Status: Not-Taking\PRN; Refills: 5; Qty: 1 Each; Provider: Peter Hagan Omeprazole Magnesium (Prilosec Otc) 20 mg tablet,delayed release (DR/EC)Fcrrml86 MGPODailyFebruary 2023 12:00amComplies with drug therapyDulaglutide (Trulicity) 0.75 mg/0.5 mL pen injectorDiscontinued0.75MGSUBCUTevery weekJuly 30, 2023 11:46amMarch 2023 4:01pmBlood Sugar Diagnostic strip Discontinued0.Xbsfk4966Pathb 2023 12:00amMarch 2023 5:08pmType 2 diabetes mellitus with hyperglycemia Type 2 diabetes mellitus with hyperglycemiaAs directedLatanoprost 0.005 % drops Oounoo6IMACHHQY-ZZFJEglonQhcovkzvc 2nd, 2024 11:00pmComplies with drug therapy Dulaglutide 1.5 mg/0.5 mL pen injectorDiscontinued1.5MGSUBCUTevery sixo3775 May 18, 2024 10:07amFebruary 2024 9:04amTelmisartan 40 mg tablet Tfcpgo41UZSIAbbxp853996Yidauncv 2nd, 2024 12:00amComplies with drug therapy Finasteride 5 mg gzhmoaYmmwbxqcsdes8EYVOUekaw75701Ehwyabta 2nd, 2024 10:22amJune 2024 9:12amTirzepatide (Mounjaro) 2.5 mg/0.5 mL pen injectorDiscontinued 2.5MGSUBCUTevery dmvd2860Dsnuxj 25th, 2025 11:00pmOctober 2024 12:16pmfor 4 weeksInsulin Glargine (Lantus Solostar U-100 Insulin) 100 unit/mL (3 mL) insulin fxkLqzgcmaakofc23SMFDVGXSZACwhdq 2023 12:00amMarch 2023 1:31pmInsulin Glargine (Lantus Solostar U-100 Insulin) 100 unit/mL (3 mL) insulin zvsRlrhssclbgtn16FCWZQZNRNRMqtlt pjokuel1356Wscku2023 1:30pm June 15, 2024 10:18pmPen Needle, Diabetic (Bd Isa 2nd Gen Pen Needle) 32 gauge x 5/32 needleDiscontinued0.Lsqyt1976Ptp 2023 11:00pmMay 2023 12:10pmAs directed Immunizations Immunization Event Date Not Given Reason Dose Number Flat Locker Lot Number Reason(s) Given Vaccine Information Statement (VIS) Detail Administration Location influenza, unspecified formulation April 16, 2020 influenza, unspecified formulationNov2020influenza, unspecified formulationOct2021influenza, unspecified formulationNovneumococcal Conjugate Vaccine, 20 valentNovember 2021Zoster Vaccine Recombinant, AdjuvantedSept2022Zoster Vaccine Recombinant, AdjuvantedNovember 2022 Relevant Diagnostic Tests and/or Laboratory Data Laboratory Results Test Collection Date/Time Result Date/Time Result Interpretation Reference Range Result Comment Performing Site Estimated Average Glucose February 03, 2025 5:42 am February 03, 2025 5:42am 160 mg/dL Hemoglobin R2kGfcvrx2024 5:42amAugu2024 5:42am7.2 %Above high normal4.5-6.2ADA RECOMMENDED LIMIT 4.0 - 6.0ADA THERAPEUTIC TARGET < 7.0ACTION SUGGESTED> 7.0 Vital Signs Vital Reading Result Reference Range Collection Date/Time Height 75 [in_i] February 09, 2025 9:66xmIrlfgr929.95 kgAugust 2024 9:00amHeart Rate68 /min 60-100Augus2024 9:00amRespiratory rate12 /uba88-97Cbhlbt 2024 9:00amBP Qptwolcn225 mm[Hg]100-140August 2024 9:00amBP Oatozeaiw35 mm[Hg] 60-100August 2024 9:00amBMI (Body Mass Index)32.8 kg/f1Igfuhr 2024 9:56tqNhvlms16.5 [in_i]April 26, 2025 9:32pyHgovkm066.39 kgNov[facility] Health2024 9:02amHeart Rate82 /vsu95-618OymkisdmApril 26, 2025 11:05amRespiratory rate16 /dxb22-04Itwhaiic 10th, 2025 11:05amOxygen saturation by Pulse % 95-100Nov2024 11:05amBP Dwjllxui019 mm[Hg]100-140Nov2024 11:05amBP Rwhccuiiv02 mm[Hg]60-100Nov2024 11:00ejSblgpv97.5 [in_i] May 04, 2025 11:41clXurrpn852.03 kgMay 04, 2025 11:30amHeart Rate 74 /nxy02-450ArfuemwbMay 04, 2025 2:30pmRespiratory rate16 /wql93-09AoxomymqMay 04, 2025 2:30pmOxygen saturation by Pulse ibdcugmy45 %95-100May 04, 2025 2:30pmBP Uaykqhrt833 mm[Hg]100-140May 04, 2025 2:30pmBP Swakojnjl35 mm[Hg]60-100May 04, 2025 2:30pm Advance Directives Advance Directive Response Recorded Date/ Time Advance Directives No July 06, 2023 12:00pm Insurance Providers Guarantor Esdras Correa Address [address] [place] [address]Nmvteli Info.Home Phone: Payer Group Member ID Coverage Type Subscriber Relationship to Subscriber Effective Date Expiration Date Patsy BROOKS/INGRID Id: [id number] R Dreger Id: [id number] [place] [address] Home Phone: Email: [email or web address] R Dreger Id: [id number] [place] [address] Home Phone: Email: [email or web address] Encounters Encounter Location(s) Arrival/Admit Date Discharge/Departure Date Discharge/Departure Disposition Provider(s) Non-patient / Non-visit -[facility] 2024 6:42am Bogdan Ball , DODeparted Physician/Provider [facility] 9:52amAugust 2024 10:35amDischarged to home care or self care (routine discharge)Rashel Plascencia-patient / Non-visit- [facility] 2024 8:47Barry Ohraa MDNon-patient / [facility] 12:56pmAmy AlexanderNon- patient / Zzm[facility]eulem[facility] 2024 10:43Barry Ohara MD Recent Diagnosis Onset Date Admit Date Dyspnea Unknown February 09 9:52am Elevated cholesterol Unknown January 9:52am Gastroesophageal reflux dise ase with esophagitis without hemorrhage Unknown February 09, 2025 9:52am Primary hypertension Unknown January 9:52am Spondylosis without myelopat hy or radiculopathy, lumbar region Unknown February 09, 2025 9:52am Type 2 diabetes mellitus with hyperglycemia Unkn own February 09, 2025 9:52am Screening for colon cancer Unknown Augus t 2024 9:52am Assessments Diagnosis Onset Date Resolution Status Admit Date Dyspnea acuteAugust 2024 9:52amElevated cholesterolacuteAugust 2024 9:52am Gastroesophageal reflux disease with esophagitis without hemorrhageacuteAugust 2024 9:52amPrimary hypertensionacuteAugust 2024 9:52amSpondylosis without myelopathy or radiculopathy, lumbar regionacuteAugust 2024 9:52am Type 2 diabetes mellitus with hyperglycemiaacuteAugust 2024 9:52am Screening for colon cancernoneactiveAugust 2024 9:52am Plan of Treatment [facility] 7:15pmI have instructed this patient to consume a healthy, low-fat, low-salt diet. I have also encouraged them to continue exercise with weight loss to achieve/maintain a BMI < 30. I have instructed this patient on the correct procedure for obtaining home BP measurements:? - rest for 5 minutes w/o talking. - positioned w/ feet on floor and arms supported. - average best 2/3 readings w/ goal < 135/85. - update office w/ home readings in 2 weeks. Continue Amlodipine without interruption Change ROMAIN to ARB due to cough I have instructed this patient to follow a comprehensive diabetic treatment plan. I have also instructed them to check their feet daily for calluses and nonhealing ulcers. I have instructed them to have a yearly dilated eye examination. I have reviewed their treatment goals: SBP less than 130, LDL less than 100, FBS less than 140, A1C less than 7%. I have instructed them to maintain a home BS log and bring the results to each of their office visits for review. I have explained the importance of routine monitoring of their A1C, Microalbumin and Lipids. I have explained the benefits of well controlled diabetes in preventing micro and macrovascular complications. Improving A1C but remains outside goal of < 7.0% - offered to increase to 4.5mg but declined due to GI side effects - discussed alternate treatment w/ GLP1/GIP, which has benefit of improved BS control and further weight loss GLP1/GIP class of medications are known to reduce major cardiovascular events w/ positive effects on BP, endothelial function and lipid metabolism. GLP1/GIP are known to reduce hepatic steatosis and attenuates metabolic dysfunction associated fatty liver disease. GLP1/GIP class of medications improve BS control and will promote further weight loss Continue Metformin, Glimepiride, Basaglar and Trulicity without interruption A1C slowly decreasing I have instructed this patient on a low fat, high fiber diet and exercise. I have discussed the primary and secondary prevention benefits attributed to lowering LDL cholesterol. I have also discussed the medical treatment of elevated cholesterol, which is based on the 10 year ASCVD risk. Continue Atorvastatin without interruption I have instructed this patient to avoid bending, twisting or lifting. I have also instructed on use of intermittent heat and ice as needed. They may schedule a massage or gentle manipulation. I instructed them on the safe use of Tylenol, Lidocaine and stretching exercises. I informed them of alternative modes of treatment for severe pain, which may include referral to physical therapy or pain management. No significant improvement w/ PT and pain management. s/p Vertiflex implant w/ some relief of back pain. 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 He denies CP, palpitations, diaphoresis or lightheadedness He has multiple risk factors for CVD: T2DM, HLD, HTN, family hx and age. He denies hx of tobacco use or asthma He denies sputum production or hemoptysis CXR: hyperinflation, increased interstitial marking in dependent areas of lung suggestive of atelectasis - 02/2024 Echo: LVEF58%, ZAYNAB, normal RV size and function, RVSP 39 - 02/2024 I have instructed this patient to avoid lying flat after eating.?? I have also recommended to avoid eating 2 hours prior to bedtime.?? They were also informed that smaller, frequent meals may be better tolerated. I have discussed additional treatment options for persistent symptoms, which includes: weight loss, H2 blockers and PPI. I have also instructed them to notify the office with any pain or difficulty swallowing. Continue Omeprazole without interruption Aggravated by GLP1 therapy This is an asymptomatic, moderate risk patient, who is due for a screening colonoscopy. There has been no change in appetite, weight or bowel habits. There is no history of abdominal pain, heartburn, dysphagia, melena or hematochezia. Last colonoscopy in 2019 w/ polypectomy with recommendations to repeat the colonoscopy in 5 years Future Tests Future scheduled test information is unavailable Pending Tests Pending diagnostic test information is unavailable Future Visits Future appointment information is unavailable Future Procedures Procedure Name Ordered Date Scheduled Date Discharge Order May 04, 2025 1:57pm [facility] 2024 1:57pm Discharge Order April 26, 2025 11:00am Nia tillman 2024 11:00am Future Medications Future medication information is unavailable Patient Instructions Instruction Admit Date Colon polyps [facility] Hemorrhoids Discharge Instructions Know your [facility] 2024 8:[place] Diverticulosis Discharge Instructions [facility] Hemorrhoids Discharge Instructions Know your [facility] 10:43am [facility] Discharge Instructions Additional Instructions DISCHARGE INSTRUCTIONS FOR COLONOSCOPY WHAT TO EXPECT: - You may feel full, gassy or cramping after your procedure. In some cases, this may be from a few hours to a day. Walking may help relieve the discomfort. - If you have polyp(s) removed you may note some minor bloody discharge after your first bowel movements. - You should begin to recover from anesthesia within 1 hour of the procedure, however may feel groggy for the next 24 hours. DO's AND DON'Ts: - Call your doctor right away if you have a hard abdomen, severe pain, are passing lots of bright red blood or clots. - Call your doctor if you develop any rashes, hives or difficulty breathing. - Let your doctor know if you have not had a bowel movement by 3 days after your procedure. - If you take 81 mg aspirin for your heart it is safe to resume this medication. - If you take other blood thinner medications your doctor will instruct you when these can safely be resumed. - Do NOT drive for 24 hours. - Do NOT operate machinery such as power tools, [employer] mowers, snow blowers, sewing machines, etc. for 24 hours. - Avoid alcoholic beverages and drugs for allergies, nerves, or sleep. - Do NOT stay alone. Do NOT leave your child unattended. - Do NOT make important personal or business decisions or sign any legal documents. - Eat solid foods and drink liquids in smaller amounts than usual until normal appetite returns. If you should experience an upset stomach, liquids high in sugar content (soda, Allen-Aid, non-acid juices) are recommended. - You can resume normal activities tomorrow. FOLLOW UP & RECOMMENDATIONS: -Notify the doctor if you have any problems. -Repeat colonoscopy in 6 months -Follow up with PCP. -Office number [phone].
--- OUTSIDE RECORDS SUMMARY | 2025-05-07 10:37 | XMS_ITS | Clinical Summary ---
Author Organization [facility] Address [address] [place] [address] Care Team Providers Care Mechanical Insulator Name Role Phone Unavailable Primary Care Provider Unavailabl e Allergies No known active allergies Medications MedicationSigDispense QuantityRefillsLast FilledStart DateEnd DateStatus allopurinol (Zyloprim) 100 MG tablet TAKE 1 TABLET BY MOUTH EVERY DAY FOR 30 DAYS5Active amLODIPine (Norvasc) 5 MG tablet TAKE 1 TABLET BY MOUTH EVERY DAY FOR 90 DAYS5Active atorvastatin (Lipitor) 10 MG tablet Take 10 mg by mouth Daily5Active brimonidine (AlphaGAN P) 0.2 % ophthalmic solution PLACE 1 DROP INTO BOTH EYES TWICE A DAY5Active finasteride (Proscar) 5 MG tablet Take 5 mg by mouth Daily5Active glimepiride (Amaryl) 4 MG tablet TAKE 2 TABLETS BY MOUTH ONCE A DAY 30 MINUTES PRIOR TO FIRST MEAL OF THE DAY 5Active OneTouch Ultra Blue Test test strip USE TO TEST BLOOD SUGAR ONCE A DAY03/07/2025tive latanoprost (Xalatan) 0.005 % ophthalmic solution INSTILL 1 DROP INTO BOTH EYES BEFORE BED5Active metFORMIN (Glucophage) 1000 MG tablet TAKE 1 TABLET BY MOUTH BEFORE BREAKFAST AND EVENING MEALActive omeprazole (PriLOSEC) [address] capsule Take 40 mg by mouthActive tamsulosin (Flomax) 0.4 MG 24 hr capsule Take 0.4 mg by mouth in the morning and 0.4 mg before bedtime.5Active telmisartan (MIcarDIS) 40 MG tablet Take 40 mg by mouth Daily5Active Mounjaro 2.5 MG/0.5ML solution auto-injector INJECT 2.5MG SUBCUTANEOUSLY ONCE EVERY WEEK5Active Active Problems No known active problems Encounters DateTypeDepartmentCare NltbHtuqfdzdovu57/14/2025Results [facility] [address] [place] [address] Kamala Sarmiento APRN-CNP Dermatopathology exam03/22/2025 2:40 PM EDTOffice Visit [facility] [address] [place] [address] Kamala Sarmiento APRN-CNP Actinic keratosis (Primary Dx); Neoplasm of unspecified behavior of bone, soft tissue, and skin03/22/2025amboo flowsheet [facility] [address] [place] [address] Kamala Sarmiento APRN-CNP 03/22/2025Travelfrom Last 3 Months Social History Tobacco UseTypesPacks/DayYears UsedDateSmoking Tobacco: NeverSmokeless Tobacco: Never Tobacco Cessation:Counseling Given: Not Answered Sex and Gender InformationValueDate RecordedSex Assigned at BirthNot on file Legal CmsBxly8002/11/2025 10:22 AM EDTGender IdentityNot on fileSexual Orientation Not on file Plan of Treatment DateTypeDepartmentCare Team (Latest Contact Info)Gahapfmyist24/24/2025 11:00 AM ESTOffice Visit [facility] [address] [place] [address] Za Huitron MD [address] [place], [place] [id number] 09/27/2025 1:05 PM EDTOffice Visit [facility] [place] [facility] [address] [place] [address] Kamala Sarmiento APRN-CNP [address] [place] [address] Health MaintenanceDue DateLast DoneCommentsCT Bteiohhsgqes11/10/1957Colonoscopy 1956Colorectal Cancer Gozjmwgsn49/10/1957FIT-DNA1956FIT1956 FOBT09/24/19560556Cjecvhvwzjlrb79/10/1957COVID-19 Vaccine ( season) 5107/03/2022, 05/08/2021, 09/16/2020, Additional history existsInfluenza Vaccine (#1), 04/26/2023, 04/16/2022, Additional history existsPneumococcal Vaccine: 65+ YuxrxHeyenucog00/09/2022 Procedures Procedure NamePriorityDate/TimeAssociated DiagnosisCommentsSKIN / NAIL BIOPSY Zyalcin3403/22/2025 2:29 PM EDT Neoplasm of unspecified behavior of bone, soft tissue, and skin CRYOTHERAPY SKIN MBEKYVOmzbxmx77/06/2025 2:28 PM EDT Actinic keratosis DERMATOPATHOLOGY KZLFHmelyuy91/06/2025 12:00 AM EDT Neoplasm of unspecified behavior of bone, soft tissue, and skin from Last 3 Months Results * Lesion biopsy (03/22/2025 2:29 PM EDT) Narrative Blossom Whitaker MA - 03/22/2025 2:29 PM EDT Type of biopsy: tangential Informed consent: discussed and consent obtained ?? Informed consent comment: ??The risks and benefits of the biopsy were discussed. Risks include but are not limited to bleeding, infection, scarring, pain, and nerve damage. An opportunity to ask questions prior to the procedure was permitted and all questions were answered. Patient was prepped and draped in usual sterile fashion: area cleansed with alcohol. Anesthesia: the lesion was anesthetized in a standard fashion ?? Anesthetic: ??1% lidocaine w/ epinephrine 1-100,000 buffered w/ 8.4% NaHCO3 Instrument used: DermaBlade ?? Hemostasis achieved with: electrodesiccation ?? Outcome: patient tolerated procedure well ?? Outcome comment: ??The specimen was placed in a prelabeled formalin container to be sent for pathology Post-procedure details: sterile dressing applied and wound care instructions given ?? Post-procedure details comment: ??Emphasized need to contact clinic for any signs of infection, uncontrollable bleeding, or complications. Dressing type: bandage ?? Additional details: ??Photo taken Amount of lidocaine used: 1.0 cc Authorizing ProviderResult TypeResult StatusNatalie A Felter MARKETING PLANNER-CNPDERM PROCEDURE ORDERABLESFinal Result * Cryotherapy, skin lesion (03/22/2025 2:28 PM EDT) Narrative Authorizing ProviderResult TypeResult StatusNatalie A Felter MARKETING PLANNER-CNPDERM PROCEDURE ORDERABLESFinal Result * Dermatopathology exam (03/22/2025 12:00 AM EDT)ComponentValueRef RangeTest MethodAnalysis TimePerformed AtPathologist SignatureSPECIMEN TYPE SPECIMEN: LEFT UPPER ARM [facility] [id number] Code D04.60AURORA DIAGNOSTICSPROTOCOLF - FLATAURORA DIAGNOSTICSFinal Diagnosis 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 COMMENT: This material was reviewed with Dr. Velez. [facility] DIAGNOSTICSGross TextAURORA DIAGNOSTICSMicroscopic DescriptionMicroscopic examination performed.[facility] [id number]*1AURORA DIAGNOSTICSSpecimen (Source)Anatomical Location / LateralityCollection Method / VolumeCollection TimeReceived TimeSkinTopography unknown / Tgxoefs3903/22/2025 2:29 PM EDTComment: Differential Diagnosis: AK vs SCC Check Margins: No Size of lesion: 1.0 x 0.7 cm Narrative Authorizing ProviderResult TypeResult StatusNatalie A Felter MARKETING PLANNER-CNPLAB PATHOLOGY ORDERABLESFinal ResultPerforming OrganizationAddressCity/State/ZIP CodePhone Number [facility] from Last 3 Months Insurance
--- OUTSIDE RECORDS SUMMARY | 2025-05-07 10:37 | XMS_ITS | Encounter Summary ---
Author Organization [facility] Address [address] [place] [address] Care Team Providers Care School Inspector Name Role Phone Unavailable Primary Care Provider Unavailabl e Source Comments In the event this information is protected by the Federal Confidentiality of Alcohol and Drug AbusePatient Records regulations: The Federal rules restrict any use of the information to criminally investigate or prosecute any alcohol or drug abuse patient.[facility] Encounter Details DateTypeDepartmentCare Team (Latest Contact Info)Sqzdznqaihx36/13/2025Lab Requisition [facility] [address] [place] [address] Victor Manuel Ohara MD [address] [place] [address]. [place] [phone] Person encountering health services to consult on behalf of another person Social History Tobacco UseTypesPacks/DayYears UsedDateSmoking Tobacco: NeverSmokeless Tobacco: NeverAlcohol UseStandard Drinks/WeekCommentsYes0 (1 standard drink = 0.6 oz pure alcohol)beer occasionallySex and Gender InformationValueDate RecordedSex Assigned at BirthNot on fileLegal BepWvmf54/08/2015 11:43 AM ESTGender Identity Not on fileSexual OrientationNot on fileOccupationIndustryJob Start DateJob End DateNot on fileNot on fileNot on fileNot on filecustodial duties schoolNot on fileNot on fileNot on filedocumented as of this encounter Plan of Treatment Not on file documented as of this encounter Procedures Procedure NamePriorityDate/TimeAssociated DiagnosisCommentsSURGICAL PATHOLOGY REFERENCE LAB WMKRZHZJjebbca91/13/2025 9:49 AM EST Person encountering health services to consult on behalf of another person documented in this encounter Results * SURGICAL PATHOLOGY REFERENCE LAB CONSULT (04/29/2025 9:49 AM EST)Component ValueRef RangeTest MethodAnalysis TimePerformed AtPathologist SignatureCase ReportSurgical Pathology Report ? Case: [id number] ? Authorizing Provider: ??Victor Manuel Ohara MD ?Collected: ? 04/29/2025 09:49AM ? Ordering Location: ? [facility] Main ?Received: ?04/29/2025 09:48 AM ? [facility] ? Pathologist: ? Ze Dover MD ? Specimen: ?Slide(s), 4 SLIDES [id number] ? 04/30/2025 11:12 AM [facility] LABFINAL DIAGNOSIS1. 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 - Complete lesion removal with negative margins is recommended. 2. Colon, descending, polypectomy (B1): - Fragments of tubular adenoma.04/30/2025 11:12 AM [facility] at 1112 ESTClinical HistoryCONSULT HBFIXJDRB81/14/2025 11:12 AM [facility] Performing LabDiagnostic interpretation performed at: [facility], [address] [place] [address] CLIA# [id number] Production Roustabout: Ruben Clayton MD 04/30/2025 11:12 AM [facility] LABDisclaimerLaboratory Developed Test (LDT) Disclaimer: Performance characteristics of immunohistochemical, immunofluorescent, and chromogenic in-situ hybridization tests have been determined by the performing laboratory within the [facility] Department of Pathology and Laboratory Medicine ([facility], [facility], [facility], [facility], [facility], [facility], or [facility]) in a manner consistent with CLIA requirements. One or more of these tests may not have been cleared or approved by the FDA. The [facility] Department of Pathology and Laboratory Medicineis regulated under CLIA as qualified to perform high-complexity testing. These tests are used for clinical purposes. These should not be regarded as investigational or for research. Positive and negative controls stain appropriately.04/30/2025 11:12 AM EST [facility] LABSpecimen (Source)Anatomical Location / Laterality Collection Method / VolumeCollection TimeReceived TimeBlocks or SlidesMICROSCOPE SLIDE / Umkcjjb6404/29/2025 9:49 AM EST04/29/2025 9:48 AM EST Narrative Authorizing ProviderResult TypeResult StatusImad Asaad MDSURGICAL PATHOLOGYFinal ResultPerforming OrganizationAddressCity/State/ZIP CodePhone Number [facility] [address] [place] [address], documented in this encounter Visit Diagnoses Diagnosis Person encountering health services to consult on behalf of another person Other person consulting on behalf of another person documented in this encounter
--- OUTSIDE RECORDS SUMMARY | 2025-05-07 10:37 | XMS_ITS | Clinical Summary ---
Author Organization [facility] Address [address] [place] [id number] Care Team Providers Care Deputy Court Name Role Phone Unavailable Primary Care Provider Unavailabl e Allergies No known active allergies Medications MedicationSigDispense QuantityRefillsLast FilledStart DateEnd DateStatus metFORMIN (GLUCOPHAGE) 1,000 mg tablet Take 1,000 mg by mouth twice daily with meals.Active alogliptin (NESINA) 25 mg tab Take 25 mg by mouth once daily.Active Omeprazole (PRILOSEC) 40 mg capsule Take 40 mg by mouth as needed.Active VIAGRA 100 mg tablet 02/10/2015ctive aspirin, enteric coated (ASPIRIN, ENTERIC COATED) 81 mg EC tablet Take 81 mg by mouth once daily.Active atorvastatin (LIPITOR) 20 mg tablet Take 1 tablet by mouth once daily. 90 tablet ctive lisinopril (ZESTRIL, PRINIVIL) 5 mg tablet Take 1 tablet by mouth once daily. 90 tablet ctive Active Problems ProblemNoted DateDiagnosed DatePrecordial pain05/30/2015 Encounters DateTypeDepartmentCare MkqxTrqvxngrmay05/13/2025Lab Requisition [facility] [address] [place] [address] Victor Manuel Ohara MD Person encountering health services to consult on behalf of another personfrom Last 3 Months Family History Medical HistoryRelationCommentsSkin CancerBrother 2CHF [Other]FatherDiabetes FatherRelationStatusCommentsBrother 1AliveBrother 2FatherAliveMotherAlive Social History Tobacco UseTypesPacks/DayYears UsedDateSmoking Tobacco: NeverSmokeless Tobacco: NeverAlcohol UseStandard Drinks/WeekCommentsYes0 (1 standard drink = 0.6 oz pure alcohol)beer occasionallySex and Gender InformationValueDate RecordedSex Assigned at BirthNot on fileLegal QapUmwj31/08/2015 11:43 AM ESTGender Identity Not on fileSexual OrientationNot on fileOccupationIndustryJob Start DateJob End DateNot on fileNot on fileNot on fileNot on filecustodial duties schoolNot on fileNot on fileNot on file Last Filed Vital Signs Vital SignReadingTime TakenCommentsBlood Vmpljocu956/9405/30/2015 10:35 AM EST Fdtwr150605/30/2015 10:35 AM OCXPxbjzhvxwmg38 ??C (96.8 ??F)05/30/2015 10:35 AM ESTRespiratory Geiw141507/31/2014 10:35 AM ESTOxygen Njfrwuaeql79%05/30/2015 10:35 AM ESTInhaled Oxygen Concentration--Mnacmx799.7 kg (248 lb 6.4 oz)05/30/2015 10:35 AM BFLBmkmsr469.6 cm (6' 5 )05/30/2015 10:35 AM ESTBody Mass Index29.46 05/30/2015 10:35 AM EST Plan of Treatment Health MaintenanceDue DateLast DoneCommentsAnxiety Tzhxxhvos36/10/1975Depression Ybnmaxecg75/10/1975Hepatitis C Uhdzuuvdi13/10/1975DTaP,Tdap,Td Vaccine (1 - Tdap)09/25/1975Lipid Gdedkumqt64/10/1992CT Nsuivjekonvt68/10/2002Cologuard (FIT-DNA)09/24/20013073Erpzixrgyke25/10/2002Colorectal Cancer Hfsgvxanm31/10/2002 Diabetes Ygwvodest41/10/2002Fecal Occult Blood2001Prostate Cancer Screening Cbzrghjaim61/10/2918Bbtcodhixjjbx59/10/2002Pneumococcal Vaccine: 50+ (1 of 1 - PCV)2006Shingrix Vaccine (1 of 2)2006dvance Directive Yuqviyuoje63/01/2025ovid-19 Vaccine (1 - 2024- season)2025Influenza Vaccine (#1)2025RSV Vaccine (1 - 1-dose 75+ series)09/25/2031 Procedures Procedure NamePriorityDate/TimeAssociated DiagnosisCommentsSURGICAL PATHOLOGY REFERENCE LAB RTWBHNQMkifqkq00/13/2025 9:49 AM EST Person encountering health services to consult on behalf of another person from Last 3 Months Results * SURGICAL PATHOLOGY REFERENCE LAB CONSULT (04/29/2025 9:49 AM EST)Component ValueRef RangeTest MethodAnalysis TimePerformed AtPathologist SignatureCase ReportSurgical Pathology Report ? Case: [id number] ? Authorizing Provider: ??Victor Manuel Ohara MD ?Collected: ? 04/29/2025 09:49AM ? Ordering Location: ? [facility] ?Received: ?04/29/2025 09:48 AM ? [facility] ? Pathologist: ? Ze Dover MD ? Specimen: ?Slide(s), 4 SLIDES [id number] ? 04/30/2025 11:12 AM [facility] LABFINAL DIAGNOSIS1. 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 - Complete lesion removal with negative margins is recommended. 2. Colon, descending, polypectomy (B1): - Fragments of tubular adenoma.04/30/2025 11:12 AM [facility] at 1112 ESTClinical HistoryCONSULT GDOJSOZAD09/14/2025 11:12 AM [facility] Performing LabDiagnostic interpretation performed at: [facility], [address] [place] [id number] CLIA# [id number] Barber Or Beauty Shop Manager: Ruben Clayton MD 04/30/2025 11:12 AM [facility] LABDisclaimerLaboratory Developed Test (LDT) Disclaimer: Performance characteristics of immunohistochemical, immunofluorescent, and chromogenic in-situ hybridization tests have been determined by the performing laboratory within the [facility] Department of Pathology and Laboratory Medicine ([facility], [facility], [facility], [facility], [facility], [facility], or [facility]) in a manner consistent with CLIA requirements. One or more of these tests may not have been cleared or approved by the FDA. The [facility] Department of Pathology and Laboratory Medicineis regulated under CLIA as qualified to perform high-complexity testing. These tests are used for clinical purposes. These should not be regarded as investigational or for research. Positive and negative controls stain appropriately.04/30/2025 11:12 AM EST [facility] LABSpecimen (Source)Anatomical Location / Laterality Collection Method / VolumeCollection TimeReceived TimeBlocks or SlidesMICROSCOPE SLIDE / Aeqlnou1104/29/2025 9:49 AM EST04/29/2025 9:48 AM EST Narrative Authorizing ProviderResult TypeResult StatusImad Asaad MDSURGICAL PATHOLOGYFinal ResultPerforming OrganizationAddressCity/State/ZIP CodePhone Number [facility] [address] [place] [id number], from Last 3 Months Insurance
--- OUTSIDE RECORDS SUMMARY | 2025-05-07 10:43 | XMS_ITS | CCD ---
Author Organization [facility] Care Team Providers Care Active Directory Systems Administrator Name Role Phone BOGDAN PRUITT Primary Care Physician [phone] DR BOGDAN PRUITT Primary Care Unavailable FRANCISCA ., DIMAS Admitting [...] Unavailable BALL, DR MCFADDEN Consulting Unavailable Bogdan Pruitt Unavailable Johana GARCIA Attending Unavailable Klarissa MCMANUS, Dm Santos Attending Unavailable Klarissa MCMANUS, Dm Santos Attending Unavailable Klarissa MCMANUS, Dm Santos Attending Unavailable Klarissa MCMANUS, Dm Santos Attending Unavailable Bogdan Pruitt DO Primary Care Unavail able Bogdan Pruitt DO Primary Care Provider [phone] Bogdan Pruitt DO Attending Provider Unavailable Primary Care Provider ORIN Rajput Attending Unavailable Ball DO, Bogdan Primary Care Provider [phone] Bogdan Pruitt DO Attending Provider Victor Manuel Ohara MD Attending Provider Victor Manuel Ohara MD Other Provider Bogdan Pruitt Primary Care Unavailable Victor Manuel Ohara Attending Unavailable Asajude Imjude Admitting Unavailable Allergies Allergy ClassificationReported Allergen(s)Allergy TypeDate of OnsetReaction(s) Facility (2 sources)patient allergy list reviewed by nurse or physiciaPropensity to adverse gxydfeuvk66-45-1328Ntnamtk:[facility] (formerly [facility]) Other (2 sources)No Known Medication Allergies; Translations: [No Known Medication Allergies]Propensity to adverse reactions (disorder)[facility] Medications Current Medications MedicationDrug Class(es)DatesSig (Normalized)Sig (Original)allopurinol 100 mg oral tablet (20 sources)Xanthine Oxidase InhibitorStart: 19-85-2592gbdp 1 tablet by mouth once dailyAllopurinol 100 mg tablet Active 100 MG PO Daily 90 90 3 March 07, 2025 4:00pm Complies with drug therapyStart: 03-10-2024 End: 05-49-2459kvrb 1 tablet by mouth once dailyAllopurinol 100 mg tablet Discontinued 0 .ROUTE .COMPLEX 30 March 10, 2024 6:38am March 07, 2025 4:01pm TAKE 1 TABLET BY MOUTH EVERY DAY FOR 30 DAYSStart: 07-27-2023 End: 36-78-2405paxb 1 tablet by mouth once dailyAllopurinol 100 mg tablet Discontinued 1 TAB PO Daily July 27, 2023 12:00am March 10, 2024 6:38am FreeTextSi tablet Orally Once a day; Note: Source Status: Taking; Refills: 12; Qty: 30 Tablet; Provider: Edmond Mcfadden EStart: 35-65-2191xyic 1 mg by mouth twice dailyallopurinol 100 mg Tab mg tab(s), Oral, BID, Refills(s) 0 Start Date: 10/06/21 Status: OrderedamLODIPine 5 mg oral tablet (20 sources)Dihydropyridine Calcium Channel BlockerStart: 02-54-8496akwg 1 tablet by mouth once dailyamLODIPine (Norvasc) 5 MG tablet TAKE 1 TABLET BY MOUTH EVERY DAY FOR 90 DAYS 01/07/2025 ActiveStart: 40-70-1511cypo 1 tablet by mouth once dailyAmlodipine 5 mg tablet Active 0 .ROUTE .COMPLEX 90 3 February 12, 2024 6:38am TAKE 1 TABLET BY MOUTH EVERY DAY FOR 90 DAYS Complies with drug therapyStart: 10-22-2022 End: 63-11-1822cxyt 1 tablet by mouth once dailyAmlodipine 5 mg tablet Discontinued 1 TAB PO Daily July 27, 2023 12:00am February 12, 2024 6:38am FreeTextSi tablet Orally Once a day; Note: Source Status: Continue; Provider: Edmond Mcfadden ( )atorvastatin 10 mg oral tablet (20 sources)HMG-CoA Reductase InhibitorStart: 38-85-2089jhho 1 tablet by mouth once dailyatorvastatin (Lipitor) 10 MG tablet Take 10 mg by mouth Daily 02/24/2025 ActiveStart: 11-89-3247qxro 1 tablet by mouth once dailyAtorvastatin 10 mg tablet Active 0 .ROUTE .COMPLEX 30 11 July 07, 2024 7:30am TAKE 1 TABLET BYMOUTH EVERY DAY Complies with drug therapyStart: 11-09-2022 End: 76-12-1207dsgq 1 tablet by mouth once dailyAtorvastatin 10 mg tablet Discontinued 1 TAB PO Daily July 27, 2023 12:00am July 07, 2024 7:30am FreeTextSig: TAKE 1 TABLET BY MOUTH EVERY DAY; Note: Source Status: Start; Refills: 11; Qty: 30 Tablet; Provider: Edmond Mcfadden ( ) brimonidine tartrate 2 mg/ml ophthalmic solution (2 sources)alpha-Adrenergic AgonistStart: 40-51-4525mmxf 1 drop(s) into the eye(s) twice dailyBrimonidine 0.2 % drops Active 1 DROPS EYE-BOTH Twice daily April 11, 2025 11:00pm Complies with drug therapyStart: 27-59-4416vgiz 1 drop(s) into the eye(s) twice dailybrimonidine (AlphaGAN P) 0.2 % ophthalmic solution PLACE 1 DROP INTO BOTH EYES TWICE A DAY 12/06/2024 ActiveDulaglutide 3 mg/0.5 mL pen injector (4 sources)Start: 91-14-2181Ytkvovagkal 3 mg/0.5 mL pen injector Active 3 MG SUBCUT every week 2 September 07, 2024 5:59pmStart: 07-22-2024 End: 42-22-6541Nsekbwmyeed 3 mg/0.5 mL pen injector Discontinued 3 MG SUBCUT every week 2 July 22, 2024 2:01pm September 07, 2024 5:59pmStart: 07-21-2024 End: 94-16-5524Wpmzmduhset 3 mg/0.5 mL pen injector Discontinued 1.5 MG SUBCUT every week 1 July 21, 2024 10:04am July 22, 2024 2:02pmStart: 04-21-2024 End: 34-09-3494Eiqhilbbsqj 3 mg/0.5 mL pen injector Discontinued 3 MG SUBCUT every week 2 April 21, 2024 5:16pm May 18, 2024 11:09amfinasteride 5 mg oral tablet (20 sources)5-alpha Reductase InhibitorStart: 05-18-2024 End: 32-41-8717dkvn 1 tablet by mouth once dailyfinasteride (Proscar) 5 MG tablet Take 5 mg by mouth Daily 03/07/2025 ActiveStart: 07-27-2023 End: 19-94-2853safx 1 tablet by mouth twice dailyFinasteride 5 mg tablet Discontinued 1 TAB PO Twice daily July 27, 2023 12:00am May 10:23am FreeTextSi tablet Orally twice a day; Note: Source Status: Taking; Provider: Edmond Mcfadden ( )Start: 11-09-2022 End: 02-36-5908lrba 1 tablet by mouth once dailyfinasteride 5 mg Tab 5 mg = 1 tab(s), Oral, Daily, X 90 day(s), # 90 tab(s), Refills(s) 3, Pharmacy: [facility]/pharmacy #[id number], 195, cm, 11/09/22 11:00:00 EDT, Height/Length Dosing, 111, kg, 05/26/23 11:00:00 EDT, Weight Dosing Start Date: 11/09/22 Stop Date: 11/04/23 Status: OrderedStart: 31-66-9552kxce 1 tablet by mouth once dailyfinasteride 5 mg Tab 5 mg = 1 tab(s), Oral, Daily, # 90 tab(s), Refills(s) 3, Pharmacy: [facility]/pharmacy #[id number], 195, cm, 10/06/21 8:16:00 EDT, Height/Length Dosing, 109.5, kg, 10/06/21 8:16:00 EDT, Weight Dosing Start Date: 10/06/21 Status: Ordered glimepiride 4 mg oral tablet (20 sources)SulfonylureaStart: 14-15-7459ytoy 2 tablets by mouth once daily at mealtimeglimepiride (Amaryl) 4 MG tablet TAKE 2 TABLETS BY MOUTH ONCE A DAY 30 MINUTES PRIOR TO FIRST MEAL OF THE DAY 03/07/2025 ActiveStart: 12-22-2023 End: 10-49-8110qsik 2 tablets by mouth once daily at mealtimeGlimepiride 4 mg tablet Active 0 .ROUTE .COMPLEX 60 December 31, 2024 7:35am TAKE 2 TABLETS BY MOUTH ONCE DAILY 30 MINUTES PRIOR TO FIRST MEAL OF THE DAY Complies with drug therapyStart: 07-27-2023 End: 72-38-8225fkmz 2 tablets by mouth once dailyGlimepiride 4 mg tablet Discontinued 2 TAB PO Daily July 27, 2023 12:00am October 28, 2023 4:39pm FreeTextSi tablets Orally once a day; Note: Source Status: Continue; Provider: Edmond Mcfadden EStart: 07-27-2023 End: 83-58-8833ined 1 tablet by mouth once dailyGlimepiride 4 mg tablet Discontinued 4 MG PO Daily 30 30 5 October 29, 2023 12:09pm December 22, 2023 1:14pm Start: 90-86-2377ngsdrcbheqc 4 mg Tab Refills(s) 0 Start Date: 11/09/22 Status: OrderedGlimepiride 4 MG 2 tablets taken 30 minutes prior to first meal of day Orally Once a day Activelatanoprost 0.05 mg/ml ophthalmic solution (5 sources)Prostaglandin AnalogStart: 61-53-8890ntrtmwitvbh (Xalatan) 0.005 % ophthalmic solution INSTILL 1 DROP INTO BOTH EYES BEFORE BED 01/07/2025 Active Start: 88-03-1254ynpt 1 drop(s) into the eye(s) once dailyLatanoprost 0.005 % drops Active 1 DROPS EYE-BOTH Daily February 17, 2024 11:00pm Complies with dr ug therapyStart: 91-21-8460hdmg 1 drop(s) into the eye(s) once dailyLatanoprost 0.005 % drops Active 1 DROPS EYE-BOTH Daily February 18, 2024 12:00amStart: 07-75-3084hfhe 1 drop(s) into the eye(s) once dailyLatanoprost Active 1 DROPS EYE-BOTH Daily February 18, 2024 12:00ammetFORMIN hydrochloride 1000 mg oral tablet (20 sources)BiguanideStart: 09-16-2023 End: 01-61-0778zfyv 1 tablet by mouth before breakfastMetformin 1,000 mg tablet Active 0 .ROUTE .COMPLEX 180 3 September 06, 2024 4:06pm TAKE 1 TABLET BY MOUTH BEFORE BREAKFAST AND EVENING MEAL Complies with drug therapyStart: 09-16-2023 take 1 tablet by mouth before breakfastMetformin Active 0 .ROUTE .COMPLEX 180 September 16, 2023 5:10pm TAKE 1 TABLET BY MOUTH BEFORE BREAKFAST AND EVENING MEAL Start: 03-25-2019 End: 15-02-9841lbqi 1 tablet by mouth twice daily at mealtimeMetformin 1,000 mg tablet Discontinued 1000 MG PO Twice daily with meals July 27, 2023 12:00am September 16, 2023 4:10pmMounjaro 2.5 MG/0.5ML solution auto-injector (1 source)Start: 25-99-9664hkpqjk 2.5 mg by subcutaneous injection every week Mounjaro 2.5 MG/0.5ML solution auto-injector INJECT 2.5MG SUBCUTANEOUSLY ONCE EVERY WEEK 02/10/2025tiveomeprazole 20 mg delayed release oral tablet (13 sources)Proton Pump InhibitorStart: 81-86-4335enhc 1 tablet by mouth once dailyOmeprazole Magnesium (Prilosec Otc) 20 mg tablet,delayed release (DR/EC) Active 20 MG PO Daily July 27, 2023 12:00am Complies with drug therapy omeprazole (PriLOSEC) [address] capsule Take 40 mg by mouth Activetake 1 tablet by mouth once dailyPriLOSEC OTC 20 MG 1 tablet 30 minutes before morning meal Orally Once a day ActiveOmeprazole Magnesium (Prilosec Otc) 20 mg tablet,delayed release (DR/EC) (3 sources)Start: 75-61-4121uctf 1 tablet by mouth once dailyOmeprazole Magnesium (Prilosec Otc) 20 mg tablet,delayed release (DR/EC) Active 20 MG PO Daily July 27, 2023 1:00amOneTouch Ultra - (19 sources)OneTouch Ultra - USE TO TEST BLOOD SUGAR ONCE A DAY for 50 Active paxlovid (300/100) 20 x 150 mg & 10 x 100mg tablet therapy pack (3 sources)Start: 11-92-4538Jopbmfxw (300/100) 20 x 150 MG & 10 x 100MG as directed Orally bid for 5 days Apr, ActivePen [place] 5/16 (15 sources)Start: 57-35-7458Sfjgd: 83-20-7280Cfe [place] 5/16 Use to inject insulin qd SC daily for 30 days Sep, Activetamsulosin hydrochloride 0.4 mg oral capsule (20 sources)alpha-Adrenergic BlockerStart: 88-11-0208uhjx 1 capsule by mouth every twenty-four hours in the morningtamsulosin (Flomax) 0.4 MG 24 hr capsule Take 0.4 mg by mouth in the morning and 0.4 mg before bedtime. 01/14/2025 Active Start: 10-06-2021 End: 55-63-2498jpkv 1 capsule by mouth twice dailyTamsulosin 0.4 mg capsule Discontinued 1 CAP PO Twice daily July 27, 2023 12:00am November 26, 2024 9:12am FreeTextSi capsule Orally twice a day; Note: Source Status: Taking; Provider: Edmond Mcfadden ( )telmisartan 40 mg oral tablet (4 sources)Angiotensin 2 Receptor BlockerStart: 87-31-7703jwur 1 tablet by mouth once dailytelmisartan (MIcarDIS) 40 MG tablet Take 40 mg by mouth Daily 02/20/2025 ActiveTirzepatide (3 sources)Start: 97-01-4995Omjiynqnptp (Mounjaro) 2.5 mg/0.5 mL pen injector Active 2.5 MG SUBCUT every week March 30, 2025 12:16pm for 4 weeks Complies with drug therapyStart: 02-09-2025 End: 95-05-1032Ksovbezntwi (Mounjaro) 2.5 mg/0.5 mL pen injector Discontinued 2.5 MG SUBCUT every week February 08, 2025 11:00pm March 30, 2025 12:16pm for 4 weeksStart: 58-64-2171Jhwlzxgbzhp (Mounjaro) 2.5 mg/0.5 mL pen injector Active 2.5 MG SUBCUT every week January 12:00am for 4 weeks Complies with drug therapy{20 (nirmatrelvir 150 MG Oral Tablet) / 10 (ritonavir 100 MG Oral Tablet) } Pack [Paxlovid 5-Day] (1 source)Start: 97-49-9950Dygipdjo (300/100) 20 x 150 MG & 10 x 100MG as directed Orally bid for 5 days Apr, Active Completed/Discontinued Medications MedicationDrug Class(es)DatesSig (Normalized)Sig (Original)ascorbic acid 4700 mg / polyethylene glycol 3350 980814 mg / potassium chloride 1015 mg / sodium asc orbate 5900 mg / sodium chloride 2690 mg / sodium sulfate 7500 mg powder for oral solution (19 sources)Osmotic Laxative, Vitamin CStart: 49-56-6134AhgmRlnw 100 GM as directed Orally as directed for 1 dose(s) Mar, Not-Taking/PRN azithromycin 250 mg oral tablet (10 sources)Macrolide AntimicrobialStart: 68-62-3042Idxjhvvufzvw 250 MG as directed Orally 2 tabs po today, then 1 tab daily x 4 more days for 5 Nov, Not-Taking/PRNbenazepril hydrochloride 20 mg oral tablet (20 sources)Angiotensin Converting Enzyme InhibitorStart: 02-12-2024 End: 50-68-5516slyl 1 tablet by mouth once dailyBenazepril 20 mg tablet Discontinued 0 .ROUTE .COMPLEX 90 3 February 12, 2024 6:38am May 18, 2024 10:19am TAKE 1 TABLET BY MOUTH EVERY DAY FOR 90 DAYSStart: 02-62-6326puua 1 tablet by mouth once dailyBenazepril Active 0 .ROUTE .COMPLEX 90 February 12, 2024 7:38am TAKE 1 TABLET BY MOUTH EVERY DAY FOR 90 DAYSStart: 07-27-2023 End: 66-57-7233kaoe 1 tablet by mouth once dailyBenazepril 20 mg tablet Discontinued 1 TAB PO Daily July 27, 2023 12:00am February 12, 2024 6:38am FreeTextSi tablet Orally Once a day; Note: Source Status: Continue; Provider: Edmond Mcfadden ( )Start: 95-75-3454ungi 1 tablet by mouth once dailybenazepril 5 mg oral tablet 5 mg = 1 tab(s), Oral, Daily Start Date: 03/25/19 Status: Orderedtake 1 tablet by mouth every twenty-four hours Benazepril HCl 10 MG 1 tablet Orally Once a day for 30 days Activebenzonatate 200 mg oral capsule (10 sources)Non-narcotic AntitussiveStart: 46-17-3978yobl 1 capsule by mouth every eight hoursBenzonatate 200 MG 1 capsule Orally Three times a day for 10 day(s) Nov, Not-Taking/PRNBlood Sugar Diagnostic (2 sources)Start: 08-16-2023 End: 28-50-0118Yihtg Sugar Diagnostic Discontinued 0 .Route 50 August 16, 2023 1:00am August 16, 2023 6:08pm As directedDulaglutide (20 sources)GLP-1 Receptor AgonistStart: 09-07-2024 End: 18-77-7994Adrnoctiipd 3 mg/0.5 mL pen injector Discontinued 3 MG SUBCUT every week 08 14 10September 07, 2024 4:59pm February 09, 2025 9:28amStart: 09-07-2024 End: 26-65-5353Gsylahlvnuz 3 mg/0.5 mL pen injector Discontinued 3 MG SUBCUT every week 2 September 07, 2024 5:59pm February 09, 2025 10:28amStart: 07-22-2024 End: 94-25-6738Eblausugnvz 3 mg/0.5 mL pen injector Discontinued 3 MG SUBCUT every week 2 11 11July 22, 2024 1:01pm September 07, 2024 4:59pmStart: 07-22-2024 End: 58-79-5607Blggcmvmaxw 3 mg/0.5 mL pen injector Discontinued 3 MG SUBCUT every week 2 July 22, 2024 2:01pm September 07, 2024 5:59pmStart: 07-21-2024 End: 06-37-7769Sedegxalfip 3 mg/0.5 mL pen injector Discontinued 1.5 MG SUBCUT every week 1 11 11July 21, 2024 9:04am July 22, 2024 1:02pmStart: 07-21-2024 End: 61-76-6435Bzmekmiotwb 3 mg/0.5 mL pen injector Discontinued 1.5 MG SUBCUT every week 1 July 21, 2024 10:04am July 22, 2024 2:02pmStart: 05-18-2024 End: 30-44-3597Nxnxiwidflz 1.5 mg/0.5 mL pen injector Discontinued 1.5 MG SUBCUT every week 2 11 11May 18, 2024 10:07am July 21, 2024 9:04amStart: 04-21-2024 End: 71-64-4399Tazsxcwslsb 3 mg/0.5 mL pen injector Discontinued 3 MG SUBCUT every week 2 14 08April 21, 2024 4:16pm May 18, 2024 10:09amStart: 04-21-2024 End: 07-48-8292Cqwlzwsadup 3 mg/0.5 mL pen injector Discontinued 3 MG SUBCUT every week 2 April 21, 2024 5:16pm May 18, 2024 11:09amStart: 12-03-2023 End: 66-18-0704Fcljeumidec (Trulicity) 1.5 mg/0.5 mL pen injector Discontinued 1.5 MG SUBCUT every week 2 14 08March 20, 2024 11:40am April 21, 2024 4:16pmStart: 10-28-2023 End: 27-33-3939Aocanrbiuiv (Trulicity) 0.75 mg/0.5 mL pen injector Discontinued 1.5 MG SUBCUT every week 13 90 0 October 28, 2023 4:39pm December 03, 2023 10:24am Start: 07-27-2023 End: 24-21-1264Kmhqiitqctz (Trulicity) 0.75 mg/0.5 mL pen injector Discontinued 0.75 MG SUBCUT every week 2 0 July 30, 2023 11:46am September 02, 2023 4:01pmStart: 52-62-3958ficmbm 1.5 mg by subcutaneous injection every week Trulicity 1.5 MG/0.5ML 1.5MG Subcutaneous weekly for 28 days Jun, Active Start: 86-49-7669eqexjh 0.75 mg by subcutaneous injection every weekTrulicity 0.75 MG/0.5ML 0.75 MG Subcutaneous weekly for 28 days Jun, ActiveStart: 36-60-5164clnzrs 1.5 mg by subcutaneous injection every weekTrulicity 1.5 MG/0.5ML 1.5mg Subcutaneous weekly for 28 days Aug, ActiveStart: 65-45-8616Gbbiwgejn Pen SubCutaneous, qWeek, Refills(s) 0 Start Date: 10/03/20 Status: OrderedTrulicity 3 MG/0.5ML INJECT 1 PEN UNDER THE SKIN ONCE A WEEK for 28 Not-Taking/PRNTrulicity 3 MG/0.5ML INJECT 1 PEN UNDER THE SKIN ONCE A WEEK for 28 Not-TakingTrulicity 3 MG/0.5ML INJECT 1 PEN UNDER THE SKIN ONCE A WEEK for 28 Active3 ml insulin glargine 100 unt/ml pen injector (20 sources)Insulin AnalogStart: 08-23-2023 End: 61-10-9547Khyuifs Glargine (Lantus Solostar U-100 Insulin) 100 unit/mL (3 mL) insulin pen Discontinued 30 UNIT SUBCUT Every evening 9 30 5 August 23, 2023 1:30pm June 15, 2024 10:18pmStart: 85-81-0552Tvtnks Solostar Pen 100 units/mL subcutaneous solution Refills(s) 0 Start Date: 11/09/22 Status: Ordered Start: 09-25-2022 End: 64-14-0361trdtzt 10 [IU] by subcutaneous injection once at bedtimeInsulin Glargine (Basaglar Kwikpen U-100 Insulin) 100 unit/mL (3 mL) insulin pen Discontinued UNIT SUBCUT July 27, 2023 12:00am February 18, 2024 8:43am FreeTextSi units Subcutaneous q HS; Note: Source Status: Not-Taking\PRN; Refills: 5; Qty: 1 Each; Provider: Edmond Mcfadden EStart: 32-83-1149Ofjgvt SoloStar 100 UNIT/ML 25 units Subcutaneous q HS Sep, ActiveStart: 30-71-5296jojfrsiqxovr 15 mg oral tablet (17 sources)Peroxisome Proliferator Receptor alpha Agonist, Peroxisome Proliferator Receptor gamma Agonist, ThiazolidinedioneStart: 77-45-5814yhca 1 tablet by mouth every twenty-four hoursPioglitazone HCl 15 MG 1 tablet Orally Once a day for 30 days Sep, Not-Taking/PRNSod Picosulf-Mag Ox-Citric Ac (1 source)Start: 02-16-2025 End: 20-43-7749yyua 1 dose by mouth once daily in the eveningSod Picosulf-Mag Ox-Citric Ac (Clenpiq) 10 mg-3.5 gram- 12 gram/175 mL solution Discontinued 175 MLPO Daily 350 0 0 February 15, 2025 11:00pm April 26, 2025 9:02am Take the first dose at 3:00p.m. the day before the colonoscopy, take the second dose at 9:00 p.m. the day before the colonoscopy Problems Active Problems Problem ClassificationProblemDateDocumented DateEpisodic/ChronicCoagulation and hemorrhagic disorders (13 sources)Primary thrombocytopenia; Translations: [Primary thrombocytopenia, unspecified]Onset: 15-99-6843YiqkpcgZwduxhamzn associated with dizziness or vertigo (1 source)Dizziness and giddiness; Translations: [DIZZINESS AND GIDDINESS]Onset: 78-41-0449RnnbcljiFrlkibkt mellitus with complications (20 sources)Type 2 diabetes mellitus with hyperglycemia; Translations: [Type 2 diabetes mellitus]Onset: 90-79-9022GieqprsGkfmygwv mellitus without complication (16 sources)Diabetes mellitus; Translations: [Type 2 diabetes mellitus without complications]Onset: 328474-85-5173LvqcxjoFfqaffvpx of lipid metabolism (20 sources)Pure hypercholesterolemia, unspecified; Translations: [Hypercholesterolemia]Onset: 28-98-4953CcitouaQmsdicquly disorders (20 sources)Gastro-esophageal reflux disease with esophagitis; Translations: [Gastroesophageal reflux disease with esophagitis without hemorrhage]07-27-2023 ChronicEssential hypertension (20 sources)Essential (primary) hypertension; Translations: [Essential hypertension]Onset: 19-25-4847OcwazkaPebvnii on above:Echo: LVEF 55%, normal RV size/function, LVH, ZAYNAB, RVSP 02/2024Genitourinary symptoms and ill-defined conditions (4 sources)Blood in urine; Translations: [Nocturia]43-17-3111ZbmqopssEipv and other crystal arthropathies (8 sources)Gout; Translations: [Idiopathic gout, right knee]Onset: 04-18-2022 81-96-5558JitzyssAkuusfojrmo of prostate (12 sources)Benign prostatic hypertrophy with outflow obstruction; Translations: [Benign prostatic hyperplasia with lower urinary tract symptoms]Onset: 31-57-5655FluvndaWlfcafraw of unspecified nature or uncertain behavior (1 source)Neoplastic disease; Translations: [Neoplasm of unspecified behavior of bone, soft tissue, and skin]22-84-2028RhdsjedyEhynqvueydu chest pain (5 sources)Chest pain; Translations: [Other chest pain]Onset: 06-07-2015 44-47-3055ZyrmbhydIdjuyzfrwwnfch (4 sources)Osteoarthritis of knee; Translations: [Bilateral primary osteoarthritis of knee]Onset: 92-87-0127UbmzypnIbeyf aftercare (1 source)Other long term care social worker (current) drug therapy; Translations: [OTH ASSISTED CURRENT DRUG THERAPY]Onset: 59-73-3566FoozgzlhNtzbu aftercare (1 source)snf (current) use of oral hypoglycemic drugs; Translations: [CLASSIFIER USE ORAL HYPOGLYCEMIC DX]Onset: 28-09-1506LvwbtpjcNsraq aftercare (15 sources)Long-term current use of insulin; Translations: [snf (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]EpisodicOther aftercare (2 sources)terminal gauger (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EpisodicOther aftercare (2 sources)Long-term current use of drug therapy; Translations: [Other snf (current) drug therapy]EpisodicOther and unspecified benign neoplasm (13 sources)Tubular adenoma of colon; Translations: [Tubular adenoma of colon] EpisodicOther and unspecified benign neoplasm (19 sources)Benign neoplasm of colon; Translations: [Benign neoplasm of descending colon]EpisodicOther and unspecified benign neoplasm (2 sources)Benign neoplasm of descending colon; Translations: [Benign neoplasm of descending colon]EpisodicOther connective tissue disease (3 sources)Personal history of other diseases of the musculoskeletal system and connective tissueEpisodicOther connective tissue disease (2 sources)H/O: musculoskeletal disease; Translations: [Personal history of other diseases of the musculoskeletal system and connective tissue]EpisodicOther lower respiratory disease (6 sources)Dyspnea; Translations: [Dyspnea, unspecified]54-42-2229AtjbvijxQzfyt lower respiratory disease (1 source)Dyspnea, unspecified; Translations: [Other respiratory abnormalities] 28-21-1179IielxqbaJccgf nutritional; endocrine; and metabolic disorders (13 sources)Body mass index 30+ - obesity; Translations: [Body mass index (BMI) 31.0-31.9, adult]ChronicOther nutritional; endocrine; and metabolic disorders (10 sources)Obesity caused by energy imbalance; Translations: [Other obesity due to excess calories]ChronicOther nutritional; endocrine; and metabolic disorders (2 sources)Other obesity due to excess caloriesChronicOther nutritional; endocrine; and metabolic disorders (1 source)Body mass index (BMI) 31.0-31.9, adultChronicOther nutritional; endocrine; and metabolic disorders (7 sources)Obesity; Translations: [Obesity, unspecified]Onset: 12-15-2013 07-09-5649HkgjppfCxneq nutritional; endocrine; and metabolic disorders (1 source)Body mass index (BMI) 32.0-32.9, adultChronicOther nutritional; endocrine; and metabolic disorders (1 source)Obesity, unspecified; Translations: [Obesity, unspecified]10-18-2023 ChronicOther nutritional; endocrine; and metabolic disorders (4 sources)Overweight; Translations: [Overweight]Onset: 85-15-4302ZtnctuloQneei screening for suspected conditions (not mental disorders or infectious disease) (12 sources)Raised prostate specific antigen; Translations: [Elevated prostate specific antigen [PSA]]Onset: 68-51-7132NecedhkrTmwlvzt on above:PSA: 0.8 - 04/2024Other skin disorders (1 source)Actinic keratosis; Translations: [Actinic keratosis]90-61-7060Nrgkzujt Other upper respiratory disease (3 sources)Vasomotor rhinitis; Translations: [Vasomotor rhinitis]Chronic Spondylosis; intervertebral disc disorders; other back problems (20 sources)Lumbar spondylosis; Translations: [Spondylosis without myelopathy or radiculopathy, lumbar region]ChronicUnclassified (1 source)CONTACT W/AND (SUSP) EXPOS COVID-19; Translations: [CONTACT W/AND (SUSP) EXPOS COVID-19]Onset: 50-67-3472Yzjbxkccyvnt (1 source)Patient encounter statusUnclassified (2 sources)Z12.11 - Encounter for screening for malignant neoplasm of colon Past or Other Problems Problem ClassificationProblemDateDocumented DateEpisodic/ChronicAcute bronchitis (2 sources)Acute bronchitis; Translations: [Acute bronchitis, unspecified]Onset: 20-79-0969UqtohefcGyqrmplqqm disorders (5 sources)Esophageal disorders; Translations: [Gastro-esophageal reflux disease with esophagitis, without bleeding]Hemorrhoids (4 sources)External hemorrhoids; Translations: [External hemorrhoids with other complication]Onset: 17-19-5002NyfrtzraGnmnh disorders and dislocations; trauma-related (2 sources)Current tear of medial cartilage AND/OR meniscus of knee; Translations: [Tear of medial cartilage or meniscus of knee, current]Onset: 32-17-0571VklrcsghCceztzn and fatigue (6 sources)Weakness; Translations: [Malaise and fatigue]Onset: 04-26-2018 EpisodicOther connective tissue disease (2 sources)Disorder of soft tissue; Translations: [Other specified soft tissue disorders]Onset: 47-83-6816TlemzduvHtkhi lower respiratory disease (2 sources)Cough; Translations: [Cough, unspecified]Onset: 85-53-1389Yimsftkh Other non-traumatic joint disorders (2 sources)Arthralgia of the lower leg; Translations: [Pain in unspecified knee] Onset: 34-09-8944CggloudyZtobx nutritional; endocrine; and metabolic disorders (4 sources)Body mass index 25-29 - overweight; Translations: [Body mass index 28.0-28.9, adult]Onset: 35-96-2540UzdtwoxmNejqnkga veins of lower extremity (4 sources)Venous varices; Translations: [Asymptomatic varicose veins]Onset: 50-71-6030SvvhzcteWkwlq infection (1 source)COVID-19 Results Test NameValueInterpretationReference RangeFacilityGlucose Poct Glucometerson 24-77-8436Ggycutj9Lao1: Cleaned MeterNoUNC Health Johnston Clayton Physician GroupComment on above:Result Comment: PERFORMED BY: [facility] [address] [place] [address] PATHOLOGIST FURNACE CHARGING MACHINE OPERATOR CAROL CARTAGENA M.D.Performed By: #### GLULS #### Point of Care testing ,Glucose [Mass/Vol]224 mg/dLHalifax Health Medical Center of Daytona Beach Physician GroupComment on above: Result Comment: Random Glucose Reference Range is dependent on time and content of last meal. Glucose of more than 200 mg/dL in a nonstressed, ambulatory subject supports the diagnosis of Diabetes Mellitus.Performed By: #### GLULS #### Point of Care testing ,Neil 04-26-2025 Specimen: [id number] Received: 04/26/25 Status: ARINA Antonio Num: [id number] Spec Type: Surgical Subm Dr: Victor Manuel Ohara MD Tissues: A Colon Biopsy (ASCENDING POLYP) B Colon Biopsy (DESCENDING POLYP) Procedures: DONAVON/Jacob, Gross/Micro L4/2 Age/ Patient Sex Location Account Attending Physician Esdras Correa [address] [place] [address] [id number] Victor Manuel Ohara MD SPEC NUM: [id number] RECD: 04/26/25 STATUS: ARINA ROSARIO NUM: [id number] JAMIE: 04/26/25 [facility] DR: Victor Manuel Ohara MD ENTERED: 04/26/25 [facility] [address]: EDSON TYPE: Surgical DEPT: S ENTERED BY: [id number] RECV BY: [id number] ORDERED: HE/4, Gross/Micro L4/2 ORDERED: HE/4, Gross/Micro L4/2 Pathological Diagnosis A. 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 - See Comment. B. Colon, descending, polypectomy: - Fragments of tubular adenoma. Comment: Clinical and endoscopic correlation is required. Recommend complete excise for further evaluation if clinically indicated. Clinical Information History of colon polyps Gross Description Part A is received in formalin labeled with the patient's date of , and Dreger, kike polyp are 2 dent-altamirano, focally erythematous, friable, 0.5 and 0.7 cm in greatest dimension polypoid fragments with adherent vegetative material. The largest polyp is inked black with the smaller polyp inked green. The specimens are bisected, and entirely submitted in a single cassette. The vegetative material is retained. Specimen: [id number] Received: 04/26/25 Status: ARINA Rosario Num: [id number] Spec Type: Surgical Subm Dr: Victor Manuel Ohara MD Tissues: A Colon Biopsy (ASCENDING POLYP) B Colon Biopsy (DESCENDING POLYP) Procedures: /Jacob, Gross/Micro L4/2 Patient: Esdras Correa [id number] (Continued) Specimen: [id number] Received: 04/26/25 (Continued) Gross Description (Continued) Signed (signature on file) Anish Peter MD 04/27/251145 Specimen: [id number] Received: 04/26/25 Status: ARINA Rosario Num: [id number] Spec Type: Surgical Subm Dr: Victor Manuel Ohara MD Tissues: A Colon Biopsy (ASCENDING POLYP) B Colon Biopsy (DESCENDING POLYP) Procedures: HE/4, Gross/Micro L4/2 Patient: Esdras Correa [id number] (Continued) Specimen: [id number] Received: 04/26/25 (Continued) Gross Description (Continued) (1, ns, [id number] A) Part B is received in formalin labeled with the patient's date of , and Madeline, laron polyp are 4 dent-altamirano, focally erythematous, friable, 0.2 to 0.5 cm in greatest dimension polypoid fragments. The largest polyp is inked black with the smaller polyps differentially inked blue, green, and orange. The largest polyp is bisected and entirely submitted in a single cassette with the smaller polyps intact. (1, ns, [id number] B) Microscopic Description A B: Microscopic examination is performed. CPT Codes 67454 x2 Specimen: [id number] Received: 04/26/25 Status: ARINA Rosario Num: [id number] Spec Type: Surgical Subm Dr: Victor Manuel Ohara MD Tissues: A Colon Biopsy (ASCENDING POLYP) B Colon Biopsy (DESCENDING POLYP) Procedures: DONAVON/Jacob, Torito/Micro L4/2 Patient: Esdras Correa [id number] (Continued) Signed (signature on file) Anish Peter MD 04/27/25 1146Normal [facility] Physician GroupCryotherapy, skin lesionon 22-34-1102EAHN HealthcareLesion biopsyon 59-00-3006Fqot of biopsy: tangential Informed consent: discussed and consent obtained Informed consent comment: The risks and benefits of the biopsy were discussed. Risks include but are not limited to bleeding, infection, scarring, pain, and nerve damage. An opportunity to ask questions prior to the procedure was permitted and all questions were answered. Patient was prepped and draped in usual sterile fashion: area cleansed with alcohol. Anesthesia: the lesion was anesthetized in a standard fashion Anesthetic: 1% lidocaine w/ epinephrine 1-100,000 buffered w/ 8.4% NaHCO3 Instrument used: DermaBlade Hemostasis achieved with: electrodesiccation Outcome: patient tolerated procedure well Outcome comment: The specimen was placed in a prelabeled formalin container to be sent for pathology Post-procedure details: sterile dressing applied and wound care instructions given Post-procedure details comment: Emphasized need to contact clinic for any signs of infection, uncontrollable bleeding, or complications. Dressing type: bandage Additional details: Photo taken Amount of lidocaine used: 1.0 [facility]SalemGlucose mean value [Mass/volume] in Blood Estimated from glycated hemoglobinOrdered By: Bogdan Pruitt on 18-06-9563Nxszeaj glucose Estimated from glycated hemoglobin (Bld) [Mass/Vol]160 mg/dLHarrison Community HospitalHemoglobin A1c percentage Ordered By: Bogdan Pruitt on 32-82-2736IoR8o (Bld) [Mass fraction]7.2 %High 4.5-6.2FKettering Health MiamisburgComment on above:ADA RECOMMENDED LIMIT 4.0 - 6.0ADA THERAPEUTIC TARGET < 7.0ACTION SUGGESTED> 7.0Glucose mean value [Mass/volume] in Blood Estimated from glycated hemoglobinon 25-79-2779Jxynths glucose Estimated from glycated hemoglobin (Bld) [Mass/Vol]Glucose mean value [Mass/volume] in Blood Estimated from glycated hemoglobinHarrison Community HospitalHemoglobin A1c percentageon 87-60-1351BlB5f (Bld) [Mass fraction] Hemoglobin A1c percentageHigh4.5-6.2FKettering Health MiamisburgComment on above:ADA RECOMMENDED LIMIT 4.0 - 6.0ADA THERAPEUTIC TARGET < 7.0ACTION SUGGESTED> 7.0POC Glucose Randomon 60-84-8170Kazthon [Mass/Vol]147 mg/dLHigh 70-99Chillicothe Va Medical CenterComment on above:Performed By: #### [id number] #### [facility] [address] [place], [place] [address]Tybuouf mean value [Mass/volume] in Blood Estimated from glycated hemoglobinon 01-56-0870Esqxbnd glucose Estimated from glycated hemoglobin (Bld) [Mass/Vol]169 mg/dLHarrison Community HospitalLaboratory - Hematology and Cell countson 85-07-6077JoW1k (Bld) [Mass fraction]7.5 %High 4.5-6.2FKettering Health MiamisburgComment on above:ADA RECOMMENDED LIMIT 4.0 - 6.0ADA THERAPEUTIC TARGET < 7.0ACTION SUGGESTED> 7.0Glucose mean value [Mass/volume] in Blood Estimated from glycated hemoglobinon 72-10-2720Bikuypa glucose Estimated from glycated hemoglobin (Bld) [Mass/Vol]180 mg/dLHarrison Community HospitalLaboratory - Hematology and Cell countson 40-66-1630WeT7i (Bld) [Mass fraction]7.9 %4.5-6.2FKettering Health MiamisburgComment on above:ADA RECOMMENDED LIMIT 4.0 - 6.0ADA THERAPEUTIC TARGET < 7.0ACTION SUGGESTED> 7.0GLYCOHEMOGLOBIN A1Con 19-94-8161YJE RECOMMENDATIONSEE BELOWNormal The [facility] HospitalComment on above:Result Comment: ADA RECOMMENDED LIMIT 4.0 - 6.0 ADA THERAPEUTIC TARGET < 7.0 ACTION SUGGESTED > 7.0Performed By: #### BMP, LIPID, ALT, URIC #### [facility] [address] [address] [address] Jorge L CareyGlucose [Mass/Vol]148 mg/dLNormalThClermont County HospitalComment on above:Performed By: #### BMP, LIPID, ALT, URIC #### [facility] [address] [place], [place] [address] Dr. Jorge L CareyHbA1c (Bld) [Mass fraction]6.8 %Critically high4.5-6.2The [facility] on above:Performed By: #### BMP, LIPID, ALT, URIC #### [facility] [address] [address] [address] Jorge L Huston DANAY ADMITon 30-24-2624ST [Catalytic activity/Vol]59 U/L Xzsvzy74-180Atn [facility]. Bing, MD, Cancer Centerment on above:Performed By: #### CMP, CMADM #### [facility] [address] [place] [address] Dr. Jorge L Ellis.MB [Mass/Vol]0.99 ng/mLNormal<=3.60[facility] Comment on above:Performed By: #### CMP, CMADM #### [facility] [address] [place] [address] Dr. Jorge L WattsTROP10.0 pg/mLNormal4.0-76.1[facility] on above:Result Comment: CUT-OFF POINTS HAVE BEEN ESTABLISHED BASED ON THE FOURTH UNIVERSAL DEFINITIONS OF MYOCARDIAL INFARCTION. THE UPPER REFERENCE LIMIT (URL) OF TROPONIN, DEFINED THE 99TH PERCENTILE OF cTnI DISTRIBUTION IN A REFERENCE POPULATION, HAS BEEN CONFIRMED THE DECISION THRESHOLD FOR MT DIAGNOSIS.Performed By: #### CMP, CMADM #### [facility] [address] [place] [address] Dr. Jorge L ChiangO52 ng/eGZurqhl10-08Gbt [facility] on above: Performed By: #### CMP, CMADM #### [facility] [address] [place] [address] Dr. Jorge L Marks AUTO DIFFon 25-78-5317BDXE #0.0 103/ulNormal0.0-0.1The [facility] HospitalComment on above:Performed By: #### BMP, LIPID, ALT, URIC #### [facility] [address] [place] [address] Dr. Jorge L Rootsophils/100 WBC (Bld)0.3 %Normal0.2-2.0[facility] Comment on above:Performed By: #### BMP, LIPID, ALT, URIC #### [facility] [address] [place] [address] Dr. Jorge L Leong #0.1 103/ulNormal0.0-0.7The [facility] HospitalComtrinity health mus[facility] hospital on above: Performed By: #### BMP, LIPID, ALT, URIC #### [facility] [address] [place] [address] Dr. Jorge L Mckeonosinophils/100 WBC (Bld)0.9 %Normal0.9-7.0[facility] Comment on above:Performed By: #### BMP, LIPID, ALT, URIC #### [facility] [address] [place] [address] Dr. Jorge L Mckeonrythrocyte distribution width (RBC) [Ratio]11.7 %Fcbxau65.0-15.0 The [facility] HospitalComment on above:Performed By: #### BMP, LIPID, ALT, URIC #### [facility] [address] [place] [address] Dr. Jorge L CareyHematocrit (Bld) [Volume fraction]41.1 %Critically low42.0-54.0 The [facility] HospitalComment on above:Performed By: #### BMP, LIPID, ALT, URIC #### [facility] [address] [place] [address] Dr. Jorge L CareyHemoglobin (Bld) [Mass/Vol]14.5 g/iLXjsezd12.0-18.0The [facility] HospitalComment on above:Performed By: #### BMP, LIPID, ALT, URIC #### [facility] [address] [place] [address] Dr. Jorge L Padilla #0.02 10e3/ulNormal0.00-0.03The [facility] HospitalComment on above:Performed By: #### BMP, LIPID, ALT, URIC #### [facility] [address] [place] [address] Dr. Jorge L Padilla %0.3 %Normal0.0-0.5The [facility] HospitalComment on above: Performed By: #### BMP, LIPID, ALT, URIC #### [facility] [address] [place] [address] Dr. Jorge L Cooper #1.1 103/ulCritically low1.2-3.8The [facility] Comment on above:Performed By: #### BMP, LIPID, ALT, URIC #### [facility] [address] [place] [address] Dr. Yilan ChangLymphocytes/100 WBC (Bld)16.6 %Critically low20.5-60.0The [facility] HospitalComment on above:Performed By: #### BMP, LIPID, ALT, URIC #### [facility] [address] [place] [address] Dr. Jorge L Arenas DIFF REQNONormalThe [facility] HospitalComment on above: Performed By: #### BMP, LIPID, ALT, URIC #### [facility] [address] [address] [address] Jorge L Alvarado (RBC) [Entitic mass]30.1 pjGijeuo91.9-34.0The [facility] HospitalComment on above:Performed By: #### BMP, LIPID, ALT, URIC #### [facility] [address] [place] [address] Dr. Jorge L Alvarado (RBC) [Mass/Vol]35.3 g/dLCritically high29.9-35.2The [facility] HospitalComment on above:Performed By: #### BMP, LIPID, ALT, URIC #### [facility] [address] [place] [address] Dr. Jorge L Perez (RBC) [Entitic vol]85.4 yELiumui55.0-94.0The [facility] HospitalComment on above:Performed By: #### BMP, LIPID, ALT, URIC #### [facility] [address] [place] [address] Dr. Jorge L Valencia #0.4 103/ulNormal0.3-0.8The [facility] HospitalComment on above:Performed By: #### BMP, LIPID, ALT, URIC #### [facility] [address] [place] [address] Dr. Jorge L Melgarocytes/100 WBC (Bld)5.1 %Normal1.7-12.0The [facility] Comment on above:Performed By: #### BMP, LIPID, ALT, URIC #### [facility] [address] [place] [address] Dr. Jorge L Colorado #5.3 103/ulNormal1.4-6.5The [facility] HospitalComment on above:Performed By: #### BMP, LIPID, ALT, URIC #### [facility] [address] [place] [address] Dr. Jorge L Nguyenutrophils/100 WBC (Bld)76.8 %Critically high43.0-75.0The [facility] HospitalComment on above:Performed By: #### BMP, LIPID, ALT, URIC #### [facility] [address] [place] [address] Dr. Jorge L CareyPlatelet mean volume (Bld) [Entitic vol]12.1 fLNormal9.5-13.5The [facility] HospitalComment on above:Performed By: #### BMP, LIPID, ALT, URIC #### [facility] [address] [place] [address] Dr. Jorge L CareyPLT147 103/ulCritically fnc970-842Xzv [facility] HospitalComment on above:Performed By: #### BMP, LIPID, ALT, URIC #### [facility] [address] [place] [address] Dr. Jorge L CareyRBC4.81 106/ulNormal4.70-6.10The [facility] HospitalComment on above:Performed By: #### BMP, LIPID, ALT, URIC #### [facility] [address] [place] [address] Dr. Jorge L CareyWBC6.9 103/ulNormal4.0-11.0The [facility] HospitalComment on above: Performed By: #### BMP, LIPID, ALT, URIC #### [facility] [address] [place] [address] Dr. Jorge L CareyCT HEAD WO CONon 63-36-9291TF HEAD WO CONNONCONTRAST CT SCAN OF THE HEAD CT HEAD [...] Electronically authenticated by: MALENA LÓPEZ Date: 2022-07-01 20:24NoSamaritan HospitalCovid-19 PCR (CVDTBH)on 39-52-0904TJRU-CoV-2 (COVID-19) RNA EDVIN+probe Ql (Unsp spec)Not detectedNormalNOT DETECTEDThe [facility] Comment on above:Result Comment: When diagnostic testing is negative, the [...] for this test is supported by the [employer] of Health and Human Service's declaration that circumstances exist to justify the emergency use of in vitro diagnostics for the detection and/or diagnosis of the virus that causes COVID-19. This EUA will remain in effect for the duration of the COVID-19 declaration justifying emergency of IVDs, unless it is terminated or revoked by the FDA (after which the test may no longer be used).Performed By: #### CVDTBH #### [facility] [address] [place] [address] [address] [address] Jorge L Soto 09-79-9549B-DIMER0.21 mg/L FEUNormal<=0.59Kindred HealthcareComment on above:Performed By: #### BMP, LIPID, ALT, URIC #### [facility] [address] [place] [address] Dr. Jorge L Simon-DIMER COMMENTSE [facility] on above:Result Comment: Increases in D-Dimer concentration observed with thromboembolic events [...] stress, and generalized hospitalization. Performed By: #### BMP, LIPID, ALT, URIC #### [facility] [address] [place] [address] Dr. Jorge L Waller URINE PROFILEon 39-02-9152Cjhfjrrgf Ql (U)NegativeNormal NEGATIVEOhioHealth Marion General Hospital on above:Performed By: #### BMP, LIPID, ALT, URIC #### [facility] [address] [place] [address] Dr. Jorge L CareyClarity (U)CLEARNormalCLEARKindred HealthcareComtrinity health [facility] on above: Performed By: #### BMP, LIPID, ALT, URIC #### [facility] [address] [place] [address] Dr. Jorge L Sharpe (U)LT. YELLOWNormalYELLOWOhioHealth Marion General Hospital on above:Performed By: #### BMP, LIPID, ALT, URIC #### [facility] [address] [place] [address] Dr. Jorge L BellARAM micrscopic examination will be performed if indicated. NormalKindred HealthcareComtrinity health muske[facility] hospital on above:Performed By: #### BMP, LIPID, ALT, URIC #### [facility] [address] [place] [address] Dr. Jorge L CareyGlucose Ql (U)NegativeNormalNEGATIVEOhioHealth Marion General Hospital on above:Performed By: #### BMP, LIPID, ALT, URIC #### [facility] [address] [place] [address] Dr. Jorge L CareyHemoglobin Ql (U)NegativeNormalNEGATIVEKindred Healthcare Comment on above:Performed By: #### BMP, LIPID, ALT, URIC #### [facility] [address] [address] [address] Jorge L Preston Ql (U)NegativeNormalNEGATIVEKindred HealthcareComment on above:Performed By: #### BMP, LIPID, ALT, URIC #### [facility] [address] [address] [address] Jorge L CareyLEUKOCYTESNegativeNormalNEGATIVEKindred HealthcareComment on above:Performed By: #### BMP, LIPID, ALT, URIC #### [facility] [address] [address] [address] Jorge L Lundberg Ql (U)NegativeNormalNEGATIVEKindred HealthcareComment on above:Performed By: #### BMP, LIPID, ALT, URIC #### [facility] [address] [address] [address] Jorge L Pozo (U)6.0 [pH]Normal5-9The [facility] HospitalComment on above: Performed By: #### BMP, LIPID, ALT, URIC #### [facility] [address] [address] [address] Jorge L CareySPEC GRAVITY1.568Mmdkrx9.005-<=1.025The [facility] on above:Performed By: #### BMP, LIPID, ALT, URIC #### [facility] [address] [address] [address] Jorge L Dupont PROTEINNegativeNormalNEGATIVE/ TRACEThe [facility] Comment on above:Performed By: #### BMP, LIPID, ALT, URIC #### [facility] [address] [address] [address] Jorge L Hernandez MICRO INDNOT INDICATEDNoSamaritan HospitalComment on above:Performed By: #### BMP, LIPID, ALT, URIC #### [facility] [address] [address] [address] Jorge L Lao Qn (U)1.0 {Ila'U}/dLNormal0.2 - 1.0The Kyree HospitalComment on above:Performed By: #### BMP, LIPID, ALT, URIC #### [facility] [address] [place] [address] Dr. Jorge L Perera A AND B AGon 22-03-1641YFNXPECFPBFZOLicking Memorial Hospital on above:Result Comment: Negative for Flu A protein angiten. Infection due to Flu A cannot be ruled out. FluA angiten in the sample may be below the detection limit of the test.Performed By: #### INFLUAB #### [facility] [address] [place] [address] Dr. Jorge L AlomnteNEGSYD [facility] on above: Result Comment: Negative for Flu B protein antigen. Infection due to Flu B cannot be ruled out. FluB antigen in the sample may be below the detection limit of the test.Performed By: #### INFLUAB #### [facility] [address] [place] [address] Dr. Jorge L Carpenter AGNegativeNormalNEGATIVE SEE COMMENTThe [facility] on above:Performed By: #### INFLUAB #### [facility] [address] [place] [address] Dr. Jorge L Borden AGNegativeNormalNEGATIVE SEE COMMENTOhioHealth Marion General Hospital on above:Performed By: #### INFLUAB #### [facility] [address] [place] [address] Dr. Jorge L CareyPOINT OF CARE GLUCOSEon 33-72-7546Moxcscz [Mass/Vol]130 mg/dL Critically yixl89-782TowOhioHealth Marion General Hospital on above:Performed By: #### BMP, LIPID, ALT, URIC #### [facility] [address] [place] [address] Dr. Jorge L Stiles 14(COMP METB)on 15-89-4334Tmybtvi [Mass/Vol]3.7 g/dLNormal 3.4-5.0The [facility] on above:Performed By: #### CMP, CMADM #### [facility] [address] [address] [address] Jorge L CareyAlbumin/Globulin [Mass ratio]1.2 {ratio}NormalThe [facility] HospitalComment on above:Performed By: #### CMP, CMADM #### [facility] [address] [address] [address] Jorge L EisenbergP [Catalytic activity/Vol]49 U/SWnldwi83-535Fje [facility] HospitalComment on above:Performed By: #### CMP, CMADM #### [facility] [address] [address] [address] Jorge L EisenbergT [Catalytic activity/Vol]30 U/HBhbaos71-68Prd [facility] HospitalComment on above:Performed By: #### CMP, CMADM #### [facility] [address] [address] [address] Jorge L Morenoon gap [Moles/Vol]12.7 mmol/LNormalThe [facility] Comment on above:Performed By: #### CMP, CMADM #### [facility] [address] [address] [address] Jorge L CareyAST [Catalytic activity/Vol]21 U/RHsqdpm38-72Slj [facility], Cancer Centerment on above:Performed By: #### CMP, CMADM #### [facility] [address] [address] [address] Jorge L CareyBilirubin [Mass/Vol]0.5 mg/dLNormal0.2-1.0The [facility] Comment on above:Performed By: #### CMP, CMADM #### [facility] [address] [address] [address] Jorge L CareyCalcium [Mass/Vol]8.9 mg/dLNormal8.5-10.1The [facility] Comment on above:Performed By: #### CMP, CMADM #### [facility] [address] [address] [address] Jorge L CareyChloride [Moles/Vol]100 mmol/ONwlpis48-168Jtg [facility] Comment on above:Performed By: #### CMP, CMADM #### [facility] [address] [address] [address] Jorge L CareyCO2 [Moles/Vol]29.0 mmol/JQxymtq90.0-32.0The [facility] Comment on above:Performed By: #### CMP, CMADM #### [facility] [address] [address] [address] Jorge L CareyCreatinine [Mass/Vol]1.04 mg/dLNormal0.70-1.30The [facility] HospitalComment on above:Performed By: #### CMP, CMADM #### [facility] [address] [address] [address] Coats ChangEGFR-AF CYPRIOT>60Normal>=60The [facility] HospitalComment on above:Performed By: #### CMP, CMADM #### [facility] [address] [address] [address] Jorge L MckeonGFR-NON AF CYPRIOT>60Normal>=60The [facility] HospitalComment on above:Performed By: #### CMP, CMADM #### [facility] [address] [address] [address] Jorge L CareyGlobulin (S) [Mass/Vol]3.1 g/dLNormalThe [facility] HospitalComment on above:Performed By: #### CMP, CMADM #### [facility] [address] [address] [address] Jorge L CareyGlucose [Mass/Vol]140 mg/dLCritically xfjx75-019Cjz [facility] HospitalComment on above:Performed By: #### CMP, CMADM #### [facility] [address] [address] [address] Jorge L CareyPotassium [Moles/Vol]3.7 mmol/LNormal3.5-5.1The [facility] Comment on above:Performed By: #### CMP, CMADM #### [facility] [address] [address] [address] Jorge L CareyProtein [Mass/Vol]6.8 g/dLNormal6.4-8.2The [facility] Comment on above:Performed By: #### CMP, CMADM #### [facility] [address] [address] [address] Jorge L CareySodium [Moles/Vol]138 mmol/YQezdyt202-293Bfl [facility] Comment on above:Performed By: #### CMP, CMADM #### [facility] [address] [address] [address] Jorge L CareyUrea nitrogen [Mass/Vol]13.0 mg/dLNormal7.0-18.0The [facility] HospitalComment on above:Performed By: #### CMP, CMADM #### [facility] [address] [address] [address] Jorge L CareyUrea nitrogen/Creatinine [Mass ratio]12.5 mg/mgNoSamaritan HospitalComment on above:Performed By: #### CMP, CMADM #### [facility] [address] [address] [address] Jorge L Jordan, HIGH SENSITIVITYon 75-61-2976SDLSOS91.9 pg/mLNormal 4.0-76.1Kindred HealthcareComment on above:Result Comment: CUT-OFF POINTS HAVE BEEN ESTABLISHED BASED ON THE FOURTH UNIVERSAL DEFINITIONS OF MYOCARDIAL INFARCTION. THE UPPER REFERENCE LIMIT (URL) OF TROPONIN, DEFINED THE 99TH PERCENTILE OF cTnI DISTRIBUTION IN A REFERENCE POPULATION, HAS BEEN CONFIRMED THE DECISION THRESHOLD FOR MT DIAGNOSIS.Performed By: #### BMP, LIPID, ALT, URIC #### [facility] [address] [address] [address] Jorge L CareyXR CHEST 1 Von [id number] CHEST 1 VEXAMINATION: XR CHEST 1 V HISTORY: Shortness of breath COMPARISON: None. TECHNIQUE: Portable chest FINDINGS: The lung parenchyma is free of consolidation or infiltrate. No pneumothorax or pleural effusion. The cardiac, mediastinal and hilar contours are normal. The visualized osseous structures exhibit no gross abnormality. IMPRESSION: No acute cardiopulmonary abnormality. Electronically authenticated by: FILIPPO MASTERS Date: 2022-07-01 19:57[facility] AUTO DIFFon [id number] #0.0 103/ulNormal0.0-0.1The [facility] HospitalComment on above:Performed By: #### CBC #### [facility] [address] [place] [address] Dr. Jorge L CareyBasophils/100 WBC (Bld)0.7 %Normal0.2-2.0The [facility] Comment on above:Performed By: #### CBC #### [facility] [address] [place] [address] Dr. Jorge L Leong #0.2 103/ulNormal0.0-0.7The [facility] HospitalComment on above: Performed By: #### CBC #### [facility] [address] [place] [address] Dr. Jorge L Mckeonosinophils/100 WBC (Bld)2.6 %Normal0.9-7.0The [facility] Comment on above:Performed By: #### CBC #### [facility] [address] [place] [address] Dr. Jorge L Mckeonrythrocyte distribution width (RBC) [Ratio]11.5 %Hshhxr92.0-15.0 The [facility] HospitalComment on above:Performed By: #### CBC #### [facility] [address] [place] [address] Dr. Jorge L CareyHematocrit (Bld) [Volume fraction]44.7 %Vyhksc80.0-54.0The [facility] HospitalComment on above:Performed By: #### CBC #### [facility] [address] [place] [address] Dr. Jorge L CareyHemoglobin (Bld) [Mass/Vol]15.5 g/iQCkjjhc79.0-18.0The [facility] HospitalComment on above:Performed By: #### CBC #### [facility] [address] [place] [address] Dr. Jorge L Padilla #0.01 10e3/ulNormal0.00-0.03The [facility] HospitalComment on above:Performed By: #### CBC #### [facility] [address] [place] [address] Dr. Jorge L Padilla %0.2 %Normal0.0-0.5The [facility] HospitalComment on above: Performed By: #### CBC #### [facility] [address] [place] [address] Dr. Jorge L Cooper #1.3 103/ulNormal1.2-3.8The [facility] HospitalComment on above:Performed By: #### CBC #### [facility] [address] [place] [address] Dr. Jorge L Lopezhocytes/100 WBC (Bld)21.3 %Enrswx69.5-60.0The [facility] HospitalComment on above:Performed By: #### CBC #### [facility] [address] [place] [address] Dr. Jorge L LeyUAL DIFF REQNONormalThe [facility] HospitalComment on above: Performed By: #### CBC #### [facility] [address] [place] [address] Dr. Jorge L Alvarado (RBC) [Entitic mass]30.1 ibYfsixv14.9-34.0The [facility] HospitalComment on above:Performed By: #### CBC #### [facility] [address] [place] [address] Dr. Jorge L Alvarado (RBC) [Mass/Vol]34.7 g/nEGzohlu42.9-35.2The [facility] HospitalComtrinity health [facility] on above:Performed By: #### CBC #### [facility] [address] [place] [address] Dr. Jorge L Alvarado (RBC) [Entitic vol]86.8 bLFcmyob81.0-94.0The [facility] HospitalComment on above:Performed By: #### CBC #### [facility] [address] [place] [address] Dr. Jorge L Valencia #0.4 103/ulNormal0.3-0.8The [facility] HospitalComment on above:Performed By: #### CBC #### [facility] [address] [place], [place] [address] Dr. Jorge L Melgarocytes/100 WBC (Bld)7.2 %Normal1.7-12.0The [facility] Comment on above:Performed By: #### CBC #### [facility] [address] [place] [address] Dr. Jorge L NguyenUT #4.1 103/ulNormal1.4-6.5The [facility] HospitalComment on above:Performed By: #### CBC #### [facility] [address] [place] [address] Dr. Jorge L Nguyenutrophils/100 WBC (Bld)68.0 %Ctflkh32.0-75.0The [facility] HospitalComment on above:Performed By: #### CBC #### [facility] [address] [place] [address] Dr. Jorge L CareyPlatelet mean volume (Bld) [Entitic vol]12.0 fLNormal9.5-13.5The [facility] HospitalComment on above:Performed By: #### CBC #### [facility] [address] [place] [address] Dr. Jorge L CareyPLT163 103/wsIkeznt760-893Fxj [facility] HospitalComment on above: Performed By: #### CBC #### [facility] [address] [place] [address] Dr. Jorge L CareyRBC5.15 106/ulNormal4.70-6.10The [facility] HospitalComment on above:Performed By: #### CBC #### [facility] [address] [place] [address] Dr. Jorge L CareyWBC6.1 103/ulNormal4.0-11.0The [facility] HospitalComment on above: Performed By: #### CBC #### [facility] [address] [place] [address] Dr. Jorge L CareyGLYCOHEMOGLOBIN A1Con 73-11-5288OUS RECOMMENDATIONSEE BELOWNormal Kindred HealthcareComment on above:Result Comment: ADA RECOMMENDED LIMIT 4.0 - 6.0 ADA THERAPEUTIC TARGET < 7.0 ACTION SUGGESTED > 7.0Performed By: #### BMP, LIPID, ALT, URIC #### [facility] [address] [address] [address] Jorge L aCreyGlucose [Mass/Vol]146 mg/dLPremier Health Miami Valley Hospital SouthComment on above:Performed By: #### BMP, LIPID, ALT, URIC #### [facility] [address] [address] [address] Jorge L CareyHbA1c (Bld) [Mass fraction]6.7 %Critically high4.5-6.2Kindred HealthcareComment on above:Performed By: #### BMP, LIPID, ALT, URIC #### [facility] [address] [address] [address] Jorge L GoldID PROFILEon 87-65-5355EYHK-HDL RATIO NORMSMemorial Health System Selby General HospitalComment on above:Result Comment: 3.3 - 4.4 LOW RISK 4.4 - 7.1 AVERAGE RISK 7.1 - 11.0 MODERATE RISK >11.0 HIGH RISKPerformed By: #### BMP, LIPID, ALT, URIC #### [facility] [address] [address] [address] Jorge L Ballardesterol [Mass/Vol]117 mg/dLNormal<=200The [facility] Comment on above:Performed By: #### BMP, LIPID, ALT, URIC #### [facility] [address] [address] [address] Jorge L CareyCholesterol in HDL [Mass/Vol]48 mg/pWPspzup41-90Itq [facility] HospitalComment on above:Performed By: #### BMP, LIPID, ALT, URIC #### [facility] [address] [address] [address] Jorge L CareyCholesterol in LDL [Mass/Vol]50.6 mg/dLPremier Health Miami Valley Hospital SouthComtrinity health [facility] on above:Performed By: #### BMP, LIPID, ALT, URIC #### [facility] [address] [address] [address] Jorge L Ballardesteremmie.total/Cholesterol in HDL [Mass ratio]2.4 {ratio} NormalKindred HealthcareComment on above:Performed By: #### BMP, LIPID, ALT, URIC #### [facility] [address] [address] [address] Jorge L Danielson NORMAL> or = 60 mg/dl - LOW CARDIOVASCULAR RISK <40 mg/dl - HIGH CARDIOVASCULAR RISKPremier Health Miami Valley Hospital SouthComment on above:Performed By: #### BMP, LIPID, ALT, URIC #### [facility] [address] [address] [address] Jorge L CareyLDL CALC NORMALSEE BELOWNoSamaritan HospitalComment on above:Result Comment: <100 mg/dl OPTIMAL 100 - 129 mg/dl NEAR OR ABOVE OPTIMAL 130 - 159 mg/dl BORDERLINE HIGH 160 - 189 mg/dl HIGH >190 mg/dl VERY HIGH Performed By: #### BMP, LIPID, ALT, URIC #### [facility] [address] [place] [address] Dr. Jorge L CareyTriglyceride [Mass/Vol]92 mg/dLNormal<=150[facility] Comment on above:Performed By: #### BMP, LIPID, ALT, URIC #### [facility] [address] [place] [address] Dr. Jorge L LylesLDL CALC18.4 mg/dLNoSamaritan HospitalComment on above: Performed By: #### BMP, LIPID, ALT, URIC #### [facility] [address] [place] [address] Dr. Jorge L WuALBUMIN, RAND URon 09-60-2673wVZT<1.3Normal<=30.0The [facility] HospitalComment on above:Performed By: #### MALBR #### [facility] [address] [place] [address] Dr. Jorge L CareyPROF CHEM 8 (BAS METB)on 68-43-9755Vtebg gap [Moles/Vol]9.5 mmol/LNormalThe [facility] HospitalComment on above:Performed By: #### BMP, LIPID, ALT, URIC #### [facility] [address] [place] [address] Dr. Jorge L CareyCalcium [Mass/Vol]8.6 mg/dLNormal8.5-10.1The [facility] Comment on above:Performed By: #### BMP, LIPID, ALT, URIC #### [facility] [address] [address] [address] Jorge L CareyChloride [Moles/Vol]102 mmol/IAtxlyi92-476Onh [facility] Comment on above:Performed By: #### BMP, LIPID, ALT, URIC #### [facility] [address] [address] [address] Jorge L CareyCO2 [Moles/Vol]30.8 mmol/DZiahgp47.0-32.0The [facility] Comment on above:Performed By: #### BMP, LIPID, ALT, URIC #### [facility] [address] [address] [address] Jorge L CareyCreatinine [Mass/Vol]0.95 mg/dLNormal0.70-1.30The [facility] HospitalComment on above:Performed By: #### BMP, LIPID, ALT, URIC #### [facility] [address] [address] [address] Jorge L MckeonGFR-AF CYPRIOT>60Normal>=60The [facility] HospitalComment on above:Performed By: #### BMP, LIPID, ALT, URIC #### [facility] [address] [address] [address] Jorge L MckeonGFR-NON AF CYPRIOT>60Normal>=60The [facility] HospitalComment on above:Performed By: #### BMP, LIPID, ALT, URIC #### [facility] [address] [address] [address] Jorge L CareyGlucose [Mass/Vol]142 mg/dLCritically pkxj43-486Akk [facility] HospitalComment on above:Performed By: #### BMP, LIPID, ALT, URIC #### [facility] [address] [address] [address] Jorge L CareyPotassium [Moles/Vol]4.3 mmol/LNormal3.5-5.1The [facility] Comment on above:Performed By: #### BMP, LIPID, ALT, URIC #### [facility] [address] [address] [address] Jorge L CareySodium [Moles/Vol]138 mmol/TUatvwp111-068Wgs [facility] Comment on above:Performed By: #### BMP, LIPID, ALT, URIC #### [facility] [address] [address] [address] Jorge L CareyUrea nitrogen [Mass/Vol]14.0 mg/dLNormal7.0-18.0The [facility] HospitalComment on above:Performed By: #### BMP, LIPID, ALT, URIC #### [facility] [address] [address] [address] Jorge L Farrar nitrogen/Creatinine [Mass ratio]14.7 mg/mgNormalThe [facility] HospitalComment on above:Performed By: #### BMP, LIPID, ALT, URIC #### [facility] [address] [address] [address] Jorge L Guerin [id number] [Catalytic activity/Vol]27 U/OMmxzrd46-72Gjx [facility] HospitalComment on above:Performed By: #### BMP, LIPID, ALT, URIC #### [facility] [address] [place] [address] Dr. Jorge L CareyURIC ACID SERUMon 57-44-1821Yuduz [Mass/Vol]5.5 mg/dLNormal 3.5-7.2The [facility] HospitalComment on above:Performed By: #### BMP, LIPID, ALT, URIC #### [facility] [address] [place] [address] Dr. Jorge L CareyGLYCOHEMOGLOBIN A1Con 71-29-6262IPR RECOMMENDATIONSEE BELOWNormal The [facility] HospitalComtrinity health [facility] on above:Result Comment: ADA RECOMMENDED LIMIT 4.0 - 6.0 ADA THERAPEUTIC TARGET < 7.0 ACTION SUGGESTED > 7.0Performed By: #### BMP, LIPID, ALT, URIC #### [facility] [address] [place] [address] Dr. Jorge L CareyGlucose [Mass/Vol]160 mg/dLNoSamaritan HospitalComment on above:Performed By: #### BMP, LIPID, ALT, URIC #### [facility] [address] [address] [address] Jorge L DuboseA1c (Bld) [Mass fraction]7.2 %Critically high4.5-6.2The [facility] HospitalComment on above:Performed By: #### BMP, LIPID, ALT, URIC #### [facility] [address] [address] [address] Jorge L CareyGLYCOHEMOGLOBIN A1Con 43-10-1513GGG RECOMMENDATIONADA THERAPEUTIC TARGET 6.0 - 7.0 ACTION SUGGESTED > 7.0Prem[facility] SouthComment on above:Performed By: #### BMP, LIPID, ALT, URIC #### [facility] [address] [address] [address] Jorge L CareyGlucose [Mass/Vol]177 mg/dLNoSamaritan HospitalComment on above:Performed By: #### BMP, LIPID, ALT, URIC #### [facility] [address] [address] [address] Jorge L DuboseA1c (Bld) [Mass fraction]7.8 %Critically high<=6.0The [facility] HospitalComment on above:Performed By: #### BMP, LIPID, ALT, URIC #### [facility] [address] [address] [address] Jorge L Carey Vital Signs Date TimeVital SignValuePerforming JhrvrndsyFgrzieoo58-21-0073 11:05-0500 Diastolic blood thflyepg48 mm[Hg]Bogdan Ball DO Work Phone: [facility]11-10-2025 11:05-0500 Heart rate82 /minBenjamin Ball DO Work Phone: [facility]11-10-2025 11:05-0500 Respiratory rate16 /minBenjamin Ball DO Work Phone: [facility]11-10-2025 11:05-0500 SaO2% (BldA) [Mass fraction]96 %Bogdan Ball DO Work Phone: [phone])[address] [place], [place] 372[address]11-10-2025 11:05-0500 Systolic blood julttpvg027 mm[Hg]Bogdan Ball DO Work Phone: [phone])[address] [place], [place] 3721611-10-2025 09:02-0500 Body eodvby937.85 cmBenjamin Ball DO Work Phone: [phone])[address] [place], [place] 3721611-10-2025 09:02-0500 Body inpgzt536.39 kgBenjamin Ball DO Work Phone: [phone])[address] [place], [place] 3721608-26-2025 10:00-0400 Body nowbub897.5 cmBenjamin Ball DO Work Phone: [phone] [place], [place] 3721608-26-2025 10:00-0400 Body mass index (BMI) [Ratio]32.8 kg/k6Bvuhnxil Ball DO Work Phone: [phone])[address] [place], [place] 3721608-26-2025 10:00-0400 Body .95 kgBenjamin Ball DO Work Phone: [phone])[address] [place], [place] 3721608-26-2025 10:00-0400 Diastolic blood mm[Hg]Bogdan Ball DO Work Phone: [phone] [place], [place] 3721608-26-2025 10:00-0400 Heart rate68 /minBenjamin Ball DO Work Phone: [phone])[address] [place], [place] 3721608-26-2025 10:00-0400 Respiratory rate12 /minBenjamin Ball DO Work Phone: [phone])[address] [place], [place] 3721608-26-2025 10:00-0400 Systolic blood pjqgweyz823 mm[Hg]Bogdan Ball DO Work Phone: [phone])[address] [place], [place] 3721604-23-2025 11:25-0400 Body ofwlgw489.5 cmH[facility]04-23-2025 11:25-0400Body mass index (BMI) [Ratio]33.1 kg/k3SbqmnwkhhHarrison Community Hospital04-23-2025 11:25-0400Body zwtyze195.25 kgH[facility] Hospital04-23-2025 11:25-0400Diastolic blood pqxamnbd88 mm[Hg][facility] 10-07-2024 11:25-0400Heart rate92 /[facility] 10-07-2024 11:25-0400Respiratory rate12 /[facility] 10-07-2024 11:25-0400Systolic blood zzetfgsb100 mm[Hg][facility]09-03-2024 09:37-0400Body cklrru525.5 cmH[facility] 02-18-2024 09:37-0400Body mass index (BMI) [Ratio]32.1 kg/k0FvieqtkdpHarrison Community Hospital09-03-2024 09:37-0400Body efiwwy451.74 kgH[facility] Hospital09-03-2024 09:37-0400Diastolic blood huxksxpq16 mm[Hg][facility]09-03-2024 09:37-0400Heart rate76 /[facility]09-03-2024 09:37-0400Respiratory rate12 /[facility]09-03-2024 09:37-0400Systolic blood rpudjhpb764 mm[Hg][facility]05-03-2024 09:06-0400Body brgdom771.5 cmH[facility] Hospital05-03-2024 09:06-0400Body mass index (BMI) [Ratio]31.8 kg/s8HhjfwjbkpHarrison Community Hospital05-03-2024 09:06-0400Body .32 kg [facility]05-03-2024 09:06-0400Diastolic blood aejzcsvh40 mm[Hg][facility]05-03-2024 09:06-0400Heart rate80 /min [facility]05-03-2024 09:06-0400Respiratory rate12 /min [facility]05-03-2024 09:06-0400Systolic blood mm[Hg][facility]01-22-2024 09:00-0500Body sagjor371.5 cm Bogdan Ball Other [facility] [employer] Other 01-22-2024 09:00-0500Body mass index (BMI) [Ratio] 32.62 kg/l9Dhxtqder Ball Other [facility] Other 01-22-2024 09:00-0500Body .39 kgBenjamin Ball Other [facility] Other 01-22-2024 09:00-0500Diastolic blood cenlrjpb96 mm[Hg] Bogdan Ball Other [employer] Other 01-22-2024 09:00-0500Respiratory rate12 /minBenjamin Ball Other [facility] Other 01-22-2024 09:00-0500Systolic blood gsjbdgka887 mm[Hg] Bogdan Ball Other [employer] Other 11-15-2023 08:30-0500Body .5 cmBenjamin Ball Other [employer] Other 11-15-2023 08:30-0500Body mass index (BMI) [Ratio] 32.19 kg/w4Mpibxdgt Ball Other [employer] Other 11-15-2023 08:30-0500Body sitgmu207.85 kgBenjamin Ball Other [facility] Other 11-15-2023 08:30-0500Diastolic blood ruyxkbqj76 mm[Hg] Bogdan Ball Other [employer] Other 11-15-2023 08:30-0500Respiratory rate12 /minBenjamin Ball Other [facility] Other 11-15-2023 08:30-0500Systolic blood ghrmbqol480 mm[Hg] Bogdan Ball Other [facility] Other 07-12-2023 08:30-0400Body dzfemn950.5 cmBenjamin Ball Other [facility] [employer] Other 07-12-2023 08:30-0400Body mass index (BMI) [Ratio] 31.54 kg/y2Ekoisrvj Ball Other [facility] Other 07-12-2023 08:30-0400Body fqsmvu644.49 kgBenjamin Ball Other [facility] Other 07-12-2023 08:30-0400Diastolic blood gyawxcfv66 mm[Hg] Bogdan Ball Other [facility] Other 07-12-2023 08:30-0400Respiratory rate12 /minBenjamin Ball Other [facility] Other 07-12-2023 08:30-0400Systolic blood ascjaiwz778 mm[Hg] Bogdan Ball Other [facility] Other 05-26-2023 10:58-0400Blood Pressure LocationJohana GARCIA [facility]05-26-2023 10:58-0400Diastolic blood vgjurohi81 mm[Hg]Johana GARCIA [facility]05-26-2023 10:58-0400Heart rate78 /Shelby GARCIA [facility]05-26-2023 10:58-0400Respiratory rate16 /minJohana GARCIA [facility]05-26-2023 10:58-0400Systolic blood buqbrjbx586 mm[Hg]Johana GARCIA [facility]04-21-2023 12:15-0400Body khygdh085.5 cmBenjamin Ball Other [facility] [employer] Other 04-21-2023 12:15-0400Body mass index (BMI) [Ratio] 31.17 kg/f3Gnsbizwd Ball Other [facility] Other 04-21-2023 12:15-0400Body rhywlq829.13 kgBenjamin Ball Other [facility] Other 04-21-2023 12:15-0400Diastolic blood axcqssxw93 mm[Hg] Bogdan Ball Other [facility] Other 04-21-2023 12:15-0400Respiratory rate12 /minBenjamin Ball Other [facility] Other 04-21-2023 12:15-0400Systolic blood vlnyicft850 mm[Hg] Bogdan Ball Other [facility] Other 03-09-2023 08:30-0500Body sqloyf890.5 cmBenjamin Ball Other [facility] Other 03-09-2023 08:30-0500Body mass index (BMI) [Ratio] 31.42 kg/w7Gmqwluko Ball Other [facility] Other 03-09-2023 08:30-0500Body .04 kgBenjamin Ball Other [facility] Other 03-09-2023 08:30-0500Diastolic blood cjoguchi22 mm[Hg] Bogdan Ball Other [facility] Other 03-09-2023 08:30-0500Respiratory rate12 /minBenjamin Ball Other [facility] Other 03-09-2023 08:30-0500Systolic blood cncpemzo813 mm[Hg] Bogdan Ball Other [facility] Other 04-22-2022 08:14-0400Blood Pressure LocationPatrick Amorelie [facility] 04-22-2022 08:14-0400Diastolic blood mm[Hg] [facility] 04-22-2022 08:14-0400Heart rate78 /minPatrick Amorelie [facility] 04-22-2022 08:14-0400Systolic blood ydbgbpmw446 mm[Hg] Johana Amorelie 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 Work Phone: Start: 10-07-2024 End: 23-10-2685Uqcpghd encounter procedureAt[facility] Work Phone: Start: 04-37-0382Gum-patient / Non-visitAt[facility] Health [facility] Work Phone: Start: 08-21-2024 End: 24-90-9968rctkywdehwWgjefcr Vytautas Giedraitis MDFacility:[facility]art: 06-01-2024 End: 64-11-9283dlxhkowenjLmyjbrd Vytautas Giedraitis MDFacility:[facility] Start: 68-07-2095Ovklnwt [facility] procedureH[facility] Start: 05-04-2024 End: 71-75-6548yugthsitkrCwhhrob Vytautas Giedraitis MDFacility:[facility] Start: 04-20-2024 End: 64-20-6317hwhmvdcpquQjqajcs Vytautas Giedraitis MDFacility:[facility] Start: 83-37-5346uunfssbvwdHowvlep R WATERSFacility:[facility] Hospitaltart: 02-18-2024 End: 97-41-4171bvlbpartkwIskurnhbiOhioHealth [facility] Work Phone: Start: 02-18-2024 End: 14-77-4527Vvggqap encounter procedureAtrium Health Cabarr[facility] Physician GroupFostoria [facility] Work Phone: Start: 66-15-0035Dcv-patient / Non-visitAtrium Health [facility]ician [facility] Work Phone: Start: 10-18-2023 End: 45-17-9437gynsxzihqjYyaprhwlhOhioHealth [facility] Work Phone: Start: 10-18-2023 End: 03-05-3295Hgrzebp encounter procedureAtrium Health [facility] Physician GroupFostoria [facility] Work Phone: start: 52-71-2225Rcp-patient / Non-visitAtrium Health Cabarr[facility] Physician GroupOver[facility] Work Phone: Start: 62-07-7854Prh-patient / Non-visitFircentra [facility] Phys[facility] GroupOverlake [facility] Work Phone: Start: 97-50-8332Ncz-patient / Non-visitFirelands Physician Group-[facility] Work Phone: Start: 61-21-0737Mqt-patient / Non-visitAtrium Health [facility] Work Phone: Start: 07-29-2023 End: 22-66-6040vsmapushfuCkxveksm Ball Other [employer]Candescent [employer] Other Start: 08-59-3820Jkqxpfmtm encounterBenjamin BallFPG [facility] ClinicStart: 07-08-2023 End: 74-37-4162fxxpkrlegaZgbzkasw Ball Other [employer] Other Start: 74-67-5241Nputtu outpatient visit 25 minutes Bogdan ShayneG [facility] ClinicStart: 05-10-2023 End: 31-24-1075guatzdnuqoAswxggnn Ball Other [employer] [facility] Other Start: 43-30-2986Gpftbo outpatient visit 15 minutes Bogdan BallFPG [facility] ClinicStart: 05-01-2023 End: 47-87-5195wyflydjuglHdnklocy Ball Other [employer] Other Start: 56-42-4542Xvinudt encounter procedureBenjamin BallFPG [facility] ClinicStart: 04-24-2023 End: 96-26-7715rikhqbdbwxVusispqr Ball Other [employer] Other Start: 75-48-0781Ktcmiitqz encounterBenjamin BallFPG [facility] ClinicStart: 02-25-2023 End: 94-06-2612qdbdhutxmjXwdxfxfu Ball Other [employer] Other Start: 76-35-3126Dilietbac encounterBenjamin BallFPG [facility] ClinicStart: 12-27-2022 End: 88-38-8250jiwsxtdayaJgrrzhgw Ball Other [employer] Other Start: 51-00-5280Tthznbary encounterBenjamin BallFPG [facility] ClinicStart: 12-26-2022 End: 93-49-6399vpcpvtvedbXnciymfj Ball Other [employer] Other Start: 41-96-5206Akwsdj outpatient visit 25 minutes Bogdan BallFPG [facility] ClinicStart: 11-19-2022 End: 08-22-6381zvultyuixnGrtjgbbq Ball Other [employer] Other Start: 95-55-0163Arjycvwqj encounterBenjamin BallFPG [facility] ClinicStart: 11-09-2022 End: 87-46-5852Ygpajqu encounter procedurePajaniya GARCIA [facility] start: 10-22-2022 End: 91-06-5076iydyxbakcvMonyweqy Ball Other [employer] Other Start: 16-84-6233Btwrrzrrh encounterBenjamin BallFPG [facility] ClinicStart: 10-18-2022 End: 10-86-9515trfqfgivbhPylfwuoh Ball Other [employer] Other Start: 30-68-9360Snngxvskl encounterBenjamin BallFPG [facility] ClinicStart: 10-05-2022 End: 89-15-0075inognuvjqzPsiudmxm Ball Other nort [employer] Other Start: 61-70-6151Lishiu outpatient visit 15 minutes Bogdan BallFPG [facility] ClinicStart: 09-27-2022 End: 12-28-2361rqjcqhvgnuFrmlfvfx Ball Other [employer] Other Start: 64-87-8192Gjxnonkxx encounterBenjamin BallFPG [facility] ClinicStart: 09-25-2022 End: 71-41-5435hhqrnwrkvvNpmowfbc Ball Other [employer] Other Start: 57-47-0088Tdsyzerkj encounterBenjamin BallFPG [facility] ClinicStart: 09-21-2022 End: 67-69-8706eyzzlshljuLoxhdecx Ball Other [employer] Other Start: 02-67-8463Qkkstxrrk encounterBenjamin BallFPG [facility] ClinicStart: 08-23-2022 End: 19-51-6339neupaphopmQfmcsipm Ball Other [employer] Other Start: 10-21-8088Nldgio outpatient visit 25 minutes Bogdan BallFPG [facility] ClinicStart: 08-17-2022 End: 28-30-8547auqnkdadcvYZ BOGDAN BALLFacility:Y0Ligzc: 08-14-2022 End: 50-70-8173hvgrnufsyiAxhvyxlm Ball Other [employer] Other Start: 53-23-7735Oxbzzucbu encounterBenjamin BallFPG [facility] ClinicStart: 07-01-2022 End: 95-93-0600yrkxmjjbpuJH BOGDAN BALLFacility:E1Ljmff: 62-90-9634Eziiz health examinationBenjamin Ball Other [employer] Other Start: 04-18-2022 End: 68-21-5701dhpxgypldbOP BOGDAN BALLFacility:J6Qiulc: 01-20-2022 End: 93-82-0913cpqrxiamxvXB NONE LISTED REQUESTFacility:Z7Hqkst: 10-06-2021 End: 50-08-1548Ynxpzzj encounter procedurePatriclivier Сергей Amorelie [facility] start: 09-16-2021 End: 64-05-4218czeklcazbdNE JOHANA JOSE .Facility:M8Xooes: 09-15-2021 End: 11-83-4968vizbmrfqmrBM NONE LISTED REQUESTFacility:V7Phtum: 08-29-2021 ambulatoryDR BOGDAN BALLFacility:H1 Procedures DateProcedureProcedure DetailPerforming ClinicianStart: 36-19-2797BUUX / NAIL BIOPSYNatalie A Felter PERCUSSION WELDING MACHINE OPERATOR-NURSE LICENSED PRACTICAL Work Phone: Start: 20-04-2480NUAPZESRCGC SKIN LESIONNatalie A Felter PERCUSSION WELDING MACHINE OPERATOR-NURSE LICENSED PRACTICAL Work Phone: Start: 47-90-8466TKV screeningDR BOGDAN EDMONDComment on above:Performed By: #### BMP, LIPID, ALT, URIC #### [facility] [address] [place] [address] Dr. Jorge L CareyStart: 20-10-8766Rrwgcvl examination of patientBejessica Pruitt Other Start: 44-26-9175FukgfqnpqsCzbrnaf WATERS Start: 38-46-5049Fllmcppitmivbf screeningBenestefani Pruitt Other Start: 70-22-5261Qoqzdfshc for malignant neoplasm of prostateBenestefani Pruitt Other ColonoscopyAcal Enterprise Solutions Depression screeningBenestefani Pruitt Other History of hernia repairPaBrandcastlivier Amorelie Perirectal abscess (disorder)Johana GARCIA Screening for malignant neoplasm of colonBenestefani Pruitt Other Plan of Treatment DateCare ActivityDetailAuthorStart: 09-27-2025 End: 11-03-3805Vxacfvn encounter lhzzosvwb60/13/2026 1:05 PM EDT Office Visit [facility] [address] [place] [phone] Orin Sarmiento, PERCUSSION WELDING MACHINE OPERATOR-NURSE LICENSED PRACTICAL [address] [place] [address] [facility] HOSPITALTamara [facility]ermatologyStart: 55-46-6093QctaurwtaAkron Children's Hospitaltart: 03-22-2025 End: 72-10-7566Hucgbpf encounter xmedjuysx40/06/2025 2:40 PM EDT Office Visit [facility] [address] [place] [phone] Orin Sarmiento, PERCUSSION WELDING MACHINE OPERATOR-NURSE LICENSED PRACTICAL [address] [place] [address] [facility] Comment on above:ArrivedStart: 34-28-8345Qxnyagqyv vaccinationInfluenza Vaccine (#1)[facility] HealthStart: 18-80-3416Yefofpvuj for malignant neoplasm of colon [facility] HealthDermatopathology examDermatopathology exam Pathology and Cytology Timed Neoplasm of unspecified behavior of bone, soft tissue, and skin Release Upon Ordering for 1 Occurrences starting 03/22/2025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 purified surface antigen)Bogdan Pruitt Other [facility] [employer] Other [id number] virus vaccine, unspecified formulationPaFotoshkola [facility]10-07-2022SARS-CoV-2 (COVID-19) mRNAMUL.ORD!p13084Tbijqok Amorelie [facility]11-22-2021SARS-CoV-2 (COVID-19) mRNA BNT-162b2 vaxAlBrandcastlivier Amorelie [facility]11-06-2021influenza virus vaccine, split virus (incl. purified surface antigen)Bogdan Pruitt Other [employer] Other 574858-37-3187klxiaocko virus vaccine, unspecified formulationPaFotoshkola [facility]10-14-2021influenza virus vaccine, unspecified formulationAcal Enterprise Solutions [facility] 04347000-47-5811CQCDW-77, mRNA, LNP-S, PF, 30 mcg/0.3 mL dose; Translations: [Pfizer-BioNTech COVID-19 Vaccine]Johana GARCIA [facility] comazvo on above:Reason for Medication: Prophylaxis 15-78-8285SITOF-19, mRNA, LNP-S, PF, 30 mcg/0.3 mL dose; Translations: [Pfizer- BioNTech COVID-19 Vaccine]Johana GARCIA Exncghlgp [facility] comqpli on above:Reason for Medication: Prophylaxis 96-59-8449nsfujrerd virus vaccine, split virus (incl. purified surface antigen) Bogdan Pruitt Other [employer] Other 244147-09-4275tfwjovoyk virus vaccine, unspecified formulationPawestern state hospitallivier GARCIA [facility] Health Administrationuepneumococcal Conjugate, unspecified formulation; Translations: [Need for prophylactic vaccination against Streptococcus pneumoniae (pneumococcus)] Bogdan Pruitt Other [employer] Other Payers DatePayer CategoryPayerPolicy [id number]-lfa [id number] [facility] ShieldBS [id number] [facility] [id number] 2.0.4.543675.70741381-78-5764Rgepuve3[id number] [id number] [id number] 65-14-4023Bjiv-zzx94327479450-22-2006BlzpldnOFTIL481978333-56-5811Nhbynah RP871[id number] 2..1.066403.3.579.2. [id number] 2..1.509794.3.57[id number] 2..1.089062.3.57[id number] 2..1.559992.3.57[id number] 2..1.183129.3.57[id number] 2..1.226146.3.57[id number] 2.0.1.835217.3.579.[id number] 2.0.1.377791.3.57[id number] 2.0.1.501268.3.57[id number] 2.16.840.1.935764.3.57[id number] 2.16.840.1.84[id number] 2.16.840.1.356864.3.579.2.593 [id number] 2.16.840.1.2[id number] 2.16.840.1.372273.3.579.2.531 Social History DateTypeDetailFacilityStart: 10-06-2021 End: 59-90-4509Fvmcmwm smoking statusNever smoked tobacco (finding)[facility] start: 37-30-0684Zyq Assigned At [facility] Hospitalxec[facility] Tobacco smoking statusNeverExecutive Urology of [facility]itan Hospitaltart: 86-47-4511Evb Assigned At [facility]tart: 33-95-2579KrgMfee (finding)[facility] HospitalTobacco smoking status NHISTobacco smoking consumption unknownNOMS HealthcareStart: 89-43-3927Ual assigned at birthNot on fileNOAZ HealthcareStart: 17-67-3152Psunswh use and exposureSmokeless tobacco non-userNOMS Healthcare Start: 66-60-9238Xkejqmn of Social functionNOAZ Healthcare Medical Equipment Procedure CodeEquipment CodeEquipment Original TextEquipment IdentifierDates Blood Sugar Diagnostic (Onetouch Ultra Test) stripStart: 66-51-0755Onksg Sugar Diagnostic (Onetouch Ultra Test) stripStart: 38-47-3085Xqq Needle, Diabetic (Bd Isa 2nd Gen Pen Needle) 32 gauge x 5/32 needleStart: 49-14-9066Xbk Needle, Diabetic (Bd Isa 2nd Gen Pen Needle) 32 gauge x 5/32 needleStart: 10-29-2023 End: 42-64-8450Fqlip Sugar Diagnostic (Onetouch Ultra Test) stripStart: 35-52-3840Nus Needle, Diabetic (Bd Isa 2nd Gen Pen Needle) 32 gauge x 5/32 needleStart: 67-78-5310Bfxco Sugar Diagnostic (Onetouch Ultra Test) stripStart: 08-16-2023 End: 69-82-2932Rqhcs Sugar Diagnostic stripStart: 08-16-2023 End: 10-89-3288Wzs Needle, Diabetic (Bd Isa 2nd Gen Pen Needle) 32 gauge x 5/32 needleStart: 10-29-2023 End: 78-67-9050Rdyml Sugar Diagnostic (Onetouch Ultra Test) stripStart: 64-91-4303Gby Needle, Diabetic 32 gauge x 5/32 needleStart: 24-34-3828Ojlqk Sugar Diagnostic (Onetouch Ultra Test) stripStart: 08-16-2023 End: 18-13-7630Xeats Sugar Diagnostic stripStart: 08-16-2023 End: 27-04-8059Wev Needle, Diabetic (Bd Isa 2nd Gen Pen Needle) 32 gauge x 5/32 needleStart: 10-29-2023 End: 19-72-9910Awv Needle, Diabetic (Bd Isa 2nd Gen Pen Needle) 32 gauge x 5/32 needleStart: 10-29-2023 End: 55-19-2406OJI TO TEST BLOOD SUGAR ONCE A DAYStart: 86-53-1961Ajeqc Sugar Diagnostic (Onetouch Ultra Test) stripStart: 45-20-7236Rwa Needle, Diabetic 32 gauge x 5/32 needleStart: 82-70-4444Ocqjz Sugar Diagnostic (Onetouch Ultra Test) stripStart: 08-16-2023 End: 57-18-4233Ctojz Sugar Diagnostic stripStart: 08-16-2023 End: 29-65-6404Ouo Needle, Diabetic (Bd Isa 2nd Gen Pen Needle) 32 gauge x 5/32 needleStart: 10-29-2023 End: 18-57-8285Sdy Needle, Diabetic (Bd Isa 2nd Gen Pen Needle) 32 gauge x 5/32 needleStart: 10-29-2023 End: 10-29-2023 Functional Status CawfOuiojefiapQfjkodLnfydlzu95-18-8256Ighxqxcohh StatusN/AExec[facility] Clinical Notes 10-06-2021 to 03-22-2025 Note Date & YzoyQhcdAmqdrodj76-54-4272 History of Present illness Narrative* Orin Sarmiento, 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 Lesion #1 Location: left ear Duration: years Quality: painful Associated symptoms: rough, raised Treatments: none Lesion #2 Location: left upper arm Duration: years Quality: denies pain, denies itch Associated symptoms: rough, scaly Treatments: none Lesion #3 Location: forehead/frontal scalp Duration: months Quality: itchy Associated symptoms: rough, raised Treatments: none New patient All pertinent medical history, medications, and allergies were reviewed. General Exam: alert, oriented to person, place, and time, normal affect, well appearing A focused exam completed based on patient reported problems, see below: Skin Exam 1. ACTINIC KERATOSIS (17) Left Buccal Cheek, Left Elbow - Posterior (3), Left Forearm - Posterior (2), Left Frontal Scalp, Left Mid [place], Left Scaphoid Fossa, Left Superior [place] (2), Left Upper Arm - Posterior, Left Zygomatic Area, Mid Frontal Scalp, Right Anterior Lobule, Right Frontal Scalp (2) Erythematous scaly papules Patient was counseled regarding these sun-induced growths that can develop into squamous cell carcinoma if left untreated. Discussed treatment with cryotherapy. It was emphasized that any treated lesions that fail to resolve should be re- evaluated. Cryotherapy performed today; see procedure note Diagnosis: Actinic keratosis Indication: Precancerous Location: see skin exam Consent: Verbal consent was obtained and risks were discussed, including, but not limited to risks of scarring, darker or bobcat operator pigmentary changes, recurrence, incomplete removal and infection. Method: Liquid nitrogen was used to treat the lesion(s) with two 5-10 second freeze-thaw cycles. Number of lesions treated: 17 Post-procedure instructions: Instructions were given orally and in writing. The office will be contacted if the lesion fails to resolve despite treatment, or if a side effect develops such as abnormal crusting, scabbing, redness or tenderness Cryotherapy, skin lesion - Left Buccal Cheek, Left Elbow - Posterior (3), Left Forearm - Posterior (2), Left Frontal Scalp, Left Mid [place], Left Scaphoid Fossa, Left Superior [place] (2), Left Upper Arm - Posterior, Left Zygomatic Area, Mid Frontal Scalp, Right Anterior Lobule, Right Frontal Scalp (2) 2. NEOPLASM OF UNSPECIFIED BEHAVIOR OF BONE, SOFT TISSUE, AND SKIN Left Upper Arm Hyperkeratotic papule Lesion biopsy Type of biopsy: tangential Informed consent: discussed and consent obtained Informed consent comment: The risks and benefits of the biopsy were discussed. Risks include but are not limited to bleeding, infection, scarring, pain, and nerve damage. An opportunity to ask questions prior to the procedure was permitted and all questions were answered. Patient was prepped and draped in usual sterile fashion: area cleansed with alcohol. Anesthesia: the lesion was anesthetized in a standard fashion Anesthetic: 1% lidocaine w/ epinephrine 1-100,000 buffered w/ 8.4% NaHCO3 Instrument used: DermaBlade Hemostasis achieved with: electrodesiccation Outcome: patient tolerated procedure well Outcome comment: The specimen was placed in a prelabeled formalin container to be sent for pathology Post-procedure details: sterile dressing applied and wound care instructions given Post-procedure details comment: Emphasized need to contact clinic for any signs of infection, uncontrollable bleeding, or complications. Dressing type: bandage Additional details: Photo taken Amount of lidocaine used: 1.0 cc Specimen A - Dermatopathology exam Differential Diagnosis: AK vs SCC Check Margins: No Size of lesion: 1.0 x 0.7 cm Next Visit: 6 months FBSE documented in this encounterCrittenton Behavioral HealthQqgqxtmlmh72-18-9226 Evaluation note* Diagnosis Onset Date Resolution Status Admit Date Dyspnea acuteAugust 2024 9:52amElevated cholesterolacuteAugust 2024 9:52am Gastroesophageal reflux disease with esophagitis without hemorrhageacuteAugust 2024 9:52amPrimary hypertensionacuteAugust 2024 9:52amSpondylosis without myelopathy or radiculopathy, lumbar regionacuteAugust 2024 9:52am Type 2 diabetes mellitus with hyperglycemiaacuteAugust 2024 9:52am [facility]ening [facility] colon cancernoneaP[facility] 2024 9:52am [facility] Work Phone: 1(481) 229-917803-07-2025 NoteProcedure: Vertiflex Superion Placement at L4-5 PREOPERATIVE and [...] 0.25% bupivacaine. A scalpel was used to makea stab incision down to the supraspinous ligament. A Vertiflex dilator was placed into the skin andadvanced using intermittent fluoroscopic guidance in an alternating AP and lateral images down to the lamina between L4 and L5. A series of dilators were used to place the working cannula in proper po sition, dorsal to the lamina. A measuring gauge [...] and decisions personally performed and made by theattending provider. It was created on his/her behalf by a trained medical assistant per diem. The creation of this document is based on the provider?s statements to the medical assistant per diem. Electronically signed by Dm Cyr MD 08/21/24 11:25 EST Electronically signed by Cyn Osorio 08/21/2024 11:18 [facility]03-07-2025 Note History of Present Illness HISTORY OF PRESENT ILLNESS The patient has [...] these reasons we will proceed as planned withthe pain management procedure. Procedure ? Pain Management Injection Physical Exam Vitals & Measurements T: 36.4 ?C (Temporal Artery) HR: 100 (Peripheral) RR: 16 BP: 140/95 SpO2: 97% HT: 195 cm WT: 115 kg(Dosing) Additional Vitals No qualifying data available. Assessment/Plan Spinal stenosis of lumbar region with neurogenic claudication (M48.062) This document serves as a record of the services and decisions personally performed and made by theattending provider. It was created on his/her behalf by a trained medical assistant per diem. The creation of this document is based on the provider?s statements to the medical assistant per diem. Problem List/Past Medical History Ongoing Acid reflux [...] Electronically signed by Cyn Osorio 08/21/2024 09:29 [facility]02-12-2024 Evaluation note* Encounter Date Diagnosis Assessment Notes Treatment Notes Treatment Clinical Notes Jul, Type 2 diabetes birdie itus with hyperglycemia, without long-term current use of insulin (ICD-10 - E11.65) [employer] Other 01-22-2024 Evaluation note* Encounter Date Diagnosis Assessment Notes Treatment Notes Treatment Clinical Notes Jun, Type 2 diabetes birdie itus with hyperglycemia, without long-term current use of [...] to continue basal insulin and add GLP-1i Jun,rimary hypertension (ICD-10 - I10)This patient is instructed to consume a healthy, low-fat, low-salt diet. They are also encouraged to continue exercise to achieve/maintain a normal BMI. Patient is instructed on home BP measurements: - rest for 5 minutes w/o talking.- positioned w/ feet on floor and arm supported.- average best 2/3 readings w/ goal < 135/85.- update office w/ homereadings in 2 weeks. Jun,Elevated cholesterol (ICD-10 - E78.00)Instructed on diet and exercise with continued statin therapy.Discussed the beneficial effects of lo wering cholesterol in reducing the risk for cerebrovascular and cardiovascular disease. Jun,Spondylosis without myelopathy or radiculopathy, lumbar region (ICD- 10 - M47.816)The patient is instructed to avoid bending, twisting or lifting. They are to use intermittent heat and ice as needed. They may schedule a massage or gentle manipulation. They may safely use Tylenol as needed. Reviewed pain management treatment - completed localizing injections w/ some benefit - planning ablation in near future Completed PT No improvement w/ injections would schedule MRI Jun,Gastro-esophageal reflux disease with esophagitis, without bleeding (ICD-10 - K21.00)Avoid lying flat after eating. Avoid eating 2 hours prior to bedtime. Smaller, frequent meals may be better tolerated.Weight loss if overweight.PPI with any heartburn.Monitor for dysphagia. Jun,Other obesity due to excess calories (ICD-10 - E66.09) Jun,ody mass index [BMI] 32.0-32.9, adult (ICD-10 - Z68.32) [employer] Other 11-24-2023 Evaluation note* Encounter Date Diagnosis Assessment Notes Treatment Notes Treatment Clinical Notes Apr, COVID-19 (ICD-10 - U07.1) Instructed to use Robitussin or Mucinex for cough, saline or Flonase NS for congestion, Tylenol forpain and fever. Age and diabetes increases risk [...] in public places for complete 10 days Apr,Type 2 diabetes mellitus with hyperglycemia (ICD-10 - E11.65)This patient is following a comprehensive diabetic treatment [...] Microalbumin, Dilated eye exam and Foot exam [facility] Other 11-15-2023 Evaluation note* Encounter Date Diagnosis [...] above visit was performed by [ ] underdirect supervision of [ ]. Document reviewed and amended by provider signed below. Apr,Type 2 diabetes mellitus with hyperglycemia, without long-term current use of insulin (ICD-10 - E11.65)This patient is following a comprehensive diabetic treatment [...] Microalbumin, Dilated eye exam and Foot exam Apr,rimary hypertension (ICD-10 - I10)This patient is instructed to consume a healthy, low-fat, low-salt diet. They are also encouraged to continue exercise to achieve/maintain a normal BMI. Apr,Elevated cholesterol (ICD-10 - E78.00)Instructed on diet and exercise with continued statin therapy.Discussed the beneficial effects of lo wering cholesterol in reducing the risk for cerebrovascular and cardiovascular disease. Apr,Spondylosis without myelopathy or radiculopathy, lumbar region (ICD- 10 - M47.816)The patient is instructed to avoid bending, twisting or lifting. They are to use intermittent heat and ice as needed. They may schedule a massage or gentle manipulation. They may safely use Tylenol as needed. Completed PT and continues HEP. Traction seemed to help the most. Continues w/ daily pain w/o radicular symptoms Recommend referral to pain management Apr,astro-esophageal reflux disease with esophagitis, without bleeding (ICD-10 - K21.00)Diet instructions: Smaller portions, avoid eating and laying flat, avoid eating or drinking prior to bedtime. Weight loss. Apr,Screening PSA (prostate specific antigen) (ICD-10 - Z12.5)Yearly JOHANNE and PSA Taking Proscar, requires to double PSA Apr,Hx of gout (ICD-10 - Z87.39)DIet instructions reviewed. No acute flares Sep,Thrombocytopenia, unspecified (ICD-10 - D69.6) [facility] 11-15-2023 Evaluation note* Encounter Date Diagnosis [...] above visit was performed by [ ] underdirect supervision of [ ]. Document reviewed and amended by provider signed below. Apr,Type 2 diabetes mellitus with hyperglycemia, without long-term current use of insulin (ICD-10 - E11.65)This patient is following a comprehensive diabetic treatment [...] Microalbumin, Dilated eye exam and Foot exam Apr,rimary hypertension (ICD-10 - I10)This patient is instructed to consume a healthy, low-fat, low-salt diet. They are also encouraged to continue exercise to achieve/maintain a normal BMI. Apr,Spondylosis without myelopathy or radiculopathy, lumbar region (ICD- 10 - M47.816)The patient is instructed to avoid bending, twisting or lifting. They are to use intermittent heat and ice as needed. They may schedule a massage or gentle manipulation. They may safely use Tylenol as needed. Completed PT and continues HEP. Traction seemed to help the most. Continues w/ daily pain w/o radicular symptoms Recommend referral to pain management Apr,Elevated cholesterol (ICD-10 - E78.00)Instructed on diet and exercise with continued statin therapy.Discussed the beneficial effects of lo wering cholesterol in reducing the risk for cerebrovascular and cardiovascular disease. Apr,astro-esophageal reflux disease with esophagitis, without bleeding (ICD-10 - K21.00)Diet instructions: Smaller portions, avoid eating and laying flat, avoid eating or drinking prior to bedtime. Weight loss. Apr,Screening PSA (prostate specific antigen) (ICD-10 - Z12.5)Yearly JOHANNE and PSA Taking Proscar, requires to double PSA Apr,Hx of gout (ICD-10 - Z87.39)DIet instructions reviewed. No acute flares Sep,Thrombocytopenia, unspecified (ICD-10 - D69.6) [facility] 11-08-2023 Evaluation note* Encounter Date Diagnosis Assessment Notes Treatment Notes Treatment Clinical Notes Apr, Screening PSA (prostate specific antigen) (ICD-10 - Z12.5) Apr,Type 2 diabetes mellitus with hyperglycemia, without long-term current use of insulin (ICD-10 - E11.65) Apr,Elevated cholesterol (ICD-10 - E78.00) Apr,rimary hypertension (ICD-10 - I10) Sep,Thrombocytopenia, unspecified (ICD-10 - D69.6)Thrombocytopenia [facility] 07-12-2023 Evaluation note* Encounter Date Diagnosis Assessment Notes Treatment Notes Treatment Clinical Notes Dec, Type 2 diabetes mellitus with hy perglycemia (ICD-10 - E11.65) This patient is following [...] prior to bkfst Continue Metformin Check A1C Dec,rimary hypertension (ICD-10 - I10)This patient is instructed to consume a healthy, low-fat, low-salt diet. They are also encouraged to continue exercise to achieve/maintain a normal BMI. Didn't take medication this morning. Patient is instructed on home BP measurements: - rest for 5 minutes w/o talking- positioned w/ feeton floor and arm supported- average best 2/3 readings w/ goal < 135-85 Dec,Elevated cholesterol (ICD-10 - E78.00)Instructed on diet and exercise with continued statin therapy.Discussed the beneficial effects of lo wering cholesterol in reducing the risk for cerebrovascular and cardiovascular disease. Dec,Lumbar spondylosis (ICD-10 - M47.816)The patient is instructed to avoid bending, twisting or lifting. They are to use intermittent heat and ice as needed. They may schedule a massage or gentle manipulation. They may safely use Tylenol as needed. Limiting daily activities - XR - Pain management - MRI if no improvement Likely lumbar canal stenosis Dec,Other obesity due to excess calories (ICD-10 - E66.09)This patient has been instructed on a low-fat, high-fiber diet. They are instructed to reduce calories, portion sizes and snacks. It is recommended that they exercise for 30 minutes, 3-5 times weekly. Dec,ody mass index [BMI] 31.0-31.9, adult (ICD-10 - Z68.31) Dec,Long term (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 (ICD-10 - Z79.4) [facility] Other 05-26-2023 Hospital Discharge instructions Patient Education [...] treatment? Where to find more information [employer]: www.cancer.org [employer]: www.auanet.org Contact a health care [...] provider. Document Revised: 11/27/2021 Document Reviewed: 11/27/2021 [email or web address] Patient Education 2022 [employer]. Follow Up Care 10/06/2021 08:40:21 With:JOSE MCMANUS, Johana Rushing, URL Address: [facility] [address] , [place] [address]- When: Unknown [facility] Kyree 05-08-2023 Evaluation note* Encounter Date Diagnosis Assessment Notes Treatment Notes Treatment Clinical Notes October, Primary hypertension (ICD-10 - I 10) [facility] 05-04-2023 Evaluation note* Encounter Date Diagnosis Assessment Notes Treatment Notes Treatment Clinical Notes October, Primary hypertension (ICD-10 - I 10) [facility] 04-21-2023 Evaluation note* Encounter Date Diagnosis Assessment Notes Treatment Notes Treatment Clinical Notes Sep, Primary hypertension (ICD-10 - I 10) This patient is instructed to consume a healthy, low-fat, low-salt diet. They are also encouraged to continue exercise to achieve/maintain a normal BMI. Increase Benazepril to 10mg qd. Monitor home BP and update office in week Sep,Elevated cholesterol (ICD-10 - E78.00)Diet and exercise with continued statin therapy. Sep,Type 2 diabetes mellitus with hyperglycemia (ICD-10 - E11.65)This patient is following a comprehensive diabetic treatment [...] and Glimepiride appear to be controlling BS. [facility] Other 04-13-2023 Evaluation note* Encounter Date Diagnosis Assessment Notes Treatment Notes Treatment Clinical Notes Sep, Type 2 diabetes mellitus with hy perglycemia (ICD-10 - E11.65) Sep,Long term (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 (ICD-10 - Z79.4) [facility] 04-11-2023 Evaluation note* Encounter Date Diagnosis Assessment Notes Treatment Notes Treatment Clinical Notes Sep, Type 2 diabetes birdie itus with hyperglycemia, without long-term current use of insulin (ICD-10 - E11.65) [facility] 04-07-2023 Evaluation note* Encounter Date Diagnosis Assessment Notes Treatment Notes Treatment Clinical Notes Sep, Type 2 diabetes mellitus with hy perglycemia (ICD-10 - E11.65) [facility] 03-09-2023 Evaluation note* Encounter Date Diagnosis Assessment Notes Treatment Notes Treatment Clinical Notes Aug, Type 2 diabetes birdie itus with hyperglycemia, without long-term current use of [...] office visit. A1C < 7%, good control Aug,rimary hypertension (ICD-10 - I10)This patient is instructed to consume a healthy, low-fat, low-salt diet. They are also encouraged to continue exercise to achieve/maintain a normal BMI. Aug,Elevated cholesterol (ICD-10 - E78.00)Diet and exercise with continued statin therapy. Aug,astroesophageal reflux disease with esophagitis without hemorrhage (ICD-10 - K21.00)Diet instructions: Smaller portions, avoid eating and laying flat, avoid eating or drinking prior to bedtime. Weight loss. Continue PPI Aug,Hx of gout (ICD-10 - Z87.39)Occasional attacks, reviewed diet instructions, continue Allopurinol. Recheck uric acid at wellness Aug,Lumbar spondylosis (ICD-10 - M47.816)The patient is instructed to avoid bending, twisting or lifting. They are to use intermittent heat and ice as needed. They may schedule a massage or gentle manipulation. They may safely use Tylenol as needed. Stretching exercise handouts given to patient. Reviewed treatment options: PT, injections Reviewed red flag symptoms and nerve impingement [facility] Other 02-28-2023 Evaluation note* Encounter Date Diagnosis Assessment Notes Treatment Notes Treatment Clinical Notes Jul, Type 2 diabetes birdie itus with hyperglycemia, without long-term current use of insulin (ICD-10 - E11.65) [facility] Other 04-22-2022 Hospital Discharge instructions Patient Education [...] urethra. Follow these instructions at home: Take [id number] and prescription medicines only as told by [...] 06/03/2006 Document Revised: 04/28/2019 Document Reviewed: 07/08/2017 [email or web address] Patient Education 2020 [employer]. Follow Up Care 10/03/2020 15:00:49 With:Johana GARCIA MD, URL Address: [facility] [address], [place] [address] [phone] When:10/06/2022 [facility] evaluation + Plan note Future Appointments Appointment Date:10/12/2022 08:00:00 AM Scheduled Provider:Johana GARCIA MD Location:[facility] Appointment Type:URO Office Visit Diagnostic Tests Pending * PSA Total 10/06/21 [facility] evaluation + Plan note Future Appointments Appointment Date:11/18/2023 08:45:00 AM Scheduled Provider:[facility]ARCIA [facility] Type:[facility]O Office Visit Diagnostic Tests Pending * PSA Free & Total 11/09/22 [facility] evaluation [facility] re[facility] Other Evaluation noteNo [facility] Other Evaluation note* Diagnosis Onset Date Resolution Status Elevated cholesterol acuteGastroesophageal reflux disease with esophagitis without hemorrhageacute ObesityacutePrimary hypertensionacuteSpondylosis without myelopathy or radiculopathy, lumbar regionacuteType 2 diabetes mellitus with hyperglycemia acute [facility] Work Phone: Evaluation note* Diagnosis Onset Date Resolution Status Elevated cholesterol acuteGastroesophageal reflux disease with esophagitis without hemorrhageacute Primary hypertensionacuteSpondylosis without myelopathy or radiculopathy, lumbar regionacuteType 2 diabetes mellitus with hyperglycemiaacute [facility] Work Phone: Evaluation note* Diagnosis Onset Date Resolution Status Admit Date Dyspnea acuteApril 2024 10:54amElevated cholesterolacuteApril 2024 10:54am Gastroesophageal reflux disease with esophagitis without hemorrhageacuteApril 2024 10:54amPrimary hypertensionacuteApril 2024 10:54amSpondylosis without myelopathy or radiculopathy, lumbar regionacuteApril 2024 10:54am Type 2 diabetes mellitus with hyperglycemiaacuteApril 2024 10:54am Screening for colon cancernoneactiveApril 2024 10:54am [facility] Work Phone: Evaluation note* Diagnosis Onset Date Resolution Status Admit Date Dyspnea acuteAugust 2024 9:52amElevated cholesterolacuteAugust 2024 9:52am Gastroesophageal reflux disease with esophagitis without hemorrhageacuteAugust 2024 9:52amPrimary hypertensionacuteAugust 2024 9:52amSpondylosis without myelopathy or radiculopathy, lumbar regionacuteAugust 2024 9:52am Type 2 diabetes mellitus with hyperglycemiaacuteAugust 2024 9:52am Screening for colon cancernoneactiveAugust 2024 9:52am [facility] Work Phone: Evaluation note* Diagnosis Actinic keratosis- Primary Neoplasm of unspecified behavior of bone, soft tissue, and skin documented in this encounter [facility] Narrative - Reported* Type Description Date Medical History Controlled type 2 di abetes mellitus with hyperglycemia, without long-term current use of insulin Medical HistoryPrimary hypertensionMedical HistoryElevated cholesterolMedical HistoryGastroesophageal reflux disease with esophagitis without hemorrhage Medical HistoryAdenomatous polyp of descending colonMedical HistoryLumbar spondylosisSurgical [id number],2013,2020Surgical HistoryCYSTOSCOPY 2016Hospitalization HistorySEE SURGICAL HX [facility] Other History general Narrative - ReportedNossm rehab [facility] Other History general Narrative - Reported* Type Description Date Medical History Controlled type 2 di abetes mellitus with hyperglycemia, without long-term current use of insulin Medical HistoryPrimary hypertensionMedical HistoryElevated cholesterolMedical HistoryGastroesophageal reflux disease with esophagitis without hemorrhage Medical HistoryAdenomatous polyp of descending colonMedical HistoryLumbar spondylosisSurgical HistoryCOLONOSCOPY, (repeat 2024)2002,2013,2020Surgical [id number] HistorySEE SURGICAL [facility] Other Hospital course Narrative No data available for this section [facility] Discharge instructionsAdditional Instructions DISCHARGE INSTRUCTIONS FOR COLONOSCOPY WHAT TO [...] NOT operate machinery such as power tools, lawn mowers, snow blowers, sewing machines, etc. for [...] you have any problems. -Repeat colonoscopy in 3 years. -Follow up with PCP. -Office number [phone]. [facility] Work Phone: Progress note No data available for this section [facility] reason for referral (narrative)No reason for referral information availableMet[facility] Work Phone: Summary Purpose Family History No Family History Records Found Relationship Condition Age at Onset Recorded Date/T marbella father Heart disease Unknown HypertensionUnknownDiabetes mellitusUnknownDeceasedUnknownNot SpecifiedDeceased Unknown Relationship Condition Age at Onset Recorded Date/T marbella father Heart disease Unknown HypertensionUnknownDiabetes mellitusUnknownDeceasedUnknownmotherDeceasedUnknown Advance Directives No Advanced Directives Records Found Advance Directive Response Recorded Date/ Time Advance Directives No July 06, 2023 1:00pm Advance Directive Response Recorded Date/ Time Advance Directives No July 06, 2023 12:00pm Reason for Referral Reason *FU 05/16 Mr. Christianson er is being referred for chronic low back pain. Diagnosis 1 Medicare annual well ness visit, initial (Z00.00) Referral Organization [facility] Edmond de la cruz Referring Provider First Name Bogdan Referring Provider Last Name Edmond Referring Provider Specialty Internal Me zuleima Referred Organization [facility] Referred Provider Swapnil French Referred Address [address] [place], [place],[address] Referred Provider Specialty Pain Medicin e Referral [...] >received today, attachments made, notes locked, referral faxedClinical NotesInclude XR lumbar spine f: [phone] Chief Complaint and Reason for Visit Chief Complaint Admit Date A1C 4 mo f/u February 09, 2025 9: 52am hx of colon polyps April 26, 2025 8:47am Reason for Visit Admit Date Dyspnea February [...] for colon cancer February 09, 2025 9:52am Chief Complaint Amb Documentation Amb Documentation Amb Documentation 3 month follow up (LM FOR PATIENT TO RESCHDULE)Reason for VisitElevated cholesterol Gastroesophageal reflux disease with esophagitis without [...] 10:54am Screening for colon cancer October 07, 025 10:54am Chief Complaint Admit Date A1C 4 mo f/u February 09, 2025 9: 52am Additional Source Comments (unrecognized sect ion and content) No Status Records FoundNo Status Records FoundNo Status Records FoundNo Status Records FoundNo Status Records Found INFORMATION SOURCE (unrecogn ized section and content) DATE CREATED AUTHOR 08/22/2022 [facility] DATE CREATED AUTHOR AUTHOR'S ORGANIZ ATION 11/14/2023 [facility] DATE CREATED AUTHOR AUTHOR'S ORGANIZ ATION 08/25/2024 [facility] DATE CREATED AUTHOR AUTHOR'S ORGANIZ ATION 03/25/2025 [facility] DATE CREATED AUTHOR AUTHOR'S ORGANIZ ATION 04/28/2025 [facility] REASON FOR VISIT (unrecogniz ed section and content) ReasonCommentsSuspicious Skin LesionBS readingsElevated blood [id number] PositiveWellnesslabsLab ResultsBP readingsrefillelevated BPMedication4 MONTH FOLLOW UP Patient Care team informatio n (unrecognized section and content) Team Status: Active Member Role Status Dates Bogdan Pruitt DO Primary Care Provider Active Team Status: Active Member Role Status Dates Bogdan Pruitt DO Primary Care Provide r, Attending Provider Active Start: July 30, 2023 Team Status: Active Member Role Status Dates Bogdan Pruitt DO Primary Care Provider Active Start: August 16, 2023 Alejo Max ProviderActiveStart: August 16, 2023 Team Status: Active Member Role Status Dates Bogdan Pruitt DO Primary Care Provider Active Start: August 23, 2023 Alejo Alvarez ProviderActiveStart: August 23, 2023 Team Status: Active Member Role Status Dates Bogdan Pruitt DO Primary Care Provide r, Attending Provider Active Start: October 12, 2023 Team Status: Inactive Member Role Status Dates Bogdan Ball , DO Primary Care Provide r, Attending Provider Active Start: October 18, 2023 End: October 18, 2023 Team Status: Active Member Role Status Dates Bogdan Pruitt , DO Primary Care Provide r, Attending Provider Active Start: February 11, 2024 Team Status: Inactive Member Role Status Dates Bogdan Pruitt , DO Primary Care Provide r, Attending Provider Active Start: February 18, 2024 End: February 18, 2024 Team Status: Active Member Role Status Dates Bogdan Pruitt , DO Primary Care Provide r, Attending Provider Active Start: October 05, 2024 Team Status: Inactive Member Role Status Dates Bogdan Pruitt , DO Primary Care Provide r, Attending Provider Active Start: October 07, 2024 End: October 07, 2024 Team Status: Active Member Role Status Dates Bogdan Pruitt Primary Care Provider Active Start: February 03, 2025 Bogdan Pruitt , Attending ProviderActiveStart: February 03, 2025 Team Status: Inactive Member Role Status Dates Bogdan Pruitt , Primary Care Provider Active Start: February 09, 2025 End: February 09stefanojuan Pruitt , DOAttending ProviderActiveStart: February 09, 2025 End: February 09, 2025 Team Status: Active Member Role/Relationship Status Dates Bogdan Pruitt Primary Care Provider Active Team Status: Active Member Role/Relationship Status Dates Bogdan Pruitt Primary Care Provider Active Start: February 03, 2025 Bogdan Pruitt , Attending ProviderActiveStart: February 03, 2025 Team Status: Inactive Member Role/Relationship Status Dates Bogdan Pruitt , DO Primary Care Provider Active Start: February 09, 2025 End: February 09envenanciojuan Pruitt DOAttending ProviderActiveStart: February 09, 2025 End: February 09, 2025 Team Status: Active Member Role/Relationship Status Dates Bogdan Pruitt , Primary Care Provider Active Start: April 26, 2025 Taylor Frankending ProviderActiveStart: April 26, 2025 Primitivo Frank ProviderActiveStart: April 26, 2025 Goals (unrecognized section and content) Goals may [...] BE BASED ON THE PRIMARY CLINICAL RECORDS. [facility] [employer] [place] [facility]. provides no warranty or guarantee of the accuracy or completeness of information in this document.
--- OUTSIDE RECORDS SUMMARY | 2025-05-10 11:00 | XMS_ITS | Encounter Summary ---
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 Subjective Esdras Correa is a 69 y.o. male who presents for the following: Excision Location: Left upper arm Date of biopsy: 03/22/2025 Diagnosis: Squamous cell carcinoma in situ Pre-Op Checklist: History of pacemaker/defibrillator: No History of joint replacement in the past 2 years: No History of HIV/Hepatitis B/Hepatitis C: No Latex allergy: No Is the patient currently on a blood thinner? No Follow up Diagnosis: Actinic Keratoses Location: Left ear, and left scalp Last visit: 03/22/2025 Status: Not completely resolved Procedure performed: Cryotherapy Number of treatments to date: 1 All pertinent medical history, medications, and allergies were reviewed. Surgical assistants: Reinier Fernández LPN and Pedro Pablo Wilson MA Objective Well appearing patient in no apparent distress; mood and affect are within normal limits. Skin Exam 1. SQUAMOUS CELL CARCINOMA IN SITU (SCCIS) OF SKIN OF LEFT UPPER ARM Left Upper Arm Erythematous macule at the biopsy site - Skin excision Lesion length (cm): 1 Lesion width (cm): 0.7 Margin per side (cm): 0.3 Total excision diameter (cm): 1.6 Informed consent: discussed and consent obtained Informed consent comment: Risks and possible complications were discussed as noted on the consent form. The consent form was signed prior to the procedure. Timeout: patient name, date of , surgical site, and procedure verified Timeout comment: Patient and provider identified site. Site was marked and excision was drawn out. Photo was taken and shown to patient, patient verified this is the correct site. Procedure prep: Patient was prepped and draped in usual sterile fashion (The planned incision lineswere drawn along relaxed skin tension lines, if possible, to minimize scarring and deformity of surrounding structures.) Prep type: Chlorhexidine Anesthesia: the lesion was anesthetized in a standard fashion Anesthesia comment: The local anesthetic was injected to create a field block at the site of the procedure. Anesthetic: 1% lidocaine w/ epinephrine 1-100,000 buffered w/ 8.4% NaHCO3 Instrument used: #15 blade Instrument used comment: Incisions were made as drawn, and the surrounding tissue was undermined until the skin edges could be approximated without undue tension. Any tissue redundancies were removed. Hemostasis achieved with: electrodesiccation Additional details: Amount of lidocaine used: 9.0 ml Estimated blood loss: 1.0 ml - Skin repair Complexity: Intermediate Final length (cm): 4.5 Reason for type of repair: allow closure of the large defect Undermining: edges undermined Undermining comment: The surrounding tissue was undermined until the skin edges could be approximated without undue tension. Any tissue redundancies were removed. Subcutaneous layers (deep stitches): Suture size: 4-0 Suture type: Monocryl (poliglecaprone 25) Stitches: Buried horizontal mattress (Closure was performed in a layered fashion with subcutaneous tissue closed first using tension-bearing absorbable sutures to the level of the superficial fascia.) Fine/surface layer approximation (top stitches): Suture size: 4-0 Suture type: Monocryl (poliglecaprone 25) Stitches: simple running Stitches comment: Epicuticular skin sutures were then placed with minimal tension. Suture removal (days): 14 Hemostasis achieved with: suture and electrodesiccation Outcome: patient tolerated procedure well with no complications Post-procedure details: sterile dressing applied and wound care instructions given Post-procedure details comment: It was emphasized to the patient to contact the office for any signs of infection, uncontrollable bleeding, or complications. Dressing type: pressure dressing Specimen A - Dermatopathology exam Differential Diagnosis: SCCIS Check Margins: Yes Size of lesion: 1.0 x 0.7 cm Previous accession number: [id number] 2. NEOPLASM OF UNCERTAIN BEHAVIOR OF SKIN (2) Left antihelix Hyperkeratotic papule Left Parietal Scalp Hyperkeratotic papule Due to insurance restraints, plan to biopsy at suture removal in 14 days Follow up: 14 days for s/r and biopsies documented in this encounter Plan of Treatment DateTypeDepartmentCare Team (Latest Contact Info)Vzbmaaqsqkf16/08/2025 11:25 AM ESTOffice Visit [facility] [address] [address] Za Huitron MD [address] [facility] [address] [place] [address] 09/27/2025 1:05 PM EDTOffice Visit [facility] [address] [facility] [address] [place] [address] Kamala Sarmiento, NEUROLOGY TECHNICIAN-PRIVATE WATCHMAN [address] [place], [place] [id number] NameTypePriorityAssociated DiagnosesOrder ScheduleDermatopathology examPathology and CytologyTimed 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 Release Upon Ordering for 1 Occurrences starting 05/10/2025documented as of this encounter Procedures Procedure NamePriorityDate/TimeAssociated DiagnosisCommentsSKIN REPAIRRoutine 05/10/2025 10:58 AM EST 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 Undermining: edges undermined ?? Undermining comment: ??The surrounding tissue was undermined until the skin edges could be approximated without undue tension. Any tissue redundancies were removed. Subcutaneous layers (deep stitches): Suture size: ??4-0 Suture type: Monocryl (poliglecaprone 25) ?? Stitches: ??Buried horizontal mattress (Closure was performed in a layered fashion with subcutaneous tissue closed first using tension-bearing absorbable sutures to the level of the superficial fascia.) Fine/surface layer approximation (top stitches): Suture size: ??4-0 Suture type: Monocryl (poliglecaprone 25) ?? Stitches: simple running ?? Stitches comment: ??Epicuticular skin sutures were then placed with minimal tension. Suture removal (days): ??14 Hemostasis achieved with: suture and electrodesiccation Outcome: patient tolerated procedure well with no complications ?? Post-procedure details: sterile dressing applied and wound care instructions given ?? Post-procedure details comment: ??It was emphasized to the patient to contact the office for any signs of infection, uncontrollable bleeding, or complications. Dressing type: pressure dressing ?? Authorizing ProviderResult TypeResult StatusEmily A Petitti MDDVALLEY HOSPITAL PROCEDURE ORDERABLESFinal Result * Skin excision (05/10/2025 10:58 AM EST) Narrative Erin Wilkerson, MICHAEL - 05/10/2025 10:58 AM EST Lesion length (cm): 1 Lesion width (cm): ??0.7 Margin per side (cm): ??0.3 Total excision diameter (cm): ??1.6 Informed consent: discussed and consent obtained ?? Informed consent comment: ??Risks and possible complications were discussed as noted on the consent form. The consent form was signed prior to the procedure. Timeout: patient name, date of , surgical site, and procedure verified ?? Timeout comment: ??Patient and provider identified site. Site was marked and excision was drawn out. Photo was taken and shown to patient, patient verified this is the correct site. Procedure prep: ??Patient was prepped and draped in usual sterile fashion (The planned incision lines were drawn along relaxed skin tension lines, if possible, to minimize scarring and deformity of surrounding structures.) Prep type: ??Chlorhexidine Anesthesia: the lesion was anesthetized in a standard fashion ?? Anesthesia comment: ??The local anesthetic was injected to create a field block at the site of the procedure. Anesthetic: ??1% lidocaine w/ epinephrine 1-100,000 buffered w/ 8.4% NaHCO3 Instrument used: #15 blade ?? Instrument used comment: ??Incisions were made as drawn, and the surrounding tissue was undermined until the skin edges could be approximated without undue tension. Any tissue redundancies were removed. Hemostasis achieved with: electrodesiccation ?? 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
--- OUTSIDE RECORDS SUMMARY | 2025-05-12 06:37 | XMS_ITS | CCD ---
Author Organization [facility] Care Team Providers Care Senior Software Manager Name Role Phone BOGDAN PRUITT Primary Care Physician DR BOGDAN PRUITT Primary Care Unavailable FRANCISCA [...] Unavailable Klarissa MCMANUS, Dm Santos Attending Unavailable Klairssa MCMANUS, Dm Santos Attending Unavailable Klarissa MCMANUS, Dm Santos Attending Unavailable Klarissa MCMANUS, Dm Santos Attending Unavailable Bogdan Pruitt DO Primary Care Unavail able Bogdan Pruitt DO Primary Care Provider [phone] Bogdan Pruitt DO Attending Provider Unavailable Primary Care Provider ORIN Rajput Attending Unavailable Ball DO, Bogdan Primary Care Provider Bogdan Pruitt DO Attending Provider Victor Manuel Ohara MD Attending Provider Victor Manuel Ohara MD Other Provider Bogdan Pruitt Primary Care Unavailable Victor Manuel Ohara Attending Unavailable Asajude Imjude Admitting Unavailable Allergies Allergy ClassificationReported Allergen(s)Allergy TypeDate of OnsetReaction(s) Facility (2 sources)patient allergy list reviewed by nurse or physiciaPropensity to adverse ziqyhkfwu16-29-1066Tizlvln:[employer] Other (2 sources)No Known Medication Allergies; Translations: [No Known Medication Allergies]Propensity to adverse reactions (disorder)[facility] Repository Medications Current Medications MedicationDrug Class(es)DatesSig (Normalized)Sig (Original)allopurinol 100 mg oral tablet (20 sources)Xanthine Oxidase InhibitorStart: 79-17-6585gsjv 1 tablet by mouth once dailyAllopurinol 100 mg tablet Active 100 MG PO Daily 90 90 3 March 07, 2025 4:00pm Complies with drug therapyStart: 03-10-2024 End: 36-83-6015jxql 1 tablet by mouth once dailyAllopurinol 100 mg tablet Discontinued 0 .ROUTE .COMPLEX 30 March 10, 2024 6:38am March 07, 2025 4:01pm TAKE 1 TABLET BY MOUTH EVERY DAY FOR 30 DAYSStart: 07-27-2023 End: 13-63-8504qgcr 1 tablet by mouth once dailyAllopurinol 100 mg tablet Discontinued 1 TAB PO Daily July 27, 2023 12:00am March 10, 2024 6:38am FreeTextSi tablet Orally Once a day; Note: Source Status: Taking; Refills: 12; Qty: 30 Tablet; Provider: Edmond Mcfadden EStart: 21-00-6352ascz 1 mg by mouth twice dailyallopurinol 100 mg Tab mg tab(s), Oral, BID, Refills(s) 0 Start Date: 10/06/21 Status: OrderedamLODIPine 5 mg oral tablet (20 sources)Dihydropyridine Calcium Channel BlockerStart: 90-86-3907uaar 1 tablet by mouth once dailyamLODIPine (Norvasc) 5 MG tablet TAKE 1 TABLET BY MOUTH EVERY DAY FOR 90 DAYS 01/07/2025 ActiveStart: 54-28-6105ndho 1 tablet by mouth once dailyAmlodipine 5 mg tablet Active 0 .ROUTE .COMPLEX 90 3 February 12, 2024 6:38am TAKE 1 TABLET BY MOUTH EVERY DAY FOR 90 DAYS Complies with drug therapyStart: 10-22-2022 End: 91-74-1216zkow 1 tablet by mouth once dailyAmlodipine 5 mg tablet Discontinued 1 TAB PO Daily July 27, 2023 12:00am February 12, 2024 6:38am FreeTextSi tablet Orally Once a day; Note: Source Status: Continue; Provider: Edmond Mcfadden ( )atorvastatin 10 mg oral tablet (20 sources)HMG-CoA Reductase InhibitorStart: 62-76-5418umzn 1 tablet by mouth once dailyatorvastatin (Lipitor) 10 MG tablet Take 10 mg by mouth Daily 02/24/2025 ActiveStart: 20-81-8858kqdp 1 tablet by mouth once dailyAtorvastatin 10 mg tablet Active 0 .ROUTE .COMPLEX 30 11 July 07, 2024 7:30am TAKE 1 TABLET BYMOUTH EVERY DAY Complies with drug therapyStart: 11-09-2022 End: 74-57-8457uynp 1 tablet by mouth once dailyAtorvastatin 10 mg tablet Discontinued 1 TAB PO Daily July 27, 2023 12:00am July 07, 2024 7:30am FreeTextSig: TAKE 1 TABLET BY MOUTH EVERY DAY; Note: Source Status: Start; Refills: 11; Qty: 30 Tablet; Provider: Edmond Mcfadden ( ) brimonidine tartrate 2 mg/ml ophthalmic solution (2 sources)alpha-Adrenergic AgonistStart: 30-06-4726dwgr 1 drop(s) into the eye(s) twice dailyBrimonidine 0.2 % drops Active 1 DROPS EYE-BOTH Twice daily April 11, 2025 11:00pm Complies with drug therapyStart: 46-58-9516qpja 1 drop(s) into the eye(s) twice dailybrimonidine (AlphaGAN P) 0.2 % ophthalmic solution PLACE 1 DROP INTO BOTH EYES TWICE A DAY 12/06/2024 ActiveDulaglutide 3 mg/0.5 mL pen injector (4 sources)Start: 94-37-7635Pjsdpkqwxmn 3 mg/0.5 mL pen injector Active 3 MG SUBCUT every week 2 September 07, 2024 5:59pmStart: 07-22-2024 End: 09-06-8433Zhmzbrirnoc 3 mg/0.5 mL pen injector Discontinued 3 MG SUBCUT every week 2 July 22, 2024 2:01pm September 07, 2024 5:59pmStart: 07-21-2024 End: 89-48-2519Uuhfktfrhcj 3 mg/0.5 mL pen injector Discontinued 1.5 MG SUBCUT every week 1 July 21, 2024 10:04am July 22, 2024 2:02pmStart: 04-21-2024 End: 29-40-0127Kacmfimetfs 3 mg/0.5 mL pen injector Discontinued 3 MG SUBCUT every week 2 April 21, 2024 5:16pm May 18, 2024 11:09amfinasteride 5 mg oral tablet (20 sources)5-alpha Reductase InhibitorStart: 05-18-2024 End: 77-27-7110rlvs 1 tablet by mouth once dailyfinasteride (Proscar) 5 MG tablet Take 5 mg by mouth Daily 03/07/2025 ActiveStart: 07-27-2023 End: 19-33-5192jwpn 1 tablet by mouth twice dailyFinasteride 5 mg tablet Discontinued 1 TAB PO Twice daily July 27, 2023 12:00am May 10:23am FreeTextSi tablet Orally twice a day; Note: Source Status: Taking; Provider: Edmond Mcfadden ( )Start: 11-09-2022 End: 15-10-5676ohnm 1 tablet by mouth once dailyfinasteride 5 mg Tab 5 mg = 1 tab(s), Oral, Daily, X 90 day(s), # 90 tab(s), Refills(s) 3, Pharmacy: [facility]/pharmacy #[id number], 195, cm, 11/09/22 11:00:00 EDT, Height/Length Dosing, 111, kg, 05/26/23 11:00:00 EDT, Weight Dosing Start Date: 11/09/22 Stop Date: 11/04/23 Status: OrderedStart: 18-79-3979kcee 1 tablet by mouth once dailyfinasteride 5 mg Tab 5 mg = 1 tab(s), Oral, Daily, # 90 tab(s), Refills(s) 3, Pharmacy: [facility]/pharmacy #[id number], 195, cm, 10/06/21 8:16:00 EDT, Height/Length Dosing, 109.5, kg, 10/06/21 8:16:00 EDT, Weight Dosing Start Date: 10/06/21 Status: Ordered glimepiride 4 mg oral tablet (20 sources)SulfonylureaStart: 76-75-3674lzxf 2 tablets by mouth once daily at mealtimeglimepiride (Amaryl) 4 MG tablet TAKE 2 TABLETS BY MOUTH ONCE A DAY 30 MINUTES PRIOR TO FIRST MEAL OF THE DAY 03/07/2025 ActiveStart: 12-22-2023 End: 85-19-3521vewq 2 tablets by mouth once daily at mealtimeGlimepiride 4 mg tablet Active 0 .ROUTE .COMPLEX 60 December 31, 2024 7:35am TAKE 2 TABLETS BY MOUTH ONCE DAILY 30 MINUTES PRIOR TO FIRST MEAL OF THE DAY Complies with drug therapyStart: 07-27-2023 End: 08-05-9644ymlv 2 tablets by mouth once dailyGlimepiride 4 mg tablet Discontinued 2 TAB PO Daily July 27, 2023 12:00am October 28, 2023 4:39pm FreeTextSi tablets Orally once a day; Note: Source Status: Continue; Provider: Edmond Mcfadden EStart: 07-27-2023 End: 41-90-9324ptir 1 tablet by mouth once dailyGlimepiride 4 mg tablet Discontinued 4 MG PO Daily 30 30 5 October 29, 2023 12:09pm December 22, 2023 1:14pm Start: 10-51-3256llxncatepno 4 mg Tab Refills(s) 0 Start Date: 11/09/22 Status: OrderedGlimepiride 4 MG 2 tablets taken 30 minutes prior to first meal of day Orally Once a day Activelatanoprost 0.05 mg/ml ophthalmic solution (5 sources)Prostaglandin AnalogStart: 50-81-7265roaqerhkpmk (Xalatan) 0.005 % ophthalmic solution INSTILL 1 DROP INTO BOTH EYES BEFORE BED 01/07/2025 Active Start: 20-28-7837mfss 1 drop(s) into the eye(s) once dailyLatanoprost 0.005 % drops Active 1 DROPS EYE-BOTH Daily February 17, 2024 11:00pm Complies with dr ug therapyStart: 83-57-7926czmm 1 drop(s) into the eye(s) once dailyLatanoprost 0.005 % drops Active 1 DROPS EYE-BOTH Daily February 18, 2024 12:00amStart: 58-76-3931drdq 1 drop(s) into the eye(s) once dailyLatanoprost Active 1 DROPS EYE-BOTH Daily February 18, 2024 12:00ammetFORMIN hydrochloride 1000 mg oral tablet (20 sources)BiguanideStart: 09-16-2023 End: 23-80-9111pxjd 1 tablet by mouth before breakfastMetformin 1,000 mg tablet Active 0 .ROUTE .COMPLEX 180 3 September 06, 2024 4:06pm TAKE 1 TABLET BY MOUTH BEFORE BREAKFAST AND EVENING MEAL Complies with drug therapyStart: 09-16-2023 take 1 tablet by mouth before breakfastMetformin Active 0 .ROUTE .COMPLEX 180 September 16, 2023 5:10pm TAKE 1 TABLET BY MOUTH BEFORE BREAKFAST AND EVENING MEAL Start: 03-25-2019 End: 62-44-9122qcaq 1 tablet by mouth twice daily at mealtimeMetformin 1,000 mg tablet Discontinued 1000 MG PO Twice daily with meals July 27, 2023 12:00am September 16, 2023 4:10pmMounjaro 2.5 MG/0.5ML solution auto-injector (1 source)Start: 05-52-6477fcmzij 2.5 mg by subcutaneous injection every week Mounjaro 2.5 MG/0.5ML solution auto-injector INJECT 2.5MG SUBCUTANEOUSLY ONCE EVERY WEEK 02/10/2025tiveomeprazole 20 mg delayed release oral tablet (13 sources)Proton Pump InhibitorStart: 30-43-1031invb 1 tablet by mouth once dailyOmeprazole Magnesium [...] 20 mg tablet,delayed release (DR/EC) (3 sources)Start: 54-14-1419dbri 1 tablet by mouth once dailyOmeprazole Magnesium (Prilosec Otc) 20 mg tablet,delayed release (DR/EC) Active 20 MG PO Daily July 27, 2023 1:00amOneTouch Ultra - (19 sources)OneTouch Ultra - USE TO TEST BLOOD SUGAR ONCE A DAY for 50 Active paxlovid (300/100) 20 x 150 mg & 10 x 100mg tablet therapy pack (3 sources)Start: 48-09-2137Zkrmbzvw (300/100) 20 x 150 MG & 10 x 100MG as directed Orally bid for 5 days Apr, ActivePen [place] 5/16 (15 sources)Start: 88-88-3205Ctjht: 29-76-5717Xqc [place] 5/16 Use to inject insulin qd SC daily for 30 days Sep, Activetamsulosin hydrochloride 0.4 mg oral capsule (20 sources)alpha-Adrenergic BlockerStart: 42-24-2158rzru 1 capsule by mouth every twenty-four hours in the morningtamsulosin (Flomax) 0.4 MG 24 hr capsule Take 0.4 mg by mouth in the morning and 0.4 mg before bedtime. 01/14/2025 Active Start: 10-06-2021 End: 31-32-5767cske 1 capsule by mouth twice dailyTamsulosin 0.4 mg capsule Discontinued 1 CAP PO Twice daily July 27, 2023 12:00am November 26, 2024 9:12am FreeTextSi capsule Orally twice a day; Note: Source Status: Taking; Provider: Edmond Mcfadden ( )telmisartan 40 mg oral tablet (4 sources)Angiotensin 2 Receptor BlockerStart: 46-18-1169cnyf 1 tablet by mouth once dailytelmisartan (MIcarDIS) 40 MG tablet Take 40 mg by mouth Daily 02/20/2025 ActiveTirzepatide (3 sources)Start: 74-29-5580Xlmnmqcwyrk (Mounjaro) 2.5 mg/0.5 mL pen injector Active 2.5 MG SUBCUT every week March 30, 2025 12:16pm for 4 weeks Complies with drug therapyStart: 02-09-2025 End: 10-00-8098Akjkxiaiqjc (Mounjaro) 2.5 mg/0.5 mL pen injector Discontinued 2.5 MG SUBCUT every week February 08, 2025 11:00pm March 30, 2025 12:16pm for 4 weeksStart: 55-33-9942Qjpdthvyjcj (Mounjaro) 2.5 mg/0.5 mL pen injector Active 2.5 MG SUBCUT every week January 12:00am for 4 weeks Complies with drug therapy{20 (nirmatrelvir 150 MG Oral Tablet) / 10 (ritonavir 100 MG Oral Tablet) } Pack [Paxlovid 5-Day] (1 source)Start: 33-96-0421Owqvtxqe (300/100) 20 x 150 MG & 10 x 100MG as directed Orally bid for 5 days Apr, Active Completed/Discontinued Medications MedicationDrug Class(es)DatesSig (Normalized)Sig (Original)ascorbic acid 4700 mg / polyethylene glycol 3350 895621 mg / potassium chloride 1015 mg / sodium asc orbate 5900 mg / sodium chloride 2690 mg / sodium sulfate 7500 mg powder for oral solution (19 sources)Osmotic Laxative, Vitamin CStart: 25-89-1507ZkhaNfxo 100 GM as directed Orally as directed for 1 dose(s) Mar, Not-Taking/PRN azithromycin 250 mg oral tablet (10 sources)Macrolide AntimicrobialStart: 77-95-0025Igsgedxtnquu 250 MG as directed Orally 2 tabs po today, then 1 tab daily x 4 more days for 5 Nov, Not-Taking/PRNbenazepril hydrochloride 20 mg oral tablet (20 sources)Angiotensin Converting Enzyme InhibitorStart: 02-12-2024 End: 57-30-4376qckz 1 tablet by mouth once dailyBenazepril 20 mg tablet Discontinued 0 .ROUTE .COMPLEX 90 3 February 12, 2024 6:38am May 18, 2024 10:19am TAKE 1 TABLET BY MOUTH EVERY DAY FOR 90 DAYSStart: 86-68-6633qrnl 1 tablet by mouth once dailyBenazepril Active 0 .ROUTE .COMPLEX 90 February 12, 2024 7:38am TAKE 1 TABLET BY MOUTH EVERY DAY FOR 90 DAYSStart: 07-27-2023 End: 07-36-8764pimk 1 tablet by mouth once dailyBenazepril 20 mg tablet Discontinued 1 TAB PO Daily July 27, 2023 12:00am February 12, 2024 6:38am FreeTextSi tablet Orally Once a day; Note: Source Status: Continue; Provider: Edmond Mcfadden ( )Start: 09-33-8537sknm 1 tablet by mouth once dailybenazepril 5 mg oral tablet 5 mg = 1 tab(s), Oral, Daily Start Date: 03/25/19 Status: Orderedtake 1 tablet by mouth every twenty-four hours Benazepril HCl 10 MG 1 tablet Orally Once a day for 30 days Activebenzonatate 200 mg oral capsule (10 sources)Non-narcotic AntitussiveStart: 43-69-4782jubj 1 capsule by mouth every eight hoursBenzonatate 200 MG 1 capsule Orally Three times a day for 10 day(s) Nov, Not-Taking/PRNBlood Sugar Diagnostic (2 sources)Start: 08-16-2023 End: 58-10-7219Dxbao Sugar Diagnostic Discontinued 0 .Route 50 August 16, 2023 1:00am August 16, 2023 6:08pm As directedDulaglutide (20 sources)GLP-1 Receptor AgonistStart: 09-07-2024 End: 69-45-1057Lkdybseblwo 3 mg/0.5 mL pen injector Discontinued 3 MG SUBCUT every week 08 14 10September 07, 2024 4:59pm February 09, 2025 9:28amStart: 09-07-2024 End: 73-71-1162Fhpdeevxwmw 3 mg/0.5 mL pen injector Discontinued 3 MG SUBCUT every week 2 September 07, 2024 5:59pm February 09, 2025 10:28amStart: 07-22-2024 End: 87-92-7279Mqvhgaeerww 3 mg/0.5 mL pen injector Discontinued 3 MG SUBCUT every week 2 11 11July 22, 2024 1:01pm September 07, 2024 4:59pmStart: 07-22-2024 End: 46-79-2296Egaqwwdmwsi 3 mg/0.5 mL pen injector Discontinued 3 MG SUBCUT every week 2 July 22, 2024 2:01pm September 07, 2024 5:59pmStart: 07-21-2024 End: 39-30-8536Xfnvxqoohvr 3 mg/0.5 mL pen injector Discontinued 1.5 MG SUBCUT every week 1 11 11July 21, 2024 9:04am July 22, 2024 1:02pmStart: 07-21-2024 End: 21-02-7058Odrlpmetdpa 3 mg/0.5 mL pen injector Discontinued 1.5 MG SUBCUT every week 1 July 21, 2024 10:04am July 22, 2024 2:02pmStart: 05-18-2024 End: 24-69-5972Tvdesuscusf 1.5 mg/0.5 mL pen injector Discontinued 1.5 MG SUBCUT every week 2 11 11May 18, 2024 10:07am July 21, 2024 9:04amStart: 04-21-2024 End: 28-79-9110Clidipcyghw 3 mg/0.5 mL pen injector Discontinued 3 MG SUBCUT every week 2 14 08April 21, 2024 4:16pm May 18, 2024 10:09amStart: 04-21-2024 End: 04-08-3542Hoaawymngnu 3 mg/0.5 mL pen injector Discontinued 3 MG SUBCUT every week 2 April 21, 2024 5:16pm May 18, 2024 11:09amStart: 12-03-2023 End: 74-00-5549Ddosqflvidd (Trulicity) 1.5 mg/0.5 mL pen injector Discontinued 1.5 MG SUBCUT every week 2 14 08March 20, 2024 11:40am April 21, 2024 4:16pmStart: 10-28-2023 End: 39-90-3195Okwukryedun (Trulicity) 0.75 mg/0.5 mL pen injector Discontinued 1.5 MG SUBCUT every week 13 90 0 October 28, 2023 4:39pm December 03, 2023 10:24am Start: 07-27-2023 End: 34-34-4028Mdxerfryknt (Trulicity) 0.75 mg/0.5 mL pen injector Discontinued 0.75 MG SUBCUT every week 2 0 July 30, 2023 11:46am September 02, 2023 4:01pmStart: 50-79-5949bqwvyz 1.5 mg by subcutaneous injection every week Trulicity 1.5 MG/0.5ML 1.5MG Subcutaneous weekly for 28 days Jun, Active Start: 87-68-1145bkyalw 0.75 mg by subcutaneous injection every weekTrulicity 0.75 MG/0.5ML 0.75 MG Subcutaneous weekly for 28 days Jun, ActiveStart: 87-71-6968izgwfi 1.5 mg by subcutaneous injection every weekTrulicity 1.5 MG/0.5ML 1.5mg Subcutaneous weekly for 28 days Aug, ActiveStart: 18-42-3144Enwpibcnm Pen SubCutaneous, qWeek, Refills(s) 0 Start Date: [...] pen injector (20 sources)Insulin AnalogStart: 08-23-2023 End: 00-79-7519Jtqzgxh Glargine (Lantus Solostar U-100 Insulin) 100 unit/mL (3 mL) insulin pen Discontinued 30 UNIT SUBCUT Every evening 9 30 5 August 23, 2023 1:30pm June 15, 2024 10:18pmStart: 19-82-5096Pdrhuz Solostar Pen 100 units/mL subcutaneous solution Refills(s) 0 Start Date: 11/09/22 Status: Ordered Start: 09-25-2022 End: 78-31-7796rczjjf 10 [IU] by subcutaneous injection once at bedtimeInsulin Glargine (Basaglar Kwikpen U-100 Insulin) 100 unit/mL (3 mL) insulin pen Discontinued UNIT SUBCUT July 27, 2023 12:00am February 18, 2024 8:43am FreeTextSi units Subcutaneous q HS; Note: Source Status: Not-Taking\PRN; Refills: 5; Qty: 1 Each; Provider: Edmond Mcfadden EStart: 73-33-6971Jkhzxg SoloStar 100 UNIT/ML 25 units Subcutaneous q HS Sep, ActiveStart: 21-92-0455heuclxlpmbxg 15 mg oral tablet (17 sources)Peroxisome Proliferator Receptor alpha Agonist, Peroxisome Proliferator Receptor gamma Agonist, ThiazolidinedioneStart: 50-33-3918fdyx 1 tablet by mouth every twenty-four hoursPioglitazone HCl 15 MG 1 tablet Orally Once a day for 30 days Sep, Not-Taking/PRNSod Picosulf-Mag Ox-Citric Ac (1 source)Start: 02-16-2025 End: 71-44-0553pvkm 1 dose by mouth once daily in [...] (13 sources)Primary thrombocytopenia; Translations: [Primary thrombocytopenia, unspecified]Onset: 02-47-0284MyckpsgNxeeklicmx associated with dizziness or vertigo (1 source)Dizziness and giddiness; Translations: [DIZZINESS AND GIDDINESS]Onset: 98-66-4667CtjptqkvMpzbzfyq mellitus with complications (20 sources)Type 2 diabetes mellitus with hyperglycemia; Translations: [Type 2 diabetes mellitus]Onset: 93-02-5363MrxkdwbYtzlkccx mellitus without complication (16 sources)Diabetes mellitus; Translations: [Type 2 diabetes mellitus without complications]Onset: 716125-52-6583SskummtDvxqlvnzk of lipid metabolism (20 sources)Pure hypercholesterolemia, unspecified; Translations: [Hypercholesterolemia]Onset: 50-10-2810HtgiaqbEpfnilispj disorders (20 sources)Gastro-esophageal reflux disease with esophagitis; Translations: [Gastroesophageal reflux disease with esophagitis without hemorrhage]07-27-2023 ChronicEssential hypertension (20 sources)Essential (primary) hypertension; Translations: [Essential hypertension]Onset: 88-70-1172XphzdaoWyhgqcl on above:Echo: LVEF 55%, normal RV size/function, LVH, ZAYNAB, RVSP 02/2024Genitourinary symptoms and ill-defined conditions (4 sources)Blood in urine; Translations: [Nocturia]74-20-8199UwykmmvuIokz and other crystal arthropathies (8 sources)Gout; Translations: [Idiopathic gout, right knee]Onset: 04-18-2022 31-01-5597VtabiovCdbrdckhvje of prostate (12 sources)Benign prostatic hypertrophy with outflow obstruction; Translations: [Benign prostatic hyperplasia with lower urinary tract symptoms]Onset: 11-25-0755TxdzqwoTiscfkamo of unspecified nature or uncertain behavior (1 source)Neoplastic disease; Translations: [Neoplasm of unspecified behavior of bone, soft tissue, and skin]10-18-9111BzraywjrHphoxnckinm chest pain (5 sources)Chest pain; Translations: [Other chest pain]Onset: 06-07-2015 08-31-6430TpmaxdzaDkjtfkplrjmdho (4 sources)Osteoarthritis of knee; Translations: [Bilateral primary osteoarthritis of knee]Onset: 53-24-9499HfsqzadFbuec aftercare (1 source)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; Translations: [OTH RETIREMENT CURRENT DRUG THERAPY]Onset: 92-88-6945YpwnlceyJtsnd aftercare (1 source)custodial (current) use of oral hypoglycemic drugs; Translations: [INSIDE SALES CONSULTANT USE ORAL HYPOGLYCEMIC DX]Onset: 65-49-2886TvepslezRcncq aftercare (15 sources)Long-term current use of insulin; Translations: [custodial (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]EpisodicOther aftercare (2 sources)terminal carman (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EpisodicOther aftercare (2 sources)Long-term current use of drug therapy; Translations: [Other nursing home (current) drug therapy]EpisodicOther and unspecified benign neoplasm [...] lower respiratory disease (6 sources)Dyspnea; Translations: [Dyspnea, unspecified]36-64-8890EcjpauotLwioq lower respiratory disease (1 source)Dyspnea, unspecified; Translations: [Other respiratory abnormalities] 85-14-0523HrnnabyeTlccc nutritional; endocrine; and metabolic disorders (13 sources)Body [...] disorders (7 sources)Obesity; Translations: [Obesity, unspecified]Onset: 12-15-2013 73-33-6521XgxvzahKwgcd nutritional; endocrine; and metabolic disorders (1 source)Body mass index (BMI) 32.0-32.9, adultChronicOther nutritional; endocrine; and metabolic disorders (1 source)Obesity, unspecified; Translations: [Obesity, unspecified]10-18-2023 ChronicOther nutritional; endocrine; and metabolic disorders (4 sources)Overweight; Translations: [Overweight]Onset: 68-25-0770TahxixuaCzhwg screening for suspected conditions (not mental disorders or infectious disease) (12 sources)Raised prostate specific antigen; Translations: [Elevated prostate specific antigen [PSA]]Onset: 22-49-3056DniotcvxRdvusbv on above:PSA: 0.8 - 04/2024Other skin disorders (1 source)Actinic keratosis; Translations: [Actinic keratosis]42-69-5939Pbqmfjdt Other upper respiratory disease (3 sources)Vasomotor rhinitis; Translations: [Vasomotor rhinitis]Chronic Spondylosis; intervertebral disc disorders; other back problems (20 sources)Lumbar spondylosis; Translations: [Spondylosis without myelopathy or radiculopathy, lumbar region]ChronicUnclassified (1 source)CONTACT W/AND (SUSP) EXPOS COVID-19; Translations: [CONTACT W/AND (SUSP) EXPOS COVID-19]Onset: 14-11-8620Vrdjeewbhcjt (1 source)Patient encounter statusUnclassified (2 sources)Z12.11 - Encounter for screening for malignant neoplasm of colon Past or Other Problems Problem ClassificationProblemDateDocumented DateEpisodic/ChronicAcute bronchitis (2 sources)Acute bronchitis; Translations: [Acute bronchitis, unspecified]Onset: 22-56-5433RnorpwwoLlvvydxtrt disorders (5 sources)Esophageal disorders; Translations: [Gastro-esophageal reflux disease with esophagitis, without bleeding]Hemorrhoids (4 sources)External hemorrhoids; Translations: [External hemorrhoids with other complication]Onset: 75-34-0711XvfgudfkHtjuk disorders and dislocations; trauma-related (2 sources)Current tear of medial cartilage AND/OR meniscus of knee; Translations: [Tear of medial cartilage or meniscus of knee, current]Onset: 40-79-0174VcmvcagaWtgvbbb and fatigue (6 sources)Weakness; Translations: [Malaise and fatigue]Onset: 04-26-2018 EpisodicOther connective tissue disease (2 sources)Disorder of soft tissue; Translations: [Other specified soft tissue disorders]Onset: 66-51-6181QkishxhrCdszv lower respiratory disease (2 sources)Cough; Translations: [Cough, unspecified]Onset: 31-83-1513Pnrwmgjh Other non-traumatic joint disorders (2 sources)Arthralgia of the lower leg; Translations: [Pain in unspecified knee] Onset: 51-87-0055GvotfuemMhsqk nutritional; endocrine; and metabolic disorders (4 sources)Body mass index 25-29 - overweight; Translations: [Body mass index 28.0-28.9, adult]Onset: 22-45-8799NgpcnvcuKpargtva veins of lower extremity (4 sources)Venous varices; Translations: [Asymptomatic varicose veins]Onset: 73-29-3912OgpmjhafHcubd infection (1 source)COVID-19 Results Test NameValueInterpretationReference RangeFacilityGlucose Poct Glucometerson 36-74-8016Tvsjnuw2Xnf1: Cleaned MeterNoSloop Memorial Hospital Physician GroupComment on above:Result Comment: PERFORMED BY: [facility] [address] [place] [address] PATHOLOGIST PERSONNEL ADVISER CAROL CARTAGENA M.D.Performed By: #### GLULS #### Point of Care testing ,Glucose [Mass/Vol]224 mg/dLHCA Florida North Florida Hospital Physician GroupComment on above: Result Comment: Random Glucose Reference Range is dependent on time and content of last meal. Glucose of more than 200 mg/dL in a nonstressed, ambulatory subject supports the diagnosis of Diabetes Mellitus.Performed By: #### GLULS #### Point of Care testing ,Neil 04-26-2025 Specimen: [id number] Received: 04/26/25 Status: ARINA Antonio Num: [id number] Spec Type: Surgical Subm Dr: Victor Manuel Ohara MD Tissues: A Colon Biopsy (ASCENDING POLYP) B Colon Biopsy (DESCENDING POLYP) Procedures: DONAVON/Jacob, Gross/Micro L4/2 Age/ Patient Sex Location Account Attending Physician Esdras Correa [address] [place] [address] [id number] Victor Manuel Ohara MD SPEC NUM: [id number] RECD: 04/26/25 STATUS: ARINA ROSARIO NUM: [id number] JAMIE: 04/26/[address] [facility] [address]: Victor Manuel Ohara MD ENTERED: 04/26/[address] [facility] [address]: EDSON TYPE: Surgical DEPT: S ENTERED BY: [id number] RECV BY: [id number] ORDERED: HE/4, Gross/Micro L4/2 ORDERED: HE/4, Gross/Micro [...] cassette. The vegetative material is retained. Specimen: [id number] Received: 04/26/25 Status: ARINA Rosario Num: [id number] Spec Type: Surgical Subm Dr: Victor Manuel Ohara MD Tissues: A Colon Biopsy (ASCENDING POLYP) B Colon Biopsy (DESCENDING POLYP) Procedures: /Jacob, Gross/Micro L4/2 Patient: Esdras Correa [id number] (Continued) Specimen: [id number] Received: 04/26/25 (Continued) Gross Description (Continued) Signed (signature on file) Anish Peter MD 04/27/251145 Specimen: [id number] Received: 04/26/25 Status: ARINA Rosario Num: [id number] Spec Type: Surgical Subm Dr: Victor Manuel Ohara MD Tissues: A Colon Biopsy (ASCENDING POLYP) B Colon Biopsy (DESCENDING POLYP) Procedures: HE/4, Gross/Micro L4/2 Patient: Esdras Correa [id number] (Continued) Specimen: [id number] Received: 04/26/25 (Continued) Gross Description (Continued) (1, ns, [id number] A) Part B is received in formalin [...] with the smaller polyps intact. (1, ns, [id number] B) Microscopic Description A B: Microscopic examination is performed. CPT Codes 07498 x2 Specimen: [id number] Received: 04/26/25 Status: ARINA Rosario Num: [id number] Spec Type: Surgical Subm Dr: Victor Manuel Ohara MD Tissues: A Colon Biopsy (ASCENDING POLYP) B Colon Biopsy (DESCENDING POLYP) Procedures: DONAVON/Jacob, Torito/Micro L4/2 Patient: Esdras Correa [id number] (Continued) Signed (signature on file) Anish Peter MD 04/27/25 1146Normal [facility] GroupCryotherapy, skin lesionon 70-17-2472LSNR HealthcareLesion biopsyon 72-26-5043Byoz of biopsy: tangential Informed consent: discussed and [...] Photo taken Amount of lidocaine used: 1.0 [facility] HealthGlucose mean value [Mass/volume] in Blood Estimated from glycated hemoglobinOrdered By: Bogdan Pruitt on 87-10-9810Iqcwflw glucose Estimated from glycated hemoglobin (Bld) [Mass/Vol]160 mg/dLEast [place] Regional HospitalHemoglobin A1c percentage Ordered By: Bogdan Pruitt on 00-99-8718CtQ7j (Bld) [Mass fraction]7.2 %High 4.5-6.2FMetroHealth Cleveland Heights Medical CenterComment on above:ADA RECOMMENDED LIMIT 4.0 - 6.0ADA THERAPEUTIC TARGET < 7.0ACTION SUGGESTED> 7.0Glucose mean value [Mass/volume] in Blood Estimated from glycated hemoglobinon 85-52-6740Yaidmqe glucose Estimated from glycated hemoglobin (Bld) [Mass/Vol]Glucose mean value [Mass/volume] in Blood Estimated from glycated hemoglobinEast [place] Regional HospitalHemoglobin A1c percentageon 29-76-0640SoS2f (Bld) [Mass fraction] Hemoglobin A1c percentageHigh4.5-6.2FMetroHealth Cleveland Heights Medical CenterComment on above:ADA RECOMMENDED LIMIT 4.0 - 6.0ADA THERAPEUTIC TARGET < 7.0ACTION SUGGESTED> 7.0POC Glucose Randomon 56-09-4073Nvrjvqg [Mass/Vol]147 mg/dLHigh 70-99Southview Medical CenterComment on above:Performed By: #### [id number] #### [facility] [address] [place], [place] [address]Pqnqooi mean value [Mass/volume] in Blood Estimated from glycated hemoglobinon 38-18-0565Ighkeje glucose Estimated from glycated hemoglobin (Bld) [Mass/Vol]169 mg/dLEast [place] Regional HospitalLaboratory - Hematology and Cell countson 14-41-3630UmV9z (Bld) [Mass fraction]7.5 %High 4.5-6.2FMetroHealth Cleveland Heights Medical CenterComment on above:ADA RECOMMENDED LIMIT 4.0 - 6.0ADA THERAPEUTIC TARGET < 7.0ACTION SUGGESTED> 7.0Glucose mean value [Mass/volume] in Blood Estimated from glycated hemoglobinon 12-08-0823Tcspcol glucose Estimated from glycated hemoglobin (Bld) [Mass/Vol]180 mg/dLEast [place] Regional HospitalLaboratory - Hematology and Cell countson 79-97-5633IpG6q (Bld) [Mass fraction]7.9 %4.5-6.2FMetroHealth Cleveland Heights Medical CenterComment on above:ADA RECOMMENDED LIMIT 4.0 - 6.0ADA THERAPEUTIC TARGET < 7.0ACTION SUGGESTED> 7.0GLYCOHEMOGLOBIN A1Con 43-58-1500XIY RECOMMENDATIONSEE BELOWNormal The [facility] GlenbeighComment on above:Result Comment: ADA RECOMMENDED LIMIT 4.0 - 6.0 ADA THERAPEUTIC TARGET < 7.0 ACTION SUGGESTED > 7.0Performed By: #### BMP, LIPID, ALT, URIC #### [facility] [address] [address] [address] Jorge L CareyGlucose [Mass/Vol]148 mg/dLNormalThMarion HospitalComment on above:Performed By: #### BMP, LIPID, ALT, URIC #### [facility] [address] [place], [place] [address] Dr. Jorge L CareyHbA1c (Bld) [Mass fraction]6.8 %Critically high4.5-6.2The [facility] on above:Performed By: #### BMP, LIPID, ALT, URIC #### [facility] [address] [address] [address] Jorge L Huston DANAY ADMITon 76-54-2041AB [Catalytic activity/Vol]59 U/L Haqrhc54-065Yba [facility] Westment on above:Performed By: #### CMP, CMADM #### [facility] [address] [place] [address] Dr. Jorge L Ellis.MB [Mass/Vol]0.99 ng/mLNormal<=3.60[facility] Comment on above:Performed By: #### CMP, CMADM #### [facility] [address] [place] [address] Dr. Jorge L WattsTROP10.0 pg/mLNormal4.0-76.1[facility] on above:Result Comment: CUT-OFF POINTS HAVE BEEN ESTABLISHED BASED ON THE FOURTH UNIVERSAL DEFINITIONS OF MYOCARDIAL INFARCTION. THE UPPER REFERENCE LIMIT (URL) OF TROPONIN, DEFINED THE 99TH PERCENTILE OF cTnI DISTRIBUTION IN A REFERENCE POPULATION, HAS BEEN CONFIRMED THE DECISION THRESHOLD FOR [place] DIAGNOSIS.Performed By: #### CMP, CMADM #### [facility] [address] [place] [address] Dr. Jorge L ChiangO52 ng/uMEqvofy65-32Qzk [facility] on above: Performed By: #### CMP, CMADM #### [facility] [address] [place] [address] Dr. Jorge L Marks AUTO DIFFon 28-75-8673CAEF #0.0 103/ulNormal0.0-0.1The [facility] GlenbeighComment on above:Performed By: #### BMP, LIPID, ALT, URIC #### [facility] [address] [place] [address] Dr. Jorge L Rootsophils/100 WBC (Bld)0.3 %Normal0.2-2.0[facility] Comment on above:Performed By: #### BMP, LIPID, ALT, URIC #### [facility] [address] [place] [address] Dr. Jorge L Leong #0.1 103/ulNormal0.0-0.7The [facility] Glen[facility]ighComveterans affairs medical center on above: Performed By: #### BMP, LIPID, ALT, URIC #### [facility] [address] [place] [address] Dr. Jorge L Mckeonosinophils/100 WBC (Bld)0.9 %Normal0.9-7.0[facility] Comment on above:Performed By: #### BMP, LIPID, ALT, URIC #### [facility] [address] [place] [address] Dr. Jorge L Mckeonrythrocyte distribution width (RBC) [Ratio]11.7 %Dwkxaj71.0-15.0 The [facility] GlenbeighComment on above:Performed By: #### BMP, LIPID, ALT, URIC #### [facility] [address] [place] [address] Dr. Jorge L CareyHematocrit (Bld) [Volume fraction]41.1 %Critically low42.0-54.0 The [facility] GlenbeighComment on above:Performed By: #### BMP, LIPID, ALT, URIC #### [facility] [address] [place] [address] Dr. Jorge L CareyHemoglobin (Bld) [Mass/Vol]14.5 g/jSWtwtvj87.0-18.0The [facility] GlenbeighComment on above:Performed By: #### BMP, LIPID, ALT, URIC #### [facility] [address] [place] [address] Dr. Jorge L Padilla #0.02 10e3/ulNormal0.00-0.03The [facility] GlenbeighComment on above:Performed By: #### BMP, LIPID, ALT, URIC #### [facility] [address] [place] [address] Dr. Jorge L Padilla %0.3 %Normal0.0-0.5The [facility] GlenbeighComment on above: Performed By: #### BMP, LIPID, ALT, URIC #### [facility] [address] [place] [address] Dr. Jorge L Cooper #1.1 103/ulCritically low1.2-3.8The [facility] Comment on above:Performed By: #### BMP, LIPID, ALT, URIC #### [facility] [address] [place] [address] Dr. Yilan ChangLymphocytes/100 WBC (Bld)16.6 %Critically low20.5-60.0The [facility] GlenbeighComment on above:Performed By: #### BMP, LIPID, ALT, URIC #### [facility] [address] [place] [address] Dr. Jorge L Arenas DIFF REQNONormalThe [facility] GlenbeighComment on above: Performed By: #### BMP, LIPID, ALT, URIC #### [facility] [address] [address] [address] Jorge L Alvarado (RBC) [Entitic mass]30.1 ucFjeood34.9-34.0The [facility] GlenbeighComment on above:Performed By: #### BMP, LIPID, ALT, URIC #### [facility] [address] [place] [address] Dr. Jorge L Alvarado (RBC) [Mass/Vol]35.3 g/dLCritically high29.9-35.2The [facility] GlenbeighComment on above:Performed By: #### BMP, LIPID, ALT, URIC #### [facility] [address] [place] [address] Dr. Jorge L Perez (RBC) [Entitic vol]85.4 aDCntjfr59.0-94.0The [facility] GlenbeighComment on above:Performed By: #### BMP, LIPID, ALT, URIC #### [facility] [address] [place] [address] Dr. Jorge L Valencia #0.4 103/ulNormal0.3-0.8The [facility] GlenbeighComment on above:Performed By: #### BMP, LIPID, ALT, URIC #### [facility] [address] [place] [address] Dr. Jorge L Melgarocytes/100 WBC (Bld)5.1 %Normal1.7-12.0The [facility] Comment on above:Performed By: #### BMP, LIPID, ALT, URIC #### [facility] [address] [place] [address] Dr. Jorge L Colorado #5.3 103/ulNormal1.4-6.5The [facility] GlenbeighComment on above:Performed By: #### BMP, LIPID, ALT, URIC #### [facility] [address] [place] [address] Dr. Jorge L Nguyenutrophils/100 WBC (Bld)76.8 %Critically high43.0-75.0The [facility] GlenbeighComment on above:Performed By: #### BMP, LIPID, ALT, URIC #### [facility] [address] [place] [address] Dr. Jorge L CareyPlatelet mean volume (Bld) [Entitic vol]12.1 fLNormal9.5-13.5The [facility] GlenbeighComment on above:Performed By: #### BMP, LIPID, ALT, URIC #### [facility] [address] [place] [address] Dr. Jorge L CareyPLT147 103/ulCritically zuo876-817Fvl [facility] GlenbeighComment on above:Performed By: #### BMP, LIPID, ALT, URIC #### [facility] [address] [place] [address] Dr. Jorge L CareyRBC4.81 106/ulNormal4.70-6.10The [facility] GlenbeighComment on above:Performed By: #### BMP, LIPID, ALT, URIC #### [facility] [address] [place] [address] Dr. Jorge L CareyWBC6.9 103/ulNormal4.0-11.0The [facility] GlenbeighComment on above: Performed By: #### BMP, LIPID, ALT, URIC #### [facility] [address] [place] [address] Dr. Jorge L CareyCT HEAD WO CONon [id number] HEAD WO CONNONCONTRAST CT SCAN OF THE [...] Electronically authenticated by: MALENA LÓPEZ Date: 2022-07-01 20:24NoOhioHealth Southeastern Medical CenterCovid-19 PCR (CVDTBH)on 77-27-0682BECY-CoV-2 (COVID-19) RNA EDVIN+probe Ql (Unsp spec)Not detectedNormalNOT DETECTEDThe [facility] Comment on above:Result Comment: When diagnostic testing [...] for this test is supported by the [employer] of Health and Human Service's declaration that [...] longer be used).Performed By: #### CVDTBH #### [facility] [address] [place] [address] [address] [address] Jorge L Soto 27-66-3649D-DIMER0.21 mg/L FEUNormal<=0.59[facility] HospitalComment on above:Performed By: #### BMP, LIPID, ALT, URIC #### [facility] [address] [place] [address] Dr. Jorge L Simon-DIMER COMMENTSE [facility] on above:Result Comment: Increases in D-Dimer concentration [...] By: #### BMP, LIPID, ALT, URIC #### [facility] [address] [place] [address] Dr. Jorge L Waller URINE PROFILEon 10-44-2741Lgrvnepyy Ql (U)NegativeNormal NEGATIVEAkron Children's Hospital on above:Performed By: #### BMP, LIPID, ALT, URIC #### [facility] [address] [place] [address] Dr. Jorge L CareyClarity (U)CLEARNormalCLEARCleveland Clinic Union HospitalComveterans affairs medical center on above: Performed By: #### BMP, LIPID, ALT, URIC #### [facility] [address] [place] [address] Dr. Jorge L Sharpe (U)LT. YELLOWNormalYELLOWAkron Children's Hospital on above:Performed By: #### BMP, LIPID, ALT, URIC #### [facility] [address] [place] [address] Dr. Jorge L BellARAM micrscopic examination will be performed if indicated. NormalCleveland Clinic Union HospitalComveterans affairs medical center on above:Performed By: #### BMP, LIPID, ALT, URIC #### [facility] [address] [place] [address] Dr. Jorge L CareyGlucose Ql (U)NegativeNormalNEGATIVEAkron Children's Hospital on above:Performed By: #### BMP, LIPID, ALT, URIC #### [facility] [address] [place] [address] Dr. Jorge L CareyHemoglobin Ql (U)NegativeNormalNEGATIVECleveland Clinic Union Hospital Comment on above:Performed By: #### BMP, LIPID, ALT, URIC #### [facility] [address] [address] [address] Jorge L Preston Ql (U)NegativeNormalNEGATIVECleveland Clinic Union HospitalComment on above:Performed By: #### BMP, LIPID, ALT, URIC #### [facility] [address] [address] [address] Jorge L CareyLEUKOCYTESNegativeNormalNEGATIVECleveland Clinic Union HospitalComment on above:Performed By: #### BMP, LIPID, ALT, URIC #### [facility] [address] [address] [address] Jorge L Lundberg Ql (U)NegativeNormalNEGATIVECleveland Clinic Union HospitalComment on above:Performed By: #### BMP, LIPID, ALT, URIC #### [facility] [address] [address] [address] Jorge L Pozo (U)6.0 [pH]Normal5-9The [facility] GlenbeighComment on above: Performed By: #### BMP, LIPID, ALT, URIC #### [facility] [address] [address] [address] Jorge L CareySPEC GRAVITY1.428Pbdwpr1.005-<=1.025The [facility] on above:Performed By: #### BMP, LIPID, ALT, URIC #### [facility] [address] [address] [address] Jorge L Dupont PROTEINNegativeNormalNEGATIVE/ TRACEThe [facility] Comment on above:Performed By: #### BMP, LIPID, ALT, URIC #### [facility] [address] [address] [address] Jorge L Hernandez MICRO INDNOT INDICATEDNoOhioHealth Southeastern Medical CenterComment on above:Performed By: #### BMP, LIPID, ALT, URIC #### [facility] [address] [address] [address] Jorge L Lao Qn (U)1.0 {Ila'U}/dLNormal0.2 - 1.0The Kyree HospitalComment on above:Performed By: #### BMP, LIPID, ALT, URIC #### [facility] [address] [place] [address] Dr. Jorge L Perera A AND B AGon 98-02-4368TLOXGADQSLPXQAshtabula General Hospital on above:Result Comment: Negative for Flu A protein angiten. Infection due to Flu A cannot be ruled out. FluA angiten in the sample may be below the detection limit of the test.Performed By: #### INFLUAB #### [facility] [address] [place] [address] Dr. Jorge L AlmonteNEGSYD [facility] on above: Result Comment: Negative for Flu B protein antigen. Infection due to Flu B cannot be ruled out. FluB antigen in the sample may be below the detection limit of the test.Performed By: #### INFLUAB #### [facility] [address] [place] [address] Dr. Jorge L Carpenter AGNegativeNormalNEGATIVE SEE COMMENTThe [facility] on above:Performed By: #### INFLUAB #### [facility] [address] [place] [address] Dr. Jorge L Borden AGNegativeNormalNEGATIVE SEE COMMENTAkron Children's Hospital on above:Performed By: #### INFLUAB #### [facility] [address] [place] [address] Dr. Jorge L CareyPOINT OF CARE GLUCOSEon 97-84-4251Ctvgbea [Mass/Vol]130 mg/dL Critically iqkb06-962SjzAkron Children's Hospital on above:Performed By: #### BMP, LIPID, ALT, URIC #### [facility] [address] [place] [address] Dr. Jorge L Stiles 14(COMP METB)on 21-84-7488Fappmpt [Mass/Vol]3.7 g/dLNormal 3.4-5.0The [facility] on above:Performed By: #### CMP, CMADM #### [facility] [address] [address] [address] Jorge L CareyAlbumin/Globulin [Mass ratio]1.2 {ratio}NormalThe [facility] GlenbeighComment on above:Performed By: #### CMP, CMADM #### [facility] [address] [address] [address] Jorge L EisenbergP [Catalytic activity/Vol]49 U/UKkejca66-694Wbq [facility] GlenbeighComment on above:Performed By: #### CMP, CMADM #### [facility] [address] [address] [address] Jorge L EisenbergT [Catalytic activity/Vol]30 U/IQygjbb93-97Bou [facility]beighComment on above:Performed By: #### CMP, CMADM #### [facility] [address] [address] [address] Jorge L Morenoon gap [Moles/Vol]12.7 mmol/LNormalThe [facility] Comment on above:Performed By: #### CMP, CMADM #### [facility] [address] [address] [address] Jorge L CareyAST [Catalytic activity/Vol]21 U/WOtppyg84-67Lhf [facility] Westment on above:Performed By: #### CMP, CMADM #### [facility] [address] [address] [address] Jorge L CareyBilirubin [Mass/Vol]0.5 mg/dLNormal0.2-1.0The [facility] Comment on above:Performed By: #### CMP, CMADM #### [facility] [address] [address] [address] Jorge L CareyCalcium [Mass/Vol]8.9 mg/dLNormal8.5-10.1The [facility] Comment on above:Performed By: #### CMP, CMADM #### [facility] [address] [address] [address] Jorge L CareyChloride [Moles/Vol]100 mmol/QDqqilb37-331Cas [facility] Comment on above:Performed By: #### CMP, CMADM #### [facility] [address] [address] [address] Jorge L CareyCO2 [Moles/Vol]29.0 mmol/VEyufow44.0-32.0The [facility] Comment on above:Performed By: #### CMP, CMADM #### [facility] [address] [address] [address] Jorge L CareyCreatinine [Mass/Vol]1.04 mg/dLNormal0.70-1.30The [facility] GlenbeighComment on above:Performed By: #### CMP, CMADM #### [facility] [address] [address] [address] Coats ChangEGFR-AF ETHIOPIAN>60Normal>=60The [facility] GlenbeighComment on above:Performed By: #### CMP, CMADM #### [facility] [address] [address] [address] Jorge L MckeonGFR-NON AF ETHIOPIAN>60Normal>=60The [facility] GlenbeighComment on above:Performed By: #### CMP, CMADM #### [facility] [address] [address] [address] Jorge L CareyGlobulin (S) [Mass/Vol]3.1 g/dLNormalThe [facility]beighComment on above:Performed By: #### CMP, CMADM #### [facility] [address] [address] [address] Jorge L CareyGlucose [Mass/Vol]140 mg/dLCritically prdk20-914Ywn [facility]beighComment on above:Performed By: #### CMP, CMADM #### [facility] [address] [address] [address] Jorge L CareyPotassium [Moles/Vol]3.7 mmol/LNormal3.5-5.1The [facility] Comment on above:Performed By: #### CMP, CMADM #### [facility] [address] [address] [address] Jorge L CareyProtein [Mass/Vol]6.8 g/dLNormal6.4-8.2The [facility] Comment on above:Performed By: #### CMP, CMADM #### [facility] [address] [address] [address] Jorge L CareySodium [Moles/Vol]138 mmol/EXkxypd230-231Isi [facility] Comment on above:Performed By: #### CMP, CMADM #### [facility] [address] [address] [address] Jorge L CareyUrea nitrogen [Mass/Vol]13.0 mg/dLNormal7.0-18.0The [facility]beighComment on above:Performed By: #### CMP, CMADM #### [facility] [address] [address] [address] Jorge L CareyUrea nitrogen/Creatinine [Mass ratio]12.5 mg/mgNoOhioHealth Southeastern Medical CenterComment on above:Performed By: #### CMP, CMADM #### [facility] [address] [address] [address] Jorge L Jordan, HIGH SENSITIVITYon 17-44-3485XBULDU87.9 pg/mLNormal 4.0-76.1[facility] HospitalComment on above:Result Comment: CUT-OFF POINTS HAVE BEEN ESTABLISHED BASED ON THE FOURTH UNIVERSAL DEFINITIONS OF MYOCARDIAL INFARCTION. THE UPPER REFERENCE LIMIT (URL) OF TROPONIN, DEFINED THE 99TH PERCENTILE OF cTnI DISTRIBUTION IN A REFERENCE POPULATION, HAS BEEN CONFIRMED THE DECISION THRESHOLD FOR [place] DIAGNOSIS.Performed By: #### BMP, LIPID, ALT, URIC #### [facility] [address] [address] [address] Jorge L CareyXR CHEST 1 Von 59-82-3154OL CHEST 1 VEXAMINATION: XR CHEST 1 V HISTORY: Shortness of breath COMPARISON: None. TECHNIQUE: Portable chest FINDINGS: The lung parenchyma is free of consolidation or infiltrate. No pneumothorax or pleural effusion. The cardiac, mediastinal and hilar contours are normal. The visualized osseous structures exhibit no gross abnormality. IMPRESSION: No acute cardiopulmonary abnormality. Electronically authenticated by: FILIPPO MASTERS Date: 2022-07-01 19:57[facility] AUTO DIFFon 88-38-2821GDFD #0.0 103/ulNormal0.0-0.1The [facility] GlenbeighComment on above:Performed By: #### CBC #### [facility] [address] [place] [address] Dr. Jorge L CareyBasophils/100 WBC (Bld)0.7 %Normal0.2-2.0The [facility] Comment on above:Performed By: #### CBC #### [facility] [address] [place] [address] Dr. Jorge L Leong #0.2 103/ulNormal0.0-0.7The [facility] GlenbeighComment on above: Performed By: #### CBC #### [facility] [address] [place] [address] Dr. Jorge L Mckeonosinophils/100 WBC (Bld)2.6 %Normal0.9-7.0The [facility] Comment on above:Performed By: #### CBC #### [facility] [address] [place] [address] Dr. Jorge L Mckeonrythrocyte distribution width (RBC) [Ratio]11.5 %Jwjqdi84.0-15.0 The [facility] GlenbeighComment on above:Performed By: #### CBC #### [facility] [address] [place] [address] Dr. Jorge L CareyHematocrit (Bld) [Volume fraction]44.7 %Uhyhlw64.0-54.0The [facility] GlenbeighComment on above:Performed By: #### CBC #### [facility] [address] [place] [address] Dr. Jorge L CareyHemoglobin (Bld) [Mass/Vol]15.5 g/gKAcurkg02.0-18.0The [facility] GlenbeighComment on above:Performed By: #### CBC #### [facility] [address] [place] [address] Dr. Jorge L Padilla #0.01 10e3/ulNormal0.00-0.03The [facility] GlenbeighComment on above:Performed By: #### CBC #### [facility] [address] [place] [address] Dr. Jorge L Padilla %0.2 %Normal0.0-0.5The [facility] GlenbeighComment on above: Performed By: #### CBC #### [facility] [address] [place] [address] Dr. Jorge L Cooper #1.3 103/ulNormal1.2-3.8The [facility] GlenbeighComment on above:Performed By: #### CBC #### [facility] [address] [place] [address] Dr. Jorge L Lopezhocytes/100 WBC (Bld)21.3 %Puacbw61.5-60.0The [facility]ighComment on above:Performed By: #### CBC #### [facility] [address] [place] [address] Dr. Jorge L LeyUAL DIFF REQNONormalThe [facility]ighComment on above: Performed By: #### CBC #### [facility] [address] [place] [address] Dr. Jorge L Alvarado (RBC) [Entitic mass]30.1 ttYdtbbc06.9-34.0The [facility]ighComment on above:Performed By: #### CBC #### [facility] [address] [place] [address] Dr. Jorge L Alvarado (RBC) [Mass/Vol]34.7 g/xHEanzyh53.9-35.2The [facility]ighComveter[facility] affairs [facility] on above:Performed By: #### CBC #### [facility] [address] [place] [address] Dr. Jorge L Alvarado (RBC) [Entitic vol]86.8 tFAbpobw61.0-94.0The [facility]ighComment on above:Performed By: #### CBC #### [facility] [address] [place] [address] Dr. Jorge L Valencia #0.4 103/ulNormal0.3-0.8The [facility] GlenbeighComment on above:Performed By: #### CBC #### [facility] [address] [place], [place] [id number] Dr. Jorge L Melgarocytes/100 WBC (Bld)7.2 %Normal1.7-12.0The [facility] Comment on above:Performed By: #### CBC #### [facility] [address] [place] [address] Dr. Jorge L NguyenUT #4.1 103/ulNormal1.4-6.5The [facility]ighComment on above:Performed By: #### CBC #### [facility] [address] [place] [address] Dr. Jorge L Nguyenutrophils/100 WBC (Bld)68.0 %Jbdtps87.0-75.0The [facility]ighComment on above:Performed By: #### CBC #### [facility] [address] [place] [address] Dr. Jorge L CareyPlatelet mean volume (Bld) [Entitic vol]12.0 fLNormal9.5-13.5The [facility]ighComment on above:Performed By: #### CBC #### [facility] [address] [place] [address] Dr. Jorge L CareyPLT163 103/muKojzbg073-412Ltp [facility]ighComment on above: Performed By: #### CBC #### [facility] [address] [place] [address] Dr. Jorge L CareyRBC5.15 106/ulNormal4.70-6.10The [facility]ighComment on above:Performed By: #### CBC #### [facility] [address] [place] [address] Dr. Jorge L CareyWBC6.1 103/ulNormal4.0-11.0The [facility]ighComment on above: Performed By: #### CBC #### [facility] [address] [place] [address] Dr. Jorge L CareyGLYCOHEMOGLOBIN A1Con 17-91-5831JIF RECOMMENDATIONSEE BELOWNormal [facility] HospitalComment on above:Result Comment: ADA RECOMMENDED LIMIT 4.0 - 6.0 ADA THERAPEUTIC TARGET < 7.0 ACTION SUGGESTED > 7.0Performed By: #### BMP, LIPID, ALT, URIC #### [facility] [address] [address] [address] Jorge L CareyGlucose [Mass/Vol]146 mg/dLMercy Health St. Anne HospitalComment on above:Performed By: #### BMP, LIPID, ALT, URIC #### [facility] [address] [address] [address] Jorge L CareyHbA1c (Bld) [Mass fraction]6.7 %Critically high4.5-6.2[facility] HospitalComment on above:Performed By: #### BMP, LIPID, ALT, URIC #### [facility] [address] [address] [address] Jorge L GoldID PROFILEon [id number]-HDL RATIO NORMSWright-Patterson Medical CenterComment on above:Result Comment: 3.3 - 4.4 LOW RISK 4.4 - 7.1 AVERAGE RISK 7.1 - 11.0 MODERATE RISK >11.0 HIGH RISKPerformed By: #### BMP, LIPID, ALT, URIC #### [facility] [address] [address] [address] Jorge L Ballardesterol [Mass/Vol]117 mg/dLNormal<=200The [facility] Comment on above:Performed By: #### BMP, LIPID, ALT, URIC #### [facility] [address] [address] [address] Jorge L CareyCholesterol in HDL [Mass/Vol]48 mg/kJBzavfv58-14Mbi [facility]ighComment on above:Performed By: #### BMP, LIPID, ALT, URIC #### [facility] [address] [address] [address] Jorge L CareyCholesterol in LDL [Mass/Vol]50.6 mg/dLMercy Health St. Anne HospitalComveterans affairs medical center on above:Performed By: #### BMP, LIPID, ALT, URIC #### [facility] [address] [address] [address] Jorge L Ballardesteremmie.total/Cholesterol in HDL [Mass ratio]2.4 {ratio} NormalCleveland Clinic Union HospitalComment on above:Performed By: #### BMP, LIPID, ALT, URIC #### [facility] [address] [address] [address] Jorge L Danielson NORMAL> or = 60 mg/dl - LOW CARDIOVASCULAR RISK <40 mg/dl - HIGH CARDIOVASCULAR RISKMercy Health St. Anne HospitalComment on above:Performed By: #### BMP, LIPID, ALT, URIC #### [facility] [address] [address] [address] Jorge L CareyLDL CALC NORMALSEE BELOWNoOhioHealth Southeastern Medical CenterComment on above:Result Comment: <100 mg/dl OPTIMAL 100 - 129 mg/dl NEAR OR ABOVE OPTIMAL 130 - 159 mg/dl BORDERLINE HIGH 160 - 189 mg/dl HIGH >190 mg/dl VERY HIGH Performed By: #### BMP, LIPID, ALT, URIC #### [facility] [address] [place] [address] Dr. Jorge L CareyTriglyceride [Mass/Vol]92 mg/dLNormal<=150[facility] Comment on above:Performed By: #### BMP, LIPID, ALT, URIC #### [facility] [address] [place] [address] Dr. Jorge L LylesLDL CALC18.4 mg/dLNoOhioHealth Southeastern Medical CenterComment on above: Performed By: #### BMP, LIPID, ALT, URIC #### [facility] [address] [place] [address] Dr. Jorge L WuALBUMIN, RAND URon 64-80-4710rTLR<1.3Normal<=30.0The [facility]ighComment on above:Performed By: #### MALBR #### [facility] [address] [place] [address] Dr. Jorge L CareyPROF CHEM 8 (BAS METB)on 47-55-2018Boyab gap [Moles/Vol]9.5 mmol/LNormalThe [facility]ighComment on above:Performed By: #### BMP, LIPID, ALT, URIC #### [facility] [address] [place] [address] Dr. Jorge L CareyCalcium [Mass/Vol]8.6 mg/dLNormal8.5-10.1The [facility] Comment on above:Performed By: #### BMP, LIPID, ALT, URIC #### [facility] [address] [address] [address] Jorge L CareyChloride [Moles/Vol]102 mmol/DVkamao77-393Mtl [facility] Comment on above:Performed By: #### BMP, LIPID, ALT, URIC #### [facility] [address] [address] [address] Jorge L CareyCO2 [Moles/Vol]30.8 mmol/CYcjbwv74.0-32.0The [facility] Comment on above:Performed By: #### BMP, LIPID, ALT, URIC #### [facility] [address] [address] [address] Jorge L CareyCreatinine [Mass/Vol]0.95 mg/dLNormal0.70-1.30The [facility]ighComment on above:Performed By: #### BMP, LIPID, ALT, URIC #### [facility] [address] [address] [address] Jorge L MckeonGFR-AF ETHIOPIAN>60Normal>=60The [facility]ighComment on above:Performed By: #### BMP, LIPID, ALT, URIC #### [facility] [address] [address] [address] Jorge L MckeonGFR-NON AF ETHIOPIAN>60Normal>=60The [facility]ighComment on above:Performed By: #### BMP, LIPID, ALT, URIC #### [facility] [address] [address] [address] Jorge L CareyGlucose [Mass/Vol]142 mg/dLCritically nlob08-948Cyf [facility]ighComment on above:Performed By: #### BMP, LIPID, ALT, URIC #### [facility] [address] [address] [address] Jorge L CareyPotassium [Moles/Vol]4.3 mmol/LNormal3.5-5.1The [facility] Comment on above:Performed By: #### BMP, LIPID, ALT, URIC #### [facility] [address] [address] [address] Jorge L CareySodium [Moles/Vol]138 mmol/CKmizwo595-096Vbb [facility] Comment on above:Performed By: #### BMP, LIPID, ALT, URIC #### [facility] [address] [address] [address] Jorge L CareyUrea nitrogen [Mass/Vol]14.0 mg/dLNormal7.0-18.0The [facility]ighComment on above:Performed By: #### BMP, LIPID, ALT, URIC #### [facility] [address] [address] [address] Jorge L Farrar nitrogen/Creatinine [Mass ratio]14.7 mg/mgNormalThe [facility]ighComment on above:Performed By: #### BMP, LIPID, ALT, URIC #### [facility] [address] [address] [address] Jorge L Guerin 54-80-5153WXV [Catalytic activity/Vol]27 U/LOccugj44-99Ceo [facility]ighComment on above:Performed By: #### BMP, LIPID, ALT, URIC #### [facility] [address] [place] [address] Dr. Jorge L CareyURIC ACID SERUMon 76-43-3404Yrfkb [Mass/Vol]5.5 mg/dLNormal 3.5-7.2The [facility]ighComment on above:Performed By: #### BMP, LIPID, ALT, URIC #### [facility] [address] [place] [address] Dr. Jorge L CareyGLYCOHEMOGLOBIN A1Con 23-16-9981MUZ RECOMMENDATIONSEE BELOWNormal The [facility]ighComveterans affairs medical center on above:Result Comment: ADA RECOMMENDED LIMIT 4.0 - 6.0 ADA THERAPEUTIC TARGET < 7.0 ACTION SUGGESTED > 7.0Performed By: #### BMP, LIPID, ALT, URIC #### [facility] [address] [place] [address] Dr. Jorge L CareyGlucose [Mass/Vol]160 mg/dLNoOhioHealth Southeastern Medical CenterComment on above:Performed By: #### BMP, LIPID, ALT, URIC #### [facility] [address] [address] [address] Jorge L DuboseA1c (Bld) [Mass fraction]7.2 %Critically high4.5-6.2The [facility]ighComment on above:Performed By: #### BMP, LIPID, ALT, URIC #### [facility] [address] [address] [address] Jorge L CareyGLYCOHEMOGLOBIN A1Con 31-49-8759QMR RECOMMENDATIONADA THERAPEUTIC TARGET 6.0 - 7.0 ACTION SUGGESTED > 7.0[facility] St. Anne HospitalComment on above:Performed By: #### BMP, LIPID, ALT, URIC #### [facility] [address] [address] [address] Jorge L CareyGlucose [Mass/Vol]177 mg/dLNoOhioHealth Southeastern Medical CenterComment on above:Performed By: #### BMP, LIPID, ALT, URIC #### [facility] [address] [address] [address] Jorge L DuboseA1c (Bld) [Mass fraction]7.8 %Critically high<=6.0The [facility]ighComment on above:Performed By: #### BMP, LIPID, ALT, URIC #### [facility] [address] [address] [address] Jorge L Carey Vital Signs Date TimeVital SignValuePerforming CiyfsnehaDlepzvif78-82-2304 11:05-0500 Diastolic blood ilmpjehf52 mm[Hg]Bgodan Ball DO Work Phone: [facility]11-10-2025 11:05-0500 Heart rate82 /minBenjamin Ball DO Work Phone: [facility]11-10-2025 11:05-0500 Respiratory rate16 /minBenjamin Ball DO Work Phone: [facility]11-10-2025 11:05-0500 SaO2% (BldA) [Mass fraction]96 %Bogdan Ball DO Work Phone: [phone] [place], [place] 0627911-10-2025 11:05-0500 Systolic blood itwbnwvn573 mm[Hg]Bogdan Ball DO Work Phone: [phone])[address] [place], [place] 0627911-10-2025 09:02-0500 Body hnuydq208.85 cmBenjamin Ball DO Work Phone: [phone])[address] [place], [place] 0627911-10-2025 09:02-0500 Body .39 kgBenjamin Ball DO Work Phone: [phone])[address] [place], [place] 0627908-26-2025 10:00-0400 Body vdajkp293.5 cmBenjamin Ball DO Work Phone: [phone] [place], [place] 0627908-26-2025 10:00-0400 Body mass index (BMI) [Ratio]32.8 kg/q3Kyoasowu Ball DO Work Phone: 1419)[address] [place], [place] 0627908-26-2025 10:00-0400 Body qoebrl893.95 kgBenjamin Ball DO Work Phone: 1419)[address] [place], [place] 0627908-26-2025 10:00-0400 Diastolic blood dbkxjqac97 mm[Hg]Bogdan Ball DO Work Phone: 1(191)[address] [place], [place] 0627908-26-2025 10:00-0400 Heart rate68 /minBenjamin Ball DO Work Phone: 1419)[address] [place], [place] 0627908-26-2025 10:00-0400 Respiratory rate12 /minBenjamin Ball DO Work Phone: 1419)[address] [place], [place] 0627908-26-2025 10:00-0400 Systolic blood cfqndfsu776 mm[Hg]Bogdan Ball DO Work Phone: 1419)[address] [place], [place] 0627904-23-2025 11:25-0400 Body xadlui154.5 cm[facility]04-23-2025 11:25-0400Body mass index (BMI) [Ratio]33.1 kg/o9CqnjojrrpEast [facility] Hospital04-23-2025 11:25-0400Body .25 kg[facility]04-23-2025 11:25-0400Diastolic blood tpxwsblu09 mm[Hg][facility] 10-07-2024 11:25-0400Heart rate92 /[facility] 10-07-2024 11:25-0400Respiratory rate12 /[facility] 10-07-2024 11:25-0400Systolic blood veligrrh671 mm[Hg][facility]09-03-2024 09:37-0400Body wqgimu549.5 cm[facility] 02-18-2024 09:37-0400Body mass index (BMI) [Ratio]32.1 kg/z1WrljhavmfEast [facility]09-03-2024 09:37-0400Body .74 kg[facility]09-03-2024 09:37-0400Diastolic blood agotnhhf66 mm[Hg][facility]09-03-2024 09:37-0400Heart rate76 /[facility]09-03-2024 09:37-0400Respiratory rate12 /[facility]09-03-2024 09:37-0400Systolic blood ltfyjecd812 mm[Hg][facility]05-03-2024 09:06-0400Body hahfpe448.5 cm[facility]05-03-2024 09:06-0400Body mass index (BMI) [Ratio]31.8 kg/k8LggfbedrlEast [facility] Regional Hospital05-03-2024 09:06-0400Body gojrnp475.32 kg [facility]05-03-2024 09:06-0400Diastolic blood orobxfef44 mm[Hg][facility]05-03-2024 09:06-0400Heart rate80 /min [facility]05-03-2024 09:06-0400Respiratory rate12 /min [facility]05-03-2024 09:06-0400Systolic blood dbajknlx688 mm[Hg][facility]01-22-2024 09:00-0500Body wxujix049.5 cm Bogdan Ball Other [facility] Other 01-22-2024 09:00-0500Body mass index (BMI) [Ratio] 32.62 kg/c2Ydgoueyd Ball Other [employer] Other 01-22-2024 09:00-0500Body igorag077.39 kgBenjamin Ball Other [employer] Other 01-22-2024 09:00-0500Diastolic blood fszftoot69 mm[Hg] Bogdan Ball Other [employer] Other 01-22-2024 09:00-0500Respiratory rate12 /minBenjamin Ball Other [employer] Other 01-22-2024 09:00-0500Systolic blood mm[Hg] Bogdan Ball Other [employer] Other 11-15-2023 08:30-0500Body oimzgs605.5 cmBenjamin Ball Other [employer] Other 11-15-2023 08:30-0500Body mass index (BMI) [Ratio] 32.19 kg/f3Laelwrnh Ball Other [employer] Other 11-15-2023 08:30-0500Body xaarsl003.85 kgBenjamin Ball Other [employer] Other 11-15-2023 08:30-0500Diastolic blood aalaeatt06 mm[Hg] Bogdan Ball Other [employer] Other 11-15-2023 08:30-0500Respiratory rate12 /minBenjamin Ball Other [facility] Other 11-15-2023 08:30-0500Systolic blood kzniqmlb838 mm[Hg] Bogdan Ball Other [facility] [employer] Other 07-12-2023 08:30-0400Body bhnfum957.5 cmBenjamin Ball Other [facility] Other 07-12-2023 08:30-0400Body mass index (BMI) [Ratio] 31.54 kg/k6Towuwtyz Ball Other [facility] [employer] Other 07-12-2023 08:30-0400Body pexyra842.49 kgBenjamin Ball Other [facility] Other 07-12-2023 08:30-0400Diastolic blood fxtloekd26 mm[Hg] Bogdan Ball Other [facility] Other 07-12-2023 08:30-0400Respiratory rate12 /minBenjamin Ball Other [facility] Other 07-12-2023 08:30-0400Systolic blood ykqxcrjc402 mm[Hg] Bogdan Ball Other [facility] Other 05-26-2023 10:58-0400Blood Pressure LocationJohana GARCIA [facility]05-26-2023 10:58-0400Diastolic blood lkdxwure05 mm[Hg]Johana GARCIA [facility]05-26-2023 10:58-0400Heart rate78 /Shelby GARCIA [facility]05-26-2023 10:58-0400Respiratory rate16 /minJohana GARCIA [facility]05-26-2023 10:58-0400Systolic blood aqliniqk833 mm[Hg]Johana GARCIA [facility]04-21-2023 12:15-0400Body .5 cmBenjamin Ball Other [facility] Other 04-21-2023 12:15-0400Body mass index (BMI) [Ratio] 31.17 kg/z7Qrrnkcvt Ball Other [employer] Other 04-21-2023 12:15-0400Body .13 kgBenjamin Ball Other [employer] Other 04-21-2023 12:15-0400Diastolic blood rqiwvxwf02 mm[Hg] Bogdan Ball Other [employer] Other 04-21-2023 12:15-0400Respiratory rate12 /minBenjamin Ball Other [employer] Other 04-21-2023 12:15-0400Systolic blood wnkeeefk460 mm[Hg] Bogdan Ball Other [employer] Other 03-09-2023 08:30-0500Body codany199.5 cmBenjamin Ball Other [employer] Other 03-09-2023 08:30-0500Body mass index (BMI) [Ratio] 31.42 kg/u3Nwrrjppv Ball Other [facility] Other 03-09-2023 08:30-0500Body yyluhb973.04 kgBenjamin Ball Other [facility] Other 03-09-2023 08:30-0500Diastolic blood lolsylel83 mm[Hg] Bogdan Ball Other [facility] Other 03-09-2023 08:30-0500Respiratory rate12 /minBenjamin Ball Other [facility] Other 03-09-2023 08:30-0500Systolic blood snhifvvt220 mm[Hg] Bogdan Ball Other [facility] Other 04-22-2022 08:14-0400Blood Pressure LocationPatrick [employer] [facility] 04-22-2022 08:14-0400Diastolic blood iyjjvgyp87 mm[Hg] Johana [employer] [facility] 04-22-2022 08:14-0400Heart rate78 /minPatrick [employer] [facility] [place] 04-22-2022 08:14-0400Systolic blood ageaqlfi835 mm[Hg] Johana [employer] [facility] [place] Encounters Encounter DateEncounter TypeCare ProviderFacilityStart: 04-26-2025 End: 91-94-9352vlnusjowvsNvrlwdbx BallFacility:[facility] Start: 37-76-1913Fdq-patient / Non-visitVictor Manuel Ohara MD-[facility] Work Phone: Start: 03-22-2025 End: 92-80-4250Bwgefas encounter procedureNatalie A Felter [employer] Work Phone: [facility] DermatologyComment on above:Actinic keratosis (Primary Dx); Neoplasm of unspecified behavior of bone, soft tissue, and skinStart: 03-22-2025 End: 80-85-9654wkkhykjvujMNTWBMC A FELTERNot AvailableStart: 03-22-2025 End: 31-54-8141Chtevq flowsheetNatalie A Felter [employer] PROFESSOR-[employer] Work Phone: noRI [facility] DermatologyStart: 03-22-2025 End: 52-78-9196Xwbulb flowsheetNatalie A Felter [employer] PROFESS[employer] Work Phone: noRI [place] DermatologyStart: 02-09-2025 End: 24-49-9930ihseykhubmLylqsyhg Ball DO Work Phone: [facility] Work Phone: Start: 02-09-2025 End: 07-96-2648Qyfvcgr encounter procedureBejessica Pruitt DO-[facility] Work Phone: Start: 58-14-4167Txg-patient / Non-visitBejessica Pruitt DO-[facility] Work Phone: Start: 10-07-2024 End: 35-17-0772snbdufnktkDxohjviupCrystal Clinic [facility] Work Phone: Start: 10-07-2024 End: 31-03-0934Jneegpi encounter procedureAt[facility] Work Phone: Start: 27-57-5917Ztc-patient / Non-visitAt[facility] Health [facility] Work Phone: Start: 08-21-2024 End: 76-70-9564unhkbizuwjGpwwpwv Vytautas Giedraitis MDFacility:[facility] Hospitaltart: 06-01-2024 End: 29-53-4133flupkrwmiuSqcaabi Vytautas Giedraitis MDFacility:[facility] [place] Start: 79-61-1247Wbblnph [facility] Start: 05-04-2024 End: 97-41-1009bdhspnkpsjMotjrki Vytautas Giedraitis MDFacility:[facility] [place] Start: 04-20-2024 End: 41-10-6464eityrxojaiLlwsbzw Vytautas Giedraitis MDFacility:[facility] [place] Start: 36-38-5859ejneihfgfkJmiltdh R WATERSFacility:[facility] Hospitaltart: 02-18-2024 End: 68-45-2100ddpjphqubpIeiekiaevCrystal Clinic Orthopedic Center Work Phone: Start: 02-18-2024 End: 69-44-7725Lmhgujn encounter procedureAtrium Health Stanly Physician GroupBar[facility] Work Phone: Start: 20-89-1444Fre-patient / Non-visitAtrium Health Stan[facility] Physician [facility] Work Phone: Start: 10-18-2023 End: 98-13-9693mraehuunhdTqhvvuidfCrystal Clinic Orthopedic Center Work Phone: Start: 10-18-2023 End: 22-80-0293Coymppk encounter procedureAtrium Health Stan[facility] Physician GroupBar[facility]ton [facility] Work Phone: start: 13-71-6095Ozr-patient / Non-visitAtrium Health Stan[facility] Phys[facility] GroupW[facility] Work Phone: Start: 84-55-6016Yfq-patient / Non-visitFircarilion t[facility] Phys[facility] GroupWays[facility] Work Phone: Start: 26-95-2292Hhb-patient / Non-visitFirelands Physician [facility] Work Phone: Start: 84-93-8091Xfo-patient / Non-visitAt[facility] Health [facility] Work Phone: Start: 07-29-2023 End: 52-59-9832iomohwzeoqZhonpjvx Ball Other [facility] Other Start: 36-58-3704Feskckicv encounterBenjamin BallFPG [facility] ClinicStart: 07-08-2023 End: 79-41-3163vhlzvjkcdwVoodkfll Ball Other [facility] Other Start: 42-07-6977Jilqvm outpatient visit 25 minutes Bogdan ShayneG [facility] ClinicStart: 05-10-2023 End: 57-30-6916lofnfequurQvnwcicn Ball Other [employer] [facility] Other Start: 36-27-6226Oynmwv outpatient visit 15 minutes Bogdan BallFPG [facility] ClinicStart: 05-01-2023 End: 39-75-8459ososukajjiZbvzmmip Ball Other [facility] Other Start: 27-71-6809Kgqxruu encounter procedureBenjamin BallFPG [facility] ClinicStart: 04-24-2023 End: 49-04-4518yeskvoynmnZkwdtndj Ball Other [facility] Other Start: 23-52-9157Pxpkotluy encounterBenjamin BallFPG [facility] ClinicStart: 02-25-2023 End: 61-53-6065jwaxbvbkziHbetmqks Ball Other [facility] Other Start: 55-41-1420Kfktbrdfc encounterBenjamin BallFPG [facility] ClinicStart: 12-27-2022 End: 24-86-7699xxrqwamkqfIpnwggeo Ball Other [facility] Other Start: 96-92-4394Arhbpucoy encounterBenjamin BallFPG [facility] ClinicStart: 12-26-2022 End: 41-03-2610gcddmypnzrDnexoouw Ball Other [facility] Other Start: 75-91-6741Rvlidb outpatient visit 25 minutes Bogdan BallFPG [facility] ClinicStart: 11-19-2022 End: 71-82-8287fytnypxgukKjwwygch Ball Other [facility] Other Start: 11-52-9027Oalisxasq encounterBenjamin BallFPG [facility] ClinicStart: 11-09-2022 End: 33-76-0430Eaabuvj encounter procedurePajaniya GARCIA [facility] start: 10-22-2022 End: 55-52-3162acdsyastvjBwrcxnnj Ball Other [employer] [facility] Other Start: 84-26-7945Wuzzoguoa encounterBenjamin BallFPG [facility] ClinicStart: 10-18-2022 End: 39-39-0815ktfbpbswtlWcoiryjp Ball Other [employer] [facility] Other Start: 36-18-2791Gayrkfnyp encounterBenjamin BallFPG [facility] ClinicStart: 10-05-2022 End: 84-85-1378ayoudfnszjPwtzpirw Ball Other [facility] Other Start: 55-02-5477Zqivkh outpatient visit 15 minutes Bogdan BallFPG [facility] ClinicStart: 09-27-2022 End: 77-50-9724vcqnfavivkKjtvnjqg Ball Other [facility] Other Start: 61-61-8062Ntyhjdlxy encounterBenjamin BallFPG [facility] ClinicStart: 09-25-2022 End: 89-87-6791sbybkostwxPahrrkba Ball Other [facility] Other Start: 08-99-6620Axswevdun encounterBenjamin BallFPG [facility] ClinicStart: 09-21-2022 End: 20-83-7276lvlnvxcxlsOwbzgxgu Ball Other [employer] Other Start: 15-24-2101Ealhjwfid encounterBenjamin BallFPG Ball Medical ClinicStart: 08-23-2022 End: 46-22-9947drxluhtndtLemyaiuu Ball Other [facility] Other Start: 52-50-7213Slpehj outpatient visit 25 minutes Bogdan BallFPG [facility] Medical ClinicStart: 08-17-2022 End: 97-74-5762dpdlhlzxanWT BOGDAN BALLFacility:V2Xbybq: 08-14-2022 End: 23-64-8043ncuasnrscsAsgorqeq Ball Other [facility] Other Start: 76-14-6038Dexlsmqef encounterBenjamin BallFPG [facility] Medical ClinicStart: 07-01-2022 End: 54-66-6401cdutktyoxnYY BOGDAN BALLFacility:B2Tfigt: 80-83-4301Omqfp health examinationBenjamin Ball Other [employer] Other Start: 04-18-2022 End: 12-33-2947lrxhfeatklXY BOGDAN BALLFacility:B6Cqwtf: 01-20-2022 End: 26-31-9953mxaujtcngqHM NONE LISTED REQUESTFacility:Z1Zrwfl: 10-06-2021 End: 52-09-0789Nayneyd encounter procedurePatriclivier Сергей [employer] [facility] start: 09-16-2021 End: 30-41-1190fmyfgcnkfiKZ JOHANA JOSE .Facility:Z1Wzwsq: 09-15-2021 End: 54-86-4178lyntkbfoqhHC NONE LISTED REQUESTFacility:S8Txfcj: 08-29-2021 ambulatoryDR BOGDAN BALLFacility:H1 Procedures DateProcedureProcedure DetailPerforming ClinicianStart: 44-32-7524VQAS / NAIL BIOPSYNatalie A Felter [employer]ING Work Phone: Start: 16-68-2455RUFBBFCHARO SKIN LESIONNatalie A Felter [employer] PROFESS[employer]ING Work Phone: Start: 25-03-6039XNP screeningDR BOGDAN EDMONDComment on above:Performed By: #### BMP, LIPID, ALT, URIC #### [facility] [address] [place] [address] Dr. Jorge L CareyStart: 66-53-6873Pedeedx examination of patientBejessica Pruitt Other Start: 88-43-3154EtqshxabyuBfnjbch WATERS Start: 67-69-1060Psmbvmcurnjwhs screeningBenestefani Pruitt Other Start: 07-21-7993Tkawimkyn for malignant neoplasm of prostateBenestefani Pruitt Other ColonoscopyHobo Labs Depression screeningBenestefani Pruitt Other History of hernia repairPaMediKeeperlivier [employer] Perirectal abscess (disorder)Johana GARCIA Screening for malignant neoplasm of colonBenestefani Pruitt Other Plan of Treatment DateCare ActivityDetailAuthorStart: 09-27-2025 End: 72-16-5710Aphmwjh encounter yjpmiwpnr74/13/2026 1:05 PM EDT Office Visit [facility] [address] [place] [phone] Orin Sarmiento, [employer] PROFESSOR-[employer] SITTING [address] [place] [address] [facility]ITALTamara [place] DermatologyStart: 78-19-5080LigpjaiupSamaritan North Health Centertart: 03-22-2025 End: 32-08-0472Bjcyvgk encounter gjwrxqabl47/06/2025 2:40 PM EDT Office Visit [facility] [address] [place] [phone] Orin Sarmiento, [employer] PROFESSOR-[employer] SITTING [address] [place] [address] [facility] Comment on above:ArrivedStart: 80-40-1284Oeqgrdfzu vaccinationInfluenza Vaccine (#1)[facility]Start: 38-80-9554Pcjwtdtvg for malignant neoplasm of colon [facility] HospitalDermatopathology examDermatopathology exam Pathology and Cytology Timed Neoplasm of unspecified behavior of bone, soft tissue, and skin Release Upon Ordering for 1 Occurrences starting 03/22/2025[facility] Work Phone: comment on above:Release Upon Ordering for 1 Occurrences starting 03/22/2025Patient EducationColon polyps [facility] Hemorrhoids Discharge Instructions Know your [facility] Work Phone: us Heart TransthoracicEast [facility] Regional HospitalXR Chest 2 ViewsAdventHealth Orlando Immunizations Immunization DateImmunizationNotesCare WvnilengWcbylvva46-12-0747itjfifmre virus vaccine, unspecified formulationNatalie Guillermina [employer] PROF[employer]ING Work Phone: [facility] [place] HospitalTrwtaiiqwz65-68-1780owszbz vaccine recombinant Bogdan Ball Other [facility]11-10-2023influenza virus vaccine, unspecified formulationEast [facility] Hospital 23-15-5260hmbvttdcs, high dose seasonal, preservative-freeAnkityonisestefani Pruitt Other noSciAps [facility] Other [id number] vaccine recombinantBogdan Pruitt Other [facility]11-09-2022 pneumococcal 20-valent conjugate vaccinePaTelisma [facility]10-31-2022influenza virus vaccine, split virus (incl. purified surface antigen)Bogdan Pruitt Other [facility] Other [id number] virus vaccine, unspecified formulationPaTelisma [facility]10-07-2022SARS-CoV-2 (COVID-19) mRNAMUL.ORD!m69188Zkpmmpx [employer] [facility]11-22-2021SARS-CoV-2 (COVID-19) mRNA BNT-162b2 vaxNdMediKeeperlivier [employer] [facility]11-06-2021influenza virus vaccine, split virus (incl. purified surface antigen)Bogdan Pruitt Other [employer] [facility] Other 181403-02-9175ztegvgeaw virus vaccine, unspecified formulationPaTelisma [facility]10-14-2021influenza virus vaccine, unspecified formulationHobo Labs [facility] [id number]-60, mRNA, LNP-S, PF, 30 mcg/0.3 mL dose; Translations: [Pfizer-BioNTech COVID-19 Vaccine]Johana GARCIA [facility] comulnn on above:Reason for Medication: Prophylaxis 67-11-0305CBJJZ-19, mRNA, LNP-S, PF, 30 mcg/0.3 mL dose; Translations: [Pfizer- BioNTech COVID-19 Vaccine]Johana GARCIA [facility] combhln on above:Reason for Medication: Prophylaxis 18-49-3763ewnkljmuc virus vaccine, split virus (incl. purified surface antigen) Bogdan Pruitt Other NoRel[facility] Other 261259-08-9941fwdkvoanm virus vaccine, unspecified formulationPakindred hospital louisvillelivier GARCIA [facility] Centeruepneumococcal Conjugate, unspecified formulation; Translations: [Need for prophylactic vaccination against Streptococcus pneumoniae (pneumococcus)] Bogdan Pruitt Other [employer] Other Payers DatePayer CategoryPayerPolicy [id number]-upt [id number] ShieldBS [id number]140Cdep [facility] [id number] 2.0.0.571526.86874517-90-0963Qbjozyi5[id number] 2022Medicare0420[id number] [id number] 15-73-9985Zdck-rys09735549876-83-7865YtoaqbwBEQAW808118925-01-1502Frohael [id number] 2..1.020910.3.579.2. [id number] 2..1.954899.3.57[id number] 2..1.978660.3.579.[id number] 2..1.127395.3.57[id number] 2..1.040099.3.57[id number] 2..1.420102.3.579.[id number] 2.0.1.857260.3.579.[id number] 2.0.1.744758.3.57[id number] 2.0.1.678947.3.579.[id number] 2.16.840.1.482057.3.579.[id number] 2.16.840.1.190438.3.579.2.7072Rifpbhm7895641 2.16.840.1.850976.3.579.2.593 [id number] 2.16.840.1.88[id number] 2.16.840.1.830189.3.579.2.531 Social History DateTypeDetailFacilityStart: 10-06-2021 End: 97-50-7544Dlisoqb smoking statusNever smoked tobacco (finding)[facility] start: 42-79-2182Sry Assigned At [facility] Waynex[facility] Tobacco smoking statusNeverExecutive Urology of [facility] Medical Centertart: 71-55-3260Fak Assigned At [facility] Centertart: 01-84-5185OkvRqqe (finding)[facility] HospitalTobacco smoking status NHISTobacco smoking consumption unknownNOMS HealthcareStart: 87-56-9319Boi assigned at birthNot on fileNORI HealthcareStart: 61-59-2699Cgmyslt use and exposureSmokeless tobacco non-userNOMS Healthcare Start: 81-73-0236Skpfldr of Social functionNORI Healthcare Medical Equipment Procedure CodeEquipment CodeEquipment Original TextEquipment IdentifierDates Blood Sugar Diagnostic ([employer] Ultra Test) stripStart: 26-26-6478Znmap Sugar Diagnostic ([employer] Ultra Test) stripStart: 86-26-5403Lfj Needle, Diabetic (Bd Isa 2nd Gen Pen Needle) 32 gauge x 5/32 needleStart: 28-14-5984Axe Needle, Diabetic (Bd Isa 2nd Gen Pen Needle) 32 gauge x 5/32 needleStart: 10-29-2023 End: 00-86-2339Qpjxj Sugar Diagnostic ([employer] Ultra Test) stripStart: 49-58-3002Zqt Needle, Diabetic (Bd Isa 2nd Gen Pen Needle) 32 gauge x 5/32 needleStart: 81-48-0182Itnkz Sugar Diagnostic (Onetouch Ultra Test) stripStart: 08-16-2023 End: 99-28-1136Jkmbg Sugar Diagnostic stripStart: 08-16-2023 End: 97-35-5794Ksv Needle, Diabetic (Bd Isa 2nd Gen Pen Needle) 32 gauge x 5/32 needleStart: 10-29-2023 End: 09-53-5310Dpjpm Sugar Diagnostic (Onetouch Ultra Test) stripStart: 54-44-2089Ved Needle, Diabetic 32 gauge x 5/32 needleStart: 50-39-7957Pseco Sugar Diagnostic (Onetouch Ultra Test) stripStart: 08-16-2023 End: 05-88-7877Gyqqh Sugar Diagnostic stripStart: 08-16-2023 End: 39-39-9163Onq Needle, Diabetic (Bd Isa 2nd Gen Pen Needle) 32 gauge x 5/32 needleStart: 10-29-2023 End: 77-71-6753Lco Needle, Diabetic (Bd Isa 2nd Gen Pen Needle) 32 gauge x 5/32 needleStart: 10-29-2023 End: 30-90-2259NIT TO TEST BLOOD SUGAR ONCE A DAYStart: 05-52-1922Eednc Sugar Diagnostic (Onetouch Ultra Test) stripStart: 63-85-4755Ewr Needle, Diabetic 32 gauge x 5/32 needleStart: 13-16-4296Ljrsu Sugar Diagnostic (Onetouch Ultra Test) stripStart: 08-16-2023 End: 22-60-1702Jbulh Sugar Diagnostic stripStart: 08-16-2023 End: 78-69-0990Ada Needle, Diabetic (Bd Isa 2nd Gen Pen Needle) 32 gauge x 5/32 needleStart: 10-29-2023 End: 91-90-4742Oxl Needle, Diabetic (Bd Isa 2nd Gen Pen Needle) 32 gauge x 5/32 needleStart: 10-29-2023 End: 10-29-2023 Functional Status IpdwRlurjrqjqbGarnbqXvhgalrm02-15-3177Hmzzcghqop StatusN/AExec[facility] Clinical Notes 10-06-2021 to 03-22-2025 Note Date & DmtpBxfdYuxvjlwh20-33-1390 History of Present illness Narrative* Orin Sarmiento, [employer] PROFESSOR-PET SITTING - 03/22/2025 2:40 PM EDT Images from [...] Posterior (2), Left Frontal Scalp, Left Mid Keystone, Left Scaphoid Fossa, Left Superior Keystone (2), Left Upper Arm - Posterior, Left [...] limited to risks of scarring, darker or bin packer pigmentary changes, recurrence, incomplete removal and infection. [...] Posterior (2), Left Frontal Scalp, Left Mid Keystone, Left Scaphoid Fossa, Left Superior Keystone (2), Left Upper Arm - Posterior, Left [...] Visit: 6 months FBSE documented in this encounterSoutheast Missouri HospitalVvgfjoyfxv44-70-7269 Evaluation note* Diagnosis Onset Date Resolution Status Admit Date Dyspnea acuteAugust 2024 9:52amElevated cholesterolacuteAugust 2024 9:52am Gastroesophageal reflux disease with esophagitis without hemorrhageacuteAugust 2024 9:52amPrimary hypertensionacuteAugust 2024 9:52amSpondylosis without myelopathy or radiculopathy, lumbar regionacuteAugust 2024 9:52am Type 2 diabetes mellitus with hyperglycemiaacuteAugust 2024 9:52am Screening for colon cancernoneaDonalsonville Hospital 2024 9:52am [facility] Work Phone: 1(625) 207-332303-07-2025 NoteProcedure: Vertiflex Superion Placement at L4-5 PREOPERATIVE [...] created on his/her behalf by a trained expert medical writer. The creation of this document is based on the provider?s statements to the expert medical writer. Electronically signed by Dm Cyr MD 08/21/24 11:25 EST Electronically signed by Cyn Osorio 08/21/2024 11:18 [facility]03-07-2025 Note History of Present Illness HISTORY OF [...] created on his/her behalf by a trained expert medical writer. The creation of this document is based on the provider?s statements to the expert medical writer. Problem List/Past Medical History Ongoing Acid reflux [...] Electronically signed by Cyn Osorio 08/21/2024 09:29 [facility]02-12-2024 Evaluation note* Encounter Date Diagnosis Assessment Notes Treatment Notes Treatment Clinical Notes Jul, Type 2 diabetes birdie itus with hyperglycemia, without long-term current use of insulin (ICD-10 - E11.65) [employer] Other 01-22-2024 Evaluation note* Encounter Date Diagnosis [...] index [BMI] 32.0-32.9, adult (ICD-10 - Z68.32) [employer] Other 11-24-2023 Evaluation note* Encounter Date Diagnosis [...] Microalbumin, Dilated eye exam and Foot exam [employer] Other 11-15-2023 Evaluation note* Encounter Date Diagnosis [...] acute flares Sep,Thrombocytopenia, unspecified (ICD-10 - D69.6) [employer] Other 11-15-2023 Evaluation note* Encounter Date Diagnosis [...] acute flares Sep,Thrombocytopenia, unspecified (ICD-10 - D69.6) [employer] Other 11-08-2023 Evaluation note* Encounter Date Diagnosis Assessment Notes Treatment Notes Treatment Clinical Notes Apr, Screening PSA (prostate specific antigen) (ICD-10 - Z12.5) Apr,Type 2 diabetes mellitus with hyperglycemia, without long-term current use of insulin (ICD-10 - E11.65) Apr,Elevated cholesterol (ICD-10 - E78.00) Apr,rimary hypertension (ICD-10 - I10) Sep,Thrombocytopenia, unspecified (ICD-10 - D69.6)Thrombocytopenia [employer] Other 07-12-2023 Evaluation note* Encounter Date Diagnosis [...] (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 (ICD-10 - Z79.4) [employer] Other 05-26-2023 Hospital Discharge instructions Patient Education [...] treatment? Where to find more information [employer]: www.cancer.org [employer]: www.auanet.org Contact a health care [...] provider. Document Revised: 11/27/2021 Document Reviewed: 11/27/2021 [employer] Patient Education 2022 Share Some Style. Follow Up Care 10/06/2021 08:40:21 With:JOSE MCMANUS, Johana Rushing, URL Address: [facility] [address] , [place] [address]- When: Unknown [facility] Kyree 05-08-2023 Evaluation note* Encounter Date Diagnosis Assessment Notes Treatment Notes Treatment Clinical Notes October, Primary hypertension (ICD-10 - I 10) [employer] Other 05-04-2023 Evaluation note* Encounter Date Diagnosis Assessment Notes Treatment Notes Treatment Clinical Notes October, Primary hypertension (ICD-10 - I 10) [employer] Other 04-21-2023 Evaluation note* Encounter Date Diagnosis [...] and Glimepiride appear to be controlling BS. [employer] Other 04-13-2023 Evaluation note* Encounter Date Diagnosis Assessment Notes Treatment Notes Treatment Clinical Notes Sep, Type 2 diabetes mellitus with hy perglycemia (ICD-10 - E11.65) Sep,Long term (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 (ICD-10 - Z79.4) [employer] Other 04-11-2023 Evaluation note* Encounter Date Diagnosis Assessment Notes Treatment Notes Treatment Clinical Notes Sep, Type 2 diabetes birdie itus with hyperglycemia, without long-term current use of insulin (ICD-10 - E11.65) [employer] Other 04-07-2023 Evaluation note* Encounter Date Diagnosis Assessment Notes Treatment Notes Treatment Clinical Notes Sep, Type 2 diabetes mellitus with hy perglycemia (ICD-10 - E11.65) [employer] Other 03-09-2023 Evaluation note* Encounter Date Diagnosis [...] Reviewed red flag symptoms and nerve impingement [employer] Other 02-28-2023 Evaluation note* Encounter Date Diagnosis Assessment Notes Treatment Notes Treatment Clinical Notes Jul, Type 2 diabetes birdie itus with hyperglycemia, without long-term current use of insulin (ICD-10 - E11.65) [employer] Other 04-22-2022 Hospital Discharge instructions Patient Education [...] urethra. Follow these instructions at home: Take xxlj-osy-avvlzbw and prescription medicines only as told by [...] 06/03/2006 Document Revised: 04/28/2019 Document Reviewed: 07/08/2017 [employer] Patient Education 2020 Share Some Style. Follow Up Care 10/03/2020 15:00:49 With:Johana GARCIA MD, URL Address: [facility] [address], [place] [phone] When:10/06/2022 [facility] evaluation + Plan note Future Appointments Appointment Date:10/12/2022 08:00:00 AM Scheduled Provider:Johana GARCIA MD Location:[facility] Appointment Type:URO Office Visit Diagnostic Tests Pending * PSA Total 10/06/21 [facility] evaluation + Plan note Future Appointments Appointment Date:11/18/2023 08:45:00 AM Scheduled Provider:[facility] Office Visit Diagnostic Tests Pending * PSA Free & Total 11/09/22 [facility] evaluation noteNost. [facility] Other Evaluation noteNo [facility] Other Evaluation note* Diagnosis Onset Date Resolution Status Elevated cholesterol acuteGastroesophageal reflux disease with esophagitis without hemorrhageacute ObesityacutePrimary hypertensionacuteSpondylosis without myelopathy or radiculopathy, lumbar regionacuteType 2 diabetes mellitus with hyperglycemia acute [facility] Work Phone: Evaluation note* Diagnosis Onset Date Resolution Status Elevated cholesterol acuteGastroesophageal reflux disease with esophagitis without hemorrhageacute Primary hypertensionacuteSpondylosis without myelopathy or radiculopathy, lumbar regionacuteType 2 diabetes mellitus with hyperglycemiaacute [facility] Work Phone: Evaluation note* Diagnosis Onset Date Resolution Status Admit Date Dyspnea acuteApril 2024 10:54amElevated cholesterolacuteApril 2024 10:54am Gastroesophageal reflux disease with esophagitis without hemorrhageacuteApril 2024 10:54amPrimary hypertensionacuteApril 2024 10:54amSpondylosis without myelopathy or radiculopathy, lumbar regionacuteApril 2024 10:54am Type 2 diabetes mellitus with hyperglycemiaacuteApril 2024 10:54am Screening for colon cancernoneactiveApril 2024 10:54am [facility] Work Phone: Evaluation note* Diagnosis Onset Date Resolution Status Admit Date Dyspnea acuteAugust 2024 9:52amElevated cholesterolacuteAugust 2024 9:52am Gastroesophageal reflux disease with esophagitis without hemorrhageacuteAugust 2024 9:52amPrimary hypertensionacuteAugust 2024 9:52amSpondylosis without myelopathy or radiculopathy, lumbar regionacuteAugust 2024 9:52am Type 2 diabetes mellitus with hyperglycemiaacuteAugust 2024 9:52am Screening for colon cancernoneactiveAugust 2024 9:52am [facility] Work Phone: Evaluation note* Diagnosis Actinic keratosis- [...] HistoryAdenomatous polyp of descending colonMedical HistoryLumbar spondylosisSurgical BzsbahkXHMNRUFOAMB5555,2013,2020Surgical HistoryCYSTOSCOPY 2016Hospitalization HistorySEE SURGICAL HX [employer] Other History general Narrative - ReportedNost. louis [facility] Other History general Narrative - Reported* Type Description Date Medical History Controlled type 2 di abetes mellitus with hyperglycemia, without long-term current use of insulin Medical HistoryPrimary hypertensionMedical HistoryElevated cholesterolMedical HistoryGastroesophageal reflux disease with esophagitis without hemorrhage Medical HistoryAdenomatous polyp of descending colonMedical HistoryLumbar spondylosisSurgical HistoryCOLONOSCOPY, (repeat 2024)2002,2013,2020Surgical FcikukrVLYWTFIZDJ7636Yksggaszcsqdnqi HistorySEE SURGICAL [employer] Other Hospital course Narrative No data available for this section [facility] Discharge instructionsAdditional Instructions DISCHARGE INSTRUCTIONS FOR [...] years. -Follow up with PCP. -Office number [phone]. [facility] Work Phone: Progress note No data available for this section [facility] reason for referral (narrative)No reason for referral information availableProvidence Hospital Work Phone: Summary Purpose Family History No [...] well ness visit, initial (Z00.00) Referral Organization [facility] Edmond de la cruz Referring Provider First Name Bogdan Referring Provider Last Name Edmond Referring Provider Specialty Internal Me zuleima Referred Organization [facility] Referred Provider Swapnil French Referred Address [address] [place], [place],[address] Referred Provider Specialty Pain Medicin e Referral [...] referral faxedClinical NotesInclude XR lumbar spine f: [phone] Chief Complaint and Reason for Visit Chief [...] section and content) DATE CREATED AUTHOR 08/22/2022 [facility] DATE CREATED AUTHOR AUTHOR'S ORGANIZ ATION 11/14/2023 [facility] DATE CREATED AUTHOR AUTHOR'S ORGANIZ ATION 08/25/2024 [facility] DATE CREATED AUTHOR AUTHOR'S ORGANIZ ATION 03/25/2025 [facility] DATE CREATED AUTHOR AUTHOR'S ORGANIZ ATION 04/28/2025 [facility] REASON FOR VISIT (unrecogniz ed section and content) ReasonCommentsSuspicious Skin LesionBS readingsElevated blood [id number]-UTXSL PositiveWellnesslabsLab ResultsBP readingsrefillelevated BPMedication4 MONTH FOLLOW UP [...] BE BASED ON THE PRIMARY CLINICAL RECORDS. [facility]. provides no warranty or guarantee of the accuracy or completeness of information in this document.
--- OUTSIDE RECORDS SUMMARY | 2025-05-12 06:38 | XMS_ITS | Encounter Summary ---
Author Organization [facility] Address [address] [place] [address] Care Team Providers Care Insulation Blower Name Role Phone Unavailable Primary Care Provider Unavailabl e Encounter Details DateTypeDepartmentCare Team (Latest Contact Info)Tnswpkqozda16/24/2025Travel Social History Tobacco UseTypesPacks/DayYears UsedDateSmoking Tobacco: NeverSmokeless Tobacco: NeverSex and Gender InformationValueDate RecordedSex Assigned at BirthNot on fileLegal VfzOfdf9102/11/2025 10:22 AM EDTGender IdentityNot on fileSexual OrientationNot on filedocumented as of this encounter Plan of Treatment DateTypeDepartmentCare Team (Latest Contact Info)Xonwhqevgdh24/08/2025 11:25 AM ESTOffice Visit [facility] [place] [facility] [address] [place] [address] Za Huitron MD [address] [place] [address] 09/27/2025 1:05 PM EDTOffice Visit [facility] [address] [place] [address] Kamala Sarmiento APRN-ANGELIQUE [address] [place] [address] documented as of this encounter Visit Diagnoses Not on filedocumented in this encounter
--- OUTSIDE RECORDS SUMMARY | 2025-05-12 06:38 | XMS_ITS | Clinical Summary ---
Author Organization [facility] Address [address] [place] [address] Care Team Providers Care Stem Dryer Maintainer Name Role Phone Unavailable Primary Care Provider [...] Problems ProblemNoted DateDiagnosed DatePrecordial pain05/30/2015 Encounters DateTypeDepartmentCare DsctErmmrdktndm89/13/2025Lab Requisition [facility] [address] [place] [address] Victor Manuel Ohara MD Person encountering health services to consult on behalf of another personfrom Last 3 Months Family History Medical HistoryRelationCommentsSkin CancerBrother 2CHF [Other]FatherDiabetes FatherRelationStatusCommentsBrother 1AliveBrother 2FatherAliveMotherAlive Social History Tobacco UseTypesPacks/DayYears UsedDateSmoking Tobacco: NeverSmokeless Tobacco: NeverAlcohol UseStandard Drinks/WeekCommentsYes0 (1 standard drink = 0.6 oz pure alcohol)beer occasionallySex and Gender InformationValueDate RecordedSex Assigned at BirthNot on fileLegal UtjXnac50/08/2015 11:43 AM ESTGender Identity Not on fileSexual OrientationNot on fileOccupationIndustryJob Start DateJob End DateNot on fileNot on fileNot on fileNot on filecustodial duties schoolNot on fileNot on fileNot on file Last Filed Vital Signs Vital SignReadingTime TakenCommentsBlood Vlzpttcp673/9405/30/2015 10:35 AM EST Hexvl129705/30/2015 10:35 AM QAUTmhusxeroji69 ??C (96.8 ??F)05/30/2015 10:35 AM ESTRespiratory Moul360507/31/2014 10:35 AM ESTOxygen Fkmefgrbjk17%05/30/2015 10:35 AM ESTInhaled Oxygen Concentration--Avweyw318.7 kg (248 lb 6.4 oz)05/30/2015 10:35 AM HSHMbbacs308.6 cm (6' 5 )05/30/2015 10:35 AM ESTBody Mass Index29.46 05/30/2015 10:35 AM EST Plan of Treatment Health MaintenanceDue DateLast DoneCommentsAnxiety Ewiatcrxs00/10/1975Depression Swqglqgdy10/10/1975Hepatitis C Suoftbtcy20/10/1975DTaP,Tdap,Td Vaccine (1 - Tdap)09/25/1975Lipid Ftkszmgpx82/10/1992CT Qpbonkohqwte64/10/2002Cologuard (FIT-DNA)09/24/20015317Vuxkhpbophy52/10/2002Colorectal Cancer Akfckkghq85/10/2002 Diabetes Mhotdtmkg99/10/2002Fecal Occult Blood2001Prostate Cancer Screening Orzdnmrfjl55/10/1510Thsqlqdvnpcii70/10/2002Pneumococcal Vaccine: 50+ (1 of 1 - PCV)2006Shingrix Vaccine (1 of 2)2006dvance Directive Hzfyfecrwr25/01/2025ovid-19 Vaccine (1 - 2024- season)2025Influenza Vaccine (#1)2025RSV Vaccine (1 - 1-dose 75+ series)09/25/2031 Procedures Procedure NamePriorityDate/TimeAssociated DiagnosisCommentsSURGICAL PATHOLOGY REFERENCE LAB EGQLSCIOlykwhi61/13/2025 9:49 AM EST Person encountering health services to consult on behalf of another person from Last 3 Months Results * SURGICAL PATHOLOGY REFERENCE LAB CONSULT (04/29/2025 9:49 AM EST)Component ValueRef RangeTest MethodAnalysis TimePerformed AtPathologist SignatureCase ReportSurgical Pathology Report ? Case: [id number] ? Authorizing Provider: ??Victor Manuel Ohara MD ?Collected: ? 04/29/2025 09:49AM ? Ordering Location: ? [facility] ?Received: ?04/29/2025 09:48 AM ? [facility] ? Pathologist: ? Ze Dover MD ? Specimen: ?Slide(s), 4 SLIDES [id number] ? 04/30/2025 11:12 AM [facility] LABFINAL DIAGNOSIS1. 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 - Complete lesion removal with negative margins is recommended. 2. Colon, descending, polypectomy (B1): - Fragments of tubular adenoma.04/30/2025 11:12 AM [facility] at 1112 ESTClinical HistoryCONSULT MGIRPTWIR09/14/2025 11:12 AM [facility] Performing LabDiagnostic interpretation performed at: [facility], [address] [place] [address] [id number] CLIA# [id number] Certified Medical Asst: Ruben Clayton MD 04/30/2025 11:12 AM [facility] LABDisclaimerLaboratory Developed Test (LDT) Disclaimer: Performance characteristics of immunohistochemical, immunofluorescent, and chromogenic in-situ hybridization tests have been determined by the performing laboratory within the [facility] Department of Pathology and Laboratory Medicine ([facility], [facility], [facility], [facility], [facility], [facility], or [facility]) in a manner consistent with CLIA requirements. [...] negative controls stain appropriately.04/30/2025 11:12 AM EST [facility] LABSpecimen (Source)Anatomical Location / Laterality Collection Method / VolumeCollection TimeReceived TimeBlocks or SlidesMICROSCOPE SLIDE / Fsquaoj5504/29/2025 9:49 AM EST04/29/2025 9:48 AM EST Narrative Authorizing ProviderResult TypeResult StatusImad Asaad MDSURGICAL PATHOLOGYFinal ResultPerforming OrganizationAddressCity/State/ZIP CodePhone Number [facility] [address] [place] [phone], from Last 3 Months Insurance
--- OUTSIDE RECORDS SUMMARY | 2025-05-12 06:38 | XMS_ITS | Encounter Summary ---
Author Organization [facility] Address [address] [place] [address] Care Team Providers Care Tack Coverer Name Role Phone Unavailable Primary Care Provider Unavailabl e Source Comments In the event this information is protected by the Federal Confidentiality of Alcohol and Drug AbusePatient Records regulations: The Federal rules restrict any use of the information to criminally investigate or prosecute any alcohol or drug abuse patient.[facility] Encounter Details DateTypeDepartmentCare Team (Latest Contact Info)Wavlkniayvj72/13/2025Lab Requisition [facility] [address] [place] [address] Victor Manuel Ohara MD [address] [place] [address]. [place] [id number] Person encountering health services to consult on behalf of another person Social History Tobacco UseTypesPacks/DayYears UsedDateSmoking Tobacco: NeverSmokeless Tobacco: NeverAlcohol UseStandard Drinks/WeekCommentsYes0 (1 standard drink = 0.6 oz pure alcohol)beer occasionallySex and Gender InformationValueDate RecordedSex Assigned at BirthNot on fileLegal BhfGdps73/08/2015 11:43 AM ESTGender Identity Not on fileSexual OrientationNot on fileOccupationIndustryJob Start DateJob End DateNot on fileNot on fileNot on fileNot on filecustodial duties schoolNot on fileNot on fileNot on filedocumented as of this encounter Plan of Treatment Not on file documented as of this encounter Procedures Procedure NamePriorityDate/TimeAssociated DiagnosisCommentsSURGICAL PATHOLOGY REFERENCE LAB GLVKGASQwzpqgl26/13/2025 9:49 AM EST Person encountering health services to consult on behalf of another person documented in this encounter Results * SURGICAL PATHOLOGY REFERENCE LAB CONSULT (04/29/2025 9:49 AM EST)Component ValueRef RangeTest MethodAnalysis TimePerformed AtPathologist SignatureCase ReportSurgical Pathology Report ? Case: [id number] ? Authorizing Provider: ??Victor Manuel Ohara MD ?Collected: ? 04/29/2025 09:49AM ? Ordering Location: ? [facility] ?Received: ?04/29/2025 09:48 AM ? [facility] ? Pathologist: ? Ze Dover MD ? Specimen: ?Slide(s), 4 SLIDES [id number] ? 04/30/2025 11:12 AM [facility] LABFINAL DIAGNOSIS1. 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 - Complete lesion removal with negative margins is recommended. 2. Colon, descending, polypectomy (B1): - Fragments of tubular adenoma.04/30/2025 11:12 AM [facility] LAB at 1112 ESTClinical HistoryCONSULT VDYMDLEMO00/14/2025 11:12 AM [facility] Performing LabDiagnostic interpretation performed at: [facility], [address] [place] [address] CLIA# [id number] Reversing Mill Roller: Ruben Clayton MD 04/30/2025 11:12 AM [facility] LABDisclaimerLaboratory Developed Test (LDT) Disclaimer: Performance characteristics of immunohistochemical, immunofluorescent, and chromogenic in-situ hybridization tests have been determined by the performing laboratory within the [facility] Department of Pathology and Laboratory Medicine ([facility], [facility], [facility], [facility], [facility], [facility], or [facility]) in a manner consistent with CLIA requirements. One or more of these tests may not have been cleared or approved by the FDA. The [facility] Department of Pathology and Laboratory Medicineis regulated under CLIA as qualified to perform high-complexity testing. These tests are used for clinical purposes. These should not be regarded as investigational or for research. Positive and negative controls stain appropriately.04/30/2025 11:12 AM EST [facility] LABSpecimen (Source)Anatomical Location / Laterality Collection Method / VolumeCollection TimeReceived TimeBlocks or SlidesMICROSCOPE SLIDE / Lmlegho1704/29/2025 9:49 AM EST04/29/2025 9:48 AM EST Narrative Authorizing ProviderResult TypeResult StatusImad Asaad MDSURGICAL PATHOLOGYFinal ResultPerforming OrganizationAddressCity/State/ZIP CodePhone Number [facility] [address] [place] [address], documented in this encounter Visit Diagnoses Diagnosis Person encountering health services to consult on behalf of another person Other person consulting on behalf of another person documented in this encounter
--- OUTSIDE RECORDS SUMMARY | 2025-05-12 06:38 | XMS_ITS | Clinical Summary ---
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); Neoplasm of uncertain behavior of skin05/10/2025amboo flowsheet [facility] [address] [place] [address] Za Huitron MD 05/10/20255003Duhgee68/14/2025Results Follow-Up [facility] [address] [place] [address] Kamala Sarmiento FIBER OPTIC ASSEMBLER-MASTER RIGGER Dermatopathology exam03/22/2025 2:40 PM EDTOffice Visit [facility] [address] [place] [address] Kamala Sarmiento, FIBER OPTIC ASSEMBLER-MASTER RIGGER Actinic keratosis (Primary Dx); Neoplasm of unspecified behavior of bone, soft tissue, and skin03/22/2025amboo flowsheet [facility] [address] [place] [address] Kamala Sarmiento FIBER OPTIC ASSEMBLER-MASTER RIGGER 03/22/2025Travelfrom Last 3 Months Social History Tobacco UseTypesPacks/DayYears UsedDateSmoking Tobacco: NeverSmokeless Tobacco: Never Tobacco Cessation:Counseling Given: Not Answered Sex and Gender InformationValueDate RecordedSex Assigned at BirthNot on file Legal UfbOwae2002/11/2025 10:22 AM EDTGender IdentityNot on fileSexual Orientation Not on file Plan of Treatment DateTypeDepartmentCare Team (Latest Contact Info)Iuzkmlsavwj24/08/2025 11:25 AM ESTOffice Visit [facility] [address] [place] [phone] Za Huitron MD [address] [place] [address] 09/27/2025 1:05 PM EDTOffice Visit [facility] [address] [place] [address] Kamala Sarmiento, FIBER OPTIC ASSEMBLER-MASTER RIGGER [address] [place] [address] Health MaintenanceDue DateLast DoneCommentsCT Rzyxhqmzmfxm69/10/1957Colonoscopy 1956Colorectal Cancer Aethlkwim61/10/1957FIT-DNA1956FIT1956 FOBT09/24/19564551Kfvixuybgebnh40/10/1957COVID-19 Vaccine ( season) 5107/03/2022, 05/08/2021, 09/16/2020, Additional history exists Pneumococcal Vaccine: 65+ LhkrdDvakjapsg80/09/2022Influenza VaccineCompleted 04/14/2025, 05/05/2024, 04/26/2023, Additional history exists Procedures Procedure NamePriorityDate/TimeAssociated DiagnosisCommentsSKIN REPAIRRoutine 05/10/2025 10:58 AM EST 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 Authorizing ProviderResult TypeResult StatusEmily A Elana [facility] PROCEDURE ORDERABLESFinal Result * Skin excision (05/10/2025 10:58 AM EST) Narrative Erin Wilkerson LPN - 05/10/2025 10:58 AM EST Lesion length [...] ml Authorizing ProviderResult TypeResult StatusEmily A Petitti [facility] PROCEDURE ORDERABLESFinal Result * Lesion biopsy (03/22/2025 2:29 PM EDT) [...] cc Authorizing ProviderResult TypeResult StatusNatalie A Felter FIBER OPTIC ASSEMBLER-CNPDERM PROCEDURE ORDERABLESFinal Result * Cryotherapy, skin lesion (03/22/2025 2:28 PM EDT) Narrative Authorizing ProviderResult TypeResult StatusNatalie A Felter FIBER OPTIC ASSEMBLER-CNPDERM PROCEDURE ORDERABLESFinal Result * Dermatopathology exam (03/22/2025 12:00 AM EDT)ComponentValueRef RangeTest MethodAnalysis TimePerformed AtPathologist SignatureSPECIMEN TYPE SPECIMEN: LEFT UPPER ARM [facility] XTRMBKPFTPFTDP95 Code D04.60AURORA DIAGNOSTICSPROTOCOLF - FLATAURORA DIAGNOSTICSFinal Diagnosis 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 COMMENT: This material was reviewed with Dr. Velez. [facility] DIAGNOSTICSGross TextAURORA DIAGNOSTICSMicroscopic DescriptionMicroscopic examination performed.[facility] [id number]*1[facility] DIAGNOSTICSSpecimen (Source)Anatomical Location / LateralityCollection Method / VolumeCollection TimeReceived TimeSkinTopography unknown / Jeitnij1503/22/2025 2:29 PM EDTComment: Differential Diagnosis: AK vs SCC Check Margins: No Size of lesion: 1.0 x 0.7 cm Narrative Authorizing ProviderResult TypeResult StatusNatalie A Felter FIBER OPTIC ASSEMBLER-CNPLAB PATHOLOGY ORDERABLESFinal ResultPerforming OrganizationAddressCity/State/ZIP CodePhone Number [facility] from Last [address] [place] [address]
--- OUTSIDE RECORDS SUMMARY | 2025-05-12 06:38 | XMS_ITS | Encounter Summary ---
Author Organization [facility] Address [address] [place] [address] Care Team Providers Care Histotechnologist Name Role Phone Unavailable Primary Care Provider Unavailabl e Encounter Details DateTypeDepartmentCare Team (Latest Contact Info)Xxqbpzynzly43/24/2025amboo flowsheet [facility] [address] [place] [address] Za Huitron MD [address] [place] [address] Social History Tobacco UseTypesPacks/DayYears UsedDateSmoking Tobacco: NeverSmokeless Tobacco: NeverSex and Gender InformationValueDate RecordedSex Assigned at BirthNot on fileLegal XelBqhd6002/11/2025 10:22 AM EDTGender IdentityNot on fileSexual OrientationNot on filedocumented as of this encounter Plan of Treatment DateTypeDepartmentCare Team (Latest Contact Info)Czhlhqghftv53/08/2025 11:25 AM ESTOffice Visit [facility] [place] [facility] [address] [place] [address] Za Huitron MD [address] [place] [address] 09/27/2025 1:05 PM EDTOffice Visit [facility] [address] [place] [address] Kamala Sarmiento, METAL ROASTER-RUG RENOVATOR [address] [place] [address] documented as of this encounter Visit Diagnoses Not on filedocumented in this encounter
[2025-05-12 07:33] LABS: Alanine Aminotransferase 32 U/L (16-63); Albumin Globulin Ratio 1.1; Albumin Level 3.6 g/dL (3.4-5.0); Alkaline Phosphatase 51 U/L (46-116); Anion Gap 14.8; Aspartate Amino Transferase 20 U/L (15-37); Blood Urea Nitrogen 18.0 mg/dL (7.0-18.0); Calcium 8.8 mg/dL (8.5-10.1); Carbon Dioxide 26.2 mmol/L (21.0-32.0); Chloride 104 mmol/L (98-107); Cholesterol 112 mg/dL (<=200); Estimated GFR (African America >60 (>=60 mL/min/1.73m^2); Estimated GFR (Non-African Ame >60 (>=60 mL/min/1.73m^2); Globulin 3.4 g/dL; Glucose 85 mg/dL (74-106); HDL Cholesterol 42 mg/dL (40-60); Potassium 4.0 mmol/L (3.5-5.1); Sodium 141 mmol/L (136-145); Total Protein 7.0 g/dL (6.4-8.2); Triglycerides 63 mg/dL (<=150); VLDL CHOLESTEROL 12.6 mg/dL
[2025-05-12 08:25] LABS: Hematocrit 40.8 % (42.0-54.0); Hemoglobin 13.9 g/dL (14.0-18.0); Immature Granulocytes Abs Auto 0.02 10^3/uL (0.00-0.03); Immature Granulocytes Pct Auto 0.3 % (0.0-0.5); Lymphocytes Absolute Auto 1.4 10^3/uL (1.2-3.8); Mean Corpuscular HGB Conc 34.1 g/dL (29.9-35.2); Mean Corpuscular Hemoglobin 29.9 pg (25.9-34.0); Mean Corpuscular Volume 87.7 fL (80.0-94.0); Platelet Count 177 10^3/uL (150-450); Red Blood Count 4.65 10^6/uL (4.70-6.10); White Blood Count 6.5 10^3/uL (4.0-11.0)
== END 2025-05-12 06:36 | disposition home or self-care (01) ==
LOC: LAB 06:35
PROVIDERS: PCP Internal Medicine; Visit Provider Internal Medicine
DX: E11.65 Type 2 diabetes mellitus with hyperglycemia (principal); Z79.4 Long term (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; I10 Essential (primary) hypertension; E78.00 Pure hypercholesterolemia, unspecified; Z12.5 Encounter for screening for malignant neoplasm of prostate
CPT/HCPCS: 36415; 80053; 80061; 82043; 82570; 83036; 85025; G0103